=== PATIENT | female | born 1990 | race Caucasian/White ===

== ENCOUNTER 2020-06-11 07:17 | Emergency (ER) | payer MEDICAID, SELFPAY ==
[2020-06-11 07:24] VITALS: BP 129/82; PULSE 131; RESP 18; TEMP 37.2; O2SAT 96
--- NOTE | 2020-06-11 07:54 | W.ED.GENAD ---
Discharge Plan Disposition Patient Disposition: [facility] Condition: Stable Discharge Details Clinical Impression: Paranoid delusion, Suicidal ideation Primary Care Provider: Stephon Marquez ED Provider: Grace Cramer Home Meds and New Rx's Prescriptions: No Action ziprasidone HCl 80 MG capsule 80 mg PO AM RF: 0 docusate sodium [DOK] 100 MG capsule 100 mg PO PRN RF: 0 albuterol sulfate [ProAir HFA] 8.5 GM HFA aerosol inhaler 8.5 gm Inhalation PRN RF: 0 ziprasidone HCl 60 MG capsule 60 mg PO 2 TABS HS RF: 0 medroxyprogesterone 150 MG/ML suspension 1 ml IM DIRECTED RF: 0 perphenazine 2 MG tablet 2 mg PO DAILY RF: 0 sertraline 100 MG tablet 100 mg PO DAILY RF: 0 ziprasidone HCl 20 MG capsule 20 mg PO PRN RF: 0 benztropine 2 MG tablet 2 mg PO DAILY RF: 0 lorazepam 1 MG tablet 1 mg PO TID RF: 0 hydroxyzine HCl 50 mg Tablet 50 mg PO QHS RF: 0 lithium carbonate 300 mg Capsule 900 mg PO QAM RF: 0 hydroxyzine pamoate 25 mg Capsule 25 mg PO TID RF: 0 acetaminophen 650 mg Tablet 650 mg PO Q4H PRNRF: 0 diphenhydramine HCl 25 mg Tablet 25 - 50 mg PO QHS PRN (Reason: Insomnia) RF: 0 ibuprofen 200 mg Tablet 200 mg PO Q6H PRNRF: 0 Medical Decision Making <Roberto Lewis MD - Last Filed: 06/12/20 18:25> 29-year-old female with a history of schizophrenia, reportedly eloped from [facility], where she had been residing, by report, for 10 days. Presents stating demons are inside id. Her vital signs are within normal limits except for a regular tachycardia. On exam she appears dehydrated with dry mucous membranes. She appears to responding to internal stimuli, and well questions reports that demons have been persecuting her for 3 years, she has not been sleeping, the demons are trying to kill her. She evades answering whether she has been taking her regular medications which include sertraline, Zide trazodone, Ativan, perphenazine. She initially agrees to take her morning medications and eat breakfast. A CPSO ordered to sit with patient and RIAZ paged to see patient. While being evaluated by mental health screener, the patient noted not only her response to internal stimuli/auditory hallucinations, but also that she was feeling suicidal. Her screening medical examination was expanded to include laboratory analysis. She remains medically stable for further psychiatric evaluation. I again assumed care of the patient for the afternoon/evening of June 12. At approximately 6:15 PM she became agitated and threatened to leave following her second interview with the psychiatry team. She agreed to take Ativan by mouth, she may continue to use her Nicotrol. She continues to await further and final psychiatric disposition. Lab Data Lab results reviewed: Yes I reviewed the patient's lab results. Labs: Laboratory Results - last 24 hr 06/11/20 06/11/20 06/11/20 11:35 11:50 11:50 WBC RBC Hgb Hct MCV MCH MCHC RDW Plt Count MPV Immature Gran % Neutrophils % Lymphocytes % Monocytes % Eosinophils % Basophils % Nucleated RBC % Absolute Neutrophils Absolute Lymphocytes Absolute Monocytes Absolute Eosinophils Absolute Basophils Sodium 139 Potassium 4.3 Chloride 102 Carbon Dioxide 27.9 Anion Gap 9.1 BUN 9 Creatinine 0.8 Estimated GFR/1.73 m2 >= 60.00 Glucose 110 H Calcium 9.4 Total Bilirubin 0.2 AST 10 L ALT 21 Alkaline Phosphatase 87 Total Protein 7.4 Albumin 3.8 TSH 4.38 H Urine Color Urine Clarity Urine pH Ur Specific [place] Urine Protein Urine Ketones Urine Blood Urine Nitrite Urine Bilirubin Urine Urobilinogen Ur Leukocyte Esterase Urine RBC Urine WBC Ur Epithelial Cells Urine Crystals Urine Bacteria Urine Casts Urine Mucus Ur Culture Indicated? Urine Glucose Salicylates < 2.8 Urine Opiates Screen Urine Methadone Screen Acetaminophen < 2 Ur Barbiturates Screen Ur Tricyclics Screen Ur Amphetamines Screen U Benzodiazepines Scrn Urine Cocaine Screen Ur THC Screen Ethyl Alcohol < 3.0 COVID-19 Source Cancelled SARS-CoV-2 (PCR) Cancelled 06/11/20 06/11/20 06/11/20 11:50 12:36 12:36 WBC 17.86 H RBC 4.92 Hgb 14.1 Hct 42.7 MCV 86.8 MCH 28.7 MCHC 33.0 RDW 12.3 Plt Count 357 MPV 8.9 Immature Gran % 0.6 Neutrophils % 70.2 Lymphocytes % 23.7 Monocytes % 5.0 Eosinophils % 0.2 Basophils % 0.3 Nucleated RBC % 0 Absolute Neutrophils 12.54 H Absolute Lymphocytes 4.23 H Absolute Monocytes 0.89 H Absolute Eosinophils 0.04 Absolute Basophils 0.05 Sodium Potassium Chloride Carbon Dioxide Anion Gap BUN Creatinine Estimated GFR/1.73 m2 Glucose Calcium Total Bilirubin AST ALT Alkaline Phosphatase Total Protein Albumin TSH Urine Color Yellow Urine Clarity Clear Urine pH 7.0 Ur Specific [place] 1.025 Urine Protein Negative Urine Ketones Negative Urine Blood Large H Urine Nitrite Negative Urine Bilirubin Negative Urine Urobilinogen 0.2 Ur Leukocyte Esterase Negative Urine RBC 20-50 H Urine WBC 5-10 Ur Epithelial Cells Moderate Urine Crystals Negative Urine Bacteria Few Urine Casts Negative Urine Mucus Trace Ur Culture Indicated? No/sq. contamination Urine Glucose Negative Salicylates Urine Opiates Screen Negative Urine Methadone Screen Negative Acetaminophen Ur Barbiturates Screen Negative Ur Tricyclics Screen Negative Ur Amphetamines Screen Negative U Benzodiazepines Scrn Negative Urine Cocaine Screen Negative Ur THC Screen Negative Ethyl Alcohol COVID-19 Source SARS-CoV-2 (PCR) 06/11/20 12:55 WBC RBC Hgb Hct MCV MCH MCHC RDW Plt Count MPV Immature Gran % Neutrophils % Lymphocytes % Monocytes % Eosinophils % Basophils % Nucleated RBC % Absolute Neutrophils Absolute Lymphocytes Absolute Monocytes Absolute Eosinophils Absolute Basophils Sodium Potassium Chloride Carbon Dioxide Anion Gap BUN Creatinine Estimated GFR/1.73 m2 Glucose Calcium Total Bilirubin AST ALT Alkaline Phosphatase Total Protein Albumin TSH Urine Color Urine Clarity Urine pH Ur Specific [facility] Urine Protein Urine Ketones Urine Blood Urine Nitrite Urine Bilirubin Urine Urobilinogen Ur Leukocyte Esterase Urine RBC Urine WBC Ur Epithelial Cells Urine Crystals Urine Bacteria Urine Casts Urine Mucus Ur Culture Indicated? Urine Glucose Salicylates Urine Opiates Screen Urine Methadone Screen Acetaminophen Ur Barbiturates Screen Ur Tricyclics Screen Ur Amphetamines Screen U Benzodiazepines Scrn Urine Cocaine Screen Ur THC Screen Ethyl Alcohol COVID-19 Source Nasal/nares SARS-CoV-2 (PCR) <Kingsley Brown, - Last Filed: 06/11/20 16:52> FINDINGS: Lungs: Unremarkable. No consolidation. Pleural spaces: Unremarkable. No pleural effusion. No pneumothorax. Heart/Mediastinum: Unremarkable. No cardiomegaly. Bones/joints: Unremarkable. IMPRESSION: No acute findings. Thank you for allowing us to participate in the care of your patient. Dictated and Authenticated by: Ulices Arvizu MD 06/11/2020 4:24 PM Eastern Time ([place] & [place]) <Michael Tafoya MD - Last Filed: 06/13/20 00:25> patient sleeping and awakens easily, is currently voluntary for psych placement for decompensated schizophrenia, will remain in the ED until placement found as no beds available on inpatient side to admit her. She does have a leukocytosis but has no fevers or other infectious symptoms and is likely reactive as she was reportedly agitated earlier. pt signed out to me pending psych placement, now involuntary and had second cert per sin. Is now sleeping in no distress, will continue to monitor until a bed becomes available <Grace Cramer DO - Last Filed: 06/13/20 08:06> 06/12/20 0800 --please see previous providers notes for initial presentation, exam, plan and course. 0915 --patient evaluated by [facility] at bedside. Patient is stating she wants to leave. She is still having delusions and states she is not suicidal only depressed. Patient is refusing to voluntarily stay. Discussed with Jasmin from [facility] and EE paperwork completed. 1330 --patient standing in doorway demanding that someone give her her clothes. She is raising her voice and stating that the CPSO outside her room has been yelling Fk you at her. She is stating that the staff has done nothing to help her and that they are sucking the life out of the patients . Patient was able to be redirected with her medication that is now due which is ativan and zoloft. 1530 --Case endorsed to oncoming provider to continue to monitor while awaiting placement 06/13/20 0730 -- Case endorsed plan for potential transfer to [place] today. 0800 --patient accepted for transfer to [place]. Accepting physician Dr. Rolle. Medical Records Medical records reviewed: Yes I reviewed the patient's medical records. HPI <Roberto Lewis MD - Last Filed: 06/12/20 18:25> General Mode of arrival: ambulatory. Date/Time Provider Initiated Documentation: 06/11/20 07:37. Limitations to Documentation: no limitations. Information obtained by: patient. History of Present Illness 29 year old F presents to the emergency department with the chief complaint of Demons are in my body, Quality is described as constant, Patient started experiencing this unknown No relieving factors improve symptom(s), No exacerbating factors reported . Patient notes denies chest pain, cough and headaches. Related Data Home Medications Medication Instructions Recorded Confirmed medroxyprogesterone 1 ml IM DIRECTED 06/30/13 06/11/20 benztropine 2 mg PO DAILY 01/08/14 05/10/14 lorazepam 1 mg PO TID 01/08/14 06/11/20 perphenazine 2 mg PO DAILY 01/08/14 05/10/14 sertraline 100 mg PO DAILY 01/08/14 06/11/20 ziprasidone HCl 20 mg PO PRN 01/08/14 05/10/14 albuterol sulfate [Proair Hfa] 8.5 gm INHALATION PRN inhaler 08/30/15 06/11/20 docusate sodium [Dok] 100 mg PO PRN 08/30/15 06/11/20 ziprasidone HCl 60 mg PO 2 TABS HS 08/30/15 ziprasidone HCl 80 mg PO AM 08/30/15 acetaminophen 650 mg PO Q4H PRN 06/12/20 06/12/20 diphenhydramine HCl 25 - 50 mg PO QHS PRN 06/12/20 06/12/20 hydroxyzine HCl 50 mg PO QHS 06/12/20 06/12/20 hydroxyzine pamoate 25 mg PO TID 06/12/20 06/12/20 ibuprofen 200 mg PO Q6H PRN 06/12/20 06/12/20 lithium carbonate 900 mg PO QAM 06/12/20 06/12/20 Allergies Allergy/AdvReac Type Severity Reaction Status Date / Time haloperidol [From Haldol] Allergy Severe Anaphylaxsi Unverified 06/11/20 07:34 s haloperidol lactate Allergy Severe Anaphylaxsi Unverified 06/11/20 07:34 [From Haldol] s paroxetine HCl [From Paxil] AdvReac Intermediate Nausea Unverified 06/11/20 07:34 gluten AdvReac Mild Unverified 06/11/20 07:34 General Stated Complaint: PsychEval PATRIC: 2 Review of Systems <Roberto Lewis MD - Last Filed: 06/12/20 18:25> Narrative: Eloped from care bed. No known recent illness. PFSH <Roberto Lewis MD - Last Filed: 06/12/20 18:25> Medical History BMI 45.0-49.9, adult Celiac disease Contraception management Depo Provera since 2012. 08/2015 Requests Nexplanon. Exercise-induced asthma Paranoid type schizophrenia, chronic state Adult onset. Controlled on meds. Tobacco use Surgical History repair of lacerated finger tendon L hand Family History hx of family mental illness Schizophrenia Mother Stroke Social History Smoking/Tobacco Use Status: Current every day Smoking risk assessment performed?: Yes Drug use: Never Substance use type: does not use Do you feel safe at home: No Do you feel safe in your relationship?: No Exam <Roberto Lewis MD - Last Filed: 06/12/20 18:25> Narrative Exam Narrative: GEN: awake, alert, well groomed, interactive. HEAD: Normocephalic, atraumatic ENT: Mucous membranes dry, oropharynx unremarkable, External ear exam unremarkable EYES: PERRL, EOMI NECK: Full ROM, no OSBALDO, no menigismus CHEST/RESP: Nontender, clear to auscultation bilateral, no wheeze/rhonchi/rales CARDIOVASCULAR: Regular and tachycardic, no murmur, rub grady. 2+ Rad pulse bilateral ABDOMEN: Soft, nontender, no mass. +Bowel sounds EXT: Full ROM, no edema, no rash Neuro: Grossly normal neurologic exam, conversant, interactive. Psych: Speech fluent, thoughts incongruent, affect bizarre, tangential thoughts, states she hears demons speaking to her, stating they are going to kill her Course <Roberto Lewis MD - Last Filed: 06/12/20 18:25> Vital Signs Vital signs: Vital Signs Temperature 37.2 C 06/11/20 07:24 Pulse 131 H 06/11/20 07:24 Respiratory Rate 18 06/11/20 07:24 Blood Pressure 129/82 06/11/20 07:24 Pulse Oximetry 96 06/11/20 07:24 Temperature 37.2 C 06/11/20 07:24 Pulse 131 H 06/11/20 07:24 Respiratory Rate 18 06/11/20 07:24 Blood Pressure 129/82 06/11/20 07:24 Blood Pressure Position Supine 06/11/20 07:24 Pulse Oximetry 96 06/11/20 07:24 Oxygen Delivery Method Room Air 06/11/20 07:24 Oxygen Flow Rate 0 06/11/20 07:24 Sign Out <Roberto Lewis MD - Last Filed: 06/12/20 18:25> Sign Out Data: Sign Out Comment: Voluntary, SI/Schizophrenia. Awaits placement Last updated by Roberto Lewis MD at 06/11/20 14:29 Sign Out Comment: Voluntary with SI/schizophrenia, awaiting placement. If patient does attempt to leave there is enough concern patient would need to be made involuntary. Patient given her evening dose of Geodon. She has also been given 2 doses of 2 mg Ativan during my management of her here. Awaiting placement by mental health. Anticipated discharge tomorrow between 3 PM and 7 PM. Last updated by Kingsley Brown DO at 06/11/20 22:09 Sign Out Comment: voluntary for SI and decompensated schizophrenia, no available beds inpatient here so will remain in the ED Last updated by Michael Tafoya MD at 06/11/20 23:30 Sign Out Comment: Patient now EE'ed. Holding patient in ED awaiting placement as she is now involuntary. Last updated by Grace Cramer DO at 06/12/20 15:23 Sign Out Comment: Involuntary, tentative txfr to [place] in AM Last updated by Roberto Lewis MD at 06/12/20 22:33 Sign Out Comment: is now involuntary and reportedly will go to [place] today Last updated by Michael Tafoya MD at 06/13/20 00:29
[2020-06-11] MEDS: LORazepam 1 MG TAB PO (08:02)
--- NOTE | 2020-06-11 08:45 | CMSP_ITS ---
- If Service Date Differs Date of service: 06/11/20 Time of Service: 08:45 Care Management Safety Plan Status: Voluntary VOLUNTARY FOR INPATIENT PSYCHIATRIC STABILIZATION. Patient is appropriate in all interactions since arriving at [facility]; Pt has demonstrated appropriate coping and communication skills, has articulated his or her needs and concerns and is fully engaged during staff interactions. A huddle is done with Dr. Lewis, ED provider, Clara, charge nurse, RHODA Saavedra, Jasmin, [facility], and CM. Luna Ghotra, nursing supervisor char house, is unable to attend. Safety plan has been established with patient, and care team, to adhere to patient goals, identify restrictions based on behavioral status, address nutrition, and determine allowed personal belongings, tools for hygiene and personal care. Determine level of activity including ambulation, level of supervision, visitors, and determine privileges based on behaviors and level of engagement by pt. SAFETY PLAN: 1. Will remain on suicide precautions. Permitted to remain in own clothes. 2. Will remain in room under direct supervision of one-on-one staff at all times provided by CPSO, DINORA, SCHOOL BOAT DRIVER practice coordinator. 3. May have paper cups, plates, finger foods as well as a cardboard spoon with which to eat meals. 4. Follow [facility] Management of the Admitted Behavioral Health Patient policy. 5. Comfort bath system only. 6. No personal belongings. 7. Visitors-No visitors at this time 8. Activities: Coloring book and crayons. 9. Bathroom privileges with escort in the ED. 10. Phone: No phone privileges at this time. 11. Due to VOLUNTARY status, if patient wishes to leave [facility], staff will contact [facility] Crisis Screener ([phone]) and On-Call Director Of Informatics ([phone]) as soon as possible. In the event of elopement, notify [place] [employer] ([phone]). Patient is currently voluntarily at [facility] and seeking inpatient admission when a bed becomes available. [facility] Frontline Collision Repairer will continue seeking p lacement. Please contact the Product Safety Professional Director Of Informatics ([phone]) and [facility] Collision Repairer ([phone]) for any needed changes in the Safety Plan. Safety plan has been provided to interdepartmental care team.
--- NOTE | 2020-06-11 08:45 | PDOC.CMSAFED ---
- If Service Date Differs Date of service: 06/11/20 Time of Service: 08:45 Care Management Safety Plan Status: Voluntary VOLUNTARY FOR INPATIENT PSYCHIATRIC STABILIZATION. Patient is appropriate in all interactions since arriving at [facility]; Pt has demonstrated appropriate coping and communication skills, has articulated his or her needs and concerns and is fully engaged during staff interactions. A huddle is done with Dr. Lewis, ED provider, Clara, charge nurse, RHODA Saavedra, Jasmin, [facility], and CM. Luna Ghotra, nursing property management supervisor, is unable to attend. Safety plan has been established with patient, and care team, to adhere to patient goals, identify restrictions based on behavioral status, address nutrition, and determine allowed personal belongings, tools for hygiene and personal care. Determine level of activity including ambulation, level of supervision, visitors, and determine privileges based on behaviors and level of engagement by pt. SAFETY PLAN: 1. Will remain on suicide precautions. Permitted to remain in own clothes. 2. Will remain in room under direct supervision of one-on-one staff at all times provided by CPSO, DINORA, BELT LOOP MACHINE OPERATOR hide or skin buffer. 3. May have paper cups, plates, finger foods as well as a cardboard spoon with which to eat meals. 4. Follow [facility] Management of the Admitted Behavioral Health Patient policy. 5. Comfort bath system only. 6. No personal belongings. 7. Visitors-No visitors at this time 8. Activities: Coloring book and crayons. 9. Bathroom privileges with escort in the ED. 10. Phone: No phone privileges at this time. 11. Due to VOLUNTARY status, if patient wishes to leave [facility], staff will contact [facility] Crisis Screener ([phone]) and On-Call International Recruiter ([phone]) as soon as possible. In the event of elopement, notify [place] [employer] ([phone]). Patient is currently voluntarily at [facility] and seeking inpatient admission when a bed becomes available. [facility] Frontline Sensory Scientist will continue seeking placement. Please contact the Lawnmower Repair Mechanic International Recruiter ([phone]) and [facility] Sensory Scientist ([phone]) for any needed changes in the Safety Plan. Safety plan has been provided to interdepartmental care team.
[2020-06-11 11:56] LABS: Abs Immature Grans 0.11 10^3/uL (0.0-0.06); Absolute Basophil Count 0.05 10^3/uL (0.0-0.2); Basophils % 0.3; Eosinophils % 0.2; HCT 42.7 % (36.0-46.0); HGB 14.1 g/dL (11.2-15.7); Immature Grans % 0.6; Lymphocytes % 23.7; MCH 28.7 pg (27.0-33.0); MCV 86.8 fL (80-95); MPV 8.9 fL (8.0-11.0); Neutrophils % 70.2; Nucleated RBC 0 %; Platelet Count 357 10^3/uL (130-400); RBC 4.92 10^6/uL (3.93-5.22); RDW 12.3 % (11.7-14.6); RDW-SD 39.3 fL; WBC 17.86 10^3/uL (4.4-10.8)
[2020-06-11 11:57] LABS: Absolute Eosinophil Count 0.04 10^3/uL (0.0-0.7); Absolute Lymphocyte Count 4.23 10^3/uL (1.2-3.4); Absolute Monocyte Count 0.89 10^3/uL (0.1-0.8); Absolute Neutrophil Count 12.54 10^3/uL (1.2-6.7)
[2020-06-11 12:20] LABS: Salicylate < 2.8 mg/dL (<2.8)
[2020-06-11 12:21] LABS: Acetaminophen < 2 ug/mL (10-30)
[2020-06-11 12:28] LABS: ALT 21 U/L (14-59); AST 10 U/L (15-37); Albumin 3.8 g/dL (3.4-5.0); Alkaline Phosphatase 87 U/L (46-116); Anion Gap 9.1 mmol/L (3-11); BUN 9 mg/dL (7-18); Bilirubin, Total 0.2 mg/dL (0.2-1.0); CO2 27.9 mmol/L (21.0-32.0); CREATININE 0.8 mg/dL (0.55-1.02); Calcium 9.4 mg/dL (8.5-10.1); Chloride 102 mmol/L (98-107); Glucose 110 mg/dL (74-106); Potassium 4.3 mmol/L (3.5-5.1); Sodium 139 mmol/L (136-145); TSH 4.38 uIU/mL (0.36-3.74); Total Protein 7.4 g/dL (6.4-8.2)
[2020-06-11 12:29] LABS: ETHANOL BLOOD < 3.0 mg/dL (<3)
[2020-06-11 12:45] LABS: Bilirubin Negative (Negative); Blood Large (Negative); Clarity Clear (Clear); Glucose Negative (Negative); Ketones Negative (Negative); Leukocyte Esterase Negative (Negative); Nitrite Negative (Negative); Specific Gravity 1.025 (1.005-1.025); Urobilinogen 0.2 EU/dL (Up TO 0.2)
[2020-06-11 12:58] LABS: Bacteria Few HPF (Negative); Casts Negative LPF (Negative); Crystals Negative HPF (Negative); Epithelial Cells Moderate HPF (Negative); Mucus Trace (Negative); RBC 20-50 HPF (0-2)
[2020-06-11 12:58] LABS: Source Nasal/Nares
[2020-06-11 12:59] LABS: C & S Indicated? No/Sq. Contamination
[2020-06-11 13:10] LABS: *AMPHETAMINES SCREEN URINE Negative (Negative); *BARBITURATES SCREEN URINE Negative (Negative); *BENZODIAZEPINES SCREEN URINE Negative (Negative); Cannabinoids THC Negative (Negative); Cocaine Screen,Urine Negative (Negative); METHADONE URINE SCREEN Negative (Negative); OPIATES URINE SCREEN Negative (Negative)
[2020-06-11 13:13] LABS: Tricyclic Antidepressants Negative (Negative)
[2020-06-11 13:52] LABS: COVID-19 PCR Negative (Negative)
--- NOTE | 2020-06-11 15:05 | PDOC.MHCN ---
Date of service: 06/11/20 Time of Service: 15:05 Mental Health Crisis Note Presenting Issue How did you arrive at the ED and why did you come: Pt arrived via walking after she left he Care Bed AMA. She was described as yelling, posturing with her body and spitting toward CARE Bed staff. Precipitating Factors Pt endorsed Si she could not answer HI questions. She is delusional and parnaoid thinking that people are witches and there are demons at the CARE Bed. Disposition BEHAVIOR: Pt is sleepy right now as she took her medications. She continues to display delusional thoughts and paranoia. EYE CONTACT: Pt is unable to make eye contact as she is tired. MOOD: Pt is agitated that she is not mental. AFFECT: Affect is flat. APPETITE: Pt's appetite is not assessed. SLEEP(trouble falling/staying asleep: Pt reported she has not slept in 3 years. She has been sleeping all morning. Plan Pt reluctantly accepted treatment today. She does not believe she has a mental illness but instead has a brain cancer and needs to have my cervix removed. She is at this time voluntary however. If she tries to or wants to leave she will need to reevaluated and potentially EE'd. Pt will be reassessed daily by [facility] to assess needs and placement options. Signature Clinician's Name/Title: Jasmin Corona MS, [facility] [place] Emergency Services Clinician, [facility]
--- NOTE | 2020-06-11 15:30 | DI.RAD_ITS ---
EXAM: XR PORTABLE CHEST AP CLINICAL HISTORY: r/o pneumonia TECHNIQUE: 2D digital imaging was performed. COMPARISON: CR CHEST 2 VIEWS PA,LAT from 05/10/2014 FINDINGS: The lungs are suboptimally inflated. Heart size is normal. No infiltrate, effusion or pneumothorax is seen. There is no gross evidence rib fracture. IMPRESSION: Somewhat limited exam. No acute abnormality.
[2020-06-11] MEDS: LORazepam 1 MG TAB 2 MG PO ×2 (15:54→19:17)
--- NOTE | 2020-06-11 16:05 | CMPROGNOTE_ITS ---
- If Service Date Differs Date of service: 06/11/20 Time of Service: 16:05 Care Management Progress Note S/O: Mary Grace presents in the ED after leaving the [facility] Care Bed AMA. She receives services through the PUBLIC SAFETY TELECOMMUNICATOR Program at [facility] and has a diagnosis of paranoid type schizophrenia of record. Mary Grace states that demons and witches are trying to kill her, and also reports suicidal ideation with a plan of purchasing a gun on the street and shooting herself. She is delusional and paranoid but she has remained calm since arriving at [facility]. It is unclear if Mary Grace has been taking her psych medications as prescribed. Mary Grace was evaluated by Jasmin [facility] crisis screener, this morning and was found to meet criteria for a psychiatric hospitalization. At this time, Mary Grace is voluntarily seeking placement. If she leaves or no longer wishes to be hospitalized, she will be reassessed and potentially placed on involuntary status. A: Mary Grace is a 29 year old female admitted to [facility] on 06/11/2020 for delusions, paranoia, and suicidal ideation. P: Referrals have been sent to [facility], [facility], and [facility] for [facility]. Mary Grace will remain at [facility] while [facility] continues to seek placement for her. CM will continue to follow.
--- NOTE | 2020-06-11 16:24 | DI.VRAD_ITS ---
PROCEDURE INFORMATION: Exam: XR Chest Exam date and time: 06/11/2020 4:14 PM Age: 29 years old Clinical indication: Pain; Other: Pui for covid TECHNIQUE: Imaging protocol: XR of the chest Views: 1 view. COMPARISON: CR CHEST 2 VIEWS PA,LAT 05/10/2014 8:20 PM FINDINGS: Lungs: Unremarkable. No consolidation. Pleural spaces: Unremarkable. No pleural effusion. No pneumothorax. Heart/Mediastinum: Unremarkable. No cardiomegaly. Bones/joints: Unremarkable. IMPRESSION: No acute findings. Dictated and Authenticated by: Ulices Arvizu MD. Ordering:ADELE Wynn MD
--- NOTE | 2020-06-11 17:45 | RT.EKG_ITS ---
APPROVED REPORT Exam: Resting ECG Patient Location: E HR:96 bpm ECG Measurements Heart Rate 96 AXIS MT 155 P 12 QRSd 86 QRS 28 QT 357 T 18 QTc 450 Conclusion Sinus rhythm...normal P axis, V-rate 60- 99
[2020-06-11 18:31] LABS: HCT 43.9 % (36.0-46.0); HGB 14.2 g/dL (11.2-15.7); MCH 28.3 pg (27.0-33.0); MCHC 32.3 % (32.0-36.0); MCV 87.5 fL (80-95); MPV 8.6 fL (8.0-11.0); Platelet Count 347 10^3/uL (130-400); RBC 5.02 10^6/uL (3.93-5.22); RDW 12.5 % (11.7-14.6); RDW-SD 39.8 fL; WBC 18.72 10^3/uL (4.4-10.8)
[2020-06-11 18:43] LABS: Lithium < 0.2 mmol/l (0.6-1.2)
[2020-06-11] MEDS: Ziprasidone 20 MG CAP (19:16)
--- NOTE | 2020-06-11 19:23 | NUR.NOTE ---
Nursing Note: Pt had bubble packs and bottles of home medications, 3 zip lock bags were dropped into pharmacy drop box for safe storage.
--- NOTE | 2020-06-11 19:42 | NUR.NOTE ---
Nursing Note: pt provided with incentive spirometer and was able demonstrate proper use.
[2020-06-12] MEDS: LORazepam 1 MG TAB PO ×4 (08:11→18:26)
[2020-06-12] MEDS: Sertraline 50 MG TAB 100 MG PO (08:12)
[2020-06-12] MEDS: Lithium Carbonate 300 MG CAP 900 MG PO (09:21)
[2020-06-12] MEDS: hydrOXYzine PAMOATE 25 MG CAP PO ×2 (09:22→13:45)
[2020-06-12 10:11] VITALS: RESP 16
--- NOTE | 2020-06-12 12:55 | CMSP_ITS ---
- If Service Date Differs Date of service: 06/12/20 Time of Service: 12:55 Care Management Safety Plan Status: Involuntary INVOLUNTARY FOR INPATIENT PSYCHIATRIC STABILIZATION. Safety plan has been established to meet the needs of the patient, and consideration of the care team, to adhere to patient goals, identify restrictions based on behavioral status, address nutrition, and determine allowed personal belongings, tools for hygiene and personal care. Determine level of activity including ambulation, level of supervision, visitors, and determine privileges based on behaviors and level of engagement by pt. SAFETY PLAN: 1. Will remain on SI/HI precautions. In Paper Clothes 2. Will remain in room under direct supervision of one-on-one staff at all times provided by CPSO, CELL COVERER, SHOES HAND SEWER technical instructor. 3. May have paper cups, plates, finger foods as well as a cardboard spoon with which to eat meals. 4. Follow [facility] Management of the Admitted Behavioral Health Patient policy. 5. Permitted to shower daily at RN discretion when ED volume is low. 6. No personal belongings. 7. Visitors: None at this time. 8. Activities: Music tablet, coloring books, crayons, and other activities at RN discretion. 9. Bathroom privileges with escort. 10. Phone: May make and receive phone calls based on behavior and at RN discretion. 11. Due to INVOLUNTARY status, patient is being held at [facility] by the Department of Mental Health ([facility]) until 2nd certification by [facility] Psychiatrist can be performed (within 24 hours). Staff will provide de-escalation support (CPI) as needed. If patient wishes to leave [facility], staff will contact [facility] Crisis Screener ([phone]) and On-Call Bottle And Glass Inspector ([phone]) as soon as possible. In the event of elopement, notify [place] [employer] ([phone]). Patient is currently involuntarily at [facility]. [facility] Frontline Government Clerk will continue seeking placement. Please contact the Litigation Attorney Associate Bottle And Glass Inspector ([phone]) for any needed changes to Safety Plan. Safety plan has been provided to interdepartmental care team. Patient will be transported by uMentioned at time of discharge.
--- NOTE | 2020-06-12 13:36 | CMPROGNOTE_ITS ---
- If Service Date Differs Date of service: 06/12/20 Time of Service: 13:36 Care Management Progress Note S/O: Mary Grace was evaluated by Jasmin, [facility] Crisis Screener, this morning and subsequently placed on involuntary status. She is laying in bed when CM comes to meet with her. Mary Grace reports we are being abusive to her by holding her in a room and not allowing her to leave. CM explains to her that she is currently on involuntary status and has to remain at the hospital. BRANDON briefly explains the EE process to Mary Grace and tells her she will be speaking with a State psychiatrist via zoom either this evening or in the morning. The psychiatrist will then decide whether she remains at [facility] while [facility] seeks placement for her or whether she is discharged. Mary Grace reports that Jasmin has made up a bunch of lies about her. She states she is on a POV (Order of Non-Hospitalization) and that a communications engineering technician ordered that she not be hospitalized because she is psychologically well. Mary Grace shares that she came to [facility] from the Care Bed because she did not feel well and needed medical treatment. She goes on to say that there is nothing wrong with her mental health. She shares that she has plans with Anat Blackburn, her [facility] LIAISON INSPECTION LABORATORY ASSISTANT case filler, who is picking her up in a couple of days to take her shopping for items that she is in need of. She asks to speak with Anat. BRANDON calls the [facility] [place] office and leaves a message for Anat, asking that she call the ED to speak with Mary Grace. A: Mary Grace is a 29 year old female admitted to [facility] on 06/11/2020 for a psychiatric evaluation. P: [facility], [facility], and [facility] for review. Mary Grace will remain at [facility] on involuntary status while [facility] continues to seek placement for her.
--- NOTE | 2020-06-12 13:36 | PDOC.ERCMPRO ---
- If Service Date Differs Date of service: 06/12/20 Time of Service: 13:36 Care Management Progress Note S/O: Mary Grace was evaluated by Jasmin, [facility] Crisis Screener, this morning and subsequently placed on involuntary status. She is laying in bed when CM comes to meet with her. Mary Grace reports we are being abusive to her by holding her in a room and not allowing her to leave. CM explains to her that she is currently on involuntary status and has to remain at the hospital. BRANDON briefly explains the EE process to Mary Grace and tells her she will be speaking with a State psychiatrist via zoom either this evening or in the morning. The psychiatrist will then decide whether she remains at [facility] while [facility] seeks placement for her or whether she is discharged. Mary Grace reports that Jasmin has made up a bunch of lies about her. She states she is on a POV (Order of Non-Hospitalization) and that a depalletizer operator ordered that she not be hospitalized because she is psychologically well. Mary Grace shares that she came to [facility] from the Care Bed because she did not feel well and needed medical treatment. She goes on to say that there is nothing wrong with her mental health. She shares that she has plans with Anat Blackburn, her [facility] MIGRATION SPECIALIST case loader operator, who is picking her up in a couple of days to take her shopping for items that she is in need of. She asks to speak with Anat. BRANDON calls the [facility] [place] office and leaves a message for Anat, asking that she call the ED to speak with Mary Grace. A: Mary Grace is a 29 year old female admitted to [facility] on 06/11/2020 for a psychiatric evaluation. P: [facility], [facility], and [facility] for review. Mary Grace will remain at [facility] on involuntary status while [facility] continues to seek placement for her.
--- NOTE | 2020-06-12 14:03 | PDOC.MHCN ---
Date of service: 06/12/20 Time of Service: 14:04 Mental Health Crisis Note Presenting Issue How did you arrive at the ED and why did you come: How did you arrive at the ED and why did you come: Pt arrived via walking after she left he Care Bed AMA. She was described as yelling, posturing with her body and spitting toward CARE Bed staff. Precipitating Factors Pt admitted to having SI this am when this clinician met with her. She changed her mind when She denied HI. Disposition BEHAVIOR: Pt is still presenting as delusional and paranoid. She was cooperative up until she learned that she was going to be placed on EE status because she would not agree to voluntary treatment. EYE CONTACT: good MOOD: depressed AFFECT: flat APPETITE: good SLEEP(trouble falling/staying asleep: reported good Plan Pt was placed on EE status. Referrals were sent to [facility], [facility] and [facility]. Pt will remain at [facility] and be screened twice daily by [facility] until placement is found. Pt's team was updated on the status of Pt not being put on an EE.
--- NOTE | 2020-06-12 17:49 | NUR.NOTE ---
Nursing Note: Patient's next of kin, her grandmother Veronika Harris, called for an update on patient. She expresses her concern and worry regarding the patient and that she is alone suffering in this condition. She understands that her phone call may trigger the patient's behaviors, especially right before her 2nd certification. Grandmother seems very supportive and would like to be notified when the patient is transported to another facility. Phone number on file.
[2020-06-12 20:20] VITALS: BP 121/81; PULSE 106; RESP 16; TEMP 36.7; O2SAT 97
--- NOTE | 2020-06-12 22:36 | NUR.NOTE ---
Nursing Note: CPSO switched with alternate, as pt states she's stabbing things into my spine etherially and pt's behavior appeared to be deescalated by the offer of a swap. Pt has reentered room and has no issue with current CPSO.
[2020-06-12] MEDS: LORazepam 1 MG TAB (22:58)
[2020-06-12] MEDS: hydrOXYzine HCL 50 MG TAB PO (23:00)
[2020-06-13 08:16] VITALS: BP 136/100; PULSE 112; RESP 20; TEMP 36.7; O2SAT 98
[2020-06-13] MEDS: Lithium Carbonate 300 MG CAP 900 MG PO (08:18)
[2020-06-13] MEDS: LORazepam 1 MG TAB PO (08:18)
[2020-06-13] MEDS: hydrOXYzine PAMOATE 25 MG CAP PO (08:18)
[2020-06-13] MEDS: Sertraline 50 MG TAB PO (08:19)
[2020-06-13 09:04] VITALS: BP 136/100; PULSE 112; RESP 20; TEMP 36.7; O2SAT 98
--- NOTE | 2020-06-13 09:07 | PDOC.ERCMPRO ---
- If Service Date Differs Date of service: 06/13/20 Time of Service: 08:20 Care Management Progress Note Mary Grace has been accepted for placement by the [facility]. She is scheduled to leave via mechanical assembly transport at 9:00 am this morning. Mary Grace is up when comes to meet with her. She reports she has been to the [facility] before, so she knows what to expect. She declines breakfast but does accept a cup of coffee. Mary Grace is calm and cooperative this a.m. and she leaves with [employer] without incident. - MH Services (Omit if N/A) Current MH Services: Psychiatric Inp ([facility])
--- NOTE | 2020-06-21 16:00 | PDOC.MHCN_ITS ---
Date of service: 06/21/20 Time of Service: 16:01 Mental Health Crisis Note Presenting Issue How did you arrive at the ED and why did you come: PT arrived to the [facility] ER 06.11.2020 early in the morning after leaving the [facility] CARE Bed AMA. Pt had voluntarily been at the CARE Bed since 06.04.2020. Precipitating Factors Pt endorsed current SI however unable to answer how long, or persistent thoughts have been. Disposition BEHAVIOR: Pt is lethargic and difficult to get a full assessment on. Will have to try once the meds wear off. EYE CONTACT: poor MOOD: Tired with some delusions and paraanoia AFFECT: Sleepy APPETITE: not assessed today SLEEP(trouble falling/staying asleep: Pt reports she has not slept in 3 years. Plan Pt was asked numerous times to voluntarily accept treatment in a psychiatric facility. Pt's response was tangential I have brain cancer this is not mental health. I need to have my cervix removed because of what happened to me. She did agree reluctantly to voluntary treatment and was informed that if she wanted to leave she would need to be assessed again prior to her leaving. Pt will need to be re-assessed. Due to the Pt's disposition it is this clinician's professional opinion that if she were to leave the hospital and be in the community her delusions place her at great risk of harm to self and others. Hospital placement is the only treatment appropriate at this time. Referrals sent to [facility]. [facility] was made aware of the voluntary acceptance. This clinician informed her team of the status. Signature Clinician's Name/Title: Jasmin Corona MS, [facility] Emergency Services Clinician, [facility]
== END 2020-06-13 08:40 | disposition short-term general hospital (02) ==
PROVIDERS: Emergency Medicine; Student in an Organized Health Care Education/Training Program; Emergency Provider Physician Assistant; PCP Internal Medicine
DX: F22 Delusional disorders (principal); R45.851 Suicidal ideations
CPT/HCPCS: 36415; 80053; 80307; 81025; 85027; 87635; 93005; 99285; 71045; 80178; 80320; 80329; 81003; 81015; 84443; 85025; 93010; 99284; J3490

== ENCOUNTER 2021-08-16 23:11 | Inpatient (IN) | payer MEDICAID, SELFPAY ==
[2021-08-16] VITALS (7 sets, daily range): BP systolic 148; BP diastolic 74; PULSE 107–121; RESP 17–28; TEMP 36.8; O2SAT 97–98
--- NOTE | 2021-08-16 23:04 | HPE_ITS ---
Date of service: 08/16/21 Time of Service: 23:05 Assessment and Plan Assessment and plan (1) DKA (diabetic ketoacidosis): Start date: 08/16/21 Status: Acute Assessment and plan: This is a 30-year-old lady who presents with DKA and new onset type 1 diabetes mellitus did not come for hospital emergency room. She was transferred to this facility because of lack of ICU level care. She will be on DKA protocol in the ICU with close monitoring. Overall she is doing well but may be difficult to extubate because of her mental illness. (2) Hypokalemia: Start date: 08/16/21 Status: Acute Assessment and plan: Replete IV as treatment for DKA per protocol. (3) Nausea and vomiting due to hyperglycemia: Status: Acute Assessment and plan: Symptomatic treatment with IV hydration. (4) Paranoid delusion: Status: Chronic Assessment and plan: Continue outpatient medications and monitor behavior. History of Present Illness History of Present Illness Chief Complaint: Nausea with vomiting and diarrhea, polydipsia Narrative: This is a 30-year-old female patient transferred from [facility] ED in COUNTS [facility] 234 BEDS AT THE [facility] with new onset insulin-dependent diabetes mellitus. She has a significant psychiatric history and with her altered mental status and symptoms of slight fatigue she was not noted to be necessarily in trouble other than possibly dehydrated with her high blood loss presenting with nausea, vomiting and diarrhea. She states that she was more thirsty than usual and urinating more than usual when interviewed. She is a poor historian. She offers no other significant history other than being overweight which is chronic but no other caregivers available for further history. He was transferred to this facility for ICU level of care for treatment of DKA and hypokalemia in light of her metabolic acidosis. Patient gives history that she had diarrhea and increased thirst for up to a week and then for the last 3 days has not been having diarrhea because of lack of intake. Patient presents to the ED at [facility] as he felt very dry, thirsty and was still having polyuria. Review of Systems Narrative: 13 point review system otherwise unrevealing or unavailable with patient being a poor historian with no accompanied caregivers. She does state that her legs have been hurting more since she was having blood loss and she has some abdominal discomfort with her diarrhea. She denies melena or hematochezia. She had no hematemesis. There is no fever or chills. PFSH All Active Problems (Updated 08/17/21 @ 06:40 by Alexander Conn) Nausea and vomiting due to hyperglycemia (Acute) Hypokalemia (Acute) DKA (diabetic ketoacidosis) (Acute) Paranoid delusion (Chronic) Suicidal ideation (Acute) Medical History BMI 45.0-49.9, adult Celiac disease Contraception management Depo Provera since 2012. 08/2015 Requests Nexplanon. Exercise-induced asthma Paranoid type schizophrenia, chronic state Adult onset. Controlled on meds. Tobacco use Surgical History repair of lacerated finger tendon L hand Family History hx of family mental illness Schizophrenia Mother Stroke Social History Smoking/Tobacco Use Status: Current every day Smoking risk assessment performed?: Yes Drug use: Never Substance use type: does not use Do you feel safe at home: No Do you feel safe in your relationship?: No Meds Allergies and Home Medications Allergies Allergy/AdvReac Type Severity Reaction Status Date / Time haloperidol [From Haldol] Allergy Severe Anaphylaxsi Unverified 06/11/20 07:34 s haloperidol lactate Allergy Severe Anaphylaxsi Unverified 06/11/20 07:34 [From Haldol] s paroxetine HCl [From Paxil] AdvReac Intermediate Nausea Unverified 06/11/20 07:34 gluten AdvReac Mild Unverified 06/11/20 07:34 Home Medications Medication Instructions Recorded Confirmed Type medroxyprogesterone 150 mg/mL 1 ml IM DIRECTED 06/30/13 06/11/20 History intramuscular suspension benztropine 2 mg tablet 2 mg PO DAILY 01/08/14 05/10/14 History lorazepam 1 mg tablet 1 mg PO TID 01/08/14 06/11/20 History perphenazine 2 mg tablet 2 mg PO DAILY 01/08/14 05/10/14 History sertraline 100 mg tablet 100 mg PO DAILY 01/08/14 06/11/20 History ziprasidone HCl 20 mg capsule 20 mg PO PRN 01/08/14 05/10/14 History albuterol sulfate 90 mcg/actuation 8.5 gm inhalation PRN 08/30/15 06/11/20 History aerosol inhaler (ProAir HFA) docusate sodium 100 mg capsule 100 mg PO PRN 08/30/15 06/11/20 History (DOK) ziprasidone HCl 60 mg capsule 60 mg PO 2 TABS HS 08/30/15 History ziprasidone HCl 80 mg capsule 80 mg PO AM 08/30/15 History acetaminophen 650 mg tablet 650 mg PO Q4H PRN 06/12/20 06/12/20 History diphenhydramine HCl 25 mg tablet 25 - 50 mg PO QHS PRN Insomnia 06/12/20 06/12/20 History hydroxyzine HCl 50 mg tablet 50 mg PO QHS 06/12/20 06/12/20 History hydroxyzine pamoate 25 mg capsule 25 mg PO TID 06/12/20 06/12/20 History ibuprofen 200 mg tablet 200 mg PO Q6H PRN 06/12/20 06/12/20 History lithium carbonate 300 mg capsule 900 mg PO QAM 06/12/20 06/12/20 History Exam Narrative Exam Narrative: General: Morbidly obese in moderate distress from her acute illness, flattened affect with good eye contact. Alert and oriented to person place at least. HEENT: Normocephalic, eyes with pupils equal and reactive light symmetrically, extraocular movements active sclera anicteric. Oropharynx with dry mucosa and fair dentition. Neck: Supple without JVD. Back: Stooped posture without CVA tenderness. Lungs: Clear to auscultation and percussion. Fair aeration. Breast: Exam deferred. Heart: Regular rate and rhythm with no murmurs or gallops appreciated. Abdomen: Obese contour, soft but tender diffusely without rebound but no guarding. Bowel sounds positive all quadrants. Genitalia/rectal: Exam deferred. Extremities: Nonpitting edema lower extremities, good cap refill, no clubbing, cyanosis or pitting edema. Joints have no swelling with fair range of motion. Skin: Pale, warm and dry with decreased turgor. Neuro: Cranial nerves II through XII grossly intact, no focal motor deficits. Psych: Flattened affect with depressed mood. Slowed mentation with monotonous slow voice. No abnormal thought processes. Remote and recent memory grossly intact. Patient is poor historian. Results Labs Result diagrams: 08/17/21 04:30 08/17/21 04:30
--- OUTSIDE RECORDS SUMMARY | 2021-08-16 23:27 | XMS_ITS | Continuity of Care Document ---
:1990 Author Organization [facility] Address [address] [place] [address] Care Team Providers Name Role Phone Sana Lo Primary Care Physician Allergies, Adverse Reactions, Alerts Allergen Type Severity Reaction Last Updated Verified Status gluten Adverse Reaction Unknown February 08, 2019 Y Active haloperidol Adverse Reaction Unknown February 08, 2019 Y Active paroxetine Adverse Reaction Unknown February 08, 2019 Y Active Medications Active Medications Medication Units Route Start Date Status Olanzapine MG February 07, 2019 Active Discontinued Medications Medication Units Route Start Date Discontinued Date Status [place] Carbonate ORAL February 07, 2019 February 07, 2019 Discontinued Trazodone February 07, 2019 February 07, 2019 Di scontinued Benztropine February 07, 2019 February 07, 2019 D iscontinued Lorazepam February 07, 2019 February 07, 2019 Di scontinued Fluoxetine MG February 07, 2019 February 07, 2019 Di scontinued Hydroxyzine Pamoate February 07, 2019February Discontinued Melatonin MG February 07, 2019 February 07, 2019 Di scontinued Melatonin MG February 07, 2019 February 07, 2019 Di scontinued Cariprazine [Vraylar] MG February 07, 2019 February 07, 2019 Discontinued Problem List Active Problems Medical Problem Onset Date Status UTI (urinary tract infection) Active Adjustment disorder with anxiety Active Acute bronchitis November 25, 2016 Auditory hallucinations Active Hallucination, visual Active Inactive/Resolved Problems Medical Problem Onset Date Status Laceration of index finger of left hand without complication Inactive Chronic cough Inactive Tobacco use disorder Inactive Procedures Procedure Date Status US Extremity NonVas RT Limited March 12, 2010 completed Shoulder 2 vw Min RT March 06, 2010 completed Group A Streptococcus Screen (BRETT) compl eted Urine Culture active Relevant Diagnostic Tests and/or Laboratory Data Laboratory Results Test Date/Time Result Interp. Ref. Range Result Comment Urine RBC None seen /hpf Urine WBC 20-40 /hpf High Urine Squamous 2+ /hpf Epithelial Cells Urine Bacteria 4+ /hpf High Urine Mucus Present Urine Culture Done Yes URINE SPECIMEN CULTURED Urine Test Negative Urine Methadone Screen Negative ng/mL Microbiology Results Procedure Source Result Collection Date/Time Result Date/Time Advance Directives Advance Directive Response Recorded Date/Time Do we have a copy on file here at [facility]? No J 2018 2:16pm Does patient have an Advanced Directive? No March 06, 2010 10:42am Pt has a Living Will? No March 06, 2010 10:42am Pt has a Power of Truck Caterer? No March 06, 2010 10:42am Chief Complaint and Reason for Visit Encounter Admit Date Chief Complaint Reason for Visit Departed Emergency February 08, 2019 6:44am [facility] Discharge Instructions Additional Discharge Instructions You have an appointm ent tomorrow at 11 AM with [facility] Also have an [facility] 1 PM tomorrow. Please be sure to keep these important appointments. No Instructions/Education Provided Hospital Discharge Medications Medication Dose Units Route Sig Qty Days Order Date Status In structions Olanzapine MG February 07 Active 2018 [place] ORAL February 07, Discontinue d Carbonate 2018 Trazodone February 07, Discontin ued 2019 Benztropine February 07, Discont inued 2019 Lorazepam February 07, Discontin ued 2019 Fluoxetine MG February 07, Disconti nued 2018 Hydroxyzine February 07 Discont inued Pamoate 2019 Melatonin MG February 07, Discontin ued 2019 Melatonin MG February 07, Discontin ued 2019 Cariprazine MG February 07, Discont inued 2019 Encounters Encounter Facility Location Admit/Visit Discharge/Departure Atte nding Date Date Provider Departed [facility] Emergency February 08February 08, 2019 [facility] 2018 6:44am 1:14pm Departed [facility] Emergency February 07February 07, 2019 [facility] 2018 9:03pm 10:10pm Departed [facility] Emergency January 13January 13, 2019 [facility] 2018 5:35pm 6:18pm Departed [facility] Emergency September 08, 2018 September 08, 2018 2:15pm [facility] Department 1:00pm Departed [facility]February 20, [facility] 20, 2017 Kuldeep chin [facility] 2016 12:00am Con version ovider Office Visit Departed [facility] November 25November 25, 2016 Jaclyn [facility] 2016 12:00am Rhonda simon ovider Office Visit Departed [facility] April 14, April 14, 2013 Hal ent, [facility] in 2013 12:00am Convers ion ovider Surgery Office [facility] 10[facility] Laboratory July 09, 2009 July 09, 2009 11:59pm [facility] 5[facility]34[facility] Ana Laura [facility]erred Lab June 25June 25, 2009 [facility] 8:23[facility] Ana Laura [facility] April 09April 09, 2008 [facility] 12[facility]00[facility] March 15March 15, 2008 [facility] 2008 12:00am [facility] Emergency March 12, March 12, 2008 [facility] Department 2008 12:00am [facility] February 26February 27, 2008 [facility] 2007 12:00am [facility] Outpatient October 01, 2005 October 01, 2005 [facility] Con[facility] 12:00am Ana Laura [facility] Synergy October 12October 12, 2001 [facility] 2001 12:00am [facility] November 28November 28, 1998 Kuldeep vázquez [facility] Conversion 1998 12:00am [facility] May 18May 18, 1998 [facility] Care 1998 12:00am [facility] CONV Misc Comp March 08March 08, 1899 Med ent, Physician/Pr Addiction Mgmt Pain location 1899 12:00am Con version ovider Office Visit Functional Status Query Response Date Recorded Comment Comprehension Ability Unable to Comprehend February 08, 2019 7:46 am Query Response Date Recorded Comment Living Situation Home February 08, 2019 1:13pm Immunizations Immunization Name Date Given Type Tdap September 08, 2018 Administered Payers Payer Name Policy Type Covered Covered Relationship Subscriber Sub scriber Id Constitution Party Constitution Party Id FEP BLUE Commercial BALA [id number] Grandchild BALA EUBANKS [id number] CROSS (DO EUBANKS NOT USE) MEDICAID OF Medicaid [place] [id number] Self/Same [place] [id number] [place]A Patient EUBANKS SELF PAY Personal [place] Medicaid [place] [id number] [place] [id number] (DO NOT EUBANKS Patient EUBANKS USE) Plan of Care No Known Plan of Care Information Social History Query Response Date Recorded Comment Alcohol Use Yes February 08, 2019 8:45am socially Smoking Status Current every day smoker February 08, 2019 8:45am substance use type marijuana February 08, 2019 8:45am Query Response Start Date Stop Date Smoking Status Current every day smoker Vital Signs Vital Reading Result Reference Range Collection Date/ Time Height 5 ft 5 in February 07, 2019 9:05pm Weight 115.666 kg February 08, 2019 6:47am Temperature 98.6 F 97.6 F-99.6 F February 08, 2019 6:47am Pulse 102 BPM 60-100 February 08, 2019 6:47am Respiration 16 RPM 12-24 February 08, 2019 6:47am Pulse Oximetry 97 % 95-100 February 08, 2019 6:47am Blood Pressure Systolic 123 100-140 February 08, 2019 6:47am Blood Pressure Diastolic 93 50-85 [facility] 2018 6:47am Body Mass Index 44.6 February 20 7 3:38pm
--- OUTSIDE RECORDS SUMMARY | 2021-08-16 23:27 | XMS_ITS | Continuity of Care Document ---
:[address] [facility] Address [address] [place] [address] Care Team Providers Name Role Phone Sana Lo Primary Care Physician Allergies, Adverse Reactions, Alerts Allergen Type Severity Reaction Last Updated Verified Status haloperidol Adverse Reaction Unknown February 08, 2019 Y Active paroxetine Adverse Reaction Unknown February 08, 2019 Y Active Medications Active Medications Medication Units Route Start Date Status Ziprasidone Hcl UNK Unknown February 08, 2019 Active Sertraline UNK Unknown February 08, 2019 Active Lorazepam UNK ORAL February 08, 2019 Active Geodon February 08, 2019 Active Marijuana February 08, 2019 Active Olanzapine MG February 07, 2019 Active Discontinued Medications Medication Units Route Start Date Discontinued Date Status [place] Carbonate ORAL February 07, 2019 February 07, [...] Active Problems Medical Problem Onset Date Status Acute psychosis Active UTI (urinary tract infection) Active Adjustment disorder [...] Streptococcus Screen (BRETT) compl eted Urine Culture completed Relevant Diagnostic Tests and/or Laboratory Data Laboratory [...] have [place] [facility] [place] J trevor 2018 2:16pm Does patient have an Advanced Directive? No March 06, 2010 10:42am Pt has a Living Will? No March 06, 2010 10:42am Pt has a Power of Cargo Broker? No March 06, 2010 10:42am Chief Complaint and Reason for Visit Encounter Admit Date Chief Complaint Reason for Visit Departed Emergency January 13, 2019 5:35pm [facility] Discharge Instructions No known hospital discharge instructions. Hospital Discharge Medications Medication Dose Units Route Sig Qty Days Order Date Status In structions Ziprasidone Hcl UNK Unknown February 08, Ac tive 2018 Sertraline UNK Unknown February 082018 Lorazepam UNK ORAL February 08 Active 2019 Geodon February 08 Active 2019 Marijuana February 08 Active 2019 Olanzapine MG February 07 Active 2019 [place] ORAL February 07, Discontinue d Carbonate 2019 Trazodone February 07, Discontin ued 2019 Benztropine February 07, Discont inued 2019 Lorazepam February 07, Discontin ued 2019 Fluoxetine MG February 07, Disconti nued 2018 Hydroxyzine February 07, Discont inued Pamoate 2019 Melatonin MG February 07, Discontin ued 2019 Melatonin MG February 07, Discontin ued 2019 Cariprazine MG February 07, Discont inued 2019 Encounters Encounter Facility Location Admit/Visit Discharge/Departure Atte nding Date Date Provider Departed [facility] Emergency February 08February 09, 2019 [facility] Department 2018 10:48pm 10:17am Departed [facility] Emergency February 08February 08, 2019 [facility] Department 2018 6:44am 1:14pm Departed [facility] Emergency February 07February 07, 2019 [facility] Department 2018 9:03pm 10:10pm Departed [facility] Emergency January 13January 13, 2019 [facility] Department 2018 5:35pm 6:18pm Departed [facility] Emergency September 08, 2018 September 08, 2018 2:15pm [facility] Department 1:00pm Departed [facility] Urgent [facility] February 20February 20, [facility] 2016 8:36pm 8:37pm Tony Departed [facility] February 20February 20, 2017 Kuldeep chin [facility]ician[facility] 2016 12:00am Con version ovider Office Visit Departed [facility] November 25November 25, 2016 Jaclyn [facility] 2016 12:00am Rhonda alfred ovider Office Visit Departed [facility] April 14, April 14, 2013 Med ent, [facility]ician[facility] in 2013 12:00am Convers ion ovider Surgery Office Visit Registered [facility] 2010 1:34pm [facility] Registered [facility] March 06, [facility] 10:41am [facility] July 09, 2009 July 09, 2009 11:59pm [facility] 5:34[facility] Ana [facility] June 25June 25, 2009 [facility] 2009 8:23pm [facility] 09April 09, 2008 Syed marquis [facility] 2008 12:00am [facility] March 15March 15, 2008 [facility] 2008 12:00am [facility] March 12, March 12, 2008 [facility] Department 2008 12:00am [facility] February 26February 27, 2008 [facility] 2007 12:00am [facility] October 01, 2005 October 01, 2005 [facility] Con[facility] 12:00am Ana [facility] October 12October 12, 2001 [facility] 2001 12:00am [facility] November 28November 28, 1998 Kuldeep vázquez [facility] Conversion 1998 12:00am Heather [facility] May 18May 18, 1998 [facility] Care 1998 12:00am [facility] CONV Misc Comp March 08March 08, 1899 Med ent, Physician/Pr Addiction Mgmt Pain location 1899 12:00am Con version ovider Office Visit Functional Status Query Response Date Recorded Comment Comprehension Ability Understands Concepts February 08, 2019 11:1 2pm Query Response Date Recorded Comment Living Situation Home February 08, 2019 10:55pm Immunizations Immunization Name Date Given Type Tdap September 08, 2018 Administered Payers Payer Name Policy Type Covered Covered Relationship Subscriber Sub scriber Id Alliance Party Alliance Party Id FEP SPENSER MCKENNA [id number] Granddorie EUBANKS [id number] CROSS (DO EUBANKS NOT USE) MEDICAID OF Medicaid [place] [id number] Self/[place] [id number] [place] EUBANKS Patient EUBANKS SELF PAY Personal [place] [id number] Self/Same as [place] [id number] (DO NOT EUBANKS Patient EUBANKS USE) Plan of Care No Known Plan of Care Information Social History Query Response Date Recorded Comment Alcohol Use Yes February 08, 2019 11:04pm sociall y Smoking Status Current every day smoker February 08, 2019 11:04p m substance use type marijuana February 08, 2019 11:04pm Query Response Start Date Stop Date Smoking Status Current every day smoker Vital Signs Vital Reading Result Reference Range Collection Date/ Time Height 5 ft 5 in February 07, 2019 9:05pm Weight 116.573 kg February 08, 2019 10:51pm Temperature 97.5 F 97.6 F-99.6 F February 09, 2019 9:48am Pulse 73 BPM 60-100 February 09, 2019 9:48am Respiration 18 RPM 12-24 February 08, 2019 10:51pm Pulse Oximetry 99 % 95-100 February 09, 2019 9:48am Blood Pressure Systolic 114 100-140 February 09, 2019 9:48am Blood Pressure Diastolic 71 50-85 [facility] 2018 9:48am Body Mass Index 44.6 February 20 7 3:38pm
--- OUTSIDE RECORDS SUMMARY | 2021-08-16 23:27 | XMS_ITS | Continuity of Care Document ---
:1990 Author Organization [facility] Address [address] [place] [address] Care Team Providers Name Role Phone Sana [...] Units Route Start Date Discontinued Date Status [place] Carbonate ORAL February 07, 2019 February 07, [...] have a copy on file here [place] [facility] No J trevor 2018 2:16pm Does patient have an Advanced Directive? No March 06, 2010 10:42am Pt has a Living Will? No March 06, 2010 10:42am Pt has a Power of Chief Investment Officer? No March 06, 2010 10:42am Chief Complaint [...] 2019 Olanzapine MG February 07 Active 2019 [place] ORAL February 07, Discontinue d Carbonate 2019 [...] Discharge/Departure Atte nding Date Date Provider Departed [facility] Emergency February 08February 09, 2019 [facility] Department 2018 10:48pm 10:17am Departed [facility] Emergency February 08February 08, 2019 [facility] Department 2018 6:44am 1:14pm Departed [facility] Emergency February 07February 07, 2019 [facility] Department 2018 9:03pm 10:10pm Departed [facility] Emergency January 13January 13, 2019 [facility] Department 2018 5:35pm 6:18pm Departed [facility] Emergency September 08, 2018 September 08, 2018 2:15pm [facility] Department 1:00pm Departed [facility] February 20February 20, [facility] 8:36pm 8:37pm Tony Departed [facility] February 20February 20, 2017 Kuldeep chin [facility]ician[facility] 2016 12:00am Con version ovider Office Visit Departed [facility] November 25November 25, 2016 Jaclyn [facility] 2016 12:00am Rhonda alfred ovider Office Visit Departed [facility] April 14, April 14, 2013 Med ent, Physician[facility] in 2013 12:00am Convers ion ovider Surgery Office Visit Registered [facility] 2010 1:34pm [facility] Registered [facility] March 06, [facility] 2009 10:41am [facility] July 09, 2009 July 09, 2009 11:59pm [facility] 5:34[facility] Ana [facility] June 25June 25, 2009 [facility] 8:23pm Ana [facility] April 09April 09, 2008 Syed marquis [facility] 2008 12:00am [facility] March 15March 15, 2008 [facility] 2008 12:00am [facility] March 12, March 12, 2008 [facility] Department 2008 12:00am [facility] February 26February 27, 2008 [facility] 2007 12:00am [facility] October 01, 2005 October 01, 2005 [facility] Con[facility] 12:00am Ana [facility] October 12October 12, 2001 [facility] 2001 12:00am [facility]n [facility] November 28November 28, 1998 Kuldeep vázquez [facility] Conversion 1998 12:00am Heather [facility] Inter[facility] May 18May 18, 1998 [facility] Care 1998 12:00am [facility] CONV Misc Comp March 08March 08, [...] Covered Covered Relationship Subscriber Sub scriber Id Republican Republican Id FEP SPENSER MCKENNA [id number] Granddorie EUBANKS [id number] CROSS (DO EUBANKS NOT USE) MEDICAID OF Medicaid [place] [id number] Self/Same as [place] [id number] [place] EUBANKS Patient EUBANKS SELF PAY Personal [place] [id number] Self/Same [place] [id number] (DO NOT EUBANKS Patient EUBANKS USE) [...] 2019 9:48am Blood Pressure Diastolic 71 50-85 [facility] 2018 9:48am Body Mass Index 44.6 February 20 7 3:38pm
--- OUTSIDE RECORDS SUMMARY | 2021-08-16 23:27 | XMS_ITS | Continuity of Care Document ---
:1990 Author Organization [facility] Address [address] [place] [address] Care Team Providers Name Role Phone Sana Lo Primary Care Physician Allergies, Adverse Reactions, Alerts Allergen Type Severity Reaction Last Updated Verified Status haloperidol Adverse Reaction Unknown February 08, 2019 Y Active paroxetine Adverse Reaction Unknown February 08, 2019 Y Active Medications Active Medications Medication Dose Units Route Sig Qty Start Date Status In structions Sertraline UNK Unknown February 082018 Lorazepam UNK ORAL February 08, Active 2019 Marijuana February 08 2019 Risperidone 2 MG ORAL DAILY March 01, Active 2019 Olanzapine 10 MG ORAL DAILY March 01, Active DOSING REGIMENT: [Zyprexa] 2019 take 2 0 mg in AM daily an d 10 mg in PM daily Discontinued Medications Medication Dose Units Route Sig Qty Start Discontinued Status Instructions Date Date Ziprasidone UNK Unknown FebruaryMarch 01, Dis continue Hcl 2018 d Geodon FebruaryMarch 01, Discontin ue 2018 d Olanzapine MG FebruaryMarch 01, Disco ntinue [address] [place] ORAL FebruaryFebruary 07, Discontin ue Carbonate 2018 d Trazodone FebruaryFebruary 07, Discont inue 2018 d Benztropine FebruaryFebruary 07, Disco ntinue 2018 d Lorazepam FebruaryFebruary 07, Discont inue 2018 d Fluoxetine MG FebruaryFebruary 07, Discon tinue 2018 d Hydroxyzine FebruaryFebruary 07, Disco ntinue Pamoate 2018 d Melatonin MG FebruaryFebruary 07, Discont inue 2018 d Melatonin MG FebruaryFebruary 07, Discont inue 2018 d Cariprazine MG FebruaryFebruary 07, Disco ntinue [Vraylar] 2018 d Problem List Active Problems Medical Problem Onset Date Status Acute bronchitis November 25, 2016 Inactive/Resolved Problems Medical Problem Onset Date Status Acute psychosis Inactive UTI (urinary tract infection) Inactive Adjustment disorder with anxiety Inactiv e Laceration of index finger of left hand without complication Inactive Acute exacerbation of psychosis Inactive Chronic cough Inactive 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 Ref. Range Result Comment White Blood Count 9.92 1000/mm3 4.8-10.8 Red Blood Count 4.91 M/mm3 4.20-5.40 Hemoglobin 14.4 g/dL 12.0-16.0 Hematocrit 42.4 % 37-47 Mean Corpuscular Volume 86.4 fL 81.0-99.0 Mean Corpuscular 29.3 pg 27-31 Hemoglobin Mean Corpuscular 34.0 g/dL 33-37 Hemoglobin Concent Red Cell Distribution 11.9 % 11.5-14.5 Width Platelet Count 342 1000/mm3 140-440 Mean Platelet Volume 9.0 fL 7.4-10.4 Neutrophils (%) (Auto) 59.7 % 40.0-72.0 Lymphocytes (%) (Auto) 32.4 % 17-45 Monocytes (%) (Auto) 6.6 % 3-11 Eosinophils (%) (Auto) 0.5 % 0-3 Basophils (%) (Auto) 0.4 % 0-1 Immature Granulocyte % 0.4 % 0-1 (Auto) Neutrophils # (Auto) 5.93 1000/mm3 1.4-6.5 Lymphocytes # (Auto) 3.21 1000/mm3 1.2-3.4 Monocytes # (Auto) 0.65 1000/mm3 0.0-0.8 Eosinophils # (Auto) 0.05 1000/mm3 0.0-0.7 Basophils # (Auto) 0.04 1000/mm3 0.0-0.1 Absolute Immature 0.0 0-1 Granulocyte (auto Differential Method Automated Urine RBC None seen /hpf Urine WBC 20-40 /hpf High Urine Squamous Epithelial 2+ /hpf Cells Urine Bacteria 4+ /hpf High Urine Mucus Present Urine Culture Done Yes URINE SPECIMEN CULTURED Urine Test Negative Sodium Level 138 mmol/L 137-145 Potassium Level 3.8 mmol/L 3.6-5.0 Chloride Level 104 mmol/L 98-107 Carbon Dioxide Level 23 mmol/L 22-30 Anion Gap 11 7-16 Blood Urea Nitrogen 9 mg/dL 7-17 Creatinine 0.48 mg/dL Low 0.52-1.04 Glomerular Filtration > 60 mL/min 60.0- Rate Calc Glucose Level 97 mg/dL 70-100 Calcium Level 9.6 mg/dL 8.4-10.2 Calcium Adjusted for 9.5 mg/dL 8.4-10.2 Albumin Total Bilirubin 0.4 mg/dL 0.2-1.3 Aspartate Amino Transf 20 U/L 14-36 (AST/SGOT) Alanine Aminotransferase 20 U/L 9-52 (ALT/SGPT) Total Protein 7.3 g/dL 6.3-8.2 Albumin 4.4 g/dL 3.5-5.0 Alkaline Phosphatase 60 U/L 38-126 Urine Methadone Screen Negative ng/mL Microbiology Results Procedure Source Result Collection Date/Time Result Date/Time Chief Complaint and Reason for Visit Encounter Admit Date Chief Complaint Reason for Visit Departed Emergency March 10, 2019 3:33am ALT MENTAL STATUS Hospital Discharge Instructions No known hospital discharge instructions. Hospital Discharge Medications Medication Dose Units Route Sig Qty Days Order Date Status In structions Ziprasidone UNK Unknown February Discontin ued Hcl 2018 Sertraline UNK Unknown February Active 2018 Lorazepam UNK ORAL February Geodon February Discontinued 2018 Marijuana February Active 2018 Olanzapine MG Peter Discontinue d 2018 [facility] ORAL February Discontinued Carbonate 2018 Trazodone February Discontinued 2018 Benztropine February Discontinu ed 2018 Lorazepam February Discontinued 2018 Fluoxetine MG February Discontinue d 2018 Hydroxyzine February Discontinu ed Pamoate 2018 Melatonin MG February Discontinued 2018 Melatonin MG February Discontinued 2018 Cariprazine MG February Discontinu ed 2018 Risperidone 2 MG ORAL DAILY 14 February Active 2018 Olanzapine 10 MG ORAL DAILY 06 March Active DOSI NG 2018 REGIMENT : take 20 mg in A M daily and 10 mg in PM d aily Encounters Encounter Facility Location Admit/Visit Discharge/Departure Atte nding Date Date Provider Departed [facility] Emergency March 10March 10, 2019 [facility] 2019 3:33am 4:37am Departed [facility] Emergency March 01March 01, 2019 [facility] 2018 5:15am 6:24pm Departed [facility] Emergency February 08February 09, 2019 [facility] 2018 10:48pm 10:17am Departed [facility] Emergency February 08February 08, 2019 [facility] 2018 6:44am 1:14pm Departed [facility] Emergency February 07February 07, 2019 [facility] 2018 9:03pm 10:10pm Departed [facility] Emergency January 13January 13, 2019 [facility] 2018 5:35pm 6:18pm Departed [facility] Emergency September 08, 2018 September 08, 2018 2:15pm [facility] 1:00pm Functional Status Query Response Date Recorded Comment Comprehension Ability Understands Concepts February 08, 2019 11:1 2pm Query Response Date Recorded Comment Living Situation Home March 10, 2019 4:37am Immunizations Immunization Name Date Given Type Tdap September 08, 2018 Administered Payers Payer Name Policy Type Covered Covered Relationship Subscriber Sub scriber Id Democrat Democrat Id FEP BLUE Commercial BALA [id number] Grandchild BALA EUBANKS [id number] CROSS (DO EUBANKS NOT USE) MEDICAID OF Medicaid [place] [id number] Self/Same [place] [id number] [place] EUBANKS Patient EUBANKS SELF PAY Personal [place] Medicaid [place] [id number] Self/Same as [place] [id number] (DO NOT EUBANKS Patient EUBANKS USE) Plan of Care No Known Plan of Care Information Social History Query Response Date Recorded Comment Alcohol Use Yes March 10, 2019 3:57am socially Smoking Status Current every day smoker March 10, 2019 3:57am substance use type marijuana March 10, 2019 3:57am Query Response Start Date Stop Date Smoking Status Current every day smoker Vital Signs Vital Reading Result Reference Range Collection Date/ Time Height 5 ft 5 in February 07, 2019 9:05pm Weight 108.862 kg March 10, 2019 3:35am Temperature 98.9 F 97.6 F-99.6 F March 01 9 5:20am Pulse 114 BPM 60-100 March 10, 2019 3:35am Respiration 16 RPM 12-24 March 10, 2019 3:35am Pulse Oximetry 95 % 95-100 March 10, 2019 3:35am Blood Pressure Systolic 149 100-140 March 10, 2019 3:35am Blood Pressure Diastolic 104 50-85 March 10, 2019 3:35am Body Mass Index n/a
--- OUTSIDE RECORDS SUMMARY | 2021-08-16 23:27 | XMS_ITS | Continuity of Care Document ---
:1990 Author Organization [facility] Address [address] [place] [address] Care Team Providers Name Role Phone Sana [...] MG FebruaryMarch 01, Disco ntinue 2018 d [place] ORAL FebruaryFebruary 07, Discontin ue Carbonate 2018 [...] Problems Medical Problem Onset Date Status Acute exacerbation of psychosis Active Acute bronchitis November 25, 2016 Inactive/Resolved Problems Medical Problem Onset Date Status Acute psychosis Inactive UTI (urinary tract infection) Inactive Adjustment disorder with anxiety Inactiv e Laceration of index finger of left hand without complication Inactive Chronic cough Inactive 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 No J 2018 2:16pm Does patient have an Advanced Directive? No March 06, 2010 10:42am Pt has a Living Will? No March 06, 2010 10:42am Pt has a Power of Piping Designer? No March 06, 2010 10:42am Chief Complaint [...] February Active 2018 Lorazepam UNK ORAL February Active 2018 Geodon February Discontinued 2018 Marijuana February Active 2018 Olanzapine MG February Discontinue d 2018 [place] ORAL February Discontinued Carbonate 2018 Trazodone February Discontinued 2018 Benztropine February Discontinu ed 2018 Lorazepam February Discontinued 2018 Fluoxetine MG Peter Discontinue d 2018 Hydroxyzine February Discontinu ed Pamoate 2018 Melatonin MG Peter Discontinued 2018 Melatonin MG Peter Discontinued 2018 Cariprazine MG February Discontinu ed 2018 Risperidone 2 MG ORAL DAILY 14 February Active 2018 Olanzapine 10 MG ORAL DAILY 06 March Active DOSI NG 2018 REGIMENT : take 20 mg in A M daily and 10 mg in PM d aily Encounters Encounter Facility Location Admit/Visit Discharge/Departure Atte nding Date Date Provider Departed [facility] Emergency March 10March 10, 2019 [facility] Department 2019 3:33am 4:37am Departed [facility] Emergency March 01March 01, 2019 [facility] Department 2018 5:15am 6:24pm Departed [facility] Emergency February 08February 09, [...] 2:15pm [facility] Department 1:00pm Departed [facility] 20February 20, [facility] 8:36[facility] 8:37pm Tony Departed [facility] February 20February 20, 2017 Kuldeep chin [facility] 2016 12:00am Con version ovider Office Visit Departed [facility] November 25November 25, 2016 Jaclyn [facility] 2016 12:00am Rhonda alfred ovider Office Visit Departed [facility] April 14April 14, 2013 Med ent, [facility] in 2013 12:00am Convers ion ovider Surgery Office Visit Reg[facility] 10:[facility]am Alexander Departed [facility] Laboratory July 09, 2009 July 09, 2009 11:59pm [facility]June [facility] 8:[facility] Ana Laura Dep[facility]ed [facility] April 09April 09, 2008 Syed marquis [facility] 2008 12:00am [facility] Departed [facility] March 15March 15, 2008 [facility] 2008 12:[facility] March 12March 12, 2008 [facility] Department 2008 12:00am Departed [facility] DI February 26February 27, 2008 [facility] October 01, 2005 October 01, 2005 [facility] Con[facility] 12:00am Ana Laura Departed [facility] October 12October 12, 2001 [facility] 2001 12:00am [facility] 28November 28, 1998 [facility] 1998 12:00am Heather Departed [facility] Intermediate May 18May 18, 1998 [facility] Care 1998 12:00am Departed [facility] CONV Misc Comp March 08March 08, [...] Constitution Party Id FEP BLUE Commercial BALA [id number] Grandchild BALA EUBANKS [id number] CROSS (DO EUBANKS NOT USE) MEDICAID OF Medicaid [place] [id number] Self/Same [place] [id number] [place] EUBANKS Patient EUBANKS SELF PAY Personal [place] [id number] Self/Same as [place] [id number] (DO NOT EUBANKS Patient EUBANKS USE) [...] March 10, 2019 3:35am Body Mass Index 44.6 February 20 7 3:38pm
--- OUTSIDE RECORDS SUMMARY | 2021-08-16 23:27 | XMS_ITS | Continuity of Care Document ---
:1990 Author Organization [facility] Address [address] [place] [address] Care Team Providers Name Role Phone Sana Lo Primary Care Physician Allergies, Adverse Reactions, Alerts Allergen Type Severity Reaction Last Updated Verified Status gluten Adverse Reaction Unknown November 25, 2016 Y Active haloperidol Adverse Reaction Unknown November 25, 2016 Y Active paroxetine Adverse Reaction Unknown November 25, 2016 Y Active Medications No medication information available. Problem List Active Problems Medical Problem Onset [...] Group A Streptococcus Screen (BRETT) compl eted Relevant Diagnostic Tests and/or Laboratory Data Microbiology Results Procedure Source Result Collection Date/Time Result Date/Time Advance Directives Advance Directive Response Recorded Date/Time Do we have a copy on file here at [facility]? No J 2018 2:16pm Does patient have an Advanced Directive? No March 06, 2010 10:42am Pt has a Living Will? No March 06, 2010 10:42am Pt has a Power of Vp Platforms? No March 06, 2010 10:42am Chief Complaint and Reason for Visit Encounter Admit Date Chief Complaint Reason for Visit Departed Emergency January 13, 2019 5:35pm [facility] Discharge Instructions No known hospital discharge instructions. Encounters Encounter Facility Location Admit/Visit Discharge/Departure Atte nding Date Date Provider Departed [facility] Emergency January 13January 13, 2019 [facility] Department 2018 5:35pm 6:18pm Departed [facility] Emergency September 08, 2018 September 08, 2018 2:15pm [facility] Department 1:00pm Departed [facility] February 20, February 20[facility] 8[facility] 8:37pm Tony Departed [facility] February 20, February 20, 2017 Kuldeep chin [facility] 2016 12:00am Con version ovider Office Visit Departed [facility] November 25November 25, 2016 Jaclyn [facility] 2016 12:00am Rhonda simon ovider Office Visit Departed [facility] April 14, April 14, 2013 Med ent, [facility] in 2013 12:00am Convers ion ovider Surgery Office Visit Registered [facility] 12, [facility] 1:[facility] Registered [facility] Walk [facility] March 06, [facility] 2009 10:41am [facility] Laboratory July 09, 2009 July 09, 2009 11:59pm [facility] 5[facility] Ana Laura [facility] Referred Lab June 25June 25, 2009 [facility] 8:23pm [facility]April 09, [address] [facility] 2008 12:00am [facility] March 15March 15, 2008 [facility] 2008 12:00am [facility] Emergency March 12, March 12, 2008 Emergency [facility] Department 2008 12:00am [facility] February 26February 27, 2008 [facility] 2007 12:00am [facility] Outpatient October 01, 2005 October 01, 2005 [facility] 12:00am Ana Laura [facility] October 12October 12, 2001 [facility] 2001 12:00am [facility] November 28November 28, 1998 Kuldeep vázquez [facility] Conversion 1998 12:00am [facility] May 18May 18, 1998 [facility] Care 1998 [facility] Misc Comp March 08March 08, 1899 Med ent, Physician/Pr Addiction Mgmt Pain location 1899 12:00am Con version ovider Office Visit Functional Status Query Response Date Recorded Comment Living Situation Home September 08, 2018 2:14pm Immunizations Immunization Name Date Given Type Tdap September 08, 2018 Administered Payers Payer Name Policy Type Covered Covered Relationship Subscriber Sub scriber Id Libertarian Libertarian Id FEP BLUE Commercial BALA [id number] Grandchild BALA EUBANKS [id number] CROSS (DO EUBANKS NOT USE) MEDICAID OF Medicaid [place] [id number] Self/Same [place] [id number] [place] EUBANKS Patient EUBANKS SELF PAY Personal [place] [id number] Self/Same as [place] [id number] (DO NOT EUBANKS Patient EUBANKS USE) Plan of Care No Known Plan of Care Information Social History Query Response Date Recorded Comment Alcohol Use Yes September 08, 2018 1:47pm socially Smoking Status Current every day smoker September 08, 2018 1:47pm substance use type marijuana September 08, 2018 1:18pm Query Response Start Date Stop Date Smoking Status Current every day smoker Vital Signs Vital Reading Result Reference Range Collection Date/ Time Height 5 ft 4 in February 20 7 3:38pm Weight 118.614 kg September 08, 2018 1:1 1pm Temperature 99.2 F 97.6 F-99.6 F September 08, 2018 1:1 1pm Pulse 103 BPM 60-100 September 08, 2018 2:1 2pm Respiration 16 RPM 12-24 September 08, 2018 2:1 2pm Pulse Oximetry 99 % 95-100 September 08, 2018 1:1 1pm Blood Pressure Systolic 124 100-140 September 08, 2018 2:12pm Blood Pressure Diastolic 87 50-85 September 08, 2018 2:12pm Body Mass Index 44.6 February 20 7 3:38pm
--- OUTSIDE RECORDS SUMMARY | 2021-08-16 23:27 | XMS_ITS | Continuity of Care Document ---
:1990 Author Organization [facility] Address [address] [place] [address] Care Team Providers Name Role Phone PCP, Not Given Primary Care Physician Unavailable Tony Molina SR, V. Attending Physician Unavailable Allergies, Adverse Reactions, Alerts No allergy information available. Medications No medication information available. Problem List No problem information available. Procedures Procedure Date Status Group A Streptococcus Screen (BRETT) February 20, 2017 activ e Relevant Diagnostic Tests and/or Laboratory Data No known relevant diagnostic tests, laboratory data, and/or discharge summary. Advance Directives Advance Directive Response Recorded Date/Time Does patient have an Advanced Directive? No March 06, 2010 10:42am Pt has a Living Will? No March 06, 2010 10:42am Pt has a Power of Duct Layer Helper? No March 06, 2010 10:42am Hospital Discharge Instructions No known hospital discharge instructions. Encounters Encounter Facility Location Admit/Visit Discharge/Departure Atte nding Date Date Provider Departed [facility] Urgent February 20, February 20, 2017 Jayda foy [facility] Care 2017 8:36pm 8:37pm Tony Grossman Functional Status No known functional status. Immunizations No known immunizations. Payers Payer Name Policy Type Covered Covered Relationship Subscriber Sub scriber Id Constitution Party Constitution Party Id FEP BLUE Commercial BALA [id number] Grandchild BALA EUBANKS [id number] CROSS (DO EUBANKS NOT USE) MEDICAID OF Medicaid [place] [id number] Self/Same [place] [id number] [place] [facility] Patient EUBANKS SELF PAY Personal [place] [id number] Self/Same as [place] [id number] (DO NOT EUBANKS Patient EUBANKS USE) Plan of Care No Known Plan of Care Information Social History No known social history. Vital Signs No known vital signs results.
--- OUTSIDE RECORDS SUMMARY | 2021-08-16 23:27 | XMS_ITS | Continuity of Care Document ---
:1990 Author Organization [facility] Address [address] [place] [address] Care Team Providers Name Role Phone Sana [...] MG FebruaryMarch 01, Disco ntinue 2018 d [place] ORAL FebruaryFebruary 07, Discontin ue Carbonate 2018 [...] Inactive Procedures Procedure Date Status Urine Culture February 08, 2019 completed Urine Culture February 07, 2019 completed Relevant Diagnostic Tests and/or Laboratory Data Laboratory Results Test Date/Time Result Interp. Ref. Range Result Comment White Blood Count March 01, 9.92 1000/mm3 4.8-10.8 2018 6:08am Red Blood Count March 01, 4.91 M/mm3 4.20-5.40 2018 6:08am Hemoglobin March 01, 14.4 g/dL 12.0-16.0 2018 6:08am Hematocrit March 01, 42.4 % 37-47 2018 6:08am Mean Corpuscular March 01, 86.4 fL 81.0-99.0 Volume 2019 6:08am Mean Corpuscular March 01, 29.3 pg 27-31 Hemoglobin 2019 6:08am Mean Corpuscular March 01, 34.0 g/dL 33-37 Hemoglobin Concent 2019 6:08am Red Cell Distribution March 01, 11.9 % 11.5-14.5 Width 2018 6:08am Platelet Count March 01, 342 1000/mm3 [phone] 6:08am Mean Platelet Volume March 01, 9.0 fL 7.4-10.4 2018 6:08am Neutrophils (%) (Auto) March 01, 59.7 % 40.0-72.0 2018 6:08am Lymphocytes (%) (Auto) March 01, 32.4 % 17-45 2018 6:08am Monocytes (%) (Auto) March 01, 6.6 % 3-11 2018 6:08am Eosinophils (%) (Auto) March 01, 0.5 % 0-3 2018 6:08am Basophils (%) (Auto) March 01, 0.4 % 0-1 2018 6:08am Immature Granulocyte % March 01, 0.4 % 0-1 (Auto) 2018 6:08am Neutrophils # (Auto) March 01, 5.93 1000/mm3 1.4-6.5 2019 6:08am Lymphocytes # (Auto) March 01, 3.21 1000/mm3 1.2-3.4 2019 6:08am Monocytes # (Auto) March 01, 0.65 1000/mm3 0.0-0.8 2019 6:08am Eosinophils # (Auto) March 01, 0.05 1000/mm3 0.0-0.7 2019 6:08am Basophils # (Auto) March 01, 0.04 1000/mm3 0.0-0.1 2019 6:08am Absolute Immature March 01, 0.0 0-1 Granulocyte (auto 2019 6:08am Differential Method March 01, Automated 2019 6:08am Urine RBC February 08, 3-5 /hpf High 2019 8:06am Urine WBC February 08, 10-20 /hpf High 2019 8:06am Urine Squamous February 08, 2+ /hpf Epithelial Cells 2019 8:06am Urine Bacteria February 08, 3+ /hpf High 2019 8:06am Urine Mucus February 08, Present 2019 8:06am Urine Culture Done February 08, Yes URINE SPECIMEN 2019 8:06am CULTURED Urine Test February 07, Negative 2019 9:45pm Sodium Level March 01, 138 mmol/L [phone] 6:08am Potassium Level March 01, 3.8 mmol/L 3.6-5.0 2018 6:08am Chloride Level March 01, 104 mmol/L 98-107 2018 6:08am Carbon Dioxide Level March 01, 23 mmol/L -2018 6:08am Anion Gap March 01 7-16 2018 6:08am Blood Urea Nitrogen March 01, 9 mg/dL 7-17 2018 6:08am Creatinine March 01, 0.48 mg/dL Low 0.52-1.04 2019 6:08am Glomerular Filtration March 01, > 60 mL/min 60.0- Rate Calc 2019 6:08am Glucose Level March 01, 97 mg/dL 70-100 2019 6:08am Calcium Level March 01, 9.6 mg/dL 8.4-10.2 2019 6:08am Calcium Adjusted for March 01, 9.5 mg/dL 8.4-10.2 Albumin 2018 6:08am Total Bilirubin March 01, 0.4 mg/dL 0.2-1.3 2018 6:08am Aspartate Amino Transf March 01, 20 U/L 14-36 (AST/SGOT) 2019 6:08am Alanine March 01, 20 U/L 9-52 Aminotransferase 2018 6:08am (ALT/SGPT) Total Protein March 01, 7.3 g/dL 6.3-8.2 2018 6:08am Albumin March 01, 4.4 g/dL 3.5-5.0 2018 6:08am Alkaline Phosphatase March 01, 60 U/L 38-126 2018 6:08am Urine Methadone Screen March 01, Negative ng/mL 2018 6:00am Microbiology Results Procedure Source Result Collection Date/Time Result Date/Time Urine Culture Ur,Clean Catch Escherichia Coli February 07, 2019 [facility] 2018 10:19pm 7:29am Urine Culture Ur,Clean Catch Escherichia Coli February 08, 2019 [facility] 2018 9:10am 7:27am Chief Complaint and Reason for Visit Encounter Admit Date Chief Complaint Reason for Visit Departed Emergency March 10, 2019 3:33am ALT MENTAL STATUS Hospital Discharge Instructions No known hospital discharge instructions. Hospital Discharge Medications Medication Dose Units Route Sig Qty Days Order Date Status In structions Ziprasidone UNK Unknown February Discontin ued Hcl 2018 Sertraline UNK Unknown Peter Active 2018 Lorazepam UNK ORAL Peter 2018 Geodon February Discontinued 2018 Marijuana February Active 2018 Olanzapine MG Peter Discontinue d 2018 [place] ORAL February Discontinued Carbonate 2018 Trazodone February Discontinued 2018 Benztropine Peter Discontinu ed 2018 Lorazepam February Discontinued 2018 Fluoxetine MG Peter Discontinue d 2018 Hydroxyzine February Discontinu ed Pamoate 2018 Melatonin MG February Discontinued 2018 Melatonin MG February Discontinued 2018 Cariprazine MG Peter Discontinu ed 2018 Risperidone 2 MG ORAL DAILY 10 February Active 2018 Olanzapine 10 MG ORAL DAILY 30 February Active DOSI NG 2018 REGIMENT : take 20 mg in A M daily and 10 mg in PM d aily Encounters Encounter Facility Location Admit/Visit Discharge/Departure Atte nding Date Date Provider Departed [facility] Emergency March 10March 10, 2019 [facility] 2019 3:33am 4:37am Departed [facility] Emergency March 01March 01, 2019 [facility] 2018 5:15am 6:24pm Departed [facility] Emergency February 08February 09, 2019 [facility] 2018 10:48pm 10:17am Departed [facility] Emergency February 08February 08, 2019 [facility] 2018 6:44am 1:14pm Departed [facility] Emergency February 07February 07, 2019 [facility] 2018 9:03pm 10:10pm Departed [facility] Emergency January 13January 13, 2019 [facility] 2018 5:35pm 6:18pm Functional Status Query Response Date Recorded Comment Comprehension Ability Understands Concepts February 08, 2019 11:1 2pm Query Response Date Recorded Comment Living Situation Home March 10, 2019 4:37am Immunizations Immunization Name Date Given Type Tdap September 08, 2018 Administered Payers Payer Name Policy Type Covered Covered Relationship Subscriber Sub scriber Id Republican Republican Id FEP BLUE Commercial BALA [id number] Grandchild BALA EUBANKS [id number] CROSS (DO EUBANKS NOT USE) MEDICAID OF Medicaid [place] [id number] Self/Same [place] [id number] [place] EUBANKS Patient EUBANKS SELF PAY Personal [place] [id number] Self/Same [place] [id number] (DO NOT EUBANKS Patient EUBANKS USE) [...]
--- OUTSIDE RECORDS SUMMARY | 2021-08-16 23:28 | XMS_ITS | Continuity of Care Document ---
:1990 Author Organization [facility] Address [address] [place] [address] Care Team Providers Name Role Phone Sana [...] MG FebruaryMarch 01, Disco ntinue 2018 d [place] ORAL FebruaryFebruary 07, Discontin ue Carbonate 2018 [...] 2018 Olanzapine MG Peter Discontinue d 2018 [place] ORAL February Discontinued Carbonate 2018 Trazodone February [...] Discharge/Departure Atte nding Date Date Provider Departed [facility] Emergency March 10March 10, 2019 [facility] 2019 3:33am 4:37am Departed [facility] March 01March 01, 2019 [facility] 2018 5:15am 6:24pm Departed [facility] Emergency February 08February 09, 2019 [facility] 2018 10:48pm 10:17am Departed [facility] February 08February 08, 2019 [facility] 2018 6:44am 1:14pm Departed [facility] Emergency February 07February 07, 2019 [facility] 2018 9:03pm 10:10pm Departed [facility] Emergency January 13January 13, 2019 [facility] 2018 5:35pm 6:18pm Departed [facility] Emergency September 08, 2018 September 08, [...] Libertarian Libertarian Id FEP BLUE Commercial BALA [id number] Grandchild BALA EUBANKS [id number] CROSS (DO EUBANKS NOT USE) MEDICAID [place] Medicaid [place] [id number] Self/Same [place] [id number] [place] EUBANKS Patient EUBANKS SELF PAY Personal [place] [id number] Self/Same as [place] [id number] (DO NOT EUBANKS Patient EUBANKS USE) [...]
--- OUTSIDE RECORDS SUMMARY | 2021-08-16 23:28 | XMS_ITS | Continuity of Care Document ---
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 No J 2018 2:16pm Does patient have an Advanced Directive? No March 06, 2010 10:42am Pt has a Living Will? No March 06, 2010 10:42am Pt has a Power of Support Specialist? No March 06, 2010 10:42am Chief Complaint and Reason for Visit Encounter Admit Date Chief Complaint Reason for Visit Departed Emergency March 01, 2019 5:15am [facility] Hospital Discharge Instructions Additional Discharge Instructions Take medications as prescribed. Follow-up with [facility] te am as arranged. Return to the ER if your symptoms a re worsening or if you like further evaluation for for possible inpatient treatment. Return immediatel y if have any thoughts of self-harm. No Instructions/Education Provided Hospital Discharge Medications Medication Dose Units Route Sig Qty Days Order Date Status In structions Ziprasidone UNK Unknown February Discontin ued Hcl 2018 Sertraline UNK Unknown February Lorazepam UNK ORAL February Geodon Peter Discontinued 2018 Marijuana February Olanzapine MG Peter Discontinue d 2018 [place] ORAL Peter Discontinued Carbonate 2018 Trazodone Peter Discontinued 2018 Benztropine Peter Discontinu ed 2018 Lorazepam Peter Discontinued 2018 Fluoxetine MG Peter Discontinue d [...] Discharge/Departure Atte nding Date Date Provider Departed [facility] Emergency March 01March 01, 2019 [facility] 2018 5:15am 6:24pm Departed [facility] Emergency February 08February 09, 2019 [facility] 2018 10:48pm 10:17am Departed [facility] Emergency February 08February 08, 2019 [facility] 2018 6:44am 1:14pm Departed [facility] Emergency February 07February 07, 2019 [facility] 2018 9:03pm 10:10pm Departed [facility] Emergency January 13January 13, 2019 [facility] 2018 5:35pm 6:18pm Departed [facility] Emergency September 08, 2018 September 08, 2018 2:15pm [facility] 1:00pm Departed [facility]February 20[facility] 8:37pm Tony Departed [facility] February 20February 20, 2017 Kuldeep chin, [facility]ician[facility] 2016 12:00am Con version ovider Office Visit Departed [facility] November 25November 25, 2016 Jaclyn [facility] 2016 12:00am Rhonda alfred ovider Office Visit Departed [facility] April 14April 14, 2013 Med ent, [facility] in 2013 12:00am Convers ion ovider Surgery Office Visit Registered [facility]AN [facility] 1:[facility] Registered [facility] 10[facility] July 09, 2009 July 09, 2009 11:59pm [facility] 5[facility] Ana Laura Departed [facility] Referred Lab June 25June 25, 2009 Thania hogan [facility] 2009 8:23pm Ana Laura Departed [facility] DI April 09April 09, 2008 Syed marquis [facility] 2008 12:00am [facility] Departed [facility] DI Synergy March 15March 15, 2008 [facility] 2008 12:00am [facility] March 12March 12, 2008 [facility] 2008 12[facility] February 26February 27, 2008 [facility] 12:00am [facility] October 01, 2005 October 01, 2005 [facility] 12[facility]00am [facility] 12October 12, 2001 [facility] 2001 12:00am [facility] November 28November 28, 1998 [facility] 1998 12:00am [facility] May 18May 18, 1998 [facility] Care 1998 12:00am Departed [facility] CONV Misc Comp March 08March 08, 1899 Med ent, Physician/Pr Addiction Mgmt Pain location 1899 12:00am Con version ovider Office Visit Functional Status Query Response Date Recorded Comment Comprehension Ability Understands Concepts February 08, 2019 11:1 2pm Query Response Date Recorded Comment Living Situation Home March 01, 2019 6:22pm Immunizations Immunization Name Date Given Type Tdap September 08, 2018 Administered Payers Payer Name Policy Type Covered Covered Relationship Subscriber Sub scriber Id Green Party Green Party Id FEP BLUE Commercial BALA [id number] Grandchild BALA EUBANKS [id number] CROSS (DO EUBANKS NOT USE) MEDICAID OF Medicaid [place] [id number] [place]/Same [place] [id number] [place] EUBANKS Patient EUBANKS SELF PAY Personal [place] Medicaid [place] [id number] Self/Same as [place] [id number] (DO NOT EUBANKS Patient EUBANKS USE) Plan of Care No Known Plan of Care Information Social History Query Response Date Recorded Comment Alcohol Use Yes March 01, 2019 5:54am sociall y Smoking Status Current every day smoker March 01, 2019 5:54a m substance use type marijuana March 01, 2019 5:54am Query Response Start Date Stop Date Smoking Status Current every day smoker Vital Signs Vital Reading Result Reference Range Collection Date/ Time Height 5 ft 5 in February 07, 2019 9:05pm Weight 113.398 kg March 01 5:20am Temperature 98.9 F 97.6 F-99.6 F March 01 5:20am Pulse 102 BPM 60-100 March 01 5:27pm Respiration 12 RPM -March 01 5:27pm Pulse Oximetry 98 % 95-100 March 01 5:27pm Blood Pressure Systolic 131 100-140 March 01, 2019 5:27pm Blood Pressure Diastolic 69 50-85 [facility] 2018 5:27pm Body Mass Index 44.6 February 20 7 3:38pm
--- OUTSIDE RECORDS SUMMARY | 2021-08-16 23:28 | XMS_ITS | Continuity of Care Document ---
:[address] [facility] Address [address] [place] [address] Care Team Providers Name Role Phone Sana [...] MG FebruaryMarch 01, Disco ntinue 2018 d [place] ORAL FebruaryFebruary 07, Discontin ue Carbonate 2018 [...] 2018 Olanzapine MG Peter Discontinue d 2018 [place] ORAL February Discontinued Carbonate 2018 Trazodone February [...] Provider Departed [facility] Emergency March 10March 10, 2019 [facility] Department 2019 3:33am 4:37am Departed [facility] Emergency March 01March 01, 2019 [facility] Department 2018 5:15am 6:24pm Departed [facility] Emergency February [...] Id Alliance Party Alliance Party Id FEP BLUE Commercial BALA [id number] Grandchild BALA EUBANKS [id number] [place]OSS (DO EUBANKS NOT USE) MEDICAID OF Medicaid [place] [id number] Self/Same [place] [id number] [place] EUBANKS Patient EUBANKS SELF PAY Personal [place] [id number] Self/Same as [place] [id number] (DO NOT EUBANKS Patient EUBANKS USE) [...]
--- OUTSIDE RECORDS SUMMARY | 2021-08-16 23:28 | XMS_ITS | Continuity of Care Document ---
:1990 Author Organization [facility] Address [address] [place] [address] Care Team Providers Name Role Phone Sana [...] Units Route Start Date Discontinued Date Status [place] Carbonate ORAL February 07, 2019 February 07, [...] [place] a [facility] [place] [facility] [place] [facility] No J trevor 2018 2:16pm Does patient have an Advanced Directive? No March 06, 2010 10:42am Pt has a Living Will? No March 06, 2010 10:42am Pt has a Power of Commercial Installer? No March 06, 2010 10:42am Chief Complaint and Reason for Visit Encounter Admit Date Chief Complaint Reason for Visit Departed Emergency February 08, 2019 10:48pm [facility] Hospital Discharge Instructions Additional Discharge Instructions Will follow up with appointments as arranged Instruction/Education Provided Acute Psychosis (DC) Hospital Discharge Medications Medication Dose Units Route Sig Qty Days Order Date Status In structions Ziprasidone Hcl UNK Unknown February 08, Ac tive 2019 Sertraline UNK Unknown February 08, 2018 Lorazepam UNK ORAL February 08, Active 2019 Geodon February 08, Active 2019 Marijuana February 08 Active 2019 Olanzapine MG February 07 Active 2019 [place] ORAL February 07, Discontinue d Carbonate 2019 Trazodone February 07, Discontin ued 2019 Benztropine February 07, Discont inued 2019 Lorazepam February 07, Discontin ued 2019 Fluoxetine MG February 07, Disconti nued 2019 Hydroxyzine February 07, Discont inued Pamoate 2019 Melatonin MG February 07, Discontin ued 2019 Melatonin MG February 07, Discontin ued 2019 Cariprazine MG February 07, Discont inued 2019 Encounters Encounter Facility Location Admit/Visit Discharge/Departure Atte nding Date Date Provider Departed [facility] Emergency February 08February 09, 2019 [facility] Department 2018 10:48pm 10:17am Departed [facility] Emergency February 08February 08, 2019 [facility] 2018 6:44am 1:14pm Departed [facility] Emergency February 07February 07, 2019 [facility] 2018 9:03pm 10:10pm Departed [facility] Emergency January 13January 13, 2019 [facility] 2018 5:35pm 6:18pm Departed [facility] Emergency September 08, 2018 September 08, 2018 2:15pm [facility] Department 1:00pm Departed [facility] February 20February 20, [facility] 8:[facility] 8:37pm Tony Departed [facility] February 20February 20, 2017 Kuldeep chin [facility] 2016 12:00am Con version ovider Office Visit Departed [facility] November 25November 25, 2016 Jaclyn [facility] 2016 12:00am Rhonda alfred ovider Office Visit Departed [facility] April 14, April 14, 2013 Med ent, [facility] in 2013 12:00am Convers ion ovider Surgery Office Visit Registered [facility] 1:[facility] Registered [facility] Walk [facility] March 06, [facility] 10:[facility]am [facility] July 09, 2009 July 09, 2009 11:59pm [facility] June 25June 25, [facility] 8[facility]April 09, 2008 [facility] 12[facility] March 15March 15, 2008 [facility] 2008 12:00am [facility] March 12, March 12, 2008 [facility] 2008 12[facility] February 26February 27, 2008 [facility] 2007 12:00am [facility] October 01, 2005 October 01, 2005 [facility] 12:00am Ana Laura [facility] Synergy October 12October 12, 2001 [facility] 2001 12:00am [facility] November 28November 28, 1998 Kuldeep vázquez [facility] Conversion 1998 12:00am [facility] May 18May 18, 1998 [facility] Care 1998 12:[facility] Misc Comp March 08March 08, [...] Democrat Democrat Id FEP BLUE Commercial BALA [id number] Grandchild BALA EUBANKS [id number] [place] (DO EUBANKS NOT USE) MEDICAID [place] Medicaid [place] [id number] Self/Same as [place] [id number] [place] EUBANKS Patient EUBANKS SELF PAY Personal [place] [id number] Self/Same as [place] [id number] (DO NOT EUBANKS Patient EUBANKS USE) Plan of Care Instructions Acute Psychosis (DC) Social History Query Response Date Recorded Comment [...] 2019 9:48am Blood Pressure Diastolic 71 50-85 [facility] 2018 9:48am Body Mass Index 44.6 February 20 7 3:38pm
--- OUTSIDE RECORDS SUMMARY | 2021-08-16 23:28 | XMS_ITS | Continuity of Care Document ---
:1990 Author Organization [facility] Address [address] [place] [address] Phone Care Team Providers Name Role Phone Ana Laura Castillo Primary Care Provider Heather Gentile Attending Provider Vaughn Roca Attending Provider Ana Laura Castillo Attending Provider Sheryl Acevedo Attending Provider Pietro Duarte Attending Provider Unavailable Ana Laura Castillo Admit Provider Alexander Prescott Attending Provider PCP, Not Given Primary Care Provider Unavailable Tony Molina SR, V. Attending Provider Unavailable Sana Lo Primary Care Provider Allergies, Adverse Reactions, Alerts Allergen Type Severity Reaction Last Updated Verified Status gluten Adverse Reaction Unknown November 25, Yes 2016 haloperidol Adverse Reaction Unknown November 25, Yes 2016 paroxetine Adverse Reaction Unknown November 25, Yes 2016 Medications No medication information available. Problems Active Problems Medical Problem Onset Date Status Acute bronchitis November 25, 2016 Active Inactive/Resolved Problems Medical Problem Onset Date Status Laceration of index finger of left hand without complication Resolved Chronic cough Resolved Tobacco use disorder Resolved Procedures Procedure Date Performed Status Group A Streptococcus Screen (BRETT) compl eted US Extremity NonVas RT Limited March 12, 2010 completed Shoulder 2 vw Min RT March 06, 2010 completed Relevant Diagnostic Tests and/or Laboratory Data Microbiology Results Procedure Source Result Collection Result Result Performin g Date/Time Date/Time Comment Site Group A Throat February MAIN LAB, [address] [facility] Streptococcus 2016 . [place] [address] Screen (BRETT) 6:42am Diagnostic Imaging Reports Report Dictated Date/Time Dictated By Status Radiology Report March 06, 2010 11:22am Carlos Castellanos MD completed [facility] RADIOLOGY REPORT PATIENT NAME: YASMANY EUBANKS [id number] DATE OF : 1990 ATTENDING/ER PHYSICIAN: APRIL Benson ER/ATTENDING PHYSICIAN: PRIMARY CARE PHYS: Kuldeep Chua ADMITTING PHYSICIAN: CONSULTING PHYSICIAN: PROCEDURE DATE: 03/06/10 REPORT STATUS: Signed DICTATING PHYSICIAN: Carlos Castellanos MD REASON FOR EXAM: RIGHT SHOULDER PAIN RIGHT SHOULDER, 4 VIEWS TECHNIQUE: AP in internal and external rotation, Grashey and Y views. COMPARISON: 03/15/08 AP, axillary, Grashe y and Y views, done [place] [facility] [place] [facility]. 04/09/08 MRI of right shoulder. FINDINGS: Interval removal of os acromi yolanda; otherwise unchanged. No opaque foreign body, soft tissue calcification, fracture, dislocation, or other osseous or joint abnormality seen in the right s houlder. IMPRESSION: Os acromiale has been remov ed. Otherwise negative exam. dd: 03/06/10 1122 <Electronically signed by Carlos Castellanos MD in OV> 03/06/10 1130 Radiology Report March 13, 2010 8:52am Rosemary Tatum MD c ompleted [facility] ULTRASOUND REPORT PATIENT NAME: YASMANY EUBANKS [id number] DATE OF : 1990 ATTENDING/ER PHYSICIAN: APRIL Benson ER/ATTENDING PHYSICIAN: PRIMARY CARE PHYS: Kuldeep Chua ADMITTING PHYSICIAN: CONSULTING PHYSICIAN: PROCEDURE DATE: 03/12/10 REPORT STATUS: Signed DICTATING PHYSICIAN: Rosemary Tatum MD REASON FOR EXAM: JT PAIN IN RT SHD US EXTREMITY NONVASCULAR RIGHT SHOULDER FINDINGS: At the area of axillary soreness, there are normal lymph nodes, measuring from 1.1 to 1.5 cm in short axis dimensions. All lymph nodes demonstrate normal morp hology. No fluid collections are identified to suggest an abscess. The musculature is normal in appearance . The axillary arteries and veins are pat ent. No joint effusion is identified. The patient is status post os acromiale removal in 2008. The acromioclavicular space is within n ormal limits. IMPRESSION: Normal ultrasound study of the right sh oulder. dd: 03/13/10 0852 <Electronically signed by Rosemary mora MD in OV> 03/13/10 0856 Advance Directives Advance Directive Response Recorded Date/Time Does patient have an Advanced Directive? No March 06, 2010 10:42am Do we have a copy on file here at [facility]? No Bernabe murray 2018 2:16pm Pt has a Living Will? No March 06 0 10:42am Do we have a copy on file here at [facility]? No Bernabe murray 2018 2:16pm Pt has a Power of Environmental Management Specialist? No February 10:42am Do we have a copy on file here at [facility]? No Bernabe murray 2018 2:16pm Chief Complaint and Reason for Visit Chief Complaint LAB/ JOINT PAINS Pain CHEST XR INJURY XR Lab XR JT PAIN IN RT SHD finger injury EVIDENTIARY LUCILLE Encounters Encounter Location(s) Arrival/Admit Date Discharge/Depart Provi mandie(s) Date Departed [facility] rsion Physician/Provi Medical 12:00am Medent mandie Office Center-CONV Misc Visit Comp Pain location Departed [facility] May 18, 1998 May 18, 1998 null Emergency Medical 12:00[facility] November 28, November 28, 1998 Julia Gentile Clinical Medical 1998 12:00am 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 Center-Outpatient Conversion Departed [facility] October 12, 2001 October 12, 2001 Vaughn Roca [facility] 12:00am , MD Jarquin Departed [facility] October 01, 2005 October 01, 2005 Ana Laura Virgen Clinical Medical 12:00am MD Jonathan Center-Outpatient Conversion Departed [facility] February 26, February 27, 2008 Sheryl Acevedo [facility] 2007 12:00am [facility] Departed [facility] March 12, 2008 March 12, 2008 null Emergency Medical 12:00am Center-Emergency Department Departed [facility] March 15, 2008 March 15, 2008 Bradford perez [facility]DI 12:00am , DO [facility] Departed [facility] April 09, 2008 April 09, 2008 [place] [facility] 12:00am , DO [facility] Departed [facility] June 25, 2009 June 25, 2009 Ana Laura Virgen Referred Medical 8:23pm MD Jonathan Center-Referred Lab Departed [facility] July 09, 2009 July 09, 2009 Ana Laura Virgen Clinical Medical 5:34pm 11:59pm MD Jonathan Center-Laboratory Registered [facility] March 06, Kenyon Munoz [facility] 2009 10:41am APRIL [facility] [place] Registered [facility] March 12, 2010 Kenyon mclaughlin , [facility] 1:34pm APRIL [facility] Departed [facility] April 14, 2013 April 14, 2013 Con mike Physician/Provi Medical 12:00am Medent mandie Office [facility] Visit rn Assoc in Surgery Departed [facility] November 25, November 25, 2016 Sourav gaston PA-C Physician/Provi Medical 2016 12:00am Hansa mandie Office [facility] Visit rn [facility] [place] Departed [facility] February 20, February 20, 2017 Juliana elias Physician/Provi Medical 2016 12:00am Medent mandie Office [facility] Visit rn [facility] [place] Departed [facility] February 20, February 20, 2017 Sr. Di no [facility]- 2016 8:36pm 8:37pm [facility] [place] Departed [facility] September 08, 2018 September 08, 2018 null Emergency Medical 1:00pm 2:15pm Center-Emergency Department Departed [facility] January 13, 2019 January 13, 2019 nuparam virgen Emergency Medical 5:35pm 6:18pm Center-Emergency Department Assessments No Assessments Information Available Functional Status Observation Response Date Recorded Living Situation Home September 08, 2018 2:14p m Goals Goals may be documented in an alternate section. Immunizations Immunization Event Date Not Given Dose Number Anatomic Pathology Assistant Lot Number Vaccine Reason Informatio n Statement (VIS) Detail Tdap September 08 [id number] Mental Status No Mental Status Information Available Medical Equipment No Medical Equipment Information available Insurance Providers Guarantor YASMANY CHA Address [address] [address] Contact Info. Home Phone: Payer Policy Id Coverage Id Subscriber's Subscriber Id Effective E xpiration Name Date Date NOLA DUEÑAS [id number] BALA EUBANKS [id number] CROSS (DO NOT USE) MEDICAID [id number] YASMANY EUBANKS [id number] [place] S[place]F PAY Self N/A [place] MEDICAID [id number] YASMANY EUBANKS [id number] (DO NOT USE) Plan of Treatment Future Tests Future scheduled test information is unavailable Pending Tests Pending diagnostic test information is unavailable Future Visits Future appointment information is unavailable Referrals to Other Providers Reason for Referral Start Provider Provider Contact Provider Address Referral Date Information Sana Lo Work Phone: Benjy Ortega MD [address] [place] [address] Sana Lo Work Phone: Benjy Ortega MD [address] [place] [address] [place] [address] Future Procedures Future procedure information is unavailable Future Medications Future medication information is unavailable Patient Instructions Wound Care (DC) Quitting Smoking Social History Smoking Status Status Date of Observation Smokes tobacco daily (finding) September 08, 2018 1:47pm Observation Status Observation Response Date of Response Alcohol Use Yes September 08, 2018 1:47p m substance use type marijuana September 08, 2018 1:18p m Smoking Status Current every day smoker September 08, 2018 1:47pm Assigned Sex Female Vital Signs Vital Reading Result Reference Range Collection Date/ Time Weight 119.74 kg November 25, 2016 12:27pm Body Temperature 98.9 [degF] 97.6-99.6 November 25, 2016 12:27pm Heart Rate 107 /min 60-100 November 25, 2016 12:27pm Respiratory rate 18 /min 12-November 25, 2016 12:27pm Oxygen saturation by Pulse 98 % 95-100 [facility] 2016 oximetry 12:27pm BP Systolic 110 mm[Hg] 100-140 November 25, 2016 12:27pm BP Diastolic 70 mm[Hg] 50-85 November 25, 2016 12:27pm Height 64 [in_i] February 20, 2 017 3:38pm Weight 117.93 kg February 20, 2 017 3:38pm Body Temperature 99.1 [degF] 97.6-99.6 February 20, 2017 3:38pm Heart Rate 107 /min 60-100 February 20, 2 017 3:38pm Respiratory rate 16 /min 12-24 February 20, 2017 3:38pm Oxygen saturation by Pulse 98 % 95-100 [facility] 2016 3:38pm oximetry BP Systolic 104 mm[Hg] 100-140 February 20, 2 017 3:38pm BP Diastolic 68 mm[Hg] 50-85 February 20, 2 017 3:38pm BMI (Body Mass Index) 44.6 kg/m2 February 052016 3:38pm Weight 118.61 kg September 08, 2018 1 :11pm Body Temperature 99.2 [degF] 97.6-99.6 September 08, 2018 1:11pm Heart Rate 103 /min 60-100 September 08, 2018 2 :12pm Respiratory rate 16 /min -September 08, 2018 2:12pm Oxygen saturation by Pulse 99 % 95-100 September 08, 2018 1:11pm oximetry BP Systolic 124 mm[Hg] 100-140 September 08, 2018 2 :12pm BP Diastolic 87 mm[Hg] 50-85 September 08, 2018 2 :12pm
--- OUTSIDE RECORDS SUMMARY | 2021-08-16 23:28 | XMS_ITS | Continuity of Care Document ---
:1990 Author Organization Address [address] [place] [address] Care Team Providers Name Role Phone Sana Lo Primary Care Physician Unavailable Allergies, Adverse Reactions, Alerts Allergen Type Severity Reaction Last Updated Verified Status gluten Adverse Reaction Unknown November 25, 2016 Y Active haloperidol Adverse Reaction Unknown November 25, 2016 Y Active paroxetine Adverse Reaction Unknown November 25, 2016 Y Active Medications No medication information available. Problem List Active Problems Medical Problem Onset Date Status Laceration of index finger of left hand without Active complication Chronic cough Active Tobacco use disorder Active Acute bronchitis November 25, 2016 Procedures No known history of procedures. Relevant Diagnostic Tests and/or Laboratory Data No known relevant diagnostic tests, laboratory data, and/or discharge summary. Chief Complaint and Reason for Visit Encounter Admit Date Chief Complaint Reason for Visit Departed Emergency September 08, 2018 1:00pm finger injury Hospital Discharge Instructions Additional Discharge Instructions let some air get to your wound to allow it to dry out a bit...cover during the daytime to keep it clean..consider smoking cess ation which will most definately help your chronic cough...you will need to return to [facility] to have the Nexplanon removed and to dis cuss alternate methods of control Instruction/Education Provided Wound Care (DC) Quitting Smoking Encounters Encounter Facility Location Admit/Visit Discharge/Departure Atte nding Date Date Provider Departed [facility] Emergency September 08, 2018 September 08, 2018 2:15pm [facility] Department 1:00pm Functional Status Query Response Date Recorded Comment Living Situation Home September 08, 2018 2:14pm Immunizations Immunization Name Date Given Type Tdap September 08, 2018 Administered Payers Payer Name Policy Type Covered Covered Relationship Subscriber Sub scriber Id Green Party Green Party Id FEP BLUE Commercial BALA [id number] Grandchild BALA EUBANKS [id number] CROSS (DO CHA NOT USE) MEDICAID OF Medicaid YASMANY [id number] Self/Same as YASMANY [id number] [place] EUBANKS Patient EUBANKS SELF PAY Personal [place] Medicaid YASMANY [id number] Self/Same as YASMANY [id number] (DO NOT EUBANKS Patient EUBANKS USE) Plan of Care Instructions Wound Care (DC) Quitting Smoking Social History No known social history. Vital Signs Vital Reading Result Reference Range Collection Date/ Time Height n/a Weight 118.614 kg September 08, 2018 1:1 [...] September 08, 2018 2:12pm Body Mass Index n/a
--- OUTSIDE RECORDS SUMMARY | 2021-08-16 23:28 | XMS_ITS | Continuity of Care Document ---
:1990 Author Organization [facility] Address [address] [place] [address] Phone Support Name Relationship Address Phone CHA LEUNG Grandparent Unavailable Medent, Conversion Attending Provider Unavailable UnavailAlexander Walsh Emergency Provider [facility] [phone] [place] [address] ANA LAURA CATSILLO Family Provider Unavailable Unavailable Jim Beaulieu Emergency Provider [facility] Emergency Dept [phone] [place] [address] Hansa Anaya Attending Provider [facility] [place] [address] Scarlet Barrera Emergency Provider [facility] Emergency Dept [phone] [place] [address] Mark Anthony Francisco Emergency Provider [facility] Emergency Dept [phone] [place] [address] Noe Mccray Emergency Provider [facility] Emergency Dept [phone] [place] [address] Ricardo Anderson Emergency Provider [facility] [place] [address] Morteza Bai Emergency Provider [facility] [place] [address] Care Team Providers Name Role Phone Ana Laura Castillo Primary Care Provider Heather Gentile Attending Provider Vaughn Roca Attending Provider Ana Laura Castillo Attending Provider Sheryl Acevedo Attending Provider Pietro Duarte Attending Provider Unavailable Ana Laura Castillo Admit Provider Alexander Prescott Attending Provider PCP, Not Given Primary Care Provider Unavailable Jesse YU, Tony Higgins Attending Provider Unavailable Sana Lo Primary Care Provider Allergies, Adverse Reactions, Alerts Allergen Type Severity Reaction Last Updated Verified Status haloperidol Adverse Reaction Unknown February 08, Yes Active 2018 paroxetine Adverse Reaction Unknown February 08, Yes Active 2019 Medications Medication Status Dose Units Route Sig Qty Days Start End Instruct ions Date Date Ziprasidone Discontinu UNK CAPSULE February e Hcl ed 2018 r , 10:54pm 2018 5:32pm Sertraline Active UNK TABLET February 08, 2019 10:54pm Lorazepam Active UNK ORAL February 08, 2019 10:54pm Geodon Discontinu Februarye ed 2018 r , 10:54pm 2018 5:32pm Marijuana Active February 08, 2019 10:54pm Olanzapine Discontinu MG TABLET February e ed 2018 r , 9:08pm 2018 5:32pm [place] Discontinu ORAL Februarye Carbonate ed 2018 r 3rd, 9:18pm 2018 10:14pm Trazodone Discontinu TABLET Februarye ed 2018 r 3rd, 9:18pm 2018 10:14pm Benztropine Discontinu TABLET February be ed 2018 r 3rd, 9:18pm 2018 10:14pm Lorazepam Discontinu TABLET Februarye ed 2018 r 3rd, 9:18pm 2018 10:14pm Fluoxetine Discontinu MG CAPSULE Februarym be ed 2018 r 3rd, 9:18pm 2018 10:14pm Hydroxyzine Discontinu CAPSULE February mbe Pamoate ed 2018 r 3rd, 9:18pm 2018 10:14pm Melatonin Discontinu MG CAPSULE Februarymb e ed 2018 r 3rd, 9:18pm 2018 10:14pm Melatonin Discontinu MG CAPSULE Februarymb e ed 2018 r 3rd, 9:18pm 2018 10:14pm Cariprazine Discontinu MG CAPSULE February e ed 2018 r 3rd, 9:18pm 2018 10:14pm Risperidone Active 2 MG ORAL DAILY March 01, 2019 5:32pm Olanzapine Active 10 MG ORAL DAILY 06 March DOSIN G , REGIMENT: 2019 take 20 mg in 5:33pm AM daily and 10 mg in PM daily Problems Active Problems Medical Problem Onset Date Status Acute exacerbation of psychosis Active Acute bronchitis November 25, 2016 Active Inactive/Resolved Problems Medical Problem Onset Date Status Acute psychosis Resolved UTI (urinary tract infection) Resolved Adjustment disorder with anxiety Resolve d Laceration of index finger of left hand without complication Resolved Chronic cough Resolved 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 Tobacco use disorder Resolved Auditory hallucinations Resolved Hallucination, visual Resolved Procedures Procedure Date Performed Status Urine Culture completed Urine Culture completed Group A Streptococcus Screen (BRETT) compl eted US Extremity NonVas RT Limited March 12, 2010 completed Shoulder 2 vw Min RT March 06, 2010 completed Relevant Diagnostic Tests and/or Laboratory Data Laboratory Results Test Date/Time Result Interpretation Reference Result Perfo rming Range Comment Site White Blood Count 9.92 4.8-10.8 [facility] IN LAB, [address] [place] [address] 1000/mm3 [facility] [address] Red Blood Count 4.91 M/mm3 4.20-5.40 [facility], [address] [place] [address] Hemoglobin 14.4 g/dL 12.0-16.0 MAIN LAB, [address] [place] [address] Hematocrit 42.4 % 37-47 MAIN LAB, [address] [place] [address] Mean Corpuscular 86.4 fL 81.0-99.0 [facility], [address] [place] [address] Mean Corpuscular 29.3 pg 27-31 [facility], [address] [place] [address] [place] [address] Mean Corpuscular 34.0 g/dL 33-37 [facility], [address] [place] [address] Hemoglobin Concent [facility] [address] Red Cell 11.9 % 11.5-14.5 MAIN LAB, [address] [place] [address] Distribution Width [facility] [place] [address] Platelet Count 342 140-440 MAIN LAB, [address] [place] [address] 1000/mm3 [facility] [address] Mean Platelet 9.0 fL 7.4-10.4 MAIN L AB, [address] [place] [address] Neutrophils (%) 59.7 % 40.0-72.0 MAIN LAB, [address] [place] [address] (Auto) [place] [address] Lymphocytes (%) 32.4 % 17-45 MAIN LAB, [address] [place] [address] (Auto) [place] [address] Monocytes (%) 6.6 % 3-11 MAIN L AB, [address] [place] [address] (Auto) [place] [address] Eosinophils (%) 0.5 % 0-3 MAIN LAB, [address] [place] [address] (Auto) [place] [address] Basophils (%) 0.4 % 0-1 MAIN L AB, [address] [place] [address] (Auto) [place] [address] Immature 0.4 % 0-1 MAIN LAB, [address] [place] [address] Granulocyte % [place] [address] (Auto) Neutrophils # 5.93 1.4-6.5 MAIN L AB, [address] [place] [address] (Auto) 1000/mm3 [place] [address] Lymphocytes # 3.21 1.2-3.4 MAIN L AB, [address] [place] [address] (Auto) 1000/mm3 [place] [address] Monocytes # (Auto) 0.65 0.0-0.8 M AIN LAB, [address] [place] [address] 1000/mm3 [place] [address] Eosinophils # 0.05 0.0-0.7 MAIN L AB, [address] [place] [address] (Auto) 1000/mm3 [place] [address] Basophils # (Auto) 0.04 0.0-0.1 M AIN LAB, [address] [place] [address] 1000/mm3 [place] [address] Absolute Immature 0.0 0-1 MA IN LAB, [address] [place] [address] Granulocyte (auto [facility] [place] [address] Differential Automated MAIN LA B, [address] [place] [address] [place] [address] Urine RBC None seen MAIN LAB, [address] [place] [address] /[place] [address] Urine RBC 3-5 /hpf MAIN LAB, [address] [place] [address] [place] [address] Urine WBC 20-40 /hpf MAIN LAB, [address] [place] [address]. [place] [address] Urine WBC 10-20 /hpf MAIN LAB, [address] [place] [address] [place] [address] Urine Squamous 2+ /hpf MAIN LAB, [address] [place] [address] [place] [address] Urine Squamous 2+ /hpf MAIN LAB, [address] [place] [address] Epithelial Cells [facility] [address] Urine Bacteria 3+ /hpf NONE SEEN MAIN LAB, [address] [place] [address] Urine Bacteria 4+ /hpf NONE SEEN MAIN LAB, [address] [place] [address] Urine Mucus Present MAIN LAB , [address] [place] [address] Urine Mucus Present MAIN LAB , [address] [place] [address] Urine Culture Done Yes URINE M AIN LAB, [address] [place] [address] SPECIMEN [facility] [address] CULTURED Urine Culture Done Yes URINE M AIN LAB, [address] [place] [address] SPECIMEN [facility] [address] CULTURED Urine Negative NEGATIVE MAIN LAB, [address] [place] [address] Test [facility] [address] Sodium Level 138 mmol/L 137-145 MAIN L AB, [address] [place] [address] Potassium Level 3.8 mmol/L 3.6-5.0 [facility], [address] [place] [address] Chloride Level 104 mmol/L 98-107 MAIN LAB, [address] [place] [address] Carbon Dioxide 23 mmol/L 22-30 MAIN LAB, [address] [place] [address] Level [facility] [address] Anion Gap 11 7-16 MAIN LAB, [address] [place] [address] Blood Urea 9 mg/dL 7-17 MAIN LAB, [address] [place] [address] Nitrogen [facility] [address] Creatinine 0.48 mg/dL 0.52-1.04 MAIN LAB , [address] [place] [address] Glomerular > 60 mL/min >60.0 MAIN LA B, [address] [place] [address] Filtration Rate [facility] [address] Calc Glucose Level 97 mg/dL 70-100 MAIN L AB, [address] [place] [address] Calcium Level 9.6 mg/dL 8.4-10.2 MAIN L AB, [address] [place] [address] Calcium Adjusted 9.5 mg/dL 8.4-10.2 [facility], [address] [place] [address] for Albumin [facility] [address] Total Bilirubin 0.4 mg/dL 0.2-1.3 MAIN LAB, [address] [place] [address] Aspartate Amino 20 U/L 14-36 MAIN LAB, [address] [facility] Transf (AST/SGOT) [place] [address] Alanine 20 U/L 9-52 MAIN LAB, [address] [facility] [place] [address] (ALT/SGPT) Total Protein 7.3 g/dL 6.3-8.2 MAIN L AB, [address] [place] [address] Albumin 4.4 g/dL 3.5-5.0 MAIN LAB, [address] [place] [address] Alkaline 60 U/L 38-126 MAIN LAB, [address] [facility] [place] [address] Urine Methadone Negative Cutoff:200 [facility], [address] [place] [address] Screen ng/[place] [address] Urine Methadone Negative Cutoff:200 [facility], [address] [place] [address] Screen ng/[place] [address] Urine Methadone Negative Cutoff:200 [facility], [address] [place] [address] Screen ng/[place] [address] Microbiology Results Procedure Source Result Collection Result Result Performin g Date/Time Date/Time Comment Site Urine Culture Ur,Clean Escherichia Peter MAIN LAB, [address] [facility] Catch Coli 2018 [place] [address] 7:27am Urine Culture Ur,Clean Escherichia Peter MAIN LAB, [address] [place] [address] Catch Coli 2018 [place] [address] 7:29am Group A Throat Peter MAIN LAB, [address] [facility] Streptococcus [address] [place] [address] Screen (BRETT) 6:42am Diagnostic Imaging Reports Report Dictated Date/Time Dictated By Status Radiology Report March 06, 2010 11:22am Carlos Castellanos MD completed [facility] RADIOLOGY REPORT PATIENT NAME: YASMANY EUBANKS 56 [...] Grashe y and Y views, done at [facility] satellite clinic. 04/09/08 MRI of right shoulder. [...] 2010 8:52am Rosemary Tatum MD c ompleted [facility] ULTRASOUND REPORT PATIENT NAME: YASMANY EUBANKS 56 [...] have a copy on file here at [facility]? No Bernabe murray 2018 2:16pm Pt has a Living Will? No March 06 0 10:42am Do we have a copy on file here at [facility]? 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 No J trevor 2018 2:16pm Chief Complaint and Reason for Visit Chief Complaint LAB/ JOINT PAINS Pain CHEST XR INJURY XR Lab XR JT PAIN IN RT SHD finger injury EVIDENTIARY LUCILLE HEADACHE CRISIS MENTAL HEALTH NCSS ALT MENTAL STATUS Encounters Encounter Location(s) Arrival/Admit Date Discharge/Depart Provi mandie(s) Date Departed [facility] Conve rsion Physician/Provi Medical 12:00am Medent mandie Office Center-CONV Misc Visit Comp Pain location Departed [facility] May 18, 1998 May 18, 1998 null Emergency Medical 12:00am Center-Intermedia te Care Departed [facility] November 28, November 28, 1998 Julia Gentile Clinical Medical 1998 12:00am HEATING MECHANIC Center-Outpatient Conversion Departed [facility] October 12, 2001 October 12, 2001 Vaughn Roca [facility] 12:00am MD Jarquin Departed [facility] October 01, 2005 October 01, 2005 Ana Laura Ríos Clinical Medical 12:00am MD Jonathan Center-Outpatient Conversion Departed [facility] February 26, February 27, 2008 Sheryl Acevedo [facility] 2007 12:00am [facility] Departed [facility] March 12, 2008 March 12, 2008 josy Emergency Medical 12:00am Center-Emergency Department Departed [facility] March 15, 2008 March 15, 2008 Bradford perez [facility] 12:00am , DO Jarquin Departed [facility] April 09, 2008 April 09, 2008 El birch [facility] 12:00am , DO [facility] Departed [facility] June 25, 2009 June 25, 2009 Ana Laura Ríos Referred Medical 8:23pm MD Jonathan Center-Referred Lab Departed [facility] July 09, 2009 July 09, 2009 Ana Laura Ríos Clinical Medical 5:34pm 11:59pm MD Jonathan Center-Laboratory Registered [facility] March 06, Kenyon Munoz [facility] 2009 10:41am APRIL [facility] [place] Registered [facility] March 12, 2010 Kenyon mclaughlin [facility] 1:34pm APRIL [facility] Departed [facility] April 14, 2013 April 14, 2013 Con version Physician/Provi Medical 12:00am Medent mandie Office Center-[facility] Visit rn Assoc in Surgery Departed [facility] November 25, November 25, 2016 Sourav gaston PA-C Physician/Provi Medical 2016 12:00am [facility] [place] Departed [facility] February 20, February 20, 2017 Juliana elias Physician/Provi Medical 2016 12:00am [facility]ent [facility] [place] Departed [facility] February 20, February 20, 2017 Sr. Di no [facility] [place]- 2016 8:36pm 8:37pm [facility] [place] Departed [facility] September 08, 2018 September 08, 2018 null Emergency Medical 1:00pm 2:15pm Center-Emergency Department Departed [facility] January 13, 2019 January 13, 2019 nul l Emergency Medical 5:35pm 6:18pm Center-Emergency Department Departed [facility] February 07, 2019 February 07, 2019 nul l Emergency Medical 9:03pm 10:10pm Center-Emergency Department Departed [facility] February 08, 2019 February 08, 2019 nul l Emergency Medical 6:44am 1:14pm Center-Emergency Department Departed [facility] February 08, 2019 February 09, 2019 nul l Emergency Medical 10:48pm 10:17am Center-Emergency Department Departed [facility] March 01March 01, 2019 null Emergency Medical 2018 5:15am 6:24pm Center-Emergency Department Departed [facility] March 10, 2019 March 10, 2019 null Emergency Medical 3:33am 4:37am Center-Emergency Department Assessments No Assessments Information Available Functional Status Observation Response Date Recorded Living Situation Home March 10, 2019 4: 37am Living Situation Home March 01, 2019 6:22pm Living Situation Home February 08, 2019 1 :13pm Living Situation With Significant Other February 07 9:08pm Living Situation Home February 08, 2019 1 0:55pm Living Situation Home September 08, 2018 2:14p m Goals Goals may be documented in an alternate section. Immunizations Immunization Event Date Not Given Dose Number Innersole Fitter Lot Number Vaccine Reason Informatio n Statement (VIS) Detail Tdap September 08 [id number] 2018 Mental Status Observation Response Date Recorded Comprehension Ability Unable to Comprehend February 08 7:46am Comprehension Ability Understands Concepts February 08 11:12pm Medical Equipment No Medical Equipment Information available Insurance Providers Guarantor YASMANY EUBANKS Address [address] [place] [address] Contact Info. Home Phone: Payer Policy Id Coverage Id Subscriber's Subscriber Id Effective E xpiration Name Date Date NOLA DUEÑAS [id number] BALA EUBANKS [id number] CROSS (DO NOT USE) MEDICAID [id number] YASMANY EUBANKS [id number] [place] SELF PAY Self N/A [place] MEDICAID [id number] YASMANY EUBANKS [id number] (DO NOT USE) Plan of Treatment Future Tests Future scheduled test information is unavailable Pending Tests Pending diagnostic test information is unavailable Future Visits Future appointment information is unavailable Referrals to Other Providers Reason for Referral Start Provider Provider Contact Provider Address Referral Date Information Sana Lo Work Phone: Benjy Ortega MD [address] [place] [address] [place] [address] Sana Lo Work Phone: Benjy Ortega MD [address] [place] [address] Sana Lo Work Phone: Benjy Ortega MD [address] [place] [address] [place] [address] Sana Lo Work Phone: Benjy Ortega MD [address] [place] [address] [place] [address] Sana Lo Work Phone: Benjy Ortega MD [address] [place] [address] [place] [address] Sana Lo Work Phone: Benjy Ortega MD [address] [place] [address] [place] [address] Sana Lo Work Phone: Benjy Ortega MD [address] [place] [address] [place] [address] Future Procedures Future procedure information is unavailable Future Medications Future medication information is unavailable Patient Instructions Wound Care (DC) Quitting Smoking Acute Psychosis (DC) Social History Smoking Status Status Date of Observation Smokes tobacco daily (finding) March 10, 2019 3:57a m Observation Status Observation Response Date of Response Alcohol Use Yes March 10, 2019 3: 57am substance use type marijuana March 10, 2019 3: 57am Smoking Status Current every day smoker March 10 3:57am Assigned Sex Female Vital Signs Vital Reading Result Reference Range Collection Date/ Time Weight 119.74 kg November 25, 2016 12:27pm Body Temperature 98.9 [degF] 97.6-99.6 November 25, 2016 12:27pm Heart Rate 107 /min 60-100 November 25, 2016 12:27pm Respiratory rate 18 /min -November 25, 2016 12:27pm Oxygen saturation by Pulse 98 % 95-100 [facility] 2016 oximetry 12:27pm BP Systolic 110 mm[Hg] 100-140 November 25, 2016 12:27pm BP Diastolic 70 mm[Hg] 50-85 November 25, 2016 12:27pm Height 64 [in_i] February 20, 2 017 3:38pm Weight 117.93 kg February 20, 2 017 3:38pm Body Temperature 99.1 [degF] 97.6-99.6 February 20, 2017 3:38pm Heart Rate 107 /min 60-100 February 20, 2 017 3:38pm Respiratory rate 16 /min -February 20, 2017 3:38pm Oxygen saturation by Pulse 98 % 95-100 [facility] 2016 3:38pm oximetry BP Systolic 104 mm[Hg] [...] mm[Hg] 50-85 September 08, 2018 2 :12pm Height 65 [in_i] February 07 9:05pm Weight 108.86 kg February 07 9:05pm Body Temperature 98.0 [degF] 97.6-99.6 February 07, 2 019 9:05pm Heart Rate 124 /min 60-100 February 07 9:05pm Respiratory rate 20 /min 12-February 07, 2 019 9:05pm Oxygen saturation by Pulse 100 % 95-100 [facility] 2018 9:05pm oximetry BP Systolic 134 mm[Hg] 100-140 February 07, 9:05pm BP Diastolic 91 mm[Hg] 50-85 February 07, 9:05pm Weight 115.66 kg February 08, 6:47am Body Temperature 98.6 [degF] 97.6-99.6 February 08, 2 019 6:47am Heart Rate 102 /min 60-100 February 08, 6:47am Respiratory rate 16 /min -February 08, 2 019 6:47am Oxygen saturation by Pulse 97 % 95-100 [facility] 2018 6:47am oximetry BP Systolic 123 mm[Hg] 100-140 February 08, 6:47am BP Diastolic 93 mm[Hg] 50-85 February 08, 6:47am Weight 116.57 kg February 08 10:51pm Body Temperature 97.5 [degF] 97.6-99.6 February 09, 2 019 9:48am Heart Rate 73 /min 60-100 February 09 9:48am Respiratory rate 18 /min -February 08, 2 019 10:51pm Oxygen saturation by Pulse 99 % 95-100 [facility] 2018 9:48am oximetry BP Systolic 114 mm[Hg] 100-140 February 09, 9:48am BP Diastolic 71 mm[Hg] 50-85 February 09, 9:48am Weight 113.39 kg March 01, 2 019 5:20am Body Temperature 98.9 [degF] 97.6-99.6 March 01, 2019 5:20am Heart Rate 102 /min 60-100 March 01, 2 019 5:27pm Respiratory rate 12 /min -March 01, 2019 5:27pm Oxygen saturation by Pulse 98 % 95-100 [facility] 2018 5:27pm oximetry BP Systolic 131 mm[Hg] 100-140 March 01, 2 019 5:27pm BP Diastolic 69 mm[Hg] 50-85 March 01, 2 019 5:27pm Weight 108.86 kg March 10 0 3:35am Heart Rate 114 /min 60-100 March 10 0 3:35am Respiratory rate 16 /min 12-24 March 10, 3:35am Oxygen saturation by Pulse 95 % 95-100 2019 3:35am oximetry BP Systolic 149 mm[Hg] 100-140 March 10 0 3:35am BP Diastolic 104 mm[Hg] 50-85 March 10 0 3:35am
--- OUTSIDE RECORDS SUMMARY | 2021-08-16 23:28 | XMS_ITS | Continuity of Care Document ---
:1990 Author Organization [facility] Address [address] [place] [address] Care Team Providers Name Role Phone Sana [...] MG FebruaryMarch 01, Disco ntinue 2018 d [place] ORAL FebruaryFebruary 07, Discontin ue Carbonate 2018 [...] 2018 Olanzapine MG Peter Discontinue d 2018 [place] ORAL February Discontinued Carbonate 2018 Trazodone February [...] Discharge/Departure Atte nding Date Date Provider Departed [facility] Emergency March 10March 10, 2019 Emergency Medical Center Department 2019 3:33am 4:37am Departed [facility] Emergency March 01March 01, 2019 Emergency Medical Center Department 2018 5:15am 6:24pm Departed [facility] Emergency February 08February 09, 2019 Emergency Medical Center Department 2018 10:48pm 10:17am Departed [facility] Emergency February 08February 08, 2019 Emergency Medical Center Department 2018 6:44am 1:14pm Departed [facility] Emergency February 07February 07, 2019 Emergency Medical Center Department 2018 9:03pm 10:10pm Departed [facility] Emergency January 13January 13, 2019 Emergency Medical Center Department 2018 5:35pm 6:18pm Departed [facility] Emergency September 08, 2018 September 08, [...] Libertarian Libertarian Id FEP BLUE Commercial BALA [id number] Grandchild BALA EUBANKS [id number] CROSS (DO EUBANKS NOT USE) MEDICAID OF Medicaid YASMANY [id number] Self/Same as YASMANY [id number] [place] EUBANKS Patient EUBANKS SELF PAY Personal [place] MEDICA[place] Medicaid YASMANY [id number] Self/Same as YASMANY [id number] (DO NOT EUBANKS Patient EUBANKS USE) [...]
--- OUTSIDE RECORDS SUMMARY | 2021-08-16 23:28 | XMS_ITS | Continuity of Care Document ---
:1990 Author Organization [facility] Address [address] [place] [address] Phone Support Name Relationship Address Phone CHA LEUNG Grandparent Unavailable Medent, Conversion Attending Provider Unavailable UnavailAlexander Walsh Emergency Provider [facility] Primary Care [phone] [place] [address] ANA LAURA CASTILLO Family Provider Unavailable Unavailable Jim Beaulieu Emergency Provider [facility] [place] [address] Hansa Anaya Attending Provider [facility] Urgent Care [phone] [place] [address] Scarlet Barrera Emergency Provider [facility] [place] [address] Mark Anthony Francisco Emergency Provider [facility] [place] [address] Noe Mccray Emergency Provider [facility] [place] [address] Ricardo Anderson Emergency Provider [facility] [place] [address] Morteza Bai Emergency Provider [facility] [place] [address] Care Team Providers Name Role Phone Ana Laura Castillo Primary Care Provider Heather Gentile Attending Provider Vaughn Roca Attending Provider Ana Laura Castillo Attending Provider Sheryl Acevedo Attending Provider Pietro Duarte Attending Provider Unavailable Ana Laura Castillo Admit Provider Alexander Prescott Attending Provider PCP, Not Given Primary Care Provider Unavailable Jesse UY, Tony Higgins Attending Provider Unavailable Sana Lo [...] ed 2018 r , 9:08pm 2018 5:32pm [place] Discontinu ORAL Februarye Carbonate ed 2018 r [...] Blood Count 9.92 4.8-10.8 MA IN LAB, [address] [place] [address] 1000/mm3 [facility] [address] Red Blood Count 4.91 M/mm3 4.20-5.40 [facility], [address] [place] [address] Hemoglobin 14.4 g/dL 12.0-16.0 MAIN LAB, [address] [place] [address] Hematocrit 42.4 % 37-47 MAIN LAB, [address] [place] [address] Mean Corpuscular 86.4 fL 81.0-99.0 [facility], [address] [place] [address] Mean Corpuscular 29.3 pg 27-31 [facility], [address] [place] [address] [place] [id number] Mean Corpuscular 34.0 g/dL 33-37 [facility], [address] [place] [address] Hemoglobin Concent [facility] [address] Red Cell 11.9 % 11.5-14.5 MAIN LAB, [address] [place] [address] Distribution [place] [address] Platelet Count 342 140-440 MAIN LAB, [address] [place] [address] 1000/mm3 [facility] [address] Mean Platelet 9.0 fL 7.4-10.4 MAIN L AB, [address] [place] [address] Neutrophils (%) 59.7 % 40.0-72.0 MAIN LAB, [address] [place] [address] (Auto) [place] [address] Lymphocytes (%) 32.4 % 17-45 MAIN LAB, [address] [place] [address] (Auto) [place] [address] Monocytes (%) 6.6 % 3-11 MAIN L AB, [address] [place] [address] (Auto) [place] [address] Eosinophils (%) 0.5 % 0-3 MAIN LAB, [address] [place] [address] (Auto) [place] [address] Basophils (%) 0.4 % 0-1 MAIN L AB, [address] [place] [address] (Auto) [place] [address] Immature 0.4 % 0-1 MAIN LAB, [address] [place] [address] Granulocyte % [place] [address] (Auto) Neutrophils # 5.93 1.4-6.5 MAIN L AB, [address] [place] [address] (Auto) 1000/mm3 [place] [address] Lymphocytes # 3.21 1.2-3.4 MAIN L AB, [address] [place] [address] (Auto) 1000/mm3 [place] [address] Monocytes # (Auto) 0.65 0.0-0.8 M AIN LAB, [address] [place] [address] 1000/mm3 [place] [address] Eosinophils # 0.05 0.0-0.7 MAIN L AB, [address] [place] [address] (Auto) 1000/mm3 [place] [address] Basophils # (Auto) 0.04 0.0-0.1 M AIN LAB, [address] [place] [address] 1000/mm3 [place] [address] Absolute Immature 0.0 0-1 MA IN LAB, [address] [place] [address] Granulocyte (auto [facility] [place] [address] Differential Automated MAIN LA B, [address] [place] [address] [place] [address] Urine RBC None seen MAIN LAB, [address] [place] [address] /[place] [address] Urine RBC 3-5 /hpf MAIN LAB, [address] [place] [address] [place] [address] Urine WBC 20-40 /hpf MAIN LAB, [address] [place] [address]. [place] [address] Urine WBC 10-20 /hpf MAIN LAB, [address] [place] [address] [place] [address] Urine Squamous 2+ /hpf MAIN LAB, [address] [place] [address] [place] [address] Urine Squamous 2+ /hpf MAIN LAB, [address] [place] [address] Epithelial Cells [facility] [address] Urine Bacteria 3+ /hpf NONE SEEN MAIN LAB, [address] [place] [address] Urine Bacteria 4+ /hpf NONE SEEN MAIN LAB, [address] [place] [address] Urine Mucus Present MAIN LAB , [address] [place] [address] Urine Mucus Present MAIN LAB , [address] [place] [address] Urine Culture Done Yes URINE M AIN LAB, [address] [place] [address] SPECIMEN [facility] [address] CULTURED Urine Culture Done Yes URINE M AIN LAB, [address] [place] [address] SPECIMEN [facility] [address] CULTURED Urine Negative NEGATIVE MAIN LAB, [address] [place] [address] Test [facility] [address] Sodium Level 138 mmol/L 137-145 MAIN L AB, [address] [place] [address] Potassium Level 3.8 mmol/L 3.6-5.0 MARIA C N [facility], [address] [place] [address] Chloride Level 104 mmol/L 98-107 MAIN LAB, [address] [place] [address] Carbon Dioxide 23 mmol/L 22-30 MAIN LAB, [address] [place] [address] Level [facility] [address] Anion Gap 11 7-16 MAIN LAB, [address] [place] [address] Blood Urea 9 mg/dL 7-17 MAIN LAB, [address] [place] [address] Nitrogen [facility] [address] Creatinine 0.48 mg/dL 0.52-1.04 MAIN LAB , [address] [place] [address] Glomerular > 60 mL/min >60.0 MAIN LA B, [address] [place] [address] Filtration Rate [facility] [address] Calc Glucose Level 97 mg/dL 70-100 MAIN L AB, [address] [place] [address] Calcium Level 9.6 mg/dL 8.4-10.2 MAIN L AB, [address] [place] [address] Calcium Adjusted 9.5 mg/dL 8.4-10.2 MARIA C N LAB, [address] [place] [address] for Albumin [facility] [address] Total Bilirubin 0.4 mg/dL 0.2-1.3 MAIN LAB, [address] [place] [address] Aspartate Amino 20 U/L 14-36 MAIN LAB, [address] [facility] Transf (AST/SGOT) [place] [address] Alanine 20 U/L 9-52 MAIN LAB, [address] [facility] [place] [address] (ALT/SGPT) Total Protein 7.3 g/dL 6.3-8.2 MAIN L AB, [address] [place] [address] Albumin 4.4 g/dL 3.5-5.0 MAIN LAB, [address] [place] [address] Alkaline 60 U/L 38-126 MAIN LAB, [address] [facility] [place] [address] Urine Methadone Negative Cutoff:200 MARIA C N [facility], [address] [place] [address] Screen ng/[place] [address] Urine Methadone Negative Cutoff:200 MARIA [facility], [address] [place] [address] Screen ng/[place] [address] Urine Methadone Negative Cutoff:200 MARIA [facility], [address] [place] [address] Screen ng/[place] [address] Microbiology Results Procedure Source Result Collection Result Result Performin g Date/Time Date/Time Comment Site Urine Culture Ur,Clean Escherichia Peter MAIN LAB, [address] [facility] Catch Coli 2018 [place] [address] 7:27am Urine Culture Ur,Clean Escherichia Peter MAIN LAB, [address] [place] [address] Catch Coli 2018 [place] [address] 7:29am Group A Throat Peter MAIN LAB, [address] [facility] Streptococcus [address] [place] [address] Screen (BRETT) 6:42am Diagnostic Imaging Reports Report Dictated Date/Time Dictated By Status Radiology Report March 06, 2010 11:22am Carlos Castellanos MD completed [facility] RADIOLOGY REPORT PATIENT NAME: YASMANY EUBANKS [...] Grashe y and Y views, done at [facility] satellite clinic. 04/09/08 MRI of right shoulder. [...] 2010 8:52am Rosemary Tatum MD c ompleted [facility] ULTRASOUND REPORT PATIENT NAME: YASMANY EUBANKS [...] have a copy on file here at [facility]? No Bernabe murray 2018 2:16pm Pt has a Living Will? No March 06 0 10:42am Do we have a copy on file here at [facility]? No Bernabe murray 2018 2:16pm Pt has a Power of Claims Account Specialist? No February 10:42am Do we have a copy on file here at [facility]? No J trevor 2018 2:16pm Chief Complaint and Reason for Visit Chief Complaint LAB/ JOINT PAINS Pain CHEST XR INJURY XR Lab XR JT PAIN IN RT SHD finger injury EVIDENTIARY LUCILLE HEADACHE CRISIS MENTAL HEALTH NCSS ALT MENTAL STATUS Encounters Encounter Location(s) Arrival/Admit Date Discharge/Depart Provi mandie(s) Date Departed [facility] Conve rsion Physician/Provi Medical 12:00am Medent mandie Office Center-CONV Misc Visit Comp Pain location Departed [facility] May 18, 1998 May 18, 1998 null Emergency Medical 12:00am Center-Intermedia te Care Departed [facility] November 28, November 28, 1998 Julia Gentile Clinical Medical 1998 12:00am YARDAGE ESTIMATOR Center-Outpatient Conversion Departed [facility] October 12, 2001 October 12, 2001 Vaughn Roca [facility]-DI 12:00am MD Jarquin Departed [facility] October 01, 2005 October 01, 2005 Ana Laura Ríos Clinical Medical 12:00am MD Jonathan Center-Outpatient Conversion Departed [facility] February 26, February 27, 2008 Sheryl Acevedo [facility]-DI 2007 12:00am [facility] Departed [facility] March 12, 2008 March 12, 2008 josy Emergency Medical 12:00am Center-Emergency Department Departed [facility] March 15, 2008 March 15, 2008 Bradford perez [facility]-DI 12:00am , DO Jarquin Departed [facility] April 09, 2008 April 09, 2008 El birch [facility]-DI 12:00am , DO [facility] Departed [facility] June 25, 2009 June 25, 2009 Ana Laura Ríos Referred Medical 8:23pm MD Jonathan Center-Referred Lab Departed [facility] July 09, 2009 July 09, 2009 Ana Laura Ríso Clinical Medical 5:34pm 11:59pm MD Jonathan Center-Laboratory Registered [facility] March 06, Kenyon Munoz [facility] 2009 10:41am APRIL [facility] [place] Registered [facility] March 12, 2010 Kenyon mclaughlin [facility] 1:34pm APRIL [facility] Departed [facility] April 14, 2013 April 14, 2013 Con version Physician/Provi Medical 12:00am Medent mandie Office Center-[facility] Visit rn Assoc in Surgery Departed [facility] November 25, November 25, 2016 Sourav gaston PA-C Physician/Provi Medical 2016 12:00am [facility] [place] Departed [facility] February 20, February 20, 2017 Juliana elias Physician/Provi Medical 2016 12:00am [facility] [place] Departed [facility] February 20, February 20, 2017 Sr. Di no Referred Medical [place]- 2016 8:36pm 8:37pm [facility] [place] Departed [facility] September 08, 2018 September 08, 2018 null Emergency Medical 1:00pm 2:15pm Center-Emergency Department Departed [facility] January 13, 2019 January 13, 2019 nul l Emergency Medical 5:35pm 6:18pm Center-Emergency Department Departed [facility] February 07, 2019 February 07, 2019 nul l Emergency Medical 9:03pm 10:10pm Center-Emergency Department Departed [facility] February 08, 2019 February 08, 2019 nul l Emergency Medical 6:44am 1:14pm Center-Emergency Department Departed [facility] February 08, 2019 February 09, 2019 nul l Emergency Medical 10:48pm 10:17am Center-Emergency Department Departed [facility] March 01March 01, 2019 null Emergency Medical 2018 5:15am 6:24pm Center-Emergency Department Departed [facility] March 10, 2019 March 10, 2019 [...] Immunization Event Date Not Given Dose 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 Home Phone: Payer Policy Id Coverage Id Subscriber's Subscriber Id Effective E xpiration Name Date Date NOLA DUEÑAS [id number] BALA EUBANKS [id number] CROSS (DO NOT USE) MEDICAID [id number] YASMANY EUBANKS [id number] [place] PAY Self N/A [place] MEDICAID [id number] YASMANY EUBANKS [id number] (DO NOT USE) Plan of Treatment Future Tests Future scheduled test information is unavailable Pending Tests Pending diagnostic test information is unavailable Future Visits Future appointment information is unavailable Referrals to Other Providers Reason for Referral Start Provider Provider Contact Provider Address Referral Date Information Sana Lo Work Phone: Benjy Ortega MD [address] [place] [address] [place] [address] Sana Lo Work Phone: Benjy Ortega MD [address] [place] [address] Sana Lo Work Phone: Benjy Ortega MD [address] [place] [address] [place] [address] Sana Lo Work Phone: Benjy Ortega MD [address] [place] [address] [place] [address] Sana Lo Work Phone: Benjy Ortega MD [address] [place] [address] [place] [address] Sana Lo Work Phone: Benjy Ortega MD [address] [place] [address] [place] [address] Sana Lo Work Phone: Benjy Ortega MD [address] [place] [address] [place] [address] Future Procedures Future procedure information is unavailable [...] Oxygen saturation by Pulse 98 % 95-100 [facility] 2016 oximetry 12:27pm BP Systolic 110 [...] Oxygen saturation by Pulse 98 % 95-100 [facility] 2016 3:38pm oximetry BP Systolic 104 mm[Hg] [...]
--- OUTSIDE RECORDS SUMMARY | 2021-08-16 23:28 | XMS_ITS | Continuity of Care Document ---
:1990 Author Organization [facility] Address [address] [place] [address] Phone Care Team Providers Name Role Phone Michelle Loly Primary Care Provider Unavailable Allergies, Adverse Reactions, Alerts Allergen Type Severity Reaction Last Updated Verified Status gluten Adverse Reaction Unknown November 25, 2016 Ye s Active haloperidol Adverse Reaction Unknown November 25, 2016 Yes Active paroxetine Adverse Reaction Unknown November 25, 2016 Y es Active Medications No medication information available. Problems Active Problems Medical Problem Onset Date Status Laceration of index finger of left hand without Active complication Chronic cough Active Tobacco use disorder Active Acute bronchitis November 25, 2016 Active Chief Complaint and Reason for Visit Chief Complaint finger injury Encounters Encounter Location(s) Arrival/Admit Date Discharge/Depart Date Provider(s) Departed [facility] September 08, 2018 September 08, 2018 2:15pm [facility] Emergency Medical 1:00pm Center-Emergency Department Assessments No Assessments Information Available Functional Status Observation Response Date Recorded Living Situation Home September 08, 2018 2:14p m Goals Acute Goals Wound Care (DC) Quitting Smoking Immunizations Immunization Event Date Not Given Dose Number Internal Investigator Lot Number Vaccine Reason Informatio n Statement (VIS) Detail Tdap September 08, [id number] VIS not gi queta 2019 Mental Status No Mental Status Information Available Medical Equipment No Medical Equipment Information available Insurance Providers Guarantor YASMANY EUBANKS Address [address] [facility] [address] Contact Info. Home Phone: Payer Policy Id Coverage Id Subscriber's Subscriber Id Effective E xpiration Name Date Date FEP SPENSER [id number] BALA Kidd EUBANKS [id number] CROSS (DO NOT USE) MEDICAID OF [id number] YASMANY EUBANKS [id number] [place] SELF PAY Self N/A [place] MEDICAID [id number] YASMANY EUBANKS [id number] (DO NOT USE) Plan of Treatment Future Tests Future scheduled test information is unavailable Pending Tests Pending diagnostic test information is unavailable Future Visits Future appointment information is unavailable Referrals to Other Providers Reason for Referral Start Provider Provider Contact Provider Address Referral Date Information Wally Hood Work Phone: [facility] [address] [place] [address] Future Procedures Future procedure information is unavailable Future Medications Future medication information is unavailable Patient Instructions Patient instructions are unavailable Social History Assigned Sex Female Vital Signs Vital Reading Result Reference Range Collection Date/ Time Weight 118.61 kg September 08, 2018 1 :11pm Body Temperature 99.2 [degF] 97.6-99.6 September 08, 2018 1:11pm Heart Rate 103 /min 60-100 September 08, 2018 2 :12pm Respiratory rate 16 /min 12-24 September 08, 2018 2:12pm Oxygen saturation by Pulse oximetry 99 % 95-100 September 08, 2018 1:11pm BP Systolic 124 mm[Hg] 100-140 September 08, 2018 2 :12pm BP Diastolic 87 mm[Hg] 50-85 September 08, 2018 2 :12pm Hospital Discharge Instructions Additional Instructions let some air get to your wound to allow it to dry out a bit...cover during the daytime to keep it clean..consider smoking cessation which will most definately help your chronic cough...you will need to return to [facility] to have the Nexplanon removed and to discuss alternate methods of control
--- OUTSIDE RECORDS SUMMARY | 2021-08-16 23:28 | XMS_ITS | Continuity of Care Document ---
:1990 Author Organization [facility] Address [address] [place] [address] Phone Care Team Providers Name Role Phone [...] Reaction Unknown February 08, Yes Active 2018 Medications Medication Status Dose Units Route Sig Qty Days Start End Date Instr uctions Date Ziprasidone Active UNK CAPSULE February 10:54pm Sertraline Active UNK TABLET February 08, 2019 10:54pm Lorazepam Active UNK ORAL February 08, 2019 10:54pm Geodon Active February 08, 2019 10:54pm Marijuana Active February 08, 2019 10:54pm Olanzapine Active MG TABLET February 07, 2019 9:08pm [facility] Discontinue ORAL February Carbonate d 2018, 9:18pm 2018 10:14pm Trazodone Discontinue TABLET Februarymb er d 2018, 9:18pm 2018 10:14pm Benztropine Discontinue TABLET February mber d 2018, 9:18pm 2018 10:14pm Lorazepam Discontinue TABLET Februarymb er d 2018 3rd, 9:18pm 2018 10:14pm Fluoxetine Discontinue MG CAPSULE February mber d 2018 3rd, 9:18pm 2018 10:14pm Hydroxyzine Discontinue CAPSULE February ember Pamoate d 2018, 9:18pm 2018 10:14pm Melatonin Discontinue MG CAPSULE February ventura d 2018, 9:18pm 2018 10:14pm Melatonin Discontinue MG CAPSULE Februarym ventura d 2018, 9:18pm 2018 10:14pm Cariprazine Discontinue MG CAPSULE February ember d 2018 3rd, 9:18pm 2018 10:14pm Problems Active Problems Medical Problem Onset Date Status Acute psychosis Active UTI (urinary tract infection) Active Adjustment disorder with anxiety Active Acute bronchitis November 25, 2016 Active Auditory hallucinations Active Hallucination, visual Active Inactive/Resolved Problems Medical Problem Onset Date Status Laceration of index finger of left hand without complication Resolved Chronic cough Resolved Tobacco use disorder Resolved Procedures Procedure Date Performed Status Urine Culture active Urine Culture active Group A Streptococcus Screen (BRETT) compl eted US Extremity NonVas RT Limited March 12, 2010 completed Shoulder 2 vw Min RT March 06, 2010 completed Relevant Diagnostic Tests and/or Laboratory Data Laboratory Results Test Date/Time Result Interpretation Reference Result Perfo rming Range Comment Site Urine RBC 3-5 /hpf MAIN LAB, [address] [place] [address] Urine RBC None seen MAIN LAB, [address] [facility] /[place] [address] Urine WBC 10-20 /hpf MAIN LAB, [address] [place] [address] Urine WBC 20-40 /hpf MAIN LAB, [address] [place] [address] [place] [address] Urine 2+ /hpf MAIN LAB, [address] [place] [address] [place] [address] Epithelial Cells Urine 2+ /hpf MAIN LAB, [address] [place] [address] [place] [address] Epithelial Cells Urine 4+ /hpf NONE SEEN MAIN LAB, [address] [place] [address] [place] [address] Urine 3+ /hpf NONE SEEN MAIN LAB, [address] [place] [address] [place] [address] Urine Mucus Present MAIN LAB , [address] [place] [address] [place] [address] Urine Mucus Present MAIN LAB , [address] [place] [address] [place] [address] Urine Culture Yes URINE MAIN L AB, [address] [facility] [place] [address] CULTURED Urine Culture Yes URINE MAIN L AB, [address] [facility] [place] [address] CULTURED Urine Negative NEGATIVE MAIN LAB, [address] [place] [address] Test Urine Negative Cutoff:200 MAIN LAB, [address] [facility] Methadone ng/[place] [address] Screen Urine Negative Cutoff:200 MAIN LAB, [address] [facility] Methadone ng/[place] [address] Screen Microbiology Results Procedure Source Result Collection Result Result Performin g Date/Time Date/Time Comment Site Group A Throat February MAIN LAB, [address] [facility] Streptococcus [address] [place] [address] Screen (BRETT) 6:42am Diagnostic Imaging Reports Report Dictated Date/Time Dictated By Status Radiology Report March 06, 2010 11:22am Carlos Castellanos MD completed [facility] RADIOLOGY REPORT PATIENT NAME: YASMANY EUBAKNS [id number] DATE OF : 1990 ATTENDING/ER [...] Grashe y and Y views, done at [facility] satellite clinic. 04/09/08 MRI of right shoulder. [...] 13, 2010 8:52am Rose[facility] Tatum [facility] ULTRASOUND REPORT PATIENT NAME: [...] have a copy on file here at [facility]? No Bernabe murray 2018 2:16pm Pt has a Living Will? No March 06, 0 10:42am Do we have a copy on file here at [facility]? No Bernabe murray 2018 2:16pm Pt has a Power of Housekeeping Supervisor Hotel? No February 10:42am Do we have a copy on file here at [facility]? No Bernabe trevor 2018 2:16pm Chief Complaint and Reason for Visit Chief Complaint LAB/ JOINT PAINS Pain CHEST XR INJURY XR Lab XR JT PAIN IN RT SHD finger injury EVIDENTIARY LUCILLE HEADACHE CRISIS MENTAL HEALTH Encounters Encounter Location(s) Arrival/Admit Date Discharge/Depart Provi mandie(s) Date Departed [facility] Conve rsion Physician/Provi Medical 12:00am Medent mandie Office Center-CONV Misc Visit Comp Pain location Departed [facility] May 18, 1998 May 18, 1998 [facility] Emergency Medical 12:00am Center-Intermedia te Care Departed [facility] November 28, November 28, 1998 Julia Gentile Clinical Medical 1998 12:00am 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-DI 12:00am MD Jarquin Departed [facility] October 01, 2005 October 01, 2005 Ana Laura Ríos Clinical Medical 12:00am MD Jonathan Center-Outpatient Conversion Departed [facility] February 26, February 27, [address] [facility]-DI 2007 12:00am [facility] Departed [facility] March 12, 2008 March 12, 2008 josy Emergency Medical 12:00am Center-Emergency Department Departed [facility] March 15, 2008 March 15, 2008 Bradford perez [facility]-DI 12:00am , Synergy Departed [facility] April 09, 2008 April 09, 2008 El birch [facility]-DI 12:00am , [facility] Departed [facility] June 25, 2009 June 25, 2009 Ana Laura Ríos Referred Medical 8:23pm MD Jonathan Center-Referred Lab Departed [facility] July 09, 2009 July 09, 2009 Ana Laura Ríos Clinical Medical 5:34pm 11:59pm MD Jonathan Center-Laboratory Registered [facility] March 06, Kenyon Munoz [facility] 2009 10:41am APRIL [facility] [place] Registered [facility] March 12, 2010 Prescott Preet id , [facility] 1:34pm APRIL [facility] Departed [facility] April 14, 2013 April 14, 2013 Con version Physician/Provi Medical 12:00am Medent mandie Office Center-[facility] Visit rn Assoc in Surgery Departed [facility] November 25, November 25, 2016 Sourav gaston PA-C Physician/Provi Medical 2016 12:00am Hansa mandie Office Center-[facility] Visit rn [facility] [place] Departed [facility] February 20, February 20, 2017 Juliana elias Physician/[facility] 2016 12:00am Medent mandie Office Center-[facility] Visit rn [facility] [place] Departed [facility] February 20, February 20, 2017 Sr. Di no [facility]- 2016 8:36pm 8:37pm [facility] [place] Departed [facility] September 08, 2018 September 08, 2018 [facility] Emergency Medical 1:00pm 2:15pm Center-Emergency Department Departed [facility] January 13, 2019 January 13, 2019 nul l Emergency Medical 5:35pm 6:18pm Center-Emergency Department Departed [facility] February 07, 2019 February 07, 2019 nu l Emergency Medical 9:03pm 10:10pm Center-Emergency Department Departed [facility] February 08, 2019 February 08, 2019 nu l Emergency Medical 6:44am 1:14pm Center-Emergency Department Departed [facility] February 08, 2019 February 09, 2019 nu l Emergency Medical 10:48pm 10:17am Center-Emergency Department Assessments No Assessments Information Available Functional Status Observation Response Date Recorded Living Situation Home February 08, 2019 1 :13pm Living Situation With Significant Other February 07 9:08pm Living Situation Home February 08, 2019 1 0:55pm Living Situation Home September 08, 2018 2:14p m Goals Goals may be documented in an alternate section. Immunizations Immunization Event Date Not Given Dose Number Crew Boat Operator Lot Number Vaccine Reason Informatio n Statement (VIS) Detail Tdap September 08, [id number] 2018 Mental Status Observation Response Date Recorded Comprehension Ability Unable to Comprehend February 08 7:46am Comprehension Ability Understands Concepts February 08 11:12pm Medical Equipment No Medical Equipment Information available Insurance Providers Guarantor YASMANY EUBANKS Address [address] [place] [address] Contact Info. Home Phone: Payer Policy Id Coverage Id Subscriber's Subscriber Id Effective E xpiration Name Date Date FEP SPENSER [id number] BALA EUBANKS [id number] CROSS (DO NOT USE) MEDICAID [id number] YASMANY EUBANKS [id number] [place] S[place]F PAY Self N/A [place] MEDICAID [id number] YASMANY EUBANKS [id number] (DO NOT USE) Plan of Treatment Future Tests Future scheduled test information is unavailable Pending Tests Pending diagnostic test information is unavailable Future Visits Future appointment information is unavailable Referrals to Other Providers Reason for Referral Start Provider Provider Contact Provider Address Referral Date Information Sana Lo Work Phone: Benjy Ortega MD [address] [place] [address] Sana Lo Work Phone: Benjy Ortega MD [address] [place] [address] Sana Lo Work Phone: Benjy Ortega MD [address] [place] [address] Sana Lo Work Phone: Benjy Ortega MD [address] [place] [address] Sana Lo Work Phone: Benyj Ortega MD [address] [place] [address] [place] [address] Future Procedures Future procedure information is unavailable Future Medications Future medication information is unavailable Patient Instructions Wound Care (DC) Quitting Smoking Acute Psychosis (DC) Social History Smoking Status Status Date of Observation Smokes tobacco daily (finding) February 08, 2019 11:0 4pm Observation Status Observation Response Date of Response Alcohol Use Yes February 08, 2019 1 1:04pm substance use type marijuana February 08, 2019 1 1:04pm Smoking Status Current every day smoker February 08 019 11:04pm Assigned Sex Female Vital Signs Vital Reading Result Reference Range Collection Date/ Time Weight 119.74 kg November 25, 2016 12:27pm Body Temperature 98.9 [degF] 97.6-99.6 November 25, 2016 12:27pm Heart Rate 107 /min 60-100 November 25, 2016 12:27pm Respiratory rate 18 /min 12-24 November 25, 2016 12:27pm Oxygen saturation by Pulse 98 % 95-[facility] oximetry 12:27pm BP Systolic 110 mm[Hg] 100-140 November 25, 2016 12:27pm BP Diastolic 70 mm[Hg] 50-85 November 25, 2016 12:27pm Height 64 [in_i] February 20, 2 017 3:38pm Weight 117.93 kg February 20, 2 017 3:38pm Body Temperature 99.1 [degF] 97.6-99.6 February 20, 2017 3:38pm Heart Rate 107 /min 60-100 February 20, 2 017 3:38pm Respiratory rate 16 /min 12-February 20, 2017 3:38pm Oxygen saturation by Pulse 98 % 95-100 Decem ventura 2016 3:38pm oximetry BP Systolic 104 mm[Hg] [...] February 07 9:05pm Respiratory rate 20 /min -February 07, 2 019 9:05pm Oxygen saturation by Pulse 100 % 95-100 Decem 2018 9:05pm oximetry BP Systolic 134 mm[Hg] 100-140 February 07 9:05pm BP Diastolic 91 mm[Hg] 50-85 February 07 9:05pm Weight 115.66 kg February 08 6:47am Body Temperature 98.6 [degF] 97.6-99.6 February 08, 2 019 6:47am Heart Rate 102 /min 60-100 February 08, 6:47am Respiratory rate 16 /min -February 08, 2 019 6:47am Oxygen saturation by Pulse 97 % 95-100 Decem 2018 6:47am oximetry BP Systolic 123 mm[Hg] 100-140 February 08, 6:47am BP Diastolic 93 mm[Hg] 50-85 February 08, 6:47am Weight 116.57 kg February 08 10:51pm Body Temperature 97.5 [degF] 97.6-99.6 February 09, 2 019 9:48am Heart Rate 73 /min 60-100 February 09 9:48am Respiratory rate 18 /min -February 08, 2 019 10:51pm Oxygen saturation by Pulse 99 % 95-100 Decem ventura 2018 9:48am oximetry BP Systolic 114 mm[Hg] 100-140 February 09 9:48am BP Diastolic 71 mm[Hg] 50-85 February 09 9:48am
--- OUTSIDE RECORDS SUMMARY | 2021-08-16 23:28 | XMS_ITS | Continuity of Care Document ---
:1990 Author Organization [facility] Address [address] [place] [address] Phone Care Team Providers Name Role Phone [...] Active MG TABLET February 07, 2019 9:08pm [place] Discontinue ORAL February Carbonate d 2018, 9:18pm [...] Urine RBC 3-5 /hpf MAIN LAB, [address] [facility] [place] [address] Urine RBC None seen MAIN LAB, [address] [facility] /[place] [address] Urine WBC 10-20 /hpf MAIN LAB, [address] [facility] [place] [address] Urine WBC 20-40 /hpf MAIN LAB, [address] [place] [address] [place] [address] Urine 2+ /hpf MAIN LAB, [address] [place] [address] [place] [address] Epithelial Cells Urine 2+ /hpf MAIN LAB, [address] [place] [address] [place] [address] Epithelial Cells Urine 4+ /hpf NONE SEEN MAIN LAB, [address] [place] [address] [place] [address] Urine 3+ /hpf NONE SEEN MAIN LAB, [address] [place] [address] [place] [address] Urine Mucus Present MAIN LAB , [address] [place] [address] [place] [address] Urine Mucus Present MAIN LAB , [address] [place] [address] [place] [address] Urine Culture Yes URINE MAIN L AB, [address] [facility] [place] [address] CULTURED Urine Culture Yes URINE MAIN L AB, [address] [facility] [place] [address] CULTURED Urine Negative NEGATIVE MAIN LAB, [address] [facility] [place] [address] Test Urine Negative Cutoff:200 MAIN LAB, [address] [facility] Methadone ng/[place] [address] Screen Urine Negative Cutoff:200 MAIN LAB, [address] [facility] Methadone ng/[place] [address] Screen Microbiology Results Procedure Source Result Collection Result Result Performin g Date/Time Date/Time Comment Site Group A Throat February MAIN LAB, [address] [facility] Streptococcus [address] [place] [address] Screen (BRETT) 6:42am Diagnostic Imaging Reports Report [...] Grashe y and Y views, done at [facility] satellite clinic. 04/09/08 MRI of right shoulder. [...] 13, 2010 8:52am Rosemary Tatum MD [facility] ULTRASOUND REPORT [...] have a copy on file here at [facility]? No Bernbae murray 2018 2:16pm Pt has a Living Will? No March 06, 0 10:42am Do we have a copy on file here at [facility]? No Bernabe murray 2018 2:16pm Pt has a Power of Shorer? No February 10:42am Do we have a copy on file here at [facility]? No Bernabe trevor 2018 2:16pm Chief Complaint and Reason for Visit Chief Complaint LAB/ JOINT PAINS Pain CHEST XR INJURY XR Lab XR JT PAIN IN RT SHD finger injury EVIDENTIARY LUCILLE HEADACHE CRISIS MENTAL HEALTH Encounters Encounter Location(s) Arrival/Admit Date Discharge/Depart Provi mandie(s) Date Departed [facility] Conve rsion Physician/Provi Medical 12:00am Medent mandie Office Center-CONV Misc Visit Comp Pain location Departed [facility] May 18, 1998 May 18, 1998 [facility] Emergency Medical 12:00am Center-Intermedia te Care Departed [facility] November 28, November 28, 1998 Julia Gentile Clinical Medical 1998 12:00am LOGGER Center-Outpatient Conversion Departed [facility] October 12, 2001 October 12, 2001 Vaughn Roca [facility]-DI 12:00am MD Jarquin Departed [facility] October 01, 2005 October 01, 2005 Ana Laura Ríos Clinical Medical 12:00am MD Jonathan Center-Outpatient Conversion Departed [facility] February 26, February 27, 2008 Sheryl Acevedo [facility]-DI 2007 12:00am [facility] Departed [facility] March 12, 2008 March 12, 2008 josy Emergency Medical 12:00am Center-Emergency Department Departed [facility] March 15, 2008 March 15, 2008 Bradford perez [facility]-DI 12:00am , [facility] Departed [facility] April 09, 2008 April 09, 2008 El birch [facility]-DI 12:00am , [facility] Departed [facility] June 25, 2009 June 25, 2009 Ana Laura Ríos Referred Medical 8:23pm MD Jonathan Center-Referred Lab Departed [facility] July 09, 2009 July 09, 2009 Ana Laura Ríos Clinical Medical 5:34pm 11:59pm MD Jonathan Center-Laboratory Registered [facility] March 06, Kenyon Munoz [facility]-DI 2009 10:41am APRIL [facility] [place] Registered [facility] March 12, 2010 Prescott Preet id , [facility]-DI 1:34pm APRIL [facility] Departed [facility] April 14, 2013 April 14, 2013 Con version Physician/Provi Medical 12:00am Medent mandie Office Center-[facility] Visit rn Assoc in Surgery Departed [facility] November 25, November 25, 2016 Sourav gaston PA-C Physician/Provi Medical 2016 12:00am Hansa mandie Office Center-[facility] Visit rn [facility] [place] Departed [facility] February 20, February 20, 2017 Juliana elias Physician/Pro[facility] Medical 2016 12:00am Medent mandie Office [facility] Visit rn [facility] [place] Departed [facility] February 20, February 20, 2017 Sr. Di no [facility]- 2016 8:36pm 8:37pm [facility] [place] Departed [facility] September 08, 2018 September 08, 2018 [facility] Emergency Medical 1:00pm 2:15pm Center-Emergency Department Departed [facility] January 13, 2019 January 13, 2019 nul l Emergency Medical 5:35pm 6:18pm Center-Emergency Department Departed [facility] February 07, 2019 February 07, 2019 nu l Emergency Medical 9:03pm 10:10pm Center-Emergency Department Departed [facility] February 08, 2019 February 08, 2019 nu l Emergency Medical 6:44am 1:14pm Center-Emergency Department Departed [facility] February 08, 2019 February 09, 2019 [...] Immunization Event Date Not Given Dose Number Flow Nurse Lot Number Vaccine Reason Informatio n Statement (VIS) Detail Tdap September 08, [id number] 2018 Mental Status Observation Response Date Recorded Comprehension Ability Unable to Comprehend February 08 7:46am Comprehension Ability Understands Concepts February 08 11:12pm Medical Equipment No Medical Equipment Information available Insurance Providers Guarantor YASMANY EUBANKS Address [address] [place] [address] Contact Info. Home Phone: Payer Policy Id Coverage Id Subscriber's Subscriber Id Effective E xpiration Name Date Date FEP SPENSER [id number] BALA EUBANKS [id number] CROSS (DO NOT USE) MEDICAID [id number] YASMANY EUBANKS [id number] [place] SELF PAY Self N/A [place] MEDICAID [id number] YASMANY EUBANKS [id number] (DO NOT USE) Plan of Treatment Future Tests Future scheduled test information is unavailable Pending Tests Pending diagnostic test information is unavailable Future Visits Future appointment information is unavailable Referrals to Other Providers Reason for Referral Start Provider Provider Contact Provider Address Referral Date Information Sana Lo Work Phone: Benjy Ortega MD [address] [place] [address] Sana Lo Work Phone: Benjy Ortega MD [address] [place] [address] Sana Lo Work Phone: Benjy Ortega MD [address] [place] [address] Sana Lo Work Phone: Benjy Ortega MD [address] [place] [address] Sana Lo Work Phone: Benjy Ortega MD [address] [place] [address] [place] [address] Future Procedures Future procedure information is unavailable [...] Oxygen saturation by Pulse 98 % 95-[facility] oximetry 12:27pm BP Systolic 110 mm[Hg] [...]
--- OUTSIDE RECORDS SUMMARY | 2021-08-16 23:28 | XMS_ITS | Continuity of Care Document ---
:1990 Author Organization [facility] Address [address] [place] [address] Phone Care Team Providers Name Role Phone [...] Group A Throat February MAIN LAB, [address] [facility] Streptococcus 2016 . [place] [address] Screen (BRETT) 6:42am Diagnostic Imaging Reports Report Dictated Date/Time Dictated By Status Radiology Report March 06, 2010 11:22am Carlos Castellanos MD completed [facility] RADIOLOGY REPORT PATIENT NAME: YASMANY EUBANKS [...] Grashe y and Y views, done at [facility] satellite clinic. 04/09/08 MRI of right shoulder. [...] 2010 8:52am Rosemary Tatum MD c ompleted [facility] ULTRASOUND REPORT PATIENT NAME: YSAMANY EUBANKS [id number] DATE OF : 1990 [...] dd: 03/13/10 0852 <Electronically signed by Rosemary omra MD in OV> 03/13/10 0856 Advance Directives Advance Directive Response Recorded Date/Time Does patient have an Advanced Directive? No March 06, 2010 10:42am Do we have a copy on file here at [facility]? No Bernabe murray 2018 2:16pm Pt has a Living Will? No March 06 0 10:42am Do we have a copy on file here at [facility]? No Bernabe murray 2018 2:16pm Pt has a Power of Skills Auditor? No February 10:42am Do we have a copy on file here at [facility]? No Bernabe murray 2018 2:16pm Chief Complaint and Reason for Visit Chief Complaint LAB/ JOINT PAINS Pain CHEST XR INJURY XR Lab XR JT PAIN IN RT SHD finger injury EVIDENTIARY LUCILLE Encounters Encounter Location(s) Arrival/Admit Date Discharge/Depart Provi mandie(s) Date Departed [facility] rsion Physician/Provi Medical 12:00am Medent mandie Office Center-CONV Misc Visit Comp Pain location Departed [facility] May 18, 1998 May 18, 1998 null Emergency Medical 12[facility] November 28, November 28, 1998 Julia Gentile Clinical Medical 1998 12:00am 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 Center-Outpatient Conversion Departed [facility] October 12, 2001 October 12, 2001 Vaughn Roca [facility] 12:00am , MD Jarquin Departed [facility] October 01, 2005 October 01, 2005 Ana Laura Virgen Clinical Medical 12:00am MD Jonathan Center-Outpatient Conversion Departed [facility] February 26, February 27, 2008 Sheryl Acevedo [facility] 2007 12:00am [facility] Departed [facility] March 12, 2008 March 12, 2008 null Emergency Medical 12:00am Center-Emergency Department Departed [facility] March 15, 2008 March 15, 2008 Bradford perez [facility] 12:00am , DO [facility] Departed [facility] April 09, 2008 April 09, 2008 El birch [facility] 12:00am , DO [facility] Departed [facility] June 25, 2009 June 25, 2009 Ana Laura Virgen Referred Medical 8:23pm MD Jonathan Center-Referred Lab Departed [facility] July 09, 2009 July 09, 2009 Ana Laura Virgen Clinical Medical 5:34pm 11:59pm MD Jonathan Center-Laboratory Registered [facility] March 06, Kenyon Munoz [facility] 2009 10:41am APRIL Walk In [place] Registered [facility] March 12, 2010 Kenyon mclaughlin , [facility] 1:34pm APRIL [facility] Departed [facility] April 14, 2013 April 14, 2013 Con mike Physician/Provi Medical 12:00am Medent mandie Office [facility] Visit rn Assoc in Surgery Departed [facility] November 25, November 25, 2016 Sourav gaston PA-C Physician/Provi Medical 2016 12:00am Hansa mandie Office [facility] Visit rn Urgent [place] Departed [facility] February 20, February 20, 2017 Juliana elias Physician/Provi Medical 2016 12:00am Medent mandie Office [facility] Visit rn Urgent [place] Departed [facility] February 20, February 20, 2017 Sr. Di no [facility]- 2016 8:36pm 8:37pm [facility] [place] Departed [facility] September 08, 2018 September 08, 2018 null Emergency Medical 1:00pm 2:15pm Center-Emergency Department Departed [facility] January 13, 2019 January 13, 2019 nuparam virgen Emergency Medical 5:35pm 6:18pm Center-Emergency Department Assessments No Assessments Information Available Functional Status Observation Response Date Recorded Living Situation Home September 08, 2018 2:14p m Goals Goals may be documented in an alternate section. Immunizations Immunization Event Date Not Given Dose Number Outreach And Education Social Worker Lot Number Vaccine Reason Informatio n Statement (VIS) Detail Tdap September 08 [id number] Mental Status No Mental Status Information Available Medical Equipment No Medical Equipment Information available Insurance Providers Guarantor YASMANY CHA Address [address] [facility] [address] Contact Info. Home Phone: Payer Policy Id Coverage Id Subscriber's Subscriber Id Effective E xpiration Name Date Date NOLA DUEÑAS [id number] BALA EUBANKS [id number] CROSS (DO NOT USE) MEDICAID [id number] YASMANY EUBANKS [id number] [place] SELF PAY Self N/A [place] MEDICA[place] [id number] YASMANY EUBANKS [id number] (DO NOT USE) Plan of Treatment Future Tests Future scheduled test information is unavailable Pending Tests Pending diagnostic test information is unavailable Future Visits Future appointment information is unavailable Referrals to Other Providers Reason for Referral Start Provider Provider Contact Provider Address Referral Date Information Sana Lo Work Phone: Benjy Ortega MD [address] [place] [address] Sana Lo Work Phone: Benjy Ortega MD [address] [place] [address] [place] [address] Future Procedures Future procedure information is unavailable [...] Oxygen saturation by Pulse 98 % 95-100 [facility] 2016 oximetry 12:27pm BP Systolic 110 mm[Hg] [...] Oxygen saturation by Pulse 98 % 95-100 [facility] 2016 3:38pm oximetry BP Systolic [...]
--- OUTSIDE RECORDS SUMMARY | 2021-08-16 23:28 | XMS_ITS | Continuity of Care Document ---
:1990 Author Organization [facility] Address [address] [place] [address] Care Team Providers Name Role Phone Sana Lo Primary Care Physician Allergies, Adverse Reactions, Alerts Allergen Type Severity Reaction Last Updated Verified Status gluten Adverse Reaction Unknown February 07, 2019 Y Active haloperidol Adverse Reaction Unknown February 07, 2019 Y Active paroxetine Adverse Reaction Unknown February 07, 2019 Y Active Medications Active Medications Medication Units Route Start Date Status Olanzapine MG February 07, 2019 Active Discontinued Medications Medication Units Route Start Date Discontinued Date Status Hoffman Carbonate ORAL February 07, 2019 February 07, [...] Date Status UTI (urinary tract infection) Active Acute bronchitis November 25, 2016 Auditory [...] Yes URINE SPECIMEN CULTURED Urine Test Negative Microbiology Results Procedure Source Result Collection Date/Time Result Date/Time Advance Directives Advance Directive Response Recorded Date/Time Do we have a copy on file here at [facility]? No J 2018 2:16pm Does patient have an Advanced Directive? No March 06, 2010 10:42am Pt has a Living Will? No March 06, 2010 10:42am Pt has a Power of Video Producer? No March 06, 2010 10:42am Chief Complaint and Reason for Visit Encounter Admit Date Chief Complaint Reason for Visit Departed Emergency February 07, 2019 9:03pm [facility] Discharge Instructions No known hospital discharge instructions. Hospital Discharge Medications Medication Dose Units Route Sig Qty Days Order Date Status In structions Olanzapine MG February 072018 Hoffman ORAL February 07, Discontinue d Carbonate 2018 Trazodone February 07, Discontin ued 2018 Benztropine February 07, Discont inued 2019 Lorazepam [...] 2:15pm Emergency [facility] Department 1:00pm Departed [facility] 20February 20, [facility] 8:[facility] 8:37pm Tony Departed [facility] February 20February 20, 2017 Kuldeep chin Physician/Pr Medical Group [facility] 2016 12:00am Jakub olivarez Office Visit Departed [facility] November 25November 25, 2016 Jaclyn Physician/Pr Medical Group [facility] 2016 12:00am Rhonda olivarez Office Visit Departed [facility] April 14April 14, 2013 Med ent, Physician/Pr Medical Group Assoc in 2013 12:00am Convers ion ovid Surgery Office Visit Registered Dmitri SHEEHAN March 12, Kenyon [facility] 2010 1:34pm [facility] Registered [facility] SISSY Walk [facility] 10:[facility]am [facility] July 09, 2009 July 09, 2009 11:59pm [facility] 5:34[facility] June 25June 25, 2009 [facility] 8:[facility] April 09[facility] 09, 2008 Syed marquis [facility] 2008 12:00am [facility] Departed [facility] DI Synergy March 15March 15, 2008 [facility] 2008 12:00am [facility] March 12, March 12, 2008 Emergency Medical Center Department 2008 12:00am Departed [facility] February 26February 27, 2008 [facility] 2007 12[facility]am [facility] October 01, 2005 October 01, 2005 [facility] 12:00am [facility] October 12, October 12, 2001 [facility] 2001 12:00am [facility] November 28November 28, 1998 [facility] Con[facility] 1998 12:00am [facility] Inter[facility] May 18May 18, 1998 Emergency [facility] Center Care 1998 12:00am [facility] CONV Misc Comp March 08March 08, 1899 Med ent, Physician/Pr Addiction Mgmt Pain location 1899 12:00am Con version ovider Office Visit Functional Status Query Response Date Recorded Comment Living Situation With Significant Other February 07, 2019 9:08pm Immunizations Immunization Name Date Given Type Tdap September 08, 2018 Administered Payers Payer Name Policy Type Covered Covered Relationship Subscriber Sub scriber Id Republican Republican Id FEP BLUE Commercial BALA [id number] Grandchild BALA EUBANKS [id number] CROSS (DO EUBANKS NOT USE) MEDICAID OF Medicaid YASMANY [id number] Self/Same as YASMANY [id number] [place] EUBANKS Patient EUBANKS SELF PAY Personal [place]ICA[place] Medicaid YASMANY [id number] Self/Same as YASMANY [id number] (DO NOT EUBANKS Patient EUBANKS USE) Plan of Care No Known Plan of Care Information Social History Query Response Date Recorded Comment Alcohol Use Yes February 07, 2019 9:13pm socially Smoking Status Current every day smoker February 07, 2019 9:13pm substance use type marijuana February 07, 2019 9:13pm Query Response Start Date Stop Date Smoking Status Current every day smoker Vital Signs Vital Reading Result Reference Range Collection Date/ Time Height 5 ft 5 in February 07, 2019 9:05pm Weight 108.862 kg February 07, 2019 9:05pm Temperature 98.0 F 97.6 F-99.6 F February 07, 2019 9:05pm Pulse 124 BPM 60-100 February 07, 2019 9:05pm Respiration 20 RPM 12-24 February 07, 2019 9:05pm Pulse Oximetry 100 % 95-100 February 07, 2019 9:05pm Blood Pressure Systolic 134 100-140 February 07, 2019 9:05pm Blood Pressure Diastolic 91 50-85 [facility] 2018 9:05pm Body Mass Index 44.6 February 20 7 3:38pm
--- OUTSIDE RECORDS SUMMARY | 2021-08-16 23:28 | XMS_ITS | Continuity of Care Document ---
:1990 Author Organization [facility] Address [address] [place] [address] Phone Care Team Providers Name Role Phone [...] Status gluten Adverse Reaction Unknown February 08, Yes Active 2018 haloperidol Adverse Reaction Unknown February 08, Yes 2018 paroxetine Adverse Reaction Unknown February 08, Yes Active 2018 Medications Medication Status Dose Units Route Sig Qty Days Start End Date Instr uctions Date Olanzapine Active MG TABLET February 07, 2019 9:08pm [place] Discontinue ORAL February Carbonate d 2018, 9:18pm 2018 10:14pm Trazodone Discontinue TABLET Februarymb er d 2018, 9:18pm 2018 10:14pm Benztropine Discontinue TABLET February mber d 2018, 9:18pm 2018 10:14pm Lorazepam Discontinue TABLET Februarymb er d 2018, 9:18pm 2018 10:14pm Fluoxetine Discontinue MG CAPSULE February mber d 2018, 9:18pm 2018 10:14pm Hydroxyzine Discontinue CAPSULE February ember Pamoate d 2018, 9:18pm 2018 10:14pm Melatonin Discontinue MG CAPSULE February ventura d 2018, 9:18pm 2018 10:14pm Melatonin Discontinue MG CAPSULE Februarym ventura d 2018, 9:18pm 2018 10:14pm Cariprazine Discontinue MG CAPSULE February ember d 2018, 9:18pm 2018 10:14pm Problems Active Problems Medical [...] Urine RBC 3-5 /hpf MAIN LAB, [address] [facility] [address] Urine RBC None seen MAIN LAB, [address] [place] [address] /[facility] [address] Urine WBC 10-20 /hpf MAIN LAB, [address] [place] [address] Urine WBC 20-40 /hpf MAIN LAB, [address] [place] [address] Urine 2+ /hpf MAIN LAB, [address] [place] [address] [place] [address] Epithelial Cells Urine 2+ /hpf MAIN LAB, [address] [place] [address] [place] [address] Epithelial Cells Urine 4+ /hpf NONE SEEN MAIN LAB, [address] [place] [address] [place] [address] Urine 3+ /hpf NONE SEEN MAIN LAB, [address] [place] [address] [place] [address] Urine Mucus Present MAIN LAB , [address] [place] [address] [place] [address] Urine Mucus Present MAIN LAB , [address] [place] [address] [place] [address] Urine Culture Yes URINE MAIN L AB, [address] [place] [address] [place] [address] CULTURED Urine Culture Yes URINE MAIN L AB, [address] [place] [address] [place] [address] CULTURED Urine Negative NEGATIVE MAIN LAB, [address] [place] [address] [place] [address] Test Urine Negative Cutoff:200 MAIN LAB, [address] [place] [address] Methadone ng/[place] [address] Screen Urine Negative Cutoff:200 MAIN LAB, [address] [place] [address] Methadone ng/[place] [address] Screen Microbiology Results Procedure Source Result Collection Result Result Performin g Date/Time Date/Time Comment Site Group A Throat February MAIN LAB, [address] [place] [address] [place] [address] Screen (BRETT) 6:42am Diagnostic Imaging Reports Report Dictated Date/Time Dictated By Status Radiology Report March 06, 2010 11:22am Carlos Castellanos MD completed [facility] RADIOLOGY REPORT PATIENT NAME: YASMANY EUBANKS [...] Grashe y and Y views, done at [facility] satellite clinic. 04/09/08 MRI of right shoulder. [...] 2010 8:52am Rosemary Tatum MD c ompleted [facility] ULTRASOUND REPORT PATIENT NAME: YASMANY EUBANKS [...] have a copy on file here at [facility]? No Bernabe murray 2018 2:16pm Pt has a Living Will? No March 06 0 10:42am Do we have a copy on file here at [facility]? No eBrnabe murray 2018 2:16pm Pt has a Power of Leveler? No February 10:42am Do we have a copy on file here at [facility]? No Bernabe murray 2018 2:16pm Chief Complaint and Reason for Visit Chief Complaint LAB/ JOINT PAINS Pain CHEST XR INJURY XR Lab XR JT PAIN IN RT SHD finger injury EVIDENTIARY LUCILLE HEADACHE CRISIS Encounters Encounter Location(s) Arrival/Admit Date Discharge/Depart Provi mandie(s) Date Departed [facility] Conve rsion Physician/Provi Medical 12:00am Medent mandie Office Center-CONV Misc Visit Comp Pain location Departed [facility] May 18, 1998 May 18, 1998 null Emergency Medical 12:00am Center-Intermedia te Care Departed [facility] November 28, November 28, 1998 Julia Gentile Clinical Medical 1998 12:00am 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 Center-Outpatient Conversion Departed [facility] October 12, 2001 October 12, 2001 Vaughn Roca [facility] 12:00am , MD Jarquin Departed [facility] October 01, 2005 October 01, 2005 Ana Laura Ríos Clinical Medical 12:00am MD Jonathan Center-Outpatient Conversion Departed [facility] February 26, February 27, 2008 Sheryl Acevedo [facility] 2007 12:00am [facility] Departed [facility] March 12, 2008 March 12, 2008 joys Emergency Medical 12:00am Center-Emergency Department Departed [facility] March 15, 2008 March 15, 2008 Bradford perez [facility] 12:00am , Synergy Departed [facility] April 09, 2008 April 09, 2008 El birch [facility] 12:00am , [facility] Departed [facility] June 25, 2009 June 25, 2009 Ana Laura Ríos Referred Medical 8:23pm MD Jonathan Center-Referred Lab Departed [facility] July 09, 2009 July 09, 2009 Ana Laura Ríos Clinical Medical 5:34pm 11:59pm MD Jonathan Center-Laboratory Registered [facility] March 06, Kenyon Munoz [facility] 2009 10:41am APRIL Walk In [place] Registered [facility] March 12, 2010 Kenyon mclaughlin [facility] 1:34pm APRIL [facility] Departed [facility] April 14, 2013 April 14, 2013 Con version Physician/Provi Medical 12:00am Medent mandie Office [facility] Visit rn Assoc in Surgery Departed [facility] November 25, November 25, 2016 Sourav gaston PA-C Physician/Provi Medical 2016 12:00am [facility] [place] Departed [facility] February 20February 20, 2017 Juliana elias Physician/Provi Medical 2016 12:00am Medent mandie Office [facility] Visit rn Urgent [place] Departed [facility] February 20February 20, 2017 Sr. Di no [facility] 2016 8:36pm 8:37pm [facility] [place] [facility] September 08, 2018 September 08, 2018 null Emergency Medical 1:00pm 2:15pm Center-Emergency Department Departed [facility] January 13, 2019 January 13, 2019 nu l Emergency Medical 5:35pm 6:18pm Center-Emergency Department Departed [facility] February 07, 2019 February 07, 2019 nu l Emergency Medical 9:03pm 10:10pm Center-Emergency Department Departed [facility] February 08, 2019 February 08, 2019 [facility] Emergency Medical 6:44am 1:14pm Center-Emergency Department Assessments No Assessments Information Available Functional Status Observation Response Date Recorded Living Situation Home February 08, 2019 1 :13pm Living Situation With Significant Other February 07 9:08pm Living Situation Home September 08, 2018 2:14p m Goals Goals may be documented in an alternate section. Immunizations Immunization Event Date Not Given Dose Number Business Objects Analyst Lot Number Vaccine Reason Informatio n Statement (VIS) Detail Tdap September 08 [id number] Mental Status Observation Response Date Recorded Comprehension Ability Unable to Comprehend February 08 9 7:46am Medical Equipment No Medical Equipment Information available Insurance Providers Guarantor YASMANY EUBANKS Address [address] [facility] [address] Contact Info. Home Phone: Payer Policy Id Coverage Id Subscriber's Subscriber Id Effective E xpiration Name Date Date FEP BLUE [id number] BALA EUBANKS [id number] [place] (DO NOT USE) MEDICAID OF [id number] YASMANY EUBANKS [id number] [place] SELF PAY Self N/A [place] MEDICAID [id number] YASMANY EUBANKS [id number] (DO NOT USE) Plan of Treatment Future Tests Future scheduled test information is unavailable Pending Tests Pending diagnostic test information is unavailable Future Visits Future appointment information is unavailable Referrals to Other Providers Reason for Referral Start Provider Provider Contact Provider Address Referral Date Information Sana Lo Work Phone: Benjy Ortega MD [address] [place] [address] [place] [address] Sana Lo Work Phone: Benjy Ortega MD [address] [place] [address] [place] [address] Sana Lo Work Phone: Benjy Ortega MD [address] [place] [address] [place] [address] Sana Lo Work Phone: Benjy Ortega MD [address] [place] [address] [place] [address] Future Procedures Future procedure information is unavailable Future Medications Future medication information is unavailable Patient Instructions Wound Care (DC) Quitting Smoking Social History Smoking Status Status Date of Observation Smokes tobacco daily (finding) February 08, 2019 8:45 am Observation Status Observation Response Date of Response Alcohol Use Yes February 08, 2019 8 :45am substance use type marijuana February 08, 2019 8 :45am Smoking Status Current every day smoker February 08 8:45am Assigned Sex Female Vital Signs Vital Reading Result Reference Range Collection Date/ Time Weight 119.74 kg November 25, 2016 12:27pm Body Temperature 98.9 [degF] 97.6-99.6 November 25, 2016 12:27pm Heart Rate 107 /min 60-100 November 25, 2016 12:27pm Respiratory rate 18 /min -November 25, 2016 12:27pm Oxygen saturation by Pulse 98 % 95-100 [facility]2016 oximetry 12:27pm BP Systolic 110 mm[Hg] 100-140 November 25, 2016 12:27pm BP Diastolic 70 mm[Hg] 50-85 November 25, 2016 12:27pm Height 64 [in_i] February 20, 2 017 3:38pm Weight 117.93 kg February 20 2 017 3:38pm Body Temperature 99.1 [degF] 97.6-99.6 February 20, 2017 3:38pm Heart Rate 107 /min 60-100 February 20 2 017 3:38pm Respiratory rate 16 /min -February 20, 2017 3:38pm Oxygen saturation by Pulse 98 % 95-100 [facility] 2016 3:38pm oximetry BP Systolic 104 mm[Hg] 100-140 February 20, 2 017 3:38pm BP Diastolic 68 mm[Hg] 50-85 February 20 2 017 3:38pm BMI (Body Mass Index) [...] February 07 9:05pm Weight 108.86 kg February 07, 9:05pm Body Temperature 98.0 [degF] 97.6-99.6 February 07, 2 019 9:05pm Heart Rate 124 /min 60-100 February 07, 9:05pm Respiratory rate 20 /min -February 07, 2 019 9:05pm Oxygen saturation by Pulse 100 % 95-100 [facility] 2018 9:05pm oximetry BP Systolic 134 mm[Hg] 100-140 February 07, 9:05pm BP Diastolic 91 mm[Hg] 50-85 February 07, 9:05pm Weight 115.66 kg February 08 6:47am Body Temperature 98.6 [degF] 97.6-99.6 February 08, 2 019 6:47am Heart Rate 102 /min 60-100 February 08 6:47am Respiratory rate 16 /min -February 08, 2 019 6:47am Oxygen saturation by Pulse 97 % 95-100 [facility] 2018 6:47am oximetry BP Systolic 123 mm[Hg] 100-140 February 08, 6:47am BP Diastolic 93 mm[Hg] 50-85 February 08, 6:47am
--- OUTSIDE RECORDS SUMMARY | 2021-08-16 23:28 | XMS_ITS | Continuity of Care Document ---
:[address] [facility] Address [address] [place] [address] Care Team Providers Name Role Phone PCP, [...] 2010 10:42am Pt has a Power of Cloth Sander? No March 06, 2010 10:42am Hospital Discharge Instructions No known hospital discharge instructions. Encounters Encounter Facility Location Admit/Visit Discharge/Departure Atte nding Date Date Provider Departed [facility] February 20, February 20, 2017 Jayda foy [facility] Care 2017 8:36pm 8:37pm Tony Grossman Functional Status No known functional status. Immunizations No known immunizations. Payers Payer Name Policy Type Covered Covered Relationship Subscriber Sub scriber Id Alliance Party Alliance Party Id FEP BLUE Commercial BALA [id number] Grandchild BALA EUBANKS [id number] CROSS (DO EUBANKS NOT USE) SELF PAY Personal [place] MEDICAID Medicaid YASMANY [id number] Self/Same as YASMANY [id number] (DO NOT CHA Patient EUBANKS USE) Plan of Care No Known Plan of Care Information Social History No known social history. Vital Signs No known vital signs results.
--- OUTSIDE RECORDS SUMMARY | 2021-08-16 23:28 | XMS_ITS | Continuity of Care Document ---
:[address] [facility] Address [address] [place] [address] Phone Care Team Providers Name Role Phone [...] Active MG TABLET February 07, 2019 9:08pm Dinuba Discontinue ORAL February Carbonate d 2018, 9:18pm [...] Urine RBC 3-5 /hpf MAIN LAB, [address] [facility] [address] Urine RBC None seen MAIN LAB, [address] [place] [address] /[facility] [address] Urine WBC 10-20 /hpf MAIN LAB, [address] [place] [address] Urine WBC 20-40 /hpf MAIN LAB, [address] [place] [address] Urine 2+ /hpf MAIN LAB, [address] [place] [address] [place] [address] Epithelial Cells Urine 2+ /hpf MAIN LAB, [address] [place] [address] [place] [address] Epithelial Cells Urine 4+ /hpf NONE SEEN MAIN LAB, [address] [place] [address] [place] [address] Urine 3+ /hpf NONE SEEN MAIN LAB, [address] [place] [address] [place] [address] Urine Mucus Present MAIN LAB , [address] [place] [address] [place] [address] Urine Mucus Present MAIN LAB , [address] [place] [address] [place] [address] Urine Culture Yes URINE MAIN L AB, [address] [place] [address] [place] [address] CULTURED Urine Culture Yes URINE MAIN L AB, [address] [place] [address] [place] [address] CULTURED Urine Negative NEGATIVE MAIN LAB, [address] [place] [address] [place] [address] Test Urine Negative Cutoff:200 MAIN LAB, [address] [place] [address] Methadone ng/[place] [address] Screen Urine Negative Cutoff:200 MAIN LAB, [address] [place] [address] Methadone ng/[place] [address] Screen Microbiology Results Procedure Source Result Collection Result Result Performin g Date/Time Date/Time Comment Site Group A Throat February MAIN LAB, [address] [place] [address] [place] [address] Screen (BRETT) 6:42am Diagnostic Imaging Reports Report Dictated Date/Time Dictated By Status Radiology Report March 06, 2010 11:22am Carlos Castellanos MD completed [facility] RADIOLOGY REPORT PATIENT NAME: YASMANY EUBANKS [...] Grashe y and Y views, done at [facility] satellite clinic. 04/09/08 MRI of right shoulder. [...] 2010 8:52am Rosemary Tatum MD c ompleted [facility] ULTRASOUND REPORT PATIENT NAME: YASMANY EUBANKS [...] have a copy on file here at [facility]? No Bernabe murray 2018 2:16pm Pt has a Living Will? No March 06 0 10:42am Do we have a copy on file here at [facility]? No Bernabe murray 2018 2:16pm Pt has a Power of Manufacturing Development Engineer? No February 10:42am Do we have a copy on file here at [facility]? No Bernabe murray 2018 2:16pm Chief Complaint and Reason for Visit Chief Complaint LAB/ JOINT PAINS Pain CHEST XR INJURY XR Lab XR JT PAIN IN RT SHD finger injury EVIDENTIARY LUCILLE HEADACHE CRISIS Encounters Encounter Location(s) Arrival/Admit Date Discharge/Depart Provi mandie(s) Date Departed [facility] Conve rsion Physician/Provi Medical 12:00am Medent mandie Office Center-CONV Misc Visit Comp Pain location Departed [facility] May 18, 1998 May 18, 1998 null Emergency Medical 12:00am Center-Intermedia te Care Departed [facility] November 28, November 28, 1998 Julia Gentile Clinical Medical 1998 12:00am 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 Center-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 Conversion Departed [facility] October 12, 2001 October 12, 2001 Vaughn Roca [facility] 12:00am , MD Jarquin Departed [facility] October 01, 2005 October 01, 2005 Ana Laura Ríos Clinical Medical 12:00am MD Jonathan Center-Outpatient Conversion Departed [facility] February 26, February 27, 2008 Sheryl Acevedo [facility] 2007 12:00am [facility] Departed [facility] March 12, 2008 March 12, 2008 josy Emergency Medical 12:00am Center-Emergency Department Departed [facility] March 15, 2008 March 15, 2008 Bradford perez [facility] 12:00am , Synergy Departed [facility] April 09, 2008 April 09, 2008 El birch [facility] 12:00am , [facility] Departed [facility] June 25, 2009 June 25, 2009 Ana Laura Ríos Referred Medical 8:23pm MD Jonathan Center-Referred Lab Departed [facility] July 09, 2009 July 09, 2009 Ana Laura Ríos Clinical Medical 5:34pm 11:59pm MD Jonathan Center-Laboratory Registered [facility] March 06, Kenyon Munoz [facility] 2009 10:41am APRIL [facility] [place] Registered [facility] March 12, 2010 Kenyon mclaughlin [facility] 1:34pm APRIL [facility] Departed [facility] April 14, 2013 April 14, 2013 Con version Physician/Provi Medical 12:00am Medent mandie Office [facility] Visit rn Assoc in Surgery Departed [facility] November 25, November 25, 2016 Sourav gaston PA-C Physician/Provi Medical 2016 12:00am [facility] [place] Departed [facility] February 20February 20, 2017 Juliana elias Physician/Provi Medical 2016 12:00am Medent mandie Office [facility] Visit rn [facility] [place] Departed [facility] February 20February 20, 2017 Sr. Di no [facility] 2016 8:36pm 8:37pm [facility] September 08, 2018 September 08, 2018 null Emergency Medical 1:00pm 2:15pm Center-Emergency Department Departed [facility] January 13, 2019 January 13, 2019 nu l Emergency Medical 5:35pm 6:18pm Center-Emergency Department Departed [facility] February 07, 2019 February 07, 2019 nu l Emergency Medical 9:03pm 10:10pm Center-Emergency Department Departed [facility] February 08, 2019 February 08, 2019 [facility] Emergency Medical 6:44am 1:14pm Center-Emergency Department Assessments No Assessments Information Available Functional Status Observation Response Date Recorded Living Situation Home February 08, 2019 1 :13pm Living Situation With Significant Other February 07 9:08pm Living Situation Home September 08, 2018 2:14p m Goals Goals may be documented in an alternate section. Immunizations Immunization Event Date Not Given Dose Number Loss Control Engineer Lot Number Vaccine Reason Informatio n Statement (VIS) Detail Tdap September 08 [id number] Mental Status Observation Response Date Recorded Comprehension Ability Unable to Comprehend February 08 9 7:46am Medical Equipment No Medical Equipment Information available Insurance Providers Guarantor YASMANY EUBANKS Address [address] [facility] [address] Contact Info. Home Phone: Payer Policy Id Coverage Id Subscriber's Subscriber Id Effective E xpiration Name Date Date FEP BLUE [id number] BALA EUBANKS [id number] [place] (DO NOT USE) MEDICAID OF [id number] YASMANY EUBANKS [id number] [place] SELF PAY Self N/A [place] MEDICAID [id number] YASMANY EUBANKS [id number] (DO NOT USE) Plan of Treatment Future Tests Future scheduled test information is unavailable Pending Tests Pending diagnostic test information is unavailable Future Visits Future appointment information is unavailable Referrals to Other Providers Reason for Referral Start Provider Provider Contact Provider Address Referral Date Information Sana Lo Work Phone: Benjy Ortega MD [address] [place] [address] [place] [address] Sana Lo Work Phone: Benjy Ortega MD [address] [place] [address] [place] [address] Sana oL Work Phone: Benjy Ortega MD [address] [place] [address] [place] [address] Sana Lo Work Phone: Benjy Ortega MD [address] [place] [address] [place] [address] Future Procedures Future procedure information is unavailable [...] Oxygen saturation by Pulse 98 % 95-100 [facility]2016 oximetry 12:27pm BP Systolic 110 mm[Hg] [...] Oxygen saturation by Pulse 98 % 95-100 [facility] 2016 3:38pm oximetry BP Systolic [...]
--- OUTSIDE RECORDS SUMMARY | 2021-08-16 23:28 | XMS_ITS | Continuity of Care Document ---
:1990 Author Organization [facility] Address [address] [place] [address] Care Team Providers Name Role Phone Sana [...] MG FebruaryMarch 01, Disco ntinue 2018 d [place] ORAL FebruaryFebruary 07, Discontin ue Carbonate 2018 [...] 6:08am Platelet Count March 01, 342 1000/mm3 426-105 9940 6:08am Mean Platelet Volume March 01, 9.0 [...] 9:45pm Sodium Level March 01, 138 mmol/L 198-698 4044 6:08am Potassium Level March 01, 3.8 mmol/L [...] Catch Escherichia Coli February 07, 2019 De[facility] 2018 10:19pm 7:29am Urine Culture Ur,Clean Catch Escherichia Coli February 08, 2019 [facility] 2018 9:10am 7:27am Chief Complaint and Reason [...] 2018 Olanzapine MG Peter Discontinue d 2018 [place] ORAL February Discontinued Carbonate 2018 Trazodone February [...] Discharge/Departure Atte nding Date Date Provider Departed [facility] Emergency March 10March 10, 2019 [facility] 2019 3:33am 4:37am Departed [facility] Emergency March 01March 01, 2019 [facility] Department 2018 5:15am 6:24pm Departed [facility] Emergency February 08February 09, 2019 [facility] Department 2018 10:48pm 10:17am Departed [facility] Emergency February 08February 08, 2019 [facility] Department 2018 6:44am 1:14pm Departed [facility] Emergency February 07February 07, 2019 [facility] Department 2018 9:03pm 10:10pm Departed [facility] Emergency January 13January 13, 2019 Emergency [facility] Department 2018 5:35pm 6:18pm Departed [facility] Emergency September 08, 2018 September 08, [...] Constitution Party Id FEP BLUE Commercial BALA [id number] Grandchild BALA EUBANKS [id number] [place]OSS (DO EUBANKS NOT USE) MEDICAID OF Medicaid YASMANY [id number] Self/Same as YASMANY [id number] [place] EUBANKS Patient EUBANKS SELF PAY Personal [place] MEDICA[place] Medicaid YASMANY [id number] Self/Same as YASMANY [id number] (DO NOT EUBANKS Patient EUBANKS USE) [...]
--- OUTSIDE RECORDS SUMMARY | 2021-08-16 23:29 | XMS_ITS | Encounter Summary ---
:1990 Author Organization [facility] Address [address] [place] [address] Care Team Providers Name Role Phone Sana Muhammad MD Primary Care Provider Reason for Visit Reason Comments Mental Health Condition has been alot of mental heal th issues Encounter Details Date Type Department Care Team Description 03/17/2019 Office Visit [facility] Ifeanyi Richmond, Epi sode of recurrent Family Medicine - major depressive [place] [address] disorder, unspecified [address] [place] [address] [place], [place] severity ([facility]) [phone] [id number] (Primary Dx) Social History Tobacco Use Types Packs/Day Years Used Date Current Every Day Smoker 1 10 Smokeless Tobacco: Never Used Tobacco Cessation: Ready to Quit: No; Co unseling Given: Yes Alcohol Use Standard Drinks/Week Comments Yes 3 (1 standard drink = 0.6 oz pure alcoho l) occ Sex Assigned at Date Recorded Not on file documented as of this encounter Last Filed Vital Signs Vital Sign Reading Time Taken Comments Blood Pressure 130/76 03/17/2019 1603 EST Pulse 88 03/17/2019 1603 EST Temperature - - Respiratory Rate - - Oxygen Saturation - - Inhaled Oxygen Concentration - - Weight 117.9 kg (260 lb) 03/17/2019 1603 EST Height 167.7 cm (5' 6.02) 03/17/2019 1603 EST Body Mass Index 41.93 03/17/2019 1603 EST documented in this encounter Functional Status Functional Status Response Date of Assessment Are you deaf or do you have serious difficulty hearing? No 11/15/2018 Are you blind or do you have serious difficulty seeing, No 11/15/2018 even when wearing glasses? Do you have serious difficulty walking or climbing No 11/15/2018 stairs? (5 years old or older) Do you have difficulty dressing or bathing? (5 years old No 11/15/2018 or older) Because of a physical, mental, or emotional condition, do No 11/15/2018 you have difficulty doing errands alone such as visiting a doctor's office or shopping? (15 years old or older) Cognitive Status Response Date of Assessment Because of a physical, mental, or emotional condition, do No 11/15/2018 you have serious difficulty concentrating, remembering, or making decisions? (5 years old or older) documented as of this encounter Patient Instructions Patient InstructionsIfeanyi Richmond MD - 03/17/2019 16:00 EST - If you are experiencing a crisis, please call [facility]: [phone]. - [facility] is a 24-hour, 1-gwk-fjg-week emergency service for anyone in [facility] experiencing a crisis. - There is no wrong reason to call. Your reason for calling may be as simple as requesting an appointment with a mental health specialist or more urgent, such as getting help for a loved one who is experiencing serious emotional distress. People may call us because they are ?? Experiencing overwhelming emotions. ?? Thinking of suicide. ?? Worried about safety. ?? Hearing voices. - Consider Assist stay for safety and stabilization in future crisis. documented in this encounter Ordered Prescriptions Prescription Sig Dispensed Refills Start Date End Date mirtazapine (REMERON) 7.5 Take 1 Tab by mouth 14 Tab 0 0 03/17/2019 03/31/2019 mg tabletIndications: at bedtime for 14 Episode of recurrent days. If no side major depressive effects after 2-3 disorder, unspecified days, increase to 2 depression episode tabs at bedtime for severity (HCC) 15mg daily dose. documented in this encounter Progress Notes Rogerio Angel MD - 03/17/2019 1600 EST Attestation for patient not seen by attending: I discussed the patient with the resident/fellow at the time of the visit and agree with the findings and the plan of care documented in the resident's/fellow's note. Rogerio Angel MD Family Medicine Attending 03/18/2019 8:37 Ifeanyi Pierce MD - 03/17/2019 1600 EST Subjective: Patient ID: Mary Grace Harris is an 28 y.o. female. Chief Complaint Patient presents with ??? Mental Health Condition has been alot of mental health issues HPI Mary Grace Harris is a 28 year old woman with a history of unspecified psychosis and two prior psychiatric hospitalizations who presents to clinic with increased distress related to worsening auditory/visual disturbances and passive SI. She presented to [facility] ED twice in the past week with similar symptoms, at which times she was evaluated by [facility], whose impressions were that she was close to baseline symptomatically. Today, Mary Grace states that she feels like she needs to be in the hospital to rest and get my head straight, and that being at home has become impossible. She relates that her psychotic symptoms have manifested since September, when her boyfriend moved into her home, but now the State won't let me kick him out. She states that she remains surprised that her suicide attempts by medication overdose/alcohol intoxication a couple months ago did not result in , and that she feels like she will ,either at my hand or my neighbor's. She denies any plan at this time, and states that she would call Crisis or go to the ED if she felt like she was at imminent risk of harm to herself. Denies accessto firearms. However, she states that she is in need of better treatment, as risperidone is doing nothing. She intermittently discusses large snakes, estrada closing in on her, and her head being invaded by her neighbors. Patient Active Problem List Diagnosis ??? Depression ??? Celiac disease ??? Anxiety ??? Chronic pain syndrome ??? Tobacco dependence syndrome ??? Obesity, Class III, BMI 40-49.9 (morbid obesity) ([facility]) ??? Marijuana use, continuous ??? Psychosis ([facility]) ??? Psychosocial distress ??? Adjustment disorder with anxious mood ??? GDM (gestational diabetes mellitus) ??? Polyhydramnios ??? Torticollis ??? Urinary tract infectious disease ??? Auditory hallucinations ??? Visual hallucinations ??? Fibromyalgia ??? Sciatica ??? Drug-induced constipation Past Medical History: Diagnosis Date ??? Asthma ??? Asthma, exercise induced ??? Fibromyalgia ??? GDM (gestational diabetes mellitus) 07/22/2012 ??? Laceration 12/04/06 left 5th digit tendon,nerve laceration ??? Myofascial pain right shoulder and neck myofascial pain ??? 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 Sciatica ??? Scoliosis ??? Tendinitis ??? Torticollis Current Outpatient Medications on File Prior to Visit Medication Sig Dispense Refill ??? acetaminophen (TYLENOL) 500 mg tablet Take 2 Tabs by mouth 3 times daily as needed for Pain. 50 Tab 0 ??? calcium carbonate (TUMS) 200 mg calcium (500 mg) tablet,chewable Take 1-2 Tabs by mouth 4 times daily as needed for Heartburn or Indigestion. 30 Tab 2 ??? DOK 100 mg capsule Take 1 Dose by mouth daily. 0 ??? levonorgestrel (PLAN B ONE-STEP) 1.5 mg tablet Take 1 Tab by mouth once for 1 dose. (Patient nottaking: Reported on 02/24/2019) 1 Tab 0 ??? MEDICAL MARIJUANA Inhale 1 Dose as directed daily. ??? melatonin 5 mg tablet Take 1 Tab by mouth at bedtime as needed for Other (Sleep). 30 Tab 3 ??? Multivitamins with Minerals tablet tablet Take 1 Tab by mouth daily. ??? naproxen (EC NAPROSYN) 500 mg EC tablet Take 500 mg by mouth 2 times daily as needed. 0 ??? nitrofurantoin, macrocrystal-monohydrate, (MACROBID) 100 mg capsule Take 100 mg by mouth 2 timesdaily. 0 ??? risperiDONE (RISPERDAL) 2 mg tablet Take 2 mg by mouth daily. ??? TAB-A-AMANUEL per tablet Take 1 Tab by mouth every morning. 0 ??? UNABLE TO FIND Take 2 mg by mouth daily. Med Name: Risperidone 2 mg One tablet daily No current facility-administered medications on file prior to visit. Allergies Allergen Reactions ??? Gluten Protein ??? Haldol [Haloperidol Lactate] paralysis ??? Paxil [Paroxetine Hcl] Nausea And Vomiting Social Social History Tobacco Use ??? Smoking status: Current Every Day Smoker Packs/day: 1.00 Years: 10.00 Pack years: 10.00 ??? Smokeless tobacco: Never Used Substance Use Topics ??? Alcohol use: Yes Alcohol/week: 3.0 standard drinks Types: 3 Cans of beer per week Comment: occ ??? Drug use: Yes Types: Marijuana Review of Systems Psychiatric/Behavioral: Positive for depression, hallucinations and suicidal ideas. The patient is nervous/anxious and has insomnia. - See HPI Objective: BP 130/76 Pulse 88 Ht 167.7 cm (66.02) Wt (!) 117.9 kg (260 lb) BMI 41.93 kg/m?? Physical Exam Psychiatric: Her mood appears anxious. Her affect is labile. She exhibits a depressed mood. She expresses suicidal ideation. She exhibits disordered thought content. Labile affect, occasionally dysphoric and tearful. Hopelessness, with thoughts of not wanting to be alive and fears that her neighbor is trying to kill her. Denies suicidal intent or contemplating means or plans. Endorses hallucinations in multiple sensory modalities. Persecutory delusions. Insight and judgment are poor. Assessment: Mary Grace Harris is a 28 year old woman with a history of unspecified psychosis who presents to clinicwith passive SI and worsening visual/auditory disturbances. Diagnosis remains uncertain, with differential including schizophrenia, schizoaffective disorder, substance-induced psychosis, and schizotypal disorder. She has been on several different antipsychotic medications over the past few months. Encouraged therapeutic trial of risperidone for 4-6 weeks, and discussed dose range of 2-6mg daily. I state that she is currently likely at the lower end of the therapeutic range due to prior hyperprolactinemia side effect, and she states that she would personally find galactorrhea tolerable if her psychotic symptoms improved. Outpatient psychiatrist Dr. 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 Given her prominent insomnia and depressed affect, will provide her with this medication once until she follows up with Dr. Jiménez. Patient was provided with information for Crisis hotline and counseled to return to [facility] ED ifshe develops active suicidal ideation. We discussed another stay at [facility] as a potential option for safety and stabilization if her symptoms worsen. Plan: Mary Grace was seen today for mental health condition. Diagnoses and all orders for this visit: Episode of recurrent major depressive disorder, unspecified depression episode severity (HCC-CMS) - mirtazapine (REMERON) 7.5 mg tablet; Take 1 Tab by mouth at bedtime for 14 days. If no side effects after 2-3 days, increase to 2 tabs at bedtime for 15mg daily dose. Other orders - risperiDONE (RISPERDAL) 2 mg tablet; Take 2 mg by mouth daily. Return if symptoms worsen or fail to improve. documented in this encounter Plan of Treatment Not on filedocumented as of this encounter Goals Goal Patient Goal Associated Recent Patient-Stated? 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[place], dependence Vania syndrome Healthy General On track No Diaz Palencia (07/14/2018 Diana 15:30 EDT) Note: Healthy Eating Goal: Carry a healthy sna ck for when I'm hungry. The patient's confidence level, sources of support and barriers to change were assessed. Pertinent information is documented in the visit encounter. Counseling was provided to assess readiness, confidence and/or barriers to self-care. To learn more about your health please v isit: [email or web address]/Pages/Wellness-Resources/Oezgqyxek-Mzedfs-Ja documented as of this encounter Visit Diagnoses Diagnosis Episode of recurrent major depressive di sorder, unspecified depression episode severity (HCC) - Primary documented in this encounter Discontinued Medications Medication Sig Discontinue Reason Start Date End Date OLANZapine (ZYPREXA) 20 Take 20 mg by Patient Stopped Taking 03/17/2019 mg tablet mouth at bedtime. mirtazapine (REMERON) Take 1 Tab by Reorder 02/09/201903/17 7.5 mg mouth daily. tabletIndications: Episode of recurrent major depressive disorder, unspecified depression episode severity (HCC) LORazepam (ATIVAN) 1 mg Take 1 Tab by Patient Stopped Taking 201803/17/2019 tablet mouth at bedtime as needed for Sleep. Daily Max: 1 mg melatonin 5 mg Take 5 mg by mouth Patient Stopped Taking 12/02/2018 03/17/2019 tablet,disintegrating at bedtime. documented as of this encounter Historical Medications This list may reflect changes made after this encounter. Medication Sig Dispensed Refills Start Date End Date risperiDONE (RISPERDAL) 2 Take 2 mg by mouth 0 mg tablet daily. added in this encounter Care Teams Brake Tester Relationship Specialty Start Date End Date Sana Muhammad MD PCP - General 12/02/16 08/05/20 documented as of this encounter
--- OUTSIDE RECORDS SUMMARY | 2021-08-16 23:29 | XMS_ITS | Encounter Summary ---
:1990 Author Organization [facility] Address [address] [place] [address] Care Team Providers Name Role Phone Sana Muhammad MD Primary Care Provider Encounter Details Date Type Department Care Team Description 10/14/2019 Travel Social History Tobacco Use Types Packs/Day Years Used Date Current Every Day Smoker 1 10 Smokeless Tobacco: Never Used Alcohol Use Standard Drinks/Week Comments Yes 0 (1 standard drink = 0.6 oz pure alcoho l) unable to assess Alcohol Habits Answer Date Recorded How often do you have a drink containing alcohol? Not asked How many drinks containing alcohol do you have on a Not aske d typical day when you are drinking? How often do you have six or more drinks on one Not asked occasion? Comment: unable to assess 10/14/2019 Sex Assigned at Date Recorded Not on file documented as of this encounter Functional Status Functional Status Response [...] or older) documented as of this encounter Plan of Treatment Not on filedocumented as of this encounter Goals Goal Patient Goal Associated Recent Patient-Stated? 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[place], dependence Vania syndrome Healthy General On track [...] more about your health please v isit: [email or web address]/medcenter/Pages/Wellness-Resources/Stgdcphdf-Gohbxb-Cp documented as of this encounter Visit Diagnoses Not on filedocumented in this encounter Care Teams Dock Clerk Relationship Specialty Start Date End Date Sana Muhammad MD PCP - General 12/02/16 08/05/20 documented as of this encounter
--- OUTSIDE RECORDS SUMMARY | 2021-08-16 23:29 | XMS_ITS | Clinical Summary ---
:1990 Author Organization [facility] Address [address] [place] [address] Care Team Providers Name Role Phone Jim Morales MD Primary Care Provider Allergies Active Allergy Reactions Severity Noted Date Comments Haloperidol Lactate 03/22/2012 paralysi s Paroxetine Hcl Nausea And Vomiting 04/11/2010 Medications Medication Sig Dispensed Refills Start Date End Date Status Multivitamins with Take 1 Tab by mouth 0 11/30/2018 Active Minerals tablet daily. tabletIndications: mineral deficiency prevention, vitamin deficiency prevention melatonin 5 mg Take 1 Tab by mouth 30 Tab 3 12/08/2018 Active tabletIndications: at bedtime as insomnia needed for Other (Sleep). UNABLE TO FIND Take 2 mg by mouth 0 Active daily. Med Name: Risperidone 2 mg One tablet daily MEDICAL Inhale 1 Dose as 0 02/08/2019 Ac tive MARIJUANAIndications: directed daily. Anxiety DOK 100 mg Take 1 Dose by 0 12/20/2018 Act desirae capsuleIndications: mouth daily. Drug-induced constipation TAB-A-AMANUEL per tablet Take 1 Tab by mouth 0 12/22/19 19 Active every morning. naproxen (EC Take 500 mg by 0 12/21/2018 A ctive NAPROSYN) 500 mg EC mouth 2 times daily tablet as needed. nitrofurantoin, Take 100 mg by 0 02/13/2019 Active macrocrystal-monohydr mouth 2 times ate, (MACROBID) 100 daily. mg capsuleIndications: Acute cystitis without hematuria acetaminophen Take 2 Tabs by 50 Tab 0 02/24/2019 Active (TYLENOL) 500 mg mouth 3 times daily tabletIndications: as needed for Pain. pain calcium carbonate Take 1-2 Tabs by 30 Tab 2 02/24/2019 Active (TUMS) 200 mg calcium mouth 4 times daily (500 mg) as needed for tablet,chewableIndica Heartburn or tions: dyspepsia, Indigestion. heartburn risperiDONE Take 2 mg by mouth 0 Active (RISPERDAL) 2 mg daily. tablet Active Problems Patient Care Coordination Note Formatting of this note might be differe nt from the original. FYI: PATIENT IS A [facility] [employer]. She has a psychiatric medical provider under the guidance of Dr. Babb. She has been reaching out to various providers for numerous refills. Please do no t provide psychiatric medication managem ent/refills/prescriptions unless she is no longer a [employer] client. Patient has given permission for the [facility] to verbally discuss the following information with Bing Harris who has the following relationship to the patient: grandmother: Scheduling/Appt/Billing/Payment Informat ion (does not include clinical information unless specifically indicated with separate option) Medical Information including symptoms, diagnosis, medications, test results and treatment plan (does not include Mental Health unless specifically indicated with separate option) Mental Health (Behavioral,Psychiatric,Ch emical Dependency) health information, including my symptoms, diagnosis, medications and treatment plan Permission remains in effect until the p atient elects to revoke it. Patient has given permission for the [facility] to verbally discuss the following information with Napoleon Gasparons who has the following relationship to the patient: Sibling: Scheduling/Appt/Billing/Payment Informat ion (does not include clinical information unless specifically indicated with separate option) Medical Information including symptoms, diagnosis, medications, test results and treatment plan (does not include Mental Health unless specifically indicated with separate option) Mental Health (Behavioral,Psychiatric,Ch emical Dependency) health information, including my symptoms, diagnosis, medications and treatment plan Permission remains in effect until the p atient elects to revoke it. Problem Noted Date Adjustment disorder with anxious mood 02/21/2019 Torticollis 02/21/2019 Urinary tract infectious disease 02/21/2019 Auditory hallucinations 02/21/2019 Visual hallucinations 02/21/2019 Fibromyalgia 02/21/2019 Sciatica 02/21/2019 Drug-induced constipation 02/21/2019 Psychosocial distress 12/09/2018 Overview: Difficulty with finances and housing. In the process of intake to [employer] services with [facility]. Noted to malinger for housing/placement on multiple ED visits 12/06 to 12/09. 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 I spoke to Sheryl her child support case officer 02/2019. She looked up the medications in her file and currently she is only prescribed mirtazapine and olanzapine. The y recommend a single psychiatric prescri [place] as she has a tendency to go to multiple providers and get multiple similar prescriptions. ?? The EPIC record (including medical recon ciliation from [facility]) shows small numbers of pills for prescriptions of multiple medications including: ?? risperidone ?? sertraline ?? trazodone ?? Ziprasidone ?? Hydroxyzine ?? Fluoxetine ?? lithium ?? duloxetine and ?? Benztropine ?? She was advised not to take any of these medications 02/2019 and follow up with [facility] Marijuana use, continuous 09/22/2018 Obesity, Class III, BMI 40-49.9 (morbid obesity) 09/19 Polyhydramnios 07/08/2012 Tobacco dependence syndrome 04/24/2012 Chronic pain syndrome 03/22/2012 Overview: Following football injury 2004. Depression 04/10/2009 Celiac disease 04/10/2009 Anxiety 04/10/2009 Resolved Problems Problem Noted Date Resolved Date Psychosis ([facility]) 02/21/2019 02/21/2019 GDM (gestational diabetes mellitus) 07/22/2012 05/0 08/2021 Supervision of normal first 04/24/2012 Overview: - Dating: EDC BERE 07/27/2012 by 2nd vitaly keller US - PN labs: MBT O pos / Ab - / Rubella I/ Varicella neg / HepB neg / HIV neg / RPR NR - Pap: neg - G/C: neg/neg - Urine cx: ? - Screening: CF neg - Flu vaccine: 03/22/2012 - 1hr glucola: 123, 93 - GBS: ? - ! - Contraception - ? Strain of neck muscle 04/11/2010 04/24/2012 Spells 10/17/2009 04/24/2012 Overview: Evaluation of spells consisting of visua l disturbances with significant associated anxiety symptoms Immunizations Name Administration Dates Next Due Influenza Vaccine =>3yo Split 03/22/2012 Preservative Free IM Influenza Vaccine Quad (AFLURIA) PF 01/17/2016 0.5 ml IM (3 yrs+) Pneumococcal Polysaccharide (PPSV23) 06/10/2017 Vaccine (PNEUMOVAX-23) =>2YO SQ/IM Tdap Vaccine =>7YO IM 05/18/2012, 04/24/2012 (Deferred: To Be Administered in the Future) Surgical History Surgery Date Site/Laterality Comments FINGER SURGERY left WISDOM TOOTH EXTRACTION Medical History Medical History Date Comments Tendinitis Torticollis Laceration 12/04/2006 left 5th digit tendo n,nerve laceration Myofascial pain right shoulder and n mayra myofascial pain Fibromyalgia Scoliosis Asthma Asthma, exercise induced Sciatica Psychosis (HCC-CMS) ([facility]) unspecified (v s. schizotypal personality disorder ) GDM (gestational diabetes mellitus) 07/22/2012 Family History Medical History Relation Name Comments Diabetes Maternal Grandfather Schizophrenia Mother Bipolar Disorder Other uncle No Known Son Relation Name Status Comments Father Other Maternal Grandfather Mother Other Son Alive Social History Tobacco Use Types Packs/Day Years Used Date Current Every Day Smoker 1 10 Smokeless Tobacco: Never Used Tobacco Cessation: Ready to Quit: No; Co unseling Given: Yes Alcohol Use Standard Drinks/Week Comments Yes 0 [...] Assigned at Date Recorded Not on file Obstetrics History Grav Para Term Pre Abrt (TAB) (SAB) (Ect) Mult Lvng Comments 1 0 0 0 0 0 0 0 0 0 Date Outcome GA Total Labor/2nd/3rd Weight Sex Delivery Anes PTL Sharona A 1 A5 Name Clin Labor Comments: System Generated. Please review and update details. Last Filed Vital Signs Vital Sign Reading Time Taken Comments Blood Pressure 116/77 10/14/20192099 EDT Pulse 89 10/14/20192099 EDT Temperature 36.9 ??C (98.4 ??F) 10/14/20192099 EDT Respiratory Rate 16 10/14/20192099 EDT Oxygen Saturation 98% 10/14/20192099 EDT Inhaled Oxygen Concentration - - Weight 113.4 kg (250 lb) 04/03/2019 2302 EST Height 167.7 cm (5' 6.02) 03/17/2019 1603 EST Body Mass Index 40.32 03/17/2019 1603 EST Plan of Treatment Health Maintenance Due Date Last Done Comments Social Determinants Of Health (SDOH) 1990 COVID-19 Vaccine (1) 1994 Behavioral Health Screen 06/10/2018 06/10/2017, 11/26/2015 Pneumococcal Immunization (2 - PCV) 06/10/2018 06/10/2017 Cervical Cancer Screening 08/29/2018 08/30/2015, 12/24/2011 , 03/20/2011 Preventive Care Visit 06/11/2019 06/10/2017 Influenza Immunization (Adult) 12/06/2021 01/17/2016, 03/22 (Season Ended) Tetanus (Adult) Immunization 05/18/2022 05/18/2012 Pertussis (Adult) Immunization Completed 05/18/2012 Hepatitis C Screen Completed 11/20/2018 HIV Screening Completed 07/07/2020, 11/20/2018, 08/03/2008 Goals Goal Patient Goal Associated Recent Patient-Stated? 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, dependence Vania syndrome Healthy General On track [...] more about your health please v isit: [email or web address]/medcenter/Pages/Wellness-Resources/Ubigwpueq-Imhfyu-Uy Insurance Payer Benefit Plan Subscriber ID Effective Phone Address Typ e / Group Dates MEDICAID ACO MEDICAID ACO [id number] 2017-Pres [phone] [address] [place] ent [address] [facility] [id number] Mary Grace Harris Personal/Family Self [address] [place] [address] Mary Grace Harris Personal/Family Self [address] [place] [address] Mary Grace Harris Personal/Family Self [address] [place] [address] Mary Grace Harris Personal/Family Self [address] [place] [address] Mary Grace Harris Personal/Family Self [address] [place] [address] Mary Grace Harris Personal/Family Self [address] [place] [address] Mary Grace Harris Personal/Family Self [address] [place] [address] Advance Directives For more information, please contact: [phone] Documents on File Type Date Recorded 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 Not Discussed Full Code 11/06/2018 13:33 11/14/2018 21:08 Reason for decision includes: Full code consistent with over all plan of care Who participated in the discussion? Not Discussed Full Code 06/24/2012 12:03 06/24/2012 15:34 Full Code 09/04/2011 18:43 09/07/2011 19:50 Care Teams Supervisor Facepiece Line Relationship Specialty Start Date End Date Jim Morales MD PCP - General Family Medicine - Primary 08/06/[address] [place] [phone]
--- OUTSIDE RECORDS SUMMARY | 2021-08-16 23:29 | XMS_ITS | Encounter Summary ---
:1990 Author Organization [facility] Address [address] [place] [address] Care Team Providers Name Role Phone Sana Muhammad MD Primary Care Provider Reason for Visit Reason Onset Date Comments Psych 03/17/2019 Stress Reaction 03/17/2019 Encounter Details Date Type Department Care Team Description 03/17/2019 Telephone [facility] Sana Muhammad, Ps [facility]; Stress Reaction Family Medicine - [address] [phone] (Wo rk) Social History Tobacco Use Types Packs/Day Years Used Date Current Every Day Smoker 1 10 Smokeless Tobacco: Never Used Alcohol Use Standard Drinks/Week Comments Yes 3 [...] or older) documented as of this encounter Miscellaneous Notes Telephone Encounter - Suki Bill, RN - 03/17/2019 9184 EST Returned called to Patient, States has not been sleeping for months Seeing demons leave her body Having some issues with her neighbor currently Saw my soul leave my body and go to her house Pt reports, When I go to [facility], they always say I am not crazy enough and that I am trespassing Pt repeatedly stating she needs to be admitted and be treated inpatient. Pt was seen on 03/10/19 and 03/13/19 at ED for SI. As well as multiple times in the past few months. Asked Pt if she is activity having suicidal thoughts, Pt reports I always want to kill myself, I have killed myself twice in the past but I don't . Asked Pt if she has any active plan in place or means, I don't have a plan but I am pretty sure my neighbor does. Discussed options with Patient at the moment, Can call Crisis or go to ED for eval. Pt states crisis never works and [facility] always just tells me I am not crazy enough. Pt states she feels safe enough to wait until OV today with Dr. Richmond. Pt responds in very calm and monotone voice consistently. I was on speaker phone with her and her grandmother; grandmother verbalized she can stay with her today until appt. Pt was scheduled in clinic with Dr. Richmond (psych resident) Discussed Pt with Dr. Muhammad - OV vs return to ED. Stated multiple times to Patient if she at any point feels unsafe or GM feels unsafe, do not hesitate to call 911, crisis, or be brought to ED. Patient verbalized understanding with no barriers to learning and will follow-up as advised. Suicide Risk: Patient has expressed concerns or thoughts of suicide. How long have you felt this way? I always feel this way Have you ever felt like this before? Yes Do you have a history of attempts? Yes per Pt Do you have a plan? No, but my neighbor does Do you have means or access to means? Not at the moment, with grandmother Do you have intent to follow through? I have tired twice in the past, I don't Have you rehearsed any part of the plan? No Are you home alone? No, grandmother is with her Is there someone that you can call to come stay with you? Yes she will stay with her GM today until evaluated. Resources: 911 or Nearest ER Text [phone] National Suicide Hotline [facility] Crisis line [phone] elephone Encounter - Loretta Lee - 03/17/2019 1030 EST Reason for Call: Psych and Stress Reaction Summary/Symptoms: Elaine, family friend is calling with concerns about patient's mental health. Pt's grandmother unable to call out due to phone problems. Elaine states that patient is hearing and seeing demons, states she is not in a good place, and can't stop crying. Elaine is not with her at the moment, but patient is currently with grandmother. Please call patient's grandmother at [phone]. Onset and Duration? Ongoing Appointment Offered? Yes, scheduled for 4:00pm today. Loretta Lee 03/17/2019 10:46 documented in this encounter Plan of Treatment Not on filedocumented as of this encounter Goals Goal Patient Goal Associated Recent Patient-Stated? 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[place], dependence Vania syndrome Healthy General On track [...] about your health please v isit: https://[facility].org/medcenter/Pages/Wellness-Resources/Nlmqjkecv-Rmdcwu-Cg documented as of this encounter Visit Diagnoses Not on filedocumented in this encounter Care Teams Extermination Supervisor Relationship Specialty Start Date End Date Sana Muhammad MD PCP - General 12/02/16 08/05/20 documented as of this encounter
--- OUTSIDE RECORDS SUMMARY | 2021-08-16 23:29 | XMS_ITS | Encounter Summary ---
:1990 Author Organization [facility] Address [address] [place] [address] Care Team Providers Name Role Phone Sana Muhammad MD Primary Care Provider Jim Morales MD Primary Care Provider Encounter Details Date Type Department Care Team Description 07/18/2019 Lab Requisition [facility] Outr Resulting Lab, Pathology & Laboratory Provider [facility] [address], [place] [id number] Social History Tobacco Use Types Packs/Day Years Used Date Never Assessed Sex Assigned at Date Recorded Not on [...] Vania syndrome Healthy General On track No Slime Eating (07/14/2018 Diana 15:30 EDT) Note: Healthy Eating Goal: Carry a healthy sna ck for when I'm hungry. The patient's confidence level, sources of support and barriers to change were assessed. Pertinent information is documented in the visit encounter. Counseling was provided to assess readiness, confidence and/or barriers to self-care. To learn more about your health please v isit: [email or web address]/ONStorer/Pages/Wellness-Resources/Unpklfrxw-Fasfbe-Zx documented as of this encounter Procedures Procedure Name Priority Date/Time Associated Diagnosis Comme nts PROLACTIN Routine 07/17/2019 9:18 EDT Results for this procedure are i n the results section . documented in this encounter Results PROLACTIN (07/17/2019 9:18 EDT) Prolactin 72.7 See Table [facility] Comment: ng/mL LABORATORY SERVICES NOTE: Female Reference Ranges: PHYSIOLOGICAL STATUS ?EXPECTED R SYLVESTER ? ---- Postmenopausal ?1.8 - 2 0.3 ng/mL ?9.7 - 208.5 ng/mL Non- ?2.8 - 29.2 ng/mL Reference Ranges for Prolact in in female patients <18 years old have not been established. Specimen Blood - Venous blood (substance) Performing Organization Address City/State/ZIP Code Phon e Number [facility] [address] [place] [address] SERVICES documented in this encounter Visit Diagnoses Not on filedocumented in this encounter Additional Health Concerns Infection Onset Date Last Indicated Resolved Time COVID-19 03/07/2021 03/07/2021 03/27/2021 22:15 EST documented as of this encounter Care Teams Electric Welder Helper Relationship Specialty Start Date End Date Sana Muhammad MD PCP - General 12/02/16 08/05/20 Jim Morales MD PCP - General Family Medicine - Primary 08/06/[address] [place] [phone] documented as of this encounter
--- OUTSIDE RECORDS SUMMARY | 2021-08-16 23:29 | XMS_ITS | Encounter Summary ---
:1990 Author Organization [facility] Address [address] [place] [address] Care Team Providers Name Role Phone Sana Muhammad MD Primary Care Provider Reason for Visit Reason Onset Date Comments Urinary Tract Infection 06/05/2019 Encounter Details Date Type Department Care Team Description 06/05/2019 Telephone [facility] Sana Muhammad, Ur inary Tract Family Medicine - [place] Infection [address] [phone] (Wo rk) Social History Tobacco Use Types [...] this encounter Miscellaneous Notes Telephone Encounter - Ese Hua - 06/05/2019 1554 EDT Care and concern call made. Left message for the patient to call our office if still symptomatic or has any question/concerns. documented in this encounter Plan of Treatment [...] more about your health please v isit: https://www.[email or web address]/medcenter/Pages/Wellness-Resources/Trhaqegrv-Gkhjbm-Sb documented as of this encounter Visit Diagnoses Not on filedocumented in this encounter Care Teams Aquacultural Worker Supervisor Relationship Specialty Start Date End Date Sana Muhammad MD PCP - General 12/02/16 08/05/20 documented as of this encounter
--- OUTSIDE RECORDS SUMMARY | 2021-08-16 23:29 | XMS_ITS | Encounter Summary ---
:1990 Author Organization [facility] Address [address] [place] [address] Care Team Providers Name Role Phone Sana Muhammad MD Primary Care Provider Jim Morales MD Primary Care Provider Encounter Details Date Type Department Care Team Description 09/28/2019 Lab Requisition [facility] Outr Resulting Lab, Pathology & Laboratory Provider [facility] [address] [place] [address], [place] [address] Social History Tobacco Use Types Packs/Day Years [...] Problems Progress 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Haakon, dependence Vania syndrome Healthy General On track No Slime Diaz (07/14/2018 Diana 15:30 EDT) Note: Healthy Eating Goal: Carry a healthy sna ck for when I'm hungry. The patient's confidence level, sources of support and barriers to change were assessed. Pertinent information is documented in the visit encounter. Counseling was provided to assess readiness, confidence and/or barriers to self-care. To learn more about your health please v isit: [email or web address]-Resources/[email or web address] documented as of this encounter Procedures Procedure Name Priority Date/Time Associated Comments Diagnosis DO NOT ORDER Today 09/28/2019 21:55 Results for this STANDALONE - BROAD EDT procedure are in COVID TEST the results section. COVID-19 TESTING Routine 09/28/2019 21:55 Results for this EDT procedure are i n the results section. documented in this encounter Results DO NOT ORDER STANDALONE - BROAD COVID TEST (09/28/2019 21:55 EDT) COVID-19 rt-PCR NEGATIVE Negative [facility] Result Comment: LABORATORY 2019-novel Coronavirus (2019 -nCoV) not detected by the qRT-PCR assay. Consider testing for other respiratory viruses or re-collecting for 2019-nCoV testing. Note: Optimum timing for peak viral levels du ring infections caused by 20 -nCoV have not been determined. Collection of multiple specimens from the same patient may be necessary to detect the virus. Limitations Positive results are indicat desirae of active infection with SARS-CoV-2 but do not rule out bacterial infection or co-infection with other viruses. The agent detected may not be the definite cause of diseas e. In addition, detection of viral RNA may not indicate the presence of infectious virus or that SARS-CoV-2 is the causative agent for clinical symptoms. Negative results do not prec lude SARS-CoV-2 infection and should not be used as the sole basis for patient management decisions. Negative results must be combined with clinical observations, patient his tory, and epidemiological in formation. False negative results may also occur if amplification inhibitors are present in the specimen or if inadequate numbers of organisms are present in the specimen. Op timum specimen types and valeria ing for peak viral levels during infections caused by SARS-CoV-2 have not been fully determined. Collection of multiple specimens (types and time points) from the same patient may be necessary to detect the virus. The test was validated for u se with upper respiratory specimens obtained via nasopharyngeal or oropharyngeal swabs in VTM, UTM, M4, M5, M6, saline, and MTM media. The performance of this test has not be en established for other spe cimens. Specimens collected using other FDA recommended Specimen Collection Materials listed in the FDA COVID-19 [employer] communication (June 01, 2019) are pr ocessed with the caveat that they were not all validated for use with this test and the result must be interpreted in this context. Furthermore, a false negative results may occur if a specimen is improperly collected, transported or handled. If the virus mutates in the RT-PCR target region, SARS-CoV-2 may not be detected or may be detected less predictably. Inhibitors or other types of interference may produce a false negative result. An interference study evaluating the effect of common cold medications was not performed. This test is not FDA-cleared but its performance characteristics were established by our CLIA-certified, CAP-accredited, high complexity laboratory in accordance with CLIA regulations, College [employer] (CAP) guidel tavares (May 25, 2019), and FDA guidance (May 06, 2019). This test is only for use un mandie the Food and Drug Administration's Emergency Use Authorization. Specimen Swab - Entire nasopharynx (body structur e) Performing Organization Address City/State/ZIP Code Phon e Number [facility] [place] [place] COVID-19 TESTING (09/28/2019 21:55 EDT) COVID-19 rt-PCR NEGATIVE Negative [facility] Result Comment: LABORATORY 2019-novel Coronavirus (2019 -nCoV) not detected by the qRT-PCR assay. Consider testing for other respiratory viruses or re-collecting for 2019-nCoV testing. Note: Optimum timing for peak viral levels du ring infections caused by 20 19-nCoV have not been determined. Collection of multiple specimens from the same patient may be necessary to detect the virus. Limitations Positive results are indicat desirae of active infection with SARS-CoV-2 but do not rule out bacterial infection or co-infection with other viruses. The agent detected may not be the definite cause of diseas e. In addition, detection of viral RNA may not indicate the presence of infectious virus or that SARS-CoV-2 is the causative agent for clinical symptoms. Negative results do not prec lude SARS-CoV-2 infection and should not be used as the sole basis for patient management decisions. Negative results must be combined with clinical observations, patient his tory, and epidemiological in formation. False negative results may also occur if amplification inhibitors are present in the specimen or if inadequate numbers of organisms are present in the specimen. Op timum specimen types and valeria ing for peak viral levels during infections caused by SARS-CoV-2 have not been fully determined. Collection of multiple specimens (types and time points) from the same patient may be necessary to detect the virus. The test was validated for u se with upper respiratory specimens obtained via nasopharyngeal or oropharyngeal swabs in VTM, UTM, M4, M5, M6, saline, and MTM media. The performance of this test has not be en established for other spe cimens. Specimens collected using other FDA recommended Specimen Collection Materials listed in the FDA COVID-19 [employer] communication (June 01, 2019) are pr ocessed with the caveat that they were not all validated for use with this test and the result must be interpreted in this context. Furthermore, a false negative results may occur if a specimen is improperly collected, transported or handled. If the virus mutates in the RT-PCR target region, SARS-CoV-2 may not be detected or may be detected less predictably. Inhibitors or other types of interference may produce a false negative result. An interference study evaluating the effect of common cold medications was not performed. This test is not FDA-cleared but its performance characteristics were established by our CLIA-certified, CAP-accredited, high complexity laboratory in accordance with CLIA regulations, College of [employer] an Pathologists (CAP) guidel tavares (May 25, 2019), and FDA guidance (May 06, 2019). This test is only for use un mandie the Food and Drug Administration's Emergency Use Authorization. 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
--- OUTSIDE RECORDS SUMMARY | 2021-08-16 23:29 | XMS_ITS | Continuity of Care Document ---
:1990 Author Organization [facility] Address [address] [place] [address] Phone Care Team Providers Name Role Phone [...] Active MG TABLET February 07, 2019 9:08pm [place] Discontinue ORAL February Carbonate d 2018, 9:18pm [...] Site Urine RBC 3-5 /hpf MAIN LAB, [address] [place] [address] [place] [address] Urine RBC None seen MAIN LAB, [address] [place] [address] /[place] [address] Urine WBC 10-20 /hpf MAIN LAB, [address] [place] [address] [place] [address] Urine WBC 20-40 /hpf MAIN LAB, [address] [place] [address] [place] [address] Urine 2+ /hpf MAIN LAB, [address] [place] [address] [place] [address] Epithelial Cells Urine 2+ /hpf MAIN LAB, [address] [place] [address] [place] [address] Epithelial Cells Urine 4+ /hpf NONE SEEN MAIN LAB, [address] [place] [address] [place] [address] Urine 3+ /hpf NONE SEEN MAIN LAB, [address] [place] [address] [place] [address] Urine Mucus Present MAIN LAB , [address] [place] [address] [place] [address] Urine Mucus Present MAIN LAB , [address] [place] [address] [place] [address] Urine Culture Yes URINE MAIN L AB, [address] [place] [address] [place] [address] CULTURED Urine Culture Yes URINE MAIN L AB, [address] [place] [address] [place] [address] CULTURED Urine Negative NEGATIVE MAIN LAB, [address] [place] [address] [place] [address] Test Urine Negative Cutoff:200 MAIN LAB, [address] [place] [address] Methadone ng/[place] [address] Screen Urine Negative Cutoff:200 MAIN LAB, [address] [place] [address] Methadone ng/[place] [address] Screen Microbiology Results Procedure Source Result Collection Result Result Performin g Date/Time Date/Time Comment Site Urine Culture Ur,Clean Escherichia Peter MAIN LAB, [address] [place] [address] Catch Coli 2018 [place] [address] 7:27am Urine Culture Ur,Clean Escherichia Peter MAIN LAB, [address] [place] [address] Catch Coli [address] [place] [address] 7:29am Group A Throat Peter MAIN LAB, [address] [place] [address] [place] [address] Screen (BRETT) 6:42am Diagnostic Imaging Reports Report Dictated Date/Time Dictated By Status Radiology Report March 06, 2010 11:22am Carlos Castellanos MD completed [facility] RADIOLOGY REPORT PATIENT NAME: YASMANY [...] Grashe y and Y views, done at [facility] clinic. 04/09/08 MRI of right shoulder. FINDINGS: [...] 2010 8:52am Rosemary Tatum MD c ompleted [facility] ULTRASOUND REPORT PATIENT NAME: YASMANY [...] [facility]? No J 2018 2:16pm Pt has a Living Will? No March 06, 0 10:42am Do we have a copy on file here at [facility]? 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 No J 2018 2:16pm Chief Complaint and Reason for [...] 1998 Julia Gentile Clinical Medical 1998 12:00am SHIVANI Center-Outpatient Conversion Departed [facility] October 12, 2001 October 12, 2001 [facility] 12:00am , MD Jarquin Departed [facility] October 01, 2005 October 01, 2005 Ana Laura Ríos Clinical Medical 12:00am MD Jonathan Center-Outpatient Conversion Departed [facility] February 26February 27, 2008 Sheryl Ace[facility] 2007 12:00am [facility] Departed [facility] March 12, 2008 March 12, 2008 josy Emergency Medical 12:00am Center-Emergency Department Departed [facility] March 15, 2008 March 15, 2008 Bradford perez [facility] 12:00am , DO Synergy Departed [facility] April 09, 2008 April 09, 2008 [place] birch [facility] 12:00am , DO [facility] Departed [facility] June 25, 2009 June 25, 2009 Ana Laura Ríos Referred Medical 8:23pm MD Jonathan Center-Referred Lab Departed [facility] July 09, 2009 July 09, 2009 Ana Laura Ríos Clinical Medical 5:34pm 11:59pm MD Jonathan Center-Laboratory Registered [facility] March 06, Kenyon Munoz [facility] 2009 10:41am APRIL [facility] [place] Registered [facility] March 12, 2010 Kenyon mclaughlin [facility] 1:34pm PA [facility] Departed [facility] April 14, 2013 April 14, 2013 Con version Physician/[facility] 12:00am Medent mandie Office [facility] Visit rn Assoc in Surgery Departed [facility] November 25, November 25, 2016 Sourav gaston PA-C Physician/[facility] 2016 12:00am Hansa mandie Office [facility] Visit rn [facility]gent [place] Departed [facility] February 20, February 20, 2017 Juliana elias Physician/[facility] 2016 12:00am Medent mandie Office [facility] Visit rn [facility] [place] Departed [facility] February 20, February 20, 2017 Sr. 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 Home Phone: Payer Policy Id Coverage Id Subscriber's Subscriber Id Effective E xpiration Name Date Date [place]OLA DUEÑAS [id number] BALA EUBANKS [id number] CROSS (DO NOT USE) MEDICAID [id number] YASMANY EUBANKS [id number] [place] S[place]F PAY Self N/A [place] MEDICAID [id number] YASMANY EUBANKS [id number] (DO NOT USE) Plan of Treatment Future Tests Future scheduled test information is unavailable Pending Tests Pending diagnostic test information is unavailable Future Visits Future appointment information is unavailable Referrals to Other Providers Reason for Referral Start Provider Provider Contact Provider Address Referral Date Information Sana Lo Work Phone: Benjy Ortega MD [address] [place] [address] Sana Lo Work Phone: Benjy Ortega MD [address] [place] [address] [place] [address] Sana Lo Work Phone: Benjy Ortega MD [address] [place] [address] [place] [address] Sana Lo Work Phone: Benjy Ortega MD [address] [place] [address] [place] [address] Sana Lo Work Phone: Benjy Ortega MD [address] [place] [address] [place] [address] Future Procedures Future procedure information is unavailable [...] Oxygen saturation by Pulse 98 % 95-100 [facility] 2016 oximetry 12:27pm BP Systolic 110 mm[Hg] [...] February 08, 6:47am Weight 116.57 kg February 08, 10:51pm Body Temperature 97.5 [degF] 97.6-99.6 February 09, 2 019 9:48am Heart Rate 73 /min 60-100 February 09 9:48am Respiratory rate 18 /min -February 08, 2 019 10:51pm Oxygen saturation by Pulse 99 % 95-100 Decem [facility] 2018 9:48am oximetry BP Systolic 114 mm[Hg] 100-140 February 09, 9:48am BP Diastolic 71 mm[Hg] 50-85 February 09, 9:48am
--- OUTSIDE RECORDS SUMMARY | 2021-08-16 23:29 | XMS_ITS | Encounter Summary ---
:1990 Author Organization [facility] Address [address] [place] [address] Care Team Providers Name Role Phone Jim Morales MD Primary Care Provider Encounter Details Date Type Department Care Team Description 04/07/2021 Lab Requisition [facility] Outr Resulting Lab, Pathology & Laboratory Provider [facility] [address] [place] [address] Social History Tobacco Use Types Packs/Day Years [...] Problems Progress 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Thomas, dependence Vania syndrome Healthy General On track [...] more about your health please v isit: [email or web address] documented as of this encounter Procedures Procedure Name Priority Date/Time Associated Diagnosis Comme nts T3 FREE Routine 04/07/2021 11:31 EST Results for this procedure are i n the results section . 

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
--- OUTSIDE RECORDS SUMMARY | 2021-08-16 23:29 | XMS_ITS | Encounter Summary ---
:1990 Author Organization [facility] Address [address] [place] [address] Care Team Providers Name Role Phone Sana Muhammad MD Primary Care Provider Reason for Visit Reason Comments Psychiatric Evaluation Pt states suicidal thoughts, crying at triage. Pt did not call anyone. Encounter Details Date Type Department Care Team Description 03/18/2019 Emergency [facility] Feliciano Sharma, Ramonita djustment disorder Emergency Department PAJenniferC with mixed anxiety and - [facility] [address] [facility] depressed mood [address] [facility] (Primary Dx) [place] [address] [address], [place] [id number] (Wo rk) Social History Tobacco Use Types Packs/Day Years Used Date Current Every Day Smoker 1 10 Smokeless Tobacco: Never Used Alcohol Use Standard Drinks/Week Comments Yes 3 (1 standard drink = 0.6 oz pure alcoho l) occ Sex Assigned at Date Recorded Not on file documented as of this encounter Last Filed Vital Signs Vital Sign Reading Time Taken Comments Blood Pressure 126/83 03/18/2019 1445 EST Pulse 117 03/18/2019 1445 EST Temperature 36.8 ??C (98.2 ??F) 03/18/2019 1137 EST Respiratory Rate 18 03/18/2019 1445 EST Oxygen Saturation 99% 03/18/2019 1445 EST Inhaled Oxygen Concentration - - Weight - [...] documented as of this encounter Discharge Instructions Feliciano Conner PA - 03/18/2019 At your Emergency Department visit today, you were evaluated for depression, anxiety, thoughts of self-harm. Your medical work-up included physical examination, mental health evaluation. After your mental health evaluation, the crisis and psychiatry team felt that you are safe for discharge home. Follow-up with your outpatient mental health team and primary care provider for re-evaluation. Return to the Emergency Department or call [facility] if you develop worsening of your condition, including worsening thoughts of harming your self or others. AttachmentsThe following attachments cannot be sent through Care Everywhere. Adjustment Disorder (Pashto)documented in this encounter Medications at Time of Discharge Medication Sig Dispensed Refills Start Date End Date acetaminophen (TYLENOL) Take 2 Tabs by mouth 50 Tab 0 500 mg 3 times daily as tabletIndications: pain needed for Pain. calcium carbonate (TUMS) Take 1-2 Tabs by 30 Tab 2 02/24 200 mg calcium (500 mg) mouth 4 times daily tablet,chewableIndicatio as needed for ns: dyspepsia, heartburn Heartburn or Indigestion. DOK 100 mg Take 1 Dose by mouth 0 12/20/2018 capsuleIndications: daily. Drug-induced constipation MEDICAL Inhale 1 Dose as 0 02/08/2019 MARIJUANAIndications: directed daily. Anxiety melatonin 5 mg Take 1 Tab by mouth 30 Tab 3 12/08/2018 tabletIndications: at bedtime as needed insomnia for Other (Sleep). Multivitamins with Take 1 Tab by mouth 0 12/01/19 19 Minerals tablet daily. tabletIndications: mineral deficiency prevention, vitamin deficiency prevention naproxen (EC NAPROSYN) Take 500 mg by mouth 0 500 mg EC tablet 2 times daily as needed. nitrofurantoin, Take 100 mg by mouth 0 02/13/2019 macrocrystal-monohydrate 2 times daily. , (MACROBID) 100 mg capsuleIndications: Acute cystitis without hematuria risperiDONE (RISPERDAL) Take 2 mg by mouth 0 2 mg tablet daily. TAB-A-AMANUEL per tablet Take 1 Tab by mouth 0 12/21 every morning. UNABLE TO FIND Take 2 mg by mouth 0 daily. Med Name: Risperidone 2 mg One tablet daily levonorgestrel (PLAN B Take 1 Tab by mouth 1 Tab 0 06/201804/03/2019 ONE-STEP) 1.5 mg once for 1 dose. tabletIndications: Encounter for contraceptive management, unspecified type mirtazapine (REMERON) Take 1 Tab by mouth 14 Tab 0 03/1703/31/2019 7.5 mg at bedtime for 14 tabletIndications: days. If no side Episode of recurrent effects after 2-3 major depressive days, increase to 2 disorder, unspecified tabs at bedtime for depression episode 15mg daily dose. severity (HCC) documented as of this encounter Discharge Disposition Disposition Code Departure Means Destination Home or Self Long-Term documented in this encounter ED Notes Valdemar Ayala RN - 03/18/2019 6964 EST Chartered Wealth Manager was in to see pt to review discharge instructions Upon initial approach she is calm and cooperative, standing next to the stretcher. She is wearing hospital scrubs, appears disheveled with fair hygiene. She has met with [facility] clinician and the clinician consulted with psychiatry. The plan being for pt to discharge and follow up with [facility] team at [facility]. She is agreeable with this plan. She does endorse feeling safe. Does not verbalize SI/HI/AVH. All belongings returned to pt. Reviewed discharge instructions. She verbalizes understanding and denies questions. Pt leaving department at this time. upuis, Feliciano Sandy, APRIL - 03/18/2019 1436 EST DOS: 03/18/2019 Chief Complaint Patient presents with ??? Psychiatric Evaluation Pt states suicidal thoughts, crying at triage. Pt did not call anyone. HPI The patient is a 28 y.o. female who presents today with Psychiatric Evaluation (Pt states suicidal thoughts, crying at triage. Pt did not call anyone. ) HPI 28-year-old female presents complaining of depression, thoughts of self-harm, emotional and physical . Patient provides limited history, reluctant participant in exam today. Refuses to discuss things in detail, but states that she feels unwell, as if her emotions are being thrown against the wall. Denies any specific physical complaints, but does have multiple chronic medical problems including fibromyalgia. She has been seen here multiple times in the emergency department, with similar complaints. Denies any specific triggering events. States that she has voices in my head. Denies any command hallucinations, or visual hallucinations. Denies any paranoid or delusional thoughts. Lives withher boyfriend. Denies any recent trauma or stressors. Will not describe what prompted her to come tot emergency department today, or any potential triggers that would cause her to feel like harming herself. Review of Systems Review of Systems Constitutional: Negative for activity change, appetite change and fatigue. Respiratory: Negative for shortness of breath. Gastrointestinal: Negative for abdominal pain. Skin: Negative for wound. Psychiatric/Behavioral: Positive for agitation, dysphoric mood, sleep disturbance and suicidal ideas. Negative for confusion, hallucinations and self- injury. The patient is nervous/anxious. Allergies Allergen Reactions ??? Gluten Protein ??? Haldol [Haloperidol Lactate] paralysis ??? Paxil [Paroxetine Hcl] Nausea And Vomiting Vital Signs Vitals Reassessment?: Yes Temp: 36.8 ??C (98.2 ??F) Temp src: Temporal Pulse: (!) 117 Resp: 18 SpO2: 99 % BP: 126/83 BP MAP: 90 mm Hg BP Device: BP Machine BP Patient Position: Sitting BP Cuff Location: Left arm O2 Device: None (Room air) Physical Exam Constitutional: She is oriented to person, place, and time. She appears well- developed and well-nourished. No distress. HENT: Head: Normocephalic and atraumatic. Right Ear: External ear normal. Left Ear: External ear normal. Nose: Nose normal. Mouth/Throat: Oropharynx is clear and moist. Eyes: Conjunctivae and EOM are normal. Neck: Normal range of motion. Neck supple. Cardiovascular: Intact distal pulses. Pulmonary/Chest: Effort normal. No respiratory distress. Musculoskeletal: Normal range of motion. Neurological: She is alert and oriented to person, place, and time. Skin: Skin is warm and dry. No rash noted. She is not diaphoretic. No erythema. No pallor. Psychiatric: Her speech is normal. Her affect is angry, labile and inappropriate. She is agitated, withdrawn and combative. Thought content is not paranoid and not delusional. Cognition and memory are normal. She expresses impulsivity and inappropriate judgment. She expresses suicidal ideation. She exp resses no homicidal ideation. She expresses no suicidal plans. Nursing note and vitals reviewed. RESULTS EKG orders: None Radiology orders: None Procedures ED COURSE A medical screening exam was performed. Patient presents with initial complaints of suicidal ideation. Patient would not engage in any formal conversation with me regarding her concerns. Patient also refused physical exam. Throughout the encounter, patient is selective in her willingness to talk, but refuses to speak when prompted with more complex questions regarding her mental state. At times, patient attempts to sleep while we are having conversation. Just prior to my assessment, she was seen alert, sitting up in bed, and admits to driving herself to the emergency department. In an attempt to wake the patient, the head of the bed was raised approximately 10 degrees. Patient appeared well. Patient then began screaming, agitated, sobbing loudly. States that she has scoliosis, tendinitis, fibromyalgia, and that her back is now hurting her. You broke my back. Patient continues to yell, accused me of harm. Discussed that the degree of elevation of the head of the bed would not cause that type of injury, but if she without assessment, I could perform this. She refuses. Patient continues to be agitated. Offered the patient medications, which she refused. After departing from the room, patient continued to yell out repeatedly. Myself and nursing staff entered the room, spoke with the patient, was able to demonstrate calm emotional behavior, without any description of pain, with movement of herlegs, rolling onto her side, without any obvious pain or guarding. However when prompted to discuss the reasons for her visit, she continued to yell out, be agitated, make threats to staff. Eventually,patient was able to calm. She did have a bloody nose, which she states now I am bleeding from my brain! Discussed with the patient that this is not blood from her brain, she had no head injury, and has been resting her face on the pillow. She is provided tissues, eventually calms her behavior. Stillrefuses to engage with staff. Consulted crisis. Crisis evaluated the patient. Patient is agreeable for discharge home, follow-up with her regular outpatient services. Patient will be discharged, return precautions should have worsening of her condition. Final diagnoses: Adjustment disorder with mixed anxiety and depressed mood DISPOSITION: Discharged The patient's pain was managed to an adequate level weighing risk vs. benefit of further medications. Upon departure from the Emergency Department, the patient's pain was 0 on a zero to ten scale. Any further pain treatment will be at the discretion of the provider following up with the patient based on their clinical assessment. Condition at departure from the Emergency Department: Stable PCP: Sana Muhammad MDM Number of Diagnoses or Management Options Adjustment disorder with mixed anxiety and depressed mood: established and worsening Amount and/or Complexity of Data Reviewed Decide to obtain previous medical records or to obtain history from someone other than the patient: yes Obtain history from someone other than the patient: yes Review and summarize past medical records: yes Discuss the patient with other providers: yes Risk of Complications, Morbidity, and/or Mortality Presenting problems: moderate Diagnostic procedures: low Management options: low Patient Progress Patient progress: stable Shakir Sultana was available for supervision. 03/18/2019 15:00 No flowsheet data found. Sulema Jaime RN - 03/18/2019 1232 EST PA back to room as pt is screaming and yelling. Sulema Jaime RN - 03/18/2019 1225 EST PA at bedside to becky, pt tearful, yelling out, sobbing I can barely move my fucking legs while laying prone on stretcher. ulema Paige RN - 03/18/2019 1215 EST Pt requesting menu, pt informed she has not been seen by a provider but we can provide ED food stockand drink, pt provided turkey sandwich and gingerale ulema Paige RN - 03/18/2019 1205 EST Pt ambulating about room, appears distressed, requests female only sit, provided. Mounika Moon - 03/18/2019 1152 EST Patient changed into paper scrubs two belongings bags with boots, clothes and car zuniga labeled and secured into belongings closet by Karen FARIAS. documented in this encounter Plan of Treatment Not on filedocumented as of this encounter Goals Goal Patient Goal Associated Recent Patient-Stated? 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[place], dependence Vania syndrome Healthy General On track [...] more about your health please v isit: [email or web address]-[email or web address] documented as of this encounter Visit Diagnoses Diagnosis Adjustment disorder with mixed anxiety a nd depressed mood - Primary documented in this encounter Care Teams Kick Boxer Relationship Specialty Start Date End Date Sana Muhammad MD PCP - General 12/02/16 08/05/20 documented as of this encounter
--- OUTSIDE RECORDS SUMMARY | 2021-08-16 23:29 | XMS_ITS | Encounter Summary ---
:1990 Author Organization [facility] Address [address] [place] [address] Care Team Providers Name Role Phone Jim Morales MD Primary Care Provider Encounter Details Date Type Department Care Team Description 03/07/2021 Lab Requisition [facility] Outr Resulting Lab, Pathology & Laboratory Provider [facility] [address] [place] [address] Social History Tobacco Use Types [...] your health please v isit: [email or web address] documented as of this encounter Procedures Procedure Name Priority Date/Time Associated Diagnosis Comme nts COVID-19 TEST [facility] Today 03/07/2021 12:46 LAB PCR EST COVID-19 TESTING Routine 03/07/2021 12:46 Results for this EST procedure are i n the results section. documented in this encounter Results COVID-19 TEST [facility] LAB PCR (03/07/2021 12:46 EST) Specimen Swab Performing Organization Address City/State/ZIP Code Phon e Number [facility] [address] [place] [address] SERVICES (ABNORMAL) COVID-19 TESTING (03/07/2021 12:46 EST) COVID-19 rt-PCR Positive (AA) Negative [facility] Result Comment: LABORATORY This test has not been FDA c leared or approved. This test has been authorized by FDA under an EUA for use by authorized laboratories. This test has been authorized only for detection of nucleic acid fro SERVICES m 2019-nCoV, not for any oth er viruses or pathogens. This test is only authorized for the duration of the declaration that circumstances exist justifying the authorization of emergency use of in vitro d iagnostic tests for detectio n and/or diagnosis of 2019-nCoV under section 564(b)(1) of Act, 21 U.S.C ?? 360bbb-3(b) (1), unless the authorization is terminated or revoked sooner. Performed on the [employer] [place] Fusion instrument Performing Lab [place] [facility] Lab [facility] SERVICES Specimen Swab Performing Organization Address City/State/ZIP Code Phon e Number [facility] [address] [place] [address] SERVICES documented in this encounter Visit Diagnoses Not on filedocumented in this encounter Additional Health Concerns Infection Onset Date Last Indicated Resolved Time COVID-19 03/07/2021 03/07/2021 03/27/2021 22:15 EST documented as of this encounter Care Teams Service Advocate Contact Relationship Specialty Start Date End Date Jim Morales MD PCP - General Family Medicine - Primary 08/06/[address] [place] [id number] documented as of this encounter
--- OUTSIDE RECORDS SUMMARY | 2021-08-16 23:29 | XMS_ITS | Encounter Summary ---
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 officer was then reported to have attempted to talk with her and noticed that she was not making much sense. Due to the severity of CT not making sense and related concerns he [id number] which brought [employer] and the EMS who transported CT to [facility] ED. CT was reported by [facility] ED staff to stare off in space and only intermittently answers questions which was congruent with what this principal technical writer observed as CT would take long pauses, say what, look offinto no particular direction and look back at this principal technical writer either repeating the question or asking what this principal technical writer has said. Ct appeared to be distracted and focused on internal stimuli that was self reported as AH. She does endorse SI. When she was asked by [facility] ED staff about a plan she states anyway I can. When this principal technical writer asked she did not verbally respond however nodded her head convey yes. She stated to [facility] ED medical staff that she hears people screaming for help, but I can't help them. In addition to these voices she stated that the voices are command voices to hurt others vaguely with no one in particular identified. 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 Relevant Psychosocial Information: CT has an extended history with [facility] (), [facility] with multiple IP admissions. It is unclear that CT has been discharged from the [facility] program. CT's last FC assessment was 07/13/19 with a similar presentation resulting in an IP admissions. CT reported taht she takes medications and that she takes them regularly. Mental Status Appearance: Disheveled Attitude: Guarded Behavior: Psychomotor Agitation Normal Rate / Rhythm / Tone Mood: Euthymic and Anxious Sleep Pattern: No Disturbance Noted Appetite: No Disturbance Noted Affect: Flat Thought Process: Flight of Ideas Perception: Auditory Hallucination and Delusions Cognitions: Memory Impairment Insight: Poor Judgement: Poor Concentration: Poor Orientation: Disoriented Risk Assessment Suicidality: Mild Homicidality: Mild Clinical Interpretation: CT appears to be heavily disorganized in conjunction to being disoriented.CT endorses SI and HI vaguely which is concerning considering her current mental status, however, her risk appears to be higher as it relates to the severity of her symptoms and her ability to make safe decisions based on her low insight and judgment. This principal technical writer recommends IP treatment to help with thedecrease in her psychotic symptoms. Plan: The plan for this patient is: [facility] [address], [place], [facility], [facility] [place] and [facility] Consultation with: Sulema Hi [facility] ED Attending Physician and Shireen Kerr Clinical Programmer Orlin Santos Life Insurance Underwriter [facility] documented in this encounter Plan of Treatment Not on filedocumented as of this encounter Goals Goal Patient Goal Associated Recent Patient-Stated? 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[place], dependence Vania syndrome Healthy General On track [...] more about your health please v isit: [email or web address] documented as of this encounter Procedures Procedure Name Priority Date/Time Associated Diagnosis Comme nts ECG REPORT - 10/16/2019 10:44 SCANNED EDT COVID-19 TEST [facility] STAT 10/14/2019 14:46 Resu lts for this LAB PCR EDT procedure are i n the results section. COVID-19 TESTING STAT 10/14/2019 14:46 Results for this EDT procedure are i n the results section. EKG 12-LEAD STAT 10/14/2019 11:09 Results for this EDT procedure are i n the results section. documented in this encounter Results COVID-19 TEST [facility] LAB PCR (10/14/2019 14:46 EDT) Specimen Swab - Nasal (qualifier value) Performing Organization Address [facility] Phon e Number [facility] [address] [place] [address] SERVICES COVID-19 TESTING (10/14/2019 14:46 EDT) COVID-19 rt-PCR Negative Negative [facility] Result Comment: [facility] This test has not been FDA [...] the authorization is terminated or revoked sooner. Negative results do not prec lude 2019-nCoV infection and should not be used as the sole basis for treatment or other patient management decisions. Negative results must be combined with clinical observa tions, patient history, and epidemiological informatio n. Performed on the [employer] [place] Fusion instrument Performing Lab [place] [facility] Lab [facility] SERVICES Specimen Swab - Nasal (qualifier value) Performing Organization Address [facility] Code Phon e Number [facility] [address] [place] [address] SERVICES EKG 12-LEAD (10/14/2019 11:09 EDT) Specimen Narrative [facility] - 10/16/2019 10:3 7 EDT ?[facility] Emergency ? Test Date: ?2019-10-14 Pat Name: ? MARY GRACE HARRIS ? Department: ?? ED ? Room: ? GT39 Gender: ? Female ? Pals Specialist: ?? [id number] : ?1990 ? Requested By: ANGELITO AWAN S Order Number: [id number] ? Reading MD: ?? SCOTT LAHOUD MD ? Measurements Intervals ?[place] ? Rate: ? 97 ? P: ?16 AL: ? 142 ?QRS: ?16 QRSD: ? 91 ? T: ?22 QT: ? 346 ? QTc: ?440 ? Interpretive Statements SINUS RHYTHM Compared to ECG 12/08/2018 09:05:35 Left posterior fascicular block no longe r present I reviewed the tracing and have either a greed or edited the findings in this report. Electronically Signed On 10-16-19 10:37:41 EDT by SCOTT SWIFT MD. Procedure Note Scott Swift MD - 10/16/2019 [facility] Emergency Test Date: 2019-10-14 Pat Name: MARY GRACE HARRIS Department: ED Room: GT Gender: Female Pals Specialist: [id number] : 1990 Requested By: ANGELITO Mata Order Number: [id number] Kyle MD: Jillian SWIFT MD Measurements Intervals [place] Rate: 97 P: 16 AL: 142 QRS: 16 QRSD: 91 T: 22 QT: 346 QTc: 440 Interpretive Statements SINUS RHYTHM Compared to ECG 12/08/2018 09:05:35 Left posterior fascicular block no longe r present I reviewed the tracing and have either a greed or edited the findings in this report. Electronically Signed On 10-16-19 10:37:41 EDT by SCOTT SWIFT MD. Performing Organization Address City/State/ZIP Code Phon e Number [facility] E[facility] documented in this encounter Visit Diagnoses Diagnosis Suicidal ideation - Primary documented in this encounter Administered Medications Inactive Administered Medications - up to 3 most recent administrations Medication Order MAR Action Action Date Dose Rate Site benztropine (COGENTIN) tablet 0.5 mg Given 10/15/2019 9:43 EDT 0.5 mg 0.5 mg, oral, DAILY, First dose on 10/14/19 at 1945, Until Discontinued, STAT Given 10/14/2019 20:39 EDT 0.5 mg LORazepam (ATIVAN) tablet 1 mg Given 10/15/2019 9:43 EDT 1 mg 1 mg, oral, 2 TIMES DAILY PRN, Starting on 10/14/19 at 1937, Until 10/15/19 at 1443, Anxiety, STAT Given 10/14/2019 20:39 EDT 1 mg nicotine (NICOTROL) 10 mg inhaler kit 1 dose, Starting on 10/15/19 at 0957, Until Sun at 1443 nicotine inhaler (delivery device) 1 dose, Starting on 10/15/19 at 0957, Until Sun at 1443 risperiDONE (RISPERDAL) tablet 2 mg Given 10/14/2019 19:09 EDT 2 mg 2 mg, oral, NOW X1, 1 dose, On 10/14/19 at 1845, STAT ziprasidone (GEODON) capsule 40 mg Given 10/15/2019 9:43 EDT 40 mg 40 mg, oral, 2 TIMES DAILY, First dose on 10/14/19 at 2100, Until Discontinued, STAT Given 10/14/2019 20:39 EDT 40 mg documented in this encounter Active and Recently Administered Medications Times are shown in EDT. Scheduled Medication Order 10/13/2019 10/14/2019 10/15/2019 benztropine (COGENTIN) tablet 0.5 mg (Given - Provider: Babak Willson, RN) 942 (Given - Provider: Rashawn Pichardo, RN) 0.5 mg, oral, DAILY, First dose on 10/14/19 at 1945, Until Discontinued, STAT risperiDONE (RISPERDAL) tablet 2 mg (COMPLETED) 1908 (Given - Provider: Babak Willson, RN) 2 mg, oral, NOW X1, 1 dose, 10/14/19 at 1845, STAT ziprasidone (GEODON) capsule 40 mg 2038 (Given - Provider: Babak Willson, RN) 43 (Given - Provider: Rashawn Pichardo, RN) 40 mg, oral, 2 TIMES DAILY, First dose o n 10/14/19 at 2100, Until Discontinued, STAT PRN Medication Order 10/13/2019 10/14/2019 10/15/2019 LORazepam (ATIVAN) tablet 1 mg 2038 (Given - Pro vider: Babak Willson RN) 0943 (Given - Provider: Rashawn Pichardo, RN) 1 mg, oral, 2 TIMES DAILY PRN, Starting 10/14/19 at 1937, Until 10/15/19 at 1443, Anxiety, STAT No Frequency Medication Order 10/13/2019 10/14/2019 10/15/2019 nicotine (NICOTROL) 10 mg inhaler kit 1 dose, Starting 10/15/19 at 0957, Until Discontinued nicotine inhaler (delivery device) 1 dose, Starting 10/15/19 at 0957, Until Discontinued documented in this encounter Orders Medications Ordered That Might Not Have Count Last Ord ered Date First Ordered Date Been Administered nicotine (NICOTROL) 10 mg inhaler kit 1 10/15/2019 nicotine inhaler (delivery device) 1 10/15/2019 risperiDONE (RISPERDAL) tablet 2 mg 1 10/14/2019 Procedures Count Last Ordered Date First Ordered Date ECG REPORT - SCANNED 1 10/16/2019 documented in this encounter Care Teams Colorer Hides And Skins Relationship Specialty Start Date End Date Sana Muhammad MD PCP - General 12/02/16 08/05/20 documented as of this encounter
--- OUTSIDE RECORDS SUMMARY | 2021-08-16 23:29 | XMS_ITS | Continuity of Care Document ---
:1990 External Reference #:[id number] Author Care Team Providers Name Role Phone Monica Argueta M.D. Care Team Information Glass Lined Tank Repairer Unav ailable
--- OUTSIDE RECORDS SUMMARY | 2021-08-16 23:29 | XMS_ITS | Encounter Summary ---
:1990 Author Organization [facility] Address [address] [place] [address] Care Team Providers Name Role Phone Sana Muhammad MD Primary Care Provider Jim Morales MD Primary Care Provider Encounter Details Date Type Department Care Team Description 07/17/2019 Lab Requisition [facility] Outr Resulting Lab, Pathology & Laboratory Provider [facility] [address], [place] [id number] Social History Tobacco Use Types Packs/Day Years [...] about your health please v isit: [email or web address] documented as of this encounter Procedures Procedure Name Priority Date/Time Associated Diagnosis Comme nts COVID-19 TEST [facility] Today 07/17/2019 11:25 LAB PCR EDT COVID-19 TESTING Routine 07/17/2019 11:25 Results for this EDT procedure are i n the results section. documented in this encounter Results COVID-19 TEST [facility] LAB PCR (07/17/2019 11:25 EDT) Specimen Swab - Entire nasopharynx (body structur e) Performing Organization Address City/State/ZIP Code Phon e Number [facility] [address] [place] [address] SERVICES COVID-19 TESTING (07/17/2019 11:25 EDT) COVID-19 rt-PCR Negative Negative [facility] Result Comment: [facility] This test [...] and epidemiological informatio n. Performed on the [employer] Fusion instrument Performing Lab [facility] Lab [facility] SERVICES Specimen Swab - Entire nasopharynx (body structur e) Performing Organization Address City/State/ZIP Code Phon e Number [facility] [address] [place] [address] SERVICES documented in this encounter Visit Diagnoses Not on filedocumented in this encounter Additional Health Concerns Infection Onset Date Last Indicated Resolved Time COVID-19 03/07/2021 03/07/2021 03/27/2021 22:15 EST documented as of this encounter Care Teams Senior Examiner Relationship Specialty Start Date End Date Sana Muhammad MD PCP - General 12/02/16 08/05/20 Jim Morales MD PCP - General Family Medicine - Primary 08/06/[address] [place] [phone] documented as of this encounter
--- OUTSIDE RECORDS SUMMARY | 2021-08-16 23:29 | XMS_ITS | Continuity of Care Document ---
:[address] [facility] Address [address] [place] [address] Phone Care Team Providers Name Role Phone [...] Status gluten Adverse Reaction Unknown February 07, Yes 2018 haloperidol Adverse Reaction Unknown February 07, Yes 2018 paroxetine Adverse Reaction Unknown February 07, Yes 2018 Medications Medication Status Dose Units Route Sig Qty Days Start End Date Instr uctions Date Olanzapine Active MG TABLET February 07, 2019 9:08pm [place] Discontinue ORAL February Carbonate d 2018, 9:18pm [...] infection) Active Acute bronchitis November 25, 2016 Active Auditory hallucinations Active Hallucination, visual Active Inactive/Resolved Problems Medical Problem Onset Date Status Laceration of index finger of left hand without complication Resolved Chronic cough Resolved Tobacco use disorder Resolved Procedures Procedure Date Performed Status Urine Culture active Group A Streptococcus Screen (BRETT) compl eted US Extremity NonVas RT Limited March 12, 2010 completed Shoulder 2 vw Min RT March 06, 2010 completed Relevant Diagnostic Tests and/or Laboratory Data Laboratory Results Test Date/Time Result Interpretation Reference Result Perfo rming Range Comment Site Urine RBC None seen MAIN LAB, [address] [facility] /hpf [facility] [address] Urine WBC 20-40 /hpf MAIN LAB, [address] [facility] [address] Urine 2+ /hpf MAIN LAB, [address] [facility] Squamous [facility] [address] Epithelial Cells Urine 4+ /hpf NONE SEEN MAIN LAB, [address] [facility] Bacteria [facility] [address] Urine Mucus Present MAIN LAB , [address] [facility] [place] [address] Urine Culture Yes URINE MAIN L AB, [address] [facility] [place] [address] CULTURED Urine Negative NEGATIVE MAIN LAB, [address] [facility] [place] [address] Test Microbiology Results Procedure Source Result Collection Result Result Performin g Date/Time Date/Time Comment Site Group A Throat February MAIN LAB, [address] [facility] Streptococcus [address] [place] [address] Screen (BRETT) 6:42am Diagnostic Imaging Reports Report [...] Grashe y and Y views, done at [facility] satellite clinic. 04/09/08 MRI of [...] have a copy on file here at [facility]? No Bernabe murray 2018 2:16pm Pt has a Living Will? No March 06 0 10:42am Do we have a copy on file here at [facility]? No Bernabe murray 2018 2:16pm Pt has a Power of Lead Manufacturing Engineering Tech? No February 10:42am Do we have a copy on file here at [facility]? No Bernabe murray 2018 2:16pm Chief Complaint and Reason for Visit Chief Complaint LAB/ JOINT PAINS Pain CHEST XR INJURY XR Lab XR JT PAIN IN RT SHD finger injury EVIDENTIARY LUCILLE HEADACHE Encounters Encounter Location(s) Arrival/Admit Date Discharge/Depart Provi mandie(s) Date Departed [facility] Physician/Provi Medical 12:00am Medent mandie Office Center-CONV Misc Visit Comp Pain location Departed [facility] May 18, 1998 May 18, 1998 [facility] Emergency Medical 12:00am Center-Intermedia te Care Departed [facility] November 28, November 28, 1998 [facility] 1998 12:00am HORTICULTURAL AGENT Center-Outpatient Conversion Departed [facility] October 12, 2001 October 12, 2001 Vaughn Rcoa [facility] 12:00am MD Synergy Departed [facility] October 01, 2005 October 01, 2005 Ana Laura Ríos Clinical Medical 12:00am MD Jonathan Center-Outpatient Conversion Departed [facility] February 26, February 27, 2008 Sheryl Acevedo [facility] 2007 12:00am [facility] Departed [facility] March 12, 2008 March 12, 2008 null Emergency Medical 12:00am Center-Emergency Department Departed [facility] March 15, 2008 March 15, 2008 Bradford chris [facility] 12:00am , DO Synergy Departed [facility] April 09, 2008 April 09, 2008 El birch [facility] 12:00am , DO [facility] Departed [facility] June 25, 2009 June 25, 2009 Ana Laura Ríos Referred Medical 8:23pm MD Jonathan Center-Referred Lab Departed [facility] July 09, 2009 July 09, 2009 Ana Laura Ríos Clinical Medical 5:34pm 11:59pm MD Jonathan Center-Laboratory Registered [facility] March 06, Kenyon Munoz [facility] 2009 10:41am PA Walk In [place] Registered [facility] March 12, 2010 Kenyon mclaughlin , [facility] 1:34pm PA [facility] Departed [facility] April 14, 2013 April 14, 2013 Con version Physician/Provi Medical 12:00am Medent mandie Office [facility] Visit rn Assoc in Surgery Departed [facility] November 25, November 25, 2016 Sourav gaston PA-C Physician/Provi Medical 2016 12:00am Hansa [facility] Office Center-[facility] Visit rn Urgent [place] Departed [facility] February 20, February 20, 2017 Juliana elias Physician/Provi Medical 2016 12:00am Medent mandie Office Center[facility] Visit rn [facility]gent [place] Departed [facility] February 20, February 20, 2017 Sr. Di no [facility]- 2016 8:36pm 8:37pm [facility] [place] [facility], [facility] September 08, 2018 null Emergency Medical 1:00pm 2:15pm Center-Emergency Department Departed [facility] January 13, 2019 January 13, 2019 nuparam l Emergency Medical 5:35pm 6:18pm Center-Emergency Department Departed [facility] February 07, 2019 February 07, 2019 nul l Emergency Medical 9:03pm 10:10pm Center-Emergency Department Assessments No Assessments Information Available Functional Status Observation Response Date Recorded Living Situation With Significant Other February 07 9:08pm Living Situation Home September 08, 2018 2:14p m Goals Goals may be documented in an alternate section. Immunizations Immunization Event Date Not Given Dose Number Livestock Buyer Lot Number Vaccine Reason Informatio n Statement (VIS) Detail Tdap September 08 [id number] 2018 Mental Status No Mental Status Information Available Medical Equipment No Medical Equipment Information available Insurance Providers Guarantor YASMANY EUBANKS Address [address] [facility] [address] Contact Info. Home Phone: Payer Policy Id Coverage Id Subscriber's Subscriber Id Effective E xpiration Name Date Date FEP SPENSER [id number] BALA EUBANKS [id number] [place] (DO NOT USE) MEDICAID [id number] YASMANY EUBANKS [id number] [place] S[place]F PAY Self N/A [place] MEDICAID [id number] YASMANY EUBANKS [id number] (DO NOT USE) Plan of Treatment Future Tests Future scheduled test information is unavailable Pending Tests Pending diagnostic test information is unavailable Future Visits Future appointment information is unavailable Referrals to Other Providers Reason for Referral Start Provider Provider Contact Provider Address Referral Date Information Sana Lo Work Phone: Benjy Ortega MD [address] [place] [address] Sana Lo Work Phone: Benjy Ortega MD [address] [place] [address] Sana Lo Work Phone: Benjy Ortega MD [address] [place] [address] Future Procedures Future procedure information is unavailable Future Medications Future medication information is unavailable Patient Instructions Wound Care (DC) Quitting Smoking Social History Smoking Status Status Date of Observation Smokes tobacco daily (finding) February 07, 2019 9:13 pm Observation Status Observation Response Date of Response Alcohol Use Yes February 07, 2019 9 :13pm substance use type marijuana February 07, 2019 9 :13pm Smoking Status Current every day smoker February 07 019 9:13pm Assigned Sex Female Vital Signs Vital Reading Result Reference Range Collection Date/ Time Weight 119.74 kg November 25, 2016 12:27pm Body Temperature 98.9 [degF] 97.6-99.6 November 25, 2016 12:27pm Heart Rate 107 /min 60-100 November 25, 2016 12:27pm Respiratory rate 18 /min -November 25, 2016 12:27pm Oxygen saturation by Pulse 98 % 95-100 [facility] 2016 oximetry 12:27pm BP Systolic 110 [...] by Pulse 98 % 95-100 Dece [place] 2016 3:38pm oximetry BP Systolic 104 [...] February 07 9:05pm Respiratory rate 20 /min 02-28February 07, 2 019 9:05pm Oxygen saturation by Pulse 100 % 95-100 Dece 2018 9:05pm oximetry BP Systolic 134 mm[Hg] 100-140 February 07 9:05pm BP Diastolic 91 mm[Hg] 50-85 February 07 9:05pm
--- OUTSIDE RECORDS SUMMARY | 2021-08-16 23:29 | XMS_ITS | Continuity of Care Document ---
:1990 Author Organization [facility] Address [address] [place] [address] Phone Care Team Providers Name Role Phone [...] Location(s) Arrival/Admit Date Discharge/Depart Date Provider(s) Departed [facility] September 08, 2018 September 08, 2018 2:15pm [facility] Emergency Medical 1:00pm Center-Emergency Department Assessments No Assessments Information Available Functional Status Observation Response Date Recorded Living Situation Home September 08, 2018 2:14p m Goals Acute Goals Wound Care (DC) Quitting Smoking Immunizations Immunization Event Date Not Given Dose Number Recruiter Account Manager Lot Number Vaccine Reason Informatio n Statement (VIS) Detail Tdap September 08, [id number] VIS not gi queta 2019 Mental Status No Mental Status Information Available Medical Equipment No Medical Equipment Information available Insurance Providers Guarantor YASMANY EUBANKS Address [address] [facility] [address] Contact Info. Home Phone: Payer Policy Id Coverage Id Subscriber's Subscriber Id Effective E xpiration Name Date Date FEP SPENSER [id number] BALA Kidd EUBANKS [id number] CROSS (DO NOT USE) MEDICAID OF [id number] YASMANY EUBANKS [id number] [place] SELF PAY Self N/A [place] MEDICAID [id number] YASMANY EUBANKS [id number] (DO NOT USE) Plan of Treatment Future Tests Future scheduled test information is unavailable Pending Tests Pending diagnostic test information is unavailable Future Visits Future appointment information is unavailable Referrals to Other Providers Reason for Referral Start Provider Provider Contact Provider Address Referral Date Information Wally Hood Work Phone: [facility] [address] [place] [address] Future Procedures Future procedure information is unavailable [...] chronic cough...you will need to return to [facility] to have the Nexplanon removed and to discuss alternate methods of control
--- OUTSIDE RECORDS SUMMARY | 2021-08-16 23:29 | XMS_ITS | Encounter Summary ---
:1990 Author Organization [facility] Address [address] [place] [address] Care Team Providers Name Role Phone Jim Morales MD Primary Care Provider Reason for Visit Reason Onset Date Comments Patient Outreach 12/11/2020 Encounter Details Date Type Department Care Team Description 12/11/2020 Telephone [facility] Jim Quezada, Patient Outreach [facility] [address] [facility] [address] [place] [address] [place] [address] [phone] (Wo rk) Social History Tobacco Use Types [...] this encounter Miscellaneous Notes Telephone Encounter - Christina Mckenzie - 12/11/2020 1134 EDT Reason for Call: Patient Outreach Summary/Symptoms: I left a message for Mary Grace to call our office and schedule a follow-up visit with Dr. Morales. She saw him in 02/2019 for Nexplanon removal and reinsertion, then saw Dr. Richmond in March 2019 to discuss her depression and medication management. She has not been back for follow-up since. Please help her arrange an appropriate visit. Onset and Duration? Appointment Offered? Fay MCKENZIE 12/11/2020 11:36 documented in this encounter Plan of Treatment [...] more about your health please v isit: [email or web address]/[email or web address]-If documented as of this encounter Visit Diagnoses Not on filedocumented in this encounter Care Teams Frozen Meat Cutter Relationship Specialty Start Date End Date Jim Morales MD PCP - General Family Medicine - Primary 08/06/[address] [place] [address] [place] [address] documented as of this encounter
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
--- OUTSIDE RECORDS SUMMARY | 2021-08-16 23:29 | XMS_ITS | Continuity of Care Document ---
:1990 Author Organization [facility] Address [address] [place] [address] Phone Care Team Providers Name Role Phone [...] Date Date Ziprasidone Discontinu UNK CAPSULE February [facility] ed 2018 r 25th, 10:54pm 2018 5:32pm Sertraline Active UNK TABLET February 08, 2019 10:54pm Lorazepam Active UNK ORAL February 08, 2019 10:54pm Geodon Discontinu February [facility] ed 2018 r , 10:54pm 2018 5:32pm Marijuana Active February 08, 2019 10:54pm Olanzapine Discontinu MG TABLET February e ed 2018 r , 9:08pm 2018 5:32pm [place] Discontinu ORAL February [facility] ed 2018 r 3rd, 9:18pm 2018 10:14pm [facility], 9:18pm 2018 10:14pm Benztropine Discontinu TABLET February be ed 2018 r 3rd, 9:18pm 2018 10:14pm Lorazepam Discontinu TABLET February [facility] ed 2018 r 3rd, 9:18pm 2018 10:14pm Fluoxetine Discontinu MG CAPSULE February be ed 2018 r 3rd, 9:18pm 2018 10:14pm Hydroxyzine Discontinu CAPSULE February e Pamoate ed 2018 r 3rd, 9:18pm 2018 10:14pm Melatonin Discontinu MG CAPSULE February e ed 2018 r 3rd, 9:18pm 2018 10:14pm Melatonin Discontinu MG CAPSULE February e ed 2018 r 3rd, 9:18pm 2018 10:14pm Cariprazine Discontinu MG CAPSULE February e ed 2018 r 3rd, 9:18pm 2018 10:14pm Risperidone Active 2 MG ORAL DAILY March 01, 2019 5:32pm Olanzapine Active 10 MG ORAL DAILY 06 March DOSIN , REGIMENT: 2019 take 20 mg in 5:33pm AM daily and 10 mg in PM daily Problems Active Problems Medical Problem Onset Date Status 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 Acute bronchitis November 25, 2016 Active Inactive/Resolved Problems Medical Problem Onset Date Status Acute psychosis Resolved UTI (urinary tract infection) Resolved Adjustment disorder with anxiety Resolve d Laceration of index finger of left hand without complication Resolved Chronic cough Resolved Tobacco use disorder Resolved Auditory hallucinations Resolved [...] Blood Count 9.92 4.8-10.8 MA IN LAB, [address] [place] [address] 1000/mm3 [facility] [address] Red Blood Count 4.91 M/mm3 4.20-5.40 [facility], [address] [place] [address] Hemoglobin 14.4 g/dL 12.0-16.0 MAIN LAB, [address] [place] [address] Hematocrit 42.4 % 37-47 MAIN LAB, [address] [place] [address] Mean Corpuscular 86.4 fL 81.0-99.0 [facility], [address] [place] [address] Volume [facility] [address] Mean Corpuscular 29.3 pg 27-31 [facility], [address] [place] [address] [place] [address] Mean Corpuscular 34.0 g/dL 33-37 [facility], [address] [place] [address] Hemoglobin Concent [facility]. [facility] [address] Red Cell 11.9 % 11.5-14.5 MAIN LAB, [address] [place] [address] Distribution [place] [address] Platelet Count 342 140-440 MAIN LAB, [address] [place] [address] 1000/mm3 [facility] [address] Mean Platelet 9.0 fL 7.4-10.4 MAIN L AB, [address] [place] [address] Neutrophils (%) 59.7 % 40.0-72.0 MAIN LAB, [address] [place] [address] (Auto) [facility] [address] Lymphocytes (%) 32.4 % 17-45 MAIN LAB, [address] [place] [address] (Auto) [place] [address] Monocytes (%) 6.6 % 3-11 MAIN L AB, [address] [place] [address] (Auto) [place] [address] Eosinophils (%) 0.5 % 0-3 MAIN LAB, [address] [place] [address] (Auto) [place] [address] Basophils (%) 0.4 % 0-1 MAIN L AB, [address] [place] [address] (Auto) [place] [address] Immature 0.4 % 0-1 MAIN LAB, [address] [place] [address] Granulocyte % [place] [address] (Auto) Neutrophils # 5.93 1.4-6.5 MAIN L AB, [address] [place] [address] (Auto) 1000/mm3 [place] [address] Lymphocytes # 3.21 1.2-3.4 MAIN L AB, [address] [place] [address] (Auto) 1000/mm3 [place] [address] Monocytes # (Auto) 0.65 0.0-0.8 M AIN LAB, [address] [place] [address] 1000/mm3 [place] [address] Eosinophils # 0.05 0.0-0.7 MAIN L AB, [address] [place] [address] (Auto) 1000/mm3 [place] [address] Basophils # (Auto) 0.04 0.0-0.1 M [facility]IN [facility], [address] [place] [address] 1000/mm3 [place] [address] Absolute Immature 0.0 0-1 MA IN LAB, [address] [place] [address] Granulocyte ([place] . [place] [address] Differential Automated MAIN LA B, [address] [place] [address] [place] [address] Urine RBC None seen MAIN LAB, [address] [place] [address] /hpf [facility] [address] Urine RBC 3-5 /hpf MAIN LAB, [address] [place] [address] [place] [address] Urine WBC 20-40 /hpf MAIN LAB, [address] [place] [address] [place] [address] Urine WBC 10-20 /hpf MAIN LAB, [address] [place] [address] Urine Squamous 2+ /hpf MAIN LAB, [address] [place] [address] [place] [address] Urine Squamous 2+ /hpf MAIN LAB, [address] [place] [address] [place] [address] Urine Bacteria 3+ /hpf NONE SEEN MAIN LAB, [address] [place] [address] Urine Bacteria 4+ /hpf NONE SEEN MAIN LAB, [address] [place] [address] Urine Mucus Present MAIN LAB , [address] [place] [address] Urine Mucus Present MAIN LAB , [address] [place] [address] Urine Culture Done Yes URINE M AIN LAB, [address] [place] [address] SPECIMEN [facility] [address] CULTURED Urine Culture Done Yes URINE M AIN LAB, [address] [place] [address] SPECIMEN [facility] [address] CULTURED Urine Negative NEGATIVE MAIN LAB, [address] [place] [address] Test [facility] [address] Sodium Level 138 mmol/L 137-145 MAIN L AB, [address] [place] [address] Potassium Level 3.8 mmol/L 3.6-5.0 [facility], [address] [place] [address] Chloride Level 104 mmol/L 98-107 MAIN LAB, [address] [place] [address] Carbon Dioxide 23 mmol/L 22-30 MAIN LAB, [address] [place] [address] Level [facility] [address] Anion Gap 11 7-16 MAIN LAB, [address] [place] [address] Blood Urea 9 mg/dL 7-17 MAIN LAB, [address] [place] [address] Nitrogen [facility] [address] Creatinine 0.48 mg/dL 0.52-1.04 MAIN LAB , [address] [place] [address] Glomerular > 60 mL/min >60.0 MAIN LA B, [address] [place] [address] Filtration Rate [facility] [address] Calc Glucose Level 97 mg/dL 70-100 MAIN L AB, [address] [place] [address] Calcium Level 9.6 mg/dL 8.4-10.2 MAIN L AB, [address] [place] [address] Calcium Adjusted 9.5 mg/dL 8.4-10.2 [facility], [address] [place] [address] for Albumin [facility] [address] Total Bilirubin 0.4 mg/dL 0.2-1.3 MAIN LAB, [address] [place] [address] Aspartate Amino 20 U/L 14-36 MAIN LAB, [address] [place] [address] Transf (AST/SGOT) [facility] [address] Alanine 20 U/L 9-52 MAIN LAB, [address] [place] [address] [place] [address] (ALT/SGPT) Total Protein 7.3 g/dL 6.3-8.2 MAIN L AB, [address] [place] [address] Albumin 4.4 g/dL 3.5-5.0 MAIN LAB, [address] [place] [address] Alkaline 60 U/L 38-126 MAIN LAB, [address] [place] [address] [place] [address] Urine Methadone Negative Cutoff:200 [facility], [address] [place] [address] Screen ng/[place] [address] Urine Methadone Negative Cutoff:200 [facility], [address] [place] [address] Screen ng/[place] [address] Urine Methadone Negative Cutoff:200 [facility], [address] [facility] Screen ng/[place] [address] Microbiology Results Procedure Source Result Collection Result Result Performin g Date/Time Date/Time Comment Site Urine Culture Ur,Clean Escherichia February MAIN LAB, [address] [place] [address] Catch Coli 2018 [place] [address] 7:27am Urine Culture Ur,Clean Escherichia Peter MAIN LAB, [address] [place] [address] Catch Coli 2018 [place] [address] 7:29am Group A Throat February MAIN LAB, [address] [place] [address] [place] [address] Screen (BRETT) 6:42am Diagnostic Imaging Reports Report Dictated Date/Time Dictated By Status Radiology Report March 06, 2010 11:22am Carlos Castellanos MD completed [facility] RADIOLOGY REPORT PATIENT NAME: YASMANY EUBANKS [...] y and Y views, done at [facility] satellite clinic. 04/09/08 [...] 2010 8:52am Rosemary Tatum MD c ompleted [facility] ULTRASOUND REPORT PATIENT NAME: YASMANY EUBANKS [...] a copy on file here at [facility]? No Bernabe murray 2018 2:16pm Pt has a Living Will? No March 06 0 10:42am Do we have a copy on file here at [facility]? No Bernabe murray 2018 2:16pm Pt has a Power of [place]? No February 10:42am Do we have a copy on file here at [facility]? No Bernabe murray 2018 2:16pm Chief Complaint and Reason for Visit Chief Complaint LAB/ JOINT PAINS Pain CHEST XR INJURY XR Lab XR JT PAIN IN RT SHD finger injury EVIDENTIARY [facility]UC[facility]LE HEADACHE CRISIS [facility] Encounters Encounter Location(s) Arrival/Admit Date Discharge/Depart Provi mandie(s) Date Departed [facility] Conve rsion Physician/Provi Medical 12:00am Medent mandie Office Center-CONV Misc Visit Comp Pain location Departed [facility] May 18, 1998 May 18, 1998 null Emergency Medical 12:00am Center-Intermedia te Care Departed [facility] November 28, November 28, 1998 Julia Gentile Clinical Medical 1998 12:00am 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-DI 12:00am , MD Jarquin Departed [facility] October 01, 2005 October 01, 2005 Ana Laura Ríos Clinical Medical 12:00am MD Jonathan Center-Outpatient Conversion Departed [facility] February 26, February 27, 2008 [address] [facility]-DI 2007 12:00am [facility] Departed [facility] March 12, 2008 March 12, 2008 josy Emergency Medical 12:00am Center-Emergency Department Departed [facility] March 15, 2008 March 15, 2008 Bradford perez [facility] 12:00am , DO Jarquin Departed [facility] April 09, 2008 April 09, 2008 El birch [facility] 12:00am , [facility] Departed [facility] June 25, 2009 June 25, 2009 Ana Laura Ríos Referred Medical 8:23pm MD Jonathan Center-Referred Lab Departed [facility] July 09, 2009 July 09, 2009 Ana Laura Ríos Clinical Medical 5:34pm 11:59pm MD Jonathan Center-Laboratory Registered [facility] March 06, Kenyon Munoz [facility] 2009 10:41am APRIL Walk In Ngoc Registered [facility] March 12, 2010 Kenyon mcl[address] [facility] 1:34pm APRIL [facility] Departed [facility] April 14, 2013 April 14, 2013 Con version Physician/Provi Medical 12:00am Medent mandie Office [facility] Visit rn Assoc in Surgery Departed [facility] November 25, November 25, 2016 Sourav gaston PA-C Physician/Provi Medical 2016 12:00am Hansa [facility] Office [facility] Visit rn [place]gent [place] Departed [facility] February 20, February 20, 2017 Juliana elias Physician/Provi Medical 2016 12:00am Medent mandie Office [facility] Visit rn [place] [place] Departed [facility] February 20, February 20, 2017 Sr. Di no [facility]- 2016 8:36pm 8:37pm [facility] [place] [facility], 2018 September 08, 2018 null Emergency Medical 1:00pm 2:15pm Center-Emergency Department Departed [facility] January 13, 2019 January 13, 2019 nu l Emergency Medical 5:35pm 6:18pm Center-Emergency Department Departed [facility] February 07, 2019 February 07, 2019 nul l Emergency Medical 9:03pm 10:10pm Center-Emergency Department Departed [facility] February 08, 2019 February 08, 2019 nu l Emergency Medical 6:44am 1:14pm Center-Emergency Department Departed [facility] February 08, 2019 February 09, 2019 nul l Emergency Medical 10:48pm 10:17am Center-Emergency Department Departed [facility] March 01March 01, 2019 [facility] Emergency Medical 2018 5:15am 6:24pm Center-Emergency Department Assessments No Assessments Information Available Functional Status Observation Response Date Recorded Living Situation Home March 01, 2019 6:22pm Living Situation Home February 08, 2019 1 :13pm Living Situation With Significant Other February 07 9:08pm Living Situation Home February 08, 2019 1 0:55pm Living Situation Home September 08, 2018 2:14p m Goals Goals may be documented in an alternate section. Immunizations Immunization Event Date Not Given Dose Number Veterinary Poultry Inspector Lot Number Vaccine Reason Informatio n Statement (VIS) Detail Tdap September 08 [id number] 2018 Mental Status Observation Response Date Recorded Comprehension Ability Unable to Comprehend February 08 7:46am Comprehension Ability Understands Concepts February 08 11:12pm Medical Equipment No Medical Equipment Information available Insurance Providers Guarantor YASMANY EUBANKS Address [address] [address] Contact Info. Home Phone: Payer Policy Id Coverage Id Subscriber's Subscriber Id Effective E xpiration Name Date Date NOLA DUEÑAS [id number] BALA EUBANKS [id number] CROSS (DO NOT USE) [place] [id number] YASMANY EUBANKS [id number] [place] SELF PAY Self N/A [place] MEDICAID [id number] YASMANY EUBANKS [id number] (DO NOT USE) Plan of Treatment Future Tests Future scheduled test information is unavailable Pending Tests Pending diagnostic test information is unavailable Future Visits Future appointment information is unavailable Referrals to Other Providers Reason for Referral Start Provider Provider Contact Provider Address Referral Date Information Sana Lo Work Phone: Benjy Ortega MD [address] [place] [address] Sana Lo Work Phone: Benjy Ortega MD [address] [place] [address] Sana Lo Work Phone: Benjy Ortega MD [address] [place] [address] Sana Lo Work Phone: Benjy Ortega MD [address] [place] [address] Sana Lo Work Phone: Benjy Ortega MD [address] [place] [address] Sana Lo Work Phone: Benjy Ortega MD [address] [place] [address] [place] [address] Future Procedures Future procedure information is unavailable Future Medications Future medication information is unavailable Patient Instructions Wound Care (DC) Quitting Smoking Acute Psychosis (DC) Social History Smoking Status Status Date of Observation Smokes tobacco daily (finding) March 01, 2019 5:5 4am Observation Status Observation Response Date of Response Alcohol Use Yes March 01, 2019 5:54am substance use type marijuana March 01, 2019 5:54am Smoking Status Current every day smoker March 01, 2019 5:54am Assigned Sex Female Vital Signs Vital Reading Result Reference Range Collection Date/ Time Weight 119.74 kg November 25, 2016 12:27pm Body Temperature 98.9 [degF] 97.6-99.6 November 25, 2016 12:27pm Heart Rate 107 /min 60-100 November 25, 2016 12:27pm Respiratory rate 18 /min -November 25, 2016 12:27pm Oxygen saturation by Pulse 98 % 95-100 [facility]2016 oximetry 12:27pm BP Systolic 110 mm[Hg] [...] 6:47am BP Diastolic 93 mm[Hg] 50-85 February 08 6:47am Weight 116.57 kg February 08 10:51pm Body Temperature 97.5 [degF] 97.6-99.6 February 09, 2 019 9:48am Heart Rate 73 /min 60-100 February 09 9:48am Respiratory rate 18 /min -February 08, 2 019 10:51pm Oxygen saturation by Pulse 99 % 95-100 [facility] [place] 2018 9:48am oximetry BP Systolic 114 mm[Hg] 100-140 February 09 9:48am BP Diastolic 71 mm[Hg] 50-85 February 09 9:48am Weight 113.39 kg March 01, 2 [...]
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
--- OUTSIDE RECORDS SUMMARY | 2021-08-16 23:29 | XMS_ITS | Encounter Summary ---
:1990 Author Organization [facility] Address [address] [place] [address] Care Team Providers Name Role Phone Sana Muhammad MD Primary Care Provider Reason for Visit Reason Onset Date Comments Patient Outreach 05/21/2020 Encounter Details Date Type Department Care Team Description 05/21/2020 Telephone [facility] Family Sana Muhammad MD Patient Outreach Medicine - [address] [address] [place], [place] [id number] [phone] Social History Tobacco Use Types Packs/Day Years [...] Notes Telephone Encounter - Ese Hua - 05/21/2020 1358 EDT L/m message for patient to return call to make appt for a physical or f/u appt documented in this encounter Plan of Treatment Not on filedocumented as of this encounter Goals Goal Patient Goal Associated Recent Patient-Stated? 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
--- OUTSIDE RECORDS SUMMARY | 2021-08-16 23:29 | XMS_ITS | Continuity of Care Document ---
:1990 Author Organization [facility] Address [address] [place] [address] Phone Care Team Providers Name Role Phone [...] Active MG TABLET February 07, 2019 9:08pm [place] Discontinue ORAL February Carbonate d 2018, 9:18pm [...] Urine RBC None seen MAIN LAB, [address] [facility] /hpf [facility] [address] Urine WBC 20-40 /hpf MAIN LAB, [address] [facility] [address] Urine 2+ /hpf MAIN LAB, [address] [facility] Squamous [facility] [address] Epithelial Cells Urine 4+ /hpf NONE SEEN MAIN LAB, [address] [facility] Bacteria [facility] [address] Urine Mucus Present MAIN LAB , [address] [facility] [address] Urine Culture Yes URINE MAIN L AB, [address] [facility] [place] [address] CULTURED Urine Negative NEGATIVE MAIN LAB, [address] [facility] [place] [address] Test Microbiology Results Procedure Source Result Collection Result Result Performin g Date/Time Date/Time Comment Site Group A Throat February MAIN LAB, [address] [facility] Streptococcus [address] [place] [address] Screen (BRETT) 6:42am Diagnostic Imaging Reports Report [...] Grashe y and Y views, done at [facility] satellite clinic. 04/09/08 MRI of right shoulder. [...] [facility]? No Bernabe murray 2018 2:16pm Pt has a Living Will? No March 06 0 10:42am Do we have a copy on file here at [facility]? No Bernabe murray 2018 2:16pm Pt has a Power of Student Worker? No February 10:42am Do we have a copy on file here at [facility]? No Bernabe murray 2018 2:16pm Chief Complaint and Reason for Visit Chief Complaint LAB/ JOINT PAINS Pain CHEST XR INJURY XR Lab XR JT PAIN IN RT SHD finger injury EVIDENTIARY LUCILLE HEADACHE Encounters Encounter Location(s) Arrival/Admit Date Discharge/Depart Provi mandie(s) Date Departed [facility] Physician/Provi Medical 12:00am Medent mandie Office Center-CONV Misc Visit Comp Pain location Departed [facility] May 18, 1998 May 18, 1998 [facility] Emergency Medical 12:00am Center-Intermedia te Care Departed [facility] November 28, November 28, 1998 [facility] 1998 12:00am TIRE CHANGER Center-Outpatient Conversion Departed [facility] October 12, 2001 October 12, 2001 Vaughn Roca [facility]-DI 12:00am MD Synergy Departed [facility] October 01, 2005 October 01, 2005 Ana Laura Ríos Clinical Medical 12:00am MD Jonathan Center-Outpatient Conversion Departed [facility] February 26, February 27, 2008 Sheryl Acevedo [facility] 2007 12:00am [facility] Departed [facility] March 12, 2008 March 12, 2008 null Emergency Medical 12:00am Center-Emergency Department Departed [facility] March 15, 2008 March 15, 2008 Bradford chris [facility]-DI 12:00am , DO Synergy Departed [facility] April 09, 2008 April 09, 2008 [place] [facility] 12:00am , DO [facility] Departed [facility] June 25, 2009 June 25, 2009 Ana Laura Ríos Referred Medical 8:23pm MD Jonathan Center-Referred Lab Departed [facility] July 09, 2009 July 09, 2009 Ana Laura Ríos Clinical Medical 5:34pm 11:59pm MD Jonathan Center-Laboratory Registered [facility] March 06, Kenyon Munoz [facility] 2009 10:41am PA Walk In [place] Registered [facility] March 12, 2010 Kenyon mclaughlin , [facility] 1:34pm PA [facility] Departed [facility] April 14, 2013 April 14, 2013 Con version Physician/Provi Medical 12:00am Medent mandie Office Center-[facility] Visit rn Assoc in Surgery Departed [facility] November 25, November 25, 2016 Sourav gaston PA-C Physician/Provi Medical 2016 12:00am Hans[facility] Office Center-[facility] Visit rn Urgent [place] Departed [facility] February 20, February 20, 2017 Juliana elias Physician/Provi Medical 2016 12:00am Medent mandie Office Center-[facility] Visit rn Urgent [place] Departed [facility] February 20, February 20, 2017 Sr. Di no [facility] 2016 8:36pm 8:37pm [facility] [place] [facility] 08, 2018 September 08, 2018 null Emergency Medical 1:00pm 2:15pm Center-Emergency Department Departed [facility] January 13, 2019 January 13, 2019 [email or web address] l Emergency Medical 5:35pm 6:18pm Center-Emergency Department Departed [facility] February 07, 2019 February 07, 2019 nul l Emergency Medical 9:03pm 10:10pm Center-Emergency Department Assessments No Assessments Information Available Functional Status Observation Response Date Recorded Living Situation With Significant Other February 07 9:08pm Living Situation Home September 08, 2018 2:14p m Goals Goals may be documented in an alternate section. Immunizations Immunization Event Date Not Given Dose Number Local Delivery Truck Driver Lot Number Vaccine Reason Informatio n Statement (VIS) Detail Tdap September 08 [id number] Mental Status No Mental Status Information Available Medical Equipment No Medical Equipment Information available Insurance Providers Guarantor YASMANY EUBANKS Address [address] [facility] [address] Contact Info. Home Phone: Payer Policy Id Coverage Id Subscriber's Subscriber Id Effective E xpiration Name Date Date FEP SPENSER [id number] BALA EUBANKS [id number] CROSS (DO NOT USE) MEDICAID [id number] YASMANY EUBANKS [id number] [place] Self N/A [place] MEDICAID [id number] YASMANY EUBANKS [id number] (DO NOT USE) Plan of Treatment Future Tests Future scheduled test information is unavailable Pending Tests Pending diagnostic test information is unavailable Future Visits Future appointment information is unavailable Referrals to Other Providers Reason for Referral Start Provider Provider Contact Provider Address Referral Date Information Sana Lo Work Phone: Benjy Ortega MD [address] [place] [address] Sana Lo Work Phone: Benjy Ortega MD [address] [place] [address] Sana Lo Work Phone: Benjy Ortega MD [address] [place] [address] Future Procedures Future procedure information is unavailable [...] Pulse 98 % 95-100 [facility] 2016 oximetry 12:27pm BP Systolic 110 [...]
--- OUTSIDE RECORDS SUMMARY | 2021-08-16 23:29 | XMS_ITS | Encounter Summary ---
:1990 Author Organization [facility] Address [address] [place] [address] Care Team Providers Name Role Phone Sana Muhammad MD Primary Care Provider Reason for Visit Reason Comments Vaginal Discharge I think I had a miscarriage onset 1 week ago, + nausea, I feel sick weakness, + vagin al discharge (brown) + sexually active, no + test Psychiatric Evaluation Pt states she is in crisis a nd needs to be evaluated. Encounter Details Date Type Department Care Team Description 04/03/2019 - Emergency [facility] Simeon Hernandez PA-C Vagina bleeding 04/04/2019 Emergency Department [address] [place] [address] (Prim pawan Dx) - [facility] [address] [place] [address] Pavilion, [place] [phone] (Wo rk) Social History Tobacco Use Types Packs/Day Years Used Date Current Every Day Smoker 1 10 Smokeless Tobacco: Never Used Alcohol Use Standard Drinks/Week Comments Yes 3 (1 standard drink = 0.6 oz pure alcoho l) occ Sex Assigned at Date Recorded Not on file documented as of this encounter Last Filed Vital Signs Vital Sign Reading Time Taken Comments Blood Pressure 119/81 04/04/2019 0327 EST Pulse 88 04/04/2019 0327 EST Temperature 36.8 ??C (98.2 ??F) 04/03/2019 2302 EST Respiratory Rate 18 04/04/2019 0327 EST Oxygen Saturation 100% 04/04/2019 0327 EST Inhaled Oxygen Concentration - - Weight 113.4 kg (250 lb) 04/03/2019 2302 EST Height - - Body Mass Index 40.32 03/17/2019 1603 EST documented in this encounter [...] documented as of this encounter Discharge Instructions Apollo Arnold PA - 04/04/2019 Drink plenty of fluids, eat a well-balanced diet and get 8 hours of sleep at night. It is very possible the light brown, slight vaginal bleeding you are noting is a period. You have no abnormalities on your exam or work-up. Please follow-up with primary care, as needed. documented in this encounter Medications at Time [...] Code Departure Means Destination Home or Self [place] documented in this encounter ED Notes Ellen Noland RN - 04/04/2019 0329 EST Pt tolerated PO intake, denies nausea, no vomiting noted. No change in pt condition since the last time MD assessed. Pt to follow up with PCP and return with any change in symptoms. AVS completed with pt, pt verbalizes understanding. Pt is a&ox4, VSS, no complaints of SOB/CP, pt ambulates out of facility. Ellen knight RN - 04/04/2019 0321 EST Report received from Sara DUONG. Silva yolanda and crackers offered per PA orders. Will monitor. Dominga Reed RN - 04/04/2019 0236 EST Lights dimmed for patient, who continues to rest in bed. NAD pollo Hernandez PA - 04/04/2019 0212 EST DOS: 04/03/2019 Chief Complaint Patient presents with ??? Vaginal Discharge I think I had a miscarriage onset 1 week ago, + nausea, I feel sick weakness, + vaginal discharge (brown) + sexually active, no + test ??? Psychiatric Evaluation Pt states she is in crisis and needs to be evaluated. HPI HPI I, Katherine Peña, am scribing for Apollo Hernandez PA while she is personally performing the service. Katherine Peña 04/04/2019 2:14 Mary Grace Harris is a 28 y.o. female with a history of adjustment mood disorder, auditory/visual hallucinations, fibromyalgia, chronic pain syndrome, asthma, depression and anxiety who was recently discharged home after psychiatric evaluation 03/18/19. Pt presents tonight with 1 week of generalized weakness and groin pain. Pt endorses associated lightheadedness, stating she feels like she is going to pass out. Pt has been eating and drinking normally. Pt says she was 1 week ago and is concerned she may be having a miscarriage. This past week she has had brown vaginal discharge. She describes groin pain localized to the area between her lower abdomen and vaginal area. Pt says her next menstrual period is sometime this month. She denies recent fever, chills and cough or cold symptoms. Denies dysuria or difficulty urinating. Review of Systems Review of Systems The patient's past medical, family and social history was reviewed and updated as needed. Allergies Allergen Reactions ??? Haldol [Haloperidol Lactate] paralysis ??? Paxil [Paroxetine Hcl] Nausea And Vomiting Vital Signs Vitals Reassessment?: Yes Temp: 36.8 ??C (98.2 ??F) Temp src: Oral Pulse: 105 Heart Rate: 97 BPM Resp: 16 SpO2: 97 % BP: 112/67 BP Device: BP Machine BP Patient Position: Sitting BP Cuff Location: Right arm O2 Device: None (Room air) Physical Exam Constitutional: She is oriented to person, place, and time. She appears well- developed and well-nourished. HENT: Head: Normocephalic and atraumatic. Right Ear: External ear normal. Left Ear: External ear normal. Nose: Nose normal. Mouth/Throat: Oropharynx is clear and moist. Eyes: Pupils are equal, round, and reactive to light. EOM are normal. Right eye exhibits no discharge. Left eye exhibits no discharge. Neck: Normal range of motion. Neck supple. No tracheal deviation present. Cardiovascular: Normal rate, regular rhythm, normal heart sounds and intact distal pulses. Pulmonary/Chest: Effort normal and breath sounds normal. No respiratory distress. She has no wheezes. Abdominal: Soft. There is no tenderness. Genitourinary: Pelvic exam was performed with patient supine. There is no rash or tenderness on the right labia. There is no rash or tenderness on the left labia. Genitourinary Comments: Declined. Musculoskeletal: Normal range of motion. Neurological: She is alert and oriented to person, place, and time. She has normal strength. No sensory deficit. Skin: Skin is warm. No rash noted. Psychiatric: She has a normal mood and affect. Nursing note and vitals reviewed. RESULTS EKG orders: None Radiology orders: None Procedures ED COURSE A medical screening exam was performed Patient is here stating that she has had very light brown spotting of the past week. She states thatshe thinks in the past several weeks she had a miscarriage but does not think that this is necessarily her., She says she is not sure. She has some very mild pelvic cramping as if she was . She declines a full pelvic exam however on external exam there are no abnormalities including no evidence of bleeding. UPT is negative. Urine negative. Fingerstick 93 She states that she had felt fatigued over the past week but otherwise had no acute findings on exam. Patient continues to fall back asleep and appears very comfortable in bed She is eating and drinking, asking for food here. abdomen is soft and nontender, will discharge Final diagnoses: Vagina bleeding DISPOSITION: Discharged The patient's pain was managed [...] Condition at departure from the Emergency Department: Improved PCP: Sana Pérez was available for supervision. 04/04/2019 3:24 No flowsheet data found. Dominga Maddox RN - 04/04/2019 0135 EST Pt states I just feel really run down and tired. Pt resting in bed on her side with head covered in blanket. Pt also concerned she may be getting sick Malik Lennon RN - 04/03/2019 2327 EST Pt comes back to triage room, crying stating she needs to be seen. Pt told that we were waiting for a room with a injection operator bed and as soon as a room opens up we will bring her back. Pt insist that she needsto be seen. Pt crying and stating her head hurts, her stomach hurts, her uterus hurts. Pt keeps flicking her hair. Pt is sating 100 % at this time, BP 119/51. Pt comforted and sent back to the waiting room. Pt sitting in front of triage room, pt no longer crying. documented in this encounter Plan of Treatment [...] more about your health please v isit: [email or web address] documented as of this encounter Procedures Procedure Name Priority Date/Time Associated Comments Diagnosis POCT GLUCOSE, Routine 04/04/2019 3:18 EST Results for this INTERFACED procedure are i n the results section. POCT URINE DIPSTICK, STAT 04/04/2019 2:32 EST Results for this CLINITEK procedure are i n the results section. POCT TEST, STAT 04/04/2019 2:31 EST Results for this CLINITEK procedure are i n the results section. POCT CSN BARCODE STAT 04/04/2019 2:27 EST Resu lts for this URINE PREG TEST procedure ar e in the results section. POCT TEST, STAT 04/04/2019 2:27 EST Results for this CLINITEK ORDER procedure are in the results section. POCT CSN BARCODE STAT 04/04/2019 2:27 EST Resu lts for this URINE DIPSTICK procedure are in the results section. POCT URINE CLINITEK STAT 04/04/2019 2:27 EST R esults for this (DIPSTICK) - DOES procedure are in NOT REFLEX the results section. documented in this encounter Results POCT GLUCOSE, GLUCOMETER (04/04/2019 3:18 EST) Pathologist Francisco Glucose, POC 93 70 - 100 [facility] mg/dL LABORATORY linux administrator ID [id number] [facility] LABORATORY SERVICES HN LAB POC COMMENT Test Performed by [facility] AYDEE Walsh (GLUCOSE) Nursing Services LABORATORY SERVICES Specimen Blood - Capillary blood (substance) Performing Organization Address [facility]/State/ZIP Code Phon e Number [facility] LABORATORY [address] [place] [address] SERVICES POCT URINE DIPSTICK, CLINITEK (04/04/2019 2:32 EST) Pathologist Francisco Color, UA Yellow Yellow [facility] LABORATORY SERVICES Clarity, UA Clear Clear [facility] LABORATORY SERVICES Glucose, UA Negative Negative mg/dL [facility] LABORATORY SERVICES Bilirubin, UA Negative Negative [facility] LABORAT[facility] SERVICES Ketones, UA Negative Negative mg/dL [facility] LABORATORY SERVICES Specific Warner, 1.025 1.001 - 1.[address] [facility] LABORATORY SERVICES Blood, UA Negative Negative [facility] LABORATORY SERVICES pH, UA 5.5 <=8 [facility] LABORATORY SERVICES Protein, UA Negative Negative mg/dL [facility] LABORATORY SERVICES Urobilinogen, UA 0.2 0.2 - 1.0 EU/dL [facility] LABORATORY SERVICES Nitrite, UA Negative Negative [facility] LABORATORY SERVICES Leuk Esterase Negative Negative [facility] LABORATORY linux administrator ID [id number] [facility] LABORATORY SERVICES HN LAB COMMENT Test performed at [facility] (CLINITEK, UR) Emergency CENTER LABORATORY Department SERVICES Specimen Urine Performing Organization Address [facility]/ZIP Code Phon e Number [facility] LABOR[facility] [address] [place] [address] SERVICES POCT TEST, CLINITEK (04/04/2019 2:31 EST) UPT Result Negative Negative [facility] LABORATORY linux administrator ID [id number] [facility] LABORATORY SERVICES HN LAB COMMENT Test performed at [facility] (CLIN[facility], UPT) Emergency LABORATORY DepartmentComment: SERVICES False negative results may occur in women who are beyond 5-8 weeks gestation. Diagnosis of should be based on a correlation of test results with typical clinical signs and symptoms. Specimen Urine - Urine (substance) Performing Organization Address [facility]/ZIP Code Phon e Number [facility]OR[facility] [address] [place] [address] SERVICES POCT CSN BARCODE URINE DIPSTICK (04/04/2019 2:27 EST) Pathologist Sig nature Hold Hold [facility] LABORATOR Y SERVICES Specimen Urine Performing Organization Address [facility]/ZIP [facility] Phon e Number [facility] LABOR[facility]ORY [address] [place] [address] SERVICES POCT CSN BARCODE URINE PREG TEST (04/04/2019 2:27 EST) Pathologist Sig nature Hold Hold [facility] LABORATOR Y SERVICES Specimen Urine - Urine (substance) Performing Organization Address [facility] Phon e [facility] LABORATORY [address] [place] [address] SERVICES documented in this encounter Visit Diagnoses Diagnosis Vagina bleeding - Primary Other specified noninflammatory disorder of vagina documented in this encounter Discontinued Medications Medication Sig Discontinue Reason Start Date End Date levonorgestrel (PLAN B Take 1 Tab by 01/09/201903/09 ONE-STEP) 1.5 mg mouth once for 1 tabletIndications: dose. Encounter for contraceptive management, unspecified type documented as of this encounter Care Teams Heel Builder Relationship Specialty Start Date End Date Sana Muhammad MD PCP - General 12/02/16 08/05/20 documented as of this encounter
--- OUTSIDE RECORDS SUMMARY | 2021-08-16 23:29 | XMS_ITS | Continuity of Care Document ---
:1990 Author Organization [facility] Address [address] [place] [address] Phone Care Team Providers Name Role Phone [...] Active MG TABLET February 07, 2019 9:08pm [place] Discontinue ORAL February Carbonate d 2018, 9:18pm [...] Site Urine RBC 3-5 /hpf MAIN LAB, [address] [place] [address] [place] [address] Urine RBC None seen MAIN LAB, [address] [place] [address] /[place] [address] Urine WBC 10-20 /hpf MAIN LAB, [address] [place] [address] [place] [address] Urine WBC 20-40 /hpf MAIN LAB, [address] [place] [address] [place] [address] Urine 2+ /hpf MAIN LAB, [address] [place] [address] [place] [address] Epithelial Cells Urine 2+ /hpf MAIN LAB, [address] [place] [address] [place] [address] Epithelial Cells Urine 4+ /hpf NONE SEEN MAIN LAB, [address] [place] [address] [place] [address] Urine 3+ /hpf NONE SEEN MAIN LAB, [address] [place] [address] [place] [address] Urine Mucus Present MAIN LAB , [address] [place] [address] [place] [address] Urine Mucus Present MAIN LAB , [address] [place] [address] [place] [address] Urine Culture Yes URINE MAIN L AB, [address] [place] [address] [place] [address] CULTURED Urine Culture Yes URINE MAIN L AB, [address] [place] [address] [place] [address] CULTURED Urine Negative NEGATIVE MAIN LAB, [address] [place] [address] [place] [address] Test Urine Negative Cutoff:200 MAIN LAB, [address] [place] [address] Methadone ng/[place] [address] Screen Urine Negative Cutoff:200 MAIN LAB, [address] [place] [address] Methadone ng/[place] [address] Screen Microbiology Results Procedure Source Result Collection Result Result Performin g Date/Time Date/Time Comment Site Urine Culture Ur,Clean Escherichia Peter MAIN LAB, [address] [place] [address] Catch Coli 2018 [place] [address] 7:27am Urine Culture Ur,Clean Escherichia Peter MAIN LAB, [address] [place] [address] Catch Coli 2018 [place] [address] 7:29am Group A Throat Peter MAIN LAB, [address] [place] [address] [place] [address] Screen (BRETT) 6:42am Diagnostic Imaging Reports Report Dictated Date/Time Dictated By Status Radiology Report March 06, 2010 11:22am Carlos Castellanos MD completed [facility] RADIOLOGY REPORT PATIENT NAME: YASMANY EUBANKS [...] Grashe y and Y views, done at [facility] clinic. 04/09/08 MRI of right shoulder. FINDINGS: [...] 2010 8:52am Rosemary Tatum MD c ompleted [facility] ULTRASOUND REPORT PATIENT NAME: YASMANY EUBANKS [...] have a copy on file here [place] [facility] No J 2018 2:16pm Pt has a Living Will? No March 06, 0 10:42am Do we have a copy on file here at [facility]? No J 2018 2:16pm Pt has a Power of Tumbler Plater? No February 10:42am Do we have a copy on file here at [facility]? No J 2018 2:16pm Chief Complaint and Reason for Visit Chief Complaint LAB/ JOINT PAINS Pain CHEST XR INJURY XR Lab XR JT PAIN IN RT SHD finger injury EVIDENTIARY LUCILLE HEADACHE CRISIS MENTAL HEALTH Encounters Encounter Location(s) Arrival/Admit Date Discharge/Depart Provi mandie(s) Date Departed [facility] Conve rsion Physician/Provi Medical 12:00am Medent mandie Office Center-CONV Misc Visit Comp Pain location Departed [facility] May 18, 1998 May 18, 1998 null Emergency Medical 12:00am Center-Intermedia te Care Departed [facility] November 28, November 28, 1998 Julia Gentile Clinical Medical 1998 12:00am SHIVANI Center-Outpatient Conversion Departed [facility] October 12, 2001 October 12, 2001 Vaughn Roca [facility]-DI 12:00am , MD Jarquin Departed [facility] October 01, 2005 October 01, 2005 Ana Laura Ríos Clinical Medical 12:00am MD Jonathan Center-Outpatient Conversion Departed [facility] February 26February 27, 2008 Sheryl Acevedo [facility] 2007 12:00am [facility] Departed [facility] March 12, 2008 March 12, 2008 josy Emergency Medical 12:00am Center-Emergency Department Departed [facility] March 15, 2008 March 15, 2008 Bradford perez [facility]-DI 12:00am , DO Synergy Departed [facility] April 09, 2008 April 09, 2008 El birch [facility]-DI 12:00am , DO [facility] Departed [facility] June 25, 2009 June 25, 2009 Ana Laura Ríos Referred Medical 8:23pm MD Jonathan Center-Referred Lab Departed [facility] July 09, 2009 July 09, 2009 Ana Laura Ríos Clinical Medical 5:34pm 11:59pm MD Jonathan Center-Laboratory Registered [facility] March 06, Kenyon Munoz [facility] 2009 10:41am APRIL Walk In [place] Registered [facility] March 12, 2010 Kenyon mclaughlin [facility] 1:34pm PA [facility] Departed [facility] April 14, 2013 April 14, 2013 Con version Physician/Provi Medical 12:00am Medent mandie Office Center-[facility] Visit rn Assoc in Surgery Departed [facility] November 25, November 25, 2016 Sourav gaston PA-C Physician/Pro[facility] 2016 12:00am Hansa mandie Office Center-[facility] Visit rn Urgent [place] Departed [facility] February 20, February 20, 2017 Juliana elias Physician/[facility] 2016 12:00am Medent mandie Office Center-[facility] Visit rn Urgent [place] Departed [facility] February 20, February 20, 2017 Sr. Di no [facility]- 2016 8:36pm 8:37pm [facility] [place] Departed [facility] September 08, 2018 September 08, 2018 [facility] Emergency Medical 1:00pm 2:15pm Center-Emergency Department Departed [facility] January 13, 2019 January 13, 2019 nu l Emergency Medical 5:35pm 6:18pm Center-Emergency Department Departed [facility] February 07, 2019 February 07, 2019 nu l Emergency Medical 9:03pm 10:10pm Center-Emergency Department Departed [facility] February 08, 2019 February 08, 2019 nu l Emergency Medical 6:44am 1:14pm Center-Emergency Department Departed [facility] February 08, 2019 February 09, 2019 [...] Immunization Event Date Not Given Dose Number Laundrette Owner Lot Number Vaccine Reason Informatio n Statement (VIS) Detail Tdap September 08 [id number] Mental Status Observation Response Date Recorded Comprehension Ability Unable to Comprehend February 08 7:46am Comprehension Ability Understands Concepts February 08 11:12pm Medical Equipment No Medical Equipment Information available Insurance Providers Guarantor YASMANY EUBANKS Address [address] [facility] [address] Contact Info. Home Phone: Payer Policy Id Coverage Id Subscriber's Subscriber Id Effective E xpiration Name Date Date NOLA DUEÑAS [id number] BALA EUBANKS [id number] CROSS (DO NOT USE) MEDICAID [id number] YASMANY EUBANKS [id number] [place] SELF PAY Self N/A [place] MEDICAID [id number] YASMANY EUBANKS [id number] (DO NOT USE) Plan of Treatment Future Tests Future scheduled test information is unavailable Pending Tests Pending diagnostic test information is unavailable Future Visits Future appointment information is unavailable Referrals to Other Providers Reason for Referral Start Provider Provider Contact Provider Address Referral Date Information Sana Lo Work Phone: Benjy Ortega MD [address] [place] [address] Sana Lo Work Phone: Benjy Ortega MD [address] [place] [address] [place] [address] Sana Lo Work Phone: Benjy Ortega MD [address] [place] [address] [place] [address] Sana Lo Work Phone: Benjy Ortega MD [address] [place] [address] [place] [address] Sana Lo Work Phone: Benjy Ortega MD [address] [place] [address] [place] [address] Future Procedures Future procedure information is unavailable [...] Oxygen saturation by Pulse 98 % 95-100 [facility] 2016 oximetry 12:27pm BP Systolic 110 [...]
--- OUTSIDE RECORDS SUMMARY | 2021-08-16 23:29 | XMS_ITS | Continuity of Care Document ---
:1990 Author Organization [facility] Address [address] [place] [address] Phone Care Team Providers Name Role Phone [...] Date Date Ziprasidone Discontinu UNK CAPSULE February [facility] ed 2018 r 25th, 10:54pm 2018 5:32pm Sertraline Active UNK TABLET February 08, 2019 10:54pm Lorazepam Active UNK ORAL February 08, 2019 10:54pm Geodon Discontinu February [facility] ed 2018 r , 10:54pm 2018 5:32pm Marijuana Active February 08, 2019 10:54pm Olanzapine Discontinu MG TABLET February e ed 2018 r , 9:08pm 2018 5:32pm [place] Discontinu ORAL February [facility] ed 2018 r 3rd, 9:18pm 2018 10:14pm Trazodone [facility] r 3rd, 9:18pm 2018 10:14pm Benztropine Discontinu TABLET February be ed 2018 r 3rd, 9:18pm 2018 10:14pm Lorazepam Discontinu TABLET February [facility] ed 2018 r 3rd, 9:18pm 2018 10:14pm [...] Blood Count 9.92 4.8-10.8 MA IN LAB, [address] [place] [address] 1000/mm3 [facility] [address] Red Blood Count 4.91 M/mm3 4.20-5.40 MARIA C N LAB, [address] [place] [address] Hemoglobin 14.4 g/dL 12.0-16.0 MAIN LAB, [address] [place] [address] Hematocrit 42.4 % 37-47 MAIN LAB, [address] [place] [address] Mean Corpuscular 86.4 fL 81.0-99.0 MARIA C N LAB, [address] [place] [address] [facility] [address] Mean Corpuscular 29.3 pg 27-31 MARIA C N LAB, [address] [place] [address] [place] [address] Mean Corpuscular 34.0 g/dL 33-37 MARIA C N LAB, [address] [place] [address] Hemoglobin Concent [facility] [address] Red Cell 11.9 % 11.5-14.5 MAIN LAB, [address] [place] [address] Distribution Width [place] [facility] [place] [address] Platelet Count 342 140-440 MAIN LAB, [address] [place] [address] 1000/mm3 [facility] [address] Mean Platelet 9.0 fL 7.4-10.4 MAIN L AB, [address] [place] [address] Neutrophils (%) 59.7 % 40.0-72.0 MAIN LAB, [address] [place] [address] (Auto) [facility] [address] Lymphocytes (%) 32.4 % 17-45 MAIN LAB, [address] [place] [address] (Auto) [place] [address] Monocytes (%) 6.6 % 3-11 MAIN L AB, [address] [place] [address] (Auto) [place] [address] Eosinophils (%) 0.5 % 0-3 MAIN LAB, [address] [place] [address] (Auto) [place] [address] Basophils (%) 0.4 % 0-1 MAIN L AB, [address] [place] [address] (Auto) [place] [address] Immature 0.4 % 0-1 MAIN LAB, [address] [place] [address] Granulocyte % [facility] [address] (Auto) Neutrophils # 5.93 1.4-6.5 MAIN L AB, [address] [place] [address] (Auto) 1000/mm3 [place] [address] Lymphocytes # 3.21 1.2-3.4 MAIN L AB, [address] [place] [address] (Auto) 1000/mm3 [place] [address] Monocytes # (Auto) 0.65 0.0-0.8 M AIN LAB, [address] [place] [address] 1000/mm3 [place] [address] Eosinophils # 0.05 0.0-0.7 MAIN L AB, [address] [place] [address] (Auto) 1000/mm3 [place] [address] Basophils # (Auto) 0.04 0.0-0.1 M AIN LAB, [address] [place] [address] 1000/mm3 [place] [address] Absolute Immature 0.0 0-1 MA IN LAB, [address] [place] [address] Granulocyte (auto . [place] [place] [address] Differential Automated MAIN LA B, [address] [place] [address] [place] [address] Urine RBC None seen MAIN LAB, [address] [place] [address] /hpf [facility] [address] Urine RBC 3-5 /hpf MAIN LAB, [address] [place] [address] [place] [address] Urine WBC 20-40 /hpf MAIN LAB, [address] [place] [address] [place] [address] Urine WBC 10-20 /hpf MAIN LAB, [address] [place] [address] Urine Squamous 2+ /hpf MAIN LAB, [address] [place] [address] [place]it[place] [address] Urine Squamous 2+ /hpf MAIN LAB, [address] [place] [address] [place] [address] Urine Bacteria 3+ /hpf NONE SEEN MAIN LAB, [address] [place] [address] Urine Bacteria 4+ /hpf NONE SEEN MAIN LAB, [address] [place] [address] Urine Mucus Present MAIN LAB , [address] [place] [address] Urine Mucus Present MAIN LAB , [address] [place] [address] Urine Culture Done Yes URINE M AIN LAB, [address] [place] [address] [facility] [address] CULTURED Urine Culture Done Yes URINE M AIN LAB, [address] [place] [address] [facility] [address] CULTURED Urine Negative NEGATIVE MAIN LAB, [address] [place] [address] [facility] [address] Sodium Level 138 mmol/L 137-145 MAIN L AB, [address] [place] [address] Potassium Level 3.8 mmol/L 3.6-5.0 MARIA C N LAB, [address] [place] [address] Chloride Level 104 mmol/L 98-107 MAIN LAB, [address] [place] [address] Carbon Dioxide 23 mmol/L 22-30 MAIN LAB, [address] [place] [address] [facility] [address] Anion Gap 11 7-16 MAIN LAB, [address] [place] [address] Blood Urea 9 mg/dL 7-17 MAIN LAB, [address] [place] [address] [facility] [address] Creatinine 0.48 mg/dL 0.52-1.04 MAIN LAB , [address] [place] [address] Glomerular > 60 mL/min >60.0 MAIN LA B, [address] [place] [address] [facility] [address] Calc Glucose Level 97 mg/dL 70-100 MAIN L AB, [address] [place] [address] Calcium Level 9.6 mg/dL 8.4-10.2 MAIN L AB, [address] [place] [address] Calcium Adjusted 9.5 mg/dL 8.4-10.2 MARIA C N LAB, [address] [place] [address] for Albumin [facility] [address] Total Bilirubin 0.4 mg/dL 0.2-1.3 MAIN LAB, [address] [place] [address] Aspartate Amino 20 U/L 14-36 MAIN LAB, [address] [place] [address] Transf (AST/SGOT) [facility] [address] Alanine 20 U/L 9-52 MAIN LAB, [address] [place] [address] [place] [address] (ALT/SGPT) Total Protein 7.3 g/dL 6.3-8.2 MAIN L AB, [address] [place] [address] Albumin 4.4 g/dL 3.5-5.0 MAIN LAB, [address] [facility] [place] [address] Alkaline 60 U/L 38-126 MAIN LAB, [address] [place] [address] [place] [address] Urine Methadone Negative Cutoff:200 MARIA C N LAB, [address] [place] [address] Screen ng/[place] [address] Urine Methadone Negative Cutoff:200 MARIA C N LAB, [address] [place] [address] Screen ng/[place] [address] Urine Methadone Negative Cutoff:200 MARIA C N LAB, [address] [facility] Screen ng/[place] [address] Microbiology Results Procedure Source Result Collection Result Result Performin g Date/Time Date/Time Comment Site Urine Culture Ur,Clean Escherichia February MAIN LAB, [address] [place] [address] Catch Coli 2018 [place] [address] 7:27am Urine Culture Ur,Clean Escherichia Peter MAIN LAB, [address] [place] [address] Catch Coli 2018 [place] [address] 7:29am Group A Throat February MAIN LAB, [address] [place] [address] [place] [address] Screen (BRETT) 6:42am Diagnostic Imaging Reports Report [...] Grashe y and Y views, [place] [facility] [place]. 04/09/08 MRI of right shoulder. [...] DATE: 03/12/10 REPORT STATUS: Signed DICTATING PHYSICIAN: Rosemayr Tatum MD REASON FOR EXAM: JT PAIN [...] have a copy [place] [facility] No Bernabe murray 2018 2:16pm Pt has a Living Will? No March 06 0 10:42am Do we have a copy [place] [facility] No Bernabe murray 2018 2:16pm Pt has a Power of Terrazzo Helper? No February 10:42am Do we have a copy [place] [facility] No Bernabe murray 2018 2:16pm Chief Complaint [...] 1998 Julia Gentile Clinical Medical 1998 12:00am COMMISSARY AGENT Center-Outpatient Conversion Departed [facility] October 12, 2001 October 12, 2001 Vaughn Roca [facility]-DI 12:00am , MD Jarquin Departed [facility] October 01, 2005 October 01, 2005 Ana Laura Ríos Clinical Medical 12:00am MD Jonathan Center-Outpatient Conversion Departed [facility] February 26, February 27, 2008 Sheryl Acevedo [facility]-DI 2007 12:00am [facility] Departed [facility] March 12, 2008 March 12, 2008 josy Emergency Medical 12:00am Center-Emergency Department Departed [facility] March 15, 2008 March 15, 2008 Bradford perez [facility]-DI 12:00am , DO Jarquin Departed [facility] April 09, 2008 April 09, 2008 El birch [facility]-DI 12:00am , [facility] Departed [facility] June 25, 2009 June 25, 2009 Ana Laura Ríos Referred Medical 8:23pm MD Jonathan Center-Referred Lab Departed [facility] July 09, 2009 July 09, 2009 Ana Laura Ríos Clinical Medical 5:34pm 11:59pm MD Jonathan Center-Laboratory Registered [facility] March 06, Kenyon Munoz [facility]-DI 2009 10:41am APRIL Walk In [place] Registered [facility] March 12, 2010 Kenyon mclaughlin [facility]-DI 1:34pm APRIL [facility] Departed [facility] April 14, 2013 April 14, 2013 Con version Physician/Pro[facility] Medical 12:00am Medent mandie Office [facility] Visit rn Assoc in Surgery Departed [facility] November 25, November 25, 2016 Sourav gaston PA-C Physician/Pro[facility] Medical 2016 12:00am Hansa [facility] Visit rn Urgent [place] Departed [facility] February 20, February 20, 2017 Juliana elias Physician/[facility] Medical 2016 12:00am Medent mandie Office [facility] Visit rn Urgent [place] Departed [facility] February 20, February 20, 2017 Sr. Di no [facility]- 2016 8:36pm 8:37pm [facility] [place] [facility], 2018 September 08, 2018 [...] Emergency Medical 10:48pm 10:17am Center-Emergency Department Departed [facility] March 01March 01, 2019 [facility] Emergency Medical 2018 5:15am 6:24pm Center-Emergency Department [...] Immunization Event Date Not Given Dose Number Steam Meter Reader Lot Number Vaccine Reason Informatio n Statement (VIS) Detail Tdap September 08 [id number] 2018 Mental Status Observation Response Date Recorded Comprehension Ability Unable to Comprehend February 08 7:46am Comprehension Ability Understands Concepts February 08 11:12pm Medical Equipment No Medical Equipment Information available Insurance Providers Guarantor YASMANY EUBANKS Address [address] [address] Contact Info. Home Phone: Payer Policy Id Coverage Id Subscriber's Subscriber Id Effective E xpiration Name Date Date NOLA DUEÑAS [id number] BALA EUBANKS [id number] CROSS (DO NOT USE) [place]ICA[place] [id number] YASMANY EUBANKS [id number] [place] SELF PAY Self N/A [place] MEDICAID [id number] YASMANY EUBANKS [id number] (DO NOT USE) Plan of Treatment Future Tests Future scheduled test information is unavailable Pending Tests Pending diagnostic test information is unavailable Future Visits Future appointment information is unavailable Referrals to Other Providers Reason for Referral Start Provider Provider Contact Provider Address Referral Date Information Sana Lo Work Phone: Benjy Ortega MD [address] [place] [address] Sana Lo Work Phone: Benjy Ortega MD [address] [place] [address] Sana Lo Work Phone: Benjy Ortega MD [address] [place] [address] Sana Lo Work Phone: Benjy Ortega MD [address] [place] [address] Sana Lo Work Phone: Benjy Ortega MD [address] [place] [address] Sana Lo Work Phone: Benjy Ortega MD [address] [place] [address] Dr [place] [address] Future Procedures Future procedure information is unavailable [...] Oxygen saturation by Pulse 98 % 95-100 [facility]2016 oximetry 12:27pm BP Systolic 110 mm[Hg] [...]
--- OUTSIDE RECORDS SUMMARY | 2021-08-16 23:29 | XMS_ITS | Encounter Summary ---
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 Today 10/11/2019 9:28 EDT LAB PCR COVID-19 TESTING Routine 10/11/2019 9:28 EDT Resu lts for this procedure are i n the results section. documented in this encounter Results COVID-[address] [facility] LAB PCR (10/11/2019 9:28 EDT) Specimen Swab - Entire nasopharynx (body structur e) Performing Organization Address City/State/ZIP Code Phon e Number [facility] [address] [place] [address] SERVICES COVID-19 TESTING (10/11/2019 9:28 EDT) COVID-19 rt-PCR Negative Negative [facility] MEDICAL Result Comment: CENTER LABORATORY This test [...] and epidemiological informatio n. Performed on the [employer] Fusion instrument Performing Lab [facility] Lab [facility] SERVICES Specimen Swab Performing Organization Address City/State/ZIP Code Phon e Number [facility] [address] [place] [address] SERVICES documented in this encounter Visit Diagnoses Not on filedocumented in this encounter Additional Health Concerns Infection Onset Date Last Indicated Resolved Time COVID-19 03/07/2021 03/07/2021 03/27/2021 22:15 EST documented as of this encounter Care Teams Trustee Of Estate Relationship Specialty Start Date End Date Sana Muhammad MD PCP - General 12/02/16 08/05/20 Jim Morales MD PCP - General Family Medicine - Primary 08/06/[address] [place] [phone] documented as of this encounter
--- OUTSIDE RECORDS SUMMARY | 2021-08-16 23:29 | XMS_ITS | Encounter Summary ---
:1990 Author Organization [facility] Address [address] [place] [address] Care Team Providers Name Role Phone Sana Muhammad MD Primary Care Provider Encounter Details Date Type Department Care Team Description 04/03/2019 Travel Social History Tobacco Use Types Packs/Day [...] Problems Progress 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Jani dependence Vania syndrome Healthy General On track [...] about your health please v isit: [email or web address]/medcenter/Pages/Wellness-Resources/Laxbagspb-Igublx-Uw documented as of this encounter Visit Diagnoses Not on filedocumented in this encounter Care Teams Box Sealing Machine Feeder Relationship Specialty Start Date End Date Sana Muhammad MD PCP - General 12/02/16 08/05/20 documented as of this encounter
--- OUTSIDE RECORDS SUMMARY | 2021-08-16 23:29 | XMS_ITS | Encounter Summary ---
:1990 Author Organization [facility] Address [address] [place] [address] Care Team Providers Name Role Phone Sana Muhammad MD Primary Care Provider Jim Morales MD Primary Care Provider Encounter Details Date Type Department Care Team Description 07/07/2020 Lab Requisition [facility] Outr Resulting Lab, Pathology & Laboratory Provider [facility] [address], [place] [id number] Social History Tobacco Use Types Packs/Day Years [...] more about your health please v isit: [email or web address]/Wellness-Resources/Umpfgomgz-Uporro-Cs documented as of this encounter Procedures Procedure Name Priority Date/Time Associated Comments Diagnosis HIV 1/2 ANTIGEN AND Routine 07/07/2020 13:39 Resu lts for this ANTIBODY, 4TH EDT procedure are in GENERATION the results section. documented in this encounter Results HIV 1/2 ANTIGEN AND ANTIBODY, 4TH GENERATION (07/07/2020 13:39 EDT) HIV 1 and 2 Negative Negative [facility] Antibody/p24 Comment: LABORATORY Antigen, 4th If acute HIV-1 infection is suspected in a high risk ??patient, submit plasma specimen for HIV-1 RNA quantitation test. SERV ICES Generation Fourth Generation assay performed on the Siemens [facility]. Specimen Blood - Venous blood (substance) Performing Organization Address City/State/ZIP Code Phon e Number [facility] [address] [place] [address] SERVICES documented in this encounter Visit Diagnoses Not on filedocumented in this encounter Additional Health Concerns Infection Onset Date Last Indicated Resolved Time COVID-19 03/07/2021 03/07/2021 03/27/2021 22:15 EST documented as of this encounter Care Teams Boat Loader Relationship Specialty Start Date End Date Sana Muhammad MD PCP - General 12/02/16 08/05/20 Jim Morales MD PCP - General Family Medicine - Primary 08/06/[address] [place] [id number] documented as of this encounter
--- OUTSIDE RECORDS SUMMARY | 2021-08-16 23:30 | XMS_ITS | Encounter Summary ---
:1990 Author Organization [facility] Address [address] [place] [address] Care Team Providers Name Role Phone Sana Muhammad MD Primary Care Provider Reason for Visit Reason Onset Date Comments Hospital Discharge Follow Up 12/01/2018 Encounter Details Date Type Department Care Team Description 12/01/2018 Telephone [facility] Ernestine Polanco RN Hosp ital Discharge Family Medicine - Follow Up [address] [id number] Social History Tobacco Use Types [...] encounter Miscellaneous Notes Telephone Encounter - Marilee Holguin, RN - 12/01/2018 1022 EDT Spoke with patients grandmother. Patient is at [facility] in [place]. States patient is not doing to well. She is going to visit her now. Grandmother is aware of patients appointment with on December 08. States she will make sure she is there. documented in this encounter Plan of Treatment Not on filedocumented as of this encounter Goals Goal Patient Goal Associated Recent Patient-Stated? 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Day, dependence Vania syndrome Healthy General On track [...] v isit: [email or web address]/medcenter/Pages/Wellness-Resources/Vkyljvjei-Cjegdh-Wa documented as of this encounter Visit Diagnoses Not on filedocumented in this encounter Care Teams Black Pickler Relationship Specialty Start Date End Date Sana Muhammad MD PCP - General 12/02/16 08/05/20 documented as of this encounter
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
--- OUTSIDE RECORDS SUMMARY | 2021-08-16 23:30 | XMS_ITS | Encounter Summary ---
:[address] [facility] Address [address] [place] [address] Care Team Providers Name Role Phone Sana Muhammad MD Primary Care Provider Reason for Visit Reason Onset Date Comments Agitation 12/07/2018 Encounter Details Date Type Department Care Team Description 12/07/2018 Telephone [facility] Adult Primary Ana Laura Walsh RN [facility] - [address] [address] Social History Tobacco Use Types Packs/Day Years [...] this encounter Miscellaneous Notes Telephone Encounter - Ana Laura Walsh RN - 12/07/2018 1344 EDT Called to notify of patient admission, no answer and no message was left. ANA LAURA WALSH RN 12/07/2018 13:45 documented in this encounter Plan of Treatment Not on filedocumented as of this encounter Goals Goal Patient Goal Associated Recent Patient-Stated? 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[place], dependence Vania syndrome Healthy General On track No Slime, Eating (07/14/2018 Diana 15:30 EDT) Note: Healthy Eating Goal: Carry a healthy sna ck for when I'm hungry. The patient's confidence level, sources of support and barriers to change were assessed. Pertinent information is documented in the visit encounter. Counseling was provided to assess readiness, confidence and/or barriers to self-care. To learn more about your health please v isit: [email or web address].[email or web address]/medcenter/Pages/Wellness-Resources/Xlfqudokb-Ixubac-Tq documented as of this encounter Visit Diagnoses Not on filedocumented in this encounter Care Teams Algorithm Design Engineer Relationship Specialty Start Date End Date Sana Muhammad MD PCP - General 12/02/16 08/05/20 documented as of this encounter
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
--- OUTSIDE RECORDS SUMMARY | 2021-08-16 23:30 | XMS_ITS | Encounter Summary ---
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 Caucasion female with past psychiatric diagnosis of schizotypal PD, unspecified psychosis, prior inpatient [facility] (11/06- 11/14 and 11/15-) who came to the ED this morning via EMS after arriving at ???[facility] where she???d been a recent client apparentlywanting to return. Rosina is single, lives alone, and a 6 year old son who DCF removed from her custody a month ago. Rosina presented in ED stating that she is experiencing a hex placed on her by someone she refused to identify and that she put animals and snakes in her head. Ct stated to this music writer that shehoped to by cutting off her own head. Ct was difficult to redirect and focus on specific questions when asked. She was seen by Dr Sabine Duong who assessed that her symptoms were not evidence of schizophrenia, rather that she is externally motivated to exaggerate her symptoms, which is common in the schizotypaldiagnosis which is often characterized by a baseline preoccupation with muslim themes. This was fu rther evidenced when during a subsequent encounter with this music writer, YUN GREENBERG, and Drs. Duong and Meet, there was a significant reduction in the psychotic gesturing including remission of SI. Ct acknowledged that she had not been to fish bait picker her refills after leaving [facility] and had not been taking her lithium or it had been approximately 3 days since her last medication dose. Ct was capable of planning to get and take her medications. Dr. Duong encouraged that she make an appointment with her PCP and offered to facilitate that call. Rosina does not want inpatient and does not meet EE criteria. Ct agrees to take meds and follow up with [facility]. Substance Use (if applicable): Rosina uses cannabis and alcohol (Fireball) which she says helps with symptoms. Relevant Psychosocial Information: Rosina recently lost custody of her son reportedly due to being unable to adequately care for him. It appears that she has had a recent increase in some disordered thinking which stabilizes when she is able to consistently take her medications. Rosina has been referred to [facility] for out-patient support although it is not clear she has been assigned a clinician. Mental Status Appearance: Disheveled Attitude: Cooperative Behavior: Psychomotor Agitation and Other but inconsistently demonstrated Slowed and Other pressure during times of increased agitation Mood: Sad Sleep Pattern: No Disturbance Noted Appetite: No Disturbance Noted Affect: Mood Congruent Thought Process: Clear, Coherent, Organized and Goal-Directed Perception: Delusions Cognitions: Alert and Oriented Insight: Fair Judgement: Fair Concentration: Fair Orientation: Oriented times three Risk Assessment Suicidality: Ct denies SI Homicidality: Ct denies all HI Clinical Interpretation: Ct is presenting with an increase in disorganized thinking and distress likely as a result of med non-compliance, especially litium. Rosina is able to engage in discharge planing and agree to go get her medication at [facility] and go home. She agreed to follow up with appointments. Plan: The plan for this patient is: Discharge from ED to Follow Up Provider Consultation with: Dr Sabine Bui Manager Testing [facility] for [facility] documented in this encounter Plan of [...] more about your health please v isit: [email or web address] documented as of this encounter Procedures Procedure Name Priority Date/Time Associated Comments Diagnosis COMPLETE BLOOD COUNT STAT 12/06/2018 15:01 Res ults for this AND DIFFERENTIAL EDT procedure a re in the results section. LITHIUM STAT 12/06/2018 15:01 Results for this EDT procedure are i n the results section. COMPREHENSIVE STAT 12/06/2018 15:01 Results fo r this METABOLIC PANEL (CMP) EDT proced ure are in the results section. documented in this encounter Results (ABNORMAL) LITHIUM (12/06/2018 15:01 EDT) Pathologist Sig nature [place] <0.2 (L) 0.6 - 1.2 mEq/L [facility] Specimen Blood specimen (specimen) - Blood Performing Organization Address City/State/[facility] Code Phon e Number [facility] [address] [place] [address] SERVICES (ABNORMAL) COMPREHENSIVE METABOLIC PANEL (CMP) (12/06/2018 15:01 EDT) Potassium 4.2 3.5 - 5.0 [facility] mEq/L [facility] Sodium 139 136 - 145 [facility] mEq/L [facility] Chloride 100 96 - 110 [facility] mEq/L [facility] CO2 26 22 - 32 mEq/L [facility] Total Alkaline 63 38 - 126 U/L [facility] Phosphatase [facility] Bilirubin, Total 0.5 <1.4 mg/dl [facility] AST 22 15 - 46 U/L [facility] ALT 21 <34 U/L [facility] Albumin 4.6 3.4 - 4.9 [facility] g/dl [facility] Total Protein 7.1 6.3 - 8.2 [facility] g/dl [facility] Creatinine 0.62 0.52 - 1.04 [facility] mg/dl [facility] GFR, Calculated 122 >60 [facility] Comment: ml/min/1.73m2 [facility] eGFR calculated using CKD-EPI equation for SERVICES non Americans. Multiply eGFR by 1.16 for Americans. BUN 7 (L) 10 - 26 mg/dl [facility] Calcium 9.8 8.5 - 10.5 [facility] mg/dl [facility] Calculated Calcium 9.3 8.5 - 10.5 [facility] mg/dl [facility] Glucose, Serum 118 (H) 70 - [address] [facility] mg/dl [facility] Fasting? Unknown [facility] Specimen Blood specimen (specimen) - Blood Performing Organization Address City/State/ZIP Code Phon e Number [facility] [address] [place] [address] SERVICES (ABNORMAL) COMPLETE BLOOD COUNT AND DIFFERENTIAL (12/06/2018 15:01 EDT) Pathologist Sig nature WBC 13.73 (H) 4.0 - 12.4 [facility] K[facility] RBC 4.88 3.86 - 5.04 [facility] M[facility] Hemoglobin 14.1 11.6 - 15.2 [facility] gm/dl LABORATORY SERVICES HCT 41.8 34.9 - 44.4 % [facility] MCV 86 81 - 98 fl [facility] MCH 28.9 26.7 - 33.3 pg [facility] MCHC 33.7 32.1 - 35.9 [facility] gm/dl LABORATORY SERVICES RDW-CV 12.6 <14.7 % [facility] RDW-SD 38.8 <50.4 fl [facility] PLT 358 141 - 377 K/[facility] LABORATORY SERVICES MPV 9.2 (L) 9.5 - 12.7 fl [facility] Neutrophils 63.8 % [facility] Lymphocytes 26.1 % [facility] Monocytes 8.4 % [facility] Eosinophils 0.8 % [facility] Basophils 0.4 % [facility] Immature Grans 0.5 % [facility] ABS Neutrophils 8.75 2.20 - 8.85 [facility] K/cm LABORATORY SERVICES ABS Lymphs 3.58 (H) 1.09 - 3.30 [facility] K[facility] ABS Monocytes 1.16 (H) 0.1 - 0.8 K/cmm [facility] ABS Eosinophils 0.11 0.03 - 0.61 [facility] K/[facility] LABORATORY SERVICES ABS Basophils 0.06 0.01 - 0.11 [facility] ABS Immature Grans 0.07 (H) 0 - 0.06 [facility] Type of Diff: Automated [facility] Specimen Blood specimen (specimen) - Blood Performing Organization Address City/State/ZIP Code Phon e Number [facility] [address] [place] [address] SERVICES documented in this encounter Visit Diagnoses Diagnosis Psychiatric problem - Primary Unspecified nonpsychotic mental disorder Malingering Person feigning illness Psychosis, unspecified psychosis type (H CC-CMS) (HCC) documented in this encounter Administered Medications Inactive Administered Medications - up to 3 most recent administrations Medication Order MAR Action Action Date Dose Rate Site acetaminophen (TYLENOL) tablet 650 mg Given 12/06/2018 8:31 EDT 650 mg 650 mg, oral, NOW X1, 1 dose, On Wed12/06/18 at 0830, STAT LORazepam (ATIVAN) tablet 1 mg Given 12/06/2018 8:06 EDT 1 mg 1 mg, oral, NOW X1, 1 dose, On Wed12/06/18 at 0815, STAT documented in this encounter Discontinued Medications Medication Sig Discontinue Reason Start Date End Date cariprazine (VRAYLAR) 1.5 Take 3 Caps by Duplicate Therapy 12/01/19 19 12/06/2018 mg capsuleIndications: mouth daily. schizophrenia lithium (LITHOBID) 300 mg Take 5 Tabs by Duplicate Therapy 12/01/19 19 12/06/2018 CR tabletIndications: Mood mouth daily with regulation in patient with dinner for 14 psychosis days. documented as of this encounter Historical Medications This list may reflect changes made after this encounter. Medication Sig Dispensed Refills Start Date End Date DULoxetine (CYMBALTA) 30 Take 30 mg by mouth 0 02/21/2019 mg delayed release daily. capsule added in this encounter Active and Recently Administered Medications Times are shown in EDT. Scheduled Medication Order 12/04/2018 12/05/2018 12/06/2018 acetaminophen (TYLENOL) tablet 650 mg (COMPLETED) 0831 (Given - Provider: Vania Melchor RN) 650 mg, oral, NOW X1, 1 dose, 12/06/18 at 0830, STAT LORazepam (ATIVAN) tablet 1 mg (COMPLETED) 08 (Given - Provider: Vania Melchor RN) 1 mg, oral, NOW X1, 1 dose, Wed12/06/18 at 0815, STAT documented in this encounter Orders Lab Orders Without Results Count Last Ordered Date Fir st Ordered Date POCT TEST, [facility]ITE[facility] 1 12/06/2018 Nursing Count Last Ordered Date First Ordered Date CONSTANT SAF[employer]Y SERVICES REQUEST 1 12/06/2018 documented in this encounter Care Teams Checkroom Chief Relationship Specialty Start Date End Date Sana Muhammad MD PCP - General 12/02/16 08/05/20 documented as of this encounter
--- OUTSIDE RECORDS SUMMARY | 2021-08-16 23:30 | XMS_ITS | Encounter Summary ---
:1990 Author Organization [facility] Address [address] [place] [address] Care Team Providers Name Role Phone Sana Muhammad MD Primary Care Provider Reason for Visit Reason Comments Urinary Tract Infection [facility] follow-up Medication Management Needs to discuss medication changes. Encounter Details Date Type Department Care Team Description 02/09/2019 Office Visit [facility] Bailey Garrido, Schiz otypal disorder ([facility]) (Primary Dx); Family Medicine - HUMAN RESOURCES SERVICES SPECIALIST Dysuria [address] [address] [place], [place] [phone] Social History Tobacco Use Types Packs/Day Years [...] Sign Reading Time Taken Comments Blood Pressure 110/72 02/09/2019 1109 EST Pulse 88 02/09/2019 1109 EST Temperature 36.8 ??C (98.3 ??F) 02/09/2019 1109 EST Respiratory Rate 16 02/09/2019 1109 EST Oxygen Saturation - - Inhaled Oxygen Concentration - - Weight 117.9 kg (260 lb) 02/09/2019 1109 EST Height 165.1 cm (5' 5) 02/09/2019 1109 EST Body Mass Index 43.27 02/09/2019 1109 EST documented in this encounter Functional Status [...] as of this encounter Patient Instructions Patient InstructionsMonserrat Hernandez LPN - 02/09/2019 11:00 EST Quitting smoking Stopping smoking is the best step you can take to improve your own health and lengthen your life. Quitting smoking will lower your risk for heart attacks, lung problems, and many forms of cancer. When you stop smoking, your loved ones will breathe less smoke from the air. That will lower their risk for asthma, lung infections, heart attacks, and lung cancer. You will also save money, look and smell better, and feel good about what you've done. Many people have quit smoking. The best way to quit is to be clear on your reasons for quitting, ambreen quit date, use medication, and work with a trained counselor. Tobacco Counseling in [facility] offers free counseling services to residents who are ready to cut back or quit using tobacco. Services include: phone coaching (), online tools and support for those who would like to make changes on their own (www.[employer]), as well as in-person group workshops. Free nicotine replacement therapy is available through all of these resources. To learn more about your options visit www.[employer].org or call -NOW ( ). To speak with an in-person tobacco counselor in [facility] call, [phone]. [place] Resident, please visit: [email or web address] I hope you quit smoking. I think it's the best thing you can do for your health. Please call our office if you have any questions. documented in this encounter Progress Notes Alysha Alvarez LPN - 02/09/2019 1100 EST POCT urine diipstick performed. Results for orders placed or performed in visit on 02/09/19 POCT URINE DIPSTICK, CLINITEK Result Value Ref Range Color, UA Yellow Yellow Clarity, UA Clear Clear Glucose, UA Negative Negative mg/dL Bilirubin, UA Negative Negative Ketones, UA Negative Negative mg/dL Spec Grav, UA 1.025 1.001 - 1.035 Blood, UA Negative Negative pH, UA 6.5 <=8 Protein, UA Negative Negative mg/dL Urobilinogen, UA 0.2 0.2 - 1.0 EU/dL Nitrite, UA Negative Negative Leuk Esterase 1+ (A) Negative Tech ID [id number] HN LAB COMMENT (CLINITEK, UR) Test performed at [facility] Urine sample sent out for bacterial culture Dx: R3.0 Bailey Win APRN - 02/09/2019 1100 EST Office Visit Note Patient ID: Mary Grace Harris 28 y.o. female CC: Urinary Tract Infection ([facility] follow-up) and Medication Management (Needs to discuss medication changes.) Subjective: HPI: Mary Grace Harris is a 28 y.o. female here for [facility] ED Follow up - She says she went to the ED for mental problems and UTI and discharged home - Currently having constant auditory and visual hallucinations - Demons telling talking to her, horned creatures in the exam room, hearing hissing in the hallway - Wants to let me know that the apocalypse is coming and souls are in danger - Believes that her neighbor stole her soul, and she sees balls of darkness flying from neighbors home - Hears her son- who lives with uncle and grand ma calling to her sometimes - She can read everyone's thoughts - She says she has schizophrenia- goes to the [facility] and has meeting with her case operator Mandy Today at 1 pm - Taking all her medications but says they do not help her - has had these symptoms for many years - Would like more psych meds today - Denies intent to harm herself or her neighbor - Denies SI - Endorses daily marijuana use and smoking cigarettes - Denies alcohol use - Feels like she has a uti - No uti symptoms at this time - Wants to have antibiotic today ROS See HPI History Social, family, and personal medical history reviewed and documented in the medical record 02/10/19 Patient Active Problem List Diagnosis Date Noted ??? Psychosis ([facility]) 11/15/2018 Priority: Medium Unspecified (vs. Schizotypal personality disorder) ??? Marijuana use, continuous 09/22/2018 Priority: Medium ??? Obesity, Class III, BMI 40-49.9 (morbid obesity) ([facility]) 09/19/2018 Priority: Medium ??? Tobacco dependence syndrome 04/24/2012 Priority: Medium ??? Psychosocial distress 12/09/2018 Difficulty with finances and housing. In the process of intake to DUMP MOTOR OPERATOR services with [facility]. Noted to verónica for housing/placement on multiple ED visits 12/06 to 12/09. ??? Chronic pain syndrome 03/22/2012 Following football injury 2004. ??? Depression 04/10/2009 ??? Celiac disease 04/10/2009 ??? Anxiety 04/10/2009 Medications: Reviewed and documented in the medical record 02/10/19 Current Outpatient Medications: acetaminophen (TYLENOL) 500 mg [...] mg tablet traZODone (DESYREL) 100 mg tablet No current facility-administered medications for this visit. Allergies Allergen Reactions ??? Gluten Protein ??? Haldol [Haloperidol Lactate] paralysis ??? Paxil [Paroxetine Hcl] Nausea And Vomiting Social History Tobacco Use ??? Smoking status: Current Every Day Smoker Packs/day: 1.00 Years: 10.00 Pack years: 10.00 ??? Smokeless tobacco: Never Used Substance Use Topics ??? Alcohol use: Yes Alcohol/week: 3.0 standard drinks Types: 3 Cans of beer per week Comment: occ ??? Drug use: Yes Types: Marijuana Objective: BP 110/72 (BP Cuff Location: Right arm, BP Patient Position: Sitting, BP Cuff Sizes: Adult, regular) Pulse 88 Temp 36.8 ??C (98.3 ??F) (Tympanic) Resp 16 Ht 165.1 cm (65) Wt (!) 117.9 kg (260 lb) BMI 43.27 kg/m?? Physical Exam GEN: no distress HEENT: mmm LUNGS: effort normal NEURO: no obvious focal deficits PSYCH: Appearance/Behavior: well-groomed, good hygiene, behavior appropriate. Speech: normal rate, rhythm, prosody. Mood: fearful Affect: congruent Thought content: answers questions appropriately Thought process: linear Judgment/Insight: appears intact Results for orders placed or performed in visit on 02/09/19 POCT URINE DIPSTICK, CLINITEK Result Value Ref Range Color, UA Yellow Yellow Clarity, UA Clear Clear Glucose, UA Negative Negative mg/dL Bilirubin, UA Negative Negative Ketones, UA Negative Negative mg/dL Spec Grav, UA 1.025 1.001 - 1.035 Blood, UA Negative Negative pH, UA 6.5 <=8 Protein, UA Negative Negative mg/dL Urobilinogen, UA 0.2 0.2 - 1.0 EU/dL Nitrite, UA Negative Negative Leuk Esterase 1+ (A) Negative Tech ID [id number] HN LAB COMMENT (CLINITEK, UR) Test performed at [facility] Assessment and Plan: Mary Grace was seen today for urinary tract infection and medication management. Diagnoses and all orders for this visit: Schizotypal disorder ([facility]): Mary Grace Harris is a 28 y.o. female with PMH including??schizotypalpersonality disorder, schizophrenia, depression, anxiety, obesity, chronic pain syndrome, fibromyalgia, tobacco dependence syndrome and asthma. She has been seen multiple times in the ED with psychosis. Today she does not appear to be a harm to herself or others. She has a meeting at [facility] today- of note I tried contacting her community case manager and was told that she no longer works at the [facility]. It is unclear if the patient actually has a meeting there today. I called Dr. Duong for psych consult as she has seen this patient in the past. The patient has a history of schizotypal behavior with no diagnosis of schizophrenia. She has hallucinations in all realms of sensation. After discussion with Dr. Duong feel that her presentation today may be related to malingering and not acute psychosis. She was advised to have close Follow up with her [facility] case operator. A call to Crisis was offered to the patient for assessment of mental status, she declined and reported she would to [facility] to Follow up. Dysuria - POCT URINE DIPSTICK, CLINITEK- no evidence of UTI will send culture and revise treatment plan if indicated - BACTERIAL CULTURE, URINE Bailey Garrido APRN 02/10/2019 12:14 documented in this encounter Plan of Treatment Not on filedocumented as of this encounter Goals Goal Patient Goal Associated Recent Patient-Stated? 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[place], dependence Vania syndrome Healthy General On track [...] more about your health please v isit: https://www.[facility].org/medcenter/Pages/Wellness-Resources/Ckdhgwuga-Zwnivp-Ua documented as of this encounter Procedures Procedure Name Priority Date/Time Associated Diagnosis Comme nts POCT CSN BARCODE Routine 02/09/2019 13:15 Dysuria Results for this URINE DIPSTICK EST procedure are in the results section. BACTERIAL CULTURE, Routine 02/09/2019 12:25 Dysuria Resul ts for this URINE EST procedure are i n the results section. POCT URINE CLINITEK Routine 02/09/2019 12:18 Dysuria Resu lts for this (DIPSTICK) - DOES EST procedure are in NOT REFLEX the results section. POCT URINE Routine 02/09/2019 12:18 Dysuria Results for this DIPSTICK, CLINITEK EST procedure are in the results section. documented in this encounter Results POCT CSN BARCODE URINE DIPSTICK (02/09/2019 13:15 EST) Pathologist Sig nature Hold Hold [facility] Specimen Urine Performing Organization Address City/State/ZIP Code Phon e Number [facility] [address] [place] [address] SERVICES (ABNORMAL) BACTERIAL CULTURE, URINE (02/09/2019 12:25 EST) Organism ID Greater than 100,000 CFU/ml Escherichia coli (A) [facility] Comment: LABORATORY SERVICES Cefazolin susceptibility res ults can be used to predict susceptibility results for the following oral cephalosporins when used for therapy of uncomplicated UTIs due to E.coli, K.pneumoniae, and P.mirabi lis: cefaclor, cefdinir, cefpodoxime, cefprozil, cefuroxime, cephalexin, heidi carbef. Cefdinir, cefpodoxime, and cefuroxime may be tested individually because some isolates may be susceptibile to these agents while testing resistance to cefazolin. Plea se note that only cefpodoxime and cephalexin are on the [facility] inpatient formulary. Specimen Urine - Urine (substance) Organism Antibiotic Method Susceptibility Escherichia coli Ampicillin VITEK SUSCEPTIBILITY <=2 ug/mL: Susceptible Escherichia coli Cefazolin VITEK SUSCEPTIBILITY <=4 ug/mL: Susceptible Escherichia coli Ceftriaxone VITEK SUSCEPTIBILITY <=1 ug/mL: Susceptible Escherichia coli Ciprofloxacin VITEK SUSCEPTIBILITY <=0.25 ug/ mL: Susceptible Escherichia coli Ertapenem VITEK SUSCEPTIBILITY <=0.5 ug/m L: Susceptible Escherichia coli Meropenem VITEK SUSCEPTIBILITY <=0.25 ug/ mL: Susceptible Escherichia coli Nitrofurantoin VITEK SUSCEPTIBILITY <=16 ug/mL : Susceptible Escherichia coli Piperacillin Tazobactam VITEK SUSCEPTIBILITY <= 4 ug/mL: Susceptible Escherichia coli Trimethoprim-Sulfamethox VITEK SUSCEPTIBILITY < =20 ug/mL: Susceptible azole Performing Organization Address City/[facility] Code Phon e Number [facility] [address] [place] [address] SERVICES (ABNORMAL) POCT URINE DIPSTICK, CLINITEK (02/09/2019 12:18 EST) Color, UA Yellow Yellow [facility] Clarity, UA Clear Clear [facility] Glucose, UA Negative Negative mg/dL [facility] Bilirubin, UA Negative Negative [facility] Ketones, UA Negative Negative mg/dL [facility] Specific [place], 1.025 1.001 - 1.035 [facility] LABORATORY SERVICES Blood, UA Negative Negative [facility] pH, UA 6.5 <=8 [facility] Protein, UA Negative Negative mg/dL [facility] Urobilinogen, UA 0.2 0.2 - 1.0 EU/dL [facility] Nitrite, UA Negative Negative [facility] Leuk Esterase 1+ (A) Negative [facility] hot packer ID [id number] [facility] HN LAB COMMENT Test performed at [facility] (CLINITEK, UR) [facility]ORATORY Practice SERVICES Specimen Urine Performing Organization Address City/[facility] Phon e Number [facility] [address] [place] [address] SERVICES documented in this encounter Visit Diagnoses Diagnosis Schizotypal disorder (HCC-CMS) ([facility]) - P rimary Schizotypal personality disorder Dysuria documented in this encounter Care Teams Brass Finisher Relationship Specialty Start Date End Date Sana Muhammad MD PCP - General 12/02/16 08/05/20 documented as of this encounter
--- OUTSIDE RECORDS SUMMARY | 2021-08-16 23:30 | XMS_ITS | Encounter Summary ---
:1990 Author Organization [facility] Address [address] [place] [address] Care Team Providers Name Role Phone Sana Muhammad MD Primary Care Provider Reason for Visit Reason Comments Social Work Encounter Details Date Type Department Care Team Description 12/09/2018 Community Health Team [facility] Nasir Teixeira [address] [address] Social History Tobacco Use Types [...] or older) documented as of this encounter Progress Notes Alize Teixeira - 12/09/2018 1058 EDT LMOVM for outreach per Dr. Hui's request. Will reinforce plan to connect to PACKAGING SPECIALIST, ASSIST, and engage with START and offer support following through as needed. documented in this encounter Plan of Treatment Not on filedocumented as of this encounter Goals Goal Patient Goal Associated Recent Patient-Stated? 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[place], dependence Vania syndrome Healthy General On track [...] more about your health please v isit: https://www.[facility].org/medcenter/Pages/Wellness-Resources/Crvcclsgu-Rbltmm-Yz documented as of this encounter Visit Diagnoses Not on filedocumented in this encounter Care Teams Feeder Tender Relationship Specialty Start Date End Date Sana Muhammad MD PCP - General 12/02/16 08/05/20 documented as of this encounter
--- OUTSIDE RECORDS SUMMARY | 2021-08-16 23:30 | XMS_ITS | Encounter Summary ---
:1990 Author Organization [facility] Address [address] [place] [address] Care Team Providers Name Role Phone Sana Muhammad MD Primary Care Provider Encounter Details Date Type Department Care Team Description 12/07/2018 Patient Outreach [facility] Esperanza Knight RN [address] [address] Social History Tobacco Use Types [...] documented as of this encounter Progress Notes Ana Laura Walsh, RHODA - 12/07/2018 1349 EDT Called [facility] to notify them that patient was in the ER, so that the Mill Beam Fitter could reachout. I was told that the ER had called to notify them of this. At this point I will remove myself from this case and please refer to [facility] with futher issues. ANA LAURA WALSH RN 12/07/2018 13:51 documented in this encounter Plan of Treatment Not on filedocumented as of this encounter Goals Goal Patient Goal Associated Recent Patient-Stated? 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[place], dependence Vania syndrome Healthy General On track [...] about your health please v isit: https://www.[facility].org/medcenter/Pages/Wellness-Resources/Uovhfeqfw-Rchmyn-Nt documented as of this encounter Visit Diagnoses Not on filedocumented in this encounter Care Teams Rougher Operator Relationship Specialty Start Date End Date Sana Muhammad MD PCP - General 12/02/16 08/05/20 documented as of this encounter
--- OUTSIDE RECORDS SUMMARY | 2021-08-16 23:30 | XMS_ITS | Encounter Summary ---
:1990 Author Organization [facility] Address [address] [place] [address] Care Team Providers Name Role Phone Sana Muhammad MD Primary Care Provider Reason for Visit Reason Onset Date Comments Psych 01/11/2019 Encounter Details Date Type Department Care Team Description 01/11/[address] [facility] Ricardos Orlin -Karina Saleem RN Psych Services - [facility] [address] [facility] [address] [place], [place] [id number] [place] [address] Social History Tobacco Use Types Packs/Day Years [...] this encounter Miscellaneous Notes Telephone Encounter - Karina Rondon, RN - 01/11/2019 9798 EST Mary Grace called this office sounding agitated. She stated that she could feel things crawling in andout of her uterus, and that we needed to take her uterus out right now. She also stated that she could make things happen such as making things go toward the light and come back again.She was crying and said that she was terrified. I validated her feelings. I suggested that she should go to the emergency room where she could get some help. (I meant psychiatric help) She was initially very resistant but finally agreed to do so. ER triage was contacted and Crisis Team consult was suggested. documented in this encounter Plan of Treatment [...] more about your health please v isit: https://www.[facility].org/medcenter/Pages/Wellness-Resources/Avhdgtxcr-Qvbcza-Ng documented as of this encounter Visit Diagnoses Not on filedocumented in this encounter Care Teams Physical Therapy Asst Relationship Specialty Start Date End Date Sana Muhammad MD PCP - General 12/02/16 08/05/20 documented as of this encounter
--- OUTSIDE RECORDS SUMMARY | 2021-08-16 23:30 | XMS_ITS | Encounter Summary ---
:1990 Author Organization [facility] Address [address] [place] [address] Care Team Providers Name Role Phone Sana Muhammad MD Primary Care Provider Reason for Referral Consult (Routine) - Closed Specialty Diagnoses / Procedures Referred By Contact Refer red To Contact Obstetrics & Diagnoses Encounter for contraceptive management, unspecified type Kendrick Odom4 Obgyn Gynecology Arabella Hong MD [id number] [place] [address], Phone: [place] [phone] Referral ID Status Reason Start Date Expiration Date Visits V isits Requested Authorized [id number] Closed Specialty 12/08/2018 1 1 Services Required Question Answer Reason for Request: bilateral tubal ligation Comments Please use phone number [phone] (pt 's grandmother) - ok to leave message with pt's grandmother Bing Harris, if pt is not available Reason for Visit Reason Comments Post-ED Follow Up Anxiety Depression Psychosis Encounter Details Date Type Department Care Team Description 12/08/2018 Office Visit [facility] Unknown, Salma blackburn MD Episode of recurrent major depressive di sorder, unspecified depression episode severity (HCC-CMS) (Primary Dx); Family Medicine - Yamileth Hui MD [address] [place] [address] [phone] Encounter for contraceptive management, unspecified type [address] [address] Social History Tobacco Use Types Packs/Day Years [...] Sign Reading Time Taken Comments Blood Pressure 122/66 12/08/2018 1456 EDT Pulse 62 12/08/2018 1456 EDT Temperature - - Respiratory Rate - - Oxygen Saturation - - Inhaled Oxygen Concentration - - Weight 113.4 kg (250 lb) 12/08/2018 1456 EDT Height 162.6 cm (5' 4.02) 12/08/2018 1456 EDT Body Mass Index 42.89 12/08/2018 1456 EDT documented in this encounter Functional Status [...] as of this encounter Discharge Diagnoses Diagnosis F33.9 Major depressive disorder, recurre nt, unspecified-F33.9[ICD-10-CM] Z30.9 Encounter for contraceptive manage ment, unspecified-Z30.9[ICD-10-CM] documented in this encounter Patient Instructions Patient InstructionsBaDiana riddle - 12/08/2018 14:45 EDT Quitting smoking Stopping smoking is the best [...] with a trained counselor. Tobacco Counseling in [facility] offers free counseling services to residents who are ready to cut back or quit using tobacco. Services include: phone coaching (3-321-SZIT-NOW), online tools and support for those who would like to make changes on their own (www.[employer]), as well as in-person group workshops. Free nicotine replacement therapy is available through all of these resources. To learn more about your options visit www.[employer] or call 3-736-ERIS-NOW ( ). To speak with an in-person tobacco counselor in [facility] call, [phone]. [place] Resident, please visit: [email or web address] I hope you quit smoking. I think it's the best thing you can do for your health. Please call our office if you have any questions. documented in this encounter Ordered Prescriptions Prescription Sig Dispensed Refills Start Date End Date melatonin 5 mg Take 1 Tab by mouth 30 Tab 3 12/08/2018 tabletIndications: at bedtime as needed insomnia for Other (Sleep). levonorgestrel (PLAN B Take 1 Tab by mouth 1 Tab 0 05/201801/09/2019 ONE-STEP) 1.5 mg once for 1 dose. tabletIndications: Encounter for contraceptive management, unspecified type calcium carbonate (TUMS) Take 1-2 Tabs by 30 Tab 2 12/0802/24/2019 200 mg calcium (500 mg) mouth 4 times daily tablet,chewableIndication as needed for s: dyspepsia, heartburn Heartburn or Indigestion. lithium (LITHOBID) 300 mg Take 5 Tabs by mouth 15 Tab 0 12/08/2018 02/21/2019 CR tabletIndications: daily with dinner. Mood regulation in patient with psychosis cariprazine (VRAYLAR) 4.5 Take 1 Cap by mouth 14 Cap 0 1 02/21/2019 mg capsuleIndications: daily. schizophrenia documented in this encounter Discharge Disposition Disposition Code Departure Means Destination Auto Discharge documented in this encounter Progress Notes Arabella Odom MD, MD - 12/08/2018 1447 EDT Attestation statement: I discussed the patient with the resident/fellow at the time of the visit andagree with the findings and plan of care. Arabella Odom MD 12/09/2018 7:45 Yamileth Hui MD - 12/08/2018 144 EDT CC: Post-ED Follow Up; Anxiety; Depression; and Psychosis Subjective: Mary Grace presents for discussion of the following issues: Depression: - Pt describes over past 2 weeks has been having issues with lump in her side that developed during a dream in which she was raped by a ghost. She describes being in the apocalypse for years and is upset about the lump and people all around her talking to her - Per Uncle, presenting with pt, she was admitted to inpatient psych for several months and since then has been in and out of the ER with various complaints - This morning was evaluated in the ER for alleged ingestion of medications and alcohol, which was ultimately determined not to be the case - Pt upset as she is out of medications due to having taken them all this morning and is requesting refills of them all. Uncle notes that her medication bottles are empty but does not know the locationof the tablets, as she believes she took them - Both pt and uncle are eager that she be connected with services that will allow her to move into supportive housing for her psychiatric illness. Pt describes being eager to move into half way housingor ACCESS - Uncle is upset that they missed a [facility] (?) intake appointment this morning, which was meant to helpher connect to resources and housing. He does note that despite attempts to help pt, she has been resistant to taking whatever steps will help move her towards obtaining housing. Contraception: - Pt requesting Plan B today - Pt requesting referral for BL[facility] Medication refills: - Pt upset that she does not have any of her medications, including Lorazepam that was prescribed Lula and sent to [facility] pharmacy. She reports she did not picking tech this medication - Uncle concerned that pt is not taking medications properly and would like to have these dispensed to her when they are due - Pt agreed that uncle is the best person to be giving her medications when they are due and he feels he is available to provide this assistance to her Pt requesting information about euthanasia when she is old. She would also like to have this considered at a younger age Review of Systems Constitutional: Negative for chills and fever. Respiratory: Negative for cough and wheezing. Psychiatric/Behavioral: Positive for depression and hallucinations. Problem list, past medical history, medications, allergies, social and family history reviewed and updated in [facility]ISM as appropriate. Objective: Blood pressure 122/66, pulse 62, height 162.6 cm (64.02), weight (!) 113.4 kg (250 lb). Physical Exam Constitutional: She appears well-developed. No distress. HENT: Nose: No nasal discharge. Mouth/Throat: Mucous membranes are moist. Eyes: Conjunctivae and EOM are normal. Pulmonary/Chest: Effort normal. No respiratory distress. Neurological: She is alert. Skin: Skin is warm and dry. Psychiatric: Pt with visual hallucinations during visit Thought process goal directed Labile mood Vitals reviewed. Assessment/Plan: Diagnoses and all orders for this visit: Episode of recurrent major depressive disorder, unspecified depression episode severity ([facility]-CMS): currently connected with resources through [facility] and recently with multiple psychiatric evaluations in ER that are not consistent with true psychosis (see Dr. Ellison note 12/08) or true suicide attempt (see Dr. Ellison note 12/09 - today). Pt and uncle repoting pt does not have her medications and requesting refills. - cariprazine (VRAYLAR) 4.5 mg capsule - lithium (LITHOBID) 300 mg CR tablet - [facility] pharmacy called; pt record reviewed and she did picking tech lorazepam ordered on 12/02. This was not refilled today - CHT/SW contacted directly today and requested to assist; apparently [facility] appointment will need to be rescheduled - ASSIST and START referrals made per Psychiatry note from earlier today Encounter for contraceptive management, unspecified type - AMB CONS/FOLLOW UP GYNECOLOGY - levonorgestrel (PLAN B ONE-STEP) 1.5 mg tablet Physician assisted : reviewed current guidelines and advised pt that she would not be a candidate for consideration of this process. Parameters for consideration were reviewed Medication refills - melatonin 5 mg tablet - calcium carbonate (TUMS) 200 mg calcium (500 mg) tablet,chewable Pt d/w DR. Lei Hui MD documented in this encounter Plan of Treatment Scheduled Referrals Name Type Priority Associated Diagnoses Order S chedule AMB CONS/FOLLOW UP Outpatient Referral Routine Encounter for O rdered: GYNECOLOGY contraceptive 12/08/2018 management, unspecified type documented as of this encounter Goals Goal Patient Goal Associated Recent Patient-Stated? 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[place], dependence Vania syndrome Healthy General On track [...] your health please v isit: [email or web address]/medcenter/Pages/Wellness-Resources/Tcaxddhkx-Dbmtdw-Fo documented as of this encounter Visit Diagnoses Diagnosis Episode of recurrent major depressive di sorder, unspecified depression episode severity (HCC) - Primary Encounter for contraceptive management, unspecified type documented in this encounter Discontinued Medications Medication Sig Discontinue Reason Start Date End Date cariprazine (VRAYLAR) Take 1 Cap by mouth Reorder 11/30/2018 12/08/2018 4.5 mg daily. capsuleIndications: schizophrenia lithium (LITHOBID) 300 Take 5 Tabs by mouth Reorder 11/29/2018 12/08/2018 mg CR tabletIndications: daily with dinner. Mood regulation in patient with psychosis melatonin 5 mg Take 1 Tab by mouth Reorder 11/30/20182018 tabletIndications: at bedtime as needed insomnia for Other (Sleep). calcium carbonate (TUMS) Take 1-2 Tabs by Reorder 11/30/2018 12/08/2018 200 mg calcium (500 mg) mouth 4 times daily tablet,chewableIndicatio as needed for ns: dyspepsia, heartburn Heartburn or Indigestion. documented as of this encounter Care Teams Video Software Engineer Relationship Specialty Start Date End Date Sana Muhammad MD PCP - General 12/02/16 08/05/20 documented as of this encounter
--- OUTSIDE RECORDS SUMMARY | 2021-08-16 23:30 | XMS_ITS | Encounter Summary ---
:1990 Author Organization [facility] Address [address] [place] [address] Care Team Providers Name Role Phone Sana Muhammad MD Primary Care Provider Reason for Visit Reason Comments Psychiatric Evaluation pt states Just [facility] pt reports lots of mental problems , poor sleep , denies substance use other than CBD and cigarettes pt denies Si denies HI , intermittently tearful/ crying , Encounter Details Date Type Department Care Team Description 12/07/2018 Emergency [facility] Lupe Carmona PA-C [address] [facility], [facility], [address] [place] [address] Agitation (Primary Dx); Emergency Department Emergency, MD Chelsy Delusion ([facility]) - [facility] [address] [place] [address] Social History Tobacco Use Types Packs/Day Years Used Date Current Every Day Smoker 1 10 Smokeless Tobacco: Never Used Alcohol Use Standard Drinks/Week Comments Yes 3 (1 standard drink = 0.6 oz pure alcoho l) occ Sex Assigned at Date Recorded Not on file documented as of this encounter Last Filed Vital Signs Vital Sign Reading Time Taken Comments Blood Pressure 129/95 12/07/2018 1000 EDT Pulse 122 12/07/2018 1000 EDT Temperature 37 ??C (98.6 ??F) 12/07/2018 1000 EDT Respiratory Rate 22 12/07/2018 1000 EDT Oxygen Saturation 98% 12/07/2018 1000 EDT Inhaled Oxygen Concentration - - Weight 113.4 kg (250 lb) 12/07/2018 1000 EDT Height 162.6 cm (5' 4) 12/07/2018 1000 EDT Body Mass Index 42.91 12/07/2018 1000 EDT documented in this encounter Functional Status [...] as of this encounter Discharge Diagnoses Diagnosis F22 Delusional disorders-F22[ICD-10-CM] R45.1 Restlessness and agitation-R45.1[I CD-10-CM] J45.909 Unspecified asthma, uncomplicate d-J45.909[ICD-10-CM] Z79.899 Other half-way (current) drug t herapy-Z79.899[ICD-10-CM] F17.200 Nicotine dependence, unspecified , uncomplicated-F17.200[ICD-10-CM] F12.90 Cannabis use, unspecified, uncomp licated-F12.90[ICD-10-CM] documented in this encounter Discharge Instructions Dinorah Redmond PA - 12/07/2018 Rest, drink plenty of fluids. Take your [...] is overwhelming, please contact Crisis Services at [phone]. documented in this encounter Medications at Time [...] Means Destination Comments Home or Self Care Walk-out kaylah bowman all belongings documented in this encounter Consult Notes Pietro Ellison Do, DO - 12/07/2018 4029 EDT Psychiatry Consultation Follow Up 12/07/2018 Patient Profile: Mary Grace Harris 28 y.o. female Consultation initially requested by: RITA Daniels Reason for Consultation: ?Psychosis Interval History Mary Grace is assessed today in the ED. She was here yesterday as well, when she was assessed by Dr. Duong, and found to her to be malingering for placement. She initially described similar psychotic phenomena to staff today as she was describing to Dr. Duong yesterday. By the time I see her, she has already decided she wished to discharge. Notably, she was completely organized during my conversation without any psychotic symptoms whatsoever. It would be highly unusual for someone with a primary psychotic illness to appear so grossly symptomatic at one point, and then within an hour appear totally devoid of symptoms. States that she doesn't want to be here and that she wishes to discharge home. Denies any SI or HI. Denies AVH. She states that her major issue is difficulty sleeping. States that she will pepper picker medication that has already been called into the pharmacy for herself. BP (!) 129/95 (BP Cuff Location: Left arm, Patient Position: Sitting) Pulse (!) 122 Temp 37 ??C (98.6 ??F) (Temporal) Resp 22 Ht 162.6 cm (64) Wt (!) 113.4 kg (250 lb) SpO2 98% BMI 42.91kg/m?? Mental Status Examination: Heavyset young woman, laying on her stomach in bed, bright purple hair, somewhat disheveled. Engaged, cooperative. No agitation or slowing. Speech normal rate and tone. Mood good and affect broad, euthymic. Thought process logical and coherent; tight associations. Thought content without delusional content. Denies SI or HI. Denies AVH. Attends adequately with intact concentration. AAOx4. Fund of knowledge and memory intact. I/J fair to good. Assessment: Mary Grace is a 28yo woman with a history of unspecified psychosis presenting for the second time in two days. Initially appeared possibly psychotic, but this utterly remitted by the time I assessed. No evidence whatsoever of primary acute mental illness on my exam. Continues to deny SI or HI. I think it is safe and acceptable for her to d/c as she wishes. Certainly does not meet EE criteria. Primary Diagnoses: r/o unspecified psychosis Recommendations: -- Clear for d/c. We will continue to round until placement is found. Thank you! Bradford Ellison, Attending, Psychiatry I spent a total of 15 minutes in face to face time with this patient today and >50% of that time was spent in counseling and coordination of care as described in the progress note. documented in this encounter ED Notes Vania Melchor RN - 12/07/2018 1341 EDT Patient verbalizes understanding of discharge instructions, given all belongings. Very calm and organized at the time of discharge. No complaints. Dinorah Ratliff PA - 12/07/2018 1157 EDT DOS: 12/07/2018 Chief Complaint Patient presents with ??? Psychiatric Evaluation [facility] pt reports lots of mental problems , poor sleep , deniessubstance use other than CBD and cigarettes pt denies Si denies HI , intermittently tearful/ crying , HPI The patient is a 28 y.o. female who presents today with Psychiatric Evaluation (pt states Just call [facility] pt reports lots of mental problems , poor sleep , denies substance use other than CBD and cigarettes pt denies Si denies HI , intermittently tearful/ crying , ) HPI Ms. Harris is a 28-year-old female with PMH significant for psychosis and depression presenting to the ED with statement of I fell from [place] as mother Laura and gave to Jose Pro son of Mor who is also known as sadiq Pro who was recently killed by a mirror. She states a need to have someone drained my blood in order to remove the demons. She states she is immaculate and accidentally blessed the devil named Mariposa and that we are all condemned to help. She is unable to this time to participate in review of systems but denies drug and alcohol use. Review of Systems Review of Systems My standard 10 pt review of systems was performed for this type of chief complaint and was negativeother than noted above. Allergies Allergen Reactions ??? Gluten Protein ??? Haldol [Haloperidol Lactate] paralysis ??? Paxil [Paroxetine Hcl] Nausea And Vomiting Vital Signs Temp: 37 ??C (98.6 ??F) Temp src: Temporal Pulse: (!) 122 Resp: 22 SpO2: 98 % BP: (!) 129/95 BP Device: BP Machine Patient Position: Sitting BP Cuff Location: Left arm O2 Device: None (Room air) Physical Exam Constitutional: She is oriented to person, place, and time. She appears well- developed and well-nourished. No distress. Disheveled, poor hygiene, blue hair dye and blue nail [place] of [place] that has been chipped away. Patient pacing from foot to foot. Patient with prolonged eye contact. Patient easily redirectable verbally. HENT: Head: Normocephalic and atraumatic. Eyes: Pupils are equal, round, and reactive to light. Neck: Normal range of motion. Neck supple. Cardiovascular: Normal rate, regular rhythm, normal heart sounds and intact distal pulses. Exam reveals no gallop and no friction rub. No murmur heard. Pulmonary/Chest: Effort normal and breath sounds normal. No stridor. No respiratory distress. She has no wheezes. She has no rales. Musculoskeletal: Ambulatory steady gait Neurological: She is alert and oriented to person, place, and time. No cranial nerve deficit. Skin: Skin is warm and dry. Capillary refill takes less than 2 seconds. No erythema. Psychiatric: Her speech is tangential. Thought content is paranoid (pt is noting she is being followed by demon things) and delusional (pt with hyperreligious delusional statements). She is inattentive. Nursing note and vitals reviewed. RESULTS EKG orders: None Radiology orders: None Procedures ED COURSE A medical screening exam was performed. A medical screening exam was performed. At this time, pt has no acute medical complaints that would prohibit her from a crisis evaluation. Pt is actively psychotic and in my medical opinion may meet EEcriteria and will need to be formally evaluated prior to being released from the ED. she has been evaluated a number of times in the emergency department and found not to warrant inpatient treatment and well-being, and establish plan of [facility] as of tomorrow. She has a prolonged history of being medication noncompliant with her psychosis clearing through the course of the day. 11:[address] Bradford Wang to discuss case prior to crisis consult to determine the need for official evaluation Patient evaluated by Dr. Wang who states the patient is not in acute harm to her or risk of harm to herself or others. Patient requesting to leave. At this time psychiatry feels that she is appropriate for discharge home. She will become a client of [facility] as of tomorrow. Prior to discharge usual and customary precautions were reviewed with the patient and/or family including follow-up instructions and reasons to return to the Emergency Department if condition worsens, does not improve as expected, or other new concerns arise. Final diagnoses: Agitation Delusion ([facility]) DISPOSITION: Discharged The patient's pain was managed [...] from the Emergency Department: Stable PCP: Sana Beyer 12/07/2018 13:35 No flowsheet data found. ania Melchor RN - 12/07/2018 1118 EDT Patient tells this underwriter mortgage loan, I think I have cancer now. I think I should live in a half-way house forever. Patient resting in bed and declines to discuss any other events after discharge yesterday. Saysshe will discuss this with the provider. 1:1 maintained for safety. Denies any other needs at this time. 1145 patient requested RN to room stating I have a lot of needs. Reported she was cold and needed hydromorphone for her schizophrenia. Also requesting nicotine, prn nicotine given as well as warm blankets. 1215 patient called RN back to room stating, this is serious. Asked what was going on and she reported, well i'm fine now, but I was getting immaculately imed again and that can't happen. ELTPSusana melchor - 12/07/2018 1036 EDT Pt cooperative with changing into appropriate paper scrubs. Pt belongings were placed in 2 personal belongings bags (clothing hat and wallet in one, boots director of marketing analytics and car keys *in boot in the other) secured in the personal belongings closet by MHT Will. Pt does NOT have cellphone at bedside. documented in this encounter Plan of Treatment Not on filedocumented as of this encounter Goals Goal Patient Goal Associated Recent Patient-Stated? 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[place], dependence Vania syndrome Healthy General On track [...] more about your health please v isit: [email or web address].[email or web address]/medcenter/Pages/Wellness-Resources/Ttbbtddcm-Ljwfsn-Lt documented as of this encounter Visit Diagnoses Diagnosis Agitation - Primary Other and unspecified special symptom or syndrome, not elsewhere classified Delusion (HCC-CMS) ([facility]) Unspecified paranoid state documented in this encounter Administered Medications Inactive Administered Medications - up to 3 most recent administrations Medication Order MAR Action Action Date Dose Rate Site LORazepam (ATIVAN) tablet 0.5 mg Given 12/07/2018 12:28 EDT 0.5 mg 0.5 mg, oral, NOW X1, 1 dose, On Wed12/07/18 at 1245, STAT nicotine (NICOTROL) 10 mg inhaler 1 Inha ler Given 12/07/2018 12:25 EDT 1 Inhaler 1 Inhaler, inhalation, EVERY 2 HOURS PRN, Starting on Wed12/07/18 at 1155, Until Wed12/07/18 at 1546, Smoking Cessation, STAT nicotine inhaler (delivery device) Given 12/07/2018 12:25 EDT 1 Each 1 Each, inhalation, PRN, Starting on Wed12/07/18 at 1155, Until Wed12/07/18 at 1546, Smoking Cessation documented in this encounter Active and Recently Administered Medications Times are shown in EDT. Scheduled Medication Order 12/05/2018 12/06/2018 12/07/2018 LORazepam (ATIVAN) tablet 0.5 mg (COMPLETED) 1228 (Given - Provider: Vania Melchor RN) 0.5 mg, oral, NOW X1, 1 dose, Wed12/07/18 at 1245, STAT PRN Medication Order 12/05/2018 12/06/2018 12/07/2018 nicotine (NICOTROL) 10 mg inhaler 1 Inhaler 1225 (Given - Provider: Vania Melchor RN) 1 Inhaler, inhalation, EVERY 2 HOURS PRN , Starting Wed12/07/18 at 1155, Until Wed12/07/18 at 1546, Smoking Cessation, STAT nicotine inhaler (delivery device) 1225 (Given - Provider: Vania Melchor RN) 1 Each, inhalation, PRN, Starting Wed at 1155, Until Wed12/07/18 at 1546, Smoking Cessation documented in this encounter Care Teams Physician Practice Coordinator Relationship Specialty Start Date End Date Sana Muhammad MD PCP - General 12/02/16 08/05/20 documented as of this encounter
--- OUTSIDE RECORDS SUMMARY | 2021-08-16 23:30 | XMS_ITS | Encounter Summary ---
:1990 Author Organization [facility] Address [address] [place] [address] Care Team Providers Name Role Phone Sana Muhammad MD Primary Care Provider Reason for Visit Reason Comments Drug Overdose PER EMS PT TOOK ABOUT 20 PILLS OF VRAYLAR STABLE HAND. PT HAS A HX OF SCHIZOPHRENIA. PT STATING MITCH STOCK IS TELLING HER TO HARM HERSELF AND THAT HER CHILDREN WILL COME OUT WITH DEVIL HORNS. Encounter Details Date Type Department Care Team Description 12/08/2018 Emergency [facility] Cydney Smith MD [address] [facility], [facility] [address] [place] [address] Mood disorder Emergency Department Amena Caldwell PA-C [address] [facility], [facility] [address] [place] [address] ([facility]) (Primary Dx) - [facility] Emergency, MD Chelsy [address] [place] [address] Social History Tobacco Use Types Packs/Day Years Used Date Current Every Day Smoker 1 10 Smokeless Tobacco: Never Used Alcohol Use Standard Drinks/Week Comments Yes 3 (1 standard drink = 0.6 oz pure alcoho l) occ Sex Assigned at Date Recorded Not on file documented as of this encounter Last Filed Vital Signs Vital Sign Reading Time Taken Comments Blood Pressure 120/91 12/08/2018 1420 EDT Pulse 95 12/08/2018 1420 EDT Temperature 36.6 ??C (97.9 ??F) 12/08/2018 0838 EDT Respiratory Rate 16 12/08/2018 1420 EDT Oxygen Saturation 99% 12/08/2018 1420 EDT Inhaled Oxygen Concentration - - Weight [...] as of this encounter Discharge Diagnoses Diagnosis T43.592A Poisoning by other antipsychoti cs and neuroleptics, intentional self-harm, initial encounter-T43.592A[ICD-10-CM] F29 Unsp psychosis not due to a substanc e or known physiol cond-F29[ICD-10-CM] J45.909 Unspecified asthma, uncomplicate d-J45.909[ICD-10-CM] F17.200 Nicotine dependence, unspecified , uncomplicated-F17.200[ICD-10-CM] F12.90 Cannabis use, unspecified, uncomp licated-F12.90[ICD-10-CM] Z79.899 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 Follow up with your outpatient providers. If you feel at risk of harming yourself please contact first call or return for evaluation. documented in this encounter Medications at Time of Discharge Medication Sig Dispensed Refills Start Date End Date Multivitamins with Take 1 Tab by mouth 0 12/01/19 19 Minerals tablet daily. tabletIndications: mineral deficiency prevention, vitamin deficiency prevention acetaminophen (TYLENOL) Take 2 Tabs by 0 12/01/19 19 02/24/2019 500 mg tabletIndications: mouth 3 times daily pain as needed for Pain. DULoxetine (CYMBALTA) 30 Take 30 mg by mouth 0 02/21/2019 mg delayed release capsule daily. LORazepam (ATIVAN) 1 mg Take 1 Tab by mouth 5 Tab 0 02/24/2019 tablet at bedtime as needed for Sleep. Daily Max: 1 mg melatonin 5 mg Take 5 mg by mouth 10 Tab 0 12/02/2018 tablet,disintegrating at bedtime. documented as of this encounter Discharge Disposition Disposition Code Departure Means Destination Home or Self Care Car documented in this encounter Consult Notes Scot Asencio, Pietro Kidd DO - 12/08/2018 1425 EDT Psychiatry Consultation Follow Up 12/08/2018 Patient Profile: Mary Grace Harris 28 y.o. female Consultation initially requested by: Raeann Smith MD Reason for Consultation: SI Interval History Mary Grace comes back to the ED only a few hours after she left reporting that she took an overdose on60mg cariprazine and a big bottle of wine. Notably, she does not have physiological evidence of anoverdose on cariprazine (no hypotension, no QTc prolongation) and her alcohol level is negative. This is her fourth visit to the ED in 48 hours, each time under dubious circumstances. On exam, she once again demonstrates the ability to have long stretches of conversation without any evidence of psychosis, followed by periods of time where she makes some bizarre statements. She does not appear to respond to internal stimuli. The topic of conversation appears to be the primary variable for her presenting as psychotic or not. With some direct communication of the physiological impossibility of her claims, she is eventually able to state clearly that he primary concern is housing. She used to live with a boyfriend, but sincethey broke up she is no longer able to make ends meet. Mary Grace is requesting to be placed at a [facility]. Unfortunately, by coming her today, she has missed her GENDER STUDIES PROFESSOR intake, which would actually have helped her move towards that goal. She states she wouldn't feel suicidal if she had housing. I also spend some time with the uncle, who notes inconsistent symptoms and statements over the course of many years. He reports she has cried fox on many occasions in the past. He is unsuprised by today's revelations. He volunteers to be the point person for Mary Grace in her attempts to access more a [facility] services. BP (!) 120/91 (BP Cuff Location: Left arm, Patient Position: Standing) Pulse 95 Temp 36.6 ??C (97.9 ??F) (Oral) Resp 16 SpO2 99% Mental Status Examination: Disheveled young woman, heavyset, laying on bed. Engaged, cooperative. No agitation or slowing. No obvious involuntary movements. Speech normal rate and tone. Mood anxious and affect restricted, euthymic. Thought process generally logical and coherent; with tight associations. Occasional non-sequitors. Expresses some odd beliefs but does not perseverate on them, no lula delusional content. Denies SI, plan or intent. No expresison of HI. Does not appear to respond to internal stimuli. Attention, concentration, fund of knowledge and memory grossly intact. AAOx4. I/J limited. Assessment: Mary Grace is a 28yo woman here for the fourth time in two days reporting an overdose for which there are no physiological correlates and from which she is experiencing no deleterious effects. Overdose on antipsychotics should produce hypotension and QT prolongation, which she does not have. Consuming >1L of wine in a short period of time should still demonstrate alcohol in one's system a few hours later, but this was negative. Essentially, she is malingering this presentation. She states that if she gets housing, she would not be experiencing these symptoms. At this point, itis worth noting that this presentation represents the phenomenon of contingent suicidality, which is a distinct entity from true (non-contingent) suicidality. The operational definition of contingent suicidality is statements about suicide specifically linked to treatment decisions such as admission, medication choices, etc. Patients with contingent suicidality have a 0% 7 year risk of completed suicide as compared to an 11% risk of those with noncontingent suicidality. (Psychiatr Serv. 2002 Mar; 53[1]:92-4) I strongly believe the best course of action would be for her to go to her GENDER STUDIES PROFESSOR appointment, which will be rescheduled and follow up with her PCP. An Assist referral has been made, but bed is not yet available. START referral made as well. For the aforementioned reasons, I do not experience her as being at greater than baseline level of risk. Primary Diagnoses: r/o unspecified psychosis; malingering. Recommendations: -- Clear for d/c -- START and Assist referrals made -- GENDER STUDIES PROFESSOR appt to be rescheduled -- Crisis PRN We will continue to round until placement is found. Thank you! Bradford Ellison DO Attending, Psychiatry I spent a total of 40 minutes in face to face time with this patient today and >50% of that time was spent in counseling and coordination of care as described in the progress note. documented in this encounter ED Notes Elsa Steen PA - 12/08/2018 1425 EDT DOS: 12/08/2018 Chief Complaint Patient presents with ??? Drug Overdose PER EMS PT TOOK ABOUT 20 PILLS OF VRAYLAR STABLE HAND. PT HAS A HX OF SCHIZOPHRENIA. PT STATING LUCIFER IS TELLING HER TO HARM HERSELF AND THAT HER CHILDREN WILL COME OUT WITH DEVIL HORNS. HPI The history is provided by the patient and medical records. Drug Overdose Associated symptoms: no cough, no shortness of breath and no vomiting I, Katherine Peña, am scribing for Elsa Steen PA while she is personally performing the service. Katherine Peña 12/29/2018 22:09 Mary Grace Harris is a 28 y.o. female with a history of Schizotypal personality disorder, depression,anxiety, obesity, chronic pain syndrome, fibromyalgia and asthma who presents for psychiatric evaluation. I'm going through more than a mid-life crisis. I keep seeing space ships coming out of my headand going into the hayley. People don't see it but I have a third eye and I see a lot of negative energy coming out of people. We have entered hell. Pt reports that she has been taking her medications asprescribed. She denies alcohol consumption this evening although did use marijuana and CBD. Pt denies thoughts of self harm, noting that she is being harm. [place] and does not feel safe there. Pt denies recent fever, chills and cough or cold symptoms. She denies pain anywhere. The patient's past medical, family and social history was reviewed and updated as needed. Review of Systems Review of Systems Constitutional: Negative for chills and fever. HENT: Negative for congestion, rhinorrhea and sore throat. Respiratory: Negative for cough and shortness of breath. Gastrointestinal: Negative for vomiting. Skin: Negative for wound. Psychiatric/Behavioral: Positive for dysphoric mood and hallucinations. Negative for self-injury andsuicidal ideas. The patient is nervous/anxious. Allergies Allergen Reactions ??? Gluten Protein ??? Haldol [Haloperidol Lactate] paralysis ??? Paxil [Paroxetine Hcl] Nausea And Vomiting Vital Signs Vitals Reassessment?: Yes Temp: 36.6 ??C (97.9 ??F) Temp src: Oral Pulse: 95 Heart Rate: 87 BPM Resp: 16 SpO2: 99 % BP: (!) 120/91 BP MAP: 96 mm Hg BP Device: BP Machine BP Patient Position: Standing BP Cuff Location: Left arm O2 Device: None (Room air) Physical Exam Constitutional: She is oriented to person, place, and time. She appears well- developed and well-nourished. No distress. HENT: Head: Normocephalic and atraumatic. Eyes: Conjunctivae and EOM are normal. Neck: Normal range of motion. Cardiovascular: Normal rate, regular rhythm, normal heart sounds and intact distal pulses. No murmur heard. Pulmonary/Chest: Effort normal and breath sounds normal. No stridor. No respiratory distress. She has no wheezes. She has no rales. Musculoskeletal: Normal range of motion. Neurological: She is alert and oriented to person, place, and time. Skin: Skin is warm and dry. No rash noted. She is not diaphoretic. No erythema. No pallor. Psychiatric: She is actively hallucinating (visual). She expresses no homicidal and no suicidal ideation. She expresses no suicidal plans and no homicidal plans. Does not feel safe where she is living Nursing note and vitals reviewed. RESULTS EKG orders: EKG 12-LEAD Radiology orders: None Procedures ED COURSE A medical screening exam was performed. Pt is a 28 y.o female with past medical history significant for Schizotypal personality disorder, depression, anxiety, obesity, chronic pain syndrome, fibromyalgia and asthma who presented for psychiatric evaluation, endorsing visual hallucinations and reportingthat she does not feel safe where she lives. On exam, pt was awake, alert, cooperative. Visually hallucinating. Denied SI/HI. Heart was RRR, no murmur. Lungs were clear to auscultation bilaterally. Exam findings otherwise unremarkable. In my medical opinion, this patient may meet EE criteria, and therefore cannot leave the Emergency Department prior to evaluation by CRISIS/psychiatry. 2216: Paged crisis. 2203: Consulted with territory account executive who will evaluate the pt. Final diagnoses: Mood disorder ([facility]) DISPOSITION: Discharged The patient's pain was managed [...] Condition at departure from the Emergency Department: Good PCP: Sana Muhammad MDM Number of Diagnoses or Management Options Mood disorder ([facility]): Diagnosis management comments: Mood disorder, anxiety, malingering 3 Amount and/or Complexity of Data Reviewed Review and summarize past medical records: yes Discuss the patient with other providers: yes This documentation is recorded by Katherine Peña acting as Scribe under the direction and presence of Elsa Steen PA. Elsa Steen PA: I personally performed the services recorded by the scribe in my presence. I confirm the scribe's documentation has been reviewed by me to accurately and completely record my work, treatment, procedures, and medical decision making. Ashley Coker MD was immediately available for supervision. 01/26/2019 23:00 No flowsheet data found. Jamir Zhou, APRIL Baugh - 12/08/2018 1421 EDT Care assumed from ulises smith. Patient reporting alcohol use and antipsychotic od but ULCILLE is 0 and QTC ok. Seen by psychiatry. Malingering suspected. Patient to discharge with her uncle for 2:45 pcp appointment. Patient is well appearing and agreeable to this plan. Sara Hong RN - 12/08/2018 1405 EDT Peripheral IV removed without incident. iladys Leo - 12/08/2018 0922 EDT Blood drawn via saline lock per protocol, tiger and purple tube(s) sent to lab per order. Miladys Leo - 12/08/2018 0921 EDT 12 Lead EKG Performed by MILADYS LEO and shown to Cynthia Smith MD. Ned thayer - 12/08/2018 0910 EDT Pt roomed and changed into gown with paper scrubs at bedside for after medical workup. Pt's belongings labelled and secured, moved to secure storage. 1:1 established. Belongings include Shift, pants, jacket, slippers, earrings. Ned thayer - 12/08/2018 0906 EDT 12 Lead EKG Performed by NED TIPTON and shown to Cynthia Smith MD. Cynthia Tipton MD, MD - 12/08/2018 0843 EDT This patient received an evaluation and medical screening exam for emergent medical conditions at the [facility] on 12/08/2018 Scribe attestation: This documentation is recorded by Cynthia Carmichael acting as Scribe under the direction and presence of Cynthia Smith MD. Cynthia Smith MD: I personally performed the services recorded by the scribe in my presence. I confirm the scribe's documentation has been reviewed by me to accurately and completely record my work, treatment, procedures, and medical decision making. Chief Complaint Drug overdose HPI Mary Grace Harris is a 28 y.o. female with PMH including obesity, depression, psychosis, anxiety, continuous marijuana use who presents to the ED via EMS for a drug overdose. According to the patient she called 911 this morning after taking about 20 pills of Vraylar and a giant bottle of wine last night around 0200. The patient endorses that it was a suicide attempt. Patient denies taking opiates, Tylenol or Ibuprofen. The patient says her feet feel cold but she otherwise cannot feel her body. The patient endorses that is a possibility. History was provided by: The patient and medical records. The history was limited due to the patients somnolent state. Patient's pertinent PMH, FH, SH were reviewed and updated PRN. ROS A 10 point review of systems has been performed and is otherwise negative except as noted in the HPI. Physical Exam Vital Signs Temp: 36.6 ??C (97.9 ??F) Temp src: Oral Pulse: 88 Resp: 19 SpO2: 100 % BP: 126/84 BP MAP: 95 mm Hg BP Device: BP Machine BP Cuff Location: Right arm O2 Device: None (Room air) Nursing notes and vital signs were reviewed. Constitutional: Somnolent but able to wake Eyes: Pupils equal and reactive to light, no scleral icterus Mouth: Moist oral mucosa without apparent lesions Neck: Full ROM, no cervical LAD Heart: RRR without MRG Lungs: Clear to auscultation Abdomen: Soft, nontender, nondistended Skin: No overt rashes on exposed skin Extremities: Moving spontaneously, warm and well perfused. Neuro: Grossly neurologically intact with normal speech Psych: Endorsing auditory and visual hallucinations Laboratory Results Labs Reviewed COMPLETE BLOOD COUNT AND DIFFERENTIAL - Abnormal Result Value Status WBC 12.05 Final RBC 4.84 Final Hemoglobin 14.2 Final HCT 41.0 Final MCV 85 Final MCH 29.3 Final MCHC 34.6 Final RDW-CV 12.1 Final RDW-SD 37.1 Final PLT 348 Final MPV 9.2 (*) Final Neutrophils 67.8 Final Lymphocytes 24.6 Final Monocytes 6.6 Final Eosinophils 0.2 Final Basophils 0.4 Final Immature Grans 0.4 Final ABS Neutrophils 8.17 Final ABS Lymphs 2.96 Final ABS Monocytes 0.79 Final ABS Eosinophils 0.03 Final ABS Basophils 0.05 Final ABS Immature Grans 0.05 Final Type of Diff: Automated Final COMPREHENSIVE METABOLIC PANEL (CMP) - Abnormal Potassium 4.2 Final Sodium 140 Final Chloride 103 Final CO2 26 Final Total Alkaline Phosphatase 52 Final Bilirubin, Total 0.7 Final AST 34 Final ALT 24 Final Albumin 4.7 Final Total Protein 7.3 Final Creatinine 0.51 (*) Final GFR, Calculated 130 Final BUN 3 (*) Final Calcium 9.8 Final Calculated Calcium 9.2 Final Glucose, Serum 101 (*) Final Fasting? Unknown Final GLUCOSE, GLUCOMETER - Abnormal Glucose, Fingerstick 124 (*) Final Plastic Installer ID [id number] Final ETHANOL, BLOOD Ethanol <10 Final SALICYLATE Salicylate <1.0 Final ACETAMINOPHEN Acetaminophen <10.0 Final POCT GLUCOSE, GLUCOMETER POCT URINE DIPSTICK, CLINITEK Color YELLOW Final Clarity, UA Clear Final Glucose Neg Final Bilirubin Neg Final Ketones Neg Final Specific Eagle 1.010 Final Blood Neg Final pH 6.0 Final Protein Neg Final Urobilinogen 0.2 Final Nitrite Neg Final Leuk Esterase Neg Final Tech ID [id number] Final POCT TEST, CLINITEK UPT Result Neg Final Tech ID [id number] Final Data Interpretation An EKG was obtained an independently interpreted: SR at 80 bpm. Normal axis and intervals and no ST elevations or depressions Laboratory results independently reviewed, significant for: CBC and CMP normal. Acetaminophen, ethanol and salicylate all negative. Urine and urine test negative. ED Course/Medical Decision Making A medical screening was performed. The patient is a 28 y.o. female with a history of obesity, marijuana use, depression, psychosis who presents to the ED with a drug overdose. Physical exam findings included the patients endorsement of auditory and visual hallucinations. The exam was limited due to the patients somnolent state. Differential diagnosis includes but is not limited to overdose, suicide attempt. 0852: Spoke with poison control about the Vraylar that the pt took. They recommend supportive management. 1105: Spoke with first call about the patient who agreed to add her to their list. The patient was medically cleared and transferred over to . Care taken over by Amena Caldwell PA-C. Concern by crisis and psychiatry that the patient may be malingering. Parts of her story do not add up. She does not have any prolongation of her QT on EKG which would suggest that she did not overdoseon her antipsychotic. In addition, she was in the emergency department until 4:00 this morning, and therefore drinking a large amount of alcohol at 2:00 AM is highly unlikely. Furthermore, it would be expected that the patient continues to have an elevated ethanol level, however it is undetectable. While under my care in the Emergency Department, the patient's pain was managed to an adequate levelweighing risk vs. benefit of medication. Patient signed out to Josee Caldwell PA-C with further evaluation and observation pending. documented in this encounter Miscellaneous Notes ED Consult - Samantha Hunter - 12/08/2018 1425 EDT Refiner Operator Initial Assessment Note Admit Date: 12/08/2018 Date of Consult: 12/08/2018 Suicidal Presenting Information: Mary Grace Harris is a 28 yo single female of mixed racial ancestry who presented to the Emergency Department this morning after reporting that she drank a bottle of wine and took remaining pills in her prescription bottle of Raylar (She estimates somewhere between 12 and 20 pills). Lab work done in the ED does not indicate the possibility of such ingestion however. Also, despitethe fact that client discharged from the ED early this morning (4:14 AM) and would have had to consume the bottle of wine within a perhaps 2 ?? to 3 hour window. Client???s LUCILLE upon arrival was 0.0. Due to reported SI, ED provider requested crisis screening. Client is a 28 yo single female of mixed ancestry who is known to the [facility] from more recentcrisis contacts. She has also been referred for GENDER STUDIES PROFESSOR services and unfortunately missed a schedule intake appointment this morning due to her arrival at the hospital. Client???s current prescriber of medication is her PCP, Dr. Muhammad of the [facility] affiliated with [facility] medicine. Client has been diagnosed with Unspecified Schizophrenia Spectrum Disorder though there is considerable speculation that she may in fact present with Schizotypal Personality Disorder (per Dr. Ellison, [facility] psychiatry). Client also been diagnosed with Cannabis and Alcohol Abuse Disorders. Client???s arrival to the ED this morning was the third presentation in a 24 hour period. Though sheverbally evidences features of active psychosis, client can present in a very organized manner when asked what she needs ?A senior care house?? or housing. When confronted with the reality that medical testing does not support her claims, client is rather adamant that she did drink a bottle of wineand did take pills. Immediately following this, she called her uncle, Maddy ([phone]). As in past encounters, client perseverates on themes of demonic possession as well as the spirit realm. Client tells this lyric writer ???I feel so bad about what I???ve gone through in life?? . ???The spirits are going into my stomach, some bad and some good.?? Client also tells this lyric writer ???I want to schedule an appointment to be euthanized.?? Client reports somewhat vague SI though in this moment does not have active plan or intent. Client instead perseverates that she is incapable of functioning alone in the community ??? she does not respond when confronted with the fact that she had a ???fast track?? to GENDER STUDIES PROFESSOR services that will now be delayed by her arrival here. This lyric writer spoke to Estrella who has been overseeing the case since her initial intake with the agency in late September. He has spoken to the interview team and they will try to schedule another intake as soon as possible. It should be noted that the uncle has become the ???point person?? and contact for Mary Grace???s future appointments. He states that he will be sureshe gets to all appointments if notified. Mary Grace???s functioning has deteriorated over the past month or so (and is evidenced by frequent crisis contacts) and it is unclear what the precipitant was. Approximately 6 weeks ago, Mary Grace surrendered custody of her six year old son to the care of her mother and uncle. According to the uncle, there is a court hearing today to formalize him a legal medical records custodian. Mary Grace has been admitted to [address] in a recent admission, asked to leave AMA shortly after coming on the unit. Client has similarlynot taken advantage of ASSIST resources more recently. Mary Grace is voluntary for an ASSIST referral at this time and review of records/FC alerts reveal CRTadministrators have also contacted ASSIST regarding placement. Substance Use (if applicable): Client endorses use of CBD and alcohol. Relevant Psychosocial Information: Client lives alone. Mental Status Appearance: Disheveled and Poor Hygiene Attitude: Guarded Behavior: Psychomotor Agitation Pressured Mood: Irritable Sleep Pattern: Difficulty Falling Asleep and Difficulty Staying Asleep Appetite: Increased Appetite Affect: Constricted Thought Process: Clear, Coherent, Organized and Goal-Directed and Circumstantial Perception: Delusions Cognitions: Alert and Oriented Insight: Poor Judgement: Poor Concentration: Poor Orientation: Oriented times three Risk Assessment Suicidality: Low Homicidality: Low Clinical Interpretation: : Client is a 28 yo client of the [facility] scheduled to be added to GENDER STUDIES PROFESSOR CM services upon intake though her failure to maintain a scheduled appointment today has delayed this process. She has had frequent contacts with crisis over the past 6 weeks, presenting with featuresof psychosis but simultaneously able to sustain lucid and organized conversation when confronted by discrepancies in her presentation. She does not meet criteria for consideration of inpatient admission per psychiatry but might benefit from a referral to [facility] in an effort to redirect her more frequent use of the Emergency Department. Plan: The plan for this patient is: [facility] Consultation with: Dr. Bradford Hunter Refiner Operator First Call for [facility] documented in this encounter Plan of Treatment [...] more about your health please v isit: [email or web address]://www.[facility].org/medcenter/Pages/Wellness-Resources/Qnuaoustl-Gzwowj-Yd documented as of this encounter Procedures Procedure Name Priority Date/Time Associated Comments Diagnosis ECG REPORT - SCANNED 12/14/2018 15:46 EDT POCT TEST, STAT 12/08/2018 11:21 Res ults for this CLINITEK EDT procedure are i n the results section. POCT URINE DIPSTICK, STAT 12/08/2018 11:09 Res ults for this CLINITEK EDT procedure are i n the results section. GLUCOSE, GLUCOMETER Routine 12/08/2018 9:26 Resul ts for this EDT procedure are i n the results section. ETHANOL, BLOOD STAT 12/08/2018 9:18 Results fo r this EDT procedure are i n the results section. ACETAMINOPHEN STAT 12/08/2018 9:18 Results for this EDT procedure are i n the results section. SALICYLATE STAT 12/08/2018 9:18 Results for this EDT procedure are i n the results section. COMPREHENSIVE STAT 12/08/2018 9:18 Results for this METABOLIC PANEL (CMP) EDT proced ure are in the results section. EKG 12-LEAD STAT 12/08/2018 9:05 Results for this EDT procedure are i n the results section. COMPLETE BLOOD COUNT STAT 12/08/2018 8:55 Resu lts for this AND DIFFERENTIAL EDT procedure a re in the results section. documented in this encounter Results POCT TEST, CLINITEK (12/08/2018 11:21 EDT) Pathologist Sig nature UPT Result Neg Neg [facility]OR[facility] tax credit leasing consultant ID [id number]: [facility] Test performed at LABORATORY SERVICES Emergency Department Specimen Urine (substance) - Urine Performing Organization Address City/State/ZIP Code Phon e Number [facility] [address] [place] [address] SERVICES POCT URINE DIPSTICK, CLINITEK (12/08/2018 11:09 EDT) Color YELLOW Yellow [facility] SERVICES Clarity, UA Clear Clear [facility] SERVICES Glucose Neg Neg [facility] SERVICES Bilirubin Neg [facility] LABORATORY SERVICES Ketones Neg Neg [facility] SERVICES Specific Eagle 1.010 1.001 - 1.035 [facility] SERVICES Blood Neg [facility] LABORATORY SERVICES pH 6.0 4.6 - 8.0 [facility] SERVICES Protein Neg [facility] LABORATORY SERVICES Urobilinogen 0.2 0.2 - 1.0 [facility] mg/dL LABORATORY SERVICES Nitrite Neg Neg [facility] SERVICES Leuk Esterase Neg [facility] LABORATORY tax credit leasing consultant ID [id number]: [facility] Test performed at LABORATORY Emergency SERVICES Department Specimen Urine (substance) - Urine Performing Organization Address City/[facility]/ZIP Code Phon e Number [facility] [address] [place] [address] SERVICES (ABNORMAL) GLUCOSE, GLUCOMETER (12/08/2018 9:26 EDT) Glucose, 124 (H) 70 - 100 [facility] Fingerstick mg/dl LABORATORY SERVICES Plastic Installer ID [id number]: [facility] Test Performed by LABORATORY Nursing Services SERVICES Specimen Blood Performing Organization Address City/State/ZIP Code Phon e Number [facility] [address] [place] [address] SERVICES (ABNORMAL) COMPREHENSIVE METABOLIC PANEL (CMP) (12/08/2018 9:18 EDT) Potassium 4.2 3.5 - 5.0 [facility] Comment: mEq/L [facility] Slight hemolysis SERVICES Hemolysis may elevate potassium result. Sodium 140Comment: Slight 136 - 145 [facility] hemolysis mEq/L [facility] SERVICES Chloride 103Comment: Slight 96 - 110 [facility] hemolysis mEq/L [facility] SERVICES CO2 26Comment: Slight 22 - 32 mEq/L [facility] hemolysis [facility] SERVICES Total Alkaline 52 38 - 126 U/L [facility] Phosphatase Comment: [facility] Slight hemolysis SERVICES Hemolysis will decrease ALKP result Suggest re-evaluation if clinically indicated Bilirubin, Total 0.7 <1.4 mg/dl [facility] Comment: [facility] Slight hemolysis SERVICES Results may be affected due to hemolysis. AST 34 15 - 46 U/L [facility] Comment: [facility] Slight hemolysis SERVICES Results may be affected due to hemolysis. ALT 24 <34 U/L [facility] Comment: [facility] Slight hemolysis SERVICES Results may be affected due to hemolysis. Albumin 4.7 3.4 - 4.9 [facility] Comment: g/dl [facility] Slight hemolysis SERVICES Results may be affected due to hemolysis. Total Protein 7.3 6.3 - 8.2 [facility] Comment: g/dl [facility] Slight hemolysis SERVICES Results may be affected due to hemolysis. Creatinine 0.51 (L)Comment: 0.52 - 1.04 [facility] Slight hemolysis mg/dl [facility] SERVICES GFR, Calculated 130 >60 [facility] Comment: ml/min/1.73m2 [facility] eGFR calculated using CKD-EPI equation for SERVICES non Americans. Multiply eGFR by 1.16 for Americans. BUN 3 (L) 10 - 26 mg/dl [facility] Comment: [facility]ORY Slight hemolysis SERVICES Results may be affected due to hemolysis. Calcium 9.8Comment: Slight 8.5 - 10.5 [facility] hemolysis mg/dl [facility] SERVICES Calculated Calcium 9.2 8.5 - 10.5 [facility] mg/dl [facility] SERVICES Glucose, Serum 101 (H) 70 - 100 [facility] Comment: mg/dl [facility] Slight hemolysis SERVICES Results may be affected due to hemolysis. Fasting? Unknown [facility] SERVICES Specimen Blood specimen (specimen) - Blood Performing Organization Address City/[facility]/ZIP Code Phon e Number [facility] [address] [place] [address] SERVICES ACETAMINOPHEN (12/08/2018 9:18 EDT) Acetaminophen <10.0 ug/ml [facility] Comment: LABORATORY SERVICES Slight hemolysis Therapeutic range: ??10 - 30 ug/mL Possible toxicity: ??150 - 200 ug/mL Probable toxicity: ??>200 ug/mL Specimen Blood specimen (specimen) - Blood Performing Organization Address City/State/ZIP Code Phon e Number [facility] [address] [place] [address] SERVICES SALICYLATE (12/08/2018 9:18 EDT) Pathologist Sig nature Salicylate <1.0 mg/dl [facility] Comment: LABORATORY SERVICES Slight hemolysis Negative = <2 mg/dl Therapeutic = <20 mg/dl Toxic = >30 mg/dl Specimen Blood specimen (specimen) - Blood Performing Organization Address City/State/ZIP Code Phon e Number [facility] [address] [place] [address] SERVICES ETHANOL, BLOOD (12/08/2018 9:18 EDT) Pathologist Sig nature Ethanol <10Comment: Slight <10 mg/dl [facility] hemolysis LABORATORY SERVICES Specimen Blood specimen (specimen) - Blood Performing Organization Address City/State/ZIP Code Phon e Number [facility] [address] [place] [address] SERVICES EKG 12-LEAD (12/08/2018 9:05 EDT) Specimen Narrative [facility] EKG - 12/14/2018 15:4 2 EDT ?[facility] Emergency ? Test Date: ?2018-12-08 Pat Name: ? MARY GRACE HARRIS ? Department: ?? ED ? Room: ? AC01 Gender: ? Female ? Associate Store Director: ?? [id number] : ?1990 ? Requested By: CYNTHIA SMITH MD Order Number: [id number] ? Reading MD: ?? HELIOBRIAN BRUNO MD ? Measurements Intervals ?[facility] ? Rate: ? 80 ? P: ?143 MN: ? 143 ?QRS: ?133 QRSD: ? 100 ?T: ?143 QT: ? 383 ? QTc: ?443 ? Interpretive Statements SINUS RHYTHM LEFT POSTERIOR FASCICULAR BLOCK Compared to ECG 11/06/2018 15:11:18 Left posterior fascicular block now pres ent I reviewed the tracing and have either a greed or edited the findings in this report. Electronically Signed On 12-15-19 15:42:48 EDT by HELIO BRUNO MD. Procedure Note Sandra Montana, Helio Eubanks Jr., MD - 12/14/2018 [facility] Emergency Test Date: 2018-12-08 Pat Name: MARY GRACE HARRIS Department: ED Room: [facility] Gender: Female Associate Store Director: [id number] : 1990 Requested By: CYNTHIA SMITH MD Order Number: [id number] Kyle MD: Anca BRUNO MD Measurements Intervals [facility] Rate: 80 P: 143 MN: 143 QRS: 133 QRSD: 100 T: 143 QT: 383 QTc: 443 Interpretive Statements SINUS RHYTHM LEFT POSTERIOR FASCICULAR BLOCK Compared to ECG 11/06/2018 15:11:18 Left posterior fascicular block now pres ent I reviewed the tracing and have either a greed or edited the findings in this report. Electronically Signed On 12-15-19 15:42:48 EDT by HELIO BRUNO MD. Performing Organization Address City/State/ZIP Code Phon e Number [facility] EKG (ABNORMAL) COMPLETE BLOOD COUNT AND DIFFERENTIAL (12/08/2018 8:55 EDT) Pathologist Sig nature WBC 12.05 4.0 - 12.4 [facility] LABORATORY SERVICES RBC 4.84 3.86 - 5.04 [facility] LABORATORY SERVICES Hemoglobin 14.2 11.6 - 15.2 [facility] gm/dl LABORATORY SERVICES HCT 41.0 34.9 - 44.4 % [facility]ORATORY SERVICES MCV 85 81 - 98 fl [facility]ORATORY SERVICES MCH 29.3 26.7 - 33.3 pg [facility] LABORATORY SERVICES MCHC 34.6 32.1 - 35.9 [facility] gm/dl LABORATORY SERVICES RDW-CV 12.1 <14.7 % [facility] LABORATORY SERVICES RDW-SD 37.1 <50.4 fl [facility] LABORATORY SERVICES PLT 348 141 - 377 /[facility] LABORATORY SERVICES MPV 9.2 (L) 9.5 - 12.7 fl [facility]ORATORY SERVICES Neutrophils 67.8 % [facility] LABORATORY SERVICES Lymphocytes 24.6 % [facility] LABORATORY SERVICES Monocytes 6.6 % [facility] LABORATORY SERVICES Eosinophils 0.2 % [facility]ORATORY SERVICES Basophils 0.4 % [facility] LABORATORY SERVICES Immature Grans 0.4 % [facility] LABORATORY SERVICES ABS Neutrophils 8.17 2.20 - 8.85 [facility] LABORATORY SERVICES ABS Lymphs 2.96 1.09 - 3.30 [facility] LAB[facility]ATORY SERVICES ABS Monocytes 0.79 0.1 - 0.8 /[facility] LABORATORY SERVICES ABS Eosinophils 0.03 0.03 - 0.61 [facility] LABORATORY SERVICES ABS Basophils 0.05 0.01 - 0.11 [facility] LABORATORY SERVICES ABS Immature Grans 0.05 0 - 0.06 /[facility] LABORATORY SERVICES Type of Diff: Automated [facility] LABORATORY SERVICES Specimen Blood specimen (specimen) - Blood Performing Organization Address City/State/ZIP Code Phon e Number [facility] [address] [place] [address] SERVICES documented in this encounter Visit Diagnoses Diagnosis Mood disorder (HCC-CMS) (HCC) - Primary Unspecified episodic mood disorder documented in this encounter Orders Lab Orders Without Results Count Last Ordered Date Fir st Ordered Date POCT GLUCOSE, GLUCOMETER 1 12/08/2018 Procedures Count Last Ordered Date First Ordered Date ECG REPORT - SCANNED 1 12/15/2018 Nursing Count Last Ordered Date First Ordered Date INSERT PERIPHERAL IV 1 12/08/2018 documented in this encounter Care Teams Magneto Specialist Relationship Specialty Start Date End Date Sana Muhammad MD PCP - General 12/02/16 08/05/20 documented as of this encounter
--- OUTSIDE RECORDS SUMMARY | 2021-08-16 23:30 | XMS_ITS | Encounter Summary ---
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[facility]) ([facility]) Sana Muhammad MD [address] [place] [phone] Referral ID Status Reason Start Date Expiration Date Visits V isits Requested Authorized [id number] Closed Specialty 12/07/2018 1 1 Services Required Question Answer Reason for referral: Complex care coordination Is patient aware referral is being made: No Services currently in place, if known: has some social media strategist in place, Damon Wyman If other than the patient, who should the bharat Smart ther if cannot reach patient team contact: (she does not have a phone l ast we knew) Comments Ana Laura Decker Reason for Visit Reason Onset Date Comments Psychiatric Evaluation 12/07/2018 Encounter Details Date Type Department Care Team Description 12/07/2018 Telephone [facility] Sana Muhammad Ps ychiatric Evaluation Family Medicine - [address] [id number] [phone] (Wo rk) Social History Tobacco Use Types [...] this encounter Miscellaneous Notes Telephone Encounter - Yamileth Hui MD - 12/08/2018 5608 EDT Met with pt today. She and her uncle were discussing a lot of services that I am not familiar with and are very eager to have her move into a facility. They mentioned [facility] and half way housing. They were also distraught that she missed CGT(? They were not sure of the acronym) meeting from today while she was in the ER, which was a meeting meant to connect her with potential resources/housing options. I am thinking they meant [facility]. Alize, will you reach out to them this week, 12/09? I told them I would get them in touch with [facility]/SW, which they were very excited about. Unfortunately I did not have much to offer her. She was asking about a tubal ligation, plan B for today, and the possibility of undergoing physician assisted , all of which I have addressed. Yamileth Hui MD elephone Encounter - Lissa Lan RN - 12/08/2018 1408 EDT Patient scheduled for 2:45pm appt with Dr Hui today. Per Epic, patient still in ED. Telephone call to ED- state patient will not be making it to appointment as she will be with them for a while today. Appointment cancelled- minutes later ED called back and stated that she is being discharged and willbe at her appointment today; appointment rescheduled by PSS. elephone Encounter - Krista Duong MD - 12/07/2018 1108 EDT I directly evaluated Mary Grace yesterday, she does not require psychiatric admission. She is utilizing the ED a great deal in order to obtain a bed at [facility]. She was discharged yesterday without meeting criteria for even an assist referral, the only reason she was provided transportation to assist wasbecause that was the location of her car. I believe if we can identify why she is seeking this supportive housing we can stop this cycle. She does have a [facility] rn case management and psychiatrist, therefore I cannot see her through the [place] office going forward. I suggest we point Mary Grace and her family towards community supports going forward unless there is specific SI/HI. If she requires evaluation we should provide the [facility] crisis number [phone] that she can be assessed in the community rather than presenting to the ED. elephone Encounter - Lissa Lan RN - 12/07/2018 1055 EDT Referral placed to Auto Engine Mechanic Ana Laura Decker RN after discussion with her. elephone Encounter - Lissa Lan RN - 12/07/2018 1005 EDT Spoke to Bing. She states patient was in the ER yesterday and sent home. She is on her way back there now. Bing states she is totally without any reality. She thinks peple are sabotaging her and that other people are sucking her soul out. States she was discharged from ED yesterday and got a cab back to [facility] but there was no bed for her there so she went home. Bing states patient kicked her door in thinking she didn't have her zuniga but it was on her keychain inher pocket. Bing and her son Napoleon take care of Mary Grace's son and Bing states that the social media executive is trying toget an emergency order for Napoleon to become guardian. Bing states Mary Grace's son is safe. Bing states she can be so lucid when she is evaluated at times so the ER docs keep thinking she is fine to go home. She is not fine!. Advised Bing that I think it is a good idea she is going back to the ER if she does not feel safe. Bing wants Dr Muhammad to have input as she feels she should not keep getting discharged from the ER. Advised I am not sure we can do much but that I would inform her of this. Of note, patient scheduled tomorrow with Dr Hui. elephone Encounter - Doug Rojo - 12/07/2018 0933 EDT Reason for Call: Psychiatric Evaluation Summary/Symptoms: Patient is not doing well again, they are going to take her back to the hospital again for evaluation. Wants to speak to Dr Muhammad. Onset and Duration? Ongoing Appointment Offered? No Doug Rojo 12/07/2018 9:34 documented in this encounter Plan of Treatment Scheduled Referrals Name Type Priority Associated Diagnoses Order S chedule AMB CONS/FOLLOW UP Outpatient Referral Routine Disorganized Or dered: MEDICAL HOME CARE schizophrenia 9 MANAGEMENT ([facility] documented as of this encounter Goals Goal Patient Goal Associated Recent Patient-Stated? 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
--- OUTSIDE RECORDS SUMMARY | 2021-08-16 23:30 | XMS_ITS | Encounter Summary ---
:1990 Author Organization [facility] Address [address] [place] [address] Care Team Providers Name Role Phone Sana Muhammad MD Primary Care Provider Reason for Visit Reason Onset Date Comments Results 02/22/2019 Encounter Details Date Type Department Care Team Description 02/22/2019 Telephone [facility] Adele Maki, RN Results Medicine - [address] [address] Social History Tobacco Use Types [...] this encounter Miscellaneous Notes Telephone Encounter - Lesly Maki RN - 02/22/2019 5913 EST Patient walked in. I printed lab results for her of NEG test for her. Confirmed her appt Wednesday for nexplanon removal and replacement. Talked with patient about things that can cause amenorrhea as she has not had a period in almost 2 months. Pt then asked for a referral to HOSPICE CLINICAL MANAGER for tubal ligation I am mentally ill, I just see and feel things a lot that aren't there and not real, I would like tohave a referral to have my tubes tied so that I don't have the option of bringing this on to a child. Discussed with Patient that psychiatric medication refill need to come from [facility] and to contact them r/t questions she had about refills. Will send to Dr Morales to discuss with Patient on Wednesday. LESLY MAKI RN 02/22/2019 14:59 elephone Encounter - Lesly Maki RN - 02/22/2019 0858 EST Patient not a MyChart user; Only contact number is Bing - NN with her just to have Pt call us. When she calls back please relay message from Dr. Morales. LESLY MAKI RN 02/22/2019 9:14 elephone Encounter - Lesly Maki RN - 02/22/2019 0857 EST ----- Message from Jim Morales MD sent at 02/21/2019 19:11 EST ----- Please call or send message note that test was negative. documented in this encounter Plan of Treatment [...] more about your health please v isit: https://www.[facility].org/medcenter/Pages/Wellness-Resources/Wvamzgfkm-Mnbuio-Ge documented as of this encounter Visit Diagnoses Not on filedocumented in this encounter Care Teams Weapons Officer Relationship Specialty Start Date End Date Sana Muhammad MD PCP - General 12/02/16 08/05/20 documented as of this encounter
--- OUTSIDE RECORDS SUMMARY | 2021-08-16 23:30 | XMS_ITS | Encounter Summary ---
:1990 Author Organization [facility] Address [address] [place] [address] Care Team Providers Name Role Phone Sana Muhammad MD Primary Care Provider Encounter Details Date Type Department Care Team Description 12/07/2018 Patient Outreach [facility] Esperanza Knight RN [address] [address] Social History Tobacco Use Types [...] Notes Ana Laura Walsh, RHODA - 12/07/[address] Duong, who saw patient yesterday in the ER. Patient is going to ER without calling [facility] [address]. Dr Duong has updated the ER policy to call Damon barnes when patient arrives. Patient is hooked with Damon with a Psychiatrist and a Farmworker [employer]. I will call Damon to notify them of patient being in the ER at this time. Will also called Emergency contact Bing Harris to notify her that patient is in the ER. ANA LAURA WALSH RN 12/07/2018 13:43 documented in this encounter Plan of Treatment [...] your health please v isit: https://www.[email or web address]/medcenter/Pages/Wellness-Resources/Ruiedalmh-Qktswm-Yb documented as of this encounter Visit Diagnoses Not on filedocumented in this encounter Care Teams Board Layer Relationship Specialty Start Date End Date Sana Muhammad MD PCP - General 12/02/16 08/05/20 documented as of this encounter
--- OUTSIDE RECORDS SUMMARY | 2021-08-16 23:30 | XMS_ITS | Encounter Summary ---
:1990 Author Organization [facility] Address [address] [place] [address] Care Team Providers Name Role Phone Sana Muhammad MD Primary Care Provider Reason for Visit Reason Comments Contraception Left nexplanon removal and r eplacement. Encounter Details Date Type Department Care Team Description 02/24/2019 Procedure visit [facility] Jim Morales for other Family Medicine - MD Dave contraceptive [address] ([address]) [place] [id number] [phone] Social History Tobacco Use Types Packs/Day Years Used Date Current Every Day Smoker 1 10 Smokeless Tobacco: Never Used Alcohol Use Standard Drinks/Week Comments Yes 3 (1 standard drink = 0.6 oz pure alcoho l) occ Sex Assigned at Date Recorded Not on file documented as of this encounter Last Filed Vital Signs Vital Sign Reading Time Taken Comments Blood Pressure 118/70 02/24/2019 1600 EST Pulse 116 02/24/2019 1600 EST Temperature - - Respiratory Rate 12 02/24/2019 1600 EST Oxygen Saturation - - Inhaled Oxygen Concentration - - Weight 117.9 kg (260 lb) 02/24/2019 1600 EST Height 165.1 cm (5' 5) 02/24/2019 1600 EST Body Mass Index 43.27 02/24/2019 1600 EST documented in this encounter Functional Status [...] or older) documented as of this encounter Ordered Prescriptions Prescription Sig Dispensed Refills Start Date End Date calcium carbonate (TUMS) Take 1-2 Tabs by 30 Tab 2 02/24 200 mg calcium (500 mg) mouth 4 times daily tablet,chewableIndications as needed for : dyspepsia, heartburn Heartburn or Indigestion. acetaminophen (TYLENOL) Take 2 Tabs by mouth 50 Tab 0 500 mg tabletIndications: 3 times daily as pain needed for Pain. documented in this encounter Progress Notes Rosmery Person LPN - 02/24/2019 1545 EST Nexplanon NDC- 7832-4831-11 Lot- [id number] EXP- 12/16/2020 ROSMERY PERSON LPN 02/27/2019 8:30 iJm Brown MD - 02/24/2019 1545 EST Associated Order(s): Nexplanon removal and reinsertionPost-Procedure Diagnose(s): Encounter for other contraceptive management Nexplanon removal and reinsertion Date/Time: 02/24/2019 16:38 Performed by: Jim Morales MD Authorized by: Jim Morales MD Consent: Verbal consent obtained. Written consent obtained. Consent given by: patient Patient understanding: patient states understanding of the procedure being performed Patient consent: the patient's understanding of the procedure matches consent given Procedure consent: procedure consent matches procedure scheduled Relevant documents: relevant documents present and verified Test results: test results available and properly labeled Site marked: the operative site was not marked Patient identity confirmed: verbally with patient Time out: Immediately prior to procedure a time out was called to verify the correct patient, procedure, equipment, ground support agent and site/side marked as required. Preparation: Patient was prepped and draped in the usual sterile fashion. Local anesthesia used: yes Anesthesia: local infiltration Anesthesia: Local anesthesia used: yes Local Anesthetic: lidocaine 1% with epinephrine Sedation: Patient sedated: no Patient tolerance: Patient tolerated the procedure well with no immediate complications Comments: Nexplanon removal and Insertion Consent was obtained after discussing risks and benefits of implanted progestin contraceptive. Patient given patient information handout from the packaging. A time out was done to confirm the patients identification and there desire to have an implanatable contraceptive placed in the arm. The arm with previous implant was identified and marked, incorporating patients preference. The patient was positioned and the skin area sterilized with betadine. Area of insertion was anesthetized using less than 5 cc of 1% lidocaine with epinephrine. A #11 blade was used to open the skin and the old device was removed with needle nose forceps without difficulty. The insertion device was used through the same incisionand elevate the skin and deposit the contraceptive device just beneath the surfaceof the skin. After the procedure it was confirmed that the patient and provider could palpate the device. The area was wrapped with a sterile dressing and stretchable wrap. After care instructions included keep wrapped for 48 hours, watching for signs of infection and follow up for routine health care and well care visits. Jim Morales MD Yudy Morocho LPN - 02/24/2019 1545 EST POCT UPT performed per orders of Dr. Morales results negative. YUDY HARRIS LPN 02/24/2019 16:31 Anton Sanchez - 02/24/2019 1544 EST Nexplanon Placement Lot #: [id number] EXP: 12-16-[address] [facility]#:1191-2550-09 documented in this encounter Plan of Treatment Not on filedocumented as of this encounter Goals Goal Patient Goal Associated Recent Patient-Stated? 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 GENERAL PROCEDURE Routine 02/24/2019 15:45 Encounter for other Results for this EST contraceptive procedure are in management the results section. documented in this encounter Results POCT TEST, VISUAL READ (02/24/2019 16:25 EST) Pathologist Sig nature Test, Urine, Negative Negative POINT OF CARE [facility] POC Control Line Present Yes POINT OF CARE [facility] Background Clear? Yes POINT OF CARE [facility] Specimen Urine Performing Organization Address City/State/ZIP Code Phon e Number [facility] POINT OF CARE POINT OF CARE [facility] GENERAL PROCEDURE (02/24/2019 15:45 EST) Narrative POINT OF CARE [facility] - 02/24/2019 15:[address] Jim Morales MD ? 03/02/2019 ??7:47 Nexplanon removal and reinsertion Date/Time: 02/24/2019 16:38 Performed by: Jim Morales MD Authorized by: Jim Morales MD Consent: Verbal consent obtained. Addi perez consent obtained. Consent given by: patient Patient understanding: patient states un derstanding of the procedure being performed Patient consent: the patient's understan ding of the procedure matches consent given Procedure consent: procedure consent mat ches procedure scheduled Relevant documents: relevant documents p resent and verified Test results: test results available and properly labeled Site marked: the operative site was not marked Patient identity confirmed: verbally wit h patient Time out: Immediately prior to procedure a time out was called to verify the correct patient, procedure, equipmen t, ground support agent and site/side marked as required. Preparation: Patient was prepped and tip ped in the usual sterile fashion. Local anesthesia used: yes Anesthesia: local infiltration Anesthesia: Local anesthesia used: yes Local Anesthetic: lidocaine 1% with epin ephrine Sedation: Patient sedated: no Patient tolerance: Patient tolerated the procedure well with no immediate complications Comments: Nexplanon removal and Insertio n Consent was obtained after discussing ri sks and benefits of implanted progestin contraceptive. ??Patient given patient information handout from the packaging. ??A time out was done to confirm the patients identification and there desire to have an implanatable contraceptive placed in the arm. The arm with previous implant was identi fied and marked, incorporating patients preference. ??The patient was p ositioned and the skin area sterilized with betadine. ??Area of inse rtion was anesthetized using less than 5 cc of 1% lidocaine with epinephri ne. ??A #11 blade was used to open the skin and the old device was removed with needle nose forceps without difficulty. ??The insertion device was u sed through the same incisionand elevate the skin and deposit the contrac eptive device just beneath the surface of the skin. ??After the procedu re it was confirmed that the patient and provider could palpate the d evice. ??The area was wrapped with a sterile dressing and stretchable wrap. After care instructions included keep wr apped for 48 hours, watching for signs of infection and follow up for [facility] care and well care visits. Jim Morales MD Performing Organization Address City/State/ZIP Code Phon e Number [facility] POINT OF CARE POINT OF CARE [facility] documented in this encounter Visit Diagnoses Diagnosis Encounter for other contraceptive manage ment - Primary documented in this encounter Discontinued Medications Medication Sig Discontinue Reason Start Date End Date acetaminophen (TYLENOL) Take 2 Tabs by mouth Reorder 9 02/24/2019 500 mg 3 times daily as tabletIndications: pain needed for Pain. calcium carbonate (TUMS) Take 1-2 Tabs by Reorder 12/08/2018 02/24/2019 200 mg calcium (500 mg) mouth 4 times daily tablet,chewableIndicatio as needed for ns: dyspepsia, heartburn Heartburn or Indigestion. documented as of this encounter Historical Medications This list may reflect changes made after this encounter. Medication Sig Dispensed Refills Start Date End Date LORazepam (ATIVAN) 1 mg Take 1 Tab by mouth 5 Tab 0 03/17/2019 tablet at bedtime as needed for Sleep. Daily Max: 1 mg added in this encounter Care Teams Historic Preservationist Relationship Specialty Start Date End Date Sana Muhammad MD PCP - General 12/02/16 08/05/20 documented as of this encounter
--- OUTSIDE RECORDS SUMMARY | 2021-08-16 23:30 | XMS_ITS | Encounter Summary ---
:1990 Author Organization [facility] Address [address] [place] [address] Care Team Providers Name Role Phone Sana Muhammad MD Primary Care Provider Reason for Visit Reason Onset Date Comments Medications Refill 02/13/2019 Medications Refill 07/12/2019 Encounter Details Date Type Department Care Team Description 02/13/2019 Refill [facility] Sana Muhammad, [place] dications Refill; Family Medicine - Medications Refill [address] [place] [address] [place] [address] [phone] Social History Tobacco Use Types Packs/Day Years [...] this encounter Miscellaneous Notes Telephone Encounter - Clemencia Aponteily - 07/12/2019 1424 EDT Please close this encounter as I no longer have security access. Thank you! elephone Encounter - Lesly Maki RN - 02/13/2019 1609 EST Images from the original note were not included. Krista Duong MD ?? 02/13/19 15:47 I can't fully explain that. 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 I would let pharmacy know to contact them- Mary Grace will likely have to provide them with name/number if it is not the most recent prescriber ( though it should be). Call to [facility], they do not have a release on file so they could not provide with a name or contact for case management social worker at [facility]; Pt would need to call them in order to discuss anything. Call to 's phone as she requested by Pt when I spoke with her in person; Asked to have Pt give us a call back; but any future medication refills need to go through the [facility]. LESLY MAKI RN 02/13/2019 16:20 elephone Encounter - Lesly Maki RN - 02/13/2019 1454 EST Call to [facility]; On 02/12/19 Pt picked up 8 days worth of 0.5 mg, was given #32 tablets. Max 2 mg per day. Last script I can per our records is 11/14/18 with Carol Ann Woods for 2 mg tablets #8 - 4 days. Pharmacist can see this as well, verified this is the same script I am seeing that they filled, and that it was not a paper script brought in; however he was not the one who filled this - I am not sure why it got filled this way, she (the other pharmacist that is no longer there) must have spoken to someone so that it was filled his way. No notes to support change. Spoke with Patient, Verified she filled at the pharmacy, was sent there for her - no paper script, and is just hoping tocontinue to get it continuously prescribed. States she just saw Bailey Garrido. Of note, Pt just picked up Bactrim script and I am wondering if she had an old prescription pending and was filled off this 11/14/18 script as I can not see documention of it being actively prescribed (or taking) anywhere. LESLY MAKI RN 02/13/2019 15:13 elephone Encounter - Miladys Aponte - 02/13/2019 1410 EST Medication(s) Requested: Risperdal Preferred Pharmacy: [facility] Is patient out of medication? No Last Refill Date: 11/14/2018 Last Visit Date with Ordering Provider: 02/09/2019 Next Non-Acute Visit Date Scheduled with Care Team: No. Patient came in today asking for a refill of risperdal, its discontinued in her chart but she statesthat she picked up an 8 day supply 2 days ago. Miladys Aponte 02/13/2019 14:18 documented in this encounter Plan of Treatment Not on filedocumented as of this encounter Goals Goal Patient Goal Associated Recent Patient-Stated? 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aJni, dependence Vania syndrome Healthy General On track [...] about your health please v isit: https://www.[facility].org/medcenter/Pages/Wellness-Resources/Fcvtztqco-Ydvusb-Eg documented as of this encounter Visit Diagnoses Not on filedocumented in this encounter Care Teams Chart Calculator Relationship Specialty Start Date End Date Sana Muhammad MD PCP - General 12/02/16 08/05/20 documented as of this encounter
--- OUTSIDE RECORDS SUMMARY | 2021-08-16 23:30 | XMS_ITS | Encounter Summary ---
:1990 Author Organization [facility] Address [address] [place] [address] Care Team Providers Name Role Phone Sana Muhammad MD Primary Care Provider Reason for Visit Reason Onset Date Comments Medication Management 02/21/2019 Appointment Related 02/21/2019 Encounter Details Date Type Department Care Team Description 02/21/2019 Telephone [facility] Sana Muhammad, [place] dication Management; Family Medicine - MD Appointment Related [address] [id number] [phone] (Wo rk) Social History Tobacco Use Types [...] Telephone Encounter - Lesly Maki RN - 02/21/2019 1555 EST Spoke with Pharmacist; She is aware that no psych medications come from our office, need to come from the [facility]. They will make a note in Pt's pharmacy chart. LESLY MAKI RN 02/21/2019 15:56 elephone Encounter - Jim Morales MD - 02/21/2019 1549 EST She should only get medication refills from [facility]. She has an appointment with the psychatrist on 03/09/19 elephone Encounter - Nadine Bentley - 02/21/2019 1252 EST Antonieta/Benjy is calling stating that this patient is at the pharmacy expecting to be able to pickup a prescription for Ziprasidone. She was seen by you today. documented in this encounter Plan of Treatment Not on filedocumented as of this encounter Goals Goal Patient Goal Associated Recent Patient-Stated? 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
--- OUTSIDE RECORDS SUMMARY | 2021-08-16 23:30 | XMS_ITS | Encounter Summary ---
:[address] [facility] Address [address] [place] [address] Care Team Providers Name Role Phone Sana Muhammad MD Primary Care Provider Encounter Details Date Type Department Care Team Description 12/09/2018 Travel Social History Tobacco Use Types Packs/Day [...] more about your health please v isit: https://www.[facility].org/medcenter/Pages/Wellness-Resources/Ppilhtaho-Zzqvyv-Cm documented as of this encounter Visit Diagnoses Not on filedocumented in this encounter Care Teams Master Baker Relationship Specialty Start Date End Date Sana Muhammad MD PCP - General 12/02/16 08/05/20 documented as of this encounter
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
--- OUTSIDE RECORDS SUMMARY | 2021-08-16 23:30 | XMS_ITS | Encounter Summary ---
:1990 Author Organization [facility] Address [address] [place] [address] Care Team Providers Name Role Phone Sana Muhammad MD Primary Care Provider Reason for Visit Reason Comments Psychiatric Evaluation Pt arrives to the Ed for a p sychiatric evaluation. Pt reports i need my uterus taken out. Bizarre affect in triage. Reports a hx of severe schiz ophrenia. Pt reports she has been taking her medications but t hey do not help. Pt denies SI/HI. Pt denies ETOH use but endor ses marijuana use. Encounter Details Date Type Department Care Team Description 01/11/2019 Emergency [facility] [place] Lior Beyer MD [address] [place] [phone] Fibromyalgia (Primary Dx); Emergency Department - Emergency, MD Chelsy Mood disorder ([facility]) Main [place] [address] [place] [phone] Social History Tobacco Use Types Packs/Day Years Used Date Current Every Day Smoker 1 10 Smokeless Tobacco: Never Used Alcohol Use Standard Drinks/Week Comments Yes 3 (1 standard drink = 0.6 oz pure alcoho l) occ Sex Assigned at Date Recorded Not on file documented as of this encounter Last Filed Vital Signs Vital Sign Reading Time Taken Comments Blood Pressure 141/76 01/11/2019 2145 EST Pulse 108 01/11/2019 2145 EST Temperature 36.7 ??C (98.1 ??F) 01/11/2019 1722 EST Respiratory Rate 18 01/11/2019 2145 EST Oxygen Saturation 99% 01/11/2019 2145 EST Inhaled Oxygen Concentration - - Weight 90.7 kg (200 lb) 01/11/2019 1722 EST Height 165.1 cm (5' 5) 01/11/2019 1722 EST Body Mass Index 33.28 01/11/2019 1722 EST documented in this encounter Functional Status [...] documented as of this encounter Discharge Instructions InstructionsNed Beyer MD, - 01/11/2019 Please follow up with your primary care physician in the next 2-3 days. Please treat your symptoms with fluids, rest and over the counter medications. Please return for worsening symptoms, pain, fevers, chills, vomiting, diarrhea, chest pain, shortness of breath, abdominal pain, headaches or difficulty urinating or stooling. AttachmentsThe following attachments cannot be sent through Care Everywhere.Mood Disorders: General Info (Cuban)Fibromyalgia (Cuban)documented in this encounter Medications at Time of [...] 1 Tab by mouth 1 Tab 0 11/0 06/201804/03/2019 ONE-STEP) 1.5 mg once for 1 [...] Departure Means Destination Home or Self Care documented in this encounter ED Notes Breanan Martinez RN - 01/11/2019 204 EST Pt in suazo in front of room asking to have MRI done to see if anything is in her uterus. Pt crying stating she has demons inside of her and wants to have her uterus removed and then to leave ED. Pt aware that the next step is her meeting with psychiatry. At this time pt is cooperative and remaining inroom. Given cup of gingerale. 1:1 maintained for safety. Will continue to monitor. Breanna Marcum RN - 01/11/2019 1915 EST Report received and pt care assumed. Pt in room tearful, presents with labile affect. Pt asking for staff to remove her uterus and requesting MRI. Pt states I can immaculate you. Maramec are putting babies and thoughts in my soul. I can see and feel things come out of my body and its scary. Energy is coming out of my crotch. Pt denies any current needs. 1:1 maintained for safety. Will continue to monitor. Vania Hardy RN - 01/11/2019 1853 EST Patient became more agitated yelling and pointing at an MHT for clicking their pen. Patient continues to ruminate and yell about being immaculate. Crying intermittently. Verbally redirected and Crisis happened to show up during this episode. She then was willing to meet with [facility]. Vania Hardy RN - 01/11/2019 1815 EST Patient appears anxious standing in the doorway to her room. She says, I need my uterus out. I feellike you guys aren't taking me seriously. Patient says she can feel the immaculate in her uterus.Ruminative about her somatic complaints, this newswriter updated Dr. Beyer about this. Patient does not need to change per Dr. Beyer as she is not expressing si/hi. This newswriter did attempt, however, she was agitated and adamantly refused to change. Ned Beyer MD, MD - 01/11/2019 3994 EST This patient received an evaluation and medical screening exam for emergent medical conditions at the [facility] on 01/11/2019 Chief Complaint Psych Evaluation HPI Yasmany Harris is a 28 y.o. female with PMH including schizotypal personality disorder, schizophrenia, depression, anxiety, obesity, chronic pain syndrome, fibromyalgia, tobacco dependence syndrome and asthma who presents to the ED with altered mental status. Patient arrives delusional and is reportedly requesting for the removal of her uterus. My uterus is immaculate and I would like it removed.When asked if she is , states, I get with your energy. Also reports hallucinations, explaining that she is seeing spaceships and horned things from her third eye. Has been taking her medications, however, states they have not been working. She endorses drinking ETOH today, however, denies marijuana use. Of note, patient has a recurrent history of similar presentations. She has been seen here several times over the past two months. Patient denies fevers, chills, neck pain, dysuria, hematuria, or photophobia. Note: Hx and ROS limited due to altered mental status of patient. History was provided by: patient, medical records Patient's pertinent PMH, FH, SH were reviewed and updated PRN. ROS ROS limited due to altered mental status of patient. Physical Exam Vital Signs Vitals Reassessment?: Yes Temp: 36.7 ??C (98.1 ??F) Temp src: Temporal Pulse: (!) 127 Resp: 18 SpO2: 98 % BP: 139/77 BP Device: BP Machine Patient Position: Sitting BP Cuff Location: Left arm Physical Exam Laboratory Results Labs Reviewed POCT TEST, CLINITEK Result Value Status UPT Result Neg Final Tech ID [id number] Final Data Interpretation Laboratory results independently reviewed, significant for: negative UPT Procedures Procedures A medical screening exam was performed. Assessment and Plan 28 y.o. female with PMH including schizotypal personality disorder, schizophrenia, depression, anxiety, obesity, chronic pain syndrome, fibromyalgia, tobacco dependence syndrome and asthma who presentsto the ED with altered mental status. Patient arrives delusional and is reportedly requesting for the removal of her uterus. My uterus is immaculate and I would like it removed. When asked if she is , states, I get with your energy. Also reports hallucinations, explaining that sheis seeing spaceships and horned things from her third eye. Has been taking her medications, however , states they have not been working. She endorses drinking ETOH today, however, denies marijuana use. Of note, patient has a recurrent history of similar presentations. She has been seen here several times over the past two months. Differential diagnosis includes but is not limited to acute psychosis versus schiozophrenic episode versus acute alcohol intoxication or polysubstance abuse. Patient seems to be at baseline per staff, but is obviously either under the influence or having an acute psychotic episode. Obtained Crisis consultation with likely plan for admission. Patient remained here with 1:1 for safety and observation. Following evaluation, Crisis felt that patient was appropriate for discharge with plan to follow up with psychiatry in outpatient clinic. There was limited concern that patient was given she is on nexplanon; however, they recommended test upon her insistence. UPT was obtained which was negative. Patient was discharged to home. Prior to discharge usual and customary precautions werereviewed with the patient and/or family including follow-up instructions and reasons to return to the Emergency Department if condition worsens, does not improve as expected, or other new concerns arise. Clinical Impression Final diagnoses: Fibromyalgia Mood disorder ([facility]) Disposition Discharged The patient's pain was managed to an adequate level weighing risk vs. benefit of further medications.At the end of my care of this patient, the patient's pain was 0 on a zero to ten scale. Any further pain treatment will be at the discretion of the provider following up with the patient based on their clinical assessment. Condition at the end of my care of this patient: Good Scribe attestation: This documentation is recorded by Eulogio Villela acting as Scribe under the direction and presence of Ned Beyer MD. Ned Beyer MD: I personally performed the services recorded by the scribe in my presence. I confirm the scribe's documentation has been reviewed by me to accurately and completely record my work, treatment, procedures, and medical decision making. Jose Raul Asif - 01/11/2019 1713 EST TCALL: YASMANY HARRIS. [birth year]. PT REFERRED BY [facility] FOR PSYCHOTIC BREAK WITH HALLUCINATIONS. PT BELIEVES THINGS ARE CRAWLING IN AND OUT OF HER UTERUS AND WANTS HER UTERUS REMOVED. PT IS VERY AGITATED. (ADILIA) documented in this encounter Miscellaneous Notes ED Consult - Chano Contreras - 01/11/2019 1845 EST Divider Operator Initial Assessment Note Admit Date: 01/11/2019 Date of Consult: 01/11/2019 Presenting Information: Yasmany is a 28 year old female who presents to the ED at the urging of herdoctor???s office after she called asking for her uterus to be removed. 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 She has presented to the ED recently for malingering as she does like her living situation and living independently in stressful for her. In reviewing the records, she also does not have custody of her son. The patient's usual presentation consists of various delusions. However, she is able to have a linear conversation based in reality when redirected. Upon interview, the patient is seen agitated and yelling at staff, standing in her doorway. She agreed to speak in her room. She immediately begins to tell me, ???I need my uterus removed. I???m immaculate. You???re sending energy in my vagina.?? She ruminates on this and repeats this often. When I asked pointed questions, she does answer them in a linear way. Her psychosis is peculiar because she appears to have delusions, but is able to speak in a clear, linear way when directed. She tells me sheis living with her boyfriend and feels supported at home. She drank alcohol tonight but denies othersubstances. She denies depression, suicidal ideation, or homicidal ideation. She tells me this is not a psychiatric problem, but contradicts herself saying, ???I???m a crazy person. Can you see that??? which is inconsistent with true psychosis. I do have strong suspicions for malingering given her history and presentation, but she does appear very distressed by her expereicine. She does have a psychiatry appointment tomorrow at the [facility]. Of note, I asked the patient if she would like to see the psychiatrist, to which she states, ???As long as it???s not the red head.?? She is referring the attending psychiatrist she has seen in the past who has discharged her. She also asked for food right when she arrived. I offered a testwhich she declined. I offered a drug test which she declined. As the interview continued, she began more and more agitated because You can't relate to this because you have a penis. I again urged herto continued to take her medications and see her psychiatrist tomorrow at her appointment. Substance Use (if applicable): Patient smokes cannabis and drinks alcohol. She drank alcohol tonight. Relevant Psychosocial Information: Patient tells me she is living with her boyfriend. She is unemployed. Mental Status Appearance: Disheveled Attitude: Other hostile at times Behavior: Psychomotor Agitation Mood: Irritable and Angry Sleep Pattern: No Disturbance Noted Appetite: No Disturbance Noted Affect: Mood Congruent Thought Process: Other perseverative Perception: Delusions Cognitions: Alert and Oriented Insight: Fair Judgement: Fair Concentration: Poor Orientation: Oriented times three Risk Assessment Suicidality: denies Homicidality: denies Clinical Interpretation: The patient presents tonight with a familiar presentation including delusional thought content around her uterus. She denies suicidal and homicidal ideation. There are no safety concerns noted. She tells me she does not want to be admitted to the psychiatry unit and does not meet EE criteria. Outpatient treatment is appropriate for the patient Plan: The plan for this patient is: Discharge from ED to Follow Up Provider She has a psychiatry appointment tomorrow. I followed up with her providers. Consultation with: MD Chano Hurtado, [facility] Divider Operator [facility] documented in this encounter Plan of Treatment Not on filedocumented as of this encounter Goals Goal Patient Goal Associated Recent Patient-Stated? 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[place], dependence Vania syndrome Healthy General On track [...] more about your health please v isit: [email or web address] documented as of this encounter Procedures Procedure Name Priority Date/Time Associated Diagnosis Comme nts POCT STAT 01/11/2019 21:32 Results f or this TEST, CLINITEK EST procedure are in the results section. documented in this encounter Results POCT TEST, CLINITEK (01/11/2019 21:32 EST) Pathologist Sig nature UPT Result Neg Neg [facility] manager file ID [id number]: [facility] Test performed at LABORATORY SERVICES Emergency Department Specimen Urine (substance) - Urine Performing Organization Address City/State/ZIP Code Phon e Number [facility] [address] [place] [address] SERVICES documented in this encounter Visit Diagnoses Diagnosis Fibromyalgia - Primary Mylagia and myositis, unspecified Mood disorder (HCC-CMS) (HCC) Unspecified episodic mood disorder documented in this encounter Care Teams Executive Cyber Leader Relationship Specialty Start Date End Date Sana Muhammad MD PCP - General 12/02/16 08/05/20 documented as of this encounter
--- OUTSIDE RECORDS SUMMARY | 2021-08-16 23:30 | XMS_ITS | Encounter Summary ---
:1990 Author Organization [facility] Address [address] [place] [address] Care Team Providers Name Role Phone Sana Muhammad MD Primary Care Provider Reason for Visit Reason Comments Suicidal pt arrives with [facility]. was discharged from ED earlier this morning. presents stating i 'm possessed. i need to be euthanized. i think you should drain my bl ood like dracula. speech is tangential. when questioned about a spec ific plan pt states she is too scared to take her own life and would like the ED staff to. vss. pt reports 1 glass of wine today and CBD. Hallucinations Encounter Details Date Type Department Care Team Description 12/07/2018 - Emergency [facility] Giovanni Galicia PA-C [address] [place] [address], [address] [address] Psychosis, 12/08/2018 Emergency Department Elsa Steen PA-C [address] [facility], [facility] [address] [place] [address] unspecified psychosis - [facility] Emergency, MD Chelsy type ([facility]) [address] [facility] (Primary Dx) [place] [address] Social History Tobacco Use Types Packs/Day Years Used Date Current Every Day Smoker 1 10 Smokeless Tobacco: Never Used Alcohol Use Standard Drinks/Week Comments Yes 3 (1 standard drink = 0.6 oz pure alcoho l) occ Sex Assigned at Date Recorded Not on file documented as of this encounter Last Filed Vital Signs Vital Sign Reading Time Taken Comments Blood Pressure 133/89 12/08/2018341 EDT Pulse 111 12/07/2018 2311 EDT Temperature 37.4 ??C (99.3 ??F) 12/08/2018341 EDT Respiratory Rate 16 12/08/2018341 EDT Oxygen Saturation 100% 12/08/2018 034 EDT Inhaled Oxygen Concentration - - Weight [...] licated-F12.90[ICD-10-CM] documented in this encounter Discharge Instructions Elsa Woody PA - 12/08/2018 Follow up per First Call Call First Call as needed [phone] Return for worsening symptoms AttachmentsThe following attachments cannot be sent through Care Everywhere. Psychosis (Ecuadorean)documented in this encounter Medications at Time of [...] Departure Means Destination Home or Self Care Taxi documented in this encounter Consult Notes Billy Eastman MD - 12/08/2018 0316 EDT Psychiatry Consultation Follow Up Note Date of Service: 12/08/2018 Admit Date: 12/07/2018 SUBJECTIVE/INTERVAL HISTORY: Patient is assessed in the ED after presenting earlier in the day for possible psychosis. Initially she is seen by physician practice manager Gui Burns, who notes many recent presentations to the ED and some admissions to higher levels of care. At 8:26pm on 12/07 she called an ambulance and came to the ED.When talking with Crisis, she brings up a variety of odd topics while denying safety concerns. On interview with this writer technical publications, the patient says that she would like to leave. She says that every time she comes to the hospital it gets worse. She clarifies by saying her symptoms get worse, but cannot clarify further what this means. She says she wants a morning after pill, that she recently puked up blood and snake venom, and that regardless of if she is given proper medical care for this, shewants to leave. She denies any SI or HI. She denies any safety concerns. She denies AVH. She denies any recent substance use beyond her regular cannabis and alcohol use. She has a [facility]ANNING MANAGER intake appointment in the morning and a PCP appointment later in the day. OBJECTIVE: VS current: Vitals: 12/07/18 2044 12/07/18 2311 BP: 126/87 112/82 BP Cuff Location: Right arm Right arm Patient Position: Standing Semi fowlers Pulse: (!) 110 (!) 111 Resp: 20 20 Temp: 37 ??C (98.6 ??F) 36.9 ??C (98.4 ??F) TempSrc: Temporal SpO2: 98% 100% Mental Status Exam: A young adult woman with purple hair appearing disheveled. Cooperative, fair eye contact. Displays no psychomotor agitation or slowing. Speech is spontaneous, normal rate and volume. Alert and orientedx3. Mood is Fine. Affect is congruent, euthymic. Thought process is linear, tight associations. Thought content includes bizarre ideation. Denies SI, denies HI. Perceptually devoid of AH/VH. Impulsivity is low-moderate. Insight is fair. Judgment is fair. ASSESSMENT: Mary Grace Harris is a 28 year old woman with a history of unspecified psychosis presenting for the third time in two days. Patient presents with some odd ideation but does not appear overtly psychotic beyond this, and this ideation may be more reflective of cluster A personality type. Regardless, she is consistently denying SI or HI. Does not meet EE criteria and is ok to discharge home with a reminder of her follow-up appointments later today. Primary Diagnosies: Unspecified psychosis RECOMMENDATIONS: - psychiatrically clear for discharge Please call with any questions. PCS is available 8am - 5pm at pager [phone], and on-call resident is available weekdays 5pm - 8am and weekends at pager [phone]. Thank you for allowing us to participate in the care of your patient. We will continue to follow with you. Dane Victor MD 12/08/2018 3:17 Psychiatry Service PGY-3 [facility] Attending Attestation: I saw and examined the patient on 12/08/2018. I agree with the Resident note with changes made in italics. Treatment plan reviewed with the patient and team. Billy Eastman MD Psychiatry Attending documented in this encounter ED Notes Olivia Ordonez RN - 12/08/2018 0349 EDT Discharge instructions explained to patient. Pt verbalized understanding of discharge instructions. Vital signs stable. Pt ambulated out of ED with steady gait, where she will wait for an independentlypaid ride home from [employer]. arow Elsa Zhou PA - 12/08/2018 0331 EDT I, Abel Ragland, am scribing for Elsa Steen PA while he/she is personally performing the service. Abel Ragland 12/08/2018 3:31 Mary Grace Harris is a 28 y.o. female who presents to the ED for a Psychiatric evaluation after police found her driving erratically in the setting of multiple visits here for psychosis. Prior to sign out Crisis and Psychiatry were consulted. I assumed care of patient from APRIL Galicia with Psychiatry evaluation pending. After I assumed care the patient was evaluated by Psychiatry. Spoke with Psychiatry who recommends plan for discharge. Patient discharged to home. Prior to discharge usual and customary precautions were reviewed with the patient and/or family including follow-up instructions and reasons to return to the Emergency Department if condition worsens, does not improve as expected, or other new concerns arise. This documentation is recorded by Abel Ragland acting as Scribe under the direction and presence of Elsa Steen PA. Elsa Steen PA: I personally performed the services recorded by the scribe in my presence. I confirm the scribe's documentation has been reviewed by me to accurately and completely record my work, treatment, procedures, and medical decision making. Dr. Morrell was available for supervision. Olivia Fontaine RN - 12/08/2018 0248 EDT Patient requesting to leave. Pt states, that other lady (Crisis) told me I could go so I want to go. Olivia Fontaine RN - 12/08/2018 0224 EDT Pt seems to be forcibly vomiting. Very scant amount of blood noted in vomit. Patient states, I havea snake inside me and I want the morning after pill. It's not a baby. It's an animal. You're not giving me what I've been asking for. For 9 years, these Earthlings haven't been giving me what I've beenasking for. Olivia Fontaine RN - 12/08/2018 0207 EDT This RN called into room. Pt throwing up milky vomit. Pt had vanilla ice cream prior. Pt states, This is why I'm asking you to euthanize me! I feel like I'm 150 years old. Olivia Fontaine RN - 12/08/2018 0007 EDT This RN called to room. Pt standing outside of room speaking to sitter. Pt states, I need to talk to a doctor right now about setting up my euthanization. Pt directed back to room. Offered food/drinkto patient while she waits to see Crisis. First Call arrived to consult patient. Olivia Fontaine RN - 12/07/2018 2330 EDT I am Shaquille and you guys are eating me. I have no bones and I have no blood. Pt asked if she's in pain. Pt yelled, Yes! I have no bones! Pt declining food/drink. Frida Zhou, APRIL Fernandez - 12/07/20187 EDT DOS: 12/07/2018 Chief Complaint Patient presents with ??? Suicidal pt arrives with [facility]. was discharged from ED earlier this morning. presents stating i'm possessed. i need to be euthanized. i think you should drain my blood like dracula. speech is tangential. when questioned about a specific plan pt states she is too scared to take her own life and would like the ED staff to. vss. pt reports 1 glass of wine today and CBD. ??? Hallucinations HPI The patient is a 28 y.o. female who presents today with Suicidal (pt arrives with [facility]. was discharged from ED earlier this morning. presents stating i'm possessed. i need to be euthanized. i think you should drain my blood like dracula. speech is tangential. when questioned about a specific plan pt states she is too scared to take her own life and would like the ED staff to. vss. pt reports 1 glass of wine today and CBD. ) and Hallucinations 28-year-old female returns today by EMS for a psychiatric evaluation. Patient was seen earlier in the day by Dr. Wang, there were notes that states that the patient may be malingering she does have ahistory of psychosis was recently admitted transferred to assist and then outpatient care. Today shewas driving her car possibly erratic when she was pulled over and taken into this hospital by ambulance. Patient is lying with her eyes closed giving very little information but states that she is being powered by the devil she states that she has not slept in the last 3 months. She stated I need to be euthanized please euthanize my body I been for 9 years. She states my [place] full [place] and I need to be euthanized. Patient occasionally will give me clear answers intermixed with on various statements. Notes from earlier in the day stated that the patient was giving bizarre statements and then when it was time to leave she was completely clear and appropriate. Review of Systems Review of Systems Constitutional: Negative. Negative for chills and fever. HENT: Negative. Negative for congestion, sore throat and trouble swallowing. Eyes: Negative. Negative for visual disturbance. Respiratory: Negative. Negative for chest tightness and shortness of breath. Cardiovascular: Negative. Negative for chest pain, palpitations and leg swelling. Gastrointestinal: Negative. Negative for abdominal distention and abdominal pain. Endocrine: Negative. Genitourinary: Negative. Negative for dysuria and frequency. Musculoskeletal: Negative. Negative for arthralgias. Skin: Negative. Negative for rash. Allergic/Immunologic: Negative. Negative for immunocompromised state. Neurological: Negative. Negative for dizziness and headaches. Hematological: Negative. Negative for adenopathy. Does not bruise/bleed easily. Psychiatric/Behavioral: Positive for behavioral problems, hallucinations and sleep disturbance. Negative for confusion, self-injury and suicidal ideas. The patient is not nervous/anxious. All other systems reviewed and are negative. The patient's past medical, family and social history was reviewed and updated as needed. Allergies Allergen Reactions ??? Gluten Protein ??? Haldol [Haloperidol Lactate] paralysis ??? Paxil [Paroxetine Hcl] Nausea And Vomiting Vital Signs Vitals Reassessment?: Yes Temp: 37 ??C (98.6 ??F) Pulse: (!) 110 Resp: 20 SpO2: 98 % BP: 126/87 BP Device: BP Machine Patient Position: Standing BP Cuff Location: Right arm O2 Device: None (Room air) Physical Exam Constitutional: She appears well-developed and well-nourished. Patient laying down refuses to open her eyes during exam otherwise appears in no acute distress HENT: Head: Normocephalic and atraumatic. Right Ear: External ear normal. Left Ear: External ear normal. Nose: Nose normal. Eyes: Pupils are equal, round, and reactive to light. Right eye exhibits no discharge. Left eye exhibits no discharge. Neck: Normal range of motion. Neck supple. No tracheal deviation present. Cardiovascular: Normal rate, regular rhythm and normal heart sounds. Pulmonary/Chest: Breath sounds normal. No respiratory distress. Abdominal: Soft. There is no tenderness. Musculoskeletal: Normal range of motion. Neurological: She is alert. She has normal strength. No sensory deficit. Skin: No rash noted. Psychiatric: Her affect is labile. Her speech is delayed. She is slowed and withdrawn. Thought content is paranoid and delusional. Cognition and memory are normal. She expresses impulsivity. She expresses no suicidal ideation. She expresses no suicidal plans. Nursing note and vitals reviewed. RESULTS EKG orders: None Radiology orders: None Procedures ED COURSE A medical screening exam was performed. Awaiting crisis evaluation patient recently seen with diagnosis of malingering Final diagnoses: None DISPOSITION: No disposition on [...] Condition at departure from the Emergency Department: PCP: Sana Frias was available for supervision. 12/07/2018 21:27 No flowsheet data found. Olivia Fontaine RN - 12/07/20182053 EDT When this writer technical publications went into room, pt requested lights to remain off. Pt stated, I need to be euthanized. It's not a joke. Cats have 9 lives. When asked if pt has an intent to harm self, pt responded, I've already been for 9 years. Patient was cooperative with changing into paper scrubs. Patient belongings placed into 2 bags, labeled, and secured in closet. Pt declining warm blanket. Tino Pedraza - 12/07/20182051 EDT RN changing pt into scrubs. Pt calm. One bag of belongings sent to closet. Vania Paige RN - 12/07/20182044 EDT 1:1 sitter initiated on patient arrival. documented in this encounter Miscellaneous Notes ED Consult - Gui Burns - 12/08/2018 0030 EDT Customer Success Manager Initial Assessment Note Admit Date: 12/07/2018 Date of Consult: 12/08/2018 Psychotic Presenting Information: Ct is a 28yo female well known to and [facility]. Ct is assessed at [facility] ED due to presenting with symptoms of psychosis. 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 For context, ct presented in the ED 10/23 and was discharged, presented again 11/06 and went to [facility] voluntarity. Ct discharged AMA (did not meet EE criteria) from [facility] 6 11/14, then was assessed again and went back to [facility] 6 11/15 where she stayed until 11/30. On 12/02, ct discharged from [facility] 6 and went to [facility]. Ct presented at the ED on 12/02, and was discharged back to [facility] where she stayed until 12/04. Ct represented to the ED on 12/06, and was discharged, came back today 12/07 at 9:46am, discharged at 1:45pm, then represented ad 8:26pm tonight after calling an ambulance, resulting in this assessment. She was assessed numerous times by psychiatry and [facility] during all of these interactions. CC met with francy who was lying down on her hospital bed wearing paper scrubs. Ct has medium length hair dyed purple, and is overweight. Ct presented with flights of ideas, changing topic abruptly and often switching the conversation back to euthanasia and medical problems. Ct reports that her bones, body, and blood hurt, her veins are shriveled up and cannot be seen. She is requesting that we help her set up euthanasia, not for right now, but so that it is available when the time comes. When asked when, ct replies soon, I'm dying and no one is helping me, when I can't move my legs, soon. Ct denies SI/SH/HI and is asking for people to help her. Ct switched back from flat affect to crying, to serious, and back to crying multiple times during assessment. Ct quick changing affect and presentation hasbeen noted by other providers and psychiatry in the past. Ct complained that she was previously on hydromorphone and had stopped this past winter which was her decision, and would like to be back on itbecause it helped with her pain. CC explained that I am not a medical provider, and not a prescriber, therefore unable to provide her answers regarding her medical complaints and medication requests. Ct answered by saying then why are you here, why am I talking to you?. Ct has a long history of presenting with medical complains and delusions. Ct did say her fiance ended their relationship a couple of days ago. CC attempted to ask ct other questions about her life, medication, living situation, butct was guarded and replied she was not interested in discussing this and was done with small talk, and wanted to focus back on her medical issues and not being helped. CC reminded ct that she has [facility]NA[facility] intake appointment tomorrow at 9am with [facility] (Mandy Li), and has doctor's appointment with Dr Hui in [place] at 2:45pm. CC emphasized having ct attend these appointment as theyare a step towards getting more support and services that she is requesting. Ct agreed and felt it would be appropriate and that she could be safe. CC attempted to ask about her interactions with psychiatry and [facility] the last few weeks, especially today and trying to understand the timelines but ct avoided answering. Ct still feel like she has needs that are not being met regarding her medical symptoms and not being believed. Substance Use (if applicable): Past assessment and electronic medical records have identified Cannabis use, Alcohol use, and Nicotine dependence disorder. Her current use is unknown as ct was unwillingto discuss other topics besides her medical concerns, but she reported to on 12/06 that she uses CBD and alcohol regularly. Relevant Psychosocial Information: Past electronic documents report that ct has a place to live but she was unwilling to discuss this. It has been noted that ct has a son under the age of 5 in DCF custody and ct's family is working to possibly become legal guardian. Ct's medication compliance is unknown as ct was unwilling to discuss this topic as well. Ct is currently connected to [facility] Intake at [place] with [facility] MANAGER intake appointment 12/08. Ct has history of past hospitalization, including [facility] and [facility] recently. Mental Status Appearance: Disheveled Attitude: Guarded Behavior: Other Reported inability to move her body and requiring assistance. Normal Rate / Rhythm / Tone Mood: Sad and Anxious Sleep Pattern: Difficulty Falling Asleep and Difficulty Staying Asleep Appetite: No Disturbance Noted Affect: Mood Incongruent and Other and labile Thought Process: Flight of Ideas and Other perseveration on medical symptoms Perception: Delusions Cognitions: Alert and Oriented Insight: Poor Judgement: Poor Concentration: Poor Orientation: Oriented times three Risk Assessment Suicidality: Ct denies SI. Ct is asking for euthanasia for future use due to medical concerns but denies plan to harm herself or to take euthanasia into her own hands. Homicidality: Ct denies HI. Clinical Interpretation: Francy is a 28yo female with numerous presentation at the ED in the last 6 weeks resulting in a number of interactions with psychiatry, [facility] (last one was 12/06), two [facility] admission, and one [facility] stay. Francy has been presenting with psychotic symptoms but her presentation has beennoted to vary greatly, and to believe she is malingering. Today, ct presented with somatic delusionsand complaints that were medical in nature, which included a request for pain medication. Ct denies current SI/SH/ and plans, and agreed that she should attend her [facility]ITY PLANNING MANAGER intake later this morning and appointment with doctor in the afternoon. While ct agreed to this plan, she is still feeling not believed by medical and mental health providers, and appears to have needs that she feels are not being met,which will likely continue to seek services and contact with crisis services. Francy should continued bryce encouraged to call her providers or [facility] rather than presenting at the ED. Psychiatry met with ctand agreed to discharge ct home and that she will go to her appointments later this morning. Plan: The plan for this patient is: Discharge from ED to Follow Up Provider Consultation with: Dr Patricio Victor, [facility] psychiatry Gui Burns Customer Success Manager First [facility] for [facility] documented in this encounter Plan of Treatment Not on filedocumented as of this encounter Goals Goal Patient Goal Associated Recent Patient-Stated? 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[place], dependence Vania syndrome Healthy General On track [...] about your health please v isit: [email or web address] documented as of this encounter Visit Diagnoses Diagnosis Psychosis, unspecified psychosis type (H CC-CMS) (HCC) - Primary documented in this encounter Care Teams Mechanical Design Engineer Products Relationship Specialty Start Date End Date Sana Muhammad MD PCP - General 12/02/16 08/05/20 documented as of this encounter
--- OUTSIDE RECORDS SUMMARY | 2021-08-16 23:30 | XMS_ITS | Encounter Summary ---
:1990 Author Organization [facility] Address [address] [place] [address] Care Team Providers Name Role Phone Sana Muhammad MD Primary Care Provider Reason for Visit Reason Comments Other Pt here because she has not had her menstrual cycle in about 6 weeks. Did a home urine preg mike test that was negatve, would like blood work to confirm. Having morning sickness. Medications Refill Needs a refill of respiradon e. Encounter Details Date Type Department Care Team Description 02/21/2019 [facility] Visit [facility] Jim Morales (Primary Dx); Family Medicine - MD Dave Anxiety; [place] [address] [facility] Episode of recurrent major depressive di sorder, unspecified depression episode severity ([facility]); [address] [place], [place] [facility]otypal disorder [facility] [place], [place] [id number] Psychosocial distress; [phone] Acute cystitis without hematuria; (Work) Drug-induced constipation Social History Tobacco Use Types Packs/Day Years Used Date Current Every Day Smoker 1 10 Smokeless Tobacco: Never Used Tobacco Cessation: Ready to Quit: Yes; C ounseling Given: Yes Alcohol Use Standard Drinks/Week Comments Yes 3 (1 standard drink = 0.6 oz pure alcoho l) occ Sex Assigned at Date Recorded Not on file documented as of this encounter Last Filed Vital Signs Vital Sign Reading Time Taken Comments Blood Pressure 128/76 02/21/2019 1120 EST Pulse 88 02/21/2019 1120 EST Temperature 37 ??C (98.6 ??F) 02/21/2019 1120 EST Respiratory Rate - - Oxygen Saturation - - Inhaled Oxygen Concentration - - Weight - - Height 165.1 cm (5' 5) 02/21/2019 1120 EST Body Mass Index - - documented [...] as of this encounter Patient Instructions Patient InstructionsJim Morales MD - 02/21/2019 11:15 EST Only psychiatric medication you should take is the mirtazapine 7.5 mg at bedtime and olanzapine 20 mg daily You have a follow up scheduled with Dr. Sandy Jiménez on 03/09/19 at the [facility] We will schedule you to have the Nexplanon removed and replaced in the next week. documented in this encounter Ordered Prescriptions Prescription Sig Dispensed Refills Start Date End Date mirtazapine (REMERON) 7.5 Take 1 Tab by mouth 30 Tab 0 1 04/12/2018 03/17/2019 mg tabletIndications: daily. Episode of recurrent major depressive disorder, unspecified depression episode severity (HCC) documented in this encounter Progress Notes Christina Mckenzie - 02/21/2019 1115 EST Addendum Venipuncture performed for Quant Beta HCG Per orders of Jim Morales MD Diagnosis of Amenorrhea (N91.2) CHRISTINA MCKENZIE 03/03/2019 16:52 Jim Brown MD - 02/21/2019 1115 EST CC: Other (Pt here because she has not had her menstrual cycle in about 6 weeks. Did a home urine test that was negatve, would like blood work to confirm. Having morning sickness.) and Medications Refill (Needs a refill of respiradone. ) Subjective: Mary Grace is a 28 y.o. who presents for concern for . Her Nexplanon was placed trevor 2015, so is more than three years old, so she is nervous about it. She is having intercourse regularly. Last period was early January, so she is two weeks over she reports that her periods are normally quite regular once per month. She reports taking multiple antipsychotic medications most recently for she feels like risperidone was the most helpful. She has a regular visual and auditory hallucinations which are at times ego-dystonic and frightening. She reports several that are related to gross things and genitals. Her mom apparently had schizophrenia and she was raised by her grandparents. Her catalyst unit operator reports that she has seen multiple physicians to get prescriptions for different medications and they feel that she may be doctor shopping so have advised that she only get her medications from them. ROS Problem list, past medical history, medications, allergies, social and family history reviewed and updated in [facility] as appropriate. Objective: Blood pressure 128/76, pulse 88, temperature 37 ??C (98.6 ??F), temperature source Tympanic, height 165.1 cm (65). Physical Exam Constitutional: She appears well-nourished. No distress. HENT: Head: Normocephalic. Mouth/Throat: Mucous membranes are moist. Eyes: Conjunctivae are normal. Pulmonary/Chest: Effort normal. Musculoskeletal: She exhibits no edema. Neurological: She is alert. Skin: Skin is warm and dry. Psychiatric: She has a normal mood and affect. Her behavior is normal. Thought content normal. 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 She looked up the medications in her file and currently she is only prescribed mirtazapine and olanzapine.They recommend a single psychiatric prescriber as she has a tendency to go to multiple providers andget multiple similar prescriptions. The EPIC record shows small numbers of pills for prescriptions of multiple medications including: ?? risperidone ?? sertraline ?? trazodone ?? Ziprasidone ?? Hydroxyzine ?? Fluoxetine ?? lithium ?? duloxetine and ?? Benztropine She was advised not to take any of these medications. Psychosocial distress. Financial and housing. Acute cystitis without hematuria - nitrofurantoin, macrocrystal-monohydrate, (MACROBID) 100 mg capsule. This was prescribed in recently, but it sounds like she may not have taken it. No symptoms at this time. Drug-induced constipation - DOK 100 mg capsule Other orders - UNABLE TO FIND - TAB-A-AMANUEL per tablet - naproxen (EC NAPROSYN) 500 mg EC tablet Contraception - Urgent need to replace Nexplanon Only psychiatric medication you should take is the mirtazapine 7.5 mg at bedtime and olanzapine 20 mg daily You have a follow up scheduled with Dr. Sandy Jiménez on 03/09/19 at the [facility] We will schedule you to have the Nexplanon removed and replaced in the next week. Patient was unable to urinate, so a serum test was ordered. 45 minutes was spent in counseling and coordination of care Jim Morales MD documented in this encounter Plan of [...] more about your health please v isit: https://www.[email or web address].org/medcenter/Pages/Wellness-Resources/Evxeexmzo-Wyxvbo-Gf documented as of this encounter Procedures Procedure Name Priority Date/Time Associated Diagnosis Comme nts QUANT BETA HCG, Routine 02/21/2019 14:48 Amenorrhea Results for this EST procedure are i n the results section. POCT CSN BARCODE Routine 02/21/2019 13:00 Amenorrhea Results for this URINE PREG TEST EST procedure ar e in the results section. POCT Routine 02/21/2019 13:00 Amenorrhea Results f or this TEST, CLINITEK EST procedure are in ORDER the results section. documented in this encounter Results QUANT BETA HCG, (02/21/2019 14:48 EST) Beta HCG Quant, <5 <5 mIU/ml [facility] Comment: LABORATORY NOTE: SERVICES : Negative: Less than 5mIU/mL Indeterminant: Between 5 and 25 mIU/mL, recommend repe at testing in 48 hours Positive: Greater than 25 mIU/mL The results of this assay ca n be falsely lowered due to the consumption of Biotin. Specimen Blood - Venous blood (substance) Performing Organization Address City/State/ZIP Code Phon e Number [facility] [address] [place] [address] SERVICES POCT CSN BARCODE URINE PREG TEST (02/21/2019 13:00 EST) Pathologist Sig nature Hold Hold [facility] SERVICES Specimen Urine Performing Organization Address City/State/ZIP Code Phon e Number [facility] [address] [place] [address] SERVICES documented in this encounter Visit Diagnoses Diagnosis Amenorrhea - Primary Absence of menstruation Anxiety Anxiety state, unspecified Episode of recurrent major depressive di sorder, unspecified depression episode severity (HCC) 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 traZODone (DESYREL) 100 Take 100 mg by mg tablet mouth at bedtime. FLUoxetine (PROZAC) 20 mg Take 20 mg by mouth 02/21/2019 capsule daily. DULoxetine (CYMBALTA) 30 Take 30 mg by mouth 02/21/2019 mg delayed release daily. capsule risperiDONE (RISPERDAL) Take 4 Tabs by Therapy completed 02/12/2019 02/21/2019 0.5 mg tablet mouth daily. lithium (LITHOBID) 300 mg Take 5 Tabs by Therapy completed 12/09/19 19 02/21/2019 CR tabletIndications: mouth daily with Mood regulation in dinner. patient with psychosis hydrOXYzine (ATARAX) 25 Take 25 mg by mouth Therapy completed 02/21/2019 mg tablet every 4 hours as needed for Itching. cariprazine (VRAYLAR) 4.5 Take 1 Cap by mouth Therapy completed 05/201802/21/2019 mg capsuleIndications: daily. schizophrenia benztropine (COGENTIN) 1 Take 1 mg by mouth Therapy completed 02/21/2019 mg tablet 3 times daily. LORazepam (ATIVAN) 1 mg Take 1 Tab by mouth Therapy completed 12/0202/24/2019 tablet at bedtime as needed for Sleep. Daily Max: 1 mg ziprasidone (GEODON) 80 Take 80 mg by mouth Therapy completed 02/0802/21/2019 mg capsule daily. documented as of this encounter Historical Medications This list may reflect changes made after this encounter. Medication Sig Dispensed Refills Start Date End Date nitrofurantoin, Take 100 mg by mouth 2 0 02/14/20 19 macrocrystal-monohydrat times daily. e, (MACROBID) 100 mg capsuleIndications: Acute cystitis without hematuria naproxen (EC NAPROSYN) Take 500 mg by mouth 2 0 1 500 mg EC tablet times daily as needed. TAB-A-AMANUEL per tablet Take 1 Tab by mouth 0 12/21 every morning. DOK 100 mg Take 1 Dose by mouth 0 12/20/2018 capsuleIndications: daily. Drug-induced constipation MEDICAL Inhale 1 Dose as 0 02/08/2019 MARIJUANAIndications: directed daily. Anxiety UNABLE TO FIND Take 2 mg by mouth 0 daily. Med Name: Risperidone 2 mg One tablet daily ziprasidone (GEODON) 80 Take 80 mg by mouth 0 06/201802/21/2019 mg capsule daily. sertraline (ZOLOFT) 100 Take 100 mg by mouth 0 02/21/2019 mg tablet daily. risperiDONE (RISPERDAL) Take 4 Tabs by mouth 0 02/21/2019 0.5 mg tablet daily. added in this encounter Care Teams Stamp Analyst Relationship Specialty Start Date End Date Sana Muhammad MD PCP - General 12/02/16 08/05/20 documented as of this encounter
--- OUTSIDE RECORDS SUMMARY | 2021-08-16 23:30 | XMS_ITS | Encounter Summary ---
:1990 Author Organization [facility] Address [address] [place] [address] Care Team Providers Name Role Phone Sana Muhammad MD Primary Care Provider Reason for Visit Reason Onset Date Comments Results 02/10/2019 Encounter Details Date Type Department Care Team Description 02/10/2019 Telephone [facility] Family Bailey Garrido, TORPEDO WORKER [facility] - [address] [phone] (Wo rk) Social History Tobacco Use Types [...] Sig Dispensed Refills Start Date End Date sulfamethoxazole-trimethop Take 1 Tab by mouth 6 Tab 0 02/10/2019 02/13/2019 rim 2 times daily for 3 (BACTRIM/CO-TRIMOXAZOLE days. DS) 800-160 mg per tablet documented in this encounter Miscellaneous Notes Telephone Encounter - Lesly Maki RN - 02/13/2019 1637 EST Patient has filled script. LESLY MAKI RN 02/13/2019 16:37 elephone Encounter - Marilee Holguin RN - 02/10/2019 1329 EST Left message on [place] voicemail asking for Mary Grace to call us back. elephone Encounter - Bailey Garrido APRN - 02/10/2019 1301 EST Urine culture positive for bacteria in urine Will send three days of bactrim to her pharmacy FYI Phone number listed as Home went to a mailbox at the [facility]- I did not leave message Mobile is out of service documented in this encounter Plan of Treatment Not on filedocumented as of this encounter Goals Goal Patient Goal Associated Recent Patient-Stated? 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
--- OUTSIDE RECORDS SUMMARY | 2021-08-16 23:30 | XMS_ITS | Encounter Summary ---
:1990 Author Organization [facility] Address [address] [place] [address] Care Team Providers Name Role Phone Sana Muhammad MD Primary Care Provider Encounter Details Date Type Department Care Team Description 01/11/2019 Travel Social History Tobacco Use Types Packs/Day [...] more about your health please v isit: https://www.[facility].org/medcenter/Pages/Wellness-Resources/Elysmyvrx-Torhwp-Wc documented as of this encounter Visit Diagnoses Not on filedocumented in this encounter Care Teams Currency Examiner Relationship Specialty Start Date End Date Sana Muhammad MD PCP - General 12/02/16 08/05/20 documented as of this encounter
--- OUTSIDE RECORDS SUMMARY | 2021-08-16 23:30 | XMS_ITS | Encounter Summary ---
:1990 Author Organization [facility] Address [address] [place] [address] Care Team Providers Name Role Phone Sana Muhammad MD Primary Care Provider Reason for Visit Reason Onset Date Comments Medications Refill 02/13/2019 Encounter Details Date Type Department Care Team Description 02/13/2019 Telephone [facility] Lyndsey Carter Medications Refill Psychiatry - S Joellen Shipman MD [address] [place] [id number] [place] [phone] Social History Tobacco Use Types Packs/Day Years [...] this encounter Miscellaneous Notes Telephone Encounter - Ava Carballo - 02/13/2019 1512 EST Patient called requesting refill on her Risperidone 2 mg daily. If any questions please contact patient at grandmother's number. documented in this encounter Plan of Treatment [...] health please v isit: https://www.[facility].org/medcenter/Pages/Wellness-Resources/Eapjlmgco-Rimndj-Zk documented as of this encounter Visit Diagnoses Not on filedocumented in this encounter Care Teams Restaurant Front Manager Relationship Specialty Start Date End Date Sana Muhammad MD PCP - General 12/02/16 08/05/20 documented as of this encounter
--- OUTSIDE RECORDS SUMMARY | 2021-08-16 23:30 | XMS_ITS | Encounter Summary ---
:1990 Author Organization [facility] Address [address] [place] [address] Care Team Providers Name Role Phone Sana Muhammad MD Primary Care Provider Encounter Details Date Type Department Care Team Description 12/29/2018 Travel Social History Tobacco Use Types Packs/Day [...] more about your health please v isit: https://www.[facility].org/medcenter/Pages/Wellness-Resources/Dzofdrjmf-Hueayb-Ut documented as of this encounter Visit Diagnoses Not on filedocumented in this encounter Care Teams Nuclear Engineer Relationship Specialty Start Date End Date Sana Muhammad MD PCP - General 12/02/16 08/05/20 documented as of this encounter
--- OUTSIDE RECORDS SUMMARY | 2021-08-16 23:30 | XMS_ITS | Encounter Summary ---
:1990 Author Organization [facility] Address [address] [place] [address] Care Team Providers Name Role Phone Sana Muhammad MD Primary Care Provider Encounter Details Date Type Department Care Team Description 12/07/2018 Travel Social History Tobacco Use Types Packs/Day [...] more about your health please v isit: https://www.[facility].org/medcenter/Pages/Wellness-Resources/Ykrnlmfzg-Fsixoq-Bh documented as of this encounter Visit Diagnoses Not on filedocumented in this encounter Care Teams Electrical Maintenance Worker Relationship Specialty Start Date End Date Sana Muhammad MD PCP - General 12/02/16 08/05/20 documented as of this encounter
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
--- OUTSIDE RECORDS SUMMARY | 2021-08-16 23:30 | XMS_ITS | Encounter Summary ---
:1990 Author Organization [facility] Address [address] [place] [address] Care Team Providers Name Role Phone Sana Muhammad MD Primary Care Provider Encounter Details Date Type Department Care Team Description 12/02/2018 Travel Social History Tobacco Use Types Packs/Day [...] more about your health please v isit: [email or web address] documented as of this encounter Visit Diagnoses Not on filedocumented in this encounter Care Teams Senior Medical Transcriptionist Relationship Specialty Start Date End Date Sana Muhammad MD PCP - General 12/02/16 08/05/20 documented as of this encounter
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
--- OUTSIDE RECORDS SUMMARY | 2021-08-16 23:30 | XMS_ITS | Encounter Summary ---
:1990 Author Organization [facility] Address [address] [place] [address] Care Team Providers Name Role Phone Sana Muhammad MD Primary Care Provider Encounter Details Date Type Department Care Team Description 12/06/2018 Travel Social History Tobacco Use Types Packs/Day [...] your health please v isit: [email or web address]/medcenter/Pages/Wellness-Resources/Oeqqokbot-Uuduao-Sd documented as of this encounter Visit Diagnoses Not on filedocumented in this encounter Care Teams Front Desk Agent Relationship Specialty Start Date End Date Sana Muhammad MD PCP - General 12/02/16 08/05/20 documented as of this encounter
--- OUTSIDE RECORDS SUMMARY | 2021-08-16 23:30 | XMS_ITS | Encounter Summary ---
:1990 Author Organization [facility] Address [address] [place] [address] Care Team Providers Name Role Phone Sana Muhammad MD Primary Care Provider Reason for Visit Reason Onset Date Comments Results 02/11/2019 Encounter Details Date Type Department Care Team Description 02/11/2019 Telephone [facility] Primary Sana Casillas MD Results Care [facility] - [address] [place] [id number] [place] [address] [place] [address] [phone] Social History Tobacco Use Types Packs/Day Years [...] this encounter Miscellaneous Notes Telephone Encounter - Mary Grace Mckeon RN - 02/13/2019 0901 EST Spoke with Nawaf Puga in [place] pharmacy. Pharmacist advised that patient picked up prescription on 02/10. Will update provider. elephone Encounter - Bailey Garrido APRN - 02/13/2019 0815 EST Yes- sent 3 day course bactrim- has pt started taking? elephone Encounter - Monserrat Orozco RN - 02/12/2019 1529 EST Per culture, patient on abx that is sensitive to E-coli. Will route message to patient's PCP to f/u. elephone Encounter - Aisha Edouard - 02/11/2019 1038 EST Reason for Call: Results Summary/Symptoms: Pt looking for Urine results-states she will call back as she is unable to leave aphone number. Onset and Duration? Appointment Offered? No Aisha Edouard 02/11/2019 10:39 documented in this encounter Plan of Treatment Not on filedocumented as of this encounter Goals Goal Patient Goal Associated Recent Patient-Stated? 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Stuart, dependence Vania syndrome Healthy General On track [...] more about your health please v isit: https://www.[facility].org/medcenter/Pages/Wellness-Resources/Nvsohicmb-Qkhsnf-Ac documented as of this encounter Visit Diagnoses Not on filedocumented in this encounter Care Teams Washery Boss Relationship Specialty Start Date End Date Sana Muhammad MD PCP - General 12/02/16 08/05/20 documented as of this encounter
--- OUTSIDE RECORDS SUMMARY | 2021-08-16 23:30 | XMS_ITS | Encounter Summary ---
:1990 Author Organization [facility] Address [address] [place] [address] Care Team Providers Name Role Phone Sana Muhammad MD Primary Care Provider Reason for Visit Reason Onset Date Comments Emergency Contraception 01/09/2019 Encounter Details Date Type Department Care Team Description 01/09/2019 Telephone [facility] Sana Muhammad, Em ergency Contraception Family Medicine - [address] [id number] [phone] (Wo rk) Social History Tobacco Use Types [...] Sig Dispensed Refills Start Date End Date levonorgestrel (PLAN B Take 1 Tab by 1 Tab 0 01/09/2019 04/03/2019 ONE-STEP) 1.5 mg mouth once for 1 tabletIndications: dose. Encounter for contraceptive management, unspecified type documented in this encounter Miscellaneous Notes Telephone Encounter - Ernestine Polanco RN - 01/09/2019 1511 EST Patient was notified by [facility] staff that the prescription was sent. elephone Encounter - Lissa Lan RN - 01/09/2019 1344 EST Attempted to call patient. Voicemail box not set up, unable to leave voicemail. If patient calls back, please advise that Plan B was sent to [facility]. elephone Encounter - Yamileth Hui MD - 01/09/2019 1325 EST Medication sent to pharmacy! Yamileth Hui MD elephone Encounter - Celien Conn - 01/09/2019 1307 EST Patient calling, asking to come in to take the morning after pill. Patient aware she ususlly does not need an appointment for that. documented in this encounter Plan of Treatment Not on filedocumented as of this encounter Goals Goal Patient Goal Associated Recent Patient-Stated? 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[place], dependence Vania syndrome Healthy General On track [...] v isit: https://www.[facility].org/medcenter/Pages/Wellness-Resources/Rdkvytwal-Ycnfdn-Ac documented as of this encounter Visit Diagnoses Diagnosis Encounter for contraceptive management, unspecified type - Primary documented in this encounter Discontinued Medications Medication Sig Discontinue Reason Start Date End Date levonorgestrel (PLAN B Take 1 Tab by Reorder 12/08/2018/0 06/2018 ONE-STEP) 1.5 mg mouth once for 1 tabletIndications: dose. Encounter for contraceptive management, unspecified type documented as of this encounter Care Teams Grinder Set Up Operator Gear Tool Relationship Specialty Start Date End Date Sana Muhammad MD PCP - General 12/02/16 08/05/20 documented as of this encounter
--- OUTSIDE RECORDS SUMMARY | 2021-08-16 23:30 | XMS_ITS | Encounter Summary ---
:1990 Author Organization [facility] Address [address] [place] [address] Care Team Providers Name Role Phone Sana Muhammad MD Primary Care Provider Reason for Visit Reason Onset Date Comments Patient Information Update 12/08/2018 Encounter Details Date Type Department Care Team Description 12/08/2018 Telephone [facility] Sana Muhammad Pa [facility] Family Medicine - Update [address] [id number] [phone] (Wo rk) Social History Tobacco Use Types [...] this encounter Miscellaneous Notes Telephone Encounter - Lamar Pavon - 12/08/2018 1417 EDT Reason for Call: Patient Information Update Summary/Symptoms: Samantha, [facility], is calling reporting patient has been to the [facility] ED repeatedly, three times in the past 24 hours with some delusional processing seen. Patient is overwhelmed andrecently gave up child to adoption by mother and uncle. Patient is living alone and is not happy with this. Due to another trip to [facility] ED, patient missed [facility] intake appointment. Patient reported to have overdosed on pills and wine; however, labs showed this to not be true. Patient left ED and, upon return, reported she had consume a bottle of wine; however, labs showed alcohol level 0.0. Samantha reports patient as attention seeking, does not qualify for inpatient, and has been referred to [facility] and will support in reconnecting with [facility]. Samantha states it is important for patient to keepappointment in our office with Dr. Muhammad today as this is patient's only provider. Onset and Duration? Appointment Offered? Fay Pavon 12/08/2018 14:18 documented in this encounter Plan of [...] more about your health please v isit: https://www.[email or web address]/medcenter/Pages/Wellness-Resources/Uoxuubjid-Qtjkap-Ua documented as of this encounter Visit Diagnoses Not on filedocumented in this encounter Care Teams Staff Genetic Counselor Relationship Specialty Start Date End Date Sana Muhammad MD PCP - General 12/02/16 08/05/20 documented as of this encounter
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
--- OUTSIDE RECORDS SUMMARY | 2021-08-16 23:30 | XMS_ITS | Encounter Summary ---
:1990 Author Organization [facility] Address [address] [place] [address] Care Team Providers Name Role Phone Sana Muhammad MD Primary Care Provider Reason for Visit Reason Onset Date Comments Coordination Of Care 12/09/2018 Encounter Details Date Type Department Care Team Description 12/09/2018 Telephone [facility] Adele Bill en, Coordination Of Care [facility] RHODA [address] [place] [phone] Social History Tobacco Use Types Packs/Day Years [...] encounter Miscellaneous Notes Telephone Encounter - Suki Bill RN - 12/09/2018 1117 EDT ----- Message from Yamileth Hui MD sent at 12/09/2018 11:00 EDT ----- HI all, I just had a long chat with Dr. Ellison (emergency psychiatry), who saw this pt again in the ER today. She was demanding admission to live on Psychiatry. He explained that she is currently listed for a bed at [facility] (a crisis stabilization center in [place] with 6 beds) and an open bed is expected [facility] next week. When a bed opens, her uncle Napoleon will be called and he will pick her up and bring her there. Upon arrival the ORIENTATION & MOBILITY SPECIALIST team (case management) will descend on her (his words) and figure outwhere she should be placed long-term. In the meantime a program [facility], which he described as an assertive outreach psych service, will be involving her in activities and helping her keep her appointments. Dr. Ellison is offering to take direct pages through [facility] with any questions we have managing her overthe weekend. He is describing her situation as being primarily one requiring social work. Please reach out to me, too, if you have any questions. Yamileth Greylectronically signed by Suki Bill RN at 12/09/2018 11:17 EDTdocumented in this encounter Plan of Treatment Not on filedocumented as of this encounter Goals Goal Patient Goal Associated Recent Patient-Stated? 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[place], dependence Vania syndrome Healthy General On track [...] your health please v isit: https://www.[facility].org/medcenter/Pages/Wellness-Resources/Ftazhyrdc-Essvsu-Zq documented as of this encounter Visit Diagnoses Not on filedocumented in this encounter Care Teams Billing Control Clerk Relationship Specialty Start Date End Date Sana Muhammad MD PCP - General 12/02/16 08/05/20 documented as of this encounter
--- OUTSIDE RECORDS SUMMARY | 2021-08-16 23:30 | XMS_ITS | Encounter Summary ---
:1990 Author Organization [facility] Address [address] [place] [address] Care Team Providers Name Role Phone Sana Muhammad MD Primary Care Provider Reason for Visit Reason Onset Date Comments Medication Management 12/08/2018 Encounter Details Date Type Department Care Team Description 12/08/2018 Telephone [facility] Lissa Lan Medic ation Management Family Medicine [facility] anurag RN [address] [place] [phone] Social History Tobacco Use Types Packs/Day [...] this encounter Miscellaneous Notes Telephone Encounter - Lissa Lan RN - 12/08/2018 1650 EDT Patients brother came into the office with questions regarding patient's medications. He state she tried to fill the vraylar and lithium prescriptions sent in today by Dr Hui. He wastold that her insurance states it was too early to fill, as there was a recent fill for this prescription that the patient's grandmother picked up at our office yesterday. The patient told the ER todaythat she took those pills as an OD attempt, which was determined to not be true, but it is not knownwhere these pills are; patient does not have them. He also states that plan B was supposed to be sent in but was not. I asked him if it was possible to speak to Mary Grace to get permission to speak to him. Patient came into the office and gave me verbal permission to speak with brother Maddy as well as grandmother Bing. Maddy states he paid out of pocket to fill the lithium, but could not afford to pay for the vraylar as it was $600. Advised I would speak with pharmacy regarding the vraylar and Dr Hui regarding the plan B, and call him at [phone] when we have figured it out. Called pharmacy; patients insurance needs to be called (medicaid) to get them to allow the pharmacy to dispense the vraylar. I asked for them to send us the PA paperwork; she advised it does not state it needs a PA due to early fill, but to call [phone] to ask for an override. Sent to Diana to call medicaid tomorrow for override. Sent to Dr Hui to request plan B be sent to [facility]. Please call Maddy once either of these are done so he can last picker. documented in this encounter Plan of Treatment [...] your health please v isit: https://www.[facility].org/medcenter/Pages/Wellness-Resources/Sgzoosvnm-Lfzwon-Ji documented as of this encounter Visit Diagnoses Not on filedocumented in this encounter Care Teams Head Of Training And Development Relationship Specialty Start Date End Date Sana Muhammad MD PCP - General 12/02/16 08/05/20 documented as of this encounter
--- OUTSIDE RECORDS SUMMARY | 2021-08-16 23:30 | XMS_ITS | Encounter Summary ---
:1990 Author Organization [facility] Address [address] [place] [address] Care Team Providers Name Role Phone Sana Muhammad MD Primary Care Provider Reason for Visit Reason Onset Date Comments Appointment Related 02/21/2019 Encounter Details Date Type Department Care Team Description 02/21/2019 Telephone [facility] Sana Muhammad Ap pointment Related Family Medicine - [address] [address] [place], [place] [id number] [phone] Social History Tobacco Use Types Packs/Day Years [...] this encounter Miscellaneous Notes Telephone Encounter - Marycheryl Celine - 02/21/2019 1529 EST Message left with patient's brother, patient hs been scheduled for an appointment at 3:[address] Morales. documented in this encounter Plan of Treatment Not on filedocumented as of this encounter Goals Goal Patient Goal Associated Recent Patient-Stated? 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[place], dependence Vania syndrome Healthy General On track [...] health please v isit: https://www.[facility].org/medcenter/Pages/Wellness-Resources/Wrpkuyxen-Ofodom-Rs documented as of this encounter Visit Diagnoses Not on filedocumented in this encounter Care Teams Product Development Ecologist Relationship Specialty Start Date End Date Sana Muhammad MD PCP - General 12/02/16 08/05/20 documented as of this encounter
--- OUTSIDE RECORDS SUMMARY | 2021-08-16 23:31 | XMS_ITS | Encounter Summary ---
:1990 Author Organization [facility] Address [address] [place] [address] Care Team Providers Name Role Phone Sana Muhammad MD Primary Care Provider Reason for Visit Reason Onset Date Comments No Show 07/01/2018 Encounter Details Date Type Department Care Team Description 07/01/2018 Telephone [facility] Sara Pham i, MD No Show Medicine - [address] [address] [place], [place] [id number] [phone] Social History Tobacco Use Types Packs/Day Years Used Date Current Every Day Smoker 0.5 10 Smokeless Tobacco: Never Used Alcohol Use Standard Drinks/Week Comments No 0 (1 standard drink = 0.6 oz pure alcoho l) occ Sex Assigned at Date Recorded Not on file documented as of this encounter Functional Status Functional Status Response Date of Assessment Because of a physical, mental, or emotional condition, Yes 08/25/2017 does this person have difficulty doing errands alone such as visiting a doctor's office or shopping? Cognitive Status Response Date of Assessment Because of a physical, mental, or emotional condition, Yes 08/25/2017 does this person have serious difficulty concentrating, remembering, or making decisions? documented as of this encounter Miscellaneous Notes Telephone Encounter - Makayla Hadley - 07/01/2018 0915 EDT I attempted to call Mary Grace regarding her missed appointment with Dr. Berg on 06/29/18 but her voicemail is not set up and I was unable to leave a message documented in this encounter Plan of Treatment Not on filedocumented as of this encounter Goals Goal Patient Goal Associated Recent Patient-Stated? 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[place], dependence Vania syndrome documented as of this encounter Visit Diagnoses Not on filedocumented in this encounter Care Teams Prototype Engineer Relationship Specialty Start Date End Date Sana Muhammad MD PCP - General 12/02/16 08/05/20 documented as of this encounter
--- OUTSIDE RECORDS SUMMARY | 2021-08-16 23:31 | XMS_ITS | Encounter Summary ---
:1990 Author Organization [facility] Address [address] [place] [address] Care Team Providers Name Role Phone Sana Muhammad MD Primary Care Provider Reason for Visit Reason Comments Test Encounter Details Date Type Department Care Team Description 07/14/2018 Office Visit [facility] Unknown, Prov MD alexey Possible , not confirmed (Prima ry Dx); Family Medicine - Arabella Odom MD [address] [place] [address] Tobacco dependence syndrome Yamileth Tran MD [address] [place] [phone] [address] [place] [address] Social History Tobacco Use Types Packs/Day Years Used Date Current Every Day Smoker 0.5 10 Smokeless Tobacco: Never Used Tobacco Cessation: Ready to Quit: Yes; C ounseling Given: Yes Alcohol Use Standard Drinks/Week Comments No 0 (1 standard drink = 0.6 oz pure alcoho l) occ Sex Assigned at Date Recorded Not on file documented as of this encounter Last Filed Vital Signs Vital Sign Reading Time Taken Comments Blood Pressure 128/70 07/14/2018 1527 EDT Pulse 82 07/14/2018 1527 EDT Temperature - - Respiratory Rate - - Oxygen Saturation - - Inhaled Oxygen Concentration - - Weight 108.9 kg (240 lb) 07/14/2018 1527 EDT Height 162.6 cm (5' 4.02) 07/14/2018 1527 EDT Body Mass Index 41.18 07/14/2018 1527 EDT documented in this encounter Functional Status [...] making decisions? documented as of this encounter Patient Instructions Patient InstructionsBaDiana riddle - 07/14/2018 15:30 EDT Quitting smoking Stopping smoking is the [...] medication, and work with a trained counselor. Counseling in [facility] offers free smoking cessation counseling services to [facility] including a telephone quit line, in person cessation groups, and Quitnet - an online quit service. You may be able to get nicotine replacement medications for low or even no cost through these counseling services depending on your insurance. The [place] Department of Health also has tips and tools for those who want to try to quit on their own. To learn more about these options go to www.vtquitnetwork.org or call 8 953-874-CEUL-TBP ( ). I hope you quit smoking. I think it's the best thing you can do for your health. Please call our office if you have any questions. documented in this encounter Ordered Prescriptions Prescription Sig Dispensed Refills Start Date End Date nicotine polacrilex Take 1 each by 50 each 2 07/14/2018 0 09/19/2018 (NICORETTE) 2 mg mouth every 2 gumIndications: Tobacco hours. dependence syndrome documented in this encounter Progress Notes Arabella Odom MD - 07/14/2018 1530 EDT Attestation statement: I discussed the patient with the resident/fellow at the time of the visit andagree with the findings and plan of care. Arabella Odom MD 07/15/2018 7:25 Yamileth Ocampo MD - 07/14/2018 1530 EDT CC: No chief complaint on file. Subjective: Mary Grace presents for discussion of the following issues: testing: - Several days of lower abdominal discomfort and fluttering sensation - Missed period; unsure of last LMP - Chronic nausea/vomiting; has not changed. Usually happens in the morning - Has not performed home test - Describes not wishing for and also being Prolife Hx Schizotypal personality: - Stopped all medications gradually with time; reports doing this with MD supervision with PCP - Feeling much better off her medications Tobacco use - Hoping to quit - Requesting mint nicotine gum today Review of Systems Gastrointestinal: Positive for nausea and vomiting. Problem list, past medical history, medications, allergies, social and family history reviewed and updated in PRISM as appropriate. Objective: Blood pressure 128/70, pulse 82, height 162.6 cm (64.02), weight (!) 108.9 kg (240 lb). Physical Exam Constitutional: She is oriented to person, place, and time. She appears well- developed and well-nourished. No distress. HENT: Nose: No nasal discharge. Mouth/Throat: Mucous membranes are moist. Pulmonary/Chest: Effort normal. No respiratory distress. Neurological: She is alert and oriented to person, place, and time. Skin: Skin is warm and dry. Psychiatric: She has a normal mood and affect. Her behavior is normal. Judgment and thought content normal. Assessment/Plan: Diagnoses and all orders for this visit: Possible , not confirmed: pt not wishing to be - POCT TEST, VISUAL READ - negative - Will cont to discuss contraceptive options in f/u Tobacco dependence syndrome: pt hoping to cut back on tobacco use - nicotine polacrilex (NICORETTE) 2 mg gum Pt d/w Dr. Lei Hui MD documented in this encounter [...] v isit: https://www.[facility].org/medcenter/Pages/Wellness-Resources/Xitanidkl-Ndjtes-Co documented as of this encounter Procedures Procedure Name Priority Date/Time Associated Diagnosis Comme nts POCT Routine 07/14/2018 15:35 Possible , Re sults for this TEST, VISUAL READ EDT not confirmed procedure are in the results section. documented in this encounter Results POCT TEST, VISUAL READ (07/14/2018 15:35 EDT) Test, Negative . POINT OF CARE Urine, POC [facility] Control Line Yes POINT OF CARE Present [facility] Background Clear? YesComment: POINT OF CARE Addendum 08/03/18 @ [facility] 09:34 hours; Specimen collected by the patient MB/df Specimen Urine (substance) Performing Organization Address City/State/ZIP Code Phon e Number [facility] POINT OF CARE POINT OF CARE [facility] documented in this encounter Visit Diagnoses Diagnosis Possible , not confirmed - Prim pawan examination or test, unconfirmed Tobacco dependence syndrome Tobacco use disorder documented in this encounter Discontinued Medications Medication Sig Discontinue Reason Start Date End Date albuterol 90 Inhale 2 Puffs as 12/02/2016 07/14/2018 mcg/actuation directed every 4 inhalerIndications: hours. inhale 2 puffs before exercise benztropine (COGENTIN) 2 take 2 tablet by 03/21/2018 07/14/2018 mg tabletIndications: mouth twice a day Paranoid schizophrenia ([facility] ([facility]) cyclobenzaprine Take 1 Tab by mouth 03/21/201807/14 (FLEXERIL) 10 mg tablet at bedtime. hydrOXYzine (ATARAX) 25 Take 1 Tab by mouth 03/21/2018 07/14/2018 mg tablet 3 times daily as needed for Anxiety. LORazepam (ATIVAN) 1 mg Take 1 Tab by mouth 03/21/2018 07/14/2018 tabletIndications: 2 times daily. Paranoid schizophrenia Daily Max: 2 mg ([facility]) ([facility]) omeprazole (PRILOSEC) 20 take 1 capsule by 03/21/2018 07/14/2018 mg capsule mouth once daily perphenazine (TRILAFON) 2 Take 1 Tab by mouth 03/21/19 19 07/14/2018 mg tabletIndications: 2 times daily. Paranoid schizophrenia ([facility]) ([facility]) perphenazine (TRILAFON) 4 Take 1 Tab by mouth 03/21/19 19 07/14/2018 mg tabletIndications: as needed (can take Paranoid schizophrenia 1-2 tabs PRN in ([facility] ([facility]) addition to her 2 mg (maximum 10 mg dose)). sertraline (ZOLOFT) 100 take 1.5 tablet by 03/21/2018 07/14/2018 mg tabletIndications: mouth once daily at Paranoid schizophrenia bedtime ([facility]) ([facility]) ziprasidone (GEODON) 60 Take 2 Caps by 03/21/2018 mg capsuleIndications: mouth every Paranoid schizophrenia evening. ([facility]) ([facility]) ziprasidone (GEODON) 80 take 1 capsule by 05/25/2018 07/14/2018 mg capsuleIndications: mouth twice a day Paranoid schizophrenia WITH BREAKFAST AND ([facility] ([facility]) DINNER documented as of this encounter Care Teams Consulting It Architect Relationship Specialty Start Date End Date Sana Muhammad MD PCP - General 12/02/16 08/05/20 documented as of this encounter
--- OUTSIDE RECORDS SUMMARY | 2021-08-16 23:31 | XMS_ITS | Encounter Summary ---
:1990 Author Organization [facility] Address [address] [place] [address] Care Team Providers Name Role Phone Sana Muhammad MD Primary Care Provider Reason for Visit Reason Comments Rash inner thighs. feels like the y may be cellulitis Encounter Details Date Type Department Care Team Description 08/10/2018 Office Visit [facility] Jessica Navarro [facility] Family Medicine - MD Tosin (Primary Dx) [address] [place] [address] [place], [place] [phone] Social History Tobacco Use Types Packs/Day Years Used Date Current Every Day Smoker 0.5 10 Smokeless Tobacco: Never Used Alcohol Use Standard Drinks/Week Comments No 0 (1 standard drink = 0.6 oz pure alcoho l) occ Sex Assigned at Date Recorded Not on file documented as of this encounter Last Filed Vital Signs Vital Sign Reading Time Taken Comments Blood Pressure 124/72 08/10/2018 1015 EDT Pulse 76 08/10/2018 1015 EDT Temperature - - Respiratory Rate - - Oxygen Saturation - - Inhaled Oxygen Concentration - - Weight 113.4 kg (250 lb) 08/10/2018 1015 EDT Height - - Body Mass Index 42.89 07/14/2018 1527 EDT documented in this encounter [...] as of this encounter Patient Instructions Patient InstructionsThelma Caballero LPN - 08/10/2018 10:15 EDT Quitting smoking Stopping smoking is the [...] with a trained counselor. Tobacco Counseling in [facility] offers free counseling services to residents who are ready to cut back or quit using tobacco. Services include: phone coaching (NOW), online tools and support for those who would like to make changes on their own (www.DaoliCloud), as well as in-person group workshops. Free nicotine replacement therapy is available through all of these resources. To learn more about your options visit www.Wyzerr.org or call 8-505-GMGJ-NOW ( ). To speak with an in-person tobacco counselor in [facility] call, [phone]. [place] Resident, please visit: [email or web address] I hope you quit smoking. I think it's the best thing you can do for your health. Please call our office if you have any questions. documented in this encounter Ordered Prescriptions Prescription Sig Dispensed Refills Start Date End Date doxycycline (VIBRA-TABS) Take 1 Tab by mouth 28 Tab 0 09/19/2018 100 mg tabletIndications: 2 times daily. Recurrent boils chlorhexidine (HIBICLENS) Wash affected area 4000 mL 2 09/19/2018 4 % liquidIndications: in shower daily Recurrent boils documented in this encounter Progress Notes Jessica Navarro - 08/10/2018 1015 EDT CC: Rash (inner thighs. feels like they may be cellulitis) Subjective: rash Seems like been there for about 6 years Some fevers/chills/sweats intermittently Started with little dot, and spread some between thighs occ squeezes and pus comes out Has dark areas as well Gets some under pannus occasionally Tries to keep areas clean/dry Worsened by clothes that rub No treatment, has asked about in past, told to wait until worsened No h/o eczema/psoriasis, skin cancer No h/o diabetes in Review of Systems Constitutional: Positive for chills and fever. Negative for malaise/fatigue and weight loss. Skin: Positive for rash. Negative for itching. Problem list, past medical history, medications, allergies, social and family history reviewed and updated in PRISM as appropriate. Current Outpatient Medications: chlorhexidine (HIBICLENS) 4 % liquid doxycycline (VIBRA-TABS) 100 mg tablet nicotine polacrilex (NICORETTE) 2 mg gum UNABLE TO FIND No current facility-administered medications for this visit. Objective: Blood pressure 124/72, pulse 76, weight (!) 113.4 kg (250 lb). Physical Exam Constitutional: She appears well-developed. No distress. Skin: Scattered pustules bilateral inner thighs, hyperpigmented lesions. 2 small furuncles, 1 on each proximal inner thigh Assessment/Plan: Diagnoses and all orders for this visit: Recurrent boils - chlorhexidine (HIBICLENS) 4 % liquid - doxycycline (VIBRA-TABS) 100 mg tablet for 14 days. - May need to levi furuncles if cannot clear with hibiclens, warm soaks If medications were prescribed, indications for the medication as well as most common side effects were discussed with the patient. Jessica Navarro MD documented in this encounter Plan of [...] more about your health please v isit: https://www.[facility].org/medcenter/Pages/Wellness-Resources/Ttvsnlqox-Ohdfpg-Ir documented as of this encounter Visit Diagnoses Diagnosis Recurrent boils - Primary Carbuncle and furuncle of unspecified si te documented in this encounter Care Teams Pencils Washer Relationship Specialty Start Date End Date Sana Muhammad MD PCP - General 12/02/16 08/05/20 documented as of this encounter
--- OUTSIDE RECORDS SUMMARY | 2021-08-16 23:31 | XMS_ITS | Encounter Summary ---
:1990 Author Organization [facility] Address [address] [place] [address] Care Team Providers Name Role Phone Sana Muhammad MD Primary Care Provider Reason for Referral Consult (Routine/Next Available) - Closed Specialty Diagnoses / Procedures Referred By Contact Refer red To Contact Diagnoses Schizotypal personality ([facility]) ([facility]) Sara Berg MD [address] [place] [phone] Referral ID Status Reason Start Date Expiration Date Visits V isits Requested Authorized [id number] Closed Specialty 05/23/2018 1 1 Services Required Question Answer Reason for Request: [facility] psyc hiatrist and counselor, because pt schizotypal and on 2 antipsy chotics, would benefit from monitoring of if needs inten sive med mnagement and if is helping her or not Reason for Visit Reason Comments Mental Health Condition Encounter Details Date Type Department Care Team Description 05/23/2018 Office Visit [facility] Sara Berg al Family Medicine - MD Fatemeh personality ([facility]) [address] (Primary Dx) [address] [place] [id number] [phone] Social History Tobacco Use Types Packs/Day Years [...] Sign Reading Time Taken Comments Blood Pressure 132/78 05/23/2018 1134 EDT Pulse 88 05/23/2018 1134 EDT Temperature - - Respiratory Rate - - Oxygen Saturation - - Inhaled Oxygen Concentration - - Weight 113.4 kg (250 lb) 05/23/2018 1134 EDT Height 162.6 cm (5' 4.02) 05/23/2018 1134 EDT Body Mass Index 42.89 05/23/2018 1134 EDT documented in this encounter Functional Status [...] as of this encounter Patient Instructions Patient InstructionsDorothea Shaver - 05/23/2018 12:00 EDT I am going to talk with the psychiatrist that you saw recently to see where you are in the process of being set up with a psychiatrist and counselor regularly. I feel you need this support with all that you are going through. I will call you if your pyschiatrist recommends a medication to change or add. She may recommend more services for you--we talked about returning [facility] vs assist bed for a night or two, vs an intensive outpatient progrma or startin regularly with a psychiatrist. Here is crisis line in case you develop thoughts of concern for self harm: Crisis line: [facility]: [phone] We have a line 24 hours per day for you to consult if you have questions about your medications or need to talk: [phone] Quitting smoking Stopping smoking is the best [...] work with a trained counselor. Counseling in [facility] offers free smoking cessation counseling services to [facility] including a telephone quit line, in person cessation groups, and Quitnet - an online quit service. You may be able to get nicotine replacement medications for low or even no cost through these counseling services depending on your insurance. The [place] Department of Health also has tips and tools for those who want to try to quit on their own. To learn more about these options go to www.Briteseedwork.org or call 8 372-475-NWNM-FGA ( ). I hope you quit smoking. I think it's the best thing you can do for your health. Please call our office if you have any questions. documented in this encounter Progress Notes Sara Berg MD, MD - 05/23/2018 1200 EDT Mary Grace Harris Chief Complaint Patient presents with ??? Mental Health Condition SUBJECTIVE 27 y.o. female presents for acute add on for mental health problems. She has worsening of psychotic symptoms. She is concerned about her soul getting sucked into the center of the earth She feels like no one will really listen and she is walkin . She does have auditory and visual hallucinations and She is on geodon 80 mg bid and also 120 mg at bedtime. Sertraline 150 at night. She is on atarax, cogentin, perphenazine 2 mg bid and also 4 mg prn. She has a boyfriend, and family who are supportive. She was d/c from on 02/02/18. She denies SI or HI. + hallucinations and delusions, admits to this but believes that we are all in danger as a society of being sucked into center of earth with technology. She mentions some other dates and numbers that she does not feel are coincidental. Problem list, medications, family and social history reviewed and updated if relevant in the electronic health record. REVIEW OF SYSTEMS Patient affirms being scared, concerned, hallucinations and delusions, denies being an acute harm toherself or others, denies SI. +nausea and vomiting at times. OBJECTIVE BP 132/78 (BP Cuff Location: Right arm, Patient Position: Sitting, BP Cuff Sizes: Adult, large) Pulse 88 Ht 162.6 cm (64.02) Wt (!) 113.4 kg (250 lb) BMI 42.89 kg/m?? GEN: no distress HEENT: mmm LUNGS: clear HEART: RRR NEURO: no obvious focal deficits PSYCH: Appearance/Behavior: well-groomed, good hygiene, behavior: a bit defensive but discusses her concerns. Speech: normal rate, rhythm, prosody. Mood: depressed Affect: congruent Thought content: answers questions, defensive at times, she is very scared for humanity Thought process: disorganized, recognizes that she has skizotypal and that she has delusions and hallucinations but she feels that this is reality at the same time Judgment/Insight: appears diminished ASSESSMENT/PLAN Mary Grace was seen today for mental health condition. 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 Duong (who did this consultation) about the patient's condition. She provides reassurance that this patient as at her baseline. I feel patient would benefit from a long-term psychiatrist and therapist, so I will order a referral to [facility] to try to set up a psychiatrist, counselor. She seems at or close to her baseline, though this certainly is a scary place for her to be with her fears, so I do not feel there is a need for moreintensive therapy at this time. - AMB CONS/FOLLOW UP ADULT PSYCHIATRY CLINIC - no changes to meds today I spent 25 minutes in [id number] with 20 in discussion, counseling, and explanation of advance directives and (if done) filling out forms pertaining to the advance directives, excluding time spent inthe evaluation and management service. Followup: 1-2 wk or prn with PCP or provider in this clinic who she has seen before to provide some continuity. Sara Berg MD 05/26/2018 13:41 [id number] documented in this encounter Plan of Treatment Scheduled Referrals Name Type Priority Associated Diagnoses Order S chedule AMB CONS/FOLLOW UP Outpatient Referral Routine Schizotypal Or dered: ADULT PSYCHIATRY personality 05/23/2018 CLINIC ([facility]) documented as of this encounter Goals Goal Patient Goal Associated Recent Patient-Stated? 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
--- OUTSIDE RECORDS SUMMARY | 2021-08-16 23:31 | XMS_ITS | Encounter Summary ---
:1990 Author Organization [facility] Address [address] [place] [address] Care Team Providers Name Role Phone Sana Muhammad MD Primary Care Provider Reason for Visit Reason Onset Date Comments Other 10/24/2018 Encounter Details Date Type Department Care Team Description 10/24/2018 Telephone [facility] Family Sana Muhammad MD Other Medicine - [address] [phone] [place], [place] [address] [phone] Social History Tobacco Use Types Packs/Day Years [...] this encounter Miscellaneous Notes Telephone Encounter - Celine Kohler - 10/24/2018 0932 EDT Fabi from [employer] left a message on the message line on Tuesday, October 23, 2018 at 6:29 pm regarding this patient. She was seen in the [facility] ED for auditory hallucinations, telling herself to hurt herself, over whelming negative thoughts. Patient was recently seen by Mandy Li and prescribed a new medication. The patient went to the ED to ask for a medication change which cannot be done in the ED. Patient did not have an suicidal ideations, or thoughts of harming others. She is following up with Mandy on Wednesday10/28/18. If Dr. Muhammad has any questions please call. documented in this encounter Plan of [...] health please v isit: https://www.[facility].org/medcenter/Pages/Wellness-Resources/Tvcpvkquh-Xifafq-Zq documented as of this encounter Visit Diagnoses Not on filedocumented in this encounter Care Teams Alumina Plant Supervisor Relationship Specialty Start Date End Date Sana Muhammad MD PCP - General 12/02/16 08/05/20 documented as of this encounter
--- OUTSIDE RECORDS SUMMARY | 2021-08-16 23:31 | XMS_ITS | Encounter Summary ---
:1990 Author Organization [facility] Address [address] [place] [address] Care Team Providers Name Role Phone Sana Muhammad MD Primary Care Provider Reason for Visit Reason Onset Date Comments Release of Information 10/14/2018 Encounter Details Date Type Department Care Team Description 10/14/2018 Telephone [facility] Sana Muhammad Re lease of Information Family Medicine - [address] [phone] (Wo rk) Social History Tobacco Use Types [...] this encounter Miscellaneous Notes Telephone Encounter - Sheree Nadine - 10/14/2018 1606 EDT Release of Records received on 10/14/18 Records to be sent to [facility] Sent to HIM on 10/14/18 documented in this encounter Plan of Treatment Not on filedocumented as of this encounter Goals Goal Patient Goal Associated Recent Patient-Stated? 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[place], dependence Vania syndrome Healthy General On track [...] more about your health please v isit: https://www.[facility].org/medcenter/Pages/Wellness-Resources/Rykxvlkuz-Bjplbv-Ae documented as of this encounter Visit Diagnoses Not on filedocumented in this encounter Care Teams Quality Control Coordinator Relationship Specialty Start Date End Date Sana Muhammad MD PCP - General 12/02/16 08/05/20 documented as of this encounter
--- OUTSIDE RECORDS SUMMARY | 2021-08-16 23:31 | XMS_ITS | Encounter Summary ---
:1990 Author Organization [facility] Address [address] [place] [address] Care Team Providers Name Role Phone Sana Muhammad MD Primary Care Provider Encounter Details Date Type Department Care Team Description 11/15/2018 Travel Social History Tobacco Use Types Packs/Day [...] more about your health please v isit: [email or web address]/[email or web address] documented as of this encounter Visit Diagnoses Not on filedocumented in this encounter Care Teams Combination Machine Tool Setter Relationship Specialty Start Date End Date Sana Muhammad MD PCP - General 12/02/16 08/05/20 documented as of this encounter
--- OUTSIDE RECORDS SUMMARY | 2021-08-16 23:31 | XMS_ITS | Encounter Summary ---
:1990 Author Organization [facility] Address [address] [place] [address] Care Team Providers Name Role Phone Sana Muhammad MD Primary Care Provider Reason for Visit Reason Onset Date Comments Referral Request 05/23/2018 Encounter Details Date Type Department Care Team Description 05/23/2018 Telephone [facility] Family Sara Berg, Referral Request Medicine - Benjy PORTILLO [address] [address] [place] [phone] (Wo rk) Social History Tobacco Use Types [...] this encounter Miscellaneous Notes Telephone Encounter - Mita Johnson - 05/23/2018 1574 EDT Please review and discuss with your provider at weekly meeting. Patient was referred to Dr. Duong but she has already seen Dr. Duong for a consult on 2/6/19. Dr. Duong does not do ongoing appointments. documented in this encounter Plan of Treatment Not on filedocumented as of this encounter Goals Goal Patient Goal Associated Recent Patient-Stated? 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
--- OUTSIDE RECORDS SUMMARY | 2021-08-16 23:31 | XMS_ITS | Encounter Summary ---
:1990 Author Organization [facility] Address [address] [place] [address] Care Team Providers Name Role Phone Sana Muhammad MD Primary Care Provider Reason for Visit Reason Comments Other Encounter Details Date Type Department Care Team Description 01/23/2018 [facility] Family Sana Muhammad MD Other Medicine - [address] [address] [place] [address] [phone] Social History Tobacco Use Types Packs/Day Years [...] Telephone Encounter - Ernestine Polanco RN - 01/24/2018 0857 EST Patient is currently inpatient. documented in this encounter Plan of Treatment Not on filedocumented as of this encounter Goals Goal Patient Goal Associated Recent Patient-Stated? 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
--- OUTSIDE RECORDS SUMMARY | 2021-08-16 23:31 | XMS_ITS | Encounter Summary ---
:1990 Author Organization [facility] Address [address] [place] [address] Care Team Providers Name Role Phone Sana Muhammad MD Primary Care Provider Reason for Referral Consult (Routine) - Closed Specialty Diagnoses / Procedures Referred By Contact Refer red To Contact Family Medicine Diagnoses Schizoaffective disorder, depressive type (HCC-CMS) ([facility] Javan Unger [facility] Medicine MD LITO [address] [place] [address] [place] [address] Referral ID Status Reason Start Date Expiration Date Visits V isits Requested Authorized [id number] Closed Specialty 02/09/2018 1 1 Services Required Question Answer Reason for Request: Schizoaffective disorder, me dication management Practice Site (External Referral Only): [facility] with Krista Duong Reason for Visit Reason Comments Referral Request Encounter Details Date Type Department Care Team Description 02/09/2018 Office Visit [facility] Unknown, Prov MD alexey Schizoaffective disorder, Family Medicine - Crys Pardo MD [address] [place] [phone] depressive type (HCC-CMS) [place] (Primary Dx) [address] [place] [id number] Social History Tobacco Use Types Packs/Day Years [...] Sign Reading Time Taken Comments Blood Pressure 124/62 02/09/2018 1556 EST Pulse 78 02/09/2018 1556 EST Temperature - - Respiratory Rate - - Oxygen Saturation - - Inhaled Oxygen Concentration - - Weight 120.7 kg (266 lb) 02/09/2018 1556 EST Height - - Body Mass Index 45.66 01/23/2018 1806 EST documented in this encounter Functional Status [...] encounter Patient Instructions Patient InstructionsBaDiana riddle - 02/09/2018 15:15 EST Professionals or agencies I can contact during a crisis 1. PCP: Sana Muhammad 2. Psychiatrist: Krista Duong MD 3. [facility] Dial 2-1-1 4. Mental Health services at [facility] or [phone]. 5. [facility] Emergency Department [address] [place] [address], [phone] 6. National Suicide Hotline Phone: 7. [facility] Crisis Line Under 18: [facility] therapy, may be an option in the future Smoking Stopping smoking is the best step you [...] work with a trained counselor. Counseling in [facility] offers free smoking cessation counseling services to [facility] including a telephone quit line, in person cessation groups, and [employer]uit[employer] - an online quit service. You may be able to get nicotine replacement medications for low or even no cost through these counseling services depending on your insurance. The [place] Department of Health also has tips and tools for those who want to try to quit on their own. To learn more about these options go to www.[facility].org or call 6 696-496-LGGO-HJX ( ). I hope you quit smoking. I think it's the best thing you can do for your health. Please call our office if you have any questions. documented in this encounter Progress Notes Arely Hernandez MD - 02/09/2018 1748 EST Attestation statement: I discussed the patient with the resident/fellow at the time of the visit. I agree with the findings and the plan of care documented in the resident's/fellow's note. Arely Hernandez MD rodaviansCrys MD - 02/09/2018 1519 EST Subjective: Patient ID: Mary Grace Harris is an 27 y.o. female. Chief Complaint Patient presents with ??? Referral Request HPI: 1) ?Schizoaffective disorder, depressive type Recently discharged from [facility] inpatient psychiatric admission on 02/02/2018 For auditory and visual hallucinations -- d/c summary reviewed and now scanned into EMR from [facility] Was recommended to stop using marijuana daily as they thought this may have prompted the visual and auditory hallucinations she was having Since d/c she has not been using marijuana and notices she feels better without it denies hallucinations since discharge Denies self-harm thoughts, suicidal ideation or homicidal ideation Does not have psychiatrist currently Current meds reviewed and updated in med reconcilliation, in accordance with changes made upon d/c from [facility]: Current Outpatient Medications: albuterol 90 mcg/actuation inhaler benztropine (COGENTIN) 2 mg tablet cyclobenzaprine (FLEXERIL) 10 mg tablet hydrOXYzine (ATARAX) 25 mg tablet Q8h PRN LORazepam (ATIVAN) 0.5mg tablet Q8h PRN omeprazole (PRILOSEC) 20 mg capsule perphenazine (TRILAFON) 2 mg tablet perphenazine (TRILAFON) 4 mg tablet sertraline (ZOLOFT) 150 mg tablet daily ziprasidone (GEODON) 60 mg capsule at bedtime ziprasidone (GEODON) 80 mg capsule BID ROS - as per HPI Reviewed PMH, Family Hx, Social Hx, Medication List and Allergies Patient Active Problem List Diagnosis ??? Depression ??? Celiac disease ??? Anxiety ??? Psychosis (HCC-CMS) ??? Chronic pain syndrome ??? Supervision of normal first ??? Tobacco dependence syndrome Objective: BP 124/62 (BP Cuff Location: Right arm, Patient Position: Sitting, BP Cuff Sizes: Adult, large) Pulse 78 Wt (!) 120.7 kg (266 lb) BMI 45.66 kg/m?? Reviewed vitals Gen: Well-appearing obese female / no acute distress / well-groomed, brightly dyed blonde hair, heavy eye makeup applied HEENT: Atraumatic, EOMI, no scleral icterus or conjunctival injection Neck: supple, normal ROM CV: RRR, normal S1/ S2, no murmur RESP: Unlabored breathing, no respiratory distress/ CTAB, no wheezing, rhonchi or crackles LE: No edema, intact distal pulses Skin: No rashes, warm and well-perfused Psych/Neuro: Flattened affect, but full range at times during exam, makes appropriate eye contact / answers questions easily and appropriately / A&O x3 Assessment/Plan Mary Grace was seen today for referral request. Diagnoses and all orders for this visit: Schizoaffective disorder, depressive type ([facility]) Patient appears to be doing well on current medication regimen since discharge from [facility], no longer bothered by hallucinations or overwhelming depressive symptoms. Congratulated patient on continued abstinence from marijuana, as this appears to be helping as well. Recommendations from [facility] were for patient to have regular psychiatric care, as well as diagnosis confirmation. She feels comforted by this plan as well. No changes to medications at this time. - AMB CONS/FOLLOW UP ADULT PSYCHIATRY CLINIC -- [facility] with Dr. Duong for medicationmanagement / confirmation of diagnosis and follow-up psychiatric care - Reviewed availability of crisis care and crisis numbers given Discussed with Attending, Dr. David Pardo MD Family Medicine, PGY-3 02/10/2018 7:52 documented in this encounter Plan of Treatment Scheduled Referrals Name Type Priority Associated Diagnoses Order S chedule AMB CONS/FOLLOW UP Outpatient Routine Schizoaffective Ordere d: ADULT PSYCHIATRY Referral disorder, depressive 07/2017 CLINIC type ([facility]) documented as of this encounter Goals Goal Patient Goal Associated Recent Patient-Stated? 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[place], dependence Vania syndrome documented as of this encounter Visit Diagnoses Diagnosis Schizoaffective disorder, depressive typ e ([facility]) ([facility]) - Primary Schizoaffective disorder, unspecified co ndition documented in this encounter Historical Medications This list may reflect changes made after this encounter. Medication Sig Dispensed Refills Start Date End Date hydrOXYzine (ATARAX) 25 Take 25 mg by mouth 0 03/21/2018 mg tablet 3 times daily as needed for Anxiety. added in this encounter Care Teams Pin Game Machine Inspector Relationship Specialty Start Date End Date Sana Muhammad MD PCP - General 12/02/16 08/05/20 documented as of this encounter
--- OUTSIDE RECORDS SUMMARY | 2021-08-16 23:31 | XMS_ITS | Encounter Summary ---
:1990 Author Organization [facility] Address [address] [place] [address] Care Team Providers Name Role Phone Sana Muhammad MD Primary Care Provider Reason for Visit Reason Comments Psychiatric Evaluation pt states theres a verma g oing on in my head. Started recently seeing dipesh hernadez Started a new psychosis med 2 days ago. For the last 4 day s having thoughts that are harming me. Pt denies any t houghts of carring out any action to harm hersellf or other pe ople. Denies SI/HI when asked. Encounter Details Date Type Department Care Team Description 10/23/2018 Emergency [facility] Keri Norman PA-C [address] [place] [address] [address] [place] [address] Agitation (Primary Dx) Emergency Department Simi Ca PA-C [address] [facility] [address] [place] [address] - [facility] Emergency, MD Chelsy [address] [place] [address] Social History Tobacco Use Types Packs/Day Years Used Date Current Every Day Smoker 0.5 10 Smokeless Tobacco: Never Used Alcohol Use Standard Drinks/Week Comments Yes 3 (1 standard drink = 0.6 oz pure alcoho l) occ Sex Assigned at Date Recorded Not on file documented as of this encounter Last Filed Vital Signs Vital Sign Reading Time Taken Comments Blood Pressure 127/84 10/23/2018 1443 EDT Pulse 101 10/23/2018 1443 EDT Temperature 36.3 ??C (97.4 ??F) 10/23/2018 1443 EDT Respiratory Rate 18 10/23/2018 1443 EDT Oxygen Saturation 99% 10/23/2018 1443 EDT Inhaled Oxygen Concentration - - Weight 108.9 kg (240 lb) 10/23/2018 1443 EDT Height - - Body Mass Index 41.18 09/19/2018 1507 EDT documented in this encounter Functional Status [...] making decisions? 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 You have also when she stated you do not have any thoughts of hurting self or anyone else however that we would strongly encourage her to be seen back emergently if that should dev elop. documented in this encounter Medications at Time of Discharge Medication Sig Dispensed Refills Start Date End Date benztropine (COGENTIN) 2 Take 2 mg by mouth 2 0 11/14/2018 mg tabletIndications: times daily. drug-induced extrapyramidal reaction chlorhexidine (HIBICLENS) Wash affected area 4000 mL 2 11/14/2018 4 % liquidIndications: in shower daily Recurrent boils DULoxetine (CYMBALTA) 30 Take 1 Cap by mouth 30 Cap 2 11/14/2018 mg delayed release daily. capsuleIndications: Depression, unspecified depression type, Anxiety, Fibromyalgia risperiDONE (RISPERDAL) 2 Take 0.5 mg by mouth 0 10/21/2018 11/14/2018 mg tabletIndications: at bedtime. Take 2- schizophrenia 0.5tabs qhs UNABLE TO FIND Med Name: Nexplanon 0 0 11/14/2018 implanted 08/13/2016 documented as of this encounter Discharge Disposition Disposition Code Departure Means Destination Comments Home or Self Care Car Pt seen by [facility] and has been discharged. Pt discharged home and is going by [employer] vehicle. Pt's AVS was printed for and reviewed with pt at time of discharge. Pt's personal belong ings were never taken and all i n her possession went with her. Pt denies SI/HI at time of dischar ge. documented in this encounter ED Notes Beni Coyle RN - 10/23/2018 3205 EDT Pt seen by [facility] and has been discharged. Pt discharged home and is going by private vehicle. Pt's AVS was printed for and reviewed with pt at time of discharge. Pt's personal belongings were never taken and all in her possession went with her. Pt denies SI/HI at time of discharge. Beni Farrell RN - 10/23/2018 1523 EDT Screen Machine Operator introduces self to patient in GT39. Pt has not been changed into facility approved scrubs as she is not endorsing SI/HI. Pt is c/o AVH which has been going on for 7 years. Pt states that she was just started on Risperidone last Wednesday and things have gotten worse since she started taking it. Pt states that she feels like she has 2 brains and they are both pulling her in opposite directions. Pt's medication list confirmed with Pharmacist at [facility] in [place], [place]. Pt will be monitored for safety. Sana Lemon PA - 10/23/2018 1516 EDT DOS: 10/23/2018 Chief Complaint Patient presents with ??? Psychiatric Evaluation pt states theres a verma going on in my head. Started recently seeing [facility]. Started a new psychosis med 2 days ago. For the last 4 days having thoughts that are harming me. Pt denies any thoughts of carring out any action to harm hersellf or other people. Denies SI/HI when asked. HPI The patient is a 27 y.o. female who presents today with Psychiatric Evaluation (pt states theres a verma going on in my head. Started recently seeing [facility]. Started a new psychosis med 2 days ago. For the last 4 days having thoughts that are harming me. Pt denies any thoughts of carringout any action to harm hersellf or other people. Denies SI/HI when asked. ) HPI Patient presents here today secondary to a worsening of her psychosis. She states that she was diagnosed with major depressive disorders were well as it so typical disorder in the last few months andstarted by psychiatry on risperidone, benztropine and Cymbalta. She states that she is worried her ba seline symptoms are now worsening. She states the thoughts in her hands/auditory hallucinations are becoming stronger and more powerful. She states these thoughts/auditory hallucinations tell her to harm herself. She is beginning to believe them and feels as though that side of her brain is taking over. She states that she feels like she lives in 3 different realms and sometimes when she is in the right realm she knows enough to go to get help. She does deny any thoughts at this time of hurting herself or anyone else. She is very interested in seeing [facility] as well as psychiatry here in our ED.She appears stable and in no acute distress while discussing her case with her today. Review of Systems Review of Systems Constitutional: Negative for chills and diaphoresis. HENT: Negative for facial swelling and voice change. Eyes: Negative for redness. Respiratory: Negative for choking and shortness of breath. Skin: Negative for color change and pallor. Neurological: Negative for facial asymmetry and speech difficulty. Psychiatric/Behavioral: Positive for hallucinations and sleep disturbance. Negative for agitation, confusion and suicidal ideas. The patient is not nervous/anxious. Allergies Allergen Reactions ??? Gluten Protein ??? Haldol [Haloperidol Lactate] paralysis ??? Paxil [Paroxetine Hcl] Nausea And Vomiting Vital Signs Temp: 36.3 ??C (97.4 ??F) Temp src: Temporal Pulse: 101 Resp: 18 SpO2: 99 % BP: 127/84 BP Device: BP Machine Patient Position: Sitting O2 Device: None (Room air) Physical Exam Constitutional: She is oriented to person, place, and time. She appears well- developed and well-nourished. No distress. HENT: Head: Normocephalic and atraumatic. Neck: Normal range of motion. Neck supple. Pulmonary/Chest: Effort normal. Neurological: She is alert and oriented to person, place, and time. Skin: Skin is warm and dry. She is not diaphoretic. Psychiatric: Judgment normal. Her mood appears anxious. Her affect is not angry, not blunt, not labile and not inappropriate. Her speech is not rapid and/or pressured, not delayed, not tangential and not slurred. She is actively hallucinating. She is not agitated, not aggressive, not hyperactive, not slowed, not withdrawn and not combative. Thought content is paranoid. She does not express impulsivity or inappropriate judgment. She exhibits a depressed mood. She expresses no suicidal ideation. She expresses no suicidal plans. She is communicative. ED COURSE A medical screening exam was performed. Patient presents today with symptoms of worsening hallucinations in particular auditory. She is a paranoid schizophrenic that reports having been just placed on 3 new medications over the last 3 days. She states she has a good side of her brain and a bedside of her brain. The bad side of her brain thoughts are increasingly worsening in the setting that they aretelling her to harm herself. This is making her worried that she believes they are becoming strong and may actually act on them. At this time she denies any thoughts of hurting herself or anyone else. She understands that she needs to do an evaluation with [facility] and then likely see our psychiatryteam prior to any planned being set. She is amendable to this. Cleared by [facility] and psychiatry to go home/discharged she has an appointment with PCP and her psychiatrist next week. No thoughts of harming herself or anyone else. Final diagnoses: None PCP: Sana Jiménez 10/23/2018 17:29 No flowsheet data found. documented in this encounter Plan of Treatment Not on filedocumented as of this encounter Goals Goal Patient Goal Associated Recent Patient-Stated? 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[place], dependence Vania syndrome Healthy General On track [...] more about your health please v isit: [email or web address]/Pages/Wellness-Resources/Unkirkhos-Kpabzw-Dd documented as of this encounter Visit Diagnoses Diagnosis Agitation - Primary Other and unspecified special symptom or syndrome, not elsewhere classified documented in this encounter Historical Medications This list may reflect changes made after this encounter. Medication Sig Dispensed Refills Start Date End Date benztropine (COGENTIN) 2 mg Take 2 mg by mouth 0 11/14/2018 tabletIndications: 2 times daily. drug-induced extrapyramidal reaction risperiDONE (RISPERDAL) 2 Take 0.5 mg by 0 201811/14/2018 mg tabletIndications: mouth at bedtime. schizophrenia Take 2- 0.5tabs qhs added in this encounter Care Teams Operations Scheduler Relationship Specialty Start Date End Date Sana Muhammad MD PCP - General 12/02/16 08/05/20 documented as of this encounter
--- OUTSIDE RECORDS SUMMARY | 2021-08-16 23:31 | XMS_ITS | Encounter Summary ---
:1990 Author Organization [facility] Address [address] [place] [address] Care Team Providers Name Role Phone Sana Muhammad MD Primary Care Provider Reason for Visit Reason Comments Psychiatric Evaluation Pt with schizophrenia; patie nt twirling hair and irritable. Pt describes living in 2 realm s at the same time. Encounter Details Date Type Department Care Team Description 01/23/2018 - Emergency [facility] Martino PA-C [address] [facility], [facility] [address] [place] [address] Psychosis, 01/24/2018 Emergency Department Tae Flores PA-C unspecified psychosis - [facility] Feliciano Sharma PA-C [address] [facility], [facility] [address] [place] [address] type ([facility]) [address] [facility], [place] [address] Social History Tobacco Use Types Packs/Day Years Used Date Current Every Day Smoker 0.5 10 Smokeless Tobacco: Never Used Alcohol Use Standard Drinks/Week Comments No 0 (1 standard drink = 0.6 oz pure alcoho l) occ Sex Assigned at Date Recorded Not on file documented as of this encounter Last Filed Vital Signs Vital Sign Reading Time Taken Comments Blood Pressure 119/78 01/24/2018 0832 EST Pulse 106 01/24/2018 0832 EST Temperature 37.4 ??C (99.3 ??F) 01/23/2018 1806 EST Respiratory Rate 16 01/24/2018 0832 EST Oxygen Saturation 98% 01/24/2018 0832 EST Inhaled Oxygen Concentration - - Weight 113.4 kg (250 lb) 01/23/2018 1806 EST Height 162.6 cm (5' 4) 01/23/2018 1806 EST Body Mass Index 42.91 01/23/2018 1806 EST documented in this encounter [...] a substanc e or known physiol cond-F29[ICD-10-CM] F12.90 Cannabis use, unspecified, uncomp licated-F12.90[ICD-10-CM] F20.0 Paranoid schizophrenia-F20.0[ICD-1 0-CM] 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 benztropine (COGENTIN) 2 take 2 tablet by 360 Tab 1 09/0203/21/2018 mg tabletIndications: mouth twice a day Paranoid schizophrenia (HCC-CMS) (FORM[facility]LY [facility]) cyclobenzaprine (FLEXERIL) take 1 tablet by 30 Tab 5 03/21/2018 10 mg tablet mouth once daily at bedtime LORazepam (ATIVAN) 1 mg take 1 tablet by 60 Tab 2 201703/21/2018 tabletIndications: mouth twice a day Paranoid schizophrenia ([facility]) ([facility]) omeprazole (PRILOSEC) 20 take 1 capsule by 90 Cap 1 11/0603/21/2018 mg capsule mouth once daily perphenazine (TRILAFON) 2 Take 1 Tab by mouth 60 Tab 5 1 04/29/2016 03/21/2018 mg tabletIndications: 2 times daily. Paranoid schizophrenia ([facility]) ([facility]) perphenazine (TRILAFON) 4 Take 1 Tab by mouth 30 Tab 5 1 04/29/2016 03/21/2018 mg tabletIndications: as needed (can take Paranoid schizophrenia 1-2 tabs PRN in ([facility]) ([facility]) addition to her 2 mg (maximum 10 mg dose)). sertraline (ZOLOFT) 100 mg take 1 tablet by 30 Tab 5 03/21/2018 tabletIndications: mouth once daily at Paranoid schizophrenia bedtime (FORM[facility]) ([facility]) UNABLE TO FIND Med Name: Nexplanon 0 0 11/14/2018 implanted 08/13/2016 ziprasidone (GEODON) 60 mg Take 2 Caps by 60 Cap 5 02/2603/21/2018 capsuleIndications: mouth every Paranoid schizophrenia evening. ([facility]) ([facility]) ziprasidone (GEODON) 80 mg Take 1 Cap by mouth 30 Cap 5 02/26/2017 03/21/2018 capsuleIndications: daily. Paranoid schizophrenia ([facility]) ([facility]) documented as of this encounter Discharge Disposition Disposition Code Departure [facility] documented in this encounter Progress Notes Krista Duong MD - 01/24/2018 3591 EST Images from the original note were not included. Pt seen and evaluated throughout the day. She is well relatable, notes she is smoking marijuana twice daily for approx 10 years. Based on chart review her belief of paranormal activity is fixed and does not appear to be changed from baseline at this time. Report was initially that she was not attending to her ADLs however she presents with full makeup, pink dyed hair, clean clothing, and fully packedbags. She remains hopeful that hospitalization will improve her mood and functioning. Plan for [place] with transport around 5pm. DX: unspecified psychosis Krista Duong M.D. Psychiatry Attending Pager: [phone] I spent a total of 15 minutes in direct floor time dedicated solely to this patient and >50% of that time was spent in discussion with the patient about the risks and treatment options for psychosis. documented in this encounter Consult Notes Dane Victor MD - 01/24/2018 0236 EST Psychiatry Consultation Date of Consult: 01/24/2018 Patient Profile: Mary Grace Harris 27 y.o. female Reason for Psychiatry Consultation: Psychosis Chief complaint(s) & onset (pt's own words): I've gotten really irritable. History of Present Illness: Informants: patient, chart, crisis Mary Grace Harris is a 27 year old woman with a PMH of unspecified psychosis who presents due to worsening psychotic symptoms. The patient starts by relating that, I've gotten really irritable. She says she was last hospitalized three years ago at and was placed on a medication regimen that w orked. However, she says that since then none of her medications have been adjusted. She is concerned that they need to be adjusted as over the last 1-2 months she has noticed more symptoms of schizophrenia (which she says she was diagnosed with previously). She explains these symptoms as increasingly feeling she has a special insight into whether people and their actions are light or darkness. She feels she is a teleprinter to emotions or something similar. She has also had increasing difficulty maintaining her ADLs. Per Crisis, who talked with the patient's , the patient has been accusing her five year old son of stealing her cigarettes, has been increasingly saying she is going to move with her son to [place], and has in general been more withdrawn and irritable. He has observed her relationship with her son deteriorating, but says she is typically an outstanding mother. When asked about mood symptoms, the patient endorses difficulty enjoying things, low self esteem, fatigue, and increased appetite / binge eating at night. The had reported her sleeping much more, too. She also says, I'm hopeless and helpless. She denies SI or HI and has no history of suicidal or violent behaviors. She does endorse hearing voices, but frames it as she is hearing the thoughts that the interviewer is thinking along with everyone else, even through the estrada. She says her voices do not tell her to hurt herself or others. She does also endorse anxiety. Of other note, the patient smokes two bowls of marijuana daily, once in the morning and once at night. Importantly, the patient stopped taking her medications for somewhere between 2-5 days about two weeks ago (she reports two days, per crisis/ it was 4-5 days). She says she stopped them because she thought she didn't need them anymore. During that time, she says she drank 0.5 bottle of wine per day. However, she resumed her medications after this and has been taking them for the last week. When asked where she would like to see her care go, she says she hopes to go to either [facility] or [facility],preferably [facility] because she feels her main need is medication adjustments and they were better at it previously. Psychiatric Review of Systems: P N (P=present, N=not present) X Depression Hypomania/ishaan Panic x Anxiety Obsessions/compulsions Phobia Dissociation General Review of Systems: Endorses generalized upper body pain due to playing football when I was younger. Past Psychiatric History: Past self harm or suicide attempts: denies Past violence toward others: denies Past hospitalization: [facility] 1x, [facility] 1x Medical/Surgical History: Past Medical History: Diagnosis Date [...] Active Problem List Diagnosis Date Noted ??? Schizophrenia, paranoid (HCC-CMS) 12/02/2016 Priority: Medium ??? Supervision of normal first 04/24/2012 Priority: Medium ??? Tobacco dependence syndrome 04/24/2012 Priority: Medium ??? Paranoid schizophrenia ([facility]) 03/22/2012 Priority: Medium ??? Chronic pain syndrome 03/22/2012 ??? Depression 04/10/2009 ??? Celiac disease 04/10/2009 ??? Anxiety 04/10/2009 Medications: Current Facility-Administered Medications: nicotine polacrilex (NICORETTE) gum 4 mg oral PRN Current Outpatient Medications: albuterol 90 mcg/actuation inhaler benztropine (COGENTIN) 2 mg tablet cyclobenzaprine (FLEXERIL) 10 mg tablet LORazepam (ATIVAN) 1 mg tablet omeprazole (PRILOSEC) 20 mg capsule perphenazine (TRILAFON) 2 mg tablet perphenazine (TRILAFON) 4 mg tablet sertraline (ZOLOFT) 100 mg tablet UNABLE TO FIND ziprasidone (GEODON) 60 mg capsule ziprasidone (GEODON) 80 mg capsule Substance Use/Abuse Info. (etoh,drugs,tobacco,caffine) Alcohol: denies generally but reports 0.5 bottles/day for a few days some 10 days ago when off her medications Recreational Drugs: cannabis 2 bowls/day; denies other Tobacco: 0.5 PPD Family History: Mother, grandmother (?), and great grandmother: schizophrenia Family history of by suicide: denies Developmental, Interpersonal & Social History: Lives in [place] with and 5 year old son. Attended some college and denies past abuse. Deniesaccess to guns. Vital Signs: IP vitals Patient Vitals for the past 8 hrs: BP Pulse Resp SpO2 01/23/18 2300 128/83 105 16 97 % Mental Status Examination: A young adult female dressed in casual clothing, pink/red hair, exaggerated eyeliner and bright pinklipstick, in no acute distress. Cooperative, engaged, prolonged eye contact (as if staring past the interviewer). Displays slight psychomotor slowing. Speech is delayed, regular rate, flat tone, moderate volume. Alert and oriented x3. Mood is Irritable. Affect is restricted to flat. Thought process is sometimes linear, sometimes disorganized. Thought content is bizarre/delusional, denies SI, deniesHI. Perceptually endorses AH, unclear if experiencing VH. Impulsivity is low-moderate. Insight is fair. Judgment is fair. Recent and remote memory intact. Fund of knowledge is appropriate for age. Language is appropriate. Assessment: Mary Grace Harris is a 27 year old woman with a PMH of unspecified psychosis who presents due to worsening psychotic symptoms. The patient and her each identify that the patient has been more irritable, disorganized, and been experiencing auditory hallucinations and delusional ideation. The patient is also endorsing numerous depressive symptoms that is concerning for schizoaffective disorder. Importantly, the patient has had no SI or HI and no past history of suicidal or violent behaviors. Her voices are not telling her to hurt herself or anyone else. However, due to the mix of her symptom severity alongside how it is impacting her relationship with her son/family while displaying worsening ADLs, the patient appropriately identifies that a higher level of care is appropriate. She prefers , but is also open to [facility]. Bed availability can be explored tomorrow. Will need to also consider the impact her cannabis use and fairly recent medication non-adherence plus heavy alcohol use has had on her current presentation. Regardless, patient not currently EE'able. Diagnostic Impression: Psychosis, unspecified. R/o schizoaffective disorder Suicide Risk Assessment Overall Risk Rating: Acute: Low Chronic: Low Comments on Assessment of Risk: No SI, no past self harm, identifiable protective factors Recommendations: - Patient has no self harm or violent ideation and no history of either; patient is not believed to be at an elevated risk of harm to self and does not need a constant observer - Patient is not currently considered EE'able - ct REGULATORY SCIENTIST psych meds Perphenazine 2 mg BID, 4 mg PRN Ziprasidone 80 mg qAM, 120 mg qPM Lorazepam 1 mg BID Benztropine 2 mg BID Sertraline 100 mg daily - In the event of a behavioral emergency, consider: haloperidol 5 mg, lorazepam 2 mg, and diphenhydramine 50 mg IM x1 Disposition: - Inpatient psychiatry at , voluntary - We will continue to round daily until placement is found Please call with any questions. PCS is available 8am - 5pm at pager [phone], and on-call resident is available weekdays 5pm - 8am and weekends at pager [phone]. Above assessment and plan to be discussed with on-call Psychiatry Attending, Dr. Jonna Victor MD 01/24/2018 2:36 Psychiatry Service PGY-2 [facility] documented in this encounter ED Notes Feliciano Sharma PA-C - 01/24/2018 1708 EST I, Filipe Bentley, am scribing for Feliciano Sharma PA-C while he is personally performing the service. Filipe Bentley 01/24/2018 18:01 Mary Grace Harris is a 27 y.o. female with a history of myofascial pain, schizophrenia, fibromyalgia, scoliosis, asthma, and sciatica who presents to the ED for psychiatric evaluation after feeling more irritable for the past month. Care and work-up prior to sign out includes evaluation by CRISIS. I assumed care of patient from Tae Flores PA-C with placement pending. Patient was transferred to [place]. Prior to discharge usual and customary precautions were reviewed with the patient and/or family including follow-up instructions and reasons to return to the Emergency Department if condition worsens, does not improve as expected, or other new concerns arise. This documentation is recorded by Filipe Bentley acting as Scribe under the direction and presence of Feliciano Sharma PA-C. Feliciano Sharma PA-C: I personally performed the services recorded by the scribe in my presence. I confirm the scribe's documentation has been reviewed by me to accurately and completely record my work, treatment, procedures, and medical decision making. Tae Buck PA - 01/24/2018 1039 EST ER care assumed at 6 AM, awaiting bed placement. No changes during my shift. Signed out to Feliciano Sharma at 3 PM. Dinorah Martin RN - 01/24/2018 0953 EST Patient ate breakfast. Patient remains calm. Patient states I feel lonely, I wish I had someone to talk with. Psychiatry was in to see patient this morning. Dinorah Martin RN - 01/24/2018 0824 EST Patient reports wanting to be admitted to hospital for medication stabilization. Patient has been calm and cooperative. Patient denies SI and HI. Sebas Mccarthy RN - 01/24/2018 0220 EST Summary of RN / Patient interaction with limited MSE Presenting problem of concern that medications are not mediating mood disturbances, notably anxiety and irritibility. Patient goal is to have medications reassessed, possibly amenable to inpatient treatment if necessary. , in attendance agrees with this. Mood is anxious, moderate. Manifested by tachycardia in the 100's to 110's, hypertensive blood pressure in the 150's gradually subsiding to normal range, self report of 7 of 10 scale. Affect congruent. Thought process remarkable for a base condition of auditory and visual hallucinations that are routine and not causing overt distress. Some magical thinking. Smokes medical marijuana for anxiety and pain (/) related to various myalgias and an old high school football injuries. Has a bowl in the morning and one at night. Compliant with medication regimen, no recent changes in type or dose, no recent medical changes or home problems. Sebas Mccarthy RN - 01/24/2018 0131 EST Summary of evening interaction between RN and patient, including a limited MSE. Presenting problem at time of admission is reported irritability with little precipitation or stresscoincident to routine medication compliance and family activities. Also, moderate to strong anxiety to which the patient chooses to use marijuana, one bowl in the AM; one before going to bed at night. Patient and were interviewed together; 5 y/o child watched at home. No unusual dynamics observed or declared by the couple. Anxiety stated to be at a 7 of 10 scale. Pain from myalgsia, torticullis, and various old high school football injuries to be a constant 8, that's why I use also pot for pain. VS were hypertensive with tachycardia. Recheck 1.5 hours later were less remarkable but continued 100+ heart rate. Mood was anxious to a moderate degree, manifested by congruent affect and restless kinetic activity and heart rate. This gradually subsided during the course of the interview. Thought process includes visual and auditory hallucinations which did not create any overt distress. Some magical thinking; thought otherwise content unremarkable. Attitude toward this RN was open and positive. Patient goal is to have medications reassessed for efficacy because of concerns over mood intensity and lability. Amena Caldwell PA - 01/23/2018 2914 EST DOS: 01/23/2018 Chief Complaint Patient presents with ??? Psychiatric Evaluation Pt with schizophrenia; patient twirling hair and irritable. Pt describes living in 2 realms at the same time. HPI I, Carol Ann Clarke, am scribing for Amena Caldwell PA while he/she is personally performing the service. Carol Ann Clarke 01/23/2018 22:06 Mary Grace Harris is a 27 y.o. female with a history of myofascial pain, schizophrenia, fibromyalgia, scoliosis, asthma, and sciatica who presents to the ED for psychiatric evaluation after feeling more irritable for the past month. The patient was seen at [place] 3 years ago, who helped start the medicine regimen that she is currently on. The patient does not have a psychiatrist, but her PCP prescribes the medications. In addition, the patient and her boyfriend broke up two weeks ago which caused additional stress. At that time, the patient endorsed SI and stopped taking her medicine for two days. The patient restarted her medicine, got back with her boyfriend, and is no longer feeling suicidal. However, the patient also endorses auditory and visual hallucinations and thinks they have been recently more common, which makes her think that she may need an increased dose of her medications. The patient states that she is in a lot of pain, and she has been feeling more irritable than she should be. The patient notes that she played high school football and her ribs, clavicles, and back all experience chronic pain. The patient explains that she did not have her evening bowl, and is feeling anxious. However, the patient does not want to try opioids because she thinks that her last psychotic break was due to them. The patient also endorses chronic nausea. The patient denies SI, HI, fever, chills, vomiting, diarrhea, chest pain, cough, difficulty urinating, dysuria, or any recent illness. When questioned about further safety concerns she does not feel there are current safety concerns just roomfor optimization so she does not further decompensate. Social History: The patient smokes 2 bowls of marijuana a day, and 0.25 ppd of cigarettes. Typically, the patient drinks socially but does not actually like it. She typically drinks wine. The history is provided by the patient and medical records. Review of Systems Review of Systems Constitutional: Negative for appetite change, chills and fever. HENT: Negative for congestion. Respiratory: Negative for cough. Cardiovascular: Negative for chest pain. Gastrointestinal: Positive for nausea (chronic). Negative for abdominal pain, diarrhea and vomiting. Genitourinary: Negative for difficulty urinating and dysuria. Musculoskeletal: Positive for arthralgias (chronic), back pain (chronic) and myalgias (chronic). Neurological: Negative for headaches. Psychiatric/Behavioral: Positive for agitation, behavioral problems and hallucinations. Negative forsuicidal ideas. The patient's past medical, family and social history was reviewed and updated as needed. Allergies Allergen Reactions ??? Gluten Protein ??? Haldol [Haloperidol Lactate] paralysis ??? Paxil [Paroxetine Hcl] Nausea And Vomiting Vital Signs Temp: 37.4 ??C (99.3 ??F) Temp src: Oral Pulse: (!) 129 Resp: 17 SpO2: 97 % BP: (!) 141/96 BP Device: BP Machine Patient Position: Sitting BP Cuff Location: Right arm O2 Device: None (Room air) Physical Exam Constitutional: She is oriented to person, place, and time. She appears well- developed and well-nourished. HENT: Head: Normocephalic and atraumatic. Eyes: Conjunctivae and EOM are normal. Pupils are equal, round, and reactive to light. Neck: Normal range of motion. Cardiovascular: Regular rhythm and normal heart sounds. Tachycardia present. 100 bpm Pulmonary/Chest: Effort normal. Neurological: She is alert and oriented to person, place, and time. Skin: Skin is warm and dry. Psychiatric: She has a normal mood and affect. Her speech is normal and behavior is normal. Judgmentnormal. Thought content is not paranoid and not delusional. She expresses no homicidal and no suicidal ideation. She expresses no suicidal plans and no homicidal plans. Well groomed, well appearing, very organized Nursing note and vitals reviewed. RESULTS EKG orders: None Radiology orders: None Procedures ED COURSE A medical screening exam was performed. The patient is a 27 y.o. female, who presents with increased irritability and hallucinations in the past month. On exam, heart RRR. Lungs CTAB. Denies SI, HI. PERRL and EOMI bilaterally. [facility] was notified of the patient Patient was [facility]. Patient was signed out to ulises Maurice at change of shift with disposition pending. Final diagnoses: None PCP: Sana Muhammad MDM Number of Diagnoses or Management Options Diagnosis management comments: 3 01/23/2018 22:05 No flowsheet data found. This documentation is recorded by Carol Ann Clarke acting as Scribe under the direction and presence of Amena Caldwell PA. Amena Caldwell PA: I personally performed the services recorded by the scribe in my presence.I confirm the scribe's documentation has been reviewed by me to accurately and completely record my work, treatment, procedures, and medical decision making. Dr. Renee was available for supervision. Filipe Castillo RN - 01/23/20182101 EST Requesting to take home night time meds. Verbal order from Charles CHEN that its okay for pt to take meds. Filipe Catsillo RN - 01/23/20182041 EST Here for psych evaluation. Brought in by family. Hx of schizophrenia. Calm and cooperative. Wants [facility]go to [facility]. Denies SI/HI. 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 Reports increased agitationin the last month. Client is lying in bed but quickly responds to this technical report writer upon entry to the room. Client presents as a very overweight woman who is dressed in leggings, valeria shirt and sweatjacket. Her hair is long anddyed red though her roots at her part is dark brown. She wears bright pink lipstick and has her eyeslined with equally bright pink eyeshadow. Client appears her stated age. Client is known to [facility] from previous contacts but is not an open client at this time. Client has historic diagnoses of Unspecified Psychotic Disorder, and Unspecified Anxiety Disorder. Client tells this technical report writer that she is here seeking admission to either the [facility] -- which I later discern is ASSIST -- or [facility]. Client was [facility] and feels they did a good job in stabilization and medication recommendations. As will be apparent later in this assessment, the recommendation to ASSIST is not seen as sufficient to meet thisclient's needs. Client denies current SI though she states she did experience SI a few days earlier in the midst of relational tensions with her fiancee. Her partner acknowledges that in the midst of her declining mental state, he has struggled with sustained intimacy. Client denies HI. Client endorses active auditory hallucination and also admits to visual hallucinations in the form of darkness and bright lights. Client also harbors some delusional process, I can wish things into people. Client also tells this technical report writer that Half of my brain is in heaven and half of my brain is in hell. Client admits to agitation and irritability and increasing episodes of vetting. Client reports excessive sleep which does not refresh her I feel like the energy is taken from me. Client also reports increased appetite. Client reports a 100 pound weight gain (150 lbs to 250 lbs) since the of Jose five years ago. Client had been diligent in taking prescribed medications but discontinue perhaps ten days ago for what was reported by boyfriend as 4 - 5 days. During that time, client admits to drinking perhaps a half a bottle of wine each day. Client has a medical marijuana card and reports that she smokes a bowl in the morning and one in the evening. Client is oriented to person, place and time. When reaching out to bobby, this technical report writer obtains broader picture via his details which are suggestive of much broader decompensation and deterioration in attending to day to day responsibilities. Mostspecifically, her ability to parent. On January 13, client called bobby at work to tell him she couldn't find Jose. Apparently he was hiding from her as she frightened him. She reportedly accused Jose of stealing her cigarette and phone. When in her more functional and organized state, Vaughn tells this technical report writer that Mary Grace is an awesome mother. Vaughn has noticed the decline over the past two months and in addition to impacting her parenting, Mary Grace has been remiss in grooming and household maintenance. Odalys has also apparently engaged in soliciting relationships on the Internet. Client also recently told Vaughn that she was taking Jose to [place]. Vaughn Substance Use (if applicable): Client reports she smokes two bowls of marijuana a day. Relevant Psychosocial Information: Client lives with her bobby and their five year old son. 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 She has insight with respect to her current decompensation though this was likely more real due to the expressed concerns of her boyfriend as well as her awareness of her diminished capacity to care for her son who is a focal point in her life. Client endorses active AH/VH and is observed to be actively engaged in delusional process some of which involves Internet relationships that could be compromising. Client believes she has reached a plateau in the efficacy of her current medication regimen and would benefit from inpatient admission to stabilize. She would also benefit from linkage to supportive resources such as case management and psychiatry. Plan: The plan for this patient is: [facility] Consultation with: Dr. Patricio Hunter Wheat Shipper First Call for [facility] documented in this encounter Plan of Treatment Not on filedocumented as of this encounter Goals Goal Patient Goal Associated Recent Patient-Stated? 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 documented in this encounter Results POCT TEST, CLINITEK (01/24/2018 7:46 EST) Pathologist Sig nature UPT Result Neg Neg [facility] environmental epidemiologist ID [id number]: [facility] Test performed at LABORATORY SERVICES Emergency Department Specimen Urine (substance) - Urine Performing Organization Address City/State/ZIP Code Phon e Number [facility] [address] [place] [address] SERVICES documented in this encounter Visit Diagnoses Diagnosis Psychosis, unspecified psychosis type (H CC-CMS) ([facility]) documented in this encounter Administered Medications Inactive Administered Medications - up to 3 most recent administrations Medication Order MAR Action Action Date Dose Rate Site benztropine (COGENTIN) tablet 4 mg Given 01/24/2018 9:27 EST 4 mg 4 mg, oral, 2 TIMES DAILY, First dose on Wed01/24/18 at 0900, Until Discontinued, STAT ibuprofen (MOTRIN) tablet 400 mg Given 01/23/2018 23:25 EST 400 mg 400 mg, oral, NOW X1, 1 dose, On 01/23/18 at 2230, STAT ibuprofen (MOTRIN) tablet 600 mg Given 01/24/2018 11:40 EST 600 mg 600 mg, oral, NOW X1, 1 dose, On Wed01/24/18 at 1130, STAT LORazepam (ATIVAN) tablet 1 mg Given 01/24/2018 9:27 EST 1 mg 1 mg, oral, 2 TIMES DAILY, First dose on Wed01/24/18 at 0900, Until Discontinued, STAT nicotine polacrilex (NICORETTE) gum 4 mg Given 01/24/2018 9:50 EST 4 mg 4 mg, oral, PRN, Starting on 01/23/18 at 2355, Until Wed01/24/18 at 1908, Smoking Cessation, STAT Given 01/24/2018 0:47 EST 4 mg pantoprazole (PROTONIX) tablet 40 mg Given 01/24/2018 9:27 EST 40 mg 40 mg, oral, DAILY, First dose on Wed01/24/18 at 0900, Until Discontinued, STAT perphenazine (TRILAFON) tablet 2 mg Given 01/24/2018 9:28 EST 2 mg 2 mg, oral, 2 TIMES DAILY, First dose on Wed01/24/18 at 0900, Until Discontinued, STAT ziprasidone (GEODON) capsule 80 mg Given 01/24/2018 9:27 EST 80 mg 80 mg, oral, DAILY, First dose on Wed01/24/18 at 0900, Until Discontinued, STAT documented in this encounter Active and Recently Administered Medications Times are shown in EST. Scheduled Medication Order 01/22/2018 01/23/2018 01/24/2018 benztropine (COGENTIN) tablet 4 mg 0927 (Given - Provider: Dinorah Browning RN) 4 mg, oral, 2 TIMES DAILY, First dose on Wed01/24/18 at 0900, Until Discontinued, STAT ibuprofen (MOTRIN) tablet 400 mg (COMPLETED) 2325 (Given - Provider: Sebas Funez RN) 400 mg, oral, NOW X1, 1 dose, 01/23/18 at 2230, STAT ibuprofen (MOTRIN) tablet 600 mg (COMPLETED) 1140 (Given - Provider: Dinorah Browning RN) 600 mg, oral, NOW X1, 1 dose, Wed01/24/18 at 1130, STAT LORazepam (ATIVAN) tablet 1 mg 0 927 (Given - Provider: Dinorah Browning RN) 1 mg, oral, 2 TIMES DAILY, First dose on Wed01/24/18 at 0900, Until Discontinued, STAT pantoprazole (PROTONIX) tablet 40 mg 926 (Given - Provider: Dinorah Browning, RHODA) 40 mg, oral, DAILY, First dose on Wed at 0900, Until Discontinued, STAT perphenazine (TRILAFON) tablet 2 mg 927 (Given - Provider: Dinorah Browning, RHODA) 2 mg, oral, 2 TIMES DAILY, First dose on Wed01/24/18 at 0900, Until Discontinued, STAT ziprasidone (GEODON) capsule 80 mg 926 (Given - Provider: Dinorah Browning, RHODA) 80 mg, oral, DAILY, First dose on Wed at 0900, Until Discontinued, STAT PRN Medication Order 01/22/2018 01/23/2018 01/24/2018 nicotine polacrilex (NICORETTE) gum 4 mg 0047 (Given - Provider: Sebas Funez RN)0950 (Given - Provider: Dinorah Browning RN) 4 mg, oral, PRN, Starting 01/23/18 a t 2355, Until Wed01/24/18 at 1908, Smoking Cessation, STAT documented in this encounter Care Teams Associate Professor Of Kinesiology Relationship Specialty Start Date End Date Sana Muhammad MD PCP - General 12/02/16 08/05/20 documented as of this encounter
--- OUTSIDE RECORDS SUMMARY | 2021-08-16 23:31 | XMS_ITS | Encounter Summary ---
:1990 Author Organization [facility] Address [address] [place] [address] Care Team Providers Name Role Phone Sana Muhammad MD Primary Care Provider Jim Morales MD Primary Care Provider Reason for Visit Reason Comments Other Encounter Details Date Type Department Care Team Description 05/24/2018 Refill [facility] Family Sana Muhammad MD Other Medicine - [address] [address] [place], [place] [id number] [phone] Social History Tobacco Use Types Packs/Day Years [...] making decisions? documented as of this encounter Ordered Prescriptions Prescription Sig Dispensed Refills Start Date End Date ziprasidone (GEODON) 80 take 1 capsule by 60 capsule 0 05/2507/14/2018 mg capsuleIndications: mouth twice a day Paranoid schizophrenia WITH BREAKFAST AND ([facility]) ([facility]) DINNER documented in this encounter Miscellaneous Notes Telephone Encounter - Marilee Holguin, RN - 05/24/2018 3698 EDT Medication(s) Requested: Geodon #[id number] with 1 rf Preferred Pharmacy: [facility] Is patient out of medication? Unknown Last Refill Date: 03/21/18 Last Visit Date with Ordering Provider: 05/23/18 Next Non-Acute Visit Date Scheduled with Care Team: Yes. 06/29/18 MARILEE HOLGUIN RN 05/24/2018 14:48 documented in this encounter Plan of Treatment Not on filedocumented as of this encounter Goals Goal Patient Goal Associated Recent Patient-Stated? 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 documented as of this encounter Additional Health Concerns Infection Onset Date Last Indicated Resolved Time COVID-19 03/07/2021 03/07/2021 03/27/2021 22:15 EST documented as of this encounter Care Teams Software Programmer Relationship Specialty Start Date End Date Sana Muhammad MD PCP - General 12/02/16 08/05/20 Jim Morales MD PCP - General Family Medicine - Primary 08/06/[address] [place] [phone] documented as of this encounter
--- OUTSIDE RECORDS SUMMARY | 2021-08-16 23:31 | XMS_ITS | Encounter Summary ---
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 What goals would you like the patient to patient needs help filling out meet? disability/soc security isabela work. Patient's Weight (kg) (1 lb = 0.4536 kg): 117.9 Patient's Height (cm) (1 in = 2.54 cm): 162.6 Comments As we discussed in your visit today, florencia eone will be contacting you from the Community Health Team to schedule an sharmin ointment with you. If you do not hear from the CHT within a week please call the [facility] Team at [phone]. Reason for Visit Reason Comments Paperwork request MEDICATION CHECK Encounter Details Date Type Department Care Team Description 09/19/2018 Office Visit [facility] Sara Berg Schizot ypal personality ([facility]) (Primary Dx); Family Medicine - MD [place] Depression, unspecified depression type; [place] [address] [facility] Anxiety; [address] [place], [place] Recurrent boils; [place], [place] [phone] Fibromyalgia; [phone] Marijuana use, continuous (Work) Social History Tobacco Use Types Packs/Day Years [...] Sign Reading Time Taken Comments Blood Pressure 122/74 09/19/2018 1507 EDT Pulse 68 09/19/2018 1507 EDT Temperature - - Respiratory Rate - - Oxygen Saturation - - Inhaled Oxygen Concentration - - Weight 117.9 kg (260 lb) 09/19/2018 1507 EDT Height 162.6 cm (5' 4.02) 09/19/2018 1507 EDT Body Mass Index 44.61 09/19/2018 1507 EDT documented in this encounter [...] encounter Patient Instructions Patient InstructionsDorothea Shaver - 09/19/2018 15:00 EDT I have referred you to perinatal social worker for help completing paperwork, so make sure you clal back if you get a call about this or come to the appointment because for your benefits, sounds like you should get this paperwork filled out. Quitting smoking Stopping smoking is the best [...] with a trained counselor. Tobacco Counseling in [facility] offers free counseling services to residents who are ready to cut back or quit using tobacco. Services include: phone coaching (), online tools and support for those who would like to make changes on their own (www.[employer].org), as well as in-person group workshops. Free nicotine replacement therapy is available through all of these resources. To learn more about your options visit www.[employer].org or call 9-867-TPHM-NOW ( ). To speak with an in-person tobacco counselor in [facility] call, [phone]. [facility], please visit: [email or web address] I hope you quit smoking. I think it's the best thing you can do for your health. Please call our office if you have any questions. documented in this encounter Ordered Prescriptions Prescription Sig Dispensed Refills Start Date End Date DULoxetine (CYMBALTA) 30 Take 1 Cap by mouth 30 Cap 2 11/14/2018 mg delayed release daily. capsuleIndications: Depression, unspecified depression type, Anxiety, Fibromyalgia chlorhexidine (HIBICLENS) Wash affected area 4000 mL 2 11/14/2018 4 % liquidIndications: in shower daily Recurrent boils documented in this encounter Progress Notes Sara Berg MD, MD - 09/19/2018 1500 EDT Mary Grace Harris Chief Complaint Patient presents with ??? Paperwork request ??? MEDICATION CHECK SUBJECTIVE 27 y.o. female presents for f/u of mood. Established with psychiatry and counseling via [facility]. She is here for social security disability ppwk; we review and appears to be all ppwk pt should fillout herself,l so I have arranged for social work assistance with this via referral and advise her totake with her. She has constant auditory hallucinations, she has fee fi fo fum and also she notes that people turn and hear her when she has not talked to them, so this freaks her out. She knows that this is mentalillness, but it freaks her out. She says either I am delusional or something is * nuts. She says she has a grandiose personality with hallucinations. She has had these symptoms for years, has not changed. She feels sometimes that other people are hearing things around her and around her thoughts. She also has visual hallucinations. Last hospitalization was [facility] 01/2018. She has seen demon on her computer keyboard. Recommended to stop marijuana , which she uses regularly, she discusses how she doesn't feel marijuana makes her paranoid. I discuss that I dont' recommend her to be on any brain altering substances with her mental health challenges. Denies SI/HI Medicines are not present in her EHR, so not updated. I look back at last note from last psychiatry consult (Dr Duong 04/2018) Though she is not taking any of this now. She feels like she can trust her judgment around not taking all of this. She went off a few months ago. She was established with [facility] at one point but no longer. Current Outpatient Medications: albuterol 90 mcg/actuation inhaler Inhale 2 Puffs as directed every 4 hours. (Patient not taking: Reported on 01/23/2018) benztropine (COGENTIN) 2 mg tablet take 2 tablet by mouth twice a day cyclobenzaprine (FLEXERIL) 10 mg tablet Take 1 Tab by mouth at bedtime. hydrOXYzine (ATARAX) 25 mg tablet Take 1 Tab by mouth 3 times daily as needed for Anxiety. LORazepam (ATIVAN) 1 mg tablet Take 1 Tab by mouth 2 times daily. Daily Max: 2 mg omeprazole (PRILOSEC) 20 mg capsule take 1 capsule by mouth once daily perphenazine (TRILAFON) 2 mg tablet Take 1 Tab by mouth 2 times daily. perphenazine (TRILAFON) 4 mg tablet Take 1 Tab by mouth as needed (can take 1-2 tabs PRN in additionto her 2 mg (maximum 10 mg dose)). sertraline (ZOLOFT) 100 mg tablet take 1.5 tablet by mouth once daily at bedtime UNABLE TO FIND Med Name: Nexplanon implanted 08/13/2016 ziprasidone (GEODON) 60 mg capsule Take 2 Caps by mouth every evening. ziprasidone (GEODON) 80 mg capsule Take 1 Cap by mouth 2 times daily with breakfast and dinner Ativan is the only one she really prefers. She took 1 mg twice per day. Drinking --- 2 drinks every once in a while. Sertraline -gave her a weird psychotic feeling paxil--euphoric feeling Duloxetine is listed in 2011 but unclear why stopped. She feels she wants something for pain that is nota big drug and something to calm her down. Pain is due to cervical ddd /disc protrusion. She also has fibromyalgia. Last worked in 2010. She felt she would pass out. She saw a big light. Then entered abyss of Nothing. pat said I would rather go to hell than be with you. Woke up and a lot of weird things started happening. Cares for her son somewhat. 6 yr old son. No help. Benefits -she can only work 6 hours per month. Problem list, medications, family and social history reviewed and updated if relevant in the electronic health record. REVIEW OF SYSTEMS Patient denies pain, headache, dizziness, chest pain, SOB. Affirms anxiety and depression but negative for suicidal thoughts or actions. OBJECTIVE BP 122/74 Pulse 68 Ht 162.6 cm (64.02) Wt (!) 117.9 kg (260 lb) BMI 44.61 kg/m?? GEN: no distress HEENT: mmm LUNGS: clear HEART: RRR NEURO: no obvious focal deficits PSYCH: Appearance/Behavior: well-groomed, good hygiene, behavior appropriate. Speech: normal rate, rhythm, prosody. Mood: fearful Affect: congruent Thought content: answers questions appropriately Thought process: linear Judgment/Insight: appears intact ASSESSMENT/PLAN Mary Grace was seen today for paperwork request and medication check. 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 At this point she feels she cannot work. She does care for her daughter who is 8 and is main caregiver for her. This is meaningful to her. I dont know her well, haven't worked with her before on mentalhealth, but she does seem as though she has significant mental health burden in terms of illness. I am not sure she could manage work other than very low hours (< 8 per week is what she can work nowand still receive benefits) or volunteering for a sense of meaning. - AMB CONS/FOLLOW UP PSYCH (ADULT PC/FAM MED/OB/NEURO OR EXTERNAL REF)-[facility] Depression, unspecified depression type - AMB CONS/FOLLOW UP COMMUNITY HEALTH TEAM - AMB CONS/FOLLOW UP PSYCH (ADULT PC/FAM MED/OB/NEURO OR EXTERNAL REF) - START DULoxetine (CYMBALTA) 30 mg delayed release capsule; Take 1 Cap by mouth daily for both depression/ anxiety and fibromyalgia pain. She had this prescribed once before but is unclear if she could not afford or insurance didn't cover, as no refill provided. - she has crisis lines and is safe at home currently. Anxiety - AMB CONS/FOLLOW UP COMMUNITY HEALTH TEAM - AMB CONS/FOLLOW UP PSYCH (ADULT PC/FAM MED/OB/NEURO OR EXTERNAL REF) - DULoxetine (CYMBALTA) 30 mg delayed release capsule; Take 1 Cap by mouth daily. Recurrent boils She wants this refilled from past visit seeing Dr H. - chlorhexidine (HIBICLENS) 4 % liquid; Wash affected area in shower daily Fibromyalgia - DULoxetine (CYMBALTA) 30 mg delayed release capsule; Take 1 Cap by mouth daily. Marijuana use, continuous - recommended stopping or tapering down significantly on this as I dont want her on any mind altering substances, and specifically for schizoaffective/schizophrenia this is not recommended. She did notwant to take this advice at this time. Followup: 1-2 mo or prn for mental health and referrals in place as well. Sara Berg MD 09/22/2018 16:38 [id number] documented in this encounter Plan of Treatment Scheduled Referrals Name Type Priority Associated Diagnoses Order S chedule AMB CONS/FOLLOW UP Outpatient Referral Routine Schizotypal Or dered: [facility] personality 09/19/2018 TEAM ([facility]) Depression, unspecified depression type Anxiety AMB CONS/FOLLOW UP Outpatient Referral Routine Schizotypal Or dered: PSYCH (ADULT PC/FAM personality 09/20/19 19 MED/OB/NEURO OR ([facility]) EXTERNAL REF) Depression, unspecified depression type Anxiety documented as of this encounter Goals Goal Patient Goal Associated Recent Patient-Stated? 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 dependence syndrome doxycycline (VIBRA-TABS) Take 1 Tab by mouth 9 09/19/2018 100 mg tabletIndications: 2 times daily. Recurrent boils chlorhexidine (HIBICLENS) Wash affected area Reorder 9 09/19/2018 4 % liquidIndications: in shower daily Recurrent boils documented as of this encounter Care Teams Tooling Manager Relationship Specialty Start Date End Date Sana Muhammad MD PCP - General 12/02/16 08/05/20 documented as of this encounter
--- OUTSIDE RECORDS SUMMARY | 2021-08-16 23:31 | XMS_ITS | Encounter Summary ---
:1990 Author Organization [facility] Address [address] [place] [address] Care Team Providers Name Role Phone Sana Muhammad MD Primary Care Provider Reason for Visit Reason Onset Date Comments Finger Injury 09/12/2018 Encounter Details Date Type Department Care Team Description 09/12/2018 Telephone [facility] Family Sana Muhammad MD Finger Injury Medicine - [address] [phone] [place], [place] [address] [phone] Social History Tobacco Use Types Packs/Day Years [...] this encounter Miscellaneous Notes Telephone Encounter - Jennifer Jama - 09/12/2018 1222 EDT Care and concern call made. Voicemail not set up, unable to leave message. JENNIFER JAMA 09/12/2018 12:23 documented in this encounter Plan of Treatment Not on filedocumented as of this encounter Goals Goal Patient Goal Associated Recent Patient-Stated? 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
--- OUTSIDE RECORDS SUMMARY | 2021-08-16 23:31 | XMS_ITS | Encounter Summary ---
:1990 Author Organization [facility] Address [address] [place] [address] Care Team Providers Name Role Phone Sana Muhammad MD Primary Care Provider Reason for Visit Reason Comments Fever Per pt, fever and abd pain w ith blood in stool for a few weeks, same symptoms as son. Alert, skin warm and dry. Abdominal Pain Cough Encounter Details Date Type Department Care Team Description 06/07/2018 Emergency [facility] Ludwig Mcduffie MD [address] [phone] Generalized abdominal pain (Primary Dx); Emergency Department Sahil Sibley MD [address] [phone] Vomiting and diarrhea; - [facility], MD Chelsy Symptom of blood in stool [address] [place], [place] [phone] Social History Tobacco Use Types Packs/Day Years Used Date Current Every Day Smoker 0.5 10 Smokeless Tobacco: Never Used Alcohol Use Standard Drinks/Week Comments No 0 (1 standard drink = 0.6 oz pure alcoho l) occ Sex Assigned at Date Recorded Not on file documented as of this encounter Last Filed Vital Signs Vital Sign Reading Time Taken Comments Blood Pressure 145/105 06/07/2018 1647 EDT Pulse 100 06/07/2018 1218 EDT Temperature 36.6 ??C (97.9 ??F) 06/07/2018 1218 EDT Respiratory Rate 18 06/07/2018 1647 EDT Oxygen Saturation 99% 06/07/2018 1647 EDT Inhaled Oxygen Concentration - - Weight [...] as of this encounter Discharge Diagnoses Diagnosis R10.84 Generalized abdominal pain-R10.84 [ICD-10-CM] K92.1 Melena-K92.1[ICD-10-CM] R05 Cough-R05[ICD-10-CM] R11.10 Vomiting, unspecified-R11.10[ICD- 10-CM] R19.7 Diarrhea, unspecified-R19.7[ICD-10 -CM] J45.909 Unspecified asthma, uncomplicate d-J45.909[ICD-10-CM] F17.200 Nicotine dependence, unspecified , uncomplicated-F17.200[ICD-10-CM] documented in this encounter Discharge Instructions InstructionsSheeserSahil MD, MD - 06/07/2018 You looks well today, and since her symptoms have improved, we did not send any blood tests. I thinkyou probably had some form of viral gastroenteritis (stomach bug). I think the most benign explanation is that you had enough vomiting and diarrhea that you had a little bleeding associated with these symptoms. There is no evidence of ongoing bleeding. Your pelvic exam was also fairly reassuring. We did send cultures, and so you will be called in the next 24-48 hours if they are abnormal, and required specific treatment. If we do not call you, that suggests that they are normal. If you need to know the answer to the cultures, call your primary care provider. Return to the ED for the following reasons: Abdominal pain that worsens, or is severe or intolerable. Abdominal pain with fever. Abdominal distention (swelling), especially with vomiting. Vomiting with dehydration. Blood in the vomit or in the stool. Black stool. Unexplained light-headedness or passing out. Flank or back pain, especially if severe. Other concerning symptoms. documented in this encounter Medications at Time of Discharge Medication Sig Dispensed Refills Start Date End Date albuterol 90 Inhale 2 Puffs as 3 Inhaler 3 12/02/201607/14 mcg/actuation directed every 4 inhalerIndications: hours. inhale 2 puffs before exercise benztropine (COGENTIN) 2 take 2 tablet by 360 Tab 1 03/2107/14/2018 mg tabletIndications: mouth twice a day Paranoid schizophrenia ([facility]) ([facility]) cyclobenzaprine Take 1 Tab by mouth 30 Tab 5 03/21/2018 07/14/2018 (FLEXERIL) 10 mg tablet at bedtime. hydrOXYzine (ATARAX) 25 Take 1 Tab by mouth 90 Tab 1 07/14/2018 mg tablet 3 times daily as needed for Anxiety. LORazepam (ATIVAN) 1 mg Take 1 Tab by mouth 60 Tab 2 07/14/2018 tabletIndications: 2 times daily. Paranoid schizophrenia Daily Max: 2 mg ([facility]) ([facility]) omeprazole (PRILOSEC) 20 take 1 capsule by 90 Cap 0 03/0807/14/2018 mg capsule mouth once daily perphenazine (TRILAFON) 2 Take 1 Tab by mouth 60 Tab 5 0 03/21/2018 07/14/2018 mg tabletIndications: 2 times daily. Paranoid schizophrenia ([facility]) ([facility]) perphenazine (TRILAFON) 4 Take 1 Tab by mouth 30 Tab 5 0 03/21/2018 07/14/2018 mg tabletIndications: as needed (can take Paranoid schizophrenia 1-2 tabs PRN in ([facility]) ([facility]) addition to her 2 mg (maximum 10 mg dose)). sertraline (ZOLOFT) 100 take 1.5 tablet by 135 Tab 0 03/0807/14/2018 mg tabletIndications: mouth once daily at Paranoid schizophrenia bedtime ([facility]) ([facility]) UNABLE TO FIND Med Name: Nexplanon 0 0 11/14/2018 implanted 08/13/2016 ziprasidone (GEODON) 60 Take 2 Caps by 60 Cap 5 03/21/19 19 07/14/2018 mg capsuleIndications: mouth every Paranoid schizophrenia evening. ([facility]) ([facility]) ziprasidone (GEODON) 80 take 1 capsule by 60 capsule 0 05/2507/14/2018 mg capsuleIndications: mouth twice a day Paranoid schizophrenia WITH BREAKFAST AND ([facility]) ([facility]) DINNER documented as of this encounter Discharge Disposition Disposition Code Departure Means Destination Home or Self Care documented in this encounter ED Notes Jose Pardo RN - 06/07/2018 1659 EDT Patient denies abdominal pain, nausea or vomiting, NAD. Discharge instructions provided and reviewedwith patient, demonstrated understanding and discharged to home/self care. Sahil Gregory MD, MD - 06/07/2018 1444 EDT HPI Mary Grace Harris is a 27 y.o. female with PMH including Celiac disease, schizotypal personality, and anxiety who presents to the ED for a few weeks of subjective fevers, abdominal pain, cough, and blood in her stool. The patient states a few weeks ago, she started noticing some loose stools with small am ounts of red blood. She reports she then had some vomiting and a productive cough with some mucous production. The patient states she suspects she has worms from her cat but has not seen worms in her stool. The patient also states she has had a foul vaginal odor but she denies any vaginal discharge orsores. She denies recent travel. History was provided by: patient, medical records blood splatter analyst was not required. Patient's pertinent PMH, FH, SH were reviewed and updated PRN. ROS A 10-point review of systems was performed. The patient answered negative to all questions with the exceptions of those explicitly detailed as positives in the HPI. Pertinent negatives are also explicitly stated. While she is not having discharge, she does report a foul odor. Does not have any other reason for concern for STD. No fever. No lightheadedness. Physical Exam Vital Signs Temp: 36.6 ??C (97.9 ??F) Temp src: Temporal Pulse: 100 Resp: 15 SpO2: 99 % BP: (!) 173/86 BP Device: BP Machine Patient Position: Sitting O2 Device: None (Room air) Nursing notes and vital signs reviewed. Const: No acute distress. Not ill-appearing. Obese. HENT: Atraumatic. No rhinorrhea, epistaxis. MM moist. Facial symmetry present. Eyes: Pupils are equal, round. Gaze conjugate. No spontaneous nystagmus. No conjunctival injection. No scleral icterus. Neck: Normal range of motion. CardioVasc: Regular rhythm. Normal radial pulse. Murmur: None. Pulm/Chest: No respiratory distress. Effort normal. Breath sounds: Normal Abdominal: Distention: None. Tenderness: None. : Slight white discharge without satellite lesions or erythema. 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 MSK: Normal range of motion grossly. Lower extremity edema: None Neuro: Alert, conversant. No gross cranial nerve deficit. No gross motor deficit. Skin: Warm and dry. No rash, ecchymosis, or erythema noted on visualized skin. Psych: Normal mood and affect. Data Interpretation Lab Results: Results significant for: UA not consistent with UTI. (All pertinent data was reviewed and interpreted by me, contemporaneously with patient care.) Procedures Procedures ED Course A medical screening exam was performed. This patient is well-appearing. She has no ongoing bleeding. I suspect based on her symptoms that she and her son of had some sort of gastroenteritis, and perhaps that she has been bleeding because she has been wiping more. While she does not feel like she has any bleeding now and does not think that digital rectal exam isindicated, she would like a pelvic exam to investigate for vaginitis or STD. External genitalia are normal. There is no active discharge. No vesicles or lesions. There is a clear discharge in the posterior fornix with no obvious malodor. Samples/swabs sent. Given explicit return precautions regarding bleeding, abdominal pain, signs of systemic illness. The patient was discharged to home with instructions to follow up with her PCP as needed. Assessment of Pain at Time of Disposition:0 on a zero to ten scale. Any further pain treatment will be at the discretion of the provider following up with the patient based on their clinical assessment. Condition at departure from the Emergency Department: Improved Impression Final diagnoses: Generalized abdominal pain Vomiting and diarrhea Symptom of blood in stool Disposition Discharged Explicit return precautions/ contingency plans discussed. Medical Decision Making This patient received an evaluation and medical screening exam for emergent medical conditions at the [facility] on 06/07/2018 Diagnosis and management comments/ E&M Level: ?? 4 ?? Other: Data Review: I, Sahil Sibley MD, have independently provided care, reviewed data, and visualized images, tracings, and/or other specimens, as documented above. Scribe attestation: This documentation is recorded by Mildred Metzger acting as Scribe under the direction and presence of Sahil Sibley MD. Sahil Sibley MD: I personally performed the services recorded by the scribe in my presence.I confirm the scribe's documentation has been reviewed by me to accurately and completely record my work, treatment, procedures, and medical decision making. Loretta Coombs RN - 06/07/2018 1217 EDT Chief Complaint Patient presents with ??? Fever Per pt, fever and abd pain with blood in stool for a few weeks, same symptoms as son. Alert, skin warm and dry. ??? Abdominal Pain ??? Cough documented in this encounter Plan of Treatment Not on filedocumented as of this encounter Goals Goal Patient Goal Associated Recent Patient-Stated? 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 STAT 06/07/2018 21:25 Results for this GONORRHOEAE AMPLIFIED EDT proced ure are in RNA the results section. ZZVAGINITIS EXAM Routine 06/07/2018 21:25 Results for this EDT procedure are i n the results section. POCT URINE DIPSTICK, STAT 06/07/2018 15:04 Res ults for this CLINITEK EDT procedure are i n the results section. documented in this encounter Results CHLAMYDIA/N. GONORRHOEAE AMPLIFIED RNA (06/07/2018 21:25 EDT) Pathologist Sig nature Chlamydia Result Negative [facility] GC Result Negative [facility] Specimen Other (qualifier value) - Vagina Performing Organization Address [facility]/ZIP Code Phon e Number [facility] [address] [place] [address] SERVICES VAGINITIS EXAM (06/07/2018 21:25 EDT) Gram Smear Result No yeast seen. [facility] Gram Smear Result Unable to rule out [facility] the presence of LABORATORY bacterial vaginosis. SERVICES Result No Trichomonas [facility] antigen detected. LABORATORY SERVICES Specimen Other (qualifier value) - Vagina Performing Organization Address City/[facility]/ZIP Code Phon e Number [facility] [address] [place] [address] SERVICES (ABNORMAL) POCT URINE DIPSTICK, CLINITEK (06/07/2018 15:04 EDT) Color YELLOW Yellow [facility] Clarity, UA Clear Clear [facility] Glucose Neg [facility] Bilirubin 1+ (A) [facility] SERVICES Ketones Trace (A) [facility] SERVICES Specific [place] 1.015 1.001 - 1.035 [facility] Blood Trace (A) [facility] SERVICES pH 7.0 4.6 - 8.0 [facility] Protein Trace (A) [facility] SERVICES Urobilinogen 0.2 0.2 - 1.0 [facility] mg/dL LABORATORY SERVICES Nitrite Neg [facility] SERVICES Leuk Esterase Trace (A) [facility]ORATORY fuel cell builder ID [id number]: [facility] Test performed at LABORATORY Emergency SERVICES Department Specimen Urine (substance) - Urine Performing Organization Address City/[facility]/ZIP Code Phon e Number [facility] [address] [place] [address] SERVICES documented in this encounter Visit Diagnoses Diagnosis Generalized abdominal pain - Primary Abdominal pain, generalized Vomiting and diarrhea Vomiting alone Symptom of blood in stool documented in this encounter Administered Medications Inactive Administered Medications - up to 3 most recent administrations Medication Order MAR Action Action Date Dose Rate Site ondansetron (ZOFRAN-ODT) Given 06/07/2018 15:11 EDT 4 mg disintegrating tablet 4 mg 4 mg, oral, NOW X1, 1 dose, On e 06/07/18 at 1500, STAT documented in this encounter Active and Recently Administered Medications Times are shown in EDT. Scheduled Medication Order 06/05/2018 06/06/2018 06/07/2018 ondansetron (ZOFRAN-ODT) disintegrating tablet 4 mg (COMPLETED) 1511 (Given - Provider: Jose Pardo RN) 4 mg, oral, NOW X1, 1 dose, Wed06/07/18 at 1500, STAT documented in this encounter Orders Medications Ordered That Might Not Have Count Last Ord ered Date First Ordered Date Been Administered ondansetron (ZOFRAN-ODT) disintegrating 1 06/08/19 19 tablet 4 mg documented in this encounter Care Teams Evaluator Relationship Specialty Start Date End Date Sana Muhammad MD PCP - General 12/02/16 08/05/20 documented as of this encounter
--- OUTSIDE RECORDS SUMMARY | 2021-08-16 23:31 | XMS_ITS | Encounter Summary ---
:1990 Author Organization [facility] Address [address] [place] [address] Care Team Providers Name Role Phone Sana Muhammad MD Primary Care Provider Reason for Visit Reason Onset Date Comments Coordination Of Care 11/14/2018 Encounter Details Date Type Department Care Team Description 11/14/2018 Telephone [facility] Sana Muhammad, Co ordination Of Care Family Medicine - [address] [phone] (Wo rk) Social History Tobacco Use Types Packs/Day Years Used Date Current Every Day Smoker 0.5 10 Smokeless Tobacco: Never Used Alcohol Use Standard Drinks/Week Comments Yes 3 (1 standard drink = 0.6 oz pure alcoho l) occ Sex Assigned at Date Recorded Not on file documented as of this encounter Functional Status Functional Status Response Date of Assessment Do you have serious difficulty walking or climbing No 11/06/2018 stairs? (5 years old or older) Do you have difficulty dressing or bathing? (5 years old No 11/06/2018 or older) Because of a physical, mental, or emotional condition, do No 11/06/2018 you have difficulty doing errands alone such as visiting a doctor's office or shopping? (15 years old or older) Cognitive Status Response Date of Assessment Because of a physical, mental, or emotional condition, do No 11/06/2018 you have serious difficulty concentrating, remembering, or making decisions? (5 years old or older) documented as of this encounter Miscellaneous Notes Telephone Encounter - Grace Nunez, RHODA - 11/14/2018 1738 EDT Pt discharging AMA. Leaving tonight. Inga looking to get pt scheduled for f/u. No obvious openings with pt PCP. Scheduled with Bailey Garrido 11/16 @ 12 in [place] [facility]ODA NUNEZ elephone Encounter - Karishma White - 11/14/2018 1731 EDT Reason for Call: Coordination Of Care Summary/Symptoms: per Inga from [facility] 6 need to talk to nurse about patient discharging AMA. Onset and Duration? Current Appointment Offered? no Karishma White 11/14/2018 17:33 documented in this encounter Plan of Treatment Not on filedocumented as of this encounter Goals Goal Patient Goal Associated Recent Patient-Stated? 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
--- OUTSIDE RECORDS SUMMARY | 2021-08-16 23:31 | XMS_ITS | Encounter Summary ---
:1990 Author Organization [facility] Address [address] [place] [address] Care Team Providers Name Role Phone Sana Muhammad MD Primary Care Provider Encounter Details Date Type Department Care Team Description 06/07/2018 Travel Social History Tobacco Use Types Packs/Day [...] making decisions? documented as of this encounter Plan of Treatment Not on filedocumented as of this encounter Goals Goal Patient Goal Associated Recent Patient-Stated? 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[place], dependence Vania syndrome documented as of this encounter Visit Diagnoses Not on filedocumented in this encounter Care Teams City Solicitor Relationship Specialty Start Date End Date Sana Muhammad MD PCP - General 12/02/16 08/05/20 documented as of this encounter
--- OUTSIDE RECORDS SUMMARY | 2021-08-16 23:31 | XMS_ITS | Encounter Summary ---
:1990 Author Organization [facility] Address [address] [place] [address] Care Team Providers Name Role Phone Sana Muhammad MD Primary Care Provider Reason for Visit Reason Onset Date Comments Appointment Related 07/18/2018 Encounter Details Date Type Department Care Team Description 07/18/2018 Telephone [facility] Sana Muhammad Ap pointment Related Family Medicine - [address] [phone] [place], [place] [id number] [phone] Social History Tobacco Use Types Packs/Day Years [...] Notes Telephone Encounter - Celine Kohler - 07/19/2018 0903 EDT Attempted to reach patient, immediately get a message stating patient does not have a voice mail that is set up. elephone Encounter - Doug Rojo - 07/18/2018 1151 EDT Attempted to reach patient. No answer/no voicemail box set-up. Needs appt with Dr Muhammad. Telephone Encounter - Doug Rojo - 07/18/2018 1151 EDT ----- Message from Yamileth Hui MD sent at 07/14/2018 18:19 EDT ----- Will you call this pt and see if she will come back to see her PCP Dr. Muhammad to discuss the medications she recently discontinued? Pt had said she was medically supervised in discontinuing them, but PCP was not aware she is off them. Also to discuss contraception options? Thanks! Yamileth Hui MD documented in this encounter Plan [...] more about your health please v isit: [email or web address]/medcenter/Pages/Wellness-Resources/Ixwvyagka-Cnnxsp-Hx documented as of this encounter Visit Diagnoses Not on filedocumented in this encounter Care Teams Farm Management Agent Relationship Specialty Start Date End Date Sana Muhammad MD PCP - General 12/02/16 08/05/20 documented as of this encounter
--- OUTSIDE RECORDS SUMMARY | 2021-08-16 23:31 | XMS_ITS | Encounter Summary ---
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 is a 28 y.o. female, obese, blonde-pink hair. Her behavior was calm, polite, and cooperative. She does not appear in distress. No psychomotor disturbances or abnormal/involuntary movements. Speech is unremarkable for rate, rhythm, tone, or volume. Expressive language, Receptive language, and Pragmatic Language intact. Stated mood is I feel really good and affect is full range and well-modulated. Thought process is linear with tight associations. Minimal bizarre thought content, mentioning seeing u's, like humans. No SI. No HI. Patient is alert and oriented x 4. Patient displaysintact memory (Cognition). Insight is good with patient recognizing she needs to stay away from marijuana use. She is taking medications voluntarily (Judgement). Physical Exam: BP 119/80 (BP Cuff Location: Left arm, Patient Position: Sitting) Pulse 102 Temp 36.9 ??C (98.4 ??F) Resp 14 Ht 162.6 cm (64) Wt (!) 112.4 kg (247 lb 12.8 oz) SpO2 93% BMI 42.53 kg/m?? Data Review: Labs: No results found for this or any previous visit (from the past 24 hour(s)). Prolactin: 125.5 ng/ml (: 9.7-208.5) Assessment/Formulation: Mary Grace Harris is a 28 y.o. 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 She was readmitted to [place] [id number] on an involuntary basis due to her disorganization and lack ofcapacity to consent to voluntary admission. Since admission she has reconstituted rather rapidly with risperidone 2 mg twice daily. She was started on risperidone after a cross titration from ziprasidone during her previous inpatient stay the prior week. She began to experience with an elevated proloactin level. This was likely a sideeffect of risperidone. We started Cariprazine 1.5 mg daily (11/21) with cessation of risperidone at that time. We are titrating cariprazine and have increased to 4.5 mg. [place] was added 11/25. Mary Grace appears to be improving in terms of her thought content and future- oriented thinking. Plan for discharge tomorrow pending clinical course. Mary Grace Harris meets criteria for acute level of care. Diagnostic Impression w/ Differential Diagnosis Psychiatric Diagnoses (including Personality Traits/Disorders): Unspecified psychosis, unspecified anxiety Other Medical Conditions: Chronic pain, celiac disease, GERD, tobacco dependence Plan: #Unspecified psychosis: ???d/c'd Risperidone 2 mg twice daily ???Continue Cariprazine to 4.5 mg --[place] trough level low (0.4) --Increase [place] to 1500 mg daily with dinner ???Continue melatonin 5 mg qhs prn ???Ativan 1 mg every 4 hours as needed #Chronic pain: - Tylenol 1000 mg TID - Ibuprofen 200 mg TID prn - Ice packs and heat packs prn - Updated PCP Dr. Muhammad - TENS unit on constant observation prn per physical therapy - TUCKS prn and anusol-HC suppository bid prn for hemorrhoids #Tobacco use disorder: ???Nicotine inhaler as needed Discharge Plan: Discharge planning per multidisciplinary team rounds. Yamileth Rojas MD, MBE PGY2 - Neurology Pager: [phone] ([phone] nights and weekends) Associated attestation - Lyndsey Carter - 12/02/2018 0803 EDT Attending Attestation: I saw and evaluated the patient on 11/29/2018. Treatment plan reviewed with the patient and team. I agree with (and have edited in italics) the findings and plan of care as documented in the resident/PA's note. Lyndsey Carter MD Attending Psychiatrist Pager [phone] Inga Hernandez MSW - 11/28/2018 5200 EDT Social Work Progress Note Intervention/Service: Community referral, Coordination of care, Discharge planning and On-going assessment Team meeting with Mary Grace, her brother Maddy, this underwriter (BENNY) and Dr. Carter. Mary Grace shares that she feels she is doing good. Has questions about her medication which were addressed by Dr. Carter. Will get a blood draw for the lithium tomorrow. Tentative discharge of Wednesday or this week. Maddy agreed that today Mary Grace seemed to be doing good but that he was worried about herleaving and re-engaging in substance and not engaging with referrals made. We discussed [facility] servicesagain as well as the [facility] for step down and the [facility] program at [facility]. Mary Grace is interested in the [facility] program and a referral was made. She is open to seeing if a bed is available at [facility] but does want to be able to return to her home. Called and LVM for [facility] to check on bed availability. Yamileth Pelletier MD - 11/28/2018 0816 EDT Inpatient Psychiatry Daily Progress Note Date of Service: 11/28/2018 Admit Date: 11/15/2018 Hospital day: LOS: 13 days Legal Status: Legal status: Involuntary Observation Level: Observation / visual check: Constant (direct) Locus/Risk of Harm: Current locus of harm: 4 Reason for Admission/Chief Complaint: I want a complete soul Clinical Update/24-hour Events: I met with Mary Grace this morning. She was reading the magazine [employer] etc. She says her uncle has been looking into options for where Mary Grace can move after she leaves the hospital. She agrees it would be helpful to discuss this with social work. She says she has a hemorrhoid from constipation and spent all day yesterday trying to go to the bathroom. She has been sleeping in the quiet room. She has not slept well and would like to discuss medications to help her sleep during PCR this afternoon. Her grandmother and brother arrived while we were talking. Her brother is planning on attending PCR. Medications: Current Facility-Administered Medications: acetaminophen (TYLENOL) tablet 1,000 mg oral 3 times per day aluminum & magnesium hydroxide-simethicone (MYLANTA-DS) 400-400-40 mg/5 mL suspension 30 mL [id number] PRN bisacodyl (DULCOLAX) suppository 10 mg rectal Daily PRN calcium carbonate (TUMS) 200 mg calcium (500 mg) per chewable tablet tablet,chewable 1-2 Tab oral QID PRN cariprazine (VRAYLAR) capsule 4.5 mg oral DAILY docusate sodium (COLACE) capsule 100 mg oral BID ibuprofen (MOTRIN) tablet 200 mg oral TID PRN lithium (ESKALITH) SR tablet 900 mg oral DAILY WITH DINNER LORazepam (ATIVAN) tablet 1 mg oral Q4H PRN magnesium hydroxide (MILK OF MAGNESIA) 400 mg/5 mL suspension 30 mL oral Daily PRN melatonin tablet 3 mg oral AT BEDTIME PRN Multivitamins with Minerals tablet 1 Tab oral DAILY nicotine (NICOTROL) 10 mg inhaler 1 Inhaler inhalation Q2H PRN nicotine inhaler (delivery device) inhalation PRN senna (SENOKOT) tablet 2 Tab oral BID Review of Systems: - Constipated - Poor sleep Mental Status Exam: Mary Grace Harris is a 28 y.o. female, obese, blonde-pink hair. Her behavior was calm, polite, and cooperative. She does not appear in distress. No psychomotor disturbances or abnormal/involuntary movements. Speech is unremarkable for rate, rhythm, tone, or volume. Expressive language, Receptive language, and Pragmatic Language intact. Stated mood is okay and affect is full range and well-modulated.Thought process is linear with tight associations. No bizarre thought content. No SI. No HI. Patientis alert and oriented x 4. Patient displays intact memory (Cognition). Clearly states she has a psychotic disorder (Insight). She is taking medications voluntarily (Judgement). Physical Exam: BP 117/79 (BP Cuff Location: Left arm, Patient Position: Sitting) Pulse 91 Temp 36.7 ??C (98.1 ??F) (Temporal) Resp 16 Ht 162.6 cm (64) Wt (!) 111.6 kg (246 lb) SpO2 100% BMI 42.23 kg/m?? Data Review: Labs: No results found for this or any previous visit (from the past 24 hour(s)). Prolactin: 125.5 ng/ml (: 9.7-208.5) Assessment/Formulation: Mary Grace Harris is a 28 y.o. 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 She was readmitted to [place] [id number] on an involuntary basis due to her disorganization and lack ofcapacity to consent to voluntary admission. Since admission she has reconstituted rather rapidly with risperidone 2 mg twice daily. She continues to express experiencing odd phenomenon such as seeing auras and having spirit babies, which may be more consistent with overvalued ideas and personality structure than active psychosis. She was started on risperidone after a cross titration from ziprasidone during her previous inpatient stay the prior week. She began to experience with an elevated proloactin level. This was likely a side effect of risperidone. We started Cariprazine 1.5 mg daily (11/21) with cessation of risperidone at that time. We are titrating cariprazine and have increased to 4.5 mg. [place] was added 11/25. Mary Grace Harris meets criteria for acute level of care. Diagnostic Impression w/ Differential Diagnosis Psychiatric Diagnoses (including Personality Traits/Disorders): Unspecified psychosis, unspecified anxiety Other Medical Conditions: Chronic pain, celiac disease, GERD, tobacco dependence Plan: #Unspecified psychosis: ???d/c'd Risperidone 2 mg twice daily ???Continue Cariprazine to 4.5 mg --[place] 900 mg daily with dinner ???Increase melatonin to 5 mg nightly ???Hydroxyzine 25 mg every 4 hours as needed #Chronic pain: - Tylenol 1000 mg TID - Ibuprofen 200 mg TID prn - Ice packs and heat packs prn - Updated PCP Dr. Muhammad - TENS unit on constant observation prn per physical therapy - TUCKS prn and anusol-HC suppository bid prn for hemorrhoids #Tobacco use disorder: ???Nicotine inhaler as needed Discharge Plan: Discharge planning per multidisciplinary team rounds. Yamileth Rojas MD, MBE PGY2 - Neurology Pager: [phone] ([phone] nights and weekends) Associated attestation - Lyndsey Carter - 11/29/2018 0831 EDT Attending Attestation: I saw and evaluated the patient on . Treatment plan reviewed with the patient and team. I agree with (and have edited in italics) the findings and plan of care as documented in the resident/PA's note. Calmer, focused on the [id number] with no spontaneous talk of supernatural concerns. Adherent withcariprazine and lithium. Focused on short-term anxiolysis and something for sleep but redirectable. Brother and patient are agreeable to a Wednesday discharge pending ongoing positive trajectory. [place] trough tomorrow night. Lyndsey Carter MD Attending Psychiatrist Pager [phone] Laura Moya, Hieu - 11/27/2018 5690 EDT 11/27/2018 ATTENDING NOTE HISTORY: 24 hr events were reviewed and patient's case was discussed in interdisciplinary team rounds. Mary Grace has been told she can't spend all of her time in the quiet room. She accepted this limit-setting. She is taking ativan every 4 hours. She is not sleeping. She slept 1 hour last night. She has been attending to her ADLs. She has been in good behavioral control. Patient Vitals for the past 24 hrs: BP Temp Temp src Pulse Resp SpO2 11/26/18 1050 121/76 37.3 ??C (99.1 ??F) Temporal 98 16 97 % Patient Vitals for the past 24 hrs: BP Temp Temp src Pulse Resp SpO2 11/27/18 0834 117/79 36.7 ??C (98.1 ??F) Temporal 91 16 100 % MEDICATIONS: Current Facility-Administered Medications: acetaminophen (TYLENOL) tablet 1,000 mg oral 3 times per day aluminum & magnesium hydroxide-simethicone (MYLANTA-DS) 400-400-40 mg/5 mL suspension 30 mL [id number] PRN calcium carbonate (TUMS) 200 mg calcium (500 mg) per chewable tablet tablet,chewable 1-2 Tab oral QID PRN cariprazine (VRAYLAR) capsule 4.5 mg oral DAILY docusate sodium (COLACE) capsule 100 mg oral Daily PRN ibuprofen (MOTRIN) tablet 200 mg oral TID PRN lithium (ESKALITH) SR tablet 900 mg oral DAILY WITH DINNER LORazepam (ATIVAN) tablet 1 mg oral Q4H PRN magnesium hydroxide (MILK OF MAGNESIA) 400 mg/5 mL suspension 30 mL oral Daily PRN melatonin tablet 3 mg oral AT BEDTIME PRN Multivitamins with Minerals tablet 1 Tab oral DAILY nicotine (NICOTROL) 10 mg inhaler 1 Inhaler inhalation Q2H PRN nicotine inhaler (delivery device) inhalation PRN senna (SENOKOT) tablet 1 Tab oral Daily PRN ASSESSMENT: Mary Grace requested to meet with the underwriter in the conference room. She did not sit down during the 15-20 minute meeting. She discussed her hopes and plans following discharge, including her plan to stay in a long term, to continue to collect SSI, and the strategies she will use to make the group homefeel safe and comfortable for her. She reported her use of essential oils and aroma therapy is very important and soothing for her. She also emphasized the importance of feeling independent and normal. At times she became tearful and associated this negative affect with the thought that she is so ill she needs to be in a long term. Mary Grace expressed interest in discussing her discharge medications with her treatment team and was particularly concerned with her pain management. Mary Grace's thoughtprocess was remarkably linear and free from delusional content. She made intense eye contact but wasotherwise appropriate. Her thoughts and concerns were reality based. She reported discomfort and pain from a large hemorrhoid and requested assistance with this issue. The on-call resident was informedand updated the patient's orders for laxatives and the patient was provided with a topical treatmentby her nurse for discomfort. 1. Psychosis, unspecified psychosis type ([facility]) PLAN: Continue plan per primary team Attending Attestation: I saw and evaluated the patient today. Treatment plan reviewed with the patient and team. Laura Moya PsyD. Licensed Psychologist - Doctorate Pager [phone] Laura Moya PsyD - 11/26/2018 0748 EDT 11/26/2018 ATTENDING NOTE HISTORY: 24 hr events were reviewed and patient's case was discussed in interdisciplinary team rounds. Mary Grace allowed her vitals to be taken yesterday: her BP was 139/86 and she was thachycardic at 97. She remains delusional. She had a visit with her grandmother yesterday. She spent the night in the quiet room. She reports AVH. She requested to see the jennie last night. She requested to be euthanized. She received melatonin and ativan to help with sleep with little effect. She slept 2.25 hours overnight. MEDICATIONS: Current Facility-Administered Medications: acetaminophen (TYLENOL) tablet 1,000 mg oral 3 times per day aluminum & magnesium hydroxide-simethicone (MYLANTA-DS) 400-400-40 mg/5 mL suspension 30 mL [id number] PRN calcium carbonate (TUMS) 200 mg calcium (500 mg) per chewable tablet tablet,chewable 1-2 Tab oral QID PRN cariprazine (VRAYLAR) capsule 4.5 mg oral DAILY docusate sodium (COLACE) capsule 100 mg oral Daily PRN ibuprofen (MOTRIN) tablet 200 mg oral TID PRN lithium (ESKALITH) SR tablet 900 mg oral DAILY WITH DINNER LORazepam (ATIVAN) tablet 1 mg oral Q4H PRN magnesium hydroxide (MILK OF MAGNESIA) 400 mg/5 mL suspension 30 mL oral Daily PRN melatonin tablet 3 mg oral AT BEDTIME PRN Multivitamins with Minerals tablet 1 Tab oral DAILY nicotine (NICOTROL) 10 mg inhaler 1 Inhaler inhalation Q2H PRN nicotine inhaler (delivery device) inhalation PRN senna (SENOKOT) tablet 1 Tab oral Daily PRN ASSESSMENT: Mary Grace was calm, cooperative, and polite upon interaction. She reported feeling tired, manicy, and restless. She discussed her odd perceptual experiences over the past 24 hours including seeing blackbirds fly into her head, becoming possessed by the spirit of a stink bug which caused her to feel emptiness inside, and seeing a reddish looking man-ghost. She described these experiences as upsetting and frightening. She reported she has been experiencing these types of phenomena for years, but ishopeful medication will help to reduce their intensity. Mary Grace made intense eye contact. She was appropriately dressed with dramatic application of make-up. Her speech was WNL in terms of rate, tone,and volume. Her thought process was fairly linear, despite the odd content indicated above. 1. Psychosis, unspecified psychosis type ([facility]) PLAN: Continue plan per primary team Attending Attestation: I saw and evaluated the patient today. Treatment plan reviewed with the patient and team. Laura Moya PsyD. Licensed Psychologist - Doctorate Pager [phone] Inga Hernandez MSW - 11/25/2018 1379 EDT Social Work Progress Note Intervention/Service: Coordination of care and On-going assessment Met with Mary Grace this morning on the porch. She shared that she was very tired because she hasn't slept in 16 days. Expressed difficulty sleeping in her current room because she believes another patient is entering my thoughts and body. She endorsed feeling like I don't know what normal is anymore. When asked what normal meant to her, Mary Grace described normal as having a full soul, like with all the souls of the world inside you. We discussed her housing situation. She states she wants to move because she doesn't like some of her neighbours. Discussed that the best option will be to work with [facility] case management regarding this after she discharges as it is not possible for [facility] to find her a new apartment. Spoke with Sp at [facility] regarding [facility] referral. Mandy Li and Sandra Mcgee will come do an intake on Dec 08 at 9:30am. Yamileth Pelletier MD - 11/25/2018 0856 EDT Inpatient Psychiatry Daily Progress Note Date of Service: 11/25/2018 Admit Date: 11/15/2018 Hospital day: LOS: 10 days Legal Status: Legal status: Involuntary Observation Level: Observation / visual check: Q 15 minutes (frequent) Locus/Risk of Harm: Current locus of harm: 4 Reason for Admission/Chief Complaint: I want a complete soul Clinical Update/24-hour Events: Mary Grace received an additional 1.5 mg Vraylar for worsening symptoms of paranoia and difficulty sleeping. Per nursing, she slept a total of 2.5 hours overnight and 4.25 in the past 24 hours. I met with Mary Grace this morning when her grandmother and family friend were visiting. Her eye makeup was smeared and it appeared she may have been crying. She denied any abdominal pain or stomach upset this morning. Tums helped with indigestion. Medications: Current Facility-Administered Medications: acetaminophen (TYLENOL) tablet 650 mg oral 3 times per day aluminum & magnesium hydroxide-simethicone (MYLANTA-DS) 400-400-40 mg/5 mL suspension 30 mL [id number] PRN calcium carbonate (TUMS) 200 mg calcium (500 mg) per chewable tablet tablet,chewable 1-2 Tab oral QID PRN cariprazine (VRAYLAR) capsule 4.5 mg oral DAILY docusate sodium (COLACE) capsule 100 mg oral Daily PRN hydrOXYzine (ATARAX) tablet 25 mg oral Q4H PRN ibuprofen (MOTRIN) tablet 600 mg oral 3 times per day magnesium hydroxide (MILK OF MAGNESIA) 400 mg/5 mL suspension 30 mL oral Daily PRN melatonin tablet 3 mg oral AT BEDTIME PRN Multivitamins with Minerals tablet 1 Tab oral DAILY nicotine (NICOTROL) 10 mg inhaler 1 Inhaler inhalation Q2H PRN nicotine inhaler (delivery device) inhalation PRN senna (SENOKOT) tablet 1 Tab oral Daily PRN traMADol (ULTRAM) tablet 25 mg oral ONCE Review of Systems: - Constipated - Poor sleep Mental Status Exam: Mary Grace Harris is a 28 y.o. female, obese, pink hair, eye makeup smeared. Her behavior was calm, polite, and cooperative. She does not appear in distress. No psychomotor disturbances or abnormal/involuntary movements. Speech is unremarkable for rate, rhythm, tone, or volume. Expressive language, Receptive language, and Pragmatic Language intact. Stated mood is okay and affect is full range and well-modulated. Thought process is linear with tight associations. No bizarre thought content. No SI. No HI. Patient is alert and oriented x 4. Patient displays intact memory (Cognition). Clearly states she has a psychotic disorder (Insight). She is taking medications voluntarily (Judgement). Physical Exam: BP 139/86 (BP Cuff Location: Left arm, Patient Position: Sitting) Pulse 91 Temp 35.9 ??C (96.6 ??F) (Temporal) Resp 16 Ht 162.6 cm (64) Wt (!) 111.6 kg (246 lb) SpO2 97% BMI 42.23 kg/m?? Data Review: Labs: No results found for this or any previous visit (from the past 24 hour(s)). Prolactin: 125.5 ng/ml (: 9.7-208.5) Other studies: Brief psychiatric rating scale: score of 4 or higher indicates moderate severity. Total score on 11/11/18 was 38. 1. Somatic concern: 4 2. Anxiety: 1 3. Emotional withdrawal: 1 4. Conceptual disorganization: 3 5. Guilt feelings: 1 6. Tension: 1 7. Mannerisms and posturin 8. Grandiosity: 4 9. Depressive mood: 2 10. Hostility: 1 11. Suspiciousness: 4 12. Hallucinatory behavior: 5 13. Motor retardation: 2 14. Uncooperativeness: 1 15. Unusual thought content: 5 16. Blunted affect: 3 17. Excitement: 2 18. Disorientation: 1 Total: 42 Young Kaya Rating Scale: 13 (scored for sleep, language/thought disorder, thought content, appearance, insight) Assessment/Formulation: Mary Grace Harris is a 28 y.o. 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 She was readmitted to [place] [id number] on an involuntary basis due to her disorganization and lack ofcapacity to consent to voluntary admission. Since admission she has reconstituted rather rapidly with risperidone 2 mg twice daily. She continues to express experiencing odd phenomenon such as seeing auras and having spirit babies, which may be more consistent with overvalued ideas and personality structure than active psychosis. She was started on risperidone after a cross titration from ziprasidone during her previous inpatient stay the prior week. She began to experience with an elevated proloactin level. This was likely a side effect of risperidone. We started Cariprazine 1.5 mg daily (11/21) with cessation of risperidone at that time. We are titrating cariprazine and have increased to 4.5 mg. Plan for the addition of lithium tonight 11/25. Mary Grace Harris meets criteria for acute level of care. Diagnostic Impression w/ Differential Diagnosis Psychiatric Diagnoses (including Personality Traits/Disorders): Unspecified psychosis, unspecified anxiety Other Medical Conditions: Chronic pain, celiac disease, GERD, tobacco dependence Plan: #Unspecified psychosis: ???d/c'd Risperidone 2 mg twice daily ???Continue Cariprazine to 4.5 mg --Start lithium 900 mg daily with dinner; will check baseline CBC w/ diff, TSH, and calcium ???Melatonin 3 mg nightly ???Hydroxyzine 25 mg every 4 hours as needed #Vaginal discharge: Resolved. ???Gynecology consulted ???Vaginitis exam negative ???Chlamydia/N.Gonorrhoeae negative - STI panel negative - D/c'd bactrim (urine culture neg) #Chronic pain: - Tylenol 1000 mg TID - Ibuprofen 200 mg TID prn - Ice packs and heat packs prn - Updated PCP Dr. Muhammad - Physical therapy consulted - PT recommending TENS unit, patient may use while on constant observation ?? #Tobacco use disorder: ???Nicotine inhaler as needed Discharge Plan: Discharge planning per multidisciplinary team rounds. Yamileth Rojas MD, MBE PGY2 - Neurology Pager: [phone] ([phone] nights and weekends) Associated attestation - Lyndsey Carter - 11/29/2018 0813 EDT Attending Attestation: I saw and evaluated the patient on 11/25/2018. Treatment plan reviewed with the patient and team. I agree with (and have edited in italics) the findings and plan of care as documented in the resident/PA's note. Lyndsey Carter MD Attending Psychiatrist Pager [phone] Yamileth Rojas MD - 11/24/2018 0841 EDT Inpatient Psychiatry Daily Progress Note Date of Service: 11/24/2018 Admit Date: 11/15/2018 Hospital day: LOS: 9 days Legal Status: Legal status: Involuntary Observation Level: Observation / visual check: Q 15 minutes (frequent) Locus/Risk of Harm: Current locus of harm: 4 Reason for Admission/Chief Complaint: I want a complete soul Clinical Update/24-hour Events: I visited with Mary Grace this morning following comments made to her nurses about SI and feeling unsafe. Mary Grace answered yes to feeling unsafe, but would not elaborate for me. She denied thoughts of self harm. She did ask why she is being kept here against her will and I explained that we're working to find the most helpful treatment plan for her. I let her know that we were planning to increase her cariprazine. She was agreeable to this change. She says the TENS unit seemed to help with pain yesterday. I met briefly with Mary Grace later in the afternoon along with Dr. Carter and Cuco (MS3). Mary Grace was not feeling well and thinks she may have eaten bad ketchup this morning. She feels constipated. Her last bowel movement was yesterday. She would like to try prune juice for her constipation. She endorsed abdominal pain, her regular back pain, and possible heart burn. We recommended laying down and planned on meeting with her tomorrow. Medications: Current Facility-Administered Medications: acetaminophen (TYLENOL) tablet 650 mg oral 3 times per day aluminum & magnesium hydroxide-simethicone (MYLANTA-DS) 400-400-40 mg/5 mL suspension 30 mL [id number] PRN cariprazine capsule 3 mg oral DAILY docusate sodium (COLACE) capsule 100 mg oral Daily PRN hydrOXYzine (ATARAX) tablet 25 mg oral Q4H PRN ibuprofen (MOTRIN) tablet 600 mg oral 3 times per day magnesium hydroxide (MILK OF MAGNESIA) 400 mg/5 mL suspension 30 mL oral Daily PRN melatonin tablet 3 mg oral AT BEDTIME PRN Multivitamins with Minerals tablet 1 Tab oral DAILY nicotine (NICOTROL) 10 mg inhaler 1 Inhaler inhalation Q2H PRN nicotine inhaler (delivery device) inhalation PRN senna (SENOKOT) tablet 1 Tab oral Daily PRN traMADol (ULTRAM) tablet 25 mg oral ONCE Review of Systems: - Constipated, abdominal pain - Back pain - Poor sleep Mental Status Exam: Mary Grace Harris is a 28 y.o. female, obese, pink hair. Her behavior was calm, polite, and cooperative. She appears in mild distress. No psychomotor disturbances or abnormal/involuntary movements. Speech is unremarkable for rate, rhythm, tone, or volume. Expressive language, Receptive language, and Pragmatic Language intact. Stated mood is terrible and affect is full range and well- modulated. Thought process is linear with tight associations. No bizarre thought content. No SI. No HI. Patient is alert and oriented x 4. Patient displays intact memory (Cognition). Clearly states she has a psychotic disorder (Insight). She is taking medications voluntarily (Judgement). Physical Exam: BP 110/63 (Patient Position: Sitting) Pulse 80 Temp 37.1 ??C (98.8 ??F) (Temporal) Resp 18 Ht 162.6 cm (64) Wt (!) 111.6 kg (246 lb) SpO2 96% BMI 42.23 kg/m?? Data Review: Labs: No results found for this or any previous visit (from the past 24 hour(s)). Prolactin: 125.5 ng/ml (: 9.7-208.5) Other studies: N/A Assessment/Formulation: Mary Grace Harris is a 28 y.o. 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 She was readmitted to [place] [id number] on an involuntary basis due to her disorganization and lack ofcapacity to consent to voluntary admission. Since admission she has reconstituted rather rapidly with risperidone 2 mg twice daily. She continues to express experiencing odd phenomenon such as seeing auras and having spirit babies, which may be more consistent with overvalued ideas and personality structure than active psychosis. She was started on risperidone after a cross titration from ziprasidone during her previous inpatient stay the prior week. She began to experience with an elevated proloactin level. This was likely a side effect of risperidone. We started Cariprazine 1.5 mg daily (11/21) with cessation of risperidone at that time. We are titrating cariprazine and will increase to 4.5 mg today (11/24). Mary Grace Harris meets criteria for acute level of care. Diagnostic Impression w/ Differential Diagnosis Psychiatric Diagnoses (including Personality Traits/Disorders): Unspecified psychosis, unspecified anxiety Other Medical Conditions: Chronic pain, celiac disease, GERD, tobacco dependence Plan: #Unspecified psychosis: ???d/c'd Risperidone 2 mg twice daily ???Increase Cariprazine to 4.5 mg ???Melatonin 3 mg nightly ???Hydroxyzine 25 mg every 4 hours as needed #Vaginal discharge: ???Gynecology consulted ???Vaginitis exam negative ???Chlamydia/N.Gonorrhoeae negative - STI panel negative - D/c'd bactrim (urine culture neg) #Chronic pain: - Scheduled staggered Tylenol and ibuprofen q6h while awake - Ice packs and heat packs prn - Updated PCP Dr. Muhammad - Physical therapy consulted - PT recommending TENS unit, patient may use while on constant observation ?? #Tobacco use disorder: ???Nicotine inhaler as needed Discharge Plan: Discharge planning per multidisciplinary team rounds. Yamileth Rojas MD, MBE PGY2 - Neurology Pager: [phone] ([phone] nights and weekends) Associated attestation - Lyndsey Carter - 11/25/2018 3481 EDT Attending Attestation: I saw and evaluated the patient on 11/24/2018. Treatment plan reviewed with the patient and team. I agree with (and have edited in italics) the findings and plan of care as documented in the resident/PA's note. Lyndsey Carter MD Attending Psychiatrist Pager [phone] Lulu Jenkins, PT - 11/23/2018 5616 EDT [facility] Rehabilitation Therapy Acute Therapies [facility] Physical Therapy Initial Evaluation Note Date of Service: 11/23/2018 Reason for Referral: Evaluate and treat Precautions: Activity as tolerated; TENS unit SUBJECTIVE: This is helping referring to TENS unit. Pain: Location: Patient describes chronic pain related to 4 different sources: Sciatica Fibromyalgia, torticollis/scoliosis, and rib malalignment (related to playing football in high school). Today, pain is worse neck, right shoulder, thoracic spine and lumbar spine. Intensity: Pt hesitant to provide pain ratings. She noted doctor started her on a new medication (tramadol) today and that she had this before physical therapy. She seemed to think it helped to some extent. Pain behaviors and ratings were not fully explored due to it desire to minimize fixation on pain. Frequency: Constant Quality: variable Aggravating factors: Lack of pain medication (pt reports using medical marijuana at baseline) Alleviating factors: Medical marijuana, massage OBJECTIVE: PatientProfile: Patient is a 28 y.o. female admitted on 11/15/2018 secondary to Psychosis, unspecified psychosis type F29 Unsp psychosis not due to a substance or known physiol cond-F29[ICD-10-CM] The patient lives at [address] [place] [address] Home environment Not explored, as patient is functioning independently Prior Level of Function: Independent Services prior to admission: None-reports outpatient physical therapy approximately 7 years ago Work/Leisure: Not explored Medical/Surgical History: Current: Patient Active Problem List Diagnosis ??? Depression ??? Celiac disease ??? Anxiety ??? Chronic pain syndrome ??? Tobacco dependence syndrome ??? Obesity, Class III, BMI 40-49.9 (morbid obesity) ([facility]) ??? Marijuana use, continuous ??? 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 Psychosis ([facility]) Past: Past Medical History: Diagnosis Date ??? Asthma ??? Asthma, exercise induced ??? Fibromyalgia ??? Laceration 12/04/06 left 5th digit tendon,nerve laceration ??? Mental disorder ??? Myofascial pain right shoulder and neck myofascial pain ??? Psychiatric problem anxiety ??? Schizophrenia, paranoid ([facility]) ??? Sciatica ??? Scoliosis ??? Tendinitis ??? Torticollis Past Surgical History: Procedure Laterality Date ??? FINGER SURGERY left ??? WISDOM TOOTH EXTRACTION Medications: Medications reviewed Arousal, Attention, and Cognition: Orientation: Alert Did not assess orientation. Per chart patient has been having hallucinations/delusions in this setting. Cardiopulmonary: Not evaluated secondary to stable per flow sheets. Patient not symptomatic during evaluation. Integumentary/Anthropometric Characteristics: Palpation/Observation: Skin: No problem noted in exposed areas. Full head to toe not visualized, please refer to MD/Nursingnotes for details. Posture: Forward head and Protracted shoulders. Did not appreciate torticollis or scoliosis. Palpation: periscapular area palpated with increased pain medial border of B scapulae, thoracic spine (~T7) and lumbar spine (~L1) tender to palpation. Range of Motion and Joint Integrity: Active Range of Motion: Within normal limits except as noted Upper Quarter: Left Upper Extremity: Right Upper Extremity: Cervical Spine: limited extension, however, ?effort Lower Quarter: Left Lower Extremity: Right Lower Extremity: Lumbar Spine: full flexion/extension of lumbar spine noted Muscle Performance: Strength: Formal resistive muscle testing was not performed due to pain. Upper Quarter: Left Upper Extremity: > or = 3/5 as demonstrated functionally Right Upper Extremity: > or = 3/5 as demonstrated functionally Cervical Spine: N/E Lower Quarter: Left Lower Extremity: > or = 3+/5 as demonstrated functionally Right Lower Extremity: > or = 3+/5 as demonstrated functionally LumbarSpine: N/E Sensation, Reflexes, and Nerve Integrity: Light Touch Sensation: Upper Quarter:intact for upper extremities Lower Quarter: Intact for lower extremities Pt makes vague complaint of experiencing numbness all over at times. Neuromotor Function/Development: No problems noted Balance, Mobility, and Gait: Balance: No loss of balance observed throughout physical therapy session Mobility: supine to sit: independent sit to supine: independent sit to stand: independent stand to sit: independent Gait: Assistive device/distance/assist/deviations: pt ambulating independently in room without gross gait deviations or loss of balance. Self-Care, Home Management, Work, and Leisure: N/E Outcomes: N/E Informed Consent: The patient consented to the physical therapy evaluation. The patient agrees to and understands the physical therapy treatment plan and goals. Interventions Completed Today: Physical Therapy today at: 15:30 Total treatment time: 50 minutes. Timed code treatment minutes: 30 Intervention included: Electric stimulation, monitored x 30 minutes -periscapular area palpated: Most tenderness on right side vs left. Thoracic spine and lumbar spine also palpated with increased tenderness at ~T7 and L1. -electrodes were placed on middle and lower trapezeii on right (first channel) and centrally at ~T7 for second channel for 15 minutes. -Thoracic electrodes were moved to lumbar spine for additional 15 minutes (with trapezius electrodesrunning concurrently) -turned on (chose Back setting on EMPI unit) and increased amplitude to sensory threshold (2.5 ma); educated patient on mechanics of increasing amplitude and unlocking the adjustment buttons -Educated patient in gait control theory of pain control. -recommended that this patient use lowest sensory threshold for longest possible effect into the future -recommended that she turn up amplitude if sensation is lost (habituation) -recommended that he use the device up to 2 hours on and 4 hours off during daytime hours. [place] time would be during group experiences, as the floor requires him to have supervision during use of device (orders require use to be supervised) -educated nursing staff re: same -Patient did not rate pain before or after, but reported improved pain with use of TENS -Emphasized to patient that goal of the TENS unit is to promote increased participation in physical activity. TENS unit if fact will only be felt while unit is running. Therefore, it is advisable to use the unit while performing activity such as walking around unit or other exercise. Instructed patient and transversus abdominis exercise and educated on role of core stabilization during exercise and mobility. Patient/Family Education: Topic: See above Electrodes should be stored on provided stiff plastic backing inside pouch. They can be moistened and placed on clean skin each morning and left on for the day. If electrodes lose adhesiveness, they can be washed with gentle soap and water. Patient nurse educated on need for skin inspection in the event of severe skin irritation. Patient was provided with some introduction to pain neuroscience education as it relates to chronic pain. Increased mobility and activity was highly encouraged. Learner: patient Method: verbal and demonstration Barriers to Learning: none noted during evaluation Outcome: verbalized understanding Team Communication: ASSESSMENT: Physical Therapy Diagnosis: Patient presents with reduced functional mobility due to chronic pain from multiple sources which is negatively impacting her participation in exercise; pt with pain, decreased ROM (cervical extension), and decreased activity tolerance. Physical Therapy Prognosis: This patient will benefit from physical therapy involvement in this setting to facilitate improved participation in physical activity. Patient presents with significant painwhich is chronic in nature. Per her report changes//reduction in pain medications and discontinuation of use of medical marijuana with admission to psychiatry has greatly impacted her ability to participate in exercise. Patient has been encouraged to increase activity as tolerated as exercise is an evidence-based pain management recommendation particularly for chronic pain. A TENS unit was introducedtoday as a nonpharmacologic means to manage pain and increased participation. Patient responded wellto use of TENS and reports that it did result in decreased pain. It is recommended that patient utilize TENS unit on her own at times when she is supervised on the unit. Also recommended patient attempt to participate in increased exercise when TENS unit is in place. She reports she has only toleratedapproximately 10 minutes of walking at a time due to pain. I have encouraged patient to increase time spent walking by 1 minute increments daily. Short-Term Goals: n/a ?? n/a Long-Term Goals: 7-30 days ?? Patient will demonstrate ability to participate in increased physical activity, as evidenced by ambulating 20 minutes consecutively on unit (facilitated by improved pain control by use of TENS) ?? Patient will demonstrate use of TENS unit independently. PLAN: Treatment/Intervention: Physical therapy will be provided by physical therapist and/or physical therapist recruitment assistant when medically appropriate. Frequency: daily for 1 time per week Intensity: 15-30 minutes per session Duration: During hospitalization Interventions may include:Therapeutic exercises and electrical stimulation Patient/family education: Equipment, Recommendations Further Data: Recommended Discharge Destination: Determined by team Recommended Discharge Services: Outpatient physical therapy Recommended Equipment Needs: Patient may benefit from TENS unit Other recommendations: No other consults recommended at this time Pager: [phone] Lulu Jenkins, PT 11/23/2018 16:55 Cuco Berrios - 11/23/2018 1604 EDT Inpatient Psychiatry Daily Progress Note Date of Service: 11/23/2018 Admit Date: 11/15/2018 Hospital day: LOS: 8 days Legal Status: Legal status: Involuntary Observation Level: Observation / visual check: Q 15 minutes (frequent) Locus/Risk of Harm: Current locus of harm: 4 Reason for Admission/Chief Complaint: I want a complete soul Clinical Update/24-hour Events: Mary Grace was lying in bed with her arm resting on her forehead when we visited her. She reported experiencing some dizziness, so we practiced some deep breathing, and then Mary Grace was able to stand upand walk to another room for patient-centered rounds. Once in the room, we continued the deep breathing exercise for a few minutes until Mary Grace felt ready to speak. While talking, Mary Grace expressed feeling like she was exhausted and out of energy, that she has hadtrouble breathing for 3 months, stating that she knows information and is concerned for other peoplewho don't know what she knows. She made frequent mentions of light and darkness with the darkness now outweighing the light and it being impossible to go back. Expressed hopelessness for moving forward, stating I've failed... I'm all black inside. Multiple mentions of confucianism figures such as the holy spirit, Shaquille, and the devil, with the devil taking over people who are vulnerable and turning them into animals. She was frequently tearful when describing her thoughts and feelings, but was self-co nsolable and expressed gratitude for the breathing exercises and being heard by others in the room. At the end of the meeting Mary Grace was offered lithium as a possible medication to help with her symptoms and she was agreeable to this. Current Facility-Administered Medications: acetaminophen (TYLENOL) tablet 650 mg oral 3 times per day aluminum & magnesium hydroxide-simethicone (MYLANTA-DS) 400-400-40 mg/5 mL suspension 30 mL [id number] PRN cariprazine capsule 3 mg oral DAILY docusate sodium (COLACE) capsule 100 mg oral Daily PRN hydrOXYzine (ATARAX) tablet 25 mg oral Q4H PRN ibuprofen (MOTRIN) tablet 600 mg oral 3 times per day magnesium hydroxide (MILK OF MAGNESIA) 400 mg/5 mL suspension 30 mL oral Daily PRN melatonin tablet 3 mg oral AT BEDTIME PRN Multivitamins with Minerals tablet 1 Tab oral DAILY nicotine (NICOTROL) 10 mg inhaler 1 Inhaler inhalation Q2H PRN nicotine inhaler (delivery device) inhalation PRN senna (SENOKOT) tablet 1 Tab oral Daily PRN traMADol (ULTRAM) tablet 25 mg oral ONCE Review of Systems: General - experiencing chronic pain Sleep - only 2.75 hours Mental Status Exam: Mary Grace Harris is a 28 y.o. woman who was lying in bed when visited by the team, but was willing to sit in another room for patient-centered rounds. Seemed notably distressed, and we started the meeting with a few minutes of deep breathing exercises. Cooperative and engaged in the interview with socially integrated eye contact. Displays no psychomotor retardation/agitation. Speech is coherent, but rate and volume vary appropriately with fluctuations in emotion. Mood was hopeless. Affect was broad-ranged and labile, as she was able to express sadness and anger and briefly some hope at the end. Frequently tearful. Thought process is linear with tight associations, goal directed. Thought content includes many confucianism tones (with mentions of the holy spirit, Shaquille, the devil, Beelzebub), concepts of light and dark, energy being taken/stolen, and hopelessness/concern regarding the future and her being able to help others. Suicidal ideation and homicidal ideation not assessed at this time. Endorses hearing and seeing the devil latching onto people with tentacles. Exhibits no obvious responseto unseen or unheard others. Impulsivity is low. Able to describe her thoughts and concerns with clear imagery, but is aware of current hospitalization and recognizes that she says things that don't always make logical sense to others, agreeable to treatment suggestions (insight and judgement) Physical Exam: BP 110/63 (Patient Position: Sitting) Pulse 80 Temp 37.1 ??C (98.8 ??F) (Temporal) Resp 18 Ht 162.6 cm (64) Wt (!) 111.6 kg (246 lb) SpO2 96% BMI 42.23 kg/m?? Data Review: Labs: No results found for this or any previous visit (from the past 24 hour(s)). Other studies: N/A Assessment/Formulation: Mary Grace Harris is a 28 y.o. year old woman with a history of unspecified psychosis, unspecified anxiety, and numerous prior psychiatric hospitalizations who had presented to the [facility] ED 8 days ago with disorganized thought, disorganized speech, mood lability, irritability, and expressed SI. She had been hospitalized on [place] [facility] and left AMA on 11/14/18, 1 day before representing to the ED on 11/15/18. [facility] Mary Grace showed notable improvement in her disorganization with risperidone, which has since been discontinued and replaced with cariprazine due to galactorrhea. She continues to express thoughts and auditory/visual hallucinations with confucianism undertones (such as the devil's tentacles grabbing people and turning them into animals), grandiosity (expressing that she has a message she needs to communicate to others, referring to herself as a pillai/god), poor sleep, and experiences some mood lability (frequently tearful during our interaction today). This long-term magical thinking could be consistent with a schizotypal personality disorder, but her full range of emotions makes this less likely and could indicate a psychosis. Her grandiosity, lack of sleep, and intermittently rapid speech could also suggest a manic episode. Mary Grace Harris meets criteria for acute level of care. Diagnostic Impression w/ Differential Diagnosis Psychiatric Diagnoses (including Personality Traits/Disorders): Unspecified Psychosis Unspecified Anxiety Consider Schizotypal Personality Disorder Consider Bipolar 1 Disorder Other Medical Conditions: Chronic pain Celiac Disease GERD Tobacco Dependence Plan: #Unspecified Psychosis and Anxiety - start lithium - continue cariprazine 3mg - continue melatonin 3mg qhs - continue hydroxyzine 25mg Q4H PRN #Chronic Pain - continue tylenol 650mg TID PRN - continue ibuprofen 600mg TID PRN Discharge Plan: Discharge planning per multidisciplinary team rounds. Cuco Carmichael, MS-3 [facility] 11/23/2018 16:09 Inga Rees, BALER - 11/23/2018 1511 EDT Social Work Progress Note Intervention/Service: Coordination of care and On-going assessment Person centered rounds with yissel Brody underwriter (BENNY), Dr. Carter (attending), Gerard ([facility]) and Annabelle (RN). We began our meeting with a breathing exercise as Mary Grace noted that she had been having trouble breathing for the last three months. She related this to others stealing her light and fee ling as though things fly into her mouth every time she breaths. Mary Grace eventually stated that shewas ready to talk after we did some group breathing. Mary Grace shared on many topics with confucianism undertones. Described the georgettel attaching itself to others backs with tentacles and that this resultedin her light being stolen. Mary Grace continued to express difficulty herself from the restof the world, stating that in everyone in the room and in the world was inside of her. Let Mary Grace know that we will hopefully hear about TELEVISION ANTENNA INSTALLER by the end of the week. Yamileth Pelletier MD - 11/23/2018 0815 EDT Inpatient Psychiatry Daily Progress Note Date of Service: 11/23/2018 Admit Date: 11/15/2018 Hospital day: LOS: 8 days Legal Status: Legal status: Involuntary Observation Level: Observation / visual check: Q 15 minutes (frequent) Locus/Risk of Harm: Current locus of harm: 4 Reason for Admission/Chief Complaint: I want a complete soul Clinical Update/24-hour Events: I met with Mary Grace in her room this morning. Mary Grace endorses significant pain this morning and again says it's inhumane to not treat her pain with anything other than tylenol and ibuprofen. She says she is eating [her] hands because her pain is so bad. She endorses feeling snakes on her skin that leave cook. She is not sleeping well. We discussed trying the TENS unit with PT and she is agreeable. She does not believe the new medication (cariprazine) is helping. Medications: Current Facility-Administered Medications: acetaminophen (TYLENOL) tablet 650 mg oral 3 times per day aluminum & magnesium hydroxide-simethicone (MYLANTA-DS) 400-400-40 mg/5 mL suspension 30 mL [id number] PRN cariprazine capsule 3 mg oral DAILY docusate sodium (COLACE) capsule 100 mg oral Daily PRN hydrOXYzine (ATARAX) tablet 25 mg oral Q4H PRN ibuprofen (MOTRIN) tablet 600 mg oral 3 times per day magnesium hydroxide (MILK OF MAGNESIA) 400 mg/5 mL suspension 30 mL oral Daily PRN melatonin tablet 3 mg oral AT BEDTIME PRN Multivitamins with Minerals tablet 1 Tab oral DAILY nicotine (NICOTROL) 10 mg inhaler 1 Inhaler inhalation Q2H PRN nicotine inhaler (delivery device) inhalation PRN senna (SENOKOT) tablet 1 Tab oral Daily PRN Review of Systems: - Appetite okay - Significant chronic pain - Poor sleep Mental Status Exam: Mary Grace Harris is a 28 y.o. female, obese, pink hair. Her behavior was calm, polite, and cooperative. She appears in mild distress. No psychomotor disturbances or abnormal/involuntary movements. Speech is unremarkable for rate, rhythm, tone, or volume. Expressive language, Receptive language, and Pragmatic Language intact. Stated mood is not good, and affect is full range and well- modulated. Thought process is linear with tight associations. Thought content is bizarre with mentions of snakes on her skin. No SI. No HI. Patient is alert and oriented x 4. Patient displays intact memory (Cognition). Clearly states she has a psychotic disorder (Insight). She is taking medications voluntarily (Judgement). Physical Exam: BP 130/87 (BP Cuff Location: Right arm, Patient Position: Sitting) Pulse (!) 130 Comment: RN Notified Temp 36.1 ??C (97 ??F) (Temporal) Resp 18 Ht 162.6 cm (64) Wt (!) 111.6 kg (246 lb) SpO2 97% BMI 42.23 kg/m?? Data Review: Labs: No results found for this or any previous visit (from the past 24 hour(s)). Prolactin: 125.5 ng/ml (: 9.7-208.5) Other studies: N/A Assessment/Formulation: Mary Grace Harris is a 28 y.o. 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 She was readmitted to [place] [id number] on an involuntary basis due to her disorganization and lack ofcapacity to consent to voluntary admission. Since admission she has reconstituted rather rapidly with risperidone 2 mg twice daily. She continues to express experiencing odd phenomenon such as seeing auras and having spirit babies, which may be more consistent with overvalued ideas and personality structure than active psychosis. She was recently started on risperidone after a cross titration from ziprasidone during her previousinpatient stay the prior week. She endorses , and prolactin is elevated. This is likely a side effect of risperidone. We started Cariprazine 1.5 mg daily (11/21) with cessation of risperidone at that time. We have increased cariprazine to 3 mg daily. Mary Grace Harris meets criteria for acute level of care. Diagnostic Impression w/ Differential Diagnosis Psychiatric Diagnoses (including Personality Traits/Disorders): Unspecified psychosis, unspecified anxiety Other Medical Conditions: Chronic pain, celiac disease, GERD, tobacco dependence Plan: #Unspecified psychosis: ???d/c'd Risperidone 2 mg twice daily ???Continue Cariprazine 3 mg ???Melatonin 3 mg nightly ???Hydroxyzine 25 mg every 4 hours as needed #Vaginal discharge: ???Gynecology consulted ???Vaginitis exam negative ???Chlamydia/N.Gonorrhoeae negative - STI panel negative - D/c'd bactrim (urine culture neg) #Chronic pain: - Scheduled staggered Tylenol and ibuprofen q6h while awake - Tramadol 50 mg x1 - Ice packs and heat packs prn - Updated PCP Dr. Muhammad - Physical therapy consulted - PT recommending TENS unit, patient may use while on constant observation ?? #Tobacco use disorder: ???Nicotine inhaler as needed Discharge Plan: Discharge planning per multidisciplinary team rounds. Yamileth Rojas MD, MBE PGY2 - Neurology Pager: [phone] ([phone] nights and weekends) Associated attestation - Lyndsey Carter - 11/29/2018 0820 EDT Attending Attestation: I saw and evaluated the patient on 11/23/2018. Treatment plan reviewed with the patient and team. I agree with (and have edited in italics) the findings and plan of care as documented in the resident/PA's note. Lyndsey Carter MD Attending Psychiatrist Pager [phone] Orlin Finley - 11/22/2018 1702 EDT Social Work Progress Note Intervention/Service: Coordination of care and On-going assessment This underwriter sent a letter to [employer] [facility] indicating that patient will not be able to attend a courthearing this . Patient met with treatment team including attending eliecer Izquierdo resident Dr. Rojas and this underwriter. Patient talked about her pain and feeling under medicated. She repeatedly stated she needs to go home and became tearful. Patient stated this underwriter could read her thoughts and patient could see a light shining from the doctor's crotch. Lulu Basurto, PT - 11/22/2018 6851 EDT Rehabilitation Therapies Acute Therapies [facility] Physical TherapyContact Note Date of Service: 11/22/2018 A physical therapy consult order was received and the medical record was reviewed. This therapist met with patient to discuss the role of physical therapy in the acute care setting. Patient reports chronic pain (which she attributes to fibromyalgia, tortocolis, rib malalignment from playing football, scoliosis and sciatica). She is mobilizing independently in this setting. Patient consistently expressed concern that her pain is not being managed with medication as it is at home. She stated it's inhumane and also reports that her activity level is lower because of the pain (which is less controlled here due to lack of medication). This therapist relayed this messaged to the Dr. Rojas who will discuss with team. Patient expressed interested in TENS as a possible source of non-pharmacologic pain management. TENScan be implemented in this setting with MD order. Dr. Rojas is aware and will discuss with team. This therapist encouraged patient to exercise as much as possible, as this is an management option for chronic pain. She reports that she can walk for 10 minutes, but cannot do more without medication.Encouraged her to slowly build tolerance potentially adding a minute per day. Patient was not clear if she would be able to do this. Will follow up tomorrow, if TENS is determined by team to be a feasible pain management modality. Hopefully, management of pain via nonpharmacologic methods will increase patient's ability to participate in physical activity. Overall, patient's needs are most appropriate for outpatient physical therapy. Recommend resumption of outpatient physical therapy services at discharge. Pager: [phone] Lulu Jenkins, PT 11/22/2018 16:25 Yamileth Pelletier MD - 11/22/2018 0807 EDT Inpatient Psychiatry Daily Progress Note Date of Service: 11/22/2018 Admit Date: 11/15/2018 Hospital day: LOS: 7 days Legal Status: Legal status: Involuntary Observation Level: Observation / visual check: Q 15 minutes (frequent) Locus/Risk of Harm: Current locus of harm: 4 Reason for Admission/Chief Complaint: I want a complete soul Clinical Update/24-hour Events: Saw Mary Grace with Dr. Carter and Orlin (BENNY) this afternoon in [facility]. Per nursing, Mary Grace slept 6.75 hours overnight. She reports feeling upside down and backwards and in significant pain today. She says she is unable to bend over to use the exercise machines due to her pain. She uses marijuana athome to help her pain. She states multiple times the need for pain medication other than tylenol andibuprofen. We discussed continuing with tylenol, ibuprofen, heat and/or ice packs, and physical therapy for now, and that I will reach out to her PCP to discuss what Mary Grace has used in the past and any alternative treatment for her pain. She was agreeable with this plan. She repeats multiple times I want to go home throughout the conversation. She says people here arestealing the light from the light. Mary Grace also told us that she plans for her brother Maddy to take care of her son Jose when she is discharged and that she will visit. Medications: Current Facility-Administered Medications: acetaminophen (TYLENOL) tablet 325 mg oral Q4H PRN aluminum & magnesium hydroxide-simethicone (MYLANTA-DS) 400-400-40 mg/5 mL suspension 30 mL [id number] PRN cariprazine capsule 3 mg oral DAILY docusate sodium (COLACE) capsule 100 mg oral Daily PRN hydrOXYzine (ATARAX) tablet 25 mg oral Q4H PRN ibuprofen (MOTRIN) tablet 600 mg oral Q6H PRN magnesium hydroxide (MILK OF MAGNESIA) 400 mg/5 mL suspension 30 mL oral Daily PRN melatonin tablet 3 mg oral AT BEDTIME PRN Multivitamins with Minerals tablet 1 Tab oral DAILY nicotine (NICOTROL) 10 mg inhaler 1 Inhaler inhalation Q2H PRN nicotine inhaler (delivery device) inhalation PRN senna (SENOKOT) tablet 1 Tab oral AT BEDTIME PRN Review of Systems: - Appetite okay - Significant chronic pain Mental Status Exam: Mary Grace Harris is a 28 y.o. female, obese, pink hair, wearing black eyeliner and pink lipstick. Her behavior was calm, polite, and cooperative. She appears in mild distress. No psychomotor disturbances or abnormal/involuntary movements. Speech is unremarkable for rate, rhythm, tone, or volume. Expressive language, Receptive language, and Pragmatic Language intact. Stated mood is not good, and affect is tearful, full range and well-modulated. Thought process is linear with tight associations. Thought content is bizarre, however is future-oriented as she states plans for her brother to take care of her son once she leaves. No SI. No HI. Patient is alert and oriented x 4. Patient displays intact memory (Cognition). Clearly states she has a psychotic disorder (Insight). She is taking medications voluntarily (Judgement). Physical Exam: BP 130/87 (BP Cuff Location: Right arm, Patient Position: Sitting) Pulse (!) 130 Comment: RN Notified Temp 36.1 ??C (97 ??F) (Temporal) Resp 18 Ht 162.6 cm (64) Wt (!) 111.6 kg (246 lb) SpO2 97% BMI 42.23 kg/m?? Data Review: Labs: No results found for this or any previous visit (from the past 24 hour(s)). Prolactin: 125.5 ng/ml (: 9.7-208.5) Other studies: N/A Assessment/Formulation: Mary Grace Harris is a 28 y.o. 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 She was readmitted to [place] [id number] on an involuntary basis due to her disorganization and lack ofcapacity to consent to voluntary admission. Since admission she has reconstituted rather rapidly with risperidone 2 mg twice daily. She continues to express experiencing odd phenomenon such as seeing auras and having spirit babies, which may be more consistent with overvalued ideas and personality structure than active psychosis. She was recently started on risperidone after a cross titration from ziprasidone during her previousinpatient stay the prior week. She endorses , and prolactin is elevated. This is likely a side effect of risperidone. We started Cariprazine 1.5 mg daily (11/21) with cessation of risperidone at that time. Mary Grace Harris meets criteria for acute level of care. Diagnostic Impression w/ Differential Diagnosis Psychiatric Diagnoses (including Personality Traits/Disorders): Unspecified psychosis, unspecified anxiety, Other Medical Conditions: Chronic pain, celiac disease, GERD, tobacco dependence Plan: #Unspecified psychosis ???Will d/c Risperidone 2 mg twice daily - Increase Cariprazine to 3 mg today 11/22 (started 11/21) ???Melatonin 3 mg nightly ???Hydroxyzine 25 mg every 4 hours as needed #Vaginal discharge ???Gynecology consulted ???Vaginitis exam negative ???Chlamydia/N.Gonorrhoeae negative - F/u STI panel - D/c'd bactrim (urine culture neg) #Chronic pain: - Scheduled staggered Tylenol and ibuprofen q6h while awake - Ice packs and heat packs prn - Have reached out to PCP Dr. Muhammad for recommendations - Physical therapy consulted - PT recommending TENS unit, patient may use while on constant observation ?? #Tobacco use disorder ???Nicotine inhaler as needed Discharge Plan: Discharge planning per multidisciplinary team rounds. Yamileth Rojas MD, MBE PGY2 - Neurology Pager: [phone] ([phone] nights and weekends) Associated attestation - Lyndsey Carter - 11/29/2018 0826 EDT Attending Attestation: I saw and evaluated the patient on 11/22/2018. Treatment plan reviewed with the patient and team. I agree with (and have edited in italics) the findings and plan of care as documented in the resident/PA's note. Lyndsey Carter MD Attending Psychiatrist Pager [phone] Orlin Finley - 11/21/2018 9972 EDT Social Work Progress Note Intervention/Service: On-going assessment Met with patient and introduced myself as her covering social media executive. Patient discussed her issues with relationships and previous boyfriends who are possessed by spirits and the devil. She also statedshe needs to get out of the hospital and use marijuana because it helps me. She stated she was buying marijuana at the [employer] until that business was shut down for selling. Patient stated that marijuana calms her down. She shared that she has been smoking that and cigarettes since she as was age12. Asked how she is doing without smoke marijuana while hospitalized she responded terrible and feels she is not on enough medications. We discussed her referral to [facility]. Patient discussed needing help with selling her trailor and moving into an apartment. Met with patient, her brother, Maddy and her mother. They shared that patient has a court date this that she will not be able to attend. They would like to see if she can get a continuance in Family court for the order of no contact that she filed against her ex-partner. Maddy stressed the importance of the order and stated he has been intending to change the locks on his sister's trailer. Samantha Jerez - 11/21/2018 1407 EDT RESOURCE ASSOCIATE ASSISTANCE 11/21/18 Met with patient, her brother Maddy & her grandmother Ellen. Cadastral Surveyor reviewed function report her grandmother completed as a third republican. Patient told underwriter she could complete the function report she needed to fill out. Report was completed. Cadastral Surveyor put both in today's outgoing mail. Samantha Owens #[id number] Jose Baum MD, - 11/21/2018 5250 EDT Inpatient Psychiatry Daily Progress Note Date of Service: 11/21/2018 Admit Date: 11/15/2018 Hospital day: LOS: 6 days Legal Status: Legal status: Involuntary Observation Level: Observation / visual check: Q 15 minutes (frequent) Locus/Risk of Harm: Current locus of harm: 4 Reason for Admission/Chief Complaint: I want a complete soul Clinical Update/24-hour Events: Mary Grace slept 4.25 hours overnight. I met with Mary Grace in her room this morning. She is upset thismorning and believes she will be unable to get better if she stays. She reports feeling upside down and being ethereally molested. She believes her light is getting sucked up through the vent. She is seeing and feeling snakes every time she showers. They leave a burning sensation and visible red sebas. She does not want to take the new medication after she looked up the side effects. Rather, she says she needs more trazodone and more risperdal. She also rates her pain 150 out of 10 and is saying it's inhumane to not give pain medication other than Tylenol. She is on SSI for her chronic pain and treats her pain by smoking marijuana habitually. She is requesting physical therapy. She says sheis no longer lactating and is unclear if she is still having vaginal discharge. Met with patient, her brother and grandmother this afternoon. Discussed her symptoms, plan of care and pain management with an emphasis on physical therapy, ibuprofen and acetaminophen. Medications: Current Facility-Administered Medications: acetaminophen (TYLENOL) tablet 325 mg oral Q4H PRN aluminum & magnesium hydroxide-simethicone (MYLANTA-DS) 400-400-40 mg/5 mL suspension 30 mL [id number] PRN cariprazine capsule 1.5 mg oral DAILY docusate sodium (COLACE) capsule 100 mg oral Daily PRN hydrOXYzine (ATARAX) tablet 25 mg oral Q4H PRN ibuprofen (MOTRIN) tablet 600 mg oral Q6H PRN magnesium hydroxide (MILK OF MAGNESIA) 400 mg/5 mL suspension 30 mL oral Daily PRN melatonin tablet 3 mg oral AT BEDTIME PRN Multivitamins with Minerals tablet 1 Tab oral DAILY nicotine (NICOTROL) 10 mg inhaler 1 Inhaler inhalation Q2H PRN nicotine inhaler (delivery device) inhalation PRN senna (SENOKOT) tablet 1 Tab oral AT BEDTIME PRN Review of Systems: - Denies lactating - Significant chronic pain Mental Status Exam: Mary Grace Harris is a 28 y.o. female, obese, pink hair. Her behavior was calm, polite, and cooperative. She appears in mild distress. No psychomotor disturbances or abnormal/involuntary movements. Speech is unremarkable for rate, rhythm, tone, or volume. Expressive language, Receptive language, and Pragmatic Language intact. Stated mood is terrible, and affect is tearful, full range and well-modulated. Thought process is linear with tight associations. Thought content is bizarre, however is future-oriented as she states she will be unable to get better if she remains hospitalized. No SI. No HI. Endorses seeing and feeling snakes. Patient is alert and oriented x 4. Patient displays intact memory (Cognition). Clearly states she has a psychotic disorder (Insight). She is taking medications voluntarily (Judgement). Physical Exam: BP (!) 145/61 (Patient Position: Standing) Comment: RN aware Pulse 67 Temp 36.3 ??C (97.3 ??F) Resp 16 Ht 162.6 cm (64) Wt (!) 113.4 kg (250 lb) SpO2 95% BMI 42.91 kg/m?? Data Review: Labs: Results for orders placed or performed during the hospital encounter of 11/15/18 (from the past 24 hour(s)) VAGINITIS EXAM Collection Time: 11/20/18 12:05 Result Value Ref Range Gram Smear Result Many Polys Gram Smear Result No yeast seen. Gram Smear Result Smear NOT consistent with bacterial vaginosis. Result No Trichomonas antigen detected. Prolactin: 125.5 ng/ml (: 9.7-208.5) Other studies: N/A Assessment/Formulation: Mary Grace Harris is a 28 y.o. 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 She was readmitted to [facility] on an involuntary basis due to her disorganization and lack ofcapacity to consent to voluntary admission. Since admission she has reconstituted rather rapidly with risperidone 2 mg twice daily. She continues to express experiencing odd phenomenon such as seeing auras and having spirit babies, which may be more consistent with overvalued ideas and personality structure than active psychosis. She was recently started on risperidone after a cross titration from ziprasidone during her previousinpatient stay the prior week. She endorses , and prolactin is elevated. This is likely a side effect of risperidone. We plan to start Cariprazine 1.5 mg daily today (11/21) with cessation of risperidone at that time. Mary Grace Harris meets criteria for acute level of care. Diagnostic Impression w/ Differential Diagnosis Psychiatric Diagnoses (including Personality Traits/Disorders): Unspecified psychosis, unspecified anxiety, Other Medical Conditions: Chronic pain, celiac disease, GERD, tobacco dependence Plan: #Unspecified psychosis ???Will d/c Risperidone 2 mg twice daily - Increase Cariprazine to 3 mg on 11/22 (started 11/21) ???Melatonin 3 mg nightly ???Hydroxyzine 25 mg every 4 hours as needed #Vaginal discharge ???Gynecology consulted ???Vaginitis exam negative ???Chlamydia/N.Gonorrhoeae negative - F/u STI panel - D/c'd bactrim (urine culture neg) #Chronic pain: -Consider starting amitriptyline qhs for fibromyalgia and sciatica -Physical therapy consult placed ?? #Tobacco use disorder ???Nicotine inhaler as needed Discharge Plan: Discharge planning per multidisciplinary team rounds. Yamileth Rojas MD, MBE PGY2 - Neurology Pager: [phone] ([phone] nights and weekends) Attending Attestation: I saw and evaluated the patient 11/21/18. Treatment plan reviewed with the patient and team. I agree with (and have edited in italics) the findings and plan of care as documented in the resident/PA's note. Jose Baum MD Attending Psychiatrist Pager [phone] Lakesha Gamaliel E - 11/20/2018 6058 EDT 11/20/2018 ATTENDING SENIOR LICENSING MANAGER NOTE: CHIEF COMPLAINT: Patient admitted with psychotic thinking and suicidal thinking. HOSPITAL DAY: LOS: 5 days INTERIM HISTORY: Events of past 24h reviewed with nursing staff and chart reviewed. Patient slept 5.5 hours last night. Took some Atarax last evening. Discusses auditory, visual, and tactile hallucinations - describing [place] people. Given complaints of vaginal odor yesterday, patient allowed speculum exam today with Telegraphic Typewriter Mechanic. Current Facility-Administered Medications Medication Dose Route Frequency Provider Last Rate Last Dose ??? acetaminophen (TYLENOL) tablet 325 mg 325 mg oral Q4H PRN Neno Ramirez MD 325 mg at 11/17/18 1042 ? ? aluminum & magnesium hydroxide-simethicone (MYLANTA-DS) 400-400-40 mg/5 mL suspension 30 mL 30 mL oral Q4H PRN Neno Ramirez MD ??? [START ON 11/21/2018] cariprazine capsule 1.5 mg 1.5 mg oral DAILY Neno Ramirez MD ??? docusate sodium (COLACE) capsule 100 mg 100 mg oral Daily PRN Neno Ramirez MD 100 mg at 11/20/18 1354 ??? hydrOXYzine (ATARAX) tablet 25 mg 25 mg oral Q4H PRN Neno Ramirez MD 25 mg at 11/20/18 0347 ??? ibuprofen (MOTRIN) tablet 600 mg 600 mg oral Q6H PRN Neno Ramirez MD 600 mg at 11/17/18 0502 ??? magnesium hydroxide (MILK OF MAGNESIA) 400 mg/5 mL suspension 30 mL 30 mL oral Daily PRN Neno Ramirez MD ??? melatonin tablet 3 mg 3 mg oral AT BEDTIME PRN Neno Ramirez MD ??? Multivitamins with Minerals tablet 1 Tab 1 Tab oral DAILY Neno Ramirez MD 1 Tab at 11/20/18 1000 ??? nicotine (NICOTROL) 10 mg inhaler 1 Inhaler 1 Inhaler inhalation Q2H PRN Neno Ramirez MD 1 Inhaler at 11/17/18 1625 ??? nicotine inhaler (delivery device) 1 Each inhalation PRN Neno Ramirez MD 1 Each at 11/17/18 1626 ??? risperiDONE (RISPERDAL) tablet 2 mg 2 mg oral BID Neno Ramirez MD 2 mg at 11/20/18 1000 ??? senna (SENOKOT) tablet 1 Tab 1 Tab oral AT BEDTIME PRN Neno Ramirez MD EXAM: BP (!) 145/61 (Patient Position: Standing) Comment: RN aware Pulse 67 Temp 36.3 ??C (97.3 ??F) Resp 16 Ht 162.6 cm (64) Wt (!) 113.4 kg (250 lb) SpO2 95% BMI 42.91 kg/m?? MSE: Overweight young woman who appears stated age. Dyed pink hair. Calm and cooperative upon interview. No psychomotor disturbances. Sitting in day room. Engaging. Good eye contact. Speech with flat prosody. Mood is good with restricted affect. Goal-directed thinking. Thought content is bizarre andmarked by delusions. No SI or HI. AH or VH endorsed. Insight is fair as is her judgment. Able to recognize the 'bizarre' quality of perceptual disturbances. Compliant with medicine. ASSESSMENT: 28 year-old woman with history of multiple psychiatric admissions. Admitted with psychotic features and making suicidal statement. Diagnosis:Unspecified psychotic disorder Progress: Improvements - taking medications. PLAN: Unchanged, refer to orders and multidisciplinary team treatment plan. Continue for Risperidonefor now. Galactorrhea appreciated and Prolactin elevated. Sign out indicates plan to start Cariprazine on Wednesday and continue Risperidone over weekend. Patient indicates some hesitation about new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 difficult to control. She also follows GF diet for celiac dz though this is not confirmed in her medical records. TTG level in 2015 WNL. Advised to add exercise, 30-60 minutes daily. Pt very receptive to discussion today. Plan ?? Diet ed completed for wt control ?? Written material (portions for food groups) provided ?? 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 She discharged AMA from [facility] last night (admitted 11/06/18-11/14/18 at 1900) with her boyfriend, and was BIBA this morning following a bystander calling 911 at the patient's request. She was reported by EMS to be screaming into the street at that time. Prior to this, she had voluntarily presented to the ED and wasadmitted for unspecified psychosis with paranoid delusions. She had informed staff here that she wasexperiencing the apocalypse and was being persecuted by the shadow tentacle being. At the time of presentation back to [facility], she is extremely tearful and difficult to interview, but states I've been dealing with this for nine years. I probably should be euthanized and I'm already . She is afraid of animals and of pollution from the [employer] plant. She requests she be kept away from babies, my boyfriend is Lucifer and he's making me dangerous...he took my soul. I want to be in the hospital and I'm afraid of you turning into a dog or a snake. At this timeshe states she would like to take medications. She reportedly made similar comments to crisis staff,and told them that I need to be ; I'm telepathic...I can tell your true intentions. She alsorepeated kill Laura Harris, which she says is an event that happened in [place]. OBJECTIVE: VS current: Vitals: 11/15/18 0543 11/15/18 0546 BP: (!) 147/100 Pulse: (!) 125 Temp: 37.4 ??C (99.4 ??F) TempSrc: Oral Oral Weight: (!) 113.4 kg (250 lb) Height: 162.6 cm (64) Mental Status Exam: Appearance: Obese female, supine in bed and in no acute distress, with short dyed hair andsomewhat disheveled Behavior: keeps her eyes closed until requested to open them; extremely tearful throughout interview. Some psychomotor slowing; remains lying down on her left side throughout interview. Non-aggressive but paranoid. Speech: Fluent Pakistani with no accent. Mildly increased rate, normal rhythm. Tearful, speaking in brief sentences. Mood: not fine Affect: Congruent, tearful, anxious. Perception: Appears to be responding to internal stimuli, command auditory hallucinations Thought Process: Tangential with loose associations Thought Content: Stated SI and HI. Multiple complex/paranoid delusions confucianism in nature; Cotard delusion. Cognition: Unable to assess at this time as she is unwilling to answer orientation questions, appears generally aware and alert. Poor attention, answers questions very briefly before reverting to delusional statements Insight: Poor, as evidenced by fixation on delusions Judgment: Poor, as evidenced by AMA discharge and fluctuating willingness to accept psychiatric help ASSESSMENT: Mary Grace Harris is a 28 y/o female with a prior history of unspecified psychosis and multiple psychiatric admissions. She left [facility] AMA last night following an eight day admission for psychosis, and now presents to the ED with paranoid delusions, disorganized thoughts, and anxiety. She believes she is but also expresses a desire to be , and appears to be reciting command auditory hallucinations. At this time she meets EE criteria, is willing to take antipsychotics, and will be readmitted to [facility]. 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 today. Placed on EE by Dr. Ellison. - Continue 1:1 observation - In the event of a psychiatric emergency: Haloperidol 5 mg, Lorazepam 2 mg, and Diphenhydramine 50 mg IM x1 - We will continue to round daily until placement is found Please call crisis with any questions weekdays 8a-5pm. An on-call resident is available weekdays 5pm- 8am and weekends at pager [phone]. Thank you for allowing us to participate in the care of your patient. We will continue to follow with you. Lalo Szymanski, MS3 Psychiatry 11/15/2018 Attending Attestation I was present with the medical student for the history, exam, medical decision making documented herein. I have personally performed my own physical exam and medical decision making. I have verified the medical student???s documentation, and agree with the findings. My edits are in OLIVE. Ms. Harris presents with signs and symptoms of acute psychosis. She d/c AMA yesterday from [facility] after much deliberation about whether or not she met EE criteria. It appears clear from the events of last night and her presentation today that she requires a higher level of care. She demonstrates an inability to consistently making a choice regarding inpatient, in line with how she presented on [facility]. Therefore, I conclude that she is unable to consent to voluntary. An EE will be completed. 2nd cert needed by 0930 11/16/18 Thanks Bradford Ellison DO Attending, Psychiatry I spent a total of 25 minutes in face to face time with this patient today and >50% of that time was spent in counseling and coordination of care as described in the progress note. documented in this encounter ED Notes Angelito Armando RN - 11/15/2018 1334 EDT Pt admitted to [facility]. All personal belongings transported with the pt to the unit. Pt did not urinate during the time she was in the ED, no specimen collected. Angelito Pate RN - 11/15/2018 1249 EDT Pt to be admitted to [facility]. Nurse to nurse completed with Zachary. Angelito Pate RN - 11/15/2018 1148 EDT Per 1:1 observer, pt has not used the bathroom yet to provide urine sample. Angelito Pate RN - 11/15/[address] Ellison, pt to be admitted to [facility] later today. Angelito Pate RN - 11/15/2018 0959 EDT Pt lying in bed, stating that she wants Risperdal, and pain medication. When offered Ibuprofen or Tylenol, she refused, No, I take Vicadin or Hydrocodone and proceeded to recite a list of her prior diagnosis. Angelito Pate RN - 11/15/2018 0947 EDT This nurse entered pt's room to administer medication, Ativan 1 mg. Pt lying in bed, stated I need meds. When offered the Ativan, she stated No, I need more than that. Pt refused offered medication. Angelito Pate RN - 11/15/2018 0852 EDT Crisis meeting with pt. Angelito Pate RN - 11/15/2018 0820 EDT Nurse called to room. Pt states I need medication. A lot. I need to be euthanized. Pt became teary, stating I slept with the devil, Lucifer, without knowing, and now I am infected with disease. Shethen continued to make hyper confucianism statements, talking about movies and TV programs. She stated she had the same family crest as . Pt perseverates about taking as much medication as possible, and that she can never go outside as she is so afraid. When asked if she wanted to hurt herself, she did not directly answer, just stating she was infected. When asked if she had ever hurt herself in the past, she denied. Will inform PA. Pt awaits to be seen by bobbin sorter. Angelito Pate RN - 11/15/2018 0751 EDT Assumed care of pt. Pt awake, sitting up in bed, writing in a journal. No complaints nor requests atthis time. Breakfast was ordered. Lea Haji PA-C - 11/15/2018 0712 EDT DOS: 11/15/2018 Chief Complaint Patient presents with ??? Suicidal Pt brought in by EMS after being found on the sidewalk screaming and crying in an apparent 'psychiatric break'. Pt left AMA last night from inpatient psych. HPI The patient is a 28 y.o. female who presents today with Suicidal (Pt brought in by EMS after being found on the sidewalk screaming and crying in an apparent 'psychiatric break'. Pt left AMA last night from inpatient psych. ) Patient is 28-year-old female with history of unspecified psychosis, presents to the ED via EMS after being found screaming and crying on a sidewalk, left AMA [facility] last night at 1900. Patient goes oninto various delusions of vampires, pollution in the [employer] power plant, not being able to bless the baby, not processing the light within, and stating that I am a copy cat and devoid of any emotion. She denies trying to hurt herself or hurting anyone else but states everyone was hurt last night everyone in the whole world. She denies auditory hallucinations but states she is telepathic and can read my mind and tell my true intentions. She continues to repeat kill Laura Harris which she q uotes is an event that happened in [place] several years ago. Suicidal Presenting symptoms: no suicidal thoughts and no suicide attempt Associated symptoms: anxiety Review of Systems Review of Systems Unable to perform ROS: Psychiatric disorder Psychiatric/Behavioral: Positive for decreased concentration. Negative for suicidal ideas. The patient is nervous/anxious. The patient's past medical, family and social history was reviewed and updated as needed. Allergies Allergen Reactions ??? Gluten Protein ??? Haldol [Haloperidol Lactate] paralysis ??? Paxil [Paroxetine Hcl] Nausea And Vomiting Vital Signs Vitals Reassessment?: Yes Temp: 35.9 ??C (96.6 ??F) Temp src: Oral Pulse: 105 Resp: 18 SpO2: 99 % BP: 114/67 BP MAP: 76 mm Hg BP Device: BP Machine Patient Position: Lying right side BP Cuff Location: Left arm Davis Agitation Sedation Scale: 0 O2 Device: None (Room air) Physical Exam Constitutional: She is oriented to person, place, and time. She appears well- developed and well-nourished. Neck: Normal range of motion. Pulmonary/Chest: Effort normal. Neurological: She is alert and oriented to person, place, and time. Skin: Skin is warm and dry. Psychiatric: Tearful Thought content + delusions, no SI/HI Nursing note and vitals reviewed. RESULTS EKG orders: None Radiology orders: None Procedures ED COURSE A medical screening exam was performed. Patient is 28-year-old female with history of unspecified psychosis, presents to the ED via EMS after being found screaming and crying on a sidewalk, left AMA [facility] last night at 1900. Patient initially agitiated but redirectable History difficult, +delusions Crisis consulted, patient EEd, and Dr. Wang agrees. LOGISTICS TEAM LEADER meds ordered. Signed out pending placement. Final diagnoses: None DISPOSITION: No disposition on file The patient's pain was managed to an adequate level weighing risk vs. benefit of further medications. Upon departure from the Emergency Department, the patient's pain was 4 on a zero to ten scale. Any further pain treatment will be at the discretion of the provider following up with the patient based on their clinical assessment. Condition at departure from the Emergency Department: Stable PCP: Sana Muhammad [facility] Shireen Coyle was available for supervision. 11/15/2018 11:07 No flowsheet data found. Nancy Mcnair MD - 11/15/2018 0634 EDT Informed pt of need for urine sample when able. Pt sitting calmly in bed, making bizarre statements to sitter about how she could read the sitter's thoughts and she was in hell. However when approachedby registration pt able to answer appropriately. Pt watching TV, telling this RN I am having an experience, what they're showing on TV is exactly what I went through before. Encouraged pt to turn offTV if she found it distressing. Pt denying further needs at this time. 1:1 maintained for safety. Nancy wasserman MD - 11/15/2018 0600 EDT Assumed care of pt. Pt appearing tearful, hyperverbal and distressed on initial approach. Loud, wailing, religiously preoccupied with loose associations. Making statements about how she created God, and how The end is coming. When asked about the grass on her clothing pt saying Yes, I've been rolling around in my own personal hell. Pt stating that someone she knew is putting humans inside of animals, he put an animal in my friend and now she's part bird. Pt endorsed taking her home medications, But I need a shit ton more, just give me a lot of everything. Pt also talking about how the doctors upstairs started getting a look on their face, and then I knew they were impersonators. Notably, when asked triage questions pt oriented, able to answer questions in a calm, linear, organized manner. Pt not answering questions SI/HI/AVH however making statements about how she felt she was danerous and don't let me around people. Pt able to follow directions appropriately, changing into hospital approved scrubs. Belongings labeled and stored per protocol. 1:1 initiated for safety. W ill continue to monitor. documented in this encounter Miscellaneous Notes Plan of Care - Veronika Castle RN - 11/30/2018 0951 EDT Problem: Daily Care Plan Goals Goal: Care Plan Documentation Flowsheets (Taken 11/30/2018 0830) Area of Focus: Discharge Plan Goal This Shift: Pt will understand d/c instrutcions Note: Nursing Discharge Note D: Patient noted with discharge orders to: ASSIST. A: Prescriptions faxed to pharmacy. Reviewed discharge instructions and prescriptions with Patient Belongings collected and sent home with patient. R: Patient verbalized understanding of discharge instructions and denied further questions. Veronika Castle RN 11/30/2018 9:50 lan of Care - Mildred Chang RN - 11/30/2018 0510 EDT [id number]: pt spent 1st 2 hours in her room making sure her make-up was just right before discharge,looking forward to leaving; pt calm and cooperative, future oriented; pt asleep at 0400, as of 0600 pt slept 2.25 hours this shift, 4 hours/24 lan of Prerna Mercedes RN - 11/30/2018 0249 EDT Problem: Daily Care Plan Goals Goal: Care Plan Documentation Outcome: Ongoing Flowsheets (Taken 11/30/2018 0000) Area of Focus: Sleep Goal This Shift: Pt will obtain adequate sleep. (6 consecuative hours) Note: Data: Pt awake in the suazo at start of the shift. I'm feeling manic Remains up socializing with peer. Action: administered medication, monitor for safety. Response: Pt did her makeup elaborately. Took melatonin and is calmly reading magazines in her room.No sleep yet/ Prerna Pereira RN 11/30/2018 2:43 lan of Matilda - Starr Hernández - 11/29/2018 2220 EDT Data: Accepted care of patient at 1800. Pt ate dinner in her room, socialized with a peer, fell asleep. Awakened and reported feeling possessed again and I was contorting again. Asked for this underwriter to sit with her and for ativan PRN. Belongings packed for discharge tomorrow. Denies SI/HI/AH. Reports VH. Denies pain currently. Action: 1:1 support, monitored for safety, Meds as ordered. Med education. Response: Safe on unit. Had some questions about lithium and these were addressed. STARR HERNÁNDEZ RN 11/29/2018 22:20 lan of Nadine Crane RN - 11/29/2018 1225 EDT Problem: Daily Care Plan Goals Goal: Care Plan Documentation Flowsheets (Taken 11/29/2018 0730) Goal This Shift: Pt will maintain safety on the unit Data: Pt displayed a stable affect this shift. Polite and pleasant when engaging with RN and staff. Engaged in PCR and reports that she would ideally like to discharge today but is okay with waiting until tomorrow . Action: Pt remains involuntary, frequent observation, DAT 4 at this time. Provide 1:1 therapeutic support as needed, administer medication as ordered, continue to monitor safety and assess SI/HI/AHVH, encourage groups throughout the day. Response: Pt denies SI/HI/AHVH and pain at this time. Pt maintained safety on the unit; will continue to monitor. NADINE RODRIGUEZ RN 11/29/2018 12:26 lan of Care - Camilo Dash RN - 11/29/2018 4451 EDT Problem: Daily Care Plan Goals Goal: Care Plan Documentation Flowsheets (Taken 11/28/2018 2970) Area of Focus: Sleep Goal This Shift: Pt will sleep adequate amount this shift (6-8 consecutive hours) Data: Pt asleep at start of shift. Appeared asleep until approx. 0245, when she was seen in milieu getting a glass of water. Shortly after, pt came to nurses' station requesting to see her nurse. When speaking with pt, she stated I feel bizarre, but was unable to further explain this feeling. When asked if she felt safe on the unit, pt repeated I just feel bizarre. Pt blunted, but pleasant duringinteraction. Pt then watched TV in kitchen, and returned to bed approx. 30 minutes later. Action: Offered 1:1 support. Offered PRN meds per MAY. Encouraged pt to utilize coping tool. Response: Pt received PRN ativan. Appeared asleep approx. 30 mins after dose of ativan. Pt appeared to sleep 5.5 hrs this shift, 6 hrs out of 24hrs. CAMILO DASH RN 11/29/2018 5:53 lan of Care - Yamil Mac RN - 11/28/2018 2640 EDT Problem: Daily Care Plan Goals Goal: Care Plan Documentation Outcome: Met This Shift Flowsheets (Taken 11/28/2018 1630) Goal This Shift: Pt will remain safe on the unit Data: Pt is social on the milieu. Reported she finds lithium helpful. Pt stated she is excited aboutpossible discharge Wednesday or this week. Pt is medication compliant, denies SI/HI, and feels safe on the unit. Complained of 7/10 jaw pain administered Tylenol, pain decreased to 3/10. Action: Monitored for safety. Assessed for SI/HI/Pain. Administered medications. Response: Remained safe on the unit. Med compliant. Denied SI/HI. Able to make needs known. YAMIL MAC RN 11/28/2018 22:21 lan of Care - Veronika Castle RN - 11/28/2018 1316 EDT Problem: Daily Care Plan Goals Goal: Care Plan Documentation Flowsheets (Taken 11/28/2018 3545) Goal This Shift: Pt will remain safe on the unit Note: Data: Pt teary at start of shift stating, talking w 1:1 and lying in the comfort room. Pt states that she hasn't slept in 17 days and needs some 'real' sleeping meds. Pt states, 'I can't hear my own thoughts but other people can hear my thoughts.' Pt requesting to change rooms, requesting medication for hemorrhoids. When asked if she would feel safe without a constant observer she stated, 'can someone sit with me at night to keep the light on?'. This RN assessed that pt felt safe on the unit. Pt medcompliant, PRN ativan for anxiety, scheduled Tylenol for pain. Pt w broad range of emotion during shift. Teary at times, laughing and joking at times, serious and somnolent at times. Denies SI/HI and c/o 5/10 neck/back pain. Action: Assessed pt for safety. Communicated with team about d/c of constant. Engaged in conversion,supportive 1:1 to build report, assessed for SI/HI/pain, monitored for safety, administered medications per order (see eMAR), offered support based on pt strengths. Response: Pt has remained safe on the unit. Medication for hemorrhoids ordered and pt stated she would, 'use them after the Tucks pads.' Melatonin ordered for sleep and pt states, 'no, I need some realsleep meds.' Will continue to monitor pt on frequent observation. Veronika Castle RN 11/28/2018 13:09 lan of Care - Lea Dickens RN - 11/28/2018 0434 EDT Data: Pt appearing asleep at beginning of shift, no complaints or needs voiced. Is fearful of male peer on unit so will not reside in her room, rather she has moved into [facility]. Became paranoid of sitter at 0530 stating she had stolen her zaida soul and that Shaquille is . Accepted PRN ativan, was noted to be tearful. Action: Monitored for safety on unit, available for needs, promoted sleep. Response: Pt appeared to sleep 2.5 Hours. lan of Matilda - Cherise Mcclain RN - 11/27/2018 1846 EDT Data: Patient out on the unit - co-operative and pleasant. Action: 1:1 - kept safe on unit Response: Spoke about her delusions and how she feels that two other patients suck her thoughts fromher and that is very disturbing to her, rates her depression and anxiety 10/10. Cherise Mcclain RN 11/27/2018 18:46 lan of Matilda - Veronika Castle RN - 11/27/2018 1548 EDT Problem: Daily Care Plan Goals Goal: Care Plan Documentation Outcome: Ongoing Flowsheets (Taken 11/27/2018 8433) Goal This Shift: Pt will remain safe on the unit Note: Data: Pt asleep in quiet room at start of shift. Upon awakening, pt in positive mood, asks for needsappropriately, good PO intake. Pt took a shower and shaved, was med compliant. Pt c/o constipation and took PRN bowel meds. Pt reports painful hemorrhoids. MD Cuello made aware. Tucks pads offered. Pt refused 1200 Tylenol and stated, 'it backs me up.' Action: Engaged in conversion, supportive 1:1 to build report, assessed for SI/HI/pain, monitored for safety, administered medications per order (see eMAR) including PRN ativan q4, offered support based on pt strengths. Response: Pt had 2 self reported bowel movements. Pt was offered TENS unit but declined and stated her pain is a little better today. Veronika Castle RN 11/27/2018 15:17 lan of Care - Shelia Silva RN - 11/27/2018 0614 EDT Data: Patient presented with bedtime fear, insomnia and restlessness this shift, she slept for ~1 hrintermittently in spite of intervention. Action: Monitor for safety and promote sleep. Administer medication per patient request. Response: Patient remain safe on constant. She remain delusional, currently asleep. Will continue tomonitor. Shelia Silva RN 11/27/2018 6:14 lan of Care - Veronika Castle RN - 11/26/2018 203 EDT Problem: Daily Care Plan Goals Goal: Care Plan Documentation 11/26/20182021 by Veronika Castle RN Flowsheets (Taken 11/26/2018 0836) Goal This Shift: Pt will remain safe on the unit Note: Data: Pt spent time in quiet room listening to music, putting on makeup and painting w peers on the porch. Pt mood at beginning of shift paranoid and anxious stating about a peer, 'she's eating my soul'. Pt also stated that she had written a letter retracting the restraining order on her ex-boyfriend.After nursing non-pharmalogic interventions, pt affect became positive and pt did not appear paranoid or anxious. Nursing interventions included: provided essential oils in quiet room, provided pt w TENS unit which she tolerated for 15 minutes. Pt med compliant. Action: Engaged in conversion, supportive 1:1 to build report, assessed for SI/HI/pain, monitored for safety, administered medications per order (see eMAR), offered support based on pt strengths. Response: Pt has remained calm and composed for most of the shift. No c/o SI/HI. Pt endorses AH of birds in her head. C/o neck and back pain 07/15. Veronika Castle RN 11/26/2018 20:23 lan of Care - Veronika Castle RN - 11/26/2018 1357 EDT Problem: Daily Care Plan Goals Goal: Care Plan Documentation Outcome: Ongoing Flowsheets (Taken 11/26/2018 9436) Goal This Shift: Pt will remain safe on the unit Note: Data: Pt slept in quiet room overnight and was asleep at start of shift. Upon awakening, pt requested results from previous lab draws. This RN reviewed results and pt stated, 'I need medications. Clearly my body is ok and my mind is not.' Pt accepted PRN ativan with morning meds. Pt stated she has nothad a BM in 2 days, accepted senna and colace. Pt requested suppository but was educated by this RN about allowing time for PO meds to work first. Pt expressed delusions to RN about being taken over bya stink bug, birds singing in her ears and satan present in her life. Thought process scattered and hard to follow. Constant observer with pt for safety. Pt pleasant, cooperative, calm and composed formost of shift. Action: Engaged in conversion, supportive 1:1 to build report, assessed for SI/HI/pain, monitored for safety, administered medications per order (see eMAR), offered support based on pt strengths. Response: Pt remains safe on the unit. Veronika Castle RN 11/26/2018 13:53 lan of Care - Shelia Silva RN - 11/26/2018 0630 EDT Data: Patient presented with bed time fear and insomnia. She remain delusional and believes she's not a human because she doesn't have a a soul. She endorse seeing the demon and lucifer and her room and body smell. This nurse validate patient feeling and redirect her, but she remain adamant that she doesn't belong to this world and would like to be euthanized. When assessed for suicide plan and intent she went in a tangent with flight of ideas, but acknowledged she was feeling anxious. She slept for 2.25 hrs this shift. Action: Monitor for safety and promote sleep. Allow patient to spend the night in the quiet room to decrease stimuli. Administer PRN medication and provide 1 - 1 therapeutic support. Response: Patient remain safe on constant observation. No request for PRN pain medication. Will continue to monitor. Shelia Silva RN 11/26/2018 6:31 lan of Care - Shelia Silva RN - 11/25/2018 2136 EDT Data: Assume patient care at 19:30. Patient presented with labile affect this shift. She was singingand dancing in the quiet room at start of the shift. She denies pain or any discomfort. Patient requesting to talk to a fraud manager around 20:30. Called was placed by day camp unit leader and they say someone will attempt to see her tonight or tomorrow. She was updated by both day camp unit leader and this nurse. She continues to insist that we call pastoral care multiple times. Patient was encouraged to use coping mechanism for anxiety. Action: Monitor for safety. Assess for pain, mood, anxiety, affect. Assisted with needs and provide therapeutic support. Administer medication as scheduled. Response: Patient remain safe in the milieu. Will continue to provide emotional support. Shelia Silva RN 11/25/2018 21:36 lan of Care - Gloria Abraham RN - 11/25/2018 1849 EDT Data: Continued care of patient [id number]. At ~1630, patient requested to speak to MD immediately. Patient appeared fearful, anxious. Patient reported looking a stink bug in the eyes on the porch, and it possessing her body. Patient said it inside of her, and she requested to be euthanaised. Patient reported I need to kill myself. Patient unable to contract for safety. MD paged and notified. Patient agreeable to take prn atarax. Patient took her malleable metal bracelet off her wrist and straightened it out. Patient crying, brought end of bracelet to her neck and applied pressure to her neck. RN was able to take away bracelet, and patient willingly gave up her other bracelet and metal rings. MD JUAN at bedside. Action: Constant observation initiated due to patient inability to contract for safety. Monitored patient for safety and assessed for SI/HI/pain, A/V hallucinations. 1:1 support. Encouraged deep breathing, meditation to reduce anxiety. PRN ativan 1 mg administered. Provided patient with Healing Touch, raking negative energy out of patients energy field. Coordinated care with treatment team, administered medications as ordered and monitored for mood, behavior, and safety. Response: Patient reported believing the bug has left her, after interventions done. Patient remainslabile, tearful. Reports fearfulness and not feeling like herself still. Singing to Rose music is quiet room with 1:1. Patient remains safe on unit. Plan of Care - Gloria Abraham RN - 11/25/2018 1333 EDT Data: Assumed care of patient at 0700. Patient was awake, sitting in the activity room with a peer. Makeup smeared on her face, appeared to have been crying, requested to be left alone, and requested we stop stealing it. Patient presented with a depressed, fearful mood, anxious affect. When asked about thoughts of SI, patient replied I'm already . Demonstrated paranoid delusion regarding the patient in the room next to her stealing my thoughts all night. Patient endorsed visual hallucinations of tentacles coming out of the vents and out of the estrada, they'll suck our your soul without you even realizing. Patient was appreciative of atarax brought with her morning medications, med compliant. Patient continued to discuss her spiritual abilities with RN, stated having a confessional to RN is helpful. RN later asked patient if it would help her to see [facility]- patient declined, stated no, but it will help them to come see me. Action: Frequent observation. Monitored patient for safety and assessed for SI/HI/pain, A/V hallucinations, provided 1:1 supportive listening. PRN atarax for anxiety. Encouraged coping skills - utilizing quiet room, journaling, time on porch. Coordinated care with treatment team, administered medications as ordered and monitored for mood, behavior, and safety. Response: Patients grandmother visited in sports lawyer. Patients affect appeared brighter and less fearful after visit, and she reported feeling better. Patient has been visible in milieu, able to make needs known. Patient observed coloring with peers and having multiple positive interactions with p eers. Good appetite. Good ADLs. Patient went to garden this afternoon. Behavior in control, remains safe on unit. Continue to monitor for changes in mood, behavior, and safety. lan of Care - Sylvie Black RN - 11/25/2018 0534 EDT Problem: Daily Care Plan Goals Goal: Care Plan Documentation Flowsheets Taken 11/25/2018 0534 Area of Focus: Sleep Taken 11/25/2018 0330 Goal This Shift: Patient will have adequate sleep this shift Data: Assumed care at 0300. Patient observed to be awake at start of shift. Spent time in the quiet room dancing and listening to music. Appears to have slept in own bed later in shift. Medicated for headache with prn apap at 0321. Action: FREQUENTS, INVOLUNTARY, LEVEL IV. Observed for safety, monitored for sleep. Sleep and safetypromoted. Available for needs. Response: Remained safe throughout the shift. As of 0600 patient appears to have slept 2 hours for a24 hour total of 4.25. Sylvie Black RN 11/25/2018 5:34 lan of Care - Shakir Baxter RN - 11/25/2018 0240 EDT Problem: Daily Care Plan Goals Goal: Care Plan Documentation Flowsheets (Taken 11/24/2018 0338) Area of Focus: Safety Goal This Shift: Patient will remain safe on the unit Note: [id number] Data: Locus of harm level 4. Patient was sitting by the karoline port at change of shift. Patient stated I'm not going back to my room. Expressed being afraid that the patient in room next to her own would possess her soul. Patient reported hearing his voice in her mind. Patient was agreeable to movingto the milieu instead of being in front of the doors. Patient then moved to the hallway and sat on the ground by the whiteboard. Patient accused staff of being Satanists and expressed paranoia that certain people around her were trying to steal her soul and harm her. Patient appeared to be hearing voices while talking to this underwriter. Action: Monitor for safety. Frequent observation. One to one offered. Provided reassurances of safety. PRN Atarax and Melatonin for sleep. Offered the comfort room and quiet room. Response: Patient tried to sleep on the porch and then in the hallway. Patient also tried to sleep in the quiet room but quickly left and stated she saw a red and green lost soul. Patient returned tothe comfort room. MD informed of patient's worsening symptoms. Now x 1 dose of Vraylar ordered and given to the patient. Shakir Baxter RN 11/25/2018 2:27 lan of Care - Julián Gan RN - 11/24/2018 2302 EDT Data: Assumed care at 1930. Patient is alert and oriented, presents as calm and cooperative and social with peers in milieu. Patient spent most of shift in milieu with peers or on porch, denied needs and was compliant with scheduled medications. Patient's mood is good, affect is congruent. Able to make needs known. Action: Frequent observation maintained Response: Patient remains present and ambulatory on unit, will continue to monitor. JULIÁN GAN RN 11/24/2018 23:03 lan of Care - Lea Correia, RHODA - 11/24/2018 1853 EDT Data: Time of care 1530 to 1930. Pt continues as involuntary level 4 on frequent observation. Broad range of affect, good eye contact, pleasant during each interaction with RN. Pt reports abdominal pain and nausea due to constipation. Declined to rate pain. Tums given per order (see MAR) with effect. Pt stated It feels a lot better now. Denied passing BM. Female peer was heard yelling on the unit. Mary Grace expressed empathy, stating It's hard to be here. I want to help, but I know that I shouldn't. This underwriter provided support, redirected to the [facility] for a quieter environment. Pt declined scheduled ibuprofen due to GI upset (see MAR). No risk of SI/SH/HI reported or observed. Thought process linear, reality based during time of care. Action: Safety maintained through observations as ordered. 1:1 offered, received. Assessed for mood,affect, pain. Ongoing support offered by RN throughout shift. Medications administered as ordered (see MAR). Response: Pt interacted appropriately with staff. Ambulatory on unit. Able to make needs known. Behavior remained in good control. Lea Correia RN 11/24/2018 18:53 lan of Care - Jania Mason RN - 11/24/2018 1315 EDT Data: Pt isolative to room this morning, reporting that she did not sleep well. Pt denies pain. Pt initially denies SI/HI. Pt does endorse visual hallucinations of tentacles in ceiling vent with littlewhite eyes. Pt also reports auditory hallucinations in the form of many of her voices coming from another patient. Pt ruminative regarding this peer and reports she is fearful of her. Pt exhibits signsof paranoia and delusion regarding the peer being able to read her mind. Later in the morning pt noted to be making SI statements over the phone to unknown listener. Pt endorsed passive SI to Gloria DUONG, stated I would be better off killing myself. Pt denied plan or intent. Action: Emotional support provided. PRN atarax given at 0820 and 1210. Scheduled medications given. New order noted to increase Cariprazine from 3mg to 4.5mg. Encouraged pt to identify ways she could cope. Offered the quiet room, RN spent time on porch with pt, offered safety plan regarding peer. Crystal PORTILLO notified of pt's SI, went to bedside. Response: Pt able to contract for safety regarding SI, remains safe on unit. Pt declined safety plan. Pt able to identify watching tv and napping as ways to cope currently. Pt compliant with medications. Pt observed to be calm in her room s/p atarax administration. Pt visible in milieu in suazo this afternoon but isolative to self. Pt comes to team station to make needs known. Pt did not attend any groups. Continue to mtr. Jania Mason RN 11/24/2018 13:15 sych Treatment Team - Loretta Varghese RN - 11/24/2018 0730 EDT Psychiatry Multidisciplinary Treatment Plan - Update Date: 11/24/2018 Time: 7:30 Estimated Discharge Date: 12/20/2018 IS THERE A CHANGE IN LEGAL STATUS?: No IS THERE A CHANGE IN DIAGNOSIS?: No Psychiatric Diagnosis: psychosis NOS, mood disorder NOS Note Type: Update ARE THERE NEW PROBLEMS?: Yes (add below and describe) PROBLEM LIST: PROBLEM: Kaya Kaya target symptoms: elevated/expansive mood, grandiosity, increased speech/increased speed of speech, flight of ideas, distractability and irritability Kaya initial goals: reduction in target symptoms, improved impulse control, acceptance of mood stabilizing medication, improved judgment and tolerance to medications PROBLEM: Psychosis Psychosis target symptoms: hallucinations, delusions, disorganized speech, disorganized behavior and feeling perplexed Psychosis initial goals: reduction in target symptoms, more organized thought process, decreased delusional thinking, acceptance of antipsychotic and improved insight Progress toward short-term goals/Response to Interventions: No improvement as of yet on cariprazine. LOCUS Risk of Harm: Current locus of harm: 4 Level of Patient Observation: Q 15 minutes (frequent) CHANGES IN TREATMENT PLANNING: MEDICAL: ARE THERE CHANGES IN TREATMENT PLANNING?: Yes (describe below) Other Medical. Optimize cariprazine, consider add lithium REASONS FOR CONTINUED INPATIENT TREATMENT: Poor Impulse Control, Inability to plan for safety, Disorganized/Bizarre Behavior, Progress since admission not sufficient to ensure adequate psycho-social functioning outside of the hospital and Need for adjustment and monitoring of medication dosage NURSING: ARE THERE CHANGES IN TREATMENT PLANNING?: No PSYCHOLOGICAL: ARE THERE CHANGES IN TREATMENT PLANNING?: No SOCIAL: COLLABORATIVE EFFORTS: Referral to TELEVISION ANTENNA INSTALLER services; coordination of care with family; person centered rounds with Mary Grace DISCHARGE PLANS: Discharge to home with supports Treatment Team Members RN: Iron Rodrigez RN Therapist: Alexander Hammer, PhD Automobile Mechanic Apprentice: SCOTT YOUNG PharmD: Attending physician statement/signature: Based on the information documented in this treatment plan update and in the medical record, I certify that: ??? Inpatient Psychiatric Hospital Services furnished since the previous certification or recertification were, and continue to be, medically necessary for either treatment which could reasonably be expected to improve the patient's condition or for diagnostic study. ??? As described in the medical record, the services furnished since the previous certification or recertification were, and continue to be, intensive treatment services, and or admission and related services necessary for diagnostic study. ??? As documented in the medical record, this patient meets, on a daily basis, active treatment furnished directly by or requiring the supervision of inpatient psychiatric facility personnel. ??? Treatment is expected to improve this patient's condition. Lyndsey Carter MD Attending Psychiatrist lan of Matilda - Mariposa Jacinto RN - 11/24/2018 0513 EDT Problem: Daily Care Plan Goals Goal: Care Plan Documentation Outcome: Ongoing Flowsheets (Taken 11/23/2018 2330) Area of Focus: Sleep Goal This Shift: sleep 6-8hrs Data: Pt woke at 0200 and was found crying in room stating Tanisha is the devil and shes taken myvoice and my baby! Pt is responding to IS and appears to be having visual hallucinations of a man she calls Jose in her room. Action: Atarax administered. 1:1 with patient reassuring her that she is safe on the unit. Response: Pt calmed within the hour and returned to her room whee she spent the rest of the night awake but calm. Mariposa Jacinto RN 11/24/2018 5:13 lan of Care - Felicia Tanner RN - 11/23/2018 1937 EDT [id number] Data: Patient was working with PT at the start of shift with the TENS unit. Patient reported that she found it helpful. Patient had 2/10 generalized pain and received her scheduled Ibuprofen. Patient did not attend group but did attend garden. Patient ate her dinner in her room. Patient's ex-boyfriendcalled the unit this shift and patient was in the garden. Patient was crying on this shift and wanted to talk the patient reported that another patient was stealing her voice and turned her son into a bird. The patient also stated that she either has to be removed from this floor or the other patient has to be because she can hear her thoughts in her room. Patient stated I have been dealing with this for nine years and this is the end we are all screwed. The patient stated that the other patient is the only patient on the floor who can do that. Patient stated when she got admitted she was all colorful inside and the other patient has stolen her color and she is black inside now. Patient also stated do you hear that yelling? When this underwriter replied no Patient stated it is because I am not in tune with it. Patient was able to calm down and accepted a PRN Atarax. Patient denies SI/HI/SH. Action: Assessed for signs and symptoms of pain, SI/HI/SH. Monitored patient for safety. Observationas ordered. Administered medications as ordered. Offered 1:1 support. Encouraged independence. Assessed for mood and depression symptoms. Encouraged groups and time out of room. Response: Patient compliant with medications. Able to make needs known. Behavior in control. Patientremained safe of the unit this shift. sych Safety Plan - Felicia Tanner RN - 11/23/2018 1622 EDT Individual Safety Treatment Plan 11/23/2018 16:22 Safety Issue/Concern regarding perceived threat: Per previous shift report patient exhibited threatening behavior towards peer SH. Final Safety Plan with Rationale: Patient was then moved to a room further down the suazo to decreasepossible interactions with other patient. Interventions chosen (Check) Environmental and Safety x Nurse to review with patient: what to do when you feel afraid of another patient x Frequent observation Constant observation x Relocation of patient to another room Relocation of patient closer to Team Station Discharge or transfer patient x Other: redirect PRN Clinical Coping Tool flow sheet updated with newly identified triggers/coping techniques Implementation of a Therapeutic Intervention Strategy x Safety Plan for any other patients involved x Address contributors of agitation such as physical pain and discomfort x Nurse reviewed expectations regarding violence on the unit Offering of sensory modulation items: Identify x Teaching patient about use of exercise room/comfort room x Patient Debriefing tool (regardless of EIP) x Discussed with team members: Other: FELICIA TANNER RN lan of Matilda - Annabelle Hill RN - 11/23/2018 1507 EDT Data: Pt labile, tearful at times. Pleasant and cooperative with room change and staff interactions.Pt reported constipation, PRN Colace and Senna utilized. Pt spent time in the comfort room listeningto music, dancing, and singing. Action: SI/HI/AVH/pain assessment. Administered meds per orders (see MAR). Monitored pt safety. Encouraged group participation.1:1 support provided. Coping mechanism education provided. Response: Pt endorses AVH, endorses auditory hallucinations. Denies any pain or discomfort. Medication compliant. Remains safe on unit. lan of Matilda - Angelica Perez RN - 11/22/2018 2345 EDT Data: Pt was resting in her bed at the start of shift. No signs of distress observed or reported. Ptrequested and received PRN Atarax at 0600. Pt displayed appropriate behavior. Action: Frequent observation continued as ordered for safety. Monitored for safety and sleep. Promoted sleep. Available for needs. Response: Pt remained safe on the unit throughout the shift. As of 0600 Pt is documented to have appeared to sleep for 2.75 hours this shift. 24 hour sleep total 2.75 hours. lan of Matilda - Felicia Tanner RN - 11/22/2018 2112 EDT [id number] Data: At the start of shift the patient met with PT concerning her generalized pain. Patient had 8/10 pain this shift and now gets scheduled Tylenol and Ibuprofen. PT will also bring a TENS unit for the patient to try. Patient has been isolative to her room this shift. Patient comes out of room occasionally to make delusional statement to a MHT that is sitting with another patient and then retreats to her room. This underwriter spoke with the patient regarding this and the patient has since stopped. Patient did not attend any groups and ate her dinner in her room. Patient denies SI/HI/SH. Action: Assessed for signs and symptoms of pain, SI/HI/SH. Monitored patient for safety. Observationas ordered. Administered medications as ordered. Offered 1:1 support. Encouraged independence. Assessed for mood and depression symptoms. Encouraged groups and time out of room. Response: Patient compliant with medications. Able to make needs known. Behavior in control. Patientremained safe of the unit this shift. lan of Matilda - Annabelle Hill RN - 11/22/2018 1430 EDT Data: Pt was standing on her bed at start of shift crying and yelling that she was raped in her sleep and staff were all stealing her light. Cadastral Surveyor gave pt space and she was able to self regulate. Labile, but mostly good mood the rest of the shift. Did not attend any groups. Good appetite. Action: SI/HI/AVH/pain assessment. Administered meds per orders (see MAR). Utilized PRN Colace. Monitored pt safety. Encouraged group participation.1:1 support provided. Medication education provided. Response: Pt endorses auditory, visual, and tactile hallucinations. Denies any pain or discomfort. Medication compliant. Remains safe on unit. lan of Matilda - Orlin Fraser RN - 11/22/2018 0418 EDT D: Assumed care of patient at 2330, patient was sleeping in her bed during patient centered report and remained so for the duration of the shift, no emotional outbursts or events this shift, patient remains able to make needs known A: Monitored patient safety/VS/pain/concerns, made self-available for needs, promoted restful sleep throughout the shift R: Patient remained safe on the unit throughout the shift, No concerns were observed by this underwriter or reported by the patient, as of 0600 the patient appeared to sleep 6.75 hours this shift lan of Matilda - Nikita Vincent RN - 11/21/2018 1019 EDT Data: Social with peers. Ate in the milieu. Attended garden and group. Discussed feeling depleted.Crying at times. Described things she was seeing and experiencing that other people are unable to see. Requested PRNs for back pain, anxiety due to having a really hard time right now, sleep and nicotine replacement, see MAR. Action: Engaged in conversation. Supportive 1:1 to build rapport. Assessed for SI/SH/HI/pain/AH/VH. Monitored for safety. Administered medications per order. Offered support based on pt's strengths. Response: Pt remains safe on unit. Will continue to monitor. NIKITA VINCENT RN 11/21/2018 22:59 lan of Matilda - Annabelle Hill RN - 11/21/2018 1506 EDT Data: Pt involuntary admission, DAT 4 on frequent observation. Pt's mood is labile, tearful at times. Appropriate behavior displayed, pleasant and cooperative with staff. Pt declined to attend group therapy. Pt was isolative to room. Adequate meal intake this shift. Pt had family visit this shift. Pt s tarted on Cariprazine today, was hesitant to take it at first due to the possible side effects, medication education provided. Action: SI/HI/AVH/pain assessment. Administered meds per orders (see MAR). Monitored pt safety. Encouraged group participation.1:1 support provided. Response: Pt endorses visual hallucinations, appears to be responding to internal stimuli/AH as well. Medication compliant. Remains safe on unit. lan of Care - Orlin Fraser RN - 11/21/2018 0230 EDT D: Assumed care of patient at 2330, patient was sleeping in her bed during patient centered report and remained so for more than half the shift, upon waking patient remained in her room lying on her bed writing in her notebook, she later tended to ADLs and went in her room watching TV for the durationof the shift, patient denies SI/HI, patients thought content remains delusional, no emotional outbursts or events this shift, patient remains able to make needs known A: Monitored patient safety/VS/pain/concerns, made self-available for needs, promoted restful sleep throughout the shift R: Patient remained safe on the unit throughout the shift, No concerns were observed by this underwriter or reported by the patient, as of 0600 patient appeared to sleep for 4.25 hours this shift lan of Matilda - Nikita Vnicent RN - 11/20/2018 2211 EDT Data: Mary Grace described feeling depleted with everything she is experiencing. Reported visual hallucinations that were distressing. Hopeful to talk with her treatment team about medications to support symptom management. Took all medications as prescribed. Denies thoughts of suicide, homicide or self harm. Action: Engaged in conversation. Supportive 1:1 to build rapport. Assessed for SI/SH/HI/pain. Monitored on frequent observation for safety. Administered medications per order. Offered support based on pt's strengths. Response: Pt remains safe on unit. Will continue to monitor. NIKITA VINCENT RN 11/20/2018 22:11 lan of Matilda - Nadine Rodriguez RN - 11/20/2018 1330 EDT Problem: Daily Care Plan Goals Goal: Care Plan Documentation Outcome: Ongoing Data: Pt was isolative to self throughout the morning. Compliant with scheduled medication. Requested to see an MD because my hallucinations are getting so much worse and no one came to see me last night because no one gives a shit. Pt explained that she is seeing my grandmother suck the souls out of people and was gesturing to the ceiling. Completed all ordered lab work without issue. Action: Pt remains involuntary, frequent observation, DAT 4 at this time. Provide 1:1 therapeutic support as needed, administer medication as ordered, continue to monitor safety and assess SI/HI/AHVH, encourage groups throughout the day. Response: Pt denies SI/HI and pain at this time. Continues to endorse AH/VH throughout the shift; MDaware. Pt maintained safety on the unit; will continue to monitor. NADINE RODRIGUEZ RN 11/20/2018 13:30 lan of Mildred Woodward RN - 11/20/2018 0309 EDT Data: pt asleep at change of shift and appeared to sleep well until 0330, was anxious, reported increased hallucinations but did not want to discuss with this nurse, asked to see MD but was able to go back to sleep by 0445 Action: frequent observations, available for needs, atarax 25 mg given 034, Dr. Plata paged with patient's concerns Response: as of 0600 pt slept 5.5 intermittently 5.5 hours this shift, 6.5 hours/24 MILDRED CHANG RN 11/20/2018 3:09 lan of Care - Cherise Mcclain RN - 11/19/2018 1754 EDT Data: Patient out on unit and on porch socializing with peers, isolated the latter part of the evening in her room. States that she feels drained. When asked if she would like to do the testing with the swab she stated that she would like a doctor to do it with a speculum because she doesn't even put a tampon there., declined to do the testing on herself. Patient isolative in room drawing and journalling in the latter part of the evening. Action: 1:1 - kept safe on unit - application systems administrator made aware with a manager client service.consult to follow up Response: Patient spoke about her auditory and visual hallucinations stating believe me they are there - states she feels things crawling on her and sees burn cook on herself. Rates her depression and anxiety as over 10 on 10 - also spoke about breaking up with her boyfriend and that she feels better that he is not in her life. Cherise Mcclain RN 11/19/2018 17:54 lan of Matilda - Bria Cheung RN - 11/19/2018 1445 EDT Data: Pt is out on porch in am social with another male peer eating breakfast. She denies pain. Compliant with am medications. When asked if she is having any SI pt states that she is being spiritually raped. She is observed speaking to manic female peer on 1:1 at times during the shift but denies to me there is any problem. Pt angrily states that she has been denied a manager client service exam here and says that there is still an odor from her vagina. She denies having discharge. She denies UTI symptoms. Pt also spoke with attending concerning this matter. Vaginal swab tests ordered and specific swabs obtained from microbiology. Per MD application systems administrator CHIEF OF STAFF DOCTOR states pt can conduct these swabs herself with instruction. Pt later in shift is overheard on phone with her grandmother hysterical. She reports that female peer is following her around unit and targeting her. Pt is offered a constant obs but states they won'tdo anything. Pt says grandmother is evil and is the one causing problems bw her and female peer on unit. Pt is instructed to come to nursing val if pt approaches her again. Female peer is on 1:1 obs. Action: monitored for safety on unit, medications per order, supportive interaction, available for needs Response: remains safe this shift. Pt is delusional and labile. Will continue to monitor Bria Cheung RN 11/19/2018 14:45 lan of [facility]ilda - Sudha Orozco RN - 11/18/2018 2350 EDT Data: 28 y/o female with dx of Psychosis, LOS 3 days, (readmit), Involuntary, DAT 4, asleep on initial rounds Action: Provided with a safe and calm environment to promote sleep, Frequent safety checks Response: pt appeared to sleep soundly throughout the night for a total of 6.75 hrs . Frequent safety checks continued SUDHA OROZCO RN 11/18/2018 23:50 lan of Judy Valenzuela RN - 11/18/20182137 EDT Care of patient from [id number] Patient watching T.V. in the dining room this evening with another peer. Calm and pleasant during interaction. Patient has remained safe on the unit. Judy Bledsoe RN 11/18/[id number] lan of Starr Sims - 11/18/20181957 EDT Data: I want to be on a diet restriction. I need to change my lifestyle. I need you guys to tell me not to eat the gluten-free carrot cake. I can't control myself. Per patient's report, pt interested in reducing trans fats, processed carbs, and sugar in her diet. Decided on foods she would like to eat and these were relayed to the medical claims processor who stated that meals could be based on patient's written preferences. put in nutrition consult. No delusional content endorsed this afternoon. No SI/HI/AVH reported. No pain reported. Action: Lifestyle choices discussion. Monitored for safety. Response: Safe on unit. STARR EHRNÁNDEZ RN 11/18/2018 19:58 lan of Care - Gloria Abraham RN - 11/18/2018 1352 EDT Data: Involuntary admission, frequent observation, DAT 4. Patient was awake at start of shift, had showered and was watching tv. Patient was distressed and tearful this morning, stated I feel like I'mbeing spiritually raped. Patient was perseverative about a peer being a snake, not the good kind like ancient snakes, but like the devil., expressed feeling depleted due to this individuals presence on the unit. Patient denied thoughts of harming others, or harming herself, denied SI. Patient endorsed AH of seeing animals and light. Patient was medication compliant. Good appetite. Patient endorsed generalized pain, declined interventions. Action: Monitored patient for safety and assessed for SI/HI/pain, A/V hallucinations, provided 1:1 supportive listening, encouraged groups. Assessed need for patient to have safety plan on unit, patient declined need at this time. Encouraged ADLs. PRN atarax administered for anxiety. Coordinated care w [facility] treatment team, administered medications as ordered and monitored for mood, behavior, and safety. Response: Patients behavior has remained in control. Coming to team station to make needs known. Patient attended morning group, visible in milieu but mostly isolative to herself. Assisted RN in changing her bed linens. Patient appeared calmer after atarax administered, patient reported feeling no effect or change from the medication. Patient napped this afternoon. Patient remains safe on unit. Continue to monitor. ADDEMDUM: Patient reported feeling not okay this afternoon. Spoke on the phone with brother Maddy.Requested prn atarax. Met with Dr Carter and RN, requested to go outside to help her cope. Received order for patient to go to private garden with staff. Oncoming RN aware of plan. lan of Care - Prerna Pereira RN - 11/18/2018 0622 EDT Problem: Daily Care Plan Goals Goal: Care Plan Documentation Outcome: Met This Shift Flowsheets (Taken 11/17/2018 2300) Goal This Shift: Pt will obtain adequate sleep Note: Data: Pt socializing with peer at start of the shift. Action: Monitor for safety, assess sleep quality and quantity of sleep. Response: Pt asleep at 2345 and slept through the shift. 6.25 hours of sleep as of . Prerna Pereira RN 11/18/2018 6:20 lan of Care - Alondra Farley RN - 11/17/2018 2220 EDT Problem: Daily Care Plan Goals Goal: Care Plan Documentation Outcome: Met This Shift Flowsheets (Taken 11/17/2018 1700) Area of Focus: Safety Goal This Shift: Patient will remain safe on the unit Data: Assumed care [id number]; Patient was in group at start of shift. Patient involuntary admission,DAT 4, on frequent observation. Currently resting in bed. Patient denies SI/HI. States that she onlyhears and sees things that are not there when she is around a particular patient- which she would not specify. Claims that she is telepathic. Has chronic pain, but did not request anything for it. Muchmore organized this shift, future-orientated, has a good appetite, and is tending to ADLs appropriately. Did report that she felt like something was off ???down there?? and said ??? a woman knows whenthings aren't right down there?? implying urinary/vaginal discomfort. Patient stated that she thought she might be , and reported that she was lactating, patient spoke with the doctor who ordered a urine test with abnormal results, and prolactin level- results pending. Paged the Dr application systems administrator requesting antibiotics, awaiting order now. Patient was observed to be social with peers, no episodes of conflict this shift. When assessing this patient at the start of the shift it was found that she had shoes with laces, laces were removed, shoes were returned. Supportive 1:1 accepted. Displays restricted affect. Compliant with medications as ordered. Action: Assessed for mood, affect, and pain. Ensured continued safety in the environment throughout the shift. Continued to offer 1:1 throughout shift. Continued to engage in active listening and therapeutic communication. Assisted patient with ADLs as needed. Encouraged groups. Offered medications asordered and monitored for any side effects. Encouraged patient to utilize positive coping techniques. Response: Patient interacted appropriately with staff and peers. Attended group. Visible in milieu. Able to make needs known. Behavior in control. Does not voice any needs or concerns at this time. Continues to be safe on the unit Alondra Farley RN lan of Care - Rosa Isela Ochoa RN - 11/17/2018 1149 EDT Data: Data: Pt in her room at the change of this shift. Room in slight disarray.Pt c/o of generalized aches and pain, Later in shift requested tylenol and a heat pack for 10 /10 generalized discomfort.Denies si, hi and hallucinations. Feels she can read other's thoughts . Pt seen eating (Two breakfast) , drinking, talking with staff and family. Pt appreciative of care and stated I feel like I am being heard. Pt attended PCR,needs made known, changed to frequent obs with a safety plan in case pt C.L. Bothers her by following her or talking too much. Pt seen at 1230 talking with C.L. - pt asked ifshe needed any assistance, she stated No thank you. Later pt stated C.L.is calm this shift. Encouraged pt to notify staff if she feels uncomfortable. Action: Offer 1:1 support , encourage group, safety plan Response: Pt engaging, making needs known, eating drinking and m/c . Pt seen interacting with other's ., calm and pleasant.monica Ochoa RN 11/17/2018 12:09 sych Safety Plan - Rosa Isela Ochoa RN - 11/17/2018 1136 EDT Individual Safety Treatment Plan 11/17/2018 11:36 Safety Issue/Concern regarding perceived threat: Pt does not like C.L. Following her. Final Safety Plan with Rationale: Interventions chosen (Check) Environmental and Safety * Nurse to review with patient: what to do when you feel afraid of another patient * Frequent observation Constant observation Relocation of patient to another room Relocation of patient closer to Team Station Discharge or transfer patient Other: relocation had already occurred Clinical Coping Tool flow sheet updated with newly identified triggers/coping techniques * Implementation of a Therapeutic Intervention Strategy Safety Plan for any other patients involved Address contributors of agitation such as physical pain and discomfort Nurse reviewed expectations regarding violence on the unit Offering of sensory modulation items: Identify Teaching patient about use of exercise room/comfort room Patient Debriefing tool (regardless of EIP) Discussed with team members: Other: Pt will remove herself from contact with this person, get staff if needed and go to her roomfor privacy. jw Rosa Isela Ochoa RN sych Treatment Team - Loretta Varghese RN - 11/17/2018 0830 EDT Psychiatry Multidisciplinary Treatment Plan - Initial Date: 11/17/2018 Time: 8:30 Date of Admission: 11/15/2018 Legal Status: Involuntary Estimated LOS: 10 days Infection Control Issue: No DIAGNOSIS: Principal Dx: F29 Unspecified Psychotic Disorder. [facility] Guideline: 9 days Problem List: Active Hospital Problems Psychosis ([facility]) Patient's Strengths: Supportive family and Medically stable Patient's Weaknesses: Vulnerability to psychological stress BASELINE LEVEL OF PSYCHOSOCIAL FUNCTIONIN-year-old unemployed mother of a young son Note Type: Initial PROBLEM LIST: PROBLEM: Psychosis Psychosis target symptoms: hallucinations, delusions, disorganized speech, disorganized behavior and feeling perplexed Psychosis initial goals: reduction in target symptoms, more organized thought process, decreased delusional thinking, acceptance of antipsychotic and improved insight TREATMENT PLAN: MEDICAL INTERVENTIONS: Psychiatric Evaluation, Daily contact with patient for Evaluation and Management, Daily meeting with multidisciplinary team to review patient's progress and Pharmacological Management MEDICAL EXPECTED OUTCOMES AT TIME OF DISCHARGE: Diagnostic clarification, Adequate control of impulses, No violent behavior, Reduction of target symptoms, enough to safely transition to a less restrictive level of care., Adequate initial clinical response to pharmacological treatment and Insight gained on patterns of maladaptive behavior NURSING INTERVENTIONS: Monitoring of sleep/activity daily, Assess need for observations, Pain assessment/management, daily, Behavioral/health assessment, daily, Administer medications as per physicians order, Monitoring side-effects from medications daily, Education (See patient teaching record), Promotion of independence upon every interaction, Ensure safety in the environment of care throughout the 24 hr period, Stimulate participation in groups and Supportive counseling daily NURSING EXPECTED OUTCOMES AT TIME OF DISCHARGE: Patient engages in discharge planning, Patient attends group therapy sessions, Patient reports reduction in suicidal ideation, Patient refrains from self-harm behavior, Patient interacts with others in socially appropriate manner, Patient out of room, engaged with others during daytime hours, Patient reports adequate understanding of medication regimen, Patient adheres to pharmacotherapy as ordered and Patient remains in bed during normal sleep hours PSYCHOLOGICAL INTERVENTIONS: PROCESS GROUPS: Cognitive group therapy, up to 1 hour 2 times per week, Group therapy, up to 1 hour2 times per week and Grief/anger group therapy, up to 1 hour 4 times per week EDUCATION GROUP: Up to 1 hour 10 times per week TASKS GROUPS: Up to 1 hour 5 times per week PSYCHOLOGICAL EXPECTED OUTCOMES AT TIME OF DISCHARGE: Accepted grief and loss, Accepted responsibility for maladaptive behavior, Developed coping strategies/skills, Improved self-esteem, Increased awareness of self in relation to others, Increased expression of needs, Increased socialization, Increased tolerance for socialization and Increased knowledge about own illness SOCIAL INTERVENTIONS: Community referral, Discharge planning, Collaboration with outpatient providers, Evaluation of living situation, Collaboration with family/support network if allowed by patient and Collaboration with legal system SOCIAL EXPECTED OUTCOMES AT TIME OF DISCHARGE: Adequate housing in place, Outpatient referrals/follow-up appointments in place, Documents related to involutary status completed, Coordination of transportation from hospital to home is ensured, Support network identified, Support network informed of reasons for hospitalization, Client's strengths identified, Improved communication among the support network, Plan of aftercare communicated to providers and other support network and Client can articulatestrengths and goals PCP:Sana Muhammad Treatment Team Members RN: FELICIA TANNER RN Therapist: SUDHA TUCKER MA Automobile Mechanic Apprentice: SCOTT YOUNG PharmD: Patient Involvement This Treatment Plan was discussed with the patient/guardian. Attending physician statement/signature: Based on the information documented in this Initial Multidisciplinary Treatment Plan and in the medical record, I certify that: ?? This patient meets medical necessity criteria and requires acute inpatient psychiatric treatment,as evidenced by the documentation in this document of the diagnosis, active problems, target symptoms, initial goals, suggested diagnostic studies, interventions and expected outcomes at the time of discharge. ?? I hereby certify having a reasonable expectation that this patient has acute medical/psychiatric needs which will require that he or she receives inpatient services for no less than two midnights. ?? This patient needs, on a daily basis, active treatment furnished directly by or requiring the supervision of inpatient psychiatric facility personnel. Treatment is expected to improve this patient's condition. Lyndsey Carter MD Attending Psychiatrist lan of Matilda - Prerna Pereira RN - 11/17/2018 0605 EDT Problem: Daily Care Plan Goals Goal: Care Plan Documentation Outcome: Met This Shift Flowsheets (Taken 11/17/2018 0000) Goal This Shift: Pt will obtain adequate sleep (6-8 consecuative hours) Data: Pt asleep at start of shift. Woke was calm but with tangential, illogical and delusional during conversation with Constant observer. Pt had many/fluid requests. Action: Assist with needs as they arise, assess quality and quantity of sleep, administer medication, pain assess and reassessment. Response: Pt requested Ativan and appeared tense. Pt also requested pain medication for her fibromyalgia all over expresses displeasure with current ordered medications. One time order for ativan. Ptcalm and accepting of limits and when some requests could not be met. Currently focused on a hair onher chin, wanting to cut her bangs, and is looking forward to a family meeting she expects to havetoday. Prerna Pereira RN 11/17/2018 6:05 lan of Matilda - Sudha Orozco RN - 11/16/20182057 EDT Data: 28 y/o female with dx of Psychosis, DAT 4, Involuntary. Pt continues to display a labile mood,internally distracted, delusional, confucianism natured delusions. Visual hallucinations. Action: On Constant Observation for safety. Offered PM group and medications, quiet activity Response: pt did attend PM group but appeard to have periods of bizarre behavior. She was compliant with taking HS risperdal. At that time she was very pleasant and polite with me. SUDHA OROZCO RN 11/16/2018 20:58 lan of Care - Annabelle Hill RN - 11/16/2018 1311 EDT Data: Pt involuntary admission, DAT 4 on constant observation. Pt's mood is labile, with anxious affect and intermittent piercing eye contact. Mostly appropriate behavior displayed, agitation at times.Pt's thought process is illogical, racing, and preoccupied, paranoid delusions voiced - I am in ever yone's apocalypse as a vampire, I have been 9 years, people are stealing my being. Pt declinedto attend group therapy. Pt was isolative to room. Adequate meal intake this shift. Good ADLs, pt took a shower. Action: SI/HI/AVH/pain assessment. Administered meds per orders (see MAR). Monitored pt safety. Encouraged group participation.1:1 support provided. Coping mechanism education provided. Response: Pt endorses visual hallucinations. Denies any pain or discomfort. Medication compliant. Remains safe on unit. Care from [id number]: Pt isolative to her room. Ate 100% of dinner. No needs at this time. Remains safe on unit, will continue to monitor. lan of Matilda - Orlin Fraser RN - 11/16/2018 0314 EDT D: Assumed care of patient at 2330, patient was sleeping in her bed during patient centered report and remained so for the duration of the shift, no emotional outbursts or events this shift, patient remains able to make needs known A: Monitored patient safety/VS/pain/concerns, made self-available for needs, promoted restful sleep throughout the shift R: Patient remained safe on the unit throughout the shift, No concerns were observed by this underwriter or reported by the patient, as of 0600 patient appeared to sleep 6.75 hours this shift lan of Starr Sims - 11/15/2018 2129 EDT Data: Alternating between sobbing and smiling and laughing. States she returned to the hospital thismorning after asking a woman to call EMS to help her. WHen asked about her boyfriend with whom she discharged last night, pt states, 'I don't think he loves me anymore and begins to sob. Pt then describes seeing a unicorn coming through her window as well as concerns that both she and her mother are spiritually . States the unicorn is not a hallucination but a type of spiritual being that cannotbe seen by others. Then discusses that she would like to change her name to Bailey. Additionally, sheendorses that my spirit animal is a leo-unicorn. Much disorganized thinking alternating with calm, clear logical conversation. Sleepy at HS, complaint with medications. I want to take them all. But denies SI/HI/AH. Action: 1:1 support; monitor for safety; meds as ordered. Response: Safe on unit. Asleep. Did not leave bed entire shift except to use bathroom. STARR HERNÁNDEZ RN 11/15/2018 21:29 lan of Matilda - Shakir Baxter RN - 11/15/2018 1534 EDT Problem: Daily Care Plan Goals Goal: Care Plan Documentation Outcome: Ongoing Flowsheets (Taken 11/15/2018 4477) Area of Focus: Safety Goal This Shift: Patient will remain safe on the unit Note: Data: Patient arrived to the unit at 1335. Sedated. Engaged in arrival process. Reported feeling dizziness while standing. Patient grandmother was informed of patient's arrival per request. Expressed delusions about Lalo her friend killing babies with some weird magic. Patient also stated that Lalo had threatened to punch her in the stomach. Patient requested an iron supplement and stated she hadher mensis for the past 3 months. Patient stated It's like I have nothing inside my body. Its like my soul is in the estrada. Action: Monitor for safety. Constant observation. One to one offered. Arrival process completed. Response: Patient remains safe. Shakir Baxter RN 11/15/2018 15:17 D Consult - Sebas Hassan - 11/15/2018 1051 EDT Clam Dredge Boat Captain Initial Assessment Note Admit Date: 11/15/2018 Date of Consult: 11/15/2018 Other see presenting Presenting Information: Mary Grace Harris is a 19 year old female, unmarried, , unemployed. She has at least one childborn in 2011. She is currently assigned to [facility] outpatient providers Rishabh Rico and Mandy Li. She was discharged from [place] [address] on 11/15/2018 and has a history ofprior admissions to [facility] (last time in 2017) as well as [facility]???s Assist program. It is unclear to this underwriter at this time what medications Mary Grace is taking due to the degree of disorganization she presents with during assessment (see mental status). This evaluation occurred today 11/15/2018 at the [facility] Emergency Department ([facility] ED) at approximately 8:00 AM. This underwriter interviewed Mary Grace for approximately 30 minutes in her room. In addition to interviewing Mary Grace for approximately 30 minutes this underwriter also reviewed three recent records: [facility] ([facility]) crisis assessments dated 11/14/2018 by Rachid Melvin and 11/12/2018 by Vandana Maria and clinical assessment dated 09/27/2018 by Garima Portillo of [facility]. Additionally, underwriter reviewed [facility] ED triage notes and a note written by [facility] ED provider Lea Menendez dated 11/15/2018. According to [facility] triage notes Mary Grace was found last night [address] sidewalk screaming and crying. The ambulance brought her to the ER. According to Trevor Chatman??? assessment, he observed Mary Grace to be tearful and to express feelings that she was dying over and over again and that she feels like she is a vampire. In that assessment she denied any thoughts of suicide and violence and it was determined that she did not present as a person in need of treatment. Shewas discharged from [facility] later in the evening. Vandana Maria???s assessment dated 11/12/2018 indicated that [facility] at that time believed that Mary Grace would have met criteria for an emergency examination if she were unwilling to remain at [place] [address] for the night on 11/12/2018. This underwriter introduced myself to Mary Grace as a [facility] clinician and provided her with my credential asa Psychologist MATTEO. Before being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 1744, Until Wed11/28/18 at 1038, Other, Sleep, Routine Given 11/25/2018 23:40 EDT 3 mg Given 11/25/2018 0:23 EDT 3 mg melatonin tablet 5 mg Given 11/30/2018 2:50 EDT 5 mg 5 mg, oral, AT BEDTIME PRN, Starting on Wed11/28/18 at 1038, Until Wed11/30/18 at 1157, Other, Sleep, Routine Given 11/28/2018 20:35 EDT 5 mg Multivitamins with Minerals tablet 1 Tab Given 11/30/2018 8:28 EDT 1 Tablet 1 Tablet, oral, DAILY, First dose on Wed11/16/18 at 1230, Until Discontinued, Routine Given 11/29/2018 8:01 EDT 1 Tablet Given 11/28/2018 9:56 EDT 1 Tablet nicotine (NICOTROL) 10 mg inhaler 1 Inha ler Given 11/29/2018 11:02 EDT 1 Inhaler 1 Inhaler, inhalation, EVERY 2 HOURS PRN, Starting on Wed11/15/18 at 1744, Until Wed11/30/18 at 1157, Smoking Cessation, STAT Given 11/29/2018 7:12 EDT 1 Inhaler Given 11/27/2018 18:39 EDT 1 Inhaler nicotine inhaler (delivery device) Given 11/29/2018 11:03 EDT 1 Each 1 Each, inhalation, PRN, Starting on Wed11/15/18 at 1744, Until Wed11/30/18 at 1157, Smoking Cessation Given 11/26/2018 15:38 EDT 1 Each Given 11/25/2018 12:59 EDT 1 Each risperiDONE (RISPERDAL) tablet 2 mg Given 11/20/2018 21:19 EDT 2 mg 2 mg, oral, 2 TIMES DAILY, 12 doses, First dose on Wed11/15/18 at 1030, Last dose on Wed11/20/18 at 2100, STAT Given 11/20/2018 10:00 EDT 2 mg Given 11/19/2018 21:03 EDT 2 mg senna (SENOKOT) tablet 1 Tab Given 11/27/2018 9:44 EDT 1 Tablet 1 Tablet, oral, DAILY PRN, Starting on Wed11/22/18 at 1308, Until Wed11/27/18 at 1502, Constipation, Routine Given 11/26/2018 8:35 EDT 1 Tablet Given 11/25/2018 23:40 EDT 1 Tablet senna (SENOKOT) tablet 2 Tab Given 11/29/2018 8:01 EDT 2 Tablets 2 Tablet, oral, 2 TIMES DAILY, First dose (after last modification) on Wed11/27/18 at 2100, Until Discontinued, Routine Given 11/28/2018 20:35 EDT 2 Tablets Given 11/28/2018 9:55 EDT 2 Tablets sulfamethoxazole-trimethoprim Given 11/19/2018 8:39 EDT 1 Tablet (BACTRIM/CO-TRIMOXAZOLE DS) 800-160 mg per tablet 1 Tab 1 Tablet, oral, EVERY 12 HOURS, 6 doses, First dose on Soraya 11/17/18 at 2230, Last dose on 11/20/18 at 0900, STAT Given 11/18/2018 21:20 EDT 1 Tablet Given 11/18/2018 8:58 EDT 1 Tablet documented in this encounter Discontinued Medications Medication Sig Discontinue Reason Start Date End Date risperiDONE (RISPERDAL) 2 Take 1 Tab by 11/14/2018 0 11/30/2018 mg tabletIndications: mouth 2 times schizophrenia daily. documented as of this encounter Active and Recently Administered Medications Times are shown in EDT. Scheduled Medication Order 11/28/2018 11/29/2018 11/30/2018 acetaminophen (TYLENOL) tablet 1,000 mg 0900 (Given - Provider: Veronika Biswas RN)1323 (Given - Provider: Veronika Castle RN)1916 (Given - Provider: Yamil Mac RN) 0801 (Given - Provider: Nadine Rodriguez, RHODA)1 405 (Not Given - Provider: Sylvie Black RN - Reason: Patient/family refused)2129 (Given - Provider: Starr Hernández - Comment: pt sleeping at 1999) 0828 (Given - Provider: Veronkia Castle, RHODA) 1,000 mg, oral, USER SPECIFIED (3 times per day), First dose on Wed11/25/18 at 1400, Until Discontinued, Routine cariprazine (VRAYLAR) capsule 4.5 mg 1031 (Given - Pro vider: Veronika Castle RN) 0801 (Given - Provider: Nadine Rodriguez RN) 0827 (Given - Provider: Veronika Biswas, RHODA) 4.5 mg, oral, DAILY, First dose on Wed at 0900, Until Discontinued, Routine docusate sodium (COLACE) capsule 100 mg 0956 (Given - Provider: Veronika Biswas RN)2034 (Given - Provider: Felicia Tanner RN) 800 (Given - Provider: Nadine Rodriguez, RHODA)2128 (Not Given - Provider: Starr Hernández - Reason: Patient/family refused) 826 (Not Given - Provider: Veronika Biswas RN - Reason: Patient/family refused - Comment: pt stated she had diarrhea yesterday) 100 mg, oral, 2 TIMES DAILY, First dose on 11/27/18 at 2100, Until Discontinued, Routine lithium (ESKALITH) SR tablet 900 mg (CANCELED) 1711 (G iven - Provider: Yamil Mac, RHODA) 900 mg, oral, DAILY WITH DINNER, First d ose on Wed11/25/18 at 1700, Until Discontinued, Routine lithium (LITHOBID) SR tablet 1,500 mg 1700 (Give n - Provider: Annabelle Hill RN) 1,500 mg, oral, DAILY WITH DINNER, First dose on Wed11/29/18 at 1700, Until Discontinued, Routine Multivitamins with Minerals tablet 1 Tab 0956 (Given - Provider: Veronika Biswas RN) 08 (Given - Provider: Nadine Rodriguez RN) 827 (Given - Provider: Veronika Castle RN) 1 Tab, oral, DAILY, First dose on 01/24 at 1230, Until Discontinued, Routine senna (SENOKOT) tablet 2 Tab 0955 (Given - Provider: Lupe Castle RN)2034 (Given - Provider: Felicia Tanner RN) 08 (Given - Provider: Nadine Rodriguez RN)2128 (Not Given - Provider: Starr Hernández - Reason: Patient/family refused) 827 (Not Given - Provider: Veronika Castle RN - Reason: Patient/family refused - Comment: pt stated she had diarrhea yesterday) 2 Tab, oral, 2 TIMES DAILY, First dose o n 11/27/18 at 2100, Until Discontinued, Routine PRN Medication Order 11/28/2018 11/29/2018 11/30/2018 aluminum & magnesium hydroxide-simethico ne (MYLANTA-DS) 400-400-40 mg/5 mL suspension 30 mL 30 mL, oral, EVERY 4 HOURS PRN, Starting Wed11/15/18 at 1743, Until Wed11/30/18 at 1157, Indigestion, Routine bisacodyl (DULCOLAX) suppository 10 mg 10 mg, rectal, DAILY PRN, Starting Sun at 1503, Until Wed11/30/18 at 1157, Constipation, Routine calcium carbonate (TUMS) 200 mg calcium (500 mg) per chewable tablet tablet,chewable 1-2 Tab 1-2 Tab, oral, 4 TIMES DAILY PRN, Starti ng Soraya 11/24/18 at 1611, Until Wed11/30/18 at 1157, Heartburn, Indigestion, Routine hydrocortisone (ANUSOL-HC) suppository 25 mg 25 mg, rectal, 2 TIMES DAILY PRN, Starti ng Mon 11/28/18 at 1114, Until Wed11/30/18 at 1157, Hemorrhoids, Routine ibuprofen (MOTRIN) tablet 200 mg 200 mg, oral, 3 TIMES DAILY PRN, Startin g Wed11/25/18 at 1145, Until Wed11/30/18 at 1157, Pain, Routine LORazepam (ATIVAN) tablet 1 mg 0531 (Given - Provider: Lea Dickens RN)0955 (Given - Provider: Veronika Castle, RHODA)203 (Given - Provider: Felicia Tanner RN) 0307 (Given - Provider: Camilo Dash RN )1408 (Given - Provider: Bria Cheung, RHODA)2140 (Given - Provider: Starr Hernández) 0827 (Given - Provider: Veronika Castle, RHODA) 1 mg, oral, EVERY 4 HOURS PRN, Starting Wed11/25/18 at 1723, Until Wed11/30/18 at 1157, Anxiety, Routine magnesium hydroxide (MILK OF MAGNESIA) 400 mg/5 mL suspension 30 mL 30 mL, oral, DAILY PRN, Starting 11/06 at 1743, Until Wed11/30/18 at 1157, Heartburn, Routine melatonin tablet 5 mg 2034 (Given - Provider: Felicia Tanner RN ) 0250 (Given - Provider: Prerna Pereira RN) 5 mg, oral, AT BEDTIME PRN, Starting 11/28/18 at 1038, Until Wed11/30/18 at 1157, Other, Sleep, Routine nicotine (NICOTROL) 10 mg inhaler 1 Inhaler 0712 (Given - Provider: Iron Rodrigez, RHODA)1102 (Given - Provider: Nadine Rodriguez, RHODA) 1 Inhaler, inhalation, EVERY 2 HOURS PRN , Starting Wed11/15/18 at 1744, Until Wed11/30/18 at 1157, Smoking Cessation, STAT nicotine inhaler (delivery device) 1103 (Given - Provider: Nadine Rodriguez, RHODA) 1 Each, inhalation, PRN, Starting 12/24 at 1744, Until Wed11/30/18 at 1157, Smoking Cessation documented in this encounter Orders Medications Ordered That Might Not Have Count Last Ord ered Date First Ordered Date Been Administered hydrocortisone (ANUSOL-HC) suppository 25 2018 mg bisacodyl (DULCOLAX) suppository 10 mg 2 9 ibuprofen (MOTRIN) tablet 200 mg 1 11/25/2018 traMADol (ULTRAM) tablet 25 mg 1 11/23/2018 acetaminophen (TYLENOL) tablet 650 mg 1 11/22/2018 aluminum & magnesium hydroxide-simethicone 1 11/15 (MYLANTA-DS) 400-400-40 mg/5 mL suspension 30 mL senna (SENOKOT) tablet 1 Tab 1 11/15/2018 Diet Count Last Ordered Date First Ordered Date DISCHARGE DIET 11/30/2018 Nursing Count Last Ordered Date First Ordered Date ACTIVITY INSTRUCTIONS 11/30/2018 NURSING COMMUNICATION 11/18/2018 PATIENT AT LOW RISK FOR VTE: RISK OF 11/15/2018 MECHANICAL PROPHYLAXIS OUTWEIGHS PATIENT AT LOW RISK FOR VTE: RISK OF 11/15/2018 PHARMACOLOGIC PROPHYLAXIS OUTWEIG Consult Count Last Ordered Date First Ordered Date CONSULT NUTRITION 11/18/2018 Admission Count Last Ordered Date First Ordered Date ED BED REQUEST 11/15/2018 STATUS: INPATIENT ACUTE ADMISSION 11/15/2018 Transfer Count Last Ordered Date First Ordered Date NOTIFY PPS OF DISCHARGE COMPLETE 11/30/2018 NOTIFY PPS OF ROOM CHANGE COMPLETE 3 11/28/2018 11/16/2018 PPS NOTIFICATION OF PATIENT ARRIVAL ON 9 UNIT Discharge Count Last Ordered Date First Ordered Date DISCHARGE PATIENT 1 11/30/2018 Legal Count Last Ordered Date First Ordered Date MISCELLANEOUS DISCHARGE INSTRUCTIONS 7 11/30/2018 documented in this encounter Care Teams Saw Maker Relationship Specialty Start Date End Date Sana Muhammad MD PCP - General 12/02/16 08/05/20 documented as of this encounter
--- OUTSIDE RECORDS SUMMARY | 2021-08-16 23:31 | XMS_ITS | Encounter Summary ---
:1990 Author Organization [facility] Address [address] [place] [address] Care Team Providers Name Role Phone Sana Muhammad MD Primary Care Provider Reason for Visit Reason Onset Date Comments Psychosis 10/18/2018 Encounter Details Date Type Department Care Team Description 10/18/2018 Telephone [facility] Family Sana Muhammad MD Psychosis Medicine - [address] [id number] [place], [place] [id number] [phone] Social History Tobacco Use Types Packs/Day Years [...] Telephone Encounter - Lissa Lan RN - 10/18/2018 1510 EDT Discussed case/situation with Dr Muhammad -do we need to send a more urgent psychiatry referral? -have they updated DCF or do we need to? -if they feel patient is in danger they need to send her to ER. Spoke with Jaskaran again. He states that he has contacts out to the big players involved in gettingher into psychiatry and does not think that there is anything more we can do to get her in sooner. He will wait to hear back from them and let us know. He also states that her intensive family based clinician is in contact with DCF and has been updating them. He confirms that if they feel she needs urg ent assistance that they will refer her to the ER. He will keep us updated. elephone Encounter - Sana Muhammad MD - 10/18/2018 1509 EDT Per discussion: Please call [facility] to clarify Do we need to send in more urgent consult for medication management? Did they call DCF? If not we should call to up date them. If they are unable to see her, please get her in to see Dr. Duong at soonest time. Sana Muhammad MD elephone Encounter - Lissa Lan RN - 10/18/2018 2723 EDT Spoke to Jaskaran from [facility]. He states that patient met with one of their clinicians this morning (we referred her to [facility] on 09/19) and that patient was experiencing high levels of psychosis. He states she has a 6 year old at home and [facility] is involved. He states she was talking about people in her melvin, flying in space, the verma between the devil and angels and that they were trying to bring her into the black hole. He states she reported not knowing what day it is. He states that patient expressed wanting to see psychiatry. Per chart review, patient saw Dr Duong on 04/13/18 but does not appear to have consistent psychiatry services. There was a referral made to Adult psychiatry on 05/23/18 to the [facility], who is now calling requesting that she be referred to a psychiatrist. I asked Jaskaran to clarify; he statesthey have that referral and patient is on the wait list and he has a message out to their intelligence chief to see if they can get patient bumped up on that list. Per chart review, this appears to be close to patient's baseline. Message sent to Dr Muhammad for review/advice on how to proceed. Patient does not have any follow ups with our office scheduled at this time. Telephone Encounter - Celine Kohler - 10/18/2018 1348 EDT Jaskaran from Intake at the [facility] calling, patient has had some significant mental health changes very quickly. She is having symptoms of sudden psychosis. Jaskaran is asking if she is seeing a psychiatrist, it not, she needs to be seen by one as soon as possible. documented in this encounter Plan of Treatment Not on filedocumented as of this encounter Goals Goal Patient Goal Associated Recent Patient-Stated? 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[place], dependence Vania syndrome Healthy General On track [...] health please v isit: [email or web address]/medcenter/Pages/Wellness-Resources/Szntijzdg-Thdudm-Wr documented as of this encounter Visit Diagnoses Not on filedocumented in this encounter Care Teams Paraprofessional Interpreter Relationship Specialty Start Date End Date Sana Muhammad MD PCP - General 12/02/16 08/05/20 documented as of this encounter
--- OUTSIDE RECORDS SUMMARY | 2021-08-16 23:31 | XMS_ITS | Encounter Summary ---
:1990 Author Organization [facility] Address [address] [place] [address] Care Team Providers Name Role Phone Sana Muhammad MD Primary Care Provider Reason for Visit Reason Onset Date Comments Appointment Related 11/04/2018 Encounter Details Date Type Department Care Team Description 11/04/2018 Telephone [facility] Sana Muhammad Ap pointment Related Family Medicine - [address] [address] [place], [place] [id number] [phone] Social History Tobacco Use Types Packs/Day Years [...] Telephone Encounter - Marilee Holguin RN - 11/04/2018 1630 EDT Call made to Liz (DCF worker). No answer and voicemail advised to NOT leave a message and to call [phone]. Call made to [facility] main line. Spoke with Akanksha. Explained situation. Patient is off her medications, has AMS, no showed for appointment and has concerns for sons safety. States she will do a little digging and figure out the appropriate action. States they may do a welfare check. elephone Encounter - Marilee Holguin RN - 11/04/2018 1619 EDT Please call dcf and let them know. Given AMS I am concerned for sons safety. Sana Muhammad MD elephone Encounter - Diana Palencia - 11/04/2018 1352 EDT Patient was scheduled with Johnson Garrido today and was a no show. I did call her and left a message Letting her know she missed her appointment and [facility]. There is quite an extensive dialogue concerning this patient and [facility] and [facility](see previous telephone encounters) Message has been passed on nylon operatorChito Palencia 11/04/2018 13:56 documented in this encounter Plan of Treatment Not on filedocumented as of this encounter Goals Goal Patient Goal Associated Recent Patient-Stated? 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[place], dependence Vania syndrome Healthy General On track [...] more about your health please v isit: https://www.[facility].org/medcenter/Pages/Wellness-Resources/Vpbbeqtvr-Ybmmsz-Oj documented as of this encounter Visit Diagnoses Not on filedocumented in this encounter Care Teams Rental Car Ferry Driver Relationship Specialty Start Date End Date Sana Muhammad MD PCP - General 12/02/16 08/05/20 documented as of this encounter
--- OUTSIDE RECORDS SUMMARY | 2021-08-16 23:31 | XMS_ITS | Encounter Summary ---
:1990 Author Organization [facility] Address [address] [place] [address] Care Team Providers Name Role Phone Sana Muhammad MD Primary Care Provider Reason for Visit Reason Comments Medication Management Encounter Details Date Type Department Care Team Description 04/13/2018 Office Visit [facility] Unknown, Prov MD alexey Schizotypal personality ([facility]) (Prima ry Dx); [place] [address] [place] [id number] Cannabis use disorder, mild, abuse [address] [address] Social History Tobacco Use Types Packs/Day Years Used Date Current Every Day Smoker 0.5 10 Smokeless Tobacco: Never Used Alcohol Use Standard Drinks/Week Comments No 0 (1 standard drink = 0.6 oz pure alcoho l) occ Sex Assigned at Date Recorded Not on file documented as of this encounter Last Filed Vital Signs Vital Sign Reading Time Taken Comments Blood Pressure 130/72 04/13/2018 0913 EST Pulse 88 04/13/2018 0913 EST Temperature - - Respiratory Rate - - Oxygen Saturation - - Inhaled Oxygen Concentration - - Weight 113.6 kg (250 lb 6.4 oz) 04/13/2018 0913 EST Height - - Body Mass Index 42.98 01/23/2018 1806 EST documented in this encounter [...] making decisions? documented as of this encounter Progress Notes Krista Duong MD - 04/13/2018 0900 EST Images from the original note were not included. Date of Service: 04/13/2018 CC: Routine medication management follow up. Subjective / Interval History: Mary Grace Harris is a 27 y.o. female with a past psychiatric history of unspecified psychosis (was diagnosed with schizophrenia at some point in the past) who presents today for a psychiatric follow up appointment after being seen in the emergency room on 01/24/18, with subsequent hospitalization at . Assessment by Dr. Victor on 01/24/18: Mary Grace Harris is a 27 year [...] use has had on her current presentation. Pt comes to clinic today and brings her 5 year old son. She notes that she thought this was an eye appointment for him. Unfortunately she did not bring anything for him to do, and he was unwilling to listen to her demands throughout the appointment, attempting to go through bags, get on computers, taking this writers pager several time, and then ultimately refusing to leave the office requiring her to carry him out. Ms. Harris states that she had a productive hospitalization at . They added gabapentin and melatonin to her medication regimen. She notes that she has broken up with her boyfriend of 6years, who is going to senior living today for 18months. Her mood has been up and down since making this decision. She does report that she is no longer seeing/hearing demons though since they have broken up. At this time she denies all AVH. She continues to report paranormal activity consistent with her baseline (lights shuttering, knowing songs before she hears them, having dots around her head). She reports smoking less marijuana overall, though she continues to smoke up to twice daily. Intermittent alcohol. Mary Grace is happy with the medication changes at , she has been medication compliant and denies any side-effects. Pt denies SI, HI. Does not endorse any manic or overt psychotic symptoms. Psychiatric Review Of Systems: Sleep: fluctuating Appetite: fluctuating Current suicidal/homicidal ideations: no Current auditory/visual hallucinations: no Outpatient Medications: Current Outpatient Medications: albuterol 90 mcg/actuation inhaler [...] mouth 2 times daily with breakfast and dinner. Objective: Vitals: Patient Vitals for the past 24 hrs: BP Pulse Weight 04/13/18 0913 130/72 88 (!) 113.6 kg (250 lb 6.4 oz) Labs: Lipid profile 06/10/17: WNL General Behavior Well groomed and Excessive make up Cooperative, Eye contact: appropriate for culture Psychomotor Activity within normal limits Gait and Station No abnormality Speech normal rate, normal rhythm and normal volume Mood Alright Affect congruent and mildly blunted Thought Process Thought Process: Clear, Coherent, Organized and Goal-Directed Associations tight Thought Content/Perceptual Disturbances Paranormal delusions- at baseline denies suicidal/homicidal ideation, auditory/visual hallucinations, paranoia, grandiosity, increasedgoal directed activity, preoccupation, obsessions/compulsions and phobias Cognition/Sensorium Patient is oriented to time and place, Remote and recent memory appeared intact,attention span and concentration were age appropriate, language normal , Fund of knowledge business center representative of her education level Insight Fair Judgment Fair Assessment: Psychiatric Diagnoses: Schizotypal personality disorder Cannabis use disorder, mild H/o schizophrenia diagnosis Medical Diagnoses: Past Medical History: Diagnosis Date ??? Asthma ??? Asthma, exercise induced ??? Fibromyalgia ??? Laceration 12/04/06 left 5th digit tendon,nerve laceration ??? Mental disorder ??? Myofascial pain right shoulder and neck myofascial pain ??? Psychiatric problem anxiety ??? Schizophrenia, paranoid ([facility]) ??? Sciatica ??? Scoliosis ??? Tendinitis ??? Torticollis Psychosocial and contextual factors: Recent break up with boyfriend who is now going to senior living Level of impairment/disability: Mild Patient Education and Counseling: Supportive therapy provided for identified psychosocial stressors.Medication education provided and decisions regarding medication regimen discussed with patient. Mary Grace Harris is a 27 y.o. y.o female with a history detailed above who presented for consultation regarding medication management. She is currently experiencing her baseline symptoms of paranormal delusions, with no negative effect on her daily life. Of note Mary Grace was diagnosed many years ago with schizophrenia and started on rather serious psychotropic medications. From my observation and interview with her both in the emergency department and today's session, she very clearly fits into the diagnosis of schizotypal, rather than schizophrenia. Due to the heavy load of psychotropic medications I do not feel fully comfortable removing schizophrenia from her medical record entirely, but given her baseline level functioning, histrionic type traits, and fixed paranormal delusions, I truly feel that caution should be taken if a consideration for increasing antipsychotics ever arises. It is likelythat she may do just as well with less antipsychotic medication in general, though the risks of thisare relatively high, especially since she is the sole caregiver for her son at the moment. Should she desire to lessen her medication burden in the future I would recommend to start with antipsychoticsand observe closely for effect. At this time there is no indication for any medication changes. I do recommend that she completely abstain from marijuana given her fixed delusions and propensity towards hallucinatory experiences. She is pre-contemplative towards abstaining. Recommendations: - Continue current medication regimen - Crisis plan reviewed and patient verbally contracts for safety. Call 911/go to ED with imminent safety concerns. For emergencies taking place outside of business hours patient was instructed to call [facility] at [phone] Disposition: home Follow Up: PCP I spent a total of 15 minutes in face to face time with this patient today with greater than 50% of that time spent in counseling and coordination of care as described in the progress note. Krista Duong M.D. Psychiatry Attending Pager: [phone] documented in this encounter Plan of Treatment Not on filedocumented as of this encounter Goals Goal Patient Goal Associated Recent Patient-Stated? 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, dependence Vania syndrome documented as of this encounter Visit Diagnoses Diagnosis Schizotypal personality ([facility]) ([facility]) - Primary Schizotypal personality disorder Cannabis use disorder, mild, abuse documented in this encounter Care Teams Mechanical Apprentice Relationship Specialty Start Date End Date Sana Muhammad MD PCP - General 12/02/16 08/05/20 documented as of this encounter
--- OUTSIDE RECORDS SUMMARY | 2021-08-16 23:31 | XMS_ITS | Encounter Summary ---
:[address] [facility] Address [address] [place] [address] Care Team Providers Name Role Phone Sana Muhammad MD Primary Care Provider Reason for Visit Reason Onset Date Comments Medications Refill 03/21/2018 Encounter Details Date Type Department Care Team Description 03/21/2018 Refill [facility] Family Sana Muhammad MD Medications Refill Medicine - [address] [address] [place], [place] [address] [phone] Social History Tobacco Use Types Packs/Day Years [...] Start Date End Date hydrOXYzine (ATARAX) 25 mg Take 1 Tab by mouth 90 Tab 1 03/21/2018 07/14/2018 tablet 3 times daily as needed for Anxiety. ziprasidone (GEODON) 80 mg Take 1 Cap by mouth 60 Cap 1 03/21/2018 05/24/2018 capsuleIndications: 2 times daily with Paranoid schizophrenia breakfast and ([facility]) ([facility]) dinner. ziprasidone (GEODON) 60 mg Take 2 Caps by 60 Cap 5 03/2107/14/2018 capsuleIndications: mouth every Paranoid schizophrenia evening. ([facility]) ([facility]) sertraline (ZOLOFT) 100 mg take 1.5 tablet by 135 Tab 0 0 03/21/2018 07/14/2018 tabletIndications: mouth once daily at Paranoid schizophrenia bedtime ([facility]) ([facility]) perphenazine (TRILAFON) 4 Take 1 Tab by mouth 30 Tab 5 0 03/21/2018 07/14/2018 mg tabletIndications: as needed (can take Paranoid schizophrenia 1-2 tabs PRN in ([facility]) ([facility]) addition to her 2 mg (maximum 10 mg dose)). perphenazine (TRILAFON) 2 Take 1 Tab by mouth 60 Tab 5 0 03/21/2018 07/14/2018 mg tabletIndications: 2 times daily. Paranoid schizophrenia ([facility]) ([facility]) omeprazole (PRILOSEC) 20 take 1 capsule by 90 Cap 0 03/0807/14/2018 mg capsule mouth once daily LORazepam (ATIVAN) 1 mg Take 1 Tab by mouth 60 Tab 2 07/14/2018 tabletIndications: 2 times daily. Paranoid schizophrenia Daily Max: 2 mg ([facility]) ([facility]) cyclobenzaprine (FLEXERIL) Take 1 Tab by mouth 30 Tab 5 03/21/2018 07/14/2018 10 mg tablet at bedtime. benztropine (COGENTIN) 2 take 2 tablet by 360 Tab 1 03/2107/14/2018 mg tabletIndications: mouth twice a day Paranoid schizophrenia ([facility]) ([facility]) documented in this encounter Miscellaneous Notes Telephone Encounter - Mita Johnson - 03/21/2018 9931 EST Medication(s) Requested: Hydroxyzine, Gabapentin, Geodon, Zoloft, Perphenazine, Omeprazole, Ativan, Flexeril, Cogentin Preferred Pharmacy: [facility] Is patient out of medication? no Last Refill Date: Hydroxyzine ?, 10/30/10, 02/24/17, 09/27/17, 02/26/17, 11/22/17, 12/28/17, 10/05/17, 09/02/17, 10/30/10 Last Visit Date with Ordering Provider: 02/09/18 Next Non-Acute Visit Date Scheduled with Care Team: 04/12/18 Mita Johnson 03/21/2018 14:17 documented in this encounter Plan of Treatment Not on filedocumented as of this encounter Goals Goal Patient Goal Associated Recent Patient-Stated? 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, kamryn Vania syndrome documented as of this encounter Visit Diagnoses Diagnosis Paranoid schizophrenia ([facility]) ([facility]) - Primary Paranoid schizophrenia, unspecified cond ition documented in this encounter Discontinued Medications Medication Sig Discontinue Reason Start Date End Date benztropine (COGENTIN) 2 take 2 tablet by Reorder 09/02/2017 03/21/2018 mg tabletIndications: mouth twice a day Paranoid schizophrenia ([facility]) ([facility]) cyclobenzaprine (FLEXERIL) take 1 tablet by Reorder 10/05/2017 03/21/2018 10 mg tablet mouth once daily at bedtime LORazepam (ATIVAN) 1 mg take 1 tablet by Reorder 12/28/2017 03/21/2018 tabletIndications: mouth twice a day Paranoid schizophrenia ([facility]) ([facility]) omeprazole (PRILOSEC) 20 take 1 capsule by Reorder 11/22/2017 03/21/2018 mg capsule mouth once daily perphenazine (TRILAFON) 2 Take 1 Tab by Reorder 02/26/2017 0 03/21/2018 mg tabletIndications: mouth 2 times Paranoid schizophrenia daily. ([facility]) ([facility]) perphenazine (TRILAFON) 4 Take 1 Tab by Reorder 02/26/2017 0 03/21/2018 mg tabletIndications: mouth as needed Paranoid schizophrenia (can take 1-2 tabs ([facility]) ([facility]) PRN in addition to her 2 mg (maximum 10 mg dose)). sertraline (ZOLOFT) 100 mg take 1 tablet by Reorder 09/27/2017 03/21/2018 tabletIndications: mouth once daily Paranoid schizophrenia at bedtime ([facility]) ([facility]) ziprasidone (GEODON) 60 mg Take 2 Caps by Reorder 02/26/2017 03/21/2018 capsuleIndications: mouth every Paranoid schizophrenia evening. ([facility]) ([facility]) ziprasidone (GEODON) 80 mg Take 1 Cap by Reorder 02/26/2017 03/21/2018 capsuleIndications: mouth daily. Paranoid schizophrenia ([facility]) ([facility]) hydrOXYzine (ATARAX) 25 mg Take 25 mg by Reorder 03/21/2018 tablet mouth 3 times daily as needed for Anxiety. documented as of this encounter Care Teams Direct Chill Casting Operator Relationship Specialty Start Date End Date Sana Muhammad MD PCP - General 12/02/16 08/05/20 documented as of this encounter
--- OUTSIDE RECORDS SUMMARY | 2021-08-16 23:31 | XMS_ITS | Encounter Summary ---
:1990 Author Organization [facility] Address [address] [place] [address] Care Team Providers Name Role Phone Sana Muhammad MD Primary Care Provider Reason for Visit Reason Onset Date Comments Altered Mental Status 10/27/2018 Encounter Details Date Type Department Care Team Description 10/27/2018 Telephone [facility] Sana Muhammad Al tered Mental Status Family Medicine - [address] [id number] [phone] (Wo rk) Social History Tobacco Use Types [...] this encounter Miscellaneous Notes Telephone Encounter - Nadine Bentley - 11/04/2018 1607 EDT Patient No showed for her appointment on 11/04/18 and is rescheduled to be seen on 11/09/18. Telephone Encounter - Suki Bill RN - 11/03/2018 0950 EDT Patient scheduled for appt in clinic tomorrow 11/04/18. Suki Bill RN 11/03/2018 9:50 elephone Encounter - Suki Bill RN - 10/31/2018 1522 EDT Called Home number, Bing () answered. Verbalized that Mary Grace doesn't live there anymore and she no longer has a cell phone. At this time she has no phone, stated that she could get a message to her in person. Just asked her to have Pt give us a call val; verbalized understanding with no barriers to learning and will follow-up as advised. When Pt calls back, she needs to be scheduled with next available 30 min appt. Suki Bill RN 10/31/2018 15:26 elephone Encounter - Sana Muhammad MD - 10/31/2018 1511 EDT Agree with concerns. Please have her follow up with myself or another provider tomorrow. Sana Muhammad MD elephone Encounter - Suki Bill RN - 10/31/2018 1436 EDT Call back from Liz BAIRD; Verbalized understanding and agree with hospitalization. Liz expressed frustration as she is trying to protect Pt's son, Jose, as the [facility] refuses to discuss any information with DCF about mental status and ability for Pt to appropriately parent. They verbalized to Liz that they are mandated reporters as well and would if they felt they needed to. Per Liz, I have met her, but I don't think I have really met Mary Grace. Patient verbalized to Liz she is not taking her medication and states that everyone knows she isn't taking it. There have been reports of Pt talking with people outside of the country to try and get passports for her and a new partner that she met online and is now living with her. She has referred to Jose as a Pervert who stares at her all the time. She complains that the state doesn't give her enough money. Jose is currently with his great granmother and Pt's brother has stepped forward expressing he wants guardianship of Jose. At this time, Liz is hoping that Pt can be evaluated at the [facility] so she can receive appropriate care and follow-up. With [facility] not providing information, she is not able to really move forward with open DCF case and is very concerned with Jose's safety. Suki Bill RN 10/31/2018 15:02 elephone Encounter - Suki Bill RN - 10/31/2018 0951 EDT LMCBx2 for DCF worker Liz to call us back. Need to relay Dr. Muhammad's message and check-in on status of Pt and family. Suki Bill RN 10/31/2018 9:53 elephone Encounter - Mary Grace Mckeon RN - 10/27/2018 1229 EDT Left message for DCF worker, Liz to call clinic. Need to relay message from Dr. Muhammad. elephone Encounter - Sana Muhammad MD - 10/27/2018 1212 EDT Patient should be on medication. May need hospitalization based on dcf visit. Sana Muhammad MD elephone Encounter - Marilee Holguin RN - 10/27/2018 1119 EDT Spoke with Liz from [facility]. States they have an open case with the family. Reports Mary Grace left her a voicemail this morning stating her son Jose is staying with her grandmother because she needs a break from him staring at her. She is going to see patient today to hopefully Lay eyes on her and to check up on Jose. She has written on her hands today Love and Hate. Patient does not have a home phone. She walks over to her grandmothers house (both live in [place]) to use her phone. Mary Grace has reported to Liz recently she is not on medications and her doctor is in agreeable to this. Explained she is prescribed medication and was just started on Risperdal 10/21/18. Pt does have follow up with SHIVANI Galvan from the [facility] tomorrow. Will send to MD to update on patients current status. elephone Encounter - Doug Rojo - 10/27/2018 1102 EDT Liz is calling from [facility], release on file to speak to her from 10/06/18. Patient is in the middle of a psychotic crisis and wants to speak to her doctor or nurse about this as she feels it's not beingaddressed. Was in the ED on 10/23/18. documented in this encounter Plan of Treatment Not on filedocumented as of this encounter Goals Goal Patient Goal Associated Recent Patient-Stated? 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Wake, dependence Vania syndrome Healthy General On track [...] please v isit: [email or web address] documented as of this encounter Visit Diagnoses Not on filedocumented in this encounter Care Teams Time Study Observer Relationship Specialty Start Date End Date Sana Muhammad MD PCP - General 12/02/16 08/05/20 documented as of this encounter
--- OUTSIDE RECORDS SUMMARY | 2021-08-16 23:31 | XMS_ITS | Encounter Summary ---
:1990 Author Organization [facility] Address [address] [place] [address] Care Team Providers Name Role Phone Sana Muhammad MD Primary Care Provider Reason for Visit Reason Onset Date Comments Other 10/06/2018 Encounter Details Date Type Department Care Team Description 10/06/2018 Telephone [facility] Family Sana Muhammad MD Other Medicine - [address] [address] [place], [place] [address] [phone] Social History Tobacco Use Types Packs/Day Years [...] this encounter Miscellaneous Notes Telephone Encounter - Sana Muhammad MD - 10/10/2018 1337 EDT Left message on Laura's confidential line. Last visit 1 year ago. Prior to caring over that year, both were well groomed and Mom was attentive to son in the office. Okay to call back if any other questions or concerns. Sana Muhammad MD elephone Encounter - Sara Berg MD, MD - 10/10/2018 1006 EDT PCP, Dr Muhammad will call DCF. She sees Mary Grace and her son, and thus is best able to answer questions DCF may have. elephone Encounter - Sana Muhammad MD - 10/07/2018 1634 EDT In the past when I have seen her and her son I have not had any parenting concerns, she was very attentive in the room and son was easy to redirect myself, but it seems that this may have changed. Lasttime I saw her in clinic was about 1 year ago. Sana Muhammad MD elephone Encounter - Sara Berg MD, MD - 10/07/2018 1525 EDT I have seen her once only twice-both in past few months, and only have the information provided in my last note from discussion with her about her son-- Cares for her son somewhat. 6 yr old son. No help. 09/19/18. She didn't have any concerns that shecould care for him, though she certainly struggles with her mental illness and fear that arises. I am happy to talk with DCF but am not sure I have enough info; I am not her PCP or psychiatrist. She is establishing with [facility] again and has seen Dr Duong once (consulting psychiatrist). Telephone Encounter - Suki Bill RN - 10/06/2018 1529 EDT [facility], Mailbox full. Dr. Berg is out until Wednesday next week, I would not feel comfortable relaying information towardsthis concern. When Laura calls back, please let her know I will pass her message on to Dr. Berg for personal review. Suki Bill RN 10/06/2018 15:31 elephone Encounter - Loretta Cox - 10/06/2018 1504 EDT Laura Cleary is calling from [facility] looking to speak with regarding the past couple visits patient has had here. Laura is looking to see if there is any information that would cause concerns with patient's parenting capacity. documented in this encounter Plan of Treatment [...] more about your health please v isit: [email or web address]/Sfrtsejyd-Gjjqvz-Gp documented as of this encounter Visit Diagnoses Not on filedocumented in this encounter Care Teams Job Forwarder Relationship Specialty Start Date End Date Sana Muhammad MD PCP - General 12/02/16 08/05/20 documented as of this encounter
--- OUTSIDE RECORDS SUMMARY | 2021-08-16 23:31 | XMS_ITS | Encounter Summary ---
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 morning with Veronika Izquierdo (RN), and Inga and Shellie from social work. Per nursing, Yasmany slept 5 hours overnight. Yasmany is feeling hopeful this morning and mentioned that the war is over and that she had to do a lot. When asked to say more, she describes something spreading, similar to a cold. She mentions not wanting to give the team visuals of what she sees because it would be too scary. During the conversation, Yasmany turned and said to this automatic typewriter inspector it looks like you want to say something and that it seems like she's been through it before. Per nursing report, Yasmany's blood pressure and heart rate have been elevated this morning, and Yasmayn mentions her blood pressure has been crazy. She denies pain, but says that her feet are freezing. Yasmany is agreeable to having her blood pressure and heart rate rechecked after sitting calmly for 10 minutes. Medications: Current Facility-Administered Medications: acetaminophen (TYLENOL) tablet 325 mg oral Q4H PRN aluminum & magnesium hydroxide-simethicone (MYLANTA-DS) 400-400-40 mg/5 mL suspension 30 mL [id number] PRN docusate sodium (COLACE) capsule 100 mg oral Daily PRN hydrOXYzine (ATARAX) tablet 25 mg oral Q4H PRN ibuprofen (MOTRIN) tablet 400 mg oral Q6H PRN magnesium hydroxide (MILK OF MAGNESIA) 400 mg/5 mL suspension 30 mL oral Daily PRN melatonin tablet 3 mg oral AT BEDTIME PRN nicotine (NICOTROL) 10 mg inhaler 1 Inhaler inhalation Q2H PRN nicotine inhaler (delivery device) inhalation PRN risperiDONE (RISPERDAL) tablet 2 mg oral DAILY risperiDONE (RISPERDAL) tablet 2 mg oral QHS senna (SENOKOT) tablet 1 Tab oral AT BEDTIME PRN traZODone (DESYREL) tablet 50 mg oral QHS Review of Systems: Appetite is normal. Slept for 5 hours last night. Feet are cold. Mental Status Exam: Yasmany Harris is a 28 y.o. woman who appears her stated age. Met with patient in the meeting room this morning. Her behavior was calm, polite, and cooperative with good eye contact. No psychomotor disturbances or abnormal/involuntary movements. Speech is unremarkable for rate, rhythm, tone, or volume. Patient has appropriate use of the Guyanese language. Mood is calm. Affect is congruent with mood. Thought process is coherent with some bizarre thought content. No SI/HI. Patient is alert and orientedx 4. 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 Patient has fair insight into her disease, and judgment is fair (patient compliant with medications). Physical Exam: BP (!) 169/102 (Patient Position: Sitting) Pulse (!) 137 Temp 36.6 ??C (97.9 ??F) (Temporal) Resp 16 Ht 163.8 cm (64.5) Wt (!) 113.8 kg (250 lb 12.8 oz) SpO2 96% BMI 42.38 kg/m?? Data Review: Labs: No results found for this or any previous visit (from the past 24 hour(s)). Other studies: Brief psychiatric rating scale: score of 4 or higher indicates moderate severity 1. Somatic concern: 2 2. Anxiety: 1 3. Emotional withdrawal: 1 4. Conceptual disorganization: 3 5. Guilt feelings: 1 6. Tension: 1 7. Mannerisms and posturin 8. Grandiosity: 4 9. Depressive mood: 1 10. Hostility: 1 11. Suspiciousness: 3 12. Hallucinatory behavior: 6 13. Motor retardation: 2 14. Uncooperativeness: 1 15. Unusual thought content: 5 16. Blunted affect: 3 17. Excitement: 1 18. Disorientation: 1 Total: 38 Assessment/Formulation: Yasmany Harris is a 27 y.o. woman with a historical diagnosis of schizophrenia (r/o schizotypal), anxiety, and multiple prior psychiatric hospitalizations who presented with her uncle to the ED due to severe distress from delusional thoughts that she is experiencing the apocalypse and persecution by shadow tentacle being. This presentation is consistent with past presentation featuring delusions ofdestruction and persecution, with disordered thought and speech consistent with schizophrenia. She does have considerable mood lability and inconsistent expressions of passive suicidal ideation that may belie some underlying mood component to her presentation, or this may be due to the distressing nature of her delusions. Labs obtained and ruled out contribution from underlying medical condition. Hersymptoms in the past have been decreased by medications enough that her functioning was adequate, but she appears to have presented in the context of discontinuing her previously prescribed antipsychotics. Admitted to [facility] psychiatry for diagnostic clarity, acute stabilization, and medication management. Yasmany was started on zoprasidone, but symptoms persisted on an increased dose, and so Yasmany was started on risperidone on 11/09. Yasmany is tolerating the medication well. Blood pressure and heartrate were elevated this morning, but did improve s/p atarax. Must consider neuroleptic malignant syndrome and continue to monitor vitals and change in clinical picture. Family meeting on 11/09. Yasmany Harris meets criteria for acute level of care. Diagnostic Impression w/ Differential Diagnosis Psychiatric Diagnoses (including Personality Traits/Disorders): - Unspecified psychosis: likely schizophrenia, possibly contribution from substance-induced psychosis; r/o schizoaffective disorder - Unspecified anxiety Other Medical Conditions: chronic pain, celiac disease, GERD, tobacco dependence Plan: General: - Locus level 4 with frequent observation - Family meeting 11/09 Unspecified psychosis, likely schizophrenia: - Final dose of ziprasidone 11/11. - Continue risperidone 2 mg BID - Continue trazodone 50 mg QHS ?? Unspecified anxiety ??- Hydroxyzine 25 mg q4h prn Tobacco use disorder: - continue nicotine replacement via inhaler Discharge Plan: Discharge planning per multidisciplinary team rounds. Yamileth Rojas MD 2018 8:29 Associated attestation - Lyndsey Carter - 11/17/2018 1709 EDT Attending Attestation: I saw and evaluated the patient on 2018. Treatment plan reviewed with the patient and team. I agree with (and have edited in italics) the findings and plan of care as documented in the resident/PA's note. Lyndsey Carter MD Attending Psychiatrist Pager [phone] Yamileth Rojas MD - 11/10/2018 3988 EDT Inpatient Psychiatry Daily Progress Note Date of Service: 11/10/2018 Admit Date: 11/06/2018 Hospital day: LOS: 4 days Legal Status: Legal status: Voluntary Observation Level: Observation / visual check: Q 15 minutes (frequent) Locus/Risk of Harm: Current locus of harm: 4 Reason for Admission/Chief Complaint: I've been snarfed so much I'm gone Clinical Update/24-hour Events: Met with patient during PCR this morning. Per nursing, patient slept about 5 hours overnight. Yasmany reports having a difficult night, but that she feels normal this morning. She says she was possessed over and over overnight. She stated that she wants to go home and feels like she would be unable to get better if she stays in the hospital. She seems agreeable to staying a few more days. She does not report any side effects since starting risperidone. Medications: Current Facility-Administered Medications: acetaminophen (TYLENOL) tablet 325 mg oral Q4H PRN aluminum & magnesium hydroxide-simethicone (MYLANTA-DS) 400-400-40 mg/5 mL suspension 30 mL [id number] PRN docusate sodium (COLACE) capsule 100 mg oral Daily PRN hydrOXYzine (ATARAX) tablet 25 mg oral Q4H PRN ibuprofen (MOTRIN) tablet 400 mg oral Q6H PRN magnesium hydroxide (MILK OF MAGNESIA) 400 mg/5 mL suspension 30 mL oral Daily PRN melatonin tablet 3 mg oral AT BEDTIME PRN nicotine (NICOTROL) 10 mg inhaler 1 Inhaler inhalation Q2H PRN nicotine inhaler (delivery device) inhalation PRN [START ON 2018] risperiDONE (RISPERDAL) tablet 2 mg oral DAILY risperiDONE (RISPERDAL) tablet 2 mg oral QHS senna (SENOKOT) tablet 1 Tab oral AT BEDTIME PRN traZODone (DESYREL) tablet 50 mg oral QHS ziprasidone (GEODON) capsule 20 mg oral BID (BREAKFAST/DINNER) Review of Systems: Appetite is normal. Slept for 5 hours last night. Mental Status Exam: Yasmany Harris is a 27 y.o. woman who appears her stated age. Met with patient in the meeting room this morning. Her behavior was calm, polite, and cooperative with good eye contact. No psychomotor disturbances or abnormal/involuntary movements. Speech is unremarkable for rate, rhythm, tone, or volume. Patient has appropriate use of the [place]yanese language. Mood is calm, but becomes mildly agitated whenexpressing the desire to go home and about the treatment team calling her family. Affect is congruent with mood. Thought process is coherent with some bizarre thought content. When asked to say more manuel topic, Yasmany replied yes, thank you. a number of times. No SI/HI. Patient is alert and oriented x 4. 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 retirement memory intact. Patient has fair insight into her disease,but judgment is limited as she does express the desire to go home. Physical Exam: BP (!) 138/98 Pulse (!) 135 Temp 36.6 ??C (97.9 ??F) (Temporal) Resp 16 Ht 163.8 cm (64.5) Wt (!) 113.8 kg (250 lb 12.8 oz) SpO2 96% BMI 42.38 kg/m?? Data Review: Labs: Results for orders placed or performed during the hospital encounter of 11/06/18 (from the past 24 hour(s)) TEST, URINE Collection Time: 11/09/18 20:25 Result Value Ref Range Result- Test, Ur Neg Neg Other studies: N/A Assessment/Formulation: Yasmany Harris is a 27 y.o. woman with a historical diagnosis of schizophrenia (r/o schizotypal), anxiety, and multiple prior psychiatric hospitalizations who presented with her uncle to the ED due to severe distress from delusional thoughts that she is experiencing the apocalypse and persecution by shadow tentacle being. This presentation is consistent with past presentation featuring delusions ofdestruction and persecution, with disordered thought and speech consistent with schizophrenia. She does have considerable mood lability and inconsistent expressions of passive suicidal ideation that may belie some underlying mood component to her presentation, or this may be due to the distressing nature of her delusions. Labs obtained and ruled out contribution from underlying medical condition. Hersymptoms in the past have been decreased by medications enough that her functioning was adequate, but she appears to have presented in the context of discontinuing her previously prescribed antipsychoti cs. Admitted to [facility] psychiatry for diagnostic clarity, acute stabilization, and medication management. Family meeting on 11/09. Symptoms have persisted on the increased dose of ziprasidone. Yasmany started risperidone on 11/09. Yasmany Harris meets criteria for acute level of care. Diagnostic Impression w/ Differential Diagnosis Psychiatric Diagnoses (including Personality Traits/Disorders): - Unspecified psychosis: likely schizophrenia, possibly contribution from substance-induced psychosis; r/o schizoaffective disorder - Unspecified anxiety Other Medical Conditions: chronic pain, celiac disease, GERD, tobacco dependence Plan: General: - Locus level 4 with frequent observation - Family meeting 11/09 Unspecified psychosis: - Decrease ziprasidone to 20 mg daily tomorrow, then stop. - Increase morning dose of risperidone to 2 mg daily starting tomorrow. Will continue 2 mg qhs. - continue trazodone 50 mg QHS ?? Unspecified anxiety ??- Hydroxyzine 25 mg q4h prn Tobacco use disorder: - continue nicotine replacement via inhaler Discharge Plan: Discharge planning per multidisciplinary team rounds. Yamileth Rojas MD 11/10/2018 11:50 Associated attestation - Lyndsey Carter - 11/17/2018 1652 EDT Attending Attestation: I saw and evaluated the patient on 11/10/2018. Treatment plan reviewed with the patient and team. I agree with (and have edited in italics) the findings and plan of care as documented in the resident/PA's note. Lyndsey Carter MD Attending Psychiatrist Pager [phone] Inga Hernandez MSW - 11/10/2018 0919 EDT Social Work Progress Note Intervention/Service: Coordination of care and On-going assessment Person centered rounds with yissel Brody automatic typewriter inspector (SW), Shellie (SW editing internship), Dr. Carter (attending), Dr. Pitts (resident), Trinh (internet sales director), Didi (RN), and Domingo ([facility] Yasmany shared that she was repeatedly possessed over night but was feeling better now. Her nurse noted that she hadbeen screaming at night. Yasmany stated she wanted to go home, stating it was too difficult to get better here. However she was agreeable to staying when concerns were expressed. We ended our meeting with Yasmany wanting to call her family. Inga roth MSW - 11/09/2018 0902 EDT Social Work Progress Note Intervention/Service: Coordination of care and On-going assessment Spoke with Jaskaran from [facility]'s Intake and Access. He confirmed that he had made a referral to [facility] DEPARTMENT [facility]AIR for Yasmany as well as therapy through [facility]. Yasmany had begun to see Mandy Armstrong in October and had met with her a few times, would have had follow-up yesterday but wasin the hospital. Jaskaran will check on the status of these referrals. Yasmany had previously been receiving services as part of the family based services with her son, however her son is no longer under her care so she is not receiving these services. Family meeting. In attendance: Yasmany, Lalo (her fiance), Maddy (her brother), Ellen (her grandmother), this automatic typewriter inspector (SW), Shellie (SW editing internship), Cheryl (RNs), Dr. Carter (attending), (resident), Domingo ([facility]). Family shared that this morning Yasmany seemed better than yesterday. They noted much of the same history prior to hospitalization. Wanted to know about after care plans and informed them of [facility]'s [facility] referral in place. As meeting progressed, Yasmany talked more about the ongoing merging that was happening between her and the world. States that she has been seeing a demon that looks like the shadow of a hippo invading other peoples bodies and sucking out their life. Yasmany became very focused on Abdoul stating that Abdoul was taking away Yasmany's light and life. Stated that Abdoul was filled with black energy. At this time, Yasmany could not contract for safety for Abdoul and most of the team left the meeting. This automatic typewriter inspector and Dr. Carter stayed with Yasmany and her family. She explained the ongoing distress she has been experiencing. Discussed changing medications to risperidone. Initially Yasmany did not want to stay in the hospital, but was eventually agreeable to staying a fter hearing the concerns of the team and her family. Family was agreeable to having another family meeting as Yasmany progresses towards discharge. Yamileth Pelletier MD - 11/09/2018 0820 EDT Inpatient Psychiatry Daily Progress Note Date of Service: 11/09/2018 Admit Date: 11/06/2018 Hospital day: LOS: 3 days Legal Status: Legal status: Voluntary Observation Level: Observation / visual check: Q 15 minutes (frequent) Locus/Risk of Harm: Current locus of harm: 4 Reason for Admission/Chief Complaint: I've been snarfed so much I'm gone Clinical Update/24-hour Events: Met with patient during family meeting this morning. Per nursing, patient slept 7.25 hours overnight. Yasmany's grandmother, brother, and fiance were present at the meeting. They expressed appreciation for Yasmany as a kind, loving person and expressed their wish for her to get better. Yasmany became agitated during the meeting and spoke about demons she has seen and merging of her world with the outside world. She began to focus her attention on Abdoul (RN) and her bad energy. She accused Steveinof stealing her eyes. The group meeting was concluded at that time, as Dr. Carter was concerned for Abdoul's safety. Dr. Carter then continued the conversation alone with Yasmany and her family. Medications: Current Facility-Administered Medications: acetaminophen (TYLENOL) tablet 325 mg oral Q4H PRN aluminum & magnesium hydroxide-simethicone (MYLANTA-DS) 400-400-40 mg/5 mL suspension 30 mL [id number] PRN docusate sodium (COLACE) capsule 100 mg oral Daily PRN hydrOXYzine (ATARAX) tablet 25 mg oral Q4H PRN ibuprofen (MOTRIN) tablet 400 mg oral Q6H PRN magnesium hydroxide (MILK OF MAGNESIA) 400 mg/5 mL suspension 30 mL oral Daily PRN melatonin tablet 3 mg oral AT BEDTIME PRN nicotine (NICOTROL) 10 mg inhaler 1 Inhaler inhalation Q2H PRN nicotine inhaler (delivery device) inhalation PRN risperiDONE (RISPERDAL M-TABS) disintegrating tablet 1 mg oral BID PRN senna (SENOKOT) tablet 1 Tab oral AT BEDTIME PRN traZODone (DESYREL) tablet 50 mg oral QHS ziprasidone (GEODON) capsule 40 mg oral BID (BREAKFAST/DINNER) Review of Systems: Appetite is normal. Slept for 7.25 hours last night. Mental Status Exam: Yasamny Harris is a 27 y.o. woman who appears her stated age. Met with patient and family in the meeting room. Her behavior was calm, polite, and cooperative with good eye contact, but became tearful and agitated at times. No psychomotor disturbances or abnormal/involuntary movements. Speech is unremarkable for rate, rhythm, tone, or volume. Patient has appropriate use of the [place]yanese language. Mood is calm, but becomes agitated as the meeting progresses. Affect is labile as Yasmany quickly becomes tearful and then returns to being calm. Thought process is coherent but illogical. Thought content isbizarre and patient describes demons and other voices she has experienced. No SI/HI expressed. Patient is alert and oriented x 4. 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 Patient has fair insight into her disease and understands she needs to stay for treatment. Judgment is fair. Physical Exam: BP (!) 147/89 (BP Cuff Location: Left arm, Patient Position: Sitting) Comment: RN notified Pulse 95 Temp 36.9 ??C (98.4 ??F) (Temporal) Resp 14 Ht 163.8 cm (64.5) Wt (!) 113.8 kg (250 lb 12.8 oz) SpO2 99% BMI 42.38 kg/m?? Data Review: Labs: No results found for this or any previous visit (from the past 24 hour(s)). Other studies: N/A Assessment/Formulation: Yasmany Harris??is a??27 y.o.??woman with a historical diagnosis of schizophrenia (r/o schizotypal),anxiety, and multiple prior psychiatric hospitalizations who presented with her uncle to the ED due to severe distress from delusional thoughts that she is experiencing the apocalypse and persecution by shadow tentacle being. This presentation is consistent with past presentation featuring delusionsof destruction and persecution, with disordered thought and speech consistent with schizophrenia. She does have considerable mood lability and inconsistent expressions of passive suicidal ideation thatmay belie some underlying mood component to her presentation, or this may be due to the distressing nature of her delusions. Labs obtained and ruled out contribution from underlying medical condition. Her symptoms in the past have been decreased by medications enough that her functioning was adequate,but she appears to have presented in the context of discontinuing her previously prescribed antipsychotics. Admitted to [facility] psychiatry for diagnostic clarity, acute stabilization, and medication management. ?? Symptoms have persisted on the increased dose of ziprasidone. Yasmany is reluctant but agreeable tostarting risperidone. ?? Yasmany Harris meets criteria for acute level of care. Diagnostic Impression w/ Differential Diagnosis Psychiatric Diagnoses (including Personality Traits/Disorders): - Unspecified psychosis: likely schizophrenia, possibly contribution from substance-induced psychosis; r/o schizoaffective disorder - Unspecified anxiety Other Medical Conditions: chronic pain, celiac disease, GERD, tobacco dependence Plan: General: - Locus level 4 with frequent observation - Family meeting today Unspecified psychosis: - Decrease ziprasidone to 20 mg BID - start risperidone 1 mg daily and 2 mg qhs - continue trazodone 50 mg QHS ?? Unspecified anxiety ??- Hydroxyzine 25 mg q4h prn Tobacco use disorder: - continue nicotine replacement via inhaler Discharge Plan: Discharge planning per multidisciplinary team rounds. Yamileth Rojas MD 11/09/2018 8:20 Associated attestation - Lyndsey Carter - 11/17/2018 [id number] EDT Attending Attestation: I saw and evaluated the patient on 11/09/2018. Treatment plan reviewed with the patient and team. I agree with (and have edited in italics) the findings and plan of care as documented in the resident/PA's note. Lyndsey Carter MD Attending Psychiatrist Pager [phone] Yamileth Rojas MD - 11/08/2018 4738 EDT Inpatient Psychiatry Daily Progress Note Date of Service: 11/08/2018 Admit Date: 11/06/2018 Hospital day: LOS: 2 days Legal Status: Legal status: Voluntary Observation Level: Observation / visual check: Routine (Q hour day / janee, Q 1/2 hour night) Locus/Risk of Harm: Current locus of harm: 4 Reason for Admission/Chief Complaint: I've been snarfed so much I'm gone Clinical Update/24-hour Events: Yasmany started the increased dose of ziprasidone yesterday. She is curious about discharge planning, but understands she needs to stay until a safe plan is made. She says there is a family meeting planned for tomorrow morning. When asked about her thinking, she says it is up and down. She says she had tardive dyskinesia on one of her previous medications, and describes these symptoms as throat tightness and arm pain. She is not experiencing these symptoms currently. She reports eating too much andthat she has gained weight. She makes mention of being able to make the lights go on and off with her voice when seeing someone at the [facility]. She then says she can do a lot of weird things. We discussed her blood work and STI results (from June). She reports ongoing diarrhea and getting her period at random times but otherwise denies abdominal pain or vaginal discharge. She reports giving a stool sample in the ED. Medications: Current Facility-Administered Medications: acetaminophen (TYLENOL) tablet 325 mg oral Q4H PRN aluminum & magnesium hydroxide-simethicone (MYLANTA-DS) 400-400-40 mg/5 mL suspension 30 mL [id number] PRN docusate sodium (COLACE) capsule 100 mg oral Daily PRN hydrOXYzine (ATARAX) tablet 25 mg oral Q4H PRN ibuprofen (MOTRIN) tablet 400 mg oral Q6H PRN magnesium hydroxide (MILK OF MAGNESIA) 400 mg/5 mL suspension 30 mL oral Daily PRN melatonin tablet 3 mg oral AT BEDTIME PRN nicotine (NICOTROL) 10 mg inhaler 1 Inhaler inhalation Q2H PRN nicotine inhaler (delivery device) inhalation PRN risperiDONE (RISPERDAL M-TABS) disintegrating tablet 1 mg oral BID PRN senna (SENOKOT) tablet 1 Tab oral AT BEDTIME PRN traZODone (DESYREL) tablet 50 mg oral QHS ziprasidone (GEODON) capsule 40 mg oral BID (BREAKFAST/DINNER) Review of Systems: Appetite is normal. Was initially having difficulty sleeping, but this is improving. Mental Status Exam: Yasmany Harris is a 27 y.o. woman who appears her stated age. She was doing her hair in the bathroomwhen I entered. Their behavior was calm, polite, and cooperative with good eye contact. No psychomotor disturbances or abnormal/involuntary movements. Speech is unremarkable for rate, rhythm, tone, or volume. Patient has appropriate use of the [place]ese language. Stated mood is good and affect is euthymic, appropriate, and congruent. Thought process is linear. Thought content is non-bizarre and future-oriented. Patient speaks about family meeting tomorrow. No SI/HI expressed. No perceptual disturbances endorsed. Patient is alert and oriented x 4. 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 retirement memory intact. Patient has insight into her disease and understands she needs to stay for treatment. Judgment is good Physical Exam: BP 139/88 (BP Cuff Location: Left arm, Patient Position: Sitting) Pulse 91 Temp 36.9 ??C (98.4 ??F) (Temporal) Resp 16 Ht 163.8 cm (64.5) Wt (!) 113.8 kg (250 lb 12.8 oz) SpO2 100% BMI 42.38 kg/m?? Data Review: Labs: No results found for this or any previous visit (from the past 24 hour(s)). Other studies: N/A Assessment/Formulation: Yasmany Harris is a 27 y.o. woman with a historical diagnosis of schizophrenia (r/o schizotypal), anxiety, and multiple prior psychiatric hospitalizations who presented with her uncle to the ED due to severe distress from delusional thoughts that she is experiencing the apocalypse and persecution by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 section. AST Routine 11/06/2018 14:05 Results for this EDT procedure are i n the results section. ALKALINE PHOSPHATASE Routine 11/06/2018 14:05 Res ults for this EDT procedure are i n the results section. HEMOGLOBIN A1C Routine 11/06/2018 14:05 Results f or this EDT procedure are i n the results section. GGT Routine 11/06/2018 14:05 Results for this EDT procedure are i n the results section. CREATININE Routine 11/06/2018 14:05 Results for this EDT procedure are i n the results section. ALBUMIN Routine 11/06/2018 14:05 Results for this EDT procedure are i n the results section. ELECTROLYTES Routine 11/06/2018 14:05 Results for this EDT procedure are i n the results section. documented in this encounter Results POLYSUBSTANCE USE PANEL, URINE (11/09/2018 20:25 EDT) Heroin Metabolite NEGATIVE <10.0 ng/mL [facility] (6-AM) Screen [facility] Methadone Met Scn, U NEGATIVE <100.0 ng/mL [facility] Fentanyl Screen, U NEGATIVE <1 ng/mL [facility] Opioids Screen, U NEGATIVE <300 ng/mL [facility] Oxycodone Screen, U NEGATIVE <100.0 ng/mL [facility] Buprenorphine Scn, U NEGATIVE <5.0 ng/mL [facility] Benzodiazep Scn, U NEGATIVE <200 ng/mL [facility] Alcohol Met Scn, U NEGATIVE <500 ng/mL [facility] Zolpidem Screen, U NEGATIVE <20 ng/mL [facility] Amphetamines Scn, U NEGATIVE <500 ng/mL [facility] Cocaine Metab Scn, U NEGATIVE <150 ng/mL [facility] Ecstasy Screen, U NEGATIVE <500 ng/mL [facility] Barbiturates Scn, U NEGATIVE <200 ng/mL [facility] Comment: [facility] Performed by: [facility], [address], [address], [place], [place] SERVICES [address] Specimen Urine Performing Organization Address City/State/ZIP Code Phon e Number [facility]ORATORY [address] [place] [address] SERVICES TEST, URINE (11/09/2018 20:25 EDT) Result- Neg Neg [facility] Test, Ur Comment: LABORATORY NOTE: SERVICES False negative results may occur in women who are beyond 5-8 weeks gestation. Diagnosis of should be based on a correlation of test results with typical clinical signs and symptoms. Specimen Urine Performing Organization Address City/[facility] Phon e Number [facility]ORY [address] [place] [address] SERVICES LIPID PROFILE (INCLUDES CHOLESTEROL, TRIGLYCERIDES, HDL, LDL) (11/07/2018 12:52 EDT) Cholesterol 111 mg/dl [facility] Comment: LABORATORY Desirable:<200 SERVICES Borderline High:200-239 High:>[id number] Triglycerides 178 mg/dl [facility] Comment: LABORATORY Normal:<150 SERVICES Borderline High:150-199 High:200-499 Very High:>us=039 HDL 39 mg/dl [facility] Comment: LABORATORY Low:<40 SERVICES Normal:40-60 Desirable: >60 LDL, Calculated 36 mg/dl [facility] Comment: LABORATORY Optimal:<100 SERVICES Near Optimal:100-129 Borderline High:130-159 High:160-189 Very High:>md=456 Chol/HDL Ratio 2.8 [facility] LAB[facility]ORY SERVICES Fasting? Unknown [facility] SERVICES Non HDL Cholesterol 72 mg/dl [facility] Comment: LABORATORY Desirable:<130 SERVICES Borderline:130-159 High: 160-189 Very High: >[id number] Specimen Blood specimen (specimen) - Blood Performing Organization Address City/[facility] Phon e Number [facility]OR[facility]ORY [address] [place] [address] SERVICES EKG 12-LEAD (11/06/2018 15:11 EDT) Specimen Narrative [facility] EKG - 11/09/2018 10:4 1 EDT ? [facility] ? Test Date: ?2018-11-06 Pat Name: ? YASMANY HARRIS ? Department: ?? Shep 6 ? Room: ? SP618 Gender: ? Female ? Professional System Administrator: ?? [id number] : ?1990 ? Requested By: RUDY CAROL ANN Order Number: [id number] ? Reading MD: ?? ROZINA LOBEL MD ? Measurements Intervals ?[place] ? Rate: ? 81 ? P: ?43 IA: ? 128 ?QRS: ?44 QRSD: ? 88 ? T: ?42 QT: ? 353 ? QTc: ?412 ? Interpretive Statements SINUS RHYTHM Automated Interpretation. ??Provider Int erpretation to follow. Compared to ECG 10/05/2010 22:13:34 Sinus tachycardia no longer present I reviewed the tracing and have either a greed or edited the findings in this report. Electronically Signed On 9 10:41:02 EDT by ROZINA WASHBURN MD. Procedure Note Rozina Washburn MD - 11/09/2018 [facility] Test Date: 2018-11-06 Pat Name: YASMANY HARRIS Department: Kathleen p 6 Room: [facility] Gender: Female Professional System Administrator: [id number] : 1990 Requested By: RUDY REYES Order Number: [id number] Kyle MD: Jillian WASHBURN MD Measurements Intervals [place] Rate: 81 P: 43 IA: 128 QRS: 44 QRSD: 88 T: 42 QT: 353 QTc: 412 Interpretive Statements SINUS RHYTHM Automated Interpretation. Provider Inter pretation to follow. Compared to ECG 10/05/2010 22:13:34 Sinus tachycardia no longer present I reviewed the tracing and have either a greed or edited the findings in this report. Electronically Signed On 9 10:41:02 EDT by ROZINA WASHBURN MD. Performing Organization Address City/State/ZIP Code Phon e Number [facility] EKG HEMOGLOBIN A1C (11/06/2018 14:05 EDT) Hemoglobin A1C 5.4 % [facility] Comment: LABORATORY SERVICES Reference Range: <5.7% Normal 5.7-6.4% Prediabetes =>6.5% Diagnostic for diabetes (if confirmed) Goals for glycemic control in diabetes ADA 2017 For non adults with diabetes: ?? Target <7.0% For children and adolescents with type 1 diabetes: ?? Target <7.5% More or less stringent targets may be appropriate for individual patients. Est Avg Glucose 108 mg/dl [facility] Comment: LABORATORY SERVICES eAG represents the A1c result expressed as average glucose in mg/dl. Specimen Blood specimen (specimen) - Blood Performing Organization Address City/State/ZIP Code Phon e Number [facility] LABORATORY [address] [place] [address] SERVICES (ABNORMAL) COMPLETE BLOOD COUNT AND DIFFERENTIAL (11/06/2018 14:05 EDT) Pathologist Sig nature WBC 10.44 4.0 - 12.4 [facility] K/cm LABORATORY SERVICES RBC 5.43 (H) 3.86 - 5.04 [facility] M/[facility] LABORATORY SERVICES Hemoglobin 16.0 (H) 11.6 - 15.2 [facility] gm/dl LABORATORY SERVICES HCT 47.2 (H) 34.9 - 44.4 % [facility] LABORATORY SERVICES MCV 87 81 - 98 fl [facility] LAB[facility]ORY SERVICES MCH 29.5 26.7 - 33.3 pg [facility] LABORATORY SERVICES MCHC 33.9 32.1 - 35.9 [facility] gm/dl LABORATORY SERVICES RDW-CV 12.3 <14.7 % [facility] LABORATORY SERVICES RDW-SD 39.0 <50.4 fl [facility] LABORATORY SERVICES PLT 247 141 - 377 K/[facility] LABORATORY SERVICES MPV 10.1 9.5 - 12.7 fl [facility] LABORATORY SERVICES Neutrophils 52.4 % [facility] LABORATORY SERVICES Lymphocytes 39.8 % [facility] LABORATORY SERVICES Monocytes 5.9 % [facility] LABORATORY SERVICES Eosinophils 1.1 % [facility] LABORATORY SERVICES Basophils 0.4 % [facility] LABORATORY SERVICES Immature Grans 0.4 % [facility] LABORATORY SERVICES ABS Neutrophils 5.48 2.20 - 8.85 [facility] K/[facility] LABORATORY SERVICES ABS Lymphs 4.15 (H) 1.09 - 3.30 [facility] K/[facility] LABORATORY SERVICES ABS Monocytes 0.62 0.1 - 0.8 K/[facility] LABORATORY SERVICES ABS Eosinophils 0.11 0.03 - 0.61 [facility] K/formerly [facility] LABORATORY SERVICES ABS Basophils 0.04 0.01 - 0.11 [facility] K/[facility] LABORATORY SERVICES ABS Immature Grans 0.04 0 - 0.06 /[facility] LABORATORY SERVICES Type of Diff: Automated [facility] LABORATORY SERVICES Specimen Blood specimen (specimen) - Blood Performing Organization Address [facility]/ZIP [facility] Phon e Number [facility]ORY [address] [place] [address] SERVICES ALT (11/06/2018 14:05 EDT) Pathologist Sig nature ALT 17 <34 U/L [facility] Comment: LABORATORY SERVICES Slight hemolysis Results may be affected due to hemolysis. Specimen Blood specimen (specimen) - Blood Performing Organization Address [facility] Phon e Number [facility] LABOR[facility]ORY [address] [place] [address] SERVICES AST (11/06/2018 14:05 EDT) Pathologist Sig nature AST 23 15 - 46 U/L [facility] Comment: LABORATORY SERVICES Slight hemolysis Results may be affected due to hemolysis. Specimen Blood specimen (specimen) - Blood Performing Organization Address [facility] Phon e Number [facility]ORY [address] [place] [address] SERVICES ALBUMIN (11/06/2018 14:05 EDT) Pathologist Sig nature Albumin 4.4 3.4 - 4.9 g/dl [facility] Comment: LABORATORY SERVICES Slight hemolysis Results may be affected due to hemolysis. Specimen Blood specimen (specimen) - Blood Performing Organization Address [facility] Phon e Number [facility]ORY [address] [place] [address] SERVICES GGT (11/06/2018 14:05 EDT) Pathologist Sig nature GGT <13 <44 U/L [facility] Comment: LABORATORY SERVICES Slight hemolysis Results may be affected due to hemolysis. Specimen Blood specimen (specimen) - Blood Performing Organization Address [facility] Phon e Number [facility] LABORATORY [address] [place] [address] SERVICES ALKALINE PHOSPHATASE (11/06/2018 14:05 EDT) Total Alkaline 62 38 - 126 U/L [facility] Phosphatase Comment: [facility]ENTER [facility] Slight hemolysis SERVICES Hemolysis will decrease ALKP result Suggest re-evaluation if clinically indicated Specimen Blood specimen (specimen) - Blood Performing Organization Address [facility]/ZIP [facility] Phon e Number [facility]ORY [address] [place] [address] SERVICES CREATININE (11/06/2018 14:05 EDT) Creatinine 0.53Comment: Slight 0.52 - 1.04 [facility] hemolysis mg/dl LABORATORY SERVICES GFR, Calculated 130 >60 [facility] Comment: ml/min/1.73m2 LABORATORY eGFR calculated using CKD-EPI equation for SERVICES non Americans. Multiply eGFR by 1.16 for Americans. Specimen Blood specimen (specimen) - Blood Performing Organization Address [facility]/ZIP [facility] LABORATORY [address] [place] [address] SERVICES (ABNORMAL) BUN (11/06/2018 14:05 EDT) Pathologist Sig nature BUN 8 (L) 10 - 26 mg/dl [facility] Comment: LABORATORY SERVICES Slight hemolysis Results may be affected due to hemolysis. Specimen Blood specimen (specimen) - Blood Performing Organization Address [facility] LABORATORY [address] [place] [address] SERVICES ELECTROLYTES (11/06/2018 14:05 EDT) Pathologist Sig nature Sodium 139Comment: Slight 136 - 145 mEq/L [facility] hemolysis LABORATORY SERVICES Potassium 4.9 3.5 - 5.0 mEq/L [facility] Comment: LABORATORY SERVICES Slight hemolysis Hemolysis may elevate potassium result. Chloride 103Comment: Slight 96 - 110 mEq/L [facility] hemolysis LABORATORY SERVICES CO2 26Comment: Slight 22 - 32 mEq/L [facility] hemolysis LABORATORY SERVICES Specimen Blood specimen (specimen) - Blood Performing Organization Address [facility] LABORATORY [address] [place] [address] SERVICES (ABNORMAL) SCREENING GLUCOSE (11/06/2018 14:05 EDT) Glucose, Screening 114 (H) 70 - 100 [facility] Comment: mg/dl LABORATORY Slight hemolysis SERVICES Results may be affected due to hemolysis. Specimen Blood specimen (specimen) - Blood Performing Organization Address [facility] LABORATORY [address] [place] [address] SERVICES documented in this encounter Visit Diagnoses Diagnosis Disorganized schizophrenia ([facility]) ([facility] C) - Primary Disorganized schizophrenia, unspecified condition Anxiety Anxiety state, unspecified Marijuana use, continuous Chronic pain syndrome Tobacco dependence syndrome Tobacco use disorder documented in this encounter Administered Medications Inactive Administered Medications - up to 3 most recent administrations Medication Order MAR Action Action Date Dose Rate Site acetaminophen (TYLENOL) tablet 325 Given 11/13/2018 20:21 EDT 32 5 mg mg 325 mg, oral, EVERY 4 HOURS PRN, Starting on 11/06/18 at 1957, Until 11/14/18 at 2108, Pain, Routine Given 11/13/2018 7:14 EDT 325 mg Given 11/12/2018 21:56 EDT 325 mg docusate sodium (COLACE) capsule 100 mg Given 11/13/2018 12:06 EDT 100 mg 100 mg, oral, DAILY PRN, Starting on 11/06/18 at 1333, Until 11/14/18 at 2108, Constipation, Routine Given 2018 19:56 EDT 100 mg hydrOXYzine (ATARAX) tablet 25 mg Given 11/13/2018 20:21 EDT 25 mg 25 mg, oral, EVERY 4 HOURS PRN, Starting on 11/06/18 at 1333, Until 11/14/18 at 2108, Anxiety, Routine Given 2018 8:36 EDT 25 mg Given 11/10/2018 8:29 EDT 25 mg hydrOXYzine (ATARAX) tablet 50 mg Given 11/06/2018 8:16 EDT 50 mg 50 mg, oral, ONCE, 1 dose, Starting on 11/06/18 at 0815, Until 11/06/18 at 0816, STAT ibuprofen (MOTRIN) tablet 400 mg Given 11/06/2018 8:17 EDT 400 mg 400 mg, oral, ONCE, 1 dose, Starting on 11/06/18 at 0815, Until 11/06/18 at 0817, STAT ibuprofen (MOTRIN) tablet 400 mg Given 11/13/2018 20:20 EDT 400 mg 400 mg, oral, EVERY 6 HOURS PRN, Starting on 11/06/18 at 1957, Until 11/14/18 at 2108, Pain, Routine Given 11/13/2018 7:14 EDT 400 mg Given 11/06/2018 20:32 EDT 400 mg LORazepam (ATIVAN) tablet 1 mg Given 11/04/2018 18:49 EDT 1 mg 1 mg, oral, NOW X1, 1 dose, On Wed11/04/18 at 1845, STAT LORazepam (ATIVAN) tablet 1 mg Given 11/05/2018 0:09 EDT 1 mg 1 mg, oral, NOW X1, 1 dose, On 11/05/18 at 0015, STAT LORazepam (ATIVAN) tablet 1 mg Given 11/05/2018 13:56 EDT 1 mg 1 mg, oral, NOW X1, 1 dose, On 11/05/18 at 1400, STAT LORazepam (ATIVAN) tablet 1 mg Given 11/12/2018 14:46 EDT 1 mg 1 mg, oral, PRN, 1 dose, Starting on 11/12/18 at 0448, Until 11/12/18 at 1446, Anxiety, Routine LORazepam (ATIVAN) tablet 1 mg Given 11/13/2018 5:55 EDT 1 mg 1 mg, oral, PRN, 1 dose, Starting on 11/12/18 at 2002, Until 11/13/18 at 0555, Anxiety, Sleep, Routine LORazepam (ATIVAN) tablet 2 mg Given 11/05/2018 23:48 EDT 2 mg 2 mg, oral, NOW X1, 1 dose, On 11/05/18 at 2345, STAT melatonin tablet 3 mg Given 11/13/2018 20:21 EDT 3 mg 3 mg, oral, AT BEDTIME PRN, Starting on 11/06/18 at 1333, Until 11/14/18 at 2108, Other, Sleep, Routine nicotine (NICOTROL) 10 mg inhaler 1 Inha ler Given 11/05/2018 20:02 EDT 1 Inhaler 1 Inhaler, inhalation, EVERY 2 HOURS PRN, Starting on 11/05/18 at 0732, Until 11/14/18 at 2108, Smoking Cessation, STAT Given 11/05/2018 7:37 EDT 1 Inhaler nicotine inhaler (delivery device) Given 11/05/2018 20:02 EDT 1 Each 1 Each, inhalation, PRN, Starting on 11/05/18 at 0732, Until 11/14/18 at 2108, Smoking Cessation Given 11/05/2018 7:37 EDT 1 Each risperiDONE (RISPERDAL M-TABS) disintegrating Given 11/08/2018 1 4:25 EDT 1 mg tablet 1 mg 1 mg, oral, 2 TIMES DAILY PRN, Starting on 11/07/18 at 1012, Until 11/09/18 at 1110, Other, agitation or anxiety, Routine risperiDONE (RISPERDAL M-TABS) disintegrating Given 11/13/2018 5 :54 EDT 1 mg tablet 1 mg 1 mg, oral, DAILY PRN, Starting on 11/12/18 at 1530, Until Wed11/14/18 at 2108, agitation, Routine Given 11/12/2018 16:23 EDT 1 mg risperiDONE (RISPERDAL) tablet 1 mg Given 11/10/2018 11:45 EDT 1 mg 1 mg, oral, DAILY, First dose on Wed11/09/18 at 1130, Until Discontinued, STAT Given 11/09/2018 11:48 EDT 1 mg risperiDONE (RISPERDAL) tablet 2 mg Given 11/13/2018 20:22 EDT 2 mg 2 mg, oral, AT BEDTIME, First dose on Wed11/09/18 at 2100, Until Discontinued, Routine Given 11/12/2018 20:18 EDT 2 mg Given 2018 20:27 EDT 2 mg risperiDONE (RISPERDAL) tablet 2 mg Given 11/14/2018 8:59 EDT 2 mg 2 mg, oral, DAILY, First dose (after last modification) on Wed11/11/18 at 0900, Until Discontinued, Routine Given 11/13/2018 10:18 EDT 2 mg Given 11/12/2018 8:50 EDT 2 mg senna (SENOKOT) tablet 1 Tab Given 11/13/2018 12:06 EDT 1 Tablet 1 Tablet, oral, AT BEDTIME PRN, Starting on 11/06/18 at 1333, Until Wed11/14/18 at 2108, Constipation, Routine Given 2018 19:56 EDT 1 Tablet traZODone (DESYREL) tablet 50 mg Given 11/13/2018 20:20 EDT 50 mg 50 mg, oral, AT BEDTIME, First dose on Wed11/04/18 at 2300, Until Discontinued, STAT Given 11/12/2018 21:45 EDT 50 mg Given 2018 20:27 EDT 50 mg ziprasidone (GEODON) capsule 20 mg Given 11/06/2018 8:16 EDT 20 mg 20 mg, oral, 2 TIMES DAILY, First dose on Wed11/05/18 at 2100, Until Discontinued, STAT Given 11/05/2018 20:40 EDT 20 mg ziprasidone (GEODON) capsule 20 mg Given 11/07/2018 8:25 EDT 20 mg 20 mg, oral, 2 TIMES DAILY WITH BREAKFAST & DINNER, First dose (after last modification) on Wed11/06/18 at 2015, Until Discontinued, STAT Given 11/06/2018 20:32 EDT 20 mg ziprasidone (GEODON) capsule 20 mg Given 11/07/2018 10:48 EDT 20 mg 20 mg, oral, NOW X1, 1 dose, On Wed11/07/18 at 1100, Routine ziprasidone (GEODON) capsule 20 mg Given 11/10/2018 11:43 EDT 20 mg 20 mg, oral, 2 TIMES DAILY WITH BREAKFAST & DINNER, First dose (after last modification) on Wed11/09/18 at 1700, Until Discontinued, Routine Given 11/09/2018 17:17 EDT 20 mg ziprasidone (GEODON) capsule 20 mg Given 2018 8:25 EDT 20 mg 20 mg, oral, 2 TIMES DAILY WITH BREAKFAST & DINNER, 2 doses, First dose (after last modification) on Soraya 11/10/18 at 1700, Last dose on Wed11/11/18 at 0800, Routine Given 11/10/2018 17:17 EDT 20 mg ziprasidone (GEODON) capsule 40 mg Given 11/09/2018 8:08 EDT 40 mg 40 mg, oral, 2 TIMES DAILY WITH BREAKFAST & DINNER, First dose (after last modification) on Wed11/07/18 at 1700, Until Discontinued, STAT Given 11/08/2018 17:30 EDT 40 mg Given 11/08/2018 9:12 EDT 40 mg documented in this encounter Discontinued Medications Medication Sig Discontinue Reason Start Date End Date UNABLE TO FIND Med Name: Nexplanon 2018 implanted 08/13/2016 chlorhexidine (HIBICLENS) Wash affected area 9 11/14/2018 4 % liquidIndications: in shower daily Recurrent boils DULoxetine (CYMBALTA) 30 Take 1 Cap by mouth 9 11/14/2018 mg delayed release daily. capsuleIndications: Depression, unspecified depression type, Anxiety, Fibromyalgia risperiDONE (RISPERDAL) 2 Take 0.5 mg by 10/21/2018 11/14/2018 mg tabletIndications: mouth at bedtime. schizophrenia Take 2- 0.5tabs qhs benztropine (COGENTIN) 2 Take 2 mg by mouth 11/14/2018 mg tabletIndications: 2 times daily. drug-induced extrapyramidal reaction documented as of this encounter Active and Recently Administered Medications Times are shown in EDT. Scheduled Medication Order 11/12/2018 11/13/2018 11/14/2018 risperiDONE (RISPERDAL) tablet 2 mg 2017 (Given - Prov ider: Veronika Castle RN) 2021 (Given - Provider: Orlin Fraser, RN) 2100 (Cancele d Entry - Provider: Batch Job User Admin - Comment: Automatically canceled at discontinue of medication order) 2 mg, oral, AT BEDTIME, First dose on 11/09/18 at 2100, Until Discontinued, Routine risperiDONE (RISPERDAL) tablet 2 mg 0850 (Given - Prov ider: Veronika Castle RN) 1018 (Given - Provider: Veronika Castle RN) 0859 (G iven - Provider: Jones Deutsch RN) 2 mg, oral, DAILY, First dose on 11/11 at 0900, Until Discontinued, Routine traZODone (DESYREL) tablet 50 mg 2144 (Given - Provider: Jayashree Castle RN) 2019 (Given - Provider: Orlin Fraser, RHODA) 2100 (Canceled Entry - Provider: Batch Job User Admin - Comment: Automatically canceled at discontinue of medication order) 50 mg, oral, AT BEDTIME, First dose on 11/04/18 at 2300, Until Discontinued, STAT PRN Medication Order 11/12/2018 11/13/2018 11/14/2018 acetaminophen (TYLENOL) tablet 325 mg 6 (Given - Pr ovider: Veronika Castle RN) 0714 (Given - Provider: Betina Gomez RN )2020 (Given - Provider: Orlin Fraser, RN) 325 mg, oral, EVERY 4 HOURS PRN, Startin g 11/06/18 at 1957, Until 11/14/18 at 2108, Pain, Routine aluminum & magnesium hydroxide-simethico ne (MYLANTA-DS) 400-400-40 mg/5 mL suspension 30 mL 30 mL, oral, EVERY 4 HOURS PRN, Starting 11/06/18 at 1333, Until 11/14/18 at 2108, Indigestion, Routine docusate sodium (COLACE) capsule 100 mg 1206 (Given - Provider: Veronika Biswas, RHODA) 100 mg, oral, DAILY PRN, Starting 11/06/18 at 1333, Until Wed11/14/18 at 2108, Constipation, Routine hydrOXYzine (ATARAX) tablet 25 mg 0433 (Not Given - Pr ovider: Betina Gomez RN - Reason: Patient/family refused) 2020 (Given - Provider: Orlin Fraser RN) 25 mg, oral, EVERY 4 HOURS PRN, Starting 11/06/18 at 1333, Until 11/14/18 at 2108, Anxiety, Routine ibuprofen (MOTRIN) tablet 400 mg 0714 (G iven - Provider: Betina Gomez RN)2019 (Given - Provider: Orlin Fraser RN) 400 mg, oral, EVERY 6 HOURS PRN, Startin g 11/06/18 at 1957, Until Wed11/14/18 at 2108, Pain, Routine LORazepam (ATIVAN) tablet 1 mg (COMPLETED) 1446 (Given - Provider: Veronika Biswas, RHODA) 1 mg, oral, PRN, 1 dose, Starting 11/12/18 at 0448, Until Discontinued, Anxiety, Routine LORazepam (ATIVAN) tablet 1 mg (COMPLETED) 0555 (Given - Provider: Betina Gomez RN) 1 mg, oral, PRN, 1 dose, Starting 11/12/18 at 2002, Until 11/13/18 at 0555, Anxiety, Sleep, Routine magnesium hydroxide (MILK OF MAGNESIA) 400 mg/5 mL suspension 30 mL 30 mL, oral, DAILY PRN, Starting Sun 11/06 at 1333, Until Wed11/14/18 at 2108, Heartburn, Routine melatonin tablet 3 mg 2020 (Given - Provider: Matt Fraser RN) 3 mg, oral, AT BEDTIME PRN, Starting 11/06/18 at 1333, Until Wed11/14/18 at 2108, Other, Sleep, Routine nicotine (NICOTROL) 10 mg inhaler 1 Inhaler 1 Inhaler, inhalation, EVERY 2 HOURS PRN , Starting 11/05/18 at 0732, Until 11/14/18 at 2108, Smoking Cessation, STAT nicotine inhaler (delivery device) 1 Each, inhalation, PRN, Starting Sat at 0732, Until 11/14/18 at 2108, Smoking Cessation risperiDONE (RISPERDAL M-TABS) disintegrating tablet 1 mg 1623 (Given - Provider: Veronika Castle, RN) 0554 (Given - Provider: Betina Gomez RN) 1 mg, oral, DAILY PRN, Starting Sat at 1530, Until 11/14/18 at 2108, agitation, Routine senna (SENOKOT) tablet 1 Tab 1206 (Given - Provi mandie: Veronika Castle, RHODA) 1 Tab, oral, AT BEDTIME PRN, Starting [place] n 11/06/18 at 1333, Until Wed11/14/18 at 210, Constipation, Routine documented in this encounter Orders Medications Ordered That Might Not Have Count Last Ord ered Date First Ordered Date Been Administered risperiDONE (RISPERDAL M-TABS) 1 11/12/2018 disintegrating tablet 2 mg aluminum & magnesium hydroxide-simethicone 1 11/06 (MYLANTA-DS) 400-400-40 mg/5 mL suspension 30 mL magnesium hydroxide (MILK OF MAGNESIA) 400 1 11/06 mg/5 mL suspension 30 mL Procedures Count Last Ordered Date First Ordered Date ECG REPORT - SCANNED 2 11/17/2018 11/09/2018 Nursing Count Last Ordered Date First Ordered Date ACTIVITY INSTRUCTIONS 11/14/2018 PATIENT AT LOW RISK FOR VTE: RISK OF 11/06/2018 MECHANICAL PROPHYLAXIS OUTWEIGHS PATIENT AT LOW RISK FOR VTE: RISK OF 11/06/2018 PHARMACOLOGIC PROPHYLAXIS OUTWEIG Admission Count Last Ordered Date First Ordered Date ED BED REQUEST 11/06/2018 STATUS: INPATIENT ACUTE ADMISSION 11/06/2018 Transfer Count Last Ordered Date First Ordered Date NOTIFY PPS OF DISCHARGE COMPLETE 1 11/14/2018 NOTIFY PPS OF ROOM CHANGE COMPLETE 2 11/13/2018 11/07/2018 CHANGE ATTENDING TO: 11/08/2018 PPS NOTIFICATION OF PATIENT ARRIVAL ON 9 UNIT Discharge Count Last Ordered Date First Ordered Date DISCHARGE PATIENT 1 11/14/2018 Legal Count Last Ordered Date First Ordered Date MISCELLANEOUS DISCHARGE INSTRUCTIONS 7 11/14/2018 documented in this encounter Care Teams Superintendent Commissary Relationship Specialty Start Date End Date Sana Muhammad MD PCP - General 12/02/16 08/05/20 documented as of this encounter
--- OUTSIDE RECORDS SUMMARY | 2021-08-16 23:31 | XMS_ITS | Encounter Summary ---
:1990 Author Organization [facility] Address [address] [place] [address] Care Team Providers Name Role Phone Sana Muhammad MD Primary Care Provider Reason for Visit Reason Onset Date Comments Patient Information Update 10/24/2018 Encounter Details Date Type Department Care Team Description 10/24/2018 Telephone [facility] Sana Muhammad Pa [facility] Family Medicine - MD Update [address] [id number] [phone] (Wo rk) Social History Tobacco Use Types [...] Notes Telephone Encounter - Nadine Bentley - 10/24/2018 0823 EDT This patient was referred to Mandy by [facility]. Mandy saw her on 10/21/18 and prescribed Risperidone 1 mg at bedtime. She was seen in the ER on 10/23/18 presenting with the same symptoms thattina saw her for, she was discharged to home. She is planing to call her PCP office. Mandy is recommending that the [facility] Counseling office make a referral to the [facility] for their ALL TERRAIN VEHICLE TECHNICIAN program. documented in this encounter Plan of Treatment [...] more about your health please v isit: [email or web address] documented as of this encounter Visit Diagnoses Not on filedocumented in this encounter Care Teams Powertrain Engineer Relationship Specialty Start Date End Date Sana Muhammad MD PCP - General 12/02/16 08/05/20 documented as of this encounter
--- OUTSIDE RECORDS SUMMARY | 2021-08-16 23:31 | XMS_ITS | Encounter Summary ---
:[address] [facility] Address [address] [place] [address] Care Team Providers Name Role Phone Sana Muhammad MD Primary Care Provider Reason for Visit Reason Onset Date Comments Appointment Related 07/15/2018 Encounter Details Date Type Department Care Team Description 07/15/2018 Telephone [facility] Sana Muhammad Ap pointment Related Family Medicine - [address] [phone] [place], [place] [id number] [phone] Social History Tobacco Use Types Packs/Day Years [...] this encounter Miscellaneous Notes Telephone Encounter - Doug Rojo - 07/15/2018 0820 EDT Unable to leave message, no voicemail set up. elephone Encounter - Doug Rojo - 07/15/2018 0818 EDT ----- Message from Yamileth Hui MD [...] about your health please v isit: [email or web address] documented as of this encounter Visit Diagnoses Not on filedocumented in this encounter Care Teams Transplant Surgeon Relationship Specialty Start Date End Date Sana Muhammad MD PCP - General 12/02/16 08/05/20 documented as of this encounter
--- OUTSIDE RECORDS SUMMARY | 2021-08-16 23:32 | XMS_ITS | Encounter Summary ---
:1990 Author Organization [facility] Address [address] [place] [address] Care Team Providers Name Role Phone Sana Muhammad MD Primary Care Provider Encounter Details Date Type Department Care Team Description 02/15/2017 Orders Only [facility] Sana Muhammad Ne ed for vaccination Family Medicine - MD (Primary Dx) [address] [phone] (Wo rk) Social History Tobacco Use Types [...] of a physical, mental, or emotional condition, No 12/02/2016 does this person have difficulty doing errands alone such as visiting a doctor's office or shopping? Cognitive Status Response Date of Assessment Because of a physical, mental, or emotional condition, No 12/02/2016 does this person have serious difficulty concentrating, remembering, or making decisions? documented as of this encounter Plan of Treatment Not on filedocumented as of this encounter Visit Diagnoses Diagnosis Need for vaccination - Primary Need for prophylactic vaccination and in oculation against unspecified single disease documented in this encounter Care Teams Launderette Attendant Relationship Specialty Start Date End Date Sana Muhammad MD PCP - General 12/02/16 08/05/20 documented as of this encounter
--- OUTSIDE RECORDS SUMMARY | 2021-08-16 23:32 | XMS_ITS | Encounter Summary ---
:1990 Author Organization [facility] Address [address] [place] [address] Care Team Providers Name Role Phone Filipe Bose MD Primary Care Provider Reason for Visit Reason Onset Date Comments Other 07/02/2016 NEXPLANON ORDER FORM Encounter Details Date Type Department Care Team Description 07/02/2016 Telephone [facility] Dyllan Bose MD Other (NEXPLANON Family Medicine - [address] [place] [address] ORDER [place]) [place] [address] [place] [address] [phone] Social History Tobacco Use Types Packs/Day Years [...] a physical, mental, or emotional condition, No 06/26/2016 does this person have difficulty doing errands alone such as visiting a doctor's office or shopping? Cognitive Status Response Date of Assessment Because of a physical, mental, or emotional condition, No 06/26/2016 does this person have serious difficulty concentrating, remembering, or making decisions? documented as of this encounter Miscellaneous Notes Telephone Encounter - Mita Johnson - 07/02/2016 1451 EDT Left message on machine - patient will need to stop by the office and sign a Nexplanon form so that we may order the device. Once the device arrives, we may schedule. documented in this encounter Plan of Treatment Not on filedocumented as of this encounter Visit Diagnoses Not on filedocumented in this encounter Care Teams Cytotechnologist/Cytology Supervisor Relationship Specialty Start Date End Date Filipe Bose MD PCP - General 11/07/15 12/01/16 documented as of this encounter
--- OUTSIDE RECORDS SUMMARY | 2021-08-16 23:32 | XMS_ITS | Encounter Summary ---
:1990 Author Organization [facility] Address [address] [place] [address] Care Team Providers Name Role Phone Filipe Bose MD Primary Care Provider Encounter Details Date Type Department Care Team Description 08/13/2016 Orders Only [facility] Jacquelyn Villavicencio non in place Family Medicine - (Primary D x) [address] [address] Social History Tobacco Use Types [...] a physical, mental, or emotional condition, No 08/13/2016 does this person have difficulty doing errands alone such as visiting a doctor's office or shopping? Cognitive Status Response Date of Assessment Because of a physical, mental, or emotional condition, No 08/13/2016 does this person have serious difficulty concentrating, remembering, or making decisions? documented as of this encounter Plan of Treatment Not on filedocumented as of this encounter Visit Diagnoses Diagnosis Nexplanon in place - Primary Presence of subdermal contraceptive georgette ce documented in this encounter Care Teams Financial Legal Assistant Relationship Specialty Start Date End Date Filipe Bose MD PCP - General 11/07/15 12/01/16 documented as of this encounter
--- OUTSIDE RECORDS SUMMARY | 2021-08-16 23:32 | XMS_ITS | Encounter Summary ---
:1990 Author Organization [facility] Address [address] [place] [address] Care Team Providers Name Role Phone Filipe Bose MD Primary Care Provider Reason for Visit Reason Onset Date Comments Pharmacy 06/30/2016 Encounter Details Date Type Department Care Team Description 06/30/2016 Telephone [facility] Family Moon Bose MD Pharmacy Medicine - [address] [address] [place], [place] [address] [phone] Social History Tobacco Use Types Packs/Day Years [...] this encounter Miscellaneous Notes Telephone Encounter - Thelma Caballero LPN - 07/02/2016 0800 EDT Left message on pharmacy voicemail re: dosing of geodon 20mg elephone Encounter - Thelma Caballero LPN - 07/02/2016 0800 EDT Images from the original note were not included. Filipe Bose MD Deforge, Carri, LPN; P [facility] Rn ? It should be daily PRN elephone Encounter - Thelma Caballero LPN - 07/01/2016 0933 EDT Message relayed to pharmacy--they needed to know what other was as well as frequency on the 20mg PRN. Please review and advise elephone Encounter - Thelma Caballero LPN - 07/01/2016 0929 EDT Images from the original note were not included. ?? Filipe Bose MD Smith, Carmen, RN; P [facility] Rn ? The PRN is for psychosis symptoms. Ephraim Bose elephone Encounter - Doug Rojo - 06/30/2016 1303 EDT Pharm needs clarification on the directions for the ziprasidone (GEODON) 20 mg capsule; sig says to take one cap by mouth as needed for other Please clarify what other is. documented in this encounter Plan of Treatment Not on filedocumented as of this encounter Visit Diagnoses Not on filedocumented in this encounter Care Teams Face Man Relationship Specialty Start Date End Date Filipe Bose MD PCP - General 11/07/15 12/01/16 documented as of this encounter
--- OUTSIDE RECORDS SUMMARY | 2021-08-16 23:32 | XMS_ITS | Encounter Summary ---
:1990 Author Organization [facility] Address [address] [place] [address] Care Team Providers Name Role Phone Filipe Bose MD Primary Care Provider Reason for Visit Reason Onset Date Comments Medications Refill 04/25/2016 Encounter Details Date Type Department Care Team Description 04/25/2016 Refill [facility] Dyllan Bose MD Medications Refill Family Medicine - [address] [place] [address] [phone] [place], [place] [id number] [phone] Social History Tobacco Use Types Packs/Day Years Used Date Current Every Day Smoker 0.25 10 Smokeless Tobacco: Never Used Comments: occasional Alcohol Use Standard Drinks/Week Comments No 0 (1 standard drink = 0.6 oz pure alcoho l) occ Sex Assigned at Date Recorded Not on file documented as of this encounter Functional Status Functional Status Response Date of Assessment Because of a physical, mental, or emotional condition, No 04/13/2016 does this person have difficulty doing errands alone such as visiting a doctor's office or shopping? Cognitive Status Response Date of Assessment Because of a physical, mental, or emotional condition, Yes 04/13/2016 does this person have serious difficulty concentrating, remembering, or making decisions? documented as of this encounter Miscellaneous Notes Telephone Encounter - Doug Rojo - 04/27/2016 9689 EST Patient is not out of this medication and doesn't need a refill at this time documented in this encounter Plan of Treatment Not on filedocumented as of this encounter Visit Diagnoses Not on filedocumented in this encounter Care Teams Hand Driller Relationship Specialty Start Date End Date Filipe Bose MD PCP - General 11/07/15 12/01/16 documented as of this encounter
--- OUTSIDE RECORDS SUMMARY | 2021-08-16 23:32 | XMS_ITS | Encounter Summary ---
:1990 Author Organization [facility] Address [address] [place] [address] Care Team Providers Name Role Phone Sana Muhammad MD Primary Care Provider Reason for Visit Reason Comments Other Encounter Details Date Type Department Care Team Description 05/31/2017 Refill [facility] Family Sana Muhammad MD Other Medicine - [address] [place] [address] [place], [place] [address] [phone] Social History Tobacco Use Types Packs/Day Years [...] a physical, mental, or emotional condition, No 05/21/2017 does this person have difficulty doing errands alone such as visiting a doctor's office or shopping? Cognitive Status Response Date of Assessment Because of a physical, mental, or emotional condition, No 05/21/2017 does this person have serious difficulty concentrating, remembering, or making decisions? documented as of this encounter Ordered Prescriptions Prescription Sig Dispensed Refills Start Date End Date benztropine (COGENTIN) 2 take 2 tablets by 360 Tab 0 05/0709/01/2017 mg tabletIndications: mouth twice a day Paranoid schizophrenia (HCC-CMS) (HCC) documented in this encounter Miscellaneous Notes Telephone Encounter - Yasmany Moyer, RHODA - 05/31/2017 1100 EDT Medication(s) Requested: Benztropine 2 mg [facility] Is patient out of medication? Unknown Last Refill Date: 02/26/17 for 360 with 0 refills Last Visit Date with Ordering Provider: 05/21/17 Next Non-Acute Visit Date Scheduled with Care Team: Yes. 06/01/17 YASMANY MOYER RN 05/31/2017 11:03 documented in this encounter Plan of Treatment Not on filedocumented as of this encounter Goals Goal Patient Goal Associated Recent Patient-Stated? 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) ([facility]) - Primary Paranoid schizophrenia, unspecified cond ition documented in this encounter Discontinued Medications Medication Sig Discontinue Reason Start Date End Date benztropine (COGENTIN) 2 Take 2 Tabs by Reorder 02/26/2017 0 05/31/2017 mg tabletIndications: mouth 2 times Paranoid schizophrenia daily. ([facility]) ([facility]) documented as of this encounter Care Teams Yarn Conditioner Relationship Specialty Start Date End Date Sana Muhammad MD PCP - General 12/02/16 08/05/20 documented as of this encounter
--- OUTSIDE RECORDS SUMMARY | 2021-08-16 23:32 | XMS_ITS | Encounter Summary ---
:1990 Author Organization [facility] Address [address] [place] [address] Care Team Providers Name Role Phone Sana Muhammad MD Primary Care Provider Reason for Visit Reason Comments Other Encounter Details Date Type Department Care Team Description 10/04/2017 Refill [facility] Family Sana Muhammad MD Other Medicine - [address] [place] [address] [place], [place] [address] [phone] Social History Tobacco Use Types Packs/Day Years [...] Sig Dispensed Refills Start Date End Date cyclobenzaprine (FLEXERIL) take 1 tablet by 30 Tab 5 03/21/2018 10 mg tablet mouth once daily at bedtime documented in this encounter Miscellaneous Notes Telephone Encounter - Ernestine Polanco RN - 10/05/2017 0849 EDT Medication(s) Requested: Flexeril 10 mg on 02/26/17 for 30 with 5 refills Preferred Pharmacy: [facility] Is patient out of medication? Unknown Last Refill Date: See above Last Visit Date with Ordering Provider: 08/25/17 Next Non-Acute Visit Date Scheduled with Care Team: No. Ernestine Polanco RN 10/05/2017 8:50 documented in this encounter Plan of Treatment Not on filedocumented as of this encounter Goals Goal Patient Goal Associated Recent Patient-Stated? 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[place], dependence Vania syndrome documented as of this encounter Visit Diagnoses Not on filedocumented in this encounter Discontinued Medications Medication Sig Discontinue Reason Start Date End Date cyclobenzaprine (FLEXERIL) Take 1 Tab by Reorder 02/26/2017 10/04/2017 10 mg tablet mouth at bedtime. documented as of this encounter Care Teams Personal Health Coach Relationship Specialty Start Date End Date Sana Muhammad MD PCP - General 12/02/16 08/05/20 documented as of this encounter
--- OUTSIDE RECORDS SUMMARY | 2021-08-16 23:32 | XMS_ITS | Encounter Summary ---
:1990 Author Organization [facility] Address [address] [place] [address] Care Team Providers Name Role Phone Filipe Bose MD Primary Care Provider Reason for Referral Office Procedure (Routine) - Closed Specialty Diagnoses / Procedures Referred By Contact Refer red To Contact Diagnoses Neck pain Right arm pain Loretta Pollock PA-C [address] [place] [address] Referral ID Status Reason Start Date Expiration Date Visits V isits Requested Authorized [id number] Closed Specialty 04/13/2016 1 1 Services Required Question Answer Reason for Request: C7-T1 TLESI Comments Pending updated cervical MRI adiology Services (Routine) - Closed Specialty Diagnoses / Procedures Referred By Contact Refer red To Contact Diagnoses Neck pain Right arm pain Loretta Pollock PA-C Procedures MR CERVICAL SPINE WO CONTRAST [address] [place] [address] Referral ID Status Reason Start Date Expiration Date Visits Requ ested Visits Authorized [id number] Closed 04/13/2016 1 1 Reason for Visit Reason Comments Neck Pain Consult (Routine) - Specialty Report Received Specialty Diagnoses / Procedures Referred By Contact Refer red To Contact Orthopedic Surgery Diagnoses Cervicalgia Alexander Santos Tilley Spine MD [place] [address] [place], [place] [id number] Fax: Referral ID Status Reason Start Expiration Visits Visits Date Date Requested Authorized [id number] Specialty Specialty 1 1 Report Services 6 Received Required Encounter Details Date Type Department Care Team Description 04/13/2016 Office Visit [facility] Loretta Pollock Nec k pain (Primary Dx); Spine Program - PA-C Right arm pa in [address] [place] [address] Social History Tobacco Use Types Packs/Day Years [...] - Inhaled Oxygen Concentration - - Weight 129.3 kg (285 lb) 04/13/2016 1019 EST Height 162.6 cm (5' 4) 04/13/2016 1019 EST Body Mass Index 48.92 04/13/2016 1019 EST documented in this encounter Functional Status [...] documented as of this encounter Progress Notes Loretta Pollock PA - 04/13/2016 1045 EST Mary Grace Harris is being seen as a consultation from Dr. Santos. Chief Complaint Patient presents with ??? Neck Pain The primary encounter diagnosis was Neck pain. A diagnosis of Right arm pain was also pertinent to this visit. HPI ALFREDO Brody is a 25-year-old female who began experiencing neck and right upper extremity symptoms backin 2004 when she was playing football in high school. Symptoms have remained the same since the initial injury. She currently rates her pain as 7/10. Pain localizes to the right lateral aspect of her neck, radiating up to the base of her head, into the right shoulder, shoulder blade over the top of the shoulder, and intermittently down the lateral arm and through the dorsal forearm. She endorses intermittent dysesthesia involving bilateral fingers and toes. The neck pain is constant. She has done multiple rounds and years of physical therapy including treatment by 2 different physical therapists for years. She had done chiropractic manipulation, acupuncture and some trigger point injections with steroid without relief. She has been treated with Vicodin while she was in high school, hydromorphone in college and currently, using Flexeril, which helps her calm down, but does not help with the pain. She also notes, a piece of bone that came off of my shoulder, seen on an x-ray years ago, which was not seem more recently. She notes also that a physical therapist told her that her ribs are not moving properly. She currently is on SSI, and has a 3-year-old son and lives with her fiance. She recently sent in paperwork to get a medical marijuana license. Patient Active Problem List Diagnosis ??? Depression ??? Celiac disease ??? Anxiety ??? Paranoid schizophrenia ??? Chronic pain syndrome ??? Supervision of normal first ??? Tobacco dependence syndrome Past Medical History: Diagnosis Date ??? Asthma ??? Asthma, exercise induced ??? Fibromyalgia ??? Laceration 12/04/06 left 5th digit tendon,nerve laceration ??? Mental disorder ??? Myofascial pain right shoulder and neck myofascial pain ??? Psychiatric problem anxiety ??? Schizophrenia, paranoid ??? Sciatica ??? Scoliosis ??? Tendinitis ??? Torticollis Past Surgical History: Procedure Laterality Date ??? FINGER SURGERY left ??? WISDOM TOOTH EXTRACTION Social History Substance Use Topics ??? Smoking status: Current Every Day Smoker Packs/day: 0.25 Years: 10.00 ??? Smokeless tobacco: Never Used Comment: occasional ??? Alcohol use No Comment: occ Family History Problem Relation Age of Onset ??? Schizophrenia Mother ??? Diabetes Maternal Grandfather ??? Bipolar Disorder Other uncle Current Outpatient Prescriptions Medication Sig Dispense Refill ??? albuterol 90 mcg/actuation inhaler Inhale 2 Puffs as directed every 4 hours. 3 Inhaler 3 ??? benztropine (COGENTIN) 2 mg tablet Take 2 Tabs by mouth 2 times daily for 30 days. 120 Tab 2 ??? clindamycin (CLEOCIN T) 1 % external solution Apply topically 2 times daily. use thin film on affected area (Patient not taking: Reported on 03/25/2016) 1 Bottle 1 ??? cyclobenzaprine (FLEXERIL) 10 mg tablet Take 1 Tab by mouth 2 times daily as needed for Muscle Spasms. 30 Tab 1 ??? LORazepam (ATIVAN) 1 mg tablet Take 1 Tab by mouth 2 times daily. Take 1 tab BID, third tab PRN Daily Max: 2 mg 75 Tab 0 ??? LORazepam (ATIVAN) 1 mg tablet Take 1 Tab by mouth 3 times daily as needed for Anxiety. Daily Max: 3 mg (Patient taking differently: Take 1 mg by mouth 2 times daily. ) 15 Tab 1 ??? medroxyPROGESTERone (DEPO-PROVERA) 150 mg/mL syringe Inject 150 mg into the muscle every 12 weeks. 1 mL 0 ??? perphenazine (TRILAFON) 2 mg tablet Take 1 Tab by mouth daily. 30 Tab 5 ??? perphenazine (TRILAFON) 4 mg tablet Take 1 Tab by mouth as needed (can take 1-2 tabs PRN in addition to her 2 mg (maximum 10 mg dose)). 30 Tab 5 ??? sertraline (ZOLOFT) 100 mg tablet Take 1 Tab by mouth at bedtime. Unknown dose 30 Tab 5 ??? ziprasidone (GEODON) 20 mg capsule Take 1 Cap by mouth as needed for Other. 60 Cap 2 ??? ziprasidone (GEODON) 60 mg capsule Take 2 Caps by mouth at bedtime. 60 Each 5 ??? ziprasidone (GEODON) 80 mg capsule Take 1 Cap by mouth daily. 30 Each 5 Current Facility-Administered Medications Medication Dose Route Frequency Provider Last Rate Last Dose ??? medroxyPROGESTERone (DEPO-PROVERA) injection 150 mg 150 mg intramuscular q12wk Filipe Bose MD 150 mg at 03/13/16 1023 Allergies Allergen Reactions ??? Gluten Protein ??? Haldol [Haloperidol Lactate] paralysis ??? Paxil [Paroxetine Hcl] Nausea And Vomiting Review of Systems Constitutional: Positive for activity change. Eyes: Negative for visual disturbance. Respiratory: Negative for shortness of breath. Cardiovascular: Negative for chest pain. Gastrointestinal: Negative for abdominal pain. Genitourinary: Negative for difficulty urinating. Musculoskeletal: Positive for back pain, neck pain and neck stiffness. Skin: Negative for rash. Neurological: Negative for numbness. Hematological: Does not bruise/bleed easily. Psychiatric/Behavioral: The patient is not nervous/anxious. Physical Exam Constitutional: She is oriented to person, place, and time. She appears well- developed and well-nourished. Eyes: EOM are normal. Cardiovascular: Intact distal pulses. Pulmonary/Chest: Effort normal. Neurological: She is alert and oriented to person, place, and time. Skin: Skin is warm and dry. Psychiatric: She has a normal mood and affect. Ortho Exam Neurologic Exam Mental Status Oriented to person, place, and time. Cranial Nerves CN III, IV, Extraocular motions are normal. Physical Exam Diffuse palpable tenderness right cervical paraspinals into the right upper trapezius, medial scapula. Decreased right cervical rotation with full range of motion, flexion and extension. Spurlings elicits pain over the right upper trapezius to the superior shoulder. Sensation to light touch throughouther upper extremities is intact bilaterally, 4/5 right wrist extension, otherwise full strength bilateral upper extremities. One biceps, brachioradialis, triceps reflexes bilaterally. Negative bilateral Mccall's. Diagnostic Imaging Cervical MRI without contrast 04/25/2010 reveals a small central disk protrusion at C6-7 without central stenosis or foraminal stenosis. AP lateral flexion, extension radiographs of the cervical spine 05/23/2010: Loss of the normal cervical lordosis with the apex centered at C5-6. There is no subluxation or dynamic instability. Assessment and Plan Mary Grace is a 25-year-old female with neck and right upper extremity pain, may be related to cervical degenerative changes at C6-7 with a radiculitis, though, I believe there is also a myofascial component and she does suffer from chronic pain syndrome. She does have an MRI from 2010 revealing some cervical degenerative changes at C6-7, though symptoms do appear to be out of proportion to her MRI findings. We discussed further treatment options including muscle relaxants, neuroleptics, trial of a cervical epidural injection, which may or may not help. Surgery would unlikely provide satisfactory relief, given her fibromyalgia and chronic pain syndrome. She is interested in a trial of a cervical epidural injection. Therefore, we will update her MRI and she will follow up as needed. Otherwise we diddiscuss that she may perform all activities as tolerated, that she cannot damage anything. She is interested in continuing with [facility]. We discussed the mind and body clinic, though, she is not interested in this. We discussed further exercise and weight loss, parascapular strengthening and she plans to return to the gym. Other Orders Placed This Visit Procedures ??? MR CERVICAL SPINE WO CONTRAST ??? Amb Pain Procedure Dr. Gracia was the attending physician available in the clinic today if needed. A consultation was not required. documented in this encounter Plan of Treatment Scheduled Referrals Name Type Priority Associated Diagnoses Order S chedule AMB PAIN PROCEDURE Outpatient Referral Routine Neck pain Ordered: Right arm pain 04/13/2016 documented as of this encounter Procedures Procedure Name Priority Date/Time Associated Diagnosis Comme nts MR CERVICAL SPINE Routine 05/27/2016 17:34 Neck pain Results for this WO CONTRAST EDT Right arm pain procedure are in the results section. documented in this encounter Results MR CERVICAL SPINE WO CONTRAST (05/27/2016 17:34 EDT) Anatomical Region Laterality Modality Other Specimen Narrative [facility] - 05/28/2016 8:57 EDT MRI Cervical Spine without Contrast HISTORY: Neck and right arm pain. TECHNIQUE: Multisequence and multiplanar MRI of the cervical spine without intravenous contrast per standar d department protocol. COMPARISON: Cervical spine MRI 04/25/2010 . Brain MRI 09/13/2010. FINDINGS: Many sequences are limited due to motion artifacts. There is reversal of lordosis, apex at C 5. The alignment is otherwise maintained. The vertebral body heights are normal. Bone marrow signal characteristics are unrema rkable. The cervical cord demonstrates no definite signal abnormal ity. The visible cervical soft tissues and intracranial contents a re unremarkable. C2-C3, C3-C4, and C4-C5: No significant disc abnormality or facet arthropathy to cause spinal canal or colt ral foraminal stenosis. C5-C6: There is a small circumferential disc bulge with minimal bilateral uncovertebral hypertrophy. The re is no spinal canal or neural foraminal stenosis. C6-C7: There is a small circumferential disc bulge which flattens the ventral thecal sac. There is no spin al canal or neural foraminal stenosis. C7-T1 and visible upper thoracic levels: No significant disc abnormality or facet arthropathy to caus e spinal canal narrowing or neural foraminal stenosis. IMPRESSION: Very mild degenerative change without sp inal canal or neural foraminal stenosis at any level. No definite cervical cord signal abnorma lity. Procedure Note Julián Wilson MD - 05/28/2016 MRI Cervical Spine without Contrast HISTORY: Neck and right arm pain. TECHNIQUE: Multisequence and multiplanar MRI of the cervical spine [facility]. COMPARISON: Cervical spine MRI 04/25/2010 . Brain MRI 09/13/2010. FINDINGS: Many sequences are limited due to motion artifacts. There is reversal of lordosis, apex at C 5. The alignment is otherwise maintained. The vertebral body heights are normal. Bone marrow signal characteristics are unrema rkable. The cervical cord demonstrates no definite signal abnormal ity. The visible cervical soft tissues and intracranial contents a re unremarkable. C2-C3, C3-C4, and C4-C5: No significant disc abnormality or facet arthropathy to cause spinal canal or colt ral foraminal stenosis. C5-C6: There is a small circumferential disc bulge with minimal bilateral uncovertebral hypertrophy. The re is no spinal canal or neural foraminal stenosis. C6-C7: There is a small circumferential disc bulge which flattens the ventral thecal sac. There is no spin al canal or neural foraminal stenosis. C7-T1 and visible upper thoracic levels: No significant disc abnormality or facet arthropathy to caus e spinal canal narrowing or neural foraminal stenosis. IMPRESSION: Very mild degenerative change without sp inal canal or neural foraminal stenosis at any level. No definite cervical cord signal abnorma lity. Performing Organization Address City/State/ZIP Code Phon e Number [facility] [place] documented in this encounter Visit Diagnoses Diagnosis Neck pain - Primary Cervicalgia Right arm pain Pain in limb documented in this encounter Care Teams Telecommunications Analyst Relationship Specialty Start Date End Date Filipe Bose MD PCP - General 11/07/15 12/01/16 documented as of this encounter
--- OUTSIDE RECORDS SUMMARY | 2021-08-16 23:32 | XMS_ITS | Encounter Summary ---
:1990 Author Organization [facility] Address [address] [place] [address] Care Team Providers Name Role Phone Sana Muhammad MD Primary Care Provider Reason for Visit Reason Onset Date Comments Labs Only 06/11/2017 Encounter Details Date Type Department Care Team Description 06/11/2017 Telephone [facility] Family Sana Muhammad MD Labs Only Medicine - [address] [address] [place], [place] [id number] [phone] Social History Tobacco Use Types Packs/Day Years [...] a physical, mental, or emotional condition, Yes 06/10/2017 does this person have difficulty doing errands alone such as visiting a doctor's office or shopping? Cognitive Status Response Date of Assessment Because of a physical, mental, or emotional condition, Yes 06/10/2017 does this person have serious difficulty concentrating, remembering, or making decisions? documented as of this encounter Miscellaneous Notes Telephone Encounter - Barbara Perea - 06/11/2017 1521 EDT Reason for Call: Labs Only Summary/Symptoms:patient doesn't need to bee redrawn yet as the supervisors at the lab are looking into the situation. Barbara Perea 06/11/2017 15:21 elephone Encounter - Thelma Caballero LPN - 06/11/2017 0835 EDT Phone call to [facility] customer service Based on notes and documentation the nursing staff raghav an SST and Lavender top tube. The lab will f/u with receiving and determine if the sample could be located. Telephone Encounter - Lamar Pavon - 06/11/2017 0825 EDT Reason for Call: Labs Only Summary/Symptoms: [facility], is calling reporting they are missing a sample: Lavender for A1c. Onset and Duration? Appointment Offered? No Lamar Pavon 06/11/2017 8:26 documented in this encounter Plan of Treatment Not on filedocumented as of this encounter Goals Goal Patient Goal Associated Recent Patient-Stated? 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, dependence Vania syndrome documented as of this encounter Visit Diagnoses Not on filedocumented in this encounter Care Teams Shift Commander Relationship Specialty Start Date End Date Sana Muhammad MD PCP - General 12/02/16 08/05/20 documented as of this encounter
--- OUTSIDE RECORDS SUMMARY | 2021-08-16 23:32 | XMS_ITS | Encounter Summary ---
:1990 Author Organization [facility] Address [address] [place] [address] Care Team Providers Name Role Phone Sana Muhammad MD Primary Care Provider Reason for Visit Reason Comments Schizophrenia 3 month follow up Encounter Details Date Type Department Care Team Description 02/26/2017 Office Visit [facility] Sana Muhammad al discharge (Primary Dx); Family Medicine - MD Ramonita Paranoid schizophrenia (CMS-HCC) (HCC-CM S); [place] [address] [facility] ([place], [place]) Tobacco dependence syndrome; [address] [place], [place] [phone] Social History Tobacco Use Types Packs/Day Years Used Date Current Every Day Smoker 0.5 10 Smokeless Tobacco: Never Used Alcohol Use Standard Drinks/Week Comments No 0 (1 standard drink = 0.6 oz pure alcoho l) occ Sex Assigned at Date Recorded Not on file documented as of this encounter Last Filed Vital Signs Vital Sign Reading Time Taken Comments Blood Pressure 122/82 02/26/2017 1121 EST Pulse 100 02/26/2017 1121 EST Temperature - - Respiratory Rate - - Oxygen Saturation - - Inhaled Oxygen Concentration - - Weight 117.9 kg (260 lb) 02/26/2017 1121 EST Height 161.9 cm (5' 3.74) 02/26/2017 1121 EST Body Mass Index 44.99 02/26/2017 1121 EST documented in this encounter Functional Status Functional Status Response Date of Assessment Because of a physical, mental, or emotional condition, No 02/26/2017 does this person have difficulty doing errands alone such as visiting a doctor's office or shopping? Cognitive Status Response Date of Assessment Because of a physical, mental, or emotional condition, No 02/26/2017 does this person have serious difficulty concentrating, remembering, or making decisions? documented as of this encounter Ordered Prescriptions Prescription Sig Dispensed Refills Start Date End Date miconazole (MICONAZOLE 7) Place 1 Applicator 3 Tube 0 06/10/2017 2 % vaginal cream vaginally at bedtime. X 3 days albendazole (ALBENZA) 200 Take 2 Tabs by mouth 2 Tab 0 02/26/2017 06/10/2017 mg tablet daily. ziprasidone (GEODON) 80 Take 1 Cap by mouth 30 Cap 5 03/21/2018 mg capsuleIndications: daily. Paranoid schizophrenia ([facility]) ([facility]) ziprasidone (GEODON) 60 Take 2 Caps by mouth 60 Cap 5 03/21/2018 mg capsuleIndications: every evening. Paranoid schizophrenia ([facility]) ([facility]) sertraline (ZOLOFT) 100 Take 1 Tab by mouth 30 Tab 5 09/26/2017 mg tabletIndications: at bedtime. Unknown Paranoid schizophrenia dose ([facility]) ([facility]) perphenazine (TRILAFON) 4 Take 1 Tab by mouth 30 Tab 5 1 04/29/2016 03/21/2018 mg tabletIndications: as needed (can take Paranoid schizophrenia 1-2 tabs PRN in ([facility]) ([facility]) addition to her 2 mg (maximum 10 mg dose)). perphenazine (TRILAFON) 2 Take 1 Tab by mouth 60 Tab 5 1 04/29/2016 03/21/2018 mg tabletIndications: 2 times daily. Paranoid schizophrenia ([facility]) ([facility]) omeprazole (PRILOSEC OTC) Take 1 Tab by mouth 90 Tab 1 1 04/29/2016 11/22/2017 20 mg tablet daily. nicotine polacrilex Chew one piece of 50 Each 1 7 06/10/2017 (NICORETTE) 4 mg gum gum every hour as needed. Do not exceed 24 pieces per day. LORazepam (ATIVAN) 1 mg Take 1 Tab by mouth 60 Tab 2 05/21/2017 tabletIndications: 2 times daily. Daily Paranoid schizophrenia Max: 2 mg (HCC-CMS) (HCC) cyclobenzaprine Take 1 Tab by mouth 30 Tab 5 02/26/2017 10/04/2017 (FLEXERIL) 10 mg tablet at bedtime. benztropine (COGENTIN) 2 Take 2 Tabs by mouth 360 Tab 0 1 04/29/2016 05/31/2017 mg tabletIndications: 2 times daily. Paranoid schizophrenia (HCC-CMS) (HCC) documented in this encounter Progress Notes Sana Muhammad MD - 02/26/2017 1100 EST PROGRESS NOTE Chief Complaint Patient presents with ??? Schizophrenia 3 month follow up HPI: Mary Grace, 26 y.o. is here for medication management of her schizophrenia. Patient reports she'sbeen doing well on this current regimen. She states ever since she was in [place] and her medications got changed she's been doing well. She reports she uses the Trilafon 4 mg tablet when necessaryif she hears voices or sees other people's demons. She reports over the past 3 months she is completely given up smoking she's been using Nicorette gum for this. She states she feels better and only occasionally has to use albuterol. Patient reports her cat was recently diagnosed with round worm she states that she cares for the catand changes the cat litter. She is very concerned that she has developed round worm. She reports itching and redness per rectum. Reports her her son and her partner were all recently diagnosed with bacterial infections and started on 3 different antibiotics. States since coming off the antibiotic she's been having increased vaginal discharge. States its white. denies any odor. ROS: 10 Systems reviewed found to be negative except as above. Patient Active Problem List Diagnosis ??? Depression ??? Celiac disease ??? Anxiety ??? Paranoid schizophrenia (CMS-HCC) ??? Chronic pain syndrome ??? Supervision of normal first ??? Tobacco dependence syndrome ??? Schizophrenia, paranoid (CMS-HCC) Past Surgical History: Procedure Laterality Date ??? FINGER SURGERY left ??? WISDOM TOOTH EXTRACTION family history includes Bipolar Disorder in an other family member; Diabetes in her maternal grandfather; Schizophrenia in her mother. reports that she has been smoking. She has a 5.00 pack-year smoking history. She has never used smokeless tobacco. She reports that she uses illicit drugs, including Marijuana. She reports that she does not drink alcohol. Current Outpatient Prescriptions Medication Sig Dispense Refill ??? albuterol 90 mcg/actuation inhaler Inhale 2 Puffs as directed every 4 hours. 3 Inhaler 3 ??? benztropine (COGENTIN) 2 mg tablet take 2 tablets by mouth twice a day 360 Tab 0 ??? cyclobenzaprine (FLEXERIL) 10 mg tablet take 1 tablet by mouth twice a day if needed for muscle spasm 30 Tab 1 ??? LORazepam (ATIVAN) 1 mg tablet take 1 tablet by mouth twice a day MAY TAKE 1 ADDITIONAL IF NEEDED maximum daily dose of 3 75 Tab 0 ??? nicotine polacrilex (NICORETTE) 4 mg gum Chew one piece of gum every hour as needed. Do not exceed 24 pieces per day. 50 Each 1 ??? omeprazole (PRILOSEC OTC) 20 mg tablet Take 1 Tab by mouth daily. 90 Tab 0 ??? perphenazine (TRILAFON) 2 mg tablet Take 1 Tab by mouth 2 times daily. 60 Tab 5 ??? perphenazine (TRILAFON) 4 mg tablet Take 1 Tab by mouth as needed (can take 1-2 tabs PRN in addition to her 2 mg (maximum 10 mg dose)). 30 Tab 5 ??? sertraline (ZOLOFT) 100 mg tablet Take 1 Tab by mouth at bedtime. Unknown dose 30 Tab 5 ??? UNABLE TO FIND Med Name: Nexplanon implanted 08/13/2016 ??? ziprasidone (GEODON) 60 mg capsule take 2 capsules by mouth at bedtime 60 Cap 5 ??? ziprasidone (GEODON) 80 mg capsule take 1 capsule by mouth daily 30 Cap 5 No current facility-administered medications for this visit. Allergies Allergen Reactions ??? Gluten Protein ??? Haldol [Haloperidol Lactate] paralysis ??? Paxil [Paroxetine Hcl] Nausea And Vomiting PE: BP 122/82 Pulse 100 Ht 161.9 cm (63.74) Wt (!) 117.9 kg (260 lb) BMI 44.99 kg/m2 General NAD alert and ??3 Mood: reports normal affect is appropriate. She makes eye contact answers questions appropriately not flat. HEENT: head normocephalic eyes EOMI sclera normal hearing grossly intact Respiratory: normal respiratory effort bilaterally Cardiovascular: S1-S2 no murmurs rubs or gallops Abdomen: Soft nontender positive bowel sounds : White curdy discharge external genitalia is normal Skin: intact no signs of infection Extremities: she is full range of motion in her upper and lower extremities Assessment: 26-year-old female comes in for medication management for paranoid schizophrenia with increased vaginal discharge after antibiotic use and itching per rectum with recent diagnosis of round warm Plan: 1) vaginitis - Most likely candidia. Will send vaginitis swab. Start miconazole cream per vaginal x 3 night. 2) round worm - itching rectum, recent cat exposure. Albendazole 400mg po x 1 Will test son's stool sample to determine if he need medicaiton. 3) paranoid schizophrenia - Continue Trilafon 2 mg twice a day and 4 mg when necessary when patient sees demons or is hearing voices Continue Zoloft 100mg po daily Ziprasidone 120mg po AM and 80mg PO QHS Lorazepam 1mg PO BID Benztropine 4mg PO BID 4) Smoking cessation - patient is using Nicorette gum and has quit smoking. States she uses medical marijuana smoking because she is somewhat to long-acting of oral dosing. She states she feels better after quitting cigarettes. Is only using albuterol occasionally for colds. 5) medical marijuana - will need card refilled for next year. Sana Muhammad MD documented in this encounter Plan of Treatment Not on filedocumented as of this encounter Visit Diagnoses Diagnosis Vaginal discharge - Primary Leukorrhea, not specified as infective Paranoid schizophrenia ([facility]) (HCC) Paranoid schizophrenia, unspecified cond ition Tobacco dependence syndrome Tobacco use disorder Candidiasis of vagina Candidiasis of vulva and vagina documented in this encounter Discontinued Medications Medication Sig Discontinue Reason Start Date End Date benztropine (COGENTIN) 2 take 2 tablets by Reorder 11/25/2016 02/26/2017 mg tabletIndications: mouth twice a day Paranoid schizophrenia (HCC-CMS) ([facility]) cyclobenzaprine take 1 tablet by Reorder 02/22/2017 02/27/20 17 (FLEXERIL) 10 mg tablet mouth twice a day if needed for muscle spasm LORazepam (ATIVAN) 1 mg take 1 tablet by Reorder 02/17/2017 02/26/2017 tabletIndications: mouth twice a day Paranoid schizophrenia MAY TAKE 1 (HCC-CMS) ([facility]) ADDITIONAL IF NEEDED maximum daily dose of 3 nicotine polacrilex Chew one piece of Reorder 02/03/2017 (NICORETTE) 4 mg gum gum every hour as needed. Do not exceed 24 pieces per day. omeprazole (PRILOSEC OTC) Take 1 Tab by mouth Reorder 01/19/20 17 02/26/2017 20 mg tablet daily. perphenazine (TRILAFON) 2 Take 1 Tab by mouth Reorder 01/14/20 17 02/26/2017 mg tabletIndications: 2 times daily. Paranoid schizophrenia (HCC-CMS) ([facility]) perphenazine (TRILAFON) 4 Take 1 Tab by mouth Reorder 01/14/20 17 02/26/2017 mg tabletIndications: as needed (can take Paranoid schizophrenia 1-2 tabs PRN in (HCC-CMS) ([facility]) addition to her 2 mg (maximum 10 mg dose)). sertraline (ZOLOFT) 100 Take 1 Tab by mouth Reorder 07/29/2016 02/26/2017 mg tabletIndications: at bedtime. Unknown Paranoid schizophrenia dose (HCC-CMS) ([facility]) ziprasidone (GEODON) 60 take 2 capsules by Reorder 01/18/2017 02/26/2017 mg capsuleIndications: mouth at bedtime Paranoid schizophrenia (HCC-CMS) ([facility]) ziprasidone (GEODON) 80 take 1 capsule by Reorder 01/18/2017 02/26/2017 mg capsuleIndications: mouth daily Paranoid schizophrenia (HCC-CMS) ([facility]) documented as of this encounter Orders Lab Orders Without Results Count Last Ordered Date Fir st Ordered Date VAGINITIS EXAM 1 02/26/2017 documented in this encounter Care Teams High Reach Operator Relationship Specialty Start Date End Date Sana Muhammad MD PCP - General 12/02/16 08/05/20 documented as of this encounter
--- OUTSIDE RECORDS SUMMARY | 2021-08-16 23:32 | XMS_ITS | Encounter Summary ---
:1990 Author Organization [facility] Address [address] [place] [address] Care Team Providers Name Role Phone Sana Muhammad MD Primary Care Provider Encounter Details Date Type Department Care Team Description 01/07/2017 Orders Only [facility] Sana Muhammad Paran oid schizophrenia Family Medicine - MD Ramonita ([facility]) ([facility]) [address] (Primary Dx) [address] [place] [phone] Social History Tobacco Use Types Packs/Day Years [...] this encounter Visit Diagnoses Diagnosis Paranoid schizophrenia ([facility]) ([facility]) - Primary Paranoid schizophrenia, unspecified cond ition documented in this encounter Discontinued Medications Medication Sig Discontinue Reason Start Date End Date LORazepam (ATIVAN) 1 mg Take 1 Tab by mouth 12/02/2016 01/07/2017 tablet 2 times daily. Daily Max: 2 mg documented as of this encounter Care Teams Briquette Operator Relationship Specialty Start Date End Date Sana Muhammad MD PCP - General 12/02/16 08/05/20 documented as of this encounter
--- OUTSIDE RECORDS SUMMARY | 2021-08-16 23:32 | XMS_ITS | Encounter Summary ---
:1990 Author Organization [facility] Address [address] [place] [address] Care Team Providers Name Role Phone Filipe Bose MD Primary Care Provider Sana Muhammad MD Primary Care Provider Jim Morales MD Primary Care Provider Reason for Visit Reason Onset Date Comments Medications Refill 05/28/2016 Encounter Details Date Type Department Care Team Description 05/28/2016 Refill [facility] Dyllan Bose MD Medications Refill Family [facility] - [address] [place] [phone] [place] [address] Drive [place], [place] [id number] [phone] Social History Tobacco Use Types Packs/Day Years [...] Date End Date LORazepam (ATIVAN) 1 mg take 1 tablet by 75 Tab 0 201607/29/2016 tablet mouth twice a day MAY TAKE 3RD TAB IF NEEDED documented in this encounter Miscellaneous Notes Telephone Encounter - Dinorah Blanco RN - 05/29/2016 1117 EDT Medication(s) Requested: Ativan 1 mg disp 75 with 0 refills Preferred [facility]acy: [facility] Is patient out of medication? Unknown Last Refill Date: 03/27/16 Last Visit Date with Ordering Provider: 04/24/16 Next Visit Date as it relates to the requested medication: Yes. 06/12/16 Last Related Labs Date: dodie Blanco RN 05/29/2016 11:17 documented in this encounter Plan of Treatment Not on filedocumented as of this encounter Visit Diagnoses Not on filedocumented in this encounter Discontinued Medications Medication Sig Discontinue Reason Start Date End Date LORazepam (ATIVAN) 1 mg Take 1 Tab by mouth Reorder 03/27/2016 05/28/2016 tablet 2 times daily. Take 1 tab BID, third tab PRN Daily Max: 2 mg documented as of this encounter Additional Health Concerns Infection Onset Date Last Indicated Resolved Time COVID-19 03/07/2021 03/07/2021 03/27/2021 22:15 EST documented as of this encounter Care Teams Caustic Room Operator Relationship Specialty Start Date End Date Filipe Bose MD PCP - General 11/07/15 12/01/16 Sana Muhammad MD PCP - General 12/02/16 08/05/20 Jim Morales MD PCP - General Family Medicine - Primary 08/06/[address] [place] [phone] documented as of this encounter
--- OUTSIDE RECORDS SUMMARY | 2021-08-16 23:32 | XMS_ITS | Encounter Summary ---
:1990 Author Organization [facility] Address [address] [place] [address] Care Team Providers Name Role Phone Filipe Bose MD Primary Care Provider Reason for Visit Reason Onset Date Comments Appointment Related 07/02/2016 Encounter Details Date Type Department Care Team Description 07/02/2016 Telephone [facility] Dyllan Bose MD Appointment Related Family Medicine - [address] [place] [phone] [place] [address] [phone] Social History Tobacco Use Types Packs/Day Years [...] Telephone Encounter - Mita Johnson - 07/02/2016 6657 EDT Left message on machine - patient will need to stop by the office and sign a Nexplanon form so that we may order the device. Once the device arrives, we may schedule. documented in this encounter Plan of Treatment Not on filedocumented as of this encounter Visit Diagnoses Not on filedocumented in this encounter Care Teams Typing Teacher Relationship Specialty Start Date End Date Filipe Bose MD PCP - General 11/07/15 12/01/16 documented as of this encounter
--- OUTSIDE RECORDS SUMMARY | 2021-08-16 23:32 | XMS_ITS | Encounter Summary ---
:1990 Author Organization [facility] Address [address] [place] [address] Care Team Providers Name Role Phone Filipe Bose MD Primary Care Provider Reason for Visit Reason Onset Date Comments Medication Problem 07/29/2016 Encounter Details Date Type Department Care Team Description 07/29/2016 Telephone [facility] Dyllan Bose MD Medication Problem Family Medicine - [address] [place] [phone] [place] [address] [place] [address] [phone] Social History Tobacco Use Types Packs/Day Years [...] this encounter Miscellaneous Notes Telephone Encounter - Chiqui Rodriguez - 07/29/2016 1633 EDT Patient stopping in the office and said she put a message through this morning that she is out of her documented in this encounter Plan of Treatment Not on filedocumented as of this encounter Visit Diagnoses Not on filedocumented in this encounter Care Teams Work Adjustment Instructor Relationship Specialty Start Date End Date Filipe Bose MD PCP - General 11/07/15 12/01/16 documented as of this encounter
--- OUTSIDE RECORDS SUMMARY | 2021-08-16 23:32 | XMS_ITS | Encounter Summary ---
:1990 Author Organization [facility] Address [address] [place] [address] Care Team Providers Name Role Phone Sana Muhammad MD Primary Care Provider Reason for Visit Reason Comments Other Encounter Details Date Type Department Care Team Description 06/15/2017 Refill [facility] Family Sana Muhammad MD Other Medicine - [address] [phone] [place], [place] [address] [phone] Social History Tobacco Use Types Packs/Day Years [...] take 1 tablet by 60 Tab 2 201709/26/2017 tabletIndications: mouth twice a day Paranoid schizophrenia (HCC-CMS) ([facility]) documented in this encounter Miscellaneous Notes Telephone Encounter - Ernestine Polanco, RN - 06/25/2017 1104 EDT The [place] Prescription Monitoring System query has been completed per the following requirement(s): per provider request. Per [facility] report, last Lorazepam 1 mg prescription picked up 05/18/17 for 60 tablets. elephone Encounter - Nadine Bentley - 06/25/2017 0957 EDT Spoke with patient concerning the printed prescriptions for Lorazepam. She states that she was not given any printed prescriptions, she was told that they were going to be e-prescribed. Can prescriptions be re-sent or is it ok to phone them in ? There were two different prescriptions done for #60 and no refills and there can be refills put on these prescriptions. Is it ok to phone in #60 with 1 refill ? elephone Encounter - Celine Kohler - 06/15/2017 1309 EDT No answer, no voice mail, prescriptions were done as printed, did the patient take them with her? documented in this encounter Plan of Treatment Not on filedocumented as of this encounter Goals Goal Patient Goal Associated Recent Patient-Stated? 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[place], dependence Vania syndrome documented as of this encounter Visit Diagnoses Diagnosis Paranoid schizophrenia ([facility]) ([facility]) - Primary Paranoid schizophrenia, unspecified cond ition documented in this encounter Care Teams Sap Fico Architect Relationship Specialty Start Date End Date Sana Muhammad MD PCP - General 12/02/16 08/05/20 documented as of this encounter
--- OUTSIDE RECORDS SUMMARY | 2021-08-16 23:32 | XMS_ITS | Encounter Summary ---
:1990 Author Organization [facility] Address [address] [place] [address] Care Team Providers Name Role Phone Filipe Bose MD Primary Care Provider Reason for Visit Reason Comments Other Encounter Details Date Type Department Care Team Description 11/26/2016 Refill [facility] Family Moon Bose MD Other Medicine - [address] [phone] [place], [place] [id number] [phone] Social History Tobacco Use Types Packs/Day Years [...] Notes Telephone Encounter - Nadine Bentley - 11/26/2016 1041 EDT Spoke to patient and appointment scheduled on 12/02/16. elephone Encounter - Ernestine Polanco RN - 11/26/2016 1026 EDT Medication(s) Requested: Lorazepam Pharmacy: [facility] Last Refill Date: 11/02/16 for 75 with 0 refills Last Visit Date: 06/26/16; per that office note, follow up in 3 months for medications Next Visit Date: Visit date not found Is patient out of medication? Unknown Patient needs appointment scheduled. Ernestine Polanco RN 11/26/2016 10:27 documented in this encounter Plan of Treatment Not on filedocumented as of this encounter Visit Diagnoses Not on filedocumented in this encounter Care Teams Offbearer Relationship Specialty Start Date End Date Filipe Bose MD PCP - General 11/07/15 12/01/16 documented as of this encounter
--- OUTSIDE RECORDS SUMMARY | 2021-08-16 23:32 | XMS_ITS | Encounter Summary ---
:1990 Author Organization [facility] Address [address] [place] [address] Care Team Providers Name Role Phone Filipe Bose MD Primary Care Provider Reason for Visit Reason Onset Date Comments Appointment Related 04/14/2016 Encounter Details Date Type Department Care Team Description 04/14/2016 Telephone [facility] Loretta Pollock, Appointment Related Program - [address] [place], [place] [address] Social History Tobacco Use Types Packs/Day Years [...] this encounter Miscellaneous Notes Telephone Encounter - Ruth Ann Snyder - 04/14/2016 1502 EST I called Mary Grace with the date and time of her MRI 05/06/16 check in at 3:30 with meds and wedding transportation driver PLDT. Ruth Ann Snyder 04/14/2016 15:03 documented in this encounter Plan of Treatment Not on filedocumented as of this encounter Visit Diagnoses Not on filedocumented in this encounter Care Teams Moose Hunter Relationship Specialty Start Date End Date Filipe Bose MD PCP - General 11/07/15 12/01/16 documented as of this encounter
--- OUTSIDE RECORDS SUMMARY | 2021-08-16 23:32 | XMS_ITS | Encounter Summary ---
:1990 Author Organization [facility] Address [address] [place] [address] Care Team Providers Name Role Phone Filipe Bose MD Primary Care Provider Encounter Details Date Type Department Care Team Description 05/06/2016 Hospital Encounter [facility] - Vaughn Santana MD [address] [place], [place] Spine [address] [phone] [place] [address] (Wo rk) Social History Tobacco Use Types [...] as of this encounter Discharge Diagnoses Diagnosis Z01.89 Encounter for other specified spe cial examinations-Z01.89[ICD-10-CM] documented in this encounter Medications at Time of Discharge Medication Sig Dispensed Refills Start Date End Date albuterol 90 mcg/actuation Inhale 2 Puffs as 3 Inhaler 3 12/02/2016 inhalerIndications: inhale directed every 4 2 puffs before exercise hours. benztropine (COGENTIN) 2 Take 2 Tabs by 120 Tab 2 017 05/11/2016 mg tabletIndications: mouth 2 times daily Paranoid schizophrenia for 30 days. ([facility] ([facility]) clindamycin (CLEOCIN T) 1 Apply topically 2 1 Bottle 1 10/31/2016 % external solution times daily. use thin film on affected area cyclobenzaprine (FLEXERIL) Take 1 Tab by mouth 30 Tab 1 03/24/2016 02/20/2017 10 mg tablet 2 times daily as needed for Muscle Spasms. LORazepam (ATIVAN) 1 mg Take 1 Tab by mouth 75 Tab 0 05/28/2016 tablet 2 times daily. Take 1 tab BID, third tab PRN Daily Max: 2 mg LORazepam (ATIVAN) 1 mg Take 1 Tab by mouth 15 Tab 1 06/26/2016 tablet 3 times daily as needed for Anxiety. Daily Max: 3 mg perphenazine (TRILAFON) 2 Take 1 Tab by mouth 30 Tab 5 0 03/25/2016 08/27/2016 mg tabletIndications: daily. Paranoid schizophrenia ([facility]) ([facility]) perphenazine (TRILAFON) 4 Take 1 Tab by mouth 30 Tab 5 0 03/25/2016 12/02/2016 mg tabletIndications: as needed (can take Paranoid schizophrenia 1-2 tabs PRN in ([facility]) ([facility]) addition to her 2 mg (maximum 10 mg dose)). sertraline (ZOLOFT) 100 mg Take 1 Tab by mouth 30 Tab 5 03/25/2016 07/29/2016 tabletIndications: at bedtime. Unknown Paranoid schizophrenia dose ([facility]) ([facility]) ziprasidone (GEODON) 20 mg Take 1 Cap by mouth 60 Cap 2 03/25/2016 06/26/2016 capsuleIndications: as needed for Paranoid schizophrenia Other. ([facility]) ([facility]) ziprasidone (GEODON) 60 mg Take 2 Caps by 60 Each 5 03/2507/29/2016 capsuleIndications: mouth at bedtime. Paranoid schizophrenia ([facility]) ([facility]) ziprasidone (GEODON) 80 mg Take 1 Cap by mouth 30 Each 5 03/25/2016 07/29/2016 capsuleIndications: daily. Paranoid schizophrenia ([facility]) ([facility]) documented as of this encounter Discharge Disposition Disposition Code Departure Means Destination Home or Self [facility] documented in this encounter Plan of Treatment Not on filedocumented as of this encounter Visit Diagnoses Not on filedocumented in this encounter Care Teams Benefit Specialist Relationship Specialty Start Date End Date Filipe Bose MD PCP - General 11/07/15 12/01/16 documented as of this encounter
--- OUTSIDE RECORDS SUMMARY | 2021-08-16 23:32 | XMS_ITS | Encounter Summary ---
:1990 Author Organization [facility] Address [address] [place] [address] Care Team Providers Name Role Phone Filipe Bose MD Primary Care Provider Reason for Visit Reason Onset Date Comments Medications Refill 05/11/2016 Encounter Details Date Type Department Care Team Description 05/11/[address] [facility] Dyllan Bose MD Medications Refill Family [address] [address] [place], [place] [id number] [phone] Social History Tobacco Use Types Packs/Day Years [...] Date benztropine (COGENTIN) 2 mg Take 2 Tabs by 360 Tab 0 /08/201608/27/2016 tabletIndications: Paranoid mouth 2 times schizophrenia (HCC-CMS) daily for 30 days. (HCC) documented in this encounter Miscellaneous Notes Telephone Encounter - Ernestine Polanco, RN - 05/11/2016 1711 EST Last Refill Date: Benztropine 120 with 2 refills on 03/25/16; pharmacy requesting 90 day supply Last Visit Date with Ordering Provider: 04/24/16 Next Visit Date as it relates to the requested medication: Yes. 05/29/16 Last Related Labs Date: N/A Ernestine Polanco RN 05/11/2016 17:11 elephone Encounter - Celine Kohler - 05/11/2016 1144 EST Medication(s) Requested: Benztropine # 120 w/ 2 RF 03/25/16 Preferred Pharmacy: [facility] Is patient out of medication? Unknown Insurance requesting a 90 day supply Last OV 04/24/16 Next OV 05/29/16 Celine Kohler 05/11/2016 11:44 documented in this encounter Plan of Treatment Not on filedocumented as of this encounter Visit Diagnoses Diagnosis Paranoid schizophrenia ([facility]) ([facility]) - Primary Paranoid schizophrenia, unspecified cond ition documented in this encounter Discontinued Medications Medication Sig Discontinue Reason Start Date End Date benztropine (COGENTIN) 2 Take 2 Tabs by Reorder 03/25/2016 0 05/11/2016 mg tabletIndications: mouth 2 times Paranoid schizophrenia daily for 30 days. ([facility]) ([facility]) documented as of this encounter Care Teams Want Ad Supervisor Relationship Specialty Start Date End Date Filipe Bose MD PCP - General 11/07/15 12/01/16 documented as of this encounter
--- OUTSIDE RECORDS SUMMARY | 2021-08-16 23:32 | XMS_ITS | Encounter Summary ---
:1990 Author Organization [facility] Address [address] [place] [address] Care Team Providers Name Role Phone Filipe Bose MD Primary Care Provider Reason for Referral Medication Prior Authorization (Routine/Next Available) - Closed Specialty Diagnoses / Procedures Referred By Contact Refer red To Contact Diagnoses Encounter for initial prescription of implantable subdermal contraceptive Orlando Correia MD [address] [place] [address] Referral ID Status Reason Start Expiration Visits Visits Date Date Requested Authorized [id number] Closed Medication Prior 06/26/2016 1 1 Authorization Question Answer Medication to be Prior Authorized: Nexplanon Comments The purpose of this consult request is t o inform the scheduling staff that a medication needs to be prior-authorized before it is prescribed and/or administered. Reason for Visit Reason Comments Contraception discuss control MEDICATION CHECK Encounter Details Date Type Department Care Team Description 06/26/2016 Office Visit [facility] Unknown, Prov MD alexey Paranoid schizophrenia (CMS-HCC) (Primar y Dx); Family Medicine - Filipe Bose MD [address] [place] [address] Neck pain; [place] Encounter for initial prescr iption of implantable subdermal contraceptive [address] [place] [address] Social History Tobacco Use Types Packs/Day [...] Sign Reading Time Taken Comments Blood Pressure 118/80 06/26/2016 1358 EDT Pulse 108 06/26/2016 1358 EDT Temperature 36.8 ??C (98.2 ??F) 06/26/2016 1358 EDT Respiratory Rate 16 06/26/2016 1358 EDT Oxygen Saturation - - Inhaled Oxygen Concentration - - Weight 120.2 kg (265 lb) 06/26/2016 1358 EDT Height 162.6 cm (5' 4) 06/26/2016 1358 EDT Body Mass Index 45.49 06/26/2016 1358 EDT documented in this encounter Functional Status [...] as of this encounter Patient Instructions Patient Filipe Pichardo MD - 06/26/2016 14:00 EDT Images from the original note were not included. Contraception Options Device Effective Hormones Intrauterine Device (IUD) >99% Mirena: progesterone Paraguard: none Placed in uterus by healthcare provider. Mirena: Lasts for 5 years (or more). Expect irregular bleeding for 3-6 months followed by very lightor no periods at all. Paraguard: Lasts for 10 years. Made from copper. May increase bleeding in women who already have heavy periods. The Implant (Nexplanon) >99% Progesterone Small sadiq inserted into arm. Lasts for 3 years. Expect irregular bleeding for 3-6 months followed by very light or no periods at all. The Shot (Depo- Provera) 94-99% Progesterone Shot given every 3 months. Expect irregular bleeding for 3-6 months followed by very light or no periods at all. Can cause weight gain, depression, hair/skin changes, or changes in sex drive. Increased risk of osteoporosis while receiving the injections that resolves with discontinuation.Can cause delay in getting after stopping. The Pill 91-99% Estrogen and progesterone Take a pill daily. Can cause curve saw operator and more regular periods, nausea, weight gain, and headaches. Mini-pill 91-99% Progesterone Take a pill daily. Has to be taken at the same time every day. Often causes spotting, can also cause depression, hair/skin changes, or changes in sex drive. The Patch 91-99% Estrogen Apply patch weekly for 3 weeks, then no patch for 1 week. Can cause curve saw operator and more regular periods, spotting for 1-2 months, and skin irritation at the patch site. The Ring (NuvaRing) 91-99% Estrogen Insert ring into vagina and leave for 3 weeks, then remove for 1 week. Can cause curve saw operator and more regular periods, spotting for 1-2 months, and increased vaginal discharge. May leave in duringintercourse. If falls out during the month, rinse with soap and water and re-insert. Condoms 79-98% None Place prior to intercourse. Male and female versions. Protects against HIV and other sexually transmitted infections. Spermicide 72-82% None Insert spermicide every time you have intercourse. May cause local irritation. Emergency Contraception Pill (Plan B, Janiya) 58-94% Progesterone Can take 3 days after unprotected sex. Available behind the counter at pharmacies and health centers without a prescription. Can cause nausea, spotting, or your next period to come early or late. Janiya (Ulipristal) works better than other brands if you are overweight, and can be taken 5 days after unprotected sex, but is only available with a prescription. * If you have the following health problems, you should be careful taking control with estrogen: high blood pressure, diabetes, smoking, obesity, migraines over the age of 35 * If you have the following health problems, you should not take control with estrogen: migraine with aura, high blood pressure (higher than 160/100), history of heart attacks, history of blood clots, history of stroke, cirrhosis, smoking >15 cigarettes/day and >35yo, breast/cervical cancer, or liver cancer * Note: If you are you should avoid estrogen and use progesterone only methods. An awesome interactive website for contraception options: https://bedsider.org/methods [facility] Patient Instructions Implant for Control: Care Instructions Your Care Instructions The implant is used to prevent . It's a thin sadiq about the size of a matchstick that is inserted under the skin (subdermal) on the inside of your arm. The implant prevents for 3 years. After it is put in, you don't have to do anything else to prevent . Follow-up care is a zuniga part of your treatment and safety. Be sure to make and go to all appointments, and call your doctor if you are having problems. It's also a good idea to know your test results and keep a list of the medicines you take. How can you care for yourself at home? How do you use the subdermal implant? ?? The implant is put in and taken out by your doctor or another trained health professional. This is done in your doctor's office. It only takes a few minutes. ?? Ask your doctor if you need to use backup control, such as a condom. And ask if (and how long) you should avoid intercourse after you get the implant. You may need to do this, depending on where you are in your cycle. What else do you need to know? ?? The implant has side effects. ?? You may have changes in your period. Your period may stop. You may also have spotting or bleedingbetween periods. ?? You may have mood changes, less interest in sex, or weight gain. ?? Remember that 3 years after you receive the implant, you must have it removed or get a new one. ?? If you don't replace the implant and don't use another form of control, you could get . ?? If you have the implant removed, you'll have to find another method of control. If you don't, you may get . ?? Even if you are planning to get , you have to have the implant removed. ?? Check with your doctor before you use any other medicines. This includes nnwh-iiw-dmivvme medicines, vitamins, herbal products, and supplements. control hormones may not work as well to prevent when combined with other medicines. ?? The implant doesn't protect against sexually transmitted infections (STIs), such as herpes or HIV/AIDS. If you're not sure if your sex partner might have an STI, use a condom to protect against infection. When should you call for help? Call your doctor now or seek immediate medical care if: ?? You have severe belly pain. Watch closely for changes in your health, and be sure to contact your doctor if: ?? You think you might be . ?? You have any problems with your control method. ?? You think you may be depressed. ?? You regularly have spotting. ?? You think you may have been exposed to or have a sexually transmitted infection. Where can you learn more? Go to www.Medstory.net/RXi Pharmaceuticalser or log into your [employer] [facility] [place] Online account at [email or web address]. Enter V768 in the search box to learn more about Implant for Control: Care Instructions. Current as of: August 05, 2015 Content Version: 11.2 ?? [id number] [employer]. Care instructions adapted under license by [facility] If you have questions about a medical condition or this instruction, always ask your healthcare professional. [employer] disclaims any warranty or liability for your use of this information. documented in this encounter Ordered Prescriptions Prescription Sig Dispensed Refills Start Date End Date ziprasidone (GEODON) 20 Take 1 Cap by mouth 60 Cap 2 12/02/2016 mg capsuleIndications: as needed for Other. Paranoid schizophrenia (HCC-CMS) (HCC) LORazepam (ATIVAN) 1 mg Take 1 Tab by mouth 2 75 Tab 0 0 06/26/2016 01/07/2017 tabletIndications: times daily. Take 1 Paranoid schizophrenia mg BID, and 1 (HCC-CMS) (HCC) additional PRN Daily Max: 2 mg documented in this encounter Progress Notes Orlando Correia MD - 06/26/2016 1400 EDT Attestation for patient not seen by attending: I discussed the patient with the resident/fellow at the time of the visit and agree with the findings and the plan of care documented in the resident's/fellow's note. Orlando Correia MD Family Medicine Attending 07/01/2016 15:49 Filipe Eldridge MD - 06/26/2016 1400 EDT Subjective: Patient ID: Mary Grace Harris is an 25 y.o. female. Chief Complaint Patient presents with ??? Contraception discuss control ??? MEDICATION CHECK HPI 25 yo female presents to clinic for follow up of her paranoid schizophrenia and anxiety. She used bryce under the care of Danika Orosco who was her previous psychiatric provider. She is on benztropine,ziprasidone, and perphenazine. Her schizophrenia is stable on her current doses of medications. She notes that she can get extremely unstable if she does not take her medications. She does not currently hear voices. We have been unable to get her in to see psychiatry as they have noted that she is stable on her medications. ? She has chronic musculoskeletal pain including neck pain. She used to be on opiates but she did not like being on them. She saw orthopedic spine on 04/13/16 and had an MRI of her cervical spine in 05/27/16 which showed very mild degenerative change without spinal canal or neural foraminal stenosis at any level. She has obtained her medical marijuana registry card and has been using it. There was a discussion between her and orthopedics about potentially trying a transforaminal epidural corticosteroid injection. She also would like to switch her contraception to the Nexplanon instead of the Depo shot. She has been on the Depo shot for years. She cites the weight gain as the biggest factor for discontinuing theDepo shot. She last received the shot about a month ago. Patient Active Problem List Diagnosis ??? Depression [...] Scoliosis ??? Tendinitis ??? Torticollis Current Outpatient Prescriptions on File Prior to Visit Medication Sig Dispense Refill ??? albuterol 90 mcg/actuation inhaler Inhale 2 Puffs as directed every 4 hours. 3 Inhaler 3 ??? clindamycin (CLEOCIN T) 1 % external [...] by mouth twice a day MAY TAKE 3RD TAB IF NEEDED 75 Tab 0 ??? perphenazine (TRILAFON) 2 mg [...] dose 30 Tab 5 ??? ziprasidone (GEODON) 60 mg capsule Take 2 Caps by mouth at bedtime. 60 Each 5 ??? ziprasidone (GEODON) 80 mg capsule Take 1 Cap by mouth daily. 30 Each 5 No current facility-administered medications on file prior to visit. Allergies Allergen Reactions ??? Gluten Protein ??? Haldol [Haloperidol Lactate] paralysis ??? Paxil [Paroxetine Hcl] Nausea And Vomiting Social Social History Substance Use Topics ??? Smoking status: Current Every Day Smoker Packs/day: 0.50 Years: 10.00 ??? Smokeless tobacco: Never Used ??? Alcohol use No Comment: occ Review of Systems Constitutional: Negative for malaise/fatigue and weight loss. HENT: Negative for hearing loss. Eyes: Negative for photophobia. Musculoskeletal: Positive for joint pain and neck pain. Neurological: Negative for sensory change, speech change and focal weakness. Psychiatric/Behavioral: Negative for substance abuse. The patient is not nervous/anxious. - See HPI Objective: BP 118/80 (BP Cuff Location: Right arm, Patient Position: Sitting, BP Cuff Sizes: Adult, regular) Pulse (!) 108 Temp 36.8 ??C (98.2 ??F) Resp 16 Ht 162.6 cm (64) Wt (!) 120.2 kg (265 lb) BMI 45.49 kg/m2 Physical Exam Constitutional: She is oriented to person, place, and time. She appears well- developed and well-nourished. No distress. Eyes: EOM are normal. Right eye exhibits no discharge. Left eye exhibits no discharge. No scleral icterus. Cardiovascular: Normal rate. Pulmonary/Chest: Effort normal. Musculoskeletal: Normal range of motion. She exhibits no edema. Neurological: She is alert and oriented to person, place, and time. Skin: Skin is warm and dry. No rash noted. She is not diaphoretic. No erythema. No pallor. Psychiatric: She has a normal mood and affect. Her behavior is normal. Judgment and thought content normal. Nursing note and vitals reviewed. Assessment: Plan: Mary Grace was seen today for contraception and medication check. Diagnoses and all orders for this visit: Paranoid schizophrenia: She is currently stable on her medications. Psychiatry has no openings to see her because she is a stable patient. Should she become unstable, she will need to go to the Emergency Department to be evaluated by psychiatry. - LORazepam (ATIVAN) 1 mg tablet; Take 1 Tab by mouth 2 times daily. Take 1 mg BID, and 1 additionalPRN Daily Max: 2 mg - ziprasidone (GEODON) 20 mg capsule; Take 1 Cap by mouth as needed for Other. Neck pain: Her MRI is unremarkable, the images were reviewed with her. She was instructed to call her orthopedic provider for follow up on how to proceed as she still is having neck pain and radiculopathy. Encounter for initial prescription of implantable subdermal contraceptive: A prior authorization fora Nexplanon was ordered. It should come in to the clinic and then she can be scheduled with a clinician to place the device. Information about the Nexplanon and other contraceptive methods were provided to her. - Ambulatory Medication Prior Authorization Current psychiatric medications: Takes ziprasidone 80 mg in AM, 120 mg QHS, and then 20 mg PRN if needed with a maximum dose of 200-220 mg daily. Takes sertraline 100 mg QHS Takes Benztropine 4 mg BID with 1 mg PRN (but the PRN med not approved by insurance) Takes Perphenazine 2 mg daily, then 4 mg PRN with max dose of 10 mg Ativan 1 mg BID, with a third dose PRN at noontime. Return in about 3 months (around 09/25/2016) for DONATO, f/u medications. The patient exhibited understanding of these instructions and there were no barriers to learning. The patient was discussed with Dr. Correia who agrees with this plan. Filipe Bose MD Family Medicine PGY3 Pager #[phone] documented in this encounter Plan of Treatment Scheduled Referrals Name Type Priority Associated Diagnoses Order S chedule AMB MEDICATION PRIOR Outpatient Routine Encounter for initiabby virgen Ordered: AUTHORIZATION Referral prescription of 06/26/2016 implantable subdermal contraceptive documented as of this encounter Visit Diagnoses Diagnosis Paranoid schizophrenia ([facility]) ([facility]) - Primary Paranoid schizophrenia, unspecified cond ition Neck pain Cervicalgia Encounter for initial prescription of im plantable subdermal contraceptive documented in this encounter Discontinued Medications Medication Sig Discontinue Reason Start Date End Date LORazepam (ATIVAN) 1 mg Take 1 Tab by 03/20/2016 tablet mouth 3 times daily as needed for Anxiety. Daily Max: 3 mg ziprasidone (GEODON) 20 mg Take 1 Cap by Reorder 03/25/2016 06/26/2016 capsuleIndications: mouth as needed Paranoid schizophrenia for Other. ([facility]) ([facility]) documented as of this encounter Care Teams Director Of Special Events Relationship Specialty Start Date End Date Filipe Bose MD PCP - General 11/07/15 12/01/16 documented as of this encounter
--- OUTSIDE RECORDS SUMMARY | 2021-08-16 23:32 | XMS_ITS | Encounter Summary ---
:1990 Author Organization [facility] Address [address] [place] [address] Care Team Providers Name Role Phone Filipe Bose MD Primary Care Provider Reason for Visit Reason Comments Injections Encounter Details Date Type Department Care Team Description 05/29/2016 Nurse Only [facility] Unknown, Salma blackburn MD Encounter for Family Medicine - Nurse, [facility] Benjy Kennedy, RN surveillance of [place] injectable contraceptive [address] (Primary Dx) [place] [address] Social History Tobacco Use Types Packs/Day Years [...] documented as of this encounter Progress Notes Inga Chicas LPN - 05/29/2016 0930 EDT Depo-provera injection today See MAR Patient Education Topic: depo provera Method: Handout and Verbal Taught to: Patient Barriers: None Outcomes: independent and verbalized understanding I was supervised by Pilar Villavicencio MD who was present and immediately available in the office suite. Inga Chicas LPN 05/29/2016 10:02 documented in this encounter Plan of Treatment Not on filedocumented as of this encounter Visit Diagnoses Diagnosis Encounter for surveillance of injectable contraceptive - Primary Surveillance of other previously prescri bed contraceptive method documented in this encounter Administered Medications Inactive Administered Medications - up to 3 most recent administrations Medication Order MAR Action Action Date Dose Rate Site medroxyPROGESTERone Given 05/29/2016 10:00 150 mg Left Gluteus (DEPO-PROVERA) injection 150 EDT Medius mg 150 mg, intramuscular, EVERY 12 WEEKS, 2 doses, First dose on Wed03/13/16 at 1015, Last dose on Wed06/05/16 at 1015, Routine Given 03/13/2016 10:23 EST 150 mg Right G luteus Medius documented in this encounter Care Teams Sales Exhibitor Relationship Specialty Start Date End Date Filipe Bose MD PCP - General 11/07/15 12/01/16 documented as of this encounter
--- OUTSIDE RECORDS SUMMARY | 2021-08-16 23:32 | XMS_ITS | Encounter Summary ---
:1990 Author Organization [facility] Address [address] [place] [address] Care Team Providers Name Role Phone Sana Muhammad MD Primary Care Provider Reason for Visit Reason Comments Other Encounter Details Date Type Department Care Team Description 09/01/2017 Refill [facility] Family Sana Muhammad MD Other Medicine - [address] [address] [place], [place] [id number] [phone] Social History Tobacco Use Types Packs/Day Years [...] Paranoid schizophrenia (HCC-CMS) ([facility]) documented in this encounter Miscellaneous Notes Telephone Encounter - Ernestine Polanco RN - 09/02/2017 0913 EDT Medication(s) Requested: Cogentin 2 mg, 2 tablets BID, qty: 360 with 0 refills on 05/31/17 [facility]erred [facility] Is patient out of medication? Unknown Last Refill Date: See above Last Visit Date with Ordering Provider: 08/25/17 Next Non-Acute Visit Date Scheduled with Care Team: Fay. Ernestine Polanco RN 09/02/2017 9:13 documented in this encounter Plan of Treatment Not on filedocumented as of this encounter Goals Goal Patient Goal Associated Recent Patient-Stated? 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, dependence Vania syndrome documented as of this encounter Visit Diagnoses Diagnosis Paranoid schizophrenia (HCC-CMS) ([facility]) - Primary Paranoid schizophrenia, unspecified cond ition documented in this encounter Discontinued Medications Medication Sig Discontinue Reason Start Date End Date benztropine (COGENTIN) 2 take 2 tablets by Reorder 05/31/2017 09/01/2017 mg tabletIndications: mouth twice a day Paranoid schizophrenia (HCC-CMS) ([facility]) documented as of this encounter Care Teams Vendor Representatives Relationship Specialty Start Date End Date Sana Muhammad MD PCP - General 12/02/16 08/05/20 documented as of this encounter
--- OUTSIDE RECORDS SUMMARY | 2021-08-16 23:32 | XMS_ITS | Encounter Summary ---
:1990 Author Organization [facility] Address [address] [place] [address] Care Team Providers Name Role Phone Sana Muhammad MD Primary Care Provider Reason for Visit Reason Comments Follow-up 3 month follow up for parano id schizophrenia Encounter Details Date Type Department Care Team Description 05/21/2017 Office [address] [facility] Sana Muhammad Paran oid schizophrenia (CMS-HCC) ([facility]) (Primary Dx); Family Medicine - MD Ramonita Tobacco dependence syndrome; [address] Influenza A [address] [place] [phone] Social History Tobacco Use Types Packs/Day Years Used Date Current Every Day Smoker 0.5 10 Smokeless Tobacco: Never Used Alcohol Use Standard Drinks/Week Comments No 0 (1 standard drink = 0.6 oz pure alcoho l) occ Sex Assigned at Date Recorded Not on file documented as of this encounter Last Filed Vital Signs Vital Sign Reading Time Taken Comments Blood Pressure 112/72 05/21/2017 1100 EDT Pulse 100 05/21/2017 1100 EDT Temperature - - Respiratory Rate - - Oxygen Saturation - - Inhaled Oxygen Concentration - - Weight 115.7 kg (255 lb) 05/21/2017 1100 EDT Height 161.9 cm (5' 3.74) 05/21/2017 1100 EDT Body Mass Index 44.13 05/21/2017 1100 EDT documented in this encounter Functional Status [...] (ATIVAN) 1 mg Take 1 Tab by 60 Tab 0 8 06/20/2017 tablet mouth 2 times daily for 30 days. Daily Max: 2 mg LORazepam (ATIVAN) 1 mg Take 1 Tab by 60 Tab 0 8 07/20/2017 tablet mouth 2 times daily for 32 days. Daily Max: 2 mg LORazepam (ATIVAN) 1 mg Take 1 Tab by 60 Tab 2 8 08/19/2017 tabletIndications: Paranoid mouth 2 times schizophrenia ([facility]) daily for 30 days. ([facility]) Daily Max: 2 mg oseltamivir (TAMIFLU) 75 mg Take 1 Cap by 10 Cap 0 05/2106/10/2017 capsule mouth 2 times daily. documented in this encounter Progress Notes Sana Muhammad MD - 05/21/2017 1100 EDT PROGRESS NOTE Chief Complaint Patient presents with ??? Follow-up 3 month follow up for paranoid schizophrenia HPI: Mary Grace, 26 y.o. is here for Reports not feeling well x 4-5 days. Reports chills, weakness. Reports fevers and chills. Jose has been sick. Reports went to [facility] diagnosed with Infulenza A Reports overall she feels stable with her paranoid schizophrenia. She continues taking her medications. She states she thought that she was out of her Ativan but then found her other bottle. Denies anySI HI. Denies hearing any increased voices her demons. States that her card for marijuana has come up. She needed to be renewed she feels like marijuana helps keep her calm and decrease her anxiety. Reports she continues smoking but like to quit smoking. States she'll continue trying to use the gum. ROS: 10 Systems reviewed found to be [...] Outpatient Prescriptions Medication Sig Dispense Refill ??? albendazole (ALBENZA) 200 mg tablet Take 2 Tabs by mouth daily. 2 Tab 0 ??? albuterol 90 mcg/actuation inhaler Inhale 2 Puffs as directed every 4 hours. 3 Inhaler 3 ??? benztropine (COGENTIN) 2 mg tablet Take 2 Tabs by mouth 2 times daily. 360 Tab 0 ??? cyclobenzaprine (FLEXERIL) 10 mg tablet Take 1 Tab by mouth at bedtime. 30 Tab 5 ??? LORazepam (ATIVAN) 1 mg tablet Take 1 Tab by mouth 2 times daily. Daily Max: 2 mg 60 Tab 2 ??? miconazole (MICONAZOLE 7) 2 % vaginal cream Place 1 Applicator vaginally at bedtime. X 3 days (Patient not taking: Reported on 05/21/2017) 3 Tube 0 ??? nicotine polacrilex (NICORETTE) 4 mg gum Chew one piece of gum every hour as needed. Do not exceed 24 pieces per day. 50 Each 1 ??? omeprazole (PRILOSEC OTC) 20 mg tablet Take 1 Tab by mouth daily. 90 Tab 1 ??? perphenazine (TRILAFON) 2 mg tablet Take [...] 08/13/2016 ??? ziprasidone (GEODON) 60 mg capsule Take 2 Caps by mouth every evening. 60 Cap 5 ??? ziprasidone (GEODON) 80 mg capsule Take 1 Cap by mouth daily. 30 Cap 5 No current facility-administered medications for this visit. Allergies Allergen Reactions ??? Gluten Protein ??? Haldol [Haloperidol Lactate] paralysis ??? Paxil [Paroxetine Hcl] Nausea And Vomiting PE: BP 112/72 Pulse 100 Ht 161.9 cm (63.74) Wt (!) 115.7 kg (255 lb) BMI 44.13 kg/m2 General NAD alert and oriented ??3 Mood: reports normal affect is appropriate. She makes eye contact answers questions appropriately not flat. HEENT: head normocephalic eyes EOMI sclera normal hearing grossly intact clear tympanic membranes positive light reflex Mouth: no erythema No anterior or posterior lymphadenopathy Respiratory: CTA bilaterally Cardiovascular: S1-S2 no murmurs rubs or gallops Skin: intact no signs of infection Extremities: she is full range of motion in her upper and lower extremities Assessment: 26 yo female who presents for follow-up on her 9 schizophrenia with new onset fatigue GIdisturbance and positive influenza A contact Plan: 1) Fatigue, gi disturbance and fever with recent positive flu contact. Discussed risk benefits of starting Tamiflu. Will start Tamiflu 75mg po bid x 5 days 2) Paranoid Schizophrenia - continue current treatment. Reports stable. Trilafon 2mg po bid and 4 mg prn as needed Zoloft 100mg po daily Ziprasidone 120mg po AM, 80mg PO QHS Lorazepam 1mg po bid Benztropine 4mg po bid 3) marijuana forms - last completed by Dr. Bose. Will get forms and send in. Do think she is stable on her current medication regimen 4) smoking cessation - patient reports having difficulty with smoking cessation. She'll continue in Nicorette gum. Continue to encourage patient to not give up. Follow up in 3 months Sana Muhammad MD documented in this encounter Plan of Treatment Not on filedocumented as of this encounter Visit Diagnoses Diagnosis Paranoid schizophrenia (HCC-CMS) (HCC) - Primary Paranoid schizophrenia, unspecified cond ition Tobacco dependence syndrome Tobacco use disorder Influenza A Influenza with other respiratory manifes tations documented in this encounter Discontinued Medications Medication Sig Discontinue Reason Start Date End Date LORazepam (ATIVAN) 1 mg Take 1 Tab by Reorder 02/26/2017 tabletIndications: mouth 2 times Paranoid schizophrenia daily. Daily Max: (HCC-CMS) (HCC) 2 mg documented as of this encounter Care Teams Tdp Displays Analyst Relationship Specialty Start Date End Date Sana Muhammad MD PCP - General 12/02/16 08/05/20 documented as of this encounter
--- OUTSIDE RECORDS SUMMARY | 2021-08-16 23:32 | XMS_ITS | Encounter Summary ---
:1990 Author Organization [facility] Address [address] [place] [address] Care Team Providers Name Role Phone Sana Muhammad MD Primary Care Provider Reason for Visit Reason Comments Other Encounter Details Date Type Department Care Team Description 02/15/2017 Refill [facility] Family Sana Muhammad MD Other Medicine - [address] [place] [address] [place], [place] [address] [phone] Social History Tobacco Use Types Packs/Day Years [...] take 1 tablet by 75 Tab 0 201602/26/2017 tabletIndications: mouth twice a day MAY Paranoid schizophrenia TAKE 1 ADDITIONAL IF (HCC-CMS) (HCC) NEEDED maximum daily dose of 3 documented in this encounter Miscellaneous Notes Telephone Encounter - Yasmany Moyer, RN - 02/16/2017 0839 EST Medication(s) Requested: Lorazepam 1 mg Preferred [facility]acy: [facility] Is patient out of medication? Unknown Last Refill Date: 01/08/17 Last Visit Date with Ordering Provider: 12/02/16 Next Non-Acute Visit Date Scheduled with Care Team: Yes. 02/26/17 YASMANY MOYER RN 02/16/2017 8:41 documented in this encounter Plan of Treatment Not on filedocumented as of this encounter Visit Diagnoses Diagnosis Paranoid schizophrenia ([facility]-CMS) ([facility]) - Primary Paranoid schizophrenia, unspecified cond ition documented in this encounter Discontinued Medications Medication Sig Discontinue Reason Start Date End Date LORazepam (ATIVAN) 1 mg Take 1 Tab by mouth Reorder 01/08/2017 02/15/2017 tabletIndications: 2 times daily. Take Paranoid schizophrenia 1 mg BID, and 1 (HCC-CMS) ([facility]) additional PRN Daily Max: 3 mg documented as of this encounter Care Teams Quality Process Lead Relationship Specialty Start Date End Date Sana Muhammad MD PCP - General 12/02/16 08/05/20 documented as of this encounter
--- OUTSIDE RECORDS SUMMARY | 2021-08-16 23:32 | XMS_ITS | Encounter Summary ---
:1990 Author Organization [facility] Address [address] [place] [address] Care Team Providers Name Role Phone Sana Muhammad MD Primary Care Provider Reason for Visit Reason Comments Vaginal Discharge Encounter Details Date Type Department Care Team Description 08/25/2017 Office Visit [facility] Sana Muhammad Weigh t gain (Primary Dx); Family Medicine - MD Ramonita Uses contraceptive implant for con [address] [address] [phone] Social History Tobacco Use Types Packs/Day Years Used Date Current Every Day Smoker 0.5 10 Smokeless Tobacco: Never Used Alcohol Use Standard Drinks/Week Comments No 0 (1 standard drink = 0.6 oz pure alcoho l) occ Sex Assigned at Date Recorded Not on file documented as of this encounter Last Filed Vital Signs Vital Sign Reading Time Taken Comments Blood Pressure 122/88 08/25/2017 1419 EDT Pulse 120 08/25/2017 1419 EDT Temperature - - Respiratory Rate - - Oxygen Saturation - - Inhaled Oxygen Concentration - - Weight 113.4 kg (250 lb) 08/25/2017 1419 EDT Height 163.2 cm (5' 4.25) 08/25/2017 1419 EDT Body Mass Index 42.58 08/25/2017 1419 EDT documented in this encounter Functional Status [...] documented as of this encounter Progress Notes Sana Muhammad MD - 08/25/2017 1430 EDT PROGRESS NOTE Chief Complaint Patient presents with ??? Vaginal Discharge HPI: Mary Grace, 26 y.o. is here for 1) vaginal discharge patient reports her vaginal discharge has stopped since last February. She denies any recent vaginal discharge. 2) she reports her various concerned as her recently weight gain. She states over the past year she lost 40 pounds for the past month she quit back on 20. She states her partner quit drinking but started drinking Sunkist as a result she's been doing a lot more soda. She states that sugar makes her feel a bit more happy and gives her a little bit of high. She states she is able to not drink soda instead will drink seltzer. She knows that she is to go back on to her previous diet. She reports she does have family history of diabetes in her grandfather. Denies any recent changes in her urination. Denies any other new or concerning symptoms. 3) Nexplanon. Patient had it placed in 08/2016. Reports she doesn't like the way the adhesions make her feel. She also states that she's noticed more boils using it. She reports in the past she's used Depo- Provera initially she had weight gain but then stabilized. She has an assessment weight gain with the nexplanon. ROS: 10 Systems reviewed found to be negative except as above. Patient Active Problem List Diagnosis ??? Depression ??? Celiac disease ??? Anxiety ??? Paranoid schizophrenia (HCC-CMS) ??? Chronic pain syndrome ??? Supervision of normal first ??? Tobacco dependence syndrome ??? Schizophrenia, paranoid (HCC-CMS) Past Surgical History: Procedure Laterality Date ??? FINGER SURGERY left ??? WISDOM TOOTH EXTRACTION family history includes Bipolar Disorder in an other family member; Diabetes in her maternal grandfather; No Known in her son; Schizophrenia in her mother. reports that she [...] 5 ??? LORazepam (ATIVAN) 1 mg tablet take 1 tablet by mouth twice a day 60 Tab 2 ??? omeprazole (PRILOSEC OTC) 20 mg tablet [...] [Paroxetine Hcl] Nausea And Vomiting PE: BP 122/88 Pulse (!) 120 Ht 163.2 cm (64.25) Wt (!) 113.4 kg (250 lb) BMI 42.58 kg/m2 General NAD alert and oriented ??3 Mood: reports normal affect is appropriate. She makes eye contact answers questions appropriately not flat. HEENT: head normocephalic eyes EOMI sclera normal hearing grossly intact Respiratory: normal respiratory effort bilaterally Cardiovascular: S1-S2 no murmurs rubs or gallops Skin: intact no signs of infection Extremities: she is full range of motion in her upper and lower extremities Nexplanon is palpable, movable in her left arm just under her bicep. Assessment: 26-year-old female who comes in for follow-up with recently cane discussed with patient most likely related to dietary changes as her medication has been unchanged. Discussed with her givenher family history and medication history she is at increased risk for diabetes. Like her to increase her soda intake. If she continues to have weight gain would recommend repeating a A1c. She did havea recent cmp 06/10/2017 which showed sugar of 78. Plan: Follow up in 6 months. 1) Weight gain - would recommend switching from soda to [place]. If continued weight gain then will repeat screening for diabetes 2) Control options - discussed going back to push shot versus Depo. If patient would like nexplanon removed she will schedule pain another appointment at that time will repeat depo shot at that time. Sana Muhammad MD A total of 25 minutes was spent with the patient with greater than 50% of the time spent discussingassessment, treatment and activity modification. Sana Muhammad MD documented in this encounter Plan of Treatment Not on filedocumented as of this encounter Goals Goal Patient Goal Associated Recent Patient-Stated? 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, dependence Vania syndrome documented as of this encounter Visit Diagnoses Diagnosis Weight gain - Primary Abnormal weight gain Uses contraceptive implant for con trol documented in this encounter Care Teams Elastic Attacher Coverstitch Relationship Specialty Start Date End Date Sana Muhammad MD PCP - General 12/02/16 08/05/20 documented as of this encounter
--- OUTSIDE RECORDS SUMMARY | 2021-08-16 23:32 | XMS_ITS | Encounter Summary ---
:1990 Author Organization [facility] Address [address] [place] [address] Care Team Providers Name Role Phone Sana Muhammad MD Primary Care Provider Reason for Visit Reason Comments Other Encounter Details Date Type Department Care Team Description 01/16/2017 Refill [facility] Arely Zhu, Other Medicine - [facility] Raman martinez MD [address] [facility] [address] [place], [place] [address] [place], [place] [phone] (Wo rk) Social History Tobacco Use Types [...] Refills Start Date End Date ziprasidone (GEODON) 60 take 2 capsules by 60 Cap 5 01/0602/26/2017 mg capsuleIndications: mouth at bedtime Paranoid schizophrenia (HCC-CMS) ([facility]) ziprasidone (GEODON) 80 take 1 capsule by 30 Cap 5 01/1802/26/2017 mg capsuleIndications: mouth daily Paranoid schizophrenia ([facility]) ([facility]) documented in this encounter Miscellaneous Notes Telephone Encounter - Yasmany Moyer RN - 01/18/2017 1154 EST Medication(s) Requested: Geodon 80 mg 30 with 5 refills Geodon 60 mg 60 with 5 refills [facility]erred [facility]acy[facility] Is patient out of medication? Unknown Last Refill Date: 07/29/16 Last Visit Date with Ordering Provider: 12/02/16 Next Non-Acute Visit Date Scheduled with Care Team: Yes. 02/26/17 Prescription approved YASMANY MOYER RN 01/18/2017 11:55 documented in this encounter Plan of Treatment Not on filedocumented as of this encounter Visit Diagnoses Diagnosis Paranoid schizophrenia ([facility]) ([facility]) - Primary Paranoid schizophrenia, unspecified cond ition documented in this encounter Discontinued Medications Medication Sig Discontinue Reason Start Date End Date ziprasidone (GEODON) 80 mg Take 1 Cap by Reorder 07/29/2016 01/16/2017 capsuleIndications: mouth daily. Paranoid schizophrenia (HCC-CMS) ([facility]) ziprasidone (GEODON) 60 mg Take 2 Caps by Reorder 07/29/2016 01/16/2017 capsuleIndications: mouth at bedtime. Paranoid schizophrenia (HCC-CMS) ([facility]) documented as of this encounter Care Teams Sponge Buffer Relationship Specialty Start Date End Date Sana Muhammad MD PCP - General 12/02/16 08/05/20 documented as of this encounter
--- OUTSIDE RECORDS SUMMARY | 2021-08-16 23:32 | XMS_ITS | Encounter Summary ---
:[address] [facility] Address [address] [place] [address] Care Team Providers Name Role Phone Sana Muhammad MD Primary Care Provider Encounter Details Date Type Department Care Team Description 12/02/2016 Orders Only [facility] Family Sana Muhammad MD [facility] - [address] [place] [address] [place], [place] [id number] [phone] Social History Tobacco Use Types Packs/Day Years [...] Reason Start Date End Date ziprasidone (GEODON) 20 mg Take 1 Cap by 12/02/2016 12/02/2016 capsuleIndications: mouth as needed Paranoid schizophrenia for Other. ([facility]) ([facility]) documented as of this encounter Care Teams Neurodiagnostic Tech Relationship Specialty Start Date End Date Sana Muhammad MD PCP - General 12/02/16 08/05/20 documented as of this encounter
--- OUTSIDE RECORDS SUMMARY | 2021-08-16 23:32 | XMS_ITS | Encounter Summary ---
:1990 Author Organization [facility] Address [address] [place] [address] Care Team Providers Name Role Phone Filipe Bose MD Primary Care Provider Reason for Visit Reason Onset Date Comments Contraception 07/29/2016 Encounter Details Date Type Department Care Team Description 07/29/2016 Telephone [facility] Dyllan Bose MD Contraception Family Medicine - [address] [address] [place] [address] [phone] Social History Tobacco Use Types Packs/Day Years [...] Notes Telephone Encounter - Mita Johnson - 07/30/2016 0956 EDT Whitney called back and said the device was mailed out yesterday and we should have it by tomorrow. Advised patient and she is scheduled for 08/13/[address] Villavicencio. elephone Encounter - Mita Johnson - 07/30/2016 0945 EDT Left message with Liz at [employer] on 07/29, no return call. Called [employer] again and spoke with Praveena. She is going to e-mail the pharmacy and find out the status of this device. elephone Encounter - Chiqui Rodriguez - 07/29/2016 1632 EDT error elephone Encounter - Mita Johnson - 07/29/2016 1006 EDT Left message on machine for Liz at [employer] to call me back. elephone Encounter - Lamar Pavon - 07/29/2016 0928 EDT Patient is calling to check status of her Nexplanon reporting she did receive a call from the [employer] who told patient this would be sent to her PCP office - not currently received. documented in this encounter Plan of Treatment Not on filedocumented as of this encounter Visit Diagnoses Not on filedocumented in this encounter Care Teams Humanities Teacher Relationship Specialty Start Date End Date Filipe Bose MD PCP - General 11/07/15 12/01/16 documented as of this encounter
--- OUTSIDE RECORDS SUMMARY | 2021-08-16 23:32 | XMS_ITS | Encounter Summary ---
:1990 Author Organization [facility] Address [address] [place] [address] Care Team Providers Name Role Phone Sana Muhammad MD Primary Care Provider Reason for Visit Reason Onset Date Comments Medications Refill 02/03/2017 Encounter Details Date Type Department Care Team Description 02/03/2017 Refill [facility] Family Sana Muhammad MD Medications Refill Medicine - [address] [address] [place], [place] [address] [phone] Social History Tobacco Use Types Packs/Day Years [...] Refills Start Date End Date nicotine polacrilex Chew one piece of 50 Each 1 7 02/26/2017 (NICORETTE) 4 mg gum gum every hour as needed. Do not exceed 24 pieces per day. documented in this encounter Miscellaneous Notes Telephone Encounter - Doug Rojo - 02/03/2017 1418 EST Telephone call to pt to make aware that script has been sent elephone Encounter - Yasmany Moyer RN - 02/03/2017 1409 EST All documentation reviewed and approved. YASMANY MOYER RN 02/03/2017 14:09 elephone Encounter - Klarissa Mesa - 02/03/2017 1207 EST WOULD LIKE CALL TOO Medication(s) Requested: NICOTINE (POLACRILEX) 4 MG GUM Preferred Pharmacy: [facility] Is patient out of medication? Yes Last Refill Date: 12/02/16 Last Visit Date with Ordering Provider: 12/02/16 Next Non-Acute Visit Date Scheduled with Care Team: No. Klarissa Mesa 02/03/2017 12:17 documented in this encounter Plan of Treatment Not on filedocumented as of this encounter Visit Diagnoses Not on filedocumented in this encounter Discontinued Medications Medication Sig Discontinue Reason Start Date End Date nicotine polacrilex Chew one piece of Reorder 12/02/2016 (NICORETTE) 4 mg gum gum every hour as needed. Do not exceed 24 pieces per day. documented as of this encounter Care Teams Vibration Engineer Relationship Specialty Start Date End Date Sana Muhammad MD PCP - General 12/02/16 08/05/20 documented as of this encounter
--- OUTSIDE RECORDS SUMMARY | 2021-08-16 23:32 | XMS_ITS | Encounter Summary ---
:1990 Author Organization [facility] Address [address] [place] [address] Care Team Providers Name Role Phone Filipe Bose MD Primary Care Provider Reason for Visit Reason Onset Date Comments Medications Refill 07/29/2016 Encounter Details Date Type Department Care Team Description 07/29/2016 Refill [facility] Dyllan Bose MD Medications Refill Family Medicine - [address] [place] [phone] [place] [address] Drive [place], [place] [id number] [phone] Social History Tobacco Use Types Packs/Day Years [...] Sig Dispensed Refills Start Date End Date sertraline (ZOLOFT) 100 mg Take 1 Tab by mouth 30 Tab 5 07/29/2016 02/26/2017 tabletIndications: at bedtime. Unknown Paranoid schizophrenia dose ([facility]) ([facility]) ziprasidone (GEODON) 80 mg Take 1 Cap by mouth 30 Each 5 07/29/2016 01/16/2017 capsuleIndications: daily. Paranoid schizophrenia (HCC-CMS) ([facility]) ziprasidone (GEODON) 60 mg Take 2 Caps by 60 Each 5 07/2901/16/2017 capsuleIndications: mouth at bedtime. Paranoid schizophrenia (HCC-CMS) ([facility]) LORazepam (ATIVAN) 1 mg take 1 tablet by 75 Tab 0 201608/26/2016 tablet mouth twice a day MAY TAKE 3RD TAB IF NEEDED documented in this encounter Miscellaneous Notes Telephone Encounter - Lamar Pavon - 07/29/2016 0921 EDT Medication(s) Requested: Lorazepam 1 mg #75 w/0R Ziprasidone 80 mg #30 w/5R Ziprasidone 60 mg #60 w/5R Sertraline 100 mg #30 w/5R Pharmacy: [facility] Last Refill Date: 06/26/16 03/25/16 03/25/16 03/25/16 Last Visit Date: 06/26/16 Next Visit Date: 09/24/16 Is patient out of medication? Fay Pavon 07/29/2016 9:21 documented in this encounter Plan of Treatment Not on filedocumented as of this encounter Visit Diagnoses Diagnosis Paranoid schizophrenia (HCC-CMS) ([facility]) - Primary Paranoid schizophrenia, unspecified cond ition documented in this encounter Discontinued Medications Medication Sig Discontinue Reason Start Date End Date LORazepam (ATIVAN) 1 mg take 1 tablet by Reorder 05/29/2016 07/29/2016 tablet mouth twice a day MAY TAKE 3RD TAB IF NEEDED ziprasidone (GEODON) 60 Take 2 Caps by Reorder 03/25/2016 mg capsuleIndications: mouth at bedtime. Paranoid schizophrenia (HCC-CMS) ([facility]) ziprasidone (GEODON) 80 Take 1 Cap by mouth Reorder 03/25/2016 07/29/2016 mg capsuleIndications: daily. Paranoid schizophrenia (HCC-CMS) ([facility]) sertraline (ZOLOFT) 100 Take 1 Tab by mouth Reorder 03/25/2016 07/29/2016 mg tabletIndications: at bedtime. Unknown Paranoid schizophrenia dose ([facility]) ([facility]) documented as of this encounter Care Teams Prosthetics Lab Technician Relationship Specialty Start Date End Date Filipe Bose MD PCP - General 11/07/15 12/01/16 documented as of this encounter
--- OUTSIDE RECORDS SUMMARY | 2021-08-16 23:32 | XMS_ITS | Encounter Summary ---
:1990 Author Organization [facility] Address [address] [place] [address] Care Team Providers Name Role Phone Sana Muhammad MD Primary Care Provider Reason for Visit Reason Onset Date Comments Appointment Related 06/02/2017 Encounter Details Date Type Department Care Team Description 06/02/2017 Telephone [facility] Sana Muhammad Ap pointment Related Family Medicine - [address] [address] [place], [place] [id number] [phone] Social History Tobacco Use Types Packs/Day Years [...] this encounter Miscellaneous Notes Telephone Encounter - Raghu Johnsony - 06/02/2017 3167 EDT Patient is aware she missed her appointment for 06/01/17 and is rescheduled for 06/10/[address] Mccord. documented in this encounter Plan of Treatment Not on filedocumented as of this encounter Goals Goal Patient Goal Associated Recent Patient-Stated? 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Independence, dependence Vania syndrome documented as of this encounter Visit Diagnoses Not on filedocumented in this encounter Care Teams Upholstery Auto Trimmer Relationship Specialty Start Date End Date Sana Muhammad MD PCP - General 12/02/16 08/05/20 documented as of this encounter
--- OUTSIDE RECORDS SUMMARY | 2021-08-16 23:32 | XMS_ITS | Encounter Summary ---
:1990 Author Organization [facility] Address [address] [place] [address] Care Team Providers Name Role Phone Filipe Bose MD Primary Care Provider Reason for Visit Reason Comments Other Encounter Details Date Type Department Care Team Description 08/26/2016 Refill [facility] Family Moon Bose MD Other Medicine - [address] [address] [place] [address] [phone] Social History Tobacco Use Types Packs/Day Years [...] take 1 tablet by 75 Tab 0 201610/29/2016 tablet mouth twice a day MAY TAKE A 3RD TABLET IF NEEDED documented in this encounter Miscellaneous Notes Telephone Encounter - Yasmany Moyer RN - 08/26/2016 1040 EDT Medication(s) Requested: Lorazepam 1 mg 75 with 0 refills Pharmacy: [facility] Last Refill Date: 07/29/16 Last Visit Date: 06/26/16 Next Visit Date: 10/01/2016 Is patient out of medication? Unknown YASMANY MOYER RN 08/26/2016 10:40 documented in this encounter Plan of Treatment Not on filedocumented as of this encounter Visit Diagnoses Not on filedocumented in this encounter Discontinued Medications Medication Sig Discontinue Reason Start Date End Date LORazepam (ATIVAN) 1 mg take 1 tablet by Reorder 07/29/2016 08/26/2016 tablet mouth twice a day MAY TAKE 3RD TAB IF NEEDED documented as of this encounter Care Teams Floor Supervisor Relationship Specialty Start Date End Date Filipe Bose MD PCP - General 11/07/15 12/01/16 documented as of this encounter
--- OUTSIDE RECORDS SUMMARY | 2021-08-16 23:32 | XMS_ITS | Encounter Summary ---
:1990 Author Organization [facility] Address [address] [place] [address] Care Team Providers Name Role Phone Filipe Bose MD Primary Care Provider Reason for Visit Reason Comments Medications Refill pt states she ran out of her ativan yesterday and feels shaky. States she has been on ativa n since age 11. Encounter Details Date Type Department Care Team Description 10/31/2016 Emergency [facility] Giovanni Galicia, PAJenniferC [address] [facility], [address] [place] [address] Encounter for Emergency Department Emergency, MD Chelsy medication refill - [facility] (Primary Dx) [address] [place] [address] Social History Tobacco Use Types Packs/Day Years Used Date Current Every Day Smoker 0.5 10 Smokeless Tobacco: Never Used Alcohol Use Standard Drinks/Week Comments No 0 (1 standard drink = 0.6 oz pure alcoho l) occ Sex Assigned at Date Recorded Not on file documented as of this encounter Last Filed Vital Signs Vital Sign Reading Time Taken Comments Blood Pressure 127/74 10/31/20161948 EDT Pulse 109 10/31/20162114 EDT Temperature 37 ??C (98.6 ??F) 10/31/20161948 EDT Respiratory Rate 20 10/31/20161948 EDT Oxygen Saturation 99% 10/31/20162114 EDT Inhaled Oxygen Concentration - - Weight 113.4 kg (250 lb) 10/31/2016 1947 EDT Height 162.6 cm (5' 4) 10/31/20161946 EDT Body Mass Index 42.91 10/31/20161946 EDT documented in this encounter Functional Status [...] as of this encounter Discharge Diagnoses Diagnosis F20.0 Paranoid schizophrenia-F20.0[ICD-1 0-CM] F41.9 Anxiety disorder, unspecified-F41. 9[ICD-10-CM] Z79.899 Other shelter (current) drug t herapy-Z79.899[ICD-10-CM] J45.909 Unspecified asthma, uncomplicate d-J45.909[ICD-10-CM] F17.200 Nicotine dependence, unspecified , uncomplicated-F17.200[ICD-10-CM] documented in this encounter Discharge Instructions InstructionsGiovanni Galicia PA - 10/31/2016 Need to follow up with her primary care provider for any medication refills. AttachmentsThe following attachments cannot be sent through Care Everywhere. ANXIETY DISORDER ([facility])documented in this encounter Medications at Time of Discharge Medication Sig Dispensed Refills Start Date End Date albuterol 90 Inhale 2 Puffs as 3 Inhaler 3 01/04/201612/02 mcg/actuation directed every 4 inhalerIndications: hours. inhale 2 puffs before exercise benztropine (COGENTIN) 2 take 2 tablets by 360 Tab 0 08/0711/25/2016 mg tabletIndications: mouth twice a day Paranoid schizophrenia (HCC-CMS) ([facility]) cyclobenzaprine Take 1 Tab by mouth 30 Tab 1 03/24/2016 02/20/2017 (FLEXERIL) 10 mg tablet 2 times daily as needed for Muscle Spasms. LORazepam (ATIVAN) 1 mg take 1 tablet by 75 Tab 0 201612/02/2016 tablet mouth twice a day (MAY TAKE A 3RD TABLET IF NEEDED) LORazepam (ATIVAN) 1 mg Take 1 Tab by mouth 75 Tab 0 01/07/2017 tabletIndications: 2 times daily. Take Paranoid schizophrenia 1 mg BID, and 1 (HCC-CMS) ([facility]) additional PRN Daily Max: 2 mg perphenazine (TRILAFON) 2 Take 1 Tab by mouth 30 Tab 5 0 08/27/2016 01/11/2017 mg tabletIndications: daily. Paranoid schizophrenia (HCC-CMS) ([facility]) perphenazine (TRILAFON) 4 Take 1 Tab by mouth 30 Tab 5 0 03/25/2016 12/02/2016 mg tabletIndications: as needed (can take Paranoid schizophrenia 1-2 tabs PRN in (HCC-CMS) (HCC) addition to her 2 mg (maximum 10 mg dose)). sertraline (ZOLOFT) 100 Take 1 Tab by mouth 30 Tab 5 02/26/2017 mg tabletIndications: at bedtime. Unknown Paranoid schizophrenia dose (HCC-CMS) ([facility]) ziprasidone (GEODON) 20 Take 1 Cap by mouth 60 Cap 2 12/02/2016 mg capsuleIndications: as needed for Other. Paranoid schizophrenia (HCC-CMS) ([facility]) ziprasidone (GEODON) 60 Take 2 Caps by mouth 60 Each 5 01/16/2017 mg capsuleIndications: at bedtime. Paranoid schizophrenia (HCC-CMS) ([facility]) ziprasidone (GEODON) 80 Take 1 Cap by mouth 30 Each 5 01/16/2017 mg capsuleIndications: daily. Paranoid schizophrenia (HCC-CMS) ([facility]) documented as of this encounter Discharge Disposition Disposition Code Departure Means Destination Home or Self Care Walk-out Home documented in this encounter ED Notes Giovanni Galicia PA - 10/31/2016 2116 EDT DOS: 10/31/2016 Chief Complaint Patient presents with ??? Medications Refill pt states she ran out of her ativan yesterday and feels shaky. States she has been on ativan since age 11. HPI The patient is a 25 y.o. female who presents today with Medications Refill (pt states she ran out ofher ativan yesterday and feels shaky. States she has been on ativan since age 11.) HPI Comments: 5-year-old female with long history of psychiatric disease including anxiety and paranoid schizophrenia, patient is here because she has run out of her lorazepam, it is the weekend and she is unable to get her medications filled. She states that there was a new doctor taking over her medi cations and she has been unable to get anything filled. The history is provided by the patient. Medications Refill Associated symptoms: no abdominal pain, no chest pain, no congestion, no fever, no headaches, no rash, no shortness of breath and no sore throat Review of Systems Review of Systems Constitutional: [...] for adenopathy. Does not bruise/bleed easily. Psychiatric/Behavioral: Negative for behavioral problems, confusion, hallucinations, self-injury andsuicidal ideas. The patient is nervous/anxious. All other systems reviewed and are negative. The patient's past medical, family and social history was reviewed and updated as needed. Allergies Allergen Reactions ??? Gluten Protein ??? Haldol [Haloperidol Lactate] paralysis ??? Paxil [Paroxetine Hcl] Nausea And Vomiting Vital Signs Vitals Reassessment?: Yes Temp: 37 ??C (98.6 ??F) Pulse: (!) 109 Resp: 20 SpO2: 99 % BP: 127/74 BP Device: BP Machine Patient Position: Sitting O2 Device: None (Room air) Physical Exam Constitutional: She appears well-developed and well-nourished. HENT: Head: Normocephalic and atraumatic. [...] sensory deficit. Skin: No rash noted. Psychiatric: She has a normal mood and affect. Nursing note and vitals reviewed. RESULTS EKG orders: None Radiology orders: None ED Lab Results Labs Reviewed - No data to display Relevant Data Procedures ED COURSE A medical screening exam was performed. Notes were reviewed patient did have a prescription for lorazepam called in by her primary care doctor I discussed that I would cover her for the day and that any other medications will need to come through her primary care provider ASSESSMENT AND PLAN Final diagnoses: Encounter for medication refill ED Current Prescriptions None DISPOSITION: Discharged The patient's pain was managed to an adequate level weighing risk vs. benefit of further medications. Upon departure from the Emergency Department, the patient's pain was on a zero to ten scale. Any further pain treatment will be at the discretion of the provider following up with the patient based on their clinical assessment. Condition at departure from the Emergency Department: Good PCP: Filipe Jasso was available for supervision. 11/02/2016 14:50 No flowsheet data found. Wendi Booth RN - 10/31/20162114 EDT Patient verbalized understanding of discharge instructions. Did not want to wait for discharge vitals. Patient ambulates with steady gait and is alert an oriented x3. No signs of distress. Respirationsequal and unlabored. Luna Avery RN - 10/31/20161946 EDT Chief Complaint Patient presents with ??? Medications Refill pt states she ran out of her ativan yesterday and feels shaky. States she has been on ativan since age 11. documented in this encounter Plan of Treatment Not on filedocumented as of this encounter Visit Diagnoses Diagnosis Encounter for medication refill - Primar y Issue of repeat prescriptions documented in this encounter Administered Medications Inactive Administered Medications - up to 3 most recent administrations Medication Order MAR Action Action Date Dose Rate Site Lorazepam 1 mg Tab??STARTER PACK Given 10/31/2016 21:14 EDT 1 Package 1 Package, oral, NOW X1, 1 dose, On 10/31/16 at 2115, STAT documented in this encounter Discontinued Medications Medication Sig Discontinue Reason Start Date End Date clindamycin (CLEOCIN T) Apply topically 2 01/04/2016 10/31/2016 1 % external solution times daily. use thin film on affected area documented as of this encounter Active and Recently Administered Medications Times are shown in EDT. Scheduled Medication Order 10/29/2016 10/30/2016 10/31/2016 Lorazepam 1 mg Tab??STARTER PACK (COMPLETED) 2113 (Given - Provider: Wendi Resendez RN) 1 Package, oral, NOW X1, 1 dose, 10/31/16 at 2115, STAT documented in this encounter Orders Medications Ordered That Might Not Have Count Last Ord ered Date First Ordered Date Been Administered Lorazepam 1 mg Tab??STARTER PACK 1 10/31/2016 documented in this encounter Care Teams Drilling Contractor Relationship Specialty Start Date End Date Filipe Bose MD PCP - General 11/07/15 12/01/16 documented as of this encounter
--- OUTSIDE RECORDS SUMMARY | 2021-08-16 23:32 | XMS_ITS | Encounter Summary ---
:1990 Author Organization [facility] Address [address] [place] [address] Care Team Providers Name Role Phone Filipe Bose MD Primary Care Provider Reason for Visit Reason Onset Date Comments Appointment Related 08/14/2016 Encounter Details Date Type Department Care Team Description 08/14/2016 Telephone [facility] Dyllan Bose MD Appointment Related Family Medicine - [address] [place] [address] [place] [address] [phone] Social History Tobacco Use Types Packs/Day Years [...] Notes Telephone Encounter - Doug Rojo - 08/18/2016 1643 EDT 2nd attempt to reach pt to reschedule elephone Encounter - Doug Rojo - 08/14/2016 1035 EDT Left message on machine for patient to call back and reschedule bumped appt. documented in this encounter Plan of Treatment Not on filedocumented as of this encounter Visit Diagnoses Not on filedocumented in this encounter Care Teams Novelty Twister Operator Relationship Specialty Start Date End Date Filipe Bose MD PCP - General 11/07/15 12/01/16 documented as of this encounter
--- OUTSIDE RECORDS SUMMARY | 2021-08-16 23:32 | XMS_ITS | Encounter Summary ---
:1990 Author Organization [facility] Address [address] [place] [address] Care Team Providers Name Role Phone Filipe Bose MD Primary Care Provider Reason for Visit Reason Onset Date Comments Medication Questions 07/02/2016 Encounter Details Date Type Department Care Team Description 07/02/2016 Telephone [facility] Dyllan Bose MD Medication Questions Family Medicine - [address] [place] [address] [place] [address] [phone] Social History Tobacco Use Types Packs/Day Years [...] this encounter Miscellaneous Notes Telephone Encounter - Kassandra Asif RN - 07/02/2016 0871 EDT Spoke with pharmacist and the 20mg Geodon is PRN. elephone Encounter - Lamar Pavon - 07/02/2016 0837 EDT Pharmacy is calling questioning patient's Geodon dosing--Is this an increase? documented in this encounter Plan of Treatment Not on filedocumented as of this encounter Visit Diagnoses Not on filedocumented in this encounter Care Teams Mobile Unit Assistant Relationship Specialty Start Date End Date Filipe Bose MD PCP - General 11/07/15 12/01/16 documented as of this encounter
--- OUTSIDE RECORDS SUMMARY | 2021-08-16 23:32 | XMS_ITS | Encounter Summary ---
:1990 Author Organization [facility] Address [address] [place] [address] Care Team Providers Name Role Phone Sana Muhammad MD Primary Care Provider Reason for Visit Reason Onset Date Comments Medications Refill 01/18/2017 Encounter Details Date Type Department Care Team Description 01/18/2017 Refill [facility] Sana Muhammad MD Medications Refill Medicine - [address] [address] [place], [place] [address] [phone] Social History Tobacco Use Types Packs/Day Years [...] Sig Dispensed Refills Start Date End Date omeprazole (PRILOSEC OTC) Take 1 Tab by mouth 90 Tab 0 1 03/20/2016 02/26/2017 20 mg tablet daily. documented in this encounter Miscellaneous Notes Telephone Encounter - Ernestine Polanco RN - 01/18/2017 1556 EST Omeprazole approved for 90 days for insurance purposes. elephone Encounter - Lamar Pavon - 01/18/2017 1537 EST Medication(s) Requested: Omeprazole 20 mg Preferred [facility]acy: [facility] Is patient out of medication? No Last Refill Date: 12/02/16 Last Visit Date with Ordering Provider: 12/02/16 Next Non-Acute Visit Date Scheduled with Care Team: Yes.02/26/17 Insurance requires a 90-day script. Lamar Pavon 01/18/2017 15:46 documented in this encounter Plan of Treatment Not on filedocumented as of this encounter Visit Diagnoses Not on filedocumented in this encounter Discontinued Medications Medication Sig Discontinue Reason Start Date End Date omeprazole (PRILOSEC OTC) Take 1 Tab by mouth Reorder 01/14/20 17 01/18/2017 20 mg tablet daily. documented as of this encounter Care Teams Small Arms Artillery Repairer Relationship Specialty Start Date End Date Snaa Muhammad MD PCP - General 12/02/16 08/05/20 documented as of this encounter
--- OUTSIDE RECORDS SUMMARY | 2021-08-16 23:32 | XMS_ITS | Encounter Summary ---
:1990 Author Organization [facility] Address [address] [place] [address] Care Team Providers Name Role Phone Filipe Bose MD Primary Care Provider Reason for Visit Reason Comments Contraception Nexplanon placement Encounter Details Date Type Department Care Team Description 08/13/2016 Office Visit [facility] Saud, Jacquelyncandice Bey non insertion Family Medicine - (Primary D x) [address] [address] Social History Tobacco Use Types Packs/Day Years Used Date Current Every Day Smoker 0.5 10 Smokeless Tobacco: Never Used Alcohol Use Standard Drinks/Week Comments No 0 (1 standard drink = 0.6 oz pure alcoho l) occ Sex Assigned at Date Recorded Not on file documented as of this encounter Last Filed Vital Signs Vital Sign Reading Time Taken Comments Blood Pressure 138/88 08/13/2016 0842 EDT Pulse 110 08/13/2016 0842 EDT Temperature - - Respiratory Rate - - Oxygen Saturation - - Inhaled Oxygen Concentration - - Weight 122.5 kg (270 lb) 08/13/2016 0842 EDT Height 162.6 cm (5' 4) 08/13/2016 0842 EDT Body Mass Index 46.35 08/13/2016 0842 EDT documented in this encounter Functional Status [...] documented as of this encounter Progress Notes Jacquelyn Villavicencio MD - 08/13/2016 0845 EDT Procedure Note: Nexplanon Insert UPT negative. Patient currently using Depo provera for contraception. Last depo shot 05/29/16. Risks/benefits/alternatives of nexplanon reviewed. Procedure explained and patient gave verbal and written consent. 4cc of Lidocaine 1% injected in groove between triceps and biceps in left arm. Site prepped with alcohol. . Nexplanon inserted using insertion needle. Device palpated by both physician and patient. Pressure dressing applied. Lot [id number] Exp 08/2017 Ursula lambert - 08/13/2016 0845 EDT UPT performed per Dr. Villavicencio Results: negative Ursula Leong 08/13/2016 8:57 documented in this encounter Plan of Treatment Not on filedocumented as of this encounter Procedures Procedure Name Priority Date/Time Associated Diagnosis Comme nts POCT Routine 08/13/2016 8:50 EDT Nexplanon insertion Results for this TEST, VISUAL READ procedure are in the results section. documented in this encounter Results POCT URINE TEST (08/13/2016 8:50 EDT) Pathologist Sig nature Test, Urine, POC Negative . POINT OF CARE Control Line Present Yes POINT OF CARE Background Clear? Yes POINT OF CARE Specimen Urine (substance) Performing Organization Address City/State/ZIP Code [facility] e Number [facility] POINT OF CARE POINT OF CARE documented in this encounter Visit Diagnoses Diagnosis Nexplanon insertion - Primary Insertion of implantable subdermal contr aceptive documented in this encounter Care Teams Belt Measurer Relationship Specialty Start Date End Date Filipe Bose MD PCP - General 11/07/15 12/01/16 documented as of this encounter
--- OUTSIDE RECORDS SUMMARY | 2021-08-16 23:32 | XMS_ITS | Encounter Summary ---
:1990 Author Organization [facility] Address [address] [place] [address] Care Team Providers Name Role Phone Sana Muhammad MD Primary Care Provider Reason for Visit Reason Onset Date Comments Medications Refill 05/12/2017 Encounter Details Date Type Department Care Team Description 05/12/2017 Refill [facility] Sana Muhammad MD Medications Refill Medicine - [address] [address] [place] [address] [phone] Social History Tobacco Use Types Packs/Day Years [...] Telephone Encounter - Ernestine Polanco RN - 05/12/2017 2339 EST Spoke with the pharmacist. Patient has one refill of file for lorazepam but is not due to fill for 8 days. Patient notified. She states she will want to go back on the prn dose in addition to the scheduled BID dosing. She will discuss with Dr. Muhammad at her upcoming appointment on 05/21. elephone Encounter - Lamar Pavon - 05/12/2017 1438 EST Medication(s) Requested: Lorazepam 1 mg #60 w/2R Check VPMS [facility] Is patient out of medication? No - 6 pills left for 3 days Last Refill Date: 02/26/17 Last Visit Date with Ordering Provider: 02/26/17 Next Non-Acute Visit Date Scheduled with Care Team: Yes.05/21/17 Lamar Pavon 05/12/2017 14:39 documented in this encounter Plan of Treatment Not on filedocumented as of this encounter Visit Diagnoses Diagnosis Paranoid schizophrenia ([facility]) ([facility]) - Primary Paranoid schizophrenia, unspecified cond ition documented in this encounter Care Teams Nanny Caregiver Relationship Specialty Start Date End Date Sana Muhammad MD PCP - General 12/02/16 08/05/20 documented as of this encounter
--- OUTSIDE RECORDS SUMMARY | 2021-08-16 23:32 | XMS_ITS | Encounter Summary ---
:1990 Author Organization Address [address] [place] [address] Care Team Providers Name Role Phone Filipe Bose MD Primary Care Provider Encounter Details Date Type Department Care Team Description 06/11/2016 Emergency [facility] Giovanni Galicia, PA-C [address] [facility], [address] [place] [address] Bronchitis (Primary Emergency Department Emergency, MD Chelsy Dx) - [address] [place] [place] [address] Social History Tobacco Use Types [...] Sign Reading Time Taken Comments Blood Pressure 129/88 06/11/2016 1849 EDT Pulse 121 06/11/2016 1849 EDT Temperature 37.2 ??C (99 ??F) 06/11/2016 1849 EDT Respiratory Rate 24 06/11/2016 1849 EDT Oxygen Saturation 99% 06/11/2016 1849 EDT Inhaled Oxygen Concentration - - Weight 117.9 kg (260 lb) 06/11/2016 184 EDT Height 162.6 cm (5' 4) 06/11/2016 184 EDT Body Mass Index 44.63 06/11/2016 1849 EDT documented in this encounter Functional Status [...] as of this encounter Discharge Diagnoses Diagnosis J40 Bronchitis, not specified as acute o r chronic-J40[ICD-10-CM] F17.210 Nicotine dependence, cigarettes, uncomplicated-F17.210[ICD-10-CM] J45.990 Exercise induced bronchospasm-J4 5.990[ICD-10-CM] documented in this encounter Discharge Instructions Giovanni Boland PA - 06/11/2016 Use inhalers as needed otherwise continue with taking plenty of fluids getting rest follow-up with primary care provider as needed AttachmentsThe following attachments cannot be sent through Care Everywhere. BRONCHITIS (TURKISH)documented in this encounter Medications at Time of Discharge Medication Sig Dispensed Refills Start Date End Date albuterol 90 mcg/actuation Inhale 2 Puffs as 3 Inhaler 3 12/02/2016 inhalerIndications: inhale directed every 4 2 puffs before exercise hours. benztropine (COGENTIN) 2 Take 2 Tabs by 360 Tab 0 017 08/27/2016 mg tabletIndications: mouth 2 times daily Paranoid schizophrenia for 30 days. ([facility]) ([facility]) clindamycin (CLEOCIN T) 1 Apply topically 2 [...] day MAY TAKE 3RD TAB IF NEEDED LORazepam (ATIVAN) 1 mg Take 1 Tab by mouth 15 Tab 1 06/26/2016 tablet 3 times daily as needed for Anxiety. Daily Max: 3 mg perphenazine (TRILAFON) 2 Take 1 Tab by mouth 30 Tab 5 0 03/25/2016 08/27/2016 mg tabletIndications: daily. Paranoid schizophrenia (HCC-CMS) ([facility]) perphenazine (TRILAFON) 4 Take 1 Tab by mouth 30 Tab 5 0 03/25/2016 12/02/2016 mg tabletIndications: as needed (can take Paranoid schizophrenia 1-2 tabs PRN in (HCC-CMS) ([facility]) addition to her 2 mg (maximum 10 mg dose)). sertraline (ZOLOFT) 100 mg Take 1 Tab by mouth 30 Tab 5 03/25/2016 07/29/2016 tabletIndications: at bedtime. Unknown Paranoid schizophrenia dose (HCC-CMS) ([facility]) ziprasidone (GEODON) 20 mg Take 1 Cap by mouth 60 Cap 2 03/25/2016 06/26/2016 capsuleIndications: as needed for Paranoid schizophrenia Other. (HCC-CMS) ([facility]) ziprasidone (GEODON) 60 mg Take 2 Caps by 60 Each 5 03/2507/29/2016 capsuleIndications: mouth at bedtime. Paranoid schizophrenia (HCC-CMS) ([facility]) ziprasidone (GEODON) 80 mg Take 1 Cap by mouth 30 Each 5 03/25/2016 07/29/2016 capsuleIndications: daily. Paranoid schizophrenia (HCC-CMS) ([facility]) documented as of this encounter Discharge Disposition Disposition Code Departure Means Destination Home or Self Penitentiary documented in this encounter ED Notes Giovanni Galicia PA - 06/11/20162038 EDT DOS: 06/11/2016 No chief complaint on file. HPI The patient is a 25 y.o. female who presents today with No chief complaint on file. HPI Comments: 25-year-old female cigarette smoker here with history of cough over the last week. States her symptoms are improving she does feel occasionally chest tightness and wheezing. She is here mainly because her son also has similar complaints. The history is provided by the patient. Review of Systems Review of Systems Constitutional: Negative. Negative for chills and fever. HENT: Negative. Negative for congestion, sore throat and trouble swallowing. Eyes: Negative. Negative for visual disturbance. Respiratory: Positive for cough, chest tightness and wheezing. Negative for shortness of breath and stridor. Cardiovascular: Negative. Negative for chest pain, palpitations and leg swelling. Gastrointestinal: Negative. Negative for abdominal distention and abdominal pain. Endocrine: Negative. Genitourinary: Negative. Negative for dysuria and frequency. Musculoskeletal: Negative. Negative for arthralgias. Skin: Negative. Negative for rash. Allergic/Immunologic: Negative. Negative for immunocompromised state. Neurological: Negative. Negative for dizziness and headaches. Hematological: Negative. Negative for adenopathy. Does not bruise/bleed easily. Psychiatric/Behavioral: Negative. Negative for confusion. All other systems reviewed and are negative. Allergies Allergen Reactions ??? Gluten Protein ??? Haldol [Haloperidol Lactate] paralysis ??? Paxil [Paroxetine Hcl] Nausea And Vomiting Vital Signs Temp: 37.2 ??C (99 ??F) Temp src: Tympanic Pulse: (!) 121 Resp: 24 SpO2: 99 % BP: 129/88 BP Device: BP Machine Patient Position: Sitting [...] Pulmonary/Chest: Breath sounds normal. No respiratory distress. She has no wheezes. She has no rales. She exhibits no tenderness. Patient looking comfortable speaking in full sentences occasionally will have a small coughing spellnonproductive Abdominal: Soft. There is no tenderness. Musculoskeletal: [...] A medical screening exam was performed. Patient looks well with her symptoms improving I feel this is most likely an improving bronchitis she continues to smoke and I discussed the implications of this. No treatment at this time follow-up with PCP as needed ASSESSMENT AND PLAN Final diagnoses: Bronchitis ED Current Prescriptions None DISPOSITION: Discharged The patient's pain was managed to an adequate level weighing risk vs. benefit of further medications. Upon departure from the Emergency Department, the patient's pain was 0 on a zero to ten scale. Condition at departure from the Emergency Department: Good PCP: Filipe Mcduffie was available for supervision. 06/14/2016 12:41 No flowsheet data found. documented in this encounter Plan of Treatment Not on filedocumented as of this encounter Visit Diagnoses Diagnosis Bronchitis - Primary Bronchitis, not specified as acute or ch ronic documented in this encounter Care Teams Refresh Technician Relationship Specialty Start Date End Date Filipe Bose MD PCP - General 11/07/15 12/01/16 documented as of this encounter
--- OUTSIDE RECORDS SUMMARY | 2021-08-16 23:32 | XMS_ITS | Encounter Summary ---
:1990 Author Organization [facility] Address [address] [place] [address] Care Team Providers Name Role Phone Sana Muhammad MD Primary Care Provider Reason for Visit Reason Onset Date Comments Medication Questions 01/07/2017 Encounter Details Date Type Department Care Team Description 01/07/2017 Telephone [facility] Chiquita Paz RN Medi cation Questions Family Medicine [address] [address] Social History Tobacco Use Types [...] Tab by mouth 2 75 Tab 0 1 03/10/2016 02/15/2017 tabletIndications: times daily. Take 1 Paranoid schizophrenia mg BID, and 1 (HCC-CMS) (HCC) additional PRN Daily Max: 3 mg LORazepam (ATIVAN) 1 mg Take 1 Tab by mouth 2 75 Tab 0 1 03/09/2016 01/08/2017 tabletIndications: times daily. Take 1 Paranoid schizophrenia mg BID, and 1 (HCC-CMS) (HCC) additional PRN Daily Max: 2 mg documented in this encounter Miscellaneous Notes Telephone Encounter - Chiquita Paz RN - 01/08/2017 0956 EDT Spoke to pharmacy on new instructions on Ativan script per Dr. Muhammad. Need new script signed to show no prn, just 1mg BID, daily max of 2mg. Routed to PCP for signature. Addendum Note - Chiquita Paz RN - 01/08/2017 0955 EDT Addended by: CHIQUITA PAZ on: 01/08/2017 09:55 Modules accepted: Orders elephone Encounter - Lamar Pavon - 01/08/2017 0903 EDT Pharmacy is calling for clarification on lorazepam instructions: Sig: Take 1 Tab by mouth 2 times daily. Take 1 mg BID, and 1 additional PRN ??Daily Max: 2 mg Should be Max: 3 mg? Telephone Encounter - Chiquita Paz RN - 01/07/2017 1628 EDT Left message for patient to call clinic on home phone. Unable to reach patient on cell phone and unable to leave message. elephone Encounter - Klarissa Mesa - 01/07/2017 1605 EDT Patient stopped by to check the status of her prescriptions. Relayed that we were waiting on the provider. She said she's wait for a call tomorrow. elephone Encounter - Chiquita Paz RN - 01/07/2017 1102 EDT Patient walked into clinic with multiple questions about her medications. States she always takes lorazepam 1mg BID and may take one extra prn as needed. The last bottle she picked up on 12/30/16 had 15 tablets in it. Patient brought in all her pill bottles which I saw and counted. States she always gets 90 tablets. Upon looking at her chart she normally gets 75 lorazepam tablets. She also states herperphenazine is written incorrectly. She takes 2mg BID and 4mg prn. The orders state perphenazine 2mg daily and 4mg BID prn. Will follow up with provider on refills of lorazepam and wording of perphenazine scripts. Will call patient back by the end of the day with a plan. Patient verbalizes wilberti ng. No barriers to learning noted. The [place] Prescription Monitoring System query has been completed per the following requirement(s): Annual Verification, Replacement Prescription and patient states she needs more than is prescribed.Will route to PCP and call patient back with plan and clarification of medications. documented in this encounter Plan of Treatment Not on filedocumented as of this encounter Goals Goal Patient Goal Associated Recent Patient-Stated? 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[place], dependence Avnia syndrome documented as of this encounter Visit Diagnoses Diagnosis Paranoid schizophrenia (HCC-CMS) (HCC) - Primary Paranoid schizophrenia, unspecified cond ition documented in this encounter Discontinued Medications Medication Sig Discontinue Reason Start Date End Date LORazepam (ATIVAN) 1 mg Take 1 Tab by mouth Reorder 06/26/2016 01/07/2017 tabletIndications: 2 times daily. Take Paranoid schizophrenia 1 mg BID, and 1 (HCC-CMS) (HCC) additional PRN Daily Max: 2 mg LORazepam (ATIVAN) 1 mg Take 1 Tab by mouth Reorder 01/07/2017 01/08/2017 tabletIndications: 2 times daily. Take Paranoid schizophrenia 1 mg BID, and 1 (HCC-CMS) (HCC) additional PRN Daily Max: 2 mg documented as of this encounter Care Teams Retail Account Executive Relationship Specialty Start Date End Date Sana Muhammad MD PCP - General 12/02/16 08/05/20 documented as of this encounter
--- OUTSIDE RECORDS SUMMARY | 2021-08-16 23:32 | XMS_ITS | Encounter Summary ---
:1990 Author Organization [facility] Address [address] [place] [address] Care Team Providers Name Role Phone Sana Muhammad MD Primary Care Provider Reason for Visit Reason Comments Other Encounter Details Date Type Department Care Team Description 11/22/2017 Refill [facility] Family Sana Muhammad MD Other Medicine - [address] [place] [address] [place], [place] [id number] [phone] Social History Tobacco Use Types Packs/Day Years [...] Dispensed Refills Start Date End Date omeprazole (PRILOSEC) 20 take 1 capsule by 90 Cap 1 11/0603/21/2018 mg capsule mouth once daily documented in this encounter Miscellaneous Notes Telephone Encounter - Ernestine Polanco RN - 11/22/2017 1314 EDT Medication(s) Requested: Omeprazole 20 mg on 02/26/17 for 90 with 1 refill [facility] Is patient out of medication? Unknown Last Refill Date: See above Last Visit Date with Ordering Provider: 08/25/17 Next Non-Acute Visit Date Scheduled with Care Team: No. Prescription approved. Ernestine Polanco RN 11/22/2017 13:15 documented in this encounter Plan of Treatment Not on filedocumented as of this encounter Goals Goal Patient Goal Associated Recent Patient-Stated? 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[place], dependence Vania syndrome documented as of this encounter Visit Diagnoses Not on filedocumented in this encounter Discontinued Medications Medication Sig Discontinue Reason Start Date End Date omeprazole (PRILOSEC OTC) Take 1 Tab by mouth Reorder 02/27/20 17 11/22/2017 20 mg tablet daily. documented as of this encounter Care Teams Mentally Impaired Teacher Relationship Specialty Start Date End Date Sana Muhammad MD PCP - General 12/02/16 08/05/20 documented as of this encounter
--- OUTSIDE RECORDS SUMMARY | 2021-08-16 23:32 | XMS_ITS | Encounter Summary ---
:1990 Author Organization [facility] Address [address] [place] [address] Care Team Providers Name Role Phone Filipe Bose MD Primary Care Provider Sana Muhammad MD Primary Care Provider Jim Morales MD Primary Care Provider Reason for Visit Reason Onset Date Comments Medications Refill 10/29/2016 Encounter Details Date Type Department Care Team Description 10/29/2016 Refill [facility] Dyllan Bose MD Medications Refill Family [facility] [place] - [address] [place] [address] [place], [place] [id number] [phone] Social History Tobacco Use Types Packs/Day Years [...] take 1 tablet by 75 Tab 0 08/28/ 2017 12/02/2016 tablet mouth twice a day (MAY TAKE A 3RD TABLET IF NEEDED) documented in this encounter Miscellaneous Notes Telephone Encounter - Mita Johnson - 11/02/2016 1550 EDT Patient called and scheduled an appointment with Dr. Bose on 12/10/16. She states she needs her prescription now as she was at the ER over the weekend and got 2 days work. She had run out of her medication and was having tremors and high blood pressure. Telephone Encounter - Doug Rojo - 11/02/2016 1127 EDT Left message on machine to have patient call and schedule appt. elephone Encounter - Yasmany Moyer RN - 10/30/2016 0908 EDT Medication(s) Requested: Lorazepam 1 mg 75 with 0 refills [facility]acy[facility] Last Refill Date: 08/26/16 Last Visit Date: 06/26/16 Next Visit Date: Visit date not found Is patient out of medication? Unknown YASMANY MOYER RN 10/30/2016 9:08 elephone Encounter - Chiqui Rodriguez - 10/29/2016 0933 EDT Patient came in this morning and states that she only has two days of her medication left and she iswondering if it will be filled before her medication runs out. documented in this encounter Plan of Treatment Not on filedocumented as of this encounter Visit Diagnoses Not on filedocumented in this encounter Discontinued Medications Medication Sig Discontinue Reason Start Date End Date LORazepam (ATIVAN) 1 mg take 1 tablet by Reorder 08/26/2016 10/29/2016 tablet mouth twice a day MAY TAKE A 3RD TABLET IF NEEDED documented as of this encounter Additional Health Concerns Infection Onset Date Last Indicated Resolved Time COVID-19 03/07/2021 03/07/2021 03/27/2021 22:15 EST documented as of this encounter Care Teams Patrol Conductor Relationship Specialty Start Date End Date Filipe Bose MD PCP - General 11/07/15 12/01/16 Sana Muhammad MD PCP - General 12/02/16 08/05/20 Jim Morales MD PCP - General Family Medicine - Primary 08/06/[address] [place] [phone] documented as of this encounter
--- OUTSIDE RECORDS SUMMARY | 2021-08-16 23:32 | XMS_ITS | Encounter Summary ---
:1990 Author Organization [facility] Address [address] [place] [address] Care Team Providers Name Role Phone Sana Muhammad MD Primary Care Provider Reason for Visit Reason Onset Date Comments Appointment Related 05/31/2017 Encounter Details Date Type Department Care Team Description 05/31/2017 Telephone [facility] Sana Muhammad Ap pointment Related Family Medicine - [address] [address] [place], [place] [id number] [phone] Social History Tobacco Use Types Packs/Day Years [...] this encounter Miscellaneous Notes Telephone Encounter - AlexMita - 05/31/2017 1151 EDT Patient missed an appointment with Dr. Asif on 05/28/17 and is rescheduled to 06/01/[address] Mccord. documented in this encounter Plan of Treatment Not on filedocumented as of this encounter Goals Goal Patient Goal Associated Recent Patient-Stated? 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[place], dependence Vania syndrome documented as of this encounter Visit Diagnoses Not on filedocumented in this encounter Care Teams Insurance Plan Specialist Relationship Specialty Start Date End Date Sana Muhammad MD PCP - General 12/02/16 08/05/20 documented as of this encounter
--- OUTSIDE RECORDS SUMMARY | 2021-08-16 23:32 | XMS_ITS | Encounter Summary ---
:1990 Author Organization [facility] Address [address] [place] [address] Care Team Providers Name Role Phone Sana Muhammad MD Primary Care Provider Reason for Visit Reason Comments Other Encounter Details Date Type Department Care Team Description 12/28/2017 Refill [facility] Family Sana Muhammad MD Other Medicine - [address] [place] [address] [place], [place] [address] [phone] Social History Tobacco Use Types Packs/Day Years [...] Telephone Encounter - Ernestine Polanco, RN - 12/28/2017 1127 EDT Medication(s) Requested: Ativan on 09/27/17 for 60 with 2 refills Preferred [facility]acy: [facility] Is patient out of medication? Unknown Last Refill Date: See above Last Visit Date with Ordering Provider: 08/25/17 Next Non-Acute Visit Date Scheduled with Care Team: No. Ernestine Polanco RN 12/28/2017 11:28 documented in this encounter Plan of Treatment Not on filedocumented as of this encounter Goals Goal Patient Goal Associated Recent Patient-Stated? 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, dependence Vania syndrome documented as of this encounter Visit Diagnoses Diagnosis Paranoid schizophrenia ([facility]) ([facility]) - Primary Paranoid schizophrenia, unspecified cond ition documented in this encounter Discontinued Medications Medication Sig Discontinue Reason Start Date End Date LORazepam (ATIVAN) 1 mg take 1 tablet by Reorder 09/27/2017 12/28/2017 tabletIndications: mouth twice a day Paranoid schizophrenia ([facility]) ([facility]) documented as of this encounter Care Teams Communications Systems Engineer Relationship Specialty Start Date End Date Sana Muhammad MD PCP - General 12/02/16 08/05/20 documented as of this encounter
--- OUTSIDE RECORDS SUMMARY | 2021-08-16 23:32 | XMS_ITS | Encounter Summary ---
:1990 Author Organization [facility] Address [address] [place] [address] Care Team Providers Name Role Phone Sana Muhammad MD Primary Care Provider Reason for Visit Reason Comments Annual Exam Vaginal Bleeding 4 years since last menses, h ad son in 2012, was on Depo and now on Nexplanon and now is spottin g Encounter Details Date Type Department Care Team Description 06/10/2017 Office Visit [facility] Unknown, Prov MD alexey Encounter for preventative adult health care examination (Primary Dx); Family Medicine - Scarlet Villatoro MD [address] [place] [phone] Need for pneumococcal vaccination; Rigoberto Wilkinson MD [address] [place] [phone] Screening for hyperlipidemia; [address] [place] [address] 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; [place] [address] Obesity, morbid, BMI 40.0-49 .9 ([facility]); [phone] Encounter for s urveillance of implantable subdermal contraceptive; Tobacco depende nce syndrome Social History Tobacco Use Types Packs/Day Years [...] Sign Reading Time Taken Comments Blood Pressure 118/77 06/10/2017 1325 EDT Pulse 68 06/10/2017 1325 EDT Temperature 36.7 ??C (98.1 ??F) 06/10/2017 1325 EDT Respiratory Rate - - Oxygen Saturation - - Inhaled Oxygen Concentration - - Weight 111.1 kg (245 lb) 06/10/2017 1325 EDT Height 163.2 cm (5' 4.25) 06/10/2017 1325 EDT Body Mass Index 41.73 06/10/2017 1325 EDT documented in this encounter Functional Status [...] as of this encounter Discharge Diagnoses Diagnosis E66.01 Morbid (severe) obesity due to ex cess calories-E66.01[ICD-10-CM] Z13.220 Encounter for screening for lipo id disorders-Z13.220[ICD-10-CM] documented in this encounter Discharge Disposition Disposition Code Departure Means Destination Auto Discharge documented in this encounter Progress Notes Arabella Odom MD - 06/10/2017 1330 EDT Attestation Statement: I saw and examined the patient and discussed the findings and plans with the resident/fellow. Arabella Odom MD 06/11/2017 9:59 Diana Palencia - 06/10/2017 1330 EDT Venipuncture performed for Lipid, A1C, CMP. Collected in right arm without incident. Per orders of Faye Odom Diagnosis of Z13.220, Z79.899, E66.01 I was supervised by Faye Odom who was present and immediately available in the office suite. Diana Palencia 06/10/2017 15:19 Rigoberto Daly MD - 06/10/2017 5480 EDT Female Well Adult Preventative Care Visit Patient ID: Mary Grace Harris is an 26 y.o. female. Subjective: HISTORY OF PRESENT ILLNESS: Concerned she might be . Spotting with nexplanon. Having spotting for 3 days. Small amount of blood. Thinks she looks . Wants to remove the nexplanon. Hasn't had a period since her son was born. Nexplanon was inserted 3 months ago (per chart review inserted 08/13/2016). She has taken several home tests. Also concerned she may have a hernia. Sexually active with cecelia. Not using condoms. Denies. No dysuria. No vaginal discharge. Yeast infection several months ago. Has made dietary changes with hopes of losing weight. Eating more protein than carbs. Working on portion control. Quit smoking for 2 months. Used nicotine gum. [place] weird, psychotic and aggrevated when she quit. Not interested in quitting right now. Lives [facility]. Lives with Steve rai and Jose, son. Not working. Continues to have visual and auditory hallucinations. Describes the auditory hallucinations as voices, people praying. They do not speak to her or tell her what to do. Behavioral Health Screen Summary Interpretation PHQ-2: 3 PHQ-9: 14 Mild Depression Symptoms VLADISLAV-2: 6 VLADISLAV-7: 16 Severe Anxiety SASQ: Never AUDIT-10: SSASQ: Never DAST-10: . Patient Active Problem List Diagnosis ??? Depression ??? Celiac disease ??? Anxiety ??? Paranoid schizophrenia (HCC-CMS) ??? Chronic pain syndrome ??? Supervision of normal first ??? Tobacco dependence syndrome ??? Schizophrenia, paranoid (HCC-CMS) Past Medical History: Diagnosis Date ??? Asthma [...] Used ??? Alcohol use No Comment: occ Family History Problem Relation Age of Onset ??? Schizophrenia Mother ??? Diabetes Maternal Grandfather ??? Bipolar Disorder Other uncle ??? No Known Son Allergies Allergen Reactions ??? Gluten Protein ??? Haldol [Haloperidol Lactate] paralysis ??? Paxil [Paroxetine Hcl] Nausea And Vomiting Current Outpatient Prescriptions: albuterol 90 mcg/actuation inhaler benztropine (COGENTIN) 2 mg tablet cyclobenzaprine (FLEXERIL) 10 mg tablet [START ON 07/20/2017] LORazepam (ATIVAN) 1 mg tablet [START ON 06/18/2017] LORazepam (ATIVAN) 1 mg tablet LORazepam (ATIVAN) 1 mg tablet omeprazole (PRILOSEC OTC) 20 mg tablet perphenazine (TRILAFON) 2 mg tablet perphenazine (TRILAFON) 4 mg tablet sertraline (ZOLOFT) 100 mg tablet UNABLE TO FIND ziprasidone (GEODON) 60 mg capsule ziprasidone (GEODON) 80 mg capsule No current facility-administered medications for this visit. Review of Systems Constitutional: Positive for weight loss. Negative for chills, fever and malaise/fatigue. Respiratory: Negative for cough and shortness of breath. Cardiovascular: Negative for chest pain and palpitations. Gastrointestinal: Negative for blood in stool and melena. Skin: Negative for rash. Neurological: Negative for headaches. Psychiatric/Behavioral: Positive for hallucinations. Negative for suicidal ideas. The patient is nervous/anxious. Objective: BP 118/77 (BP Cuff Location: Right arm, Patient Position: Sitting, BP Cuff Sizes: Adult, large) Comment (BP Cuff Sizes): Dinamap Pulse 68 Temp 36.7 ??C (98.1 ??F) (Tympanic) Ht 163.2 cm (64.25) Wt (!) 111.1 kg (245 lb) BMI 41.73 kg/m2 Body mass index is 41.73 kg/(m^2). Physical Exam Constitutional: She is oriented to person, place, and time. bmi 41. Heavy makeup. HENT: Right Ear: Tympanic membrane normal. Left Ear: Tympanic membrane normal. Mouth/Throat: Mucous membranes are moist. Eyes: Conjunctivae are normal. Cardiovascular: Normal rate and regular rhythm. Exam reveals no gallop and no friction rub. No murmur heard. Pulmonary/Chest: Effort normal. She has no wheezes. She has no rhonchi. She has no rales. Abdominal: Soft. Bowel sounds are normal. She exhibits no distension and no mass. There is no tenderness. There is no rebound and no guarding. obese Lymphadenopathy: She has no cervical adenopathy. Neurological: She is alert and oriented to person, place, and time. Vitals reviewed. Assessment: Breast cancer screen: Screening not indicated: no risk factors. Discussed limitations and risks of mammography, ultrasound, clinical breast exam, self breast exam (USPTF recommends against) Cervical cancer screen: Screening not indicated: Last pap 2015. Normal. No HPV testing. Repeat next year. Colon cancer screen: Screening not indicated Skin cancer screen: We reviewed the characteristics of concerning skin lesions. Patient does not report any concerning lesions. Gonorrhea/Chlamydia Screen (<24 yr or high risk): Screening not indicated: Declines testing.. Eye care: Last eye exam was 3 years ago. Counseled. Dental care: Last dental visit was 1-2 years ago. Counseled. Scheduled for cleaning in November at [facility]. Hearing: patient does not have concerns. Lipid screen: monitoring 2/2 antipsychotics. Counseled. DM screen: indicated: has risk factors (incl. age). Counseled. HTN screen: BP is normal today. Counseled. Depression symptoms: depressed mood and anhedonia EtOH use: reports that she does not drink alcohol.. Counseled. Tobacco use: reports that she has been smoking. She has a 5.00 pack-year smoking history. She has never used smokeless tobacco.. Counseled. Substance abuse: reports that she uses illicit drugs, including Marijuana.. Counseled. Weight: morbidly obese (BMI 40+). Counseled. Exercise: rarely. Counseled. Injury prevention: Seatbelt use: always. Helmet use: n/a. Gun safety (trigger locks, gun cabinets, separate ammo storage) was discussed. No guns. Immunizations: Counseled about: pneumococcal (1 dose >65 yr; or <65 if chronic dz) Immunization History Administered Date(s) Administered ? ? Influenza Vaccine =>3yo Split Preservative Free IM 03/22/2012 ??? Influenza Vaccine Quad Preservative Free 0.5 ml IM 01/17/2016 ? ? Pneumococcal Polysaccharide (PPSV23) Vaccine (PNEUMOVAX-23) =>1YO SQ/IM 06/10/2017 ? ? Tdap Vaccine =>7YO IM 05/18/2012 Plan: Mary Grace was seen today for annual exam and vaginal bleeding. Diagnoses and all orders for this visit: Encounter for preventative adult health care examination: Anticipatory guidance given. Preventive measures reviewed, and appropriate screening recommendations made. AD completed today. 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 No SI, HI. Has not had full panel of recommended labs to monitor for metabolic side effects of antipsychotics. - Lipid Profile (Includes Cholesterol, Triglycerides, HDL, LDL) - Comprehensive Metabolic Panel (CMP) - Hemoglobin A1c Obesity, morbid, BMI 40.0-49.9 ([facility]): Discussed importance of weight loss. Recommended increasing exercise and making adjustments to dietary habits. Offered CHT assistance which she declined. - Hemoglobin A1c Encounter for surveillance of implantable subdermal contraceptive: Nexplanon in place. Sexually active with one male partner for several years. Declines STI testing. Abdomen is obese, but I have no reason to suspect nexplanon is not working and she is , especially given that she has lost weight since the last visit. It was inserted 08/2016. Tobacco dependence: Precontemplative. Need for pneumococcal vaccination - Pneumococcal polysaccharide (PPSV23) vaccine (PNEUMOVAX-23) 23-valent greater than or equal to 2yosubcutaneous/IM Return in about 10 weeks (around 08/19/2017) for with sikule. The patient was discussed and seen with Dr. Odom at the time of the visit. Ladarius Mccord MD Family Medicine, PGY-3 [phone] References: USPTF Level A & B Recommendations List USPTF Adult Recommendations USPTF Breast Cancer Screening USPTF Cervical Cancer Screening USPTF Colorectal Cancer Screening [facility] Adult Immunizations [address] [facility] 7-18 Years Immunizations 2010 AAFP Clinical Recommendations documented in this encounter Plan of Treatment Not on filedocumented as of this encounter Goals Goal Patient Goal Associated Recent Patient-Stated? 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[place], dependence Vnaia syndrome documented as of this encounter Procedures Procedure Name Priority Date/Time Associated Diagnosis Comme nts LIPID PROFILE Routine 06/10/2017 14:40 Screening for Results f or this (INCLUDES EDT hyperlipidemia procedure are in CHOLESTEROL, senior living current use the re sults TRIGLYCERIDES, HDL, of antipsychotic sect ion. LDL) medication COMPREHENSIVE Routine 06/10/2017 14:40 senior living current use R esults for this METABOLIC PANEL (CMP) EDT of antipsychotic pr ocedure are in medication the results section. documented in this encounter Results (ABNORMAL) COMPREHENSIVE METABOLIC PANEL (CMP) (06/10/2017 14:40 EDT) Potassium 5.0 3.5 - 5.0 [facility] mEq/L [facility] Sodium 140 136 - 145 [facility] mEq/L [facility] Chloride 100 96 - 110 [facility] mEq/L [facility] CO2 28 22 - 32 mEq/L [facility] Total Alkaline 73 38 - 126 [facility] Phosphatase [facility] Bilirubin, Total <0.5 <1.4 mg/dl [facility] AST 28 15 - 46 U/L [facility] ALT 55 (H) <53 U/L [facility] Albumin 4.6 3.4 - 4.9 [facility] g/dl [facility] Total Protein 7.4 6.3 - 8.2 [facility] g/dl [facility] Creatinine 0.72 0.52 - 1.04 [facility] mg/dl [facility] GFR, Calculated 115 >60 [facility] Comment: ml/min/1.73m2 [facility] eGFR calculated using CKD-EPI equation for SERVICES non Americans. Multiply eGFR by 1.16 for Americans. BUN 11 10 - 26 mg/dl [facility] Calcium 10.2 8.5 - 10.5 [facility] mg/dl [facility] Calculated Calcium 9.7 8.5 - 10.5 [facility] mg/dl [facility] Glucose, Serum 78 70 - 100 [facility] mg/dl [facility] Fasting? Unknown [facility] Specimen Blood specimen (specimen) - Blood Performing Organization Address [facility] e Number [facility] [address] [place] [address] SERVICES LIPID PROFILE (INCLUDES CHOLESTEROL, TRIGLYCERIDES, HDL, LDL) (06/10/2017 14:40 EDT) Cholesterol 153 mg/dl [facility] Comment: LABORATORY Desirable:<200 SERVICES Borderline High:200-239 High:>bh=354 Triglycerides 85 mg/dl [facility] Comment: LABORATORY Normal:<150 SERVICES Borderline High:150-199 High:200-499 Very High:>pq=498 HDL 45 mg/dl [facility] Comment: LABORATORY Low:<40 SERVICES Normal:40-60 Desirable: >60 LDL, Calculated 91 mg/dl [facility] Comment: LABORATORY Optimal:<100 SERVICES Near Optimal:100-129 Borderline High:130-159 High:160-189 Very High:>mc=447 Chol/HDL Ratio 3.4 [facility] Fasting? Unknown [facility] Non HDL Cholesterol 108 mg/dl [facility] Comment: LABORATORY Desirable:<130 SERVICES Borderline:130-159 High: 160-189 Very High: >ex=435 Specimen Blood specimen (specimen) - Blood Performing Organization Address [facility] Phon e Number [facility] [address] [place] [phone] SERVICES documented in this encounter Visit Diagnoses Diagnosis Encounter for preventative adult health care examination - Primary Need for pneumococcal vaccination Need for prophylactic vaccination agains t streptococcus pneumoniae (pneumococcus) Screening for hyperlipidemia Screening for lipoid disorders senior living current use of antipsychotic m edication Obesity, morbid, BMI 40.0-49.9 (HCC) Morbid obesity Encounter for surveillance of implantabl e subdermal contraceptive Tobacco dependence syndrome Tobacco use disorder documented in this encounter Discontinued Medications Medication Sig Discontinue Reason Start Date End Date albendazole (ALBENZA) Take 2 Tabs by mouth Therapy completed 201606/10/2017 200 mg tablet daily. miconazole (MICONAZOLE Place 1 Applicator 02/26/2017 06/10/2017 7) 2 % vaginal cream vaginally at bedtime. X 3 days nicotine polacrilex Chew one piece of gum 02/26/2017 06/10/2017 (NICORETTE) 4 mg gum every hour as needed. Do not exceed 24 pieces per day. oseltamivir (TAMIFLU) Take 1 Cap by mouth 2 05/21/2017 06/10/2017 75 mg capsule times daily. documented as of this encounter Orders Immunization/Injection Count Last Ordered Date First O rdered Date PNEUMOCOCCAL POLYSACCHARIDE (PPSV23) 1 06/10/2017 VACCINE (PNEUMOVAX-23) 23-VALENT =>2YO SQ/IM documented in this encounter Care Teams Land Inspector Relationship Specialty Start Date End Date Sana Muhammad MD PCP - General 12/02/16 08/05/20 documented as of this encounter
--- OUTSIDE RECORDS SUMMARY | 2021-08-16 23:32 | XMS_ITS | Encounter Summary ---
:1990 Author Organization [facility] Address [address] [place] [address] Care Team Providers Name Role Phone Filipe Bose MD Primary Care Provider Reason for Visit Reason Onset Date Comments Appointment Related 03/31/2016 Encounter Details Date Type Department Care Team Description 03/31/[address] [facility] Dyllan Bose MD Appointment Related Family Medicine - [address] [place] [phone] [place] [address] [place] [address] [phone] Social History Tobacco Use Types Packs/Day Years [...] a physical, mental, or emotional condition, No 03/25/2016 does this person have difficulty doing errands alone such as visiting a doctor's office or shopping? Cognitive Status Response Date of Assessment Because of a physical, mental, or emotional condition, Yes 03/25/2016 does this person have serious difficulty concentrating, remembering, or making decisions? documented as of this encounter Miscellaneous Notes Telephone Encounter - Mita Johnson - 03/31/2016 1034 EST Please review and discuss with your provider at weekly meeting. Per Psychiatry: Dear Arely Hernandez: The referral that you have requested for Mary Grace Harris has been denied for the following reason: Other Comments: 03/30/16, got referral back from Dr. Borrego. She is going to decline this referral due to the fact that the patient is looking for medication management and doesn't need consultation, currentmedications are stable.. Sincerely, Liz Bradley documented in this encounter Plan of Treatment Not on filedocumented as of this encounter Visit Diagnoses Not on filedocumented in this encounter Care Teams Hydraulic Lift Operator Relationship Specialty Start Date End Date Filipe Bose MD PCP - General 11/07/15 12/01/16 documented as of this encounter
--- OUTSIDE RECORDS SUMMARY | 2021-08-16 23:32 | XMS_ITS | Encounter Summary ---
:[address] [facility] Address [address] [place] [address] Care Team Providers Name Role Phone Sana Muhammad MD Primary Care Provider Reason for Visit Reason Onset Date Comments Medication Problem 01/13/2017 Encounter Details Date Type Department Care Team Description 01/13/2017 Telephone [facility] Sana Muhammad, Ar dication Problem Family Medicine - [facility] [address] [facility] [address] [place] [address] [place] [phone] (Wo rk) Social History Tobacco Use Types [...] Encounter - Mary Grace Mckeon RN - 01/13/2017 1611 EST Patient's medications have been refills. Refilled omeprazole and trilafon 2mg and 4 mg. Patient was waiting in waiting room and updated on status. elephone Encounter - Klarissa Mesa - 01/13/2017 1526 EST Patient is stopping by asking when her refills are going to be filled. She is running out of medications. And she needs an additional refill. Medication(s) Requested: Prilosec 20 mg Preferred Pharmacy: [facility] Is patient out of medication? Yes Last Refill Date: 12/02/16 Last Visit Date with Ordering Provider: Jb Next Non-Acute Visit Date Scheduled with Care Team: No. Klarissa Mesa 01/13/2017 15:41 documented in this encounter Plan of Treatment Not on filedocumented as of this encounter Visit Diagnoses Not on filedocumented in this encounter Care Teams Warehouse Man Relationship Specialty Start Date End Date Sana Muhammad MD PCP - General 12/02/16 08/05/20 documented as of this encounter
--- OUTSIDE RECORDS SUMMARY | 2021-08-16 23:32 | XMS_ITS | Encounter Summary ---
:1990 Author Organization [facility] Address [address] [place] [address] Care Team Providers Name Role Phone Sana Muhammad MD Primary Care Provider Reason for Visit Reason Onset Date Comments Pharmacy 12/02/2016 Encounter Details Date Type Department Care Team Description 12/02/2016 Telephone [facility] Sana Muhammad MD Pharmacy Medicine - [address] [phone] [place], [place] [id number] [phone] Social History Tobacco Use Types Packs/Day Years [...] Notes Telephone Encounter - Celine Kohler - 12/02/2016 1632 EDT [facility] on the Ziprasidone 20 mg, is this in addition to the 60 and 80 mg? Also needs more specific directions. documented in this encounter Plan of Treatment Not on filedocumented as of this encounter Visit Diagnoses Not on filedocumented in this encounter Care Teams Pinmaker Relationship Specialty Start Date End Date Sana Muhammad MD PCP - General 12/02/16 08/05/20 documented as of this encounter
--- OUTSIDE RECORDS SUMMARY | 2021-08-16 23:32 | XMS_ITS | Encounter Summary ---
:1990 Author Organization [facility] Address [address] [place] [address] Care Team Providers Name Role Phone Sana Muhammad MD Primary Care Provider Reason for Visit Reason Onset Date Comments Paperwork request 05/24/2017 Encounter Details Date Type Department Care Team Description 05/24/2017 Telephone [facility] Mayela Muhammad MD Paperwork request Family Medicine [facility] [address] [facility] [address] [place] [address], [place] [address] [phone] Social History Tobacco Use Types Packs/Day Years [...] this encounter Miscellaneous Notes Telephone Encounter - Ursula Leong - 06/04/2017 1618 EDT Paperwork completed and given to Mary Grace Leong 06/04/2017 16:18 elephone Encounter - Ursula Leong - 05/25/2017 1215 EDT Paperwork given to Dr. Muhammad today Ursula Leong 05/25/2017 12:16 elephone Encounter - Klarissa Mesa - 05/24/2017 1143 EDT Date paperwork is dropped off 05/24 Description of paperwork being dropped off [place] Medical Report Given to Trinafor completion. Date paperwork is needed by MARIUM Should we mail, fax or will the patient seed cone picker completed paperwork ? P/u [phone] Special Instructions: (date) forms completed and faxed, mailed or put at front for seed cone picker. documented in this encounter Plan of Treatment Not on filedocumented as of this encounter Goals Goal Patient Goal Associated Recent Patient-Stated? 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[place], dependence Vania syndrome documented as of this encounter Visit Diagnoses Not on filedocumented in this encounter Care Teams Lithographic Press Feeder Relationship Specialty Start Date End Date Sana Muhammad MD PCP - General 12/02/16 08/05/20 documented as of this encounter
--- OUTSIDE RECORDS SUMMARY | 2021-08-16 23:32 | XMS_ITS | Encounter Summary ---
:1990 Author Organization [facility] Address [address] [place] [address] Care Team Providers Name Role Phone Filipe Bose MD Primary Care Provider Reason for Visit Reason Onset Date Comments Appointment Related 11/25/2016 Encounter Details Date Type Department Care Team Description 11/25/2016 Telephone [facility] Dyllan Bose MD Appointment Related Family Medicine - [address] [place] [phone] [place] [address] [phone] Social History Tobacco Use Types Packs/Day Years [...] Notes Telephone Encounter - Doug Rojo - 11/27/2016 1031 EDT Appt rescheduled elephone Encounter - Doug Rojo - 11/25/2016 1358 EDT Left message on machine to have patient call and reschedule appt. documented in this encounter Plan of Treatment Not on filedocumented as of this encounter Visit Diagnoses Not on filedocumented in this encounter Care Teams Licensed Psychiatric Technician Relationship Specialty Start Date End Date Filipe Bose MD PCP - General 11/07/15 12/01/16 documented as of this encounter
--- OUTSIDE RECORDS SUMMARY | 2021-08-16 23:32 | XMS_ITS | Encounter Summary ---
:1990 Author Organization [facility] Address [address] [place] [address] Care Team Providers Name Role Phone Sana Muhammad MD Primary Care Provider Reason for Visit Reason Comments MEDICATION CHECK needs script for Trilafon an d Lorazepam Emesis still vomiting every mornin g even on Marijuana friend takes Zofran and wonders if can get scrip t for that Encounter Details Date Type Department Care Team Description 12/02/2016 Office Visit [facility] Sana Muhammad Tobac co dependence syndrome (Primary Dx); Family Medicine - MD Ramonita Paranoid schizophrenia ([facility] [address] [address] [facility] Chronic pain syndrome; [address] [place], [place] Schizophrenia, paranoid ([facility]) [place] [id number] [phone] Social History Tobacco Use Types Packs/Day Years Used Date Current Every Day Smoker 0.5 10 Smokeless Tobacco: Never Used Alcohol Use Standard Drinks/Week Comments No 0 (1 standard drink = 0.6 oz pure alcoho l) occ Sex Assigned at Date Recorded Not on file documented as of this encounter Last Filed Vital Signs Vital Sign Reading Time Taken Comments Blood Pressure 122/80 12/02/2016 1426 EDT Pulse 84 12/02/2016 1426 EDT Temperature - - Respiratory Rate - - Oxygen Saturation - - Inhaled Oxygen Concentration - - Weight 118.5 kg (261 lb 3.2 oz) 12/02/2016 1426 EDT Height 161.9 cm (5' 3.75) 12/02/2016 1426 EDT Body Mass Index 45.19 12/02/2016 1426 EDT documented in this encounter Functional Status [...] Discharge Diagnoses Diagnosis F20.0 Paranoid schizophrenia-F20.0[ICD-1 0-CM] documented in this encounter Ordered Prescriptions Prescription Sig Dispensed Refills Start Date End Date omeprazole (PRILOSEC OTC) Take 1 Tab by mouth 28 Tab 1 0 12/02/2016 01/13/2017 20 mg tablet daily. nicotine polacrilex Chew one piece of 50 Each 1 7 02/03/2017 (NICORETTE) 4 mg gum gum every hour as needed. Do not exceed 24 pieces per day. ziprasidone (GEODON) 20 Take 1 Cap by mouth 60 Cap 2 12/02/2016 mg capsuleIndications: as needed for Other. Paranoid schizophrenia (HCC-CMS) (HCC) perphenazine (TRILAFON) 4 Take 1 Tab by mouth 30 Tab 5 0 12/02/2016 01/11/2017 mg tabletIndications: as needed (can take Paranoid schizophrenia 1-2 tabs PRN in (HCC-CMS) (HCC) addition to her 2 mg (maximum 10 mg dose)). LORazepam (ATIVAN) 1 mg Take 1 Tab by mouth 75 Tab 0 01/07/2017 tablet 2 times daily. Daily Max: 2 mg albuterol 90 Inhale 2 Puffs as 3 Inhaler 3 12/02/201607/14 mcg/actuation directed every 4 inhalerIndications: hours. inhale 2 puffs before exercise documented in this encounter Discharge Disposition Disposition Code Departure Means Destination Auto Discharge documented in this encounter Progress Notes Alysha lAvarez LPN - 12/02/2016 1430 EDT Venipuncture performed for CBC, BMP Per orders of Dr. Sikul Diagnosis of F20.0 Sana Rios MD - 12/02/2016 1430 EDT PROGRESS NOTE Chief Complaint Patient presents with ??? MEDICATION CHECK needs script for Trilafon and Lorazepam ??? Emesis still vomiting every morning even on Marijuana friend takes Zofran and wonders if can get script for that HPI: Mary Grace, 26 y.o. is here for follow-up on her medications. Patient reports she has a history of depression and paranoid schizophrenia. She states she was diagnosed with the schizophrenia after anacute episode when she was in high school. She states she has been on these medications and is been stable for a long time. She she's had periods where she's come off her thoracic p.m. and had all symptoms as well as worsening of her schizophrenia. She also states she takes marijuana for chronic neck pain. Currently she pushes a good support system at home with her partner and 4-year-old son. She denies any chest pain, dictation shortness of breath fevers or chills. Reports that she was recently diagnosed with bronchitis but is feeling much better at this time. Patient reports every morning she vomits she states that she uses marijuana 3 times a day G denies any changes if she takes marijuana prior or after vomiting. Reports that she has been seen by gastroenterology when she was a child and placed on a PPI and this helped her at that time. She also reports that she is a friend who recommended trying Zofran for nausea and vomiting. She denies any blood in her vomit. Reports that she started has noticed changes in her enamel of her teeth. ROS: 10 systems reviewed and negative except above Patient Active Problem List Diagnosis ??? Depression ??? Celiac disease ??? Anxiety ??? Paranoid schizophrenia ??? Chronic pain syndrome ??? Supervision of normal first ??? Tobacco dependence syndrome Past Surgical History: Procedure Laterality Date ??? [...] 2 times daily. Daily Max: 2 mg 75 Tab 0 ??? LORazepam (ATIVAN) 1 mg tablet Take 1 Tab by mouth 2 times daily. Take 1 mg BID, and 1 additional PRN Daily Max: 2 mg 75 Tab 0 ??? nicotine polacrilex (NICORETTE) 4 mg gum Chew one piece of gum every hour as needed. Do not exceed 24 pieces per day. 50 Each 1 ??? omeprazole (PRILOSEC OTC) 20 mg tablet Take 1 Tab by mouth daily. 28 Tab 1 ??? perphenazine (TRILAFON) 2 mg [...] Name: Nexplanon implanted 08/13/2016 ??? ziprasidone (GEODON) 20 mg capsule Take 1 Cap by mouth as needed for Other. 60 Cap 2 ??? ziprasidone (GEODON) 60 mg capsule Take 2 Caps by mouth at bedtime. 60 Each 5 ??? ziprasidone (GEODON) 80 mg capsule Take 1 Cap by mouth daily. 30 Each 5 No current facility-administered medications for this visit. Allergies Allergen Reactions ??? Gluten Protein ??? Haldol [Haloperidol Lactate] paralysis ??? Paxil [Paroxetine Hcl] Nausea And Vomiting PE: BP 122/80 (BP Cuff Location: Right arm, Patient Position: Sitting, BP Cuff Sizes: Adult, large) Pulse 84 Ht 161.9 cm (63.75) Wt (!) 118.5 kg (261 lb 3.2 oz) BMI 45.19 kg/m2 General NAD alert and ??3 Mood: reports normal affect is appropriate. She makes eye contact answers questions appropriately not flat. HEENT: head normocephalic eyes EOMI sclera normal hearing grossly intact. Mouth: Discoloration of her teeth with decreased enamel on her front incisors. With brownish discoloration Respiratory: Clear auscultation effort bilaterally Cardiovascular: S1-S2 no murmurs rubs or gallops Skin: intact no signs of infection Extremities: she is full range of motion in her upper and lower extremities Assessment: 26-year-old female who comes in for medication refill for paranoid schizophrenia and chronic pain Plan: Paranoid schizophrenia - Continue on Trilafon 6 mg by mouth daily. Lorazepam 1 mg twice a day benztropine 2 mg daily and Geodon 160 mg daily Chronic pain - she'll be continued on her daily marijuana for her chronic pain. Will further addressat Nausea, Vomiting - not related to purge behaviors in bulimia. Question if it could be related to GERD versus chronic marijuana use causing hyperemesis. Do think that patient could benefit from a PPI. We'll start her on omeprazole 20 mg by mouth daily if not improving will increase to 2 tablets per dayif this is not improving then we'll have her sent for EGD. Smoking cessation. Patient reports desire to quit she is pre-contemplative. She would like to try Nicorette gum again she's tried this in the past. Sana Muhammad MD documented in this encounter Plan of Treatment Not on filedocumented as of this encounter Procedures Procedure Name Priority Date/Time Associated Diagnosis Comme nts COMPLETE BLOOD Routine 12/02/2016 15:20 Paranoid schizophrenia Results for this COUNT EDT ([facility]) procedure are i n the results section. BASIC METABOLIC Routine 12/02/2016 15:20 Paranoid schizophreni a Results for this PANEL (BMP) EDT ([facility] procedure are i n the results section. documented in this encounter Results (ABNORMAL) HEMAGRAM (12/02/2016 15:20 EDT) Pathologist Sig nature WBC 15.01 (H) 4.0 - 12.4 K/cmm [facility] RBC 5.44 (H) 3.86 - 5.04 M/cmm [facility] Hemoglobin 15.7 (H) 11.6 - 15.2 gm/dl [facility] HCT 44.8 (H) 34.9 - 44.4 % [facility] MCV 82 81 - 98 fl [facility] MCH 28.9 26.7 - 33.3 pg [facility] MCHC 35.0 32.1 - 35.9 gm/dl [facility] RDW-CV 13.1 <14.7 % [facility] RDW-SD 38.8 <50.4 fl [facility] PLT 325 141 - 377 K/cmm [facility] MPV 10.2 9.5 - 12.7 fl [facility] Specimen Blood specimen (specimen) - Blood Performing Organization Address City/State/ZIP Code Phon e Number [facility] [address] [place] [address] SERVICES (ABNORMAL) BASIC METABOLIC PANEL (12/02/2016 15:20 EDT) Sodium 139Comment: 136 - 145 [facility] Moderate hemolysis mEq/L LABORATORY SERVICES Potassium 5.1 (H) 3.5 - 5.0 [facility] Comment: mEq/L LABORATORY Moderate hemolysis SERVICES Hemolysis may elevate potassium result. Chloride 103Comment: 96 - 110 [facility] Moderate hemolysis mEq/L LABORATORY SERVICES CO2 21 (L)Comment: 22 - 32 mEq/L [facility] Moderate hemolysis LABORATORY SERVICES BUN 8 (L) 10 - 26 mg/dl [facility] Comment: LABORATORY Moderate hemolysis SERVICES Results may be affected due to hemolysis. Creatinine 0.70Comment: 0.52 - 1.04 [facility] Moderate hemolysis mg/dl LABORATORY SERVICES GFR, Calculated 119 >60 [facility] Comment: ml/min/1.73m2 LABORATORY eGFR calculated using CKD-EPI equation for SERVICES non Americans. Multiply eGFR by 1.16 for Americans. Calcium 9.6Comment: 8.5 - 10.5 [facility] Moderate hemolysis mg/dl LABORATORY SERVICES Calculated Calcium 8.9 8.5 - 10.5 [facility] Comment: mg/dl LABORATORY Moderate hemolysis SERVICES Results may be affected due to hemolysis. Glucose, Serum 81 70 - 100 [facility] Comment: mg/dl LABORATORY Moderate hemolysis SERVICES Results may be affected due to hemolysis. Fasting? Unknown [facility] Specimen Blood specimen (specimen) - Blood Performing Organization Address City/State/ZIP Code Phon e Number [facility] [address] [place] [address] SERVICES documented in this encounter Visit Diagnoses Diagnosis Tobacco dependence syndrome - Primary Tobacco use disorder Paranoid schizophrenia ([facility]) ([facility]) Paranoid schizophrenia, unspecified cond ition Chronic pain syndrome Schizophrenia, paranoid ([facility]) ([facility]) Paranoid schizophrenia, unspecified cond ition documented in this encounter Discontinued Medications Medication Sig Discontinue Reason Start Date End Date albuterol 90 Inhale 2 Puffs as Reorder 01/04/2016 12/02/2016 mcg/actuation directed every 4 inhalerIndications: hours. inhale 2 puffs before exercise LORazepam (ATIVAN) 1 mg take 1 tablet by Reorder 11/02/2016 12/02/2016 tablet mouth twice a day (MAY TAKE A 3RD TABLET IF NEEDED) perphenazine (TRILAFON) 4 Take 1 Tab by mouth Reorder 03/25/19 17 12/02/2016 mg tabletIndications: as needed (can take Paranoid schizophrenia 1-2 tabs PRN in ([facility]) ([facility]) addition to her 2 mg (maximum 10 mg dose)). ziprasidone (GEODON) 20 Take 1 Cap by mouth Reorder 06/26/2016 12/02/2016 mg capsuleIndications: as needed for Paranoid schizophrenia Other. ([facility]) ([facility]) documented as of this encounter Historical Medications This list may reflect changes made after this encounter. Medication Sig Dispensed Refills Start Date End Date UNABLE TO FIND Med Name: Nexplanon implanted 0 11/14/2018 08/13/2016 added in this encounter Care Teams Road Crew Member Relationship Specialty Start Date End Date Sana Muhammad MD PCP - General 12/02/16 08/05/20 documented as of this encounter
--- OUTSIDE RECORDS SUMMARY | 2021-08-16 23:32 | XMS_ITS | Encounter Summary ---
:1990 Author Organization [facility] Address [address] [place] [address] Care Team Providers Name Role Phone Filipe Bose MD Primary Care Provider Sana Muhammad MD Primary Care Provider Jim Morales MD Primary Care Provider Reason for Visit Reason Comments Other Encounter Details Date Type Department Care Team Description 11/25/2016 Refill [facility] Family Moon Bose MD Other Medicine - [address] [address] [place], [place] [id number] [phone] Social History Tobacco Use Types Packs/Day Years [...] take 2 tablets by 360 Tab 0 11/0702/26/2017 mg tabletIndications: mouth twice a day Paranoid schizophrenia (HCC-CMS) (HCC) documented in this encounter Miscellaneous Notes Telephone Encounter - Javan Unger MD - 11/25/2016 1524 EDT Benztropine refilled elephone Encounter - Yasmany Moyer RN - 11/25/2016 1435 EDT Medication(s) Requested: Benztropine 2 mg 360 with 0 refills Pharmacy: [facility] Last Refill Date: 08/27/16 Last Visit Date: 06/26/16 Next Visit Date: unknown Is patient out of medication? Unknown YASMANY MOYER RN 11/25/2016 14:39 documented in this encounter Plan of Treatment Not on filedocumented as of this encounter Visit Diagnoses Diagnosis Paranoid schizophrenia (HCC-CMS) (HCC) Paranoid schizophrenia, unspecified cond ition documented in this encounter Discontinued Medications Medication Sig Discontinue Reason Start Date End Date benztropine (COGENTIN) 2 take 2 tablets by Reorder 08/27/2016 11/25/2016 mg tabletIndications: mouth twice a day Paranoid schizophrenia (HCC-CMS) (HCC) documented as of this encounter Additional Health Concerns Infection Onset Date Last Indicated Resolved Time COVID-19 03/07/2021 03/07/2021 03/27/2021 22:15 EST documented as of this encounter Care Teams Step Down Nurse Relationship Specialty Start Date End Date Filipe Bose MD PCP - General 11/07/15 12/01/16 Sana Muhammad MD PCP - General 12/02/16 08/05/20 Jim Morales MD PCP - General Family Medicine - Primary 08/06/[address] [place] [phone] documented as of this encounter
--- OUTSIDE RECORDS SUMMARY | 2021-08-16 23:33 | XMS_ITS | Encounter Summary ---
:1990 Author Organization [facility] Address [address] [place] [address] Care Team Providers Name Role Phone Filipe Bose MD Primary Care Provider Reason for Referral Radiology Services (Routine) - Closed Specialty Diagnoses / Procedures Referred By Contact Refer red To Contact Diagnoses Right shoulder pain, unspecified chronicity Alexander Santos MD Procedures SHOULDER 2 OR MORE VIEWS [address] [place] [address] Referral ID Status Reason Start Date Expiration Date Visits Requ ested Visits Authorized [id number] Closed 12/16/2015 1 1 Reason for Visit Reason Onset Date Comments Shoulder Pain 12/16/2015 Encounter Details Date Type Department Care Team Description 12/16/2015 Orders Only [facility] Alexander Santos Right franklyn ulder pain, Sports Medicine MD Hardy unspecified chronicity Program - [address] (Primary Dx) [address] [place] [address], [facility] [id number] Social History Tobacco Use Types Packs/Day Years Used Date Current Every Day Smoker 0.25 10 Smokeless Tobacco: Never Used Comments: occasional Alcohol Use Standard Drinks/Week Comments No 0 (1 standard drink = 0.6 oz pure alcoho l) occ Sex Assigned at Date Recorded Not on file documented as of this encounter Functional Status Cognitive Status Response Date of Assessment Because of a physical, mental, or emotional condition, do Ye s 09/04/2011 you have serious difficulty concentrating, remembering, or making decisions? (5 years old or older) documented as of this encounter Plan of Treatment Not on filedocumented as of this encounter Procedures Procedure Name Priority Date/Time Associated Diagnosis Comme nts SHOULDER 2 OR MORE Routine 01/17/2016 11:01 Right shoulder aric n, Results for this VIEWS EST unspecified procedure are i n chronicity the results section. documented in this encounter Results SHOULDER 2 OR MORE VIEWS (01/17/2016 11:01 EST) Anatomical Region Laterality Modality Other Specimen Narrative [facility] - 01/17/2016 17:03 EST SHOULDER 2 OR MORE VIEW ??01/17/2016 11:01 AM Signs and Symptoms/Comments: ?? M25.511-Pain in right [id number]; r ight shoulder pain . Technique: Grashey, Y view, and axillary view radiographs of the right shoulder. Comparison: Chest radiographs-12/02/2015 Findings: There is no evidence of fracture or disl ocation in the right shoulder. The glenohumeral joint and acr omioclavicular joints are normal in appearance. No significant sof t tissue abnormality. I have personally reviewed the images an d the above interpretation and agree with the findings. Procedure Note Gerson Loaiza MD - 01/17/2016 SHOULDER 2 OR MORE VIEW 01/17/2016 11:01 AM Signs and Symptoms/Comments: M25.511-Pain in right [id number]; r ight shoulder pain . Technique: Grashey, Y view, and axillary view radiographs of the right shoulder. Comparison: Chest radiographs-12/02/2015 Findings: There is no evidence of fracture or disl ocation in the right shoulder. The glenohumeral joint and acr omioclavicular joints are normal in appearance. No significant sof t tissue abnormality. I have personally reviewed the images an d the above interpretation and agree with the findings. Performing Organization Address City/State/ZIP Code Phon e Number [facility] [place] documented in this encounter Visit Diagnoses Diagnosis Right shoulder pain, unspecified chronic ity - Primary documented in this encounter Care Teams Stitcher Feeder Relationship Specialty Start Date End Date Filipe Bose MD PCP - General 11/07/15 12/01/16 documented as of this encounter
--- OUTSIDE RECORDS SUMMARY | 2021-08-16 23:33 | XMS_ITS | Encounter Summary ---
:1990 Author Organization [facility] Address [address] [place] [address] Care Team Providers Name Role Phone Noe Kurtz MD Primary Care Provider Reason for Visit Reason Comments Community Health Team Encounter Details Date Type Department Care Team Description 05/27/2012 Community Health Team [facility] Miladys Church [facility] [address], [address] [place] [address] Social History Tobacco Use Types Packs/Day Years Used Date Current Some Day Smoker 0.25 9 Smokeless Tobacco: Never Used Comments: occasional Alcohol [...] documented as of this encounter Progress Notes Shawanda Moreland - 05/27/2012 1104 EDT ..Received referral to Community Health Team. Patient is scheduled to meet with Miladys Church RD [facility] Wednesday May 30, 2012 at 10:00am. documented in this encounter Plan of Treatment Not on filedocumented as of this encounter Visit Diagnoses Not on filedocumented in this encounter Care Teams Photoengraver Apprentice Relationship Specialty Start Date End Date Noe Kurtz MD PCP - General 04/01/12 documented as of this encounter
--- OUTSIDE RECORDS SUMMARY | 2021-08-16 23:33 | XMS_ITS | Encounter Summary ---
:1990 Author Organization [facility] Address [address] [place] [address] Care Team Providers Name Role Phone Filipe Bose MD Primary Care Provider Reason for Visit Reason Onset Date Comments Contraception 12/09/2015 Encounter Details Date Type Department Care Team Description 12/09/2015 Orders Only [facility] Dyllan Bose MD Family Medicine - [address] [address] [place], [place] [id number] [phone] Social History Tobacco Use Types Packs/Day Years [...] Sig Dispensed Refills Start Date End Date medroxyPROGESTERone Inject 150 mg 1 mL 0 12/09/2015 (DEPO-PROVERA) 150 mg/mL into the muscle syringe every 12 weeks. documented in this encounter Plan of Treatment Not on filedocumented as of this encounter Visit Diagnoses Not on filedocumented in this encounter Discontinued Medications Medication Sig Discontinue Reason Start Date End Date medroxyPROGESTERone Inject 150 mg Reorder 016 (DEPO-PROVERA) 150 mg/mL into the muscle syringe every 12 weeks. documented as of this encounter Care Teams Oracle Soa Developer Relationship Specialty Start Date End Date Filipe Bose MD PCP - General 11/07/15 12/01/16 documented as of this encounter
--- OUTSIDE RECORDS SUMMARY | 2021-08-16 23:33 | XMS_ITS | Encounter Summary ---
:[address] [facility] [place] Address [address] [place] [address] Care Team Providers Name Role Phone Filipe Bose MD Primary Care Provider Reason for Visit Reason Comments Depression Encounter Details Date Type Department Care Team Description 01/17/2016 Office Visit [facility] Unknown, Prov MD alexey Paranoid schizophrenia ([facility]) (Primar y Dx); Family Medicine - Filipe Bose MD [address] [place] [id number] Need for influenza vaccination [address] [address] Social History Tobacco Use Types Packs/Day Years Used Date Current Every Day Smoker 0.25 10 Smokeless Tobacco: Never Used Comments: occasional Alcohol Use Standard Drinks/Week Comments No 0 (1 standard drink = 0.6 oz pure alcoho l) occ Sex Assigned at Date Recorded Not on file documented as of this encounter Last Filed Vital Signs Vital Sign Reading Time Taken Comments Blood Pressure 128/86 01/17/2016 1430 EST Pulse 104 01/17/2016 1430 EST Temperature - - Respiratory Rate - - Oxygen Saturation - - Inhaled Oxygen Concentration - - Weight - - Height - - Body Mass Index - - documented in this encounter Functional Status Cognitive Status Response Date of Assessment Because of a physical, mental, or emotional condition, do Ye s 09/04/2011 you have serious difficulty concentrating, remembering, or making decisions? (5 years old or older) documented as of this encounter Discharge Diagnoses Diagnosis M25.511 Pain in right shoulder-M25.511[I CD-10-CM] documented in this encounter Discharge Disposition Disposition Code Departure Means Destination Auto Discharge documented in this encounter Progress Notes Tim Woodall - 01/17/2016 1430 EST Attestation statement: I discussed the patient with the resident/fellow at the time of the visit andagree with the findings and plan of care. Tim Woodall MD 01/20/2016 9:00 Filipe Martinez MD - 01/17/2016 1430 EST Subjective: Patient ID: Mary Grace Harris is an 25 y.o. female. Chief Complaint Patient presents with ??? Depression HPI 25 yo female presents to clinic for medication check for her paranoid schizophrenia. She has been stable on her medications. She does not currently have a psychiatric provider but is working on gettingone [facility] the [facility] but it may take a couple months. Otherwise she has been doing well. This provider spoke to her previous psychiatric provider, Danika Orosco, and confirmed that she still has enough medication to get her until February. She saw Dr. Santos with orthopedics to evaluate her shoulder. Her shoulder was fine on examination, it was thought her pain is related to her cervical spine. She will be evaluated by the ortho spine providers. Patient Active Problem List Diagnosis ??? Depression ??? Celiac disease ??? Anxiety ??? Paranoid schizophrenia ??? Chronic pain syndrome ??? Supervision of normal first ??? Tobacco dependence syndrome Past Medical History Diagnosis Date ??? Asthma ??? Asthma, exercise [...] daily. use thin film on affected area 1 Bottle 1 ??? cyclobenzaprine (FLEXERIL) 10 mg tablet Take 10 mg by mouth once. ??? LORazepam (ATIVAN) 1 mg tablet Take 0.5 Tabs by mouth every 4 hours as needed for Anxiety. (Patient taking differently: Take 1 mg by mouth 3 times daily as needed for Anxiety. ) 15 Tab 0 ??? medroxyPROGESTERone (DEPO-PROVERA) 150 mg/mL syringe Inject 150 mg into the muscle every 12 weeks. 1 mL 0 ??? perphenazine (TRILAFON) 2 mg tablet Take 2 mg by mouth daily. ??? perphenazine (TRILAFON) 4 mg tablet Take 4 mg by mouth as needed (can take 1-2 tabs PRN in addition to her 2 mg (maximum 10 mg dose)). ??? ziprasidone (GEODON) 20 mg capsule Take 3 Caps by mouth 2 times daily. (Patient taking differently: Take by mouth as needed (Max dose is 200-220 mg). ) 20 Cap 0 ??? ziprasidone (GEODON) 60 mg capsule Take 120 mg by mouth at bedtime. ??? ziprasidone (GEODON) 80 mg capsule Take 80 mg by mouth daily. No current facility-administered medications on file prior to visit. Allergies Allergen Reactions ??? Gluten Protein ??? Haldol [Haloperidol Lactate] paralysis ??? Paxil [Paroxetine Hcl] Nausea And Vomiting Social Social History Substance Use Topics ??? Smoking status: Current Every Day Smoker Packs/day: 0.25 Years: 10.00 ??? Smokeless tobacco: Never Used Comment: occasional ??? Alcohol use No Comment: occ Review of Systems Constitutional: Negative for chills, fever and malaise/fatigue. HENT: Negative for hearing loss. Eyes: Negative for photophobia. Musculoskeletal: Positive for joint pain and neck pain. Neurological: Negative for sensory change and focal weakness. - See HPI Objective: Visit Vitals ??? BP 128/86 (BP Cuff Location: Right arm, Patient Position: Sitting) ??? Pulse 104 Physical Exam Constitutional: She is oriented to person, place, and time. She appears well- developed and well-nourished. No distress. Eyes: EOM are normal. Cardiovascular: Normal rate. Pulmonary/Chest: Effort normal. Neurological: She is alert and oriented to person, place, and time. Skin: Skin is warm and dry. No rash noted. She is not diaphoretic. No erythema. No pallor. Psychiatric: She has a normal mood and affect. Her behavior is normal. Judgment and thought content normal. Nursing note and vitals reviewed. Assessment: Plan: Mary Grace was seen today for depression. Diagnoses and all orders for this visit: Paranoid schizophrenia: Her PCP will continue to prescribe her psychiatric medications until she canbe seen by a psychiatrist. The patient understands that she would need to go to [facility] if she needs an adjustment in her medication. - SERTRALINE HCL (SERTRALINE ORAL); Take 100 mg by mouth at bedtime. Unknown dose - BENZTROPINE MESYLATE (BENZTROPINE ORAL); Take 4 mg by mouth 2 times daily. Unknown dose Need for influenza vaccination: She received her influenza vaccine at this visit. - APP969 - Influenza Vaccine =>2YO Quad Preservative Free IM Call made to [facility] to clarify her psychiatric medications: Takes ziprasidone 80 mg in AM, 120 mg QHS, and then 20 mg PRN if needed with a maximum dose of 200-220 mg. Takes sertraline 100 mg QHS Takes Benztropine 4 mg BID with 1 mg PRN (but the PRN med not approved by insurance) Takes Perphenazine 2 mg daily, then 4 mg PRN with max dose of 10 mg Ativan 1 mg 2-3 times a day Return to care if symptoms persist or do not improve. The patient exhibited understanding of these instructions and there were no barriers to learning. The patient was discussed with Dr. Woodall who agrees with this plan. documented in this encounter Plan of Treatment Not on filedocumented as of this encounter Visit Diagnoses Diagnosis Paranoid schizophrenia (HCC-CMS) (HCC) - Primary Paranoid schizophrenia, unspecified cond ition Need for influenza vaccination Need for prophylactic vaccination and in oculation against influenza documented in this encounter Discontinued Medications Medication Sig Discontinue Reason Start Date End Date aripiprazole (ABILIFY) 20 Take 1 Tab by 05/18/2012 1 03/18/2015 mg tabletIndications: mouth daily. Paranoid schizophrenia (HCC-CMS) (HCC) documented as of this encounter Historical Medications This list may reflect changes made after this encounter. Medication Sig Dispensed Refills Start Date End Date BENZTROPINE MESYLATE Take 4 mg by mouth 0 03/25/2016 (BENZTROPINE 2 times daily. ORAL)Indications: Paranoid Unknown dose schizophrenia (HCC-CMS) (HCC) SERTRALINE HCL (SERTRALINE Take 100 mg by 0 02/26/2016 ORAL)Indications: Paranoid mouth at bedtime. schizophrenia (HCC-CMS) Unknown dose (HCC) added in this encounter Orders Immunization/Injection Count Last Ordered Date First O rdered Date INFLUENZA VACCINE =>3YO QUAD PRESERVATIVE 1 2015 FREE IM documented in this encounter Care Teams Doctor Of Podiatry Relationship Specialty Start Date End Date Filipe Bose MD PCP - General 11/07/15 12/01/16 documented as of this encounter
--- OUTSIDE RECORDS SUMMARY | 2021-08-16 23:33 | XMS_ITS | Encounter Summary ---
:1990 Author Organization [facility] Address [address] [place] [address] Care Team Providers Name Role Phone Filipe Bose MD Primary Care Provider Reason for Referral Consult (Routine/Next Available) - Closed Specialty Diagnoses / Procedures Referred By Contact Refer red To Contact Psychiatry Diagnoses Paranoid schizophrenia ([facility] ([facility]) Jessica Navarro MD [place] [phone] [place] [address] [address] [address] Fax: Referral ID Status Reason Start Date Expiration Date Visits V isits Requested Authorized [id number] Closed Specialty 01/07/2016 1 1 Services Required Question Answer Reason for Request: paranoid schizophrenia, brendon ent recently moved back to [place], needs referral to be plugged back into psychiatry Encounter Details Date Type Department Care Team Description 01/07/2016 Orders Only [facility] Filipe Bose MD Paranoid schizophrenia [facility] [address] [place] [address] ([facility]) (Primary Dx) [place] [phone] [address] [facility] [place], [place] [phone] Social History Tobacco Use Types Packs/Day Years [...] as of this encounter Plan of Treatment Scheduled Referrals Name Type Priority Associated Diagnoses Order S chedule AMB CONS/FOLLOW UP Outpatient Referral Routine Paranoid schizo phrenia Ordered: ADULT PSYCHIATRY ([facility]) 01/07/2016 CLINIC documented as of this encounter Visit Diagnoses Diagnosis Paranoid schizophrenia ([facility] ([facility]) - Primary Paranoid schizophrenia, unspecified cond ition documented in this encounter Care Teams Wrap Yarn Sorter Relationship Specialty Start Date End Date Filipe Bose MD PCP - General 11/07/15 12/01/16 documented as of this encounter
--- OUTSIDE RECORDS SUMMARY | 2021-08-16 23:33 | XMS_ITS | Encounter Summary ---
:1990 Author Organization [facility] Address [address] [place] [address] Care Team Providers Name Role Phone Noe Kurtz MD Primary Care Provider Reason for Visit Reason Comments Community [facility] Team Encounter Details Date Type Department Care Team Description 05/30/2012 [facility] Unknown, Pro MD cristofer Team Family Medicine - Aisha Carmichael MD [address] [place] [id number] [phone] Social History Tobacco Use Types Packs/Day Years [...] older) documented as of this encounter Discharge Disposition Disposition Code Departure Means Destination Auto Discharge documented in this encounter Progress Notes Miladys Church, JOEY - 05/30/2012 1218 EDT Nutrition education and counseling for and . Pt presents with signifigant weight gain, , and desire for education about healthy eating during and to support healthy weight loss. Pt has history of juice cleanses for months to lose weight. Discussed need to avoid added weight gain and limit weight loss during . Discussed need to maintain healthy diet during , but weight loss is during that time is possible. Pt reports she has not gained any more weight since started Abilify. Pt reports she has been advised it is ok if she losses some weight (no more than 10lbs) during the duration of her . Pt has been on a gluten free diet for 4 years, verbalized no need for additional education or support in that regard. We discussed healthy eating to support weight management in and lactationand healthy weight loss. We created a healthy meal plan for her, discussed portion sizes,budget friendly foods and shopping/cooking ideas. Pt does receive WIC, finds it helpful. Her [employer] benefit was decreased to about $8/month due to her boyfriend getting [another] job. Pt is not interested in food shelves for additional food resources due to many foods have gluten. We discussed skills for establishing effective exclusive , and encouraged she get additionalon going support from a peer counselor from [facility] or another sap security consultant. Handouts provided on nutrition during , nutrition needs during , and FAQ's about including resources for more information. Also provided info about car seat safety and the car seat safety checks at the ospital. Pt is likely moving back to [facility] before the baby is born; cost of living is less. Pt plans on staying connected with [facility] and other geriatric social worker there. Pt goal(s): No goals established. Pt verbalized understanding and identified no further needs for nutrition education. Pt was satisfied with our visit and outcomes. Total Time: 60 minutes Referrals: Car Seat safety check, encouraged continuing with current support systems Follow-Up: provided contact info, pt or PCP are welcome to reconnect if needed Status: GRADUATED with LUNAT RD documented in this encounter Plan of Treatment Not on filedocumented as of this encounter Visit Diagnoses Not on filedocumented in this encounter Care Teams Air Sealing Technician Relationship Specialty Start Date End Date Noe Kurtz MD PCP - General 04/01/12 05/02/13 documented as of this encounter
--- OUTSIDE RECORDS SUMMARY | 2021-08-16 23:33 | XMS_ITS | Encounter Summary ---
:1990 Author Organization [facility] Address [address] [place] [address] Care Team Providers Name Role Phone Stephon Marquez MD Primary Care Provider Encounter Details Date Type Department Care Team Description 08/30/2015 Results Only [facility]- Scarlet Basilio MD [phone] [facility] [place], [place] [id number] (Wo rk) Social History Tobacco Use Types Packs/Day Years Used Date Current Some Day Smoker 0.25 10 Smokeless Tobacco: Never [...] Name Priority Date/Time Associated Diagnosis Comme nts PAP TEST- RESULT Routine 08/30/2015 0:00 EDT Resu lts for this ONLY procedure are i n the results section. documented in this encounter Results PAP TEST- RESULT ONLY (08/30/2015 0:00 EDT) Pathology Report: CYTOPATHOLOGY REPORT [facility] Reports generated via electronic interface contain jason ginal data; SERVICES however they are lacking the format of the original re port. Caution should be taken when reading/interpreting unfo rmatted reports. Name: ? YASMANY EUBANKS ? Accession #: ? [id number] : ? 1990 (Age: 24) ??F ?Collect Date: ? 08/29 Location: ? [facility] ? Receive Date : ? 09/03/2015 Provider: ?SCARLET MENENDEZ MD Copy to: ?STEPHON MARQUEZ MD ? Specimen/Source: ? Pap Test, Cervix/Endocervix, ThinPrep Imaging System with manual evaluation Last Menstrual Period: ? Hormonal/Contraceptive Status: ? Depo-Provera ? SPECIMEN ADEQUACY ? Satisfactory for Evaluation - transformation zone component present GENERAL CATEGORIZATION ? Negative for Intraepithelial Lesion or Malignan cy INTERPRETATION ? Shift in gina present suggestive of bacterial vaginosis. ? Document reviewed and electronically signed by: ? YVAN Phelps(ASCP) ? Report Date: ??09/13/2015 13:07 End of Report Specimen Performing Organization Address City/State/ZIP Code Phon e Number [facility] [address] [place] [address] SERVICES documented in this encounter Visit Diagnoses Not on filedocumented in this encounter Care Teams Assistant Auditor Relationship Specialty Start Date End Date Stephon Marquez MD PCP - General 08/06/13 11/06/15 documented as of this encounter
--- OUTSIDE RECORDS SUMMARY | 2021-08-16 23:33 | XMS_ITS | Encounter Summary ---
:[address] [facility] Address [address] [place] [address] Care Team Providers Name Role Phone Filipe Bose MD Primary Care Provider Reason for Referral Consult (Routine/Next Available) - Closed Specialty Diagnoses / Procedures Referred By Contact Refer red To Contact Psychiatry Diagnoses Paranoid schizophrenia ([facility]) (HCC) Anxiety Arely Hernandez 6 Psychiatry MD Edwardo [id number] [place] [address] Phone: [phone] Referral ID Status Reason Start Date Expiration Date Visits V isits Requested Authorized [id number] Closed Specialty 03/25/2016 1 1 Services Required Question Answer Reason for Request: paranoid schizophrenia, anxi ety, fibromylagia, on perphenazine, geodon, benztropine Reason for Visit Reason Comments Schizophrenia please clarify lorazepam dos ing. Patient using BID and 1 extra PRN Encounter Details Date Type Department Care Team Description 03/25/2016 Office Visit [facility] Unknown, Prov MD alexey Paranoid schizophrenia (CMS-HCC) (Primar y Dx); Family Medicine - Filipe Bose MD [address] [place] [phone] Anxiety; [address] Chronic pain syndrome [address] [place] [address] Social History Tobacco Use Types Packs/Day Years Used Date Current Every Day Smoker 0.25 10 Smokeless Tobacco: Never Used Comments: occasional Alcohol Use Standard Drinks/Week Comments No 0 (1 standard drink = 0.6 oz pure alcoho l) occ Sex Assigned at Date Recorded Not on file documented as of this encounter Last Filed Vital Signs Vital Sign Reading Time Taken Comments Blood Pressure 144/78 03/25/2016 1450 EST Pulse 88 03/25/2016 1450 EST Temperature - - Respiratory Rate - - Oxygen Saturation - - Inhaled Oxygen Concentration - - Weight 129.3 kg (285 lb) 03/25/2016 1450 EST Height 162.6 cm (5' 4) 03/25/2016 1450 EST Body Mass Index 48.92 03/25/2016 1450 EST documented in this encounter Functional Status [...] 1 Cap by mouth 60 Cap 2 06/26/2016 mg capsuleIndications: as needed for Other. Paranoid schizophrenia ([facility]) ([facility]) ziprasidone (GEODON) 80 Take 1 Cap by mouth 30 Each 5 07/29/2016 mg capsuleIndications: daily. Paranoid schizophrenia ([facility]) ([facility]) ziprasidone (GEODON) 60 Take 2 Caps by mouth 60 Each 5 07/29/2016 mg capsuleIndications: at bedtime. Paranoid schizophrenia ([facility]) ([facility]) sertraline (ZOLOFT) 100 Take 1 Tab by mouth 30 Tab 5 07/29/2016 mg tabletIndications: at bedtime. Unknown Paranoid schizophrenia dose ([facility]) ([facility]) perphenazine (TRILAFON) 4 Take 1 Tab by mouth 30 Tab 5 0 03/25/2016 12/02/2016 mg tabletIndications: as needed (can take Paranoid schizophrenia 1-2 tabs PRN in ([facility]CC-CMS) (HCC) addition to her 2 mg (maximum 10 mg dose)). perphenazine (TRILAFON) 2 Take 1 Tab by mouth 30 Tab 5 0 03/25/2016 08/27/2016 mg tabletIndications: daily. Paranoid schizophrenia ([facility]CC-CMS) ([facility]) benztropine (COGENTIN) 2 Take 2 Tabs by mouth 120 Tab 2 0 03/25/2016 05/11/2016 mg tabletIndications: 2 times daily for 30 Paranoid schizophrenia days. (HCC-CMS) ([facility]) documented in this encounter Progress Notes Arely Hernandez MD - 03/25/2016 9997 EST Attestation statement: I discussed the patient with the resident/fellow at the time of the visit. I agree with the findings and the plan of care documented in the resident's/fellow's note. Arely Hernandez MD Filipe Matrinez MD - 03/25/2016 8889 EST Subjective: Patient ID: Mary Grace Harris is an 25 y.o. female. Chief Complaint Patient presents with ??? Schizophrenia please clarify lorazepam dosing. Patient using BID and 1 extra PRN HPI 25 yo female presents to clinic [...] medications. She does not currently hear voices. Her medication doses were verified with her pharmacy. We have tried to get her in to see a psychiatrist but have been unsuccessful so far. It is very difficult to get her in due to limited availability. She has chronic musculoskeletal pain including neck pain. She used to be on opiates but she did not like being on them. She has an appointment to see orthopedic spine in April. She is requesting medical marijuana to help with her chronic pain and the nausea she gets with her anti-psychotics. She states she has been on medical marijuana in the past. Patient Active Problem List Diagnosis ??? Depression [...] muscle every 12 weeks. 1 mL 0 Current Facility-Administered Medications on File Prior to Visit Medication Dose Route Frequency Provider Last Rate [...] occ Review of Systems Constitutional: Negative for malaise/fatigue. HENT: Negative for hearing loss. Eyes: Negative for photophobia. Respiratory: Negative for cough and wheezing. Gastrointestinal: Positive for nausea. Musculoskeletal: Positive for joint pain and neck pain. Neurological: Negative for sensory change. - See HPI Objective: Visit Vitals ??? BP (!) 144/78 ??? Pulse 88 ??? Ht 162.6 cm (64) ??? Wt (!) 129.3 kg (285 lb) ??? BMI 48.92 kg/m2 Physical Exam Constitutional: She is oriented to person, place, and time. She appears well- developed and well-nourished. No distress. Eyes: EOM are normal. Right eye exhibits no discharge. Left eye exhibits no discharge. No scleral icterus. Cardiovascular: Normal rate. Pulmonary/Chest: Effort normal. Musculoskeletal: Normal range of motion. Neurological: She is alert and oriented to person, place, and time. Skin: Skin is warm and dry. No rash noted. She is not diaphoretic. No erythema. No pallor. Psychiatric: She has a normal mood and affect. Her behavior is normal. Seems to have short attention span. She needs things repeated to her multiple times before she understands. Nursing note and vitals reviewed. Assessment: Plan: Mary Grace was seen today for schizophrenia. Diagnoses and all orders for this visit: Paranoid schizophrenia: She is currently stable, her medications were refilled at the current dose. She was referred to [facility] in an effort to get her to be followed by psychiatry which would be ideal. In the interim, her PCP will continue to refill her psychiatric medications. Should she become unstable, she will need to go to the Emergency Department to be evaluated by psychiatry. A marijuana registry application was filled out with the patient in the office. I believe that she qualifies for medical marijuana based on her chronic pain and nausea with her anti-psychotic medications. Shewill fill out the other required form, get it notarized, and apply for a marijuana registry card. Her fiance, Steve, will be able to assist her with filling out the forms. She was offered T assistance to fill out her forms if she decides she needs it. - benztropine (COGENTIN) 2 mg tablet; Take 2 Tabs by mouth 2 times daily for 30 days. - perphenazine (TRILAFON) 2 mg tablet; Take 1 Tab by mouth daily. - perphenazine (TRILAFON) 4 mg tablet; Take 1 Tab by mouth as needed (can take 1-2 tabs PRN in addition to her 2 mg (maximum 10 mg dose)). - sertraline (ZOLOFT) 100 mg tablet; Take 1 Tab by mouth at bedtime. Unknown dose - ziprasidone (GEODON) 60 mg capsule; Take 2 Caps by mouth at bedtime. - ziprasidone (GEODON) 80 mg capsule; Take 1 Cap by mouth daily. - ziprasidone (GEODON) 20 mg capsule; Take 1 Cap by mouth as needed for Other. - Amb [facility] Chronic Pain: She has an appointment with orthopedic spine on 04/13/16. A marijuana registry application was filled out as detailed above. Anxiety - Amb [facility] Call made to [facility] to clarify her psychiatric medications: Takes ziprasidone [...] mg BID, with a third dose PRN Return in about 3 months (around 06/23/2016) for DONATO, for f/u of paranoid schizophrenia. The patient exhibited understanding of these instructions and there were no barriers to learning. The patient was discussed with Dr. Hernandez who agrees with this plan. Filipe Bose MD Rural Route Carrier Pager #[phone] documented in this encounter Plan of Treatment Scheduled Referrals Name Type Priority Associated Diagnoses Order S chedule AMB CONS/FOLLOW Outpatient Referral Routine Paranoid schizophr enia Ordered: [facility] ([facility]) 03/25/2016 PHP Anxiety documented as of this encounter Visit Diagnoses Diagnosis Paranoid schizophrenia ([facility] ([facility]) - Primary Paranoid schizophrenia, unspecified cond ition Anxiety Anxiety state, unspecified Chronic pain syndrome documented in this encounter Discontinued Medications Medication Sig Discontinue Reason Start Date End Date medroxyPROGESTERone Inject 1 mL into 03/12/201603/08 (DEPO-PROVERA) 150 mg/mL the muscle every injection 12 weeks. BENZTROPINE MESYLATE Take 4 mg by 017 (BENZTROPINE mouth 2 times ORAL)Indications: Paranoid daily. Unknown schizophrenia ([facility]) dose ([facility]) benztropine (COGENTIN) 2 mg Take 4 mg by Reorder 03/25/2016 tablet mouth 2 times daily. perphenazine (TRILAFON) 2 mg Take 1 Tab by Reorder 02/26/2016 03/25/2016 tabletIndications: Paranoid mouth daily. schizophrenia (HCC-CMS) ([facility]) perphenazine (TRILAFON) 4 mg Take 1 Tab by Reorder 02/26/2016 03/25/2016 tabletIndications: Paranoid mouth as needed schizophrenia ([facility]) (can take 1-2 ([facility]) tabs PRN in addition to her 2 mg (maximum 10 mg dose)). sertraline (ZOLOFT) 100 mg Take 1 Tab by Reorder 02/26/2016 03/25/2016 tabletIndications: Paranoid mouth at schizophrenia ([facility]) bedtime. Unknown ([facility]) dose ziprasidone (GEODON) 60 mg Take 2 Caps by Reorder 02/27/2016 03/25/2016 capsuleIndications: Paranoid mouth at schizophrenia ([facility]) bedtime. ([facility]) ziprasidone (GEODON) 80 mg Take 1 Cap by Reorder 02/27/2016 03/25/2016 capsuleIndications: Paranoid mouth daily. schizophrenia ([facility]) (HCC) documented as of this encounter Historical Medications This list may reflect changes made after this encounter. Medication Sig Dispensed Refills Start Date End Date benztropine (COGENTIN) 2 Take 4 mg by mouth 0 03/25/2016 mg tablet 2 times daily. added in this encounter Care Teams Store Deli Manager Relationship Specialty Start Date End Date Filipe Bose MD PCP - General 11/07/15 12/01/16 documented as of this encounter
--- OUTSIDE RECORDS SUMMARY | 2021-08-16 23:33 | XMS_ITS | Encounter Summary ---
:1990 Author Organization [facility] Address [address] [place] [address] Care Team Providers Name Role Phone Noe Kurtz MD Primary Care Provider Reason for Visit Reason Onset Date Comments Prior Auth, Medication 04/25/2012 Encounter Details Date Type Department Care Team Description 04/25/2012 Telephone [facility] Noe Kurtz, Taina Chávez, Medication Family Medicine - [address] [phone] Social History Tobacco Use Types Packs/Day Years [...] this encounter Miscellaneous Notes Telephone Encounter - Sulema James RN - 04/25/2012 5479 EST Per office visit on 04/22/[address] Kurtz: -Will start to titrate Olanzapiene down (30mg -- 20mgdivided in 2-10mg doses) Will start abilify 5mg qhs. -Will continue to bridge at next office visit in 1 week. [place] wants to know if she can take the 20 mg tablets and cut them in half? Dr. Kurtz states due to mental health issues I am concerned about pt's comprehension to take the 20 mg and break them in half. It would be safer to have her take 10 mg twice a day. I hope to have heroff the medication in a month. Telephone order Dr. Kurtz repeated and confirmed. elephone Encounter - Celine Kohler - 04/25/2012 1537 EST [place] Medicaid will not cover the Olanzapine 10 mg twice daily, they will only pay for 20 mg once daily. documented in this encounter Plan of Treatment Not on filedocumented as of this encounter Visit Diagnoses Not on filedocumented in this encounter Care Teams Settlement Processor Relationship Specialty Start Date End Date Noe Kurtz MD PCP - General 04/01/12 05/02/13 documented as of this encounter
--- OUTSIDE RECORDS SUMMARY | 2021-08-16 23:33 | XMS_ITS | Encounter Summary ---
:[address] [facility] Address [address] [place] [address] Care Team Providers Name Role Phone Filipe Bose MD Primary Care Provider Reason for Visit Reason Onset Date Comments Medication Problem 03/27/2016 Encounter Details Date Type Department Care Team Description 03/27/2016 Refill [facility] Dyllan Bose MD Medication Problem Family Medicine - [address] [place] [phone] [place] [address] [place] [address] [phone] Social History Tobacco Use Types Packs/Day Years [...] Notes Telephone Encounter - Doug Rojo - 03/27/2016 0478 EST Patient checking on status, let her know it was ready for pick up elephone Encounter - Alia Claricerobb - 03/27/2016 1337 EST Pharmacist calling about Lorazepam 1mg. Directions needs clarification. Please call elephone Encounter - Mita Johnson - 03/27/2016 1246 EST Patient usually is prescribed 90 pills of Lorazepam but her last refill on 03/20/[address] Bose was foronly 15. Was this intentional? She uses [facility] in [place]. Please call to discuss. documented in this encounter Plan of Treatment Not on filedocumented as of this encounter Visit Diagnoses Not on filedocumented in this encounter Care Teams Curtains And Draperies Salesperson Relationship Specialty Start Date End Date Filipe Bose MD PCP - General 11/07/15 12/01/16 documented as of this encounter
--- OUTSIDE RECORDS SUMMARY | 2021-08-16 23:33 | XMS_ITS | Encounter Summary ---
:1990 Author Organization [facility] Address [address] [place] [address] Care Team Providers Name Role Phone Filipe Bose MD Primary Care Provider Reason for Visit Reason Onset Date Comments Medications Refill 03/24/2016 Encounter Details Date Type Department Care Team Description 03/24/2016 Refill [facility] Dyllan Bose MD Medications Refill Family Medicine - [address] [place] [phone] [place] [address] [place], [place] [id number] [phone] Social History Tobacco Use Types Packs/Day Years [...] Refills Start Date End Date cyclobenzaprine (FLEXERIL) Take 1 Tab by 30 Tab 1 201602/20/2017 10 mg tablet mouth 2 times daily as needed for Muscle Spasms. documented in this encounter Miscellaneous Notes Telephone Encounter - Ernestine Polanco RN - 03/24/2016 1053 EST Last Refill Date: Flexeril 02/26/16 for 30 with 1 refill Last Visit Date with Ordering Provider: 01/17/16 Next Visit Date as it relates to the requested medication: Yes.03/25/16 Last Related Labs Date: N/A Ernestine Polanco RN 03/24/2016 10:53 elephone Encounter - Doug Rojo - 03/24/2016 1034 EST Medication(s) Requested: Cyclobenzaprine 30/1rf Last fill: 02/26/16 ДМИТРИЙ: 01/17/16 Preferred Pharmacy: [facility] Is patient out of medication? Unknown Doug Rojo 03/24/2016 10:34 documented in this encounter Plan of Treatment Not on filedocumented as of this encounter Visit Diagnoses Not on filedocumented in this encounter Discontinued Medications Medication Sig Discontinue Reason Start Date End Date cyclobenzaprine (FLEXERIL) Take 1 Tab by Reorder 02/26/2016 03/24/2016 10 mg tablet mouth 2 times daily as needed for Muscle Spasms. documented as of this encounter Care Teams Corporate Account Executive Relationship Specialty Start Date End Date Filipe Bose MD PCP - General 11/07/15 12/01/16 documented as of this encounter
--- OUTSIDE RECORDS SUMMARY | 2021-08-16 23:33 | XMS_ITS | Encounter Summary ---
:1990 Author Organization [facility] Address [address] [place] [address] Care Team Providers Name Role Phone Filipe Bose MD Primary Care Provider Reason for Visit Reason Onset Date Comments Medication Problem 12/30/2015 Encounter Details Date Type Department Care Team Description 12/30/2015 Refill [facility] Dyllan Bose MD Medication Problem Family Medicine [address] [phone] [place] [address] [place] [address] [phone] Social History Tobacco Use Types Packs/Day Years [...] Sig Dispensed Refills Start Date End Date clindamycin (CLEOCIN T) Apply topically 2 1 Bottle 1 01/0310/31/2016 1 % external solution times daily. use thin film on affected area albuterol 90 Inhale 2 Puffs as 3 Inhaler 3 01/04/201612/02 mcg/actuation directed every 4 inhalerIndications: hours. inhale 2 puffs before exercise documented in this encounter Miscellaneous Notes Telephone Encounter - Aisha Barnett, RN - 01/07/2016 1134 EDT Spoke with pt. And told her her regular medications were refilled by Dr. Bose but her medications by her old psychiatrist should be filled by her next psychiatrist at appt.. Pt. States she is not sure ifthey will and said she only has a week left. She has a [facility] appt. On 01/15. Will f/u with PCP and see if there is a new plan for med refills until that time. Pt. Verbalizes understanding. No barriers to learning noted. elephone Encounter - Doug Rojo - 12/30/2015 0947 EDT Patient says she needs a refill on all her medications. Says Dr. Bose told her that Dr. Tran needs to fill them, but Dr. Tran told her that Dr. Bose needs to fill them. Also not seeing any current mediations on file. Patient says all current medications should have been sent from her physicans office [facility] where she was just transferred from. Patient was seen by Dr Bose on 11/26/15. Please advise. documented in this encounter Plan of Treatment Not on filedocumented as of this encounter Visit Diagnoses Diagnosis Paranoid schizophrenia ([facility]) ([facility]) - Primary Paranoid schizophrenia, unspecified cond ition documented in this encounter Discontinued Medications Medication Sig Discontinue Reason Start Date End Date albuterol 90 Inhale 180 mcg as Reorder 12/30/2015 mcg/actuation directed every 4 inhalerIndications: hours. inhale 2 puffs before exercise clindamycin (CLEOCIN T) Apply topically 2 Reorder 12/30/2015 1 % external solution times daily. use thin film on affected area documented as of this encounter Care Teams Supervisor Pipe Joints Relationship Specialty Start Date End Date Filipe Bose MD PCP - General 11/07/15 12/01/16 documented as of this encounter
--- OUTSIDE RECORDS SUMMARY | 2021-08-16 23:33 | XMS_ITS | Encounter Summary ---
:1990 Author Organization [facility] Address [address] [place] [address] Care Team Providers Name Role Phone Noe Kurtz MD Primary Care Provider Reason for Referral Consult (48 Hrs (Urgent)) - Closed Specialty Diagnoses / Procedures Referred By Contact Refer red To Contact Diagnoses Paranoid schizophrenia ([facility]) ([facility]) Noe Kurtz MD [address] [place] [phone] Referral ID Status Reason Start Date Expiration Date Visits V isits Requested Authorized [id number] Closed Specialty 04/08/2012 1 1 Services Required Question Answer What areas would you like the CHT to Connecting to [facility] and Financial focus on? Resources, Nutrition Help - Patient with Paranoid Schizophrenia and p regnant needs to re-connect with Damon hernadez What goals would you like the patient to Connecting [facility] Mental Health Resources meet? Comments As we discussed in your visit today, florencia boles will be contacting you from the Community Health Team to schedule an sharmin ointment with you. If you do not hear from the CHT within a week please call the [facility] Health Team at [phone]. Reason for Visit Reason Onset Date Comments Referral Request 04/08/2012 Encounter Details Date Type Department Care Team Description 04/08/2012 Telephone [facility] Noe Kurtz MD Referral Request [address] [phone] (Wo rk) Social History Tobacco Use Types [...] this encounter Miscellaneous Notes Telephone Encounter - Noe Kurtz MD - 04/08/2012 1519 EST Called patient's mobile to discuss CHT referral and Damon Referral. No answer and left vm. Also called home number - patient answered advised her to go in to [facility] on [facility] MWF 8-12pm for intake. She understands and is aware and has a ride. CHT team referral also made and patient receptive. Noe Kurtz MD, MPH PGY - 2 Family Medicine, 2176 documented in this encounter Plan of Treatment Scheduled Referrals Name Type Priority Associated Diagnoses Order S chedule AMB CONSULT Outpatient Referral Routine Paranoid schizophreni a Ordered: [facility] 04/08/2012 TEAM documented as of this encounter Visit Diagnoses Diagnosis Paranoid schizophrenia ([facility]) ([facility]) - Primary Paranoid schizophrenia, unspecified cond ition documented in this encounter Care Teams Crew Supervisor Relationship Specialty Start Date End Date Noe Kurtz MD PCP - General 04/01/12 05/02/13 documented as of this encounter
--- OUTSIDE RECORDS SUMMARY | 2021-08-16 23:33 | XMS_ITS | Encounter Summary ---
:1990 Author Organization [facility] Address [address] [place] [address] Care Team Providers Name Role Phone Filipe Bose MD Primary Care Provider Reason for Visit Reason Comments Contraception pt will need UPT , prior to depo injection Encounter Details Date Type Department Care Team Description 03/13/2016 Nurse Only [facility] Unknown, Prov MD alexey Encounter for Family Medicine - Nurse, [facility] Benjy , RN surveillance of [place] injectable contraceptive [address] (Primary Dx) [place] [address] Social History Tobacco Use Types Packs/Day Years [...] documented as of this encounter Progress Notes Monica Alexander LPN - 03/13/2016 1015 EST POCT UPT , negative gave depo injection Monica Alexander LPN 03/13/2016 10:22 I was supervised by DR Navarro who was present and immediately available in the office suite. Monica Alexander LPN 03/13/2016 10:22 Patient Education Topic: medroxyprogesterone 150 mg IM , last dose 12-10-15 , pt aware next injectiondue in 12 weeks Method: Verbal Taught to: Patient Barriers: None Outcomes: verbalized understanding Signature: Monica Alexander LPN 03/13/2016 10:23 documented in this encounter Plan of Treatment Not on filedocumented as of this encounter Procedures Procedure Name Priority Date/Time Associated Diagnosis Comme nts POCT Routine 03/13/2016 10:16 Encounter for Results for this TEST, VISUAL READ EST surveillance of procedu re are in injectable the results contraceptive section. documented in this encounter Results POCT URINE TEST (03/13/2016 10:16 EST) Pathologist Sig nature Test, Urine, POC Negative . POINT OF CARE Control Line Present Yes POINT OF CARE Background Clear? Yes POINT OF CARE Specimen Urine (substance) Performing Organization Address City/State/ZIP Code Phon e Number [id number] POINT OF CARE POINT [...] Medius documented in this encounter Care Teams Chicken Tender Relationship Specialty Start Date End Date Filipe Bose MD PCP - General 11/07/15 12/01/16 documented as of this encounter
--- OUTSIDE RECORDS SUMMARY | 2021-08-16 23:33 | XMS_ITS | Encounter Summary ---
:1990 Author Organization [facility] Address [address] [place] [address] Care Team Providers Name Role Phone Filipe Bose MD Primary Care Provider Reason for Visit Reason Onset Date Comments Appointment Related 01/16/2016 Encounter Details Date Type Department Care Team Description 01/16/2016 Telephone [facility] Dyllan Bose MD Appointment Related Family Medicine - [address] [place] [phone] [place] [address] [place] [address] [phone] Social History Tobacco Use Types Packs/Day Years [...] Notes Telephone Encounter - Mita Johnson - 01/16/2016 0855 EST Left message on machine about bumped appt with Apollo Jose on 01/16/16. Need to reschedule, NPV intake for 90 minutes. documented in this encounter Plan of Treatment Not on filedocumented as of this encounter Visit Diagnoses Not on filedocumented in this encounter Care Teams Mold Yard Crane Operator Relationship Specialty Start Date End Date Filipe Bose MD PCP - General 11/07/15 12/01/16 documented as of this encounter
--- OUTSIDE RECORDS SUMMARY | 2021-08-16 23:33 | XMS_ITS | Encounter Summary ---
:1990 Author Organization [facility] Address [address] [place] [address] Care Team Providers Name Role Phone Noe Kurtz MD Primary Care Provider Reason for Referral Consult (Routine/Next Available) - Closed Specialty Diagnoses / Procedures Referred By Contact Refer red To Contact Diagnoses Supervision of normal first Noe Kurtz MD [address] [place] [phone] Referral ID Status Reason Start Date Expiration Date Visits V isits Requested Authorized [id number] Closed Specialty 05/26/2012 1 1 Services Required Question Answer What areas would you like the CHT to focus on? Nutriti on Help Comments As we discussed in your visit today, florencia eone will be contacting you from the [facility] to schedule an sharmin ointment with you. If you do not hear from the CHT within a week please call the [facility] Team at [phone]. Reason for Visit Reason Onset Date Comments Referral Request 05/26/2012 Encounter Details Date Type Department Care Team Description 05/26/2012 Telephone [facility] Noe Kurtz MD Referral Request [facility] - [address] [phone] (Wo rk) Social History Tobacco Use [...] Telephone Encounter - Sulema James RN - 05/26/2012 1333 EDT Referral sent to the [facility] Team for nutritional help in and breast feeding Telephone Encounter - Marta Rubio - 05/26/2012 1305 EDT CHT calling checking on status of referral to CHT vegetable tier. documented in this encounter Plan of Treatment Scheduled Referrals Name Type Priority Associated Diagnoses Order S chedule AMB CONSULT Outpatient Referral Routine Supervision of Ordere d: [facility] normal first 05/26/2012 TEAM documented as of this encounter Visit Diagnoses Diagnosis Supervision of normal first - Primary documented in this encounter Care Teams Flattening Machine Operator Relationship Specialty Start Date End Date Noe Kurtz MD PCP - General 04/01/12 05/02/13 documented as of this encounter
--- OUTSIDE RECORDS SUMMARY | 2021-08-16 23:33 | XMS_ITS | Encounter Summary ---
:1990 Author Organization [facility] Address [address] [place] [address] Care Team Providers Name Role Phone Filipe Bose MD Primary Care Provider Reason for Referral Consult (Routine/Next Available) - Closed Specialty Diagnoses / Procedures Referred By Contact Refer red To Contact Orthopedic Surgery Diagnoses Chronic right shoulder pain Jessica Navarro Tilley Sports MD [facility] [address] [place], [place] [address] [place] [address] Referral ID Status Reason Start Date Expiration Date Visits V isits Requested Authorized Closed Specialty 11/26/2015 1 1 Services Required Question Answer Reason for Request: chronic right shoulder pain, history of trauma in 2004, has tried PT and corticosteroid inject ions onsult (Routine/Next Available) - Closed Specialty Diagnoses / Procedures Referred By Contact Refer red To Contact Family Medicine Diagnoses Paranoid schizophrenia (HCC-CMS) ([facility]) Jessica Navarro [facility] Medi cine MD [address] [place], [place] [address] [address] [place] [address] Referral ID Status Reason Start Date Expiration Date Visits V isits Requested Authorized [id number] Closed Specialty 11/26/2015 1 1 Services Required Question Answer Reason for Request: history of paranoid schizoph bren, was seen in [place] Reason for Visit Reason Comments New Patient Visit Encounter Details Date Type Department Care Team Description 11/26/2015 Office Visit [facility] Unknown, Prov MD alexey Paranoid schizophrenia ([facility]) (Primar y Dx); Family Medicine - Filipe Bose MD [address] [place] [phone] Chronic right shoulder pain [address] [address] Social History Tobacco Use Types Packs/Day Years [...] Taken Comments Blood Pressure - - Pulse 84 11/26/2015 1449 EDT Temperature - - Respiratory Rate - - Oxygen Saturation - - Inhaled Oxygen Concentration - - Weight 128.8 kg (284 lb) 11/26/2015 1449 EDT Height 163.2 cm (5' 4.25) 11/26/2015 1449 EDT Body Mass Index 48.37 11/26/2015 1449 EDT documented in this encounter Functional Status Cognitive Status Response Date of Assessment Because of a physical, mental, or emotional condition, do Ye s 09/04/2011 you have serious difficulty concentrating, remembering, or making decisions? (5 years old or older) documented as of this encounter Discharge Disposition Disposition Code Departure Means Destination Auto Discharge documented in this encounter Progress Notes Filipe Bose MD - 11/26/2015 1513 EDT Subjective: Patient ID: Mary Grace Harris is an 25 y.o. female. Chief Complaint Patient presents with ??? New Patient Visit HPI 25 yo female presents to clinic to reestablish care. Was diagnosed with paranoid schizophrenia [id number]. She had moved away and now is back in the [place] area after buying a foreclosed trailor. She was recently at [facility] for about a month about a year ago for her psychiatric problems. [place] visual and auditory hallucinations. Her psychiatrist there prescribed her medications which greatly improved her symptoms. She does still have hallucinations but much less pronounced. She is requesting a referral for psychiatry here. She also has chronic right shoulder pain, first started after suffering trauma playing football in 2004. Has tried physical therapy, acupuncture, chiropractor, joint injections all without much relief.She states the pain starts in her shoulder and goes up her neck and down her ribs. She had an MRI C-spine in 2010 which showed a mild protrusion in the C6-7 disc with no significant foraminal stenosis or central canal stenosis. Pap smear done in August 2015 was normal. Patient Active Problem List Diagnosis ??? Depression ??? Celiac disease ??? Anxiety ??? Thyroid nodule ??? Paranoid schizophrenia ??? Chronic pain syndrome [...] to Visit Medication Sig Dispense Refill ??? aripiprazole (ABILIFY) 20 mg tablet Take 1 Tab by mouth daily. 30 Tab 3 ??? LORazepam (ATIVAN) 1 mg tablet Take 0.5 Tabs by mouth every 4 hours as needed for Anxiety. 15 Tab 0 ??? ziprasidone (GEODON) 20 mg capsule Take 3 Caps by mouth 2 times daily. (Patient taking differently: Take by mouth 2 times daily. ) 20 Cap 0 No current facility-administered medications on file prior to visit. Allergies Allergen Reactions ??? Gluten Protein ??? Haldol [Haloperidol Lactate] paralysis ??? Paxil [Paroxetine Hcl] Nausea And Vomiting Social Social History Substance Use Topics ??? Smoking status: Current Some Day Smoker Packs/day: 0.25 Years: 10.00 ??? Smokeless tobacco: Never Used Comment: occasional ??? Alcohol use No Comment: occ Review of Systems Constitutional: Negative for chills, fever and malaise/fatigue. HENT: Negative for sore throat. Eyes: Negative for photophobia. Respiratory: Negative for cough, shortness of breath and wheezing. Cardiovascular: Negative for chest pain, palpitations and leg swelling. Gastrointestinal: Negative for abdominal pain, constipation, diarrhea, nausea and vomiting. Musculoskeletal: Positive for joint pain and neck pain. Negative for back pain. Neurological: Negative for sensory change, speech change and headaches. Psychiatric/Behavioral: Negative for depression and substance abuse. The patient is not nervous/anxious. - See HPI Objective: Visit Vitals ??? Pulse 84 ??? Ht 163.2 cm (64.25) ??? Wt (!) 128.8 kg (284 lb) ??? BMI 48.37 kg/m2 Physical Exam Constitutional: She is oriented to person, place, and time. She appears well- developed and well-nourished. No distress. Eyes: Conjunctivae and EOM are normal. Right eye exhibits no discharge. Left eye exhibits no discharge. No scleral icterus. Cardiovascular: Normal rate, regular rhythm, normal heart sounds and intact distal pulses. Exam reveals no gallop and no friction rub. No murmur heard. Pulmonary/Chest: Effort normal and breath sounds normal. No respiratory distress. She has no wheezes. Abdominal: Soft. She exhibits no distension. There is no tenderness. There is no rebound. Obese. Musculoskeletal: She exhibits tenderness. Right shoulder: She exhibits decreased range of motion and decreased strength. She exhibits no bonytenderness and normal pulse. Can not flex or abduct right shoulder past 90 degrees. Can not perform lift off test. Empty can testnegative. SILT M/U/R/Ax nerve distributions. No abnormalities noted with left shoulder. Neurological: She is alert and oriented to person, place, and time. Skin: Skin is warm and dry. No rash noted. She is not diaphoretic. No erythema. No pallor. Psychiatric: She has a normal mood and affect. Her behavior is normal. Thought content normal. Nursing note and vitals reviewed. Assessment: Plan: Mary Grace was seen today for new patient visit. Diagnoses and all orders for this visit: Paranoid schizophrenia: Controlled on her current medication regimen. Spent a month at [place]. She was referred to see psychiatry (Dr. Tran) here at [place]. Orders: - ziprasidone (GEODON) 60 mg capsule; Take 60 mg by mouth 2 times daily. - perphenazine (TRILAFON) 2 mg tablet; Take 2 mg by mouth daily. - perphenazine (TRILAFON) 4 mg tablet; Take 4 mg by mouth daily. - ziprasidone (GEODON) 80 mg capsule; Take 80 mg by mouth daily. - Amb Cons/Follow Up Psych (Adult PC/Fam Med/OB/Neuro or External Ref) Chronic right shoulder pain: She has chronic right shoulder pain following trauma in 2004. She has severely limited range of motion and mildly diminished strength. She has failed physical therapy, chiropractor, acupuncture, and joint injection therapy. She was referred to orthopedics for further management. Orders: - Amb Consult/Follow Up Orthopedics Other orders - clindamycin (CLEOCIN T) 1 % external solution; Apply topically 2 times daily. use thin film on affected area - medroxyPROGESTERone (DEPO-PROVERA) 150 mg/mL syringe; Inject 150 mg into the muscle every 12 weeks. - albuterol 90 mcg/actuation inhaler; Inhale 180 mcg as directed every 4 hours. - cyclobenzaprine (FLEXERIL) 10 mg tablet; Take 10 mg by mouth once. Return if symptoms worsen or fail to improve. She was instructed to make an appointment for a well woman visit at her discretion. Her last pap smear was in August 2015 which was normal. The patient exhibited understanding of these instructions and there were no barriers to learning. The patient was seen and discussed with Dr. Navarro who agrees with this plan. Jessica Aguirre - 11/26/2015 1500 EDT Attestation statement: I saw and examined the patient on the day of this service and agree with the findings and plan of care documented in the resident's note. Jessica Navarro MD Family Medicine Attending 12/05/2015 15:49 documented in this encounter Plan of Treatment Scheduled Referrals Name Type Priority Associated Diagnoses Order S chedule AMB CONS/FOLLOW UP Outpatient Referral Routine Paranoid Or dered: PSYCH (ADULT PC/FAM schizophrenia 016 MED/OB/NEURO OR ([facility]) EXTERNAL REF) AMB CONS/FOLLOW UP Outpatient Referral Routine Chronic right O rdered: ORTHOPEDICS shoulder pain 11/26/2015 documented as of this encounter Visit Diagnoses Diagnosis Paranoid schizophrenia ([facility]) ([facility]) - Primary Paranoid schizophrenia, unspecified cond ition Chronic right shoulder pain Pain in joint, shoulder region documented in this encounter Historical Medications This list may reflect changes made after this encounter. Medication Sig Dispensed Refills Start Date End Date ziprasidone (GEODON) 80 mg Take 80 mg by 0 02/26/2016 capsuleIndications: Paranoid mouth daily. schizophrenia ([facility]) ([facility]) perphenazine (TRILAFON) 4 mg Take 4 mg by 0 02/26/2016 tabletIndications: Paranoid mouth as needed schizophrenia ([facility]) (can take 1-2 ([facility]) tabs PRN in addition to her 2 mg (maximum 10 mg dose)). perphenazine (TRILAFON) 2 mg Take 2 mg by 0 02/26/2016 tabletIndications: Paranoid mouth daily. schizophrenia ([facility]) ([facility]) ziprasidone (GEODON) 60 mg Take 120 mg by 0 02/26/2016 capsuleIndications: Paranoid mouth at bedtime. schizophrenia ([facility]) ([facility]) cyclobenzaprine (FLEXERIL) Take 10 mg by 0 02/26/2016 10 mg tablet mouth once. albuterol 90 mcg/actuation Inhale 180 mcg as 0 12/30/2015 inhalerIndications: inhale 2 directed every 4 puffs before exercise hours. medroxyPROGESTERone Inject 150 mg 0 (DEPO-PROVERA) 150 mg/mL into the muscle syringe every 12 weeks. clindamycin (CLEOCIN T) 1 % Apply topically 2 0 12/30/2015 external solution times daily. use thin film on affected area added in this encounter Care Teams Route Specialist Relationship Specialty Start Date End Date Filipe Bose MD PCP - General 11/07/15 12/01/16 documented as of this encounter
--- OUTSIDE RECORDS SUMMARY | 2021-08-16 23:33 | XMS_ITS | Encounter Summary ---
:1990 Author Organization [facility] Address [address] [place] [address] Care Team Providers Name Role Phone Filipe Bose MD Primary Care Provider Reason for Visit Reason Onset Date Comments Appointment Related 01/06/2016 Encounter Details Date Type Department Care Team Description 01/06/2016 Telephone [facility] Dyllan Bose MD Appointment Related Family Medicine - [address] [place] [phone] [place] [address] [place] [address] [phone] Social History Tobacco Use Types Packs/Day Years [...] Notes Telephone Encounter - Mita Johnson - 01/06/2016 1152 EDT Spoke with patient about bumped appointment on 02/12/[address] Tran. She will discuss with her PCP at her next scheduled appointment. documented in this encounter Plan of Treatment Not on filedocumented as of this encounter Visit Diagnoses Not on filedocumented in this encounter Care Teams Caustic Room Operator Relationship Specialty Start Date End Date Filipe Bose MD PCP - General 11/07/15 12/01/16 documented as of this encounter
--- OUTSIDE RECORDS SUMMARY | 2021-08-16 23:33 | XMS_ITS | Encounter Summary ---
:1990 Author Organization [facility] Address [address] [place] [address] Care Team Providers Name Role Phone Filipe Bose MD Primary Care Provider Reason for Visit Reason Comments Injections Labs Only POCT UPT , prior to depo inj ection Encounter Details Date Type Department Care Team Description 12/10/[address] [facility] Unknown, Salma blackburn MD Encounter for Family Medicine - Nurse, [facility] Benjy , RN contraceptive [facility], unspecified [address] contrace[place] [address] type (Primary Dx) [phone] Social History Tobacco Use Types Packs/Day Years [...] Discharge documented in this encounter Progress Notes Monica Alexander LPN - 12/10/2015 1345 EDT POCT UPT done , results negative . Monica Alexander LPN 12/10/2015 15:16 Patient Education Topic: medroxyprogesterone 150 mg IM given , uncertain of last injection , UPT done. Pt instructed to have follow up in 12 weeks for next injection Method: Handout Taught to: Patient Barriers: None Outcomes: verbalized understanding Signature: Monica Alexander LPN 12/10/2015 15:17 I was supervised by Dr Urena who was present and immediately available in the office suite. Monica Alexander LPN 12/30/2015 8:42 documented in this encounter Plan of Treatment Not on filedocumented as of this encounter Visit Diagnoses Diagnosis Encounter for contraceptive management, unspecified contraceptive encounter type - Primary documented in this encounter Administered Medications Inactive Administered Medications - up to 3 most recent administrations Medication Order MAR Action Action Date Dose Rate Site medroxyPROGESTERone Given 12/10/2015 15:13 150 mg Right Gluteus (DEPO-PROVERA) injection 150 EDT Medius mg 150 mg, intramuscular, EVERY 12 WEEKS, 1 dose, First dose on Wed12/10/15 at 1500, Routine documented in this encounter Care Teams Motor Vehicle Assembly Supervisor Relationship Specialty Start Date End Date Filipe Bose MD PCP - General 11/07/15 12/01/16 documented as of this encounter
--- OUTSIDE RECORDS SUMMARY | 2021-08-16 23:33 | XMS_ITS | Encounter Summary ---
:1990 Author Organization [facility] Address [address] [place] [address] Care Team Providers Name Role Phone Noe Kurtz MD Primary Care Provider Reason for Referral Consult (Routine/Next Available) - Closed Specialty Diagnoses / Procedures Referred By Contact Refer red To Contact Diagnoses Paranoid schizophrenia ([facility]) ([facility]) Supervision of normal first Noe Kurtz MD [address] [place] [address] Referral ID Status Reason Start Date Expiration Date Visits V isits Requested Authorized [id number] Closed Specialty 06/08/2012 1 1 Services Required Question Answer Reason for Referral: Parental:, Health Concern Comments Would like to involve [facility], especially VN A and social supports if possible. Patient needs vna assistance for medication callie gement and pre- counseling in setting of psychiatric disease. Reason for Visit Reason Comments Medication Management Stopped taking abilify becau se it made her anxious and panicky. Encounter Details Date Type Department Care Team Description 06/07/2012 Routine [facility] Jim Quezada MD [address] [place] [phone] [place]: 32w6d [facility] Noe Kurtz MD [address] [place] [address] [address] [place] [address] Social History Tobacco Use Types Packs/Day Years Used Date Current Some Day Smoker 0.25 9 Smokeless Tobacco: Never Used Comments: occasional Alcohol Use Standard Drinks/Week Comments No 0 (1 standard drink = 0.6 oz pure alcoho l) occ Sex Assigned at Date Recorded Not on file documented as of this encounter Last Filed Vital Signs Vital Sign Reading Time Taken Comments Blood Pressure 128/78 06/07/2012 1555 EDT Pulse - - Temperature - - Respiratory Rate - - Oxygen Saturation - - Inhaled Oxygen Concentration - - Weight 117.9 kg (260 lb) 06/07/2012 1555 EDT Height - - Body Mass Index 43.27 04/05/2012 1400 EST documented in this encounter Functional Status Cognitive Status Response Date of Assessment Because of a physical, mental, or emotional condition, do Ye s 09/04/2011 you have serious difficulty concentrating, remembering, or making decisions? (5 years old or older) documented as of this encounter Progress Notes Jessica Navarro - 06/09/2012 1331 EDT Attestation statement: I discussed the patient with the resident/fellow at the time of the visit andagree with the findings and plan of care. Jessica Navarro MD 06/09/2012 13:31 Noe Morgan MD - 06/07/2012 1622 EDT 30-35 Weeks Subjective: Mary Grace Harris is a 21 y.o. female at 32w6d here for a visit. Patient reports no complaints Some tightness of chest. + FM, no VB, no LOF Patient stopped taking abilify because of decreased sleep x 3 days. Boyfriend rigo andriy. Saw erin sands in office. Still without psychiatrist. Wants to know why she needs abilify. Contractions [place] padilla Movement present Objective: Filed Vitals: 06/07/12 1555 BP: 128/78 Weight: 117.935 kg (260 lb) Additional exam: FH 33 cm FHTs: 160 Assessment: 1. IUP at 32w6d: S=D 2 Additional assessment: growth scan reviewed and noted to be wnl. medicine appointment scheduled. 3. Signs and symptoms of labor reviewed 4. Paranoid Schizophrenia - still most important issue. Very difficult to manage. Advised Mary Grace to take 1/2 tab of abilify (10mg). This lower dose may have less sedation. Strongly advised not to discontinue. Will try to obtain vna support. Plan: 1. Problem list reviewed and updated. 2. Signs and symptoms of labor reviewed. 4. Follow-up in 1 weeks hShahab ashby - 06/07/2012 1556 EDT Nausea or vomiting. No cramping bleeding or discharge. Pt reports swelling in hands and feet. Positive baby movement. Pulse: 112 bpm Temp: 97.0F documented in this encounter Plan of Treatment Scheduled Referrals Name Type Priority Associated Diagnoses Order S chedule AMB CONSULT TO Outpatient Referral Routine Paranoid schizophre vesta Ordered: [facility]DR[facility] ([facility] 06/08/2012 [facility] [facility] Supervision of normal first documented as of this encounter Visit Diagnoses Diagnosis Supervision of normal first - Primary Paranoid schizophrenia ([facility]) ([facility]) Paranoid schizophrenia, unspecified cond ition documented in this encounter Care Teams Metallic Yarn Slitting Machine Operator Relationship Specialty Start Date End Date Noe Kurtz MD PCP - General 04/01/12 05/02/13 documented as of this encounter
--- OUTSIDE RECORDS SUMMARY | 2021-08-16 23:33 | XMS_ITS | Encounter Summary ---
:1990 Author Organization [facility] Address [address] [place] [address] Care Team Providers Name Role Phone Filipe Bose MD Primary Care Provider Encounter Details Date Type Department Care Team Description 03/13/2016 Abstract [facility] Family Moon Bose MD [address] [phone] [place] [id number] [phone] Social History Tobacco Use Types Packs/Day Years [...] on filedocumented in this encounter Care Teams Beauty Advisor Relationship Specialty Start Date End Date Filipe Bose MD PCP - General 11/07/15 12/01/16 documented as of this encounter
--- OUTSIDE RECORDS SUMMARY | 2021-08-16 23:33 | XMS_ITS | Encounter Summary ---
:[address] [facility] Address [address] [place] [address] Care Team Providers Name Role Phone Filipe Bose MD Primary Care Provider Encounter Details Date Type Department Care Team Description 03/13/2016 Orders Only [facility] Ernestine Polanco Encount er for Family Medicine - RN surveillan ce of [place] injectable contraceptive [address] (Primary Dx) [place] [address] Social History Tobacco Use Types [...] documented as of this encounter Progress Notes Ernestine Polanco RN - 03/13/2016 0946 EST Order for depo provera injection and POCT UPT signed. documented in this encounter Plan of Treatment Not on filedocumented as of this encounter Visit Diagnoses Diagnosis Encounter for surveillance of injectable contraceptive - Primary Surveillance of other previously prescri bed contraceptive method documented in this encounter Orders Medications Ordered That Might Not Have Count Last Ord ered Date First Ordered Date Been Administered medroxyPROGESTERone (DEPO-PROVERA) 1 03/13/2016 injection 150 mg documented in this encounter Care Teams Automotive Parts Interpreter Relationship Specialty Start Date End Date Filipe Bose MD PCP - General 11/07/15 12/01/16 documented as of this encounter
--- OUTSIDE RECORDS SUMMARY | 2021-08-16 23:33 | XMS_ITS | Encounter Summary ---
:1990 Author Organization [facility] Address [address] [place] [address] Care Team Providers Name Role Phone Filipe Bose MD Primary Care Provider Reason for Visit Reason Onset Date Comments Medications Refill 03/18/2016 Encounter Details Date Type Department Care Team Description 03/18/2016 Refill [facility] Dyllan Bose MD Medications Refill Family Medicine - [address] [place] [id number] [place] [address] Drive [place], [place] [id number] [phone] Social History Tobacco Use Types Packs/Day Years [...] needed for Anxiety. Daily Max: 3 mg documented in this encounter Miscellaneous Notes Telephone Encounter - Celine Kohler - 03/18/2016 1525 EST Medication(s) Requested: Lorazepam # 15 w/ 1 RF 02/26/16 ДМИТРИЙ 01/17/16 No F/U Scheduled Preferred Pharmacy: [facility] Is patient out of medication? Unknown Celine Kohler 03/18/2016 15:25 documented in this encounter Plan of Treatment Not on filedocumented as of this encounter Visit Diagnoses Not on filedocumented in this encounter Discontinued Medications Medication Sig Discontinue Reason Start Date End Date LORazepam (ATIVAN) 1 mg Take 1 Tab by mouth Reorder 02/26/2016 03/18/2016 tablet 3 times daily as needed for Anxiety. Daily Max: 3 mg documented as of this encounter Care Teams Health Nurse Relationship Specialty Start Date End Date Filipe Bose MD PCP - General 11/07/15 12/01/16 documented as of this encounter
--- OUTSIDE RECORDS SUMMARY | 2021-08-16 23:33 | XMS_ITS | Encounter Summary ---
:1990 Author Organization [facility] Address [address] [place] [address] Care Team Providers Name Role Phone Noe Kurtz MD Primary Care Provider Reason for Visit Reason Comments Weight Gain Would like to talk about amira ght gain with olanzapine Back Pain Threw back out yesterday. Immunizations Would like Tdap today Encounter Details Date Type Department Care Team Description 04/22/2012 Office Visit [facility] Unknown, Prov MD alexey Need for Tdap vaccination (Primary Dx); Family Medicine - Noe Kurtz MD [address] [place] [id number] Paranoid schizophrenia ([facility]); Benjy Supervision of normal first ; [address] [place] [address] Social History Tobacco Use Types Packs/Day Years Used Date Current Some Day Smoker 0.25 9 Smokeless Tobacco: Never Used Comments: occasional Alcohol Use Standard Drinks/Week Comments No 0 (1 standard drink = 0.6 oz pure alcoho l) occ Sex Assigned at Date Recorded Not on file documented as of this encounter Last Filed Vital Signs Vital Sign Reading Time Taken Comments Blood Pressure 124/64 04/22/2012 1612 EST Pulse 112 04/22/2012 1612 EST Temperature 36.8 ??C (98.2 ??F) 04/22/2012 1612 EST Respiratory Rate - - Oxygen Saturation - - Inhaled Oxygen Concentration - - Weight 115.2 kg (254 lb) 04/22/2012 1612 EST With shoes Height - - Body Mass Index 42.27 04/05/2012 1400 EST documented in this encounter Functional Status Cognitive Status Response Date of Assessment Because of a physical, mental, or emotional condition, do Ye s 09/04/2011 you have serious difficulty concentrating, remembering, or making decisions? (5 years old or older) documented as of this encounter Ordered Prescriptions Prescription Sig Dispensed Refills Start Date End Date aripiprazole (ABILIFY) 10 Take 0.5 Tabs by 30 Tab 0 04/0805/18/2012 mg tablet mouth daily. olanzapine (ZYPREXA) 10 mg Take 1 Tab by 60 Tab 1 201205/18/2012 tabletIndications: Paranoid mouth 2 times schizophrenia (HCC-CMS) daily. (HCC) documented in this encounter Progress Notes Gosia Loza MD - 04/25/2012 1011 EST Attestation statement for office patient not seen by attending: I discussed the patient with the resident/fellow at the time of the visit and agree with the findings and the plan of care documented in the resident's/fellow's note. Very complicated OB patient. While I would prefer to have Psych managing her meds, this seems to be a hold up in patient's care. Zyprexa is known for it's significant weight gain and pt may find Abilify to be more weight neutral. Will start cross-tapering her but hoping toget her into see Psych in the meantime. Other than excessive weight gain and mental health issues, otherwise progressing okay. Gosia Loza MD Family Medicine Attending 04/25/2012 10:11 Noe Matias MD - 04/24/2012 1246 EST Subjective: Zina Harris is being seen today for her obstetrical visit. She is a 21y/o @ 26.2 wks by 16 week ultrasound. She is accompanied by her FOB (Mike). Her has been complicated by her Paranoid Schizophrenia and significant weight gain in . At today's visit Zina is very upset and tearful. She reports that she has gained almost 100lbs during this from a pre- weight of (160lbs). She attributes this to the olanzapine medication that she has been taking. She reports that a psychiatrist at [facility] placed her on this duringher . Patient is quite upset about her weight gain and reports that she is thinking about stopping the medication altogether. She also does not think that the medication has been helping her from a psychiatric standpoint (this is in contrast to reports from her grandmother who indicated that it has helped a lot in the past). Unfortunately Zina still has not gone to [facility]. This is despite my strong advice that she walk in to the [facility] at 8am on MWF for an assessment so that she can get connected to the mental health services (counseling/psycho-pharm) that she badly needs. When Zina is out of the room her partner reports that she has been having thoughts of suicide. When confronted about this [place] admits that she has had some passing thoughts about killing herself by jumping off a building. She says she feels this way because of her weight gain and because of her grandparents fighting. She does not have concrete details of a plan. She identifies her baby and her boyfriend as supports that would deter her taking her life. She contracts for safety informing myself that if she feels those thoughts again she will contact our office or the crisis center. From a standpoint. She reports + FM, no VB, no LOF, no CTXs. Objective: BP 124/64 Pulse 112 Temp(Src) 36.8 ??C (98.2 ??F) (Oral) Wt 115.214 kg (254 lb) She has gained 20 lbs in the past 1 month. FHT: 150 BPM Uterine Size: 28cm S>D Assessment: She is a 21y/o @ 26.2 wks by 16 week ultrasound. She is accompanied by her FOB (Mike). Her has been complicated by her Paranoid Schizophrenia and significant weight gain in . She is a high risk given her uncontrolled mental illness, unstable social situation and her considerable weight gain during . Plan: Paranoid Schizophrenia - Patient's mental illness is poorly controlled at this point. She has been very depressed and reports some thoughts of suicide as well as auditory and visual hallucinations. Patient did contract for safety in the office today and seemed re-assured at the conclusion of our visit. I personally had patient call crisis center and spoke with a member of their staff informing them of my concern re Zina's reports of SI. We were informed that an on-call staff member would be calling them back on their mobile phone within 30 minutes. I have been very disappointed that Zina has not gone to the [facility] despite my strong advise to do so to her and her grandmother during our last few visits. Her partner indicates that he will call in late to work to take her there Wednesday morning. Her mental illness and her weight gain, from her psychiatric medications, are very importantrisk factors to her and her . I have told zina that I am not Comfortable adjusting her p sychiatric medications and that is one of the primary reasons to connect with [facility] and hopefully a psychopharmacologist (unfortinately there are no appointments available soon at [facility]). Given the lack of advice from a psychopharmacologist, Zina's weight gain, and her threat's to stop he me dication outright I have decided to attempt to bridge Zina to another antipsychotic medication Abilify as this has been associated with less weight gain. The benefits of controlling Zina's schizophrenia clearly outweigh any potential harm from this medication to fetus. -Will start to titrate Olanzapiene down (30mg -- 20mg divided in 2-10mg doses) Will start abilify 5mg qhs. -Will continue to bridge at next office visit in 1 week. -Am hopefull Zina will get connected at with psychiatric services at [facility]. Our office and myself have called them and they are aware of her - she just needs to walk in for assessment. Also encouraged use of crisis line if needed in the event of worsening psychiatric condition. - I am concerned about patient's weight gain and S>D. I note that OB reccommended f/u detailed growth scan in 3rd trimester and I will proceed with ordering this at next office visit. - Early 1 hr glucola was nl 123, will re-check at 28wks. - medicine consult will be needed in 3rd trimester. - CHT has met with patient to discuss nutrition and hopefully assist patient with connecting to community resources - Tdap given. Patient discussed with Attending Noe Ortega MD, MPH PGY - 2 Family Medicine, 2176 documented in this encounter Plan of Treatment Not on filedocumented as of this encounter Visit Diagnoses Diagnosis Need for Tdap vaccination - Primary Need for prophylactic vaccination with c ombined adjmpsfvzv-mqbpeuu-hqwqfeqrf (DTP) vaccine Paranoid schizophrenia (HCC-CMS) ([facility]) Paranoid schizophrenia, unspecified cond ition Supervision of normal first Supervision of normal Supervision of other normal documented in this encounter Discontinued Medications Medication Sig Discontinue Reason Start Date End Date olanzapine (ZYPREXA) 20 mg Take 1 Tab by 03/22/2012 04/22/2012 tabletIndications: mouth daily. Paranoid schizophrenia (HCC-CMS) ([facility]) documented as of this encounter Orders Immunization/Injection Count Last Ordered Date First O rdered Date TDAP VACCINE =>7YO IM 1 04/22/2012 documented in this encounter Care Teams Senior Dentist Relationship Specialty Start Date End Date Noe Kurtz MD PCP - General 04/01/12 05/02/13 documented as of this encounter
--- OUTSIDE RECORDS SUMMARY | 2021-08-16 23:33 | XMS_ITS | Encounter Summary ---
:1990 Author Organization [facility] Address [address] [place] [address] Care Team Providers Name Role Phone Filipe Bose MD Primary Care Provider Reason for Visit Reason Comments Other Encounter Details Date Type Department Care Team Description 02/27/[address] [facility] Family Balwinder perez, Sana Henry MD Other Medicine - [address] [place] [address] [place], [place] [address] [phone] Social History Tobacco Use Types Packs/Day Years [...] this encounter Miscellaneous Notes Telephone Encounter - Fabi Hill - 02/27/2016 0904 EST Medication(s) Requested: [facility]: [facility] Last Refill Date: Refilled today already at ov Last Visit Date: 01/16 Next Visit Date: Visit date not found Is patient out of medication? no documented in this encounter Plan of Treatment Not on filedocumented as of this encounter Visit Diagnoses Diagnosis Paranoid schizophrenia ([facility]) ([facility]) - Primary Paranoid schizophrenia, unspecified cond ition documented in this encounter Care Teams Mid Level Project Manager Relationship Specialty Start Date End Date Filipe Bose MD PCP - General 11/07/15 12/01/16 documented as of this encounter
--- OUTSIDE RECORDS SUMMARY | 2021-08-16 23:33 | XMS_ITS | Encounter Summary ---
:1990 Author Organization [facility] Address [address] [place] [address] Care Team Providers Name Role Phone Filipe Bose MD Primary Care Provider Reason for Visit Reason Comments Cough One week of cough and vomiti ng, chills Emesis Encounter Details Date Type Department Care Team Description 12/02/2015 Emergency [facility] Ramesh Willard PA-C [address] [facility] [place] [address] Conjunctivitis of left Emergency Department Emergency, MD Chelsy eye, unspecified - [facility] conjunctivitis type [address] [facility] (Primary Dx) [place], [place] [id number] Social History Tobacco Use Types Packs/Day Years Used Date Current Every Day Smoker 0.25 10 Smokeless Tobacco: Never Used Comments: occasional Alcohol Use Standard Drinks/Week Comments No 0 (1 standard drink = 0.6 oz pure alcoho l) occ Sex Assigned at Date Recorded Not on file documented as of this encounter Last Filed Vital Signs Vital Sign Reading Time Taken Comments Blood Pressure 146/81 12/02/2015 1939 EDT Pulse 86 12/02/2015 193 EDT Temperature 36.7 ??C (98.1 ??F) 12/02/2015 1533 EDT Respiratory Rate - - Oxygen Saturation 98% 12/02/2015 1939 EDT Inhaled Oxygen Concentration - - Weight 136.1 kg (300 lb) 12/02/2015 1533 EDT Height 162.6 cm (5' 4) 12/02/2015 1533 EDT Body Mass Index 51.49 12/02/2015 1533 EDT documented in this encounter Functional Status Cognitive Status Response Date of Assessment Because of a physical, mental, or emotional condition, do Ye s 09/04/2011 you have serious difficulty concentrating, remembering, or making decisions? (5 years old or older) documented as of this encounter Discharge Diagnoses Diagnosis H10.9 Unspecified conjunctivitis-H10.9[I CD-10-CM] J45.909 Unspecified asthma, uncomplicate d-J45.909[ICD-10-CM] F17.200 Nicotine dependence, unspecified , uncomplicated-F17.200[ICD-10-CM] documented in this encounter Medications at Time of Discharge Medication Sig Dispensed Refills Start Date End Date albuterol 90 mcg/actuation Inhale 180 mcg as 0 12/30/2015 inhalerIndications: inhale 2 directed every 4 puffs before exercise hours. aripiprazole (ABILIFY) 20 mg Take 1 Tab by 30 Tab 3 05/0601/17/2016 tabletIndications: Paranoid mouth daily. schizophrenia ([facility]) ([facility]) clindamycin (CLEOCIN T) 1 % Apply topically 2 0 12/30/2015 external solution times daily. use thin film on affected area cyclobenzaprine (FLEXERIL) Take 10 mg by 0 02/26/2016 10 mg tablet mouth once. LORazepam (ATIVAN) 1 mg Take 0.5 Tabs by 15 Tab 0 201302/26/2016 tablet mouth every 4 hours as needed for Anxiety. medroxyPROGESTERone Inject 150 mg 0 (DEPO-PROVERA) 150 mg/mL into the muscle syringe every 12 weeks. perphenazine (TRILAFON) 2 mg Take 2 mg by 0 02/26/2016 tabletIndications: Paranoid mouth daily. schizophrenia ([facility]) ([facility]) perphenazine (TRILAFON) 4 mg Take 4 mg by 0 02/26/2016 tabletIndications: Paranoid mouth as needed schizophrenia ([facility]) (can take 1-2 ([facility]) tabs PRN in addition to her 2 mg (maximum 10 mg dose)). ziprasidone (GEODON) 20 mg Take 3 Caps by 20 Cap 0 08/0702/27/2016 capsule mouth 2 times daily. ziprasidone (GEODON) 60 mg Take 120 mg by 0 02/26/2016 capsuleIndications: Paranoid mouth at bedtime. schizophrenia (HCC-CMS) (HCC) ziprasidone (GEODON) 80 mg Take 80 mg by 0 02/26/2016 capsuleIndications: Paranoid mouth daily. schizophrenia (HCC-CMS) (HCC) documented as of this encounter Discharge Disposition Disposition Code Departure Means Destination Comments Home or Self Care Car Home ambulated off unit with family, nad documented in this encounter ED Notes Emil Willard PA - 12/02/2015 1827 EDT DOS: 12/02/2015 Chief Complaint Patient presents with ??? Cough One week of cough and vomiting, chills ??? Emesis HPI The patient is a 25 y.o. female who presents today with Cough (One week of cough and vomiting, chills) and Emesis HPI Comments: 25-year-old female with history of schizophrenia, depression, and celiac disease presents today with acute onset of left eye pain and redness along with a non productive cough. Patient states she has also felt mildly nauseous and denies any pain at this time. Denies any changes in her vision. Patient states that she has sick contacts at home and has been having a dry cough. Patient denies taking anything for symptoms. States she woke up yesterday morning with her left eye crusted shut.Patient states they have otherwise been healthy denying any headache, lightheadedness, dizziness, ear pain, eye pain, fever, chills, vomiting, neck pain, back pain, chest pain, shortness of breath, abdominal pain, dysuria or difficulty ambulating. Cough Associated symptoms: eye discharge Associated symptoms: no chest pain, no chills, no ear pain, no fever, no headaches, no rash and no shortness of breath Emesis Associated symptoms: no abdominal pain, no chills, no diarrhea and no headaches Review of Systems Review of Systems Constitutional: Negative for chills and fever. HENT: Negative for dental problem, ear pain and sinus pressure. Eyes: Positive for pain, discharge and redness. Negative for photophobia and visual disturbance. Respiratory: Positive for cough. Negative for shortness of breath. Cardiovascular: Negative for chest pain. Gastrointestinal: Positive for nausea. Negative for abdominal pain, constipation, diarrhea and vomiting. Genitourinary: Negative for dysuria. Musculoskeletal: Negative for back pain and neck stiffness. Skin: Negative for rash. Neurological: Negative for syncope, light-headedness and headaches. Psychiatric/Behavioral: Negative for confusion. All other systems reviewed and are negative. The patient's past medical, family and social history was reviewed and updated as needed. Allergies Allergen Reactions ??? Gluten Protein ??? Haldol [Haloperidol Lactate] paralysis ??? Paxil [Paroxetine Hcl] Nausea And Vomiting Vital Signs Temp: 36.7 ??C (98.1 ??F) Pulse: 87 SpO2: 98 % BP: (!) 150/90 BP Device: BP Machine Patient Position: Sitting BP Cuff Location: Left arm O2 Device: None (Room air) Physical Exam Constitutional: She is oriented to person, place, and time. She appears well- developed and well-nourished. HENT: Head: Normocephalic and atraumatic. Right Ear: External ear normal. Left Ear: External ear normal. Nose: Nose normal. Eyes: EOM are normal. Pupils are equal, round, and reactive to light. Right eye exhibits no discharge. Left eye exhibits discharge. No foreign body present in the left eye. Left conjunctiva is injected. Neck: Normal range of motion. Neck supple. [...] reviewed. RESULTS EKG orders: None Radiology orders: CHEST PA AND LATERAL Imaging Reviewed. I have independently reviewed the images. There are no significant abnormalities ED Lab Results Labs Reviewed - No data to display Relevant Data Procedures ED COURSE A medical screening exam was performed. 25-year-old female with history of schizophrenia, depression, and celiac disease presents today withacute onset of left eye pain and redness along with a non productive cough. Physical exam as above. Chest x-ray ordered to evaluate for pneumonia. Zofran given for symptoms. Patient prescribed erythromycin for conjunctivitis. Follow-up with primary care provider symptoms persist or worsen. Patient appears hemodynamically stable with vital signs within normal limits and in no acute distress. Patient comfortable with plan. ASSESSMENT AND PLAN Final diagnoses: None DISPOSITION: No disposition on file The patient's pain was managed to an adequate level weighing risk vs. benefit of further medications. Upon departure from the Emergency Department, the patient's pain was 0 on a zero to ten scale. Condition at departure from the Emergency Department: Stable PCP: Filipe SOSA Number of Diagnoses or Management Options Amount and/or Complexity of Data Reviewed Review and summarize past medical records: yes Shireen Coyle was available for supervision. 12/02/2015 18:27 No flowsheet data found. documented in this encounter Plan of Treatment Not on filedocumented as of this encounter Procedures Procedure Name Priority Date/Time Associated Diagnosis Comme nts CHEST PA AND STAT 12/02/2015 18:12 Results for this LATERAL EDT procedure are i n the results section. documented in this encounter Results CHEST PA AND LATERAL (12/02/2015 18:12 EDT) Anatomical Region Laterality Modality Other Specimen Narrative [facility] [place] - 12/02/2015 18:39 EDT CHEST PA AND LATERAL ??12/02/2015 6:12 PM Clinical History/Comments: COUGH COMPARISON: 01/10/2011. TECHNIQUE: Frontal and lateral views of the chest w ere performed. FINDINGS: Soft tissues: ??Normal. Bones: Normal. Cardiac and mediastinal contours:Normal. Lungs: Normal. ?? Pleura/diaphragms:Normal. IMPRESSION: 1. ??Normal chest x-ray. Procedure Note Elkin Castañeda MD - 12/02/2015 CHEST PA AND LATERAL 12/02/2015 6:12 PM Clinical History/Comments: COUGH COMPARISON: 01/10/2011. TECHNIQUE: Frontal and lateral views of the chest w ere performed. FINDINGS: Soft tissues: Normal. Bones: Normal. Cardiac and mediastinal contours:Normal. Lungs: Normal. Pleura/diaphragms:Normal. IMPRESSION: 1. Normal chest x-ray. Performing Organization Address City/State/ZIP Code Phon e Number [facility] [place] documented in this encounter Visit Diagnoses Diagnosis Conjunctivitis of left eye, unspecified conjunctivitis type - Primary documented in this encounter Administered Medications Inactive Administered Medications - up to 3 most recent administrations Medication Order MAR Action Action Date Dose Rate Site erythromycin (ROMYCIN) 5 mg/gram (0.5 %) ophthalmic ointment left eye, 4 TIMES DAILY, 12 doses, First dose on Wed12/02/15 at 2100, Last dose on Soraya 12/05/15 at 1700 ondansetron 4 mg ODT tab STARTER PACK Given 12/02/2015 19:46 EDT 1 Package 1 Package, oral, NOW X1, 1 dose, On Wed12/02/15 at 1945, STAT documented in this encounter Active and Recently Administered Medications Times are shown in EDT. Scheduled Medication Order 11/30/2015 12/01/2015 12/02/2015 erythromycin (ROMYCIN) 5 mg/gram (0.5 %) ophthalmic ointment 2100 (Canceled Entry - Provider: Michael Stringer RN) left eye, 4 TIMES DAILY, 12 doses, First dose on Wed12/02/15 at 2100, Last dose on Soraya 12/05/15 at 1700 ondansetron 4 mg ODT tab STARTER PACK (COMPLETED) 1945 (Given - Provider: Michael Stringer RN) 1 Package, oral, NOW X1, 1 dose, Wed12/02/15 at 1945, STAT documented in this encounter Orders Medications Ordered That Might Not Have Count Last Ord ered Date First Ordered Date Been Administered erythromycin (ROMYCIN) 5 mg/gram (0.5 %) 1 016 ophthalmic ointment documented in this encounter Care Teams Cat Tender Relationship Specialty Start Date End Date Filipe Bose MD PCP - General 11/07/15 12/01/16 documented as of this encounter
--- OUTSIDE RECORDS SUMMARY | 2021-08-16 23:33 | XMS_ITS | Encounter Summary ---
:1990 Author Organization [facility] Address [address] [place] [address] Care Team Providers Name Role Phone Filipe Bose MD Primary Care Provider Reason for Visit Reason Onset Date Comments Medications Refill 01/09/2016 Encounter Details Date Type Department Care Team Description 01/09/2016 Refill [facility] Family Aisha Barnett, RHODA Medications Refill Medicine - [address] [address] Social History Tobacco Use Types [...] Telephone Encounter - Aisha Barnett, RN - 01/10/2016 0932 EDT Call to pt. Regarding message per Dr. Bose about psych med refills: Danika Bey her other psychiatrist told Dr. Bose she checked her chart and that she still has refills available for her medications at her former pharmacy. She should go to her current pharmacy and ask them to contact the pharmacy listed on her bottles to get the refills transferred over and she should have enough medication to last until February. She should sign a release of information for us to get her health records. We can do that when she sees me next week. Left message for pt. To call clinic to give above message. documented in this encounter Plan of Treatment Not on filedocumented as of this encounter Visit Diagnoses Diagnosis Paranoid schizophrenia (HCC-CMS) (HCC) - Primary Paranoid schizophrenia, unspecified cond ition documented in this encounter Care Teams Commercial Account Executive Relationship Specialty Start Date End Date Filipe Bose MD PCP - General 11/07/15 12/01/16 documented as of this encounter
--- OUTSIDE RECORDS SUMMARY | 2021-08-16 23:33 | XMS_ITS | Encounter Summary ---
:1990 Author Organization [facility] Address [address] [place] [address] Care Team Providers Name Role Phone Noe Kurtz MD Primary Care Provider Encounter Details Date Type Department Care Team Description 04/29/2012 Community Health Team [facility] Manuel Thomas [address], [address] [place], [place] [phone] Social History Tobacco Use Types Packs/Day Years [...] documented as of this encounter Progress Notes Lili Thomas - 04/29/2012 1031 EST ..Total Time: 2 min Referrals: [facility] Follow-Up: I will follow up Status: Active Outreach follow up call to patient. Left voicemail requesting call back . documented in this encounter Plan of Treatment Not on filedocumented as of this encounter Visit Diagnoses Not on filedocumented in this encounter Care Teams Build Engineer Relationship Specialty Start Date End Date Noe Kurtz MD PCP - General 04/01/12 05/02/13 documented as of this encounter
--- OUTSIDE RECORDS SUMMARY | 2021-08-16 23:33 | XMS_ITS | Encounter Summary ---
:[address] [facility] Address [address] [place] [address] Care Team Providers Name Role Phone Filipe Bose MD Primary Care Provider Reason for Visit Reason Onset Date Comments Appointment Related 01/01/2016 Encounter Details Date Type Department Care Team Description 01/01/2016 Telephone [facility] Dyllan Bose MD Appointment Related Family Medicine - [address] [place] [phone] [place] [address] [phone] Social History Tobacco Use Types Packs/Day Years [...] Notes Telephone Encounter - Celine Kohler - 01/01/2016 0906 EDT Images from the original note were not included. Filipe Bose MD [facility] ? Please schedule the patient to see Dr. Tran with psychiatry (see telephone conversation between Dr. Tran and Aisha Barnett). I placed the referral in November but it looks like it never happened. She needs to reestablish psychiatric care since she is out of her psych meds. Thanks, Ephraim Note sent to Dr. Bose, we have reached out to offer this patient a cancellation spot twice for this patient, either declined or was unreachable both times. She has been scheduled for 02/12/[address] Tran, a voicemail was left and a letter will be sent. documented in this encounter Plan of Treatment Not on filedocumented as of this encounter Visit Diagnoses Not on filedocumented in this encounter Care Teams Vegetable Harvest Worker Relationship Specialty Start Date End Date Filipe Bose MD PCP - General 11/07/15 12/01/16 documented as of this encounter
--- OUTSIDE RECORDS SUMMARY | 2021-08-16 23:33 | XMS_ITS | Encounter Summary ---
:1990 Author Organization [facility] Address [address] [place] [address] Care Team Providers Name Role Phone Noe Kurtz MD Primary Care Provider Reason for Visit Reason Comments New Patient Visit Encounter Details Date Type Department Care Team Description 06/15/2012 Office Visit Medical & [place], Rissa p ain syndrome (Primary Dx); Developmental Follow-Up MD Scarlet Toba financial accountant dependence; - [facility] Paranoid schizophrenia ([facility]) [address] [place], [place] [phone] Social History Tobacco Use Types Packs/Day Years [...] as of this encounter Patient Instructions Patient InstructionsScarlet Washburn MD - 06/15/2012 11:[address] Scarlet Joseph [phone] ([facility] documented in this encounter Progress Notes Scarlet Washburn MD - 06/15/2012 1115 EDT Images from the original note were not included. Medical & Developmental Follow Up Scarlet Washburn MD, Ana Laura Adkins, PAGEANT DIRECTOR, Kierra Snyder, RN, Dominique [place] [phone] Thank you for referring Mary Grace Harris to us for counseling regarding in utero opioid exposure and exposure to aripiprazole. As you know, she is a 21 y.o. year old with an estimated date of delivery of July 27, 2012 and a last menstrual period of 10/21/2011. She is 1, para 0, blood type O pos, antibody screen negative, rubella immune, varicella negative, hep B surface antigen negative, hep C antibody not available, HIV negative, VDRL negative, GC negative, chlamydia negative. She was accompanied today by the father of the baby, Vaughn Pro. Past Medical History Diagnosis Date ??? Tendinitis ??? Torticollis ??? Laceration 12/04/06 left 5th digit tendon,nerve laceration ??? Myofascial pain right shoulder and neck myofascial pain ??? Psychiatric problem anxiety ??? Mental disorder ??? Fibromyalgia ??? Scoliosis Past Surgical History Procedure Date ??? Finger surgery left OB History Grav Para Term Abortions TAB SAB Ect Mult Living 1 # Outc Date GA Lbr Edi/2nd Wgt Sex Del Anes PTL Lv 1 CUR Lives in [place], just recently diagnosed with paranoid schizophrenia, was going to [place], very excited about baby being. On disability right now, interested in art - oil painting. Old football injury. Tendonitis, torticollis, scoliosis, problems with sciatica. Vicodin for 4-5 years, then dilaudid was on hydromorphone when she got . Admitted to [facility] - not sleeping, auditory hallucinations. Anxiety disorder. Took herself off dilaudid. Went to [facility]. Then to [facility]. Vaughn is a transcription coordinator, not working right now. Was working at [employer]. Degree in psychology. 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 Mary Grace has now been switched to [employer]. Keri is therapist through [facility], she sees Keri at [facility]. During this , Mary Grace has had a lot of pain. At this time, Vaughn has to help her get dressed due to the pain. Her activity is very much restricted by the pain. Drug History Mary Grace has no history of substance abuse. Drug Use During During this , she has had no use of any drugs. Has 3 puffs / a day. 1 ppweek prior to . No marijuana. No cocaine. No alcohol. Opioid Agonist Therapy none Outpatient Prescriptions Marked as Taking for the 06/15/12 encounter (Office Visit) with Scarlet Washburn MD Medication Sig Note Dispense Refill ??? aripiprazole (ABILIFY) 20 mg tablet Take 1 Tab by mouth daily. 06/15/2012: Per patient- current dose 10 mg 30 Tab 3 ??? Vit-Iron Fumarate-FA ( 19) 29-1 mg Chew Take 1 Cap by mouth daily. 30 Cap 5 Living Situation Living at grandparents, looking for place in [facility]. They will be having a boy, whose name(s) will be Jose Pro. She plans to breastfeed and she has not chosen a english professor yet as she is unsure where she will be living; she hopes [facility]will [facility] the [facility]. It was a pleasure to meet Mary Grace and Vaughn. There is no contraindication for in thesetting of being treated with aripiprazole. However, we did address her pain and she had assumed that her pain could not be treated with opioids during . As there is considerable limitation ofher ability to move, and she is quite depressed about her weight gain on the aripiprazole, I explained that there was no contraindication to being on opioids to treat her pain, as long as her PCP agreed. I called Dr. Kurtz and he will explore this with Mary Grace. In the event that she is on opioids, Iexplained that there was a minimum of 96 hours, or four days, hospital stay for her for RIA mo nitoring. I also explained there was less than a 30-50% chance of her baby requiring treatment for abstinence syndrome. I gave her a Care Notebook and we will follow up with Mary Grace and Vaughn in 4 weeks. I spent a total of 60 minutes in face to face time with this patient today and 40 minutes of that time was spent counseling the patient on the risks and treatment options for RIA. documented in this encounter Plan of Treatment Not on filedocumented as of this encounter Visit Diagnoses Diagnosis Chronic pain syndrome - Primary Tobacco dependence Tobacco use disorder Paranoid schizophrenia (HCC-CMS) (HCC) Paranoid schizophrenia, unspecified cond ition documented in this encounter Care Teams Data Developer Relationship Specialty Start Date End Date Noe Kurtz MD PCP - General 04/01/12 05/02/13 documented as of this encounter
--- OUTSIDE RECORDS SUMMARY | 2021-08-16 23:33 | XMS_ITS | Encounter Summary ---
:1990 Author Organization [facility] Address [address] [place] [address] Care Team Providers Name Role Phone Noe Kurtz MD Primary Care Provider Reason for Visit Reason Comments Decreased Movement since yesterday Encounter Details Date Type Department Care Team Description 06/24/2012 Office Visit [facility] Unknown, Prov MD alexey , normal first (Primary Dx); Family Medicine - Noe Kurtz MD [address] [place] [phone] Decreased movement [address] [phone] Social History Tobacco Use Types Packs/Day Years Used Date Current Some Day Smoker 0.25 10 Smokeless Tobacco: Never Used Tobacco Cessation: Ready to Quit: No Comments: occasional Alcohol Use Standard Drinks/Week Comments No 0 (1 standard drink = 0.6 oz pure alcoho l) occ Sex Assigned at Date Recorded Not on file documented as of this encounter Last Filed Vital Signs Vital Sign Reading Time Taken Comments Blood Pressure 122/84 06/24/2012 0924 EDT Pulse 88 06/24/2012 0924 EDT Temperature 36.3 ??C (97.3 ??F) 06/24/2012 0924 EDT Respiratory Rate - - Oxygen Saturation - - Inhaled Oxygen Concentration - - Weight 116.6 kg (257 lb) 06/24/2012 0924 EDT Height - - Body Mass Index 42.77 04/05/2012 1400 EST documented in this encounter Functional Status Cognitive Status Response Date of Assessment Because of a physical, mental, or emotional condition, do Ye s 09/04/2011 you have serious difficulty concentrating, remembering, or making decisions? (5 years old or older) documented as of this encounter Discharge Disposition Disposition Code Departure Means Destination Admitted to this Hospital documented in this encounter Progress Notes Jessica Navarro - 06/24/2012 1650 EDT Attestation statement: I discussed the patient with the resident/fellow at the time of the visit andagree with the findings and plan of care. Pt with decreased FM over past 2 days. Advised need additional testing. Agree NST/BPP on L&D Jessica Navarro MD 06/24/2012 16:50 Noe Morgan MD - 06/24/2012 1531 EDT 36-42 Weeks Subjective: Mary Grace Harris is a 21 y.o. female at 35w2d here for visit. Patient reports: Decreased movement Twice in the last two days. Usually feel much more. No vaginal bleeding + vaginal discharge. No contractions. 1 yesterday. Objective: Filed Vitals: 06/24/12 0924 BP: 122/84 Pulse: 88 Temp: 36.3 ??C (97.3 ??F) TempSrc: Tympanic Weight: 116.574 kg (257 lb) Additional exam: None Assessment/Plan: 1. IUP at 35w2d: FHT: 120s 2. Decreased Movement - hr 120s in office. Advised patient to go to labor floor for BPP and NST evaluation. Patient and partner rigo understand and agree with plan. 3. Need for gbs screening - swab sent in office today. Patient discussed with Attending Noe Love MD, MPH PGY - 3 Family Medicine, 2175 Noe Morgan MD - 06/24/2012 0933 EDT Subjective: Patient ID: Mary Grace Harris is an 21 y.o. female. Chief Complaint Patient presents with ??? Decreased Movement since yesterday HPI Comments: Decreased movement Twice in the last two days. Usually feel much more. No vaginal bleeding + vaginal discharge. No contractions. 1 yesterday. Patient Active Problem List Diagnoses ??? Depression ??? Celiac disease ??? Anxiety ??? Thyroid nodule ??? Paranoid schizophrenia ??? Chronic pain syndrome ??? Supervision of normal first ??? Tobacco dependence Past Medical History Diagnosis Date ??? Tendinitis ??? Torticollis ??? Laceration 12/04/06 left 5th digit tendon,nerve laceration ??? Myofascial pain right shoulder and neck myofascial pain ??? Psychiatric problem anxiety ??? Mental disorder ??? Fibromyalgia ??? Scoliosis Current Outpatient Prescriptions on File Prior to Visit Medication Sig Dispense Refill ??? aripiprazole (ABILIFY) 20 mg tablet Take 1 Tab by mouth daily. 30 Tab 3 ??? Vit-Iron Fumarate-FA ( 19) 29-1 mg Chew Take 1 Cap by mouth daily. 30 Cap 5 Allergies Allergen Reactions ??? Haldol (Haloperidol Lactate) paralysis ??? Paxil (Paroxetine Hcl) Nausea And Vomiting Social History Substance Use Topics ??? Smoking status: Current Some Day Smoker -- 0.2 packs/day for 9 years ??? Smokeless tobacco: Never Used Comment: occasional ??? Alcohol Use: No occ ROS - See HPI Objective: BP 122/84 Pulse 88 Temp(Src) 36.3 ??C (97.3 ??F) (Tympanic) Wt 116.574 kg (257 lb) Physical Exam Assessment: Plan: There are no diagnoses linked to this encounter. yeda Holm LPN - 06/24/2012 0925 EDT Patient is up to date with Tdap, Last given, 05/18/12. Mk documented in this encounter Plan of Treatment Not on filedocumented as of this encounter Procedures Procedure Name Priority Date/Time Associated Diagnosis Comme nts GROUP B STREP PCR Routine 06/24/2012 9:59 EDT , tyrone l Results for this first procedure are i n the results section. documented in this encounter Results GROUP B STREPTOCOCCUS MOLECULAR DETECTION (06/24/2012 9:59 EDT) Group B Streptococcus No Group B beta [facility] Molecular Detection streptococcal DNA LAB detected by PCR. Specimen Other (qualifier value) - Other Performing Organization Address City/State/ZIP Code Phon e Number [facility] [address] [place] [address] SERVICES [facility] [address] [place] [address] documented in this encounter Visit Diagnoses Diagnosis , normal first - Primary Supervision of normal first Decreased movement Decreased movements, affecting man agement of mother, unspecified as to episode of care in documented in this encounter Care Teams Lease Administrator Relationship Specialty Start Date End Date Noe Kurtz MD PCP - General 04/01/12 05/02/13 documented as of this encounter
--- OUTSIDE RECORDS SUMMARY | 2021-08-16 23:33 | XMS_ITS | Encounter Summary ---
:1990 Author Organization [facility] Address [address] [place] [address] Care Team Providers Name Role Phone Noe Kurtz MD Primary Care Provider Reason for Visit Reason Onset Date Comments Appointment Related 05/12/2012 OB & Med check Encounter Details Date Type Department Care Team Description 05/12/[address] [facility] Noe Kurtz, Appo intment Related (OB Family Medicine - MD & Med check) [address] [phone] Social History Tobacco Use Types Packs/Day Years [...] Notes Telephone Encounter - Mita Johnson - 05/12/2012 1027 EST Mary Grace needed a two week follow OB check and med check from 04/29/12. You do not have anything until June so we added her into 05/18/12 at 4:30 with another patient. Please let me know if this is not acceptable to you. documented in this encounter Plan of Treatment Not on filedocumented as of this encounter Visit Diagnoses Not on filedocumented in this encounter Care Teams Pre Owned Sales Manager Relationship Specialty Start Date End Date Noe Kurtz MD PCP - General 04/01/12 05/02/13 documented as of this encounter
--- OUTSIDE RECORDS SUMMARY | 2021-08-16 23:33 | XMS_ITS | Encounter Summary ---
:1990 Author Organization [facility] Address [address] [place] [address] Care Team Providers Name Role Phone Noe Kurtz MD Primary Care Provider Reason for Visit Reason Onset Date Comments Referral Request 05/19/2012 Debbie Sanchez Encounter Details Date Type Department Care Team Description 05/19/2012 Telephone [facility] Noe Kurtz, Refe rral Request ([facility] - MD Sanchez) [address] [phone] Social History Tobacco Use Types Packs/Day Years [...] Notes Telephone Encounter - Mita Johnson - 05/19/2012 1406 EDT FABY Sanchez cannot see Mary Grace as she only services pediatric patients. documented in this encounter Plan of Treatment Not on filedocumented as of this encounter Visit Diagnoses Not on filedocumented in this encounter Care Teams District Scout Executive Relationship Specialty Start Date End Date Noe Kurtz MD PCP - General 04/01/12 05/02/13 documented as of this encounter
--- OUTSIDE RECORDS SUMMARY | 2021-08-16 23:33 | XMS_ITS | Encounter Summary ---
:1990 Author Organization [facility] Address [address] [place] [address] Care Team Providers Name Role Phone Noe Kurtz MD Primary Care Provider Reason for Visit Reason Onset Date Comments Letter for School/Work 06/17/2012 For Disability Encounter Details Date Type Department Care Team Description 06/17/2012 Telephone [facility] Noe Kurtz, Balbir greer for School/Work Family Medicine - (For Disability) [address] [phone] Social History Tobacco Use Types Packs/Day Years [...] Telephone Encounter - Noe Kurtz MD - 06/17/2012 1250 EDT Letter sent, Noe Kurtz MD, MPH PGY - 3 Family Medicine, 2176 elephone Encounter - Makayla Hadley - 06/17/2012 1023 EDT Mary Grace is calling today because she said that she talked to Dr. Kurtz 2 weeks ago about writing aletter to Disability for her. She states that she hasn't received anything and she needs it val. Please call her back. documented in this encounter Plan of Treatment Not on filedocumented as of this encounter Visit Diagnoses Not on filedocumented in this encounter Care Teams Form Raiser Relationship Specialty Start Date End Date Noe Kurtz MD PCP - General 04/01/12 05/02/13 documented as of this encounter
--- OUTSIDE RECORDS SUMMARY | 2021-08-16 23:33 | XMS_ITS | Encounter Summary ---
:[address] [facility] Address [address] [place] [address] Care Team Providers Name Role Phone Noe Kurtz MD Primary Care Provider Reason for Referral PROPERTY APPRAISER (Routine/Next Available) - Closed Specialty Diagnoses / Procedures Referred By Contact Refer red To Contact Diagnoses Supervision of normal first Noe Kurtz MD Procedures JAIL ROUTINE [address] [place] [address] Referral ID Status Reason Start Date Expiration Date Visits Requ ested Visits Authorized [id number] Closed 05/19/2012 1 1 onsult (Routine/Next Available) - Closed Specialty Diagnoses / Procedures Referred By Contact Refer red To Contact Psychology Diagnoses Paranoid schizophrenia ([facility]) ([facility]) Noe Kurtz MD [address] [place] [address] Referral ID Status Reason Start Date Expiration Date Visits V isits Requested Authorized [id number] Closed Specialty 05/19/2012 1 1 Services Required Question Answer Reason for Request: depression, schizophrenia onsult (Routine/Next Available) - Closed Specialty Diagnoses / Procedures Referred By Contact Refer red To Contact Neonatology Diagnoses Supervision of normal first Paranoid schizophrenia (HCC-CMS) ([facility]) Noe Kurtz MD [address] [place] [address] Referral ID Status Reason Start Date Expiration Date Visits V isits Requested Authorized [id number] Closed Specialty 05/18/2012 1 1 Services Required Question Answer Reason for Request: patient on zyprexa, abilify, plans to breast feed. Consult e: breast feeding, Antipsychoti c risks in . onsult (Routine/Next Available) - Closed Specialty Diagnoses / Procedures Referred By Contact Refer red To Contact Family Medicine Diagnoses Paranoid schizophrenia ([facility]) ([facility]) Noe Kurtz MD [address] [place] [address] Referral ID Status Reason Start Date Expiration Date Visits V isits Requested Authorized [id number] Closed Specialty 05/18/2012 1 1 Services Required Question Answer Reason for Request: Referral for elio Andrade or [facility] Patient. Per [facility]. Reason for Visit Reason Comments Routine Visit Encounter Details Date Type Department Care Team Description 05/18/2012 Routine [facility] William Santo MD GA: 30w0d [facility] Noe Kurtz MD [address] [place] [address] [place] [address] Social History Tobacco Use Types Packs/Day Years Used Date Current Some Day Smoker 0.25 9 Smokeless Tobacco: Never Used Comments: occasional Alcohol Use Standard Drinks/Week Comments No 0 (1 standard drink = 0.6 oz pure alcoho l) occ Sex Assigned at Date Recorded Not on file documented as of this encounter Last Filed Vital Signs Vital Sign Reading Time Taken Comments Blood Pressure 104/62 05/18/2012 1637 EDT Pulse - - Temperature - - Respiratory Rate - - Oxygen Saturation - - Inhaled Oxygen Concentration - - Weight 119.3 kg (263 lb) 05/18/2012 1637 EDT Height - - Body Mass Index 43.77 04/05/2012 1400 EST documented in this encounter Functional Status Cognitive Status Response Date of Assessment Because of a physical, mental, or emotional condition, do Ye s 09/04/2011 you have serious difficulty concentrating, remembering, or making decisions? (5 years old or older) documented as of this encounter Ordered Prescriptions Prescription Sig Dispensed Refills Start Date End Date aripiprazole (ABILIFY) 20 Take 1 Tab by 30 Tab 3 013 01/17/2016 mg tabletIndications: mouth daily. Paranoid schizophrenia (HCC-CMS) (HCC) documented in this encounter Progress Notes Arely Hernandez MD - 05/19/2012 2145 EDT Attestation statement: I saw and examined the patient with the resident/fellow. I agree with the findings and plan of care documented in the resident's/fellow's note. Good response so far to cross taper between olanzapine and aripiprazole. Arely Hernandez MD Sulema Montes De Oca RN - 05/18/2012 1725 EDT Tdap given per Dr. Kurtz's order, see Immunization record Noe Morgan MD - 05/18/2012 1653 EDT OB History Grav Para Term Abortions TAB SAB Ect Mult Living 1 Subjective: Mary Grace Harris is being seen today for her obstetrical visit. She is at 30 and 0/7 weeks gestation. Patient reports no problems currently with . Patient is getting excited about upcoming delivery. Movement: present, no vb, no contractions no LOF. Things are going well with meds. Objective: BP 104/62 Wt 119.296 kg (263 lb) FHT: 130 BPM Uterine Size: 30cm Presentation: unclear Assessment: @ 30wks Plan: 28-week labs reviewed, normal glucola and h/h. Discussed s/s of labor Discussed , patient reports she discussed with someone at [facility] this already. Discussed family planning: reports they will do condoms at this time, counseled regarding other methods. - Referral provided for growth scan - Referral provided for medicine, to discuss risk of withdrawal. - Tdap given Follow-up: 2 weeks. Paranoid Schizophrenia - Patient reports that this has been doing better on abilify. She is more awake and less depressed. She is not having as many visual or auditory hallucinations. Will discontinue olanzapine and inrease abilify to 20mg daily. This is our target daily dose. Will follow up symptoms in 2 weeks. Can decrease back to 15mg daily if too somnolent. Patient seen and discussed with Attending Noe Estrada MD, MPH PGY - 2 Family Medicine, [address] - 05/18/2012 1627 EDT Mary Grace is here today for her routine visit. No abdominal cramping. No vaginal discharge or bleeding. + swelling in hands and feet. No nausea or vomiting. + movement. Temp: 98.5, oral Pulse: 100, regular documented in this encounter Plan of Treatment Scheduled Referrals Name Type Priority Associated Diagnoses Order S chedule AMB CONSULT FAMILY Outpatient Referral Routine Paranoid Or dered: PRACTICE schizophrenia 05/18/2012 ([facility]) AMB CONSULT Outpatient Referral Routine Supervision of normal Ordered: NEONATOLOGY first 05/18/2012 Paranoid schizophrenia ([facility]) AMB CONSULT Outpatient Referral Routine Paranoid Ordered: PSYCHOLOGY schizophrenia 05/19/2012 ([facility]) documented as of this encounter Procedures Procedure Name Priority Date/Time Associated Diagnosis Comme nts JAIL ROUTINE Routine 05/23/2012 11:49 EDT Supervision of tyrone virgen Results for this first procedure cassidy gaston in the results section. documented in this encounter Results JAIL ROUTINE (05/23/2012 11:49 EDT) Anatomical Region Laterality Modality Other Specimen Narrative [facility] - 05/23/2012 13:22 EDT Indication: Size/dates mismatch. Drugs / X-Rays: Olanzapine for paranoid schizophrenia. 100lb weight gain during . History: Age: 21 years. : 1 Para: 0. LMP not known. Current : Pre- data: Weight 143 lbs. Height 5 ft 3 ins. BMI 25.1. Dating: Earlier Assessment on: 02/11/2012 EDC: 0 07/27/2012 GA by earlier assessment: 30w5d Best Overall Assessment: 05/23/2012 EDC: 07/27/2012 Assessed GA: 30w5d The Best Overall Assessment is based on an earlier assessment on 02/11/2012. General Evaluation: heart activity: Present. hea rt rate: 140 bpm. Presentation: cephalic, Spine right. movement: visible. Amniotic Fluid: Normal. Cord: 3 Vessels. cord insertion si te: Normal. Placenta: Anterior. Placenta Grade: Grad e 1. Structure: normal. Anatomy Scan: Burns gestation. Biometry: BPD 81.5 mm 91st% 32w5d (31w5d to 33w5d) HC 284.1 mm 26th% 31w1d (28w1d to 34w1d) AC 275.4 mm 73rd% 31w4d (30w4d to 32w4d) FL 58.3 mm 29th% 30w3d (27w4d to 33w3d) OFD 97.8 mm 18th% 29w2d TCD 39.0 mm >95th% 33w5d HUM 52.6 mm 52nd% 30w6d VENTRp 3.6 mm n/a CM 6.9 mm 45th% HC/AC Ratio 1.032 ??26th% FL/AC Ratio 0.212 ??n/a BPD/FL Ratio 1.398 ??51st% BPD/OFD Ratio 0.833 ??86th% EFW (lbs/oz) 3 lbs 13 ozs EFW (g) 1741 g ??46th% Anatomy: Head: head shape appears normal. Brain: Cerebellum, choroid plexus, ciste rna magna, lateral cerebral ventricles, midline falx and cavum septi pellucidi appear normal. Face: Upper lip appears normal. Spine: Cervical, thoracic, lumbar and sa cral spine appear normal Neck / Skin: No neck masses seen. Thorax: No thoracic abnormalities detect ed. Heart: Four chamber heart and outflow tr acts appear normal. Abdominal Wall: Normal cord insertion in to the abdominal wall is seen. Gastrointestinal Tract: Stomach appears normal. Kidneys / Adrenal Glands: Bilateral kidn eys appear normal. Bladder: bladder appears normal in size and shape. Genitalia: Male fetus. Extremities: Both upper and lower extrem ities are seen. Skeleton: No evidence of skeletal abnorm ality detected. Summary of Ultrasound Findings: Transabdominal US. U/S machine: [employer] on e8. U/S view: good. Maternal Structures: Uterus, cervix and both ovaries appear n ormal. Report Summary: Impression: [id number] Obstetrical ultrasound with and maternal evaluation This is a burns gestation. Biometry is consistent with earlier ultr asound dating. Anatomy appears normal as noted above; however, ultrasound cannot detect all anomalies. There is fet al trunk and extremity movement noted. The amniotic fluid volum e appears normal. Recommendations: Follow-up as clinically indicated. Growth Overview: Date GA BPD [mm] HC [mm] AC [mm] FL [mm] HUM [mm] EFW GP 05/23/2012 30 + 5 81.5 91st 284.1 26th 2 75.4 73rd 58.3 29th 52.6 52nd 1741g , 3 lbs 13 ozs 46th%% Procedure Note 05/23/2012 Indication: Size/dates mismatch. Drugs / X-Rays: Olanzapine for paranoid schizophrenia. 100lb weight gain during . History: Age: 21 years. : 1 Para: 0. LMP not known. Current : Pre- data: Weight 143 lbs. Height 5 ft 3 ins. BMI 25.1. Dating: Earlier Assessment on: 02/11/2012 EDC: 0 07/27/2012 GA by earlier assessment: 30w5d Best Overall Assessment: 05/23/2012 EDC: 07/27/2012 Assessed GA: 30w5d The Best Overall Assessment is based on an earlier assessment on 02/11/2012. General Evaluation: heart activity: Present. hea rt rate: 140 bpm. Presentation: cephalic, Spine right. movement: visible. Amniotic Fluid: Normal. Cord: 3 Vessels. cord insertion si te: Normal. Placenta: Anterior. Placenta Grade: Grad e 1. Structure: normal. Anatomy Scan: Burns gestation. Biometry: BPD 81.5 mm 91st% 32w5d (31w5d to 33w5d) HC 284.1 mm 26th% 31w1d (28w1d to 34w1d) AC 275.4 mm 73rd% 31w4d (30w4d to 32w4d) FL 58.3 mm 29th% 30w3d (27w4d to 33w3d) OFD 97.8 mm 18th% 29w2d TCD 39.0 mm >95th% 33w5d HUM 52.6 mm 52nd% 30w6d VENTRp 3.6 mm n/a CM 6.9 mm 45th% HC/AC Ratio 1.032 26th% FL/AC Ratio 0.212 n/a BPD/FL Ratio 1.398 51st% BPD/OFD Ratio 0.833 86th% EFW (lbs/oz) 3 lbs 13 ozs EFW (g) 1741 g 46th% Anatomy: Head: head shape appears normal. Brain: Cerebellum, choroid plexus, ciste rna magna, lateral cerebral ventricles, midline falx and cavum septi pellucidi appear normal. Face: Upper lip appears normal. Spine: Cervical, thoracic, lumbar and sa cral spine appear normal Neck / Skin: No neck masses seen. Thorax: No thoracic abnormalities detect ed. Heart: Four chamber heart and outflow tr acts appear normal. Abdominal Wall: Normal cord insertion in to the abdominal wall is seen. Gastrointestinal Tract: Stomach appears normal. Kidneys / Adrenal Glands: Bilateral kidn eys appear normal. Bladder: bladder appears normal in size and shape. Genitalia: Male fetus. Extremities: Both upper and lower extrem ities are seen. Skeleton: No evidence of skeletal abnorm ality detected. Summary of Ultrasound Findings: Transabdominal US. U/S machine: [employer] on e8. U/S view: good. Maternal Structures: Uterus, cervix and both ovaries appear n ormal. Report Summary: Impression: [id number] Obstetrical ultrasound with and maternal evaluation This is a burns gestation. Biometry is consistent with earlier ultr asound dating. Anatomy appears normal as noted above; however, ultrasound cannot detect all anomalies. There is fet al trunk and extremity movement noted. The amniotic fluid volum e appears normal. Recommendations: Follow-up as clinically indicated. Growth Overview: Date GA BPD [mm] HC [mm] AC [mm] FL [mm] HUM [mm] EFW GP 05/23/2012 30 + 5 81.5 91st 284.1 26th 2 75.4 73rd 58.3 29th 52.6 52nd 1741g , 3 lbs 13 ozs 46th%% Performing Organization Address City/State/ZIP Code Phon e Number [facility] MATERNAL MEDICINE [facility] documented in this encounter Visit Diagnoses Diagnosis Supervision of normal first - Primary Paranoid schizophrenia (HCC-CMS) ([facility]) Paranoid schizophrenia, unspecified cond ition Need for Tdap vaccination Need for prophylactic vaccination with c ombined aoqaxrlyur-paousvw-sjpxldmhe (DTP) vaccine Obesity, Class III, BMI 40-49.9 (morbid obesity) ([facility]) Morbid obesity documented in this encounter Discontinued Medications Medication Sig Discontinue Reason Start Date End Date aripiprazole (ABILIFY) 10 Take 0.5 Tabs by 04/22/2012 05/18/2012 mg tablet mouth daily. olanzapine (ZYPREXA) 10 mg Take 1 Tab by 03/22/2012 05/18/2012 tabletIndications: mouth daily. Paranoid schizophrenia (HCC-CMS) ([facility]) olanzapine (ZYPREXA) 10 mg Take 1 Tab by 04/22/2012 05/18/2012 tabletIndications: mouth 2 times Paranoid schizophrenia daily. ([facility]) ([facility]) documented as of this encounter Orders Immunization/Injection Count Last Ordered Date First O rdered Date TDAP VACCINE =>7YO IM 1 05/18/2012 documented in this encounter Care Teams Income Tax Return Preparer Relationship Specialty Start Date End Date Noe Kurtz MD PCP - General 04/01/12 05/02/13 documented as of this encounter
--- OUTSIDE RECORDS SUMMARY | 2021-08-16 23:33 | XMS_ITS | Encounter Summary ---
:1990 Author Organization [facility] Address [address] [place] [address] Care Team Providers Name Role Phone Filipe Bose MD Primary Care Provider Reason for Visit Reason Onset Date Comments Pre-visit Orders 03/12/2016 Encounter Details Date Type Department Care Team Description 03/12/2016 Telephone [facility] Dyllan Bose MD Pre-visit Orders Family Medicine [address] [address] [place] [address] [address] [place], [place] [id number] [phone] Social History Tobacco Use Types Packs/Day Years [...] Refills Start Date End Date medroxyPROGESTERone Inject 1 mL into 1 mL 4 03/12/2016 03/25/2016 (DEPO-PROVERA) 150 mg/mL the muscle every injection 12 weeks. documented in this encounter Progress Notes Ernestine Polanco RN - 03/13/2016 0946 EST Error documented in this encounter Miscellaneous Notes Telephone Encounter - Alex Mita - 03/12/2016 1405 EST Patient is coming in for a depo shot tomorrow, 03/13/16 so she will need an order. Her last depo shot was 12/10/15 so she will also need a UPT order. documented in this encounter Plan of Treatment Not on filedocumented as of this encounter Results POCT URINE TEST (03/13/2016 [...] bed contraceptive method documented in this encounter Care Teams Elevator Runner Relationship Specialty Start Date End Date Filipe Bose MD PCP - General 11/07/15 12/01/16 documented as of this encounter
--- OUTSIDE RECORDS SUMMARY | 2021-08-16 23:33 | XMS_ITS | Encounter Summary ---
:1990 Author Organization [facility] Address [address] [place] [address] Care Team Providers Name Role Phone Noe Kurtz MD Primary Care Provider Reason for Visit Reason Comments Community Health Team Encounter Details Date Type Department Care Team Description 05/18/2012 Community Health Team [facility] Elsa Thornton [address] [address] Social History Tobacco Use Types [...] documented as of this encounter Progress Notes Elsa Orta - 05/18/2012 1637 EDT Health assistant women's soccer coach met with pt for quick introduction to [facility] Team, pt is currently five months and expressed concerns regarding healthy eating during . She noted that she is planning to breast feed and would benefit from healthy habit formation for that time as well. Total Time: 5 minutes Referrals: [facility] RD once referred from Dr. Kurtz Follow-Up: Pending referral Status: Needs referral from Dr. Kurtz documented in this encounter Plan of Treatment Not on filedocumented as of this encounter Visit Diagnoses Not on filedocumented in this encounter Care Teams Bone Grinder Relationship Specialty Start Date End Date Noe Kurtz MD PCP - General 04/01/12 05/02/13 documented as of this encounter
--- OUTSIDE RECORDS SUMMARY | 2021-08-16 23:33 | XMS_ITS | Encounter Summary ---
:1990 Author Organization [facility] Address [address] [place] [address] Care Team Providers Name Role Phone Noe Kurtz MD Primary Care Provider Reason for Visit Reason Comments Routine Visit Encounter Details Date Type Department Care Team Description 06/14/2012 Routine [facility] landon, Provider, [place]: 33w6d Medicine - [place] Noe Kurtz MD [address] [place] [id number] [address] [place], [place] [id number] Social History Tobacco Use Types Packs/Day Years [...] Reading Time Taken Comments Blood Pressure 128/70 06/14/2012 1607 EDT Pulse - - Temperature - - Respiratory Rate - - Oxygen Saturation - - Inhaled Oxygen Concentration - - Weight 118.4 kg (261 lb) 06/14/2012 1607 EDT Height - - Body Mass Index 43.43 04/05/2012 1400 EST documented in this encounter Functional Status Cognitive Status Response Date of Assessment Because of a physical, mental, or emotional condition, do Ye s 09/04/2011 you have serious difficulty concentrating, remembering, or making decisions? (5 years old or older) documented as of this encounter Progress Notes Gosia Loza MD - 06/15/20122056 EDT Attestation statement for office patient not seen by attending: I discussed the patient with the resident/fellow at the time of the visit and agree with the findings and the plan of care documented in the resident's/fellow's note. Gosia Loza MD Family Medicine Attending 06/15/2012 20:57 ELTNoe Kurtz MD - 06/14/2012 1626 EDT 30-35 Weeks Subjective: Mary Grace Harris is a 21 y.o. female at 33w6d here for a visit. Patient reports no complaints No vb, lof, contractions. +FM Not sleeping well. Contractions None Movement present Objective: Filed Vitals: 06/14/12 1607 BP: 128/70 Weight: 118.389 kg (261 lb) Additional exam: FH 35cm. Assessment: 1. IUP at 33w6d: S = D 2 Additional assessment: medicine appointment upcoming. 3. Signs and symptoms of labor reviewed Plan: 1. Problem list reviewed and updated. 2. Signs and symptoms of labor reviewed. 3. Additional testing: GBS swab at 36 weeks 4. Follow-up in 1 weeks Paranoid Schizophrenia - Continue abilify 10mg daily. Continue counseling. VNA consult placed. - medicine appointment. documented in this encounter Plan of Treatment Not on filedocumented as of this encounter Visit Diagnoses Diagnosis Supervision of normal first - Primary documented in this encounter Care Teams Acid Adjuster Relationship Specialty Start Date End Date Noe Kurtz MD PCP - General 04/01/12 05/02/13 documented as of this encounter
--- OUTSIDE RECORDS SUMMARY | 2021-08-16 23:33 | XMS_ITS | Encounter Summary ---
:1990 Author Organization [facility] Address [address] [place] [address] Care Team Providers Name Role Phone Noe Kurtz MD Primary Care Provider Encounter Details Date Type Department Care Team Description 05/05/2012 Community Health Team [facility] Manuel Thomas [address], [address] [place], [place] [id number] Social History Tobacco Use Types Packs/Day Years [...] this encounter Progress Notes Lili Thomas - 05/05/2012 1443 EST ..Total Time: 2 minutes Referrals: [facility] Follow-Up: I will follow up Status: Active Follow up call re: Damon referral. Left voicemail requesting return call. documented in this encounter Plan of Treatment Not on filedocumented as of this encounter Visit Diagnoses Not on filedocumented in this encounter Care Teams Union Organiser Relationship Specialty Start Date End Date Noe Kurtz MD PCP - General 04/01/12 05/02/13 documented as of this encounter
--- OUTSIDE RECORDS SUMMARY | 2021-08-16 23:33 | XMS_ITS | Encounter Summary ---
:1990 Author Organization [facility] Address [address] [place] [address] Care Team Providers Name Role Phone Stephon Marquez MD Primary Care Provider Reason for Visit Reason Comments Paranoid pt came into the waiting suraj with her son/boyfriend who the son presented for a rash. During the triag e of the son, pt's boyfriend then states that the pt needs to be seen vasquez use she's in an acute paranoid state and was threatening them in the car. See triage note. Encounter Details Date Type Department Care Team Description 08/07/2013 - Emergency [facility] Domingo Vidal PA-C [address] [place], [place] [id number] Paranoid schizophrenia 08/08/2013 Emergency Department Elsa Steen PA-C [address] [place] [phone] ([facility]) (Primary Dx) - [facility] Aneesh Contreras PA-C [address] [place] [address] [address] [place] [phone] [place] [address] Esperazna Wren PA-C [address] [place] [phone] [place] [address] Emergency, MD Chelsy [phone] Social History Tobacco Use Types Packs/Day Years Used Date Current Some Day Smoker 0.25 10 Smokeless Tobacco: Never Used Comments: occasional Alcohol Use Standard Drinks/Week Comments No 0 (1 standard drink = 0.6 oz pure alcoho l) occ Sex Assigned at Date Recorded Not on file documented as of this encounter Last Filed Vital Signs Vital Sign Reading Time Taken Comments Blood Pressure 126/74 08/08/2013 1659 EDT Pulse 80 08/08/2013 1659 EDT Temperature 36.2 ??C (97.2 ??F) 08/08/2013 1659 EDT Respiratory Rate 14 08/08/2013 1659 EDT Oxygen Saturation 100% 08/08/2013 1659 EDT Inhaled Oxygen Concentration - - Weight 95.3 kg (210 lb) 08/07/2013 1851 EDT Height 165.1 cm (5' 5) 08/07/2013 1851 EDT Body Mass Index 34.95 08/07/2013 1851 EDT documented in this encounter Functional Status Cognitive Status Response Date of Assessment Because of a physical, mental, or emotional condition, do Ye s 09/04/2011 you have serious difficulty concentrating, remembering, or making decisions? (5 years old or older) documented as of this encounter Discharge Instructions Chuy Rojas - 08/08/2013 Stable for transport to [facility]. documented in this encounter Medications at Time of Discharge Medication Sig Dispensed Refills Start Date End Date aripiprazole (ABILIFY) 20 Take 1 Tab by mouth 30 Tab 3 0 05/18/2012 01/17/2016 mg tabletIndications: daily. Paranoid schizophrenia (HCC-CMS) ([facility]) LORazepam (ATIVAN) 1 mg Take 0.5 Tabs by 15 Tab 0 201302/26/2016 tablet mouth every 4 hours as needed for Anxiety. ziprasidone (GEODON) 20 mg Take 3 Caps by 20 Cap 0 08/0702/27/2016 capsule mouth 2 times daily. documented as of this encounter Discharge Disposition Disposition Code Departure Means Destination Home or Self Care Car Home documented in this encounter Consult Notes Michael Barone - 08/07/2013 2306 EDT Department of Psychiatry Emergency Department Consult Note Date: 08/07/2013 Time: 21:30 AM Presenting problem/CC: The same as yesterday. / Psychosis Musical Instrument Supervisor involved: [facility] Attending: Domingo CHEN PCP:Stephon Marquez MD Psychiatrist: Henrique Cardona MD Therapist: none HPI: From ED Consult Note written by Dr. Barone earlier today - 22 yo woman with past medical hx of schizophrenia and fibromyalgia is brought to ED voluntarily by boyfriend secondary to worsening psychotic symptoms. Per boyfriend she had been stable and the mostwonderful person and mother you could imagine up until stopping her medications 2 months ago. She had been taking Abilify and Zoloft. These were started about a year prior during [facility]. About a month ago after stopping medication pt began to complain increasingly of auditory hallucinations, often with paranoid and or presybeterian themes. Auditory hallucinations of birds, animals, people talking to her were scary to pt and she is getting frequent command auditory hallucinations to do bad things including kill herself, howeverpt says she doesn't want to until I am old and is definitive about not hurting or killing herself. She says she has been living with voices such as these for a long time and while they have been worse lately she is not going to act according to their commands. She states that she has not had anyvoices telling her to hurt her 1 yo son or her boyfriend. Boyfriend was worried at home for safety of himself and their one year old son, not secondary to a specific threat so much as worsening psychosis that was effecting her behavior towards him and their son - she had made statements about 1 yo boypraying and boyfriend sucking light out of him that were concerning. Pt is clear in stating she will not harm her child or boyfriend. She is distressed by worsening symptoms though she refuses to seek or accept inpatient hospitalization. She did call her new psychiatrist, Dr. Henrique Cardona, at behest of her boyfriend ten days ago to makean appointment (08/09/13) and also asked that he prescribe her something if he couldn't see her sooner, and he prescribed Geodon 40 mg BID which she has been taking per her account and per boyfriend. Pt would like medication to help with the fear and realizes that she needs to take medication. Jamaroes not think the Geodon has helped yet, nor does she think it has hurt any. She would like something to work faster in relieving her symptoms. Pt returns to ED at behest of her boyfriend. They had at least one fight today in which she accused him of somehow hurting the soul of their 1 year old child. Boyfriend is afraid and told tennis director that pt may not return home at this time because he does not feel he and 1 yo would be safe. Pt is now willing to accept voluntary hospitalization. She states I need something stronger. Current medications: No current facility-administered medications on file prior to encounter. Current Outpatient Prescriptions on File Prior to Encounter Medication Sig Dispense Refill ??? LORazepam (ATIVAN) 1 mg tablet Take 0.5 Tabs by mouth every 4 hours as needed for Anxiety. 15 Tab 0 ??? ziprasidone (GEODON) 20 mg capsule Take 3 Caps by mouth 2 times daily. 20 Cap 0 Past psychiatric hx: Pt was hospitalized voluntarily for 3 days at [facility] in 2011, refused to take medications, was prominently psychotic but not deemed an imminent risk to self or others and therefore allowed to leave [facility]. Hospitalization about a year ago in [facility] lasted almost 2 months per boyfriend, and that is where she stabilized on Abilify and Zoloft. Pt reports she has been triedon other medications but she doesn't know what they were. Has been taking Geodon 40 mg BID for past 9 days. Increased to 60 mg BID earlier today. Past medical hx: Patient Active Problem List Diagnosis ??? Depression ??? Celiac disease ??? Anxiety ??? Thyroid nodule ??? Paranoid schizophrenia ??? Chronic pain syndrome ??? Supervision of normal first ??? Tobacco dependence syndrome Allergies: Allergies Allergen Reactions ??? Gluten Protein ??? Haldol (Haloperidol Lactate) paralysis ??? Paxil (Paroxetine Hcl) Nausea And Vomiting Substance hx: Pt was taking prescribed narcotic pain medications for years, but has not in months. Family hx: Mom with schizophrenia. Social/developmental hx: Raised by grandmother. Now lives with boyfriend and 1 yo child. Vital signs: BP 145/97 Pulse 129 Temp(Src) 37.3 ??C (99.1 ??F) (Tympanic) Resp 16 Ht 165.1 cm (65) Wt 95.255 kg (210 lb) BMI 34.95 kg/m2 SpO2 100% LMP 08/06/2013 MSE: Young moderately obese woman lying in bed with good hygiene overall, dyed pink streak in hair, wakes up for interview. Attitude towards interviewer is cooperative and fairly open. Behavior is without psychomotor agitation or depression, somewhat increased arousal, looking around and at points appearing to focus on internal stimuli. Eye contact is abnormal, roving, intense. Speech is normal volume, normal rate grossly, rhythm is somewhat halting / unusual with frequent pauses. Mood is scared. Affect is mood congruent, somewhat fearful. Perceptual disturbances notable for auditory hallucinations - including command AHs to kill self. Thought process otherwise is somewhat linear and logical, florencia ewhat tangential. Thought content is focused on achieving relief from psychosis / maintaining relationship with boyfriend. Insight is fair-good. Judgment is fair. Assessment: 22 yo woman with schizophrenia is suffering from worsening psychotic symptoms secondary at least in part to stopping antipsychotic medication 2 months ago. She has a fair amount of insight into her worsening symptoms as demonstrated by asking for and restarting antipsychotic medication 9 days ago. She is now accepting assistance in finding voluntary psychiatric placement (we do not have bed here to offer at this time). Suicide Risk Assessment Modifiable Risk Factors: Physical Pain, Psychic distress/anxiety/pain, Psychotic state and Command hallucinations Non-Modifiable Risk Factors: Chronic or terminal illness, , Unemployment, Schizophrenia andFamily history of psychiatric illness Protective Factors: Children in home, Satisfaction with life, Sense of responsibility to family and social supports/connections, Positive coping skills/potential, Positive problem solving, Capacity to realistically appraise one's self and one's life circumstances, Capacity to establish therapeutic cristal ance, Willingness to comply with treatment plan and Outpatient care in place Overall Risk Rating: Acute: Low Chronic: Low Plan/recommendations: -continue Geodon 60 mg BID -Ativan 1 mg Q 4 hours prn -Crisis will be working on finding psychiatric placement for pt -pt may meet criteria for EE, though is currently accepting of need for treatment - please do not allow to leave ED Michael Barone MD PGY-1 Director [employer] Pager 1943 documented in this encounter ED Notes Chuy Contreras - 08/10/2013 1502 EDT Assumed care of patient at 1230 from APRIL Dunn Seen once again by Musical Instrument Supervisor, [facility]ell [facility] with crisis team Stable at [place]. Denisse Alfonso RN - 08/08/2013 1703 EDT 1645: Pt has been cooperative all day. Grandmother comes to visit with pt for 2hrs and sitter is interactive. Pt has spoken with her partner and he and their baby are home in [facility] and doing well. Pt willingly to [facility] with Crisis workers from [facility]. Report called to Gerri at the [facility] and all paperwork has been faxed earlier. speranza Wren PA - 08/08/2013 1608 EDT Assumed care the patient from Liam CHEN at 4 PM. Patient has been accepted at [facility]. A doc to doc took place between the [facility] providerand Pilar Contreras. Patient is to be transported by the crisis team. Currently awaiting transportation. The patient left the department as arranged to [facility]. Lv brown - 08/08/2013 1351 EDT Musical Instrument Supervisor Follow-Up Mary Grace Harris 08/08/2013 Initial Consult Problem: Psychosis EE completed on: N/A voluntary Second Certification completed on: N/A Interim Update: Client slept through the night. On interview today client continues to endorse psychotic symptoms including auditory and visual hallucinations. She talks about seeing dragons come out of a divehi man and snakes coming out of the back of people. She talks about how people want to take her from the light into the darkness. Client remains agreeable to admission at the [facility] Disposition: The patient is on a voluntary status. Please do not discharge with psychiatric clearance. Please maintain on 1:1. We are attempting to find a hospital bed. As of 08/08/2013 client has been referred to the [facility] and likely will be admitted later today. Do not hesitate to call Crisis Service with questions or concerns. Exam: Is the patient able to be assessed fully? yes If not, why? Appearance: Good hygiene Behavior: restricted, tearful at times Speech:soft, slow Mood: anxious, fearful Affect: restricted, congruent Thought Process: disorganized Thought Content: psychotic sx including persecutatory delusions and auditory and visual hallucinations Suicidality: command hallucinations to harm self Homicidality: denies Thank you! Lv Collins [facility] ichelle Coronel - 08/08/2013 0908 EDT Report to and care trans to Faye Alfonso RN Michelle amaya - 08/08/2013 0859 EDT Pt sleeping; did not wake pt; hosp sitter with pt Michelle amaya - 08/08/2013 0758 EDT Pt sleeping, left sidelying, had breakfast; hosp sitter with pt ichelle Coronel - 08/08/2013 0659 EDT Resting quietly in bed, turns self in bed Michelle amaya - 08/08/2013 0638 EDT Resting comfortably; ordered food 0615; hosp sitter with pt Michelle amaya - 08/08/2013 0552 EDT Pt sleeping, did not wake pt; hosp sitter with pt, will notify RN if needs anything Michelle Lynn - 08/08/2013 0537 EDT Report received, assumed care; hospital sitter with pt continuing obs Lamar Duncan RN - 08/08/2013 0324 EDT Still sleeping, repositions, respirations unlabored. Elsa ho PA - 08/08/2013 0212 EDT Pt signed out to me form Darron Vidal PA-C pt with a history of paranoid schizophrenia, seen by Crisis and Psychiatry and bed search, possible admit here tomorrow. Lamar Duncan RN - 08/08/2013 0118 EDT Report received now from shruti Shaw; pt here w/senior revenue accountant paranoia, for reassess in am for possible admit, resting now, cooperative, 1:1 obs continued. Valeria Saenz RN - 08/08/2013 0056 EDT Patient sleeping. Valeria Saenz RN - 08/07/2013 2335 EDT Patient sitting up in bed eating a salad which was purchased by another RN in the emergency department. Patient appears comfortable. Not teary at this time. Lv Waddell - 08/07/2013 2234 EDT Musical Instrument Supervisor Consultation Mary Grace Harris Date of Consultation: 08/07/2013 Time: Reason for Consult: Psychosis. Client with a history of schizophrenia. Abruptly stopped medication 2months ago before restarting last week. Current experiencing auditory and visual hallucinations of demons. Command hallucinations to kill self. Seen by [facility] at 12am and d/c. Had angry outburst against BF camron and he is no longer comftorable with client returning home. History: Current services through [facility]. Prior hospitalization at [facility] in 2010 and [facility] 2011. No history of suicide attempts / ideation. Recent outbursts against boyfriend but no significant history of harm to others. Assessment: Client currently experiencing an increase in psychotic symptoms due to stopping medications. Client has had several recent outbursts against her boyfriend caused by delusional believing he is removing their sons soul. Client also experiencing command hallucinations to harm herself. Although client hasmade no serious attempts to harm herself or others; her psychotic symptoms remain concerning. After camron's incident her boyfriend no longer feels safe with her in the home. Client requires psychiatric stabilization and agrees to voluntary hospitalization. Does this patient meet EE criteria? No agrees to voluntary admission Level of risk to self: Moderate. Command hallucinations. No past attempts Level of risk to others: Moderate, boyfriend incorporated into delusional system. Recent verbal outbursts against him. Preliminary psychiatric diagnosis: Schizophrenia Plan: (include information about availability, referral, transportation, supervision) Client agrees to voluntary hospitalization. She will remain in the ED until a bed is found. To where is the patient discharging?: N/A Assessment and plan discussed with: Michael Barone M.D. Exam: Appearance: Appropriate Behavior: restricted Cooperation: good Mood: Anxious, scared Affect: Restricted with CC, elevated and tearful with PA Thought content: Ideas of reference, auditory and visual hallucinations Thought process: disorganized Suicidality: Command hallucinations Homicidality: denies Clinician Lv Collins [facility] Crisis Services [facility] Valeria Saenz RN - 08/07/2013 2208 EDT Crisis left patients room. Tells this nurse I think she is going to be spending the night. Patientteary and tells this nurse I just want to go home to be comfortable. Nurse encouraged patient to wait to hear what crisis would say when they return. Valeria Saenz RN - 08/07/2013 2110 EDT Crisis speaking with patient. Valeria Saenz RN - 08/07/2013 2047 EDT Patient tells this nurse I always feel drained when I leave here, I am ready to go now and that is why I want to call my boyfriend. This nurse encouraged patient to stay until crisis comes to speak with her. Patient tells this nurse everyone has demons and I am not sure what anyone is going to do for me. This nurse reiterated the importance of staying for a crisis evaluation to attempt to rectifywhat is at the root of these feelings. Patient tells this nurse ok, I will stay. Valeria Saenz RN - 08/07/2013 1938 EDT Patient aware a urine sample is requested by the MD. Valeria Saenz RN - 08/07/2013 1934 EDT This nurse observes patient crying and attempting to recount the reasons why she is here today. Patient tells this nurse I see his head, Robs head on the back of other peoples heads. He tells me to hurt others and to hurt myself. Patient continues to tells this nurse I just dont feel safe and he isalways around even when he is not. Domingo Art PA - 08/07/2013 1929 EDT DOS: 08/07/2013 Chief Complaint Patient presents with ??? Paranoid pt came into the waiting room with her son/boyfriend who the son presented for a rash. During the triage of the son, pt's boyfriend then states that the pt needs to be seen because she's in an acute paranoid state and was threatening them in the car. See triage note. The patient is a 22 y.o. female who presents today with Paranoid HPI Comments: 22-year-old female presents for a psychiatric evaluation. Patient was advised to be seen by her boyfriend. When asked why the patient is here, she recalls a time in 2010 when she was in the same ER room and noted a bright light/rainbow that told her to do one of three things. First thingwas to end the world, second was to be her true self, which made her afraid, and the third thing shedoes not recall. Patient currently states she sees a facial representation of her boyfriend on the back of other peoples heads, ghost-like, telling her to harm other people. Patient states she has thoughts of harming herself but no recent self injury. Denies any recent alcohol use. Patient states she smokes marijuana 1 to 2 times in the past month. Denies other recreational drug use. Patient's only physical complaint is ongoing back pain. She states she has not been physically harmed by her boyfriend, though states he is harming her emotionally, then begins to talk about his face appearing on otherpeople. The history is provided by the patient. Paranoid Presenting symptoms: agitation, hallucinations and suicidal thoughts Presenting symptoms: no self mutilation Associated symptoms: anxiety Review of Systems Psychiatric/Behavioral: Positive for suicidal ideas, hallucinations, dysphoric mood, decreased concentration and agitation. Negative for self-injury. The patient is nervous/anxious. All other systems reviewed and are negative. Past Medical History Diagnosis Date ??? Tendinitis ??? Torticollis ??? Laceration 12/04/06 left 5th digit tendon,nerve laceration ??? Myofascial pain right shoulder and neck myofascial pain ??? Psychiatric problem anxiety ??? Mental disorder ??? Fibromyalgia ??? Scoliosis ??? Asthma ??? Asthma, exercise induced ??? Schizophrenia, paranoid ??? Sciatica Past Surgical History Procedure Laterality Date ??? Finger surgery left ??? [place] tooth extraction Allergies Allergen Reactions ??? Gluten Protein ??? Haldol (Haloperidol Lactate) paralysis ??? Paxil (Paroxetine Hcl) Nausea And Vomiting History Substance Use Topics ??? Smoking status: Current Some Day Smoker -- 0.25 packs/day for 10 years ??? Smokeless tobacco: Never Used Comment: occasional ??? Alcohol Use: No Comment: occ Family History Problem Relation Age of Onset ??? Schizophrenia Mother ??? Diabetes Maternal Grandfather ??? Bipolar Disorder uncle Vital Signs Vitals Reassessment?: Yes Temp: 36.2 ??C (97.2 ??F) Temp src: Tympanic Pulse: 80 Resp: 14 SpO2: 100 % BP: 126/74 mmHg BP Device: BP Machine Patient Position: Sitting BP Cuff Location: Right arm O2 Device: None (Room air) Physical Exam Nursing note and vitals reviewed. Constitutional: She is oriented to person, place, and time. She appears well- developed and well-nourished. No distress. HENT: Head: Atraumatic. Eyes: EOM are normal. Neck: Normal range of motion. Cardiovascular: Regular rhythm and normal heart sounds. Tachycardia present. Pulmonary/Chest: Effort normal and breath sounds normal. No respiratory distress. Neurological: She is alert and oriented to person, place, and time. She has normal strength. No sensory deficit. Skin: Skin is warm and dry. No erythema. Psychiatric: She is actively hallucinating. She exhibits a depressed mood. She expresses homicidal and suicidal ideation. She expresses no suicidal plans and no homicidal plans. Crying Radiology orders: None Imaging Results None Procedures ED Course: A medical screening exam was performed. Patient with history of paranoid schizophrenia presents for psychiatric evaluation, stating she feels as though she is seeing faces, telling her to do bad things. Reports seeing demons. Arrives tachycardic and continually crying. Seen by psychiatry who advised ad mission though no bed available until tomorrow. Care transferred after midnight, pending dispositionand repeat evaluation in the morning. Medications ordered as advised by residential door installer. Disposition: Discharged The patient's pain was managed to an adequate level weighing risk vs. benefit of further medications. Upon departure from the Emergency Department, the patient's pain was 0 on a zero to ten scale. Condition at departure from the Emergency Department: Stable Discharge Medication List as of 08/08/2013 16:08 CONTINUE these medications which have NOT CHANGED Details aripiprazole (ABILIFY) 20 mg tablet Take 1 Tab by mouth daily., Disp-30 Tab, R- 3, Starting 05/18/2012, Until Discontinued, Normal LORazepam (ATIVAN) 1 mg tablet 0.5 mg, oral, EVERY 4 HOURS PRN Starting 08/07/2013, Until Discontinued, Anxiety, Take 0.5 Tabs by mouth every 4 hours as needed for Anxiety., Print ziprasidone (GEODON) 20 mg capsule Take 3 Caps by mouth 2 times daily., Disp-20 Cap, R-0, Print MDM Number of Diagnoses or Management Options Paranoid schizophrenia: Diagnosis management comments: 3 Amount and/or Complexity of Data Reviewed Clinical lab tests: ordered and reviewed Review and summarize past medical records: yes Discuss the patient with other providers: yes (Crisis, residential door installer ) Final diagnoses: Paranoid schizophrenia PCP: Stephon Sibley was available for supervision. 08/09/2013 13:55 Michelle Evans - 08/07/2013 0169 EDT Pt was asked to sit in the waiting room while pt's son's triage was completed. Pt then asked to comeback into the room to talk to triage nurse about being evaluated. Pt initially refused to be evaluated, pts boyfriend was very upset stating that she was threatening them. While talking to triage nurse, pt states that she sees demons and hears things and that she feels like she's not SI because she's too chicken but thinks that she would like to go to the light. Denies HI, but does admit to grabbing her BF's arm recently. Pt continued to have disorganized thoughts while talking about how the world is bad and that she was here last night but was just given more meds, pt states she feels that de mons crawl into the staff here, she's hearing animals speak to her, and that there is no good in theworld. After talking with the industrial training specialist, pt agrees to come in and be evaluated be evaluated by crisis again. documented in this encounter Plan of Treatment Not on filedocumented as of this encounter Procedures Procedure Name Priority Date/Time Associated Comments Diagnosis ED/URGENT CARE ADD-ON STAT 08/08/2013 13:55 Re sults for this EDT procedure are i n the results section. DIFFERENTIAL STAT 08/08/2013 11:58 Results for this EDT procedure are i n the results section. COMPLETE BLOOD COUNT STAT 08/08/2013 11:58 Res ults for this EDT procedure are i n the results section. COMPLETE BLOOD COUNT STAT 08/08/2013 11:58 AND DIFFERENTIAL EDT TSH Routine 08/08/2013 11:58 Results for this EDT procedure are i n the results section. COMPREHENSIVE STAT 08/08/2013 11:58 Results fo r this METABOLIC PANEL (CMP) EDT proced ure are in the results section. TESTS ADDED BY PHONE Routine 08/07/2013 20:38 Res ults for this EDT procedure are i n the results section. DRUG SCREEN 6 STAT 08/07/2013 20:38 Results fo r this EDT procedure are i n the results section. GLUCOSE, GLUCOMETER Routine 08/07/2013 19:34 Resu lts for this EDT procedure are i n the results section. documented in this encounter Results ED/WICC ADD-ON (08/08/2013 13:55 EDT) Pathologist Sig nature Tests to be added TSH [facility] Number for problems [id number] (ED) [facility] Specimen Performing Organization Address [facility]/ZIP Code Phon e Number [facility] [address] [place] [address] SERVICES [facility] [address] [place] [address] TSH (08/08/2013 11:58 EDT) Pathologist Sig nature TSH 0.81 0.35 - 5.00 uIU/ml [facility] Specimen Performing Organization Address [facility]/ZIP Code Phon e Number [facility] [address] [place] [address] SERVICES [facility] [address] [place] [address] (ABNORMAL) DIFFERENTIAL (08/08/2013 11:58 EDT) Pathologist Sig nature Neutrophils 62.8 45.5 - 79.7 % [facility] Lymphocytes 29.5 15.0 - 46.8 % [facility] Monocytes 6.6 1.8 - 12.0 % [facility] Eosinophils 0.4 (L) 0.6 - 6.9 % [facility] Basophils 0.7 0.2 - 1.4 % [facility] ABS Neutrophils 6.22 2.20 - 8.85 K/cmm [facility] ABS Lymphs 2.91 1.09 - 3.30 K/cmm [facility] ABS Monocytes 0.66 0.1 - 0.8 K/cmm [facility] ABS Eosinophils 0.04 0.03 - 0.61 K/cmm [facility] ABS Basophils 0.07 0.01 - 0.11 K/cmm [facility] Type of Diff: Automated [facility] Specimen Performing Organization Address City/[facility]/ZIP Code Phon e Number [facility] [address] [place] [address] SERVICES [facility] [address] [place] [address] (ABNORMAL) HEMAGRAM (08/08/2013 11:58 EDT) Pathologist Sig nature WBC 9.90 4.0 - 12.4 K/cmm [facility] RBC 5.23 (H) 3.86 - 5.04 M/cmm [facility] Hemoglobin 14.9 11.6 - 15.2 gm/dl [facility] HCT 43.7 34.9 - 44.4 % [facility] MCV 84 81 - 98 fl [facility] MCH 28.5 26.7 - 33.3 pg [facility] MCHC 34.1 32.1 - 35.9 gm/dl [facility] PLT 258 141 - 320 K/cmm [facility] RDW-CV 12.9 11.7 - 14.6 % [facility] Specimen Performing Organization Address [facility] Phon e Number [facility] [address] [place] [address] SERVICES [facility] [address] [place] [address] (ABNORMAL) COMPREHENSIVE METABOLIC PANEL (CMP) (08/08/2013 11:58 EDT) Pathologist [facility] nature Potassium 4.4 3.5 - 5.0 mEq/L [facility] Sodium 142 136 - 145 mEq/L [facility] Chloride 104 96 - 110 mEq/L [facility] CO2 24 24 - 32 mEq/L [facility] Total Alkaline 71 38 - 126 U/L [facility] Phosphatase Bilirubin, Total 0.6 <1.4 mg/dl [facility] AST 12 (L) 15 - 46 U/L [facility] ALT 21 9 - 52 U/L [facility] Albumin 4.5 3.4 - 4.9 g/dl [facility] Total Protein 7.3 6.5 - 8.3 g/dl [facility] Creatinine 0.70 0.52 - 1.04 [facility] mg/dl GFR, Calculated >60 >60 [facility] ml/min/1.73m2 BUN 10 10 - 26 mg/dl [facility] Calcium 9.7 8.5 - 10.5 [facility] mg/dl Calculated Calcium 9.6 8.5 - 10.5 [facility] mg/dl Glucose, Serum 123 (H) 70 - 100 mg/dl [facility] Fasting? Unknown [facility] Specimen Blood specimen (specimen) Performing Organization Address City/[facility] Code Phon e Number [facility] [address] [place] [address] SERVICES [facility] [address] [place] [address] TESTS ADDED BY PHONE (08/07/2013 20:38 EDT) Tests to be added Cancelled by Physician/Nursing Unit [facility] Comment: ORDERED IN ERROR Corrected on 09/09 AT 0956: Previously reported as FT4 ,TSH AND EBVPAN Diagnosis Code Cancelled by Physician/Nursing Unit [facility] Comment: ORDERED IN ERROR Corrected on 09/09 AT 0956: Previously reported as FATOU E Who Called Cancelled by Physician/Nursing Unit [facility]ANJ[facility] Comment: ORDERED IN ERROR Corrected on 09/09 AT 0956: Previously reported as NANCY DPA Location Code Cancelled by Physician/Nursing Unit [facility] Comment: ORDERED IN ERROR Corrected on 09/09 AT 0956: Previously reported as DPA Read Cancelled by Physician/Nursing Unit [facility] Back/Confirmed? Comment: ORDERED IN ERROR Corrected on 09/09 AT 0956: Previously reported as YES Specimen Performing Organization Address City/State/[facility] Code Phon e Number [facility] [address] [place] [address] SERVICES [facility] [address] [place] [address] DRUG SCREEN 6 (08/07/2013 20:38 EDT) Amphetamine Screen, Negative screen. [facility] Comment: LAB Confirmation testing available upon request. Suitable for medical purposes only. Will not detect all drugs within class. Cutoff = 1000 ng/ml Specimen type is urine. Barbiturate Screen, Negative screen. [facility] Comment: LAB Confirmation testing available upon request. Suitable for medical purposes only. Will not detect all drugs within class. Cutoff = 300 ng/ml Specimen type is urine. Benzodiazepine Screen, Negative screen. [facility] Comment: LAB Confirmation testing available upon request. Suitable for medical purposes only. Will not detect all drugs within class. Assay less sensitive to Lorazepam and metabolites. Cutoff = 200 ng/ml Specimen type is urine. Cannabinoid Scrn, Ur Negative screen. [facility] Comment: LAB Confirmation testing available upon request. Suitable for medical purposes only. Will not detect all drugs within class. Cutoff = 50 ng/ml Specimen type is urine. Opiate Scrn, Ur Negative screen. [facility] Comment: LAB Confirmation testing available upon request. Suitable for medical purposes only. Will not detect all drugs within class. Cutoff = 300 ng/ml Assay less sensitive to oxycodone and metabolites. Assay does not detect methadone. Specimen type is urine. Cocaine Metabolites Negative screen. [facility] Comment: LAB Confirmation testing available upon request. Suitable for medical purposes only. Will not detect all drugs within class. Cutoff = 300 ng/ml Specimen type is urine. Specimen Urine (substance) - Urine Performing Organization Address [facility] Phon e Number [facility] [address] [place] [address] SERVICES [facility] [address] [place] [address] GLUCOSE, GLUCOMETER (08/07/2013 19:34 EDT) [facility] Signature Glucose, 100 70 - 100 [facility] Fingerstick mg/dl LAB Bookbinder Apprentice [place] [id number]: [facility] Test Performed by LAB Nursing Services Specimen Performing Organization Address [facility] Phon e Number [facility] [address] [place] [phone] SERVICES [facility] [address] [place] [address] documented in this encounter Visit Diagnoses Diagnosis Paranoid schizophrenia ([facility]) (HCC) - Primary Paranoid schizophrenia, unspecified cond ition documented in this encounter Administered Medications Inactive Administered Medications - up to 3 most recent administrations Medication Order MAR Action Action Date Dose Rate Site LORazepam (ATIVAN) tablet 1 mg Given 08/08/2013 16:45 EDT 1 mg 1 mg, oral, NOW X1, 1 dose, On Wed08/07/13 at 2245, STAT Given 08/07/2013 22:59 EDT 1 mg LORazepam (ATIVAN) tablet 1 mg Given 08/08/2013 11:47 EDT 0.5 mg 1 mg, oral, EVERY 4 HOURS PRN, Starting on Wed08/07/13 at 2232, Until Wed08/08/13 at 1910, Anxiety, STAT ziprasidone (GEODON) capsule 60 mg Given 08/07/2013 22:59 EDT 60 mg 60 mg, oral, NOW X1, 1 dose, On Wed08/07/13 at 2245, STAT ziprasidone (GEODON) capsule 60 mg Given 08/08/2013 13:34 EDT 60 mg 60 mg, oral, NOW X1, 1 dose, On 08/08/13 at 1315, STAT documented in this encounter Discontinued Medications Medication Sig Discontinue Reason Start Date End Date Vit-Iron Take 1 Cap by mouth 03/22/201204/2013 Fumarate-FA ( daily. 19) 29-1 mg Chew ziprasidone (GEODON) 40 Take 40 mg by mouth 2 08/07/2013 mg capsule times daily. calcium carbonate Take 2 Tabs by mouth (TUMS) 200 mg calcium as needed. (500 mg) Indications: ChewIndications: DYSPEPSIA dyspepsia documented as of this encounter Active and Recently Administered Medications Times are shown in EDT. Scheduled Medication Order 08/06/2013 08/07/2013 08/08/2013 LORazepam (ATIVAN) tablet 1 mg (COMPLETED) 225 (Given - Provider: Valeria Moore RN) 1645 (Given - Provider: Denisse Alfonso RN) 1 mg, oral, NOW X1, 1 dose, Wed08/07/13 at 2245, STAT ziprasidone (GEODON) capsule 60 mg (COMPLETED) 2259 (Given - Provider: Valeria Moore RN) 60 mg, oral, NOW X1, 1 dose, Wed08/07/13 at 2245 ziprasidone (GEODON) capsule 60 mg (COMPLETED) 1334 (Given - Provider: Denisse Alfonso RN) 60 mg, oral, NOW X1, 1 dose, Wed08/08/13 at 1315 PRN Medication Order 08/06/2013 08/07/2013 08/08/2013 LORazepam (ATIVAN) tablet 1 mg (CANCELED) 1147 (Given - Provider: Denisse Alfonso RN - Comment: Pt requested just half a dose at this time.) 1 mg, oral, EVERY 4 HOURS PRN, Starting 08/07/13 at 2232, Until Wed08/08/13 at 1910, Anxiety, STAT documented in this encounter Orders Medications Ordered That Might Not Have Count Last Ord ered Date First Ordered Date Been Administered ziprasidone (GEODON) capsule 20 mg 1 08/08/2013 Lab Orders Without Results Count Last Ordered Date Fir st Ordered Date POCT GLUCOSE 1 08/07/2013 documented in this encounter Care Teams Director Of Field Sales Relationship Specialty Start Date End Date Stephon Marquez MD PCP - General 08/06/13 11/06/15 documented as of this encounter
--- OUTSIDE RECORDS SUMMARY | 2021-08-16 23:33 | XMS_ITS | Encounter Summary ---
:[address] [facility] Address [address] [place] [address] Care Team Providers Name Role Phone Noe Kurtz MD Primary Care Provider Reason for Visit Reason Onset Date Comments Update 07/18/2012 Encounter Details Date Type Department Care Team Description 07/18/2012 Telephone [facility] Family Noe Kurtz MD Update Medicine - [address] [address] [phone] (Wo rk) Social History Tobacco Use Types [...] this encounter Miscellaneous Notes Telephone Encounter - Carole Peng - 07/18/2012 1304 EDT Liz called from the [facility], have not been able to contact patient, she has not returned calls. documented in this encounter Plan of Treatment Not on filedocumented as of this encounter Visit Diagnoses Not on filedocumented in this encounter Care Teams Cleat Layer Relationship Specialty Start Date End Date Noe Kurtz MD PCP - General 04/01/12 05/02/13 documented as of this encounter
--- OUTSIDE RECORDS SUMMARY | 2021-08-16 23:33 | XMS_ITS | Encounter Summary ---
:1990 Author Organization [facility] Address [address] [place] [address] Care Team Providers Name Role Phone Noe Kurtz MD Primary Care Provider Encounter Details Date Type Department Care Team Description 05/03/2012 Community Health Team [facility] Manuel Thomas [address], [address] [place], [place] [id number] Social History Tobacco Use Types Packs/Day Years [...] this encounter Progress Notes Lili Thomas - 05/03/2012 1049 EST ..Total Time: 15 minutes Referrals: [facility] Follow-Up: I will follow up Status: Active Outreach call to patient. She stated she will not be able to get the [facility] at 8 am for walk in. She would like an appointment after 4 pm. Reports she is responding well to Abilify. States she is happier, not numb. Still experiencing suicidal ideation but reports thoughts are less frequent and denies having any today. Reports she feels safe today. Spoke to Monica Mann, assisted living coordinator at [facility] [phone]. She stated she has just returned from a leave of absence and can now offer patient an appointment time since walk in is not working for her. Patient will have to call her directly. She said she will most likely be referred to Keri -the therapist from [facility] on . Left voicemail for patient with Monica's contact information and encouraged her to call [facility] for an appointment time. documented in this encounter Plan of Treatment Not on filedocumented as of this encounter Visit Diagnoses Not on filedocumented in this encounter Care Teams Church History Professor Relationship Specialty Start Date End Date Noe Kurtz MD PCP - General 04/01/12 05/02/13 documented as of this encounter
--- OUTSIDE RECORDS SUMMARY | 2021-08-16 23:33 | XMS_ITS | Encounter Summary ---
:1990 Author Organization [facility] Address [address] [place] [address] Care Team Providers Name Role Phone Noe Kurtz MD Primary Care Provider Reason for Visit Reason Comments Decreased Movement Encounter Details Date Type Department Care Team Description 06/24/2012 Hospital Encounter [facility] Gosia Loza, Birthing Center Unit MD [address] [place] [address] Social History Tobacco Use Types [...] Sign Reading Time Taken Comments Blood Pressure 123/60 06/24/2012 1149 EDT Pulse 104 06/24/2012 1149 EDT Temperature 37 ??C (98.6 ??F) 06/24/2012 1149 EDT Respiratory Rate 18 06/24/2012 1149 EDT Oxygen Saturation - - Inhaled Oxygen Concentration - - Weight 117.9 kg (260 lb) 06/24/2012 1149 EDT Height 166.4 cm (5' 5.5) 06/24/2012 1149 EDT Body Mass Index 42.61 06/24/2012 1149 EDT documented in this encounter Functional Status Cognitive Status Response Date of Assessment Because of a physical, mental, or emotional condition, do Ye s 09/04/2011 you have serious difficulty concentrating, remembering, or making decisions? (5 years old or older) documented as of this encounter Discharge Instructions Yrn Valencai MD - 06/24/2012 L&D Discharge Instructions Call your provider if: ?? Your water breaks ?? There's any bright red bleeding ?? You are not feeling the baby move ?? Severe headaches and/or blurry vision ?? Contractions are closer together and/or stronger, or you are having constant pain Medications: ?? Continue any present medication Activity: ?? Drink plenty of fluids and eat well ?? As tolerated, lie on your left side while resting/napping Call Provider's Office For: ?? Keep your next scheduled appointment Yrn Johnson MD 06/24/2012 13:21 documented in this encounter Medications at Time of Discharge Medication Sig Dispensed Refills Start Date End Date aripiprazole (ABILIFY) 20 Take 1 Tab by mouth 30 Tab 3 0 05/18/2012 01/17/2016 mg tabletIndications: daily. Paranoid schizophrenia (HCC-CMS) (HCC) calcium carbonate (TUMS) Take 2 Tabs by mouth 0 08/07/2013 200 mg calcium (500 mg) as needed. ChewIndications: Indications: dyspepsia DYSPEPSIA Vit-Iron Take 1 Cap by mouth 30 Cap 5 3 08/07/2013 Fumarate-FA ( 19) daily. 29-1 mg Chew documented as of this encounter Discharge Disposition Disposition Code Departure Means Destination Home or Self Care documented in this encounter Progress Notes Elsa Cunningham - 06/24/2012 1338 EDT Discharge instructions reviewed with pt by Ilia Hill RN. Pt discharged home with boyfriend. Yrn Johnson MD - 06/24/2012 1251 EDT Labor and Delivery Short Stay History of Present Illness: Mary Grace Harris is a 21 y.o. at 35w2d with history of bipolar disorder & schizophrenia onaripiprazole who presented to clinic with report of reduced movement in last 2 days. Reported feeling the fetus move 2x in last 2 days. FHR by Doppler in clinic was 120s. Patient not feeling contractions, has felt movement since being seen at clinic and continuing to feel FM now on L&D, no gush of fluid, no bleeding. Patient was referred to L&D for modified BPP. Review Of Systems: As per HPI Past Medical History: Medical History: Past Medical History Diagnosis Date ??? Tendinitis ??? Torticollis ??? Laceration 12/04/06 left 5th digit tendon,nerve laceration ??? Myofascial pain right shoulder and neck myofascial pain ??? Psychiatric problem anxiety ??? Mental disorder ??? Fibromyalgia ??? Scoliosis ??? Asthma ??? Asthma, exercise induced ??? Schizophrenia, paranoid ??? Sciatica Surgical History: Past Surgical History Procedure Date ??? Finger surgery left ??? [place] tooth extraction Current Medications: No current facility-administered medications on file prior to encounter. Current Outpatient Prescriptions on File Prior to Encounter Medication Sig Dispense Refill ??? aripiprazole (ABILIFY) 20 mg tablet Take 1 Tab by mouth daily. 30 Tab 3 ??? Vit-Iron Fumarate-FA ( 19) 29-1 mg Chew Take 1 Cap by mouth daily. 30 Cap 5 Allergies: Allergies Allergen Reactions ??? Gluten Protein ??? Haldol (Haloperidol Lactate) paralysis ??? Paxil (Paroxetine Hcl) Nausea And Vomiting Objective: Physical Exam: BP 123/60 Pulse 104 Temp(Src) 37 ??C (98.6 ??F) (Tympanic) Resp 18 Ht 166.4 cm (65.5) Wt 117.935 kg (260 lb) BMI 42.61 kg/m2 General: NAD, sitting in bed, talking with FOB Respiratory: Clear to auscultation, unlabored breathing Cardiac: Normal PMI, regular rate & rhythm, normal S1,S2, no murmurs, rubs, or gallops Abdomen: gravid SVE: deferred FHT: baseline 130, mod variability, +accel, neg decel [place]: Q7 min Laboratory: Lab Results Component Value Date WBC 12.67* 04/29/2012 WBC 8.65 05/01/2008 HGB 12.1 04/29/2012 HGB 13.8 05/01/2008 HCT 35.7 04/29/2012 HCT 40.2 05/01/2008 MCV 87 04/29/2012 MCV 85 05/01/2008 PLT 220 04/29/2012 PLT 267 05/01/2008 Lab Results Component Value Date CREATININE 0.64 09/04/2011 CREATININE 0.62* 05/01/2008 BUN 14 09/04/2011 BUN 7* 05/01/2008 NA 139 09/04/2011 NA 140 05/01/2008 K 4.0 09/04/2011 K 4.7 05/01/2008 CL 102 09/04/2011 CL 101 05/01/2008 CO2 22* 09/04/2011 CO2 28 05/01/2008 Radiology: ERNIE: 16 Assessment & Plan: Mary Grace Harris is a 21 y.o. at 35w2d with presenting for reduced movement over last 2days. Category 1 FHTs. Normal NST. ERNIE WNL. In light of reassuring modified BPP, appropriate for d/director ehs home. Patient is feeling reassured now that she is feeling movement and has had normal modified BPP. 1. D/c home 2. Resume prior medications 3. Indications for return to hospital reviewed with patient Discussed with Dr. Kurtz. Notifed Dr. Navarro. Yrn Johnson MD Tube Station Attendant [phone] 06/24/2012 12:59 ELTYElsa nguyen - 06/24/2012 1155 EDT Patient admitted in to room 4 with complaints of decreased movement for the last two days. FHRauscultated in FP office today, then pt sent to L&D for NST. Patient voided, VS obtained, monitors on and explained, oriented to room and unit, call light in reach. Patient is alert, awake, lungs clear, abdomen soft, denies CHURCH, blurred vision, epigastric pain, VB, vigorous and persistent FM noted, trace swelling noted in hands and feet. Patient states pain 0/10. Ctx noted on tracing, palpate very mild. Pt denies feeling ctx at all. Pt states she would like to go home now that she's heard movement on the monitor. Dr. Johnson notified, will be in to see pt. ELSA CUNNINGHAM RN 06/24/2012 11:[address] Johnson and Dr. Bose in for ultrasound/AFI documented in this encounter Miscellaneous Notes Scanned Note-Null - RN CLINICAL COORDINATOR, SCAN 2 - 06/30/2012 0806 EDT canned Note- Null - RN CLINICAL COORDINATOR, SCAN 2 - 06/24/2012 1510 EDT canned Note- Null - RN CLINICAL COORDINATOR, SCAN 2 - 06/24/2012 1510 EDT documented in this encounter Plan of Treatment Not on filedocumented as of this encounter Procedures Procedure Name Priority Date/Time Associated Diagnosis Comme nts LD US LIMITED OB Routine 06/24/2012 12:56 Results for this SCAN EDT procedure are i n the results section. documented in this encounter Results LD US LIMITED OB SCAN (06/24/2012 12:56 EDT) Anatomical Region Laterality Modality Other Specimen Narrative [facility] - 07/15/2012 14:25 EDT Indication: Reduced movements. History: Age: 21 years. : 1 Para: 0. LMP not known. Current : Pre- data: Weight 143 lbs. Height 5 ft 3 ins. BMI 25.1. Dating: Best Overall Assessment: 05/23/2012 EDC: 07/27/2012 Assessed GA: 35w2d The Best Overall Assessment is based on an earlier assessment on 02/11/2012. General Evaluation: heart activity: Present. hea rt rate: 135 bpm. Presentation: Head LLQ. Amniotic Fluid: ERNIE ??16.4 cm. Maximal v ertical pocket 7.8 cm. Wellbeing Assessment: Amniotic fluid: ERNIE: 16.4 cm. MVP: 7.8 c m. Q1: 7.8 cm. Q2: 2.0 cm. Q3: 3.5 cm. Q4: 3.3 cm. Non Stress Test: reactive. Report Summary: Impression: 45876 Limited obstetrical ul trasound This is a burns gestation. The anatomy was not reviewed in detail. movement was noted. The amniotic fluid volume appears normal. NST is reactive. Recommendations: Follow up as clinically indicated. Addendum Begins Indication: Reduced movements. History: Age: 21 years. : 1 Para: 0. LMP not known. Current : Pre- data: Weight 143 lbs. Height 5 ft 3 ins. BMI 25.1. Dating: Best Overall Assessment: 05/23/2012 EDC: 07/27/2012 Assessed GA: 35w2d The Best Overall Assessment is based on an earlier assessment on 02/11/2012. General Evaluation: heart activity: Present. hea rt rate: 135 bpm. Presentation: Head LLQ. Amniotic Fluid: ERNIE ??16.4 cm. Maximal v ertical pocket 7.8 cm. Wellbeing Assessment: Amniotic fluid: ERNIE: 16.4 cm. MVP: 7.8 c m. Q1: 7.8 cm. Q2: 2.0 cm. Q3: 3.5 cm. Q4: 3.3 cm. Non Stress Test: reactive. Report Summary: Impression: 17702 Limited obstetrical ul trasound This is a burns gestation. The anatomy was not reviewed in detail. movement was noted. The amniotic fluid volume appears normal. NST is reactive. Recommendations: Follow up as clinically indicated. Addendum Ends Procedure Note 07/15/2012 Indication: Reduced movements. History: Age: 21 years. : 1 Para: 0. LMP not known. Current : Pre- data: Weight 143 lbs. Height 5 ft 3 ins. BMI 25.1. Dating: Best Overall Assessment: 05/23/2012 EDC: 07/27/2012 Assessed GA: 35w2d The Best Overall Assessment is based on an earlier assessment on 02/11/2012. General Evaluation: heart activity: Present. hea rt rate: 135 bpm. Presentation: Head LLQ. Amniotic Fluid: ERNIE 16.4 cm. Maximal kailash tical pocket 7.8 cm. Wellbeing Assessment: Amniotic fluid: ERNIE: 16.4 cm. MVP: 7.8 c m. Q1: 7.8 cm. Q2: 2.0 cm. Q3: 3.5 cm. Q4: 3.3 cm. Non Stress Test: reactive. Report Summary: Impression: 61080 Limited obstetrical ul trasound This is a burns gestation. The anatomy was not reviewed in detail. movement was noted. The amniotic fluid volume appears normal. NST is reactive. Recommendations: Follow up as clinically indicated. Addendum Begins Indication: Reduced movements. History: Age: 21 years. : 1 Para: 0. LMP not known. Current : Pre- data: Weight 143 lbs. Height 5 ft 3 ins. BMI 25.1. Dating: Best Overall Assessment: 05/23/2012 EDC: 07/27/2012 Assessed GA: 35w2d The Best Overall Assessment is based on an earlier assessment on 02/11/2012. General Evaluation: heart activity: Present. hea rt rate: 135 bpm. Presentation: Head LLQ. Amniotic Fluid: ERNIE 16.4 cm. Maximal kailash tical pocket 7.8 cm. Wellbeing Assessment: Amniotic fluid: ERNIE: 16.4 cm. MVP: 7.8 c m. Q1: 7.8 cm. Q2: 2.0 cm. Q3: 3.5 cm. Q4: 3.3 cm. Non Stress Test: reactive. Report Summary: Impression: [id number] Limited obstetrical ul trasound This is a burns gestation. The anatomy was not reviewed in detail. movement was noted. The amniotic fluid volume appears normal. NST is reactive. Recommendations: Follow up as clinically indicated. Addendum Ends Performing Organization Address City/State/ZIP Code Phon e Number [facility] MATERNAL MEDICINE [facility] documented in this encounter Visit Diagnoses Not on filedocumented in this encounter Historical Medications This list may reflect changes made after this encounter. Medication Sig Dispensed Refills Start Date End Date calcium carbonate Take 2 Tabs by mouth 0 08/07/2013 (TUMS) 200 mg calcium as needed. (500 mg) Indications: DYSPEPSIA ChewIndications: dyspepsia added in this encounter Orders Discharge Count Last Ordered Date First Ordered Date DISCHARGE PATIENT 1 06/24/2012 documented in this encounter Care Teams Peanut Sorter Relationship Specialty Start Date End Date Noe Kurtz MD PCP - General 04/01/12 05/02/13 documented as of this encounter
--- OUTSIDE RECORDS SUMMARY | 2021-08-16 23:33 | XMS_ITS | Encounter Summary ---
:1990 Author Organization [facility] Address [address] [place] [address] Care Team Providers Name Role Phone Filipe Bose MD Primary Care Provider Reason for Visit Reason Onset Date Comments Medications Refill 02/26/2016 Encounter Details Date Type Department Care Team Description 02/26/2016 Refill [facility] Dyllan Bose MD Medications Refill Family [facility] - [address] [place] [id number] [place] [address] [address] [place], [place] [id number] [phone] Social History Tobacco Use Types Packs/Day Years [...] 1 Cap by mouth 30 Each 5 02/27/2016 03/25/2016 capsuleIndications: daily. Paranoid schizophrenia (HCC-CMS) ([facility]) ziprasidone (GEODON) 60 mg Take 2 Caps by 60 Each 5 02/2603/25/2016 capsuleIndications: mouth at bedtime. Paranoid schizophrenia (HCC-CMS) ([facility]) perphenazine (TRILAFON) 4 Take 1 Tab by mouth 30 Tab 5 1 04/28/2015 03/25/2016 mg tabletIndications: as needed (can take Paranoid schizophrenia 1-2 tabs PRN in (HCC-CMS) ([facility]) addition to her 2 mg (maximum 10 mg dose)). perphenazine (TRILAFON) 2 Take 1 Tab by mouth 30 Tab 5 1 04/28/2015 03/25/2016 mg tabletIndications: daily. Paranoid schizophrenia (HCC-CMS) ([facility]) LORazepam (ATIVAN) 1 mg Take 1 Tab by mouth 15 Tab 1 03/18/2016 tablet 3 times daily as needed for Anxiety. Daily Max: 3 mg cyclobenzaprine (FLEXERIL) Take 1 Tab by mouth 30 Tab 1 02/26/2016 03/24/2016 10 mg tablet 2 times daily as needed for Muscle Spasms. sertraline (ZOLOFT) 100 mg Take 1 Tab by mouth 30 Tab 5 02/26/2016 03/25/2016 tabletIndications: at bedtime. Unknown Paranoid schizophrenia dose ([facility]-CMS) ([facility]) documented in this encounter Miscellaneous Notes Telephone Encounter - Crys Ribeiro RN - 02/26/2016 1440 EST Dose confirmed by pharmacy elephone Encounter - Nadine Bentley - 02/26/2016 1024 EST Medication(s) Requested: Cyclobenzaprine Pharmacy: [facility] Last Refill Date: Listed as historical medication Last Visit Date: 01/17/16 Next Visit Date: Visit date not found Is patient out of medication? Yes Medication(s) Requested: Lorazepam Last Refill Date: 08/07/13 #15 No refills Is patient out of medication? Yes Medication(s) Requested: Perphenazine 2 mg & 4 mg Last Refill Date: listed as historical medication Is patient out of medication? Yes Medication(s) Requested: Ziprasidone 60 mg & 80 mg Last Refill Date: Listed as historical medication Is patient out of medication? Yes Medication(s) Requested: Sertraline Last Refill Date: Listed as historical medication Is patient out of medication? Yes Nadine Bentley 02/26/2016 10:31 documented in this encounter Plan of Treatment Not on filedocumented as of this encounter Visit Diagnoses Diagnosis Paranoid schizophrenia (HCC-CMS) ([facility]) - Primary Paranoid schizophrenia, unspecified cond ition documented in this encounter Discontinued Medications Medication Sig Discontinue Reason Start Date End Date SERTRALINE HCL (SERTRALINE Take 100 mg by Reorder 02/26/2016 ORAL)Indications: Paranoid mouth at bedtime. schizophrenia (HCC-CMS) Unknown dose ([facility]) cyclobenzaprine (FLEXERIL) Take 10 mg by Reorder 02/26/2016 10 mg tablet mouth once. LORazepam (ATIVAN) 1 mg Take 0.5 Tabs by Reorder 08/07/2013 02/26/2016 tablet mouth every 4 hours as needed for Anxiety. perphenazine (TRILAFON) 2 Take 2 mg by mouth Reorder 02/26/2016 mg tabletIndications: daily. Paranoid schizophrenia (HCC-CMS) ([facility]) perphenazine (TRILAFON) 4 Take 4 mg by mouth Reorder 02/26/2016 mg tabletIndications: as needed (can Paranoid schizophrenia take 1-2 tabs PRN (HCC-CMS) ([facility]) in addition to her 2 mg (maximum 10 mg dose)). ziprasidone (GEODON) 20 mg Take 3 Caps by 08/07/2013 02/27/2016 capsule mouth 2 times daily. ziprasidone (GEODON) 60 mg Take 120 mg by Reorder 02/26/2016 capsuleIndications: mouth at bedtime. Paranoid schizophrenia (HCC-CMS) ([facility]) ziprasidone (GEODON) 80 mg Take 80 mg by Reorder 02/26/2016 capsuleIndications: mouth daily. Paranoid schizophrenia (HCC-CMS) ([facility]) documented as of this encounter Care Teams Watch Engineer Relationship Specialty Start Date End Date Filipe Bose MD PCP - General 11/07/15 12/01/16 documented as of this encounter
--- OUTSIDE RECORDS SUMMARY | 2021-08-16 23:33 | XMS_ITS | Encounter Summary ---
:1990 Author Organization [facility] Address [address] [place] [address] Care Team Providers Name Role Phone Noe Kurtz MD Primary Care Provider Reason for Visit Reason Onset Date Comments Medication Management 04/29/2012 Encounter Details Date Type Department Care Team Description 04/29/2012 Telephone [facility] Noe Kurtz, [facility] Management Family Medicine - [address] [id number] [place] [address] [phone] Social History Tobacco Use Types Packs/Day Years [...] Telephone Encounter - Noe Kurtz MD - 04/29/2012 4384 EST Called patient to discuss correct dosing of medications. Advised patient take 15mg of Abilify in evening and 10mg of zyprexa in am. Plan to d/c zyprexa at next office visit in 2 weeks if patient remains stable. Patient aware and understands plan. Noe Kurtz MD, MPH PGY - 2 Family Medicine, 2176 documented in this encounter Plan of Treatment Not on filedocumented as of this encounter Visit Diagnoses Not on filedocumented in this encounter Care Teams Haulpak Driver Relationship Specialty Start Date End Date Noe Kurtz MD PCP - General 04/01/12 05/02/13 documented as of this encounter
--- OUTSIDE RECORDS SUMMARY | 2021-08-16 23:34 | XMS_ITS | Encounter Summary ---
:1990 Author Organization [facility] Address [address] [place] [address] Care Team Providers Name Role Phone Mandy Beck DO Primary Care Provider Encounter Details Date Type Department Care Team Description 01/09/2011 Orders Only Non [facility] Ancillary Brayan Jose Gastritis/duodenitis Services MD Liz (Primary Dx) [address] [facility] [address] [place] [address] (Wo rk) Social History Tobacco Use Types Packs/Day Years Used Date Current Some Day Smoker 0.25 Quit : 11/06/2009 Smokeless Tobacco: Never Used Comments: occasional Alcohol Use Standard Drinks/Week Comments No 0 (1 standard drink = 0.6 oz pure alcoho l) occ Sex Assigned at Date Recorded Not on file documented as of this encounter Plan of Treatment Not on filedocumented as of this encounter Results HELICOBACTER PYLORI IGG ANTIBODY (01/10/2011 12:56 EDT) H. Pylori IgG Ab Negative [facility] Comment: Assayed utilizing the [employer] system. Values may vary with other methods. Specimen Blood specimen (specimen) Performing Organization Address City/State/ZIP Code Phon e Number [facility] [address] [place] [address] SERVICES [facility] [address] [place] [address] documented in this encounter Visit Diagnoses Diagnosis Unspecified gastritis and gastroduodenit is without mention of hemorrhage - Primary documented in this encounter Care Teams Production Clerks Supervisor Relationship Specialty Start Date End Date Mandy Beck DO PCP - General 9/2/11 1/13/13 [address] [place] [address] documented as of this encounter
--- OUTSIDE RECORDS SUMMARY | 2021-08-16 23:34 | XMS_ITS | Encounter Summary ---
:[address] [facility] Address [address] [place] [address] Care Team Providers Name Role Phone Mandy Beck DO Primary Care Provider Encounter Details Date Type Department Care Team Description 03/20/2011 Results Only [facility] Mandy Beck, Laboratory Services - [id number] [place] [id number] [phone] Social History Tobacco Use Types Packs/Day Years [...] Diagnosis Comme nts PAP TEST- RESULT Routine 03/20/2011 0:00 EST Resu lts for this ONLY procedure are i n the results section. documented in this encounter Results PAP TEST- RESULT ONLY (03/20/2011 0:00 EST) Pathology Report: CYTOPATHOLOGY REPORT [facility] Reports generated via electronic interface contain jason ginal data; however they are lacking the format of the original re port. Caution should be taken when reading/interpreting unfo rmatted reports. Name: ? YASMANY EUBANKS ? Accession #: ? [id number] : ? 1990 (Age: 20) ??F ?Collect Date: ? 03/08 Location: ? [facility] ? Receive Date : ? 03/24/2011 Provider: ?MANDY ADRIANNE DO Copy to: ? Specimen/Source: ? Pap Test, Cervix/Endocervix, ThinPrep Imaging System with manual evaluation Last Menstrual Period: ? 03/17/2011 ? SPECIMEN ADEQUACY ? Satisfactory for Evaluation - transformation zone component absent - scant squamous epithelial component secondary to exc essive blood GENERAL CATEGORIZATION ? Negative for Intraepithelial Lesion or Malignan cy ? Document reviewed and electronically signed by: ? YVAN Stewart(ASCP) ? Report Date: ??03/26/2011 11:26 End of Report Specimen Performing Organization Address City/State/ZIP Code Phon e Number [facility] [address] [place] [address] SERVICES [facility] [address] [place] [address] documented in this encounter Visit Diagnoses Not on filedocumented in this encounter Care Teams Manager Business Relationship Specialty Start Date End Date Mandy Beck DO PCP - General 11/07/10 03/20/[address] [place] [place] [address] documented as of this encounter
--- OUTSIDE RECORDS SUMMARY | 2021-08-16 23:34 | XMS_ITS | Encounter Summary ---
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 communication SUICIDE RISK ASSESSMENT: Modifiable Risk Factors: Hopelessness;Helplessness;Insomnia Non-modifiable risk factors: ;Poor social support;Unemployment;Mood disorder;Panic disorder;Presence of comorbidity (more than one psychiatric disorder) Overall Acute Risk Rating: low Overall Chronic Risk Rating: moderate Interventions / Plan: IMMEDIATE PLAN OF TREATMENT: Admit to [address] Psychosis NOS: Locus level 4 with frequent observation Check usual admission labs -Consider antipsychotics -Consider MRI -Encourage group attendance and participation in milieu -Monitor psychotic symptoms Anxiety: - lorazepam qHS - monitor symptoms Chronic Myofascial Pain: - continue home meds (dilaudid 2mg at breakfast and lunch) - Tylenol as needed for pain Acuity / Indications for admission: This patient requires active treatment in the Inpatient Psychiatric Unit because of the following: Mental disorder causing major disability in social, interpersonal, occupational, and/or educational functioning that is leading to dangerous or life-threatening functioning and that can only be addressedin an acute inpatient setting. PLAN TO RESTRICT ACCESS TO FIREARMS (outpatient setting): Access to firearms? Need to assess prior to discharge. Nadine Wilkes MD 09/04/2011 18:01 Attestation statement: I saw and examined the patient and agree with the above history assessment and treatment plan. Patient continues to be guarded and delusional with thoughts of having been born with fangs which were cut off my her grand parents, having mysterious overlas with the goddess and noting odd correspondances between what she sees on the internet and her live. Has thoughts of jumping off a building but not an immediate intent. Nevertheless, we should monitor her thoughts and behavior. Dominique Ortiz MD documented in this encounter Miscellaneous Notes Scanned Note-Null - ACCOUNT RELATIONSHIP MANAGER, SCAN 2 - 10/12/2011 1446 EDT canned Note- Null - ACCOUNT RELATIONSHIP MANAGER, SCAN 2 - 09/14/2011 1324 EDT canned Note- Null - ACCOUNT RELATIONSHIP MANAGER, SCAN 2 - 09/14/2011 1324 EDT canned Note- Null - ACCOUNT RELATIONSHIP MANAGER, SCAN 2 - 09/14/2011 1324 EDT canned Note- Null - ACCOUNT RELATIONSHIP MANAGER, SCAN 2 - 09/14/2011 1324 EDT lan of Care - ACCOUNT RELATIONSHIP MANAGER, SCAN 2 - 09/14/2011 1324 EDT lan of Care - Valdemar Jean - 09/07/2011 1729 EDT Active Multi-Disciplinary problems: Hospital orientation [899851] (09/04/11) ALTERED THOUGHT PROCESSES [777644] (09/04/11) ALTERATION IN SLEEP [051545] (09/05/11) ANXIETY [450736] (09/07/11) Discharge Planning [820486] (09/07/11) SENSORY PERCEPTUAL ALTERATION [347299] (09/07/11) POTENTIAL FOR HARM TO SELF OR OTHERS [663058] (09/07/11) Ineffective Coping [188255] (09/07/11) ALTERATION IN SLEEP [029691] (09/07/11) POTENTIAL FOR SUBSTANCE WITHDRAWAL [773063] (09/07/11) ANXIETY [665882] (09/07/11) SELF CARE DEFICIT [920664] (09/07/11) Elopement Risk [000089] (09/07/11) Defensive Coping [049450] (09/07/11) Data: Pt expressed her dissatisfaction with her treatment here saying she did not get adequate care and wishes to leave. On the phone with her grandmother with whom she says she can stay. Conversation included reference to last October 2010 when her mind began to perceive things differently, Pt described. Having inadequate treatment and at times saying she received too much medications and at times not enough. After much discussion about her wish to tell her concerns to the person in charge. As had left for the day the ANC was called and helped to facilitate an ama discharge with the patient who declined to sign the form.. Medication from the pharmacy was retrieved, cell phone cord, luggage and belongings collected. She left saying that she may at some time in the future need to return but not now. Pt left at 1750. Action: Finalize notations in the chart, close case for now. Response: Discharged. Valdemar Jean RN 09/07/2011 17:30 lan of [place]ia Robb - 09/07/2011 1514 EDT Problem: Discharge Planning Goal: Patient/Family Participate In Treatment And DC Plans Outcome: Ongoing Active Multi-Disciplinary problems: Hospital orientation [703482] (09/04/11) ALTERED THOUGHT PROCESSES [624220] (09/04/11) ALTERATION IN SLEEP [744963] (09/05/11) ANXIETY [578011] (09/07/11) Discharge Planning [666727] (09/07/11) SENSORY PERCEPTUAL ALTERATION [551631] (09/07/11) POTENTIAL FOR HARM TO SELF OR OTHERS [508468] (09/07/11) Ineffective Coping [362150] (09/07/11) ALTERATION IN SLEEP [939984] (09/07/11) POTENTIAL FOR SUBSTANCE WITHDRAWAL [731387] (09/07/11) ANXIETY [191495] (09/07/11) SELF CARE DEFICIT [176062] (09/07/11) Elopement Risk [931607] (09/07/11) Defensive Coping [862932] (09/07/11) Data: Refused scheduled Dilaudid. Dilaudid was changed to 1 mg po prn. Attended groups. Action: Assess for cognitive distortions. Offer one to one. Encourage groups. Utilize teaching opportunities. Maintain frequents for safety. Response: Remained delusional. Did not voice problems with pain. Attended groups. Interacted with select peers. Wanted to leave now. This is just a waste of time. Dr. Murrell and Jerry,SW informed. The resident went to speak with the patient. Albania Gilbert RN 09/07/2011 14:13 lan of Rebecca Solorzano RN - 09/07/2011 0651 EDT Problem: ALTERATION IN SLEEP Goal: Reports Nightly Sleep, Duration And Quality Outcome: Met This Shift Active Multi-Disciplinary problems: Hospital orientation [964396] (09/04/11) ALTERED THOUGHT PROCESSES [573377] (09/04/11) ALTERATION IN SLEEP [760093] (09/05/11) Data: See observation record. Action: Continued on every 15 minute observations through the night. Response: Documented asleep at 2245. Appeared to sleep comfortably x 8 hours. Rebecca Smith RN 09/07/2011 6:26 lan of Care - Nubia Max - 09/06/2011 2204 EDT Problem: ALTERED THOUGHT PROCESSES Goal: Desires Improvement In Ability To Think & Concentrate Outcome: Ongoing Active Multi-Disciplinary problems: Hospital orientation [330547] (09/04/11) ALTERED THOUGHT PROCESSES [398442] (09/04/11) ALTERATION IN SLEEP [698144] (09/05/11) Data: Pt awake in bed at start of shift. Reports relief from ativan x 1. States that anxiety is one of her biggest problems right now. Tears up while speaking at times. Expressing many gnosticist delusions. Strongly feels that she is finding evidence online which supports that she is a missing goddess. Frustrated that staff does not acknowledge this evidence. Believes she was born with fangs (showing me a baby picture of herself on her phone), but that her grandparents had them removed. Denies SI/HI/SH. Denies pain. Declined scheduled Dilaudid; would prefer to have it available as prn only. C/o receiving [id number] meals. Action: Supportive 1:1. Monitored for safety. Obtained gluten-free meal. Medication administered. Offered heat wrap at HS. Response: Used exercise bike. Dinner on tray in dining room, appetite good. Pleasant on all interactions. Compliant with scheduled HS medication. At HS describes often having a snaggy feeling in my head which can be brought on by other people. Pt is not sure if it is intentional on their part, but states that it happens much less around people in [place] than in [facility]. Accepted heat wrap for vague generalized stress pain at HS. Resting in bed using cell phone at this time. NUBIA MAX RN 09/06/2011 21:31 lan of [facility] - Jose Sims - 09/06/2011 1531 EDT Problem: ALTERED THOUGHT PROCESSES Goal: Desires Improvement In Ability To Think & Concentrate Active Multi-Disciplinary problems: Hospital orientation [445204] (09/04/11) ALTERED THOUGHT PROCESSES [305218] (09/04/11) ALTERATION IN SLEEP [282240] (09/05/11) Data: Pt stated this morning that she felt groggy. Pt concern with medications reporting that theyare different than what she had in the community. Pt believes her meds have been changed due to her use of marijuana in the community to control her pain. Pt reported being tried of staff not believingher and that what she thinks isn't really happening. Action: Monitor for safety, maintain on frequent observation, support Pt to ease pt's anxiety r/t hospitalization. Encourage pt to engage in groups. Response: pt was out of her room for most of the afternoon, attended groups and ate in the kitchen. Pt at times appeared preoccupied, when engaging in conversation, and laughing inappropriate. Reportedfeeling anxious, due to medication changes. Concerned with Dilaudid dosage, as she believes at it should be half the amount that she is receiving. Pt report to this RN that she may refused the 1700 dose of Dilaudid. I informed her that she can discuss that option with the RN on evenings. Pt around 1450 came to RN station asking for something for anxiety, pt appeared to have been crying, face reddened, after attended a group. RN tried to obtain more information, pt stated in the group we started talking about all our problems and it made me upset. Pt provided with cell phone, notified of pts presentation, Ativan administer at 1530. Oncoming RN informed of PRN administration and f/u evaluationneeded. JOSE SIMS RN 09/06/2011 14:35 lan of [place] - Lana Norwood RN - 09/06/2011 0638 EDT Problem: ALTERATION IN SLEEP Goal: Reports Nightly Sleep, Duration And Quality Intervention: Document duration, quality of sleep and reasons Active Multi-Disciplinary problems: Hospital orientation [378136] (09/04/11) ALTERED THOUGHT PROCESSES [657921] (09/04/11) ALTERATION IN SLEEP [645680] (09/05/11) Data: Psychosis Action: Frequent observations continued, assessed for s/s pain, sleep, behavior. Offered supportive interaction and care. Response: No complaints or psychotic statements. Appeared to sleep restlessly at times but mostly restful appearing in sleep. Total sleep 6 hours. Lana Norwood RN 09/06/2011 6:26 lan of [place] - Nubia Max - 09/05/2011 2234 EDT Problem: ALTERED THOUGHT PROCESSES Goal: Desires Improvement In Ability To Think & Concentrate Outcome: Ongoing Active Multi-Disciplinary problems: Hospital orientation [841759] (09/04/11) ALTERED THOUGHT PROCESSES [590222] (09/04/11) ALTERATION IN SLEEP [354660] (09/05/11) Data: Pt sitting at window in room, drawing with markers, I'm trying to sit in the sun. Feels safeon unit. C/o 3/10 generalized pain. Willing to engage. No delusional statements or ideas expressed. [facility] how pt thought it would be different, and how appreciative pt is of being home. Action: Supportive 1:1. Monitored for safety. Medication administered. Response: Pain 0/10 on reassessment. Remained isolative. Dinner on tray in room. Spent time on computer. Slightly tearful at HS meds. Compliant with scheduled medication. Awake in bed at this time using phone. NUBIA MAX RN 09/05/2011 22:27 Urine spec obtained as ordered lan of [place] - Shakir Baxter RN - 09/05/2011 1437 EDT Problem: ALTERED THOUGHT PROCESSES Goal: Desires Improvement In Ability To Think & Concentrate Outcome: Ongoing Data: Locus of harm level 4. Up at 0800. BP 97/54. HR 93. Originally denied pain. Researched Adventism on the computer. Patient expressed some bizarre thoughts about feeling like she is [place]. Delusions based around Christianity but not directly expressed to this sports book writer. Biked in the dinning room. Difficulty making decisions. Thoughts of suicide but denies plan or intent. States she feels overwhelmed. Patient believes that eating Gluten has caused her cognitive changes. Some paranoia observed later in the shift. Pain increased to a 4/10 in her neck and back. Expressed interest in the Garden but she was not able to attend due to unclear SI. Spiritual care requested by the patient. Action: Monitor for safety. Frequent observation. One to one offered. UA encouraged. Scheduled Dilaudid for pain. Dilaudid rescheduled for 0900 and 1700 per patients request. Response: Patient remains safe. Pain resolved. UA not collected. Grandparents into visit. Spiritual care notified of patients request. Shakir Baxter RN 09/05/2011 14:24 lan of Lana Ball RN - 09/05/2011 0636 EDT Problem: ALTERATION IN SLEEP Goal: Reports Nightly Sleep, Duration And Quality Intervention: Document duration, quality of sleep and reasons Active Multi-Disciplinary problems: Hospital orientation [628312] (09/04/11) ALTERED THOUGHT PROCESSES [407571] (09/04/11) ALTERATION IN SLEEP [345369] (09/05/11) Data: Psychosis Action: Frequent observations continued, assessed for s/s pain, sleep, psychosis. Offered supportiveinteraction, removed dinner tray from her room. Answered questions of where the water is so she could get a drink. Response: Appeared to sleep comfortably, no complaints of pain, no psychosis noted. Slept 6 hours and remains asleep. Lana Norwood RN 09/05/2011 6:34 lan of Shakir Howard RN - 09/04/2011 2250 EDT Problem: Hospital orientation Goal: Cooperates With Admission Process Intervention: Complete admission process Data: Locus of harm level 4. Reported 5/10 neck pain. MD aware. Schedule Ativan and Dilaudid ordered. Patient was satisfied with scheduled medications and declined further intervention. Appears preoccupied at times. Slightly guarded. Paranoia observed. Calm and pleasant during interactions. Gluten free diet. Reported a decrease in appetite and 20 pound decrease in weight. Patient reported she returned from [place] two days ago. Patient reported increased life stressors in [place] which led up to an event that she did not go into detail about. Patient reports one side of her head feels different. Reports thoughts about suicide but has no plan or intent. Patient reported she vomited the last two mornings and feels that it might be related to anxiety. Action: Monitor for safety. Frequent observation. One to one offered. Arrival completed. Education on UA. Oriented to the unit. Response: Patient remains safe. Good appetite at dinner time. Needs UA. Used computer later in the evening. Shakir Baxter RN 09/04/2011 22:37 canned Note- Null - ACCOUNT RELATIONSHIP MANAGER, SCAN 2 - 09/04/2011 1429 EDT canned Note- Null - ACCOUNT RELATIONSHIP MANAGER, SCAN 2 - 09/04/2011 1429 EDT documented in this encounter Plan of Treatment Not on filedocumented as of this encounter Procedures Procedure Name Priority Date/Time Associated Comments Diagnosis GLUCOSE, SERUM Routine 09/07/2011 7:09 Results fo r this EDT procedure are i n the results section. URINALYSIS WITH Routine 09/05/2011 18:34 Results for this MICROSCOPIC IF EDT procedure are in POSITIVE the results section. UA REFLEX Routine 09/05/2011 18:34 Results for this EDT procedure are i n the results section. TEST, URINE Routine 09/05/2011 18:34 Re sults for this EDT procedure are i n the results section. SCREENING GLUCOSE Routine 09/04/2011 20:46 Result s for this EDT procedure are i n the results section. COMPLETE BLOOD COUNT Routine 09/04/2011 20:46 Res ults for this AND DIFFERENTIAL EDT procedure a re in the results section. BUN Routine 09/04/2011 20:46 Results for this EDT procedure are i n the results section. ALT Routine 09/04/2011 20:46 Results for this EDT procedure are i n the results section. AST Routine 09/04/2011 20:46 Results for this EDT procedure are i n the results section. TSH Routine 09/04/2011 20:46 Results for this EDT procedure are i n the results section. ALKALINE PHOSPHATASE Routine 09/04/2011 20:46 Res ults for this EDT procedure are i n the results section. GGT Routine 09/04/2011 20:46 Results for this EDT procedure are i n the results section. CREATININE Routine 09/04/2011 20:46 Results for this EDT procedure are i n the results section. ALBUMIN Routine 09/04/2011 20:46 Results for this EDT procedure are i n the results section. ELECTROLYTES Routine 09/04/2011 20:46 Results for this EDT procedure are i n the results section. documented in this encounter Results GLUCOSE, SERUM (09/07/2011 7:09 EDT) Glucose, Serum 85Comment: 70 - 100 mg/dl [facility] $* Specimen Blood specimen (specimen) Performing Organization Address City/[facility]/ZIP Code Phon e Number [facility] [address] [place] [address] SERVICES [facility] [address] [place] [id number] UA REFLEX (09/05/2011 18:34 EDT) Pathologist Sig nature UA Billing Microscopic not [facility] indicated. Specimen Performing Organization Address City/State/ZIP Code Phon e Number [facility] [address] [place] [address] SERVICES [facility] [address] [place] [address] TEST, URINE (09/05/2011 18:34 EDT) Result- Negative [facility] Test, Ur Comment: NOTE: False negative results may occur in women who are beyond 5-8 weeks gestation. Diagnosis of should be based on a correlation of test results with typical clinical signs and symptoms. Specimen Urine (substance) Performing Organization Address [facility] Phon e Number [facility] [address] [place] [address] SERVICES [facility] [address] [place] [address] URINALYSIS (09/05/2011 18:34 EDT) Pathologist Sig nature Color, UA Yellow [facility] Clarity, UA Clear [facility] Glucose, UA Neg Neg [facility] Bilirubin, UA Neg Neg [facility] Ketones, UA Neg Neg [facility] Specific Reading, 1.010 1.001 - 1.035 [facility] Urine Blood, UA Neg Neg [facility] pH, UA 7.0 4.6 - 8.0 [facility] Protein, UA Neg Neg [facility] Urobilinogen, UA 0.2 0.2 - 1.0 [facility] E.U./dl Nitrite, UA Neg Neg [facility] Leuk Esterase Neg Neg [facility] Specimen Urine (substance) Performing Organization Address [facility] Phon e Number [facility] [address] [place] [address] SERVICES [facility] [address] [place] [address] (ABNORMAL) HEMAGRAM AND DIFFERENTIAL (09/04/2011 20:46 EDT) Pathologist Sig nature WBC 8.53 4.0 - 12.4 K/cmm [facility] RBC 4.68 3.86 - 5.04 M/cmm [facility] Hemoglobin 14.2 11.6 - 15.2 gm/dl [facility] HCT 40.5 34.9 - 44.4 % [facility] MCV 86 81 - 98 fl [facility] MCH 30.3 26.7 - 33.3 pg [facility] MCHC 35.1 32.1 - 35.9 gm/dl [facility] PLT 231 141 - 320 K/cmm [facility] RDW-CV 12.9 11.7 - 14.6 % [facility] Neutrophils 64.1 45.5 - 79.7 % [facility] Lymphocytes 28.6 15.0 - 46.8 % [facility] Monocytes 6.6 1.8 - 12.0 % [facility] Eosinophils 0.4 (L) 0.6 - 6.9 % [facility] Basophils 0.3 0.2 - 1.4 % [facility] ABS Neutrophils 5.47 2.20 - 8.85 K/cmm [facility] ABS Lymphs 2.44 1.09 - 3.30 K/cmm [facility] ABS Monocytes 0.56 0.1 - 0.8 K/cmm [facility] ABS Eosinophils 0.03 0.03 - 0.61 K/cmm [facility] ABS Basophils 0.03 0.01 - 0.11 K/cmm [facility] Type of Diff: Automated [facility] Specimen Blood specimen (specimen) Performing Organization Address City/[facility]/ZIP Code Phon e Number [facility] [address] [place] [address] SERVICES [facility] [address] [place] [address] TSH (09/04/2011 20:46 EDT) Pathologist Sig nature TSH 0.48 0.35 - 5.00 uIU/ml [facility] Specimen Blood specimen (specimen) Performing Organization Address City/[facility]/ZIP Code Phon e Number [facility] [address] [place] [address] SERVICES [facility] [address] [place] [id number] ALT (09/04/2011 20:46 EDT) Pathologist Sig nature ALT 19 9 - 52 U/L [facility] Specimen Blood specimen (specimen) Performing Organization Address City/[facility]/ZIP Code Phon e Number [facility] [address] [place] [address] SERVICES [facility] [address] [place] [address] AST (09/04/2011 20:46 EDT) Pathologist Sig nature AST 21 15 - 46 U/L [facility] Specimen Blood specimen (specimen) Performing Organization Address City/[facility]/ZIP Code Phon e Number [facility] [address] [place] [address] SERVICES [facility] [address] [place] [address] ALBUMIN (09/04/2011 20:46 EDT) Pathologist Sig nature Albumin 4.7 3.4 - 4.9 g/dl [facility] Specimen Blood specimen (specimen) Performing Organization Address [facility]/ZIP Code Phon e Number [facility] [address] [place] [address] SERVICES [facility] [address] [place] [address] GGT (09/04/2011 20:46 EDT) Pathologist Sig nature GGT <13 12 - 43 U/L [facility] Specimen Blood specimen (specimen) Performing Organization Address [facility]/ZIP [facility] Phon e Number [facility] [address] [place] [address] SERVICES [facility] [address] [place] [address] ALKALINE PHOSPHATASE (09/04/2011 20:46 EDT) Pathologist Sig [facility] Total Alkaline 60 38 - 126 U/L [facility] Phosphatase Specimen Blood specimen (specimen) Performing Organization Address City/[facility]/ZIP [facility] Phon e Number [facility] [address] [place] [address] SERVICES [facility] [address] [place] [address] CREATININE (09/04/2011 20:46 EDT) Pathologist Sig [facility] Creatinine 0.64 0.52 - 1.04 mg/dl [facility] GFR, Calculated >60 >60 ml/min/1.73m2 [facility] Specimen Blood specimen (specimen) Performing Organization Address City/[facility]/ZIP Code Phon e Number [facility] [address] [place] [address] SERVICES [facility] [address] [place] [address] BUN (09/04/2011 20:46 EDT) Pathologist Sig nature BUN 14 10 - 26 mg/dl [facility] Specimen Blood specimen (specimen) Performing Organization Address [facility]/ZIP [facility] Phon e Number [facility] [address] [place] [address] SERVICES [facility] [address] [place] [address] (ABNORMAL) ELECTROLYTES (09/04/2011 20:46 EDT) Pathologist Sig nature Sodium 139 136 - 145 mEq/L [facility] Potassium 4.0 3.5 - 5.0 mEq/L [facility] Chloride 102 96 - 110 mEq/L [facility] CO2 22 (L) 24 - 32 mEq/L [facility] Specimen Blood specimen (specimen) Performing Organization Address City/State/ZIP Code Phon e Number [facility] [address] [place] [address] SERVICES [facility] [address] [place] [address] (ABNORMAL) SCREENING GLUCOSE (09/04/2011 20:46 EDT) Pathologist Sig nature Glucose, Screening 146 (H) 70 - 100 mg/dl [facility] Specimen Blood specimen (specimen) Performing Organization Address City/[facility] Code Phon e Number [facility] [address] [place] [address] SERVICES [facility] [address] [place] [address] documented in this encounter Visit Diagnoses Diagnosis Psychosis ([facility] ([facility]) Unspecified psychosis documented in this encounter Administered Medications Inactive Administered Medications - up to 3 most recent administrations Medication Order MAR Action Action Date Dose Rate Site HYDROmorphone (DILAUDID) tablet 2 mg Given 09/05/2011 9:04 EDT 2 mg 2 mg, oral, 2 TIMES DAILY WITH BREAKFAST & LUNCH, First dose on 09/05/11 at 0800, Until Discontinued, Routine HYDROmorphone (DILAUDID) tablet 2 mg Given 09/06/2011 8:40 EDT 2 mg 2 mg, oral, 2 TIMES DAILY BEFORE BREAKFAST & DINNER, First dose (after last modification) on 09/05/11 at 1700, Until Discontinued, Routine Given 09/05/2011 17:00 EDT 2 mg lorazepam (ATIVAN) tablet 0.5 mg Given 09/06/2011 15:32 EDT 0.5 mg 0.5 mg, oral, NOW X1, 1 dose, On 09/06/11 at 1530, Routine lorazepam (ATIVAN) tablet 1 mg Given 09/06/2011 21:23 EDT 1 mg 1 mg, oral, AT BEDTIME, First dose on Wed09/04/11 at 2100, Until Discontinued, Routine Given 09/05/2011 21:58 EDT 1 mg Given 09/04/2011 21:37 EDT 1 mg documented in this encounter Discontinued Medications Medication Sig Discontinue Reason Start Date End Date acetaminophen (TYLENOL) 500 Take 1,000 mg by 09/07/2011 mg tablet mouth every 6 hours. CA CARBONATE/VITAMIN Take by mouth. 09/06 D2/SOYB (ONE-A-DAY BONE STRENGTH ORAL) B-Complex with Vitamin C Take 1 Tab by Tab mouth daily. duloxetine (CYMBALTA) 60 mg Take 60 mg by 09/07/2011 capsule mouth. ondansetron (ZOFRAN-ODT) 4 Take 4 mg by 10/05/2010 0 09/07/2011 mg disintegrating tablet mouth 4 times daily as needed. omeprazole (PRILOSEC) 20 mg Take 20 mg by 09/07/2011 capsule mouth daily. documented as of this encounter Active and Recently Administered Medications Times are shown in EDT. Scheduled Medication Order 09/05/2011 09/06/2011 09/07/2011 HYDROmorphone (DILAUDID) tablet 2 mg (CANCELED) 0904 ( Given - Provider: Shakir Baxter RN - Comment: pt requested it after 0900)1310 (Not Given - Provider: Shakir Baxter RN - Reason: Other - Comment: medication rescheduled) 2 mg, Oral, 2 TIMES DAILY WITH BREAKFAST & LUNCH, First dose on 09/05/11 at 0800, Until Discontinued HYDROmorphone (DILAUDID) tablet 2 mg (CANCELED) 1700 ( Given - Provider: Nubia Max) 0840 (Given - Provider: Jose Sims)181 2 (Not Given - Provider: Nubia Max - Reason: Patient/family refused) 0900 (Not Given - Provider: Albania Gilbert - Reason: Patient/family refused) 2 mg, Oral, 2 TIMES DAILY BEFORE BREAKFA ST & DINNER, First dose on 09/05/11 at 1700, Until Discontinued lorazepam (ATIVAN) tablet 0.5 mg (COMPLETED) 153 (Given - Provider: Jose Sims) 0.5 mg, Oral, NOW X1, 1 dose, 09/06/11 at 1530 lorazepam (ATIVAN) tablet 1 mg (CANCELED) 2157 (Given - Provider: Nubia Max) 2123 (Given - Provider: Nubia Max) 1 mg, Oral, AT BEDTIME, First dose on Wed09/04/11 at 2100, Until Discontinued documented in this encounter Orders Medications Ordered That Might Not Have Count Last Ord ered Date First Ordered Date Been Administered HYDROmorphone (DILAUDID) tablet 1 mg 1 09/07/2011 nicotine (NICOTROL) 10 mg inhaler 1 1 09/05/2011 Inhaler nicotine inhaler (delivery device) 1 09/05/2011 acetaminophen (TYLENOL) tablet 500 mg 1 09/04/2011 Admission Count Last Ordered Date First Ordered Date STATUS: INPATIENT ACUTE ADMISSION 1 09/04/2011 documented in this encounter Care Teams Platform Material Handling Supervisor Relationship Specialty Start Date End Date Mandy Beck DO PCP - General 11/07/10 03/20/[address] [place] [address] documented as of this encounter
--- OUTSIDE RECORDS SUMMARY | 2021-08-16 23:34 | XMS_ITS | Encounter Summary ---
:1990 Author Organization [facility] Address [address] [place] [address] Care Team Providers Name Role Phone Mandy Becke Primary Care Provider Encounter Details Date Type Department Care Team Description 02/12/2011 Phlebotomy Only [facility] Plasterer Foreman, Alberto chappellis; - [facility] Outpatient Abdominal pain, unspecified site; [address] [facility] Screen-endoc/nut/met NEC; [place], [place] Nausea with v omiting [phone] Social History Tobacco Use Types Packs/Day Years [...] Name Priority Date/Time Associated Diagnosis Comme nts HEMOGLOBIN A1C Routine 02/12/2011 17:20 EST Gastropares is Results for this Abdominal pain, procedure ar e in unspecified site the results Screen-endoc/nut/met section . NEC Nausea with vomiting documented in this encounter Results HEMOGLOBIN A1C (02/12/2011 17:20 EST) Hemoglobin A1C 5.3 % [facility] Comment: Reference Range: <5.7% Normal 5.7-6.4% Increased risk for diabetes =>6.5% Diagnostic for diabetes (if confirmed) The A1c goal for non adults in general is <7%. The A1c goal for selected patients may be significantly lower than 7% if this can be achieved without significant hypoglycemia or other adverse effects of treatment. Est Avg Glucose 105 mg/dl [facility] Comment: eAG represents the A1c result expressed as average glucose in mg/dl. Specimen Blood specimen (specimen) Performing Organization Address City/State/ZIP Code Phon e Number [facility] [address] [place] [address] SERVICES [facility] [address] [place] [address] documented in this encounter Visit Diagnoses Diagnosis Gastroparesis Abdominal pain, unspecified site Screening for other and unspecified endo crine, nutritional, metabolic, and immunity disorders Nausea with vomiting documented in this encounter Care Teams Director Alliance Marketing Relationship Specialty Start Date End Date Mandy Beck DO PCP - General 11/07/10 03/20/[address] [place] [place] [address] documented as of this encounter
--- OUTSIDE RECORDS SUMMARY | 2021-08-16 23:34 | XMS_ITS | Encounter Summary ---
:1990 Author Organization [facility] Address [address] [place] [address] Care Team Providers Name Role Phone Monica Argueta MD Primary Care Provider [phone] Encounter Details Date Type Department Care Team Description 09/11/2010 Hospital Encounter [facility] - Unknown, Julio Earl MD [address] [place] [address] Road [phone] [place] [address] (Work) [phone] Social History Tobacco Use Types Packs/Day Years Used Date Current Some Day Smoker Quit : 11/06/2009 Smokeless Tobacco: Never Used Comments: occasional Alcohol Use Standard Drinks/Week Comments No 0 (1 standard drink = 0.6 oz pure alcoho l) occ Sex Assigned at Date Recorded Not on file documented as of this encounter Medications at Time of Discharge Medication Sig Dispensed Refills Start Date End Date lorazepam (ATIVAN) 0.5 mg Take 1 mg by mouth 0 04/08/2012 Tab as needed. 1 -2 tabs. documented as of this encounter Discharge Disposition Disposition Code Departure Means Destination Home or Self Senior Care documented in this encounter Plan of Treatment Not on filedocumented as of this encounter Visit Diagnoses Not on filedocumented in this encounter Care Teams All Source Intelligence Relationship Specialty Start Date End Date Monica Argueta MD PCP - General 04/24/10 11/06/10 documented as of this encounter
--- OUTSIDE RECORDS SUMMARY | 2021-08-16 23:34 | XMS_ITS | Encounter Summary ---
:[address] [facility] Address [address] [place] [address] Care Team Providers Name Role Phone None, Provider Primary Care Provider Unavailable Noe Kurtz MD Primary Care Provider Orlando Correia MD Primary Care Provider [phone] Stephon Marquez MD Primary Care Provider Filipe Bose MD Primary Care Provider Sana Muhammad MD Primary Care Provider Encounter Details Date Type Department Care Team Description 03/31/2012 Orders Only [facility] Fabi Shin Obstetrics [facility] Midwifery - Michael salcedo MD [address] [address] [address], [place], [place] [address] (Wo rk) Social History Tobacco Use Types [...] Problems Progress 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, dependence Vania syndrome Healthy General On track [...] more about your health please v isit: [email or web address] documented as of this encounter Visit Diagnoses Not on filedocumented in this encounter Care Teams Fruit Room Hand Relationship Specialty Start Date End Date None, Provider PCP - General 03/21/12 03/31/12 Noe Kurtz MD PCP - General 04/01/12 05/02/13 Orlando Correia MD PCP - General 05/03/13 08/05/13 Stephon Marquez MD PCP - General 08/06/13 11/06/15 Filipe Bose MD PCP - General 11/07/15 12/01/16 Sana Muhammad MD PCP - General 12/02/16 08/05/20 documented as of this encounter
--- OUTSIDE RECORDS SUMMARY | 2021-08-16 23:34 | XMS_ITS | Encounter Summary ---
:1990 Author Organization [facility] Address [address] [place] [address] Care Team Providers Name Role Phone AbdoulMacarioMarilyn Brii Primary Care Provider Encounter Details Date Type Department Care Team Description 02/05/2011 Orders Only Non [facility] Ancillary Damon, Brayan Gas troparesis; Services MD Liz Abdominal pain, unspecified site; [address] Screen-endoc/n ut/met NEC; [facility] Nausea with vomiting [address] [place] [address] (Wo rk) Social History Tobacco [...] on filedocumented as of this encounter Results HEMOGLOBIN A1C (02/12/2011 17:20 [...] of treatment. Est Avg Glucose 105 mg/dl [facility] Comment: eAG represents the A1c result expressed as average glucose in mg/dl. Specimen Blood specimen (specimen) Performing Organization Address City/State/ZIP Code Phon e Number [facility] [address] [place] [address] SERVICES [facility] [address] [place] [address] documented in this encounter Visit Diagnoses Diagnosis Gastroparesis Abdominal pain, unspecified site Screening for other and unspecified endo crine, nutritional, metabolic, and immunity disorders Nausea with vomiting documented in this encounter Care Teams Play Leader Relationship Specialty Start Date End Date Mandy Beck DO PCP - General 11/07/10 03/20/[address] [place] [address] [place] [address] documented as of this encounter
--- OUTSIDE RECORDS SUMMARY | 2021-08-16 23:34 | XMS_ITS | Encounter Summary ---
:1990 Author Organization [facility] Address [address] [place] [address] Care Team Providers Name Role Phone AbdoulKimMarilyn Brii Primary Care Provider Encounter Details Date Type Department Care Team Description 11/07/2010 Hospital Encounter [facility] MD Liz [address] [facility] [address] [place], [place] [id number] [place] [address] [phone] (Wo rk) Social History Tobacco Use [...] Sign Reading Time Taken Comments Blood Pressure 103/62 11/07/2010 1450 EDT Pulse 70 11/07/2010 1450 EDT Temperature 36.1 ??C (97 ??F) 11/07/2010 1244 EDT Respiratory Rate 16 11/07/2010 1450 EDT Oxygen Saturation 100% 11/07/2010 1450 EDT Inhaled Oxygen Concentration - - Weight 81.6 kg (180 lb) 11/07/2010 1229 EDT Height 165.1 cm (5' 5) 11/07/2010 1229 EDT Body Mass Index 29.95 11/07/2010 1229 EDT documented in this encounter Medications at Time of Discharge Medication Sig Dispensed Refills Start Date End Date acetaminophen (TYLENOL) 500 Take 1,000 mg by 0 09/07/2011 mg tablet mouth every 6 hours. B-Complex with Vitamin C Take 1 Tab by 0 09/07/2011 Tab mouth daily. CA CARBONATE/VITAMIN Take by mouth. 0 09/07/2011 D2/SOYB (ONE-A-DAY BONE STRENGTH ORAL) duloxetine (CYMBALTA) 60 mg Take 60 mg by 0 09/07/2011 capsule mouth. HYDROmorphone (DILAUDID) 2 Take 1-2 mg by 0 10/0504/08/2012 mg tablet mouth 3 times daily as needed. lorazepam (ATIVAN) 0.5 mg Take 1 mg by mouth 0 04/08/2012 Tab as needed. 1 -2 tabs. omeprazole (PRILOSEC) 20 mg Take 20 mg by 0 09/07/2011 capsule mouth daily. ondansetron (ZOFRAN-ODT) 4 Take 4 mg by mouth 0 0 10/05/2010 09/07/2011 mg disintegrating tablet 4 times daily as needed. documented as of this encounter Discharge Disposition Disposition Code Departure Means Destination Home or Self Care documented in this encounter H&P Notes Brayan Jose MD - 11/07/2010 1332 EDT Sedation for Procedure History & Physical Date: 11/07/2010 Time: 13:32 Location: [address] Planned Procedure: Colonoscopy;Gastroscopy Chief Complaint/Indications for Procedure: abd. pain and vomitting everyday History Previous Complication with Sedation and/or Anesthesia? No Allergies: Allergies Allergen Reactions ??? Paxil (Paroxetine Hcl) Nausea And Vomiting Current Medications: Prescriptions prior to admission Medication Sig Dispense [...] by mouth as needed. 1 -2 tabs. Past Medical History: Past Medical History Diagnosis Date ??? Tendinitis ??? Torticollis ??? Laceration 12/04/06 left 5th digit tendon,nerve laceration ??? Myofascial pain right shoulder and neck myofascial pain ??? Psychiatric problem anxiety ??? Mental disorder Social History: Past Surgical History Procedure Date ??? Finger surgery left History Substance Use Topics ??? Smoking status: Current Some Day Smoker -- 0.2 packs/day Last Attempt to Quit: 11/06/2009 ??? Smokeless tobacco: Never Used Comment: occasional ??? Alcohol Use: No occ Family History: Family History Problem Relation Age of Onset ??? Schizophrenia Mother ??? Diabetes ??? Bipolar Disorder uncle Review of Systems as pertinent: Physical Exam Vital Signs: BP 106/77 Pulse 63 Temp(Src) 36.1 ??C (97 ??F) (Tympanic) Resp 16 Ht 165.1 cm (65) Wt 81.647 kg (180 lb) BMI 29.95 kg/m2 SpO2 97% Heart Examination: Cardiac Regularity: Regular Respiratory Examination: Respiratory Pattern: Regular Breath Sounds Right: Clear Breath Sounds Left: Clear Additional physical exam related to the proposed procedure, patient activity, disease state and treatment as pertinent: Assessment Previous complications with sedation or anesthesia?: No Airway Concerns: Asthma Anesthesia Classification: ASA 2 Fasting Time: Time of last liquid intake: 1100 Date of Last Liquid Intake: 11/07/10 Time of last solid intake: 1800 Date of last solid intake: 11/05/10 Patient Appropriate Candidate for Planned Sedation?: Yes documented in this encounter Procedure Notes Service Support Representative, Scan - 11/07/2010 0000 EDTAssociated Order(s): PROCEDURE REPORTS - SCANNED; PROCEDURE REPORTS - SCANNED Service Support Representative, Scan - 11/07/2010 0000 EDTAssociated Order(s): PROCEDURE REPORTS - SCANNED; PROCEDURE REPORTS - SCANNED documented in this encounter OR Notes Anesthesia Procedure Notes - Service Support Representative, Scan - 11/07/2010 0000 EDT Anesthesia Preprocedure Evaluation - Service Support Representative, Scan - 11/07/2010 0000 EDT documented in this encounter Miscellaneous Notes Anesthesia Post-Eval - Bernarda Clements MD - 11/07/2010 1525 EDT Post Anesthesia Evaluation Note Date of Service: 11/07/2010 Mary Grace Harris, a 19 y.o. year old female has received General Anesthesia today. She has been evaluated, assessed and discharged from anesthesia care with stable cardiorespiratory function and alert mental status. The last set of recorded vital signs and pain rating were reviewed: BP: 103/62 mmHg (11/07/10 1450), Resp: 16 (11/07/10 1450), SpO2: 100 % (11/07/10 1450), Pulse: 70 (11/07/10 1450),Numeric Pain Level (Scale 1-10): 0 Mary Grace Harris participated in this evaluation unless otherwise noted. Her pain, nausea and vomitinghave been managed and her body temperature and fluid balance have been restored. Additional monitoring and assessment needs have been addressed. If present, any postoperative events are documented below. BERNARDA CLEMENTS MD 11/07/2010 15:25 Anesthesia Post-Eval Michael Barton - 11/07/2010 1447 EDT Post Anesthesia Evaluation Note Date of Service: 11/07/2010 Mary Grace Harris, a 19 y.o. year old female has received MAC today. She has been evaluated, assessed and discharged from anesthesia care with stable cardiorespiratory function and alert mental status. The last set of recorded vital signs and pain rating were reviewed: BP: 113/53 mmHg (11/07/10 1445), Resp: 16 (11/07/10 1445), SpO2: 100 % (11/07/10 1445), Pulse: 72 (11/07/10 1445),Numeric Pain Level (Scale 1-10): 0 Mary Grace Harris participated in this evaluation unless otherwise noted. Her pain, nausea and vomitinghave been managed and her body temperature and fluid balance have been restored. Additional monitoring and assessment needs have been addressed. If present, any postoperative events are documented below. MICHAEL JENKINS MD 11/07/2010 14:47 canned Note-Null - Service Support Representative, Scan - 11/07/2010 0000 EDT Scanned Note-Null - Service Support Representative, Scan - 11/07/2010 0000 EDT documented in this encounter Plan of Treatment Not on filedocumented as of this encounter Procedures Procedure Name Priority Date/Time Associated Diagnosis Comme nts PROCEDURE REPORTS - 11/08/2010 8:00 EDT R esults for this SCANNED procedure are i n the results section. documented in this encounter Results PROCEDURE REPORTS - SCANNED (11/08/2010 8:00 EDT) Specimen Narrative This result has an attachment that is no t available. Procedure Note Service Support Representative, Scan - 11/07/2010 0:00 ED T Transcriptions Service Support Representative, Scan - 11/07/2010 0:00 ED T documented in this encounter Visit Diagnoses Not on filedocumented in this encounter Administered Medications Inactive Administered Medications - up to 3 most recent administrations Medication Order MAR Action Action Date Dose Rate Site sodium chloride 0.9 % (NS) New Bag 11/07/2010 12:43 EDT 30 mL/hr 30 mL/hr infusion at 30 mL/hr, 30 mL/hr, intravenous, CONTINUOUS, Starting on Wed11/07/10 at 1245, Until 11/09/10 at 0146, Routine, Preprocedure documented in this encounter Active and Recently Administered Medications Times are shown in EDT. Continuous Medication Order 11/05/2010 11/06/2010 11/07/2010 sodium chloride 0.9 % (NS) infusion (CANCELED) 1243 (New Bag - Provider: Alisha Caballero RN) at 30 mL/hr, Intravenous, CONTINUOUS, St arting Wed11/07/10 at 1245, Until 11/09/10 at 0146 documented in this encounter Orders Medications Ordered That Might Not Have Count Last Ord ered Date First Ordered Date Been Administered fentanyl citrate (PF) 50 mcg/mL injection 1 2010 100-250 mcg midazolam (VERSED) injection 1-10 mg 1 11/07/2010 ondansetron (PF) (ZOFRAN) injection 2-4 mg 1 11/07 Discharge Count Last Ordered Date First Ordered Date DISCHARGE PATIENT 1 11/07/2010 documented in this encounter Care Teams Light Equipment Operator Relationship Specialty Start Date End Date Mandy Beck DO PCP - General 11/07/10 03/20/[address] [place] [address] documented as of this encounter
--- OUTSIDE RECORDS SUMMARY | 2021-08-16 23:34 | XMS_ITS | Encounter Summary ---
:1990 Author Organization [facility] Address [address] [place] [address] Care Team Providers Name Role Phone Mandy Beck DO Primary Care Provider Encounter Details Date Type Department Care Team Description 04/24/2011 Hospital Encounter [facility] - Mandy Beck [facility] DO Merle [address] [place] [address] [place] [address] [phone] (Wo rk) Social History Tobacco Use Types [...] mg Take 1 mg by mouth 0 03 / 04/08/2012 Tab as needed. 1 -2 tabs. omeprazole (PRILOSEC) 20 mg Take 20 mg by 0 09/07/2011 capsule mouth daily. ondansetron (ZOFRAN-ODT) 4 Take 4 mg by mouth 0 0 10/05/2010 09/07/2011 mg disintegrating tablet 4 times daily as needed. documented as of this encounter Discharge Disposition Disposition Code Departure Means Destination Home or Self [facility] documented in this encounter Plan of Treatment Not on filedocumented as of this encounter Visit Diagnoses Not on filedocumented in this encounter Care Teams Clinical Research Nurse Relationship Specialty Start Date End Date Mandy Beck DO PCP - General 11/07/10 03/20/[address] [place] [address] documented as of this encounter
--- OUTSIDE RECORDS SUMMARY | 2021-08-16 23:34 | XMS_ITS | Encounter Summary ---
:1990 Author Organization [facility] Address [address] [place] [address] Care Team Providers Name Role Phone Mandy Beck DO Primary Care Provider Encounter Details Date Type Department Care Team Description 02/12/2011 Hospital Encounter [facility] - Unknown, Provider, [facility], Brayan Hill MD [address] [facility] [address] [place] [address] [address] [place], [place] [id number] Social History Tobacco Use Types Packs/Day Years [...] Disposition Code Departure Means Destination Auto Discharge Home documented in this encounter Plan of Treatment Not on filedocumented as of this encounter Visit Diagnoses Not on filedocumented in this encounter Care Teams Emergency Management System Director Relationship Specialty Start Date End Date Mandy Beck DO PCP - General 11/07/10 03/20/[address] [place] [address] documented as of this encounter
--- OUTSIDE RECORDS SUMMARY | 2021-08-16 23:34 | XMS_ITS | Encounter Summary ---
:1990 Author Organization [facility] Address [address] [place] [address] Care Team Providers Name Role Phone Mandy Beck DO Primary Care Provider Encounter Details Date Type Department Care Team Description 01/10/2011 Hospital Encounter [facility] Urgent Unknown, Provider, Care - Faye whalen MD [address] [facility] [phone] [place] [address] (Work) [phone] Social History Tobacco Use Types Packs/Day Years [...] Care documented in this encounter ED Notes Starr Redd - 01/10/2011 1319 EDT Triaged at desk,explained to patient We do not have CT scan capabilities today.Patient opted to go to ED. documented in this encounter Plan of Treatment Not on filedocumented as of this encounter Visit Diagnoses Not on filedocumented in this encounter Care Teams Asic Engineer Relationship Specialty Start Date End Date Mandy Beck DO PCP - General 11/07/10 03/20/[address] [place] [address] documented as of this encounter
--- OUTSIDE RECORDS SUMMARY | 2021-08-16 23:34 | XMS_ITS | Encounter Summary ---
:1990 Author Organization [facility] Address [address] [place] [address] Care Team Providers Name Role Phone None, Provider Primary Care Provider Unavailable Reason for Referral Consult (48 Hrs (Urgent)) - Closed Specialty Diagnoses / Procedures Referred By Contact Refer red To Contact Obstetrics & Diagnoses Supervision of normal first Paranoid schizophrenia ([facility]) ([facility]) Noe Kurtz, Gynecology [address] [place] [phone] Referral ID Status Reason Start Date Expiration Date Visits V isits Requested Authorized [id number] Closed Specialty 03/22/2012 1 1 Services Required Question Answer Reason for Request: high risk recent t [facility]ansfer [facility] care [facility] onsult (48 Hrs (Urgent)) - Closed Specialty Diagnoses / Procedures Referred By Contact Refer red To Contact Psychiatry Diagnoses Paranoid schizophrenia ([facility]) ([facility]) Supervision of normal first Noe Kurtz MD [address] [place] [address] Referral ID Status Reason Start Date Expiration Date Visits V isits Requested Authorized [id number] Closed Specialty 03/22/2012 1 1 Services Required Question Answer Reason for Request: med review/med management in patient, recent [facility] Reason for Visit Reason Comments New Patient Visit and due date , Unsure of Last LMP Establish Care Back Pain Neck Pain Encounter Details Date Type Department Care Team Description 03/22/2012 Office Visit [facility] Unknown, Prov MD alexey Paranoid schizophrenia (CMS-HCC) (Primar y Dx); Family Medicine - Noe Kurtz MD [address] [place] [address] Supervision of normal first ; [place] Need for Tdap vaccination [address] [place] [id number] Social History Tobacco Use Types Packs/Day Years Used Date Current Some Day Smoker 0.25 9 Smokeless Tobacco: Never Used Comments: occasional Alcohol Use Standard Drinks/Week Comments No 0 (1 standard drink = 0.6 oz pure alcoho l) occ Sex Assigned at Date Recorded Not on file documented as of this encounter Last Filed Vital Signs Vital Sign Reading Time Taken Comments Blood Pressure 116/60 03/22/2012 1144 EST Pulse 100 03/22/2012 1144 EST Temperature 36.9 ??C (98.5 ??F) 03/22/2012 1144 EST Respiratory Rate - - Oxygen Saturation - - Inhaled Oxygen Concentration - - Weight 106.1 kg (234 lb) 03/22/2012 1144 EST Height 165.1 cm (5' 5) 03/22/2012 1144 EST Body Mass Index 38.94 03/22/2012 1144 EST documented in this encounter Functional Status Cognitive Status Response Date of Assessment Because of a physical, mental, or emotional condition, do Ye s 09/04/2011 you have serious difficulty concentrating, remembering, or making decisions? (5 years old or older) documented as of this encounter Ordered Prescriptions Prescription Sig Dispensed Refills Start Date End Date olanzapine (ZYPREXA) 20 mg Take 1 Tab by 30 Tab 1 201204/22/2012 tabletIndications: Paranoid mouth daily. schizophrenia (HCC-CMS) (HCC) olanzapine (ZYPREXA) 10 mg Take 1 Tab by 30 Tab 1 201205/18/2012 tabletIndications: Paranoid mouth daily. schizophrenia (HCC-CMS) (HCC) Vit-Iron Take 1 Cap by 30 Cap 5 03/22/2012 06/0 04/2013 Fumarate-FA ( 19) mouth daily. 29-1 mg Chew documented in this encounter Discharge Disposition Disposition Code Departure Means Destination Auto Discharge documented in this encounter Progress Notes Sana Lo MD - 03/23/2012 1029 EST Attestation statement for office patient not seen by attending: I discussed the patient with the resident/fellow at the time of the visit and agree with the findings and the plan of care documented in the resident's/fellow's note. vist at 22 weeks, new rto [facility], transferring from OB office through [facility]. Has h/o paranoid schizophrenia, started on Zyprexa in early Agree that need OB Med recs MARIUM, MFM consult, urgent psychopharm consult Sana Lo MD Family Medicine Attending 03/23/2012 10:29 Alysha Guzman LPN - 03/22/2012 1239 EST Flu vaccine adm'd. Noe Matias MD - 03/22/2012 1151 EST Subjective: Patient ID: Mary Grace Harris is an 21 y.o. female. Chief Complaint Patient presents with ??? New Patient Visit and due date 07/24/12, Unsure of Last LMP ??? Establish Care ??? Back Pain ??? Neck Pain HPI Comments: Patient here for a new patient visit to establish care. Patient accompanied by grandmother. Patient presents as a transfer of care from [facility]. She is and will need ob care here or with ob. She also has a history of paranoid schizophrenia with recent hospitalization in 08/2011 for psychosis. Patient reports that she has been stable from a psychiatric standpoint on olanzapine since ough she has gained 80lbs and would like to go off this medication. Regarding her . - Found out she was in November. EDC 07/24/2012. - had a few ultrasounds to confirm, not sure of LMP. - 22wks 2 days at todays visit by estimated EDC from patient's history. - [facility] has had sharmin 2-3 visits there. No records here currently but release signed. OBGYN department at [facility]. - Feels movement, no complications with . - No nausea, no vaginal bleeding, no vag discharge, increased need for urination. - was seeing team at [facility], but patient moved. Reports no complications with , normal lab work thus far. - Patient's primary concern is that she has gained 80lbs since she has been , thinks it may be from olanzapine. - hungry all the time for anything that is around, pees a lot. - Has been on olanzapine since November. People at [facility] put her on olanzapine. Patient reports it has not been helping. Was on haldol before but did not tolerate. Chronic Pain Patient reports serious problemns with pain in bilteral lower back that shoots down both legs. Intermittent/daily. Comes and goes. Was on dilaudid and ativan in the past but has been off for many months and does not want to re-start while . History of asthma Reports history of inhaler use says she used advair in the past. No recent attacks. Back Pain Pertinent negatives include no chest pain, dysuria, fever, headaches or weight loss. Neck Pain Pertinent negatives include no chest pain, fever, headaches or weight loss. Patient Active Problem List Diagnoses ??? Spells ??? Depression ??? Celiac disease ??? Anxiety ??? Thyroid nodule ??? Strain of neck muscle ??? Psychosis ??? Paranoid schizophrenia Past Medical History Diagnosis Date ??? Tendinitis ??? Torticollis ??? Laceration 12/04/06 left 5th digit tendon,nerve laceration ??? Myofascial pain right shoulder and neck myofascial pain ??? Psychiatric problem anxiety ??? Mental disorder ??? Fibromyalgia Current Outpatient Prescriptions on File Prior to Visit Medication Sig Dispense Refill ??? HYDROmorphone (DILAUDID) 2 mg tablet Take 1-2 mg by mouth 3 times daily as needed. ??? lorazepam (ATIVAN) 0.5 mg Tab Take 1 mg by mouth as needed. 1 -2 tabs. Allergies Allergen Reactions ??? Haldol (Haloperidol Lactate) paralysis ??? Paxil (Paroxetine Hcl) Nausea And Vomiting Social History Substance Use Topics ??? Smoking status: Current Some Day Smoker -- 0.2 packs/day for 9 years ??? Smokeless tobacco: Never Used Comment: occasional ??? Alcohol Use: No occ Review of Systems Constitutional: Positive for malaise/fatigue. Negative for fever, chills and weight loss. HENT: Positive for neck pain. Respiratory: Negative for shortness of breath and wheezing. Cardiovascular: Negative for chest pain. Gastrointestinal: Negative for nausea and vomiting. Genitourinary: Negative for dysuria. Musculoskeletal: Positive for back pain. Neurological: Negative for dizziness, focal weakness and headaches. Psychiatric/Behavioral: Negative for depression and substance abuse. The patient is not nervous/anxious. - See HPI Objective: BP 116/60 Pulse 100 Temp(Src) 36.9 ??C (98.5 ??F) (Tympanic) Ht 165.1 cm (65) Wt 106.142 kg(234 lb) BMI 38.94 kg/m2 LMP 08/27/2011 Physical Exam Constitutional: She is oriented to person, place, and time. She appears well- developed and well-nourished. No distress. HENT: Head: Normocephalic and atraumatic. Right Ear: External ear normal. Left Ear: External ear normal. Eyes: Conjunctivae and EOM are normal. Pupils are equal, round, and reactive to light. Right eye exhibits no discharge. Left eye exhibits no discharge. No scleral icterus. Neck: Normal range of motion. Neck supple. No tracheal deviation present. No thyromegaly present. Cardiovascular: Normal rate, regular rhythm, normal heart sounds and intact distal pulses. Exam reveals no gallop and no friction rub. No murmur heard. Pulmonary/Chest: Effort normal and breath sounds normal. No respiratory distress. She has no wheezes. She has no rales. She exhibits no tenderness. Abdominal: Soft. Bowel sounds are normal. She exhibits no distension. There is no tenderness. There is no rebound. + gravid Musculoskeletal: Normal range of motion. She exhibits no edema and no tenderness. Neurological: She is alert and oriented to person, place, and time. Skin: Skin is warm. She is not diaphoretic. Psychiatric: She has a normal mood and affect. Her behavior is normal. Judgment and thought content normal. FHTs + at 130 bpm Fundal Height 22cm Assessment/Plan: Mary Grace was seen today for new patient visit, establish care, back pain and neck pain. Diagnoses and associated orders for this visit: Supervision of normal first - Patient reports that last visit with provider was sharmin 1 month ago at [facility]. She does not have records here but completed a release. She will [facility]. She is a complicated patient given her history of paranoid schizophrenia and recent initiation of therapy with olanzapine. Furthermore, patient has had considerable weight gain since initiation of this treatment. Patient should be seen and evaluated urgently by psychopharmacology clinic as the treatment of her psychiatric condition will impact her . Also patient referred today to [facility] high risk for consultation and possible transfer of care. Will await there recommendations. In the mean time have scheduled patient for 1hr Glucola test in 2 weeks and flu shot given today. - Ambulatory Consult [facility] - Ambulatory Consult Maternal Medicine - Influenza vaccine greater than or equal to 3yo split preservative free IM Paranoid schizophrenia - Ambulatory Consult [facility] - Ambulatory Consult Maternal Medicine - olanzapine (ZYPREXA) 10 mg tablet; Take 1 Tab by mouth daily. - olanzapine (ZYPREXA) 20 mg tablet; Take 1 Tab by mouth daily. Need for tdap vaccination - Tdap vaccine greater than or equal to 7yo IM; Future Other Orders - Discontinue: VIT/IRON FUMARATE/FA ( 19 ORAL); Take 1 Tab by mouth daily. - folic acid (FOLVITE) 1 mg tablet; Take 1 mg by mouth daily. - Discontinue: olanzapine (ZYPREXA) 10 mg tablet; Take 10 mg by mouth daily. - Discontinue: olanzapine (ZYPREXA) 20 mg tablet; Take 20 mg by mouth daily. - Vit-Iron Fumarate-FA ( 19) 29-1 mg Chew; Take 1 Cap by mouth daily. - Cancel: Tdap vaccine greater than or equal to 7yo IM Chronic Pain - Advised tylenol only at this time as well as heat, gentle stretching. Patient discussed with Attending Noe Junior MD, MPH PGY - 2 Family Medicine, [address] Kaye LPN - 03/22/2012 1147 EST . documented in this encounter Plan of Treatment Scheduled Referrals Name Type Priority Associated Diagnoses Order S chedule AMB CONSULT Outpatient Routine Paranoid Ordered: PSYCHIATRIC Referral schizophrenia 03/22/2012 PHARMACOLOGY CLINIC ([facility]) Supervision of normal first AMB CONSULT MATERNAL Outpatient Routine Supervision of tyrone virgen Ordered: MEDICINE Referral first 03/22/2012 Paranoid schizophrenia ([facility]) documented as of this encounter Visit Diagnoses Diagnosis Paranoid schizophrenia ([facility]) ([facility]) - Primary Paranoid schizophrenia, unspecified cond ition Supervision of normal first Need for Tdap vaccination Need for prophylactic vaccination with c ombined wndzsgyvsc-oyylcvx-kpcgibkvr (DTP) vaccine documented in this encounter Discontinued Medications Medication Sig Discontinue Reason Start Date End Date VIT/IRON Take 1 Tab by mouth Reorder FUMARATE/FA ( 19 daily. ORAL) olanzapine (ZYPREXA) 10 Take 10 mg by mouth Reorder 03/22/2012 mg tablet daily. olanzapine (ZYPREXA) 20 Take 20 mg by mouth Reorder 03/22/2012 mg tablet daily. documented as of this encounter Historical Medications This list may reflect changes made after this encounter. Medication Sig Dispensed Refills Start Date End Date olanzapine (ZYPREXA) 20 Take 20 mg by mouth 0 03/22/2012 mg tablet daily. olanzapine (ZYPREXA) 10 Take 10 mg by mouth 0 03/22/2012 mg tablet daily. folic acid (FOLVITE) 1 mg Take 1 mg by mouth 0 04/05/2012 tablet daily. VIT/IRON Take 1 Tab by mouth 0 03/22/2012 FUMARATE/FA ( 19 daily. ORAL) added in this encounter Orders Immunization/Injection Count Last Ordered Date First O rdered Date TDAP VACCINE =>7YO IM 1 03/23/2012 INFLUENZA VACCINE =>3YO SPLIT PRESERVATIVE 1 03/22 FREE IM documented in this encounter Care Teams Mate Chief Relationship Specialty Start Date End Date None, Provider PCP - General 03/21/12 03/31/12 documented as of this encounter
--- OUTSIDE RECORDS SUMMARY | 2021-08-16 23:34 | XMS_ITS | Encounter Summary ---
:1990 Author Organization [facility] Address [address] [place] [address] Care Team Providers Name Role Phone Monica Argueta MD Primary Care Provider [phone] Encounter Details Date Type Department Care Team Description 09/23/2010 Results Only Imaging [facility]- AbdoulKimOscar Sandersa , DO PRISM [phone] Social History Tobacco Use Types Packs/Day Years [...] Procedure Name Priority Date/Time Associated Comments Diagnosis RAD US PELVIS 09/30/2010 15:05 Results fo r this TRANSABDOMINAL AND EDT procedure are in TRANSVAGINAL the results section. documented in this encounter Results RAD US PELVIS TRANSABDOMINAL AND TRANSVAGINAL (09/30/2010 15:05 EDT) Anatomical Region Laterality Modality Other Specimen Narrative [facility] - 09/30/2010 16:24 EDT US PELVIS AND TRANSVAGINAL ??Sep 30, 2010 03:05:00 PM Signs and Symptoms/Comments: ??lymph nod es enlarged pelvic discomfort bloating and lymphadenopathy. Comparison: None. Technique: Grayscale, cine and Doppler u ltrasound images of the pelvis were obtained, first transabdomin ally, and then transvaginally to better delineate the adnexa. Findings: LMP: uncertain. The uterus is anteverted and normal in a ppearance, measuring 9.2 x 4.2 x 6.3 cm. The endometrial stripe has a uniform echotexture and measures 7 mm in double-thickness diamet er. The right ovary measures 4.4 x 3.1 x 2.7 cm and demonstrates normal arterial and venous flow. There is an an echoic cyst in the right ovary, measuring 2.1 x 1.9 x 2.1 cm, wit h minimal peripheral vascularity on color Doppler imaging. The left ovary measures 2.2 x 2.2 x 1.2 cm and demonstrates normal arterial and venous flow. There is a small amount of anechoic free fluid in the cul-de-sac. Impression: 1. Simple-appearing 2.1 cm right ovarian cyst, likely a benign functional cyst. Small amount of anechoi c fluid in the cul-de-sac, likely physiologic. 2. Otherwise unremarkable uterus and ova avtar. I have personally reviewed the images an d the above interpretation and agree with the findings. Procedure Note Rigoberto Huggins MD - 09/30/2010 US PELVIS AND TRANSVAGINAL Sep 30, 2010 03:05:00 PM Signs and Symptoms/Comments: lymph nodes enlarged pelvic discomfort bloating and lymphadenopathy. Comparison: None. Technique: Grayscale, cine and Doppler u ltrasound images of the pelvis were obtained, first transabdomin ally, and then transvaginally to better delineate the adnexa. Findings: LMP: uncertain. The uterus is anteverted and normal in a ppearance, measuring 9.2 x 4.2 x 6.3 cm. The endometrial stripe has a uniform echotexture and measures 7 mm in double-thickness diamet er. The right ovary measures 4.4 x 3.1 x 2.7 cm and demonstrates normal arterial and venous flow. There is an an echoic cyst in the right ovary, measuring 2.1 x 1.9 x 2.1 cm, wit h minimal peripheral vascularity on color Doppler imaging. The left ovary measures 2.2 x 2.2 x 1.2 cm and demonstrates normal arterial and venous flow. There is a small amount of anechoic free fluid in the cul-de-sac. Impression: 1. Simple-appearing 2.1 cm right ovarian cyst, likely a benign functional cyst. Small amount of anechoi c fluid in the cul-de-sac, likely physiologic. 2. Otherwise unremarkable uterus and ova avtar. I have personally reviewed the images an d the above interpretation and agree with the findings. Performing Organization Address City/State/ZIP Code Phon e Number [facility] documented in this encounter Visit Diagnoses Not on filedocumented in this encounter Care Teams Stripper Apprentice Relationship Specialty Start Date End Date Monica Argueta MD PCP - General 04/24/10 11/06/10 documented as of this encounter
--- OUTSIDE RECORDS SUMMARY | 2021-08-16 23:34 | XMS_ITS | Encounter Summary ---
:1990 Author Organization [facility] Address [address] [place] [address] Care Team Providers Name Role Phone Mandy Beck DO Primary Care Provider Encounter Details Date Type Department Care Team Description 04/13/2011 Results Only [facility] Mandy Beck, Laboratory Services - [id number] [place] [id number] [phone] Social History Tobacco Use Types Packs/Day Years [...] Procedure Name Priority Date/Time Associated Comments Diagnosis COLLECTION DATE Routine 03/23/2011 0:00 EST Resul ts for this ERROR procedure are i n the results section. documented in this encounter Results COLLECTION DATE ERROR (03/23/2011 0:00 EST) Orig. Collect Date: 03.23.11 [facility] Correct Brigida Date: 03.20.11 [facility] Date Error Noted: 04.13.11 [facility] Refer to Accn(s): [id number] [facility] Collect Date Original collect [facility] Message date forComment: this order was incorrect. Test(s) Affected: BACTERIAL CULT, [facility] FUNGUS CULTURE Specimen Performing Organization Address City/State/ZIP Code Phon e Number [facility] [address] [place] [address] SERVICES [facility] [address] [place] [address] documented in this encounter Visit Diagnoses Not on filedocumented in this encounter Care Teams Director Of Patient Care Relationship Specialty Start Date End Date Mandy Beck DO PCP - General 11/07/10 03/20/12 [place] [address] documented as of this encounter
--- OUTSIDE RECORDS SUMMARY | 2021-08-16 23:34 | XMS_ITS | Encounter Summary ---
:1990 Author Organization [facility] Address [address] [place] [address] Care Team Providers Name Role Phone Monica Argueta MD Primary Care Provider [phone] Encounter Details Date Type Department Care Team Description 09/29/2010 Results Only Imaging [facility]- Mandy eBck , DO PRISM [phone] Social History Tobacco Use Types Packs/Day Years [...] Name Priority Date/Time Associated Diagnosis Comme nts IR U/S DRAINAGE 10/06/2010 12:35 EDT Resu lts for this procedure are i n the results section. documented in this encounter Results IR U/S GUIDED NEEDLE BIOPSY AND DRAINAGE (10/06/2010 12:35 EDT) Anatomical Region Laterality Modality Other Specimen Narrative [facility] - 10/06/2010 16:33 EDT Ultrasound-guided fine-needle aspiration biopsy of right cervical lymph node 10/06/2010 at 1148 hours History: Painful cervical lymph nodes. Anca armstrong perform cervical lymph node biopsy. Description: Intravenous midazolam and f entanyl were administered for moderate sedation during continuous carol toring of the blood pressure, pulse rate, and oxygen saturation. Utilizing sterile technique, local lidoc raphael anesthesia, and real-time ultrasound guidance, 25-gauge needles were successively advanced into a right cervical lymph nod e located just anterior to the right common carotid artery. Multipl e 25-gauge fine needle aspiration biopsies were performed and s ubmitted to the cytopathologist. Additional biopsies wer e performed for flow cytometry. Ultrasound images were recorded. The patient tolerated the procedure well . ??No complication occurred. ?? The estimated blood loss during the proc edure was zero. Impression: Successful fine-needle aspir ation biopsy of a right cervical lymph node. Procedure Note 10/06/2010 Ultrasound-guided fine-needle aspiration biopsy of right cervical lymph node 10/06/2010 at 1148 hours History: Painful cervical lymph nodes. Anca armstrong perform cervical lymph node biopsy. Description: Intravenous midazolam and f entanyl were administered for moderate sedation during continuous carol toring of the blood pressure, pulse rate, and oxygen saturation. Utilizing sterile technique, local lidoc raphael anesthesia, and real-time ultrasound guidance, 25-gauge needles were successively advanced into a right cervical lymph nod e located just anterior to the right common carotid artery. Multipl e 25-gauge fine needle aspiration biopsies were performed and s ubmitted to the cytopathologist. Additional biopsies wer e performed for flow cytometry. Ultrasound images were recorded. The patient tolerated the procedure well . No complication occurred. The estimated blood loss during the proc edure was zero. Impression: Successful fine-needle aspir ation biopsy of a right cervical lymph node. Performing Organization Address City/State/ZIP Code Phon e Number [facility] documented in this encounter Visit Diagnoses Not on filedocumented in this encounter Care Teams Crap Game Box Person Relationship Specialty Start Date End Date Monica Argueta MD PCP - General 04/24/10 11/06/10 documented as of this encounter
--- OUTSIDE RECORDS SUMMARY | 2021-08-16 23:34 | XMS_ITS | Encounter Summary ---
:1990 Author Organization [facility] Address [address] [place] [address] Care Team Providers Name Role Phone Monica Argueta MD Primary Care Provider [phone] Encounter Details Date Type Department Care Team Description 10/23/2010 Hospital Encounter [facility] - Trevor Ocampo MD [address] [place] [phone] (Wo rk) Social History Tobacco Use Types [...] 60 mg by 0 09/07/2011 capsule mouth. gabapentin (NEURONTIN) 300 Take 300 mg by 0 10/30/2010 mg capsule mouth 3 times daily. HYDROmorphone (DILAUDID) 2 Take 1-2 mg by [...] or Self Care documented in this encounter Plan of Treatment Not on filedocumented as of this encounter Visit Diagnoses Not on filedocumented in this encounter Care Teams Evp Marketing Relationship Specialty Start Date End Date Monica Argueta MD PCP - General 04/24/10 11/06/10 documented as of this encounter
--- OUTSIDE RECORDS SUMMARY | 2021-08-16 23:34 | XMS_ITS | Encounter Summary ---
:1990 Author Organization [facility] Address [address] [place] [address] Care Team Providers Name Role Phone Mandy Beck DO Primary Care Provider Encounter Details Date Type Department Care Team Description 01/10/2011 Hospital Encounter [facility] MD Liz [address] [address] [place] [address] [place] [address] (Wo rk) Social History Tobacco Use Types [...] on filedocumented in this encounter Care Teams Nurse Reviewer Relationship Specialty Start Date End Date Mandy Beck DO PCP - General 11/07/10 03/20/[address] [place] [address] documented as of this encounter
--- OUTSIDE RECORDS SUMMARY | 2021-08-16 23:34 | XMS_ITS | Encounter Summary ---
:1990 Author Organization [facility] Address [address] [place] [address] Care Team Providers Name Role Phone Yuko Argueta MD Primary Care Provider [phone] Encounter Details Date Type Department Care Team Description 10/06/2010 Results Only [facility] Tiana Villatoro Interventional Radiology - MD Win [facility] 111 [facility] [address] [place], [place] [id number] [place] [address] [phone] (Wo rk) Social History Tobacco Use Types [...] Name Priority Date/Time Associated Diagnosis Comme nts FLOW CYTOMETRY Routine 10/06/2010 12:30 EDT Resul ts for this procedure are i n the results section . CYTOPATHOLOGY Routine 10/06/2010 0:00 EDT Results for this procedure are i n the results section . documented in this encounter Results FLOW CYTOMETRY (10/06/2010 12:30 EDT) Pathology FLOW CYTOMETRY REPORT ? [facility] GI[facility]AN[facility] Report: ? LAB Reports generated via electr onic interface contain original data; ? however they are lacking the format of the original report. ? Caution should be taken when reading/interpreting unformatted reports. ? Name: ? EUBANKS, MARY GRACE ? Accession #: ? [id number] ? : ? 1990 (Age: 19) ??F ?Collect Date: ? 10/06/2010 12:30 ? Location: ? RAD ? Receive Date: ? 10/06/2010 12:40 ? Provider: ?ALISA DAMAT O DO ? Copy to: ?YUKO G ROSI MD ? CHRISTOPHER S KENNETH MD ? ROSANA C KELLY MD ? FINAL IMMUNOPHENOTYPIC INTER PRETATION: ? Lymph node, FNA, flow cytome tric analysis: ?- No immunophenotypic joaquin dence of a clonal cell population. ??See comment. ? COMMENT: ? The results of flow c ytometry show no immunophenotypic evidence of ? involvement by a clonal lymp hoproliferative disorder. ??The results are ? consistent with reactive lym phocytes. ??Flow cytometry is not sensitive for the ?? detection of Hodgkin lymphom a. ??Selective cell loss may occur and may reduce ? sensitivity for the detectio n of large cell lymphoma. ??Correlation of these ? findings with morphologic an d clinical data is essential; please refer to ? cytopathology report ([id number]) for morphologic details. ? Document reviewed and electr onically signed by: ? SUDHA PACHECO MD ? Report Date: ??10/08/2010 09 :05 ? By the signature above, the attending physician certifies that he/she has ? personally conducted an eval uation of the described specimen and rendered or ? confirmed the above diagnosi s. ? CLINICAL HISTORY: ? The patient is a 19-y ear-old female with painful cervical lymph nodes. ? DESCRIPTION: ? The specimen consists of a lymph node fine needle aspirate from which a ? single cell suspension is pr epared. ??Gating is performed using CD45 fluorescence and side scatter. ??Cellular viability (assessed by propidium iodide exclusion) ?? is good (94%) among cells wi th CD45 and side scatter properties typical of ? lymphocytes and good (86%) a delia CD45+ events overall. ??A limited panel of ? antibodies is used. ??Expres jada of the following markers is tested: CD2, CD3, ?? CD4, CD5, CD7, CD8, CD10, CD 14, CD16, CD19, CD20, CD23, CD38, CD45, CD56, CD57, FMC-7, kappa light chain, la mbda light chain. ? A majority of the lymphoid c ells are T-lymphocytes (CD2+CD3+CD5+CD7+) with CD4+ and CD8+ subsets represented . CD4 expression is dim. ?? The remaining lymphocytes are B-lymphocytes (CD19+CD20 +). ??B-cells are few in number but appear polytypic. ? This test was develop ed and its performance characteristics determined by ?? the Department of Pathology and Laboratory Medicine, [place], [place] ??It has not been cleared or approved by the U.S. Food and Drug ?? Administration. ? End of Report ? Specimen Performing Organization Address City/State/ZIP Code Phon e Number [facility] [address] [place] [address] SERVICES [facility] [address] [place] [address] CYTOPATHOLOGY (10/06/2010 0:00 EDT) Pathologist [facility] Pathology Report: CYTOPATHOLOGY REPORT ? BEULAH HERRERA EN ? LAB Reports generated via electr onic interface contain original data; ? however they are lacking the format of the original report. ? Caution should be taken when reading/interpreting unformatted reports. ? Name: ? MARY GRACE EUBANKS ? Accession #: ? [id number] ? : ? 1990 (Age: 19) ??F ?Collect Date: ? 10/06/2010 ? Location: ? RAD ? Receive Date: ? 10/06/2010 ? Provider: ? TIANA S KENNETH MD ? Copy to: ?YUKO G ROSI MD ? ALISA ADRIANNE DO ? CYTOLOGIC DIAGNOSIS: ? Lymph node, cervical, right, 1.2 cm, ultrasound guided fine needle ? aspiration: ? - Quiescent/reactive lymphoi d tissue. ??See comment. ? COMMENT: ? The specimen is cellu lar with predominantly small lymphocytes present with occasional larger forms and histocytes in the background. This pattern is ? consistent with a quiescent/ mildly reactive lymph node. The concurrent flow ? cytometry specimen ([id number]) shows no evidence of a clonal immunophenotypic ? population. ??(Dr. Santana)/maggie n ? Document reviewed and electr onically signed by: ? ROSANA KELLY MD ? Report Date: ??10/08/2010 08 :51 ? By the signature above, the attending physician certifies that he/she has ? personally conducted a gross and/or microscopic examination of the described ? specimens and rendered or co nfirmed the above diagnosis. ? Specimen Type: ? Lymph Node, Fine Needle Aspi ration ? Clinical History: ? Painful cervical lymp h nodes ? Rapid Interpretation: ? Cervical lymph node, right, 1.2 cm, ultrasound guided fine needle ? aspiration: ? Evaluation episode #1: ? Passes 1-3: ??Lymphoid tissue. ? Requested additional passes for flow cytometry (passes 4-7, no slides). ? (Dr. John Kelly; 10/06/2010; 12 :25 p.m.) ? Gross Description: ? 3 fixed prepared slid es and 3 air dried prepared slides were received. ? End of Report ? Specimen Performing Organization Address City/State/ZIP Code Phon e Number [facility] [address] [place] [address] SERVICES [facility] [address] [place] [address] documented in this encounter Visit Diagnoses Not on filedocumented in this encounter Care Teams Registered Nurse Obstetrics Relationship Specialty Start Date End Date Yuko Argueta MD PCP - General 04/24/10 11/06/10 documented as of this encounter
--- OUTSIDE RECORDS SUMMARY | 2021-08-16 23:34 | XMS_ITS | Encounter Summary ---
:1990 Author Organization [facility] Address [address] [place] [address] Care Team Providers Name Role Phone Monica Argueta MD Primary Care Provider [phone] Encounter Details Date Type Department Care Team Description 09/11/2010 Results Only [facility] Mandy Beck, Laboratory Services - [id number] [place] [id number] [phone] Social History Tobacco Use Types Packs/Day Years [...] Procedure Name Priority Date/Time Associated Comments Diagnosis VITAMIN D (25,OH) Routine 09/11/2010 10:03 Result s for this EDT procedure are i n the results section. LYME AB Routine 09/11/2010 10:03 Results for this EDT procedure are i n the results section. CHENG-KIM PANEL Routine 09/11/2010 10:03 Resul ts for this EDT procedure are i n the results section. TOXOPLASMA AB, IGM, Routine 09/11/2010 10:03 Resu lts for this S EDT procedure are i n the results section. CMV IGG Routine 09/11/2010 10:03 Results for this EDT procedure are i n the results section. SED RATE Routine 09/11/2010 10:03 Results for this EDT procedure are i n the results section. RHEUMATOID FACTOR Routine 09/11/2010 10:03 Result s for this EDT procedure are i n the results section. ANTI NUCLEAR AB Routine 09/11/2010 10:03 Results for this (MARIBEL), IFA EDT procedure are i n the results section. TSH Routine 09/11/2010 10:03 Results for this EDT procedure are i n the results section. documented in this encounter Results VITAMIN D (25,OH) (09/11/2010 10:03 EDT) 25OH Vitamin D Tot 18.5 ng/ml [facility] Comment: LAB Reference Range: <10 ng/ml: Deficient 10-30 ng/m l: Insufficient 30-100 ng/ml: Sufficient >100 ng/ml: Toxic Specimen Performing Organization Address [facility] Phon e Number [facility] [address] [place] [address] SERVICES [facility] [address] [place] [address] TSH (09/11/2010 10:03 EDT) Pathologist Sig nature TSH 0.99 0.35 - 5.00 uIU/ml [facility] Specimen Performing Organization Address City/[facility] Phon e Number [facility] [address] [place] [address] SERVICES [facility] [address] [place] [address] TOXOPLASMOSIS IGM ANTIBODY (09/11/2010 10:03 EDT) Pathologist [facility] Toxoplasmosis IgM Ab <0.55Reference range: <0.55 CHARANJIT HEREDIA Unit: threshold LAB Performed by: [facility] Path [facility] , [address] ?? , [place] [address], Lab Dir: ??George montalvo III, M.D. Specimen Performing Organization Address [facility] Phon e Number [facility] [address] [place] [address] SERVICES [facility] [address] [place] [address] SED. RATE:WESTERGREN (09/11/2010 10:03 EDT) Pathologist Sig nature Sed. Rate Westergren 3 0 - 20 mm/hr [facility] Specimen Performing Organization Address City/[facility]/ZIP [facility] Phon e Number [facility] [address] [place] [address] SERVICES [facility] [address] [place] [address] RHEUMATOID FACTOR (09/11/2010 10:03 EDT) Pathologist Sig nature Rheumatoid Factor <20 <20 IU/ml [facility] Specimen Performing Organization Address City/[facility]/ZIP Code Phon e Number [facility] [address] [place] [address] SERVICES [facility] [address] [place] [address] LYME AB (09/11/2010 10:03 EDT) Pathologist Sig nature Lyme AB Interpretation: Negative [facility] GIOVAN[facility] L AB Reference Range: Negative Specimen Performing Organization Address [facility] Phon e Number [facility] [address] [place] [address] SERVICES [facility] [address] [place] [address] CHENG KIM PANEL (09/11/2010 10:03 EDT) EBV VCA IgM Ab, S Positive [facility] Reference range: Negative LAB EBV VCA IgG Ab, S Positive [facility] Reference range: Negative LAB EBNA Ab, S Positive [facility] Reference range: Negative LAB Interpretation [facility] GI[facility]AN[facility] Results may suggest recovery or reactivation. ? LAB ? In most populations, at leas t 90% of the adult population ? will have been infected with EBV sometime in the past and ? therefore, will be positive for anti-VCA/IgG and anti-EBNA. ? Antibodies to EBNA develop 6 -8 weeks after primary infection ? and remain present for life. ??Presence of VCA/IgM antibodies ? indicates recent primary inf ection with EBV. ? Performed by: [facility] [place], [address], ? [place] [address], Lab Dire ctor: Betina Sutton, Ph.D. ? Specimen Performing Organization Address City/[facility]/ZIP [facility] Phon e Number [facility] [address] [place] [address] SERVICES [facility] [address] [place] [address] CMV ANTIBODY IGG (09/11/2010 10:03 EDT) CMV Antibody IgG Negative [facility] Assayed utilizing the my6sense system. Values may vary with other methods. Specimen Performing Organization Address City/[facility]/ZIP [facility] Phon e Number [facility] [address] [place] [address] SERVICES [facility] [address] [place] [address] ANTI NUCLEAR ANTIBODY (09/11/2010 10:03 EDT) Pathologist Sig nature Anti Nuclear Ab <40 0 - 40 Dils [facility] Specimen Performing Organization Address City/[facility]/ZIP [facility] Phon e Number [facility] [address] [place] [address] SERVICES [facility] [address] [place] [address] documented in this encounter Visit Diagnoses Not on filedocumented in this encounter Care Teams Ex Assistant/Program Director Relationship Specialty Start Date End Date Monica Argueta MD PCP - General 04/24/10 11/06/10 documented as of this encounter
--- OUTSIDE RECORDS SUMMARY | 2021-08-16 23:34 | XMS_ITS | Encounter Summary ---
:1990 Author Organization [facility] Address [address] [place] [address] Care Team Providers Name Role Phone Noe Kurtz MD Primary Care Provider Reason for Referral Consult (48 Hrs (Urgent)) - Closed Specialty Diagnoses / Procedures Referred By Contact Refer red To Contact Psychology Diagnoses Paranoid schizophrenia (HCC-CMS) (HCC) Noe Kurtz MD [address] [place] [id number] Referral ID Status Reason Start Date Expiration Date Visits V isits Requested Authorized [id number] Closed Specialty 04/08/2012 1 1 Services Required Question Answer Reason for Request: Paranoid Schizophrenia Comments Mita can you please assist this patient in scheduling follow up with [facility]. She has paranoid Schizophrenia a nd can't call on her own. She is also and needs to be seen urgently. I tried to call today and left a message, really don't want her to get lost. Reason for Visit Reason Comments Back Pain Schizophrenia Encounter Details Date Type Department Care Team Description 04/08/2012 Office Visit [facility] Unknown, Prov MD alexey Paranoid schizophrenia (CMS-HCC) (Primar y Dx); Family Medicine - Noe Kurtz MD [address] [place] [address] Supervision of normal first [address] [address] Social History Tobacco Use Types Packs/Day Years Used Date Current Some Day Smoker 0.25 9 Smokeless Tobacco: Never Used Tobacco Cessation: Ready to Quit: No; Co unseling Given: No Comments: occasional Alcohol Use Standard Drinks/Week Comments No 0 (1 standard drink = 0.6 oz pure alcoho l) occ Sex Assigned at Date Recorded Not on file documented as of this encounter Last Filed Vital Signs Vital Sign Reading Time Taken Comments Blood Pressure 110/58 04/08/2012 1122 EST Pulse 100 04/08/2012 1122 EST Temperature 36.1 ??C (97 ??F) 04/08/2012 1122 EST Respiratory Rate - - Oxygen Saturation - - Inhaled Oxygen Concentration - - Weight 109.8 kg (242 lb) 04/08/2012 1122 EST With Shoes Height - - Body Mass Index 40.27 04/05/2012 1400 EST documented in this encounter Functional Status Cognitive Status Response Date of Assessment Because of a physical, mental, or emotional condition, do Ye s 09/04/2011 you have serious difficulty concentrating, remembering, or making decisions? (5 years old or older) documented as of this encounter Progress Notes Sulema Gaffney MD - 04/12/2012 1456 EST Attestation statement for office patient seen by attending: I saw and examined the patient on the day of this service and agree with the findings and plan of care documented in the resident's/fellow's note. Sulema Gaffney MD Family Medicine Attending 04/12/2012 14:56 Noe Matias MD - 04/08/2012 1137 EST Subjective: Patient ID: Mary Grace Harris is an 21 y.o. female. Chief Complaint Patient presents with ??? Back Pain ??? Schizophrenia HPI Comments: Patient is here for a followup visit. She was seen 2 weeks ago as a new patient to the practice. She was and referred to obstetrics as she is high risk with her paranoid schizophrenia and recent weight gain. Patient saw OB MFM. She is really unsure and is not able to provide a lot history about what was talked about with OB. Her grandmother Hellen is with her again today and she reports that the obstetrics team recommended that she have ultrasound monitoring the third trimester for growth. Apparently they recommended to follow on an as-needed basis and not decide to see her for her obstetrical care. Patient is indifferent about who she follows with for her obstetrical care and will follow with us i possible. OB recommends psych consult as we did not apparently they told patient it is hard to see them. Patient has not heard anything about a psychiatry appointment yet, and she is very anxious to have counseling again she is worried about her mental health. She continues to take zyprexa, but is worried because she has had an 8 pound weight gain since starting the medication. Her grandmother again reiteratesthat the medicine has been helping her mentally. From a standpoint. No n,v, eating well. + FM No lof, no vb. + cramping one month ago but none since. Patient reports that she is going to be having a boy Jose Pro. Her contact information is as follows: M [phone] H [phone] Grandmother Ellen Harris: [phone] Back Pain Pertinent negatives include no abdominal pain, dysuria, fever, headaches or weight loss. Patient Active Problem List Diagnoses ??? Spells ??? Depression ??? Celiac disease ??? Anxiety ??? Thyroid nodule ??? Strain of neck muscle ??? Psychosis ??? Paranoid schizophrenia ??? Chronic pain syndrome Past Medical History Diagnosis Date ??? Tendinitis ??? Torticollis ??? Laceration 12/04/06 left 5th digit tendon,nerve laceration ??? Myofascial pain right shoulder and neck myofascial pain ??? Psychiatric problem anxiety ??? Mental disorder ??? Fibromyalgia ??? Scoliosis Current Outpatient Prescriptions on File Prior to Visit Medication Sig Dispense Refill ??? Vit-Iron Fumarate-FA ( 19) 29-1 mg Chew Take 1 Cap by mouth daily. 30 Cap 5 ??? olanzapine (ZYPREXA) 10 mg tablet Take 1 Tab by mouth daily. 30 Tab 1 ??? olanzapine (ZYPREXA) 20 mg tablet Take 1 Tab by mouth daily. 30 Tab 1 ??? HYDROmorphone (DILAUDID) 2 mg tablet Take [...] Use: No occ Review of Systems Constitutional: Negative for fever, chills and weight loss. Gastrointestinal: Positive for heartburn. Negative for nausea, vomiting and abdominal pain. Genitourinary: Negative for dysuria. Musculoskeletal: Positive for back pain. Neurological: Negative for headaches. Psychiatric/Behavioral: Positive for hallucinations. The patient is nervous/anxious. Patient reports positive auditory hallucinations I hear people praying she reports this has been stable. No suicidal or homicidal ideation. - See HPI Objective: BP 110/58 Pulse 100 Temp(Src) 36.1 ??C (97 ??F) (Oral) Wt 109.77 kg (242 lb) Physical Exam Nursing note and vitals reviewed. Constitutional: She is oriented to person, place, and time. She appears well- developed and well-nourished. No distress. HENT: Head: Normocephalic and atraumatic. Eyes: Conjunctivae and EOM are normal. Neck: Normal range of motion. Pulmonary/Chest: Effort normal. Musculoskeletal: Normal range of motion. Neurological: She is alert and oriented to person, place, and time. Skin: She is not diaphoretic. Psychiatric: She has a normal mood and affect. Her behavior is normal. Judgment and thought content normal. Fundal height: 25 cm FHTs: 130 beats per minute Assessment/Plan: Mary Grace was seen today for back pain and schizophrenia. Diagnoses and associated orders for this visit: Paranoid schizophrenia Patient appears stable from a psychiatric standpoint. She has however had a 9 pound weight gain from2 weeks ago. This in addition to approximately 60 pound weight gain she has had since starting Zyprexa. Unfortunately patient has not yet seen psychiatry. We'll again see if I can return urgent appointment given that she is . In meantime I will also look into having patient seen for counselingwith Damon mental health issues found them helpful in the past. - Ambulatory Consult Psychology Supervision of normal first It appears as though patient has elected to follow with us for her obstetrical care. I will await the recommendations from OB MFM consult when the note published. We'll again pushed to have her seen from a psychiatry standpoint as I think this is her primary medical issue. In concerned about her high weight gain. Agree with the decision to have growth scans to monitor the baby in the third trimester.I am reassured that her one hour Glucola was within normal limits although it was early at 24 weeks.We'll recheck a 20 weeks. We'll review labs and records which we obtained from [facility], and have been added to her medical record. Labs and blood work appeared to benormal thus far. Will have patient schedule for initial visit in 2 weeks to do a full intake at that time. Patient discussed with Attending Noe Sim MD, MPH PGY - 2 Family Medicine, 2173 documented in this encounter Plan of Treatment Scheduled Referrals Name Type Priority Associated Diagnoses Order S chedule AMB CONSULT Outpatient Referral Routine Paranoid schizophreni a Ordered: PSYCHOLOGY ([facility]) 04/08/2012 documented as of this encounter Visit Diagnoses Diagnosis Paranoid schizophrenia ([facility]) ([facility]) - Primary Paranoid schizophrenia, unspecified cond ition Supervision of normal first documented in this encounter Discontinued Medications Medication Sig Discontinue Reason Start Date End Date HYDROmorphone (DILAUDID) 2 Take 1-2 mg by 10/05/2010 04/08/2012 mg tablet mouth 3 times daily as needed. lorazepam (ATIVAN) 0.5 mg Take 1 mg by mouth 04/08/2012 Tab as needed. 1 -2 tabs. documented as of this encounter Care Teams Aerospace Engineer Relationship Specialty Start Date End Date Noe Kurtz MD PCP - General 04/01/12 05/02/13 documented as of this encounter
--- OUTSIDE RECORDS SUMMARY | 2021-08-16 23:34 | XMS_ITS | Encounter Summary ---
:1990 Author Organization [facility] Address [address] [place] [address] Care Team Providers Name Role Phone Mandy Beck DO Primary Care Provider Encounter Details Date Type Department Care Team Description 03/23/2011 Results Only [facility] Mandy Beck, Laboratory Services - [address] [address] [phone] Social History Tobacco Use Types Packs/Day Years [...] Name Priority Date/Time Associated Diagnosis Comme nts FUNGUS CULTURE Routine 03/23/2011 17:38 EST Resul ts for this procedure are i n the results section . documented in this encounter Results FUNGUS CULTURE, OTHER (03/23/2011 17:38 EST) Specimen Description Vagina Specimen [facility] O[facility] submitted on a swab Result No fungi isolated [facility] Report Status 04/14/2011 Final [facility] Specimen Vagina Performing Organization Address City/State/ZIP Code Phon e Number [facility] [address] [place] [address] SERVICES [facility] [address] [place] [address] documented in this encounter Visit Diagnoses Not on filedocumented in this encounter Care Teams Quiller Operator Relationship Specialty Start Date End Date Mandy Beck DO PCP - General 11/07/10 03/20/[address] [place] [place] [address] documented as of this encounter
--- OUTSIDE RECORDS SUMMARY | 2021-08-16 23:34 | XMS_ITS | Encounter Summary ---
:1990 Author Organization [facility] Address [address] [place] [address] Care Team Providers Name Role Phone Mandy Beck Primary Care Provider Reason for Visit Reason Comments Medical Evaluation pt had an upper and lower GI one month ago. Found a hernia. Pt states that she is here for US. I want an US! and I need someone to poke around me a little. She states that her insides are swollen, and she can fee l them bulging out on her left side. She states that he kidneys a re swollen also. Her groin is swollen and the pain is deep. Encounter Details Date Type Department Care Team Description 01/10/2011 Emergency [facility] Hollis Echols MD [address] [place] [address], [address] [place] [address] Abdominal pain Emergency Department - Emergency, MD Chel[facility] [address] [place] [address] Social History Tobacco Use Types [...] Sign Reading Time Taken Comments Blood Pressure 114/78 01/10/2011 1628 EDT Pulse 80 01/10/2011 1628 EDT Temperature 36.6 ??C (97.9 ??F) 01/10/2011 1337 EDT Respiratory Rate 16 01/10/2011 1628 EDT Oxygen Saturation 99% 01/10/2011 1337 EDT Inhaled Oxygen Concentration - - Weight 77.1 kg (170 lb) 01/10/2011 1337 EDT Height - - Body Mass Index 28.29 11/07/2010 1229 EDT documented in this encounter Discharge Instructions InstructionsWShakir deleon MD - 01/10/2011 Continue your regular medications, including your omeprazole. Follow up with your primary care physician and GI. Return to the Emergency Department (ED) if your condition worsens, does not improve as expected, or other new concerns arise. Specifically return if you have new or uncontrolled pain, high fever, difficulty breathing, vomiting and unable to keep down fluids or medications, or any other concerns. AttachmentsThe following attachments cannot be sent through Care Everywhere. ABDOMINAL PAIN IN ADULTS: AFTER YOUR VISIT (FAROESE)documented in this encounter Medications at Time of [...] Care documented in this encounter ED Notes Heather Gunter RN - 01/10/2011 1542 EDT RN at bedside for pelvic/rectal exam by . Pt tolerated procedure. Heather Monk RN - 01/10/2011 1524 EDT Blood drawn via butterfly needle per protocol, tiger, blue, green and purple tube(s) sent to lab perorder. Shakir Geronimo MD - 01/10/2011 1443 EDT DOS: 01/10/2011 Chief Complaint Patient presents with ??? Medical Evaluation pt had an upper and lower GI one month ago. Found a hernia. Pt states that she is here for US. I want an US! and I need someone to poke around me a little. She states that her insides are swollen,and she can feel them bulging out on her left side. She states that he kidneys are swollen also. Hergroin is swollen and the pain is deep. The patient is a 20 y.o. female who presents today with Medical Evaluation HPI Comments: Initial patient contact. 01/10/2011 14:43 Mary Grace Harris is a 20 y.o. female who presents with a chief complaint of abdominal swelling. Patient notes history of chronic abdominal pain and vomiting. She's had prior ultrasound that was normal. Approximately one month ago she had an upper endoscopy and colonoscopy that were normal except for some area of small gastric erosion which was biopsied. Patient has recently been started on omeprazole. Patient now presents complaining of approximately one month, ever since the procedure, a feeling likeshe has a swollen colon. She says that she's achy all around her abdomen and feels like her insides are falling out and that her kidneys hurt. She also notes groin pain. Pt denies fever, chills, vomiting, diarrhea, chest pain, difficulty breathing or other concerns. Medical Evaluation Associated symptoms include abdominal pain. Pertinent negatives include no fever, no diarrhea, no nausea, no vomiting, no headaches and no rash. The history is provided by the patient. Review of Systems Constitutional: Negative for fever and chills. HENT: Negative for neck stiffness. Eyes: Negative for visual disturbance. Respiratory: Negative for shortness of breath. Cardiovascular: Negative for chest pain. Gastrointestinal: Positive for abdominal pain and abdominal distention (subjective). Negative for nausea, vomiting and diarrhea. Genitourinary: Positive for pelvic pain. Negative for difficulty urinating. Musculoskeletal: Negative for joint swelling. Skin: Negative for rash. Neurological: Negative for weakness and headaches. Psychiatric/Behavioral: Negative for confusion. All other systems reviewed and are negative. Past Medical History Diagnosis Date ??? Tendinitis ??? Torticollis ??? Laceration 12/04/06 left 5th digit tendon,nerve laceration ??? Myofascial pain right shoulder and neck myofascial pain ??? Psychiatric problem anxiety ??? Mental disorder Past Surgical History Procedure Date ??? Finger surgery left Allergies Allergen Reactions ??? Paxil (Paroxetine Hcl) Nausea And Vomiting History Substance Use Topics ??? Smoking status: Current Some Day Smoker -- 0.2 packs/day Last Attempt to Quit: 11/06/2009 ??? Smokeless tobacco: Never Used Comment: occasional ??? Alcohol Use: No occ Family History Problem Relation Age of Onset ??? Schizophrenia Mother ??? Diabetes ??? Bipolar Disorder uncle Vital Signs Temp: 36.6 ??C (97.9 ??F) Temp src: Tympanic Pulse: 80 Resp: 16 SpO2: 99 % SpCO: 4 % BP: 114/78 mmHg BP Device: BP Machine Patient Position: Sitting BP Cuff Location: Right arm O2 Device: None (Room air) Physical Exam Nursing note and vitals reviewed. Constitutional: She is oriented to person, place, and time. She appears well- developed and well-nourished. HENT: Mouth/Throat: Oropharynx is clear and moist. Eyes: EOM are normal. Pupils are equal, round, and reactive to light. No scleral icterus. Neck: Normal range of motion. Neck supple. Cardiovascular: Normal rate, regular rhythm and normal heart sounds. Pulmonary/Chest: Effort normal and breath sounds normal. Abdominal: Soft. She exhibits no distension. There is no rebound, no guarding and no CVA tenderness. Genitourinary: Vagina normal. Guaiac negative stool (sludge control attendant passed). Cervix exhibits no motion tenderness, no discharge and no friability. Right adnexum displays no mass, no tenderness and no fullness. Left adnexum displays no mass, no tenderness and no fullness. Musculoskeletal: Normal range of motion. She exhibits no edema. Neurological: She is alert and oriented to person, place, and time. She has normal strength. Skin: Skin is warm and dry. No rash noted. Psychiatric: She has a normal mood and affect. Radiology orders: ACUTE ABDOMEN SERIES ACUTE ABDOMEN SERIES Final result not shown here.: Procedures ED Course: A medical screening exam was performed. Labs Reviewed BUN - Abnormal; Notable for the following: BUN 6 (*) All other components within normal limits CREATININE - Abnormal; Notable for the following: Creatinine 0.60 (*) All other components within normal limits HEMAGRAM AND DIFFERENTIAL - Abnormal; Notable for the following: Eosinophils 0.3 (*) All other components within normal limits POCT URINE DIPSTICK POCT URINE TEST ELECTROLYTES SCREENING GLUCOSE LIVER FUNCTION TESTS LIPASE CALCIUM CHLAMYDIA/GC AMPLIFIED Acute abdominal series was reviewed and interpreted by me. No free air or obstruction. Radiographic study(ies) reviewed and discussed with radiology. Prior to discharge usual and customary precautions were reviewed with the patient and/or family including follow-up instructions and reasons to return to the Emergency Department if condition worsens, does not improve as expected, or other new concerns arise. Disposition: Discharged The patient's pain was managed to an adequate level weighing risk vs. benefit of further medications. Upon departure from the Emergency Department, the patient's pain was 1 on a zero to ten scale. Condition at departure from the Emergency Department: Improved Discharge Prescriptions New Prescriptions No Discharge Prescriptions for this patient MDM Number of Diagnoses or Management Options Abdominal pain: Diagnosis management comments: 4 Amount and/or Complexity of Data Reviewed Clinical lab tests: ordered and reviewed Tests in the radiology section of CPT??: ordered and reviewed Discussion of test results with the performing providers: yes Review and summarize past medical records: yes Independent visualization of images, tracings, or specimens: yes Patient Progress Patient progress: stable 1. Abdominal pain PCP: Mandy Brar DO 01/11/2011 8:09 documented in this encounter Miscellaneous Notes Scanned Note-Null - Storeperson, Scan - 01/13/2011 1542 EST documented in this encounter Plan of Treatment Not on filedocumented as of this encounter Procedures Procedure Name Priority Date/Time Associated Comments Diagnosis CHLAMYDIA/N. Routine 01/10/2011 15:45 Results for this GONORRHOEAE AMPLIFIED EDT proced ure are in RNA the results section. POCT TEST, STAT 01/10/2011 15:29 Res ults for this VISUAL READ EDT procedure are i n the results section. POCT URINE DIPSTICK, STAT 01/10/2011 15:24 Res ults for this CLINITEK EDT procedure are i n the results section. SCREENING GLUCOSE STAT 01/10/2011 15:21 Result s for this EDT procedure are i n the results section. COMPLETE BLOOD COUNT STAT 01/10/2011 15:21 Res ults for this AND DIFFERENTIAL EDT procedure a re in the results section. BUN STAT 01/10/2011 15:21 Results for this EDT procedure are i n the results section. LIPASE STAT 01/10/2011 15:21 Results for this EDT procedure are i n the results section. CREATININE STAT 01/10/2011 15:21 Results for this EDT procedure are i n the results section. CALCIUM STAT 01/10/2011 15:21 Results for this EDT procedure are i n the results section. HEPATIC FUNCTION STAT 01/10/2011 15:21 Results for this PANEL (ALB,ALK EDT procedure are in PHOS,ALT,AST,DBIL,TOT the re sults AGNIESZKA,TOT PROT) section. ELECTROLYTES STAT 01/10/2011 15:21 Results for this EDT procedure are i n the results section. ACUTE ABDOMEN SERIES STAT 01/10/2011 15:12 Res ults for this EDT procedure are i n the results section. documented in this encounter Results CHLAMYDIA/GC AMPLIFIED (01/10/2011 15:45 EDT) Specimen Cervix [facility] Description LAB Chlamydia Result No Chlamydia [facility] trachomatis DNA LAB detected by adjustment clerk mediated amplification. GC Result No Neisseria [facility] gonorrhoeae DNA LAB detected by adjustment clerk mediated amplification. Specimen Other (qualifier value) Performing Organization Address City/State/ZIP Code Phon e Number [facility] [address] [place] [address] SERVICES [facility] [address] [place] [address] POCT URINE TEST (01/10/2011 15:29 EDT) Pathologist Sig nature Test, Negative Reference Range, POINT OF CARE Urine, POC Negative Control Line Present Yes POINT OF CARE Background Clear? Yes POINT OF CARE Specimen Urine (substance) Performing Organization Address [facility] Phon e Number [facility] POINT OF CARE POINT OF CARE POCT URINE DIPSTICK (01/10/2011 15:24 EDT) Color YELLOW [facility] Clarity, UA Clear [facility] Glucose Neg Neg [facility] Bilirubin Neg Neg [facility] Ketones Neg Neg [facility] Specific [place] 1.020 1.001 - 1.035 [facility] Blood Neg Neg [facility] pH 7.5 4.6 - 8.0 [facility] Protein Neg Neg [facility] Urobilinogen 0.2 0.2 - 1.0 [facility] E.U./dl LAB Nitrite Neg Neg [facility] Leuk Esterase Neg Neg [facility] manager gallery ID [id number]: [facility] Test Performed by LAB Nursing Services Specimen Urine (substance) Performing Organization Address [facility] Phon e Number [facility] [address] [place] [address] SERVICES [facility] [address] [place] [address] (ABNORMAL) HEMAGRAM AND DIFFERENTIAL (01/10/2011 15:21 EDT) Pathologist Sig nature WBC 9.01 4.0 - 12.4 K/cmm [facility] RBC 4.92 3.86 - 5.04 M/cmm [facility] Hemoglobin 14.7 11.6 - 15.2 gm/dl [facility] HCT 42.0 34.9 - 44.4 % [facility] MCV 85 81 - 98 fl [facility] MCH 29.8 26.7 - 33.3 pg [facility] MCHC 34.9 32.1 - 35.9 gm/dl [facility] PLT 241 141 - 320 K/cmm [facility] RDW-CV 13.0 11.7 - 14.6 % [facility] Neutrophils 65.2 45.5 - 79.7 % [facility] Lymphocytes 26.8 15.0 - 46.8 % [facility] Monocytes 7.4 1.8 - 12.0 % [facility] Eosinophils 0.3 (L) 0.6 - 6.9 % [facility] Basophils 0.3 0.2 - 1.4 % [facility] ABS Neutrophils 5.88 2.20 - 8.85 K/cmm [facility] ABS Lymphs 2.41 1.09 - 3.30 K/cmm [facility] ABS Monocytes 0.67 0.1 - 0.8 K/cmm [facility] ABS Eosinophils 0.03 0.03 - 0.61 K/cmm [facility] ABS Basophils 0.03 0.01 - 0.11 K/cmm [facility] Type of Diff: Automated [facility] Specimen Blood specimen (specimen) Performing Organization Address City/[facility] Phon e Number [facility] [address] [place] [address] SERVICES [facility] [address] [place] [address] CALCIUM (01/10/2011 15:21 EDT) Pathologist Sig nature Calcium 9.7 8.5 - 10.5 mg/dl [facility] Calculated Calcium 9.7 8.5 - 10.5 mg/dl [facility] Specimen Blood specimen (specimen) Performing Organization Address [facility]/ZIP [facility] Phon e Number [facility] [address] [place] [address] SERVICES [facility] [address] [place] [address] LIPASE (01/10/2011 15:21 EDT) Pathologist Sig nature Lipase 59 0 - 250 U/L [facility] Specimen Blood specimen (specimen) Performing Organization Address [facility] Phon e Number [facility] [address] [place] [address] SERVICES [facility] [address] [place] [address] LIVER FUNCTION TESTS (01/10/2011 15:21 EDT) Pathologist Sig nature Albumin 4.4 3.4 - 4.9 g/dl [facility] Total Protein 7.3 6.5 - 8.3 g/dl [facility] Total Alkaline 69 38 - 126 U/L [facility] Phosphatase ALT 23 9 - 52 U/L [facility] AST 15 15 - 46 U/L [facility] Unconjugated Bilirubin 0.6 0.1 - 1.1 mg/dl [facility] Conjugated Bilirubin 0.0 0.0 - 0.3 mg/dl [facility] Bilirubin, Total 0.5 0.2 - 1.3 mg/dl [facility] Specimen Blood specimen (specimen) Performing Organization Address City/[facility]/ZIP Code Phon e Number [facility] [address] [place] [address] SERVICES [facility] [address] [place] [address] (ABNORMAL) CREATININE (01/10/2011 15:21 EDT) Pathologist Sig nature Creatinine 0.60 (L) 0.7 - 1.5 mg/dl [facility] GFR, Calculated >60 >60 ml/min/1.73m2 [facility] Specimen Blood specimen (specimen) Performing Organization Address City/[facility]/ZIP Code Phon e Number [facility] [address] [place] [address] SERVICES [facility] [address] [place] [address] (ABNORMAL) BUN (01/10/2011 15:21 EDT) Pathologist Sig nature BUN 6 (L) 10 - 26 mg/dl [facility] Specimen Blood specimen (specimen) Performing Organization Address City/State/ZIP Code Phon e Number [facility] [address] [place] [address] SERVICES [facility] [address] [place] [address] SCREENING GLUCOSE (01/10/2011 15:21 EDT) Pathologist Sig nature Glucose, Screening 88 70 - 100 mg/dl [facility] Specimen Blood specimen (specimen) Performing Organization Address City/[facility]/ZIP Code Phon e Number [facility] [address] [place] [address] SERVICES [facility] [address] [place] [address] ELECTROLYTES (01/10/2011 15:21 EDT) Pathologist Sig nature Sodium 139 136 - 145 mEq/L [facility] Potassium 4.1 3.5 - 5.0 mEq/L [facility] Chloride 102 96 - 110 mEq/L [facility] CO2 28 24 - 32 mEq/L [facility] Specimen Blood specimen (specimen) Performing Organization Address City/State/ZIP Code Phon e Number [facility] [address] [place] [address] SERVICES [facility] [address] [place] [address] ACUTE ABDOMEN SERIES (01/10/2011 15:12 EDT) Anatomical Region Laterality Modality Other Specimen Narrative [facility] - 01/10/2011 18:40 EDT ACUTE ABDOMEN SERIES ??Jan 10, 2011 03:12:00 PM Signs and Symptoms/Comments: ??Abd pain Comparison: None available Findings: PA view of the chest was obtained and de monstrates a normal cardiomediastinal silhouette. The lungs are well-aerated and clear. There is no intra-abdominal free air. Two views of the abdomen demonstrate air throughout the small and large bowel with no dilated loops. There is stool throughout the colon with gas and stool overlying the r ectal vault. No organomegaly is present. Scoliosis is present, incomp letely evaluated. Impression: Normal acute abdominal series. Scoliosis . I have personally reviewed the images an d the above interpretation and agree with the findings. Procedure Note Primo Coley MD - 01/10/2011 ACUTE ABDOMEN SERIES Jan 10, 2011 03:12: 00 PM Signs and Symptoms/Comments: Abd pain Comparison: None available Findings: PA view of the chest was obtained and de monstrates a normal cardiomediastinal silhouette. The lungs are well-aerated and clear. There is no intra-abdominal free air. Two views of the abdomen demonstrate air throughout the small and large bowel with no dilated loops. There is stool throughout the colon with gas and stool overlying the r ectal vault. No organomegaly is present. Scoliosis is present, incomp letely evaluated. Impression: Normal acute abdominal series. Scoliosis . I have personally reviewed the images an d the above interpretation and agree with the findings. Performing Organization Address City/State/ZIP Code Phon e Number [facility] documented in this encounter Visit Diagnoses Diagnosis Abdominal pain Abdominal pain, unspecified site documented in this encounter Care Teams Substance Abuse Technician Relationship Specialty Start Date End Date Mandy Beck DO PCP - General 11/07/10 03/20/12 [address] [place] [address] documented as of this encounter
--- OUTSIDE RECORDS SUMMARY | 2021-08-16 23:34 | XMS_ITS | Encounter Summary ---
:1990 Author Organization [facility] Address [address] [place] [address] Care Team Providers Name Role Phone Monica Argueta MD Primary Care Provider [phone] Encounter Details Date Type Department Care Team Description 09/13/2010 Hospital Encounter [facility] - Amador Argueta cia [facility] MD Kade [address] [facility] [address] [place] [address] [facility] [place] [phone] [place] [address] [phone] (Wo rk) Social History Tobacco Use Types [...] Code Departure Means Destination Home or Self Shelter documented in this encounter Plan of Treatment Not on filedocumented as of this encounter Procedures Procedure Name Priority Date/Time Associated Diagnosis Comme nts SKULL 1 TO 3 VIEWS 09/13/2010 11:53 Resul ts for this EDT procedure are i n the results section. documented in this encounter Results SKULL 1 TO 3 VIEWS (09/13/2010 11:53 EDT) Anatomical Region Laterality Modality Other Specimen Narrative [facility] - 09/13/2010 12:00 EDT SKULL 1 TO 3 VIEWS ??Sep 13, 2010 11:53:00 AM Clinical History/Comments: ??had head in jury 6 years ago ? nail in head. Question findings: AP and lateral view of the skull obtained. The bones are well mineralized. No focal bony abnormality. No radiopaque foreign bodies. Soft tissues are unremarkable. Impression: 1. Normal x-ray of the skull. 2. No radiopaque foreign body. Procedure Note 09/13/2010 SKULL 1 TO 3 VIEWS Sep 13, 2010 11:53:00 AM Clinical History/Comments: had head inju ry 6 years ago ? nail in head. Question findings: AP and lateral view of the skull obtained. The bones are well mineralized. No focal bony abnormality. No radiopaque foreign bodies. Soft tissues are unremarkable. Impression: 1. Normal x-ray of the skull. 2. No radiopaque foreign body. Performing Organization Address City/State/ZIP Code Phon e Number [facility] documented in this encounter Visit Diagnoses Not on filedocumented in this encounter Care Teams Concentrator Operator Relationship Specialty Start Date End Date Monica Argueta MD PCP - General 04/24/10 11/06/10 documented as of this encounter
--- OUTSIDE RECORDS SUMMARY | 2021-08-16 23:34 | XMS_ITS | Encounter Summary ---
:1990 Author Organization [facility] Address [address] [place] [address] Care Team Providers Name Role Phone None, Provider Primary Care Provider Unavailable Encounter Details Date Type Department Care Team Description 03/31/2012 Documentation Visit [facility] Fabi Shin Obstetrics & MD [facility] - [address], [address], [address] [place], [place] [id number] [place] [address] [phone] [id number] (Wo rk) Social History Tobacco Use [...] as of this encounter Progress Notes Loretta Harding - 03/31/2012 1510 EST Documented for consult jag 03/31 documented in this encounter Plan of Treatment Not on filedocumented as of this encounter Visit Diagnoses Not on filedocumented in this encounter Care Teams Hand Winder Relationship Specialty Start Date End Date None, Provider PCP - General 03/21/12 03/31/12 documented as of this encounter
--- OUTSIDE RECORDS SUMMARY | 2021-08-16 23:34 | XMS_ITS | Encounter Summary ---
:1990 Author Organization [facility] Address [address] [place] [address] Care Team Providers Name Role Phone Monica Argueta MD Primary Care Provider [phone] Encounter Details Date Type Department Care Team Description 10/23/2010 Phlebotomy Only [facility] - Efficiency Expert, [facility] Outpatient [address] [place], [place] [address] [phone] Social History Tobacco Use Types Packs/Day Years [...] on filedocumented in this encounter Care Teams Tooling Manager Relationship Specialty Start Date End Date Monica Argueta MD PCP - General 04/24/10 documented as of this encounter
--- OUTSIDE RECORDS SUMMARY | 2021-08-16 23:34 | XMS_ITS | Encounter Summary ---
:1990 Author Organization [facility] Address [address] [place] [address] Care Team Providers Name Role Phone Monica Argueta MD Primary Care Provider [phone] Encounter Details Date Type Department Care Team Description 10/29/2010 Abstract [facility] Ephraim Castaneda MD Infectious Disease - [address], [address] [place] [address] [address] [place], [place] [id number] [place] [id number] [phone] (Wo rk) Social History Tobacco Use Types [...] on filedocumented in this encounter Care Teams Gleason Operator Relationship Specialty Start Date End Date Monica Argueta MD PCP - General 04/24/10 11/06/10 documented as of this encounter
--- OUTSIDE RECORDS SUMMARY | 2021-08-16 23:34 | XMS_ITS | Encounter Summary ---
:1990 Author Organization [facility] Address [address] [place] [address] Care Team Providers Name Role Phone Mandy Beck DO Primary Care Provider Encounter Details Date Type Department Care Team Description 03/23/2011 Results Only [facility] Mandy Beck, Laboratory Services - [id number] [place] [id number] [phone] Social History Tobacco Use Types Packs/Day Years [...] Name Priority Date/Time Associated Diagnosis Comme nts BACTERIAL CULTURE, Routine 03/23/2011 17:38 Resul ts for this OTHER EST procedure are i n the results section. documented in this encounter Results BACTERIAL CULTURE, OTHER (03/23/2011 17:38 EST) Specimen Vagina Specimen [facility] Description submitted on a swab LAB Result No group A Streptococcus, gr oup B Streptococcus, Staphylococcus coagulase positive, Neisseria [facility] gonorrhoeae, Listeria monocytogenes, or yeast isolated . LAB Report Status 03/25/2011 Final [facility] Specimen Vagina Performing Organization Address City/State/ZIP Code Phon e Number [facility] [address] [place] [address] SERVICES [facility] [address] [place] [address] documented in this encounter Visit Diagnoses Not on filedocumented in this encounter Care Teams Supervisor [employer] Relationship Specialty Start Date End Date Mandy Beck DO PCP - General 11/07/10 03/20/12 [place] [address] documented as of this encounter
--- OUTSIDE RECORDS SUMMARY | 2021-08-16 23:34 | XMS_ITS | Encounter Summary ---
:1990 Author Organization [facility] Address [address] [place] [address] Care Team Providers Name Role Phone Noe Kurtz MD Primary Care Provider Reason for Visit Reason Comments Other transfer of care vs consulta tion Encounter Details Date Type Department Care Team Description 04/05/2012 Initial consult [facility] Fabi Shin Obstetrics & MD [facility] Midwifery - [address] ([facility] (Primary [address] Dx) [address] [place], [place] Pavilion, Level [id number] [place] [address] [phone] Social History Tobacco Use Types Packs/Day Years Used Date Current Some Day Smoker 0.25 9 Smokeless Tobacco: Never Used Comments: occasional Alcohol Use Standard Drinks/Week Comments No 0 (1 standard drink = 0.6 oz pure alcoho l) occ Sex Assigned at Date Recorded Not on file documented as of this encounter Last Filed Vital Signs Vital Sign Reading Time Taken Comments Blood Pressure 90/50 04/05/2012 1400 EST Pulse - - Temperature - - Respiratory Rate - - Oxygen Saturation - - Inhaled Oxygen Concentration - - Weight 109.3 kg (241 lb) 04/05/2012 1400 EST Height 165.1 cm (5' 5) 04/05/2012 1400 EST Body Mass Index 40.1 04/05/2012 1400 EST documented in this encounter Functional Status Cognitive Status Response Date of Assessment Because of a physical, mental, or emotional condition, do Ye s 09/04/2011 you have serious difficulty concentrating, remembering, or making decisions? (5 years old or older) documented as of this encounter Progress Notes Sandy Villatoro (Att)MD - 04/05/[address] Kurtz: Thank you for asking us to see your patient, Mary Grace Harris, at the [facility] at [facility]. As you know, she is a 21-year-old 1, para 0 female with an intrauterine at 23 weeks 6 days gestation with dating by a 9-week ultrasound. Her estimated date of delivery is 07/27/2012. She was seen today in consultation regarding maternal schizophrenia, currently treated with olanzapine. Her pertinent past medical history is as follows: 1. Schizophrenia: Ms Harris reports that she has had symptoms of anxiety most of her life. She prior to was treated with lorazepam as needed and felt that this was very effective in treating her anxiety. She reports, however, in the fall of last year that she began to experience auditory hallucinations. She reports that she was able to hear the thoughts of the people around her. She reports that she acted upon these hallucinations and had several encounters with physicians and people she describes as strangers around her when she began reciting their thoughts to them. She reports that prior to the onset of her auditory hallucinations, she was treated at the [facility] by a psychiatrist there; however, she had not seen him recently. She was hospitalized for 3 weeks in November 2011, and at this time reports she was given a diagnosis of schizophrenia and started on olanzapine. She wasthereafter followed by Dr Merrill, a psychiatrist near [facility]. She reports that the olanzapine did initially help her symptoms some, however, feels that her symptoms are only partially treated. Shecontinues to hear the thoughts of those around her, however, can still function, albeit at a lower level than previously. Her main complaints with the olanzapine is that she feels that it has increasedher appetite, which has precipitated a drastic weight gain over the last 6 months. She reports that prior to beginning the medication she weighed 160 pounds, and today she weighs 240 pounds at this appointment. She currently endorses continued auditory hallucinations with occasional visual hallucinations of seeing spots or lights. 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 She recently relocated to [place] after losing the lease on her prior apartment and is now living with her grandmother in [place], where she plans to stay for the duration of . She has not yet established care with a psychiatristnear [place]. She reports she takes 10 mg of Zyprexa in the morning and 20 mg at night. Notably, she has not taken any other psychiatric medications or narcotics in since finding out she was . 2. Chronic pain: Ms Harris reports that she has chronic neck, shoulder and back pain, which she attributes to a history of fibromyalgia, sciatica, tendinitis, torticollis, and scoliosis. She reports that her pain has been present since high school. She reports she was an active participant in football in high school and sustained repeated injuries, which resulted in her current pain. Prior to , this pain was treated with hydromorphone and lorazepam. She has also tried physical therapy with minimal success. She discontinued her hydromorphone with . Past Surgical History: Repair of left 5th phalanx after a severe laceration. Medications: Zyprexa 10 mg q.a.m., 20 mg at bedtime. vitamin. HALDOL causes extrapyramidal symptoms. PAXIL causes nausea and vomiting. Social History: The patient currently lives with the father of the baby and her grandparents in [place]. She reports she is a high-school graduate and has gone to 3 years of college, studying business. She took this year off due to her psychiatric diagnoses and current . 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 She did smoke about a half-pack per day of cigarettes prior to and has drastically reduced this to only several puffs per day currently. She denies any history of alcohol or drug use. She has never had a blood transfusion. Family History: Positive for multiple family members with schizophrenia. Her mother has battled schizophrenia during her entire adult life and has lived in a jail in [place] for several decades. The patient's father has also been hospitalized in the mental health system; however, the patient has no contact with her father. The patient was raised by her grandmother, who accompanies her to clinic today. She denies any other family history of major medical illnesses and denies any family history of problems including recurrent miscarriage, spontaneous , venous thromboembolism, or congenital malformations. She reports that has been uncomplicated to date. She did have her routine obstetric ultrasound at [facility] at 16 weeks, and upon review, this was notable for an echogenic intracardiac focus and eccentric placental cord insert, however, was otherwise normal. The patient reports she recently underwent early glucose tolerance testing after establishing care with a family practice physician in [place], and this result was 123 mg/dL on 03/29. She thinks this she has gained about 60 pounds. She thinks she has gained approximately 60 pounds this . Blood pressure 90/50, weight 241 pounds. Summary and Recommendations: 1. Schizophrenia, on olanzapine: We discussed with Ms Harris and her grandmother today the treatment of schizophrenia spectrum disorders in . We discussed that of utmost importance is managing Ms Harris' symptoms so that she can remain safe in order to care for her and child. Ms Harrisreports that she does feel safe currently and that although her symptom control sounds suboptimal, her grandmother describes her as being much improved on her current dose of medication. We discussed today that overall the data for atypical antipsychotic use in is rather minimal. However, based on the data that we do have, we see no increased evidence for defects or other complications in patients who take atypical antipsychotics during . The largest case series juan prospective study of 23 cases, which showed rates of spontaneous abortions, stillbirths, prematurity, and major malformation which were within the normal range. Notably, there have been reports of withdrawal in patients on atypical antipsychotic medication; however, these reports are quite rare, and in more recent reviews this complication was not encountered. Certainly, we would recommendcontinuing the atypical antipsychotic to best treat Ms Harris' symptoms with close monitoring of the baby in the first several days of life for symptoms of irritability; however, this is minimal risk. We also discussed the issue of today. The [place] [employer] has not commented on the safety of olanzapine in ; however, from available studies, we see very small amounts, perhaps 1% to 2%, of this medication that is excreted into breast milk. There are some reports of infants who become lethargic after exposure; however, no other reports of serious adverse short-term outcomes. Of course, long-term data is again scarce. Given the significant likelihood of exacerbation of schizophrenic disorders in the period, we would recommend continuing olanzapine use through the period and weigh the risks vs benefits of . Notably, risks of weight gain and associated metabolic syndrome have been well reported in association with olanzapine use. This is particularly appropriate to discuss in this patient as she has had very significant weight gain on her olanzapine. We agree with obtaining the early glucose tolerance test, and this result was normal; however, we would recommend repeating this again at 28 weeks. We discussed today that Ms Harris would likely benefit from nutrition consultation in order to optimize her dietary habits and physical activity, with a goal of limiting additional weight gain in . Given that she has had substantial weight gain, we would also recommend a detailed ultrasound to be performed here at our diagnostic center and at least 1 followup growth ultrasound in the third trimester, pending the results of her detailed ultrasound. 2. Chronic pain: Ms Harris reports that her pain and anxiety seem to be under adequate control currently. She would like to avoid reinitiating her benzodiazepines and narcotics if possible. We agree that this would be the best course of action. 3. Finally, today we discussed care for the remainder of the . Certainly, the most important aspect of Ms Harris' care will be helping her to establish care with a psychiatrist near [place]. If her new psychiatrist deems that another atypical antipsychotic may manage her symptoms more appropriately without the symptoms of weight gain, we would be happy to comment on safety of other antipsychotic medications in . Please do not hesitate to contact us if you have further questions regarding her care. We did discuss today that it would be very appropriate for her to continue her care through your clinic; however, we would be happy to see her again as progresses. It would be reasonable to obtain further consultation with our [facility] med medicare specialist in the third trimester, who can further discuss risks of withdrawal and a plan for monitoring for the baby in the first few days after . This patient was seen and discussed with attending physician, Dr Fabi Shin. Sincerely, Schizophrenia, on zyprexa, needs to establish care with psychiatry Continue zyprexa Detailed US, f/u growth in 3rd tri Nutrition consult, repeat 1hr gtt at 28 weeks, limit weight gain neomed consult in third tri F/u prn ADDENDUM: Ms Harris was seen and discussed with Dr Villatoro at the time of her visit. I agree with the above assessment and plan of care. Briefly, we reviewed the use of Zyprexa during , certainly weighing risks versus benefits of exposure to medication. Ms Harris, it seems, does benefit significantly from being on her Zyprexa and, given the fact that she is already 24 weeks gestation, I would recommend continuation of this medication; however, we did discuss risks associated with use. Firstly,there does not appear to be any association with congenital anomalies; however, use in the third trimester has been associated with potential poor growth, as well as potential for withdrawal. Therefore, if she is to continue the use of the Zyprexa, I would recommend a growth ultrasound in the third trimester. I would also recommend a consultation with Dr Scarlet Washburn from neonatology to discuss withdrawal symptoms and how that is managed. In terms of breast feeding, there is evidence that olanzapine crosses the placenta. There is [facility] data on its use with breast feeding and potential for toxicity. In general there do not appearto be short term adverse affects but snf data is not available. It is generally recommended that risks versus benefits be weighed with the use of Zyprexa and breast feeding. Again consultation with neonatalogy prior to delivery could be beneficial to set up a plan to monitor the . As mentioned above, certainly Ms Harris need to establish psychiatric care in the community here bothfor management of her schizophrenia during , as well as outside of . If her psychiatrist decides to discontinue the Zyprexa in favor of another medication, we are happy to weigh in onthe safety of that medication in and , but the main goal should be to treat the maternal disease to optimize outcome. Thank you again for referring her to us for consultation. We would be happy to answer any additionalquestions you may have. Approximately 20 minutes was spent with the patient, with the entire 20 minutes spent discussing the above. Sincerely, Scarlet Freire RN - 04/05/2012 1440 EST Occasional cramping, good movement. Denies leaking or bleeding from vagina. Here for DAVID, vs consultation. documented in this encounter Plan of Treatment Not on filedocumented as of this encounter Visit Diagnoses Diagnosis Paranoid schizophrenia ([facility] (HCC) - Primary Paranoid schizophrenia, unspecified cond ition documented in this encounter Discontinued Medications Medication Sig Discontinue Reason Start Date End Date folic acid (FOLVITE) 1 Take 1 mg by Patient Stopped Taking 04/05/2012 mg tablet mouth daily. documented as of this encounter Care Teams Car Lot Attendant Relationship Specialty Start Date End Date Noe Kurtz MD PCP - General 04/01/12 documented as of this encounter
--- OUTSIDE RECORDS SUMMARY | 2021-08-16 23:34 | XMS_ITS | Encounter Summary ---
:1990 Author Organization [facility] Address [address] [place] [address] Care Team Providers Name Role Phone None, Provider Primary Care Provider Unavailable Reason for Visit Reason Comments Labs Only here for gestational 1hr. GT T Encounter Details Date Type Department Care Team Description 03/29/2012 Nurse Only [facility] Unknown, Prov MD alexey Supervision of normal first (P rimary Dx); Family Medicine - Jessica Navarro MD [address] [facility], [address] [place] [address] Need for Tdap vaccination [place] Nurse, [facility] Benjy Kennedy, RHODA [address] [place] [address] Social History Tobacco Use Types [...] Discharge documented in this encounter Progress Notes Inga Chicas LPN - 03/29/2012 1239 EST Venipuncture performed for 1hr gtt, cbc Per orders of Hellen Lo MD Diagnosis of v22.0 Alysha Guzman LPN - 03/29/2012 1102 EST At 1045am, patient was given 50gm of glucola to drink and finished it. [facility] documented in this encounter Plan of Treatment Not on filedocumented as of this encounter Procedures Procedure Name Priority Date/Time Associated Diagnosis Comme nts COMPLETE BLOOD COUNT Routine 03/29/2012 12:59 Supervision of R esults for this EST normal first procedure are i n the results section. GLUCOSE CARRI, DOSE Routine 03/29/2012 10:40 Result s for this EST procedure are i n the results section. GLUCOSE-1HR Routine 03/29/2012 10:40 Supervision of GESTATIONAL SCREEN EST normal first GLUCOSE-1HR Routine 03/29/2012 10:40 Results for this GESTATIONAL SCREEN EST procedure are in the results section. documented in this encounter Results HEMAGRAM (03/29/2012 12:59 EST) Pathologist Sig nature WBC 11.13 4.0 - 12.4 K/cmm [facility] RBC 4.00 3.86 - 5.04 M/cmm [facility] Hemoglobin 12.2 11.6 - 15.2 gm/dl [facility] HCT 35.3 34.9 - 44.4 % [facility] MCV 88 81 - 98 fl [facility] MCH 30.5 26.7 - 33.3 pg [facility] MCHC 34.5 32.1 - 35.9 gm/dl [facility] PLT 205 141 - 320 K/cmm [facility] RDW-CV 12.7 11.7 - 14.6 % [facility] Specimen Blood specimen (specimen) Performing Organization Address City/State/ZIP Code Phon e Number [facility] [address] [place] [phone] SERVICES [facility] [address] [place] [address] GLUCOSE-1HR GESTATIONAL SCREEN (03/29/2012 10:40 EST) Glucose-1hr Gest 123 50 - 135 [facility] Scn Comment: mg/dl LAB A one hour glucose greater than or equal to 135 mg/dl should be further evaluated with a formal three hour glucose tolerance test. Specimen Performing Organization Address City/State/ZIP [facility] Phon e Number [facility] [address] [place] [address] SERVICES [facility] [address] [place] [address] GLUCOSE CARRI, DOSE (03/29/2012 10:40 EST) Pathologist Sig nature Glucose Dose Not Given g [facility] Specimen Performing Organization Address City/[facility] Phon e Number [facility] [address] [place] [address] SERVICES [facility] [address] [place] [address] documented in this encounter Visit Diagnoses Diagnosis Supervision of normal first - Primary Need for Tdap vaccination Need for prophylactic vaccination with c ombined roqehgobcx-zjhqjrw-lykbqczwm (DTP) vaccine documented in this encounter Care Teams Division Controller Relationship Specialty Start Date End Date None, Provider PCP - General 03/21/12 03/31/12 documented as of this encounter
--- OUTSIDE RECORDS SUMMARY | 2021-08-16 23:34 | XMS_ITS | Encounter Summary ---
:1990 Author Organization [facility] Address [address] [place] [address] Care Team Providers Name Role Phone Monica Argueta MD Primary Care Provider Encounter Details Date Type Department Care Team Description 09/29/2010 Results Only Imaging [facility]- AbdoulKimMandy Sanders , DO PRISM [phone] Social History Tobacco Use Types Packs/Day Years [...] Name Priority Date/Time Associated Diagnosis Comme nts RAD US NECK/THYROID 10/06/2010 9:45 EDT R esults for this procedure are i n the results section. documented in this encounter Results RAD US NECK/THYROID (10/06/2010 9:45 EDT) Anatomical Region Laterality Modality Other Specimen Narrative [facility] - 10/06/2010 11:03 EDT Neck ultrasound October 06, 2010 History: Persistent painful cervical and axillary lymphadenopathy Grayscale and color Doppler images were obtained of the neck and axillary regions bilaterally. There are numerous lymph nodes in the neck bilaterally, perhaps more numerous than normally seen. None of these are pathologically enlarged by ult rasound criterion. The largest node on the right measures 1.4 x 0.7 cm. The largest node on the left measures 1.3 x 0.6 cm. No enlar ged axillary lymph nodes are identified. Impression: Numerous cervical lymph node s bilaterally, none are pathologically enlarged by ultrasound cr iterion. Procedure Note 10/06/2010 Neck ultrasound October 06, 2010 History: Persistent painful cervical and axillary lymphadenopathy Grayscale and color Doppler images were obtained of the neck and axillary regions bilaterally. There are numerous lymph nodes in the neck bilaterally, perhaps more numerous than normally seen. None of these are pathologically enlarged by ult rasound criterion. The largest node on the right measures 1.4 x 0.7 cm. The largest node on the left measures 1.3 x 0.6 cm. No enlar ged axillary lymph nodes are identified. Impression: Numerous cervical lymph node s bilaterally, none are pathologically enlarged by ultrasound cr iterion. Performing Organization Address City/State/ZIP Code Phon e Number [facility] documented in this encounter Visit Diagnoses Not on filedocumented in this encounter Care Teams Survey Party Chief Relationship Specialty Start Date End Date Monica Argueta MD PCP - General 04/24/10 11/06/10 documented as of this encounter
--- OUTSIDE RECORDS SUMMARY | 2021-08-16 23:34 | XMS_ITS | Encounter Summary ---
:1990 Author Organization [facility] Address [address] [place] [address] Care Team Providers Name Role Phone None, Provider Primary Care Provider Unavailable Reason for Visit Reason Onset Date Comments Appointment Related 03/24/2012 Encounter Details Date Type Department Care Team Description 03/24/2012 Telephone [facility] Sheryl Yusuf, RN Appoi ntment Related Obstetrics & Midwifery - [facility] [address] [place] [address] Social History Tobacco Use Types [...] this encounter Miscellaneous Notes Telephone Encounter - Sheryl Yusuf - 03/24/2012 1424 EST Called Celine at [facility] with appt. For Mary Grace. documented in this encounter Plan of Treatment Not on filedocumented as of this encounter Visit Diagnoses Not on filedocumented in this encounter Care Teams Flash Oven Operator Relationship Specialty Start Date End Date None, Provider PCP - General 03/21/12 03/31/12 documented as of this encounter
--- OUTSIDE RECORDS SUMMARY | 2021-08-16 23:34 | XMS_ITS | Encounter Summary ---
:1990 Author Organization [facility] Address [address] [place] [address] Care Team Providers Name Role Phone Mandy Beck DO Primary Care Provider Encounter Details Date Type Department Care Team Description 04/13/[address] [facility]- Mandy Beck DO [phone] [place] [address] 83 (Wo rk) Social History Tobacco Use Types [...] Date/Time Associated Diagnosis Comme nts RAD US GROIN 04/24/2011 13:21 Results for this ABDOMEN EST procedure are i n the results section. documented in this encounter Results RAD US GROIN ABDOMEN (04/24/2011 13:21 EST) Anatomical Region Laterality Modality Other Specimen Narrative [facility] - 05/04/2011 13:52 EST RAD US GROIN ABDOMEN ??Apr 24, 2011 01:21:00 PM Signs and Symptoms/Comments: ??left groi n pain ro abnormality . This is a delayed dictation. The origina l dictation was apparently lost. Sonographic evaluation of the left ingui nal region shows no mass lymphadenopathy, or other abnormality. E valuation with and without Valsalva maneuver shows no evidence of a hernia. Impression: Negative examination Procedure Note 05/04/2011 RAD US GROIN ABDOMEN Apr 24, 2011 01:21: 00 PM Signs and Symptoms/Comments: left groin pain ro abnormality . This is a delayed dictation. The origina l dictation was apparently lost. Sonographic evaluation of the left ingui nal region shows no mass lymphadenopathy, or other abnormality. E valuation with and without Valsalva maneuver shows no evidence of a hernia. Impression: Negative examination Performing Organization Address City/State/ZIP Code Phon e Number [facility] documented in this encounter Visit Diagnoses Not on filedocumented in this encounter Care Teams Amphibious Operations Officer Relationship Specialty Start Date End Date Mandy Beck DO PCP - General 11/07/10 03/20/[address] [place] [address] [place] [address] documented as of this encounter
--- OUTSIDE RECORDS SUMMARY | 2021-08-16 23:34 | XMS_ITS | Encounter Summary ---
:1990 Author Organization [facility] Address [address] [place] [address] Care Team Providers Name Role Phone AbdoulMandy Reis Primary Care Provider Encounter Details Date Type Department Care Team Description 12/24/2011 Results Only [facility]- Rae Abraham, [facility] [address] [place] [address] Social History Tobacco Use Types Packs/Day Years [...] Diagnosis Comme nts PAP TEST- RESULT Routine 12/24/2011 0:00 EDT Resu lts for this ONLY procedure are i n the results section. documented in this encounter Results PAP TEST- RESULT ONLY (12/24/2011 0:00 EDT) Pathology Report: CYTOPATHOLOGY REPORT [facility] Reports generated via electronic interface contain jason ginal data; however they are lacking the format of the original re port. Caution should be taken when reading/interpreting unfo rmatted reports. Name: ? YASMANY EUBANKS ? Accession #: ? [id number] : ? 1990 (Age: 21) ??F ?Collect Date: ? 12/06 Location: ? [facility] ? Receive Date : ? 12/25/2011 Provider: ?RAE CASTELLANO CNM Copy to: ? Specimen/Source: ? Pap Test, Cervix/Endocervix, ThinPrep Imaging System with manual evaluation Last Menstrual Period: ? September 2011 Menstrual/ Status: ? SPECIMEN ADEQUACY ? Satisfactory for Evaluation - transformation zone component present GENERAL CATEGORIZATION ? Negative for Intraepithelial Lesion or Malignan cy ? Document reviewed and electronically signed by: ? YVAN Meadows(ASCP) ? Report Date: ??12/30/2011 11:46 End of Report Specimen Performing Organization Address City/State/ZIP Code Phon e Number [facility] [address] [place] [address] [facility] [address] [place] [address] documented in this encounter Visit Diagnoses Not on filedocumented in this encounter Care Teams Bus And Sys Integration Senior Manager Relationship Specialty Start Date End Date Mandy Beck DO PCP - General 11/07/10 03/20/[address] [place] [address] documented as of this encounter
--- OUTSIDE RECORDS SUMMARY | 2021-08-16 23:34 | XMS_ITS | Encounter Summary ---
:1990 Author Organization [facility] Address [address] [place] [address] Care Team Providers Name Role Phone Alisa Beck DO Primary Care Provider Encounter Details Date Type Department Care Team Description 11/07/2010 Results Only [facility] Brayan Jose, [address] [facility] [place] [address] [place] [address] [address] [place] [address] (Wo rk) Social History Tobacco [...] Procedure Name Priority Date/Time Associated Diagnosis Comme [facility] SURGICAL PATHOLOGY Routine 11/07/2010 0:00 EDT Re sults for this procedure are i n the results section. documented in this encounter Results SURGICAL PATHOLOGY (11/07/2010 0:00 EDT) Pathology SURGICAL PATHOLOGY REPORT ? [facility] Report: Reports generated via [employer] interface contain original data; ? LAB however they are lacking the format of the original report. ? Caution should be taken when reading/interpreting unformatted reports. ? Name: ? STEVEN, MARY GRACE ? Accession #: ? [id number] ? : ? 1990 (Age: 19) ??F ? Collec t Date: ? 11/07/2010 ? Location: ? ENDO ? R eceive Date: ? 11/07/2010 ? Provider: BRAYAN S JEAN MD ? Copy to: ALISA ADRIANNE DO ? Final Pathologic Diagnosis: ? A. ?Duodenum, r andom, biopsies: ? 1. ?Duodenal mu cosa with a slight, patchy increase in intraepithelial ?? lymphocytes. ??See comment. ? B. ?Stomach, an trum, erosions, biopsies: ? 1. ?Antral-type gastric mucosa with intestinal metaplasia and mild ? chronic gastritis. ? 2. ? Immunostaining for Helicobacter pylori is negative. ??See comment. ? C. ?Esophagus, random, biopsies: ? 1. ?Squamous mu cosa with rare intraepithelial eosinophils (less than 5 ?? per high power field), consi stent with reflux esophagitis. ? Comment: ? Histological examinat ion of the duodenal biopsies (specimen A) demonstrates a minimal, patchy increase i n intraepithelial lymphocytes. No overt blunting is apparent. Clinical correlati on is essential. Immunohistochemical staining was ?? performed on this case to fu rther characterize the inflammation seen in specimen B. ??Positive and negative c ontrols stained appropriately. [employer] ? sections of this case have b een reviewed at intradepartmental consultation ? conference. ??(Dr. Jeanette perez)/emy ? Block ?Antibody (Clone) ? Result ? B ?H. py mckay (polyclonal, [facility]) ? Negative ? NOTE: ??One or more of the reagents used in immunohistochemical testing in this case may not have been clear ed or approved by the U.S. Food and Drug ? Administration (FDA). ??The FDA has determined that such clearance or approval is not necessary. ??These tests are used for clinical purposes. ??They should not be regarded as investigational or for research. ??These reagents' ??performance ? characteristics have been de termined by [facility]. ??This ? laboratory is certified unde r the Clinical Laboratory Improvement Amendments of 1988 (CLIA-88) as qualified to perform high complexity clinical laboratory ? testing. ? Document reviewed and electr onically signed by: ? CHUCK AGUIRRE MD ? Report ??Date: 11/12/2010 14 :45 ? By the signature above, the attending physician certifies that he/she has ? personally conducted a gross and/or microscopic examination of the described ? specimens and rendered or co nfirmed the above diagnosis. ? Specimen(s) Received: ? A. ?Random duod enum ? B. ? Antral erosions ? C. ? Random esophagus ? Clinical History: ? Vomiting, borderline celiac serology; GERD ? Gross Description: ? Received in formalin labelled Harris, Mary Grace and biopsy duodenum are ?? six pink-parisi irregular soft tissues ranging from 0.1 x 0.1 x 0.1 cm to 0.6 x 0.2 x 0.1 cm, submitted in toto in (A1) and (A2). ? Received in formalin shawn d Steven, Mary Grace and biopsy antrum are two ? pink-parisi irregular soft tiss ues, 0.1 x 0.1 x 0.1 cm and 0.3 x 0.2 x 0.1 cm, ? submitted in toto in (B). ? Received in formalin shawn d Steven, Mary Grace and biopsy esophagus are six ?? parisi-white irregular soft tis sues ranging from 0.1 x 0.1 x 0.1 cm to 0.5 x 0.1 x 0.1 cm, submitted in toto in (C1) and (C2). ??(Sarika Whitman)/mpl ? End of Report ? Specimen Performing Organization Address City/State/[facility] Code Phon e Number [facility] [address] [place] [address] SERVICES [facility] [address] [place] [address] documented in this encounter Visit Diagnoses Not on filedocumented in this encounter Care Teams Concrete Handler Relationship Specialty Start Date End Date Alisa Beck DO PCP - General 11/07/10 03/20/[address] [place] [place] [address] documented as of this encounter
--- OUTSIDE RECORDS SUMMARY | 2021-08-16 23:34 | XMS_ITS | Encounter Summary ---
:1990 Author Organization [facility] Address [address] [place] [address] Care Team Providers Name Role Phone Monica Argueta MD Primary Care Provider [phone] Encounter Details Date Type Department Care Team Description 09/30/2010 Hospital Encounter [facility] [address] [place], [place] [id number] [place] [phone] (Wo rk) Social History Tobacco Use Types [...] Code Departure Means Destination Home or Self Intermediate documented in this encounter Plan of Treatment Not on filedocumented as of this encounter Visit Diagnoses Not on filedocumented in this encounter Care Teams Sld Inclusion Teacher Relationship Specialty Start Date End Date Monica Argueta MD PCP - General 04/24/10 documented as of this encounter
--- OUTSIDE RECORDS SUMMARY | 2021-08-16 23:34 | XMS_ITS | Encounter Summary ---
:1990 Author Organization [facility] Address [address] [place] [address] Care Team Providers Name Role Phone Mandy Beck DO Primary Care Provider Encounter Details Date Type Department Care Team Description 03/20/2011 Hospital Encounter [facility] - Oscar Duarte DO 1 [facility] [address] [place], [place] [id number] [place] [phone] (Wo rk) Social History Tobacco Use Types [...] on filedocumented in this encounter Care Teams Wool Dyer Relationship Specialty Start Date End Date Mandy Beck DO PCP - General 11/07/10 03/20/[address] [place] [address] documented as of this encounter
--- OUTSIDE RECORDS SUMMARY | 2021-08-16 23:34 | XMS_ITS | Encounter Summary ---
:1990 Author Organization [facility] Address [address] [place] [address] Care Team Providers Name Role Phone JihanMarilyn Brii DO Primary Care Provider Encounter Details Date Type Department Care Team Description 01/28/2011 Hospital Encounter [facility] MD Liz [address] [address] [address] [place] [phone] (Wo rk) Social History Tobacco Use Types [...] Code Departure Means Destination Home or Self [facility]pc documented in this encounter Plan of Treatment Not on filedocumented as of this encounter Visit Diagnoses Not on filedocumented in this encounter Care Teams Director Special Education Relationship Specialty Start Date End Date Mandy Beck DO PCP - General 11/07/10 03/20/[address] [place] [address] documented as of this encounter
--- OUTSIDE RECORDS SUMMARY | 2021-08-16 23:34 | XMS_ITS | Encounter Summary ---
:1990 Author Organization [facility] Address [address] [place] [address] Care Team Providers Name Role Phone Monica Aranda MD Primary Care Provider [phone] Reason for Visit Reason Comments Other Weakness Encounter Details Date Type Department Care Team Description 10/05/2010 Emergency [facility] Sue Parekh MD [address] [place], [place] [address] Tingling; Emergency Department Emergency, MD Chel[place] Abdominal pain, chronic, generalized; - Main [place] Pain in the chest; [address] [facility] Excoriation; [place] [address] Anxiety attack; [phone] Blood in stool Social History Tobacco Use Types Packs/Day Years [...] Sign Reading Time Taken Comments Blood Pressure 145/90 10/05/20102039 EDT Pulse 136 10/05/20102039 EDT Temperature 36.8 ??C (98.2 ??F) 10/05/20102039 EDT Respiratory Rate 16 10/05/20102039 EDT Oxygen Saturation 100% 10/05/20102039 EDT Inhaled Oxygen Concentration - - Weight - - Height - - Body Mass Index - - documented in this encounter Discharge Instructions InstructionsTraTad choi MD - 10/05/2010 Follow up with your primary care doctor for these recurrent symptoms. Take your medications as directed. Followup for your biopsy tomorrow and with the baler operator in November as scheduled. documented in this encounter Medications at Time [...] Care Car Home documented in this encounter Procedure Notes Business Job Titles, Scan - 10/05/2010 0000 EDTAssociated Order(s): ECG REPORT - SCANNED; ECG REPORT - SCANNED documented in this encounter ED Notes Rae Jensen RN - 10/05/20102216 EDT 12 Lead EKG Performed by RAE JENSEN RN and shown to Tad Parekh MD Heirberto Licea RN - 10/05/20102123 EDT Attempted PIV x 1 left AC without success. Pt defers further attempts, sts I just want to have themtake pictures of my belly and then let me drink. aware. Tad Wheeler MD - 10/05/2010 2119 EDT DOS: 10/05/2010 Chief Complaint Patient presents with ??? Other Weakness The patient is a 19 y.o. female who presents today with Other HPI Comments: Hx anxiety, now with diffuse tingling and numbness sudden onset while driving. [place] like she could not move her arms or legs, but was able to get out of car with assistance and walk. Has had similar in past but not as severe. Saw Dr Brar on 09/29 and started on new meds includidn dilaudid, zofran acymbalta and neurontin for chronic jeanette dodd per pt. The patient also complains of chronic chest and abdominal pain which she was evaluated here in the emergency department again today. She has had multiple ultrasounds of her pelvis and right upper quadrant in the past without finding a result. The patient also has had MRI of the head and a extensive laboratory workup to evaluate these multiple chronic symptoms. The patient also complains of 3 skin lesions which she states are bubblescoming out of my skin. She wants testing to find out what these skin lesions are. The patient is also requesting a CAT scan of her abdomen to evaluate her chronic abdominal pain. The history is provided by the patient. Tingling Primary symptoms include loss of sensation (all over body) and dizziness. Primary symptoms include no focal weakness. This is a recurrent problem. The current episode started 1 to 2 hours ago. The problem has been gradually improving. There was no focality noted. There has been no fever. Associated sym ptoms include shortness of breath (mild during episode) and chest pain (chronic). Pertinent negatives include no vomiting, no altered mental status, no confusion and no headaches. Associated medical issues do not include trauma, mood changes, a bleeding disorder, seizures, dementia, CVA or a clotting d isorder. Review of Systems Constitutional: Positive for fatigue. Negative for fever, chills, diaphoresis, activity change, appetite change and unexpected weight change. HENT: Positive for congestion and sore throat. Negative for drooling, trouble swallowing and voice change. Respiratory: Positive for shortness of breath (mild during episode). Negative for cough. Cardiovascular: Positive for chest pain (chronic) and palpitations. Negative for leg swelling. Gastrointestinal: Positive for abdominal pain (chronic) and blood in stool (while in the emergency department, the patient had a bowel movement and reported bright red blood in the stool.). Negative for vomiting. Genitourinary: Negative for dysuria, urgency and frequency. Musculoskeletal: Positive for myalgias and arthralgias. Skin: Positive for rash. Neurological: Positive for dizziness, tingling, tremors, weakness, light- headedness and numbness. Negative for focal weakness, seizures, syncope, facial asymmetry, speech difficulty and headaches. Psychiatric/Behavioral: Negative for confusion. The patient is nervous/anxious. All other systems reviewed and are negative. Past Medical History Diagnosis Date ??? Tendinitis ??? Torticollis ??? Laceration 12/04/06 left 5th digit tendon,nerve laceration ??? Myofascial pain right shoulder and neck myofascial pain ??? Psychiatric problem anxiety Past Surgical History Procedure Date ??? Finger surgery left Allergies Allergen Reactions ??? Paxil (Paroxetine Hcl) Nausea And Vomiting History Substance Use Topics ??? Smoking status: Current Some Day Smoker Last Attempt to Quit: 11/06/2009 ??? Smokeless tobacco: Never Used Comment: occasional ??? Alcohol Use: No occ Family History Problem Relation Age of Onset ??? Schizophrenia Mother ??? Diabetes ??? Bipolar Disorder uncle Vital Signs Temp: 36.8 ??C (98.2 ??F) Temp src: Oral Pulse: 136 Resp: 16 SpO2: 100 % BP: 145/90 mmHg O2 Device: None (Room air) Physical Exam Nursing note and vitals reviewed. Constitutional: She is oriented to person, place, and time. She appears well- developed and well-nourished. She appears distressed. Anxious, tremulous, tearful, and hyperventilating HENT: Head: Normocephalic and atraumatic. Eyes: Conjunctivae are normal. Pupils are equal, round, and reactive to light. Neck: Normal range of motion. Neck supple. Cardiovascular: Normal rate and regular rhythm. Exam reveals no gallop and no friction rub. No murmur heard. Pulmonary/Chest: Effort normal and breath sounds normal. No respiratory distress. She has no wheezes. She has no rales. Abdominal: Soft. Bowel sounds are normal. She exhibits no distension and no mass. No tenderness. Genitourinary: Rectal exam shows brown heme-negative stool. Internal control was passed. Musculoskeletal: Normal range of motion. She exhibits no edema and no tenderness. Neurological: She is alert and oriented to person, place, and time. Grossly intact Skin: Skin is warm and dry. Rash (there are 3 excoriated lesions, one to the right wristone to the right dorsum of the foot and one to the left lateral popliteal area, which appear to be insect bites with excoriations. There is no sign of infection of these lesions.) noted. Psychiatric: She has a normal mood and affect. Radiology orders: None EKG 12-LEAD Final Result: EKG-ST 110, Nl axis , intervals, no Q , no STT changes. Intup by TAD PAREKH MD independently and contemporaniously Procedures ED Course: A medical screening exam was performed. The patient kept coming up with new complaints in the emergency department. Almost all of these were chronic in nature. She is requesting CAT scans of multiple areas and also repeat blood work. The patient has a primary care doctor. She has an upcoming appointment with gastroenterology for her chronic abdominal pain, and is scheduled for a ultrasound guided biopsy of her lymph nodes tomorrow. I feel that none of these symptoms are acute and the patient can follow up with her primary care doctor for all of them. Disposition: Discharged The patient's pain was managed to an adequate level weighing risk vs. benefit of further medications. Upon departure from the Emergency Department, the patient's pain was 6 on a zero to ten scale. Condition at departure from the Emergency Department: Stable Discharge Prescriptions New Prescriptions No Discharge Prescriptions for this patient MDM Number of Diagnoses or Management Options Abdominal pain, chronic, generalized: Anxiety attack: Blood in stool: Excoriation: Pain in the chest: Tingling: Diagnosis management comments: 4 Amount and/or Complexity of Data Reviewed Tests in the medicine section of CPT??: ordered and reviewed Independent visualization of images, tracings, or specimens: yes 1. Tingling (782.0AS) 2. Abdominal pain, chronic, generalized (789.07M) 3. Pain in the chest (786.50L) 4. Excoriation (919.8C) 5. Anxiety attack (300.01L) 6. Blood in stool (578.1) by report but heme negative immediately afterward PCP: MONICA ARANDA MD 10/06/2010 4:08 Heriberto Licea RN - 10/05/20102109 EDT Upon approaching pt to start PIV, pt requests to use bathroom first, but sts I'm not sure I can stand to get there. Offered pt bedpan at which point pt stated that she could. Pt ambulated about 100 ft to bathroom with steady gait and no assistance. Pt was in bathroom for several minutes, at which point pt opened door and asked this RN if she could have something to drink so that she could go. This RN clarified with pt that she did not need to urinate, but was constipated and needed to move her bowels and could not, and thought that po water would help. Explained that pt could not drink at this time as abdominal pain needed to be assessed, and that drinking would not immediately help with constipation. Persuaded pt to return to room. Med student evaluating pt at this time. Heriberto Licea RN - 10/05/20102039 EDT Pt called EMS from her car in the parking lot of an ice cream store. Pt felt lightheaded, weak, nauseated. Sts diffuse abdominal pain. Tachycardic. Per EMS pt's story has changed multiple times en route to hospital from initial contact. Pt has several bottles of prescription medications, one of which appears to contain vicodin but which the label has been ripped off of. Pt sts that this last bottle is her grandmother's but that her doctor said she could take them. A&O. Respirations unlabored. Skin warm & dry. Moderate distress. On continuous cardiac monitoring. documented in this encounter Miscellaneous Notes Scanned Note-Null - Business Job Titles, Scan - 10/05/2010 0000 EDT Scanned Note-Null - Business Job Titles, Scan - 10/05/2010 0000 EDT Scanned Note-Null - Business Job Titles, Scan - 10/05/2010 0000 EDT documented in this encounter Plan of Treatment Not on filedocumented as of this encounter Procedures Procedure Name Priority Date/Time Associated Diagnosis Comme nts ECG REPORT - 10/14/2010 10:40 Results for this SCANNED EDT procedure are i n the results section. EKG 12-LEAD STAT 10/05/2010 22:23 Results for this EDT procedure are i n the results section. documented in this encounter Results ECG REPORT - SCANNED (10/14/2010 10:40 EDT) Specimen Narrative This result has an attachment that is no t available. Procedure Note Business Job Titles, Scan - 10/05/2010 0:00 ED T EKG 12-LEAD (10/05/2010 22:23 EDT) Impressions [facility] EKG - 10/05/2010 22:23 EDT EKG-ST 110, Nl axis , intervals, no Q , no STT changes. Intup by TAD PAREKH MD independently and con temporaniously Performing Organization Address City/State/ZIP Code Phon e Number [facility] EKG FA EKG documented in this encounter Visit Diagnoses Diagnosis Tingling Disturbance of skin sensation Abdominal pain, chronic, generalized Abdominal pain, generalized Pain in the chest Chest pain, unspecified Excoriation Other and unspecified superficial injury of other, multiple, and unspecified sites, without mention of infection Anxiety attack Panic disorder without agoraphobia Blood in stool documented in this encounter Administered Medications Inactive Administered Medications - up to 3 most recent administrations Medication Order MAR Action Action Date Dose Rate Site lidocaine (XYLOCAINE) 2 % 10 mL, Given 10/05/2010 22:16 EDT aluminum & magnesium hydroxide-simethicone (MYLANTA-DS) 400-400-40 mg/5 mL 30 mL (GI Cocktail) 40 mL, oral, NOW X1, 1 dose, On 10/05/10 at 2215, STAT documented in this encounter Historical Medications This list may reflect changes made after this encounter. Medication Sig Dispensed Refills Start Date End Date duloxetine (CYMBALTA) 60 mg Take 60 mg by 0 09/07/2011 capsule mouth. ondansetron (ZOFRAN-ODT) 4 Take 4 mg by mouth 0 0 10/05/2010 09/07/2011 mg disintegrating tablet 4 times daily as needed. omeprazole (PRILOSEC) 20 mg Take 20 mg by 0 09/07/2011 capsule mouth daily. HYDROmorphone (DILAUDID) 2 Take 1-2 mg by 0 10/0504/08/2012 mg tablet mouth 3 times daily as needed. added in this encounter Active and Recently Administered Medications Times are shown in EDT. Scheduled Medication Order 10/03/2010 10/04/2010 10/05/2010 lidocaine (XYLOCAINE) 2 % 10 mL, aluminu m & magnesium hydroxide-simethicone (MYLANTA-DS) 400-400-40 mg/5 mL 30 mL (GI Cocktail) (COMPLETED) 2216 (Given - Provider: Mohit Velasquez RN) 40 mL, oral, NOW X1, 1 dose, 10/05/10 at 2215, STAT documented in this encounter Orders Medications Ordered That Might Not Have Count Last Ord ered Date First Ordered Date Been Administered sodium chloride (NS) 0.9 % 2,000 mL BOLUS 1 2010 documented in this encounter Care Teams Farm Contractor Relationship Specialty Start Date End Date Monica Aranda MD PCP - General 04/24/10 11/06/10 documented as of this encounter
--- OUTSIDE RECORDS SUMMARY | 2021-08-16 23:34 | XMS_ITS | Encounter Summary ---
:1990 Author Organization [facility] Address [address] [place] [address] Care Team Providers Name Role Phone AbdoulMacarioMarilynMandy Primary Care Provider Encounter Details Date Type Department Care Team Description 01/19/2011 Results Only [facility] [address] [address] [place] [address] [address] [place] [address] (Wo rk) Social History Tobacco [...] Name Priority Date/Time Associated Diagnosis Comme nts NM GASTRIC EMPTYING 01/28/2011 15:01 Resu lts for this SCAN EST procedure are i n the results section. documented in this encounter Results NM GASTRIC EMPTYING SCAN (01/28/2011 15:01 EST) Anatomical Region Laterality Modality Other Specimen Narrative [facility] - 01/28/2011 15:50 EST NM GASTRIC EMPTYING SCAN ??Jan 28, 2011 03:01:00 PM Clinical History/Comments: bloating and vomiting Comparison: Gastric emptying for solid f ood. Indication: bloating and vomiting Technique: 1 mCi Tc-99m Sulfur Colloid tagged with egg whites with 2 slices or white bread, 30 grams of jam, and 120 ml of water was ingested by the patient. ??1 minute anterior and posteri or mages were obtained immiedtly after completion of the meal, at 30 minutes, 60 minutes, 90 minutes, 120 minutes, 180 minutes and 24 0 minutes or upto 90 % of gastric emptying. ??Percent gastric empt chiquita was calculated using a geometric mean curve fit method. Findings: Time to half emptyin minutes. Retention at ??30 minutes: 94 %. ?( Rapid under 70% ) Retention at ??60 minutes: 100 %. ?( Rapid under 30%, Delayed over 90% ) Retention at ??90 minutes: 95 %. ? Retention at 120 minutes: 79 %. ? ( Delayed over 60% ) Retention at 180 minutes: 36 %. Retention at 240 minutes: 20 %. ? ( Delayed over 10% ) Lag phase duration : 60 minutes. ?( Normal under 45 minutes) Impression: Delayed gastric emptying for solid food. References: Agusto et al. [place] Journal of Gastro enterology 2000. Antonio et al. Gastroenterology 2006 Genie et katerina. [place] Journal of Gastorent erology 2006. Procedure Note 01/28/2011 [place] GASTRIC EMPTYING SCAN Jan 28, 2011 03 :01:00 PM Clinical History/Comments: bloating and vomiting Comparison: Gastric emptying for solid f ood. Indication: bloating and vomiting Technique: 1 mCi Tc-99m Sulfur Colloid tagged with egg whites with 2 slices or white bread, 30 grams of jam, and 120 ml of water was ingested by the patient. 1 minute anterior and posterior mages were obtained immiedtly after completion of the meal, at 30 minutes, 60 minutes, 90 minutes, 120 minutes, 180 minutes and 24 0 minutes or upto 90 % of gastric emptying. Percent gastric emptyi ng was calculated using a geometric mean curve fit method. Findings: Time to half emptyin minutes. Retention at 30 minutes: 94 %. ( Rapid u nder 70% ) Retention at 60 minutes: 100 %. ( Rapid under 30%, Delayed over 90% ) Retention at 90 minutes: 95 %. Retention at 120 minutes: 79 %. ( Delaye d over 60% ) Retention at 180 minutes: 36 %. Retention at 240 minutes: 20 %. ( Delaye d over 10% ) Lag phase duration : 60 minutes. ( Arlen l under 45 minutes) Impression: Delayed gastric emptying for solid food. References: Tokary et al. [place] Journal of Gastro enterology 2000. Antonio et al. Gastroenterology 2006 Genie et al. [place] Journal of Gastorent erology 2006. Performing Organization Address City/State/ZIP Code Phon e Number [facility] documented in this encounter Visit Diagnoses Not on filedocumented in this encounter Care Teams Reproduction Artist Relationship Specialty Start Date End Date Mandy Beck DO PCP - General 11/07/10 03/20/[address] [place] [place] [address] documented as of this encounter
--- OUTSIDE RECORDS SUMMARY | 2021-08-16 23:34 | XMS_ITS | Encounter Summary ---
:1990 Author Organization [facility] Address [address] [place] [address] Care Team Providers Name Role Phone Monica Argueta MD Primary Care Provider [phone] Encounter Details Date Type Department Care Team Description 08/29/2010 Results Only [facility] Nadine Nicolas APRN Imaging Adult Primary Care - [address] [address] [place] [address] [phone] Social History Tobacco Use Types Packs/Day Years [...] Priority Date/Time Associated Diagnosis Comme nts MR HEAD W/WO 09/13/2010 13:03 Results for this CONTRAST EDT procedure are i n the results section. documented in this encounter Results MR HEAD W/WO CONTRAST (09/13/2010 13:03 EDT) Anatomical Region Laterality Modality Other Specimen Narrative [facility] - 09/15/2010 12:46 EDT Brain MR With and Without Contrast Clinical Indication: Head injury six day s prior. Technique: Sagittal T1, axial T1, T2 GRA SE, FLAIR, gradient echo, and diffusion-weighted imaging of the brain is obtained, along with coronal T1. After contrast administratio n, axial, coronal and sagittal T1 images are obtained with the use of fat suppression. Findings: Examination of the brain demon strates no parenchymal mass or extra-axial fluid collection. No midl ine shift or focal mass effect is present. Ventricles are normal in size and configuration. There is some minor mucosal thickening i n maxillary antra and ethmoid air cells bilaterally, but no air-fluid levels are seen. No significant susceptibility foci are seen on gradient echo. On the diffusion-weighted imaging, no acute inf arct is seen. There is no abnormal enhancement postcontrast. Impression: Unremarkable brain MR. Procedure Note 09/15/2010 Brain MR With and Without Contrast Clinical Indication: Head injury six day s prior. Technique: Sagittal T1, axial T1, T2 GRA SE, FLAIR, gradient echo, and diffusion-weighted imaging of the brain is obtained, along with coronal T1. After contrast administratio n, axial, coronal and sagittal T1 images are obtained with the use of fat suppression. Findings: Examination of the brain demon strates no parenchymal mass or extra-axial fluid collection. No midl ine shift or focal mass effect is present. Ventricles are normal in size and configuration. There is some minor mucosal thickening i n maxillary antra and ethmoid air cells bilaterally, but no air-fluid levels are seen. No significant susceptibility foci are seen on gradient echo. On the diffusion-weighted imaging, no acute inf arct is seen. There is no abnormal enhancement postcontrast. Impression: Unremarkable brain MR. Performing Organization Address City/State/ZIP Code Phon e Number [facility] documented in this encounter Visit Diagnoses Not on filedocumented in this encounter Care Teams Screen Printing Paster Relationship Specialty Start Date End Date Monica Argueta MD PCP - General 04/24/10 11/06/10 documented as of this encounter
--- OUTSIDE RECORDS SUMMARY | 2021-08-16 23:34 | XMS_ITS | Encounter Summary ---
:1990 Author Organization [facility] Address [address] [place] [address] Care Team Providers Name Role Phone Mandy Beck DO Primary Care Provider Encounter Details Date Type Department Care Team Description 01/10/2011 Phlebotomy Only [facility] Brush Head Maker, Gastr itis/duodenitis - [facility] [address] [place] [address] Social History Tobacco Use Types Packs/Day Years [...] Procedure Name Priority Date/Time Associated Comments Diagnosis HELICOBACTER PYLORI Routine 01/10/2011 12:56 Gastritis/duodeni ti Results for this IGG ANTIBODY EDT s procedure are i n the results section. documented in this encounter Results HELICOBACTER PYLORI IGG ANTIBODY (01/10/2011 12:56 EDT) H. Pylori IgG Ab Negative [facility] Comment: Assayed utilizing the [employer] system. Values may vary with other methods. Specimen Blood specimen (specimen) Performing Organization Address City/State/ZIP Code Phon e Number [facility] [address] [place] [address] [facility] [address] [place] [address] documented in this encounter Visit Diagnoses Diagnosis Unspecified gastritis and gastroduodenit is without mention of hemorrhage documented in this encounter Care Teams Director Of Partner Marketing Relationship Specialty Start Date End Date Mandy Beck DO PCP - General 11/07/10 03/20/12 [place] [address] documented as of this encounter
--- OUTSIDE RECORDS SUMMARY | 2021-08-16 23:34 | XMS_ITS | Encounter Summary ---
:1990 Author Organization [facility] Address [address] [place] [address] Care Team Providers Name Role Phone AbdoulKimMarilyn Brii Primary Care Provider Encounter Details Date Type Department Care Team Description 02/12/2011 Results Only [facility] DamonBrayan ugarte, [address] [facility] [place] [address] [place] [address] [address] [place] [address] (Wo rk) Social History Tobacco [...] Name Priority Date/Time Associated Diagnosis Comme nts VITAMIN D (25,OH) Routine 02/12/2011 17:20 Result s for this EST procedure are i n the results section. VITAMIN A, S Routine 02/12/2011 17:20 Results for this EST procedure are i n the results section. VITAMIN E, SERUM Routine 02/12/2011 17:20 Results for this EST procedure are i n the results section. PYRIDOXAL 5 Routine 02/12/2011 17:20 Results for this PHOSPHATE (PLP), EST procedure a re in PLASMA the results section. IRON Routine 02/12/2011 17:20 Results for this EST procedure are i n the results section. FOLATE Routine 02/12/2011 17:20 Results for this EST procedure are i n the results section. VITAMIN B12 Routine 02/12/2011 17:20 Results for this EST procedure are i n the results section. documented in this encounter Results VITAMIN E, SERUM (02/12/2011 17:20 EST) Alpha- Tocopherol 7.5 5.5 - 17.0 [facility] (Vitamin E) Comment: mg/L LAB Performed by: [facility] [employer] [facility] and, [address] [place] [address], [employer] Driver: Betina Sutton, Ph.D. Specimen Performing Organization Address City/[facility]/ZIP Code Phon e Number [facility] [address] [place] [address] SERVICES [facility] [address] [place] [address] VITAMIN D (25,OH) (02/12/2011 17:20 EST) 25OH Vitamin D Tot 19.7 ng/ml [facility] Comment: LAB Reference Range: <10 ng/ml: Deficient 10-30 ng/ml: Insufficient 30-100 ng/ml: Sufficient >100 ng/ml: Toxic Specimen Performing Organization Address City/[facility]/ZIP Code Phon e Number [facility] [address] [place] [address] SERVICES [facility] [address] [place] [address] VITAMIN A, S (02/12/2011 17:20 EST) Vitamin A 50.9 32.5 - 78.0 [facility] Comment: mcg/dL (Note) REVISED RESULTS REVISED REPORT, Previously reported as: 51.1 (Reported 02/15/2011 13:59) Performed by: [facility] [employer] [place], [address] [place] [address], [employer] Driver: Betina Sutton, Ph.D. Specimen Performing Organization Address City/[facility]/ZIP [facility] Phon e Number [facility] [address] [place] [address] SERVICES [facility] [address] [place] [address] PYRIDOXAL 5 PHOSPHATE (PLP), PLASMA (02/12/2011 17:20 EST) Pyridoxal 5 24 5 - 50 mcg/L [facility] Phosphate Comment: LAB Performed by: [facility] [place] and, [address], [place] [address], [employer] Driver: Betina Sutton, Ph.D. Specimen Performing Organization Address [facility] Phon e Number [facility] [address] [place] [address] SERVICES [facility] [address] [place] [address] IRON (02/12/2011 17:20 EST) Pathologist Sig nature Iron 65 60 - 180 ug/dl [facility] Specimen Performing Organization Address [facility] Phon e Number [facility] [address] [place] [address] SERVICES [facility] [address] [place] [address] FOLATE (02/12/2011 17:20 EST) Pathologist Sig nature Folate 18.4 ng/mL [facility] Comment: Deficient: ??Less than 3.4 ng/mL Indeterminate: ??3.4-5.4 ng/mL Normal: ??Greater than 5.4 ng/mL Specimen Performing Organization Address [facility] Phon e Number [facility] [address] [place] [address] SERVICES [facility] [address] [place] [address] VITAMIN B12 (02/12/2011 17:20 EST) Pathologist Sig nature Vitamin B-12 350 211 - 911 pg/ml [facility] Specimen Performing Organization Address [facility] Phon e Number [facility] [address] [place] [address] SERVICES [facility] [address] [place] [address] documented in this encounter Visit Diagnoses Not on filedocumented in this encounter Care Teams Cement Truck Loader Relationship Specialty Start Date End Date Mandy Beck DO PCP - General 11/07/10 03/20/[address] [place] [address] documented as of this encounter
--- OUTSIDE RECORDS SUMMARY | 2021-08-16 23:34 | XMS_ITS | Encounter Summary ---
:1990 Author Organization [facility] Address [address] [place] [address] Care Team Providers Name Role Phone Monica Argueta MD Primary Care Provider [phone] Encounter Details Date Type Department Care Team Description 10/06/2010 Hospital Encounter [facility] [place] Radiology - Main Cam monse Villaseñore, DO [address] [place], [place] [id number] [place] [id number] (Wo rk) Social History Tobacco Use Types [...] Sign Reading Time Taken Comments Blood Pressure 101/67 10/06/2010 1330 EDT Pulse - - Temperature 36.2 ??C (97.2 ??F) 10/06/2010 1240 EDT Respiratory Rate 18 10/06/2010 1330 EDT Oxygen Saturation 99% 10/06/2010 1330 EDT Inhaled Oxygen Concentration - - Weight 68 kg (150 lb) 10/03/2010 1522 EDT Height 165.1 cm (5' 5) 10/03/2010 1522 EDT Body Mass Index 24.96 10/03/2010 1522 EDT documented in this encounter Discharge Instructions Carole Bourne RN - 10/06/2010 RADIOLOGY PATIENT EDUCATION INSTRUCTIONS FOR WOUND CARE FOLLOWING r neck fine needle biopsy Procedure Site - r neck Physician Performing Procedure - {FA IR PROVIDERS:56818} s You may have driving restrictions for the remainder of the day if you have received sedation. You should not drive or make legal decisions for 24 hours. s You may resume your normal diet after the procedure. s You may use Tylenol (1-2 tablets every 4-6 hours) by mouth for mild discomfort. DO NOT take products containing aspirin or ibuprofen, vitamin E, or blood thinning products for 24 hours following yourprocedure. s The wound dressing consists of Band aid. Check the dressing throughout the day. If you notice any swelling, oozing, or brisk bleeding, immediately apply pressure to the area for 10 minutes. Slowly release the pressure and check to see if the bleeding has stopped. Repeat the process again if necessary. If bleeding does not stop at this point, seek medical attention by calling 911 or going to the nearest emergency room. s Keep the dressing dry. Change the dressing on Wednesday. Remove Band aid. Replace with a clean band aid. Inspect the site for signs of infection, redness, yellow drainage, or swelling. Report a temperature of greater than 101 degrees F or 38.3 C. After inspecting the wound, you can apply a thin layer of bacitracin (antibiotic ointment) and cover with a dry sterile gauze dressing. Leave covered until until healed and then you can leave the site open to air with no dressing. s You may shower on wednesday. You may be instructed to avoid getting your dressing wet but still be allowed to shower as long as you cover your dressing with saran wrap. You should not submerge in water, tub bath, swimming or hot tubs for 5 days following your procedure. ?? IF YOU HAVE ANY QUESTIONS OR CONCERNS REGARDING THE PROCEDURE, PLEASE CALL THE INTERVENTIONAL RADIOLOGY CLINIC AT . SOMEONE IS AVAILABLE TO TAKE YOUR CALL 24 HOURS A DAY. documented in this encounter Medications at Time [...] Care documented in this encounter Progress Notes Carole Thakkar RN - 10/06/2010 1249 EDT At 1240 pt admitted to CVU per stretcher from angio status post right cervical node biopsy. Bed in lowest position. Side rails up. Call arriaga within reach. Rolo PO Liquids. 1300 she isasking to leave early. Explained that the drsChitoorders state 2 hrs bedrest. She did accept this. Refusing food. Is waiting for discharge to get something. 1415 discharge instructions reviewed with pt and questions answered. Pt received a copy and signed copy place din chart. Jillian Thakkar RN Lindsey Toledo RN - 10/06/2010 1242 EDT Pt greeted, verified pt ID and consent. In , vss, reviewed meds, labs, allergies, hx. Sterile prep done, conscious sedation started, us guided R neck bx done by Dr Villatoro. Procedure complete, reportcalled, vss, d/c instructions in chart, pt transported to CVU. KET Carole bell RN - 10/06/2010 1123 EDT Mary Grace Harris arrived to CVU via ambulatory. Patient alert and oriented x3. Bed in lowest position with call arriaga within reach. Unit orientation and explanation of IV and procedure completed with patient. Pt very anxious. Grandmother with her. Anxious about IV and explained that it was running as ordered. Warm blanket to arm. Jillian Thakkar RN Laura marcus RN - 10/03/2010 1523 EDT Called and spoke with pt regarding procedure on Wednesday at 10am, pt did discuss that she is having regular us at 08:45. Pt instructed to check into registration before admission. Pt instructed to have no solid food after midnight, but may have clear liq's till 07:30. Pt instructed to bring a list of medications, to take her am meds with just a sip of water, to take her ativan if needed. Pt instructed that she will need a driver license reviewing officer, she was concerned about this, she was instructed that she will need a driver license reviewing officer with the sedation she is getting. She stated she will try to arrange this. Pt also stated that she can not afford to pay for the garage. I told her we will arrange for her to get a voucher for the parking garage. Pt stated she understands these instructions. documented in this encounter H&P Notes Jim Jimenez MD - 10/06/2010 1127 EDT Sedation for Procedure History & Physical Date: 10/06/2010 Time: 11:27 Location: IR Planned Procedure: Cervical lymph node FNA Chief Complaint/Indications for Procedure: Painful adenopathy History:19 y.o female with 5 yrs. Of painful adenopathy Previous Complication with Sedation and/or Anesthesia? Nausea Allergies: Allergies Allergen Reactions ??? Paxil (Paroxetine [...] capsule Take 60 mg by mouth. ??? gabapentin (NEURONTIN) 300 mg capsule Take 300 mg by mouth 3 times daily. ??? lorazepam (ATIVAN) 0.5 mg Tab Take 1 mg by mouth as needed. 1 -2 tabs. Past Medical History: Past Medical History Diagnosis Date ??? Tendinitis ??? Torticollis ??? Laceration 12/04/06 left 5th digit tendon,nerve laceration ??? Myofascial pain right shoulder and neck myofascial pain ??? Psychiatric problem anxiety Social History: Past Surgical History Procedure Date ??? Finger surgery left History Substance Use Topics ??? Smoking status: Current Some Day Smoker Last Attempt to Quit: 11/06/2009 ??? Smokeless tobacco: Never Used Comment: occasional ??? Alcohol Use: No occ Family History: Family History Problem Relation Age of Onset ??? Schizophrenia Mother ??? Diabetes ??? Bipolar Disorder uncle Review of Systems as pertinent: No fevers or cough Physical: Vital Signs: BP 129/77 Temp(Src) 36.9 ??C (98.4 ??F) (Temporal) Resp 16 Ht 165.1 cm (65) Wt68.04 kg (150 lb) BMI 24.96 kg/m2 SpO2 98% Heart Examination: RRR. No murmur Respiratory Examination: CTA B/L Assessment: 1.5 cm left lymph node amenable to FNA ASA 1 Fasting Time: <7hrs documented in this encounter Procedure Notes Filipe Villatoro MD - 10/06/2010 1231 EDT IR Procedure Note Procedure: Ultrasound guided FNA biopsy right cervical lymph node Date Performed: 10/06/2010 Radiologist/Breaker Tender(s): Irving Sedation/Anesthesia: Moderate sedation and local lidocaine Time Out: A time-out was completed prior to procedure verifying correct patient, procedure, site, positioning, and special equipment if applicable. Estimated Blood Loss: Unless otherwise noted, there was no blood loss, specimens removed, cultures obtained, or drains retained. Specimens: Multiple 25 gauge FNA biopsies of right cervical node sent for flow cytometry and cytology Fluoroscopy Time: none Contrast Volume: none Complications: none Condition: stable Post Procedure Diagnosis: same Findings: Successful biopsy Recommendations: Per Dr. Argueta. Filipe Villatoro MD 10/06/2010 12:32 documented in this encounter Miscellaneous Notes Scanned Note-Null - Machine Fancy Stitcher, Scan - 10/06/2010 0000 EDT Scanned Note-Null - Machine Fancy Stitcher, Scan - 10/06/2010 0000 EDT Scanned Note-Null - Machine Fancy Stitcher, Scan - 10/06/2010 0000 EDT Scanned Note-Null - Machine Fancy Stitcher, Scan - 10/06/2010 0000 EDT documented in this encounter Plan of Treatment Not on filedocumented as of this encounter Procedures Procedure Name Priority Date/Time Associated Diagnosis Comme nts COMPLETE BLOOD STAT 10/06/2010 10:40 Results f or this COUNT EDT procedure are i n the results section. documented in this encounter Results HEMAGRAM (10/06/2010 10:40 EDT) Pathologist Sig nature WBC 5.52 4.0 - 12.4 K/cmm [facility] RBC 4.97 3.86 - 5.04 M/cmm [facility] Hemoglobin 15.1 11.6 - 15.2 gm/dl [facility] HCT 43.4 34.9 - 44.4 % [facility] MCV 87 81 - 98 fl [facility] MCH 30.3 26.7 - 33.3 pg [facility] MCHC 34.7 32.1 - 35.9 gm/dl [facility] PLT 240 141 - 320 K/cmm [facility] RDW-CV 12.5 11.7 - 14.6 % [facility] Specimen Blood specimen (specimen) Performing Organization Address City/State/ZIP Code Phon e Number [facility] [address] [place] [address] SERVICES [facility] [address] [place] [address] documented in this encounter Visit Diagnoses Not on filedocumented in this encounter Administered Medications Inactive Administered Medications - up to 3 most recent administrations Medication Order MAR Action Action Date Dose Rate Site fentanyl citrate (PF) 50 mcg/mL Given 10/06/2010 12:30 EDT 250 m cg injection 25-250 mcg 25-250 mcg, intravenous, ONCE PRN, 1 dose, Starting on Wed10/06/10 at 1150, Until Wed10/06/10 at 1230, Pain, radiology, Routine, Intraprocedure midazolam (VERSED) injection 0.5-10 mg Given 10/06/2010 12:31 EDT 2.5 mg 0.5-10 mg, intravenous, ONCE PRN, 1 dose, Starting on Wed10/06/10 at 1150, Until Wed10/06/10 at 1231, Sedation, Routine, Intraprocedure sodium chloride 0.9 % (NS) infusion New Bag 10/06/2010 11:12 EDT 50 mL/hr 50 mL/hr at 50 mL/hr, 50 mL/hr, intravenous, CONTINUOUS, Starting on Wed10/06/10 at 1100, Until Wed10/06/10 at 1712, Routine, Preprocedure documented in this encounter Historical Medications This list may reflect changes made after this encounter. Medication Sig Dispensed Refills Start Date End Date acetaminophen (TYLENOL) 500 Take 1,000 mg by 0 09/07/2011 mg tablet mouth every 6 hours. CA CARBONATE/VITAMIN Take by mouth. 0 09/07/2011 D2/SOYB (ONE-A-DAY BONE STRENGTH ORAL) B-Complex with Vitamin C Take 1 Tab by 0 09/07/2011 Tab mouth daily. gabapentin (NEURONTIN) 300 Take 300 mg by 0 10/30/2010 mg capsule mouth 3 times daily. added in this encounter Active and Recently Administered Medications Times are shown in EDT. Continuous Medication Order 10/04/2010 10/05/2010 10/06/2010 sodium chloride 0.9 % (NS) infusion (CANCELED) 1112 (New Bag - Provider: Carole Thakkar RN) at 50 mL/hr, Intravenous, CONTINUOUS, St arting Wed10/06/10 at 1100, Until Wed10/06/10 at 1712 PRN Medication Order 10/04/2010 10/05/2010 10/06/2010 fentanyl citrate (PF) 50 mcg/mL injection 25-250 mcg (COMPLETED) 1230 (Given - Provider: Lindsey Joyce, RHODA) 25-250 mcg, Intravenous, ONCE PRN, 1 dos e, Starting Wed10/06/10 at 1150, Until Wed10/06/10 at 1230, Pain, radiology midazolam (VERSED) injection 0.5-10 mg (COMPLETED) 1231 (Given - Provider: Lindsey Joyce RN) 0.5-10 mg, Intravenous, ONCE PRN, 1 dose , Starting Wed10/06/10 at 1150, Until Wed10/06/10 at 1231, Sedation documented in this encounter Orders Nursing Count Last Ordered Date First Ordered Date INSERT PERIPHERAL IV 10/06/2010 OXYGEN THERAPY 10/06/2010 Admission Count Last Ordered Date First Ordered Date ADMIT TO OUTPATIENT 1 10/06/2010 NOTIFY PPS OF DISCHARGE COMPLETE 1 10/06/2010 Discharge Count Last Ordered Date First Ordered Date DISCHARGE PATIENT 10/06/2010 documented in this encounter Care Teams Commercial Intern Relationship Specialty Start Date End Date Monica Argueta MD PCP - General 04/24/10 11/06/10 documented as of this encounter
--- OUTSIDE RECORDS SUMMARY | 2021-08-16 23:35 | XMS_ITS | Encounter Summary ---
:1990 Author Organization [facility] Address [address] [place] [address] Care Team Providers Name Role Phone Ana Laura Castillo MD Primary Care Provider Encounter Details Date Type Department Care Team Description 11/23/2006 Results Only [facility] - [facility] Laura Castillo MD Maple conversion [address] [place], [place] [id number] [place] [phone] Social History Tobacco Use Types Packs/Day Years Used Date Never Assessed Sex Assigned at Date Recorded Not on file documented as of this encounter Plan of Treatment Not on filedocumented as of this encounter Procedures Procedure Name Priority Date/Time Associated Comments Diagnosis ZZCHLAMYDIA Routine 11/23/2006 12:00 Results for this TRACHOMATIS AMPLIFIED EDT proced ure are in PROBE the results section. documented in this encounter Results CHLAMYDIA TRACHOMATIS AMPLIFIED PROBE (11/23/2006 12:00 EDT) Specimen Urine [facility] Description LAB Result No Chlamydia [facility] trachomatis DNA LAB detected by dust collector attendant mediated amplification. Report Status Final [facility] [id number] LAB Specimen Performing Organization Address City/State/ZIP Code Phon e Number [facility] [address] [place] [address] SERVICES [facility] [address] [place] [address] documented in this encounter Visit Diagnoses Not on filedocumented in this encounter Care Teams Canal Driver Relationship Specialty Start Date End Date Ana Laura Castillo MD PCP - General 07/12/08 03/25/[address] [place] [address] documented as of this encounter
--- OUTSIDE RECORDS SUMMARY | 2021-08-16 23:35 | XMS_ITS | Encounter Summary ---
:1990 Author Organization [facility] Address [address] [place] [address] Care Team Providers Name Role Phone Unavailable Primary Care Provider Unavailable Encounter Details Date Type Department Care Team Description 12/04/2006 Hospital Encounter [facility] Emergency, Emergency Department - [place], Main [place] [address] [place], [place] [id number] Social History Tobacco Use Types Packs/Day Years Used Date Never Assessed Sex Assigned at Date Recorded Not on file documented as of this encounter Discharge Disposition Disposition Code Departure Means Destination Home or Self Care documented in this encounter Plan of Treatment Not on filedocumented as of this encounter Visit Diagnoses Not on filedocumented in this encounter
--- OUTSIDE RECORDS SUMMARY | 2021-08-16 23:35 | XMS_ITS | Encounter Summary ---
:1990 Author Organization [facility] Address [address] [place] [address] Care Team Providers Name Role Phone Unavailable Primary Care Provider Unavailable Encounter Details Date Type Department Care Team Description 12/06/[address] [facility] [place] Coreas [place] MD [address] [address] [facility] [phone] [place] [phone] (Wo rk) Social History Tobacco Use Types Packs/Day Years Used Date Never Assessed Sex Assigned at Date Recorded Not on file documented as of this encounter Discharge Disposition Disposition Code Departure Means Destination Auto Discharge documented in this encounter Plan of Treatment Not on filedocumented as of this encounter Visit Diagnoses Not on filedocumented in this encounter
--- OUTSIDE RECORDS SUMMARY | 2021-08-16 23:35 | XMS_ITS | Encounter Summary ---
:[address] [facility] Address [address] [place] [address] Care Team Providers Name Role Phone Alexander Prescott PA-C Primary Care Provider Reason for Visit Reason Onset Date Comments Neck Pain 04/14/2010 Encounter Details Date Type Department Care Team Description 04/14/2010 Telephone [facility] Spine Laura Fsoter MD Neck Pain Program - [address] Spine [place] [address] [phone] [place] [phone] (Wo rk) Social History Tobacco Use Types Packs/Day Years Used Date Former Smoker Quit: 11/07/19 10 Smokeless Tobacco: Never Used Comments: 1 pack per wk Alcohol Use Standard Drinks/Week Comments No 0 (1 standard drink = 0.6 oz pure alcoho l) occ Sex Assigned at Date Recorded Not on file documented as of this encounter Miscellaneous Notes Telephone Encounter - Babak Zee Jr. - 04/14/2010 9590 EST Left message at pt's home number for her MRI (04/25/10@8:30 pm check in [facility]), follow up with Dr. Foster (05/15/10@2:30 pm), and a request to call back to confirm. documented in this encounter Plan of Treatment Not on filedocumented as of this encounter Visit Diagnoses Not on filedocumented in this encounter Care Teams Pcb Design Engineer Relationship Specialty Start Date End Date Alexander Prescott PA-C PCP - General 03/26/10 04/23/10 documented as of this encounter
--- OUTSIDE RECORDS SUMMARY | 2021-08-16 23:35 | XMS_ITS | Encounter Summary ---
:1990 Author Organization [facility] Address [address] [place] [address] Care Team Providers Name Role Phone Ana Laura Castillo MD Primary Care Provider Alexander Prescott PA-C Primary Care Provider Monica Argueta MD Primary Care Provider Mandy Beck DO Primary Care Provider None, Provider Primary Care Provider Unavailable Noe Kurtz MD Primary Care Provider Orlando Correia MD Primary Care Provider [phone] Stephon Marquez MD Primary Care Provider Filipe Bose MD Primary Care Provider Sana Muhammad MD Primary Care Provider Jim Morales MD Primary Care Provider Encounter Details Date Type Department Care Team Description 11/30/2004 Hospital Encounter [facility] [place]ni Vazquez Fanny Allen [place] [address] [address] [address] [place] [address] (Wo rk) Social History Tobacco Use Types [...] Problems Progress 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[place], dependence Vania syndrome Healthy General On track [...] more about your health please v isit: https://www.[facility]org/medcenter/Pages/Wellness-Resources/Gmceyhblc-Bznggz-Xa documented as of this encounter Visit Diagnoses Not on filedocumented in this encounter Additional Health Concerns Infection Onset Date Last Indicated Resolved Time COVID-19 03/07/2021 03/07/2021 03/27/2021 22:15 EST documented as of this encounter Care Teams Boarder Machine Relationship Specialty Start Date End Date Ana Laura Castillo MD PCP - General 07/12/08 03/25/10 [address] [place] [address] Alexander Prescott PA-C PCP - General 03/26/10 04/23/10 Monica Argueta, PCP - General 04/24/10 Mandy Beck DO PCP - General 11/07/10 03/20/[address] [place] [place] [address] None, Provider PCP - General 03/21/12 03/31/12 Noe Kurtz MD PCP - General 04/01/12 05/02/13 Orlando Correia, PCP - General 05/03/13 Stephon Marquez MD PCP - General 08/06/13 11/06/15 Filipe Bose MD PCP - General 11/07/15 12/01/16 Sana Muhammad MD PCP - General 12/02/16 08/05/20 Jim Morales MD PCP - General Family Medicine - Primary 08/06/[address] [place] [phone] documented as of this encounter
--- OUTSIDE RECORDS SUMMARY | 2021-08-16 23:35 | XMS_ITS | Encounter Summary ---
:1990 Author Organization [facility] Address [address] [place] [address] Care Team Providers Name Role Phone Unavailable Primary Care Provider Unavailable Encounter Details Date Type Department Care Team Description 07/16/2003 Hospital Encounter [facility]- Yamilex Castillo, [facility] [address] [address] [place] [address] (Wo rk) Social History Tobacco Use Types Packs/Day Years Used Date Never Assessed Sex Assigned at Date Recorded Not on file documented as of this encounter Discharge Disposition Disposition Code Departure Means Destination Auto Discharge documented in this encounter Plan of Treatment Not on filedocumented as of this encounter Procedures Procedure Name Priority Date/Time Associated Diagnosis Comme nts FINGER 2 OR MORE Routine 07/16/2003 12:35 Results for this VIEWS EDT procedure are i n the results section. documented in this encounter Results FINGER 2 OR MORE VIEWS (07/16/2003 12:35 EDT) Anatomical Region Laterality Modality Other Specimen Narrative [facility] - 11/16/2008 9: 07 EDT jammed injury, pain anteriorly over pip r/o fracture of right 3rd finger RIGHT THIRD FINGER: 07/16/03 Three views of the right third finger we re obtained. There is normal alignment. No bony abnor malities are seen. IMPRESSIONS: No acute bony injury. /[facility] Procedure Note Alyssa Spence MD - 11/16/2008 jammed injury, pain anteriorly over pip r/o fracture of right 3rd finger RIGHT THIRD FINGER: 07/16/03 Three views of the right third finger we re obtained. There is normal alignment. No bony abnor malities are seen. IMPRESSIONS: No acute bony injury. /james Performing Organization Address City/State/ZIP Code Phon e Number [facility] [address] [facility] [address] [facility] [address] [place], [place] [address] documented in this encounter Visit Diagnoses Not on filedocumented in this encounter
--- OUTSIDE RECORDS SUMMARY | 2021-08-16 23:35 | XMS_ITS | Encounter Summary ---
:1990 Author Organization [facility] Address [address] [place] [address] Care Team Providers Name Role Phone Unavailable Primary Care Provider Unavailable Encounter Details Date Type Department Care Team Description 10/01/2005 Hospital Encounter [facility] - Lucia Castillo, Other MD [address] [address] [place] [address] (Wo rk) Social History Tobacco Use Types [...]
--- OUTSIDE RECORDS SUMMARY | 2021-08-16 23:35 | XMS_ITS | Encounter Summary ---
:1990 Author Organization [facility] Address [address] [place] [address] Care Team Providers Name Role Phone Ana Laura Castillo MD Primary Care Provider Encounter Details Date Type Department Care Team Description 07/05/2009 Hospital Encounter [facility] - Lucia Castillo [facility] [address] [facility] [address] [place] [address] [place] [address] [phone] (Wo rk) Social History Tobacco Use Types Packs/Day Years Used Date Current Every Day Smoker Comments: 1 pack per wk Alcohol Use Standard Drinks/Week Comments Yes 0 (1 standard drink = 0.6 oz pure alcoho l) occ Sex Assigned at Date Recorded Not on file documented as of this encounter Medications at Time of Discharge Medication Sig Dispensed Refills Start Date End Date ETHINYL Take by mouth daily. 0 10/06 ESTRADIOL/DROSPIRENONE (OCELLA ORAL) lorazepam (ATIVAN) 0.5 mg Take 0.5 mg by mouth 0 04/11/2010 Tab daily as needed. sertraline (ZOLOFT) 50 mg Take 100 mg by mouth 0 04/11/2010 tablet daily. documented as of this encounter Discharge Disposition Disposition Code Departure Means Destination Home or Self [facility] documented in this encounter Plan of Treatment Not on filedocumented as of this encounter Visit Diagnoses Not on filedocumented in this encounter Care Teams Light Coil Winder Relationship Specialty Start Date End Date Ana Laura Castillo MD PCP - General 07/12/08 03/25/10 [address] [place] [address] documented as of this encounter
--- OUTSIDE RECORDS SUMMARY | 2021-08-16 23:35 | XMS_ITS | Encounter Summary ---
:1990 Author Organization [facility] Address [address] [place] [address] Care Team Providers Name Role Phone Ana Laura Castillo MD Primary Care Provider Encounter Details Date Type Department Care Team Description 08/31/2008 Hospital Encounter [facility] - Scarlet Sotelo NP [address] [place] [address] Other Yrn Avila MD [address] [place] [address] MD [place] [phone] [address] [place] [address] Social History Tobacco Use Types Packs/Day Years Used Date Never Assessed Sex Assigned at Date Recorded Not on file documented as of this encounter Discharge Disposition Disposition Code Departure Means Destination Home or Self Care documented in this encounter Plan of Treatment Not on filedocumented as of this encounter Procedures Procedure Name Priority Date/Time Associated Comments Diagnosis CHLAMYDIA/N. Routine 10/09/2008 12:30 Results for this GONORRHOEAE AMPLIFIED EDT proced ure are in RNA, URINE the results section. documented in this encounter Results CHLAMYDIA/GC AMPLIFIED, URINE (10/09/2008 12:30 EDT) Specimen Urine [facility] Description LAB Result No Chlamydia [facility] trachomatis DNA LAB detected by laundry manager mediated amplification. Result No Neisseria [facility] gonorrhoeae DNA LAB detected by laundry manager mediated amplification. Specimen Performing Organization Address City/State/ZIP Code Phon e Number [facility] [address] [place] [address] SERVICES [facility] [address] [place] [address] documented in this encounter Visit Diagnoses Not on filedocumented in this encounter Care Teams Aviation Mechanic Relationship Specialty Start Date End Date Ana Laura Castillo MD PCP - General 07/12/08 03/25/10 [address] [place] [address] documented as of this encounter
--- OUTSIDE RECORDS SUMMARY | 2021-08-16 23:35 | XMS_ITS | Encounter Summary ---
:1990 Author Organization Address [address] [place] [address] Care Team Providers Name Role Phone Monica Aranda MD Primary Care Provider [phone] Reason for Visit Reason Comments Medical Evaluation hurts all over worried that she has lymphomia Encounter Details Date Type Department Care Team Description 08/28/2010 Emergency [facility] Alexander Drake MD [address] [place] [address], Level [address] [place] [address] Chronic pain; Emergency Department - Emergency, MD Chelsy Anxiety disorder [address] [address] Social History Tobacco Use Types Packs/Day [...] Sign Reading Time Taken Comments Blood Pressure 180/89 08/28/2010 0825 EDT Pulse 117 08/28/2010 0825 EDT Temperature 36.5 ??C (97.7 ??F) 08/28/2010 0825 EDT Respiratory Rate 18 08/28/2010 0825 EDT Oxygen Saturation 100% 08/28/2010 0825 EDT Inhaled Oxygen Concentration - - Weight 81.6 kg (180 lb) 08/28/2010 0825 EDT Height 165.1 cm (5' 5) 08/28/2010 0825 EDT Body Mass Index 29.95 08/28/2010 0825 EDT documented in this encounter Discharge Instructions InstructionsClAlexander cisse MD - 08/28/2010 Evaluation in the emergency department this morning does not reveal any evidence of a dangerous underlying cause of your symptoms. It is my belief that your symptoms are due to an underlying anxiety disorder, and that you would benefit from treatment for this. Please contact Dr. Aranda to schedule anappointment to discuss this further. AttachmentsThe following attachments cannot be sent through Care Everywhere. ANXIETY DISORDER: AFTER YOUR VISIT (KOREAN)documented in this encounter Medications at Time of Discharge Medication Sig Dispensed Refills Start Date End Date lorazepam (ATIVAN) 0.5 mg Take 1 mg by mouth 0 04/08/2012 Tab as needed. 1 -2 tabs. documented as of this encounter Discharge Disposition Disposition Code Departure Means Destination Comments Home or Self Care Car Boyfriend driving. documented in this encounter ED Notes Alexander Drake MD - 08/29/2010 0930 EDT DOS: 08/28/2010 Chief Complaint Patient presents with ??? Medical Evaluation hurts all over worried that she has lymphomia The patient is a 19 y.o. female who presents today with Medical Evaluation HPI Comments: This 19-year-old female presents to the emergency department tearful and anxious, withconcerns that she is suffering from either lymphoma or chronic toxicity from exposure to black mold.The patient states that she has had severe pain throughout her entire body daily for at least the last 5-6 years, states that she has had fevers every day for the last 10 years, and repeatedly states that she is sure she is dying. Past medical history is significant for chronic anxiety as well as the above mentioned chronic myofascial pain. She has been evaluated by ENT several years ago for perception of lymphadenopathy, with no evidence of lymphoma or other pathologic process. Most recently, she has been very concerned that symptoms may be due to previous exposure to black mold, however she describes the majority of her symptoms preceding any possible exposure. The history is provided by the patient. Medical Evaluation Episode onset: at least 5 years of chronic pain, and 10 years of daily fever. The problem is severe.Nothing relieves the symptoms. Nothing aggravates the symptoms. Associated symptoms include a fever,abdominal pain, muscle aches and neck pain. Pertinent negatives include no diarrhea, no nausea, no vomiting and no rash (although the patient does express great concern over several small ecchymoses onthe knees). Review of Systems Constitutional: Positive for fever and fatigue. Negative for unexpected weight change. HENT: Positive for neck pain. Cardiovascular: Positive for chest pain. Gastrointestinal: Positive for abdominal pain. Negative for nausea, vomiting and diarrhea. Genitourinary: Negative for dysuria and vaginal bleeding. Musculoskeletal: Positive for myalgias and back pain. Skin: Negative for rash (although the patient does express great concern over several small ecchymoses on the knees). Neurological: Positive for light-headedness. Negative for seizures and syncope. Psychiatric/Behavioral: Positive for dysphoric mood. Negative for suicidal ideas, confusion and self-injury. The patient is nervous/anxious. All other [...] ??? Bipolar Disorder uncle Vital Signs Temp: 36.5 ??C (97.7 ??F) Temp src: Tympanic Pulse: 117 Resp: 18 SpO2: 100 % BP: 180/89 mmHg BP Device: BP Machine Patient Position: Sitting BP Cuff Location: Left arm O2 Device: None (Room air) Physical Exam Nursing note and vitals reviewed. Constitutional: She is oriented to person, place, and time. She appears distressed. Alert, well-developed well-nourished female, tearful in room with significant anxiety. HENT: Head: Normocephalic and atraumatic. Mouth/Throat: Oropharynx is clear and moist. Eyes: Conjunctivae and extraocular motions are normal. Pupils are equal, round, and reactive to light. No scleral icterus. Neck: Normal range of motion. Neck supple. No JVD present. No thyromegaly present. Cardiovascular: Regular rhythm and normal heart sounds. Tachycardia present. Exam reveals no gallop and no friction rub. No murmur heard. Pulmonary/Chest: Effort normal and breath sounds normal. No stridor. No respiratory distress. She has no wheezes. She has no rales. Abdominal: Soft. She exhibits no distension. She has no guarding. Musculoskeletal: Normal range of motion. She exhibits no edema and no tenderness. Lymphadenopathy: She has cervical adenopathy (Minimal shotty, mobile, nontender nodes are noted in the right posterior cervical chain). Neurological: She is alert and oriented to person, place, and time. No cranial nerve deficit. Coordination normal. Skin: Skin is warm and dry. No rash noted. Several very small, aged ecchymoses are noted over the anterior surface of the right knee. There are no petechiae or purpura, and there is no evidence of pathologic ecchymoses elsewhere. Psychiatric: Her speech is normal. Her mood appears anxious. Her affect is angry. She is aggressive.Thought content is delusional (Repeatedly verbalizes the fixed believe that she must be dying from some dangerous process). Cognition and memory are normal. She expresses no suicidal ideation. She expresses no suicidal plans. Radiology orders: None Procedures ED Course: A medical screening exam was performed. 19-year-old female with long-standing diffuse somatic complaints and anxiety, presents to the emergency department reportedly because she had been told that we would specifically perform evaluation to rule out multiple toxicity. On evaluation, the patient is afebrile, demonstrates modest tachycardia in the state of severe anxiety, but otherwise has physical examination that is entirely unremarkable. Laboratory data includes complete metabolic profile without any significant abnormalities, and CBC. UPT is negative and urinalysis is normal. I discussed with the patient my belief that the long-standing nature of her symptoms, combined with previous negative evaluations and no evidence of acute pathologic process today, all points towards her distress representing somatic symptoms related to an underlying anxiety disorder. I discussed with her my belief that addressing this issue would be the best approach to achieve relief of her distressing symptoms. The patient expressed significant anger and fru stration, and repeatedly stated that she needed emergent medical evaluation for these diffuse symptoms, which had been present for 5-10 years. I discussed the results of my diagnostic evaluation, as well as the patient's response to my suggestions, with Dr. Alondra Arellano, Covering for Dr. Monica Aranda at [facility]. Disposition: Discharged The patient's pain was managed to an adequate level weighing risk vs. benefit of further medications. Condition at departure from the Emergency Department: Stable Discharge Prescriptions New Prescriptions No Discharge Prescriptions for this patient MDM Number of Diagnoses or Management Options Anxiety disorder: Chronic pain: Diagnosis management comments: 4 Amount and/or Complexity of Data Reviewed Clinical lab tests: ordered and reviewed Review and summarize past medical records: yes Discuss the patient with other providers: yes (Dr. Arellano) 1. Chronic pain (338.29A) 2. Anxiety disorder (300.00G) PCP: MONICA ARANDA MD 08/29/2010 9:30 Ana Laura Mojica RN - 08/28/[address] Drake in to see pt, pt left was verbally advised by Dr. Drake. Pt left before discharge paperwork signed. Ana Laura Mojica RN - 08/28/2010 1132 EDT I went into pt's room to discharge her and she asked me if we did a black mold test, I told her we didn't and pt stated she wanted to speak with Dr. Drake. Dr. Drake aware and will go in and speak with the pt. Ana Laura Mojica RN - 08/28/2010 1018 EDT Pt put financial institution branch manager arriaga. Upon entering the room, pt yelling my arm is killing me, take this IV out The air bubbles are rushing through my veins. I reassured pt that saline was running and no air bubbles are present. Ana Laura Mojica RN - 08/28/2010 1005 EDT Pt continues to be extremely anxious. Pt also c/o pain all over. andall Henderson - 08/28/2010 0919 EDT Blood drawn via saline lock per protocol, tiger and purple tube(s) sent to lab per order. andall Henderson - 08/28/2010 0919 EDT .blood Hipolito Delarosa RN - 08/28/2010 0823 EDT Pt has been having symptoms for at least five years and has been seeking care and affermation documented in this encounter Miscellaneous Notes Scanned Note-Null - Biology Specialist, Scan - 08/28/2010 0000 EDT Scanned Note-Null - Biology Specialist, Scan - 08/28/2010 0000 EDT documented in this encounter Plan of Treatment Not on filedocumented as of this encounter Procedures Procedure Name Priority Date/Time Associated Comments Diagnosis POCT TEST, STAT 08/28/2010 9:26 Resu lts for this VISUAL READ EDT procedure are i n the results section. POCT URINALYSIS Routine 08/28/2010 9:23 Results f or this EDT procedure are i n the results section. COMPLETE BLOOD COUNT STAT 08/28/2010 9:02 Resu lts for this AND DIFFERENTIAL EDT procedure a re in the results section. COMPREHENSIVE STAT 08/28/2010 9:02 Results for this METABOLIC PANEL (CMP) EDT proced ure are in the results section. documented in this encounter Results POCT URINE TEST (08/28/2010 9:26 EDT) Pathologist Sig nature Test, Negative Reference Range, POINT OF CARE Urine, POC Negative Control Line Present Yes POINT OF CARE Background Clear? Yes POINT OF CARE Specimen Urine (substance) Performing Organization Address City/State/ZIP Code Phon e Number [facility] POINT OF CARE POINT OF CARE POCT URINALYSIS (08/28/2010 9:23 EDT) Color YELLOW [facility] Clarity, UA Clear [facility] Glucose Neg NEG [facility] Bilirubin Neg NEG [facility] Ketones Neg NEG [facility] Specific [place] 1.015 1.001 - 1.035 [facility] Blood Neg NEG [facility] pH 7.5 4.6 - 8.0 [facility] Protein Neg NEG [facility] Urobilinogen 0.2 0.2 - 1.0 [facility] E.U./dl LAB Nitrite Neg NEG [facility] Leuk Esterase Neg NEG [facility] supervisor cigar making hand ID [id number] [facility] Test Performed by Nursing Services LAB Specimen Performing Organization Address City/State/ZIP Code Phon e Number [facility] [address] [place] [address] SERVICES [facility] [address] [place] [address] (ABNORMAL) COMPREHENSIVE METABOLIC PANEL (CMP) (08/28/2010 9:02 EDT) Pathologist Sig nature Potassium 4.2 3.5 - 5.0 mEq/L [facility] Sodium 140 136 - 145 mEq/L [facility] Chloride 107 96 - 110 mEq/L [facility] CO2 22 (L) 24 - 32 mEq/L [facility] Total Alkaline 81 38 - 126 U/L [facility] Phosphatase Bilirubin, Total <0.5 0.2 - 1.3 mg/dl [facility] AST 17 15 - 46 U/L [facility] ALT <11 9 - 52 U/L [facility] Albumin 4.8 3.4 - 4.9 g/dl [facility] Total Protein 7.5 6.5 - 8.3 g/dl [facility] Creatinine 0.60 (L) 0.7 - 1.5 mg/dl [facility] GFR, Calculated >60 ml/min/1.73m2 [facility] BUN 11 10 - 26 mg/dl [facility] Calcium 9.7 8.5 - 10.5 [facility] mg/dl Calculated Calcium 9.3 8.5 - 10.5 [facility] mg/dl Glucose, Serum 102 (H) 70 - 100 mg/dl [facility] Fasting? Unknown [facility] Specimen Blood specimen (specimen) Performing Organization Address City/State/ZIP Code Phon e Number [facility] [address] [place] [address] SERVICES [facility] [address] [place] [address] (ABNORMAL) HEMAGRAM AND DIFFERENTIAL (08/28/2010 9:02 EDT) Pathologist Sig nature WBC 7.24 4.0 - 12.4 K/cmm RBC 4.96 3.86 - 5.04 M/cmm Hemoglobin 14.7 11.6 - 15.2 gm/dl HCT 43.4 34.9 - 44.4 % MCV 87 81 - 98 fl MCH 29.7 26.7 - 33.3 pg MCHC 34.0 32.1 - 35.9 gm/dl PLT 244 141 - 320 K/cmm RDW-CV 12.9 11.7 - 14.6 % Neutrophils 53.1 45.5 - 79.7 % Lymphocytes 37.5 15.0 - 46.8 % Monocytes 8.4 1.8 - 12.0 % Eosinophils 0.5 (L) 0.6 - 6.9 % Basophils 0.5 0.2 - 1.4 % ABS Neutrophils 3.85 2.20 - 8.85 K/cmm ABS Lymphs 2.71 1.09 - 3.30 K/cmm ABS Monocytes 0.61 0.1 - 0.8 K/cmm ABS Eosinophils 0.03 0.03 - 0.61 K/cmm ABS Basophils 0.04 0.01 - 0.11 K/cmm Type of Diff: Automated Specimen Blood specimen (specimen) documented in this encounter Visit Diagnoses Diagnosis Chronic pain Other chronic pain Anxiety disorder Anxiety state, unspecified documented in this encounter Administered Medications Inactive Administered Medications - up to 3 most recent administrations Medication Order MAR Action Action Date Dose Rate Site sodium chloride (NS) 0.9 % 1,000 mL Given 08/28/2010 9:17 EDT 1, 000 mL BOLUS 1,000 mL, intravenous, ONCE, 1 dose, Starting on Soraya 08/28/10 at 0915, Until Soraya 08/28/10 at 0917, STAT documented in this encounter Active and Recently Administered Medications Times are shown in EDT. Scheduled Medication Order 08/26/2010 08/27/2010 08/28/2010 sodium chloride (NS) 0.9 % 1,000 mL BOLUS (COMPLETED) 0917 (Given - Provider: Randall Henderson)1020 (Completed - Provider: Ana Laura Peng RN) 1,000 mL, intravenous, ONCE, 1 dose, Sta rting Soraya 08/28/10 at 0915, Until Soraya 08/28/10 at 0917, STAT documented in this encounter Orders Lab Orders Without Results Count Last Ordered Date Fir st Ordered Date POCT URINE DIPSTICK 1 08/28/2010 Nursing Count Last Ordered Date First Ordered Date INSERT PERIPHERAL IV 1 08/28/2010 documented in this encounter Care Teams Ornament Stapler Relationship Specialty Start Date End Date Monica Aranda MD PCP - General 04/24/10 11/06/10 documented as of this encounter
--- OUTSIDE RECORDS SUMMARY | 2021-08-16 23:35 | XMS_ITS | Encounter Summary ---
:1990 Author Organization [facility] Address [address] [place] [address] Care Team Providers Name Role Phone Unavailable Primary Care Provider Unavailable Encounter Details Date Type Department Care Team Description 03/10/2007 Hospital Encounter [facility] - Calvin Thomas Maple conversion MD [address] [phone] [place] [address] (Wo rk) Social History Tobacco Use [...]
--- OUTSIDE RECORDS SUMMARY | 2021-08-16 23:35 | XMS_ITS | Encounter Summary ---
:1990 Author Organization [facility] Address [address] [place] [address] Care Team Providers Name Role Phone Monica Aranda MD Primary Care Provider [phone] Reason for Visit Reason Comments Laceration Pt reports she got her left pinkie caught in a leash. Small avulsion noted around pinkie, numbness note d to tip of finger. Cap refill < 2 seconds. Tetanus UTD. Encounter Details Date Type Department Care Team Description 08/10/2010 Emergency [facility] Lan Castano, APRIL [address] [facility] [address] [place] [address] Abrasion of finger, Emergency Department - Emergency, MD Chelsy [address] [id number] Social History Tobacco Use Types Packs/Day Years [...] Sign Reading Time Taken Comments Blood Pressure 145/77 08/10/2010 1654 EDT Pulse - - Temperature 36.7 ??C (98.1 ??F) 08/10/2010 1652 EDT Respiratory Rate 16 08/10/2010 1654 EDT Oxygen Saturation 100% 08/10/2010 1654 EDT Inhaled Oxygen Concentration - - Weight - - Height - - Body Mass Index - - documented in this encounter Discharge Instructions Lan Holm PA - 08/10/2010 Close follow up with family MD. Watch for signs of infection. Return to ER if symptoms increase or any other problems. AttachmentsThe following attachments cannot be sent through Care Everywhere. SCRAPES (ABRASIONS): AFTER YOUR VISIT (SWEDISH)documented in this encounter Medications at Time of Discharge Medication Sig Dispensed Refills Start Date End Date lorazepam (ATIVAN) 0.5 mg Take 1 mg by mouth 0 04/08/2012 Tab as needed. 1 -2 tabs. documented as of this encounter Discharge Disposition Disposition Code Departure Means Destination Home or Self Care Walk-out Home documented in this encounter ED Notes Lan Castano PA - 08/10/20102023 EDT Images from the original note were not included. DOS: 08/10/2010 Chief Complaint Patient presents with ??? Laceration Pt reports she got her left pinkie caught in a leash. Small avulsion noted around pinkie, numbness noted to tip of finger. Cap refill < 2 seconds. Tetanus UTD. The patient is a 19 y.o. female who presents today with Laceration HPI Comments: Pt presents today for evaluation of finger abrasion after dog leash pinched her finger. Stopped a dog from running into the street by grabbing the leash and states a metal portion of the leash scraped her little finger on R hand. Decreased ROM secondary to pain, States finger feels numb.Pt quite anxious about event. No tx tried. Denies CP, SOB, N/V/D/F. The history is provided by the patient. Laceration The incident occurred less than 1 hour ago. The laceration is located on the right hand. The laceration mechanism was a a metal edge. The pain is at a severity of 10/10. The pain has been constant since onset. Her tetanus status is UTD. Review of Systems Constitutional: Negative for fever and chills. HENT: Negative for neck stiffness. Eyes: Negative for visual disturbance. Respiratory: Negative for shortness of breath. Cardiovascular: Negative for chest pain. Gastrointestinal: Negative for abdominal pain. Genitourinary: Negative for dysuria. Musculoskeletal: Positive for arthralgias. Negative for back pain. Skin: Positive for wound. Negative for rash. Neurological: Negative for headaches. Psychiatric/Behavioral: Negative for confusion. All other [...] ??? Bipolar Disorder uncle Vital Signs Temp: 36.7 ??C (98.1 ??F) Temp src: Tympanic Heart Rate: 103 BPM Resp: 16 SpO2: 100 % BP: 145/77 mmHg BP Device: BP Machine Patient Position: Sitting BP Cuff Location: Right arm O2 Device: None (Room air) Physical Exam Nursing note and vitals reviewed. Constitutional: She appears well-developed and well-nourished. HENT: Head: Normocephalic and atraumatic. Right Ear: External ear normal. Left Ear: External ear normal. Nose: Nose normal. Eyes: Pupils are equal, round, and reactive to light. Right eye exhibits no discharge. Left eye exhibits no discharge. Neck: Normal range of motion. Neck supple. No tracheal deviation present. Musculoskeletal: Normal range of motion. She exhibits tenderness. She exhibits no edema. Hands: Neurological: She is alert. She has normal strength. No sensory deficit. Skin: No rash noted. Psychiatric: She has a normal mood and affect. Radiology orders: None Procedures ED Course: A medical screening exam was performed. Pt presents today for evaluation of 5th digit pain after scrape from metal edge. Nothing to suture present. No bleeding or edema present. Td is UTD. Wound cleaned and bandaged. Close fu with PCP. Return to ER if sx increase or any other problems. Disposition: Discharged The patient's pain was managed to an adequate level weighing risk vs. benefit of further medications. Upon departure from the Emergency Department, the patient's pain was 4 on a zero to ten scale. Condition at departure from the Emergency Department: Improved Discharge Prescriptions New Prescriptions No Discharge Prescriptions for this patient MDM Number of Diagnoses or Management Options Abrasion of finger, right: Diagnosis management comments: 3 1. Abrasion of finger, right (915.0Y) PCP: MONICA ARANDA MD 08/10/2010 20:33 iAna Laura holliday RN - 08/10/2010 1725 EDT Xeroform dressing and gauze applied, ice pack provided, wound care reviewed. documented in this encounter Miscellaneous Notes Scanned Note-Null - Pharmacy Tech Customer Service, Scan - 08/10/2010 0000 EDT documented in this encounter Plan of Treatment Not on filedocumented as of this encounter Visit Diagnoses Diagnosis Abrasion of finger, right Abrasion or friction burn of finger, wit hout mention of infection documented in this encounter Discontinued Medications Medication Sig Discontinue Reason Start Date End Date pantoprazole (PROTONIX) 40 Take 40 mg by Therapy completed 08/10/2010 mg tablet mouth daily. magnesium oxide (MAG-OX) Take 400 mg by Therapy completed 08/10/2010 400 mg tablet mouth daily as needed. documented as of this encounter Care Teams Car Builder Relationship Specialty Start Date End Date Monica Aranda MD PCP - General 04/24/10 11/06/10 documented as of this encounter
--- OUTSIDE RECORDS SUMMARY | 2021-08-16 23:35 | XMS_ITS | Encounter Summary ---
:[address] [facility] Address [address] [place] [address] Care Team Providers Name Role Phone Ana Laura Castillo MD Primary Care Provider Encounter Details Date Type Department Care Team Description 07/05/2009 Hospital Encounter [facility] - Lucia Castillo, [facility] [address] [facility] [address] [place] [address] [place] [address] [phone] (Wo rk) Social History Tobacco Use Types [...] Departure Means Destination Home or Self Senior Living documented in this encounter Plan of Treatment Not on filedocumented as of this encounter Visit Diagnoses Not on filedocumented in this encounter Care Teams Butadiene Compressor Operator Relationship Specialty Start Date End Date Ana Laura Castillo MD PCP - General 07/12/08 03/25/10 [address] [place] [address] documented as of this encounter
--- OUTSIDE RECORDS SUMMARY | 2021-08-16 23:35 | XMS_ITS | Encounter Summary ---
:1990 Author Organization [facility] Address [address] [place] [address] Care Team Providers Name Role Phone Ana Laura Castillo MD Primary Care Provider Encounter Details Date Type Department Care Team Description 10/09/2008 Hospital Encounter [facility] - Scarlet Sotelo NP Other [address] [facility] [address] [place] [phone] Social History Tobacco Use Types Packs/Day Years Used Date Never Assessed Sex Assigned at Date Recorded Not on file documented as of this encounter Discharge Disposition Disposition Code Departure Means Destination Home or Self Care documented in this encounter Plan of Treatment Not on filedocumented as of this encounter Procedures Procedure Name Priority Date/Time Associated Diagnosis Comme nts QUANT BETA HCG, Routine 01/18/2009 11:45 Results for this EST procedure are i n the results section. documented in this encounter Results HCG (01/18/2009 11:45 EST) Pathologist Sig nature HCG <4 <4 mIU/ml [facility] Comment: Reference Range: Positive = >10 Borderline = 4-10 recommend repeat. Negative = <4 Specimen Performing Organization Address City/State/ZIP Code Phon e Number [facility] [address] [place] [address] SERVICES [facility] [address] [place] [address] documented in this encounter Visit Diagnoses Not on filedocumented in this encounter Care Teams Colorist Formulator Relationship Specialty Start Date End Date Ana Laura Castillo MD PCP - General 07/12/08 03/25/[address] [place] [address] documented as of this encounter
--- OUTSIDE RECORDS SUMMARY | 2021-08-16 23:35 | XMS_ITS | Encounter Summary ---
:[address] [facility] Address [address] [place] [address] Care Team Providers Name Role Phone Ana Laura Castillo MD Primary Care Provider Encounter Details Date Type Department Care Team Description 10/01/2005 Results Only [facility] - Ana Laura Castillo MD Maple conversion [address] [place], [place] [address] [place] [id number] [phone] Social History Tobacco Use Types Packs/Day Years Used Date Never Assessed Sex Assigned at Date Recorded Not on file documented as of this encounter Plan of Treatment Not on filedocumented as of this encounter Procedures Procedure Name Priority Date/Time Associated Comments Diagnosis COMPLETE BLOOD COUNT Routine 10/01/2005 9:45 Resu lts for this EDT procedure are i n the results section. TSH Routine 10/01/2005 9:45 Results for this EDT procedure are i n the results section. COMPREHENSIVE Routine 10/01/2005 9:45 Results for this METABOLIC PANEL (CMP) EDT proced ure are in the results section. documented in this encounter Results TSH (10/01/2005 9:45 EDT) Pathologist Sig nature TSH 0.91 0.35 - 5.00 uIU/mL [facility] Specimen Performing Organization Address City/State/ZIP Code Phon e Number [facility] [address] [place] [address] SERVICES [facility] [address] [place] [address] (ABNORMAL) COMPREHENSIVE METABOLIC PANEL (10/01/2005 9:45 EDT) Pathologist Sig nature Potassium 4.4 3.6 - 5.2 mEq/L [facility] Sodium 139 136 - 145 mEq/L [facility] Chloride 103 96 - 110 mEq/L [facility] CO2 27 24 - 32 mEq/L [facility] Total Alkaline 67 (L) 70 - 230 U/L [facility] Phosphatase Bilirubin, Total <0.5 0.0 - 1.4 mg/dl [facility] AST 20 16 - 38 U/L [facility] ALT 20 5 - 30 U/L [facility] Albumin 4.6 3.0 - 5.5 g/dl [facility] Total Protein 7.5 6.3 - 8.6 g/dl [facility] Creatinine 0.7 0.6 - 1.2 mg/dl [facility] BUN 7 (L) 8 - 21 mg/dl [facility] Calcium 9.6 8.5 - 10.5 mg/dl [facility] Calculated Calcium 9.4 8.5 - 10.5 mg/dl [facility] Glucose, Serum 94 70 - 100 mg/dl [facility] Fasting? No [facility] Albumin/Globulin Ratio 1.6 [facility] Specimen Performing Organization Address City/State/[facility] Code Phon e Number [facility] [address] [place] [address] SERVICES [facility] [address] [place] [address] (ABNORMAL) HEMAGRAM (10/01/2005 9:45 EDT) Pathologist Sig nature WBC 6.29 4.5 - 13.0 K/cmm [facility] RBC 5.33 (H) 4.10 - 5.10 M/cmm [facility] Hemoglobin 14.7 12.0 - 16.0 gm/dl [facility] HCT 43.4 36.0 - 46.0 % [facility] MCV 81 78 - 102 fl [facility] MCH 27.6 pg [facility] MCHC 33.9 gm/dl [facility] PLT 288 156 - 312 K/cmm [facility] RDW-CV 14.2 % [facility] Specimen Performing Organization Address City/State/ZIP Code Phon e Number [facility] [address] [place] [address] SERVICES [facility] [address] [place] [address] documented in this encounter Visit Diagnoses Not on filedocumented in this encounter Care Teams Stitching Department Supervisor Relationship Specialty Start Date End Date Ana Laura Castillo MD PCP - General 07/12/08 03/25/10 [address] [place] [address] documented as of this encounter
--- OUTSIDE RECORDS SUMMARY | 2021-08-16 23:35 | XMS_ITS | Encounter Summary ---
:1990 Author Organization [facility] Address [address] [place] [address] Care Team Providers Name Role Phone Unavailable Primary Care Provider Unavailable Encounter Details Date Type Department Care Team Description 06/23/2007 Hospital Encounter [facility] - Calvin Thomas Maple conversion MD [id number] [place] [address] [place] [phone] (Wo rk) Social History Tobacco Use Types Packs/Day Years Used Date Never Assessed Sex Assigned at Date Recorded Not on file documented as of this encounter Discharge Disposition Disposition Code Departure Means Destination Auto Discharge documented in this encounter Plan of Treatment Not on filedocumented as of this encounter Procedures Procedure Name Priority Date/Time Associated Diagnosis Comme nts CYTOPATHOLOGY Routine 01/12/2008 0:00 EST Results for this procedure are i n the results section . documented in this encounter Results CYTOPATHOLOGY (01/12/2008 0:00 EST) Pathology Report: CYTOPATHOLOGY REPORT ? [facility] Reports generated via electr onic interface contain original data; ? however they are lacking the format of the original report. ? Caution should be taken when reading/interpreting unformatted reports. ? Name: ? YASMANY EUBANKS ? Accession #: ? [id number] ? : ? 1990 (Age: 17) ??F ?Collect Date: ? 01/12/2008 ? Location: ? [facility] ? Receive Date: ? 01/13/2008 ? Provider: ?MARINE VITAL RSTEIN MD ? Copy to: ? Specimen/Source: ? Pap Test, Cervix/Endocervix, ThinPrep Imaging System ? with manual evaluation ? Last Menstrual Period: ? 10/10/08 ? Hormonal/Contraceptive Statu s: ? Control Pills ? Other: ? HPVA - HPV testing requested if ASC-US on the current ThinPrep Pap test. ? SPECIMEN ADEQUACY ? Satisfactory for Eval uation ? - transformation zone compon ent present ? GENERAL CATEGORIZATION ? Negative for Intraepi thelial Lesion or Malignancy ? Document reviewed and electr onically signed by: ? Janell F. Colasacco, S CT(ASCP) ? Report Date: ??11/12/ 2008 15:43 ? End of Report ? Specimen Performing Organization Address City/State/ZIP Code Phon e Number [facility] [address] [place] [address] SERVICES [facility] [address] [place] [address] documented in this encounter Visit Diagnoses Not on filedocumented in this encounter
--- OUTSIDE RECORDS SUMMARY | 2021-08-16 23:35 | XMS_ITS | Encounter Summary ---
:1990 Author Organization [facility] Address [address] [place] [address] Care Team Providers Name Role Phone Monica Argueta MD Primary Care Provider [phone] Encounter Details Date Type Department Care Team Description 08/27/2010 Results Only [facility] Nadine Nicolas APRN Imaging Adult Primary Care - [address] [address] [place] [address] [phone] Social History Tobacco Use Types Packs/Day Years [...] on filedocumented in this encounter Care Teams Technical Support Coordinator Relationship Specialty Start Date End Date Monica Argueta MD PCP - General 04/24/10 11/06/10 documented as of this encounter
--- OUTSIDE RECORDS SUMMARY | 2021-08-16 23:35 | XMS_ITS | Encounter Summary ---
:1990 Author Organization [facility] Address [address] [place] [address] Care Team Providers Name Role Phone Unavailable Primary Care Provider Unavailable Encounter Details Date Type Department Care Team Description 12/09/2006 - [facility] Esperanza Self MD [address] [address] [place] [address] (Wo rk) Social History Tobacco Use Types [...]
--- OUTSIDE RECORDS SUMMARY | 2021-08-16 23:35 | XMS_ITS | Encounter Summary ---
:1990 Author Organization [facility] Address [address] [place] [address] Care Team Providers Name Role Phone Ana Laura Castillo MD Primary Care Provider Encounter Details Date Type Department Care Team Description 06/17/2008 Office Visit [facility] - Shawanda Matthew MD [address] [facility] [address] [place] [address] [place], [place] [phone] (Wo rk) Social History Tobacco Use Types Packs/Day Years Used Date Never Assessed Sex Assigned at Date Recorded Not on file documented as of this encounter Progress Notes Shawanda Matthew - 06/15/20092035 EDT Department - Physician Summary Registration Date/Time: 06/17/2008 8:05 Time Seen: 08:23; initial patient contact. Arrived- By private vehicle. Historian- patient. HISTORY OF PRESENT ILLNESS Chief Complaint: SORE THROAT. swollen tonsils. This started about 2 days ago and is still present. Pain described as moderate. She has had a moderate sore throat (right greater then left) with pain upon swallowing. The patient has had a nasal discharge. She has had nasal congestion (for 1 week). No mouth sores. REVIEW OF SYSTEMS The patient has had a cough. She has had moderatelyenlarged right neck lymph nodes (anterior). No fever, difficulty breathing, chest pain, nausea or diarrhea. No abdominal pain, difficulty with urination, headache, fainting episodes or vomiting. PAST HISTORY Asthma. Depression. Medications: The patient's medications have been reviewed. Allergies: No known drug allergies. The patient's allergies have been reviewed. SOCIAL HISTORY Occasional smoker. No alcohol use or drug use. ADDITIONAL NOTES The nursing notes have been reviewed. PHYSICAL EXAM Appearance: Alert. No acute distress. Vital Signs: Have been reviewed. Head: Normal external inspection. Eyes: Pupils equal, round and reactive to light. Conjunctivae and eyelids normal. ENT: Ears normal. Nose normal. Right-sided tonsillar exudate, swelling and erythema. Left-sided tonsillar exudate, swelling and erythema. Lips normal. Gums normal. Neck: Normal inspection. Moderate right anterior neck lymphadenopathy present. Trachea midline. Thyroid normal. Neck supple. CVS: Normal heart rate and rhythm. Heart sounds normal. Pulses normal. Respiratory: No respiratory distress. Breath sounds normal. Chest nontender. Abdomen: Abdomen soft and nontender. No organomegaly. Skin: Normal skin color and turgor. No rash. Extremities: Extremities exhibit normal ROM. Extremities nontender. Neuro: Oriented X 3. No motor deficit. PROGRESS AND PROCEDURES E.D. Course: Taking po well, non-toxic appearing, d/c. Patient/family counseled. Disposition orders written. Disposition: Condition: stable. Discharged home. CLINICAL IMPRESSION Acute viral pharyngitis. INSTRUCTIONS Do not work tomorrow until better or go to school tomorrow until better. Drink plenty of fluids. Warnings: GENERAL WARNINGS: Return or contact your physician immediately if your condition worsens or changes unexpectedly, if not improving as expected, or if other problemsarise. Specifically return if breathing difficulty. Your Current Medications: Continue current medications. No changes in your current home medications are recommended at this time. Continue taking the following medications: Advair Zoloft Merna. OTC Medications: Acetaminophen 500 mg (available over the counter): take2 orally every 4 hours as needed for pain. Motrin IB 200 mg (available over the counter): take 3 orally every 6 hours as needed for pain. Follow-up: ANA LAURA VEGA, [facility], , [facility], [address] [place] [address], [phone]. Follow up Wednesday if not better. (Electronically signed by Shawanda Matthew M.D. 06/17/2008 10:57) Department - Nursing Summary Registration Date/Time: 06/17/2008 8:05 Initial Assessment Triage time 08:Jun 17 2008. Acuity: LEVEL 4. BP: 116 / 74. HR: 74. RR: 16. Temp: 35.8 C (tympanic). O2 saturation: 100%. Alert. --810 Aileen Marquez R.N., TAVO. Medications Advair Oral Inhaler : 1 puff, as needed (last dose yesterday). Zoloft: daily (uncertain dose, last dose yesterday). (Merna control daily). --810 Aileen Marquez R.N., TAVO. Allergies No known drug allergies. --810 Aileen Marquez R.N., TAVO. History Chief Complaint: (Pt c/o sore throat and nasal congestion x 1 week. Pt sttestes tonsils swollen x 2 days, now with white exudate). Pain level now: 6/10. (difficutly swallowing pills due to sore throat). PAST HX: Asthma. SOCIAL HX: Occasional smoker. No alcohol use. No report of abuse. (lives with grandparents). Arrived by private vehicle and accompanied by grandmother. Historian: patient. --810 Aileen Marquez R.N., TAVO. NURSING PROGRESS NOTES TYLENOL 1000 mg liq PO. MOTRIN 600 mg liq PO. . --902 Ana Laura Houser R.N., TAVO (Popcicle provided.). --902 Ana Laura Houser R.N., TAVO (Tylenol liquid provided for pt to go home with. ). --922 Ana Laura Houser R.N., TAVO. DISPOSITION / DISCHARGE Condition at departure: unchanged. No learning barriers present. Discharge instructions reviewed with the patient, family. Reviewed warnings. Reviewed referrals. Work and school note given. Patient, family verbalized understanding. The patient was discharged home. The patient left the Emergency Departm entambulatory. --923 Ana Laura Houser R.N., TAVO. Aileen Marquez R.N., TAVO Ana Laura Houser R.N., TAVO Locked/Released at 06/18/2008 10:37 by Josee Montano R.N. documented in this encounter Plan of Treatment Not on filedocumented as of this encounter Visit Diagnoses Not on filedocumented in this encounter Care Teams Chief Security Officer Relationship Specialty Start Date End Date Ana Laura Castillo MD PCP - General 07/12/08 03/25/10 [address] [place] [address] documented as of this encounter
--- OUTSIDE RECORDS SUMMARY | 2021-08-16 23:35 | XMS_ITS | Encounter Summary ---
:1990 Author Organization [facility] Address [address] [place] [address] Care Team Providers Name Role Phone Alexander Prescott PA-C Primary Care Provider Encounter Details Date Type Department Care Team Description 04/02/2010 Results Only [facility] Monica Argueta Laboratory Services - MD Kade [facility] 111 [facility] 790 [facility], [id number] [place] [address] [phone] (Wo rk) Social History Tobacco Use [...] Procedure Name Priority Date/Time Associated Comments Diagnosis ENDOMYSIAL ANTIBODY, Routine 04/02/2010 16:11 Res ults for this SERUM EST procedure are i n the results section. RETICULIN ANTIBODIES, Routine 04/02/2010 16:11 Re sults for this SERUM EST procedure are i n the results section. TISSUE TRANSGLUTAMINASE Routine 04/02/2010 16:11 Results for this ANTIBODY EST procedure are i n the results section. documented in this encounter Results TISSUE TRANSGLUTAMINASE ANTIBODY (04/02/2010 16:11 EST) Pathologist Sig nature Tissue Transglutaminase Ab 13.63 <15.01 U/ml [facility] Specimen Performing Organization Address City/State/[facility] Phon e Number [facility] [address] [place] [address] SERVICES [facility] [address] [place] [address] RETICULIN ANTIBODIES, SERUM (04/02/2010 16:11 EST) Pathologist Sig nature Reticulin Ab Negative [facility] Reference range: Negative Performed or Referred by: [facility] Dpt of Lab Med a nd Path, [address] ?? [place] [address], Lab Dir: George reid III, MD Specimen Performing Organization Address City/[facility] Phon e Number [facility] [address] [place] [address] SERVICES [facility] [address] [place] [address] ENDOMYSIAL ANTIBODY, SERUM (04/02/2010 16:11 EST) Endomysial Negative [facility] Antibodies Reference range: Negative LAB Analyte Specific Reagent ? This test was developed and its performance characteristics ? determined by Laboratory Med icine and Pathology, [place] [facility]. This test has not be en cleared or ? approved by the U.S. Food an d Drug Administration. ? Performed or Referred by: [facility] Dpt of Lab Med and Path, [address] [place] [address], Lab Dir: George Taylor III, ? MD ? Specimen Performing Organization Address City/State/[facility] Code Phon e Number [facility] [address] [place] [address] SERVICES [facility] [address] [place] [address] documented in this encounter Visit Diagnoses Not on filedocumented in this encounter Care Teams Pigeon Fancier Relationship Specialty Start Date End Date Alexander Prescott PA-C PCP - General 03/26/10 documented as of this encounter
--- OUTSIDE RECORDS SUMMARY | 2021-08-16 23:35 | XMS_ITS | Encounter Summary ---
:1990 Author Organization [facility] Address [address] [place] [address] Care Team Providers Name Role Phone Ana Laura Castillo MD Primary Care Provider Encounter Details Date Type Department Care Team Description 01/18/2009 Hospital Encounter [facility] - Scarlet Sotelo NP Other 133 [facility] [address] [place] [phone] Social History Tobacco Use Types Packs/Day Years Used Date Never Assessed Sex Assigned at Date Recorded Not on file documented as of this encounter Discharge Disposition Disposition Code Departure Means Destination Home or Self Care documented in this encounter Plan of Treatment Not on filedocumented as of this encounter Visit Diagnoses Not on filedocumented in this encounter Care Teams Helper Metal Hanging Relationship Specialty Start Date End Date Ana Laura Castillo MD PCP - General 07/12/08 03/25/10 [address] [place] [address] documented as of this encounter
--- OUTSIDE RECORDS SUMMARY | 2021-08-16 23:35 | XMS_ITS | Encounter Summary ---
:1990 Author Organization [facility] Address [address] [place] [address] Care Team Providers Name Role Phone Unavailable Primary Care Provider Unavailable Encounter Details Date Type Department Care Team Description 07/09/2008 Hospital Encounter [facility] - Alexander Prescott PA-C Other [address] [place] [phone] (Wo rk) Social History Tobacco Use Types Packs/Day Years Used Date Never Assessed Sex Assigned at Date Recorded Not on file documented as of this encounter Discharge Disposition Disposition Code Departure Means Destination Home or Self Care documented in this encounter Plan of Treatment Not on filedocumented as of this encounter Procedures Procedure Name Priority Date/Time Associated Comments Diagnosis COLLECTION DATE ERROR Routine 07/27/2008 22:52 Re sults for this EDT procedure are i n the results section. CHLAMYDIA/N. Routine 07/27/2008 22:52 Results for this GONORRHOEAE AMPLIFIED EDT proced ure are in RNA, URINE the results section. documented in this encounter Results COLLECTION DATE ERROR (07/27/2008 22:52 EDT) Orig. Collect Date: [facility] Correct Brigida Date: [facility] Date Error Noted: [facility] Refer to Accn(s): 53635 [facility] Collect Date Original collect date for [facility] Message this order was incorrect. Test(s) Affected: [facility] Specimen Performing Organization Address City/State/ZIP Code Phon e Number [facility] [address] [place] [address] SERVICES [facility] [address] [place] [address] CHLAMYDIA/GC AMPLIFIED, URINE (07/27/2008 22:52 EDT) Specimen Urine [facility] Description LAB Result No Chlamydia [facility] trachomatis DNA LAB detected by pricing manager mediated amplification. Result No Neisseria [facility] gonorrhoeae DNA LAB detected by pricing manager mediated amplification. Specimen Performing Organization Address City/State/ZIP Code Phon e Number [facility] [address] [place] [address] SERVICES [facility] [address] [place] [address] documented in this encounter Visit Diagnoses Not on filedocumented in this encounter
--- OUTSIDE RECORDS SUMMARY | 2021-08-16 23:35 | XMS_ITS | Encounter Summary ---
:1990 Author Organization [facility] Address [address] [place] [address] Care Team Providers Name Role Phone Ana Laura Castillo MD Primary Care Provider Encounter Details Date Type Department Care Team Description 06/17/2008 Before [facility]ISM Converted [facility] - Emergency, Visit ([place]) Kelsey Valentino MD [address] [place], [place] [id number] Social History Tobacco Use Types Packs/Day Years Used Date Never Assessed Sex Assigned at Date Recorded Not on file documented as of this encounter Plan of Treatment Not on filedocumented as of this encounter Procedures Procedure Name Priority Date/Time Associated Diagnosis Comme nts GROUP A STREP Routine 06/17/2008 8:51 EDT Results for this CULTURE procedure are i n the results section. documented in this encounter Results CULTURE FOR GROUP A BETA STREPTOCOCCUS (06/17/2008 8:51 EDT) Specimen Throat [facility] Description LAB Result NO GROUP A BETA [facility] STREPTOCOCCI LAB ISOLATED Report Status Final [facility] 06/19/2008 LAB Specimen Performing Organization Address City/State/ZIP Code Phon e Number [facility] [address] [place] [address] SERVICES [facility] [address] [place] [address] documented in this encounter Visit Diagnoses Not on filedocumented in this encounter Care Teams Personal Lines Advisor Relationship Specialty Start Date End Date Ana Laura Castillo MD PCP - General 07/12/08 03/25/[address] [place] [phone] documented as of this encounter
--- OUTSIDE RECORDS SUMMARY | 2021-08-16 23:35 | XMS_ITS | Encounter Summary ---
:1990 Author Organization [facility] Address [address] [place] [address] Care Team Providers Name Role Phone Alexander Prescott PA-C Primary Care Provider Encounter Details Date Type Department Care Team Description 04/15/2010 Abstract [facility] Spine Alexander Prescott PA-C [facility] [place] [address] [place] [phone] (Wo rk) Social History Tobacco Use Types [...] on filedocumented in this encounter Care Teams Adjunct Instructor In Economics Relationship Specialty Start Date End Date Alexander Prescott PA-C PCP - General 03/26/10 documented as of this encounter
--- OUTSIDE RECORDS SUMMARY | 2021-08-16 23:35 | XMS_ITS | Encounter Summary ---
:1990 Author Organization [facility] Address [address] [place] [address] Care Team Providers Name Role Phone Ana Laura Castillo MD Primary Care Provider Encounter Details Date Type Department Care Team Description 08/03/2008 Hospital Encounter [facility] - Scarlet Sotelo NP Other 133 [facility] [address] [place] [phone] Social History Tobacco Use Types Packs/Day Years Used Date Never Assessed Sex Assigned at Date Recorded Not on file documented as of this encounter Discharge Disposition Disposition Code Departure Means Destination Home or Self Care documented in this encounter Plan of Treatment Not on filedocumented as of this encounter Procedures Procedure Name Priority Date/Time Associated Diagnosis Comme nts BACTERIAL CULTURE, Routine 08/31/2008 21:06 Resul ts for this URINE EDT procedure are i n the results section. documented in this encounter Results BACTERIAL CULTURE, URINE (08/31/2008 21:06 EDT) Specimen Urine [facility] LAB Result 10,000 to 100,000 CFU/ml [facility] STAPHYLOCOCCUS SAPROPHYTICUS LAB Staphylococcus saprophyticus urinary tract infections usually respondto most antimicrobial agents except naladixic acid . Failures have been described with sulfonamides alone and with nitrofurantoin. Report Status Final [facility] 09/03/2008 LAB Specimen Performing Organization Address City/State/ZIP Code Phon e Number [facility] [address] [place] [address] SERVICES [facility] [address] [place] [address] documented in this encounter Visit Diagnoses Not on filedocumented in this encounter Care Teams Retail Selling Specialist Relationship Specialty Start Date End Date Ana Laura Castillo MD PCP - General 07/12/08 03/25/10 [address] [place] [address] documented as of this encounter
--- OUTSIDE RECORDS SUMMARY | 2021-08-16 23:35 | XMS_ITS | Encounter Summary ---
:1990 Author Organization [facility] Address [address] [place] [address] Care Team Providers Name Role Phone Alexander Prescott PA-C Primary Care Provider Encounter Details Date Type Department Care Team Description 04/02/2010 Hospital Encounter [facility] - Monica Argueta MD 111 [facility] [place] [address] [place] [phone] Other Sebas Pino MD [address] [place] [address] APRIL BARRIOS [phone] [address] [place], [place] [phone] Social History Tobacco Use Types Packs/Day Years [...] End Date lorazepam (ATIVAN) 0.5 mg Take 0.5 mg [...] on filedocumented in this encounter Care Teams Processing Associate Relationship Specialty Start Date End Date Alexander Prescott PA-C PCP - General 03/26/10 documented as of this encounter
--- OUTSIDE RECORDS SUMMARY | 2021-08-16 23:35 | XMS_ITS | Encounter Summary ---
:1990 Author Organization [facility] Address [address] [place] [address] Care Team Providers Name Role Phone Unavailable Primary Care Provider Unavailable Encounter Details Date Type Department Care Team Description 05/01/2008 Hospital Encounter [facility] - Scarlet Sotelo NP Other [address] [facility] [address] [place] [phone] Social History Tobacco Use Types Packs/Day Years Used Date Never Assessed Sex Assigned at Date Recorded Not on file documented as of this encounter Discharge Disposition Disposition Code Departure Means Destination Home or Self Care documented in this encounter Plan of Treatment Not on filedocumented as of this encounter Procedures Procedure Name Priority Date/Time Associated Diagnosis Comme nts CHENG-LIVE PANEL Routine 07/09/2008 15:20 Resul ts for this EDT procedure are i n the results section. GROUP A STREP Routine 07/09/2008 15:20 Results fo r this CULTURE EDT procedure are i n the results section. ALT Routine 07/09/2008 15:20 Results for this EDT procedure are i n the results section. documented in this encounter Results CULTURE FOR GROUP A BETA STREPTOCOCCUS (07/09/2008 15:20 EDT) Specimen Throat [facility] Description LAB Result NO GROUP A BETA [facility] STREPTOCOCCI LAB ISOLATED Report Status Final [facility] 07/11/2008 LAB Specimen Performing Organization Address City/State/ZIP Code Phon e Number [facility] [address] [place] [address] SERVICES [facility] [address] [place] [address] CHENG LVIE PANEL (07/09/2008 15:20 EDT) Anti Nuclear Ab Negative [facility] Reference range: Negative Anti VCA IgM Negative [facility] Reference range: Negative Anti EBNA Negative [facility] Reference range: Negative Interpretation [facility] Results suggest no prior exp osure to Cheng-Live Virus. ? However, a second serum spec imen should be tested ? in 10-14 days if clinically indicated. ? In most populations, at [facility] t 90% of the adult population ? will have been infected with EBV sometime in the past and ? therefore, will be positive for anti-VCA/IgG and anti-EBNA. ? Antibodies to EBNA develop 6 -8 weeks after primary infection ? and remain present for life. ??Presence of VCA/IgM antibodies ? indicates recent primary inf ection with EBV. ? Performed by: [facility] D[facility] Med [facility] [address] , [address] [place], [place] [address], Lab Dir: ??George Taylor ? III, M.D. ? Specimen Performing Organization Address City/State/ZIP Code Phon e Number [facility] [address] [place] [address] SERVICES [facility] [address] [place] [address] ALT (07/09/2008 15:20 EDT) Pathologist [facility] nature ALT 20 9 - 52 U/L [facility] Specimen Performing Organization Address City/[facility]/ZIP Code Phon e Number [facility] [address] [place] [address] SERVICES [facility] [address] [place] [address] documented in this encounter Visit Diagnoses Not on filedocumented in this encounter
--- OUTSIDE RECORDS SUMMARY | 2021-08-16 23:35 | XMS_ITS | Encounter Summary ---
:1990 Author Organization [facility] Address [address] [place] [address] Care Team Providers Name Role Phone Ana Laura Castillo MD Primary Care Provider Encounter Details Date Type Department Care Team Description 03/24/2010 Results Only [facility]- Steve Contreras, ANNA PA-C [phone] [place] [address] [address] [place] [phone] (Wo rk) Social History Tobacco Use Types [...] on filedocumented in this encounter Care Teams Engine Dispatcher Relationship Specialty Start Date End Date Ana Laura Castillo MD PCP - General 07/12/08 03/25/[address] [place] [phone] documented as of this encounter
--- OUTSIDE RECORDS SUMMARY | 2021-08-16 23:35 | XMS_ITS | Encounter Summary ---
:[address] [facility] Address [address] [place] [address] Care Team Providers Name Role Phone Ana Laura Castillo MD Primary Care Provider Encounter Details Date Type Department Care Team Description 07/05/2009 Results Only [facility]- [facility] Ana Laura Castillo MD [phone] [address] [place], [place] [address] (Wo rk) Social History Tobacco Use Types [...] Priority Date/Time Associated Comments Diagnosis RAD US BREAST 07/05/2009 10:51 Results fo r this UNILATERAL - ONE EDT procedure a re in BREAST the results section. RAD US ABDOMEN 07/05/2009 9:48 EDT Result s for this COMPLETE procedure are i n the results section. documented in this encounter Results RAD US BREAST UNILATERAL - ONE BREAST (07/05/2009 10:51 EDT) Anatomical Region Laterality Modality Other Specimen Narrative [facility] - 07/11/2009 17:24 EDT Diagnostic right breast ultrasound ??Apr 2009, 11:00 a.m. Signs and Symptoms/Comments: ??Pain and mass in the lateral aspect of the right breast. Findings left breast: The entire left br east and axilla was scanned with real-time technique. Special attent ion was paid to the area of the patient's pain in the lateral aspect of the breast at 9 o'clock. There was no definite palpable mass toda y. There were no suspicious areas seen on ultrasound. There were florencia e benign-appearing lymph nodes in the axilla. Impression left breast: Bi-Rads Category Assessment 1: Negative findings. Clinical followup of the palpa ble area is recommended and decision for biopsy should be based on c linical grounds. Screening mammography is recommended to start at age 40. The patient was told the results and rec ommendations of the study by the [employer] administrator. Addendum Begins The report was a right ultrasound, not a left. ? Addendum Ends Procedure Note 07/11/2009 Diagnostic right breast ultrasound July 05, 2009, 11:00 a.m. Signs and Symptoms/Comments: Pain and ma ss in the lateral aspect of the right breast. Findings left breast: The entire left br east and axilla was scanned with real-time technique. Special attent ion was paid to the area of the patient's pain in the lateral aspect of the breast at 9 o'clock. There was no definite palpable mass toda y. There were no suspicious areas seen on ultrasound. There were florencia e benign-appearing lymph nodes in the axilla. Impression left breast: Bi-Rads Category Assessment 1: Negative findings. Clinical followup of the palpa ble area is recommended and decision for biopsy should be based on c linical grounds. Screening mammography is recommended to start at age 40. The patient was told the results and rec ommendations of the study by the [employer] administrator. Addendum Begins The report was a right ultrasound, not a left. Addendum Ends Performing Organization Address City/State/ZIP Code Phon e Number [facility] RAD US ABDOMEN COMPLETE (07/05/2009 9:48 EDT) Anatomical Region Laterality Modality Other Specimen Narrative [facility] - 07/05/2009 10:28 EDT US ABD COMPLETE ??Jul 05, 2009 09:48:00 AM Clinical history/Comments: Mid abdominal pain, and change in stools. Comparison: None Findings: The liver is normal with respe ct to size and echotexture with a length of right lobe of 18.7 cm p robably due to a Oliva's lobe, normal variant. There is no intra or extrahepatic biliary ductal dilatation, with the common bile duct measuring 2 mm in diameter. The gallbladder is unremarkabl e without wall thickening or calculi. The right kidney measures 10.9 and the left kidney 11.5 cm in length. The kidneys are normal in sharmin earance, no hydronephrosis or visible shadowing calculi. There are no cysts. The spleen is normal in size and echotexture, measuring 6.5 x 9.3 x 4.4 cm, giving a volume of 139 mL. The pancreas is within normal limits, no pancreatic ductal dilatation. The abdominal IVC and aorta are of normal caliber. The urinary bladder is grossly normal. T here is no free fluid in the abdomen or pelvis. No dilated bowel loop s are seen. Impression: Normal abdominal ultrasound. If symptoms persist and warrant, correlation could be made with enhanced abdominal pelvic MRI ( avoiding CT and ionizing radiation in this relatively young patient). Procedure Note 07/05/2009 US ABD COMPLETE Jul 05, 2009 09:48:00 AM Clinical history/Comments: Mid abdominal pain, and change in stools. Comparison: None Findings: The liver is normal with respe ct to size and echotexture with a length of right lobe of 18.7 cm p robably due to a Oliva's lobe, normal variant. There is no intra or extrahepatic biliary ductal dilatation, with the common bile duct measuring 2 mm in diameter. The gallbladder is unremarkabl e without wall thickening or calculi. The right kidney measures 10.9 and the left kidney 11.5 cm in length. The kidneys are normal in sharmin earance, no hydronephrosis or visible shadowing calculi. There are no cysts. The spleen is normal in size and echotexture, measuring 6.5 x 9.3 x 4.4 cm, giving a volume of 139 mL. The pancreas is within normal limits, no pancreatic ductal dilatation. The abdominal IVC and aorta are of normal caliber. The urinary bladder is grossly normal. T here is no free fluid in the abdomen or pelvis. No dilated bowel loop s are seen. Impression: Normal abdominal ultrasound. If symptoms persist and warrant, correlation could be made with enhanced abdominal pelvic MRI ( avoiding CT and ionizing radiation in this relatively young patient). Performing Organization Address City/State/ZIP Code Phon e Number [facility] documented in this encounter Visit Diagnoses Not on filedocumented in this encounter Care Teams Automatic Print Developer Relationship Specialty Start Date End Date Ana Laura Castillo MD PCP - General 07/12/08 03/25/10 [address] [place] [address] documented as of this encounter
--- OUTSIDE RECORDS SUMMARY | 2021-08-16 23:35 | XMS_ITS | Encounter Summary ---
:1990 Author Organization [facility] Address [address] [place] [address] Care Team Providers Name Role Phone Ana Laura Castillo MD Primary Care Provider Alexander Prescott PA-C Primary Care Provider Monica Argueta MD Primary Care Provider Mandy Beck DO Primary Care Provider None, Provider Primary Care Provider Unavailable Noe Kurtz MD Primary Care Provider Orlando Correia MD Primary Care Provider Stephon Marquez MD Primary Care Provider Filipe Bose MD Primary Care Provider Sana Muhammad MD Primary Care Provider Jim Morales MD Primary Care Provider Encounter Details Date Type Department Care Team Description 05/29/2005 Hospital Encounter [facility] - Ra valerie Cardona MD [place] conversion [address] [facility] [address] [place] [address] [facility] [phone] RUPERTO SHARIF [phone] (Wo rk) Social History Tobacco Use Types [...] Problems Progress 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[place], dependence Vania syndrome Healthy General On track [...] your health please v isit: [email or web address]://[email or web address]/medcenter/Pages/Wellness-Resources/Pjtxlezuf-Kbaaeh-Wz documented as of this encounter Visit Diagnoses Not on filedocumented in this encounter Additional Health Concerns Infection Onset Date Last Indicated Resolved Time COVID-19 03/07/2021 03/07/2021 03/27/2021 22:15 EST documented as of this encounter Care Teams Real Estate Salesperson Relationship Specialty Start Date End Date Ana Laura Castillo MD PCP - General 07/12/08 03/25/10 [address] [place] [address] Alexander Prescott PA-C PCP - General 03/26/10 04/23/10 Monica Argueta, PCP - General 04/24/10 Mandy Beck DO PCP - General 11/07/10 03/20/12 [address] [place] [address] None, Provider PCP - General 03/21/12 03/31/12 Noe Kurtz MD PCP - General 04/01/12 05/02/13 Orlando Correia, PCP - General 05/03/13 Stephon Marquez MD PCP - General 08/06/13 11/06/15 Filipe Bose MD PCP - General 11/07/15 12/01/16 Sana Muhammad MD PCP - General 12/02/16 08/05/20 Jim Morales MD PCP - General Family Medicine - Primary 08/06/[address] [place] [phone] documented as of this encounter
--- OUTSIDE RECORDS SUMMARY | 2021-08-16 23:35 | XMS_ITS | Encounter Summary ---
:1990 Author Organization [facility] Address [address] [place] [address] Care Team Providers Name Role Phone Ana Laura Castillo MD Primary Care Provider Encounter Details Date Type Department Care Team Description 11/30/2004 Office Visit [facility] - Jacque Vazquez MD Maple conversion [address] [place], [place] [id number] [place] [phone] (Wo rk) Social History Tobacco Use Types Packs/Day Years Used Date Never Assessed Sex Assigned at Date Recorded Not on file documented as of this encounter Progress Notes Yamileth Vazquez - 05/08/2009 1144 EST Care Center - Physician Summary Registration Date/Time: 11/30/2004 12:24 Time Seen: 13:34 Arrived- By private vehicle. Historian- family. HISTORY OF PRESENT ILLNESS Chief Complaint- Injury to right and left shoulder. The injury happened 1 weeks ago FIrst had Rshoulder pain after practice with a lot of hitting 1 week ago. Pain was R shoulder, trapezius and into neck. Saw APRIL Ibarra who prescribed ibu 600 TID and arranged for appt with osteopath next week. SHetried to practice this week but couldn't runbecause arms cannot swing. This morning awoke with L shoulder and trapezius pain and necl pain. hurts in traps with any neck movement. Patient is experiencing moderate pain but denies injury to the neck. Pt repeatedly asked about any (even trivial ) head or mayra injury in last 2 weeks and denies any. REVIEW OF SYSTEMS No weakness, tingling or numbness. PAST HISTORY See nurses notes. The patient's dominant hand is the right. Medications: Advair Oral Inhaler. Albuterol Inhaler. (nasonex). Allergies: No known drug allergies. SOCIAL HISTORY Nonsmoker. No alcohol. 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 ADDITIONAL NOTES The nursing notes have been reviewed. PHYSICAL EXAM Appearance: Alert. Appears to be in pain. Vital Signs: The vital signs have been reviewed. Neck: Moderate decrease in ROM secondary to pain. No point tenderness over the cervical or thoracic spine. Back: Soft tissue tenderness in the thoracic paraspinous region (trapezious bilat. with palpable muscle spasm). Skin: Skin intact. Normal skin color. Skin warm and dry. Extremities: Normal external inspection. Shoulder soft-tissue tenderness present. Right clavicle area: No tenderness. Right acromio-clavicular joint: No tenderness. Left acromio-clavicular joint: No tenderness. Left clavicle area: No tenderness. Extremities otherwise negative. Neuro, Vascular, and Tendons: Sensation intact. Motor intact. Vascular status intact. Neuro: Oriented X 3. No motor deficit. No sensory deficit. Reflexes normal. CLINICAL IMPRESSION Muscle strain right shoulder and left shoulder. Acute pain in right upper extremity (shoulder) and left upper extremity (shoulder) (Neck). INSTRUCTIONS Apply ice intermittently (15-20 minutes at a time 4-6 times daily) as needed. No contact sports and no PE for 1 weeks. USe your Ibuprofen as instructed. If stomach becomes upset, switch to Tylenol (generic) Wear neck brace as needed. Remove for several hours a day. Gently move neck and use arms to keep muscles moving. See the osteopath as scheduled next Wednesday. Warnings: GENERAL WARNINGS: Return or contact your physician immediately if your condition worsens or changes unexpectedly, if not improvingas expected, or if other problems arise ( or see your doctor). (Electronically signed by Yamileth Vazquez M.D. 11/30/2004 15:31) Care Center - Nursing Summary Registration Date/Time: 11/30/2004 12:24 TRIAGE Initial Assessment Triage time 12:34 BP: 124 / 74 HR: 76 regular RR: 16 regular Temp: 97.3 oral --1242 Ana Alcazar,. Medications Advair Oral Inhaler. Albuterol Inhaler. (nasonex). --1242 Ana Alcazar. Allergies No known drug allergies. --1242 Ana Alcazar,. History Chief Complaint: INJURY TO LEFT SHOULDER. This occurred today. (pain radiates to clavicle & scapula ). (1 wk ago injured right shoulder playing football). Treatment SPARK PLUG ASSEMBLER: Ice and took ibuprofen. PAST HX: Asthma. --1242 Ana Alcazar,. Pain level now: 10/10. Pain level at this time described as- left side of neck and left shoulder (aths right arm is cooler). Treatment SPARK PLUG ASSEMBLER: Took ibuprofen. (600mg at 1100am). PAST HX: No history of previous surgery. Arrived by private vehicle and accompanied by family. Historian: patient and family. --1251 Mary Grace Lau R.N. PAST HX: (zoie-schlatter). --1251 Mary Grace Lau R.N. PHYSICAL ASSESSMENT Patient gowned. Alert. Oriented X 3. The patient is in severe distress. --1251 Mary Grace Lau R.N. NURSING PROGRESSNOTES Progress Cold pack applied. Patient gowned. --1242 Ana Alcazar. Soft c-collar applied. --1400 Yamileth Moreland R.N. DISPOSITION / DISCHARGE Patient reports pain level on departure as 10/10. Condition at departure: improved and stable. No barriers to learning present. Discharge instructions reviewed with the patient and parent. Patient and parent verbalized understanding. Written instructions provided in Scottish. (pt has an appt. with an osteopath next week.). The patient was discharged home and accompanied by parent. [facility] Parent driving. Departure time: 14:04 --1404 Laura Marcano L.P.N. Locked/Released at 11/30/2004 14:04 by Laura Marcano L.P.N. documented in this encounter Plan of Treatment Not on filedocumented as of this encounter Visit Diagnoses Not on filedocumented in this encounter Care Teams Rail Assembler Relationship Specialty Start Date End Date Ana Laura Castillo MD PCP - General 07/12/08 03/25/10 [address] [place] [address] documented as of this encounter
--- OUTSIDE RECORDS SUMMARY | 2021-08-16 23:35 | XMS_ITS | Encounter Summary ---
:1990 Author Organization [facility] Address [address] [place] [address] Care Team Providers Name Role Phone Unavailable Primary Care Provider Unavailable Encounter Details Date Type Department Care Team Description 12/05/2004 Hospital Encounter [facility] Sanchez Bynum Maple conversion MD [address] [place] [address] Social History Tobacco Use Types Packs/Day Years Used Date Never Assessed Sex Assigned at Date Recorded Not on file documented as of this encounter Discharge Disposition Disposition Code Departure Means Destination Auto Discharge documented in this encounter Plan of Treatment Not on filedocumented as of this encounter Procedures Procedure Name Priority Date/Time Associated Diagnosis Comme nts CERVICAL SPINE 4 OR 12/05/2004 11:33 Resu lts for this MORE VIEWS EDT procedure are i n the results section. SHOULDER 2 OR MORE 12/05/2004 11:32 Resul ts for this VIEWS EDT procedure are i n the results section. SHOULDER 2 OR MORE 12/05/2004 11:32 Resul ts for this VIEWS EDT procedure are i n the results section. documented in this encounter Results CERVICAL SPINE 4 OR MORE VIEWS (12/05/2004 11:33 EDT) Anatomical Region Laterality Modality Other Specimen Narrative [facility] - 10/05/2008 4: 26 EDT BILATERAL SHOULDER PAIN AND NECK PAIN R/O BONY ABNORMALITY LEFT AND RIGHT SHOULDER AND CERVICAL SPI NE 12/05/04 FINDINGS: AP, lateral, oblique and odont oid views of the cervical spine were performed. Multiple views of the cervical spine franklyn w no fractures. No gross foraminal stenosis is seen on the obliqu e views. No malalignment or degenerative changes identified. No othe r abnormality. IMPRESSION: Cervical spine films within normal limits with no acute abnormality or other lesion causing neur al compression. SHOULDERS: AP Y view and internal rotati on views as well as axillary views of the shoulder show no evidence o f fractures. No gross degenerative changes are identified. No other bony abnormality is seen. IMPRESSION: Normal views of both alma Schreiber 12/15/04 T 12/16/04 /carli Procedure Note Stew Baldwin MD - 10/05/2008 BILATERAL SHOULDER PAIN AND NECK PAIN R /O BONY ABNORMALITY LEFT AND RIGHT SHOULDER AND CERVICAL SPI NE 12/05/04 FINDINGS: AP, lateral, oblique and odont oid views of the cervical spine were performed. Multiple views of the cervical spine franklyn w no fractures. No gross foraminal stenosis is seen on the obliqu e views. No malalignment or degenerative changes identified. No othe r abnormality. IMPRESSION: Cervical spine films within normal limits with no acute abnormality or other lesion causing neur al compression. SHOULDERS: AP Y view and internal rotati on views as well as axillary views of the shoulder show no evidence o f fractures. No gross degenerative changes are identified. No other bony abnormality is seen. IMPRESSION: Normal views of both alma schaefer. Abdoul 12/15/04 T 12/16/04 /carli Performing Organization Address City/State/ZIP Code Phon e Number [facility] [address] [facility] [address] [facility] [address] [place], [place] [address] SHOULDER 2 OR MORE VIEWS (12/05/2004 11:32 EDT) Anatomical Region Laterality Modality Other Specimen Narrative [facility] - 10/05/2008 4: 26 EDT BILATERAL SHOULDER PAIN AND NECK PAIN R/O BONY ABNORMALITY LEFT AND RIGHT SHOULDER AND CERVICAL SPI NE 12/05/04 FINDINGS: AP, lateral, oblique and odont oid views of the cervical spine were performed. Multiple views of the cervical spine franklyn w no fractures. No gross foraminal stenosis is seen on the obliqu e views. No malalignment or degenerative changes identified. No othe r abnormality. IMPRESSION: Cervical spine films within normal limits with no acute abnormality or other lesion causing neur al compression. SHOULDERS: AP Y view and internal rotati on views as well as axillary views of the shoulder show no evidence o f fractures. No gross degenerative changes are identified. No other bony abnormality is seen. IMPRESSION: Normal views of both alma schaefer. D 12/15/04 T 12/16/04 / Procedure Note Stew Baldwin MD - 10/05/2008 BILATERAL SHOULDER PAIN AND NECK PAIN R /O BONY ABNORMALITY LEFT AND RIGHT SHOULDER AND CERVICAL SPI NE 12/05/04 FINDINGS: AP, lateral, oblique and odont oid views of the cervical spine were performed. Multiple views of the cervical spine franklyn w no fractures. No gross foraminal stenosis is seen on the obliqu e views. No malalignment or degenerative changes identified. No othe r abnormality. IMPRESSION: Cervical spine films within normal limits with no acute abnormality or other lesion causing neur al compression. SHOULDERS: AP Y view and internal rotati on views as well as axillary views of the shoulder show no evidence o f fractures. No gross degenerative changes are identified. No other bony abnormality is seen. IMPRESSION: Normal views of both alma schaefer. D 12/15/04 T 12/16/04 Performing Organization Address City/State/ZIP Code Phon e Number [facility] [address] [facility] [address] [facility] [address] [place], [place] [address] SHOULDER 2 OR MORE VIEWS (12/05/2004 11:32 EDT) Anatomical Region Laterality Modality Other Specimen Narrative [facility] - 10/05/2008 4: 26 EDT BILATERAL SHOULDER PAIN AND NECK PAIN R/O BONY ABNORMALITY LEFT AND RIGHT SHOULDER AND CERVICAL SPI NE 12/05/04 FINDINGS: AP, lateral, oblique and odont oid views of the cervical spine were performed. Multiple views of the cervical spine franklyn w no fractures. No gross foraminal stenosis is seen on the obliqu e views. No malalignment or degenerative changes identified. No othe r abnormality. IMPRESSION: Cervical spine films within normal limits with no acute abnormality or other lesion causing neur al compression. SHOULDERS: AP Y view and internal rotati on views as well as axillary views of the shoulder show no evidence o f fractures. No gross degenerative changes are identified. No other bony abnormality is seen. IMPRESSION: Normal views of both alma rs. D 12/15/04 T 12/16/04 Procedure Note Stew Baldwin MD - 10/05/2008 BILATERAL SHOULDER PAIN AND NECK PAIN R /O BONY ABNORMALITY LEFT AND RIGHT SHOULDER AND CERVICAL SPI NE 12/05/04 FINDINGS: AP, lateral, oblique and odont oid views of the cervical spine were performed. Multiple views of the cervical spine franklyn w no fractures. No gross foraminal stenosis is seen on the obliqu e views. No malalignment or degenerative changes identified. No othe r abnormality. IMPRESSION: Cervical spine films within normal limits with no acute abnormality or other lesion causing neur al compression. SHOULDERS: AP Y view and internal rotati on views as well as axillary views of the shoulder show no evidence o f fractures. No gross degenerative changes are identified. No other bony abnormality is seen. IMPRESSION: Normal views of both shoulde rs. D 12/15/04 T 12/16/04 /carli Performing Organization Address City/State/ZIP Code Phon e Number [facility] [address] [facility] [place] [address] [facility] [address] [place], [place] [address] documented in this encounter Visit Diagnoses Not on filedocumented in this encounter
--- OUTSIDE RECORDS SUMMARY | 2021-08-16 23:35 | XMS_ITS | Encounter Summary ---
:1990 Author Organization [facility] Address [address] [place] [address] Care Team Providers Name Role Phone Alexander Prescott PA-C Primary Care Provider Reason for Visit Reason Comments Neck Pain Arm Pain Right Encounter Details Date Type Department Care Team Description 04/11/2010 Office Visit [facility] aLura Foster MD Posterior neck pain Spine Program - [address] (Primary Dx) [facility] [place] [address] Honorio Rosenthal [address] [phone] (Wo rk) Social History Tobacco Use [...] - Inhaled Oxygen Concentration - - Weight 79.4 kg (175 lb) 04/11/2010 1413 EST Height 165.1 cm (5' 5) 04/11/2010 1413 EST Body Mass Index 29.12 04/11/2010 1413 EST documented in this encounter Discharge Disposition Disposition Code Departure Means Destination Auto Discharge documented in this encounter Progress Notes Laura Foster MD - 04/11/2010 1504 EST .dict documented in this encounter Plan of Treatment Not on filedocumented as of this encounter Procedures Procedure Name Priority Date/Time Associated Diagnosis Comme nts MR CERVICAL SPINE 04/25/2010 21:20 Result s for this WO CONTRAST EST procedure are i n the results section. documented in this encounter Results MR CERVICAL SPINE WO CONTRAST (04/25/2010 21:20 EST) Anatomical Region Laterality Modality Other Specimen Narrative [facility] MRI - 04/26/2010 20:28 EST Cervical Spine MR Without Contrast Clinical Indication: Neck pain following trauma. Technique: Sagittal T1, sagittal T2, tra nsaxial T2 and gradient and bilateral oblique foraminal imaging is o btained of the cervical spine region without the use of contrast, and there are no prior studies. Findings: Craniovertebral junction is no rmal. Spinal cord is unremarkable with respect to size, posit ion, and signal intensity. No focal herniation, foraminal stenosis or central canal stenosis is seen. Spinal cord is unremarkable with r espect to size, position and signal intensity. At the C6-C7 level, a tiny central disc protrusion is present. There is no significant thec al sac effacement or foraminal stenosis. At the C7-T1 level, no disc herniation, foraminal stenosis or central canal stenosis is se en. No significant foraminal stenosis is seen on dedicated oblique fo raminal imaging. Impression: Tiny central disc protrusion C6-C7 level with no significant foraminal stenosis or centra l canal stenosis. Procedure Note 04/26/2010 Cervical Spine MR Without Contrast Clinical Indication: Neck pain following trauma. Technique: Sagittal T1, sagittal T2, tra nsaxial T2 and gradient and bilateral oblique foraminal imaging is o btained of the cervical spine region without the use of contrast, and there are no prior studies. Findings: Craniovertebral junction is no rmal. Spinal cord is unremarkable with respect to size, posit ion, and signal intensity. No focal herniation, foraminal stenosis or central canal stenosis is seen. Spinal cord is unremarkable with r espect to size, position and signal intensity. At the C6-C7 level, a tiny central disc protrusion is present. There is no significant thec al sac effacement or foraminal stenosis. At the C7-T1 level, no disc herniation, foraminal stenosis or central canal stenosis is se en. No significant foraminal stenosis is seen on dedicated oblique fo raminal imaging. Impression: Tiny central disc protrusion C6-C7 level with no significant foraminal stenosis or centra l canal stenosis. Performing Organization Address City/State/ZIP Code Phon e Number [facility] MRI [facility] documented in this encounter Visit Diagnoses Diagnosis Posterior neck pain - Primary Cervicalgia Evaluation - Laura Foster MD - 04/25/2010 1038 EST [facility] [address] [place] [address] NEW PATIENT EVALUATION - 04/11/2010 PROBLEM: Right posterior neck pain. SUBJECTIVE: The patient is a self-referral for posterior neck pain. She is 19 years old. History dates back to 2004. 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 Post to this she developed torticollis and has been experiencing since that time chronic neck pain. She has been treated in [place]. I have no notes regarding this. It sounds as though she has seen Dr Duarte and has had trigger point injections to the right cervical paraspinalsinto the trapezius, although reports no sustainable relief. She has also sought treatment with acupuncture as chiropractic, which also has not provided relief. She describes the pain as posterior neck on the right radiating across the top of the shoulder and into her arm. Eighty percent of the pain she experiences is posterior neck with residual pain shoulder and arm. She also is experiencing weakness globally through the right arm and paresthesias in the index and long finger and thumb of the righthand. She experiences nonsustainable relief by lying down. Her symptoms are made worse by increasingher activities, cervical extension and lateral bending to the right. She has tried Vicodin, which has not provided any relief. She has also tried numerous nonsteroidal anti-inflammatories, Aleve and Advil, also no relief. She has a disk with her from [facility]. There are x-rays from 02/27/08, AP, lateral, obliques flexion, extension. To my eye, there is normal disk spacing, no significant degenerative changes in the facet joints. There does not appear to be any stenosis in the foramen. PAST MEDICAL HISTORY: Significant for posterior occipital lymphadenopathy and she also has a historyof anxiety spells with visual symptoms, depression, celiac disease and a thyroid nodule. PAST SURGICAL HISTORY: Repair of index finger with Dr Thmoas. ALLERGIES: PAXIL. REVIEW OF SYSTEMS: No unexplained weight loss, no fever. She continues to experience anxiety issues,intermittent visual tunneling associated with anxiety. Posterior neck pain on the right radiating into the right arm at times radiates into the breast area and lateral chest wall. SOCIAL HISTORY: She is a student at [employer]. She is a former smoker, quit 11/06/09. Denies drinking alcohol. At times uses marijuana to control her pain. Her other medications presently include Magnesium oxide and Protonix. Her office appointment was attended by her boyfriend's mother. OBJECTIVE: She weighs 175 pounds. Height 65 inches. She easily transitions from sit to stand. Gait is normal, heel-toe walking is intact, negative Romberg. Neck exam: She has palpable nodes in the right posterior occiput area. Also palpable node anterior to the sternocleidomastoid that are tender. Negative Luciano's. Active range of motion of the cervical spine: Flexion chin to chest. Increased amountof cervical extension. Rotation bilaterally is 80. Lateral bending painful to the right. With palpation, she has tenderness over the facet joints of the right midcervical area. Strength in her upper extremities is normal. Muscle stretch reflexes are 2 for biceps, triceps, pronator. Negative Mccall's, negative Adson's. Range of motion of the shoulders without limitations. Lower extremity reflexes 2+ quads, 1 Achilles. Babinskis downgoing, no ankle clonus. She has negative Phalen's, negative Tinel's median and ulnar nerve at the wrist, no atrophy of the musculature. She is large breasted. Experienced tenderness with palpation along the medial border of the right scapula. ASSESSMENT: A 19-year-old female presents with posterior neck pain radiating into the right upper extremity with right upper extremity paresthesias and weakness. She experienced a sports-related injuryin 2004 and has experienced pain since that time. She has had an MR arthrogram of the shoulder brought on disk, which is normal. She has had cervical x-rays from 02/27/08, which were reviewed, which are relatively normal with hyperlaxity noted. MEDICAL DECISION MAKING: Most probably her pain is myofascial in origin, but because of the persistence of pain and worsening symptoms with extension and tenderness across the facet joints, I recommendan MRI of the cervical spine to rule out any discogenic pathology. If this is negative, would then recommend pursuing medial branch blocks to the mid cervical facet joints on the right. She also does have enlarged lymph nodes in the posterior cervical and anterior cervical chain. I am aware she is following with Dr Freitas regarding this. I plan to see her back after the MRI has been completed. Greater than 45 minutes spent [id number] with patient with clinical exam, review of radiographic data. Greater than 25 minutes spent with education regarding above. Electronically Signed by Laura Foster MD 04/25/2010 10:37 Laura Foster MD - Laura Foster MD - JV Job ID: SM Doc ID: [id number] Ext Doc ID: [id number] cc: documented in this encounter Discontinued Medications Medication Sig Discontinue Reason Start Date End Date lorazepam (ATIVAN) 0.5 Take 0.5 mg by Patient Stopped Taking 04/11/2010 mg Tab mouth daily as needed. sertraline (ZOLOFT) 50 Take 100 mg by Patient Stopped Taking 04/11/2010 mg tablet mouth daily. documented as of this encounter Historical Medications This list may reflect changes made after this encounter. Medication Sig Dispensed Refills Start Date End Date magnesium oxide (MAG-OX) Take 400 mg by 0 011 08/10/2010 400 mg tablet mouth daily as needed. pantoprazole (PROTONIX) 40 Take 40 mg by mouth 0 08/10/2010 mg tablet daily. added in this encounter Care Teams Record Changer Relationship Specialty Start Date End Date Alexander Prescott PA-C PCP - General 03/26/10 04/23/10 documented as of this encounter
--- OUTSIDE RECORDS SUMMARY | 2021-08-16 23:35 | XMS_ITS | Encounter Summary ---
:1990 Author Organization [facility] Address [address] [place] [address] Care Team Providers Name Role Phone Unavailable Primary Care Provider Unavailable Encounter Details Date Type Department Care Team Description 12/07/2006 Hospital Encounter [facility] Calvin Thomas , Perioperative Services - MD [place] [address] [address] [place] [address] Social History Tobacco Use Types Packs/Day Years Used Date Never Assessed Sex Assigned at Date Recorded Not on file documented as of this encounter Discharge Disposition Disposition Code Departure Means Destination Home or Self Care documented in this encounter OR Notes OR Surgeon - Dena Pak MD, MD - 12/07/2006 0000 EDT PROCEDURE REPORT PT TYPE: OPPROC SERVICE DATE: 12/07/2006 SURGEON: ALFREDITO Johnson MDBenjamin Bissell, MDMichel Y Benoit, MD CATERING [place]: MD Pasha PREOPERATIVE DIAGNOSIS Left fifth digit, zone II, flexor digitorum profundus and flexor digitorum superficialis laceration with radial digital nerve laceration. POSTOPERATIVE DIAGNOSIS Left fifth digit, zone II, flexor digitorum profundus and flexor digitorum superficialis laceration with radial digital nerve laceration. PROCEDURE Left fifth digit, zone II, flexor digitorum profundus and flexor digitorum superficialis repair withrepair of the radial digital nerve. ANESTHESIA Laryngeal mask airway. INDICATIONS This pleasant, young female sustained an accidental laceration to her left fifth digit. She was seenand evaluated in clinic, and the risks and benefits of operative and nonoperative management were discussed, and she and her parents wished to proceed with operative management. Please see the [facility] chart for complete details. FINDINGS The FDP was completely lacerated overlying the proximal phalanx. The FDS had one slip which was completely lacerated and the other slip was 80% lacerated. The radial digital nerve was lacerated and theulnar digital nerve was intact. NARRATIVE The patient was positioned in the supine position on the operating room table. LMA anesthesia was obtained by the anesthesia team. A well-padded arm tourniquet was placed. The left upper extremity was prepped and draped in the usual sterile fashion. The appropriate surgical site, procedure, and patient were verified with operating room personnel. The limb was elevated and exsanguinated with an Esmarch and the tourniquet was inflated to 250 mmHg. The sutures in her traumatic laceration were removed. Her traumatic laceration was over the proximalphalanx of her fifth digit, extending from the volar-ulnar border all the way to the dorsal-radial border. A Susan-type incision was made to extend the traumatic laceration proximally and distally. Dissection was carried out under loupe magnification, which quickly identified the FDP, which was completely lacerated, and the FDS was noted to have the radial slip completely lacerated and the ulnar slip to be 80% lacerated. The radial digital nerve was lacerated and the ulnar digital nerve was intact. Subsequently, the FDP, which had come out of the chiasm, was placed back through the chiasm and theFDS. The FDP was repaired using 4-0 Prolene with two Das stitches, which made for a total of four core sutures. Subsequently, a 6-0 nylon running peritenon stitch was made to complete the repair, which was very secure. The radial slip of the FDS was repaired using a Das stitch with 4-0 Proleneand good repair was maintained. The ulnar slip of the FDS, which was very small and was 80% lacerated, was inspected. It was found to be too small to place a Das stitch, so a prwjso-ch-uhump 4-0 Prolene was placed, which did provide a good, secure repair. The A2 and A4 pulleys were intact and weremaintained in continuity. The A3 mary was released to allow for better excursion of the repair. The microscope was then brought in. The radial digital nerve was identified and the ends were freshenedup. Subsequently, it was repaired with 4-0 nylon interrupted sutures. This was done under the microscope and a good repair was made. The wound was thoroughly irrigated with normal saline. As we were pos itioning the hand for closure of the skin, it was notedthat the radial digital nerve had actually come undone. Subsequently, the microscope was brought back in and it was repaired again using 10-0 nylon interrupted sutures. We did again get a good repair and the nerve was very well approximated and quite secure. Subsequently, care was taken to maintain the finger in a slightly flexed posture and the skin was closed using 4-0 nylon interrupted vertical mattress sutures. A digital block was placed using 0.5% Marcaine. Betadine, Xeroform, sterile 4x4s, and Webril were applied. Subsequently, a very well-padded dorsal splint was placed with the fingers and wrist in a slightly flexed posture to protect the repairsand the palm was completely filled with 4x4 fluffs. The tourniquet was let down for a total tourniquet time of 74 minutes. All counts were correct at the end of the case. Dr. Thomas was present and scrubbed and participated in the entire case. TOTAL TOURNIQUET TIME 74 minutes. ESTIMATED BLOOD LOSS Minimal. SPECIMENS None. CULTURES None. DRAINS None. IMPLANTS None. COMPLICATIONS None. DISPOSITION The patient was transferred in good condition to PACU. I was present during the entire procedure. Signed by Calvin Thomas MD 12/20/2006 13:01 Rigoberto Pak MD Calvin Thomas MD - Rigoberto Pak MD P - ss Job ID: [id number] Document ID: [id number] cc: MD Rigoberto Carrera MD Susan Saferstein, MD - Rigoberto Pak MD P - ss Job ID: [id number] Document ID: [id number] cc: MD Rigoberto Carrera MD Susan Saferstein, MD documented in this encounter Plan of Treatment Not on filedocumented as of this encounter Visit Diagnoses Not on filedocumented in this encounter
--- OUTSIDE RECORDS SUMMARY | 2021-08-16 23:35 | XMS_ITS | Encounter Summary ---
:1990 Author Organization [facility] Address [address] [place] [address] Care Team Providers Name Role Phone Ana Laura Castillo MD Primary Care Provider Reason for Visit Reason Comments Neck Pain Encounter Details Date Type Department Care Team Description 10/21/2009 Office Visit [facility] ENT- Vaughn Freitas Lymphadenopathy; [facility] Thyroid nodule [address] [place], [place] [address] Social History Tobacco Use Types Packs/Day Years Used Date Current Every Day Smoker Comments: 1 pack per wk Alcohol Use Standard Drinks/Week Comments Yes 0 (1 standard drink = 0.6 oz pure alcoho l) occ Sex Assigned at Date Recorded Not on file documented as of this encounter Progress Notes Vaughn Freitas MD - 10/28/2009 8803 EDT DIVISION OF OTOLARYNGOLOGY October 21, 2009 Ana Laura Castillo MD [address] [address] Dear Ana Laura: I had the pleasure of seeing Shakir Harris in the office today and wanted to give you an overview of what was identified. The patient does have some palpable lymphadenopathy in zone 2A, upper neck bilaterally. These are hyperplastic lymph nodes, the largest of which measures 1.8 cm in greatest dimension and they have perfectly normal ultrasonographic characteristics. The thyroid demonstrates a discrete nodule in the left lobe, measuring 0.5 x 0.4 x 0.8 cm. This also has benign characteristics. I would suggest that she have a repeat ultrasound in a year in followup and I have so counseled her. This lymphadenopathy is of limited importance and I do not think there is any relationship to some of the right shoulder and neck pain that she has been experiencing. That certainly sounds to be musculoskeletal in origin and if it continues and she probably will come back to see you. Sincerely, Electronically Signed by Vaughn Freitas MD 10/28/2009 16:43 Vaughn Freitas MD - Vaughn Freitas MD - LONNIE Job ID: SM Doc ID: [id number] Ext Doc ID: [id number] cc: Ana Laura Castillo MD Vaughn Hein MD - 10/21/2009 1342 EDT Subjective: Patient ID: Mary Grace Harris is an 18 y.o. female. Chief Complaint Patient presents with ??? Neck Pain HPI This patient presents with complaints of right shoulder discomfort with radiation to the posterior neck and upper back. She recalls trauma to the right shoulder 6 years ago while playing recreational football. There is no dysphagia, odynophagia, notable mass, or hoarseness. She is a light smoker (1 ppweek/10 years) Patient Active Problem List Diagnoses Code ??? Spells 780.39GP ??? Depression 311L ??? Celiac disease 579.0 ??? Anxiety 300.00E Past Medical History Diagnosis Date ??? Tendinitis ??? Torticollis ??? Laceration 12/04/06 left 5th digit tendon,nerve laceration ??? Myofascial pain right shoulder and neck myofascial pain Past Surgical History Procedure Date ??? Finger surgery left Family History Problem Relation Age of Onset ??? Schizophrenia Mother ??? Diabetes ??? Bipolar Disorder uncle Social History Substance Use Topics ??? Tobacco Use: Yes 1 pack per wk ??? Alcohol Use: Yes occ Current outpatient prescriptions ordered prior to encounter Medication Sig Dispense Refill ??? sertraline (ZOLOFT) 50 mg tablet Take 100 mg by mouth daily. ??? lorazepam (ATIVAN) 0.5 mg Tab Take 0.5 mg by mouth daily as needed. No Known Allergies Review of Systems Constitutional: Positive for chills. Respiratory: Positive for cough. Cardiovascular: Positive for palpitations and leg swelling (ankle). Musculoskeletal: Positive for myalgias. Neurological: Positive for sensory change, focal weakness and headaches. Endo/Heme/Allergies: Bruises/bleeds easily. All other systems reviewed and are negative. - See HPI Objective: There were no vitals taken for this visit. Physical Exam Department of Otolaryngology PHYSICAL EXAMINATION CONSTITUTIONAL: VITAL SIGNS: Not reviewed APPEARANCE: The patient appears alert, cooperative, and comfortable. ABILITY TO COMMUNICATE / VOICE: Normal HEAD AND FACE: INSPECTION: Normal without apparent scars, lesions, or masses. PALPATION: There are no masses or sinus tenderness. SALIVARY GLANDS: Submandibular and Parotid glands are normal bilaterally FACIAL STRENGTH: Intact and symmetrical bilaterally EXTERNAL EAR & NOSE: No external ear or nose deformity noted EARS, NOSE, MOUTH AND THROAT: OTOSCOPY: Right external auditory canal: patent and non-inflamed Left external auditory canal: patent and non-inflamed Right tympanic membrane: intact and normally mobile without retraction, perforation or effusion Left tympanic membrane: intact and normally mobile without retraction, perforation or effusion WHISPER/TUNING FORK: Normal NOSE: normal turbinates and mucosa: septum in midline LIPS, TEETH & GUMS: normal for age ORAL CAVITY & OROPHARYNX: Normal. Wears a tongue post. HYPOPHARYNX & PHARYNGEAL GRIFFITHS: Normal mirror exam, no pooling of secretions or lesions seen LARYNX: Normal epiglottis, false vocal cords and true vocal cords (including mobility) NASOPHARYNX: Cannot visualize nasopharynx due to narrow introitus NECK: GENERAL: Supple, no asymmetry or crepitus, trachea midline THYROID: Normal LYMPHATIC: CERVICAL LYMPH NODES: No pathologic cervical lymphadenopathy noted This office note has been dictated. Assessment: Hyperplastic lymphadenopathy upper neck bilateral Thyroid nodule Plan: RV i year for follow-up U/S of thyroid Letter to PCP. There are no diagnoses linked to this encounter. documented in this encounter Procedure Notes Vaughn Freitas MD - 10/28/2009 9313 EDT DIVISION OF OTOLARYNGOLOGY PROCEDURE REPORT SERVICE DATE: 10/21/2009 ULTRASOUND REPORT: INDICATIONS FOR PROCEDURE: This patient has some lymphadenopathy and presents for assessment. She denies any pain or other particular circumstances but is a smoker. She is student and smokes 1 pack of cigarettes per week. She denies any pain with swallowing, dysphagia, hoarseness, or other new symptomatology. On examination, the patient has palpable lymphadenopathy in zone 2A, which is nontender. PROCEDURE: Utilizing a [place] iU22 system, biplanar B-mode ultrasound was performed of the neck andthyroid bilaterally. In zone 2A on the right, there are 2 adjacent lymph nodes that have a well-developed hilum and are ovoid in shape. One measures 1.1 x 0.6 x 1.5 cm and the adjacent node 1.7 x 0.6 x1.6 cm. Power Doppler demonstrates a small vessel at the hilum. Similarly in the left neck in zone 2A, there is a well-defined node measuring 1 cm transverse x 0.5 cm AP x 1.8 cm sagittal. It has a very well-developed hilum and is normal in appearance. In the left lobe of the thyroid, there is an anteriorly-located nodule in the mid inferior portion measuring 0.5 cm transverse x 0.4 cm AP x 0.8 cm sagittal. It is hypovascular to power Doppler. There is no adjacent lymphadenopathy. IMPRESSION: 1. Benign-appearing hyperplastic lymphadenopathy zone 2A bilaterally. 2. Discrete hypoechoic nodule left lobe of thyroid. Unless otherwise noted, there were no complications, no blood loss, cultures obtained, specimens removed, or drains retained. Electronically Signed by Vaughn Freitas MD 10/28/2009 16:43 Vaughn Freitas MD - Vaughn Freitas MD - NATALY Job ID: SM Doc ID: [id number] Ext Doc ID: [id number] cc: documented in this encounter Plan of Treatment Not on filedocumented as of this encounter Visit Diagnoses Diagnosis Lymphadenopathy Enlargement of lymph nodes Thyroid nodule Nontoxic uninodular goiter documented in this encounter Discontinued Medications Medication Sig Discontinue Reason Start Date End Date ALBUTEROL INHL Inhale as directed. Error 2009 ETHINYL Take by mouth daily. Error 010 ESTRADIOL/DROSPIRENONE (OCELLA ORAL) ETHINYL Take by mouth. Error 10/21/2009 ESTRADIOL/DROSPIRENONE (IVETT 28 ORAL) FLUTICASONE/SALMETEROL Inhale as directed. Error 10/21/2009 (ADVAIR HFA INHL) documented as of this encounter Care Teams [employer] Relationship Specialty Start Date End Date Ana Laura Castillo MD PCP - General 07/12/08 03/25/10 [address] [place] [address] documented as of this encounter
--- OUTSIDE RECORDS SUMMARY | 2021-08-16 23:35 | XMS_ITS | Encounter Summary ---
:1990 Author Organization [facility] Address [address] [place] [address] Care Team Providers Name Role Phone Unavailable Primary Care Provider Unavailable Encounter Details Date Type Department Care Team Description 06/28/2004 Hospital Encounter [facility]- Hollis Maharaj [facility] [place] [facility] MD Luis Enrique [address] [facility] [address] [place] [address] [facility] [place] [facility] [phone] [place] [address] (Wo rk) Social History Tobacco Use Types Packs/Day Years Used Date Never Assessed Sex Assigned at Date Recorded Not on file documented as of this encounter Discharge Disposition Disposition Code Departure Means Destination Auto Discharge documented in this encounter Plan of Treatment Not on filedocumented as of this encounter Procedures Procedure Name Priority Date/Time Associated Diagnosis Comme nts ANKLE 3 OR MORE Routine 06/28/2004 11:09 Results for this VIEWS EDT procedure are i n the results section. documented in this encounter Results ANKLE 3 OR MORE VIEWS (06/28/2004 11:09 EDT) Anatomical Region Laterality Modality Other Specimen Impressions [facility] - 11/01/2008 14 :03 EDT IMPRESSION: 1. Soft tissue swelling lateral malleolu s. 2. Likely small joint effusion. 3. No definite fracture. DESCRIPTION: Routine 3 views. There is some fullness in the pretibial space in the ankle that I suspect represents a joint effusion. The re is soft tissue swelling around the lateral malleolus and above i t. COMPARISONS: None. /[facility] Narrative [facility] - 11/01/2008 14 :03 EDT R/O RT ANKLE WHEN PLAYING BASKETBALL PT FELT ANKLE PO P RIGHT ANKLE 3 VIEWS, 06/28/04, 1110 Procedure Note Flex Gaxiola MD - 11/01/2008 R/O RT ANKLE WHEN PLAYING BASKETBALL PT FELT ANKLE PO P RIGHT ANKLE 3 VIEWS, 06/28/04, 1110 IMPRESSION IMPRESSION: 1. Soft tissue swelling lateral malleolu s. 2. Likely small joint effusion. 3. No definite fracture. DESCRIPTION: Routine 3 views. There is some fullness in the pretibial space in the ankle that I suspect represents a joint effusion. The re is soft tissue swelling around the lateral malleolus and above i t. COMPARISONS: None. /[facility] Performing Organization Address City/State/ZIP Code Phon e Number [facility] [address] [facility] [address] [facility] [address] [place], [place] [address] documented in this encounter Visit Diagnoses Not on filedocumented in this encounter
--- OUTSIDE RECORDS SUMMARY | 2021-08-16 23:35 | XMS_ITS | Encounter Summary ---
:1990 Author Organization [facility] Address [address] [place] [address] Care Team Providers Name Role Phone Unavailable Primary Care Provider Unavailable Encounter Details Date Type Department Care Team Description 03/18/2007 - Hospital Encounter [facility] - Calvin Thomas, 04/07/2007 Kelsey barker MD [address] [phone] [place] [address] Social History Tobacco Use Types Packs/Day Years Used Date Never Assessed Sex Assigned at Date Recorded Not on file documented as of this encounter Discharge Disposition Disposition Code Departure Means Destination Auto Discharge documented in this encounter Plan of Treatment Not on filedocumented as of this encounter Visit Diagnoses Not on filedocumented in this encounter
--- OUTSIDE RECORDS SUMMARY | 2021-08-16 23:35 | XMS_ITS | Encounter Summary ---
:1990 Author Organization [facility] Address [address] [place] [address] Care Team Providers Name Role Phone Ana Laura Castillo MD Primary Care Provider Encounter Details Date Type Department Care Team Description 06/28/2004 Office Visit [facility] - Zachary Sprague conversion MD [address] [facility] [address] [place] [address] [facility] [phone] [place] [address] (Wo rk) Social History Tobacco Use Types Packs/Day Years Used Date Never Assessed Sex Assigned at Date Recorded Not on file documented as of this encounter Progress Notes Shakir Maharaj MD - 05/07/20092126 EST [facility] - Physician Summary Registration Date/Time: 06/28/2004 10:23 Time Seen: 10:51 Arrived- By private vehicle. Historian- patient and grandmother. HISTORY OF PRESENT ILLNESS Chief Complaint- Injury to the right ankle. The injury happened last night. The patient sustained a twisting injury. Occurred at school. Patient is experiencing mild pain. No other injury. REVIEW OF SYSTEMS The patient complains of pain on weight bearing. No tingling or numbness. PAST HISTORY See nurses notes. Medications: See nurses notes. Allergies: See nurses notes. SOCIAL HISTORY Nonsmoker. Has good social support. ADDITIONAL NOTES The nursing notes have been reviewed. PHYSICAL EXAM Appearance: Alert. No acute distress. Vital Signs: The vital signs have been reviewed. Skin: Skin intact. Skin warm and dry. Extremities: Right ankle:moderate tenderness and swelling localized to the lateral ligaments and malleolus. Limited ROM secondary to pain. No abrasion, ecchymosis or deformity. Extremities otherwise negative. Gait: Gait not tested due to pain. Neuro, Vascular and Tendons: Vascular status intact. Sensation intact. Neuro: Oriented X 3. LABS, X-RAYS, AND EKG Lt Ankle X-ray: No fracture. Joint spaces normal. The left ankle X-ray was independently viewed by me and interpreted contemporaneously by me. PROGRESS AND PROCEDURES Patient/family counseled. Disposition: Discharged home. Condition: stable. CLINICAL IMPRESSION Sprained left ankle. INSTRUCTIONS Apply ice intermittently (15-20 minutes at a time 4-6 times daily) for two days. Use crutches as needed. Wear elastic wrap (Arun wrap) as directed as needed. Elevate affected areas above chest level fortwo days. If not improving over the next 7-10 days, see your doctor. You may find a brace (ie air cast) helpful as you resume activity. OTC Medications: Take ibuprofen (Advil, Nuprin, etc.) according to label instructions. (Electronically signed by Shakir Maharaj M.D. 07/03/2004 22:48) Care Center - Nursing Summary Registration Date/Time: 06/28/2004 10:23 TRIAGE Initial Assessment Triage time 10:33 BP: 112 / 72 HR: 72 RR: 12 Temp: 97.9 oral --Hair Vaz, Medications Advair Oral Inhaler. Albuterol Inhaler. (Rhanicort). --1036 Faiza Vaz, Allergies No known drug allergies. --1036 Faiza Vaz, History Chief Complaint: INJURY TO RIGHT ANKLE. This occurred last night. PAST HX: Asthma. SOCIAL HX: Nonsmoker. --Hair Vaz, Mechanism of injury (pt states it popped when playing basketball). Pain level now: 08/15. Treatment RIBBON CUTTER: Ice. PAST HX: No history of previous surgery. Arrived by private vehicle and accompanied by family. Historian: patient. --1049 Mary Grace Lau R.N. PHYSICAL ASSESSMENT Right ankle: moderate tenderness and swelling. Limited ROM secondary to pain. --1049 Mary Grace Lau R.N. NURSING PROGRESS NOTES Progress Cold pack applied. Extremity elevated. --1037 Faiza Vaz, Arun bandage applied to right ankle by tech. --1151 Faiza Vaz, Patient fit with crutches. --1151 Faiza Vaz, Crutch training performed by nurse; the patient demonstrated proper use (crutches adjusted for height). --1207 Yamileth Moreland R.N. DISPOSITION / DISCHARGE Condition at departure: improved. Fall risk assessment completed. Low fall risk potential (r/t crutch use, discussed using stairs and manuevers with crutches with pt and grandmother). --1208 Yamileth Moreland R.N. No barriers to learning present. Discharge instructions reviewed with the patient. Provided and reviewed written instructions (sprain care). Patient and family verbalized understanding. Written instructions provided in Occitan. The patient was discharged home and accompanied by family. The patient left the Emergency Department on crutches and via private vehicle. Parent driving. Patient has no belongings. --1209 Yamileth Moreland R.N. Locked/Released at 06/28/2004 12:09 by Yamileth Moreland R.N. documented in this encounter Plan of Treatment Not on filedocumented as of this encounter Visit Diagnoses Not on filedocumented in this encounter Care Teams Customer Relations Consultant Relationship Specialty Start Date End Date Ana Laura Castillo MD PCP - General 07/12/08 03/25/10 [facility] [place] [address] documented as of this encounter
--- OUTSIDE RECORDS SUMMARY | 2021-08-16 23:35 | XMS_ITS | Encounter Summary ---
:1990 Author Organization [facility] Address [address] [place] [address] Care Team Providers Name Role Phone Ana Laura Castillo MD Primary Care Provider Alexander Prescott PA-C Primary Care Provider Monica Argueta MD Primary Care Provider Mandy Beck DO Primary Care Provider None, Provider Primary Care Provider Unavailable Noe Kurtz MD Primary Care Provider Orlando Correia MD Primary Care Provider [phone] Stephon Marquez MD Primary Care Provider Filipe Bose MD Primary Care Provider Sana Muhammad MD Primary Care Provider Jim Morales MD Primary Care Provider Encounter Details Date Type Department Care Team Description 01/24/2007 Hospital Encounter [facility] - S Anthony Thomas Prospect MD [address] [address] [facility] [phone] [place] [address] (Wo rk) Social History Tobacco Use [...] Problems Progress 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Lamoure, dependence Vania syndrome Healthy General On track [...] please v isit: [email or web address]-Resources/Jlcvgrczd-Mebdij-Ad documented as of this encounter Visit Diagnoses Not on filedocumented in this encounter Additional Health Concerns Infection Onset Date Last Indicated Resolved Time COVID-19 03/07/2021 03/07/2021 03/27/2021 22:15 EST documented as of this encounter Care Teams Die Presser Relationship Specialty Start Date End Date Ana Laura Castillo MD PCP - General 07/12/08 03/25/10 [address] [place] [address] Alexander Prescott PA-C PCP - General 03/26/10 04/23/10 Monica Argueta, PCP - General 04/24/10 Mandy Beck DO PCP - General 11/07/10 03/20/[address] [place] [address] None, Provider PCP - General 03/21/12 03/31/12 Noe Kurtz MD PCP - General 04/01/12 05/02/13 Orlando Correia, PCP - General 05/03/13 Stephon Marquez MD PCP - General 08/06/13 11/06/15 Filipe Bose MD PCP - General 11/07/15 12/01/16 Sana Muhammad MD PCP - General 12/02/16 08/05/20 Jim Morales MD PCP - General Family Medicine - Primary 08/06/20 [address] [place] [address] documented as of this encounter
--- OUTSIDE RECORDS SUMMARY | 2021-08-16 23:35 | XMS_ITS | Encounter Summary ---
:1990 Author Organization [facility] Address [address] [place] [address] Care Team Providers Name Role Phone Unavailable Primary Care Provider Unavailable Encounter Details Date Type Department Care Team Description 01/06/2007 - Hospital Encounter [facility] [place] in, Ana Laura Ríos MD [address] [place] [address] 02/04/2007 Calvin Arreola MD [address] [place] [phone] [address] [place] [address] Social History Tobacco Use Types [...]
--- OUTSIDE RECORDS SUMMARY | 2021-08-16 23:35 | XMS_ITS | Encounter Summary ---
:1990 Author Organization [facility] Address [address] [place] [address] Care Team Providers Name Role Phone Ana Laura Castillo MD Primary Care Provider Encounter Details Date Type Department Care Team Description 06/23/[address] [facility], Mi uzma Y, Visit (Maple) Kelsey conversion [id number] [place] [address] [place] [id number] Social History Tobacco Use Types Packs/Day Years Used Date Never Assessed Sex Assigned at Date Recorded Not on file documented as of this encounter Progress Notes Calvin Thomas MD - 11/29/2008 0217 EDT [facility] PROGRESS/FOLLOWUP NOTE - 06/23/2007 PROBLEM Left small finger laceration. SUBJECTIVE Mary Grace is here in followup of her left small finger laceration. She had a laceration of her FDS and FDP tendon as well as the radial digital nerve to the small finger. At this point, she is doing fairly well. She has no functional limitation. OBJECTIVE Physical examination showed that she can make a near full fist. She lacked only approximately 10-15 degree of full flexion of her DIP joint. Passively, that motion can be obtained. She has still some decreased sensation on the radial side of her small finger with no Tinelsign along the course of the nerve. PLAN At this point, I think she is doing very well. She has regained excellent motion of her digit and has some sensation on the radial side of the small finger. I do not believe that there is much more we can do for her. I believe that she is at the medical end, and we will see her back on a p.r.n. basis. Signed by Calvin Thomas MD 07/09/2007 13:30 Calvin Thomas MD [address] [place] [address] - Calvin Thomas MD - STN Job ID: [id number] Doc ID: [id number] cc: Ana Laura Castillo MD documented in this encounter Plan of Treatment Not on filedocumented as of this encounter Visit Diagnoses Not on filedocumented in this encounter Care Teams Repairer [employer]gear Relationship Specialty Start Date End Date Ana Laura Castillo MD PCP - General 07/12/08 03/25/10 [address] [place] [address] documented as of this encounter
--- OUTSIDE RECORDS SUMMARY | 2021-08-16 23:35 | XMS_ITS | Encounter Summary ---
:1990 Author Organization [facility] Address [address] [place] [address] Care Team Providers Name Role Phone Ana Laura Castillo MD Primary Care Provider Encounter Details Date Type Department Care Team Description 04/25/2007 Before [facility] - Lacho Thomas MD, MD Converted Visit Maple conversion 111 [facility] ([facility]) 111 [facility] [address] [place] [address] [place] [address] Social History Tobacco Use Types Packs/Day Years Used Date Never Assessed Sex Assigned at Date Recorded Not on file documented as of this encounter Progress Notes Kevin Thomas MD, MD - 01/16/2009 1243 EST [facility] PROGRESS/FOLLOWUP NOTE - 04/25/2007 PROBLEM Status post left index finger laceration of flexor tendon as well as radial digital nerve, 12/07/2006. SUBJECTIVE Mary Grace returns to our office today for followup. She states she still has numbness in her finger but has had great improvements in her range of motion and is quite pleased with the progress she is making. She is accompanied by her father today. OBJECTIVE On physical exam, she has very good passive flexion of the digit still. She now almost has full flexion and extension of the PIP joint and she has active flexion of the DIP joint and missing approximately 10 degrees of active extension of the DIP joint. Overall she is able to form a fist relatively well. She still has decreased sensation of the radial aspect of her finger, however sensation has returned up to the level of the DIP crease, which is an improvement over her last exam. ASSESSMENT/PLAN The patientis overall doing well. She will continue with her hand therapy for range of motion. We would like to see her back in two months' time to assess how she is doing. Dr. Thomas personally saw and evaluated the patient and answered all of the patient's questions. saw and examined the patient with the resident/fellow. I agree with the findings and plan of care documented in the resident's/fellow's note. Signed by Calvin Thomas MD 04/29/2007 15:31 Thang Thomas MD Calvin Thomas MD [address] [place] [address] - Thang Thomas MD - STN Job ID: [id number] Doc ID: [id number] cc: Ana Laura Castillo MD - lorenzo Job ID: [id number] Doc ID: [id number] cc: Ana Laura Castillo MD documented in this encounter Plan of Treatment Not on filedocumented as of this encounter Visit Diagnoses Not on filedocumented in this encounter Care Teams Change Agent Relationship Specialty Start Date End Date Ana Laura Castillo MD PCP - General 07/12/08 03/25/[address] [place] [address] documented as of this encounter
--- OUTSIDE RECORDS SUMMARY | 2021-08-16 23:35 | XMS_ITS | Encounter Summary ---
:[address] [facility] Address [address] [place] [address] Care Team Providers Name Role Phone Unavailable Primary Care Provider Unavailable Encounter Details Date Type Department Care Team Description 09/24/2005 Hospital Encounter [facility] - Lucia Castillo, Other MD 111 [facility] [address] [place] [address] [place] [address] (Wo rk) Social History Tobacco Use Types Packs/Day Years Used Date Never Assessed Sex Assigned at Date Recorded Not on file documented as of this encounter Discharge Disposition Disposition Code Departure Means Destination Home or Self Care documented in this encounter Plan of Treatment Not on filedocumented as of this encounter Procedures Procedure Name Priority Date/Time Associated Diagnosis Comme nts MONO-TEST Routine 09/24/2005 15:00 Results for this EDT procedure are i n the results section. COMPLETE BLOOD Routine 09/24/2005 15:00 Results f or this COUNT EDT procedure are i n the results section. documented in this encounter Results MONO-TEST (09/24/2005 15:00 EDT) Pathologist Sig nature [place]-Test Neg NEG [facility] Specimen Performing Organization Address City/State/ZIP Code Phon e Number [facility] [address] [place] [address] SERVICES [facility] [address] [place] [address] (ABNORMAL) HEMAGRAM (09/24/2005 15:00 EDT) Pathologist Sig nature WBC 5.27 4.5 - 13.0 K/cmm [facility] RBC 4.85 4.10 - 5.10 M/cmm [facility] Hemoglobin 13.4 12.0 - 16.0 gm/dl [facility] HCT 39.8 36.0 - 46.0 % [facility] MCV 82 78 - 102 fl [facility] MCH 27.5 pg [facility] MCHC 33.6 gm/dl [facility] PLT 52 (L) 156 - 312 K/cmm [facility] RDW-CV 15.1 % [facility] Specimen Performing Organization Address City/State/ZIP Code Phon e Number [facility] [address] [place] [address] SERVICES [facility] [address] [place] [address] documented in this encounter Visit Diagnoses Not on filedocumented in this encounter
--- OUTSIDE RECORDS SUMMARY | 2021-08-16 23:35 | XMS_ITS | Encounter Summary ---
:1990 Author Organization [facility] Address [address] [place] [address] Care Team Providers Name Role Phone Monica Argueta MD Primary Care Provider Encounter Details Date Type Department Care Team Description 04/25/2010 Hospital Encounter [facility] - Laura Foster MD [facility] [address] [facility] [address] [facility] [address] [place] [phone] (Wo rk) Social History Tobacco Use Types [...] by mouth 0 08/10/2010 mg tablet daily. documented as of this encounter Discharge Disposition Disposition Code Departure Means Destination Home or Self [facility]pc documented in this encounter Plan of Treatment Not on filedocumented as of this encounter Visit Diagnoses Not on filedocumented in this encounter Care Teams District Manager Major Accounts Sales Relationship Specialty Start Date End Date Monica Argueta MD PCP - General 04/24/10 11/06/10 (work) documented as of this encounter
--- OUTSIDE RECORDS SUMMARY | 2021-08-16 23:35 | XMS_ITS | Encounter Summary ---
:1990 Author Organization [facility] Address [address] [place] [address] Care Team Providers Name Role Phone Ana Laura Castillo MD Primary Care Provider Encounter Details Date Type Department Care Team Description 10/17/2009 Abstract Used for ABSTRACTING Data Ana Laura Castillo MD [phone] [address] [facility] [place] 05[address] (Wo rk) Social History Tobacco Use [...] Sig Dispensed Refills Start Date End Date FLUTICASONE/SALMETEROL Inhale as directed. 0 10/21/2009 (ADVAIR HFA IN[facility]) ETHINYL Take by mouth. 0 10/21/2009 ESTRADIOL/DROSPIRENONE (IVETT 28 ORAL) ALBUTEROL INHL Inhale as directed. 0 0 10/21/2009 added in this encounter Care Teams Technical Business Systems Analyst Relationship Specialty Start Date End Date Ana Laura Castillo MD PCP - General 07/12/08 03/25/10 [address] [id number] [id number] documented as of this encounter
--- OUTSIDE RECORDS SUMMARY | 2021-08-16 23:35 | XMS_ITS | Encounter Summary ---
:1990 Author Organization [facility] Address [address] [place] [address] Care Team Providers Name Role Phone Unavailable Primary Care Provider Unavailable Encounter Details Date Type Department Care Team Description 06/17/2008 Hospital Encounter [facility], Emergency Department - [place], [place] [address] [place], [place] [id number] Social History Tobacco Use Types Packs/Day Years [...]
--- OUTSIDE RECORDS SUMMARY | 2021-08-16 23:35 | XMS_ITS | Encounter Summary ---
:1990 Author Organization [facility] Address [address] [place] [address] Care Team Providers Name Role Phone Unavailable Primary Care Provider Unavailable Encounter Details Date Type Department Care Team Description 11/23/2006 Hospital Encounter [facility] - Lucia Castillo, Other MD [address] [address] [place] [address] (Wo rk) Social History Tobacco Use Types [...]
[2021-08-16] MEDS: hydrOXYzine HCL 25 MG TAB 50 MG PO (23:57)
[2021-08-16] MEDS: Enoxaparin 40 MG/0.4 ML SYR SC (23:58)
[2021-08-17] VITALS (126 sets, daily range): BP systolic 85–143; BP diastolic 38–95; PULSE 91–122; RESP 0–34; TEMP 36.6–37.2; O2SAT 94–99
--- NOTE | 2021-08-17 | DI.RAD_ITS ---
Exam(s) XR PORTABLE CHEST AP EXAM: XR PORTABLE CHEST AP CLINICAL HISTORY: DKA TECHNIQUE: 2D digital imaging was performed. COMPARISON: CR,XR XR PORTABLE CHEST AP from 06/11/2020 FINDINGS: LUNGS: Clear. No pleural abnormality seen. HEART: Normal. AORTA: Normal. BONES: Unremarkable for age. Soft tissues: Unremarkable. IMPRESSION: No acute findings. DATA REPOSITORY: RADIATION DOSE DELIVERED:
[2021-08-17] MEDS: INSULIN REGULAR IN 0.9 % NACL 100 UNIT/100 ML BAG IV (00:25)
[2021-08-17] MEDS: POTASSIUM CHLORIDE/0.9% NACL 1,000 ML 300 MEQ IV (00:26)
[2021-08-17] MEDS: DEXTROSE 5%-0.45% SALINE 1,000 ML 150 ML IV (00:27)
[2021-08-17 00:39] LABS: Anion Gap 24.4 mmol/L (3-11); BUN 7 mg/dL (7-18); CO2 7.6 mmol/L (21.0-32.0); Calcium 7.8 mg/dL (8.5-10.1); Chloride 107 mmol/L (98-107); Glucose 399 mg/dL (74-106); Sodium 139 mmol/L (136-145)
[2021-08-17 02:57] LABS: BUN 6 mg/dL (7-18); Calcium 7.7 mg/dL (8.5-10.1); Chloride 109 mmol/L (98-107); Glucose 399 mg/dL (74-106); Potassium 3.2 mmol/L (3.5-5.1); Sodium 138 mmol/L (136-145)
[2021-08-17 04:44] LABS: Basophils % 0.4; HCT 42.5 % (36.0-46.0); HGB 13.9 g/dL (11.2-15.7); MCH 27.1 pg (27.0-33.0); MCHC 32.7 % (32.0-36.0); MCV 83 fL (80-95); MPV 10.2 fL (8.0-11.0); Platelet Count 341 10^3/uL (130-400); RBC 5.13 10^6/uL (3.93-5.22); RDW 13.3 % (11.7-14.6); RDW-SD 39.8 fL; WBC 19.18 10^3/uL (4.4-10.8)
[2021-08-17 04:52] LABS: Anion Gap 21.2 mmol/L (3-11); BUN 7 mg/dL (7-18); CO2 6.8 mmol/L (21.0-32.0); Calcium 7.7 mg/dL (8.5-10.1); Chloride 109 mmol/L (98-107); Glucose 358 mg/dL (74-106); Potassium 4.1 mmol/L (3.5-5.1); Sodium 137 mmol/L (136-145)
[2021-08-17 04:54] LABS: PHOSPHORUS < 2.0 mg/dL (2.6-4.7)
[2021-08-17 04:59] LABS: Absolute Basophil Count 0.08 10^3/uL (0.0-0.2)
[2021-08-17 05:00] LABS: Absolute Lymphocyte Count 2.69 10^3/uL (1.2-3.4); Absolute Monocyte Count 1.34 10^3/uL (0.1-0.8); Absolute Neutrophil Count 15.15 10^3/uL (1.2-6.7); Atypical Lymphocytes % 1; Diff Comment Manual Differential
[2021-08-17] MEDS: hydrOXYzine HCL 25 MG TAB PO (06:22)
[2021-08-17 07:03] LABS: Anion Gap 17.7 mmol/L (3-11); BUN 6 mg/dL (7-18); CO2 11.3 mmol/L (21.0-32.0); CREATININE 0.9 mg/dL (0.55-1.02); Calcium 8.2 mg/dL (8.5-10.1); Chloride 108 mmol/L (98-107); Glucose 297 mg/dL (74-106); Potassium 3.1 mmol/L (3.5-5.1); Sodium 137 mmol/L (136-145)
[2021-08-17] MEDS: POTASSIUM CHLORIDE/0.9% NACL 1,000 ML 150 MEQ IV (07:25)
--- NOTE | 2021-08-17 09:00 | W.PM.PROGNOT ---
Date of Service Date of service: 08/17/21 Time of Service: 09:00 Assessment and Plan Assessment and plan (1) DKA (diabetic ketoacidosis): Status: Acute Assessment and plan: Continue insulin gtt, serial chemistries. Getting close to the point of giving long acting insulin. Replete lytes. IVF. Check A1c. DM education. Diabetes is a new diagnosis. (2) Leucocytosis: Status: Acute Assessment and plan: Check lithium level. Check CXR. Recheck UA. Possibly due to DKA alone; however, leucocytosis is not new - ?underlying issue or due to lithium. (3) Hypokalemia: Status: Acute Assessment and plan: Replete K, recheck at 10 am (4) Hypophosphatemia: Status: Acute Assessment and plan: Replete (5) Bilateral calf pain: Status: Acute Assessment and plan: Check venous dopplers. Suspect this is due to electrolyte issues, however. (6) DVT prophylaxis: Status: Acute Assessment and plan: Lovenox 40 mg SC BID (7) Discharge planning issues: Status: Acute Assessment and plan: Full code Keep in ICU. Total Critical Care Time 45 minutes. Reviewed medications with pharmacy. Subjective Subjective Interval history since last seen: Feels a little short of breath and reports B calf pain. Denies dizziness, chest pain, nausea, pain elsewhere. Diagnosis of DM is new to her. Exam Narrative Exam Narrative: General: Obese female who appears tired, A&Ox3 (does not know exact date in August), cooperative, answering questions appropriately HEENT: EOMI, MMM Heart: RRR, no m/r/g Lungs: CTAB Abdomen: soft, obese, nontender Extremities: no erythema/rashes, no obvious edema - definitely, no pitting edema, no c/c. Objective Last Vital Signs Temp 36.6 C 08/17/21 00:00 Pulse 98 H 08/17/21 05:00 Resp 29 H 08/17/21 06:00 BP 126/66 08/17/21 05:00 Pulse Ox 97 08/17/21 06:10 Laboratory Results - last 24 hr 08/16/21 08/17/21 08/17/21 23:30 00:24 02:40 WBC RBC Hgb Hct MCV MCH MCHC RDW Plt Count MPV Immature Gran % Neutrophils % Lymphocytes % Atypical Lymphs % Monocytes % Eosinophils % Basophils % Nucleated RBC % Absolute Neutrophils Absolute Lymphocytes Absolute Monocytes Absolute Eosinophils Absolute Basophils Sodium Cancelled 139 138 Potassium Cancelled 3.0 L 3.2 L Chloride Cancelled 107 109 H Carbon Dioxide Cancelled 7.6 L 7.0 L Anion Gap Cancelled 24.4 H 22.0 H BUN Cancelled 7 6 L Creatinine Cancelled 1.0 1.0 Estimated GFR/1.73 m2 Cancelled >= 60.00 >= 60.00 Glucose Cancelled 399 H 399 H Calcium Cancelled 7.8 L 7.7 L Phosphorus Magnesium 08/17/21 08/17/21 08/17/21 04:30 04:30 04:30 WBC 19.18 H RBC 5.13 Hgb 13.9 Hct 42.5 MCV 83 MCH 27.1 MCHC 32.7 RDW 13.3 Plt Count 341 MPV 10.2 Immature Gran % 0.0 Neutrophils % 79.0 Lymphocytes % 13.0 Atypical Lymphs % 1 Monocytes % 7.0 Eosinophils % 0.0 Basophils % 0.4 Nucleated RBC % 0.0 Absolute Neutrophils 15.15 H Absolute Lymphocytes 2.69 Absolute Monocytes 1.34 H Absolute Eosinophils 0.00 Absolute Basophils 0.08 Sodium 137 Potassium 4.1 Chloride 109 H Carbon Dioxide 6.8 L Anion Gap 21.2 H BUN 7 Creatinine 1.0 Estimated GFR/1.73 m2 >= 60.00 Glucose 358 H Calcium 7.7 L Phosphorus < 2.0 L Magnesium 2.0 08/17/21 08/17/21 08/17/21 06:30 07:30 09:30 WBC RBC Hgb Hct MCV MCH MCHC RDW Plt Count MPV Immature Gran % Neutrophils % Lymphocytes % Atypical Lymphs % Monocytes % Eosinophils % Basophils % Nucleated RBC % Absolute Neutrophils Absolute Lymphocytes Absolute Monocytes Absolute Eosinophils Absolute Basophils Sodium 137 Cancelled Cancelled Potassium 3.1 L D Cancelled Cancelled Chloride 108 H Cancelled Cancelled Carbon Dioxide 11.3 L Cancelled Cancelled Anion Gap 17.7 H Cancelled Cancelled BUN 6 L Cancelled Cancelled Creatinine 0.9 Cancelled Cancelled Estimated GFR/1.73 m2 >= 60.00 Cancelled Cancelled Glucose 297 H Cancelled Cancelled Calcium 8.2 L Cancelled Cancelled Phosphorus Magnesium 08/17/21 08/17/21 08/17/21 11:30 13:30 15:30 WBC RBC Hgb Hct MCV MCH MCHC RDW Plt Count MPV Immature Gran % Neutrophils % Lymphocytes % Atypical Lymphs % Monocytes % Eosinophils % Basophils % Nucleated RBC % Absolute Neutrophils Absolute Lymphocytes Absolute Monocytes Absolute Eosinophils Absolute Basophils Sodium Cancelled Cancelled Cancelled Potassium Cancelled Cancelled Cancelled Chloride Cancelled Cancelled Cancelled Carbon Dioxide Cancelled Cancelled Cancelled Anion Gap Cancelled Cancelled Cancelled BUN Cancelled Cancelled Cancelled Creatinine Cancelled Cancelled Cancelled Estimated GFR/1.73 m2 Cancelled Cancelled Cancelled Glucose Cancelled Cancelled Cancelled Calcium Cancelled Cancelled Cancelled Phosphorus Magnesium 08/17/21 08/17/21 08/17/21 17:30 19:30 21:30 WBC RBC Hgb Hct MCV MCH MCHC RDW Plt Count MPV Immature Gran % Neutrophils % Lymphocytes % Atypical Lymphs % Monocytes % Eosinophils % Basophils % Nucleated RBC % Absolute Neutrophils Absolute Lymphocytes Absolute Monocytes Absolute Eosinophils Absolute Basophils Sodium Cancelled Cancelled Cancelled Potassium Cancelled Cancelled Cancelled Chloride Cancelled Cancelled Cancelled Carbon Dioxide Cancelled Cancelled Cancelled Anion Gap Cancelled Cancelled Cancelled BUN Cancelled Cancelled Cancelled Creatinine Cancelled Cancelled Cancelled Estimated GFR/1.73 m2 Cancelled Cancelled Cancelled Glucose Cancelled Cancelled Cancelled Calcium Cancelled Cancelled Cancelled Phosphorus Magnesium 08/17/21 23:30 WBC RBC Hgb Hct MCV MCH MCHC RDW Plt Count MPV Immature Gran % Neutrophils % Lymphocytes % Atypical Lymphs % Monocytes % Eosinophils % Basophils % Nucleated RBC % Absolute Neutrophils Absolute Lymphocytes Absolute Monocytes Absolute Eosinophils Absolute Basophils Sodium Cancelled Potassium Cancelled Chloride Cancelled Carbon Dioxide Cancelled Anion Gap Cancelled BUN Cancelled Creatinine Cancelled Estimated GFR/1.73 m2 Cancelled Glucose Cancelled Calcium Cancelled Phosphorus Magnesium
[2021-08-17] MEDS: POTASSIUM CHLORIDE 20 MEQ/100 ML BAG 50 MEQ IVPB ×7 (09:38→23:00)
[2021-08-17] MEDS: Lithium Carbonate 300 MG CAP 600 MG PO (09:38)
[2021-08-17] MEDS: risperiDONE 1 MG TAB PO (09:39)
[2021-08-17] MEDS: Normal Saline Flush 10 ML SYR ×4 (09:39→14:10)
[2021-08-17] MEDS: LORazepam 1 MG TAB PO ×3 (09:39→20:49)
[2021-08-17 10:03] LABS: Procalcitonin < 0.1 ng/mL
[2021-08-17 10:40] LABS: HCO3 (Venous) 13 mmol/L (23-28); O2 Sat (Venous) 94 %; TCO2 (Venous) 12 mmol/L (24-29); pCO2 (Venous) 32 mmHg (41-51); pH (Venous) 7.21 (7.31-7.41); pO2 (Venous) 64 mmHg
[2021-08-17 10:55] LABS: BUN 5 mg/dL (7-18); Calcium 8.1 mg/dL (8.5-10.1); Chloride 108 mmol/L (98-107); Glucose 234 mg/dL (74-106); Sodium 138 mmol/L (136-145)
[2021-08-17 11:02] LABS: Lithium < 0.2 mmol/l (0.6-1.2); Potassium 2.5 mmol/L (3.5-5.1)
[2021-08-17] MEDS: POTASSIUM CHLORIDE/D5-0.45NACL 1,000 ML 150 MEQ IV ×2 (11:40→19:40)
[2021-08-17] MEDS: Potassium Chloride 20 MEQ TABCR 40 MEQ PO ×2 (11:46→20:50)
[2021-08-17] MEDS: Enoxaparin 40 MG/0.4 ML SYR SC (11:46)
--- NOTE | 2021-08-17 11:57 | DI.VRAD_ITS ---
PROCEDURE INFORMATION: Exam: XR Chest Exam date and time: 08/17/2021 11:24 AM Age: 30 years old Clinical indication: Other: Dka TECHNIQUE: Imaging protocol: XR of the chest. Views: 1 view. COMPARISON: XR PORTABLE CHEST AP 06/11/2020 4:10 PM FINDINGS: Lungs: Unremarkable. No consolidation. Pleural spaces: Unremarkable. No pleural effusion. No pneumothorax. Heart/Mediastinum: Unremarkable. No cardiomegaly. Bones/joints: Unremarkable. IMPRESSION: No acute findings. Dictated and Authenticated by: Solange Collazo MD. Ordering:MUNIR Sauer MD
[2021-08-17 12:18] LABS: Bilirubin Small (Negative); Blood Trace-lysed (Negative); Clarity Clear (Clear); Glucose 100 mg/dL (Negative); Ketones >=160 mg/dL (Negative); Leukocyte Esterase Negative (Negative); Nitrite Negative (Negative); Urobilinogen 0.2 EU/dL (Up TO 0.2)
[2021-08-17 12:32] LABS: Bacteria Few HPF (Negative); Crystals Negative HPF (Negative); Epithelial Cells Many HPF (Negative); Mucus Negative (Negative); RBC 0-2 HPF (0-2)
[2021-08-17 12:33] LABS: C & S Indicated? No/Sq. Contamination
[2021-08-17 13:53] LABS: Lab Add On Test DONE
[2021-08-17 14:23] LABS: Anion Gap 14.6 mmol/L (3-11); BUN 4 mg/dL (7-18); CO2 16.4 mmol/L (21.0-32.0); Calcium 8.5 mg/dL (8.5-10.1); Chloride 108 mmol/L (98-107); Glucose 155 mg/dL (74-106); Magnesium 1.9 mg/dL (1.8-2.4); Sodium 139 mmol/L (136-145)
[2021-08-17 14:24] LABS: Potassium 2.7 mmol/L (3.5-5.1)
[2021-08-17] MEDS: INSULIN REGULAR IN 0.9 % NACL 100 UNIT/100 ML BAG 8 UNIT IV (15:44)
[2021-08-17 18:16] LABS: BE (Venous) -8 mmol/L (-2-3); HCO3 (Venous) 19 mmol/L (23-28); O2 Sat (Venous) 48 %; TCO2 (Venous) 17 mmol/L (24-29); pCO2 (Venous) 39 mmHg (41-51); pH (Venous) 7.28 (7.31-7.41); pO2 (Venous) 22 mmHg
[2021-08-17 18:26] LABS: Anion Gap 12.5 mmol/L (3-11); BUN 4 mg/dL (7-18); CO2 19.5 mmol/L (21.0-32.0); Calcium 8.3 mg/dL (8.5-10.1); Chloride 109 mmol/L (98-107); Glucose 120 mg/dL (74-106); Magnesium 1.9 mg/dL (1.8-2.4); Sodium 141 mmol/L (136-145)
--- NOTE | 2021-08-17 19:05 | PDOC.CMIN ---
- If Service Date Differs Date of service: 08/17/21 Time of Service: 19:05 Care Management Initial Assess REASON FOR HOSPITALIZATION:: DKA with new onset insulin-dependent diabetes PAST MEDICAL HISTORY/PAST SURGICAL HISTORY:: Medical History . BMI 45.0-49.9, adult. Celiac disease. Contraception management. Depo Provera since 2012. 08/2015 Requests Nexplanon. Exercise-induced asthma. Paranoid type schizophrenia, chronic state. Adult onset. Controlled on meds. Tobacco use. Surgical History . repair of lacerated finger tendon L hand. Family History . hx of family mental illness. Schizophrenia. Mother. Stroke PREVIOUS FUNCTIONAL STATUS/SOCIAL/FAMILY SUPPORTS:: Resides with significant other, [facility] in [facility]. Independent at baseline, attached to [facility] services, [facility]. CURRENT FUNCTIONAL STATUS:: Patient was sleeping when CM attempted to meet with her. Per MD documentation, patient was tired throughout the day. ADVANCE DIRECTIVES:: None on file. Has patient been provided with info about the portal/API?: Yes Did the patient sign up for the portal?: Yes CODE STATUS:: Full Code INSURANCE COVERAGE / FINANCIAL ISSUES:: DANNI. JEOVANY/BS FEP CURRENT HOME/COMMUNITY SERVICES/EQUIPMENT:: [facility] attachment, per MIESHA Castellanos. Uncertain which services are currently being provided. [facility]. PRIMARY CARE PHYSICIAN:: Need to confirm. POTENTIAL DISCHARGE NEEDS:: Coordinate increased services and supports due to new onset, insulin-dependent diabetes. Possible [facility], [facility] support; coordinate with [facility]. PATIENT/FAMILY EDUCATION NEEDS:: Review discharge instructions, discuss Ask Me Three. ANTICIPATED BARRIERS TO DISCHARGE:: None identified at this time. TRANSPORTATION:: Via private vehicle with signifant other. PLAN:: Mary Grace continues to be closely monitored and treated in the ICU. Anticipate increased services, ongoing diabetic education, support with new medications and discharge planning including possible [facility] referral, [facility] referral, [facility] collaboration.
[2021-08-17] MEDS: Melatonin 3 MG TAB 6 MG PO (21:07)
[2021-08-17] MEDS: risperiDONE 1 MG TAB 4 MG PO (21:07)
[2021-08-17] MEDS: hydrOXYzine PAMOATE 25 MG CAP PO (21:07)
[2021-08-17 22:14] LABS: BE (Venous) -8 mmol/L (-2-3); HCO3 (Venous) 18 mmol/L (23-28); O2 Sat (Venous) 97 %; TCO2 (Venous) 16 mmol/L (24-29); pCO2 (Venous) 32 mmHg (41-51); pH (Venous) 7.36 (7.31-7.41); pO2 (Venous) 77 mmHg
[2021-08-17 22:28] LABS: Anion Gap 13.4 mmol/L (3-11); BUN 3 mg/dL (7-18); CO2 18.6 mmol/L (21.0-32.0); CREATININE 0.9 mg/dL (0.55-1.02); Calcium 8.5 mg/dL (8.5-10.1); Chloride 108 mmol/L (98-107); Glucose 94 mg/dL (74-106); PHOSPHORUS < 2.0 mg/dL (2.6-4.7); Sodium 140 mmol/L (136-145)
[2021-08-17 22:36] LABS: Potassium 2.8 mmol/L (3.5-5.1)
[2021-08-18] VITALS (49 sets, daily range): BP systolic 92–116; BP diastolic 54–77; PULSE 95–138; RESP 7–28; TEMP 34.4–36.8; O2SAT 94–99
--- NOTE | 2021-08-18 | DI.US_ITS ---
Exam(s) US EXTREMITY VENOUS BI EXAM: US EXTREMITY VENOUS BI CLINICAL HISTORY: B calf pain. TECHNIQUE: Bilateral lower extremity venous ultrasound performed using grayscale, color-flow, and sp ectral Doppler analysis. COMPARISON: No exams were available for comparison FINDINGS: The bilateral common femoral, femoral and popliteal veins demonstrate normal compressibility, augment ation, and color Doppler. The posterior tibial veins are patent. IMPRESSION: Right: Negative for DVT Left: Negative for DVT DATA REPOSITORY:
[2021-08-18] MEDS: Enoxaparin 40 MG/0.4 ML SYR SC ×3 (00:09→23:49)
[2021-08-18] MEDS: POTASSIUM CHLORIDE 20 MEQ/100 ML BAG 50 MEQ IVPB ×2 (01:02→03:10)
[2021-08-18] MEDS: POTASSIUM CHLORIDE/D5-0.45NACL 1,000 ML 150 MEQ IV (02:04)
[2021-08-18 02:16] LABS: Anion Gap 9.7 mmol/L (3-11); BUN 2 mg/dL (7-18); CO2 19.3 mmol/L (21.0-32.0); CREATININE 0.8 mg/dL (0.55-1.02); Calcium 8.4 mg/dL (8.5-10.1); Chloride 110 mmol/L (98-107); Glucose 143 mg/dL (74-106); PHOSPHORUS < 2.0 mg/dL (2.6-4.7); Potassium 4.1 mmol/L (3.5-5.1); Sodium 139 mmol/L (136-145)
[2021-08-18] MEDS: INSULIN REGULAR IN 0.9 % NACL 100 UNIT/100 ML BAG 7 UNIT IV (03:38)
[2021-08-18 05:38] LABS: BE (Venous) -6 mmol/L (-2-3); HCO3 (Venous) 18 mmol/L (23-28); O2 Sat (Venous) 99 %; TCO2 (Venous) 17 mmol/L (24-29); pCO2 (Venous) 30 mmHg (41-51); pO2 (Venous) 110 mmHg
[2021-08-18 05:52] LABS: Anion Gap 9.3 mmol/L (3-11); BUN 1 mg/dL (7-18); CO2 20.7 mmol/L (21.0-32.0); CREATININE 0.8 mg/dL (0.55-1.02); Calcium 8.2 mg/dL (8.5-10.1); Chloride 108 mmol/L (98-107); Glucose 156 mg/dL (74-106); Potassium 3.6 mmol/L (3.5-5.1); Sodium 138 mmol/L (136-145)
[2021-08-18 05:57] LABS: Abs Immature Grans 0.06 10^3/uL (0.0-0.06); Absolute Basophil Count 0.05 10^3/uL (0.0-0.2); Absolute Eosinophil Count 0.04 10^3/uL (0.0-0.7); Absolute Lymphocyte Count 3.52 10^3/uL (1.2-3.4); Absolute Monocyte Count 0.83 10^3/uL (0.1-0.8); Absolute Neutrophil Count 5.66 10^3/uL (1.2-6.7); Basophils % 0.5; Eosinophils % 0.4; HCT 38.3 % (36.0-46.0); HGB 12.9 g/dL (11.2-15.7); Immature Grans % 0.6; Lymphocytes % 34.6; MCH 27.2 pg (27.0-33.0); MCHC 33.7 % (32.0-36.0); MCV 81 fL (80-95); MPV 10.3 fL (8.0-11.0); Monocytes % 8.2; Neutrophils % 55.7; Platelet Count 234 10^3/uL (130-400); RBC 4.75 10^6/uL (3.93-5.22); RDW 13.3 % (11.7-14.6); RDW-SD 39.2 fL; WBC 10.16 10^3/uL (4.4-10.8)
[2021-08-18 06:15] LABS: Hemoglobin A1C 10.5 % (<5.7)
--- NOTE | 2021-08-18 08:44 | W.PULMCC ---
Documented by User: Merle Lovelace 08/18/21 16:02 General Date of Service Date of service: 08/18/21 Time of Service: 08:30 Admit Date Admit Date: 08/16/2021 Reason for Admission to ICU: DKA S/p Endotracheal intubation Hypokalemia Nausea and vomiting due to hyperglycemia Paranoid delusion ? Assessment and Plan Assessment and plan (1) DKA (diabetic ketoacidosis): Status: Acute Assessment and plan: Patient will receive weight based long acting insulin coverage with Glargine as well as Lispro AC and corrective coverage of CGM based on her weight of around 70 kg, she would require 35 units of Lantus per day. She would also require a total of 35 units of Lispro spread over 24 hours (12 units TID scheduled) She would still require corrective Lispro dosing based of glucose AC However, because this patient is insulin naive, she will require careful monitoring and adjustments to her regimen. Stop insulin gttes and transition to POC capillary glucose monitoring test (finger stick) AC and HS DM education. Diabetes is a new diagnosis. (2) Leucocytosis: Status: Acute Assessment and plan: Resolved Chest XR and UA showed not infectious processes (3) Hypokalemia: Status: Acute Assessment and plan: Replete K and resolved (4) Hypophosphatemia: Status: Acute Assessment and plan: Repleted with scheduled oral and rechecking today (5) Bilateral calf pain: Status: Acute Assessment and plan: as well as edema Bilateral Venous doppler is ordered for today (6) DVT prophylaxis: Status: Acute Assessment and plan: Lovenox 40 mg SC BID (7) Discharge planning issues: Status: Acute Assessment and plan: Full code Keep in ICU for today as this patient is insulin naive and needs close monitoring to adjust her new regimen. . Recommendations I&O: Intake & Output 08/15/21 08/16/21 08/17/21 08/18/21 23:59 23:59 23:59 23:59 Intake Total 4244.868 / 4244.868 2412.208 / 2412.208 Output Total 3200 / 3200 2500 / 2500 Balance 1044.868 / 1044.868 -87.792 / -87.792 Weight 305 lb 8.971 oz Code Status: Resuscitation Status Full Code Subjective Critical and life-threatening events over the past 24 hours: This morbidly obese 30-year-old lady with a history of mental illness was transferred from [facility] with DKA and new onset type 1 diabetes mellitus. She is now s/p extubation on RA w/o respiratory distress. Insulin drip in progress at the time of the interview as per protocol..? Exam Narrative Exam Narrative: patient is alert and oriented X4 w/o neuro deficit, skin is pink w/o cyanosis. Speech and memory are normal. Resp Effort & Inspection: normal respiratory effort, able to speak in complete sentences and cough Quality of cough: wet Auscultation: clear to auscultation bilaterally (To upper posterior lobes), crackles bilaterally in the lower lung [place] and diminished lung sounds bilaterally in the lower lung [place] Cardio Rhythm: regular rhythm and other (SR) Extrem General: edema Laterality: bilateral (legs) Psych Mental Status: mental status grossly normal Most Recent VS/Results Last Vital Signs Temp 98.2 F 08/18/21 04:32 Pulse 97 H 08/18/21 06:00 Resp 23 08/18/21 05:15 BP 102/62 08/18/21 06:00 Pulse Ox 96 08/18/21 06:45 Laboratory Results - last 24 hr 08/17/21 08/17/21 08/17/21 06:30 10:25 10:25 WBC RBC Hgb Hct MCV MCH MCHC RDW Plt Count MPV Immature Gran % Neutrophils % Lymphocytes % Monocytes % Eosinophils % Basophils % Nucleated RBC % Absolute Neutrophils Absolute Lymphocytes Absolute Monocytes Absolute Eosinophils Absolute Basophils VBG pH 7.21 L VBG pCO2 32 L VBG pO2 64 VBG HCO3 13 L VBG Total CO2 12 L VBG O2 Saturation 94 VBG Base Excess < -15 L Sodium 138 Potassium 2.5 L* Chloride 108 H Carbon Dioxide 13.0 L Anion Gap 17.0 H BUN 5 L Creatinine 1.0 Estimated GFR/1.73 m2 >= 60.00 Glucose 234 H Hemoglobin A1c Calcium 8.1 L Phosphorus Magnesium 2.0 Procalcitonin < 0.1 Urine Color Urine Clarity Urine pH Ur Specific [place] Urine Protein Urine Ketones Urine Blood Urine Nitrite Urine Bilirubin Urine Urobilinogen Ur Leukocyte Esterase Urine RBC Urine WBC Ur Epithelial Cells Urine Crystals Urine Bacteria Urine Casts Urine Mucus Ur Culture Indicated? Urine Glucose [place] Add-On Test Request 08/17/21 08/17/2122 10:25 11:30 14:05 WBC RBC Hgb Hct MCV MCH MCHC RDW Plt Count MPV Immature Gran % Neutrophils % Lymphocytes % Monocytes % Eosinophils % Basophils % Nucleated RBC % Absolute Neutrophils Absolute Lymphocytes Absolute Monocytes Absolute Eosinophils Absolute Basophils VBG pH VBG pCO2 VBG pO2 VBG HCO3 VBG Total CO2 VBG O2 Saturation VBG Base Excess Sodium 139 Potassium 2.7 L* Chloride 108 H Carbon Dioxide 16.4 L Anion Gap 14.6 H BUN 4 L Creatinine 1.0 Estimated GFR/1.73 m2 >= 60.00 Glucose 155 H Hemoglobin A1c Calcium 8.5 Phosphorus Magnesium 1.9 Procalcitonin Urine Color Yellow Urine Clarity Clear Urine pH 6.0 Ur Specific [place] 1.020 Urine Protein 30 H Urine Ketones >=160 H Urine Blood Trace-lysed H Urine Nitrite Negative Urine Bilirubin Small H Urine Urobilinogen 0.2 Ur Leukocyte Esterase Negative Urine RBC 0-2 Urine WBC 3-5 Ur Epithelial Cells Many Urine Crystals Negative Urine Bacteria Few Urine Casts Comment Urine Mucus Negative Ur Culture Indicated? No/Sq. Contamination Urine Glucose 100 [place] < 0.2 L Add-On Test Request 08/17/21 08/17/21 08/17/21 18:00 18:00 22:10 WBC RBC Hgb Hct MCV MCH MCHC RDW Plt Count MPV Immature Gran % Neutrophils % Lymphocytes % Monocytes % Eosinophils % Basophils % Nucleated RBC % Absolute Neutrophils Absolute Lymphocytes Absolute Monocytes Absolute Eosinophils Absolute Basophils VBG pH 7.28 L VBG pCO2 39 L VBG pO2 22 VBG HCO3 19 L VBG Total CO2 17 L VBG O2 Saturation 48 VBG Base Excess -8 L Sodium 141 140 Potassium 3.0 L 2.8 L* Chloride 109 H 108 H Carbon Dioxide 19.5 L 18.6 L Anion Gap 12.5 H 13.4 H BUN 4 L 3 L Creatinine 1.0 0.9 Estimated GFR/1.73 m2 >= 60.00 >= 60.00 Glucose 120 H 94 Hemoglobin A1c Calcium 8.3 L 8.5 Phosphorus < 2.0 L Magnesium 1.9 2.0 Procalcitonin Urine Color Urine Clarity Urine pH Ur Specific [place] Urine Protein Urine Ketones Urine Blood Urine Nitrite Urine Bilirubin Urine Urobilinogen Ur Leukocyte Esterase Urine RBC Urine WBC Ur Epithelial Cells Urine Crystals Urine Bacteria Urine Casts Urine Mucus Ur Culture Indicated? Urine Glucose [place] Add-On Test Request 08/17/21 08/17/21 08/18/21 22:10 Unknown 01:58 WBC RBC Hgb Hct MCV MCH MCHC RDW Plt Count MPV Immature Gran % Neutrophils % Lymphocytes % Monocytes % Eosinophils % Basophils % Nucleated RBC % Absolute Neutrophils Absolute Lymphocytes Absolute Monocytes Absolute Eosinophils Absolute Basophils VBG pH 7.36 VBG pCO2 32 L VBG pO2 77 VBG HCO3 18 L VBG Total CO2 16 L VBG O2 Saturation 97 VBG Base Excess -8 L Sodium 139 Potassium 4.1 D Chloride 110 H Carbon Dioxide 19.3 L Anion Gap 9.7 BUN 2 L Creatinine 0.8 Estimated GFR/1.73 m2 >= 60.00 Glucose 143 H Hemoglobin A1c Calcium 8.4 L Phosphorus < 2.0 L Magnesium 2.0 Procalcitonin Urine Color Urine Clarity Urine pH Ur Specific [place] Urine Protein Urine Ketones Urine Blood Urine Nitrite Urine Bilirubin Urine Urobilinogen Ur Leukocyte Esterase Urine RBC Urine WBC Ur Epithelial Cells Urine Crystals Urine Bacteria Urine Casts Urine Mucus Ur Culture Indicated? Urine Glucose [place] Add-On Test Request DONE 08/18/21 08/18/21 08/18/21 05:32 05:32 05:32 WBC RBC Hgb Hct MCV MCH MCHC RDW Plt Count MPV Immature Gran % Neutrophils % Lymphocytes % Monocytes % Eosinophils % Basophils % Nucleated RBC % Absolute Neutrophils Absolute Lymphocytes Absolute Monocytes Absolute Eosinophils Absolute Basophils VBG pH 7.40 VBG pCO2 30 L VBG pO2 110 VBG HCO3 18 L VBG Total CO2 17 L VBG O2 Saturation 99 VBG Base Excess -6 L Sodium 138 Potassium 3.6 Chloride 108 H Carbon Dioxide 20.7 L Anion Gap 9.3 BUN 1 L Creatinine 0.8 Estimated GFR/1.73 m2 >= 60.00 Glucose 156 H Hemoglobin A1c 10.5 H Calcium 8.2 L Phosphorus Magnesium 2.0 Procalcitonin Urine Color Urine Clarity Urine pH Ur Specific [place] Urine Protein Urine Ketones Urine Blood Urine Nitrite Urine Bilirubin Urine Urobilinogen Ur Leukocyte Esterase Urine RBC Urine WBC Ur Epithelial Cells Urine Crystals Urine Bacteria Urine Casts Urine Mucus Ur Culture Indicated? Urine Glucose [place] Add-On Test Request 08/18/21 05:32 WBC 10.16 RBC 4.75 Hgb 12.9 Hct 38.3 MCV 81 MCH 27.2 MCHC 33.7 D RDW 13.3 Plt Count 234 MPV 10.3 Immature Gran % 0.6 Neutrophils % 55.7 Lymphocytes % 34.6 Monocytes % 8.2 Eosinophils % 0.4 Basophils % 0.5 Nucleated RBC % 0.0 Absolute Neutrophils 5.66 Absolute Lymphocytes 3.52 H Absolute Monocytes 0.83 H Absolute Eosinophils 0.04 Absolute Basophils 0.05 VBG pH VBG pCO2 VBG pO2 VBG HCO3 VBG Total CO2 VBG O2 Saturation VBG Base Excess Sodium Potassium Chloride Carbon Dioxide Anion Gap BUN Creatinine Estimated GFR/1.73 m2 Glucose Hemoglobin A1c Calcium Phosphorus Magnesium Procalcitonin Urine Color Urine Clarity Urine pH Ur Specific [place] Urine Protein Urine Ketones Urine Blood Urine Nitrite Urine Bilirubin Urine Urobilinogen Ur Leukocyte Esterase Urine RBC Urine WBC Ur Epithelial Cells Urine Crystals Urine Bacteria Urine Casts Urine Mucus Ur Culture Indicated? Urine Glucose [place] Add-On Test Request Review of Systems Narrative: Patient in bed w/o signs and symptoms of distress.She is ccoherent and able to recall nausea vomiting precluding her from eating 8 days prior to admission, and verbalizes the desire to eat. . Constitutional Constitutional: Reports system reviewed and no additional complaints, except as documented, Denies fever(s) and Denies poor appetite Eyes Eyes: Reports blurry vision and Reports change in vision ENT Ears, Nose, Mouth, and Throat: Reports system reviewed and no additional complaints, except as documented Cardiovascular Cardiovascular: Reports system reviewed and no additional complaints, except as documented, Denies rapid heart rate, Reports leg edema and Denies dyspnea Respiratory Respiratory: Reports cough and Denies dyspnea Gastrointestinal Gastrointestinal: Denies nausea and Denies vomiting Genitourinary Genitourinary: Denies difficulty voiding Comments: Denies burning upon urination Musculoskeletal Musculoskeletal: Reports system reviewed and no additional complaints, except as documented Neurologic Neurologic: Reports system reviewed and no additional complaints, except as documented and Reports as per HPI Psychiatric Psychiatric: Reports as per HPI Endocrine Endocrine: Reports system reviewed and no additional complaints, except as documented and Reports as per HPI Time spent with patient Time spent in Critical Care: 40 Time spent in Critical care included: Chart review, Documenting critically ill care, Time at immediate bedside and Discussing critically ill care with other medical staff Documented by User: Nadiya Stone MD 08/18/21 16:18 Assessment and Plan Assessment and plan (1) DKA (diabetic ketoacidosis): Status: Acute (2) Leucocytosis: Status: Acute (3) Hypokalemia: Status: Acute (4) Hypophosphatemia: Status: Acute (5) Bilateral calf pain: Status: Acute (6) DVT prophylaxis: Status: Acute (7) Discharge planning issues: Status: Acute Assessment and plan: Full code Keep in ICU for today as this patient is insulin naive and needs close monitoring to adjust her new regimen. Patient seen and examind with TECHNICAL SERVICE REPRESENTATIVE student. My documentation is bold and italics. Nadiya Stone [facility] This is a 30 yo female with no known prior diabetes diagnosis who is admitted to the ICU for DKA. I am unclear if this is true DKA or hyperglycemia since I do not see a blood ketone level. Either way her HbA1C is elevated over 10 and based on her insulin drip needs she will need a substantial amount of subq insulin. Weight based dosing would require her to have 35U Lantuc and probably 10U prandial insulin. This is much lower that what she is currently receiving. We will start with this an assess her response. She should also be written for a full diet and hopefully taken off of the insulin drip after bridging with Lantus. Recommendations Pulmonary: No acute concerns Cardiac: No acute concerns Renal: No acute concerns Daily Fluid Goal:: even GI Nutrition: OK to start with diabetic diet Infectious Disease: No acute concerns Hematologic: No acute concerns Neurologic: Continue psych home psych meds Endocrine: New onset DM with DKA - recommend 35 U Lantus and 10U prandial - recommend SSI - recommend stopping insulin drip after bridging with Lantus and after she eats - recommend close f/u with PCP and diabetes education Lines: PIV Prophylaxis: Lovenox Subjective Critical and life-threatening events over the past 24 hours: This morbidly obese 30-year-old lady with a history of mental illness was transferred from [facility] with DKA and new onset type 1 diabetes mellitus. She is now s/p extubation on RA w/o respiratory distress. Insulin drip in progress at the time of the interview as per protocol..? This is a 30 yo female with no prior known diabetes who is a transfer from [facility] for DKA. She does have a significant psychiatric history. She states she was feeling ill and had poor PO intake for a week prior to admission. She had ketones in her UA, however no blood ketones were tested. She was admitted and put on the DKA insulin drip protocol, but did not received any long acting subq insulin. This morning her labs are improved (phos needs attention) and she remains o nthe insulin drip at 8.5. She is feeling better and endorses hunger. Exam Narrative Exam Narrative: patient is alert and oriented X4 w/o neuro deficit, skin is pink w/o cyanosis. Speech and memory are normal. mild bibasilar crackles present. RRR no murmurs. Non distended abdomen. Time spent with patient Time spent in Critical Care: 45
[2021-08-18] MEDS: Potassium Chloride 20 MEQ TABCR 40 MEQ PO ×2 (09:25→20:50)
[2021-08-18] MEDS: Insulin Glargine 300 UNITS/3 ML PEN 35 UNITS SC (09:25)
[2021-08-18] MEDS: risperiDONE 1 MG TAB PO (09:25)
[2021-08-18] MEDS: Lithium Carbonate 300 MG CAP 600 MG PO (09:25)
[2021-08-18] MEDS: LORazepam 1 MG TAB PO ×3 (09:25→20:49)
[2021-08-18] MEDS: Insulin Aspart 300 UNITS/3 ML PEN SC ×3 (11:53→17:36)
--- NOTE | 2021-08-18 12:31 | DM INPTCON_ITS ---
Date of service: 08/18/21 Time of Service: 12:31 Diabetes Inpatient Consult Reason for Visit: dm DESCRIPTION/ASSESSMENT: Met with Mary Grace in ICU today. She reports that she typically only eats 1 meal daily- usually take out from [place] or [employer] restaurant- which typically lasts 2 days. She drinks orange juice and milk during day. She reports not eating dinner due to financial reasons. Reviewed how insulin and carb intake are connected and importance of eating 3 meals daily to regulate blood sugars. Encouraged her to stop drinking large amounts of OJ and milk due to high sugar content. I am unable to place Dexcom 6 CGM on her today as she does not have an i phone- recommend script for Casandra 2 Continuous Glucose Monitor with reader Mary Grace lives in walking distance to local [employer]. We discussed meals she can make with [employer] foods that are healthy for diabetic. In view of her insulin naive circumstance, agree with Pulmonary note indicating she should be started on 35 units lantus ands 10 units lispro at meals. May benefit from Trulicity or ozempic as well as may help with weight loss. INTERVENTION: Will provide additional diabetic teaching on 08/19/21 and will encourage Mary Grace to follow up with hospice educator in [place]. PLAN: Will support and educate Time Spent in Nutritional Counseling and Treatment: 20
--- NOTE | 2021-08-18 12:41 | DM INPTCON_ITS ---
Date of service: 08/18/21 Time of Service: 12:43 Diabetes Inpatient Consult Reason for Visit: dm DESCRIPTION/ASSESSMENT: Met with Mary Grace in ICU today. She reports that she typically only eats 1 meal daily- usually take out from [place] or [employer] restaurant- which typically lasts 2 days. She drinks orange juice and milk during day. She reports not eating dinner due to financial reasons. Reviewed how insulin and carb intake are connected and importance of eating 3 meals daily to regulate blood sugars. Encouraged her to stop drinking large amounts of OJ and milk due to high sugar content. I am unable to place Dexcom 6 CGM on her today as she does not have an i phone- recommend script for Casandra 2 Continuous Glucose Monitor with reader Mary Grace lives in walking distance to local [employer]. We discussed meals she can make with [employer] foods that are healthy for diabetic. Mary Grace reports she does not have Celiac disease. Recommend celiac panel to rule out. Will provide meal preferences. In view of her insulin naive circumstance, agree with Pulmonary note indicating she should be started on 35 units lantus ands 10 units lispro at meals. May benefit from Trulicity or ozempic as well as may help with weight loss. INTERVENTION: Will provide additional diabetic teaching on 08/19/21 and will encourage Mary Grace to follow up with certified adaptive physical educator in [place]. Celiac panel at next blood draw. Remove gluten allergy per celiac panel PLAN: Will support and educate Time Spent in Nutritional Counseling and Treatment: 20
--- NOTE | 2021-08-18 14:24 | NUR.NOTE ---
Offered patient a shower. Patient refused at this time. Patient states she is tired and is fine with the sponge bath she gave herself earlier. Nursing Note:
--- NOTE | 2021-08-18 16:09 | PDOC.CMPRO ---
- If Service Date Differs Date of service: 08/18/21 Time of Service: 16:09 Care Management Progress Note S/O: Mary Grace continues to be closely monitored and treated in the ICU, she is being closely followed by DE/Nutrition with CGM and diet recommendations. CM continues to follow. A: 30 year old female admitted to [facility] 08/16/21 for DKA with new onset insulin dependent diabetes P: Mary Grace continues to be closely monitored and treated in the ICU. Anticipate increased services, ongoing diabetic education, support with new medications and discharge planning including possible [facility] referral, [facility]NA referral, [facility] collaboration.
--- NOTE | 2021-08-18 18:19 | W.PM.PROGNOT ---
Date of Service Date of service: 08/18/21 Time of Service: 18:19 Assessment and Plan Assessment and plan (1) DKA (diabetic ketoacidosis): Status: Acute Assessment and plan: Anion Gap closed. Stopped IV insulin and D51/2NS. Basal/bolus insulin initiated. Advanced diet to full diabetic diet A1c 10.4 DM education. Diabetes is a new diagnosis. (2) Leucocytosis: Status: Acute Assessment and plan: Now normalized w/o treatment. Likely d/t stressor DKA. (3) Hypokalemia: Status: Acute Assessment and plan: Normalized on replacement tx. BMP in AM. (4) Hypophosphatemia: Status: Acute Assessment and plan: Replete with oral phosphorus (5) Bilateral calf pain: Status: Acute Assessment and plan: Today stating both legs are aching diffusely. No DVT on bilateral US. (6) DVT prophylaxis: Status: Acute Assessment and plan: Lovenox 40 mg SC BID (7) Discharge planning issues: Status: Acute Assessment and plan: Full code Changed to Med-Surg status . Subjective Subjective Patient reports: no new complaints and afebrile; denies nausea, vomiting or shortness of breath Exam Const General: cooperative and no acute distress Nutritional Appearance: obese Orientation: oriented x3 Eyes General: appearance normal, both eyes and all related structures Sclera: sclerae normal Resp Effort & Inspection: normal respiratory effort Auscultation: clear to auscultation bilaterally Cardio Rate: regular rate Rhythm: regular rhythm Heart Sounds: S1 normal and S2 normal GI Inspection: obesity Palpation: soft and nontender Skin General skin exam: no rashes or lesions noted Extrem General: no pedal edema and other (Diffuse bilateral leg aches) Objective Last Vital Signs Temp 34.4 C L 08/18/21 16:08 Pulse 121 H 08/18/21 15:36 Resp 25 H 08/18/21 15:36 BP 109/54 L 08/18/21 15:36 Pulse Ox 96 08/18/21 15:36 Laboratory Results - last 24 hr 08/17/21 08/17/21 08/17/21 18:00 22:10 22:10 WBC RBC Hgb Hct MCV MCH MCHC RDW Plt Count MPV Immature Gran % Neutrophils % Lymphocytes % Monocytes % Eosinophils % Basophils % Nucleated RBC % Absolute Neutrophils Absolute Lymphocytes Absolute Monocytes Absolute Eosinophils Absolute Basophils VBG pH 7.36 VBG pCO2 32 L VBG pO2 77 VBG HCO3 18 L VBG Total CO2 16 L VBG O2 Saturation 97 VBG Base Excess -8 L Sodium 141 140 Potassium 3.0 L 2.8 L* Chloride 109 H 108 H Carbon Dioxide 19.5 L 18.6 L Anion Gap 12.5 H 13.4 H BUN 4 L 3 L Creatinine 1.0 0.9 Estimated GFR/1.73 m2 >= 60.00 >= 60.00 Glucose 120 H 94 Hemoglobin A1c Calcium 8.3 L 8.5 Phosphorus < 2.0 L Magnesium 1.9 2.0 08/18/21 08/18/21 08/18/21 01:58 05:32 05:32 WBC RBC Hgb Hct MCV MCH MCHC RDW Plt Count MPV Immature Gran % Neutrophils % Lymphocytes % Monocytes % Eosinophils % Basophils % Nucleated RBC % Absolute Neutrophils Absolute Lymphocytes Absolute Monocytes Absolute Eosinophils Absolute Basophils VBG pH 7.40 VBG pCO2 30 L VBG pO2 110 VBG HCO3 18 L VBG Total CO2 17 L VBG O2 Saturation 99 VBG Base Excess -6 L Sodium 139 Potassium 4.1 D Chloride 110 H Carbon Dioxide 19.3 L Anion Gap 9.7 BUN 2 L Creatinine 0.8 Estimated GFR/1.73 m2 >= 60.00 Glucose 143 H Hemoglobin A1c 10.5 H Calcium 8.4 L Phosphorus < 2.0 L Magnesium 2.0 08/18/21 08/18/21 05:32 05:32 WBC 10.16 RBC 4.75 Hgb 12.9 Hct 38.3 MCV 81 MCH 27.2 MCHC 33.7 D RDW 13.3 Plt Count 234 MPV 10.3 Immature Gran % 0.6 Neutrophils % 55.7 Lymphocytes % 34.6 Monocytes % 8.2 Eosinophils % 0.4 Basophils % 0.5 Nucleated RBC % 0.0 Absolute Neutrophils 5.66 Absolute Lymphocytes 3.52 H Absolute Monocytes 0.83 H Absolute Eosinophils 0.04 Absolute Basophils 0.05 VBG pH VBG pCO2 VBG pO2 VBG HCO3 VBG Total CO2 VBG O2 Saturation VBG Base Excess Sodium 138 Potassium 3.6 Chloride 108 H Carbon Dioxide 20.7 L Anion Gap 9.3 BUN 1 L Creatinine 0.8 Estimated GFR/1.73 m2 >= 60.00 Glucose 156 H Hemoglobin A1c Calcium 8.2 L Phosphorus Magnesium 2.0
[2021-08-18] MEDS: hydrOXYzine PAMOATE 25 MG CAP PO (20:50)
[2021-08-18] MEDS: risperiDONE 1 MG TAB 4 MG PO (20:50)
[2021-08-18] MEDS: Melatonin 3 MG TAB 6 MG PO (20:51)
[2021-08-18] MEDS: Insulin Aspart 300 UNITS/3 ML PEN 24 UNITS SC (23:38)
[2021-08-19] VITALS (7 sets, daily range): BP systolic 88–138; BP diastolic 55–77; PULSE 94–132; RESP 18; TEMP 37.8; O2SAT 96–97
[2021-08-19 00:03] LABS: Glucose 467 mg/dL (74-106)
[2021-08-19 06:57] LABS: Anion Gap 11.7 mmol/L (3-11); BUN 4 mg/dL (7-18); CO2 23.3 mmol/L (21.0-32.0); CREATININE 0.6 mg/dL (0.55-1.02); Calcium 8.6 mg/dL (8.5-10.1); Chloride 101 mmol/L (98-107); Glucose 415 mg/dL (74-106); PHOSPHORUS 2.7 mg/dL (2.6-4.7); Potassium 3.2 mmol/L (3.5-5.1); Sodium 136 mmol/L (136-145)
--- NOTE | 2021-08-19 07:58 | PUCC_ITS ---
General Date of Service Date of service: 08/19/21 Time of Service: 07:58 Reason for Admission to ICU: DKA S/p Endotracheal intubation Hypokalemia Nausea and vomiting due to hyperglycemia Paranoid delusion ? Recommendations I&O: Intake & Output 08/16/21 08/17/21 08/18/21 08/19/21 23:59 23:59 23:59 23:59 Intake Total 4244.868 / 4244.868 4826.892 / 4826.892 3000 / 3000 Output Total 3200 / 3200 5300 / 5300 1650 / 1650 Balance 1044.868 / 1044.868 -473.108 / -621.285 2642 / 1350 Weight 305 lb 8.971 oz 300 lb 14.896 oz Code Status: Resuscitation Status Full Code Subjective Critical and life-threatening events over the past 24 hours: This morbidly obese 30-year-old lady with a history of mental illness was transferred from [facility] with DKA and new onset type 1 diabetes mellitus. She is now s/p extubation on RA w/o respiratory distress. Insulin drip in progress at the time of the interview as per protocol..? This is a 30 yo female with no prior known diabetes who is a transfer from [facility] for DKA. She does have a significant psychiatric history. She states she was feeling ill and had poor PO intake for a week prior to admission. She had ketones in her UA, however no blood ketones were tested. She was admitted and put on the DKA insulin drip protocol, but did not received any long acting subq insulin. This morning her labs are improved (phos needs attention) and she remains o nthe insulin drip at 8.5. She is feeling better and endorses hunger. Exam Narrative Exam Narrative: patient is alert and oriented X4 w/o neuro deficit, skin is pink w/o cyanosis. Speech and memory are normal. mild bibasilar crackles present. RRR no murmurs. Non distended abdomen. Resp Effort & Inspection: normal respiratory effort, able to speak in complete sentences and cough Quality of cough: wet Auscultation: clear to auscultation bilaterally (To upper posterior lobes), crackles bilaterally in the lower lung durham and diminished lung sounds bilaterally in the lower lung durham Cardio Rhythm: regular rhythm Extrem General: edema Laterality: bilateral (legs) Psych Mental Status: mental status grossly normal Most Recent VS/Results Last Vital Signs Temp 96.8 F L 08/18/21 19:59 Pulse 94 H 08/19/21 06:15 Resp 18 08/18/21 19:59 BP 88/55 L 08/19/21 06:15 Pulse Ox 96 08/18/21 19:59 Laboratory Results - last 24 hr 08/18/21 08/19/21 23:42 05:39 Sodium 136 Potassium 3.2 L Chloride 101 Carbon Dioxide 23.3 Anion Gap 11.7 H BUN 4 L Creatinine 0.6 Estimated GFR/1.73 m2 >= 60.00 Glucose 467 H 415 H Calcium 8.6 Phosphorus 2.7 Review of Systems Narrative: Patient in bed w/o signs and symptoms of distress.She is ccoherent and able to recall nausea vomiting precluding her from eating 8 days prior to admission, and verbalizes the desire to eat. . Constitutional Constitutional: Reports system reviewed and no additional complaints, except as documented, Denies fever(s) and Denies poor appetite Eyes Eyes: Reports blurry vision and Reports change in vision ENT Ears, Nose, Mouth, and Throat: Reports system reviewed and no additional complaints, except as documented Cardiovascular Cardiovascular: Reports system reviewed and no additional complaints, except as documented, Denies rapid heart rate, Reports leg edema and Denies dyspnea Respiratory Respiratory: Reports cough and Denies dyspnea Gastrointestinal Gastrointestinal: Denies nausea and Denies vomiting Genitourinary Genitourinary: Denies difficulty voiding Comments: Denies burning upon urination Musculoskeletal Musculoskeletal: Reports system reviewed and no additional complaints, except as documented Neurologic Neurologic: Reports system reviewed and no additional complaints, except as documented and Reports as per HPI Psychiatric Psychiatric: Reports as per HPI Endocrine Endocrine: Reports system reviewed and no additional complaints, except as documented and Reports as per HPI
--- NOTE | 2021-08-19 08:14 | CMPROGNOTE_ITS ---
- If Service Date Differs Date of service: 08/19/21 Time of Service: 08:14 Care Management Progress Note S/O: Mary Grace was sitting up in bed when CM met with her. She shared that she is having a lot of back pain and that it is difficult for her to ambulate, particularly on stairs. Mary Grace has a new diagnosis of Diabetes and has many questions. She informed CM that she was able to inject herself for the first time this morning and she admitted that it was easier than she expected. Mary Grace explained to CM that she is connected to [facility] in [place] and that they provide her with rental assistance and medications and laundry services.She added that she would like to have housekeeping services as well because it is difficult for her to bend and lift.She also stated that she has applied for Section 8 housing because she would like a first floor apartment. A: 30 year old female admitted to [facility] 08/16/21 for DKA with new onset insulin dependent diabetes P: Mary Grace continues to be closely monitored and treated in the ICU. Anticipate increased services, ongoing diabetic education, support with new medications and discharge planning including possible [facility] referral, VNA referral, [facility] collaboration.
[2021-08-19] MEDS: Insulin Glargine 300 UNITS/3 ML PEN 35 UNITS SC ×2 (08:42→22:58)
[2021-08-19] MEDS: Insulin Aspart 300 UNITS/3 ML PEN SC ×6 (08:50→18:45)
[2021-08-19] MEDS: Potassium Chloride 20 MEQ TABCR 40 MEQ PO ×2 (08:51→20:50)
[2021-08-19] MEDS: risperiDONE 1 MG TAB PO (08:52)
[2021-08-19] MEDS: LORazepam 1 MG TAB PO ×3 (08:53→20:50)
[2021-08-19] MEDS: Lithium Carbonate 300 MG CAP 600 MG PO (09:05)
[2021-08-19] MEDS: Normal Saline Flush 10 ML SYR IVP ×2 (09:07→10:33)
[2021-08-19] MEDS: Gabapentin 100 MG CAP PO ×3 (09:09→20:50)
[2021-08-19] MEDS: POTASSIUM CHLORIDE 10 MEQ/100 ML BAG 100 MEQ IVPB (10:34)
--- NOTE | 2021-08-19 11:04 | NUR.NOTE ---
Patient states she did get covid vaccines but does not have card on her. Patient states she got them in [place]. [place]. Per patient record she did get her flu vaccine. Nursing Note:
--- NOTE | 2021-08-19 11:31 | W.DIABETESNO ---
Date of service: 08/19/21 Time of Service: 11:31 Diabetes Note Reason for Visit: dm NOTE: Met with Mary Grace today in ICU. She reports learning to inject herself with ICU nursing. Reviewed carb counting and meal time insulin. Not able to verbalize understanding, comprehension minimal of how to manage her diabetes in home setting. After discharge, recommend home health daily initially to help with glycemic management. Will follow up prior to discharge to review insulin dosage/instruction again. Time Spent in Nutritional Counseling and Treatment: 10
[2021-08-19] MEDS: Enoxaparin 40 MG/0.4 ML SYR SC (12:27)
[2021-08-19 13:04] LABS: Anion Gap 11.5 mmol/L (3-11); BUN 8 mg/dL (7-18); CO2 22.5 mmol/L (21.0-32.0); CREATININE 0.6 mg/dL (0.55-1.02); Calcium 8.5 mg/dL (8.5-10.1); Chloride 101 mmol/L (98-107); Glucose 361 mg/dL (74-106); Potassium 3.7 mmol/L (3.5-5.1); Sodium 135 mmol/L (136-145)
[2021-08-19] MEDS: Nystatin POWDER 60 GM JAR TP (20:50)
--- NOTE | 2021-08-19 21:08 | W.PM.PROGNOT ---
Date of Service Date of service: 08/19/21 Time of Service: 21:08 Assessment and Plan Assessment and plan (1) DKA (diabetic ketoacidosis): Status: Acute Assessment and plan: Anion Gap closed, then increased to 11.7 after stopping insulin drip and intiating basal/bolus insulin. Repeat anion gap mildly improved to 11.5. Stopped IV insulin and D51/2NS. Basal/bolus insulin initiated. Advanced diet to full diabetic diet A1c 10.4 DM education. Diabetes is a new diagnosis. Adjusting insulin; now on BID lantus, 1:10 insulin to carb with meals and resistance sliding scale insulin with meals. (2) Leucocytosis: Status: Acute Assessment and plan: Now normalized w/o treatment. Likely d/t stressor DKA. (3) Hypokalemia: Status: Acute Assessment and plan: Normalized on replacement tx. Monitor (4) Hypophosphatemia: Status: Acute Assessment and plan: Replete with oral phosphorus Improved and will stop oral supplementation now she is on a regular diet. Monitor. (5) Bilateral calf pain: Status: Acute Assessment and plan: Has now been more of a bilateral, generalized achiness in legs. No DVT on bilateral US. Gabapentin 100mg TID initiated. (6) DVT prophylaxis: Status: Acute Assessment and plan: Lovenox 40 mg SC BID (7) Discharge planning issues: Status: Acute Assessment and plan: Full code Changed to Med-Surg status . Subjective Subjective Patient reports: no new complaints, feels better, tolerating a regular diet and afebrile; denies nausea, vomiting or shortness of breath Interval history since last seen: Less bilateral generalized leg pain. Exam Narrative Exam Narrative: Lying on side in bed. Const General: cooperative and no acute distress Nutritional Appearance: obese Orientation: oriented x3 Eyes General: appearance normal, both eyes and all related structures Sclera: sclerae normal Resp Effort & Inspection: normal respiratory effort Auscultation: clear to auscultation bilaterally Cardio Rate: regular rate Rhythm: regular rhythm Heart Sounds: S1 normal and S2 normal GI Inspection: obesity Palpation: soft and nontender Skin General skin exam: no rashes or lesions noted Extrem General: no pedal edema and other (Diffuse bilateral leg aches) Objective Last Vital Signs Temp 36.0 C L 08/18/21 19:59 Pulse 109 H 08/19/21 16:06 Resp 18 08/18/21 19:59 BP 103/65 08/19/21 16:06 Pulse Ox 97 08/19/21 10:45 Laboratory Results - last 24 hr 08/18/21 08/19/21 08/19/21 23:42 05:39 12:30 Sodium 136 135 L Potassium 3.2 L 3.7 Chloride 101 101 Carbon Dioxide 23.3 22.5 Anion Gap 11.7 H 11.5 H BUN 4 L 8 Creatinine 0.6 0.6 Estimated GFR/1.73 m2 >= 60.00 >= 60.00 Glucose 467 H 415 H 361 H Calcium 8.6 8.5 Phosphorus 2.7
[2021-08-19 21:58] LABS: Lab Add On Test DONE
[2021-08-19 22:35] LABS: Bilirubin Negative (Negative); Blood Negative (Negative); Clarity Clear (Clear); Glucose >=1000 mg/dL (Negative); Ketones Trace mg/dL (Negative); Leukocyte Esterase Negative (Negative); Nitrite Negative (Negative); Specific Gravity 1.015 (1.005-1.025); Urobilinogen 0.2 EU/dL (Up TO 0.2)
[2021-08-19 22:39] LABS: Procalcitonin < 0.1 ng/mL
[2021-08-19 22:47] LABS: Source Nasal/Nares
[2021-08-19] MEDS: risperiDONE 1 MG TAB 4 MG PO (22:55)
[2021-08-19] MEDS: hydrOXYzine PAMOATE 25 MG CAP PO (22:55)
[2021-08-19] MEDS: Melatonin 3 MG TAB 6 MG PO (22:56)
[2021-08-19 23:57] LABS: COVID-19 PCR Negative (Negative)
[2021-08-20] VITALS (7 sets, daily range): BP systolic 100–122; BP diastolic 65–98; PULSE 63–134; RESP 12–18; TEMP 36.9–37.7; O2SAT 93–95
[2021-08-20] MEDS: Enoxaparin 40 MG/0.4 ML SYR SC ×3 (00:30→23:07)
[2021-08-20] MEDS: Lactated Ringers 1,000 ML 1000 ML IV (00:31)
[2021-08-20] MEDS: Lactated Ringers 1,000 ML 150 ML IV (01:34)
[2021-08-20 07:35] LABS: Anion Gap 7.8 mmol/L (3-11); BUN 9 mg/dL (7-18); CO2 27.2 mmol/L (21.0-32.0); CREATININE 0.7 mg/dL (0.55-1.02); Calcium 8.2 mg/dL (8.5-10.1); Chloride 104 mmol/L (98-107); Glucose 437 mg/dL (74-106); Magnesium 1.9 mg/dL (1.8-2.4); Potassium 3.6 mmol/L (3.5-5.1); Sodium 139 mmol/L (136-145)
[2021-08-20 07:46] LABS: PHOSPHORUS 3.7 mg/dL (2.6-4.7)
[2021-08-20] MEDS: Insulin Glargine 300 UNITS/3 ML PEN 45 UNITS SC (07:59)
[2021-08-20] MEDS: Insulin Aspart 300 UNITS/3 ML PEN SC ×3 (08:02→17:19)
[2021-08-20] MEDS: Insulin Aspart 300 UNITS/3 ML PEN 10 UNITS SC ×3 (08:02→17:20)
[2021-08-20] MEDS: Nystatin POWDER 60 GM JAR TP ×2 (08:03→20:27)
[2021-08-20] MEDS: Potassium Chloride 20 MEQ TABCR 40 MEQ PO ×2 (08:05→20:22)
[2021-08-20] MEDS: Lithium Carbonate 300 MG CAP 600 MG PO (08:05)
[2021-08-20] MEDS: risperiDONE 1 MG TAB PO (08:06)
[2021-08-20] MEDS: LORazepam 1 MG TAB PO ×3 (08:06→20:22)
[2021-08-20] MEDS: Gabapentin 100 MG CAP PO ×3 (08:06→20:22)
--- NOTE | 2021-08-20 11:05 | CMPROGNOTE_ITS ---
- If Service Date Differs Date of service: 08/20/21 Time of Service: 11:05 Care Management Progress Note S/O: Mary Grace was sitting up in bed when BRANDON met with her. She was pleasant and agreeable to conversation. Mary Grace is continuing her diabetes education and is becoming more confident with self injecting her insulin, per her nurse.She has also begun to check her blood sugar. Mary Grace is not ready for discharge yet but CM reached out to [facility] as she will need daily visits from nursing for a while when she discharges. Preliminary demographic and clinical information was faxed to them as well. When the provider has determined exactly which insulin regimen Mary Grace will be discharged on, BRANDON will fax prescriptions to [place] to enure insurance coverage.She will need all of the normal diabetes supplies including needles, syringes, glucose meter, test strips, etc BRANDON has also communicated with Mary Grace's community health nurse supervisor through [facility] CLIENT LEADER program in [place], Anat Blackburn. Anat will meet Mary Grace at her apartment when she is discharged to help her get settled. She will also knot picker cloth and deliver her medications and supplies. A: 30 year old female admitted to [facility] 08/16/21 for DKA with new onset insulin dependent diabetes P: Mary Grace is receiving diabetic education and is learning how to check her blood sugar and administer insulin.. She will be discharged home to [place] when medically ready per provider. She will have new home health nursing visits daily through [facility]. BRANDON contacted the agency this morning as she is likely to discharge within the next day or two. Clinical and demographic information was faxed but the discharge summary will also need to be faxed upon discharge. Mary Grace will transport via [facility] coordinated by BRANDON. She will resume her community services CLIENT LEADER program through [facility] in [place]. CM will continue to support Mary Grace and assess for ongoing discharge needs.
--- NOTE | 2021-08-20 14:19 | PHA.REVIEW ---
Pharmacy Admission Review - Admission Clinical Review (Last Reviewed 08/16/21 @ 23:42 by Alexander Conn) Bilateral calf pain (Acute) Discharge planning issues (Acute) DVT prophylaxis (Acute) Hypophosphatemia (Acute) Leucocytosis (Acute) Nausea and vomiting due to hyperglycemia (Acute) Hypokalemia (Acute) DKA (diabetic ketoacidosis) (Acute) haloperidol [From Haldol] Allergy (Severe, Unverified 06/11/20 07:34) Anaphylaxsis haloperidol lactate [From Haldol] Allergy (Severe, Unverified 06/11/20 07:34) Anaphylaxsis paroxetine HCl [From Paxil] Adverse Reaction (Intermediate, Unverified 06/11/20 07:34) Nausea Resuscitation Status Full Code Height 5 ft 5 in Weight 141.1 kg - Renal Dosing Renal Dosing: BUN 9 mg/dL (7-18) 08/20/21 07:00 Creatinine 0.7 mg/dL (0.55-1.02) 08/20/21 07:00 Medications needing adjustments: Reviewed (Crcl over 150 mL/min using adjusted body weight, current meds okay.) - Anticoagulation Anticoagulation: Hgb 12.9 g/dL (11.2-15.7) 08/18/21 05:32 Hct 38.3 % (36.0-46.0) 08/18/21 05:32 Plt Count 234 10^3/uL (130-400) 08/18/21 05:32 Creatinine 0.7 mg/dL (0.55-1.02) 08/20/21 07:00 DVT Prophylaxis: Reviewed Medications: Enoxaparin Therapeutic Anticoagulation: N/A - Opiate Usage Evaluate Pain Scale/Pains Meds: N/A - Relevant Labs Sodium 139 mmol/L (136-145) 08/20/21 07:00 Potassium 3.6 mmol/L (3.5-5.1) 08/20/21 07:00 Chloride 104 mmol/L (98-107) 08/20/21 07:00 Phosphorus 3.7 mg/dL (2.6-4.7) 08/20/21 07:00 Magnesium 1.9 mg/dL (1.8-2.4) 08/20/21 07:00 Electrolytes, C-Reactive P, ESR: Reviewed (PO potassium replacement ordered) - DM Control DM Control: Glucose 437 mg/dL (74-106) H 08/20/21 07:00 Hemoglobin A1c 10.5 % (<5.7) H 08/18/21 05:32 Finger Stick Blood Glucose 261 Finger Stick Blood Glucose 261 Finger Stick Blood Glucose 374 Finger Stick Blood Glucose 374 Insulin Dosing: Reviewed (Pt. has scheduled glargine and aspart ordered as well as sliding scale aspart) - Heart Failure/CA EF%, ROGER's, B-Blockers, Diuretics: N/A - BP Control BP Control: Blood Pressure 104/69 If elevated: Reviewed (BP has been low to normal the past couple of days) - Qtc Review If Elevated: N/A - IV to PO Switch IV Medications: Reviewed - Home Meds Home Med List reviewed: Reviewed Relevent Home Meds Not ordered & why?: medroxyprogesterone - Current meds Current Medication Order Review: Reviewed - Comments Comments/Follow Ups: Watch BP, BG, labs and for med changes.
--- NOTE | 2021-08-20 15:47 | PGE_ITS ---
Date of Service Date of service: 08/20/21 Time of Service: 15:48 Assessment and Plan Assessment and plan (1) DKA (diabetic ketoacidosis): Status: Acute Assessment and plan: Anion Gap closed, then increased to 11.7 after stopping insulin drip and intiating basal/bolus insulin. Repeat anion gap mildly improved to 11.5 but now closed again. A1c 10.4 DM education. Diabetes is a new diagnosis. Adjusting insulin; now on BID lantus, 10 units insulin AC along with resistant SS insulin. (2) Leucocytosis: Status: Acute Assessment and plan: Now normalized w/o treatment. Likely d/t stressor DKA. (3) Hypokalemia: Status: Acute Assessment and plan: Normalized on replacement tx. Monitor (4) Hypophosphatemia: Status: Acute Assessment and plan: Repleted with oral phosphorus NOrmalized Monitor. (5) Bilateral calf pain: Status: Acute Assessment and plan: Has now been more of a bilateral, generalized achiness in legs. No DVT on bilateral US. Gabapentin 100mg TID initiated. (6) DVT prophylaxis: Status: Acute Assessment and plan: Lovenox 40 mg SC BID (7) Discharge planning issues: Status: Acute Assessment and plan: Full code Changed to Med-Surg status . Subjective Subjective Patient reports: no new complaints, tolerating a regular diet and afebrile; denies nausea, vomiting or shortness of breath Interval history since last seen: Pt had a low grade temperature elevation last PM. UA and Covid were negative. Exam Narrative Exam Narrative: Lying on side in bed. Conversant. Asks questions about diabetes. Const General: cooperative and no acute distress Nutritional Appearance: obese Orientation: oriented x3 Eyes General: appearance normal, both eyes and all related structures Sclera: sclerae normal Resp Effort & Inspection: normal respiratory effort Auscultation: clear to auscultation bilaterally Cardio Rate: regular rate Rhythm: regular rhythm Heart Sounds: S1 normal and S2 normal GI Inspection: obesity Palpation: soft and nontender Skin General skin exam: no rashes or lesions noted Extrem General: no pedal edema and other (Diffuse bilateral leg aches) Objective Last Vital Signs Temp 37.3 C 08/20/21 00:00 Pulse 100 H 08/20/21 07:55 Resp 18 08/20/21 00:00 BP 104/69 08/20/21 07:55 Pulse Ox 93 06/15/22 07:51 Laboratory Results - last 24 hr 08/19/21 08/19/21 08/19/21 12:30 12:30 21:50 Sodium Potassium Chloride Carbon Dioxide Anion Gap BUN Creatinine Estimated GFR/1.73 m2 Glucose Calcium Phosphorus Magnesium Procalcitonin < 0.1 Urine Color Yellow Urine Clarity Clear Urine pH 7.0 Ur Specific Phelps 1.015 Urine Protein Negative Urine Ketones Trace H Urine Blood Negative Urine Nitrite Negative Urine Bilirubin Negative Urine Urobilinogen 0.2 Ur Leukocyte Esterase Negative Urine Glucose >=1000 H COVID-19 Source SARS-CoV-2 (PCR) Add-On Test Request DONE 08/19/21 08/20/21 22:25 07:00 Sodium 139 Potassium 3.6 Chloride 104 Carbon Dioxide 27.2 Anion Gap 7.8 BUN 9 Creatinine 0.7 Estimated GFR/1.73 m2 >= 60.00 Glucose 437 H Calcium 8.2 L Phosphorus 3.7 Magnesium 1.9 Procalcitonin Urine Color Urine Clarity Urine pH Ur Specific Phelps Urine Protein Urine Ketones Urine Blood Urine Nitrite Urine Bilirubin Urine Urobilinogen Ur Leukocyte Esterase Urine Glucose COVID-19 Source Nasal/Nares SARS-CoV-2 (PCR) Negative Add-On Test Request
--- NOTE | 2021-08-20 18:26 | NUR.NOTE ---
Transferred ICU pt to Med surgical room 114. New diabetic. DKA off insulin Gtt. Independent in room . oriented pt to room and all controls. VS WNL.Nursing Note:
[2021-08-20] MEDS: hydrOXYzine PAMOATE 25 MG CAP PO (21:51)
[2021-08-20] MEDS: risperiDONE 1 MG TAB 4 MG PO (21:52)
[2021-08-20] MEDS: Insulin Glargine 300 UNITS/3 ML PEN 35 UNITS SC (21:52)
[2021-08-20] MEDS: Melatonin 3 MG TAB 6 MG PO (21:52)
[2021-08-21 04:10] VITALS: BP 109/76; PULSE 94; RESP 20; TEMP 37.3; O2SAT 95
[2021-08-21 06:55] LABS: Platelet Count 238 10^3/uL (130-400)
[2021-08-21 07:49] VITALS: BP 127/73; PULSE 82; RESP 16; TEMP 36.6; O2SAT 99
[2021-08-21] MEDS: Lithium Carbonate 300 MG CAP 600 MG PO (08:18)
[2021-08-21] MEDS: LORazepam 1 MG TAB PO ×3 (08:18→19:15)
[2021-08-21] MEDS: Potassium Chloride 20 MEQ TABCR 40 MEQ PO ×2 (08:18→19:15)
[2021-08-21] MEDS: risperiDONE 1 MG TAB PO (08:19)
[2021-08-21] MEDS: Gabapentin 100 MG CAP PO ×3 (08:19→19:14)
[2021-08-21] MEDS: Insulin Aspart 300 UNITS/3 ML PEN 10 UNITS SC (08:20)
[2021-08-21] MEDS: Insulin Aspart 300 UNITS/3 ML PEN SC ×3 (08:21→17:21)
[2021-08-21] MEDS: Nystatin POWDER 60 GM JAR TP ×2 (08:22→19:16)
[2021-08-21] MEDS: Insulin Glargine 300 UNITS/3 ML PEN 45 UNITS SC ×2 (08:22→21:09)
[2021-08-21] MEDS: Enoxaparin 40 MG/0.4 ML SYR SC ×2 (12:05→23:22)
[2021-08-21] MEDS: Insulin Aspart 300 UNITS/3 ML PEN 15 UNITS SC ×2 (12:08→17:21)
[2021-08-21] MEDS: Normal Saline Flush 10 ML SYR IVP (13:37)
[2021-08-21 15:50] VITALS: BP 121/85; PULSE 116; RESP 18; TEMP 37.1; O2SAT 95
--- NOTE | 2021-08-21 16:22 | CMPROGNOTE_ITS ---
- If Service Date Differs Date of service: 08/21/21 Time of Service: 16:22 Care Management Progress Note S/O: Mary Grace remains pleasant and agreeable to conversation. Mary Grace continues to make gains in diabetic management, working closely with Nutrition and Nursing. Mary Grace will require diabetic supplies including needles, syringes, glucose meter, test strips, etc. CM spoke with [facility] PRODUCTION CONTROL ANALYST program in [place], Anat Blackburn (p#[phone]), and agreed to notify PRODUCTION CONTROL ANALYST Point of discharge timing. Anat is hopeful she will be able to meet Mary Grace at her apartment when she is discharged to help her get settled. She will also molded goods spot picker and deliver her medications and supplies. A: 30 year old female admitted to [facility] 08/16/21 for DKA with new onset insulin dependent diabetes P: Mary Grace will discharge home with have new home health nursing visits daily through [facility]; agency notified. Mary Grace will transport via [facility] coordinated by CM. PRODUCTION CONTROL ANALYST program notification required upon discharge. CM will continue to support Mary Grace and assess for ongoing discharge needs.
--- NOTE | 2021-08-21 16:22 | PDOC.CMPRO ---
- If Service Date Differs Date of service: 08/21/21 Time of Service: 16:22 Care Management Progress Note S/O: Mary Grace remains pleasant and agreeable to conversation. Mary Grace continues to make gains in diabetic management, working closely with Nutrition and Nursing. Mary Grace will require diabetic supplies including needles, syringes, glucose meter, test strips, etc. CM spoke with [facility] PERSONNEL ASSOCIATE program in [place], Anat Blackburn (p#[phone]), and agreed to notify PERSONNEL ASSOCIATE Point of discharge timing. Anat is hopeful she will be able to meet Mary Grace at her apartment when she is discharged to help her get settled. She will also meat pickler and deliver her medications and supplies. A: 30 year old female admitted to [facility] 08/16/21 for DKA with new onset insulin dependent diabetes P: Mary Grace will discharge home with have new home health nursing visits daily through [facility]; agency notified. Mary Grace will transport via [facility] coordinated by CM. PERSONNEL ASSOCIATE program notification required upon discharge. CM will continue to support Mary Grace and assess for ongoing discharge needs.
--- NOTE | 2021-08-21 18:07 | PGE_ITS ---
Date of Service Date of service: 08/21/21 Time of Service: 18:08 Assessment and Plan Assessment and plan (1) DKA (diabetic ketoacidosis): Status: Acute Assessment and plan: Anion Gap closed, then increased to 11.7 after stopping insulin drip and intiating basal/bolus insulin. Repeat anion gap mildly improved to 11.5 but now closed again. A1c 10.4 DM education. Has continuous glucose monitor. Diabetes is a new diagnosis. Adjusting insulin;showing significant insulin resistance. (2) Leucocytosis: Status: Acute Assessment and plan: Now normalized w/o treatment. Likely d/t stressor DKA. (3) Hypokalemia: Status: Acute Assessment and plan: Normalized on replacement tx. Monitor (4) Hypophosphatemia: Status: Acute Assessment and plan: Repleted with oral phosphorus NOrmalized Monitor. (5) Bilateral calf pain: Status: Acute Assessment and plan: Has now been more of a bilateral, generalized achiness in legs. No DVT on bilateral US. Gabapentin 100mg TID initiated. (6) DVT prophylaxis: Status: Acute Assessment and plan: Lovenox 40 mg SC BID (7) Discharge planning issues: Status: Acute Assessment and plan: Full code Changed to Med-Surg status Has community services in place; lives in [place]. . Subjective Subjective Patient reports: no new complaints, feels better and afebrile; denies nausea, vomiting or shortness of breath Exam Narrative Exam Narrative: Lying on side in bed. Conversant. Asks questions about diabetes. Const General: cooperative and no acute distress Nutritional Appearance: obese Orientation: oriented x3 Eyes General: appearance normal, both eyes and all related structures Sclera: sclerae normal Resp Effort & Inspection: normal respiratory effort Auscultation: clear to auscultation bilaterally Cardio Rate: regular rate Rhythm: regular rhythm Heart Sounds: S1 normal and S2 normal GI Inspection: obesity Palpation: soft and nontender Skin General skin exam: no rashes or lesions noted Extrem General: no pedal edema and other (Diffuse bilateral leg aches) Objective Last Vital Signs Temp 37.1 C 08/21/21 15:50 Pulse 116 H 08/21/21 15:50 Resp 18 08/21/21 15:50 BP 121/85 08/21/21 15:50 Pulse Ox 95 08/21/21 15:50 Laboratory Results - last 24 hr 08/21/21 06:30 Plt Count 238
[2021-08-21] MEDS: hydrOXYzine PAMOATE 25 MG CAP PO (21:07)
[2021-08-21] MEDS: Melatonin 3 MG TAB 6 MG PO (21:08)
[2021-08-21] MEDS: risperiDONE 1 MG TAB 4 MG PO (21:08)
[2021-08-21 23:20] VITALS: BP 137/81; PULSE 92; RESP 18; TEMP 36.5; O2SAT 94
[2021-08-22] MEDS: Gabapentin 100 MG CAP PO ×2 (08:09→13:53)
[2021-08-22] MEDS: Potassium Chloride 20 MEQ TABCR 40 MEQ PO ×2 (08:10→19:29)
[2021-08-22] MEDS: Insulin Aspart 300 UNITS/3 ML PEN SC ×3 (08:10→16:59)
[2021-08-22] MEDS: Lithium Carbonate 300 MG CAP 600 MG PO (08:10)
[2021-08-22] MEDS: risperiDONE 1 MG TAB PO (08:10)
[2021-08-22] MEDS: Insulin Aspart 300 UNITS/3 ML PEN 20 UNITS SC (08:11)
[2021-08-22] MEDS: LORazepam 1 MG TAB PO ×3 (08:12→19:29)
[2021-08-22] MEDS: Insulin Glargine 300 UNITS/3 ML PEN 50 UNITS SC ×2 (08:12→21:24)
[2021-08-22 08:22] VITALS: BP 100/64; PULSE 95; RESP 16; TEMP 36.8; O2SAT 96
[2021-08-22] MEDS: Insulin Aspart 300 UNITS/3 ML PEN 30 UNITS SC ×2 (11:43→16:59)
--- NOTE | 2021-08-22 13:47 | W.DIABETESNO ---
Date of service: 08/22/21 Time of Service: 13:47 Diabetes Note Reason for Visit: dm NOTE: Met with Mary Grace today. Taking 50 units lantus BID, 30 units aspart at meals. Total Daily Dose at 190 units daily- indicating high degree of insuin resistance. Blood sugar before lunch today: 245mg/dl- an improvement but still far from target. Reviewed meals with staff and Mary Grace to limit excess carb intake. Will provide 50 g carbs at meals, and only non carb snacks during day. Would benefit from adding metformin and trulicity to decrease insulin resistance. Will provide more detailed insulin and meal instruction prior to discharge. Mary Grace is no longer interested in using a continuous glucose monitor. She removed it yesterday. States she prefers doing finger sticks. Time Spent in Nutritional Counseling and Treatment: 20
[2021-08-22] MEDS: Enoxaparin 40 MG/0.4 ML SYR SC ×2 (13:53→23:12)
--- NOTE | 2021-08-22 15:56 | W.PM.PROGNOT ---
Date of Service Date of service: 08/22/21 Time of Service: 15:56 Assessment and Plan Assessment and plan (1) DKA (diabetic ketoacidosis): Status: Acute Assessment and plan: A1c 10.4 DM education. Attempted to utilize continuous glucose monitor, but she was unable to easily obtain readings and there were concerns about accuracy. Will now monitor with fingersticks/glucometer. Diabetes is a new diagnosis. Adjusting insulin;showing significant insulin resistance. Add Jardiance 10mg daily. If tolerates would benefit from raising dose to 25mg. She would be a good candidate for a GLP-1 agonist such as Trulicity. (2) Leucocytosis: Status: Acute Assessment and plan: Now normalized w/o treatment. Likely d/t stressor DKA. (3) Hypokalemia: Status: Acute Assessment and plan: Normalized on replacement tx. Monitor (4) Hypophosphatemia: Status: Acute Assessment and plan: Repleted with oral phosphorus NOrmalized Monitor. (5) Bilateral calf pain: Status: Acute Assessment and plan: Has now been more of a bilateral, generalized achiness in legs. No DVT on bilateral US. Gabapentin 100mg TID initiated. (6) DVT prophylaxis: Status: Acute Assessment and plan: Lovenox 40 mg SC BID (7) Discharge planning issues: Status: Acute Assessment and plan: Full code Changed to Med-Surg status Has community services in place; lives in [place]. Services will be in place on Friday 08/25. . Subjective Subjective Patient reports: no new complaints, tolerating a regular diet and afebrile; denies nausea, vomiting or shortness of breath Interval history since last seen: Ongoing BLE discomfort Exam Narrative Exam Narrative: Lying on side in bed. Conversant. Asks questions about diabetes. Const General: cooperative and no acute distress Nutritional Appearance: obese Orientation: oriented x3 Limitations: mental status not altered Eyes General: appearance normal, both eyes and all related structures Sclera: sclerae normal Resp Effort & Inspection: normal respiratory effort Auscultation: clear to auscultation bilaterally Cardio Rate: regular rate Rhythm: regular rhythm Heart Sounds: S1 normal and S2 normal GI Inspection: obesity Palpation: soft and nontender Skin General skin exam: no rashes or lesions noted Extrem General: no pedal edema and no cyanosis Objective Last Vital Signs Temp 36.8 C 06/17/22 08:22 Pulse 95 H 08/22/21 08:22 Resp 16 08/22/21 08:22 BP 100/64 08/22/21 08:22 Pulse Ox 96 08/22/21 08:22
[2021-08-22 16:01] VITALS: BP 113/79; PULSE 96; RESP 16; TEMP 37.2; O2SAT 96
--- NOTE | 2021-08-22 16:17 | CMPROGNOTE_ITS ---
- If Service Date Differs Date of service: 08/22/21 Time of Service: 16:17 Care Management Progress Note S/O: Mary Grace remains inpatient, per MD diabetic regimen has yet to be finalized. Mary Grace continues to make gains in diabetic management, working closely with Nutrition and Nursing. Mary Grace will require diabetic supplies including needles, syringes, glucose meter, test strips, etc. CM spoke with [facility] BATHING SUIT MAKER program in [place], Anat Franciso (p#[phone]), and agreed to notify BATHING SUIT MAKER Point of discharge timing. Anat is hopeful she will be able to meet Mary Grace at her apartment when she is discharged to help her get settled. She will also cloth picker and deliver her medications and supplies. Due to complexities of discharge planning and [facility] [place] and CM unavailable this weekend, anticipate Mary Grace will not discharge prior to Wednesday. A: 30 year old female admitted to [facility] 08/16/21 for DKA with new onset insulin dependent diabetes P: Mary Grace will discharge home with have new home health nursing visits daily through [place]; agency notified. Mary Grace will transport via [facility] coordinated by CM. BATHING SUIT MAKER program notification required upon discharge. CM will continue to support Mary Grace and assess for ongoing discharge needs.
--- NOTE | 2021-08-22 16:17 | PDOC.CMPRO ---
- If Service Date Differs Date of service: 08/22/21 Time of Service: 16:17 Care Management Progress Note S/O: Mary Grace remains inpatient, per MD diabetic regimen has yet to be finalized. Mary Grace continues to make gains in diabetic management, working closely with Nutrition and Nursing. Mary Grace will require diabetic supplies including needles, syringes, glucose meter, test strips, etc. CM spoke with [facility] WELDER/FABRICATOR program in [place], Anat Franciso (p#[phone]), and agreed to notify WELDER/FABRICATOR Point of discharge timing. Anat is hopeful she will be able to meet Mary Grace at her apartment when she is discharged to help her get settled. She will also sisal picker and deliver her medications and supplies. Due to complexities of discharge planning and [facility] [place] and CM unavailable this weekend, anticipate Mary Grace will not discharge prior to Wednesday. A: 30 year old female admitted to [facility] 08/16/21 for DKA with new onset insulin dependent diabetes P: Mary Grace will discharge home with have new home health nursing visits daily through [place]; agency notified. Mary Grace will transport via [facility] coordinated by CM. WELDER/FABRICATOR program notification required upon discharge. CM will continue to support Mary Grace and assess for ongoing discharge needs.
[2021-08-22] MEDS: Gabapentin 300 MG CAP PO (19:29)
[2021-08-22] MEDS: Nystatin POWDER 60 GM JAR TP (20:07)
[2021-08-22] MEDS: hydrOXYzine PAMOATE 25 MG CAP PO (21:24)
[2021-08-22] MEDS: Melatonin 3 MG TAB 6 MG PO (21:24)
[2021-08-22] MEDS: risperiDONE 1 MG TAB 4 MG PO (21:24)
[2021-08-22 23:45] VITALS: BP 117/88; PULSE 102; RESP 18; TEMP 37.4; O2SAT 94
[2021-08-23 07:35] VITALS: BP 108/67; PULSE 89; RESP 19; TEMP 36.8; O2SAT 95
[2021-08-23] MEDS: Potassium Chloride 20 MEQ TABCR 40 MEQ PO ×2 (08:00→19:54)
[2021-08-23] MEDS: Lithium Carbonate 300 MG CAP 600 MG PO (08:00)
[2021-08-23] MEDS: Insulin Glargine 300 UNITS/3 ML PEN 50 UNITS SC ×2 (08:00→21:52)
[2021-08-23] MEDS: risperiDONE 1 MG TAB PO (08:00)
[2021-08-23] MEDS: Gabapentin 300 MG CAP PO ×3 (08:00→19:54)
[2021-08-23] MEDS: LORazepam 1 MG TAB PO ×3 (08:00→19:53)
[2021-08-23] MEDS: Empaglifozin 10 MG TAB PO (08:00)
[2021-08-23] MEDS: Insulin Aspart 300 UNITS/3 ML PEN 30 UNITS SC ×2 (08:01→17:12)
[2021-08-23] MEDS: Insulin Aspart 300 UNITS/3 ML PEN SC ×2 (08:01→17:12)
--- NOTE | 2021-08-23 11:42 | W.PM.PROGNOT ---
Date of Service Date of service: 08/23/21 Time of Service: 11:42 Assessment and Plan Assessment and plan (1) MICK 1 with ketoacidosis, uncontrolled: Status: Acute Assessment and plan: DKA now resolved. Hemoglobin A1c 10.4% indicative of long-term poor control. Continue adjustment of basal bolus insulin. Continue Jardiance. Continue diabetic education with emphasis on patient doing self-management while being observed by nursing staff with additional diabetic education by nursing staff. Patient will need close follow-up as an outpatient with a diabetes educator close to home in [facility]. Subjective Subjective Interval history since last seen: Admitted with diabetic ketoacidosis and new onset type I DM (MICK). DKA has resolved and now we are adjusting her insulin and she was just started on Jardiance yesterday. She is now on Lantus 50 units twice a day along with Jardiance 10 mg daily and Novolog 30 units TID w/ meals. Glucose readings yesterday were running in the mid 200s to mid 300s whereas this morning her fasting was down to 192 and at lunchtime blood sugars 123. I have asked nursing to allow the patient to do her own blood sugar checks and to inject her own insulin. I spent some time educating the patient by talking with her for 45 minutes discussing DKA signs and symptoms strategies to mitigate her DKA and hopefully prevent future hospitalizations. We talked about the difference tween basal bolus insulin therapy. She has some understand diabetes mellitus as her grandfather had diabetes and from the disease. Apparently she was tried on a CGM while here in the hospital but did not like it and refused to wear it. Emphasized she is going to need to monitor blood sugars pretty regularly before each meal and at bedtime and more often as needed if her sugars are running high. Exam Narrative Exam Narrative: Morbidly obese female alert and oriented person place time circumstance sitting up at the bedside just having finished breakfast. HEENT is unremarkable Lungs are clear Heart is regular rate and rhythm Abdomen is obese soft and nontender Legs without edema or cyanosis. She has normal pedal pulses. Although she complains of some tingling in her feet has been going on for some time she seems to have intact sensation to light touch although I did not have a monofilament to check for fine touch. Objective Last Vital Signs Temp 36.8 C 08/23/21 07:35 Pulse 89 08/23/21 07:35 Resp 19 08/23/21 07:35 BP 108/67 08/23/21 07:35 Pulse Ox 95 08/23/21 07:35
[2021-08-23] MEDS: Enoxaparin 40 MG/0.4 ML SYR SC ×2 (13:28→23:06)
[2021-08-23] MEDS: Nystatin POWDER 60 GM JAR TP ×2 (13:32→20:51)
[2021-08-23 15:30] VITALS: BP 114/78; PULSE 92; RESP 21; TEMP 36.9; O2SAT 94
[2021-08-23] MEDS: Normal Saline Flush 10 ML SYR IVP (19:54)
[2021-08-23] MEDS: Melatonin 3 MG TAB 6 MG PO (21:41)
[2021-08-23] MEDS: hydrOXYzine PAMOATE 25 MG CAP PO (21:41)
[2021-08-23] MEDS: risperiDONE 1 MG TAB 4 MG PO (21:41)
[2021-08-23 23:14] VITALS: BP 109/72; PULSE 61; RESP 18; TEMP 36.6; O2SAT 96
[2021-08-24 06:52] LABS: Platelet Count 241 10^3/uL (130-400)
[2021-08-24 07:07] LABS: Calculated LDL 86 mg/dL (<100); Cholesterol 161 mg/dL (<200); HDL Cholesterol 33 mg/dL (40-60); Triglyceride 210 mg/dL (<150)
[2021-08-24 07:14] VITALS: PULSE 86; RESP 18; TEMP 36.6; O2SAT 94
[2021-08-24 08:15] VITALS: BP 100/69
[2021-08-24] MEDS: Empaglifozin 10 MG TAB PO (08:17)
[2021-08-24] MEDS: risperiDONE 1 MG TAB PO (08:17)
[2021-08-24] MEDS: Gabapentin 300 MG CAP PO ×2 (08:17→13:25)
[2021-08-24] MEDS: Potassium Chloride 20 MEQ TABCR 40 MEQ PO ×2 (08:17→21:29)
[2021-08-24] MEDS: LORazepam 1 MG TAB PO ×3 (08:18→21:29)
[2021-08-24] MEDS: Nystatin POWDER 60 GM JAR TP ×3 (08:25→21:29)
[2021-08-24] MEDS: Lithium Carbonate 300 MG CAP 600 MG PO (08:25)
[2021-08-24] MEDS: Insulin Glargine 300 UNITS/3 ML PEN 50 UNITS SC ×2 (08:28→21:33)
[2021-08-24] MEDS: Insulin Aspart 300 UNITS/3 ML PEN SC (08:30)
[2021-08-24] MEDS: Insulin Aspart 300 UNITS/3 ML PEN 30 UNITS SC ×2 (08:33→12:17)
[2021-08-24] MEDS: Enoxaparin 40 MG/0.4 ML SYR SC ×2 (12:17→23:49)
--- NOTE | 2021-08-24 13:51 | W.PM.PROGNOT ---
Date of Service Date of service: 08/24/21 Time of Service: 13:52 Assessment and Plan Assessment and plan (1) MICK 1 with ketoacidosis, uncontrolled: Status: Acute Assessment and plan: DKA was resolved and now we are adjusting her basal/bolus insulin. Glucose readings have steadily dropped since addition of Jardiance. I have cut her Novolog that was schedule at 30 units tid AC to 25 units tid AC. I have left her Lantus the same at 50 units bid. (2) Diabetic neuropathy associated with type 1 diabetes mellitus: Status: Acute Assessment and plan: I have increased her gabapentin to 300 mg bid and 600 mg at night (3) Discharge planning issues: Status: Acute Assessment and plan: patient is medically stable for discharge today but due to the fact that her pharmacy [facility] is closed for today, this prevents us from safely discharging her home w/out her diabetic supplies or insulin. However this gives me another day to adjust her insulin dosing and her gabapentin as noted above Subjective Subjective Interval history since last seen: No new complaints. She has tingling in her feet but this has been present since her admission and likely is related to her DM. I told her that the gabapentin should help but we may need to titrate the dose. I also told her that improved glucose control may help her sx. She is concerned about going home on too much insulin. She eats only two meals per day and she has to walk from her apartment to [facility] [employer] and only eats breakfast burritos or chicken wraps. I told her that she needs to try to get community services to help her get fresh foods that are lower in carbs. I told her that I would ask the personal development educator to follow up with her tomorrow before her discharge to educate her on learning to validation specialist low/medium/high carb meals so she can adjust her novolog. I also told her that we would send her home w/ a sliding scale to use to correct any hyperglycemia that her meal coverage is not adequately covering. I also talked to her about when and how to adjust her Lantus. Exam Narrative Exam Narrative: Mary Grace is lying in bed watching TV. she is no discomfort. Her exam is unchanged. Objective Last Vital Signs Temp 36.6 C 08/24/21 07:14 Pulse 86 08/24/21 07:14 Resp 18 08/24/21 07:14 BP 100/69 08/24/21 08:15 Pulse Ox 94 08/24/21 07:14 Laboratory Results - last 24 hr 08/24/21 08/24/21 06:25 06:25 Plt Count 241 Triglycerides 210 H Total Cholesterol 161 LDL Cholesterol, Calc 86 HDL Cholesterol 33 L
[2021-08-24 16:34] VITALS: BP 134/89; PULSE 104; RESP 18; TEMP 36.6; O2SAT 96
[2021-08-24] MEDS: Insulin Aspart 300 UNITS/3 ML PEN 25 UNITS SC (17:25)
[2021-08-24 21:23] VITALS: BP 123/89; PULSE 102; RESP 17; TEMP 36.7; O2SAT 96
[2021-08-24] MEDS: Melatonin 3 MG TAB 6 MG PO (21:31)
[2021-08-24] MEDS: risperiDONE 1 MG TAB 4 MG PO (21:31)
[2021-08-24] MEDS: Gabapentin 300 MG CAP 600 MG PO (21:31)
[2021-08-24] MEDS: hydrOXYzine PAMOATE 25 MG CAP PO (21:31)
[2021-08-24] MEDS: Normal Saline Flush 10 ML SYR IVP (21:33)
[2021-08-25 05:48] VITALS: BP 100/68; PULSE 85; RESP 18; TEMP 36.2; O2SAT 95
[2021-08-25] MEDS: Nystatin POWDER 60 GM JAR TP (08:01)
[2021-08-25] MEDS: Insulin Aspart 300 UNITS/3 ML PEN SC (08:02)
[2021-08-25] MEDS: Insulin Aspart 300 UNITS/3 ML PEN 25 UNITS SC ×2 (08:02→11:51)
[2021-08-25] MEDS: Potassium Chloride 20 MEQ TABCR 40 MEQ PO (08:03)
[2021-08-25] MEDS: Gabapentin 300 MG CAP PO (08:03)
[2021-08-25] MEDS: Lithium Carbonate 300 MG CAP 600 MG PO (08:03)
[2021-08-25] MEDS: risperiDONE 1 MG TAB PO (08:03)
[2021-08-25] MEDS: LORazepam 1 MG TAB PO (08:03)
[2021-08-25] MEDS: Empaglifozin 10 MG TAB PO (08:03)
[2021-08-25] MEDS: Insulin Glargine 300 UNITS/3 ML PEN 50 UNITS SC (08:45)
[2021-08-25 08:55] VITALS: BP 110/62; PULSE 70; RESP 17; TEMP 36.6; O2SAT 96
--- NOTE | 2021-08-25 10:30 | W.DIABETESNO ---
Date of service: 08/25/21 Time of Service: 10:30 Diabetes Note Reason for Visit: Diabetes education follow up NOTE: Met with Ms. Harris to review the diabetes education that HANY Melgoza had been working on with her last week. We reviewed that snacks should be protein and gave examples. Also reviewed that meals should be no more than 60 grams max per meal, 45 grams preferable. Provided examples of what her meals would look like with these carbohydrate counts. Provided written materials on monitoring with a glucometer, blood sugar targets, how often and what to do about any blood sugars above or below target. Will review s/sx and rx of hypoglycemia and will have Ms. Harris demonstrate understanding of hypoglycemia management. Ms. Harris does demonstrate a good understanding of carbohydrate counting and calculating how much insulin to give her self pre meals. Provided my contact information for Ms. Harris to use this week while Marcia is on vacation. Marcia will call Ms. Harris on WednesdaySeptember 01 to review any questions as well as to set up an outpatient visit with Ms. Harris. Time Spent in Nutritional Counseling and Treatment: 15
--- NOTE | 2021-08-25 11:25 | CMDISCH_ITS ---
- If Service Date Differs Date of service: 08/25/21 Time of Service: 11:25 LACE Index Scoring Tool - Questions: Length of Stay (in days): 7 - 13 Acuity (Admit via E.D.?): No Comorbidities: Diabetes w/o Complication E.D. Visits: 1 - Answers: Total Score: 7 Risk of Readmission: Low Risk Care Management Discharge Reason for Hospitalization: DKA with new onset insulin-dependent diabetes Discharge Plan: Prescriptions and DME equipment orders will be sent to [facility] Leti and Mary Grace will discharge home with new home health nursing visits daily through [facility]; agency notified. Mary Grace will transport via [facility] coordinated by BRAND[facility]. ASSISTANT PROPERTY MANAGER notification to Anat, completed. Anat reports 2x daily med drops are provided by ASSISTANT PROPERTY MANAGER. Mary Grace will require diabetic supplies including needles, syringes, glucose meter, test strips, etc. [facility] ASSISTANT PROPERTY MANAGER program Anat Boyle (p#[phone]), Anat will meet Mary Grace at her apartment when she is discharged to help her get settled. She will also pickle processor and deliver her medications and supplies. Patient/Family Education Needs: Review discharge instructions, discuss Ask Me Three. Services Needed at Discharge: Home Health Care Services (RN; Diabetic Education), Transportation (RCT ) - MH Services (Omit if N/A) Current MH Services: ASSISTANT PROPERTY MANAGER ([facility], medication management, ASSISTANT PROPERTY MANAGER, etc.)
--- NOTE | 2021-08-25 11:25 | PDOC.CMDIS ---
- If Service Date Differs Date of service: 08/25/21 Time of Service: 11:25 LACE Index Scoring Tool - Questions: Length of Stay (in days): 7 - 13 Acuity (Admit via E.D.?): No Comorbidities: Diabetes w/o Complication E.D. Visits: 1 - Answers: Total Score: 7 Risk of Readmission: Low Risk Care Management Discharge Reason for Hospitalization: DKA with new onset insulin-dependent diabetes Discharge Plan: Prescriptions and DME equipment orders will be sent to [facility] Leti and Mary Grace will discharge home with new home health nursing visits daily through [facility]; agency notified. Mary Grace will transport via [facility] coordinated by [facility]. FUR FINISHER TAILOR notification to Anat, completed. Anat reports 2x daily med drops are provided by FUR FINISHER TAILOR. Mary Grace will require diabetic supplies including needles, syringes, glucose meter, test strips, etc. [facility] FUR FINISHER TAILOR program in [place], Anat Blackburn (p#[phone]), Anat will meet Mary Grace at her apartment when she is discharged to help her get settled. She will also picking machine operator and deliver her medications and supplies. Patient/Family Education Needs: Review discharge instructions, discuss Ask Me Three. Services Needed at Discharge: Home Health Care Services (RN; Diabetic Education), Transportation (RCT ) - MH Services (Omit if N/A) Current MH Services: FUR FINISHER TAILOR ([facility], medication management, FUR FINISHER TAILOR, etc.)
--- NOTE | 2021-08-25 12:45 | W.PM.DS.N ---
Date of service: 08/25/21 Time of Service: 12:45 DS: Diagnosis Discharge Diagnosis (1) MICK 1 with ketoacidosis, uncontrolled: Status: Resolved (2) Diabetic neuropathy associated with type 1 diabetes mellitus: Status: Acute Discharge Plan Disposition Patient Disposition: HOME W/HOME HEALTH SERVICE Condition: Good Discharge Details Reason For Visit: DKA with new Onset Insulin-Dependent Diebetes Admit Date/Time: 08/16/21 23:11 Admit Provider: Alexander Conn Attending Provider: Alexander Conn Primary Care Provider: Jim Bartholomew [facility] Hospital Course: 30-year-old female past history of celiac disease exercise-induced asthma and paranoid schizophrenia and chronic tobacco use who presented to the emergency department at [facility] in diabetic ketoacidosis. Symptoms include diarrhea nausea poor oral intake for the past week. Patient was transferred to [facility] as [facility] in [facility] had no bed capacity. Patient was treated with IV fluids to treat her dehydration she was given antiemetics and was put on insulin drip. On arrival she was hypokalemic with a potassium of 3.0 had an elevated anion gap at 24.4 blood glucose was 399. This was on 08/17/2021. She remained in DKA throughout 08/17/2021 but her DKA finally resolved on 08/18/2021 with normalization of her anion gap. Hypokalemia was treated with supplemental potassium. On 08/18/2021 she was put on basal bolus insulin therapy with Lantus and NovoLog. She was transferred out of the intensive care unit to the medical/surgical floor. Diabetic education was consulted and work with her on performing her own blood sugar checks with a glucometer. They also discussed meal planning and increasing her protein in her diet and limiting her carb intake. They recommended only 50 g of carbs at meals and only noncarb snacks during the day. They felt she would benefit from metformin and Trulicity to decrease her insulin resistance. However she was put on Jardiance 10 mg daily which really seem to help bring down her blood sugars. She did require titration of her Lantus up to 50 units twice a day. She was put on scheduled doses of NovoLog 30 units with each meal. However after the addition of the Jardiance her blood sugars dropped significantly to the point where we need to reduce her mealtime coverage to 25 units. Patient will be discharged home with instructions to adjust her NovoLog based on her carb intake. The plan will be for her to use 15 units of NovoLog for low-carb meals, 20 units for medium sized meals and 30 units for higher carb meals. She should remain on Lantus 50 units twice a day and Jardiance 10 mg daily. She will follow-up with Dr. Jim Navarro at [facility] in [facility]. She will be referred to a storeroom attendant at [facility]. Also note patient will be started on low-dose atorvastatin. She has elevated triglycerides of 210 a total cholesterol 161 with an LDL of 86. Her A1c was 10.5%. Her discharge weight was 145.8 kg. Radiologic imaging performed during this admission included chest x-ray that showed no acute pathology and venous duplex scan of her legs that showed no DVT. Home Meds and New Rx's Prescriptions: New Jardiance 10 mg Tablet 10 mg PO QAM Qty: 30 0RF gabapentin 300 mg Capsule See Rx Instructions .ROUTE .COMPLEX Qty: 60 0RF Rx Instructions: 300 mg orally @ 8 am, 300 mg PO @ 2 pm and 600 mg at bedtime; dispense 300 mg capsules insulin glargine [Lantus Solostar U-100 Insulin] 100 unit/mL (3 mL) Insulin Pen 50 unit subcut BID Qty: 15 0RF insulin aspart U-100 [Novolog Flexpen U-100 Insulin] 100 unit/mL (3 mL) Insulin Pen See Rx Instructions .ROUTE .COMPLEX Qty: 15 0RF Rx Instructions: 25 unit subcutaneously with each meal; adjust based on carbohydrate intake; also follow [facility] insulin resistant sliding scale to correct for hyperglycemia (DME) Keto-Diastix Strip See Rx Instructions .Route Qty: 50 0RF Rx Instructions: As directed (DME) blood-glucose meter Kit See Rx Instructions .ROUTE .MEDSUPPLY Qty: 1 0RF Rx Instructions: As directed (DME) Blood Glucose Test Strip See Rx Instructions .Route Qty: 50 1RF Rx Instructions: As directed Continued docusate sodium [DOK] 100 MG capsule 100 mg PO PRN medroxyprogesterone 150 MG/ML suspension 1 ml IM DIRECTED Label Comments: pt does not recall when last shot was or if she's due for another lorazepam 1 MG tablet 1 mg PO TID lithium carbonate 300 mg Capsule 600 mg PO QAM Label Comments: per med list from [facility] 06/12/20 and per pt report acetaminophen 650 mg Tablet 650 mg PO Q4H PRN risperidone 4 mg tablet 4 mg PO HS Label Comments: TAKE (1) TABLET ORALLY EVERY DAY AT BEDTIME FOR PSYCHOSIS. melatonin 3 mg tablet 6 mg PO HS risperidone 1 mg tablet 1 mg PO QAM Label Comments: TAKE (1) TABLET ORALLY EVERY MORNING FOR mood/psychosis. benztropine 0.5 mg tablet 0.5 mg PO HS PRN (Reason: Extrapyramidal Effects/Symptoms) Label Comments: TAKE (1) TABLET ORALLY EVERY DAY AT BEDTIME ONLY WHEN NEEDED. hydroxyzine pamoate 25 mg capsule 25 mg PO HS Label Comments: TAKE (1) CAPSULE ORALLY EVERY DAY AT BEDTIME. albuterol sulfate 90 mcg/actuation Hfa Aerosol Inhaler 2 puff INHALATION QID PRN Discharge Instructions Instructions: Diabetic Ketoacidosis (DC), Hypoglycemia in a Person with Diabetes (DC), Diabetes Type 1: Management (DC) Additional Instructions: Monitor your blood sugars before meals and at bedtime, more often if you are having persistently elevated blood sugar readings or having frequent low glucose readings. Your goals are for fasting glucose of 90 to 110 mg/dL and all other glucose readings under 180 after eating. If you have persistently high glucose readings over 300 you should check your urine for ketones and if positive for ketones you should follow a plan for management of DKA including checking your sugars every 2 hours and giving yourself frequent Novolog injections to bring your glucose levels below 200 and until your urine ketones are negative. Return to the hospital for recurrent DKA. Please make an appointment to see the storeroom attendant at [facility]. Stand Alone Forms: Nursing Discharge Form Referrals: Jim Bartholomew [Primary Care Provider] - 09/01/21 4:00 pm () Activity:: Activity as Tolerated Equipment/Supplies:: Blood Glucose Monitor Diet:: Carb Counting Discharge Orders Discharge Orders: Discharge Order (Routine); Ordered 08/25/21 Ordered By: Ephraim Wolfe Discharge Data Discharge Date/Time-TO BE ENTERED AT DEPARTURE: 08/25/21 13:15 DS: Summary Time Spent with Patient providing and/or coordinating discharge services: Less than 30 minutes Status at Discharge Functional status at discharge: independent ambulation Overall status at discharge: patient is back to baseline Mental Status: mental status grossly normal Speech and Movement: speech and movement normal Mood: congruent mood Affect: normal affect Exam Psych Mental Status: mental status grossly normal Speech and Movement: speech and movement normal Mood: congruent mood Affect: normal affect DS: Data Vitals/I&O Vitals and I&O: Vital Signs Temperature 36.6 C 08/25/21 08:55 Temperature Source Tympanic 08/25/21 08:55 Pulse 70 08/25/21 08:55 Pulse Rhythm Regular 08/25/21 09:06 Pulse 122 H 08/18/21 15:36 Respiratory Rate 17 08/25/21 08:55 Respiratory Effort Non-Labored 08/25/21 09:06 Respiratory Depth Deep 08/25/21 09:06 Respiratory Pattern Normal 08/25/21 09:06 Blood Pressure 110/62 08/25/21 08:55 Blood Pressure Mean 77 08/20/21 07:55 Blood Pressure Position Supine 08/18/21 13:45 Pulse Oximetry 96 08/25/21 08:55 Oxygen Delivery Method Room Air 08/25/21 08:55 Oxygen Flow Rate 0 08/25/21 08:55 Pain Level 5 08/24/21 16:34 Comment 08/24/21 07:14 Intake & Output 08/24/21 08/25/21 08/25/21 23:59 11:59 23:59 Intake Total 1180 / 1550 1210 / 1210 Balance 1180 / 1550 1210 / 1210 Weight 145.8 kg Intake: IV Oral 1170 / 1540 1200 / 1200 Other: Urine Color Pale Yellow Urine Appearance Clear Clear Urine Odor None Normal Voiding Methods Toilet Toilet PFSH All Active Problems (Updated 08/26/21 @ 00:04 by GEORGE DONG) Diabetic neuropathy associated with type 1 diabetes mellitus (Acute) Suicidal ideation (Acute) Medical History BMI 45.0-49.9, adult Celiac disease Contraception management Depo Provera since 2012. 08/2015 Requests Nexplanon. Exercise-induced asthma Paranoid type schizophrenia, chronic state Adult onset. Controlled on meds. Tobacco use Surgical History repair of lacerated finger tendon L hand Family History hx of family mental illness Schizophrenia Mother Stroke Social History Smoking/Tobacco Use Status: Current every day Smoking risk assessment performed?: Yes Drug use: Never Substance use type: does not use Do you feel safe at home: No Do you feel safe in your relationship?: No
--- NOTE | 2021-08-25 12:45 | PDOC.HHF2F ---
Home Health Certification Home Health Certification: 1. Encounter Date and Reason I certify that Mary Grace Harris was seen by Ephraim Wolfe on 08/25/21 and that I had a [id number] encounter with this patient that meets the physician face to face encounter requirements. 2. Clinical Findings Supporting Skilled Need and Homebound Status I certify that home health services are medically necessary, include either intermittent [facility] and/or physical/speech therapy, and that this patient is homebound in that absences from the home require considerable and taxing effort and are infrequent or of short duration, or are attributable to the need to receive medical care. [X] (a) Attached documentation from encounter provides clinical findings supporting skilled need and homebound status (including what assistance patient requires to leave the home). The encounter with the patient was in whole, or in part, for the following medical condition, which is the primary reason for home health care: DKA with new Onset Insulin-Dependent Diebetes Longterm: Nursing to follow-up with the patient regarding diabetic management including education on monitoring blood sugar, monitoring for signs and symptoms of DKA, monitoring for signs and symptoms of hypoglycemia as well as ensuring that the patient is properly injecting her insulin. Nursing to coordinate with the patient's PCP regarding any change in medications or follow-up labs that are needed. Physical Therapy: Speech Therapy: Homebound: Patient's recent hospitalization for DKA is led to her weakness and diabetic neuropathy which limits her ability to leave her home to seek medical care. 3. Certification and Authentication I certify that I composed the above information based on my clinical judgement relating to this patient's medical condition and, if applicable, clinical findings communicated to me by the NPP or inpatient physician who performed the Home Health Referral. All further orders will be obtained through ____Dr. Jim Yan (Community Based Physician - PCP)
== END 2021-08-25 13:15 | disposition home health service (06) | DRG 638 ==
LOC: ICU 08-20 18:34 → MS 08-20 18:35
PROVIDERS: Family Medicine; General Practice; Internal Medicine; Admitting Provider Family Medicine; PCP Family Medicine; Visit Provider Family Medicine
DX: E10.10 Type 1 diabetes mellitus with ketoacidosis without coma (principal); F20.0 Paranoid schizophrenia; Z68.43 Body mass index [BMI] 50.0-59.9, adult; E10.42 Type 1 diabetes mellitus with diabetic polyneuropathy; E87.6 Hypokalemia; R11.2 Nausea with vomiting, unspecified; K90.0 Celiac disease; F17.210 Nicotine dependence, cigarettes, uncomplicated; J45.990 Exercise induced bronchospasm; E66.01 Morbid (severe) obesity due to excess calories; D72.829 Elevated white blood cell count, unspecified; E83.39 Other disorders of phosphorus metabolism; M79.662 Pain in left lower leg; M79.661 Pain in right lower leg
CPT/HCPCS: 36415; 80048; 80061; 82805; 82947; 84145; 87635; J1650; 71045; 80178; 81003; 81015; 83036; 83735; 84100; 85025; 85049; 93970; 99223; 99231; 99232; 99233; 99238; 99291; J3480; J3490